=== PATIENT | female | born 1960 | race African-American/Black ===

== ENCOUNTER 2017-09-07 16:31 | Emergency (ER) | payer MEDICAID, SELFPAY ==
[2017-09-07 16:32] VITALS: BP 189/122; PULSE 77; RESP 16; TEMP 36.7; O2SAT 100; BMI 31.4
--- NOTE | 2017-09-07 17:07 | EKG12_ITS ---
Test Reason : Blood Pressure : / mmHG Vent. Rate : 069 BPM Atrial Rate : 069 BPM P-R Int : 176 ms QRS Dur : 080 ms QT Int : 416 ms P-R-T Axes : 063 007 052 degrees QTc Int : 445 ms Normal sinus rhythm Normal ECG Confirmed by ZONIA WOO, TO ([id number]), editorial specialist ROB BOWER ([id number]) on 09/10/2017 1:45:31 PM Referred By: CARMELA Confirmed By:TO BRAR MD
[2017-09-07 17:08] VITALS: BP 145/96
--- NOTE | 2017-09-07 17:11 | ED.DCSUM_ITS ---
- ER Visit Summary Date of Service: 09/07/17 Chief Complaint: Dehydrated and low iron History of Present Illness: The patient is a 57 F with history of iron deficiency anemia and chronic pain who presents complaining of dehydration and multiple complaints. She states that she has had fatigue, is seeing stars, having dry lips, dizzy and jittery, and had muscle spasm starting in her hands and radiating into the legs and pelvis. This occurred after she drink frazier juice while preparing for a urine drug test. She also changed her buprenorphine pain patch today that she uses for chronic pain. She denies any fever, chest pain, shortness of breath, nausea or vomiting. She thinks the symptoms are related to anemia. Physical Examination: Vital signs: afebrile, hemodynamically stable, no hypoxia on room air General: well nourished, well developed, in no distress speech is slow and mildly slurred Skin: warm, dry, no rash, no pallor HEENT: normocephalic and atraumatic; PERRL, EOMI, moist mucous membranes Cardiovascular: regular rate and rhythm without murmurs, no peripheral edema, 2 + pulses all distal extremities Respiratory: No increased work of breathing, lungs are clear to auscultation bilaterally, no rales, rhonchi or wheezing Abdominal: Abdomen is soft, nontender with normoactive bowel sounds, no guarding or rebound, no masses MSK: Moves all extremities, no deformities, normal strength Neuro: Awake and alert, oriented ?4. No facial droop, sensation and motor function intact and symmetric, no focal neuro deficits Test Results: Abnormal Lab Results 09/07/17 09/07/17 09/07/17 17:55 18:00 18:00 WBC 5.2 RBC 4.70 Hgb 13.1 Hct 39.1 MCV 83.2 MCH 27.9 MCHC 33.5 RDW 14.8 H RDW Differential 44.9 H Plt Count 220 MPV 9.8 Immature Gran % (Auto) 0.200 Neut % (Auto) 51.3 Lymph % (Auto) 39.7 [place] % (Auto) 7.5 Eos % (Auto) 1.1 Baso % (Auto) 0.2 Absolute Neuts (auto) 2.7 Absolute Lymphs (auto) 2.07 Total Counted Not Reportable Sodium 130 L Potassium 3.7 Chloride 98 Carbon Dioxide 24.0 Anion Gap 8 BUN 9 Creatinine 1.01 Estim Creat Clear Calc 57.53 Est GFR (MDRD) Af Amer 73 Est GFR (MDRD) Non-Af 60 BUN/Creatinine Ratio 8.9 L Glucose 109 H Calcium 9.1 Magnesium 1.9 Total Bilirubin 0.40 AST 19 ALT 22 Alkaline Phosphatase 141 H Troponin I < 0.02 Total Protein 7.3 Albumin 3.7 Globulin 3.6 Albumin/Globulin Ratio 1.0 TSH 0.76 Urine Color Urine Clarity Urine pH Ur Specific [place] Urine Protein Urine Glucose (UA) Urine Ketones Urine Occult Blood Urine Nitrite Urine Bilirubin Urine Urobilinogen Ur Leukocyte Esterase Urine RBC Urine WBC Ur Squamous Epith Cells Urine Bacteria Urine Mucus Urine Yeast Urine Opiates Screen Urine Methadone Screen Ur Barbiturates Screen Ur Phencyclidine Scrn Ur Amphetamines Screen U Methamphetamin-MDMA U Benzodiazepines Scrn Urine Cocaine Screen U Cannabinoids Screen Ur Drug Screen Comment POC Glucose 125 H 09/07/17 09/07/17 18:47 18:47 WBC RBC Hgb Hct MCV MCH MCHC RDW RDW Differential Plt Count MPV Immature Gran % (Auto) Neut % (Auto) Lymph % (Auto) [place] % (Auto) Eos % (Auto) Baso % (Auto) Absolute Neuts (auto) Absolute Lymphs (auto) Total Counted Sodium Potassium Chloride Carbon Dioxide Anion Gap BUN Creatinine Estim Creat Clear Calc Est GFR (MDRD) Af Amer Est GFR (MDRD) Non-Af BUN/Creatinine Ratio Glucose Calcium Magnesium Total Bilirubin AST ALT Alkaline Phosphatase Troponin I Total Protein Albumin Globulin Albumin/Globulin Ratio TSH Urine Color Yellow Urine Clarity Clear Urine pH 6.0 Ur Specific [place] 1.010 Urine Protein Negative Urine Glucose (UA) Normal Urine Ketones Negative Urine Occult Blood Negative Urine Nitrite Negative Urine Bilirubin Negative Urine Urobilinogen Normal Ur Leukocyte Esterase 25 H Urine RBC 0 SEEN Urine WBC 0-5 SEEN Ur Squamous Epith Cells 0-5 SEEN Urine Bacteria 0 SEEN Urine Mucus 0 SEEN Urine Yeast 1+ Urine Opiates Screen NEGATIVE Urine Methadone Screen NEGATIVE Ur Barbiturates Screen NEGATIVE Ur Phencyclidine Scrn NEGATIVE Ur Amphetamines Screen NEGATIVE U Methamphetamin-MDMA NEGATIVE U Benzodiazepines Scrn NEGATIVE Urine Cocaine Screen NEGATIVE U Cannabinoids Screen NEGATIVE Ur Drug Screen Comment POC Glucose Emergency Department Course and Treatment: Patient is presenting with multiple vague complaints. She was given IV hydration and had improvement in her symptoms. Labs showed mild hyponatremia but she did receive normal saline. No electrolyte derangements otherwise. No anemia. Urine was negative for infection and tox screen was negative. TSH within normal limits. EKG showed no ischemic changes and no ectopy. Troponin negative. Patient is on multiple pain medications for chronic pain, thus I suspect this is the cause of her slow speech. Patient was feeling much better on reevaluation after receiving the IV fluids and felt well enough to go home. She is to follow-up with her doctor. She had no episodes of muscle cramping while in the emergency department. Patient discharged home. Treatment Plan: [] Disposition: [] Impression: Muscle cramping, general malaise This note was generated with Lono dictation software. It may contain incorrect words, spelling, and punctuation that were not noted in review of the chart prior to signing ED Disposition - Plan for ED Patient: Disposition: Home or Assisted Living Chief Complaint: General Illness Instructions: ED Dehydration, ED Spasm Muscle Referrals: Ahmet Nielson MD [NON-STAFF] - 1-2 Days if not improving Additional Instructions: You were evaluated today in the emergency department because she felt dehydrated and had muscle cramps and spasms. Your workup showed no concerning findings, with your blood work being normal including your hemoglobin. There is no sign of anemia. Please drink plenty of fluids to stay hydrated. You may use ibuprofen or Tylenol as needed for pain and muscle cramps. Please return if you have any worsening of your symptoms. Follow-up with your doctor if you are not improving in 1-2 days.
[2017-09-07] MEDS: 0.9% Normal Saline 1,000 ML 1000 ML IV (17:59)
[2017-09-07 18:06] LABS: Bedside Glucose 125 mg/dL (70-110)
[2017-09-07 18:13] VITALS: RESP 16
[2017-09-07 18:13] LABS: Absolute Lymphocyte Count 2.07 X10^3/ul (0.83-4.51); Absolute Neutrophil Count 2.7 X10^3/uL (2.0-7.7); Basophil# 0.01 X10^3/uL; Basophil% 0.2 % (0-1); Eosinophil# 0.06 X10^3/uL; Eosinophils% 1.1 % (0-5); Hematocrit 39.1 % (37-47); Hemoglobin 13.1 g/dl (12.0-15.0); Lymphocyte # 2.07 X10^3/ul (4.0); Lymphocyte % 39.7 % (19-41); Mean Corp Hgb Conc 33.5 g/gl (32-36); Mean Corpuscular Hgb 27.9 pg (27.0-32.0); Mean Corpuscular Volume 83.2 fL (81-99); Mean Platelet Vol. 9.8 fl (6.2-12.0); Monocyte# 0.39 X10^3/uL; Monocyte% 7.5 % (0-10); Neutrophil # 2.68 X10^3/uL (2.7-7.7); Neutrophil % 51.3 % (47-70); POSITIVE COUNT NO; POSITIVE DIFFERENTIAL NO; POSITIVE MORPHOLOGY NO; Platelet Count 220 K/mm3 (150-450); RBC Distribution Width CV 14.8 % (11.6-14.6); RBC Distribution Width SD 44.9 fl (35.1-43.9); White Blood Count 5.2 K/mm3 (4.4-11.0)
[2017-09-07 18:52] LABS: AST(SGOT) 19 U/L (15-37); Alanine Aminotransfer ALT/SGPT 22 U/L (13-56); Albumin, Serum 3.7 g/dL (3.2-5.0); Alkaline Phosphatase 141 U/L (45-117); Anion Gap 8 (5-15); BUN 9 mg/dL (7-18); BUN/Creat Ratio 8.9 RATIO (10-20); Calcium,Total 9.1 mg/dL (8.5-10.1); Chloride 98 mmol/L (98-107); Creatinine, Serum 1.01 mg/dL (0.55-1.02); EST Glomerular Filtration Rate 60 mL/min (>60); Est Glom Filt Rate - Afr Amer 73 mL/min (>60); Estimated Creatinine Clearance 57.53 ml/min; Globulin 3.6 g/dL (2.2-4.2); Glucose 109 mg/dL (74-106); Magnesium 1.9 mg/dL (1.6-2.6); Potassium 3.7 mmol/L (3.5-5.1); Protein, Total 7.3 g/dL (6.4-8.2); Sodium Level 130 mmol/L (136-145); Thyroid Stim Hormone (TSH) 0.76 uIU/mL (0.358-3.74)
[2017-09-07 18:53] LABS: Bacteria 0 SEEN /hpf (None Seen); Mucous, Urine 0 SEEN /hpf (<or=2+); Red Blood Cells-Urine 0 SEEN /hpf (0-5)
[2017-09-07 18:56] LABS: Color, Urine Yellow (Yellow); Glucose, Dipstick Normal (Normal); Ketone-Dipstick Negative (Negative); Leukocyte Esterase-Dipstick 25 /ul (Negative); Nitrite-Dipstick Negative (Negative); Occult Blood-Urine Negative /ul (Negative); Protein-Dipstick Negative (Negative); Urine Bilirubin Dipstick Negative (Negative); Urine Clarity Clear (Clear); Urine Urobilinogen Normal (Normal)
[2017-09-07 19:07] LABS: Squamous Epithelial Cells - UA 0-5 SEEN /hpf (5-10)
[2017-09-07 19:09] LABS: White Blood Cells 0-5 SEEN /hpf (0-5); Yeast-Urine 1+ /hpf (None Seen)
[2017-09-07 19:15] LABS: Amphetamine Urine VISTA NEGATIVE (<1000 ng/mL); Barbiturate Urine VISTA NEGATIVE (< 200 ng/mL); Benzodiazepine Urine VISTA NEGATIVE (< 200 ng/mL); Cocaine Urine VISTA NEGATIVE (< 300 ng/mL); Ecstacy Urine VISTA NEGATIVE (< 500 ng/mL); Methadone Urine VISTA NEGATIVE (< 300 ng/mL); PCP Urine VISTA NEGATIVE (< 25 ng/mL); THC Urine VISTA NEGATIVE (< 50 ng/mL); Vista UDS pH Range 5
--- NOTE | 2017-09-07 19:52 | ED.DEP ---
ED Disposition - Plan for ED Patient: Disposition: Home or Assisted Living Chief Complaint: General Illness Instructions: ED Spasm Muscle, ED Dehydration Referrals: Ahmet Nielson MD [NON-STAFF] - 1-2 Days if not improving Additional Instructions: You were evaluated today in the emergency department because she felt dehydrated and had muscle cramps and spasms. Your workup showed no concerning findings, with your blood work being normal including your hemoglobin. There is no sign of anemia. Please drink plenty of fluids to stay hydrated. You may use ibuprofen or Tylenol as needed for pain and muscle cramps. Please return if you have any worsening of your symptoms. Follow-up with your doctor if you are not improving in 1-2 days.
[2017-09-07 20:03] VITALS: BP 133/86; PULSE 71; RESP 18; O2SAT 95
== END 2017-09-07 20:04 | disposition home or self-care (01) ==
PROVIDERS: Emergency Provider Emergency Medicine; Family Provider Family Medicine; PCP Family Medicine
DX: R25.2 Cramp and spasm (principal); R53.81 Other malaise; D50.9 Iron deficiency anemia, unspecified; E87.1 Hypo-osmolality and hyponatremia; G89.29 Other chronic pain; Z72.0 Tobacco use; Z79.899 Other long term (current) drug therapy
CPT/HCPCS: 80053; 80307; 81001; 82962; 83735; 84443; 84484; 85025; 93005; 96360; 96361; 99283; J7030; A4216

== ENCOUNTER 2017-10-11 14:00 | Outpatient (RCR) | payer MEDICAID, SELFPAY ==
--- NOTE | 2017-03-25 16:21 | HP.PTEVAL_ITS ---
Patient's Visit Information NORY GASTON is a 57 year old F referred to Physical Therapy by Minda Woods with a diagnosis of Degenerative Lumbar Spinal Stenosis. Date of Evaluation: 03/25/17 Physical Therapist: Aura Karimi, PT - Visit Plan Frequency: 2x /Week Duration: 5 weeks Plan: First session on land to trial strengthening exercises and TENS. Patient wants to pursue home TENS unit. Therapeutic exercises and activities to target BLE, core and low back strength. Exercises and activities also to target postural training, flexibility and endurance in an aquatic setting. Modalities/ Manual PRN. Incorporate HEP to promote independence and maintainence. - Subjective Subjective: Patient presents in therapy today with chief complaint of low back, right hip and knee pain that has been going on for years but pain has become constant that she decided to go doctor. States she always aches and pain never goes away. She states it is worse when she is standing or in a position too long. Reports numbness and tingling in bilateral feet, right > left. Patient recently passed out at [employer] from standing too long and hurt tailbone. Patient states she has gone to PT prior and loved pool therapy. She takes pain medication to help relieve the pain. She also saw chiropractor to help relieve pain but has discontinued. Had x-ray showing degeneration of spine. PMHx: Unremarkable - Pain low back Pain Intensity (Out of 10): 9 right hip Pain Intensity (Out of 10): 7 right knee Pain Intensity (Out of 10): 7 - Objective Posture: Sitting slouched in chair with increase posterior pelvic; Static standing weight shifted onto LLE. Palpation/Appearance: Tenderness to palpation along right medial knee, right hip at greater trochanter, tenderness to palpation along L4-L5 area. Range of Motion: lumbar flexion min limitation ( pain returning to neutral), mod limitation extension, bilateral side bend min limitation, bilateral rotation min limitation; BLE WNL except right knee 5-105 ( left 0-120*). Strength: Patient refuse to have MMT performed to RLE grossly 3/ 5 strength; LLE grossly 4+/5 strength except hip extension 4-/5 and hip abduction 4/5; core strength 3/5. Flexibility: Moderate tightness of bilateral hamstrings. Sensation: Intact to light touch. Patient adament on getting home TENS unit and having pool therapy. She did not want to perform various of evaluation tests and became frustrated toward end of session when told she would not be getting unit today. She did attempt repeated extension which she reported felt good and helped decrease pain - Goals Goal 1:: Patient will increase BLE and core strength by 1 muscle grade for improved performance with functional activities Goal Time Frame: 4-6 Weeks Goal 2:: Patient will increase painfree, lumbar motion in all planes for improved mobility Goal Time Frame: 4-6 Weeks Goal 3:: Patient will increase right knee ROM to match L for improved mobility Goal Time Frame: 4-6 Weeks Goal 4:: Patient will maintain upright sitting and standing posture for 3 minutes Goal Time Frame: 4-6 Weeks Goal 5:: Patient will be independent with HEP Goal Time Frame: 4-6 Weeks - Rehabilitation Potential Physical Therapy Diagnosis: Muscle Weakness, Limited Range of Motion, Impaired Mobility Rehabilitation Potential: Fair - Anticipated Interventions Patient/Client Instruction: Educate patient on: Condition, Plan of Care For the Purpose of:: To decrease pain, To decrease swelling/inflammation, To increase ROM, To improve muscle performance and motor function, To improve ability of physical actions for home/community/work/leisure, To improve gait and locomotor functions, To increase flexibility/ROM, To improve endurance, To improve balance Therapeutic Exercise to Include: Strength training, Endurance training, Body mechanics, Postural training, Flexibilty training, Gait and locomotor training, In an aquatic setting, Passive ROM, Active ROM, Dynamic Lumbar Stabilization For the Purpose of:: To increase ROM, To improve muscle performance and motor function, To improve ability of physical actions for home/community/work/leisure , To improve gait and locomotor functions, To increase flexibility/ROM, To improve endurance, To improve balance Functional Training to Include: ADL Training For the Purpose of:: To improve ability of physical actions for home/community/ work/leisure Comment: massage not covered For the Purpose of:: To decrease pain, To decrease swelling/inflammation, To increase ROM Iontophoresis (with Dexamethozone, with Acetic acid): No TENS: Yes For the Purpose of:: To decrease pain, To decrease swelling/inflammation, To increase ROM Thank you for the opportunity to evaluate your patient. For Medicare and Medicare HMO plans, please review the plan of care and approve it. It will need to be FAXED BACK to us at [phone] for Medicare purposes. Please let me know if there are questions or concerns regarding this plan of care. Physician Signature: Date:
--- NOTE | 2017-07-01 10:42 | HP.PTREVAL_ITS ---
Minda Woods, It has been my pleasure to treat NORY GASTON over the last 13 visits for Degenerative Lumbar Spinal Stenosis. Please see the progress note below for an update on the physical therapy plan of care! Subjective: Pt reports aquatic therapy is really helping her, but she has had some episodes of dizziness lately. Dr wants pt to be assessed for vestibular issues. Objective/Function: LBP and extremity pain have continued to decrease with the use of AT. Pt is able to stand and sit for longer periods of time now with out having to change positions. B LE strength is rated at 4+/5 throughout. L/S ROM is still moderately limited. Pt is progressing well with increasing functional activity, but is still limited by pain Plan Plan: Assess vestibular system per . orders next Rx Goals Goal 1:: Patient will increase BLE and core strength by 1 muscle grade for improved performance with functional activities Goal Time Frame: 4-6 Weeks Goal Progress: Progressing Goal 2:: Patient will increase painfree, lumbar motion in all planes for improved mobility Goal Time Frame: 4-6 Weeks Goal Progress: Progressing Goal 3:: Patient will increase right knee ROM to match L for improved mobility Goal Time Frame: 4-6 Weeks Goal Progress: Progressing Goal 4:: Patient will maintain upright sitting and standing posture for 3 minutes Goal Time Frame: 4-6 Weeks Goal Progress: Progressing Goal 5:: Patient will be independent with HEP Goal Time Frame: 4-6 Weeks Goal Progress: Progressing Anticipated Interventions Patient/Client Instruction: Educate patient on: Condition, Plan of Care For the Purpose of:: To decrease pain, To decrease swelling/inflammation, To increase ROM, To improve muscle performance and motor function, To improve ability of physical actions for home/community/work/leisure, To improve gait and locomotor functions, To increase flexibility/ROM, To improve endurance, To improve balance Therapeutic Exercise to Include: Strength training, Endurance training, Body mechanics, Postural training, Flexibilty training, Gait and locomotor training, In an aquatic setting, Passive ROM, Active ROM, Dynamic Lumbar Stabilization For the Purpose of:: To increase ROM, To improve muscle performance and motor function, To improve ability of physical actions for home/community/work/leisure , To improve gait and locomotor functions, To increase flexibility/ROM, To improve endurance, To improve balance Functional Training to Include: ADL Training For the Purpose of:: To improve ability of physical actions for home/community/ work/leisure Comment: massage not covered For the Purpose of:: To decrease pain, To decrease swelling/inflammation, To increase ROM Iontophoresis (with Dexamethozone, with Acetic acid): No TENS: Yes For the Purpose of:: To decrease pain, To decrease swelling/inflammation, To increase ROM Please do not hesitate to contact me at [phone] by phone or Fax: if you have questions or concerns regarding this new plan of care! Sincerely, Gray Pacheco, PT,
--- NOTE | 2017-07-21 09:48 | HP.PTREVAL_ITS ---
Minda Woods, It has been my pleasure to treat NORY GASTON over the last 14 visits for Degenerative Lumbar Spinal Stenosis. Please see the progress note below for an update on the physical therapy plan of care! Subjective: new script received for dizzyness. Has h/o dizzy and passing out but this is different. This dizzyness is spacey. This is a levitation dizzyness, not a passing out. It occurs sitting and has been happeneing for 3 months and started without reason. Had blood tests which were OK. Had MRI of brain which was OK. Does not describe spinning but whooa It lasts for seconds to minutes. When it goes away, it is gone but can be off balance for a little while. Hard to tell what precipitates it. Is anemic and can pass out at times. This dizzyness happens daily 2-3 x or 1-2x week. Can happen when she is just sitting on the couch doing nothing. Needs to sit down when it happens. Has not fallen in over a year. Has cane and walker but does nto use it all the time, she can tell when she needs it. Sleep: is OK as far as dizzyness goes, has insomnia and takes meds. Not employed but takes care of 5 yo grandson. Dizzyness can make this challenging at times. Objective/Function: Pt ambulates into PT slow but I, transfers I, steps are reciprocal with two rails and slow. C/S AROM is WFL and no c/o pain. pt is slow to answer and respond to commands. - B hallpike and - roll test. Oculomotor: no nystagmus with gaze or headshake. pursuit, saccades adn vOR all appear christal, albeit slow VOR before VC but no symptoms. - head thrust. VOR walking is safe and I. Plan Plan: No vestibular PT needed. Pt wishes to take Alberto off and reinitiate approp therapy(and will recheck with) Gray for pool or land instruction. Goals Goal 1:: Patient will increase BLE and core strength by 1 muscle grade for improved performance with functional activities Goal Time Frame: 4-6 Weeks Goal Progress: Progressing Goal 2:: Patient will increase painfree, lumbar motion in all planes for improved mobility Goal Time Frame: 4-6 Weeks Goal Progress: Progressing Goal 3:: Patient will increase right knee ROM to match L for improved mobility Goal Time Frame: 4-6 Weeks Goal Progress: Progressing Goal 4:: Patient will maintain upright sitting and standing posture for 3 minutes Goal Time Frame: 4-6 Weeks Goal Progress: Progressing Goal 5:: Patient will be independent with HEP Goal Time Frame: 4-6 Weeks Goal Progress: Progressing Anticipated Interventions Patient/Client Instruction: Educate patient on: Condition, Plan of Care For the Purpose of:: To decrease pain, To decrease swelling/inflammation, To increase ROM, To improve muscle performance and motor function, To improve ability of physical actions for home/community/work/leisure, To improve gait and locomotor functions, To increase flexibility/ROM, To improve endurance, To improve balance Therapeutic Exercise to Include: Strength training, Endurance training, Body mechanics, Postural training, Flexibilty training, Gait and locomotor training, In an aquatic setting, Passive ROM, Active ROM, Dynamic Lumbar Stabilization For the Purpose of:: To increase ROM, To improve muscle performance and motor function, To improve ability of physical actions for home/community/work/leisure , To improve gait and locomotor functions, To increase flexibility/ROM, To improve endurance, To improve balance Functional Training to Include: ADL Training For the Purpose of:: To improve ability of physical actions for home/community/ work/leisure Comment: massage not covered For the Purpose of:: To decrease pain, To decrease swelling/inflammation, To increase ROM Iontophoresis (with Dexamethozone, with Acetic acid): No TENS: Yes For the Purpose of:: To decrease pain, To decrease swelling/inflammation, To increase ROM Please do not hesitate to contact me at [phone] by phone or Fax: if you have questions or concerns regarding this new plan of care! Sincerely, Randall Stephen, DPT, OC
--- NOTE | 2017-11-03 14:45 | HP.PTDCNRP_ITS ---
HP - Discharge Summary (1) - Patient Information NORY GASTON was seen in my office for initial evaluation on 03/25/17. The following Plan of Care was established for this patient: Initial Frequency: 2x /Week Initial Duration: 5 weeks - Anticipated Interventions Patient/Client Instruction: Educate patient on: Condition, Plan of Care For the Purpose of:: To decrease pain, To decrease swelling/inflammation, To increase ROM, To improve muscle performance and motor function, To improve ability of physical actions for home/community/work/leisure, To improve gait and locomotor functions, To increase flexibility/ROM, To improve endurance, To improve balance Therapeutic Exercise to Include: Strength training, Endurance training, Body mechanics, Postural training, Flexibilty training, Gait and locomotor training, In an aquatic setting, Passive ROM, Active ROM, Dynamic Lumbar Stabilization For the Purpose of:: To increase ROM, To improve muscle performance and motor function, To improve ability of physical actions for home/community/work/leisure , To improve gait and locomotor functions, To increase flexibility/ROM, To improve endurance, To improve balance Functional Training to Include: ADL Training For the Purpose of:: To improve ability of physical actions for home/community/ work/leisure Comment: massage not covered For the Purpose of:: To decrease pain, To decrease swelling/inflammation, To increase ROM Iontophoresis (with Dexamethozone, with Acetic acid): No TENS: Yes For the Purpose of:: To decrease pain, To decrease swelling/inflammation, To increase ROM This patient was last seen in our office . Pertinent comments regarding their Physical therapy will appear below: Pt was treated for 18 visits through the date of 10/11/17. Pt has not returned through todays date, and is therefore discontinued at this time. At this point I will be discontinuing this patient from physical therapy. I would be happy to see this patient again in the future if found appropriate by the physician. Thank you! Gray Pacheco, PT,
== END 2017-10-11 19:00 | disposition home or self-care (01) ==
LOC: PT 14:00
PROVIDERS: Family Provider Family Medicine; PCP Family Medicine; Visit Provider Family Medicine
DX: M48.061 Spinal stenosis, lumbar region without neurogenic claudication (principal); R42 Dizziness and giddiness
CPT/HCPCS: 97113; 97161; 97530; G8978; G8979

== ENCOUNTER → 2018-03-07 13:00 | Outpatient (CLI) | payer MEDICARE, MEDICAID, SELFPAY ==
[2018-03-07 13:58] LABS: Hematocrit 43.5 % (37-47); Hemoglobin 14.5 g/dl (12.0-15.0); Mean Corp Hgb Conc 33.3 g/gl (32-36); Mean Corpuscular Hgb 28.4 pg (27.0-32.0); Mean Corpuscular Volume 85.3 fL (81-99); Platelet Count 277 K/mm3 (150-450); RBC Distribution Width CV 15.6 % (11.6-14.6); RBC Distribution Width SD 48.8 fl (35.1-43.9); White Blood Count 4.2 K/mm3 (4.4-11.0)
[2018-03-07 14:10] LABS: Scan Indicated on CBC? Y/N NO
[2018-03-07 14:43] LABS: Vitamin B12 898 pg/mL (211-911)
[2018-03-07 14:50] LABS: Iron 84 ug/dL (50-170); Iron Binding Capacity,Total 377 ug/dL (250-450)
== END ==
PROVIDERS: Family Provider Nurse Practitioner Primary Care; PCP Nurse Practitioner Primary Care; Visit Provider Nurse Practitioner Primary Care
DX: D50.9 Iron deficiency anemia, unspecified (principal); E53.8 Deficiency of other specified B group vitamins; Z98.84 Bariatric surgery status
CPT/HCPCS: 36415; 82607; 82746; 83540; 83550; 85027

== ENCOUNTER → 2018-03-23 08:42 | Outpatient (CLI) | payer MEDICARE, MEDICAID, SELFPAY | PROVIDERS: Family Provider Nurse Practitioner Primary Care; PCP Nurse Practitioner Primary Care; Visit Provider Internal Medicine Gastroenterology | DX: R10.9 Unspecified abdominal pain (principal); K59.00 Constipation, unspecified | CPT/HCPCS: 74019 ==

== ENCOUNTER → 2018-04-21 15:53 | Outpatient (CLI) | payer MEDICARE, SELFPAY | PROVIDERS: Family Provider Nurse Practitioner Primary Care; PCP Nurse Practitioner Primary Care; Visit Provider Anesthesiology Pain Medicine | DX: F11.20 Opioid dependence, uncomplicated (principal) | CPT/HCPCS: 36415 ==

== ENCOUNTER → 2018-05-19 12:00 | Outpatient (CLI) | payer MEDICARE, SELFPAY ==
[2018-05-19 13:49] LABS: Iron Binding Capacity,Total 307 ug/dL (250-450)
[2018-05-19 14:16] LABS: Vitamin D,25 Hydroxy 51.2 ng/mL (29.95-100.01)
== END ==
PROVIDERS: Family Provider Nurse Practitioner Primary Care; PCP Nurse Practitioner Primary Care
DX: D50.9 Iron deficiency anemia, unspecified (principal); E55.9 Vitamin D deficiency, unspecified; Z98.84 Bariatric surgery status
CPT/HCPCS: 36415; 82306; 83550

== ENCOUNTER → 2019-02-20 08:59 | Outpatient (CLI) | payer MEDICARE, SELFPAY ==
[2019-02-20 08:55] VITALS: BMI 31.4
--- NOTE | 2019-02-20 09:00 | RAD_ITS ---
STUDY: X-RAY - RIGHT KNEE REASON FOR EXAM: Female, 59 years old. Pain, decreased range of motion TECHNIQUE: 4 view(s) of the knee. COMPARISON: None. FINDINGS: There is demineralization of the visualized distal femur. There is demineralization of the tibia and fibula. Normal proximal tibiofibular articulation. There is mild degenerative arthrosis of the medial femorotibial compartment. There is moderate degenerative arthrosis of the lateral femorotibial compartment with moderate joint space narrowing. There is mild degenerative arthrosis of the patellofemoral articulation. Nonspecific medial soft tissue swelling RAD/Knee 4 or More Views IMPRESSION: Degenerative arthrosis with medial soft tissue swelling no demonstrated fracture. Electronically Signed: Endy Jay MD at 9:27 EDT , Service support ,
--- NOTE | 2019-02-20 09:00 | RAD_ITS ---
STUDY: X-RAY - LEFT KNEE REASON FOR EXAM: Female, 59 years old. Pain, decreased range of motion TECHNIQUE: 3 view(s) of the knee. COMPARISON: None. FINDINGS: Normal visualized distal femur. Normal visualized proximal tibia and fibula. Normal proximal tibiofibular articulation. There is mild degenerative arthrosis of the medial femorotibial compartment. There is mild degenerative arthrosis of the lateral femorotibial compartment. There is mild degenerative arthrosis of the patellofemoral articulation. The soft tissue structures are unremarkable. RAD/Knee 4 or More Views IMPRESSION: Degenerative arthrosis. Electronically Signed: Endy Jay MD at 9:29 EDT , Service support ,
== END ==
PROVIDERS: Family Provider Nurse Practitioner Primary Care; PCP Nurse Practitioner Primary Care; Referring Provider Orthopaedic Surgery; Visit Provider Orthopaedic Surgery
DX: M25.561 Pain in right knee (principal); M25.562 Pain in left knee
CPT/HCPCS: 73564

== ENCOUNTER 2019-06-12 09:28 | Emergency (ER) | payer MEDICARE, MEDICAID, SELFPAY ==
[2019-02-20 08:55] VITALS: BMI 31.4
[2019-06-12 09:29] VITALS: BP 137/102; PULSE 109; RESP 18; TEMP 36.8; O2SAT 97; BMI 26.9
--- NOTE | 2019-06-12 09:59 | EKG12_ITS ---
Test Reason : SOB Blood Pressure : / mmHG Vent. Rate : 099 BPM Atrial Rate : 099 BPM P-R Int : 138 ms QRS Dur : 070 ms QT Int : 350 ms P-R-T Axes : 077 048 068 degrees QTc Int : 449 ms Normal sinus rhythm Possible Left atrial enlargement Borderline ECG Confirmed by DORIS WOO, FADUMO ([id number]), assistant production editor THALIA SPRINGER ([id number]) on 06/13/2019 1:51:28 PM Referred By: ROLY Confirmed By:FADUMO GEORGE MD
[2019-06-12 10:26] LABS: Absolute Lymphocyte Count 2.72 X10^3/uL (0.83-4.51); Absolute Neutrophil Count 3.8 X10^3/uL (2.0-7.7); Basophil# 0.05 X10^3/uL; Basophil% 0.7 % (0-1); Eosinophil# 0.12 X10^3/uL; Eosinophils% 1.6 % (0-5); Hematocrit 35.1 % (37-47); Lymphocyte # 2.72 X10^3/ul (4.0); Mean Corp Hgb Conc 31.3 g/dL (32-36); Mean Corpuscular Hgb 24.4 pg (27.0-32.0); Mean Platelet Vol. 9.3 fl (6.2-12.0); Monocyte# 0.66 X10^3/uL; NRBC Flagged by Analyzer 0 % (0-5); Neutrophil # 3.76 X10^3/uL (2.7-7.7); Neutrophil % 51.2 % (47-70); Platelet Count 313 K/mm3 (150-450); RBC Distribution Width SD 53.5 fl (35.1-43.9); White Blood Count 7.4 K/mm3 (4.4-11.0)
--- NOTE | 2019-06-12 10:26 | ED.VISSUMM ---
- ER Visit Summary Date of Service: 06/12/19 Chief Complaint: Black stools History of Present Illness: The patient is a 59 F who states she has a history of peptic ulcer disease. She had prior Dillon-en-Y gastric bypass surgery. She tells me that 3 days ago she had a normal brown bowel movement. Yesterday she had a formed movement that was black. She did not think much about it but then today while eating breakfast she had urgency went to the bathroom and had black tarry stool. She took a picture of it which appears to be more of a diarrheal stool than tarry. She states that she has been feeling fatigued and more short of breath than normal. She used to see a chamber worker at [place] but has not now for some time. Physical Examination: Afebrile vital signs are stable. Noted heart rate in triage on my examination 89. Gen: Well-nourished well-developed Head: Normocephalic atraumatic Eyes: Perrl EOMI ENT: TMs clear no rhinorrhea moist mucous membranes Neck: Supple no lymphadenopathy no JVD nontender CVS: Regular rate tachycardic rhythm no murmurs normal S1-S2 Respiratory: No distress clear to auscultation bilaterally chest nontender Abdomen: Soft nontender nondistended normal bowel sounds no masses Back: Nontender Extremity: Nontender no edema Skin: Normal color no rash Neuro: alert orientated ?3 CN II-XII intact normal strength sensation reflexes gait cerebellar Psych: Normal affect normal mood Test Results: EKG showed a sinus rhythm at a rate of 99. This does not appear unchanged from September 2017. Hemoglobin level is 11. BUN 24 creatinine 1.07. Normal coags. Troponin negative lactic acid 1.7. Emergency Department Course and Treatment: Orthostatics were negative. Stool was positive for blood. She said no bowel movement she is been here. She cannot tell me her medications. She cannot tell me when the last time she had blood work drawn was. She cannot tell me who her current doctor is but she tells me whoever that she does not want to go back and see them. I was able to find that approximately a month ago she was seen at [facility] and saw Dr. Pfeiffer. At that point she was on Protonix but not Carafate. As she most likely has an upper GI bleed she does appear stable with no need for transfusion and normal vital signs. I will add in Carafate asked that she have her hemoglobin level checked in [address] Valiente is asked on no doc list. Impression: 1. Stable upper GI bleed This note was generated with [employer] dictation software. It may contain incorrect words, spelling, and punctuation that were not noted in review of the chart prior to signing ED Disposition - Plan for ED Patient: Disposition: Home or Assisted Living Instructions: GI BLEED, Upper (Stable) Prescriptions: Sucralfate [Carafate] 1 gm PO 4X/DAY #56 tab Prescription Printed Referrals: Lisa Valiente DO [STAFF PHYSICIAN] - 2 Days Additional Instructions: You should have your hemoglobin level rechecked in 48 hours.
[2019-06-12] MEDS: 0.9% Normal Saline 1,000 ML 1000 ML IV (10:29)
[2019-06-12 10:43] LABS: AST(SGOT) 34 U/L (15-37); Alanine Aminotransfer ALT/SGPT 21 U/L (13-56); Albumin, Serum 3.3 g/dL (3.2-5.0); Alkaline Phosphatase 82 U/L (45-117); Anion Gap 7 (5-15); BUN 24 mg/dL (7-18); BUN/Creat Ratio 22.4 RATIO (10-20); Bilirubin, Direct 0.06 mg/dL (0.00-0.30); Calcium,Total 9.2 mg/dL (8.5-10.1); Chloride 108 mmol/L (98-107); Creatinine, Serum 1.07 mg/dL (0.55-1.02); EST Glomerular Filtration Rate 56 mL/min (>60); Est Glom Filt Rate - Afr Amer 67 mL/min (>60); Glucose 71 mg/dL (74-106); Lipase 126 U/L (73-393); Potassium 5.3 mmol/L (3.5-5.1); Protein, Total 7.3 g/dL (6.4-8.2); Sodium Level 137 mmol/L (136-145)
[2019-06-12 10:45] LABS: Lactic Acid 1.7 mmol/L (0.4-2.0)
[2019-06-12 11:21] LABS: International Normalized Ratio 1.1; Prothrombin Time (Protime)PT. 13.5 SECONDS (11.7-14.9)
[2019-06-12 11:29] VITALS: BP 115/89; PULSE 73; RESP 16; O2SAT 98
[2019-06-12 11:41] VITALS: BP 116/87; BP 122/96; BP 126/111; PULSE 105; PULSE 83; PULSE 93
[2019-06-12 12:51] VITALS: BP 137/66; PULSE 59; RESP 16; O2SAT 97
== END 2019-06-12 12:52 | disposition home or self-care (01) ==
PROVIDERS: Emergency Provider Emergency Medicine
DX: K92.2 Gastrointestinal hemorrhage, unspecified (principal); R06.02 Shortness of breath; R53.83 Other fatigue; I10 Essential (primary) hypertension; K21.9 Gastro-esophageal reflux disease without esophagitis; Z72.0 Tobacco use; Z79.899 Other long term (current) drug therapy; Z87.11 Personal history of peptic ulcer disease; Z98.84 Bariatric surgery status
CPT/HCPCS: 36415; 80048; 80076; 82274; 83605; 83690; 84484; 85025; 85610; 85730; 93005; 96360; 96361; 99285; J7030; A4216

== ENCOUNTER → 2019-07-05 12:55 | Outpatient (CLI) | payer MEDICARE, SELFPAY ==
[2019-06-12 09:29] VITALS: BMI 26.9
[2019-07-05 14:06] LABS: Absolute Lymphocyte Count 2.21 X10^3/uL (0.83-4.51); Absolute Neutrophil Count 1.4 X10^3/uL (2.0-7.7); Basophil# 0.03 X10^3/uL; Basophil% 0.7 % (0-1); Eosinophil# 0.24 X10^3/uL; Eosinophils% 5.6 % (0-5); Hemoglobin 11.1 g/dL (12.0-15.0); Lymphocyte # 2.21 X10^3/ul (4.0); Mean Corpuscular Hgb 23.4 pg (27.0-32.0); Mean Corpuscular Volume 77.9 fL (81-99); Mean Platelet Vol. 9.5 fl (6.2-12.0); Monocyte# 0.32 X10^3/uL; Monocyte% 7.5 % (0-10); NRBC Flagged by Analyzer 0 % (0-5); Neutrophil # 1.44 X10^3/uL (2.7-7.7); POSITIVE MORPHOLOGY YES; Platelet Count 327 K/mm3 (150-450); RBC Distribution Width CV 20.2 % (11.6-14.6); RBC Distribution Width SD 55.4 fl (35.1-43.9); Red Blood Count 4.75 M/mm3 (4.2-5.4); White Blood Count 4.3 K/mm3 (4.4-11.0)
[2019-07-05 14:08] LABS: Differential Indicated SCAN CRITERIA MET
[2019-07-05 14:31] LABS: Anisocytosis 1+
[2019-07-05 14:33] LABS: ALB/GLOB Ratio 1.1 RATIO (0.9-2.4); AST(SGOT) 14 U/L (15-37); Alanine Aminotransfer ALT/SGPT 17 U/L (13-56); Albumin, Serum 3.5 g/dL (3.2-5.0); Alkaline Phosphatase 99 U/L (45-117); Anion Gap 5 (5-15); BUN 10 mg/dL (7-18); BUN/Creat Ratio 10.9 RATIO (10-20); Calcium,Total 9.3 mg/dL (8.5-10.1); Chloride 109 mmol/L (98-107); Creatinine, Serum 0.92 mg/dL (0.55-1.02); EST Glomerular Filtration Rate 67 mL/min (>60); Est Glom Filt Rate - Afr Amer 80 mL/min (>60); Ferritin 8 ng/mL (8-252); Free T3 2.6 pg/mL (2.18-3.98); Globulin 3.3 g/dL (2.2-4.2); Glucose 83 mg/dL (74-106); Iron 20 ug/dL (50-170); Protein, Total 6.8 g/dL (6.4-8.2); Sodium Level 141 mmol/L (136-145); T4 Free Direct 1.12 ng/dL (0.76-1.46); Thyroid Stim Hormone (TSH) 0.93 uIU/mL (0.358-3.74)
[2019-07-05 14:43] LABS: Vitamin D,25 Hydroxy 86.6 ng/mL (29.95-100.01)
[2019-07-10 16:29] LABS: T3 Reverse 13.9 ng/dL (9.2-24.1)
== END ==
PROVIDERS: Referring Provider Psychiatry & Neurology Psychiatry; Visit Provider Psychiatry & Neurology Psychiatry
DX: F41.1 Generalized anxiety disorder (principal); Z79.899 Other long term (current) drug therapy
CPT/HCPCS: 36415; 80053; 82306; 82728; 83540; 83735; 84439; 84443; 84481; 84482; 85025

== ENCOUNTER → 2019-08-14 13:00 | Outpatient (CLI) | payer MEDICARE, SELFPAY ==
[2019-07-24 12:04] VITALS: BMI 25.3
[2019-08-14 14:35] LABS: Amphetamine Urine VISTA POSITIVE (<1000 ng/mL); Barbiturate Urine VISTA NEGATIVE (< 200 ng/mL); Benzodiazepine Urine VISTA POSITIVE (< 200 ng/mL); Cocaine Urine VISTA NEGATIVE (< 300 ng/mL); Ecstacy Urine VISTA NEGATIVE (< 500 ng/mL); Methadone Urine VISTA NEGATIVE (< 300 ng/mL); PCP Urine VISTA NEGATIVE (< 25 ng/mL); THC Urine VISTA NEGATIVE (< 50 ng/mL); Vista UDS pH Range 6
== END ==
PROVIDERS: Referring Provider Anesthesiology Pain Medicine; Visit Provider Anesthesiology Pain Medicine
DX: F11.20 Opioid dependence, uncomplicated (principal)
CPT/HCPCS: 80307

== ENCOUNTER → 2020-01-01 12:15 | Outpatient (CLI) | payer MEDICARE, MEDICAID, SELFPAY ==
[2019-09-07 08:44] VITALS: BMI 27.2
--- NOTE | 2020-01-01 12:44 | RAD_ITS ---
STUDY: X-RAY - LEFT SHOULDER REASON FOR EXAM: Female, 59 years old. LEFT SHOULDER PAIN -- PT STATES PREVIOUS CLAVICLE FRACTURE AND SHOULDER DISLOCATION -- CONTINUED PAIN, LIMITED ROM TECHNIQUE: 3 view(s) of the shoulder on 4 images. COMPARISON: None. FINDINGS: Normal glenohumeral articulation. Normal acromioclavicular joint. Normal acromion. Mild, well-corticated focal depression at the lateral humeral head near the greater tuberosity may be an old impaction injury. Normal visualized proximal humerus. The soft tissue structures are unremarkable. There is no demonstrated osseous destructive lesion or acute fracture. Normal visualized pulmonary apex. RAD/Shoulder min 2 Views IMPRESSION: Possible old impaction injury at the lateral left humeral head. No acute osseous abnormality of the left shoulder. Electronically Signed: Endy Jerome MD at 18:58 EDT , Service support ,
== END ==
PROVIDERS: Visit Provider Anesthesiology Pain Medicine
DX: M25.512 Pain in left shoulder (principal)
CPT/HCPCS: 73030

== ENCOUNTER → 2020-05-28 09:43 | Outpatient (CLI) | payer MEDICARE, MEDICAID, SELFPAY ==
[2020-05-20 09:25] VITALS: BMI 29.8
[2020-05-28 11:05] LABS: Amphetamine Urine VISTA NEGATIVE (<1000 ng/mL); Barbiturate Urine VISTA NEGATIVE (< 200 ng/mL); Benzodiazepine Urine VISTA NEGATIVE (< 200 ng/mL); Cocaine Urine VISTA NEGATIVE (< 300 ng/mL); Ecstacy Urine VISTA NEGATIVE (< 500 ng/mL); Methadone Urine VISTA NEGATIVE (< 300 ng/mL); PCP Urine VISTA NEGATIVE (< 25 ng/mL); THC Urine VISTA NEGATIVE (< 50 ng/mL); Vista UDS pH Range 6
== END ==
PROVIDERS: PCP Internal Medicine; Referring Provider Anesthesiology Pain Medicine; Visit Provider Anesthesiology Pain Medicine
DX: F11.20 Opioid dependence, uncomplicated (principal)
CPT/HCPCS: 80307

== ENCOUNTER → 2020-05-30 08:38 | Outpatient (CLI) | payer MEDICARE, MEDICAID, SELFPAY ==
[2020-05-20 09:25] VITALS: BMI 29.8
--- NOTE | 2020-05-30 08:40 | RAD_ITS ---
PROCEDURE: SMALL BOWEL SERIES DATE OF EXAMINATION: 05/30/2020. INDICATION: Female, 60 years old. Abdominal pain and bloating. History of prior gastric bypass surgery. PHYSICIAN: Javad Del Cid M.D. FLUOROSCOPY TIME (if supplied): (0:34) minutes/seconds. 5 fluoroscopic images were obtained. TECHNIQUE: Radiographic and fluoroscopic images were taken of the small intestine following the ingestion of barium. COMPARISON: None. FINDINGS: A preliminary supine KUB was obtained. There is an unremarkable bowel gas pattern. A large amount of fecal material is present throughout the colon. Phleboliths are present within the pelvis. The lung bases are unremarkable. Degenerative changes of the lumbar spine. The patient orally ingested approximately 12 ounces of thin barium Normal visualized fundus, body, and antrum of the stomach. Normal duodenal bulb, C-loop, and proximal jejunum. Normal visualized mucosal folds of the jejunum and ileum. There are no demonstrated dilatations, strictures, or masses of the small intestine. There is no mass displacement of the loops of small intestine. There is a normal motor pattern with barium reaching the colon within approximately 90 minutes. Spot films under fluoroscopic observation demonstrated a normal terminal ileum and ileocecal valve. RAD/Small Bowel Series Only IMPRESSION: Normal small bowel series. Electronically Signed: Javad Del Cid, at 11:10 EDT , Service support ,
== END ==
PROVIDERS: PCP Internal Medicine; Referring Provider Internal Medicine Gastroenterology; Visit Provider Internal Medicine Gastroenterology
DX: R10.9 Unspecified abdominal pain (principal); Z98.84 Bariatric surgery status
CPT/HCPCS: 74250

== ENCOUNTER → 2020-06-05 09:19 | Outpatient (CLI) | payer MEDICARE, MEDICAID, SELFPAY ==
[2020-06-05 08:41] VITALS: BMI 31.1
[2020-06-05 12:35] LABS: Cholesterol 212 mg/dL (200); High Density Lipoprotein 109 mg/dL; Triglycerides 109 mg/dL; Very Low Density Lipoprotein 22 mg/dL (5-40)
[2020-06-06 13:59] LABS: Vitamin D,25 Hydroxy 44.1 ng/mL
== END ==
PROVIDERS: PCP Internal Medicine; Referring Provider Internal Medicine; Visit Provider Internal Medicine
DX: I10 Essential (primary) hypertension (principal); K91.2 Postsurgical malabsorption, not elsewhere classified
CPT/HCPCS: 36415; 80061; 82306

== ENCOUNTER → 2020-07-05 21:07 | Outpatient (CLI) | payer MEDICARE, MEDICAID, SELFPAY ==
[2020-06-05 08:41] VITALS: BMI 31.1
== END ==
PROVIDERS: PCP Internal Medicine; Visit Provider Internal Medicine
DX: G47.10 Hypersomnia, unspecified (principal); G47.33 Obstructive sleep apnea (adult) (pediatric)
CPT/HCPCS: 95810

== ENCOUNTER 2020-07-30 09:30 | Emergency (ER) | payer MEDICARE, MEDICAID, SELFPAY ==
[2020-07-30 09:31] VITALS: BP 161/94; PULSE 89; RESP 16; TEMP 37.1; O2SAT 97; BMI 28.2
--- NOTE | 2020-07-30 09:42 | EKG12_ITS ---
Test Reason : CP Blood Pressure : / mmHG Vent. Rate : 077 BPM Atrial Rate : 077 BPM P-R Int : 132 ms QRS Dur : 068 ms QT Int : 388 ms P-R-T Axes : 054 001 055 degrees QTc Int : 439 ms Normal sinus rhythm with sinus arrhythmia Normal ECG Confirmed by TERRANCE WOO, JULIO ([id number]), scientific editor ANAT GONZALEZ ([id number]) on 08/05/2020 9:20:19 AM Referred By: CELINE Confirmed By:MAGEN CARLOS MD
--- NOTE | 2020-07-30 09:53 | ED.VIS.GEN ---
History of Present Illness Chief Complaint: Chest Pain Informant: Patient Narrative: Patient is a 60-year-old female who presents to the emergency department for left-sided chest pain. Is been present over the past 3 days becoming more constant. She does not know aggravating or relieving factors. The pain has gone up to her left shoulder which made her concerned. She did have a similar pain 2 weeks ago but went away on its own. She tried taking her usual medications including for GERD but this did not give her any relief. Denies coughing. No associated shortness of breath. She denies any leg swelling past her baseline. No calf pain. She denies any history of CAD, DVT/PE. She does have a family history of cardiac disease as her dad in his 70s from heart attack. She is a current everyday smoker. Past Medical History - Allergies and Home Meds Allergies/Adverse Reactions: Allergies buprenorphine [From Butrans] Allergy (Verified 07/30/20 09:34) Rash NSAIDS (Non-Steroidal Anti-Inflamma Adverse Reaction (Verified 07/30/20 09:34) Nausea Primary Care Physician: Mary Ann Fofana MD [Primary Care Provider] - 1 Day Prior records reviewed: Yes Past Medical History: - - Hypertension, anemia Surgical History: gastric bypass Smoking Status: Light Smoker (<10/day) - Family History Maternal Family History: Family History (Last Updated 05/20/20 @ 09:34 by Trinity Meyer) Father Myocardial infarction Alcohol abuse Mother CVA (cerebral vascular accident) Hypertension Thrombosis Alcohol abuse Sister Lupus Family History: Reports: Hypertension Paternal Family History: Family History (Last Updated 05/20/20 @ 09:34 by Trinity Meyer) Father Myocardial infarction Alcohol abuse Mother CVA (cerebral vascular accident) Hypertension Thrombosis Alcohol abuse Sister Lupus Family History: Reports: Heart Disease Review of Systems All systems negative except as indicated General: Denies: Chills, Fever, Sweats Eyes: Denies: Visual changes - bilaterally, Diplopia ENT: Denies: Rhinorrhea, Sore throat Cardiovascular: Reports: Chest pain. Denies: Palpitations Respiratory: Denies: Dyspnea, Cough, Dyspnea on exertion Gastrointestinal: Denies: Abdominal pain, Nausea, Vomiting, Diarrhea, Melena, Hematochezia Genitourinary: Denies: Dysuria, Hematuria, Frequency Musculoskeletal: Denies: Back pain, Extremity Pain Skin: Denies: Rash, Wounds Neurological: Denies: Headache, Weakness, Numbness Physical Exam Vital Signs/Narrative: Vital Signs Temp Pulse Resp BP Pulse Ox 07/30/20 09:31 98.8 F 89 16 161/94 H 97 Inital Vital Signs reviewed: Yes General: Well nourished, Well developed, No Acute Distress Head: Normocephalic, Atraumatic Eyes: Perrl, EOMI ENT: Moist mucous membranes, No rhinorrhea Neck: Supple, Nontender Cardiovascular: Regular rate, Regular rhythm, No murmurs Respiratory: No distress, CTA bilaterally, Chest tenderness - Reproducible over the spot that is hurting over the left chest wall. Abdomen: Soft, Nontender, Nondistended, Normal bowel sounds Back: Nontender, Normal Inspection Extremities: Nontender, No edema. Negative for: Calf Tenderness Skin: Normal color, No rash Neurological: Alert, Oriented x3, Cranial nerves II-XII grossly intact, Normal Strength, Normal Sensation Psychological: Normal affect, Normal Mood Diagnostic/Tx/Re-eval Chest X-Ray - ED: - - Rate of 77 bpm and normal sinus rhythm. Normal intervals. Normal axis. No ST elevations or depressions. No T wave abnormalities. - Medical Decision Making Patient presents to the emergency department for chest pain. She is hypertensive upon arrival but otherwise normal vital signs. She does not appear in acute distress. Her pain is reproducible on exam with chest palpation. EKG, chest x-ray and basic lab work being obtained. She does have an allergy to anti-inflammatories with history of GI bleed so she is given a dose of Tylenol. Patient has a heart score of 3. Her troponin is negative. Since her symptoms have been going on for multiple days I believe that 1 of an elevated this was cardiac in nature. Do not feel a repeat troponin is necessary at this time. Low concern for PE as she is not tachycardic, tachypneic and satting well on room air. Since her symptoms are completely reproducible on exam is most likely musculoskeletal. She does need to have close follow-up with her PCP though. If she develops any worsening symptoms develop shortness of breath she needs to return to the emergency department immediately. She understands and is agreeable this plan. She is discharged home in stable condition. All questions answered. ED Disposition - Plan for ED Patient: Disposition: Home or Assisted Living Diagnosis: Chest wall pain Instructions: ED Chest Pain, Noncardiac Referrals: Mary Ann Fofana MD [Primary Care Provider] - 1 Day
[2020-07-30 10:21] LABS: Absolute Neutrophil Count 2.4 X10^3/uL (2.0-7.7); Basophil# 0.01 X10^3/uL; Basophil% 0.2 % (0-1); Eosinophil# 0.11 X10^3/uL; Eosinophils% 2.6 % (0-5); Hemoglobin 13.1 g/dL (12.0-15.0); Mean Corpuscular Hgb 28.6 pg (27.0-32.0); Mean Corpuscular Volume 89.5 fL (81-99); Mean Platelet Vol. 10.4 fl (6.2-12.0); Monocyte# 0.35 X10^3/uL; Monocyte% 8.4 % (0-10); NRBC Flagged by Analyzer 0 % (0-5); Neutrophil # 2.41 X10^3/uL (2.7-7.7); Neutrophil % 57.6 % (47-70); Platelet Count 254 K/mm3 (150-450); RBC Distribution Width CV 16.8 % (11.6-14.6); RBC Distribution Width SD 47.1 fl (35.1-43.9); Red Blood Count 4.58 M/mm3 (4.2-5.4); White Blood Count 4.2 K/mm3 (4.4-11.0)
--- NOTE | 2020-07-30 10:35 | RAD_ITS ---
STUDY: X-RAY CHEST REASON FOR EXAM: Female, 60 years old. LEFT CHEST PAIN X3 DAYS. RADIATION TO LEFT ARM STARTED THIS AM. DENIES OTHER SX. TECHNIQUE: Single AP portable view of the chest. COMPARISON: None. FINDINGS: The lungs are clear and expanded. There is no demonstrated pleural abnormality. Normal size heart. Normal mediastinum and lucía. Normal visualized pulmonary arteries. Normal visualized aortic arch and descending thoracic aorta. Normal visualized thoracic spine. There is degenerative osteoarthritis of the bilateral shoulders. There is no demonstrated abnormality of the visualized soft tissue structures of the upper abdomen. RAD/Chest 1 View (Portable) IMPRESSION: Degenerative changes, as described above. No demonstrated acute cardiopulmonary process. Electronically Signed: Mariajose Lopez, at 11:15 EST Tel , Service support ,
[2020-07-30 10:44] LABS: Anion Gap 3 (5-15); BUN 12 mg/dL (7-18); BUN/Creat Ratio 12.3 RATIO (10-20); Calcium,Total 9.1 mg/dL (8.5-10.1); Chloride 110 mmol/L (98-107); Creatinine, Serum 0.97 mg/dL (0.55-1.02); EST Glomerular Filtration Rate 62 mL/min (>60); Est Glom Filt Rate - Afr Amer 75 mL/min (>60); Estimated Creatinine Clearance 57.74 ml/min; Glucose 100 mg/dL (74-106); Potassium 5.2 mmol/L (3.5-5.1); Sodium Level 139 mmol/L (136-145)
[2020-07-30] MEDS: Acetaminophen 325 MG Tablet 650 MG PO (10:45)
[2020-07-30 12:04] VITALS: BP 136/92; PULSE 63; RESP 15; O2SAT 96
== END 2020-07-30 12:14 | disposition home or self-care (01) ==
PROVIDERS: Emergency Provider Emergency Medicine; PCP Internal Medicine
DX: R07.89 Other chest pain (principal); M25.512 Pain in left shoulder; I10 Essential (primary) hypertension; K21.9 Gastro-esophageal reflux disease without esophagitis; F17.200 Nicotine dependence, unspecified, uncomplicated; Z79.899 Other long term (current) drug therapy; Z98.84 Bariatric surgery status; Z82.49 Family history of ischemic heart disease and other diseases of the circulatory system
CPT/HCPCS: 71045; 80048; 84484; 85025; 93005; 99285; A4216

== ENCOUNTER → 2020-08-09 09:32 | Outpatient (CLI) | payer MEDICARE, MEDICAID, SELFPAY ==
[2020-08-01 14:11] VITALS: BMI 30.8
[2020-08-07 14:08] LABS: CRP < 2.90 mg/L (0.0-3.0)
[2020-08-07 14:48] LABS: Erythrocyte Sedimentation Rate 23 mm/hr (0-30)
--- NOTE | 2020-08-09 09:37 | CDU_ITS ---
Reason For Study: Visual disturbance Rt. Velocities/BP Lt. Velocities/BP Prox CCA 89.1/14.7 cm/sec. Prox CCA 81.6/16.8 cm/sec. Mid CCA 90.4/21.3 cm/sec. Mid CCA 77.2/19 cm/sec. Dist CCA 78.6/26.5 cm/sec. Dist CCA 69.5/17.9 cm/sec. Prox ICA 64/25.6 cm/sec. Prox ICA 66.2/13.5 cm/sec. Mid ICA 99.7/32.5 cm/sec. Mid ICA 83.8/37.7 cm/sec. Dist ICA 119.4/42 cm/sec. Dist ICA 79.5/31.13 cm/sec. Rt. ICA/CCA = 1.3. Lt. ICA/CCA = 1.1. Prox ECA 86.5/14.7 cm/sec. Prox ECA 53.1/11.3 cm/sec. Rt. Vert. 44.6/15.1 cm/sec. Lt. Vert. 48.6/16.7 cm/sec. Right Extracranial There is intimal thickening but no significant atherosclerotic plaque noted in the right common carotid artery. There is heterogeneous, irregular atherosclerotic plaque noted in the right internal carotid artery. The right internal carotid artery is very tortuous. There is intimal thickening but no significant atherosclerotic plaque noted in the right external carotid artery. Antegrade flow is noted in the right vertebral artery. Left Extracranial There is intimal thickening but no significant atherosclerotic plaque noted in the left common carotid artery. There is heterogeneous, smooth atherosclerotic plaque noted in the left internal carotid artery. The left internal carotid artery is very tortuous. There is intimal thickening but no significant atherosclerotic plaque noted in the left external carotid artery. Antegrade flow is noted in the left vertebral artery. Procedure Carotid Duplex 50181. This is a Carotid Duplex examination using B-mode, color flow and specral Doppler. Exam performed in department. Interpretation Summary Mild (<50%) stenosis right extracranial internal carotid. Mild (<50%) stenosis left extracranial internal carotid. Flow within the vertebral arteries is antegrade bilaterally. Ordering Physician: Shakeel Merritt Referring Physician: Mary Ann Fofana Performed By: Sunita Amaro RVT
== END ==
PROVIDERS: PCP Internal Medicine; Referring Provider Ophthalmology; Visit Provider Ophthalmology
DX: H53.10 Unspecified subjective visual disturbances (principal)
CPT/HCPCS: 36415; 85652; 86140; 93880

== ENCOUNTER → 2020-09-25 07:08 | Outpatient (CLI) | payer MEDICARE, MEDICAID, SELFPAY ==
[2020-08-01 14:11] VITALS: BMI 30.8
[2020-09-04 09:34] VITALS: BMI 30.4
--- NOTE | 2020-09-25 12:24 | STRESSREP_ITS ---
Stress Test Report Date: 09/25/2020 Procedure: Pharmacologic stress nuclear imaging study Indications: Chest pain Consent: Per the patient Procedure: The patient underwent pharmacologic (Regadenoson) evaluation with a peak heart rate of 91 beats per minute ([56]%predicted maximal heart rate) and a peak blood pressure of [122/64] mmHg. The baseline ECG demonstrated normal sinus rhythm. EKG during lexiscan infusion revealed no significant ischemic changes. EKG post infusion revealed no significant ischemic changes [There were no cardiac dysrhythmias pretest, during pharmacologic infusion, or recovery]. [There was no complaint of chest discomfort during pharmacologic infusion or recovery]. The examination was discontinued secondary to completion of protocol. Impression: 1. Lexiscan stress test test is negative for Lexiscan infusion induced EKG changes of ischemia. 2. Lexiscan stress test test is negative for Lexiscan infusion induced chest pain. 3. Results of the nuclear portion of the test is as below Myocardial perfusion imaging study: Technique: The patient was injected with [14.2] millicuries of technetium 99m Cardiolite and subsequently rest SPECT Cardiolite nuclear imaging was obtained in the horizontal long, vertical long, and short axis views. The patient underwent pharmacologic [Regadenoson 0.4mg] evaluation. Please see above for details. The patient was injected with [43] millicuries of technetium 99m Cardiolite and subsequently stress SPECT Cardiolite nuclear imaging was obtained in the horizo ntal long, vertical long, and short axis views. A gated Cardiolite study at peak stress was obtained. Interpretation: Rest and stress SPECT Cardiolite nuclear imaging status post realignment, nor malization, and attenuation correction demonstrate [decreased radioisotope uptake in the inferior wall prior to attenuation correction. After attenuation correction there is normal myocardial radioisotope uptake in both the rest and stress images. This appears to be secondary to diaphragmatic attenuation artifact.] There is no evidence of significant ischemia or infarction. Gated images reveal no significant regional wall motion abnormalities. The reported LVEF is 70%. Impression: 1. There is no evidence of significant ischemia or infarction. 2. Estimated ejection fraction is 70%. This note was generated with [employer] software. It may contain incorrect words, spelling, and punctuation that were not noted in checking the note before signing.
== END ==
PROVIDERS: PCP Internal Medicine; Referring Provider Internal Medicine; Visit Provider Internal Medicine
DX: R07.9 Chest pain, unspecified (principal)
CPT/HCPCS: 78452; 93017; A9500; A4216; J2785

== ENCOUNTER → 2020-10-24 10:03 | Outpatient (CLI) | payer MEDICARE, MEDICAID, SELFPAY ==
[2020-10-24 09:27] VITALS: BMI 30.7
[2020-10-29 03:06] LABS: Chlamydia By Nucleic Acid AMP Negative (Negative)
[2020-10-29 08:55] LABS: Gonococcus By Nucleic Acid AMP Negative (Negative)
[2020-10-30 12:35] LABS: HPV APTIMA, High Risk Negative (Negative)
== END ==
PROVIDERS: Nurse Practitioner Women's Health; PCP Internal Medicine; Referring Provider Internal Medicine; Visit Provider Internal Medicine
DX: Z12.4 Encounter for screening for malignant neoplasm of cervix (principal); Z11.3 Encounter for screening for infections with a predominantly sexual mode of transmission; N89.8 Other specified noninflammatory disorders of vagina; Z72.51 High risk heterosexual behavior; D50.9 Iron deficiency anemia, unspecified; Z98.84 Bariatric surgery status
CPT/HCPCS: 36415; 86703; 86803; 87070; 87077; 87205; 87491; 87591; 87624; 88175; G0145

== ENCOUNTER → 2020-11-01 12:18 | Outpatient (CLI) | payer MEDICARE, MEDICAID, SELFPAY ==
[2020-10-24 09:27] VITALS: BMI 30.7
[2020-11-01 14:10] LABS: Hepatitis C Antibody REACTIVE (Nonreactive)
== END ==
PROVIDERS: PCP Internal Medicine; Visit Provider Nurse Practitioner Women's Health
DX: Z11.3 Encounter for screening for infections with a predominantly sexual mode of transmission (principal)
CPT/HCPCS: 86803

== ENCOUNTER → 2020-11-13 14:02 | Outpatient (CLI) | payer MEDICARE, MEDICAID, SELFPAY ==
[2020-10-24 09:27] VITALS: BMI 30.7
[2020-11-15 12:24] LABS: HSV 1 IgG < 0.91 index (0.00-0.90); HSV 2 IgG > 23.60 index (0.00-0.90)
== END ==
PROVIDERS: PCP Internal Medicine; Referring Provider Nurse Practitioner Women's Health; Visit Provider Nurse Practitioner Women's Health
DX: Z72.51 High risk heterosexual behavior (principal)
CPT/HCPCS: 36415; 86695; 86696; 87521

== ENCOUNTER → 2021-03-05 14:31 | Outpatient (CLI) | payer MEDICARE, MEDICAID, SELFPAY ==
[2021-03-05 13:19] VITALS: BMI 30.7
[2021-03-05 16:36] LABS: Amphetamine Urine VISTA NEGATIVE (<1000 ng/mL); Barbiturate Urine VISTA NEGATIVE (< 200 ng/mL); Benzodiazepine Urine VISTA POSITIVE (< 200 ng/mL); Cocaine Urine VISTA NEGATIVE (< 300 ng/mL); Ecstacy Urine VISTA POSITIVE (< 500 ng/mL); Methadone Urine VISTA NEGATIVE (< 300 ng/mL); PCP Urine VISTA NEGATIVE (< 25 ng/mL); THC Urine VISTA POSITIVE (< 50 ng/mL); Vista UDS pH Range 6
== END ==
PROVIDERS: PCP Internal Medicine; Referring Provider Internal Medicine; Visit Provider Internal Medicine
DX: F32.9 Major depressive disorder, single episode, unspecified (principal); F41.9 Anxiety disorder, unspecified; Z79.899 Other long term (current) drug therapy
CPT/HCPCS: 80307

== ENCOUNTER → 2021-03-24 13:00 | Outpatient (CLI) | payer MEDICARE, MEDICAID, SELFPAY ==
[2020-09-26 11:24] VITALS: BMI 30.7
--- NOTE | 2021-03-24 13:10 | BI_ITS ---
MAMMOGRAPHY - BILATERAL SCREENING REASON FOR EXAM: Female, 61 years old. Routine annual screening examination. PERTINENT HISTORY: Non-contributory. TECHNIQUE: Digital bilateral breast kuldip (3D mammographic acquisition) in the CC and MLO projections. 2-D mediolateral oblique (MLO) and craniocaudad (CC) views of both breasts were obtained. CAD: Full Field Digital Mammography with Computer Added Detection was performed. COMPARISON: No comparison mammograms available at this time. If any prior films become available, an addendum to this report can be generated. FINDINGS: Breast Composition: The breasts are almost entirely fatty. There are no dominant masses or suspicious calcifications. Small benign-appearing bilateral axillary lymph nodes. No other significant abnormalities are identified. BI/SCRN MAMM (CAD)W/KULDIP BILAT IMPRESSION: Negative screening mammogram. Yearly followup mammogram recommended. (A) ASSESSMENT CATEGORY: BIRADS Category 2: Benign. A letter regarding these results will be sent to the patient by the facility within 30 days. Approximately 10% of breast cancers are not detected by mammography. A normal mammogram should not delay biopsy of a clinically suspicious abnormality. [id number] Electronically Signed: Javad Del Cid MD at 14:04 EDT , Service support ,
== END ==
PROVIDERS: PCP Internal Medicine; Referring Provider Nurse Practitioner Family; Visit Provider Internal Medicine
DX: Z12.31 Encounter for screening mammogram for malignant neoplasm of breast (principal)
CPT/HCPCS: 77063; 77067

== ENCOUNTER 2021-06-21 18:24 | Observation (INO) | payer MEDICARE, MEDICAID, SELFPAY ==
[2021-06-21] VITALS (8 sets, daily range): BP systolic 155–172; BP diastolic 93–108; PULSE 101–119; RESP 18–30; TEMP 36.5–37.2; O2SAT 99–100; BMI 32.5
--- NOTE | 2021-06-21 18:27 | EKG12_ITS ---
Test Reason : DYSRHYTHMIA Blood Pressure : / mmHG Vent. Rate : 104 BPM Atrial Rate : 104 BPM P-R Int : 164 ms QRS Dur : 068 ms QT Int : 360 ms P-R-T Axes : 065 017 058 degrees QTc Int : 473 ms Sinus tachycardia Otherwise normal ECG Confirmed by DORIS WOO, FADUMO ([id number]), development editor ANAT GONZALEZ ([id number]) on 06/23/2021 1:27:19 PM Referred By: KONRAD Confirmed By:FADUMO GEORGE MD
--- NOTE | 2021-06-21 18:27 | CT_ITS ---
STUDY: CT HEAD STROKE PROTOCOL W/O CONTRAST INJECTION REASON FOR EXAM: Female, 61 years old. Neuro deficit, acute, stroke suspected RADIATION DOSAGE (If Supplied By Facility): CTDIvol = ( ) mGy, DLP = ( ) mGycm TECHNIQUE: Transaxial CT imaging of the brain was performed without administration of intravenous contrast material. Individualized dose optimization techniques were used for this CT. COMPARISON: No relevant priors. FINDINGS: Normal soft tissue structures. Normal calvarium. Normal size ventricles and extra-axial spaces for the patient''s age. Normal white matter tracts of the cerebral hemispheres. Normal basal ganglia and thalami. Normal brainstem. Normal cerebellum. There is no intracranial hemorrhage. There are no findings of an acute ischemic infarction. Normal visualized paranasal sinuses. ASPECT score: 10 CT/STROKE Brain/Head without Cont IMPRESSION: No acute intracranial hemorrhage or mass effect. N.B. : The above Results were Read Back by Rakesh Hickey MD (Brooks) to Ronel Parnell and understanding confirmed on 06/21/2021 18:43:37 (ET). Electronically Signed: Rakesh Hickey MD (Brooks) at 18:44 EST , Service support ,
--- NOTE | 2021-06-21 18:29 | ED.VIS.STROK ---
HPI History of Present Illness Chief Complaint: Neuro S/Sx Detail of Chief Complaint: Concern for possible stroke Informant: patient and EMS Narrative Narrative: For EMS they were called to patient's residence for illness of vomiting. Apparently they were told that she was having chest pain and some pain into her left arm and then on the way to the hospital she developed weakness on her left side and increased confusion. Patient is a very poor historian. She does follow some commands. She has history of hypertension. Patient states that she actually started not feeling well yesterday. Prior similar symptoms: No PFSH PFSH Medical History ADHD (attention deficit hyperactivity disorder) Anemia Anxiety and depression B12 deficiency Chest pain Chronic pain h/o blood transfusions h/o iron transfusions Health care maintenance Hypertension Insomnia Obesity (BMI 30-39.9) Tenonitis TMJ (temporomandibular joint syndrome) Home Medications temazepam 30 mg PO QHS 03/16/16 [History Last Taken 03/15/16] rollator walker with seat #1 ea 10/09/20 [Rx Last Taken Unknown] medical marijauna PO 10/16/20 [History Last Taken Unknown] cyclobenzaprine 10 mg tablet 20 mg PO TID 10/24/20 [History Last Taken Unknown] valacyclovir 500 mg tablet 500 mg PO DAILY #90 tablet 10/24/20 [Rx Last Taken Unknown] cyanocobalamin (vitamin B-12) 1,000 mcg/mL injection solution 1,000 mcg IM Q30D #1 ml 12/20/20 [Rx Last Taken Unknown] diclofenac sodium 1 % topical gel 4 g TOPICAL .QID #100 g 03/03/21 [Rx Last Taken Unknown] omeprazole 40 mg capsule,delayed release 40 mg PO DAILY #90 cap 03/03/21 [Rx Last Taken Unknown] triamterene 37.5 mg-hydrochlorothiazide 25 mg capsule 1 cap PO DAILY #90 cap 03/03/21 [Rx Last Taken Unknown] syringe with needle 1 mL 25 gauge x 1 #100 ea 03/05/21 [History Last Taken Unknown] bupropion HCl 300 mg 24 hr tablet, extended release 300 mg PO QAM #60 tab 03/24/21 [Rx Last Taken Unknown] albuterol sulfate 90 mcg/actuation aerosol inhaler 2 puff INHALATION Q4H PRN PRN #8.5 g 04/16/21 [Rx Last Taken Unknown] ergocalciferol (vitamin D2) 1,250 mcg (50,000 unit) capsule 50,000 unit PO 2XW 90 Days #60 cap 06/10/21 [Rx Last Taken Unknown] plecanatide [Trulance] 3 mg DAILY 06/21/21 [History Last Taken Unknown] Allergy/AdvReac Type Severity Reaction Status Date / Time buprenorphine [From Butrans] Allergy Rash Verified 03/20/21 10:54 NSAIDS (Non-Steroidal AdvReac Nausea Verified 03/20/21 10:54 Anti-Inflamma Family History Father Myocardial infarction Alcohol abuse Mother CVA (cerebral vascular accident) Hypertension Thrombosis Alcohol abuse Sister Lupus Surgical History H/O gastric bypass Hx of bariatric surgery S/P Social History household members: other details: grandson housing: house current occupational status: retired and disabled history of recent travel: No Smoking Status: Former smoker alcohol intake: never substance use type: does not use what type of physical activity do you participate in: none and walking seatbelt use: always do you feel safe at home: Yes additional social history: single ROS ROS ED Constitutional Constitutional ED: Reports systems reviewed and no addt'l complaints, except as documented; Denies body ache(s), change in weight or chills Eyes Eyes: Denies acute decrease in peripheral vision, change in vision, double vision or loss of vision ENT ENT ED: Reports none; Denies ear pain, lip swelling, loss taste/smell, neck pain, otalgia or sore throat Cardiovascular Cardiovascular: Reports none and chest pain; Denies abdominal pain, chest pain with activity, leg edema, lightheadedness, palpitations, rapid heart rate or syncope Respiratory/Chest Respiratory/Chest: Reports none; Denies change in mental status, dry cough, dyspnea, hemoptysis, shortness of breath at rest or shortness of breath with exertion Gastrointestinal Gastrointestinal: Reports none, nausea and vomiting; Denies abdominal pain, change in stool character, diarrhea, hematemesis, hematochezia, melena or rectal bleeding Genitourinary Genitourinary ED: Reports none; Denies abdominal discomfort, anuria, dysuria, genital pain or polyuria Musculoskeletal Musculoskeletal: Reports none; Denies arthralgias, back pain, difficulty walking, extremity pain, muscle weakness or myalgias Integumentary Reports none; Denies abscess or rash Neurologic Neurologic: Reports none, headache(s) and weakness; Denies abnormal gait, confusion, focal weakness, frequent falls, loss of vision, numbness, paresthesias, radicular pain or vertigo Psychiatric Psychiatric: Reports systems reviewed and no addt'l complaints, except as documented and none; Denies behavioral changes, confusion, difficulty concentrating, hallucinations, suicidal ideation, tactile hallucinations or visual hallucinations Endocrine Endocrinology: Denies none, cold intolerance, excessive sweating, fatigue or heat intolerance Hematologic/Lymphatic Hematologic/Lymphatic: Reports none; Denies anemia, easy bleeding or easy bruising Allergic/Immunologic Allergic/Immunologic ED: Denies as per HPI, none, lip swelling, mouth swelling, throat swelling, tongue swelling or hives EXAM Physical Exam Const Vital Signs: 06/21/21 18:25 06/21/21 18:27 06/21/21 18:47 Temperature 97.7 F L Temperature Source Oral Pulse Rate 119 H 114 H Respiratory Rate 30 H 21 H Blood Pressure 168/108 H 172/104 H Blood Pressure Mean 128 126 Pulse Ox 100 99 100 Oxygen Delivery Method Room Air Room Air Room Air 06/21/21 18:51 06/21/21 19:30 Temperature 97.7 F L Temperature Source Oral Pulse Rate 113 H 106 H Respiratory Rate 19 H 18 Blood Pressure 172/104 H 170/105 H Blood Pressure Mean 126 126 Pulse Ox 99 100 Oxygen Delivery Method Room Air Positive well nourished and well developed General Appearance ED: well developed and NAD HEENT Reports TM's clear and moist mucous membranes normocephalic and atraumatic; Negative for trauma or tenderness Tympanic Membrane ED: Yes TM's clear Eyes PERRL and EOMs intact bilaterally General Eye ED: Negative for pale conjunctiva or scleral icterus Neck no lymphadenopathy, supple and no JVD General: Negative for tenderness Chest Wall inspection of chest normal and palpation of chest normal Chest: Negative for tenderness Resp normal respiratory effort and clear to auscultation bilaterally Effort and Inspection: Negative for respiratory distress or pain with movement Auscultation: Negative for rhonchi, wheezes or diminished lung sounds Cardio regular rate, regular rhythm, S1 normal heart sound, S2 normal heart sound and no murmurs Peripheral Pulses: pulses 2+ throughout GI normal to inspection, nondistended, normoactive bowel sounds, soft to palpation, non-tender, non-distended and no masses Back/Spine no CVA tenderness and no thoracic nor lumbar tenderness Extremity normal to inspection General Extremety ED: Negative for edema General Extremity: Negative for edema Neuro oriented x3, CN's II-XII intact bilaterally, no sensory deficits noted and gait normal Sensorium / Orientation: awake, alert, oriented to person, oriented to place and oriented to time Motor Exam: strength 5/5 throughout and strength abnormal Psych mental status grossly normal Psych Narrative: Patient has a difficult time following commands but I do not appreciate any focal weakness. No appreciated facial droop. NIH stroke scale is essentially 0. Skin no rashes or lesions noted and no wounds STROKE Vital Signs/Narrative: Vital Signs Temp Pulse Resp BP Pulse Ox 06/21/21 19:30 106 H 18 170/105 H 100 06/21/21 18:51 97.7 F L 113 H 19 H 172/104 H 99 06/21/21 18:47 100 06/21/21 18:27 114 H 21 H 172/104 H 99 06/21/21 18:25 97.7 F L 119 H 30 H 168/108 H 100 MDM MDM MDM Narrative Medical decision making narrative: IV line established on arrival. Patient was taken over to the CT scanner and her CT brain was unremarkable. Patient was evaluated by [facility] teleneurology and it was determined that she would not be a TPA candidate as on arrival from the CT scanner she was moving all extremities against gravity. She seems to have more of a global confusion. I was asked to obtain CTAs of the head and neck which were performed and were normal as well. Lab work-up otherwise was unremarkable. At this point discussed case with hospitalist will evaluate patient for admission. I did add an alcohol level to be drawn as well as urine tox screen. Lab Data Attestation: I reviewed the patient's lab results. Labs: Laboratory Results - last 24 hr 06/21/21 06/21/21 06/21/21 18:50 18:50 18:50 WBC 5.6 RBC 4.46 Hgb 11.7 L Hct 36.2 L MCV 81.2 MCH 26.2 L MCHC 32.3 RDW Std Deviation 45.7 H RDW Coeff of Adelia 15.5 H Plt Count 273 MPV 9.1 Immature Gran % (Auto) 0.200 Neut % (Auto) 41.6 L Lymph % (Auto) 48.8 H Pender % (Auto) 8.5 Eos % (Auto) 0.5 Baso % (Auto) 0.4 Absolute Neuts (auto) 2.4 Absolute Lymphs (auto) 2.75 Nucleated RBC % 0 PT 11.9 INR 0.9 APTT 25.9 Sodium 135 L Potassium 3.5 Chloride 107 Carbon Dioxide 17.0 L Anion Gap 11 BUN 12 Creatinine 1.12 H Estim Creat Clear Calc 47.46 Est GFR (MDRD) Af Amer 64 Est GFR (MDRD) Non-Af 53 L BUN/Creatinine Ratio 10.7 Glucose 104 Calcium 9.6 Troponin I High Sens 27 Radiography Diagnostic Testing: Clinical Impression(s) from Imaging Studies Brain CT 06/21/21 18:27 IMPRESSION: No acute intracranial hemorrhage or mass effect. N.B. : The above Results were Read Back by Rakesh Hickey MD (Brooks) to Ronel Parnell and understanding confirmed on 06/21/2021 18:43:37 (ET). Electronically Signed: Rakesh Hickey MD (Brooks) at 18:44 EST , Service support , Head/Neck CTA 06/21/21 18:55 IMPRESSION: No large vessel occlusion or intracranial aneurysm. No carotid dissection or hemodynamically significant stenosis. N.B. : The above Results were Read Back by Rakesh Hickey MD (Brooks) to Yoletteus Soheila and understanding confirmed on 06/21/2021 19:45:15 (ET). Electronically Signed: Rakesh Hickey MD (Brooks) at 19:49 EST , Service support , ADDENDUM: 06/21/211955 IMPRESSION: No large vessel occlusion or intracranial aneurysm. No carotid dissection or hemodynamically significant stenosis. N.B. : The above Results were Read Back by Rakesh Hickey MD (Brooks) to Ronel Parnell and understanding confirmed on 06/21/2021 19:45:15 (ET). Electronically Signed: Rakesh Hickey MD (Brooks) at 19:49 EST , Service support , Chest X-Ray 06/21/21 19:20 IMPRESSION: Nonacute portable x-ray examination of the chest. Electronically Signed: Rakesh Hickey MD (Brooks) at 19:42 EST , Service support , 1 view chest x-ray obtained interpreted by myself as no acute disease process. EKG Initial EKG: Attestation: I personally reviewed and interpreted this EKG as follows: Comments: Sinus tachycardia with a ventricular rate of 104 bpm with no acute ST segment changes. Discharge Plan Triage Chief Complaint: Neuro S/Sx ED Provider: Ronel Parnell Dx/Rx/DC Orders Clinical Impression: Chest pain, Acute confusion, Nausea & vomiting Prescriptions: No Action medical marijauna PO RF: 0 valacyclovir [Valtrex] 500 mg tablet 500 mg PO DAILY Qty: 90 RF: 3 (DME) syringe with needle 1 mL 25 gauge x 1 syringe See Rx Instructions .ROUTE .MEDSUPPLY Qty: 100 RF: 0 temazepam 30 MG capsule 30 mg PO QHS RF: 0 cyclobenzaprine 10 mg tablet 20 mg PO TID RF: 0 Trulance 3 mg tablet 3 mg DAILY RF: 0 (DME) rollator walker with seat See Rx Instructions .Route .MEDSUPPLY Qty: 1 RF: 0 cyanocobalamin (vitamin B-12) 1,000 mcg/mL solution 1,000 mcg IM Q30D Qty: 1 RF: 2 diclofenac sodium 1 % gel 4 g TOPICAL .QID Qty: 100 RF: 1 triamterene-hydrochlorothiazid 37.5-25 mg capsule 1 cap PO DAILY Qty: 90 RF: 1 omeprazole 40 mg capsule,delayed release(DR/EC) 40 mg PO DAILY Qty: 90 RF: 1 bupropion HCl 300 mg tablet extended release 24 hr 300 mg PO QAM Qty: 60 RF: 2 albuterol sulfate 90 mcg/actuation HFA aerosol inhaler 2 puff INHALATION Q4H PRN PRN (Reason: SOB, wheezing) Qty: 8.5 RF: 1 ergocalciferol (vitamin D2) 1,250 mcg (50,000 unit) capsule 50,000 unit PO 2XW 90 Days Qty: 60 RF: 3 Primary Care Provider: Mary Ann Fofana Referrals: Mary Ann Fofana MD [Primary Care Provider] - Disposition Disposition: Acute Care Hospital [facility]
--- NOTE | 2021-06-21 18:55 | CT_ITS ---
EXAM: CT ANGIOGRAPHY HEAD AND NECK WITH INTRAVENOUS CONTRAST CLINICAL INDICATION: DIZZINESS,CONFUSION,SLURRED SPEECH HX:HTN,COPD,ANEMIA TECHNIQUE: Rudy of [place]jía/head and neck CT angiography protocol performed with intravenous contrast. This CT exam was performed using one or more of the following dose reduction techniques: automated exposure control, adjustment of the mA and/or kV according to patient size, and/or use of iterative reconstruction technique. This report was created using [employer] report generation technology. MIP reconstructed images were created and reviewed. CONTRAST: IV 100mL [id number] COMPARISON: None. FINDINGS: HEAD: RIGHT ANTERIOR CEREBRAL ARTERY: Unremarkable. No significant stenosis at the visualized segments. Anterior communicating artery is present. No aneurysm. RIGHT MIDDLE CEREBRAL ARTERY: Unremarkable. No significant stenosis at the visualized segments. No aneurysm. RIGHT POSTERIOR CEREBRAL ARTERY: origin. No occlusion or significant stenosis. No aneurysm. LEFT ANTERIOR CEREBRAL ARTERY: Unremarkable. No significant stenosis at the visualized segments. No aneurysm. LEFT MIDDLE CEREBRAL ARTERY: Unremarkable. No significant stenosis at the visualized segments. No aneurysm. LEFT POSTERIOR CEREBRAL ARTERY: Unremarkable. No occlusion or significant stenosis. No aneurysm. BASILAR ARTERY: Unremarkable. No significant stenosis. No aneurysm. GREAT VESSELS OF AORTIC ARCH: Unremarkable. Normal anatomy, patent. OTHER VASCULATURE: No vascular malformation. NECK: RIGHT COMMON CAROTID ARTERY: Unremarkable. No significant stenosis. No dissection or occlusion. RIGHT INTERNAL CAROTID ARTERY: Right proximal ICA atherosclerosis, 35% stenosis. No dissection or occlusion. RIGHT EXTERNAL CAROTID ARTERY: Unremarkable. No occlusion. RIGHT VERTEBRAL ARTERY: Unremarkable. No significant stenosis. No dissection or occlusion. LEFT COMMON CAROTID ARTERY: Unremarkable. No significant stenosis. No dissection or occlusion. LEFT INTERNAL CAROTID ARTERY: Left carotid bulb atherosclerosis, 15% stenosis. No dissection or occlusion. LEFT EXTERNAL CAROTID ARTERY: Unremarkable. No occlusion. LEFT VERTEBRAL ARTERY: Unremarkable. No significant stenosis. No dissection or occlusion. LUNG APICES: Unremarkable as visualized. SOFT TISSUES: Unremarkable. OTHER FINDINGS: Degenerative changes of the cervical spine. CAROTID STENOSIS REFERENCE USING NASCET CRITERIA: % ICA stenosis = (1 - narrowest ICA diameter/diameter of distal cervical ICA) x 100. Mild - <50% stenosis. Moderate - 50-69% stenosis. Severe - 70-94% stenosis. Near occlusion - 95-99% stenosis. Occluded - 100% stenosis. CT/CTA Head AND Neck W/ Contrast IMPRESSION: No large vessel occlusion or intracranial aneurysm. No carotid dissection or hemodynamically significant stenosis. N.B. : The above Results were Read Back by Rakesh Hickey MD (Brooks) to Ronel Parnell and understanding confirmed on 06/21/2021 19:45:15 (ET). Electronically Signed: Rakesh Hickey MD (Brooks) at 19:49 EST , Service support ,
--- NOTE | 2021-06-21 18:58 | CM.ED ---
JEANNE Note: Referral Source: Stroke Alert Referral Reason: Stroke Alert SW responded to stroke alert. Patient was in CT. No family or visitors present. JEANNE remains available. Plan: JEANNE remains available Isabelle TOTH
--- NOTE | 2021-06-21 19:03 | ED.RN ---
Verbal order received from Dr Parnell to discontinue [facility].
[2021-06-21 19:09] LABS: Absolute Lymphocyte Count 2.75 X10^3/uL (0.83-4.51); Absolute Neutrophil Count 2.4 X10^3/uL (2.0-7.7); Basophil# 0.02 X10^3/uL; Basophil% 0.4 % (0-1); Eosinophil# 0.03 X10^3/uL; Eosinophils% 0.5 % (0-5); Hematocrit 36.2 % (37-47); Hemoglobin 11.7 g/dL (12.0-15.0); Lymphocyte # 2.75 X10^3/ul (0.83-4.51); Lymphocyte % 48.8 % (19-41); Mean Corp Hgb Conc 32.3 g/dL (32-36); Mean Corpuscular Hgb 26.2 pg (27.0-32.0); Mean Corpuscular Volume 81.2 fL (81-99); Mean Platelet Vol. 9.1 fl (6.2-12.0); Monocyte# 0.48 X10^3/uL; Monocyte% 8.5 % (0-10); NRBC Flagged by Analyzer 0 % (0-5); Neutrophil # 2.35 X10^3/uL (2.7-7.7); Neutrophil % 41.6 % (47-70); Platelet Count 273 K/mm3 (150-450); RBC Distribution Width CV 15.5 % (11.6-14.6); RBC Distribution Width SD 45.7 fl (35.1-43.9); Red Blood Count 4.46 M/mm3 (4.2-5.4); White Blood Count 5.6 K/mm3 (4.4-11.0)
[2021-06-21 19:18] LABS: International Normalized Ratio 0.9; Prothrombin Time (Protime)PT. 11.9 SECONDS (11.7-14.9)
[2021-06-21 19:19] LABS: Partial Thromboplast Time 25.9 Seconds (24.1-36.2)
--- NOTE | 2021-06-21 19:20 | RAD_ITS ---
STUDY: X-RAY CHEST REASON FOR EXAM: Female, 61 years old. Neuro deficit, acute, stroke suspected TECHNIQUE: AP COMPARISON: None. FINDINGS: EKG leads project over the chest. The lungs are clear and expanded. There is no demonstrated pleural abnormality. Normal size heart. Normal mediastinum and lucía. Normal visualized pulmonary arteries. There is atherosclerotic tortuosity of the aortic arch and descending thoracic aorta. Normal visualized thoracic spine. Normal visualized ribs, clavicles, and shoulders. There is no demonstrated abnormality of the visualized soft tissue structures of the upper abdomen. RAD/Chest 1 View IMPRESSION: Nonacute portable x-ray examination of the chest. Electronically Signed: Rakesh Hickey MD (Brooks) at 19:42 EST , Service support ,
[2021-06-21 19:28] LABS: Anion Gap 11 (5-15); BUN 12 mg/dL (7-18); BUN/Creat Ratio 10.7 RATIO (10-20); Calcium,Total 9.6 mg/dL (8.5-10.1); Chloride 107 mmol/L (98-107); Creatinine, Serum 1.12 mg/dL (0.55-1.02); EST Glomerular Filtration Rate 53 mL/min (>60); Est Glom Filt Rate - Afr Amer 64 mL/min (>60); Estimated Creatinine Clearance 47.46 ml/min; Glucose 104 mg/dL (74-106); Potassium 3.5 mmol/L (3.5-5.1); Sodium Level 135 mmol/L (136-145); Troponin-I HS 27 pg/mL (3.0-54.0)
--- NOTE | 2021-06-21 20:03 | PCM.HP.STD ---
HPI - General General Date of Admission: 06/21/21 Date of Service: 06/21/21 Chief Complaint: L sided weakness, confusion, slurred speech, chest pain. HPI Narrative The patient is a 61 y/o F w/ PMHx:Anxiety and Depression/ADHA, HTN, HLD, IBS, Chronic pain syndrome, Chronic anemia/Fe deficiency requiring transfusions following with hematology Dr. Tilley who presents to the [facility] ED on 06/21/21 with history of onset prior to ED presentation recent history of nausea as well as emesis with onset of chest discomfort with radiation to the left upper extremity with then development of specifically focal left-sided weakness and confusion prompting EMS call for transition to ED for concern for possible stroke. Patient additionally was unable to follow any commands and also had slurred speech. Stroke alert was called and upon their evaluation patient was noted to be moderately confused however she was moving all extremities against gravity but could not sustain. Neurology recommended CTA head and neck as well as follow-up MRI brain and metabolic/infectious work-up to be initiated. Work-up in the ED included T 97.7, heart rate initially 119, BP 116/108, respiratory rate 30, 100% on room air, CBC with WBC 5.6, hemoglobin 11.7, platelet 273 without marked shift, coags unremarkable, BMP with sodium 135, collected 17, BUN/2012/1.12 otherwise not marked appearing, troponin 27, EKG ST without acute evidence of ischemia, CXR no acute cardiopulmonary findings, CT head with no acute intracranial hemorrhage or mass-effect, CTA head and neck with no large vessel occlusion or intracranial aneurysm, no carotid dissection or hemodynamically significant stenosis. EtOH, UDS testing pending. COVID rapid negative. She was felt not TPA candidate given improvement. [facility] Medical History ADHD (attention deficit hyperactivity disorder) Anemia Anxiety and depression B12 deficiency Chest pain Chronic pain h/o blood transfusions h/o iron transfusions Health care maintenance Hypertension Insomnia Obesity (BMI 30-39.9) Tenonitis TMJ (temporomandibular joint syndrome) Home Medications temazepam 30 mg PO QHS 03/16/16 [History Last Taken 03/15/16] rollator walker with seat #1 ea 10/09/20 [Rx Last Taken Unknown] medical marijauna PO 10/16/20 [History Last Taken Unknown] cyclobenzaprine 10 mg tablet 20 mg PO TID 10/24/20 [History Last Taken Unknown] valacyclovir 500 mg tablet 500 mg PO DAILY #90 tablet 10/24/20 [Rx Last Taken Unknown] cyanocobalamin (vitamin B-12) 1,000 mcg/mL injection solution 1,000 mcg IM Q30D #1 ml 12/20/20 [Rx Last Taken Unknown] diclofenac sodium 1 % topical gel 4 g TOPICAL .QID #100 g 03/03/21 [Rx Last Taken Unknown] omeprazole 40 mg capsule,delayed release 40 mg PO DAILY #90 cap 03/03/21 [Rx Last Taken Unknown] triamterene 37.5 mg-hydrochlorothiazide 25 mg capsule 1 cap PO DAILY #90 cap 03/03/21 [Rx Last Taken Unknown] syringe with needle 1 mL 25 gauge x 1 #100 ea 03/05/21 [History Last Taken Unknown] bupropion HCl 300 mg 24 hr tablet, extended release 300 mg PO QAM #60 tab 03/24/21 [Rx Last Taken Unknown] albuterol sulfate 90 mcg/actuation aerosol inhaler 2 puff INHALATION Q4H PRN PRN #8.5 g 04/16/21 [Rx Last Taken Unknown] ergocalciferol (vitamin D2) 1,250 mcg (50,000 unit) capsule 50,000 unit PO 2XW 90 Days #60 cap 06/10/21 [Rx Last Taken Unknown] plecanatide [Trulance] 3 mg DAILY 06/21/21 [History Last Taken Unknown] Allergy/AdvReac Type Severity Reaction Status Date / Time buprenorphine [From [facility]] Allergy Rash Verified 03/20/21 10:54 NSAIDS (Non-Steroidal AdvReac Nausea Verified 03/20/21 10:54 Anti-Inflamma Family History Father Myocardial infarction Alcohol abuse Mother CVA (cerebral vascular accident) Hypertension Thrombosis Alcohol abuse Sister Lupus Surgical History H/O gastric bypass Hx of bariatric surgery S/P Social History household members: other details: grandson housing: house current occupational status: retired and disabled history of recent travel: No Smoking Status: Former smoker alcohol intake: never substance use type: does not use what type of physical activity do you participate in: none and walking seatbelt use: always do you feel safe at home: Yes additional social history: single ROS ROS Narrative Patient unable to give Ross secondary to acute presentation with confusion, frequently repeating statements. Vital Signs Vital Signs Vital Signs: 06/21/21 18:25 06/21/21 18:27 06/21/21 18:47 Temperature 97.7 F L Temperature Source Oral Pulse Rate 119 H 114 H Respiratory Rate 30 H 21 H Blood Pressure 168/108 H 172/104 H Blood Pressure Mean 128 126 Pulse Ox 100 99 100 Oxygen Delivery Method Room Air Room Air Room Air 06/21/21 18:51 06/21/21 19:30 Temperature 97.7 F L Temperature Source Oral Pulse Rate 113 H 106 H Respiratory Rate 19 H 18 Blood Pressure 172/104 H 170/105 H Blood Pressure Mean 126 126 Pulse Ox 99 100 Oxygen Delivery Method Room Air Weight Weight: 195 lb 12.328 oz Body Mass Index (BMI) 32.5 Physical Exam Narrative Physical Examination: General: Awake, alert, will answer some orientation questions but patient is not appropriate, frequently repeating statements, focused on strength and repeating that she is scared, seated upright in the ED bed. Skin: Normal color, normal turgor, no icterus, no cyanosis. HEENT: AT/NC, EOMI, PERRLA, mildly dry MM, lacking dentition, no carotid bruits or JVD noted. Lungs: Mildly diminished, greater bases, decreased effort with request for examination, no rales, ronchi or wheezing. Heart: Mildly tachycardic with regular rhythm; no gallop, rub audible. Abdomen: Soft, obese, NTTP, ND, mildly hyperactive BS, no HSM. Extremities: No cyanosis, clubbing, or edema. Neurological: Patient awake, alert, oriented as noted, cognitive function not baseline intact; pupils equally reactive to light and accommodation, cranial nerves II-XII grossly normal but difficult given patient difficulty following commands, moving all 4 extremities spontaneously, no specific left-sided deficit but very difficult exam as not following commands, will spontaneously move the left side and lead welder strength appropriate, unable to discern if sensation is appropriate, negative Babinski, unable to have patient perform [id number] and [id number] secondary to her confusion. Psychiatric: Affect appears mildly anxious, no acute evidence of depressive feelings. Results Lab / Micro Data Result Diagrams: 06/21/21 18:50 06/21/21 18:50 Labs: Laboratory Results - last 24 hr 06/21/21 18:50: WBC 5.6, RBC 4.46, Hgb 11.7 L, Hct 36.2 L, MCV 81.2, MCH 26.2 L, MCHC 32.3, RDW Std Deviation 45.7 H, RDW Coeff of Adelia 15.5 H, Plt Count 273, MPV 9.1, Immature Gran % (Auto) 0.200, Neut % (Auto) 41.6 L, Lymph % (Auto) 48.8 H, Kay % (Auto) 8.5, Eos % (Auto) 0.5, Baso % (Auto) 0.4, Absolute Neuts (auto) 2.4, Absolute Lymphs (auto) 2.75, Nucleated RBC % 0 06/21/21 18:50: PT 11.9, INR 0.9, APTT 25.9 06/21/21 18:50: Sodium 135 L, Potassium 3.5, Chloride 107, Carbon Dioxide 17.0 L, Anion Gap 11, BUN 12, Creatinine 1.12 H, Estim Creat Clear Calc 47.46, Est GFR (MDRD) Af Amer 64, Est GFR (MDRD) Non-Af 53 L, BUN/Creatinine Ratio 10.7, Glucose 104, Calcium 9.6, Troponin I High Sens 27 Micro: Microbiology 06/21/21 19:04 Nasal Secretion SARS-CoV-2 Antigen (Rapid) - Final Radiology Impression Brain CT 06/21/21 18:27 IMPRESSION: No acute intracranial hemorrhage or mass effect. N.B. : The above Results were Read Back by Rakesh Hickey MD (Brooks) to Ronel Soheila and understanding confirmed on 06/21/2021 18:43:37 (ET). Electronically Signed: Rakesh Hickey MD (Brooks) at 18:44 EST , Service support , Head/Neck CTA 06/21/21 18:55 IMPRESSION: No large vessel occlusion or intracranial aneurysm. No carotid dissection or hemodynamically significant stenosis. N.B. : The above Results were Read Back by Rakesh Hickey MD (Brooks) to Ronel Parnell and understanding confirmed on 06/21/2021 19:45:15 (ET). Electronically Signed: Rakesh Hickey MD (Brooks) at 19:49 EST , Service support , ADDENDUM: 06/21/211955 IMPRESSION: No large vessel occlusion or intracranial aneurysm. No carotid dissection or hemodynamically significant stenosis. N.B. : The above Results were Read Back by Rakesh Hickey MD (Brooks) to Remus Soheila and understanding confirmed on 06/21/2021 19:45:15 (ET). Electronically Signed: Rakesh Hickey MD (Brooks) at 19:49 EST , Service support , Chest X-Ray 06/21/21 19:20 IMPRESSION: Nonacute portable x-ray examination of the chest. Electronically Signed: Rakesh Hickey MD (Brooks) at 19:42 EST , Service support , Assessment & Plan Assessment/Plan (1) Chest pain: QUALIFIERS: Chest pain type: unspecified Qualified Code(s): R07.9 - Chest pain, unspecified (2) Acute confusion: PLAN: The patient is a 61 y/o F w/ PMHx:Anxiety and Depression/ADHA, HTN, HLD, IBS, Chronic pain syndrome, Chronic anemia/Fe deficiency requiring transfusions following with hematology Dr. Tilley who presents to the [facility] ED on 06/21/21 with history of onset prior to ED presentation recent history of nausea as well as emesis with onset of chest discomfort with radiation to the left upper extremity with then development of specifically focal left-sided weakness and confusion prompting EMS call for transition to ED for concern for possible stroke. 1. L sided weakness, confusion, slurred speech concerning for Acute CVA with Prior CVA Hx: Will admit to PCU, will obtain MRI Brain, ECHO, PT/OT/Speech/Nutrition evaluation per protocol. Consider repeat Neurology consultation following further work-up as noted. Will allow permissive HTN, maintain on asa, fall precautions. TSH, Mag, FLP, HgA1c pending. UDS, EtOH, Ammonia level requested given atypical presentation. 2. Chest Pain: ED with troponin 27, EKG ST without acute evidence of ischemia, CXR no acute cardiopulmonary findings. Will place on a monitored bed to assure no acute myocardial infarction with serial cardiac enzymes and EKGs. Will need further evaluation #1 before pursuing or considering any stress testing. FLP in AM. Magnesium level requested as noted. ASA, NG, morphine. 3. Recent nausea and emesis, unclear etiology: Unclear if associate with #1, #2, rapid Covid antigen negative, will continue to closely monitor and if any concerns will obtain KUB as at least initial evaluation although improved following ED further work-up and treatment. 4. Chronic anemia/iron deficiency anemia: Patient following with hematology, Dr. Tilley with history of prior GI bleed 06/2019 with a EGD at [facility] with evidence of anastomotic ulcer with history of prior gastric bypass with prior Venofer administrations and transfusions. Admission hemoglobin 11.7, baseline prior more recently appears 12-13, trend. 5. Chronic pain syndrome: Given presentation will hold high dose flexeril. 6. IBS/chronic idiopathic constipation: Patient outpatient on chronic Trulance regimen, will continue if available. 7. Hypertension: We will hold patient's regimen, permissive hypertension with as needed agents as needed. 8. Hyperlipidemia: Not on regimen, FLP in a.m. given presentation as noted. 9. GERD with history of GI bleed with anastomotic ulcer history: We will continue patient on PPI. 10. Anxiety and depression/PTSD: We will continue patient home bupropion as well as cautiously temazepam regimen. 11. DVT prophylaxis: SCDs, cautiously Lovenox given history. Charges/Coding Visit Charges OBSV E&M: 46519 Initial observation care L3
[2021-06-21 20:38] LABS: Bacteria 0 SEEN /hpf (None Seen); Mucous, Urine 0 SEEN /hpf (<or=2+); Red Blood Cells-Urine 0 SEEN /hpf (0-5); White Blood Cells 0 SEEN /hpf (0-5)
[2021-06-21 20:42] LABS: Color, Urine Yellow (Yellow); Glucose, Dipstick Normal (Normal); Ketone-Dipstick Negative (Negative); Leukocyte Esterase-Dipstick Negative /ul (Negative); Nitrite-Dipstick Negative (Negative); Occult Blood-Urine Negative /ul (Negative); Protein-Dipstick Negative (Negative); Urine Bilirubin Dipstick Negative (Negative); Urine Clarity Clear (Clear); Urine Urobilinogen Normal (Normal); Urine pH 6.5 (5.0 - 8.0)
[2021-06-21 20:49] LABS: Squamous Epithelial Cells - UA 0-5 SEEN /hpf (5-10)
[2021-06-21 20:54] LABS: Amphetamine Urine VISTA POSITIVE (<1000 ng/mL); Barbiturate Urine VISTA NEGATIVE (< 200 ng/mL); Benzodiazepine Urine VISTA NEGATIVE (< 200 ng/mL); Cocaine Urine VISTA NEGATIVE (< 300 ng/mL); Ecstacy Urine VISTA NEGATIVE (< 500 ng/mL); Methadone Urine VISTA NEGATIVE (< 300 ng/mL); PCP Urine VISTA NEGATIVE (< 25 ng/mL); THC Urine VISTA NEGATIVE (< 50 ng/mL); Vista UDS pH Range 6
[2021-06-21] MEDS: Aspirin 81 MG TAB.CHEW 324 MG PO (20:55)
--- NOTE | 2021-06-21 21:09 | ECHOD_ITS ---
Reason For Study: CVA Procedure This was a 2D Doppler, Color Flow transthoracic echocardiogram. Bubble study performed. Exam performed in department. Left Ventricle Normal LV size. Left ventricular systolic function is normal. The estimated ejection fraction is 60 %. Stage 1 diastolic dysfunction. No regional wall motion abnormalities noted. Right Ventricle Normal RV size. Normal systolic function. Atria Normal left atrium. Normal right atrium. Bubble contrast study negative for right to left interatrial shunt. Mitral Valve Normal mitral valve. Tricuspid Valve Normal tricuspid valve. Mild (1+) tricuspid valve insufficiency. Pulmonary artery systolic pressure is 25 mmHg. Aortic Valve Trisinus/trileaflet aortic valve. Mild (1+) aortic valve insufficiency. Pulmonic Valve Normal pulmonic valve. Great Vessels Normal aortic root. The pulmonary artery is normal size. Normal inferior vena cava. Pericardium/Pleural No pericardial effusion. Medication Performed a rapid injection of agitated mix of 9 cc saline and 1cc air to assess for atrial septal defect. MMode/2D Measurements & Calculations LVIDd: 3.8 cm IVSd: 0.81 cm LA dimension: 3.3 cm LVIDs: 2.6 cm LVPWd: 0.88 cm RVDd: 3.0 cm FS: 30.5 % LAV(MOD-bp): 55.0 ml LA A4 area: 17.5 cm2 RA A4 area: 14.0 cm2 LAV(MOD-bp) Indexed: 28.7 ml/m2 LAV(MOD-sp2): 62.7 ml LAV(MOD-sp4): 45.8 ml Time Measurements MV dec time: 0.26 sec Doppler Measurements & Calculations MV E max ankur: 66.8 cm/sec Lat Peak E' Ankur: 9.0 cm/sec Med Peak E' Ankur: 8.1 cm/sec MV A max ankur: 95.5 cm/sec E/E' lat: 7.4 E/E' med: 8.3 MV E/A: 0.70 MV V2 max: 92.2 cm/sec MV P1/2t max ankur: 85.2 cm/sec Ao V2 max: 148.3 cm/sec MV max P.4 mmHg MV P1/2t: 60.8 msec Ao max P.8 mmHg MV V2 mean: 54.1 cm/sec MV dec slope: 410.6 cm/sec2 MV mean P.4 mmHg MV V2 VTI: 23.1 cm MVA(P1/2t): 3.6 cm2 AI max ankur: 478.7 cm/sec LV V1 max: 146.2 cm/sec PA V2 max: 69.0 cm/sec AI max P.7 mmHg LV V1 max P.5 mmHg AI dec slope: 248.1 cm/sec2 AI P1/2t: 565.1 msec TR max ankur: 223.6 cm/sec TR max P.0 mmHg ECHO/Echo Complete Interpretation Summary Normal LV size. Left ventricular systolic function is normal. The estimated ejection fraction is 60 %. Stage 1 diastolic dysfunction. Bubble contrast study negative for right to left interatrial shunt. Ordering Physician: Jeniffer Campos Referring Physician: Mary Ann Fofana Performed By: Juan Carlos Cramer RCS
--- NOTE | 2021-06-21 21:09 | EKG12_ITS ---
Test Reason : CP ADMIT Blood Pressure : / mmHG Vent. Rate : 101 BPM Atrial Rate : 101 BPM P-R Int : 152 ms QRS Dur : 076 ms QT Int : 378 ms P-R-T Axes : 061 008 051 degrees QTc Int : 490 ms Sinus tachycardia Otherwise normal ECG When compared with ECG of 30-JUL-2020 09:58, No significant change was found Confirmed by DORIS WOO, FADUMO ([id number]), editor in chief ANAT GONZALEZ ([id number]) on 06/24/2021 1:55:01 PM Referred By: ELVA Confirmed By:FADUMO GEORGE MD
--- NOTE | 2021-06-21 21:12 | PCS.PANDOC ---
PANDEMIC DOCUMENTATION INITIATED: Date: 03/17/2021 Time: 190
[2021-06-21 22:08] LABS: Ammonia < 10.0 umol/L (11-32)
[2021-06-21 22:09] LABS: Troponin-I HS 28 pg/mL (3.0-54.0)
[2021-06-21] MEDS: Temazepam 15 MG Capsule 30 MG PO (22:14)
[2021-06-21] MEDS: Acetaminophen 325 MG Tablet 650 MG PO (22:14)
[2021-06-21] MEDS: 0.9% Normal Saline 1,000 ML 100 ML IV (22:15)
[2021-06-22] VITALS (11 sets, daily range): BP systolic 104–134; BP diastolic 82–98; PULSE 83–99; RESP 16–20; TEMP 36–36.9; O2SAT 95–100
[2021-06-22 02:07] LABS: Troponin-I HS 27 pg/mL (3.0-54.0)
[2021-06-22 06:07] LABS: Absolute Lymphocyte Count 1.66 X10^3/uL (0.83-4.51); Absolute Neutrophil Count 1.4 X10^3/uL (2.0-7.7); Basophil# 0.02 X10^3/uL; Basophil% 0.5 % (0-1); Eosinophil# 0.11 X10^3/uL; Hematocrit 32.4 % (37-47); Hemoglobin 10.6 g/dL (12.0-15.0); Lymphocyte # 1.66 X10^3/ul (0.83-4.51); Lymphocyte % 45.6 % (19-41); Mean Corp Hgb Conc 32.7 g/dL (32-36); Mean Corpuscular Hgb 26.3 pg (27.0-32.0); Mean Corpuscular Volume 80.4 fL (81-99); Mean Platelet Vol. 9.2 fl (6.2-12.0); Monocyte# 0.45 X10^3/uL; Monocyte% 12.4 % (0-10); NRBC Flagged by Analyzer 0 % (0-5); Neutrophil % 38.5 % (47-70); Platelet Count 239 K/mm3 (150-450); RBC Distribution Width CV 15.6 % (11.6-14.6); Red Blood Count 4.03 M/mm3 (4.2-5.4); White Blood Count 3.6 K/mm3 (4.4-11.0)
[2021-06-22 06:43] LABS: ALB/GLOB Ratio 0.8 RATIO (0.9-2.4); AST(SGOT) 24 U/L (15-37); Alanine Aminotransfer ALT/SGPT 19 U/L (13-56); Albumin, Serum 2.7 g/dL (3.2-5.0); Alkaline Phosphatase 93 U/L (45-117); Anion Gap 7 (5-15); BUN 11 mg/dL (7-18); BUN/Creat Ratio 11.2 RATIO (10-20); Calcium,Total 8.7 mg/dL (8.5-10.1); Chloride 109 mmol/L (98-107); Cholesterol 202 mg/dL (200); Creatinine, Serum 0.98 mg/dL (0.55-1.02); EST Glomerular Filtration Rate 61 mL/min (>60); Est Glom Filt Rate - Afr Amer 74 mL/min (>60); Estimated Creatinine Clearance 56.43 ml/min; Globulin 3.4 g/dL (2.2-4.2); Glucose 106 mg/dL (74-106); High Density Lipoprotein 102 mg/dL; Potassium 3.7 mmol/L (3.5-5.1); Protein, Total 6.1 g/dL (6.4-8.2); Sodium Level 138 mmol/L (136-145); Thyroid Stim Hormone (TSH) 1.76 uIU/mL (0.358-3.74); Triglycerides 65 mg/dL; Very Low Density Lipoprotein 13 mg/dL (5-40)
[2021-06-22 07:11] LABS: Hemoglobin A1c 5.8 % (3.8-5.6)
[2021-06-22] MEDS: 0.9% Normal Saline 1,000 ML 100 ML IV ×2 (08:02→20:07)
[2021-06-22] MEDS: Aspirin E.C. 81 MG Tablet PO (08:07)
[2021-06-22] MEDS: Acetaminophen 325 MG Tablet 650 MG PO ×2 (08:07→20:55)
--- NOTE | 2021-06-22 09:15 | MRI_ITS ---
HISTORY: CVA. TECHNIQUE: Multiplanar and multisequence MR images of the brain were obtained without gadolinium. # of images incl. paperwork: 289. COMPARISON: CT prior day. FINDINGS: BRAIN PARENCHYMA: Mild T2 FLAIR hyperintense signal in the bilateral cerebral white matter. No abnormal focus of restricted diffusion. INTRACRANIAL HEMORRHAGE: No acute intracranial hemorrhage. CSF SPACES: Cerebral ventricles, cortical sulci, and other extra-axial CSF spaces within normal limits in size for patient's age. No midline shift or other significant mass effect. No extra-axial fluid collection. VASCULAR SYSTEM: Major intracranial flow-voids maintained. ORBITS: Unremarkable. PARANASAL SINUSES AND MASTOID AIR CELLS: Clear. MRI/Brain without Contrast IMPRESSION: No evidence for acute infarct. Mild chronic small vessel ischemic gliosis. at 1054 Reported and signed by: Janie Guerra MD Electronically Signed: Janie Guerra MD at 10:53 EST Tel , Service support ,
[2021-06-22] MEDS: LORazepam 2 MG/ML Syringe 1 MG IV (09:18)
[2021-06-22] MEDS: 0.9% Saline Lock 10 ML Syringe IV (09:18)
[2021-06-22] MEDS: Enoxaparin 40 MG/0.4 ML Syringe SC (10:34)
[2021-06-22] MEDS: Pantoprazole Sodium 40 MG Tablet PO (10:35)
[2021-06-22] MEDS: Acyclovir 200 MG Capsule 400 MG PO (10:36)
[2021-06-22] MEDS: buPROPion (XL) 300 MG TABLET.XL PO (10:36)
--- NOTE | 2021-06-22 10:52 | NURSING ---
This RN called to update niecy rodriguez with the pt's permission. Pt's phone said that the caller was unable to take calls at this time. No voicemail avaliable.
--- NOTE | 2021-06-22 16:49 | PN.HOSP_ITS ---
Subjective Subjective Patient seen and examined. She was admitted with a complaint of left sided weakness and slurred speech as well as confusion as chest pain. She was admitted for a stroke rule out. Patient had no active complaints. She denied any focal weakness, or any mouth droop, numbness or tingling. She was awaiting MRI. Objective Data Objective Data Vital Signs: Vital Signs Temp Pulse Resp BP Pulse Ox 98.5 F 93 18 122/86 H 100 06/22/21 16:13 06/22/21 16:13 06/22/21 16:13 06/22/21 16:13 06/22/21 16:13 Oxygen Delivery Method Room Air Weight: 186 lb 4.65 oz Body Mass Index (BMI) 30.0 Intake & Output: Intake and Output for Last 24 Hours 06/20/21 06/21/21 06/22/21 23:59 23:59 23:59 Intake Total 1878.33 / 1878.33 Output Total 2300 / 2300 Balance -421.67 / -421.67 Lab / Micro Data Result Diagrams: 06/22/21 05:54 06/22/21 05:54 Labs: Laboratory Results - last 24 hr 06/21/21 18:50: WBC 5.6, RBC 4.46, Hgb 11.7 L, Hct 36.2 L, MCV 81.2, MCH 26.2 L, MCHC 32.3, RDW Std Deviation 45.7 H, RDW Coeff of Adelia 15.5 H, Plt Count 273, MPV 9.1, Immature Gran % (Auto) 0.200, Neut % (Auto) 41.6 L, Lymph % (Auto) 48.8 H, Pacific % (Auto) 8.5, Eos % (Auto) 0.5, Baso % (Auto) 0.4, Absolute Neuts (auto) 2.4, Absolute Lymphs (auto) 2.75, Nucleated RBC % 0 06/21/21 18:50: PT 11.9, INR 0.9, APTT 25.9 06/21/21 18:50: Sodium 135 L, Potassium 3.5, Chloride 107, Carbon Dioxide 17.0 L , Anion Gap 11, BUN 12, Creatinine 1.12 H, Estim Creat Clear Calc 47.46, Est GFR (MDRD) Af Amer 64, Est GFR (MDRD) Non-Af 53 L, BUN/Creatinine Ratio 10.7, Glucose 104, Calcium 9.6, Troponin I High Sens 27 06/21/21 18:50: Ethyl Alcohol 19.0 06/21/21 18:50: Magnesium 2.0 06/21/21 20:35: Urine Color Yellow, Urine Clarity Clear, Urine pH 6.5, Ur Specific Pound 1.010, Urine Protein Negative, Urine Glucose (UA) Normal, Urine Ketones Negative, Urine Occult Blood Negative, Urine Nitrite Negative, Urine Bilirubin Negative, Urine Urobilinogen Normal, Ur Leukocyte Esterase Negative, Urine RBC 0 SEEN, Urine WBC 0 SEEN, Ur Squamous Epith Cells 0-5 SEEN, Urine Bacteria 0 SEEN, Urine Mucus 0 SEEN 06/21/21 20:35: Urine Opiates Screen NEGATIVE, Urine Methadone Screen NEGATIVE, Ur Barbiturates Screen NEGATIVE, Ur Phencyclidine Scrn NEGATIVE, Ur Amphetamines Screen POSITIVE H, U Methamphetamin-MDMA NEGATIVE, U Benzodiazepines Scrn NEGATIVE, Urine Cocaine Screen NEGATIVE, U Cannabinoids Screen NEGATIVE, Ur Drug Screen Comment 06/21/21 21:35: Ammonia < 10.0 L 06/21/21 21:35: Troponin I High Sens 28 06/22/21 01:35: Troponin I High Sens 27 06/22/21 05:54: WBC 3.6 L, RBC 4.03 L, Hgb 10.6 L, Hct 32.4 L, MCV 80.4 L, MCH 26.3 L, MCHC 32.7, RDW Std Deviation 46.0 H, RDW Coeff of Adelia 15.6 H, Plt Count 239, MPV 9.2, Immature Gran % (Auto) 0.000, Neut % (Auto) 38.5 L, Lymph % (Auto) 45.6 H, Pacific % (Auto) 12.4 H, Eos % (Auto) 3.0, Baso % (Auto) 0.5, Absolute Neuts (auto) 1.4 L, Absolute Lymphs (auto) 1.66, Nucleated RBC % 0 06/22/21 05:54: Sodium 138, Potassium 3.7, Chloride 109 H, Carbon Dioxide 22.0, Anion Gap 7, BUN 11, Creatinine 0.98, Estim Creat Clear Calc 56.43, Est GFR (MDRD) Af Amer 74, Est GFR (MDRD) Non-Af 61, BUN/Creatinine Ratio 11.2, Glucose 106, Calcium 8.7, Total Bilirubin 0.40, AST 24, ALT 19, Alkaline Phosphatase 93, Total Protein 6.1 L, Albumin 2.7 L, Globulin 3.4, Albumin/Globulin Ratio 0.8 L, Triglycerides 65, Cholesterol 202 H, LDL Cholesterol 87, VLDL Cholesterol 13, HDL Cholesterol 102, TSH 1.76 06/22/21 05:54: Hemoglobin A1c 5.8 H Micro: Microbiology 06/21/21 20:37 Nasal Secretion SARS-CoV-2 Antigen (Rapid) - Final 06/21/21 19:04 Nasal Secretion SARS-CoV-2 Antigen (Rapid) - Final Radiography Diagnostic Testing: Radiology Impression Brain CT 06/21/21 18:27 IMPRESSION: No acute intracranial hemorrhage or mass effect. N.B. : The above Results were Read Back by Rakesh Hickey MD (Brooks) to Remus Soheila and understanding confirmed on 06/21/2021 18:43:37 (ET). Electronically Signed: Rakesh Hickey MD (Brooks) at 18:44 EST , Service support , Head/Neck CTA 06/21/21 18:55 IMPRESSION: No large vessel occlusion or intracranial aneurysm. No carotid dissection or hemodynamically significant stenosis. N.B. : The above Results were Read Back by Rakesh Hickey MD (Brooks) to Remus Ungur and understanding confirmed on 06/21/2021 19:45:15 (ET). Electronically Signed: Rakesh Hickey MD (Brooks) at 19:49 EST , Service support , ADDENDUM: 06/21/211955 IMPRESSION: No large vessel occlusion or intracranial aneurysm. No carotid dissection or hemodynamically significant stenosis. N.B. : The above Results were Read Back by Rakesh Hickey MD (Brooks) to Remus Ungur and understanding confirmed on 06/21/2021 19:45:15 (ET). Electronically Signed: Rakesh Hickey MD (Brooks) at 19:49 EST , Service support , Chest X-Ray 06/21/21 19:20 IMPRESSION: Nonacute portable x-ray examination of the chest. Electronically Signed: Rakesh Hickey MD (Brooks) at 19:42 EST , Service support , Brain MRI 06/22/21 09:15 IMPRESSION: No evidence for acute infarct. Mild chronic small vessel ischemic gliosis. at 1054 Reported and signed by: Janie Guerra MD Electronically Signed: Janie Guerra MD at 10:53 EST Tel , Service support , Physical Exam Const alert, oriented x3 and no apparent distress Exam Limitations: no limitations Nutritional Appearance: overweight HEENT head/scalp atraumatic, moist oral mucous membranes, oropharynx normal and dentition normal Head and Scalp: normocephalic Eyes PERRL, EOMs intact bilaterally and conjunctivae normal Neck no lymphadenopathy Resp Resp Narrative: diminished breath sounds bibasally, on room air. Cardio regular rate, regular rhythm, S1 normal heart sound, S2 normal heart sound and no murmurs GI normal to inspection, nondistended, normoactive bowel sounds, soft to palpation, non-tender and non-distended Extremity normal to inspection, full ROM and no clubbing, cyanosis or edema Peripheral Pulses: Yes pulses 2+ throughout Skin no rashes or lesions noted Neuro oriented x3, CN's II-XII intact bilaterally and moves all extremities Sensorium / Orientation: awake and alert Psych affect normal Assessment & Plan Assessment/Plan (1) Acute confusion: (2) Nausea & vomiting: PLAN: #Acute metabolic encephalopathy with left sided weakness and slurred speech * MRI of the brain is negative for any evidence of stroke and showed mild chronic small vessel ischemic gliosis * on aspirin. * PT/OT on board. Fall precautions * ammonia level was <10 * #Chest pain * tropnins x 3 were negative. * EKG showed no acute ST changes * for stress test tomorrow * 2D echo for tomorrow * #Chronic iron deficiency anemia: * has a sof preivous GI bleed, and also needs recurrent transfusions and iron administration. * follows with hematology on outpatient basis. * Hb is stable. #Chronic pain syndrome: Flexeril #Inflammatory bowel syndrome: On plecanatide (Trulance) chronically #Hypertension: Resume BP meds as stroke has been ruled out. Triamterene hydrochlorothiazide #Hyperlipidemia: * Cholesterol is 202 and LDL of 87 and HDL of 102. * WIll hold off on starting statins for now and advocate diet and healthy lifestyle changes. #GERD: On PPI #Anxiety and depression: On bupropion and temazepam DVT prophylaxis; lovenox Charges/Coding Visit Charges OBSV E&M: 34786 Subsequent observation care L2
[2021-06-22] MEDS: Temazepam 15 MG Capsule 30 MG PO (20:55)
[2021-06-23 03:00] VITALS: PULSE 92
[2021-06-23] MEDS: 0.9% Normal Saline 1,000 ML 100 ML IV (05:56)
[2021-06-23] MEDS: Aspirin E.C. 81 MG Tablet PO (06:02)
[2021-06-23 06:03] VITALS: BP 116/89; PULSE 82; RESP 16; TEMP 36.6; O2SAT 100
[2021-06-23 06:04] LABS: Absolute Lymphocyte Count 1.94 X10^3/uL (0.83-4.51); Basophil# 0.03 X10^3/uL; Basophil% 0.9 % (0-1); Eosinophil# 0.16 X10^3/uL; Eosinophils% 4.6 % (0-5); Hematocrit 33.2 % (37-47); Hemoglobin 10.4 g/dL (12.0-15.0); Lymphocyte # 1.94 X10^3/ul (0.83-4.51); Lymphocyte % 56.1 % (19-41); Mean Corp Hgb Conc 31.3 g/dL (32-36); Mean Corpuscular Hgb 26.3 pg (27.0-32.0); Mean Corpuscular Volume 83.8 fL (81-99); Mean Platelet Vol. 9.8 fl (6.2-12.0); Monocyte# 0.32 X10^3/uL; Monocyte% 9.2 % (0-10); NRBC Flagged by Analyzer 0 % (0-5); Neutrophil % 28.9 % (47-70); Platelet Count 242 K/mm3 (150-450); RBC Distribution Width CV 15.7 % (11.6-14.6); RBC Distribution Width SD 48.4 fl (35.1-43.9); Red Blood Count 3.96 M/mm3 (4.2-5.4); White Blood Count 3.5 K/mm3 (4.4-11.0)
[2021-06-23 06:33] VITALS: PULSE 92
[2021-06-23 06:51] LABS: Anion Gap 5 (5-15); BUN 12 mg/dL (7-18); BUN/Creat Ratio 11.4 RATIO (10-20); Calcium,Total 8.4 mg/dL (8.5-10.1); Chloride 113 mmol/L (98-107); Creatinine, Serum 1.05 mg/dL (0.55-1.02); EST Glomerular Filtration Rate 57 mL/min (>60); Est Glom Filt Rate - Afr Amer 68 mL/min (>60); Estimated Creatinine Clearance 52.67 ml/min; Glucose 103 mg/dL (74-106); Sodium Level 140 mmol/L (136-145)
[2021-06-23 07:32] VITALS: O2SAT 97
--- NOTE | 2021-06-23 10:49 | PCM.DC ---
Discharge Instructions Diet Discharge Diet: No restrictions Activity Discharge Activity: Return to Normal Activity Weight Bearing Status: Weight bearing as tolerated Dressing / Incision Call your doctor if you observe: Fever of 101 or Higher, Numbness or Tingling, Shortness of breath, Dizziness, Chest pain, Increased palpitations (irregular heartbeat) and Calf discomfort Follow Up Care Please Follow Up With: Primary care provider When: Within the next two weeks. Test Results: Test results from this visit will be discussed in further detail at your follow-up appointment, if applicable. Discharge Plan Admission Admit Date/Time: 06/21/21 20:08 Attending Provider: Manny Ann Primary Care Provider: Mary Ann Fofana Discharge Orders/Prescriptions Prescriptions: Continued medical marijauna PO RF: 0 valacyclovir [Valtrex] 500 mg tablet 500 mg PO DAILY Qty: 90 RF: 3 (DME) syringe with needle 1 mL 25 gauge x 1 syringe See Rx Instructions .ROUTE .MEDSUPPLY Qty: 100 RF: 0 temazepam 30 MG capsule 30 mg PO QHS RF: 0 cyclobenzaprine 10 mg tablet 20 mg PO TID RF: 0 Trulance 3 mg tablet 3 mg DAILY RF: 0 (DME) rollator walker with seat See Rx Instructions .Route .MEDSUPPLY Qty: 1 RF: 0 cyanocobalamin (vitamin B-12) 1,000 mcg/mL solution 1,000 mcg IM Q30D Qty: 1 RF: 2 diclofenac sodium 1 % gel 4 g TOPICAL .QID Qty: 100 RF: 1 triamterene-hydrochlorothiazid 37.5-25 mg capsule 1 cap PO DAILY Qty: 90 RF: 1 omeprazole 40 mg capsule,delayed release(DR/EC) 40 mg PO DAILY Qty: 90 RF: 1 bupropion HCl 300 mg tablet extended release 24 hr 300 mg PO QAM Qty: 60 RF: 2 albuterol sulfate 90 mcg/actuation HFA aerosol inhaler 2 puff INHALATION Q4H PRN PRN (Reason: SOB, wheezing) Qty: 8.5 RF: 1 ergocalciferol (vitamin D2) 1,250 mcg (50,000 unit) capsule 50,000 unit PO 2XW 90 Days Qty: 60 RF: 3 Referrals / Follow Up: Mary Ann Fofana MD [Primary Care Provider] - Within 2 Weeks Disposition Disposition (needs filled in before D/C Order can be placed): Home, Self Care
--- NOTE | 2021-06-23 11:18 | PHA.DC.MR ---
Pharmacy Service has performed discharge medication reconciliation for this patient. The patient's discharge medication list was reviewed for discrepancies and discrepancies were resolved. Home Medications temazepam 30 mg PO QHS 03/16/16 rollator walker with seat #1 ea 10/09/20 medical marijauna PO 10/16/20 cyclobenzaprine 10 mg tablet 20 mg PO TID 10/24/20 valacyclovir 500 mg tablet 500 mg PO DAILY #90 tablet 10/24/20 cyanocobalamin (vitamin B-12) 1,000 mcg/mL injection solution 1,000 mcg IM Q30D #1 ml 12/20/20 diclofenac sodium 1 % topical gel 4 g TOPICAL .QID #100 g 03/03/21 omeprazole 40 mg capsule,delayed release 40 mg PO DAILY #90 cap 03/03/21 triamterene 37.5 mg-hydrochlorothiazide 25 mg capsule 1 cap PO DAILY #90 cap 03/03/21 syringe with needle 1 mL 25 gauge x 1 #100 ea 03/05/21 bupropion HCl 300 mg 24 hr tablet, extended release 300 mg PO QAM #60 tab 03/24/21 albuterol sulfate 90 mcg/actuation aerosol inhaler 2 puff INHALATION Q4H PRN PRN #8.5 g 04/16/21 ergocalciferol (vitamin D2) 1,250 mcg (50,000 unit) capsule 50,000 unit PO 2XW 90 Days #60 cap 06/10/21 Trulance 3 mg DAILY 06/21/21
[2021-06-23 11:21] VITALS: BP 124/83; PULSE 89; RESP 18; TEMP 36.5; O2SAT 100
[2021-06-23] MEDS: buPROPion (XL) 300 MG TABLET.XL PO (11:22)
[2021-06-23] MEDS: Triamterene 37.5MG/Hctz 25MG Capsule 1 CAP PO (11:22)
[2021-06-23] MEDS: Pantoprazole Sodium 40 MG Tablet PO (11:22)
[2021-06-23] MEDS: Acyclovir 200 MG Capsule 400 MG PO (11:22)
--- NOTE | 2021-06-23 11:33 | STRESSREP ---
Stress Test Report Pharmacologic myocardial perfusion stress test. 61-year-old lady with a history of chest pain. Stress protocol: Resting EKG demonstrates normal sinus rhythm with a rate of 76 bpm normal intervals are noted resting blood pressure is 140/90 mmHg. 0.4 mg of regadenoson was infused per usual protocol followed by Intravenous saline flush injection continuous EKG monitoring was performed. The maximum heart rate attained was 129 bpm which was 81% of maximum predicted heart rate the maximum workload was 1 metabolic equivalent. At rest there were no ST or T wave changes noted to suggest abnormal flow reserve and at peak infusion nonspecific ST changes were noted. The maximum blood pressure is 140/90 mmHg. Myocardial perfusion protocol. 12.0 mCi of technetium 99m sestamibi was injected at rest. 0.4 mg of regadenoson was infused per usual protocol. At peak infusion 33.3 mCi of technetium 99m sestamibi was injected stress images were obtained stress and rest images were reconstructed and compared in the short axis vertical long horizontal long axis. Gated images were also obtained. Perfusion SPECT analysis: Review of the stress images demonstrate normal uptake of tracer noted in all areas of the myocardium. The resting images similarly demonstrate normal uptake of tracer noted in all areas of the myocardium. No areas of reversibility are noted to suggest ischemia and no previous infarct is noted. Gated SPECT analysis: The gated ejection fraction is 78%. Conclusion: Normal pharmacologic myocardial perfusion stress test. Preserved ejection fraction.
--- NOTE | 2021-06-23 12:26 | PCM.DC.SUM ---
Documented by User: Nehemias RYO 06/23/21 12:36 Providers Date of Admission: 06/21/21 Primary Care Physician: Dr. Mary Ann Fofana MD Reason For Visit: CVA, CP Diagnosis Discharge Diagnosis (1) Acute confusion: Status: Acute Code(s): R41.0 - Disorientation, unspecified (2) Nausea & vomiting: Status: Acute Code(s): R11.2 - Nausea with vomiting, unspecified Medications at Discharge Home Medications temazepam 30 mg PO QHS 03/16/16 rollator walker with seat #1 ea 10/09/20 medical marijauna PO 10/16/20 cyclobenzaprine 10 mg tablet 20 mg PO TID 10/24/20 valacyclovir 500 mg tablet 500 mg PO DAILY #90 tablet 10/24/20 cyanocobalamin (vitamin B-12) 1,000 mcg/mL injection solution 1,000 mcg IM Q30D #1 ml 12/20/20 diclofenac sodium 1 % topical gel 4 g TOPICAL .QID #100 g 03/03/21 omeprazole 40 mg capsule,delayed release 40 mg PO DAILY #90 cap 03/03/21 triamterene 37.5 mg-hydrochlorothiazide 25 mg capsule 1 cap PO DAILY #90 cap 03/03/21 syringe with needle 1 mL 25 gauge x 1 #100 ea 03/05/21 bupropion HCl 300 mg 24 hr tablet, extended release 300 mg PO QAM #60 tab 03/24/21 albuterol sulfate 90 mcg/actuation aerosol inhaler 2 puff INHALATION Q4H PRN PRN #8.5 g 04/16/21 ergocalciferol (vitamin D2) 1,250 mcg (50,000 unit) capsule 50,000 unit PO 2XW 90 Days #60 cap 06/10/21 Trulance 3 mg DAILY 06/21/21 Hospital Course Procedures 2-D Echocardiogram, Nuclear stress test and Transthoracic echo Summary of Care Provided Minutes Spent on Discharge: 35 Hospital Course: Patient is a 61-year-old female who was admitted to the hospital on 06/21/2021 with a chief complaint of chest pain and left-sided weakness. Patient was admitted for management and evaluation of chest pain and potential stroke rule out. Brain MRI was negative for any evidence of acute infarct. Head/neck CTA demonstrated no large vessel occlusion or intracranial aneurysm. No carotid dissection or hemodynamically significant stenosis. Stroke was effectively ruled out in this patient, although she continues to have ongoing left-sided weakness/numbness complaints. Considering possibility of conversion disorder for explanation of patient's symptoms, as she was able to ambulate with physical therapy and did not seem to need a significant amount of assistance and did not appear concerned about returning home. Stress test demonstrated normal cardiac perfusion with preserved ejection fraction. Echocardiogram demonstrated normal LV size and systolic function, an estimated EF of 60% and stage I diastolic dysfunction. Echo was negative for left intra-arterial shunt. Patient will be discharged today and is to follow-up with primary care provider within the next 2 weeks. Patient seen by Nehemias Butler PA-C, under the supervision of Dr. Ann. Physical Exam Narrative Patient is a 61-year-old female comfortably resting in bed, alert and orient x3. Patient reports resolution of chest pain from admission, still reports some weakness and numbness throughout her extremities. Does not appear in acute distress. Const alert, oriented x3 and no apparent distress HEENT normocephalic, head/scalp atraumatic and hearing grossly normal bilaterally Eyes PERRL, EOMs intact bilaterally and conjunctivae normal Neck no lymphadenopathy, supple and no JVD Resp normal respiratory effort, no retractions, no use of accessory muscles and clear to auscultation bilaterally Cardio regular rate, regular rhythm, no murmurs and no JVD GI normal to inspection, nondistended, normoactive bowel sounds, soft to palpation and non-tender Extremity normal to inspection, full ROM and no clubbing, cyanosis or edema Skin no rashes or lesions noted, no wounds and skin turgor normal Neuro CN's II-XII intact bilaterally Psych affect normal Weight / BMI Weight Weight: 186 lb 4.65 oz Body Mass Index (BMI) 30.0 ABG / Lab / Microbiology Data Result Diagrams: 06/23/21 05:29 06/23/21 05:29 Laboratory: Laboratory Results - last 24 hr 06/23/21 05:29: WBC 3.5 L, RBC 3.96 L, Hgb 10.4 L, Hct 33.2 L, MCV 83.8, MCH 26.3 L, MCHC 31.3 L, RDW Std Deviation 48.4 H, RDW Coeff of [place] 15.7 H, Plt Count 242, MPV 9.8, Immature Gran % (Auto) 0.300, Neut % (Auto) 28.9 L, Lymph % (Auto) 56.1 H, [place] % (Auto) 9.2, Eos % (Auto) 4.6, Baso % (Auto) 0.9, Absolute Neuts (auto) 1.0 L, Absolute Lymphs (auto) 1.94, Nucleated RBC % 0 06/23/21 05:29: Sodium 140, Potassium 4.0, Chloride 113 H, Carbon Dioxide 22.0, Anion Gap 5, BUN 12, Creatinine 1.05 H, Estim Creat Clear Calc 52.67, Est GFR (MDRD) Af Amer 68, Est GFR (MDRD) Non-Af 57 L, BUN/Creatinine Ratio 11.4, Glucose 103, Calcium 8.4 L Microbiology: Microbiology 06/21/21 20:37 Nasal Secretion SARS-CoV-2 Antigen (Rapid) - Final 06/21/21 19:04 Nasal Secretion SARS-CoV-2 Antigen (Rapid) - Final Radiography Diagnostic Testing: Radiology Impression Echocardiogram 06/21/21 21:09 Interpretation Summary Normal LV size. Left ventricular systolic function is normal. The estimated ejection fraction is 60 %. Stage 1 diastolic dysfunction. Bubble contrast study negative for right to left interatrial shunt. Ordering Physician: Jeniffer Campos Referring Physician: Mary Ann Fofana Performed By: Juan Carlos Cramer RCS D/C Instructions Discharge Diet: No restrictions Weight Bearing Status: Weight bearing as tolerated Call your doctor if you observe: Fever of 101 or Higher, Numbness or Tingling, Shortness of breath, Dizziness, Chest pain, Increased palpitations (irregular heartbeat) and Calf discomfort Please Follow Up With: Primary care provider When: Within the next two weeks. Meaningful Use Info Meaningful Use Diagnoses (Choose all that apply): None applicable Discharge Plan Admission Admit Date/Time: 06/21/21 20:08 Attending Provider: Manny Ann Primary Care Provider: Mary Ann Fofana Discharge Orders/Prescriptions Prescriptions: Continued medical marijauna PO RF: 0 valacyclovir [Valtrex] 500 mg tablet 500 mg PO DAILY Qty: 90 RF: 3 (DME) syringe with needle 1 mL 25 gauge x 1 syringe See Rx Instructions .ROUTE .MEDSUPPLY Qty: 100 RF: 0 temazepam 30 MG capsule 30 mg PO QHS RF: 0 cyclobenzaprine 10 mg tablet 20 mg PO TID RF: 0 Trulance 3 mg tablet 3 mg DAILY RF: 0 (DME) rollator walker with seat See Rx Instructions .Route .MEDSUPPLY Qty: 1 RF: 0 cyanocobalamin (vitamin B-12) 1,000 mcg/mL solution 1,000 mcg IM Q30D Qty: 1 RF: 2 diclofenac sodium 1 % gel 4 g TOPICAL .QID Qty: 100 RF: 1 triamterene-hydrochlorothiazid 37.5-25 mg capsule 1 cap PO DAILY Qty: 90 RF: 1 omeprazole 40 mg capsule,delayed release(DR/EC) 40 mg PO DAILY Qty: 90 RF: 1 bupropion HCl 300 mg tablet extended release 24 hr 300 mg PO QAM Qty: 60 RF: 2 albuterol sulfate 90 mcg/actuation HFA aerosol inhaler 2 puff INHALATION Q4H PRN PRN (Reason: SOB, wheezing) Qty: 8.5 RF: 1 ergocalciferol (vitamin D2) 1,250 mcg (50,000 unit) capsule 50,000 unit PO 2XW 90 Days Qty: 60 RF: 3 Referrals / Follow Up: Mary Ann Fofana MD [Primary Care Provider] - Within 2 Weeks Disposition Disposition (needs filled in before D/C Order can be placed): Home, Self Care Documented by User: Dr. Manny Ann MD 06/23/21 16:43 Providers Date of Admission: 06/21/21 Reason For Visit: CVA, CP Medications at Discharge Home Medications temazepam 30 mg PO QHS 03/16/16 rollator walker with seat #1 ea 10/09/20 medical marijauna PO 10/16/20 cyclobenzaprine 10 mg tablet 20 mg PO TID 10/24/20 valacyclovir 500 mg tablet 500 mg PO DAILY #90 tablet 10/24/20 cyanocobalamin (vitamin B-12) 1,000 mcg/mL injection solution 1,000 mcg IM Q30D #1 ml 12/20/20 diclofenac sodium 1 % topical gel 4 g TOPICAL .QID #100 g 03/03/21 omeprazole 40 mg capsule,delayed release 40 mg PO DAILY #90 cap 03/03/21 triamterene 37.5 mg-hydrochlorothiazide 25 mg capsule 1 cap PO DAILY #90 cap 03/03/21 syringe with needle 1 mL 25 gauge x 1 #100 ea 03/05/21 bupropion HCl 300 mg 24 hr tablet, extended release 300 mg PO QAM #60 tab 03/24/21 albuterol sulfate 90 mcg/actuation aerosol inhaler 2 puff INHALATION Q4H PRN PRN #8.5 g 04/16/21 ergocalciferol (vitamin D2) 1,250 mcg (50,000 unit) capsule 50,000 unit PO 2XW 90 Days #60 cap 06/10/21 Trulance 3 mg DAILY 06/21/21 ABG / Lab / Microbiology Data Result Diagrams: 06/23/21 05:29 06/23/21 05:29 Discharge Plan Admission Admit Date/Time: 06/21/21 20:08 Attending Provider: Manny Ann Primary Care Provider: Mary Ann Fofana Discharge Orders/Prescriptions Prescriptions: Continued medical marijauna PO RF: 0 valacyclovir [Valtrex] 500 mg tablet 500 mg PO DAILY Qty: 90 RF: 3 (DME) syringe with needle 1 mL 25 gauge x 1 syringe See Rx Instructions .ROUTE .MEDSUPPLY Qty: 100 RF: 0 temazepam 30 MG capsule 30 mg PO QHS RF: 0 cyclobenzaprine 10 mg tablet 20 mg PO TID RF: 0 Trulance 3 mg tablet 3 mg DAILY RF: 0 (DME) rollator walker with seat See Rx Instructions .Route .MEDSUPPLY Qty: 1 RF: 0 cyanocobalamin (vitamin B-12) 1,000 mcg/mL solution 1,000 mcg IM Q30D Qty: 1 RF: 2 diclofenac sodium 1 % gel 4 g TOPICAL .QID Qty: 100 RF: 1 triamterene-hydrochlorothiazid 37.5-25 mg capsule 1 cap PO DAILY Qty: 90 RF: 1 omeprazole 40 mg capsule,delayed release(DR/EC) 40 mg PO DAILY Qty: 90 RF: 1 bupropion HCl 300 mg tablet extended release 24 hr 300 mg PO QAM Qty: 60 RF: 2 albuterol sulfate 90 mcg/actuation HFA aerosol inhaler 2 puff INHALATION Q4H PRN PRN (Reason: SOB, wheezing) Qty: 8.5 RF: 1 ergocalciferol (vitamin D2) 1,250 mcg (50,000 unit) capsule 50,000 unit PO 2XW 90 Days Qty: 60 RF: 3 Referrals / Follow Up: Mary Ann Fofana MD [Primary Care Provider] - Within 2 Weeks Disposition Disposition (needs filled in before D/C Order can be placed): Home, Self Care Charges/Coding Addendum Addendum: Dr. Ann: I personally reviewed the chart and examined the patient, and agree with the above findings. 61-year-old female presents to the hospital with chest pain resolved strokelike symptoms. While she was on the way to the hospital she developed slurred speech, left-sided weakness, and confusion which led to the EMS calling notes stroke alert. MRI is negative for stroke and stress test was negative for any type of cardiac issue, and echo was unremarkable. Upon further evaluation of her, there does appear to be a psychiatric component. She does have a history of anxiety and ADHD, she told the physician assistant paralegal that she can move her legs and then she was able to ambulate with therapy and then she told me that she had no weakness. Her chest pain is completely resolved. I discussed with her the plan for possible discharge today she expressed understanding of the risk and benefits of going home and would like to go home today. I did talk to her about finding a psychiatrist to help with her anxiety, ADHD, and possible conversion disorder Visit Charges OBSV E&M: [id number] Observation care discharge
--- NOTE | 2021-06-23 12:30 | CASEMGMT ---
This RN CM to room and pt states no concerns with going home at time of discharge. Pt voices no further concerns/needs for resources. SStaten RN CM
--- NOTE | 2021-06-23 13:43 | CASEMGMT ---
SW did not complete a PHQ 9 as per chart patient did not have a Stroke. Barbara BRADFORD
== END 2021-06-23 11:06 | disposition home or self-care (01) ==
LOC: ED 20:11 → PCU 20:26
PROVIDERS: Student in an Organized Health Care Education/Training Program; Admitting Provider Family Medicine; Emergency Provider Emergency Medicine; PCP Internal Medicine; Visit Provider Family Medicine
DX: R07.9 Chest pain, unspecified (principal); G93.41 Metabolic encephalopathy; R53.1 Weakness; R47.81 Slurred speech; I10 Essential (primary) hypertension; E66.9 Obesity, unspecified; F90.9 Attention-deficit hyperactivity disorder, unspecified type; F43.10 Post-traumatic stress disorder, unspecified; F32.A Depression, unspecified; R29.700 NIHSS score 0; E78.5 Hyperlipidemia, unspecified; G89.4 Chronic pain syndrome; K58.1 Irritable bowel syndrome with constipation; Z68.32 Body mass index [BMI] 32.0-32.9, adult; D50.9 Iron deficiency anemia, unspecified; K21.9 Gastro-esophageal reflux disease without esophagitis; R11.2 Nausea with vomiting, unspecified; R20.0 Anesthesia of skin; Z79.899 Other long term (current) drug therapy; Z98.84 Bariatric surgery status; Z87.891 Personal history of nicotine dependence; Z92.3 Personal history of irradiation
CPT/HCPCS: 36415; 70450; 70496; 70498; 70551; 71045; 78452; 80048; 80053; 80061; 80307; 81001; 82077; 82140; 83036; 83735; 84443; 84484; 85025; 85610; 85730; 87426; 93005; 93017; 93306; 94762; 96361; 96372; 96374; 97162; 97166; 97802; 99218; 99285; A9500; J7030; Q9967; A4216; G0378; J2785

== ENCOUNTER 2022-07-07 12:16 | Emergency (ER) | payer MEDICARE, MEDICAID, SELFPAY ==
[2022-07-07 12:17] VITALS: BP 127/92; PULSE 98; RESP 16; TEMP 36.6; O2SAT 97; BMI 28.4
[2022-07-07 12:21] VITALS: BP 127/92; PULSE 98; RESP 16; TEMP 36.6; O2SAT 97; O2SAT 98
--- NOTE | 2022-07-07 13:01 | EKG12_ITS ---
Test Reason : SOB Blood Pressure : / mmHG Vent. Rate : 075 BPM Atrial Rate : 075 BPM P-R Int : 156 ms QRS Dur : 074 ms QT Int : 406 ms P-R-T Axes : 066 002 048 degrees QTc Int : 453 ms Normal sinus rhythm Possible Left atrial enlargement Borderline ECG Confirmed by ZONIA WOO, TO ([id number]), editor magazine ANAT GONZALEZ ([id number]) on 07/09/2022 9:35:06 AM Referred By: Confirmed By:TO BRAR MD
--- NOTE | 2022-07-07 13:02 | ED.VIS.DYS ---
HPI History of Present Illness Chief Complaint: Shortness of Breath Informant: patient Narrative Narrative: 62-year-old female presenting to the emergency room with a chief complaint of weakness and shortness of breath. The patient has a history of iron deficiency anemia. She states that she last had to have a blood transfusion last year. She had been following with Dr. Tilley from hematology. She states that she has not seen him since the middle of the year. She does not currently have a family doctor. She denies any black or bloody stools or any known loss of blood. She states that she feels short of breath both at rest and with exertion. She states that she is not having any chest pain or syncope. She denies any fevers or chills or URI symptoms. She states that at times she feels more confused than normal. However she cannot provide any examples of this confusion [facility] Medical History ADHD (attention deficit hyperactivity disorder) Anemia Anxiety and depression B12 deficiency Chest pain Chronic pain h/o blood transfusions h/o iron transfusions Health care maintenance Hypertension Insomnia Obesity (BMI 30-39.9) Tenonitis TMJ (temporomandibular joint syndrome) Home Medications temazepam 30 mg capsule 30 mg PO QHS 03/16/16 [History Last Taken 03/15/16] rollator walker with seat #1 ea 10/09/20 [Rx Last Taken Unknown] medical marijauna PO 10/16/20 [History Last Taken Unknown] cyclobenzaprine 10 mg tablet 20 mg PO TID 10/24/20 [History Last Taken Unknown] cyanocobalamin (vitamin B-12) 1,000 mcg/mL injection solution 1,000 mcg IM Q30D #1 mL 12/20/20 [Rx Last Taken Unknown] diclofenac sodium 1 % topical gel 4 g topical .QID #100 grams 03/03/21 [Rx Last Taken Unknown] omeprazole 40 mg capsule,delayed release 40 mg PO DAILY #90 caps 03/03/21 [Rx Last Taken Unknown] triamterene 37.5 mg-hydrochlorothiazide 25 mg capsule 1 cap PO DAILY #90 caps 03/03/21 [Rx Last Taken Unknown] syringe with needle 1 mL 25 gauge x 1 #100 ea 03/05/21 [History Last Taken Unknown] albuterol sulfate 90 mcg/actuation aerosol inhaler 2 puff inhalation Q4H PRN PRN SOB, wheezing #8.5 grams 04/16/21 [Rx Last Taken Unknown] plecanatide 3 mg tablet (Trulance) 3 mg DAILY 06/21/21 [History Last Taken Unknown] bupropion HCl 300 mg 24 hr tablet, extended release 300 mg PO QAM #60 tabs 08/29/21 [Rx Last Taken Unknown] valacyclovir 500 mg tablet (Valtrex) 500 mg PO DAILY Herpes Flare #90 tabs 10/28/21 [Rx Last Taken Unknown] ergocalciferol (vitamin D2) 1,250 mcg (50,000 unit) capsule 50,000 unit PO Q2W 11/26/21 [History Last Taken Unknown] Allergy/AdvReac Type Severity Reaction Status Date / Time buprenorphine [From [facility]] Allergy Rash Verified 07/07/22 12:17 NSAIDS (Non-Steroidal AdvReac Nausea Verified 07/07/22 12:17 Anti-Inflamma Family History Father Myocardial infarction Alcohol abuse Mother CVA (cerebral vascular accident) Hypertension Thrombosis Alcohol abuse Sister Lupus Surgical History H/O gastric bypass Hx of bariatric surgery S/P Social History household members: other details: grandson housing: house current occupational status: retired and disabled history of recent travel: No Smoking Status: Unknown if ever smoked alcohol intake: never substance use type: does not use what type of physical activity do you participate in: none and walking seatbelt use: always do you feel safe at home: Yes additional social history: single ROS ROS ED ROS Narrative Generalized fatigue Constitutional Constitutional ED: Denies chills or weight loss Eyes Eyes: Denies change in vision or diplopia ENT ENT ED: Denies ear pain, rhinorrhea or sore throat Cardiovascular Cardiovascular: Denies chest pain, orthopnea, palpitations or racing heartbeat Respiratory/Chest Respiratory/Chest: Reports dyspnea and dyspnea on exertion; Denies cough or orthopnea Gastrointestinal Gastrointestinal: Denies abdominal pain, diarrhea, nausea or vomiting Genitourinary Genitourinary ED: Denies dysuria, hematuria or urinary frequency Musculoskeletal Musculoskeletal: Denies arthralgias or myalgias Integumentary Denies abscess or rash Neurologic Neurologic: Denies headache(s) or weakness Psychiatric Psychiatric: Denies anxiety, depression, suicidal ideation or suicidal thoughts Endocrine Endocrinology: Denies polydipsia, polyphagia or polyuria Allergic/Immunologic Allergic/Immunologic ED: Denies mouth swelling, tongue swelling or urticaria EXAM Physical Exam Const Vital Signs: 07/07/22 12:17 07/07/22 12:21 07/07/22 12:21 Temperature 97.8 F 97.8 F Temperature Source Temporal Temporal Pulse Rate 98 98 Respiratory Rate 16 16 Respiratory Effort Normal Respiratory Depth Normal Respiratory Pattern Normal Blood Pressure 127/92 H 127/92 H Blood Pressure Mean 103 103 Pulse Ox 97 97 Oxygen Delivery Method Room Air Room Air Room Air Positive well nourished and well developed General Appearance ED: well developed HEENT Reports normocephalic, head/scalp atraumatic and moist mucous membranes Eyes PERRL and EOMs intact bilaterally Neck no lymphadenopathy, supple and no JVD Resp normal respiratory effort and clear to auscultation bilaterally Cardio regular rate, regular rhythm and no murmurs GI normal to inspection, nondistended, normoactive bowel sounds and non-tender Palpation: soft Back/Spine no CVA tenderness and normal ROM Extremity normal to inspection General Extremety ED: Negative for edema General Extremity: Negative for edema Neuro oriented x3 and CN's II-XII intact bilaterally Sensorium / Orientation: alert Motor Exam: strength 5/5 throughout Psych mental status grossly normal Mood & Affect: Negative for depressed or tearful Skin no rashes or lesions noted and no wounds MDM MDM MDM Narrative Medical decision making narrative: Basic blood work shows a hemoglobin of 13.1 white count of 4.7 and platelet count of 282. CMP is negative. Troponin is 29. My interpretation of her chest x-ray is no prior.. EKG is a normal rhythm. At this point the patient will be discharged home. She is instructed to follow-up with primary care return if new symptoms or worsening Lab Data Attestation: I reviewed the patient's lab results. Labs: Laboratory Results - last 24 hr 07/07/22 07/07/22 14:28 14:28 WBC 4.7 RBC 4.94 Hgb 13.1 Hct 39.9 MCV 80.8 L MCH 26.5 L MCHC 32.8 RDW Std Deviation 50.6 H RDW Coeff of Adelia 17.2 H Plt Count 282 MPV 8.9 Immature Gran % (Auto) 0.200 Neut % (Auto) 45.8 L Lymph % (Auto) 44.9 H Mcpherson % (Auto) 7.0 Eos % (Auto) 1.5 Baso % (Auto) 0.6 Absolute Neuts (auto) 2.2 Absolute Lymphs (auto) 2.12 Nucleated RBC % 0 Sodium 134 L Potassium 3.9 Chloride 101 Carbon Dioxide 24.0 Anion Gap 9 BUN 18 Creatinine 1.13 H Estim Creat Clear Calc 48.32 Est GFR (MDRD) Af Amer 63 Est GFR (MDRD) Non-Af 52 L BUN/Creatinine Ratio 15.9 Glucose 100 Calcium 9.5 Total Bilirubin 0.40 AST 17 ALT 16 Alkaline Phosphatase 92 Troponin I High Sens 29 Total Protein 7.0 Albumin 3.3 Globulin 3.7 Albumin/Globulin Ratio 0.9 Radiography Diagnostic Testing: Clinical Impression(s) from Imaging Studies Chest X-Ray 07/07/22 13:50 IMPRESSION: No acute abnormality is seen. Electronically Signed: Javad Del Cid MD at 14:29 EST , EKG Initial EKG: Attestation: I personally reviewed and interpreted this EKG as follows: Comments: Normal sinus rhythm with a ventricular rate of 75 bpm Discharge Plan Triage Chief Complaint: Shortness of Breath ED Provider: Jose Houston Dx/Rx/DC Orders Clinical Impression: Near syncope, Acute dyspnea Instructions: ED Dyspnea Prescriptions: No Action medical marijauna PO (DME) syringe with needle 1 mL 25 gauge x 1 syringe See Rx Instructions .ROUTE .MEDSUPPLY Qty: 100 Rx Instructions: As directed ergocalciferol (vitamin D2) 1,250 mcg (50,000 unit) capsule 50,000 unit PO Q2W temazepam 30 MG capsule 30 mg PO QHS Label Comments: SLEEP cyclobenzaprine 10 mg tablet 20 mg PO TID Label Comments: leg spasm Trulance 3 mg tablet 3 mg DAILY (DME) rollator walker with seat See Rx Instructions .Route .MEDSUPPLY Qty: 1 0RF Rx Instructions: As directed cyanocobalamin (vitamin B-12) 1,000 mcg/mL solution 1,000 mcg IM Q30D Qty: 1 2RF diclofenac sodium 1 % gel 4 g TOPICAL .QID Qty: 100 1RF Rx Instructions: apply to single knee, ankle, foot; for foot includes sole/toes/top of foot triamterene-hydrochlorothiazid 37.5-25 mg capsule 1 cap PO DAILY Qty: 90 1RF omeprazole 40 mg capsule,delayed release(DR/EC) 40 mg PO DAILY Qty: 90 1RF albuterol sulfate 90 mcg/actuation HFA aerosol inhaler 2 puff INHALATION Q4H PRN PRN (Reason: SOB, wheezing) Qty: 8.5 1RF Label Comments: BREATHING bupropion HCl 300 mg tablet extended release 24 hr 300 mg PO QAM Qty: 60 2RF valacyclovir [Valtrex] 500 mg tablet 500 mg PO DAILY Qty: 90 1RF Primary Care Provider: Care Physician,No Primary Referrals: Mary Ann Fofana MD [Med Staff - Active Staff] - Randall Cárdenas MD [Med Staff - Lumber [employer]ier] - As soon as possible Disposition Disposition: Home, Self Care
--- NOTE | 2022-07-07 13:50 | RAD_ITS ---
STUDY: X-RAY CHEST REASON FOR EXAM: Female, 62 years old. Dyspnea TECHNIQUE: Single AP portable view of the chest. COMPARISON: Comparison is made with prior study dated 06/21/2021. FINDINGS: Stable elevation of the right hemidiaphragm. The lungs are clear. There is no demonstrated pleural abnormality. Normal size heart. Normal mediastinum and lucía. Normal visualized pulmonary arteries. Normal visualized aortic arch and descending thoracic aorta. Normal visualized thoracic spine. There is degenerative osteoarthritis of the bilateral shoulders. There is no demonstrated abnormality of the visualized soft tissue structures of the upper abdomen. RAD/Chest 1 View (Portable) IMPRESSION: No acute abnormality is seen. Electronically Signed: Javad Del Cid MD at 14:29 EST ,
--- NOTE | 2022-07-07 14:20 | NURSING ---
attempted iv x2 but unable. lab called for straight stick. no orders for meds yet. will see if needs iv yet. charge weigher aware.
[2022-07-07 14:35] LABS: Absolute Lymphocyte Count 2.12 X10^3/uL (0.83-4.51); Absolute Neutrophil Count 2.2 X10^3/uL (2.0-7.7); Basophil# 0.03 X10^3/uL; Basophil% 0.6 % (0-1); Eosinophil# 0.07 X10^3/uL; Eosinophils% 1.5 % (0-5); Hematocrit 39.9 % (37-47); Hemoglobin 13.1 g/dL (12.0-15.0); Lymphocyte # 2.12 X10^3/ul (0.83-4.51); Lymphocyte % 44.9 % (19-41); Mean Corp Hgb Conc 32.8 g/dL (32-36); Mean Corpuscular Hgb 26.5 pg (27.0-32.0); Mean Corpuscular Volume 80.8 fL (81-99); Mean Platelet Vol. 8.9 fl (6.2-12.0); Monocyte# 0.33 X10^3/uL; NRBC Flagged by Analyzer 0 % (0-5); Neutrophil # 2.16 X10^3/uL (2.7-7.7); Neutrophil % 45.8 % (47-70); Platelet Count 282 K/mm3 (150-450); RBC Distribution Width CV 17.2 % (11.6-14.6); RBC Distribution Width SD 50.6 fl (35.1-43.9); Red Blood Count 4.94 M/mm3 (4.2-5.4); White Blood Count 4.7 K/mm3 (4.4-11.0)
[2022-07-07 14:53] LABS: ALB/GLOB Ratio 0.9 RATIO (0.9-2.4); AST(SGOT) 17 U/L (15-37); Alanine Aminotransfer ALT/SGPT 16 U/L (13-56); Albumin, Serum 3.3 g/dL (3.2-5.0); Alkaline Phosphatase 92 U/L (45-117); Anion Gap 9 (5-15); BUN 18 mg/dL (7-18); BUN/Creat Ratio 15.9 RATIO (10-20); Calcium,Total 9.5 mg/dL (8.5-10.1); Chloride 101 mmol/L (98-107); Creatinine, Serum 1.13 mg/dL (0.55-1.02); EST Glomerular Filtration Rate 52 mL/min (>60); Est Glom Filt Rate - Afr Amer 63 mL/min (>60); Estimated Creatinine Clearance 48.32 ml/min; Globulin 3.7 g/dL (2.2-4.2); Glucose 100 mg/dL (74-106); Potassium 3.9 mmol/L (3.5-5.1); Sodium Level 134 mmol/L (136-145); Troponin-I HS 29 pg/mL (3.0-54.0)
[2022-07-07 15:18] VITALS: BP 122/71; PULSE 91; RESP 16; O2SAT 100
[2022-07-07 15:21] VITALS: BP 114/87; PULSE 85; RESP 16; TEMP 36.7; O2SAT 100
== END 2022-07-07 15:45 | disposition home or self-care (01) ==
PROVIDERS: Emergency Provider Emergency Medicine; Visit Provider Emergency Medicine
DX: R55 Syncope and collapse (principal); R41.0 Disorientation, unspecified; I10 Essential (primary) hypertension; R06.00 Dyspnea, unspecified; E66.9 Obesity, unspecified; Z79.899 Other long term (current) drug therapy
CPT/HCPCS: 36415; 71045; 80053; 84484; 85025; 93005; 99282

== ENCOUNTER 2022-10-09 17:21 | Emergency (ER) | payer MEDICARE, MEDICAID, SELFPAY ==
[2022-10-09 17:22] VITALS: BP 110/79; PULSE 110; RESP 18; TEMP 37; O2SAT 99; BMI 28.2
--- NOTE | 2022-10-09 17:40 | EX.ED.DYSGE1 ---
HPI <MANUELA Hickman - Last Filed: 10/09/22 17:50> History of Present Illness Chief Complaint: Head Injury Narrative Narrative: 62-year-old female fell a week ago with head injury. She states she was sitting down on the toilet and did not realize she had missed it and fell backwards striking her head on the porcelain tank. No LOC. Since then she has had headaches, feels woozy. She has chronic nausea which is unchanged. No vomiting. No vision changes or focal motor or sensory changes. No blood thinners. She has been taking Excedrin for the headaches. PFSH <MANUELA Hickman - Last Filed: 10/09/22 17:50> [facility] Medical History ADHD (attention deficit hyperactivity disorder) Anemia Anxiety and depression B12 deficiency Chest pain Chronic pain h/o blood transfusions h/o iron transfusions Health care maintenance Hypertension Insomnia Obesity (BMI 30-39.9) Tenonitis TMJ (temporomandibular joint syndrome) Home Medications temazepam 30 mg capsule 30 mg PO QHS 03/16/16 [History Last Taken 03/15/16] rollator walker with seat #1 ea 10/09/20 [Rx Last Taken Unknown] medical marijauna PO 10/16/20 [History Last Taken Unknown] cyclobenzaprine 10 mg tablet 20 mg PO TID 10/24/20 [History Last Taken Unknown] cyanocobalamin (vitamin B-12) 1,000 mcg/mL injection solution 1,000 mcg IM Q30D #1 mL 12/20/20 [Rx Last Taken Unknown] diclofenac sodium 1 % topical gel 4 g topical .QID #100 grams 03/03/21 [Rx Last Taken Unknown] omeprazole 40 mg capsule,delayed release 40 mg PO DAILY #90 caps 03/03/21 [Rx Last Taken Unknown] triamterene 37.5 mg-hydrochlorothiazide 25 mg capsule 1 cap PO DAILY #90 caps 03/03/21 [Rx Last Taken Unknown] syringe with needle 1 mL 25 gauge x 1 #100 ea 03/05/21 [History Last Taken Unknown] albuterol sulfate 90 mcg/actuation aerosol inhaler 2 puff inhalation Q4H PRN PRN SOB, wheezing #8.5 grams 04/16/21 [Rx Last Taken Unknown] plecanatide 3 mg tablet (Trulance) 3 mg DAILY 06/21/21 [History Last Taken Unknown] bupropion HCl 300 mg 24 hr tablet, extended release 300 mg PO QAM #60 tabs 08/29/21 [Rx Last Taken Unknown] valacyclovir 500 mg tablet (Valtrex) 500 mg PO DAILY Herpes Flare #90 tabs 10/28/21 [Rx Last Taken Unknown] ergocalciferol (vitamin D2) 1,250 mcg (50,000 unit) capsule 50,000 unit PO Q2W 11/26/21 [History Last Taken Unknown] Allergy/AdvReac Type Severity Reaction Status Date / Time bup[facility]ine [[facility]] Allergy Rash Verified 10/09/22 17:24 NSAIDS (Non-Steroidal AdvReac Nausea Verified 10/09/22 17:24 Anti-Inflamma Family History Father Myocardial infarction Alcohol abuse Mother CVA (cerebral vascular accident) Hypertension Thrombosis Alcohol abuse Sister Lupus Surgical History H/O gastric bypass Hx of bariatric surgery S/P Social History household members: other details: grandson housing: house current occupational status: retired and disabled history of recent travel: No Smoking Status: Unknown if ever smoked alcohol intake: never substance use type: does not use what type of physical activity do you participate in: none and walking seatbelt use: always do you feel safe at home: Yes additional social history: single ROS <MANUELA Hickman - Last Filed: 10/09/22 17:50> ROS ED ROS Narrative Constitutional: Negative for fever, chills, malaise. Eyes: Negative for visual change. CVS: Negative for palpitations, chest pain, syncope. Respiratory: Negative for shortness of breath. GI: Positive for nausea. No vomiting. Neuro: Positive for headache, negative for motor/sensory dysfunction. Skin: Negative for rash, abscess, or wound. Musc: Negative for joint pain, swelling, trauma. Heme: Negative for easy bruising, bleeding, lymphadenopathy. EXAM <MANUELA Hickman - Last Filed: 10/09/22 17:50> Physical Exam Narrative Exam Narrative: CONST: Patient sitting in no acute distress. EYES: Normal inspection. ENT: Head normocephalic atraumatic, no raccoon eyes or barrera sign, no hemotympanum, no nasal septal hematoma, no CSF otorrhea or rhinorrhea. NECK: Normal inspection. No midline spinal tenderness, no step off or crepitus. Bilateral cervical paraspinal tenderness. RESP: No respiratory distress, CTAB. CVS: Regular rate and rhythm, no murmur, no gallop. ABD: Soft and nontender, no guarding or rebound, nondistended, no hepatosplenomegaly. SKIN: Color normal, no rash, warm, dry, intact. EXTREMITIES: Normal appearance, no pedal edema. NEURO: Oriented x4. 5/5 upper and lower extremity strength, normal finger-nose bilaterally, normal gait. PSYCH: Normal affect. Const Vital Signs: 10/09/22 17:22 10/09/22 17:33 Temperature 98.6 F Temperature Source Temporal Pulse Rate 110 H Respiratory Rate 18 Respiratory Effort Normal Non-Labored Blood Pressure 110/79 Blood Pressure Mean 89 Pulse Ox 99 Oxygen Delivery Method Room Air Room Air <Dr. Anthony Rutledge MD - Last Filed: 10/09/22 17:57> Physical Exam Const Vital Signs: 10/09/22 17:22 10/09/22 17:33 Temperature 98.6 F Temperature Source Temporal Pulse Rate 110 H Respiratory Rate 18 Respiratory Effort Normal Non-Labored Blood Pressure 110/79 Blood Pressure Mean 89 Pulse Ox 99 Oxygen Delivery Method Room Air Room Air MDM <MANUELA Hickman - Last Filed: 10/09/22 17:50> [facility] Narrative Medical decision making narrative: Patient had a mechanical fall with closed head injury without LOC a week ago. She is having headaches and dizziness. She appears well and nontoxic. Heart rate is 110 with otherwise normal vital signs. She has no signs of head trauma. She is indicating she had swelling in the back of her skull but only feels her normal occipital notch. No signs of hematoma or basilar skull fracture. No midline spinal tenderness. She is neurologically intact. With injury occurring a week ago, no blood thinners, no external signs of trauma I do not think she needs a CT scan. She was advised to take [id number] pain relievers and follow-up with her doctor next week. She was given return precautions and discharged in stable condition. Differential: Concussion, intracranial bleed, skull fracture Test considered but not ordered: Cording to [place] CT head rule no indication for head imaging. Prescriptions considered but I think she can take [id number]-[id number] Tylenol or Motrin. <Dr. Anthony Rutledge MD - Last Filed: 10/09/22 17:57> [facility] Narrative Medical decision making narrative: Patient had a mechanical fall with closed head injury without LOC a week ago. She is having headaches and dizziness. She appears well and nontoxic. Heart rate is 110 with otherwise normal vital signs. She has no signs of head trauma. She is indicating she had swelling in the back of her skull but only feels her normal occipital notch. No signs of hematoma or basilar skull fracture. No midline spinal tenderness. She is neurologically intact. With injury occurring a week ago, no blood thinners, no external signs of trauma I do not think she needs a CT scan. She was advised to take yrke-nux-hnnzukp pain relievers and follow-up with her doctor next week. She was given return precautions and discharged in stable condition. Differential: Concussion, intracranial bleed, skull fracture Test considered but not ordered: Cording to [place] CT head rule no indication for head imaging. Prescriptions considered but I think she can take [id number]-fyr-[id number] Tylenol or Motrin. I have personally performed a face to face assessment of the patient and have reviewed the HEATHER Note. I performed a substantive portion of the visit including all aspects of the following. My bates findings include: History is remarkable for fall 1 week ago. She missed the commode. Hit the back of her head. She feels a lump. She denied loss of conscious. She not amnestic. She denies paresthesia, anesthesia medics presently the time of the injury. Denies neck pain. She is not on an antithrombotic or anticoagulant. Exam is remarkable for area of concern being the occipital bone on the left side. There is no palpable oppression. There is no clinical signs of basilar skull fracture. GCS is 15 with a nonfocal neurologic exam Medical Decision Making per the [place] CT head rule and [place] rule imaging is not required. Per [employer] criteria imaging of the neck is not required. Other additions or changes: [None] Discharge Plan Triage Chief Complaint: Head Injury ED Midlevel Provider: Lisa Betancourt ED Provider: Anthony Rutledge Dx/Rx/DC Orders Clinical Impression: Acute head injury without loss of consciousness, Concussion Instructions: Concussion Dc Prescriptions: No Action medical marijauna PO (DME) syringe with needle 1 mL 25 gauge x 1 syringe See Rx Instructions .ROUTE .MEDSUPPLY Qty: 100 Rx Instructions: As directed ergocalciferol (vitamin D2) 1,250 mcg (50,000 unit) capsule 50,000 unit PO Q2W temazepam 30 MG capsule 30 mg PO QHS Label Comments: SLEEP cyclobenzaprine 10 mg tablet 20 mg PO TID Label Comments: leg spasm Trulance 3 mg tablet 3 mg DAILY (DME) rollator walker with seat See Rx Instructions .Route .MEDSUPPLY Qty: 1 0RF Rx Instructions: As directed cyanocobalamin (vitamin B-12) 1,000 mcg/mL solution 1,000 mcg IM Q30D Qty: 1 2RF diclofenac sodium 1 % gel 4 g TOPICAL .QID Qty: 100 1RF Rx Instructions: apply to single knee, ankle, foot; for foot includes sole/toes/top of foot triamterene-hydrochlorothiazid 37.5-25 mg capsule 1 cap PO DAILY Qty: 90 1RF omeprazole 40 mg capsule,delayed release(DR/EC) 40 mg PO DAILY Qty: 90 1RF albuterol sulfate 90 mcg/actuation HFA aerosol inhaler 2 puff INHALATION Q4H PRN PRN (Reason: SOB, wheezing) Qty: 8.5 1RF Label Comments: BREATHING bupropion HCl 300 mg tablet extended release 24 hr 300 mg PO QAM Qty: 60 2RF valacyclovir [Valtrex] 500 mg tablet 500 mg PO DAILY Qty: 90 1RF Primary Care Provider: Care Physician,No Primary Referrals: Care Physician,No Primary [Primary Care Provider] - Activity Restrictions/Additional Instructions: Take Tylenol 1000 mg every 6 hours as needed and follow-up with your doctor next week if symptoms are persistent. Disposition Disposition: Home, Self Care
== END 2022-10-09 18:03 | disposition home or self-care (01) ==
LOC: ED 17:56
PROVIDERS: Emergency Provider Emergency Medicine; Visit Provider Emergency Medicine
DX: S06.0X0A Concussion without loss of consciousness, initial encounter (principal); I10 Essential (primary) hypertension; W18.12XA Fall from or off toilet with subsequent striking against object, initial encounter; Z79.899 Other long term (current) drug therapy
CPT/HCPCS: 99282

== ENCOUNTER 2022-10-22 10:06 | Emergency (ER) | payer OTHER, MEDICAID, SELFPAY ==
[2022-10-22 10:07] VITALS: BP 129/82; PULSE 110; RESP 18; TEMP 36.6; O2SAT 99
--- NOTE | 2022-10-22 10:36 | EKG12_ITS ---
Test Reason : ABD PAIN Blood Pressure : / mmHG Vent. Rate : 090 BPM Atrial Rate : 090 BPM P-R Int : 148 ms QRS Dur : 064 ms QT Int : 370 ms P-R-T Axes : 057 000 067 degrees QTc Int : 452 ms Normal sinus rhythm Normal ECG Confirmed by DORIS WOO, FADUMO ([id number]), news videotape editor ANAT GONZALEZ ([id number]) on 10/23/2022 10:50:20 AM Referred By: Confirmed By:FADUMO GEORGE MD
--- NOTE | 2022-10-22 10:36 | CT_ITS ---
STUDY: CT ABDOMEN AND PELVIS WITH CONTRAST REASON FOR EXAM: Female, 62 years old. Several week history of weakness and shortness of breath. History of gastric bypass surgery. RADIATION DOSAGE (If Supplied By Facility): CTDIvol = ( 22.63 ) mGy, DLP = ( 731.44 ) mGycm TECHNIQUE: Transaxial images were obtained from the dome of the diaphragm to the symphysis pubis without oral contrast. IV 100mL Isovue-370 was administered. Sagittal and coronal images were reconstructed. Individualized dose optimization techniques were used for this CT. COMPARISON: None. FINDINGS: The visualized lung bases are unremarkable. Coronary artery calcification. There is decreased attenuation of the liver consistent with steatosis. There is a faint 1 cm hypodense nodule with peripheral enhancement in the posterior aspect of the right lobe of the liver in the region of the dome suggestive of possible small hemangioma. Normal gallbladder and extrahepatic biliary system. Normal spleen. Pancreatic atrophy. Normal bilateral adrenal glands. Normal right kidney. Normal left kidney. The patient is status post subtotal gastrectomy for gastric bypass surgery. Small hiatal hernia. Normal small intestine. Large amount of fecal material is seen in the colon. The appendix is visualized and appears normal. There is diffuse atherosclerotic calcification of the abdominal aorta, without a demonstrated aneurysm. Normal inferior vena cava. Normal retroperitoneum. Normal urinary bladder. Normal abdominal wall. Exaggerated lumbar lordosis. Minimal anterior listhesis of L4 on L5 and L5 on S1 secondary to spondylolysis of the pars interarticularis of the L5 vertebra. CT/Abdomen/Pelvis W IV Cont ONLY IMPRESSION: Diffuse fatty infiltration of the liver. Findings suggestive of a 1 cm hemangioma in the posterior dome of the right lobe of the liver. Electronically Signed: Javad Del Cid MD at 13:01 EDT ,
--- NOTE | 2022-10-22 10:37 | ED.VIS.GI ---
HPI HPI - GI History of Present Illness Chief Complaint: Abd Pain Narrative Narrative: 62-year-old female presenting with multiple complaints. The first of which is abdominal burning which she describes as diffuse. She is concerned that she has a history of peptic ulcer disease and GI bleed. She states he seen Dr. Yung in the past but cannot see him until November. She admits to some nausea as well. She states she does not think she had a bowel movement in about a week. She denies seeing any black or bloody stools. She does states she has a history of anemia for which she sees Dr. Tilley. She takes iron for this as well. She is concerned that she might be having a bleeding ulcer this is why she feels lightheaded, weak, nauseous. She admits to some shortness of breath with any exertion. She feels lightheaded when she stands. She had a couple of falls at home this week. [facility] Medical History ADHD (attention deficit hyperactivity disorder) Anemia Anxiety and depression B12 deficiency Chest pain Chronic pain h/o blood transfusions h/o iron transfusions Health care maintenance Hypertension Insomnia Obesity (BMI 30-39.9) Tenonitis TMJ (temporomandibular joint syndrome) Home Medications temazepam 30 mg capsule 30 mg PO QHS 03/16/16 [History Last Taken 03/15/16] rollator walker with seat #1 ea 10/09/20 [Rx Last Taken Unknown] medical marijauna PO 10/16/20 [History Last Taken Unknown] cyclobenzaprine 10 mg tablet 20 mg PO TID 10/24/20 [History Last Taken Unknown] cyanocobalamin (vitamin B-12) 1,000 mcg/mL injection solution 1,000 mcg IM Q30D #1 mL 12/20/20 [Rx Last Taken Unknown] diclofenac sodium 1 % topical gel 4 g topical .QID #100 grams 03/03/21 [Rx Last Taken Unknown] omeprazole 40 mg capsule,delayed release 40 mg PO DAILY #90 caps 03/03/21 [Rx Last Taken Unknown] triamterene 37.5 mg-hydrochlorothiazide 25 mg capsule 1 cap PO DAILY #90 caps 03/03/21 [Rx Last Taken Unknown] syringe with needle 1 mL 25 gauge x 1 #100 ea 03/05/21 [History Last Taken Unknown] albuterol sulfate 90 mcg/actuation aerosol inhaler 2 puff inhalation Q4H PRN PRN SOB, wheezing #8.5 grams 04/16/21 [Rx Last Taken Unknown] plecanatide 3 mg tablet (Trulance) 3 mg DAILY 06/21/21 [History Last Taken Unknown] bupropion HCl 300 mg 24 hr tablet, extended release 300 mg PO QAM #60 tabs 08/29/21 [Rx Last Taken Unknown] valacyclovir 500 mg tablet (Valtrex) 500 mg PO DAILY Herpes Flare #90 tabs 10/28/21 [Rx Last Taken Unknown] ergocalciferol (vitamin D2) 1,250 mcg (50,000 unit) capsule 50,000 unit PO Q2W 11/26/21 [History Last Taken Unknown] Allergy/AdvReac Type Severity Reaction Status Date / Time buprenorphine [From [facility]] Allergy Rash Verified 10/22/22 10:10 NSAIDS (Non-Steroidal AdvReac Nausea Verified 10/22/22 10:10 Anti-Inflamma Family History Father Myocardial infarction Alcohol abuse Mother CVA (cerebral vascular accident) Hypertension Thrombosis Alcohol abuse Sister Lupus Surgical History H/O gastric bypass Hx of bariatric surgery S/P Social History household members: other details: grandson housing: house current occupational status: retired and disabled history of recent travel: No Smoking Status: Unknown if ever smoked alcohol intake: never substance use type: does not use what type of physical activity do you participate in: none and walking seatbelt use: always do you feel safe at home: Yes additional social history: single ROS ROS ED Constitutional Constitutional ED: Denies chills or fever(s) ENT ENT ED: Denies rhinorrhea or sore throat Cardiovascular Cardiovascular: Reports other Details: Lightheadedness ; Denies chest pain Respiratory/Chest Respiratory/Chest: Reports dyspnea and dyspnea on exertion Gastrointestinal Gastrointestinal: Reports abdominal pain, constipation and nausea Genitourinary Genitourinary ED: Denies dysuria or hematuria Musculoskeletal Musculoskeletal: Denies arthralgias or myalgias Integumentary Denies abscess or Abrasions Neurologic Neurologic: Denies headache(s) Psychiatric Psychiatric: Denies anxiety or depression EXAM Physical Exam Const Vital Signs: 10/22/22 10:07 10/22/22 13:13 10/22/22 13:13 Temperature 97.9 F Temperature Source Temporal Pulse Rate 110 H 88 Pulse Rate [Lying] 88 Pulse Rate [Sitting (for 1 minute prior to obtaining)] 93 Pulse Rate [Standing (for 1 minute prior to obtaining)] 143 H Respiratory Rate 18 16 Blood Pressure 129/82 H 126/84 H Blood Pressure [Lying] 126/84 H Blood Pressure [Sitting (for 1 minute prior to obtaining)] 131/86 H Blood Pressure [Standing (for 1 minute prior to obtaining)] 118/106 H Blood Pressure Mean 97 98 Blood Pressure Mean [Lying] 98 Blood Pressure Mean [Sitting (for 1 minute prior to obtaining)] 101 Blood Pressure Mean [Standing (for 1 minute prior to obtaining)] 110 Pulse Ox 99 100 Oxygen Delivery Method Room Air Room Air Positive well nourished General Appearance ED: NAD HEENT Reports moist mucous membranes normocephalic and atraumatic Eyes PERRL and EOMs intact bilaterally Resp normal respiratory effort and clear to auscultation bilaterally Auscultation: Negative for rales, rhonchi or wheezes Cardio regular rate Rate: tachycardic GI GI Narrative: Diffuse generalized tenderness. Abdomen is soft. Palpation: Negative for tender, guarding or rigid Back/Spine no CVA tenderness Neuro CN's II-XII intact bilaterally and moves all extremities Sensorium / Orientation: alert Motor Exam: strength 5/5 throughout Psych mental status grossly normal and thought process normal Skin no wounds MDM MDM MDM Narrative Medical decision making narrative: Patient presenting with multiple complaints. Lightheadedness is one of her complaints. Differential for this would be dehydration, GI bleed, electrolyte abnormalities. She does not have any vertiginous dizziness. Patient also complaining of diffuse abdominal pain. This could be peptic ulcer disease, gastritis, colitis, diverticulitis, small bowel obstruction given her surgical history. She has not a bowel movement in a week. Patient also complaining of shortness of breath which could be due to anemia we will obtain a chest x-ray to rule out pneumonia. EKG to assess for dysrhythmia, and high-sensitivity troponin. Will obtain orthostatic vital signs as well. CBC has a normal white blood cell count of 4.8. Hemoglobin hematocrit are stable. Platelets are normal. Renal function electrolytes within normal limits. LFTs are unremarkable. EKG on my interpretation is sinus rhythm with a ventricular rate of 90 bpm without sign of ischemic change or dysrhythmia. Chest x-ray on my interpretation shows no acute cardiopulmonary process. The radiologist services and agrees. High-sensitivity troponin 27. Patient requested something for pain so she was given morphine and Zofran. Orthostatic vital signs were obtained and the blood pressures are normal however her heart rate speeds up so she also given a liter of IV fluids. Urinalysis obtained and shows no evidence of infection. CT of the abdomen pelvis shows constipation and a centimeter hemangioma on the liver. At this point the patient I think is stable to be discharged home. I will put her on MiraLAX for home. Return precautions are discussed. Impression: 1. Dyspnea 2. Abdominal pain 3. Constipation 4. Lightheadedness 5. Hemangioma Lab Data Labs: Laboratory Results - last 24 hr 10/22/22 10/22/22 10/22/22 11:50 11:50 13:25 WBC 4.8 RBC 4.84 Hgb 12.2 Hct 37.7 MCV 77.9 L MCH 25.2 L MCHC 32.4 RDW Std Deviation 47.2 H RDW Coeff of Adelia 17.1 H Plt Count 276 MPV 9.1 Immature Gran % (Auto) 0.200 Neut % (Auto) 45.8 L Lymph % (Auto) 43.4 H [place] % (Auto) 7.5 Eos % (Auto) 2.5 Baso % (Auto) 0.6 Absolute Neuts (auto) 2.2 Absolute Lymphs (auto) 2.07 Nucleated RBC % 0 Sodium 139 Potassium 3.8 Chloride 109 H Carbon Dioxide 22.0 Anion Gap 8 BUN 15 Creatinine 0.99 Estim Creat Clear Calc 55.16 Est GFR (MDRD) Af Amer 73 Est GFR (MDRD) Non-Af 61 BUN/Creatinine Ratio 15.2 Glucose 106 Calcium 9.3 Total Bilirubin 0.30 AST 16 ALT 15 Alkaline Phosphatase 95 Troponin I High Sens 27 Total Protein 7.0 Albumin 3.6 Globulin 3.4 Albumin/Globulin Ratio 1.1 Lipase 182 Urine Color YELLOW Urine Clarity Clear Urine pH 7.0 Ur Specific [place] 1.015 Urine Protein 30 H Urine Glucose (UA) Normal Urine Ketones Negative Urine Occult Blood 150 H Urine Nitrite Negative Urine Bilirubin Negative Urine Urobilinogen Normal Ur Leukocyte Esterase 500 H Urine RBC 0 SEEN Urine WBC 0-5 SEEN Ur Squamous Epith Cells 0-5 SEEN Urine Bacteria 0 SEEN Urine Mucus 0 SEEN Radiography Diagnostic Testing: Clinical Impression(s) from Imaging Studies Abdomen/Pelvis CT 10/22/22 10:36 IMPRESSION: Diffuse fatty infiltration of the liver. Findings suggestive of a 1 cm hemangioma in the posterior dome of the right lobe of the liver. Electronically Signed: Javad Del Cid MD at 13:01 EDT , Chest X-Ray 10/22/22 10:50 IMPRESSION: Elevation of the right hemidiaphragm. The lungs are clear. Electronically Signed: Javad Del Cid MD at 11:05 EDT , Discharge Plan Triage Chief Complaint: Abd Pain Other Complaint: Weakness ED Provider: Blaise Tom Dx/Rx/DC Orders Prescriptions: No Action medical marijauna PO (DME) syringe with needle 1 mL 25 gauge x 1 syringe See Rx Instructions .ROUTE .MEDSUPPLY Qty: 100 Rx Instructions: As directed ergocalciferol (vitamin D2) 1,250 mcg (50,000 unit) capsule 50,000 unit PO Q2W temazepam 30 MG capsule 30 mg PO QHS Label Comments: SLEEP cyclobenzaprine 10 mg tablet 20 mg PO TID Label Comments: leg spasm Trulance 3 mg tablet 3 mg DAILY (DME) rollator walker with seat See Rx Instructions .Route .MEDSUPPLY Qty: 1 0RF Rx Instructions: As directed cyanocobalamin (vitamin B-12) 1,000 mcg/mL solution 1,000 mcg IM Q30D Qty: 1 2RF diclofenac sodium 1 % gel 4 g TOPICAL .QID Qty: 100 1RF Rx Instructions: apply to single knee, ankle, foot; for foot includes sole/toes/top of foot triamterene-hydrochlorothiazid 37.5-25 mg capsule 1 cap PO DAILY Qty: 90 1RF omeprazole 40 mg capsule,delayed release(DR/EC) 40 mg PO DAILY Qty: 90 1RF albuterol sulfate 90 mcg/actuation HFA aerosol inhaler 2 puff INHALATION Q4H PRN PRN (Reason: SOB, wheezing) Qty: 8.5 1RF Label Comments: BREATHING bupropion HCl 300 mg tablet extended release 24 hr 300 mg PO QAM Qty: 60 2RF valacyclovir [Valtrex] 500 mg tablet 500 mg PO DAILY Qty: 90 1RF Primary Care Provider: Care Physician,No Primary Referrals: Care Physician,No Primary [Primary Care Provider] -
--- NOTE | 2022-10-22 10:50 | RAD_ITS ---
STUDY: X-RAY CHEST REASON FOR EXAM: Female, 62 years old. Cough TECHNIQUE: Single AP portable view of the chest. COMPARISON: Comparison is made with prior study July 07, 2022. FINDINGS: Elevation of the right hemidiaphragm. The lungs are clear. There is no demonstrated pleural abnormality. Normal size heart. Normal mediastinum and lucía. Normal visualized pulmonary arteries. There is atherosclerotic tortuosity of the aortic arch and descending thoracic aorta. Normal visualized thoracic spine. Normal visualized ribs, clavicles, and shoulders. There is no demonstrated abnormality of the visualized soft tissue structures of the upper abdomen. RAD/Chest 1 View (Portable) IMPRESSION: Elevation of the right hemidiaphragm. The lungs are clear. Electronically Signed: Javad Del Cid MD at 11:05 EDT ,
[2022-10-22] MEDS: Famotidine 200 MG/20 ML MDV 20 MG in 0.9% Normal Saline (Pres. free 8 ML 300 MG IV (11:46)
[2022-10-22] MEDS: Ondansetron 4 MG/2 ML Vial IV (11:46)
[2022-10-22] MEDS: Morphine 4 MG/ML Syringe IV (11:48)
[2022-10-22 11:50] VITALS: BMI 27.4
[2022-10-22 12:03] LABS: Absolute Lymphocyte Count 2.07 X10^3/uL (0.83-4.51); Absolute Neutrophil Count 2.2 X10^3/uL (2.0-7.7); Basophil# 0.03 X10^3/uL; Basophil% 0.6 % (0-1); Eosinophil# 0.12 X10^3/uL; Eosinophils% 2.5 % (0-5); Hematocrit 37.7 % (37-47); Hemoglobin 12.2 g/dL (12.0-15.0); Lymphocyte # 2.07 X10^3/ul (0.83-4.51); Lymphocyte % 43.4 % (19-41); Mean Corp Hgb Conc 32.4 g/dL (32-36); Mean Corpuscular Hgb 25.2 pg (27.0-32.0); Mean Corpuscular Volume 77.9 fL (81-99); Mean Platelet Vol. 9.1 fl (6.2-12.0); Monocyte# 0.36 X10^3/uL; Monocyte% 7.5 % (0-10); NRBC Flagged by Analyzer 0 % (0-5); Neutrophil # 2.18 X10^3/uL (2.7-7.7); Neutrophil % 45.8 % (47-70); Platelet Count 276 K/mm3 (150-450); RBC Distribution Width CV 17.1 % (11.6-14.6); RBC Distribution Width SD 47.2 fl (35.1-43.9); Red Blood Count 4.84 M/mm3 (4.2-5.4); White Blood Count 4.8 K/mm3 (4.4-11.0)
[2022-10-22 12:19] LABS: ALB/GLOB Ratio 1.1 RATIO (0.9-2.4); AST(SGOT) 16 U/L (15-37); Alanine Aminotransfer ALT/SGPT 15 U/L (13-56); Albumin, Serum 3.6 g/dL (3.2-5.0); Alkaline Phosphatase 95 U/L (45-117); Anion Gap 8 (5-15); BUN 15 mg/dL (7-18); BUN/Creat Ratio 15.2 RATIO (10-20); Calcium,Total 9.3 mg/dL (8.5-10.1); Chloride 109 mmol/L (98-107); Creatinine, Serum 0.99 mg/dL (0.55-1.02); EST Glomerular Filtration Rate 61 mL/min (>60); Est Glom Filt Rate - Afr Amer 73 mL/min (>60); Estimated Creatinine Clearance 55.16 ml/min; Globulin 3.4 g/dL (2.2-4.2); Glucose 106 mg/dL (74-106); Lipase 182 U/L (73-393); Potassium 3.8 mmol/L (3.5-5.1); Sodium Level 139 mmol/L (136-145); Troponin-I HS 27 pg/mL (3.0-54.0)
[2022-10-22 13:13] VITALS: BP 118/106; BP 126/84; BP 131/86; PULSE 143; PULSE 88; PULSE 93; RESP 16; O2SAT 100
[2022-10-22 13:55] LABS: Color, Urine YELLOW (Yellow); Glucose, Dipstick Normal (Normal); Ketone-Dipstick Negative (Negative); Leukocyte Esterase-Dipstick 500 /ul (Negative); Nitrite-Dipstick Negative (Negative); Occult Blood-Urine 150 /ul (Negative); Protein-Dipstick 30 mg/dl (Negative); Specific Gravity, Urine 1.015 (1.002-1.030); Urine Bilirubin Dipstick Negative (Negative); Urine Clarity Clear (Clear); Urine Urobilinogen Normal (Normal)
[2022-10-22 14:23] LABS: Bacteria 0 SEEN /hpf (None Seen); Mucous, Urine 0 SEEN /hpf (<or=2+); Red Blood Cells-Urine 0 SEEN /hpf (0-5)
[2022-10-22 14:24] LABS: Squamous Epithelial Cells - UA 0-5 SEEN /hpf (5-10)
[2022-10-22 14:26] LABS: White Blood Cells 0-5 SEEN /hpf (0-5)
== END 2022-10-22 15:12 | disposition home or self-care (01) ==
PROVIDERS: Emergency Provider Student in an Organized Health Care Education/Training Program; Visit Provider Student in an Organized Health Care Education/Training Program
DX: R53.1 Weakness (principal); R10.9 Unspecified abdominal pain; D18.00 Hemangioma unspecified site; R42 Dizziness and giddiness; R06.00 Dyspnea, unspecified; I10 Essential (primary) hypertension; K59.00 Constipation, unspecified; Z87.19 Personal history of other diseases of the digestive system
CPT/HCPCS: 71045; 74177; 80053; 81001; 83690; 84484; 85025; 93005; 96374; 96375; 99283; J7030; Q9967; A4216; J2405; J3490

== ENCOUNTER 2023-02-13 19:18 | Observation (INO) | payer MEDICARE, MEDICAID, SELFPAY ==
[2023-02-13 19:21] VITALS: BP 133/79; PULSE 69; RESP 22; TEMP 36; O2SAT 99; BMI 27.6
--- NOTE | 2023-02-13 19:38 | CT_ITS ---
STUDY: CT BRAIN WITHOUT CONTRAST REASON FOR EXAM: Female, 63 years old. syncope while on toilet, fell to ground, relative found on ground RADIATION DOSAGE (If Supplied By Facility): CTDIvol = ( 44.99 ) mGy, DLP = ( 779.24 ) mGycm TECHNIQUE: Transaxial CT imaging of the brain was performed without administration of intravenous contrast material. Individualized dose optimization techniques were used for this CT. COMPARISON: No relevant priors. FINDINGS: Normal soft tissue structures. Normal calvarium. Normal size ventricles and extra-axial spaces for the patient''s age. Normal white matter tracts of the cerebral hemispheres. Normal basal ganglia and thalami. Normal brainstem. Normal cerebellum. There is no intracranial hemorrhage. There are no findings of an acute ischemic infarction. Normal visualized paranasal sinuses. CT/Brain/Head without Contrast IMPRESSION: No acute intracranial hemorrhage or mass effect. Electronically Signed: Rakesh Hickey (Brooks), at 20:57 EDT ,
--- NOTE | 2023-02-13 19:38 | EX.ED.DYSGE1 ---
HPI History of Present Illness Chief Complaint: Syncope Informant: patient and family Onset/Context/Timing Onset: Today Context: Sudden Onset Timing: Continuous Current Severity: Moderate Maximum Severity: Moderate Narrative Narrative: 63-year-old female history of prior bariatric surgery. Reportedly was watching television with her grandson. Got up to walk to the restroom. Prior to getting to the restroom she had a syncopal episode. He did not witness the event but he heard her fall and go down he got up and she was awake. Prior to the episode of either syncope or near syncope she had no complaints. Has had no recent illness or recent hospitalization. She has had a syncopal event before according to the grandson. He states only he and his grandmother live at home. There is no other adults. Prior similar symptoms: Yes Recent Illness/Hospitalization: No [facility] Medical History (Updated 02/13/23 @ 20:[address] Jeniffer Campos MD) ADHD (attention deficit hyperactivity disorder) Anemia Anxiety and depression B12 deficiency Chronic pain h/o blood transfusions h/o iron transfusions Hypertension Insomnia Tenonitis TMJ (temporomandibular joint syndrome) Home Medications temazepam 30 mg capsule 30 mg PO QHS 03/16/16 [History Last Taken 03/15/16] rollator walker with seat #1 ea 10/09/20 [Rx Last Taken Unknown] medical marijauna PO 10/16/20 [History Last Taken Unknown] cyclobenzaprine 10 mg tablet 20 mg PO TID 10/24/20 [History Last Taken Unknown] cyanocobalamin (vitamin B-12) 1,000 mcg/mL injection solution 1,000 mcg IM Q30D #1 mL 12/20/20 [Rx Last Taken Unknown] diclofenac sodium 1 % topical gel 4 g topical .QID #100 grams 03/03/21 [Rx Last Taken Unknown] omeprazole 40 mg capsule,delayed release 40 mg PO DAILY #90 caps 03/03/21 [Rx Last Taken Unknown] triamterene 37.5 mg-hydrochlorothiazide 25 mg capsule 1 cap PO DAILY #90 caps 03/03/21 [Rx Last Taken Unknown] syringe with needle 1 mL 25 gauge x 1 #100 ea 03/05/21 [History Last Taken Unknown] albuterol sulfate 90 mcg/actuation aerosol inhaler 2 puff inhalation Q4H PRN PRN SOB, wheezing #8.5 grams 04/16/21 [Rx Last Taken Unknown] plecanatide 3 mg tablet (Trulance) 3 mg DAILY 06/21/21 [History Last Taken Unknown] bupropion HCl 300 mg 24 hr tablet, extended release 300 mg PO QAM #60 tabs 08/29/21 [Rx Last Taken Unknown] valacyclovir 500 mg tablet (Valtrex) 500 mg PO DAILY Herpes Flare #90 tabs 10/28/21 [Rx Last Taken Unknown] ergocalciferol (vitamin D2) 1,250 mcg (50,000 unit) capsule 50,000 unit PO Q2W 11/26/21 [History Last Taken Unknown] Allergy/AdvReac Type Severity Reaction Status Date / Time buprenorphine [From [facility]] Allergy Rash Verified 10/22/22 10:10 NSAIDS (Non-Steroidal AdvReac Nausea Verified 10/22/22 10:10 Anti-Inflamma Family History Father Myocardial infarction Alcohol abuse Mother CVA (cerebral vascular accident) Hypertension Thrombosis Alcohol abuse Sister Lupus Surgical History H/O gastric bypass Hx of bariatric surgery S/P Social History household members: other details: grandson housing: house current occupational status: retired and disabled history of recent travel: No Smoking Status: Current every day smoker tobacco type: cigarettes alcohol intake: never substance use type: does not use what type of physical activity do you participate in: none and walking seatbelt use: always do you feel safe at home: Yes additional social history: single ROS ROS ED ROS Narrative Denies recent illness. No headache or chest pain. No vomiting or diarrhea. No melena. No fever. Review of Systems ROS Unobtainable: Denies due to encephalopathy Constitutional Constitutional ED: Denies chills or fever(s) Eyes Eyes: Denies blurry vision ENT ENT ED: Denies ear pain Cardiovascular Cardiovascular: Denies chest pain Respiratory/Chest Respiratory/Chest: Denies cough or dyspnea Gastrointestinal Gastrointestinal: Denies abdominal pain, diarrhea, melena, nausea or vomiting Genitourinary Genitourinary ED: Denies dysuria Musculoskeletal Musculoskeletal: Denies arthralgias Integumentary Denies abscess Neurologic Neurologic: Denies headache(s) Psychiatric Psychiatric: Denies anxiety Endocrine Endocrinology: Denies cold intolerance Hematologic/Lymphatic Hematologic/Lymphatic: Reports none Allergic/Immunologic Allergic/Immunologic ED: Denies mouth swelling or tongue swelling EXAM Physical Exam Narrative Exam Narrative: 63-year-old female no acute distress. Awake. Alert. HEENT exam contusion right forehead. There is round reactive light. There is a hematoma. No scalp tenderness. C-spine and trachea nontender. Midline. Lungs clear. Heart regular rhythm rate about 70 no murmur. Chest wall and ribs nontender. Abdomen soft nontender. Normal bowel sounds no peritoneal signs. Pelvic girdle intact. Moving all 4 extremities. Normal student development advisor strength. Normal dorsi plantarflexion. Neurologically. She is awake and alert. She knows she is in the hospital. She knows it is January. She knows the year. She is answering questions and following commands. Const Vital Signs: 02/13/23 19:21 02/13/23 19:26 Temperature 96.8 F L Temperature Source Temporal Pulse Rate 69 Respiratory Rate 22 H Respiratory Pattern Normal Blood Pressure 133/79 H Blood Pressure Mean 97 Pulse Ox 99 Oxygen Delivery Method Room Air Positive well nourished and well developed; Negative for cachectic, contractures or unkempt General Appearance ED: well developed and NAD; Negative for unkempt, cachectic, contractures, cyanotic, diaphoretic or pallor Nutritional Appearance: Negative for cachectic HEENT Reports moist mucous membranes; Denies dry mucous membranes HEENT Narrative: Right forehead contusion. trauma; Negative for tenderness Mouth ED: No dry mucous membranes Mouth: No dry mucous membranes Eyes PERRL and EOMs intact bilaterally General Eye ED: Negative for pale conjunctiva Neck no lymphadenopathy, supple and no JVD General: Negative for tenderness Lymph Lymphatic: Negative for other Chest Wall inspection of chest normal and palpation of chest normal Chest: Negative for other Resp normal respiratory effort and clear to auscultation bilaterally Effort and Inspection: Negative for retractions Auscultation: Negative for rales, rhonchi or wheezes Cardio regular rate, regular rhythm, S1 normal heart sound, S2 normal heart sound and no murmurs GI normal to inspection, nondistended, normoactive bowel sounds, non-tender, non-distended and no masses Inspection: Negative for abdominal distention Auscultation: normoactive bowel sounds Palpation: soft; Negative for tender, guarding, mass or rebound tenderness present Bladder / Kidney Exam: No other Back/Spine no CVA tenderness General Back: Negative for CVA tenderness Cervical Spine: Negative for cervical spine tenderness Thoracic Spine / Upper Back: Negative for thoracic spinal tenderness Lumbar Spine / Lower Back: Negative for lumbar spinal tenderness Extremity normal to inspection General Extremety ED: Negative for edema or tenderness General Extremity: Negative for edema Neuro oriented x3 and CN's II-XII intact bilaterally Sensorium / Orientation: alert and orientation impaired; Negative for lethargic or stuporous Motor Exam: strength 5/5 throughout Psych mental status grossly normal Appearance: Negative for unkempt or other Attitude: No agitated Mood & Affect: Negative for depressed, anxious or tearful Skin no rashes or lesions noted, no wounds and skin turgor normal General Skin Exam: elasticity normal; Negative for jaundice or pallor Lesions: No lesion noted Rashes: No rashes noted Trauma: Negative for abrasion Wounds: Negative for wounds noted MDM MDM MDM Narrative Medical decision making narrative: 63-year-old female had a syncopal episode walking to the bathroom. Currently she is awake and alert. She did have a head injury when she fell. She undergo cardiac work-up. CT of her brain. Repeat exam patient is doing well at 8:49 PM. I have already spoken to the hospitalist for a overnight observation admission. History & Record Review Discussion w/independent historian: Patient and Family Additional record(s) reviewed:: Prior inpatient record, Prior outpatient record, Prior ED visit and Prior labs Lab Data Attestation: I reviewed the patient's lab results. Lab results narrative: CBC shows white count of 4.2. H&H 12.2 and 38. Platelets 237. Chest x-ray unremarkable. Chemistries shows a potassium of 6.5 gap of 7. BUN of 12 creatinine of 1. Glucose 99. I spoke to the lab. The patient has normal renal function. We will recheck the potassium it may be erroneous due to hemolysis. Troponin is normal at 26. CAT scan of the brain shows no acute abnormality. Awaiting formal radiologist interpretation. Labs: Laboratory Results - last 24 hr 02/13/23 19:30 WBC 4.2 L RBC 5.13 Hgb 12.2 Hct 38.9 MCV 75.8 L MCH 23.8 L MCHC 31.4 L RDW Std Deviation 47.8 H RDW Coeff of Adelia 18.0 H Plt Count 237 MPV 9.8 Immature Gran % (Auto) 0.500 Neut % (Auto) 39.8 L Lymph % (Auto) 46.3 H [place] % (Auto) 10.8 H Eos % (Auto) 1.9 Baso % (Auto) 0.7 Absolute Neuts (auto) 1.7 L Absolute Lymphs (auto) 1.92 Nucleated RBC % 0 Sodium 136 Potassium 6.5 H* Chloride 106 Carbon Dioxide 23.0 Anion Gap 7 BUN 12 Creatinine 1.06 H Estim Creat Clear Calc 50.85 Est GFR (MDRD) Af Amer 67 Est GFR (MDRD) Non-Af 56 L BUN/Creatinine Ratio 11.3 Glucose 99 Calcium 9.3 Troponin I High Sens 26 Radiography Chest X-Ray - ED: 1 View, Read by ED Physician, Heart, Lungs, Mediastinum, Bony Structures, No Acute Disease and Chronic Changes Diagnostic Testing: Clinical Impression(s) from Imaging Studies Chest X-Ray 02/13/23 19:55 IMPRESSION: Stable, nonacute portable x-ray examination of the chest. Electronically Signed: Rakesh Xiao (Brooks)an, at 20:32 EDT , Chest x-ray, portable, single view showed no acute abnormality. Normal cardiac silhouette. Normal mediastinum. Normal lung ferrer. Rhythm Strip Rhythm Strip: Sinus Rhythm Rate: 78 Ectopy: None EKG Initial EKG: Attestation: I personally reviewed and interpreted this EKG as follows: Interpretation: No Acute Injury Pattern Comments: Normal sinus rhythm rate of 78. No acute signs of OH nor ischemia nor dysrhythmia. Unremarkable EKG. Discharge Plan Dx/Rx/DC Orders Clinical Impression: Closed head injury, Syncope, Fall Disposition Disposition: [facility]
--- NOTE | 2023-02-13 19:55 | RAD_ITS ---
STUDY: X-RAY CHEST REASON FOR EXAM: Female, 63 years old. chest pain TECHNIQUE: AP COMPARISON: 10/22/2022 FINDINGS: EKG leads project over the chest. The lungs are clear and expanded. There is no demonstrated pleural abnormality. Normal size heart. Normal mediastinum and lucía. Normal visualized pulmonary arteries. Normal visualized aortic arch and descending thoracic aorta. Normal visualized thoracic spine. Normal visualized ribs, clavicles, and shoulders. There is no demonstrated abnormality of the visualized soft tissue structures of the upper abdomen. RAD/Chest 1 View (Portable) IMPRESSION: Stable, nonacute portable x-ray examination of the chest. Electronically Signed: Rakesh Hickey (Brooks), at 20:32 EDT ,
[2023-02-13 19:56] LABS: Absolute Lymphocyte Count 1.92 X10^3/uL (0.83-4.51); Absolute Neutrophil Count 1.7 X10^3/uL (2.0-7.7); Basophil# 0.03 X10^3/uL; Basophil% 0.7 % (0-1); Eosinophil# 0.08 X10^3/uL; Eosinophils% 1.9 % (0-5); Hematocrit 38.9 % (37-47); Hemoglobin 12.2 g/dL (12.0-15.0); Lymphocyte # 1.92 X10^3/ul (0.83-4.51); Lymphocyte % 46.3 % (19-41); Mean Corp Hgb Conc 31.4 g/dL (32-36); Mean Corpuscular Hgb 23.8 pg (27.0-32.0); Mean Corpuscular Volume 75.8 fL (81-99); Mean Platelet Vol. 9.8 fl (6.2-12.0); Monocyte# 0.45 X10^3/uL; Monocyte% 10.8 % (0-10); NRBC Flagged by Analyzer 0 % (0-5); Neutrophil # 1.65 X10^3/uL (2.7-7.7); Neutrophil % 39.8 % (47-70); Platelet Count 237 K/mm3 (150-450); RBC Distribution Width SD 47.8 fl (35.1-43.9); Red Blood Count 5.13 M/mm3 (4.2-5.4); White Blood Count 4.2 K/mm3 (4.4-11.0)
[2023-02-13 20:19] LABS: Anion Gap 7 (5-15); BUN 12 mg/dL (7-18); BUN/Creat Ratio 11.3 RATIO (10-20); Calcium,Total 9.3 mg/dL (8.5-10.1); Chloride 106 mmol/L (98-107); Creatinine, Serum 1.06 mg/dL (0.55-1.02); EST Glomerular Filtration Rate 56 mL/min (>60); Est Glom Filt Rate - Afr Amer 67 mL/min (>60); Estimated Creatinine Clearance 50.85 ml/min; Glucose 99 mg/dL (74-106); Potassium 6.5 mmol/L (3.5-5.1); Sodium Level 136 mmol/L (136-145); Troponin-I HS 26 pg/mL (3.0-54.0)
--- NOTE | 2023-02-13 20:45 | PCM.HP.STD ---
HPI - General General Date of Admission: 02/13/23 Date of Service: 02/13/23 Chief Complaint: Syncopal event. HPI Narrative The patient is a 63 y/o F w/ PMHx: Chronic Leukopenia, Tobacco use, Chronic microcytic anemia/Fe Deficiency anemia, HTN, CKD stage III unclear subtype, HTN, HLD, ADHD/Insomnia/Anxiety and Depression, Tobacco use, EtOH abuse (currently notes ~ 4 tall boys daily, heavier prior, started drinking again to sleep and for pain control) who presents to the [facility] ED on 02/13/23 with history of watching TV with her family this evening and upon attempting to get up and use the restroom she had a syncopal event prompting her family to go in as they heard her fall although they did not witness it but she was already awake with no significant complaints prior to this no any lightheadedness or dizziness but she has had a similar syncopal event previously prompting ED evaluation. Patient unfortunately did hit her head on her fall and has a small hematoma but otherwise no significant plaints of headache, vision changes or altered mental status. From lengthy discussion with patient and family notes several year history of intermittent syncopal events with no prodrome. She was recently [facility] January twice from records noted and did have CTA chest/abdomen/pelvis as well as lab assessment and guaiacs which were negative at that time as patient does report in her history is intermittent dark stools. Family also reported that she has recent ECHO within the last 1-2 weeks and was told she had severe valvular heart disease and needed surgery but I am unable to see these records in the [facility] system. There was recent CTA evaluation/lab work-up this month but no ECHO noted. Work-up in the ED included T96.8, heart rate 69, BP 133/79, respiratory rate 20, 99% on room air, CBC with WBC 4.2, hemoglobin 12.2, MCV 75.8, platelet 237 with ANC 1.7 of note, BMP with potassium 6.5 however this is moderately hemolyzed, BUN/creatinine 12/1.06, troponin 26, chest x-ray with no acute cardiopulmonary findings, CT of the brain with on preliminary review no acute intracranial findings however final radiology read is pending upon request evaluation of patient, EKG with sinus rhythm with no acute evidence of ischemia. [facility] Medical History ADHD (attention deficit hyperactivity disorder) Anemia Anxiety and depression B12 deficiency Chronic pain ETOH abuse History of GI bleed Hypertension Insomnia Iron (Fe) deficiency anemia PUD (peptic ulcer disease) TMJ (temporomandibular joint syndrome) Tobacco use Home Medications temazepam 30 mg capsule 30 mg PO QHS 03/16/16 [History Last Taken 03/15/16] rollator walker with seat #1 ea 10/09/20 [Rx Last Taken Unknown] medical marijauna PO 10/16/20 [History Last Taken Unknown] cyclobenzaprine 10 mg tablet 20 mg PO TID 10/24/20 [History Last Taken Unknown] cyanocobalamin (vitamin B-12) 1,000 mcg/mL injection solution 1,000 mcg IM Q30D #1 mL 12/20/20 [Rx Last Taken Unknown] diclofenac sodium 1 % topical gel 4 g topical .QID #100 grams 03/03/21 [Rx Last Taken Unknown] omeprazole 40 mg capsule,delayed release 40 mg PO DAILY #90 caps 03/03/21 [Rx Last Taken Unknown] triamterene 37.5 mg-hydrochlorothiazide 25 mg capsule 1 cap PO DAILY #90 caps 03/03/21 [Rx Last Taken Unknown] syringe with needle 1 mL 25 gauge x 1 #100 ea 03/05/21 [History Last Taken Unknown] albuterol sulfate 90 mcg/actuation aerosol inhaler 2 puff inhalation Q4H PRN PRN SOB, wheezing #8.5 grams 04/16/21 [Rx Last Taken Unknown] plecanatide 3 mg tablet (Trulance) 3 mg DAILY 06/21/21 [History Last Taken Unknown] bupropion HCl 300 mg 24 hr tablet, extended release 300 mg PO QAM #60 tabs 08/29/21 [Rx Last Taken Unknown] valacyclovir 500 mg tablet (Valtrex) 500 mg PO DAILY Herpes Flare #90 tabs 10/28/21 [Rx Last Taken Unknown] ergocalciferol (vitamin D2) 1,250 mcg (50,000 unit) capsule 50,000 unit PO Q2W 11/26/21 [History Last Taken Unknown] Allergy/AdvReac Type Severity Reaction Status Date / Time buprenorphine [From Butran] Allergy Rash Verified 10/22/22 10:10 NSAIDS (Non-Steroidal AdvReac Nausea Verified 10/22/22 10:10 Anti-Inflamma Family History Father Myocardial infarction Alcohol abuse Mother CVA (cerebral vascular accident) Hypertension Thrombosis Alcohol abuse Sister Lupus Surgical History H/O gastric bypass Hx of bariatric surgery S/P Social History (Updated 02/13/23 @ 22:[address] Jeniffer Campos MD) household members: other details: grandson housing: house current occupational status: retired and disabled history of recent travel: No Smoking Status: Light Smoker (<10/day) Smokeless tobacco user: other alcohol intake: current alcohol intake frequency: 3 or more drinks per day details: Patient reports history of at 2-tall boys daily at least. substance use type: does not use what type of physical activity do you participate in: none and walking seatbelt use: always do you feel safe at home: Yes additional social history: single ROS ROS Narrative Admission Review of Systems: CONSTITUTIONAL: No weight loss, fever, chills, + weakness or fatigue. HEENT: Eyes: No visual loss, blurred vision, double vision or yellow sclerae. Ears, Nose, Throat: No hearing loss, sneezing, congestion, runny nose or sore throat. SKIN: No rash or itching, lesions, wounds. CARDIOVASCULAR: + Syncope. No chest pain, chest pressure or chest discomfort, palpitations, edema, orthopnea, syncopal events. RESPIRATORY: No shortness of breath, cough or sputum, wheezing, hemoptysis. GASTROINTESTINAL: + Intermittent chronic abdominal pain, intermittent chronic dark stools on Fe, No anorexia, nausea, vomiting, diarrhea, BRBPR. GENITOURINARY: No dysuria, frequency, urgency or retention. NEUROLOGICAL: + Syncopal event. No headache, dizziness, paralysis, ataxia, numbness or tingling in the extremities, focal weakness, change in bowel or bladder control, seizure. MUSCULOSKELETAL: + muscle, back pain, joint pain or stiffness. HEMATOLOGIC:+ anemia, bleeding or bruising. LYMPHATICS: No enlarged nodes. No history of splenectomy. PSYCHIATRIC: + history of depression or anxiety. ENDOCRINOLOGIC: No reports of sweating, cold or heat intolerance. No polyuria or polydipsia. ALLERGIES: No history of asthma, hives, eczema or rhinitis. Vital Signs Vital Signs Vital Signs: 02/13/23 19:21 02/13/23 19:26 Temperature 96.8 F L Temperature Source Temporal Pulse Rate 69 Respiratory Rate 22 H Respiratory Pattern Normal Blood Pressure 133/79 H Blood Pressure Mean 97 Pulse Ox 99 Oxygen Delivery Method Room Air Weight Weight: 171 lb 1.259 oz Body Mass Index (BMI) 27.6 Physical Exam Narrative Physical Examination: General: Awake, alert, oriented x 3 and cooperative, laying in the ED bed, fatigued, no acute distress at this time, denies any lightheadedness or dizziness. Skin: Normal color, normal turgor, no icterus, no cyanosis. HEENT: AT/NC, EOMI, PERRLA, mildly dry MM, no carotid bruits or JVD noted. Lungs: Mildly diminished, greater bases, proper effort, no rales, ronchi or wheezing. Heart: Currently regular rate and rhythm; no gallop, rub audible, +SM. Abdomen: Soft, reports vague abdominal discomfort but no rebound or guarding even in the epigastric region, ND, mildly hyperactive BS,+ HM. Extremities: No cyanosis, clubbing, or edema. Neurological: Patient awake, alert, oriented as noted, cognitive function intact; pupils equally reactive to light and accommodation, cranial nerves grossly normal, moving all 4 extremities, no focal deficits, strength mildly to moderately globally decreased secondary to acute presentation complaints and underlying comorbidities. Psychiatric: Affect appears flat, fatigued, no acute evidence of depressive or anxiety feelings. Results Lab / Micro Data 02/13/23 19:30 02/13/23 20:45 Labs: Laboratory Results - last 24 hr 02/13/23 19:30: WBC 4.2 L, RBC 5.13, Hgb 12.2, Hct 38.9, MCV 75.8 L, MCH 23.8 L, MCHC 31.4 L, RDW Std Deviation 47.8 H, RDW Coeff of Adelia 18.0 H, Plt Count 237, MPV 9.8, Immature Gran % (Auto) 0.500, Neut % (Auto) 39.8 L, Lymph % (Auto) 46.3 H, [place] % (Auto) 10.8 H, Eos % (Auto) 1.9, Baso % (Auto) 0.7, Absolute Neuts (auto) 1.7 L, Absolute Lymphs (auto) 1.92, Nucleated RBC % 0, Sodium 136, Potassium 6.5 H*, Chloride 106, Carbon Dioxide 23.0, Anion Gap 7, BUN 12, Creatinine 1.06 H, Estim Creat Clear Calc 50.85, Est GFR (MDRD) Af Amer 67, Est GFR (MDRD) Non-Af 56 L, BUN/Creatinine Ratio 11.3, Glucose 99, Calcium 9.3, Troponin I High Sens 26 Rhythm Strip Rhythm Strip: Sinus Rhythm Rate: 78 Ectopy: None Radiology Impression Chest X-Ray 02/13/23 19:55 IMPRESSION: Stable, nonacute portable x-ray examination of the chest. Electronically Signed: Rakesh Hickey ([place]oks), at 20:32 EDT Reading Location ID and State: [facility] / [place] , Service support , Assessment & Plan Assessment/Plan (1) Syncope: PLAN: Plan The patient is a 63 y/o F w/ PMHx: Chronic Leukopenia, Tobacco use, Chronic microcytic anemia/Fe Deficiency anemia, HTN, CKD stage III unclear subtype, HTN, HLD, ADHD/Insomnia/Anxiety and Depression, Tobacco use, EtOH abuse (currently notes ~ 4 tall boys daily, heavier prior, started drinking again to sleep and for pain control) who presents to the [facility] ED on 02/13/23 with history of watching TV with her family this evening and upon attempting to get up and use the restroom she had a syncopal event prompting her family to go in as they heard her fall although they did not witness it but she was already awake with no significant complaints prior to this no any lightheadedness or dizziness but she has had a similar syncopal event previously prompting ED evaluation. #1. Mechanical fall secondary to Syncopal Event with history of similar prior: Unclear etiology but of note has occurred previously, CT head without acute findings on preliminary review but awaiting radiology read, EKG in ED w/ sinus rhythm without evidence of acute ischemia, CXR w/ no acute cardiopulmonary findings, initial trop normal. Will admit to PCU, place on a monitored bed to assure no acute myocardial infarction with serial cardiac enzymes and EKGs. Will maintain on fall precautions, obtain admission orthostatic, continue IVFs, will obtain ECHO. #2. Hyperkalemia, falsely elevated, secondary to moderate hemolysis: Admission potassium 6.5 however the sample is moderately hemolyzed, likely falsely elevated, will repeat CMP in AM. #3. Chronic microcytic anemia/Iron deficiency anemia with suspected chronic issues with GI bleeding with history of peptic ulcer disease: Admission hemoglobin 12.2, baseline prior has been 12-13 but there was a period where patient was 10-11 range with a history of even being lower with prior evidence of peptic ulcer disease with GI bleed with underlying alcohol abuse ongoing, will maintain as noted on vitamin B-12 and folic acid as well as multivitamin with mineral given alcohol abuse history. Given recent negative guaiacs and stable hemoglobin we will just continue to monitor at this point but strongly recommend patient complete sobriety and follow-up early with gastroenterology. Vitamin B12 and folic acid levels pending. Will continue BID PPI and Fe supplementation. #4. EtOH Abuse: Patient notes routine consumption of at least 2 tall boys per day. Will maintain on CIWA protocol, MVI, thiamine and folic acid. Magnesium and phosphorus levels requested. Case management consulted for substance abuse. Will have as needed agents per alcohol abuse order set as well. #5. Chronic leukopenia: Admission CBC with WC 4.2 with ANC less than 2 and from review of prior records this is similar to her noted prior baseline, will continue to trend CBC. #6. Anxiety and depression/ADHD/insomnia: We will continue patient home temazepam, bupropion home regimen. #7. Chronic Kidney Disease Stage III, unclear subtype: Admission BUN/Cr 12/1.06, baseline renal function primarily 0.9-1.1, repeat BMP in AM. #8. Status post prior bariatric surgery: Patient reports she has not been taking any B12 supplementation. As noted we will place on at least oral supplementation at this time. Vitamin B12 level pending. #9. Tobacco Abuse: Encouraged cessation, inpatient consultation per RT, NR if desired. #10. Hypertension: Continue home regimen including triamterene hydrochlorothiazide however if orthostatics are notable we will hold, PRN hydralazine. #11. GERD: We will continue patient home PPI. #12. DVT prophylaxis: SCDs. #13. CODE STATUS: Full code. Admission Evaluation Time spent evaluating chart, patient history, patient evaluation, care planning and discussion with specialists with serial repeat visits to evaluation and discuss status with also family: 75 minutes. Charges/Coding Visit Charges Inpatient E&M: 05852 Init Hosp L3
[2023-02-13 20:55] VITALS: BP 122/80; PULSE 82; RESP 18; TEMP 36; O2SAT 98
[2023-02-13 22:07] LABS: Potassium 4.1 mmol/L (3.5-5.1)
[2023-02-13 22:30] VITALS: BMI 27.0
--- NOTE | 2023-02-13 22:35 | ECHOD_ITS ---
Reason For Study: SYNCOPE/NEAR SYNCOPE Procedure This was a 2D Doppler, Color Flow transthoracic echocardiogram. Exam performed portable in patient room. Left Ventricle Normal size and thickness. The left ventricular ejection fraction is 65 %. Normal diastology for age. Right Ventricle Normal right ventricle. Atria The left and right atria are normal. Mitral Valve Mild diffuse mitral valve thickening. Trivial mitral valve insufficiency. Tricuspid Valve Trivial tricuspid valve insufficiency. Normal pulmonary artery pressure. Aortic Valve Trisinus/trileaflet aortic valve. Mild (1+) aortic valve insufficiency. Pulmonic Valve The pulmonic valve is not well visualized. Great Vessels Normal sized aortic root. Pericardium/Pleural No pericardial effusion. MMode/2D Measurements & Calculations LVIDd: 4.5 cm IVSd: 0.83 cm Ao root diam: 3.1 cm LVIDs: 2.4 cm LVPWd: 0.82 cm RVDd: 3.2 cm FS: 46.1 % LAV(MOD-bp): 42.5 ml LVAd ap4: 28.6 cm2 SV(MOD-sp4): 56.4 ml LAV(MOD-bp) Indexed: 22.7 ml/m2 LVLd ap4: 7.2 cm LAV(MOD-sp2): 43.5 ml EDV(MOD-sp4): 89.9 ml LAV(MOD-sp4): 38.6 ml EDV(sp4-el): 96.2 ml LVAs ap4: 15.6 cm2 LVLs ap4: 6.0 cm ESV(MOD-sp4): 33.5 ml ESV(sp4-el): 34.7 ml EF(MOD-sp4): 62.7 % EF(sp4-el): 64.0 % SV(sp4-el): 61.5 ml LA A4 area: 14.7 cm2 LA dimension(2D): 2.9 cm RA A4 area: 13.4 cm2 Time Measurements MV dec time: 0.22 sec Doppler Measurements & Calculations MV E max ankur: 65.8 cm/sec Lat Peak E' Ankur: 9.8 cm/sec Med Peak E' Ankur: 9.1 cm/sec MV A max ankur: 85.0 cm/sec E/E' lat: 6.8 E/E' med: 7.2 MV E/A: 0.77 Ao V2 max: 202.7 cm/sec AI max ankur: 460.7 cm/sec LV V1 max: 196.7 cm/sec Ao max P.4 mmHg AI max P.9 mmHg LV V1 max P.5 mmHg AI dec slope: 358.5 cm/sec2 AI P1/2t: 376.4 msec PA V2 max: 105.9 cm/sec TR max ankur: 233.0 cm/sec TR max P.7 mmHg ECHO/Echo Complete Interpretation Summary The left ventricular ejection fraction is 65 %. Mild diffuse mitral valve thickening. Mild (1+) aortic valve insufficiency. Ordering Physician: Jeniffer Campos Performed By: Eve Painter RDCS
[2023-02-13 23:01] VITALS: BP 139/85; PULSE 67; RESP 16; TEMP 36.6; O2SAT 100
[2023-02-13 23:09] VITALS: BP 124/79; BP 131/79; BP 146/94; PULSE 70; PULSE 79
[2023-02-13] MEDS: 0.9% Normal Saline 1,000 ML 100 ML IV (23:21)
[2023-02-13 23:37] LABS: Phosphorus 4.2 mg/dL (2.5-4.9); Troponin-I HS 26 pg/mL (3.0-54.0)
[2023-02-13 23:50] LABS: Alcohol, Blood (Medical)-Serum < 3.0 mg/dL
[2023-02-14] MEDS: Acetaminophen 325 MG Tablet 650 MG PO ×3 (00:11→16:17)
[2023-02-14] MEDS: Temazepam 15 MG Capsule 30 MG PO ×2 (00:16→22:10)
[2023-02-14 02:32] LABS: Absolute Neutrophil Count 1.6 X10^3/uL (2.0-7.7); Basophil# 0.02 X10^3/uL; Basophil% 0.5 % (0-1); Eosinophil# 0.09 X10^3/uL; Eosinophils% 2.1 % (0-5); Hematocrit 31.1 % (37-47); Hemoglobin 9.9 g/dL (12.0-15.0); Lymphocyte % 47.8 % (19-41); Mean Corp Hgb Conc 31.8 g/dL (32-36); Mean Corpuscular Hgb 24.2 pg (27.0-32.0); Monocyte# 0.54 X10^3/uL; Monocyte% 12.3 % (0-10); NRBC Flagged by Analyzer 0 % (0-5); Neutrophil # 1.63 X10^3/uL (2.7-7.7); Neutrophil % 37.1 % (47-70); Platelet Count 220 K/mm3 (150-450); RBC Distribution Width CV 17.8 % (11.6-14.6); RBC Distribution Width SD 48.1 fl (35.1-43.9); Red Blood Count 4.09 M/mm3 (4.2-5.4); White Blood Count 4.4 K/mm3 (4.4-11.0)
[2023-02-14 03:14] LABS: Troponin-I HS 27 pg/mL (3.0-54.0)
[2023-02-14 03:23] VITALS: BP 118/85; PULSE 73; RESP 16; TEMP 36.7; O2SAT 99
[2023-02-14 03:30] LABS: ALB/GLOB Ratio 0.8 RATIO (0.9-2.4); AST(SGOT) 14 U/L (15-37); Alanine Aminotransfer ALT/SGPT 13 U/L (13-56); Albumin, Serum 2.7 g/dL (3.2-5.0); Alkaline Phosphatase 80 U/L (45-117); Anion Gap 5 (5-15); BUN 12 mg/dL (7-18); BUN/Creat Ratio 13.2 RATIO (10-20); Calcium,Total 8.4 mg/dL (8.5-10.1); Chloride 112 mmol/L (98-107); Creatinine, Serum 0.91 mg/dL (0.55-1.02); EST Glomerular Filtration Rate 66 mL/min (>60); Est Glom Filt Rate - Afr Amer 80 mL/min (>60); Estimated Creatinine Clearance 59.24 ml/min; Globulin 3.2 g/dL (2.2-4.2); Glucose 116 mg/dL (74-106); Potassium 3.4 mmol/L (3.5-5.1); Protein, Total 5.9 g/dL (6.4-8.2); Sodium Level 140 mmol/L (136-145)
[2023-02-14 03:36] VITALS: BMI 27.0
[2023-02-14] MEDS: Ondansetron 4 MG/2 ML Vial IV (05:57)
--- NOTE | 2023-02-14 07:36 | PCM.PN.HOSP ---
Reason for Visit Reason for Visit: Diagnoses Syncope and collapse (02/13/23) Subjective Subjective Patient is a 63-year-old female who presented following a syncopal episode Objective Data Objective Data Vital Signs: Vital Signs Temp Pulse Resp BP Pulse Ox O2 Del Method 98.1 F 73 16 118/85 H 99 Room Air 02/14/23 03:23 02/14/23 03:23 02/14/23 03:23 02/14/23 03:23 02/14/23 03:23 02/14/23 03:24 Oxygen Delivery Method Room Air Weight: 75.9 kg Body Mass Index (BMI) 27.0 Intake & Output: Intake and Output for Last 24 Hours 02/12/23 02/13/23 02/14/23 23:59 23:59 23:59 Output Total 700 / 700 Balance -700 / -700 Lab / Micro Data 02/14/23 01:55 02/14/23 01:55 Labs: Laboratory Results - last 24 hr 02/13/23 19:30: WBC 4.2 L, RBC 5.13, Hgb 12.2, Hct 38.9, MCV 75.8 L, MCH 23.8 L, MCHC 31.4 L, RDW Std Deviation 47.8 H, RDW Coeff of [place] 18.0 H, Plt Count 237, MPV 9.8, Immature Gran % (Auto) 0.500, Neut % (Auto) 39.8 L, Lymph % (Auto) 46.3 H, [place] % (Auto) 10.8 H, Eos % (Auto) 1.9, Baso % (Auto) 0.7, Absolute Neuts (auto) 1.7 L, Absolute Lymphs (auto) 1.92, Nucleated RBC % 0, Sodium 136, Potassium 6.5 H*, Chloride 106, Carbon Dioxide 23.0, Anion Gap 7, BUN 12, Creatinine 1.06 H, Estim Creat Clear Calc 50.85, Est GFR (MDRD) Af Amer 67, Est GFR (MDRD) Non-Af 56 L, BUN/Creatinine Ratio 11.3, Glucose 99, Calcium 9.3, Troponin I High Sens 26 02/13/23 20:45: Potassium 4.1, Magnesium 2.0 02/13/23 23:00: Phosphorus 4.2, Troponin I High Sens 26, Ethyl Alcohol < 3.0 02/14/23 01:55: WBC 4.4, RBC 4.09 L, Hgb 9.9 L, Hct 31.1 L, MCV 76.0 L, MCH 24.2 L, MCHC 31.8 L, RDW Std Deviation 48.1 H, RDW Coeff of [place] 17.8 H, Plt Count 220, MPV 10.0, Immature Gran % (Auto) 0.200, Neut % (Auto) 37.1 L, Lymph % (Auto) 47.8 H, [place] % (Auto) 12.3 H, Eos % (Auto) 2.1, Baso % (Auto) 0.5, Absolute Neuts (auto) 1.6 L, Absolute Lymphs (auto) 2.10, Nucleated RBC % 0, Sodium 140, Potassium 3.4 L, Chloride 112 H, Carbon Dioxide 23.0, Anion Gap 5, BUN 12, Creatinine 0.91, Estim Creat Clear Calc 59.24, Est GFR (MDRD) Af Amer 80, Est GFR (MDRD) Non-Af 66, BUN/Creatinine Ratio 13.2, Glucose 116 H, Calcium 8.4 L, Total Bilirubin 0.20, AST 14 L, ALT 13, Alkaline Phosphatase 80, Troponin I High Sens 27, Total Protein 5.9 L, Albumin 2.7 L, Globulin 3.2, Albumin/Globulin Ratio 0.8 L, Folate 7.40 Radiography Diagnostic Testing: Radiology Impression Brain CT 02/13/23 19:38 IMPRESSION: No acute intracranial hemorrhage or mass effect. Electronically Signed: Rakesh Hickey ([place]oks), at 20:57 EDT , Chest X-Ray 02/13/23 19:55 IMPRESSION: Stable, nonacute portable x-ray examination of the chest. Electronically Signed: Rakesh Hickey (Brooks), at 20:32 EDT , Rhythm Strip Rhythm Strip: Sinus Rhythm Rate: 78 Ectopy: None Physical Exam Narrative GENERAL: cooperative HEENT: Atraumatic; normocephalic EYES; Anicteric, Normal Conjunctiva NECK; supple, normal thyroid, RESPIRATORY: Diminished to auscultation CARDIOVASCULAR: Regular S1 S2, GI: soft, normoactive bowel sounds, : No Renal angle tenderness; EXTREMITIES: No edema, no clubbing, MUSCULOSKELETAL: no muscle wasting NEURO: Awake; no lateralizing signs. SKIN: No Rash PSYCH; Flat affect Assessment & Plan Assessment/Plan (1) Syncope: QUALIFIERS: Syncope type: unspecified Qualified Code(s): R55 - Syncope and collapse PLAN: Plan Patient is a 63-year-old female who presented following a syncopal episode 1. Syncope ? Patient admitted to monitored bed for continuous telemetry monitoring to rule out arrhythmia. As part of the management every shift orthostatics ordered 2. Hyperkalemia ? Thought to be secondary to hemolyzed sample repeat labs this a.m. did reveal potassium of 3.4 3. Chronic microcytic anemia ? Secondary to iron deficiency anemia. Patient has history of peptic ulcer disease on PPI. Ordered iron studies and patient started on p.o. iron 4. Hypertension - Blood pressure controlled, home medications continued with dose adjustment as needed 5. Chronic alcohol dependence ? Counseled on cessation, 6. Tobacco dependence - Counseled on cessation, offered nicotine patch for tobacco cravings 7. Hypokalemia -Corrected per protocol 8. DVT prophylaxis ? Bilateral SCDs Time spent in the patient's overall evaluation,decision-making process, review of diagnostic data, adjustment of management, discussion with other providers, nursing nursing and ancillary staff involved in patient's care documentation, 50 Minutes Charges/Coding Visit Charges Inpatient E&M: 47866 [facility] Hosp L3
[2023-02-14 07:37] VITALS: O2SAT 95
[2023-02-14 08:53] VITALS: BP 127/85; PULSE 72; RESP 17; TEMP 36.8; O2SAT 100
[2023-02-14] MEDS: 0.9% Normal Saline 1,000 ML 100 ML IV (09:01)
[2023-02-14] MEDS: Ferrous Gluconate 324 MG Tablet PO ×2 (09:04→18:15)
[2023-02-14] MEDS: Pantoprazole Sodium 40 MG Tablet PO ×2 (09:05→22:09)
[2023-02-14] MEDS: Thiamine Hydrochloride 100 MG Tablet PO (09:05)
[2023-02-14] MEDS: Multivitamins,Ther W-Minerals Tablet 1 TABLET PO (09:05)
[2023-02-14] MEDS: Folic Acid 1 MG Tablet PO (09:05)
[2023-02-14] MEDS: buPROPion (XL) 300 MG TABLET.XL PO (09:06)
[2023-02-14] MEDS: Triamterene 37.5MG/Hctz 25MG Capsule 1 CAP PO (09:06)
[2023-02-14 09:15] LABS: Ferritin 9 ng/mL (8-252); Iron 23 ug/dL (50-170); Iron Binding Capacity,Total 375 ug/dL (250-450); PERCENT IRON SATURATION 6.1 % (15.0-55.0)
[2023-02-14] MEDS: Potassium Chloride Oral Soln 20 MEQ/15 ML UDC 40 MEQ PO (10:00)
[2023-02-14 11:33] LABS: Amphetamine Urine VISTA NEGATIVE (<1000 ng/mL); Barbiturate Urine VISTA NEGATIVE (< 200 ng/mL); Benzodiazepine Urine VISTA NEGATIVE (< 200 ng/mL); Cocaine Urine VISTA NEGATIVE (< 300 ng/mL); Ecstacy Urine VISTA NEGATIVE (< 500 ng/mL); Methadone Urine VISTA NEGATIVE (< 300 ng/mL); PCP Urine VISTA NEGATIVE (< 25 ng/mL); THC Urine VISTA POSITIVE (< 50 ng/mL); Vista UDS pH Range 6
[2023-02-14 16:07] VITALS: BP 147/90; PULSE 85; RESP 17; TEMP 36.7; O2SAT 97
[2023-02-14] MEDS: hydrOXYzine PAM 25 MG Capsule 50 MG PO (16:17)
[2023-02-14] MEDS: Dicyclomine 10 MG Capsule 20 MG PO (16:17)
[2023-02-14] MEDS: Mag Hydrox/Al Hydrox/Simeth 30 ML UDC PO (18:15)
[2023-02-14] MEDS: Lidocaine 5% Patch 1 PATCH TOPICAL ×2 (18:32→20:08)
--- NOTE | 2023-02-14 19:00 | RAD_ITS ---
EXAM: XR LEFT SHOULDER COMPLETE, 2 OR MORE VIEWS CLINICAL INDICATION: pain TECHNIQUE: Two or more views of the left shoulder. COMPARISON: No relevant prior studies available. FINDINGS: BONES/JOINTS: No acute abnormality. SOFT TISSUES: Normal. No soft tissue swelling or gas. No radiopaque foreign body. RAD/Shoulder min 2 Views IMPRESSION: Intact left shoulder. Electronically Signed: Kavon Panchal MD at 19:19 EDT ,
[2023-02-14 22:00] VITALS: BP 124/85; PULSE 76; RESP 16; TEMP 36.1; O2SAT 96
[2023-02-14] MEDS: 0.9% Saline Lock 10 ML Syringe IV (22:10)
[2023-02-15] VITALS (7 sets, daily range): BP systolic 109–148; BP diastolic 72–95; PULSE 68–79; RESP 15–18; TEMP 36.1–36.3; O2SAT 93–100; BMI 27.1
[2023-02-15 06:29] LABS: Absolute Lymphocyte Count 1.73 X10^3/uL (0.83-4.51); Absolute Neutrophil Count 0.7 X10^3/uL (2.0-7.7); Basophil# 0.02 X10^3/uL; Basophil% 0.7 % (0-1); Eosinophils% 3.5 % (0-5); Hematocrit 31.2 % (37-47); Hemoglobin 9.9 g/dL (12.0-15.0); Lymphocyte # 1.73 X10^3/ul (0.83-4.51); Lymphocyte % 61.1 % (19-41); Mean Corp Hgb Conc 31.7 g/dL (32-36); Mean Corpuscular Hgb 24.1 pg (27.0-32.0); Mean Corpuscular Volume 76.1 fL (81-99); Mean Platelet Vol. 9.7 fl (6.2-12.0); Monocyte# 0.31 X10^3/uL; NRBC Flagged by Analyzer 0 % (0-5); Neutrophil # 0.67 X10^3/uL (2.7-7.7); Neutrophil % 23.7 % (47-70); POSITIVE DIFFERENTIAL YES; Platelet Count 183 K/mm3 (150-450); White Blood Count 2.8 K/mm3 (4.4-11.0)
[2023-02-15 06:57] LABS: Differential Indicated SCAN CRITERIA MET
[2023-02-15 07:07] LABS: Differential Comment SCANNED
[2023-02-15 07:22] LABS: ALB/GLOB Ratio 0.8 RATIO (0.9-2.4); AST(SGOT) 19 U/L (15-37); Alanine Aminotransfer ALT/SGPT 15 U/L (13-56); Albumin, Serum 2.7 g/dL (3.2-5.0); Alkaline Phosphatase 81 U/L (45-117); Anion Gap 3 (5-15); BUN 9 mg/dL (7-18); BUN/Creat Ratio 9.8 RATIO (10-20); Chloride 111 mmol/L (98-107); Cholesterol 196 mg/dL (200); Creatinine, Serum 0.92 mg/dL (0.55-1.02); EST Glomerular Filtration Rate 65 mL/min (>60); Est Glom Filt Rate - Afr Amer 79 mL/min (>60); Estimated Creatinine Clearance 58.59 ml/min; Globulin 3.4 g/dL (2.2-4.2); Glucose 99 mg/dL (74-106); High Density Lipoprotein 92 mg/dL; Magnesium 2.3 mg/dL (1.6-2.6); Phosphorus 3.6 mg/dL (2.5-4.9); Potassium 4.1 mmol/L (3.5-5.1); Protein, Total 6.1 g/dL (6.4-8.2); Sodium Level 138 mmol/L (136-145); Thyroid Stim Hormone (TSH) 1.25 uIU/mL (0.358-3.74); Triglycerides 141 mg/dL; Very Low Density Lipoprotein 28 mg/dL (5-40)
[2023-02-15 08:38] LABS: Vitamin B12 199 pg/mL (211-911)
[2023-02-15] MEDS: Thiamine Hydrochloride 100 MG Tablet PO (10:30)
[2023-02-15] MEDS: Folic Acid 1 MG Tablet PO (10:30)
[2023-02-15] MEDS: buPROPion (XL) 300 MG TABLET.XL PO (10:30)
[2023-02-15] MEDS: Multivitamins,Ther W-Minerals Tablet 1 TABLET PO (10:30)
[2023-02-15] MEDS: Ferrous Gluconate 324 MG Tablet PO ×2 (10:30→16:27)
[2023-02-15] MEDS: Triamterene 37.5MG/Hctz 25MG Capsule 1 CAP PO (10:30)
[2023-02-15] MEDS: Pantoprazole Sodium 40 MG Tablet PO ×2 (10:30→22:25)
[2023-02-15] MEDS: 0.9% Saline Lock 10 ML Syringe IV (10:35)
--- NOTE | 2023-02-15 14:22 | PN.HOSP_ITS ---
Reason for Visit Reason for Visit: Diagnoses Syncope and collapse (02/13/23) Subjective Subjective Patient with a spattering of nonspecific complaints including intermittent generalized headache as well as intermittent nausea, sharp pain in left shoulder and left side of abdomen that seem to come around the same time it can last for an hour at a time and are also intermittent in nature. Reports she is feeling better than yesterday and she is sleeping better Objective Data Objective Data Vital Signs: Vital Signs Temp Pulse Resp BP Pulse Ox O2 Del Method 97.4 F L 78 18 109/74 100 Room Air 02/15/23 10:15 02/15/23 10:15 02/15/23 10:15 02/15/23 10:15 02/15/23 10:15 02/15/23 10:15 Oxygen Delivery Method Room Air Weight: 76.2 kg Body Mass Index (BMI) 27.1 Intake & Output: Intake and Output for Last 24 Hours 02/13/23 02/14/23 02/15/23 23:59 23:59 23:59 Intake Total 1721.67 / 1721.67 220 / 220 Output Total 700 / 700 1800 / 1800 Balance 1021.67 / 1021.67 -1580 / -1580 Lab / Micro Data 02/15/23 06:00 02/15/23 06:00 Labs: Laboratory Results - last 24 hr 02/14/23 01:55: Vitamin B12 199 L 02/15/23 06:00: WBC 2.8 L, RBC 4.10 L, Hgb 9.9 L, Hct 31.2 L, MCV 76.1 L, MCH 24.1 L, MCHC 31.7 L, RDW Std Deviation 49.0 H, RDW Coeff of Adelia 18.0 H, Plt Count 183, MPV 9.7, Immature Gran % (Auto) 0.000, Neut % (Auto) 23.7 L, Lymph % (Auto) 61.1 H, [place] % (Auto) 11.0 H, Eos % (Auto) 3.5, Baso % (Auto) 0.7, Absolute Neuts (auto) 0.7 L, Absolute Lymphs (auto) 1.73, Nucleated RBC % 0, Differential Comment SCANNED, Sodium 138, Potassium 4.1, Chloride 111 H, Carbon Dioxide 24.0, Anion Gap 3 L, BUN 9, Creatinine 0.92, Estim Creat Clear Calc 58.59, Est GFR (MDRD) Af Amer 79, Est GFR (MDRD) Non-Af 65, BUN/Creatinine Ratio 9.8 L, Glucose 99, Calcium 9.0, Phosphorus 3.6, Magnesium 2.3, Total Bilirubin 0.20, AST 19, ALT 15, Alkaline Phosphatase 81, Total Protein 6.1 L, Albumin 2.7 L, Globulin 3.4, Albumin/Globulin Ratio 0.8 L, Triglycerides 141, Cholesterol 196, LDL Cholesterol 76, VLDL Cholesterol 28, HDL Cholesterol 92, TSH 1.25 Radiography Diagnostic Testing: Radiology Impression Shoulder X-Ray 02/14/23 19:00 IMPRESSION: Intact left shoulder. Electronically Signed: Kavon Panchal MD at 19:19 EDT , Rhythm Strip Rhythm Strip: Sinus Rhythm Rate: 78 Ectopy: None Physical Exam Narrative General: Alert, oriented, no apparent distress HEENT: Atraumatic, normocephalic Eyes: Anicteric, normal conjunctiva, extraocular movements grossly intact Neck: Supple Respiratory: Clear to auscultation bilaterally, normal respiratory effort Cardiovascular: Regular rate and rhythm GI: Soft, nontender, nondistended Extremities: No edema Musculoskeletal: Moving all extremities Neuro: No overt focal neurological deficits Skin: No rashes appreciated Psych: Cooperative Assessment & Plan Assessment/Plan (1) Syncope: QUALIFIERS: Syncope type: unspecified Qualified Code(s): R55 - Syncope and collapse (2) Hypertension: (3) Anxiety and depression: (4) Insomnia: PLAN: Plan #syncope -Episode after getting up from watching TV and ambulating to bathroom -Denied lightheadedness or dizziness and was already awake and alert right after episode, had previous syncopal episode however so came to ED -Was in [facility] twice in January and hat CTA c/abd/pelv and labs and guaiacs which were all negative -admitted to tele -orthostats negative though pt reports dizziness with standing still -echo pending, reportedly had echo previously and was told she had severe valv heart disease and needed surgery but unable to view these records -further workup/management pending echo -may need holter on d/c -Does report intermittent whole head headaches but has a significant difficulty with describing symptomatology and answering specific questions. Given overall benign appearance with symptoms intermittent and CT had within normal limits do not think further urgent inpatient work-up needed pursued but will benefit from following on an outpatient basis #Chronic microcytic anemia -Secondary to iron deficiency anemia. Patient has history of peptic ulcer disease on PPI. Continue iron supplementation -Is b12 deficiency, replace #Neutropenia -Has had this intermittently through the past, may be alcohol related -Would likely benefit from outpatient evaluation if this has not yet been pursued #History of gastric bypass surgery -Continue to follow on an outpatient basis and will need labs monitored to assess for deficiencies #CKD stage IIIb -Appears to be at baseline, continue present management #HTN -cont home meds #Chronic alcohol dependence ? Counseled on cessation #Insomnia -Reportedly previously took temazepam and this was restarted here due to her persistent difficulty sleeping, discussed that this will not be prescribed upon discharge and she will have to establish with a physician for further prescribing of this benzodiazepine #Tobacco dependence - Counseled on cessation, offered nicotine patch for tobacco cravings #Hypokalemia -Corrected per protocol # DVT prophylaxis ? Bilateral SCDs Time spent in the patient's overall evaluation,decision-making process, review of diagnostic data, adjustment of management, discussion with other providers, nursing nursing and ancillary staff involved in patient's care documentation, 52 minutes Charges/Coding Visit Charges Inpatient E&M: 78373 Subs Hosp L3
--- NOTE | 2023-02-15 15:08 | CHAPLAIN ---
Type of Pastoral Visit _x__ Initial Visit ___ Follow-up Visit ___ On-call Visit ___ General Patient Visit ___ Spiritual Assessment ___ Family Conference ___ Bereavement ___ Rapid Response ___ Code Blue ___ Other (describe below) Pastoral Care Referral From _x__ Patient ___ Family ___ Nurse ___ Physician ___ Server Software Engineer ___ Human Resources Manager Manufacturing ___ Other (describe below) Sacrament/Intervention _x__ Active listening ___ Anointing ___ Latter Day ___ Bereavement ___ Communion ___ Anna exploration ___ ___ Life review ___ Prayer ___ Reconciliation ___ Sacrament of Sick ___ Supportive presence ___ Wedding ___ Other (describe below) Pastoral Comments offer of presence and support given; pt was on the phone and states she needs to make another phone call; pt says this director of sports medicine can return at another time
[2023-02-15] MEDS: Acetaminophen 325 MG Tablet 650 MG PO (16:56)
[2023-02-15] MEDS: Gabapentin 300 MG Capsule PO (16:56)
[2023-02-15] MEDS: Lidocaine 5% Patch 1 PATCH TOPICAL (19:13)
[2023-02-15] MEDS: Temazepam 15 MG Capsule 30 MG PO (22:26)
[2023-02-16 00:45] VITALS: BP 121/75; PULSE 75; RESP 16; TEMP 36.1; O2SAT 100
[2023-02-16 03:22] VITALS: BMI 27.7
[2023-02-16 05:41] LABS: Absolute Lymphocyte Count 2.12 X10^3/uL (0.83-4.51); Absolute Neutrophil Count 0.9 X10^3/uL (2.0-7.7); Basophil# 0.03 X10^3/uL; Basophil% 0.8 % (0-1); Eosinophil# 0.14 X10^3/uL; Hematocrit 35.2 % (37-47); Hemoglobin 10.5 g/dL (12.0-15.0); Lymphocyte # 2.12 X10^3/ul (0.83-4.51); Lymphocyte % 60.1 % (19-41); Mean Corp Hgb Conc 29.8 g/dL (32-36); Mean Corpuscular Hgb 23.6 pg (27.0-32.0); Mean Corpuscular Volume 79.1 fL (81-99); Mean Platelet Vol. 10.1 fl (6.2-12.0); Monocyte# 0.31 X10^3/uL; Monocyte% 8.8 % (0-10); NRBC Flagged by Analyzer 0 % (0-5); Neutrophil # 0.92 X10^3/uL (2.7-7.7); POSITIVE DIFFERENTIAL YES; Platelet Count 206 K/mm3 (150-450); RBC Distribution Width CV 18.6 % (11.6-14.6); RBC Distribution Width SD 52.3 fl (35.1-43.9); Red Blood Count 4.45 M/mm3 (4.2-5.4); White Blood Count 3.5 K/mm3 (4.4-11.0)
[2023-02-16 05:56] LABS: Differential Indicated SCAN CRITERIA MET
[2023-02-16 06:00] VITALS: BP 128/80; PULSE 71; RESP 16; TEMP 36; O2SAT 99
[2023-02-16 06:04] LABS: Anion Gap 5 (5-15); BUN 10 mg/dL (7-18); BUN/Creat Ratio 8.9 RATIO (10-20); Calcium,Total 9.1 mg/dL (8.5-10.1); Chloride 108 mmol/L (98-107); Creatinine, Serum 1.12 mg/dL (0.55-1.02); EST Glomerular Filtration Rate 52 mL/min (>60); Est Glom Filt Rate - Afr Amer 63 mL/min (>60); Estimated Creatinine Clearance 48.13 ml/min; Glucose 91 mg/dL (74-106); Sodium Level 138 mmol/L (136-145)
[2023-02-16] MEDS: Gabapentin 300 MG Capsule PO (06:08)
[2023-02-16 06:31] LABS: Differential Comment SCANNED
[2023-02-16 09:06] VITALS: O2SAT 98
[2023-02-16 09:23] VITALS: BP 119/73; PULSE 73; RESP 16; TEMP 36.6; O2SAT 100
[2023-02-16] MEDS: Lidocaine 5% Patch 1 PATCH TOPICAL (09:32)
[2023-02-16] MEDS: Pantoprazole Sodium 40 MG Tablet PO (09:33)
[2023-02-16] MEDS: buPROPion (XL) 300 MG TABLET.XL PO (09:33)
[2023-02-16] MEDS: Thiamine Hydrochloride 100 MG Tablet PO (09:33)
[2023-02-16] MEDS: Cyanocobalamin 500 MCG Tablet 1000 MCG PO (09:33)
[2023-02-16] MEDS: Triamterene 37.5MG/Hctz 25MG Capsule 1 CAP PO (09:33)
[2023-02-16] MEDS: Multivitamins,Ther W-Minerals Tablet 1 TABLET PO (09:33)
[2023-02-16] MEDS: Folic Acid 1 MG Tablet PO (09:33)
[2023-02-16] MEDS: Ferrous Gluconate 324 MG Tablet PO (09:33)
[2023-02-16] MEDS: hydrOXYzine PAM 25 MG Capsule 50 MG PO (09:38)
[2023-02-16] MEDS: Acetaminophen 325 MG Tablet 650 MG PO (09:40)
[2023-02-16] MEDS: Dicyclomine 10 MG Capsule 20 MG PO (09:40)
--- NOTE | 2023-02-16 10:30 | CASEMGMT ---
CHINEDU ARZOLA NOTE: CHINEDU ARZOLA has attempted x 3 to complete IBARRA w/pt this morning but has been unsuccessful d/t either RN working w/pt @ bedside or pt had visitors and asked for CHINEDU ARZOLA to come back later. CHINEDU ARZOLA will attempt at a later time. Vega BREWSTERN CHINEDU ARZOLA
--- NOTE | 2023-02-16 10:56 | PCM.DC.SUM ---
Providers Date of Admission: 02/13/23 Date of Discharge: 02/16/23 Primary Care Physician: No Primary Care Phys Reason For Visit: SYNCOPE Diagnosis Discharge Diagnosis (1) Syncope: Status: Acute Code(s): R55 - Syncope and collapse Qualifiers: Syncope type: unspecified Qualified Code(s): R55 - Syncope and collapse (2) Hypertension: Status: Chronic Code(s): I10 - Essential (primary) hypertension (3) Anxiety and depression: Status: Acute Code(s): F41.9 - Anxiety disorder, unspecified; F32.9 - Major depressive disorder, single episode, unspecified (4) Insomnia: Status: Chronic Code(s): G47.00 - Insomnia, unspecified (5) Hx of bariatric surgery: Status: Acute Code(s): Z98.84 - Bariatric surgery status (6) Iron deficiency anemia following bariatric surgery: Status: Resolved Code(s): D50.9 - Iron deficiency anemia, unspecified Plan #syncope #Chronic microcytic anemia #Neutropenia #History of gastric bypass surgery #CKD stage IIIb #HTN #Chronic alcohol dependence #Insomnia #Tobacco dependence #Hypokalemia #Low B12 #Iron deficiency Medications at Discharge Home Medications temazepam 30 mg capsule 30 mg PO QHS 03/16/16 rollator walker with seat #1 ea 10/09/20 cyclobenzaprine 10 mg tablet 20 mg PO TID 10/24/20 cyanocobalamin (vitamin B-12) 1,000 mcg/mL injection solution 1,000 mcg IM Q30D #1 mL 12/20/20 diclofenac sodium 1 % topical gel 4 g topical .QID #100 grams 03/03/21 omeprazole 40 mg capsule,delayed release 40 mg PO DAILY #90 caps 03/03/21 syringe with needle 1 mL 25 gauge x 1 #100 ea 03/05/21 albuterol sulfate 90 mcg/actuation aerosol inhaler 2 puff inhalation Q4H PRN PRN SOB, wheezing #8.5 grams 04/16/21 plecanatide 3 mg tablet (Trulance) 3 mg DAILY 06/21/21 valacyclovir 500 mg tablet (Valtrex) 500 mg PO DAILY Herpes Flare #90 tabs 10/28/21 ergocalciferol (vitamin D2) 1,250 mcg (50,000 unit) capsule 50,000 unit PO Q2W 11/26/21 bupropion HCl 300 mg 24 hr tablet, extended release 300 mg PO QAM #60 tabs 02/16/23 cyanocobalamin (vitamin B-12) 500 mcg tablet 1,000 mcg (2 x 500 mcg) PO BREAKFAST 30 days #60 tabs 02/16/23 ferrous gluconate 324 mg (37.5 mg iron) tablet 324 mg PO BIDCM 30 days #60 tabs 02/16/23 lidocaine 5 % topical patch 1 patch topical DAILY 14 days #14 ea 02/16/23 triamterene 37.5 mg-hydrochlorothiazide 25 mg capsule 1 cap PO DAILY 30 days #90 caps 02/16/23 Hospital Course Summary of Care Provided Minutes Spent on Discharge: 40 Hospital Course: The patient is a 63 y/o F w/ PMHx: Chronic Leukopenia, Tobacco use, gastric bypass, Chronic microcytic anemia/Fe Deficiency anemia, HTN, CKD stage III unclear subtype, HTN, HLD, ADHD/Insomnia/Anxiety and Depression, Tobacco use, EtOH abuse (currently notes ~ 4 tall boys daily, heavier prior, started drinking again to sleep and for pain control) who presented to [facility] emergency department 02/13/2023 after reportedly watching TV with her family and upon attempting to get up and use the restroom she had a episode of loss of consciousness with fall which prompted family to go assess her and reportedly she was already awake with no significant complaints but given she hit her head when she fell family brought her to the ED. She reportedly was recently seen in mental health symptoms done in January twice and reportedly had CTA chest/abdomen/pelvis and lab assessment and stool guaiac which were negative at the time. There is question of echo in the last 1 to 2 weeks with valvular heart disease but this was not available in our system and repeat was ordered. Patient had no arrhythmia on telemetry that explain loss of consciousness and orthostats were negative multiple times though she still would report generalized weakness and dizziness and had multiple somatic complaints. CT head when she came in negative, echocardiogram with EF 65% with mild diffuse mitral valve thickening and mild aortic insufficiency. Labs during her admission indicated anemia that was stable with no blood per rectum, leukopenia which has been intermittent and chronic, iron panel with iron sat 6.1, ferritin of 9 and iron 23 with B12 of 199. She is started on supplementation. Patient felt better overall than she had on admission but continued to have multiple somatic complaints with no clear underlying etiology, suspect some of her fatigue and feeling generally unwell is due to low iron and B12 and she was started on replacement for this it appears in her chart she has had this in the past as well given her history of gastric bypass. Patient has no further acute needs for inpatient hospitalization. We discussed that further work-up and management of her fatigue and insomnia could be pursued via primary care physician and did not necessitate further inpatient hospital stay. Patient verbalized her understanding and willingness for discharge. Patient provided with PCP list so she can establish. Discharge instructions as followed: -You have indicated that do not presently have a primary care physician so a prescription for your triamterene hydrochlorothiazide (blood pressure medicine) and Wellbutrin/bupropion have been sent to your preferred pharmacy on file. -You will be provided with a list of primary care physicians, advised to call upon discharge to schedule an establish care appointment for continuity of care and for further work-up for your fatigue -A B12 supplement will be sent into your pharmacy, this can also be obtained [id number] at a pharmacy as you were low on B12, this may help with your energy -An iron supplement will also be sent in to preferred pharmacy on file due to your iron being well, taking supplementation over time also help you feel better. This can at times cause constipation, would advise taking MiraLAX daily to maintain regular bowel movements if you experience any constipation -A prescription for lidocaine patch will also be sent to your pharmacy to help with your shoulder pain -You will be discharged with instructions for a 30-day heart monitor to evaluate for any underlying abnormal heart rhythms due to your episode of passing out -A prescription for vestibular rehab outpatient will be given to you as some of your dizzy feeling and balance may be due to your inner ear -Please change positions slowly from lying to standing. When getting out of bed sit on the side of the bed with her legs down for at least 30 seconds before standing. This gives her body time to adjust to the position change. Would also recommend using compression stockings, you can acquire these online or you can discuss with your primary care physician. There are varying strengths and if you are unable to tolerate high strength compression you can try one of the lower strength -It is strongly advised to refrain from alcohol or cannabis use as this likely contributes to imbalance and not feeling well -Please call your primary care provider's office upon discharge to schedule a hospital follow up within 1 week. -For any concerning signs or symptoms please call 911 or proceed to the nearest emergency department Physical Exam Narrative General: Alert, oriented, no apparent distress HEENT: Atraumatic, normocephalic Eyes: Anicteric, normal conjunctiva, extraocular movements grossly intact Neck: Supple Respiratory: Clear to auscultation bilaterally, normal respiratory effort Cardiovascular: Regular rate and rhythm GI: Soft, nontender, nondistended Extremities: No edema Musculoskeletal: Moving all extremities Neuro: No overt focal neurological deficits Skin: No rashes appreciated Psych: Cooperative Weight / BMI Weight Weight: 77.9 kg Body Mass Index (BMI) 27.7 ABG / Lab / Microbiology Data 02/16/23 05:08 02/16/23 05:08 Laboratory: Laboratory Results - last 24 hr 02/16/23 05:08: WBC 3.5 L, RBC 4.45, Hgb 10.5 L, Hct 35.2 L, MCV 79.1 L, MCH 23.6 L, MCHC 29.8 L D, RDW Std Deviation 52.3 H, RDW Coeff of Adelia 18.6 H, Plt Count 206, MPV 10.1, Immature Gran % (Auto) 0.300, Neut % (Auto) 26.0 L, Lymph % (Auto) 60.1 H, [place] % (Auto) 8.8, Eos % (Auto) 4.0, Baso % (Auto) 0.8, Absolute Neuts (auto) 0.9 L, Absolute Lymphs (auto) 2.12, Nucleated RBC % 0, Differential Comment SCANNED, Sodium 138, Potassium 4.0, Chloride 108 H, Carbon Dioxide 25.0, Anion Gap 5, BUN 10, Creatinine 1.12 H, Estim Creat Clear Calc 48.13, Est GFR (MDRD) Af Amer 63, Est GFR (MDRD) Non-Af 52 L, BUN/Creatinine Ratio 8.9 L, Glucose 91, Calcium 9.1 Radiography Diagnostic Testing: Radiology Impression Echocardiogram 02/13/23 22:35 Interpretation Summary The left ventricular ejection fraction is 65 %. Mild diffuse mitral valve thickening. Mild (1+) aortic valve insufficiency. Ordering Physician: Jeniffer Campos Performed By: Eve Painter RDCS D/C Instructions Discharge Diet: No restrictions Meaningful Use Info Meaningful Use Diagnoses (Choose all that apply): None applicable Discharge Plan Admission Admit Date/Time: 02/13/23 20:47 Primary Reason for Your Visit: Dizziness and weakness Attending Provider: Virginie Aguillon Primary Care Provider: Care Physician,No Primary Consulting Providers: Jeniffer Campos; Drew Solis Instructions Patient Instructions: ED Fall Prevention Additional Instructions / Restrictions: DISCHARGE INSTRUCTIONS PLEASE READ *Please take this with you to your next doctors appointment* -You have indicated that do not presently have a primary care physician so a prescription for your triamterene hydrochlorothiazide (blood pressure medicine) and Wellbutrin/bupropion have been sent to your preferred pharmacy on file. -You will be provided with a list of primary care physicians, advised to call upon discharge to schedule an establish care appointment for continuity of care and for further work-up for your fatigue -A B12 supplement will be sent into your pharmacy, this can also be obtained [id number] at a pharmacy as you were low on B12, this may help with your energy -An iron supplement will also be sent in to preferred pharmacy on file due to your iron being well, taking supplementation over time also help you feel better. This can at times cause constipation, would advise taking MiraLAX daily to maintain regular bowel movements if you experience any constipation -A prescription for lidocaine patch will also be sent to your pharmacy to help with your shoulder pain -You will be discharged with instructions for a 30-day heart monitor to evaluate for any underlying abnormal heart rhythms due to your episode of passing out -A prescription for vestibular rehab outpatient will be given to you as some of your dizzy feeling and balance may be due to your inner ear -Please change positions slowly from lying to standing. When getting out of bed sit on the side of the bed with her legs down for at least 30 seconds before standing. This gives her body time to adjust to the position change. Would also recommend using compression stockings, you can acquire these online or you can discuss with your primary care physician. There are varying strengths and if you are unable to tolerate high strength compression you can try one of the lower strength -It is strongly advised to refrain from alcohol or cannabis use as this likely contributes to imbalance and not feeling well -Please call your primary care provider's office upon discharge to schedule a hospital follow up within 1 week. -For any concerning signs or symptoms please call 911 or proceed to the nearest emergency department Discharge Orders/Prescriptions Prescriptions: New lidocaine 5 % Adhesive Patch,Medicated 1 patch topical DAILY 14 Days Qty: 14 0RF Protocol: *Topical Application Instructions APPLICATION INSTRUCTIONS: Apply to painful areas ferrous gluconate 324 mg (37.5 mg iron) Tablet 324 mg PO BIDCM 30 Days Qty: 60 0RF cyanocobalamin (vitamin B-12) 500 mcg Tablet 1,000 mcg PO BREAKFAST 30 Days Qty: 60 0RF Continued (DME) syringe with needle 1 mL 25 gauge x 1 syringe See Rx Instructions .ROUTE .MEDSUPPLY Qty: 100 Rx Instructions: As directed ergocalciferol (vitamin D2) 1,250 mcg (50,000 unit) capsule 50,000 unit PO Q2W temazepam 30 MG capsule 30 mg PO QHS Patient Comments: SLEEP cyclobenzaprine 10 mg tablet 20 mg PO TID Patient Comments: leg spasm Trulance 3 mg tablet 3 mg DAILY triamterene-hydrochlorothiazid 37.5-25 mg capsule 1 cap PO DAILY 30 Days Qty: 90 1RF bupropion HCl 300 mg tablet extended release 24 hr 300 mg PO QAM Qty: 60 1RF (DME) rollator walker with seat See Rx Instructions .Route .MEDSUPPLY Qty: 1 0RF Rx Instructions: As directed cyanocobalamin (vitamin B-12) 1,000 mcg/mL solution 1,000 mcg IM Q30D Qty: 1 2RF diclofenac sodium 1 % gel 4 g TOPICAL .QID Qty: 100 1RF Rx Instructions: apply to single knee, ankle, foot; for foot includes sole/toes/top of foot omeprazole 40 mg capsule,delayed release(DR/EC) 40 mg PO DAILY Qty: 90 1RF albuterol sulfate 90 mcg/actuation HFA aerosol inhaler 2 puff INHALATION Q4H PRN PRN (Reason: SOB, wheezing) Qty: 8.5 1RF Patient Comments: BREATHING valacyclovir [Valtrex] 500 mg tablet 500 mg PO DAILY Qty: 90 1RF Discontinued medical marijauna PO Other Ambulatory Orders: 30 Day Event Recorder Preventi (Urgent) Timeframe: 1 Day Facility: [facility] - Location: Cardiovascular Services Ordered By: Dr. Virginie Aguillon Referrals / Follow Up: Care Physician,No Primary [Primary Care Provider] - ( -If you do not have a primary care physician of list of local primary care physicians can be provided for you upon discharge. Please ask for this list prior to discharge) Disposition Disposition (needs filled in before D/C Order can be placed): Home, Self Care Charges/Coding Visit Charges Inpatient E&M: 47908 Disch Hosp >30min
--- NOTE | 2023-02-16 11:25 | CASEMGMT ---
CHINEDU ARZOLA updated by hospitalist that patient would like PCP list and would benefit from vestibular therapy. Script received. CHINEDU ARZOLA in to discuss plans at discharge. CHINEDU ARZOLA reviewed PCP list with patient and provided script with [facility] information. Patient wishes to schedule therapy on her home. Patient denied further needs or concerns at this time.
--- NOTE | 2023-02-16 11:41 | CASEMGMT ---
CHINEDU ARZOLA NOTE: Intro role of CM to patient and IBARRA form explained re: Observation status for treatment of syncope.? Explained hospitalization will be paid per her insurance policy for Outpatient billing?and condition will continue to be evaluated for Inpt necessity. Also let pt know that [facility] sends paper in the billing packet with their phone number if questions arise. Pt verbalizes understanding and does not have further questions. ?Form signed, copy made and placed in chart, and original given to pt. Vega CHOPRA RN CM
== END 2023-02-16 10:56 | disposition home or self-care (01) ==
LOC: ED 20:27 → PCU 21:04
PROVIDERS: Internal Medicine; Admitting Provider Family Medicine; Emergency Provider Emergency Medicine; Visit Provider Internal Medicine
DX: R55 Syncope and collapse (principal); N18.32 Chronic kidney disease, stage 3b; D50.9 Iron deficiency anemia, unspecified; W19.XXXA Unspecified fall, initial encounter; G89.29 Other chronic pain; F41.9 Anxiety disorder, unspecified; F10.10 Alcohol abuse, uncomplicated; E78.5 Hyperlipidemia, unspecified; I08.3 Combined rheumatic disorders of mitral, aortic and tricuspid valves; F32.9 Major depressive disorder, single episode, unspecified; S09.90XA Unspecified injury of head, initial encounter; I12.9 Hypertensive chronic kidney disease with stage 1 through stage 4 chronic kidney disease, or unspecified chronic kidney disease; F17.210 Nicotine dependence, cigarettes, uncomplicated; F90.9 Attention-deficit hyperactivity disorder, unspecified type; G47.00 Insomnia, unspecified; E87.6 Hypokalemia; Z98.84 Bariatric surgery status; Z79.899 Other long term (current) drug therapy; Y93.01 Activity, walking, marching and hiking; Y92.9 Unspecified place or not applicable
CPT/HCPCS: 36415; 70450; 71045; 73030; 80048; 80053; 80061; 80307; 82077; 82607; 82728; 82746; 83540; 83550; 83735; 84100; 84132; 84443; 84484; 85025; 93005; 93306; 96361; 96374; 99221; 99285; J7030; A4216; G0378; J2405

== ENCOUNTER 2023-03-23 16:25 | Emergency (ER) | payer MEDICARE, MEDICAID, SELFPAY ==
[2023-03-23 16:26] VITALS: BP 161/94; PULSE 89; RESP 14; TEMP 36.6; O2SAT 100; BMI 26.0
--- NOTE | 2023-03-23 17:09 | ED.VIS.GI ---
HPI HPI - GI History of Present Illness Chief Complaint: Abd Pain Narrative Narrative: 63-year-old female presenting with left-sided abdominal pain. She states he has had this for years. She states that it radiates from the epigastric region to the left upper quadrant. She arrives with a big open her hand. She apparently was at [facility] and her symptoms worsened. Patient states I cannot take it anymore. States she was recently admitted to the hospital for this and never followed up with anybody as an outpatient. She said her last PCP was at [facility]. Denies fever or chills. Denies constipation or diarrhea. Denies nausea or vomiting. Patient states she was put on some pills last time she was discharged. She does not know what they are and what they were for. At this point she states read my chart I do not want to talk anymore. PFSH PFSH Medical History ADHD (attention deficit hyperactivity disorder) Anemia Anxiety and depression B12 deficiency Chronic pain ETOH abuse Fall History of GI bleed Hypertension Insomnia Iron (Fe) deficiency anemia PUD (peptic ulcer disease) Syncope TMJ (temporomandibular joint syndrome) Tobacco use Home Medications temazepam 30 mg capsule 30 mg PO QHS 03/16/16 [History Last Taken 03/15/16] rollator walker with seat #1 ea 10/09/20 [Rx Last Taken Unknown] cyclobenzaprine 10 mg tablet 20 mg PO TID 10/24/20 [History Last Taken Unknown] cyanocobalamin (vitamin B-12) 1,000 mcg/mL injection solution 1,000 mcg IM Q30D #1 mL 12/20/20 [Rx Last Taken Unknown] diclofenac sodium 1 % topical gel 4 g topical .QID #100 grams 03/03/21 [Rx Last Taken Unknown] omeprazole 40 mg capsule,delayed release 40 mg PO DAILY #90 caps 03/03/21 [Rx Last Taken Unknown] syringe with needle 1 mL 25 gauge x 1 #100 ea 03/05/21 [History Last Taken Unknown] albuterol sulfate 90 mcg/actuation aerosol inhaler 2 puff inhalation Q4H PRN PRN SOB, wheezing #8.5 grams 04/16/21 [Rx Last Taken Unknown] plecanatide 3 mg tablet (Trulance) 3 mg DAILY 06/21/21 [History Last Taken Unknown] valacyclovir 500 mg tablet (Valtrex) 500 mg PO DAILY Herpes Flare #90 tabs 10/28/21 [Rx Last Taken Unknown] ergocalciferol (vitamin D2) 1,250 mcg (50,000 unit) capsule 50,000 unit PO Q2W 11/26/21 [History Last Taken Unknown] bupropion HCl 300 mg 24 hr tablet, extended release 300 mg PO QAM #60 tabs 02/16/23 [Rx Last Taken Unknown] cyanocobalamin (vitamin B-12) 500 mcg tablet 1,000 mcg (2 x 500 mcg) PO BREAKFAST 30 days #60 tabs 02/16/23 [Rx Last Taken Unknown] ferrous gluconate 324 mg (37.5 mg iron) tablet 324 mg PO BIDCM 30 days #60 tabs 02/16/23 [Rx Last Taken Unknown] lidocaine 5 % topical patch 1 patch topical DAILY 14 days #14 ea 02/16/23 [Rx Last Taken Unknown] triamterene 37.5 mg-hydrochlorothiazide 25 mg capsule 1 cap PO DAILY 30 days #90 caps 02/16/23 [Rx Last Taken Unknown] Allergy/AdvReac Type Severity Reaction Status Date / Time buprenorphine [From [facility]] Allergy Rash Verified 03/23/23 16:26 NSAIDS (Non-Steroidal AdvReac Nausea Verified 03/23/23 16:26 Anti-Inflamma Family History Father Myocardial infarction Alcohol abuse Mother CVA (cerebral vascular accident) Hypertension Thrombosis Alcohol abuse Sister Lupus Surgical History H/O gastric bypass Hx of bariatric surgery S/P Social History household members: other details: grandson housing: house current occupational status: retired and disabled history of recent travel: No Smoking Status: Light Smoker (<10/day) Smokeless tobacco user: other alcohol intake: current alcohol intake frequency: 3 or more drinks per day details: Patient reports history of at 2-tall boys daily at least. substance use type: does not use what type of physical activity do you participate in: none and walking seatbelt use: always do you feel safe at home: Yes additional social history: single ROS ROS ED Constitutional Constitutional ED: Denies chills, fever(s) or sweats Eyes Eyes: Denies blurry vision or change in vision ENT ENT ED: Denies ear pain or sore throat Cardiovascular Cardiovascular: Denies chest pain, palpitations or racing heartbeat Respiratory/Chest Respiratory/Chest: Denies cough, dyspnea or sputum Gastrointestinal Gastrointestinal: Reports abdominal pain; Denies constipation, diarrhea, nausea or vomiting Genitourinary Genitourinary ED: Denies dysuria, hematuria or urinary frequency Musculoskeletal Musculoskeletal: Denies arthralgias, myalgias or neck pain Integumentary Denies abscess, Abrasions or rash Neurologic Neurologic: Denies headache(s), paresthesias or weakness Psychiatric Psychiatric: Denies anxiety, depression, suicidal ideation or suicidal thoughts Endocrine Endocrinology: Denies polydipsia or polyuria EXAM Physical Exam Const Vital Signs: 03/23/23 16:26 03/23/23 18:25 03/23/23 20:29 Temperature 98 F 98.1 F Temperature Source Temporal Temporal Pulse Rate 89 71 Respiratory Rate 14 18 Blood Pressure 161/94 H 139/92 H 139/94 H Blood Pressure Mean 116 107 109 Pulse Ox 100 100 98 Oxygen Delivery Method Room Air Room Air 03/23/23 21:05 Temperature Temperature Source Pulse Rate 70 Respiratory Rate 16 Blood Pressure 133/87 H Blood Pressure Mean 102 Pulse Ox 100 Oxygen Delivery Method Room Air Positive well nourished General Appearance ED: NAD; Negative for pallor HEENT Reports moist mucous membranes normocephalic and atraumatic Eyes PERRL Resp normal respiratory effort and clear to auscultation bilaterally Auscultation: Negative for rales, rhonchi or wheezes Cardio regular rate and regular rhythm GI Palpation: tender epigastric and LLQ Extremity full ROM Neuro CN's II-XII intact bilaterally, moves all extremities and no sensory deficits noted Sensorium / Orientation: alert Psych mental status grossly normal and thought process normal Skin no wounds General Skin Exam: Negative for jaundice or pallor MDM MDM MDM Narrative Medical decision making narrative: Patient presenting with left-sided abdominal pain and epigastric pain. She states that she did have this problem for years. She states it got worse when she was at [employer] today and she presents while drinking a polar pop. No apparent nausea or vomiting. No constipation or diarrhea. She states I cannot take it anymore. Differential includes gastritis, pancreatitis, colitis, diverticulitis, UTI, pyelonephritis. CBC was obtained to assess white blood cell count, hemoglobin, platelets. CMP to assess liver function, renal function, electrolytes. Lipase to assess for pancreatitis. Urinalysis to assess for UTI. Patient was given morphine and Zofran. Ultimately her work-up was normal and all of her labs were unremarkable. I do not believe the patient needs a CT scan. Her vital signs are stable and she is afebrile. I went back to discussed with the patient the fact that her blood work was normal and she states there must be something wrong. I told her that she would need GI follow-up most likely in whoever did her gastric bypass surgery should probably be involved with her care since she had this pain for years. Of note she did finish her 64 ounce polar pop while she was in the ER. Impression: 1. Abdominal pain Lab Data Attestation: I reviewed the patient's lab results. Labs: Laboratory Results - last 24 hr 03/23/23 03/23/23 17:40 20:23 WBC 4.6 RBC 4.77 Hgb 11.5 L Hct 37.1 MCV 77.8 L MCH 24.1 L MCHC 31.0 L RDW Std Deviation 56.7 H RDW Coeff of Adelia 20.6 H Plt Count 225 MPV 9.1 Immature Gran % (Auto) 0.000 Neut % (Auto) 37.9 L Lymph % (Auto) 51.0 H Mccurtain % (Auto) 8.7 Eos % (Auto) 2.0 Baso % (Auto) 0.4 Absolute Neuts (auto) 1.8 L Absolute Lymphs (auto) 2.35 Nucleated RBC % 0 Differential Comment Sodium 140 Potassium 4.0 Chloride 109 H Carbon Dioxide 24.0 Anion Gap 7 BUN 18 Creatinine 1.06 H Estim Creat Clear Calc 50.85 Est GFR (MDRD) Af Amer 67 Est GFR (MDRD) Non-Af 56 L BUN/Creatinine Ratio 17.0 Glucose 85 Calcium 9.1 Total Bilirubin 0.20 AST 17 ALT 22 Alkaline Phosphatase 92 Total Protein 6.7 Albumin 3.2 Globulin 3.5 Albumin/Globulin Ratio 0.9 Lipase 38 Urine Color Yellow Urine Clarity Clear Urine pH 6.0 Ur Specific Woodman 1.020 Urine Protein 30 H Urine Glucose (UA) Normal Urine Ketones 15 H Urine Occult Blood 10 H Urine Nitrite Negative Urine Bilirubin Negative Urine Urobilinogen 1 H Ur Leukocyte Esterase 25 H Urine RBC 0-5 SEEN Urine WBC 0-5 SEEN Ur Squamous Epith Cells 0-5 SEEN Amorphous Sediment 1+ URATE Urine Bacteria 0 SEEN Urine Mucus 0 SEEN Discharge Plan Triage Chief Complaint: Abd Pain ED Provider: Blaise Tom Dx/Rx/DC Orders Instructions: ED Abdominal Pain Unkn Cause Fem Prescriptions: No Action (DME) syringe with needle 1 mL 25 gauge x 1 syringe See Rx Instructions .ROUTE .MEDSUPPLY Qty: 100 Rx Instructions: As directed ergocalciferol (vitamin D2) 1,250 mcg (50,000 unit) capsule 50,000 unit PO Q2W temazepam 30 MG capsule 30 mg PO QHS Patient Comments: SLEEP cyclobenzaprine 10 mg tablet 20 mg PO TID Patient Comments: leg spasm Trulance 3 mg tablet 3 mg DAILY lidocaine 5 % Adhesive Patch,Medicated 1 patch topical DAILY 14 Days Qty: 14 0RF Protocol: *Topical Application Instructions APPLICATION INSTRUCTIONS: Apply to painful areas ferrous gluconate 324 mg (37.5 mg iron) Tablet 324 mg PO BIDCM 30 Days Qty: 60 0RF cyanocobalamin (vitamin B-12) 500 mcg Tablet 1,000 mcg PO BREAKFAST 30 Days Qty: 60 0RF triamterene-hydrochlorothiazid 37.5-25 mg capsule 1 cap PO DAILY 30 Days Qty: 90 1RF bupropion HCl 300 mg tablet extended release 24 hr 300 mg PO QAM Qty: 60 1RF (DME) rollator walker with seat See Rx Instructions .Route .MEDSUPPLY Qty: 1 0RF Rx Instructions: As directed cyanocobalamin (vitamin B-12) 1,000 mcg/mL solution 1,000 mcg IM Q30D Qty: 1 2RF diclofenac sodium 1 % gel 4 g TOPICAL .QID Qty: 100 1RF Rx Instructions: apply to single knee, ankle, foot; for foot includes sole/toes/top of foot omeprazole 40 mg capsule,delayed release(DR/EC) 40 mg PO DAILY Qty: 90 1RF albuterol sulfate 90 mcg/actuation HFA aerosol inhaler 2 puff INHALATION Q4H PRN PRN (Reason: SOB, wheezing) Qty: 8.5 1RF Patient Comments: BREATHING valacyclovir [Valtrex] 500 mg tablet 500 mg PO DAILY Qty: 90 1RF Primary Care Provider: Care Physician,No Primary Referrals: Lisa Valiente DO [Med Staff - Active Staff] - 3-5 Days Sami Hansen DO [Med Staff - Active Staff] - As soon as possible Care Physician,No Primary [Primary Care Provider] - Disposition Disposition: Home, Self Care
[2023-03-23] MEDS: Ondansetron 4 MG/2 ML Vial IV (17:12)
[2023-03-23] MEDS: Morphine 4 MG/ML Syringe IV (17:12)
[2023-03-23 17:52] LABS: Absolute Lymphocyte Count 2.35 X10^3/uL (0.83-4.51); Absolute Neutrophil Count 1.8 X10^3/uL (2.0-7.7); Basophil# 0.02 X10^3/uL; Basophil% 0.4 % (0-1); Eosinophil# 0.09 X10^3/uL; Hematocrit 37.1 % (37-47); Hemoglobin 11.5 g/dL (12.0-15.0); Lymphocyte # 2.35 X10^3/ul (0.83-4.51); Mean Corpuscular Hgb 24.1 pg (27.0-32.0); Mean Corpuscular Volume 77.8 fL (81-99); Mean Platelet Vol. 9.1 fl (6.2-12.0); Monocyte% 8.7 % (0-10); NRBC Flagged by Analyzer 0 % (0-5); Neutrophil # 1.75 X10^3/uL (2.7-7.7); Neutrophil % 37.9 % (47-70); POSITIVE MORPHOLOGY YES; Platelet Count 225 K/mm3 (150-450); RBC Distribution Width CV 20.6 % (11.6-14.6); RBC Distribution Width SD 56.7 fl (35.1-43.9); Red Blood Count 4.77 M/mm3 (4.2-5.4); White Blood Count 4.6 K/mm3 (4.4-11.0)
[2023-03-23 18:04] LABS: Differential Indicated SCAN CRITERIA MET
[2023-03-23 18:25] VITALS: BP 139/92; PULSE 71; RESP 18; TEMP 36.7; O2SAT 100
[2023-03-23 18:42] LABS: ALB/GLOB Ratio 0.9 RATIO (0.9-2.4); AST(SGOT) 17 U/L (15-37); Alanine Aminotransfer ALT/SGPT 22 U/L (13-56); Albumin, Serum 3.2 g/dL (3.2-5.0); Alkaline Phosphatase 92 U/L (45-117); Anion Gap 7 (5-15); BUN 18 mg/dL (7-18); Calcium,Total 9.1 mg/dL (8.5-10.1); Chloride 109 mmol/L (98-107); Creatinine, Serum 1.06 mg/dL (0.55-1.02); EST Glomerular Filtration Rate 56 mL/min (>60); Est Glom Filt Rate - Afr Amer 67 mL/min (>60); Estimated Creatinine Clearance 50.85 ml/min; Globulin 3.5 g/dL (2.2-4.2); Glucose 85 mg/dL (74-106); Lipase 38 U/L (13-75); Protein, Total 6.7 g/dL (6.4-8.2); Sodium Level 140 mmol/L (136-145)
[2023-03-23 20:28] LABS: Bacteria 0 SEEN /hpf (None Seen); Mucous, Urine 0 SEEN /hpf (<or=2+)
[2023-03-23 20:29] VITALS: BP 139/94; O2SAT 98
[2023-03-23 20:30] LABS: Color, Urine Yellow (Yellow); Glucose, Dipstick Normal (Normal); Ketone-Dipstick 15 mg/dl (Negative); Leukocyte Esterase-Dipstick 25 /ul (Negative); Nitrite-Dipstick Negative (Negative); Occult Blood-Urine 10 /ul (Negative); Protein-Dipstick 30 mg/dl (Negative); Urine Bilirubin Dipstick Negative (Negative); Urine Clarity Clear (Clear); Urine Urobilinogen 1 mg/dl (Normal)
[2023-03-23 20:41] LABS: Amorphous Sediment 1+ URATE; Red Blood Cells-Urine 0-5 SEEN /hpf (0-5); Squamous Epithelial Cells - UA 0-5 SEEN /hpf (5-10); White Blood Cells 0-5 SEEN /hpf (0-5)
[2023-03-23 21:05] VITALS: BP 133/87; PULSE 70; RESP 16; O2SAT 100
== END 2023-03-23 21:19 | disposition home or self-care (01) ==
PROVIDERS: Emergency Provider Student in an Organized Health Care Education/Training Program; Visit Provider Student in an Organized Health Care Education/Training Program
DX: R10.12 Left upper quadrant pain (principal); R10.13 Epigastric pain; G89.29 Other chronic pain; I10 Essential (primary) hypertension; F17.200 Nicotine dependence, unspecified, uncomplicated; Z79.899 Other long term (current) drug therapy; Z98.84 Bariatric surgery status
CPT/HCPCS: 80053; 81001; 83690; 85025; 93005; 96374; 96375; 99283; J7030; A4216; J2405

== ENCOUNTER 2023-11-16 13:37 | Emergency (ER) | payer MEDICARE, MEDICAID, SELFPAY ==
[2023-11-16] VITALS (12 sets, daily range): BP systolic 106–154; BP diastolic 74–92; PULSE 60–103; RESP 16–22; TEMP 36.6; O2SAT 96–100; BMI 24.2
--- NOTE | 2023-11-16 14:14 | EKG12_ITS ---
Test Reason : CP Blood Pressure : / mmHG Vent. Rate : 089 BPM Atrial Rate : 089 BPM P-R Int : 146 ms QRS Dur : 064 ms QT Int : 372 ms P-R-T Axes : 066 003 059 degrees QTc Int : 452 ms Normal sinus rhythm Possible Left atrial enlargement Borderline ECG Confirmed by DORIS WOO, FADUMO ([id number]), newspaper or periodical editor ENZO STANFORD ([id number]) on 11/17/2023 9:18:27 AM Referred By: GURPREET/MOSHE Confirmed By:FADUMO GEORGE MD
--- NOTE | 2023-11-16 14:14 | EX.ED.DYSGE1 ---
HPI History of Present Illness Chief Complaint: Chest Pain Informant: patient Narrative Narrative: Presenting worsening dyspnea intermittent left-sided chest pain for the last 4 days. Reports been having it for a while. Recent cough none currently. No fevers. No radicular pain. States has tingling in her hands and feet. Denies diabetes history. Denies any cardiac history. Denies asthma or COPD. Denies recent travel or surgeries. States symptoms worsen when she gets up and walks around. No history of PE or DVT. She states approximate 4 months ago was admitted to [facility] for syncope. She had a Holter monitor sent to her home, and does not know results. Patient that she does not ambulate with any assistance. She drove here for evaluation. Prior similar symptoms: Yes PFSH PFSH Medical History ADHD (attention deficit hyperactivity disorder) Anemia Anxiety and depression B12 deficiency Chronic pain ETOH abuse Fall History of GI bleed Hypertension Insomnia Iron (Fe) deficiency anemia PUD (peptic ulcer disease) Syncope TMJ (temporomandibular joint syndrome) Tobacco use Home Medications temazepam 30 mg capsule 30 mg PO QHS 03/16/16 [History Last Taken 03/15/16] rollator walker with seat #1 ea 10/09/20 [Rx Last Taken Unknown] cyclobenzaprine 10 mg tablet 20 mg PO TID 10/24/20 [History Last Taken Unknown] cyanocobalamin (vitamin B-12) 1,000 mcg/mL injection solution 1,000 mcg IM Q30D #1 mL 12/20/20 [Rx Last Taken Unknown] diclofenac sodium 1 % topical gel 4 g topical .QID #100 grams 03/03/21 [Rx Last Taken Unknown] omeprazole 40 mg capsule,delayed release 40 mg PO DAILY #90 caps 03/03/21 [Rx Last Taken Unknown] syringe with needle 1 mL 25 gauge x 1 #100 ea 03/05/21 [History Last Taken Unknown] albuterol sulfate 90 mcg/actuation aerosol inhaler 2 puff inhalation Q4H PRN PRN SOB, wheezing #8.5 grams 04/16/21 [Rx Last Taken Unknown] plecanatide 3 mg tablet (Trulance) 3 mg DAILY 06/21/21 [History Last Taken Unknown] valacyclovir 500 mg tablet (Valtrex) 500 mg PO DAILY Herpes Flare #90 tabs 10/28/21 [Rx Last Taken Unknown] ergocalciferol (vitamin D2) 1,250 mcg (50,000 unit) capsule 50,000 unit PO Q2W 11/26/21 [History Last Taken Unknown] bupropion HCl 300 mg 24 hr tablet, extended release 300 mg PO QAM #60 tabs 02/16/23 [Rx Last Taken Unknown] cyanocobalamin (vitamin B-12) 500 mcg tablet 1,000 mcg (2 x 500 mcg) PO BREAKFAST 30 days #60 tabs 02/16/23 [Rx Last Taken Unknown] ferrous gluconate 324 mg (37.5 mg iron) tablet 324 mg PO BIDCM 30 days #60 tabs 02/16/23 [Rx Last Taken Unknown] lidocaine 5 % topical patch 1 patch topical DAILY 14 days #14 ea 02/16/23 [Rx Last Taken Unknown] triamterene 37.5 mg-hydrochlorothiazide 25 mg capsule 1 cap PO DAILY 30 days #90 caps 02/16/23 [Rx Last Taken Unknown] Allergy/AdvReac Type Severity Reaction Status Date / Time bup[facility]ine [From [facility]] Allergy Rash Verified 11/16/23 13:39 NSAIDS (Non-Steroidal AdvReac Nausea Verified 11/16/23 13:39 Anti-Inflamma Family History Father Myocardial infarction Alcohol abuse Mother CVA (cerebral vascular accident) Hypertension Thrombosis Alcohol abuse Sister Lupus Surgical History H/O gastric bypass Hx of bariatric surgery S/P Social History household members: other details: grandson housing: house current occupational status: retired and disabled history of recent travel: No Smoking Status: Former smoker Smokeless tobacco user: other alcohol intake: current alcohol intake frequency: 3 or more drinks per day details: Patient reports history of at 2-tall boys daily at least. substance use type: does not use what type of physical activity do you participate in: none and walking seatbelt use: always do you feel safe at home: Yes additional social history: single ROS ROS ED Constitutional Constitutional ED: Denies chills, fever(s) or sweats Eyes Eyes: Denies change in vision ENT ENT ED: Denies dysphagia or sore throat Cardiovascular Cardiovascular: Reports chest pain; Denies leg edema, palpitations or racing heartbeat Respiratory/Chest Respiratory/Chest: Reports cough and dyspnea on exertion; Denies dyspnea Gastrointestinal Gastrointestinal: Denies abdominal pain, diarrhea, nausea or vomiting Genitourinary Genitourinary ED: Denies dysuria, hematuria or urinary frequency Musculoskeletal Musculoskeletal: Denies back pain, extremity pain or neck pain Integumentary Denies rash or wounds Neurologic Neurologic: Denies headache(s), paresthesias or weakness EXAM Physical Exam Const Vital Signs: 11/16/23 13:37 11/16/23 14:37 11/16/23 15:00 Temperature 97.8 F Temperature Source Temporal Pulse Rate 103 H 83 80 Respiratory Rate 16 22 H 18 Blood Pressure 154/92 H 129/80 H 126/74 H Blood Pressure Mean 112 96 91 Pulse Ox 100 98 98 Oxygen Delivery Method Room Air Room Air Room Air 11/16/23 16:02 11/16/23 16:30 11/16/23 17:00 Temperature Temperature Source Pulse Rate 76 83 73 Respiratory Rate 16 19 H 17 Blood Pressure 129/84 H 126/85 H Blood Pressure Mean 99 99 Pulse Ox 97 Oxygen Delivery Method 11/16/23 17:01 11/16/23 17:15 11/16/23 17:16 Temperature Temperature Source Pulse Rate 73 79 78 Respiratory Rate 20 H 17 19 H Blood Pressure 134/78 H 106/78 Blood Pressure Mean 91 89 Pulse Ox 100 99 98 Oxygen Delivery Method 11/16/23 18:00 Temperature Temperature Source Pulse Rate 60 Respiratory Rate 16 Blood Pressure 117/75 Blood Pressure Mean 89 Pulse Ox 99 Oxygen Delivery Method Room Air Positive well nourished and well developed General Appearance ED: well developed and NAD HEENT Reports moist mucous membranes normocephalic and atraumatic Eyes PERRL, EOMs intact bilaterally and conjunctivae normal General Eye ED: Yes normal appearance of both eyes Neck no lymphadenopathy and supple General: Negative for tenderness Chest Wall Chest: Negative for tenderness Resp normal respiratory effort and normal air movement Effort and Inspection: symmetric chest movement; Negative for respiratory distress Cardio regular rate, regular rhythm and no murmurs Peripheral Pulses: pulses 2+ throughout GI normal to inspection, nondistended, normoactive bowel sounds and non-tender Palpation: Negative for guarding or rebound tenderness present Back/Spine no CVA tenderness and no thoracic nor lumbar tenderness Extremity normal to inspection General Extremety ED: Negative for edema or tenderness General Extremity: Negative for edema Neuro oriented x3, CN's II-XII intact bilaterally and no sensory deficits noted Sensorium / Orientation: awake and alert Skin no rashes or lesions noted and no wounds MDM MDM MDM Narrative Medical decision making narrative: Interventions / MDM: Differential diagnosis: Atypical chest pain, syncope Diagnosis considered but do not suspect: ACS however EKG troponins negative. PE however D-dimer negative. My EKG interpretation: Sinus rate of 89, no ST changes isolated T wave flattening in aVL. Imaging independently reviewed and interpreted by myself: 2 view chest x-ray: No acute process also read by radiology. External documents reviewed: N/A Test considered but not ordered:N/A ED course: Patient vague complaints and reports worsening dyspnea intermittent left-sided chest pain has had syncopal episodes however none recently. EKG obtained nonspecific T wave flattening aVL. Normal QTc. Cardiac workup initiated D-dimer due to dyspnea with history of syncope. Vitals are stable. Initial troponin negative D-dimer -2 view chest x-ray ordered returning negative. Labs stable hemoglobin 11.5 creatinine normal 1.05. Electrolytes all normal. Clinically stable reevaluation. Awaiting delta troponin. 1700 delta troponin negative. Patient ambulated with pulse ox start 100% down to 97%. No return of symptoms. Patient currently does not have established PCP. She is given follow-up with on-call PCP. Discussed strict return precautions. However with negative workup, discussed further workup as an outpatient. Reported recent Holter monitor as an outpatient. Discussed possible need for stress test. All questions were answered. Re-evaluation: stable Disposition discussed with patient/family/significant other: Patient Case discussed with consulting clinician: N/A This note was generated with [employer] dictation software. It may contain incorrect words, spelling, and punctuation that were not noted in checking the note before signing. Lab Data Attestation: I reviewed the patient's lab results. Labs: Laboratory Results - last 24 hr 11/16/23 11/16/23 14:00 16:37 WBC 5.3 RBC 4.98 Hgb 11.5 L Hct 37.1 MCV 74.5 L MCH 23.1 L MCHC 31.0 L RDW Std Deviation 49.6 H RDW Coeff of Adelia 18.6 H Plt Count 396 MPV 9.2 Immature Gran % (Auto) 0.200 Neut % (Auto) 33.4 L Lymph % (Auto) 57.5 H Power % (Auto) 6.8 Eos % (Auto) 1.7 Baso % (Auto) 0.4 Absolute Neuts (auto) 1.8 L Absolute Lymphs (auto) 3.06 Nucleated RBC % 0 D-Dimer Quant (PE/DVT) 0.37 Sodium 140 Potassium 3.7 Chloride 110 H Carbon Dioxide 25.0 Anion Gap 5 BUN 15 Creatinine 1.04 H Estim Creat Clear Calc 51.83 Est GFR (MDRD) Af Amer 69 Est GFR (MDRD) Non-Af 57 L BUN/Creatinine Ratio 14.4 Glucose 113 H Calcium 9.3 Troponin I High Sens 29 28 Radiography Diagnostic Testing: Clinical Impression(s) from Imaging Studies Chest X-Ray 11/16/23 15:15 IMPRESSION: Normal x-ray examination of the chest. Electronically Signed: Javad Del Cid MD at 15:27 EDT , Discharge Plan Triage Chief Complaint: Chest Pain ED Provider: Charly Almonte Dx/Rx/DC Orders Clinical Impression: Shortness of breath, Syncope, Chest pain Instructions: ED Chest Pain, Uncertain Cause, ED Dyspnea, ED Fainting, Uncertain Cause Prescriptions: No Action (DME) syringe with needle 1 mL 25 gauge x 1 syringe See Rx Instructions .ROUTE .MEDSUPPLY Qty: 100 Rx Instructions: As directed ergocalciferol (vitamin D2) 1,250 mcg (50,000 unit) capsule 50,000 unit PO Q2W temazepam 30 MG capsule 30 mg PO QHS Patient Comments: SLEEP cyclobenzaprine 10 mg tablet 20 mg PO TID Patient Comments: leg spasm Trulance 3 mg tablet 3 mg DAILY lidocaine 5 % Adhesive Patch,Medicated 1 patch topical DAILY 14 Days Qty: 14 0RF Protocol: *Topical Application Instructions APPLICATION INSTRUCTIONS: Apply to painful areas ferrous gluconate 324 mg (37.5 mg iron) Tablet 324 mg PO BIDCM 30 Days Qty: 60 0RF cyanocobalamin (vitamin B-12) 500 mcg Tablet 1,000 mcg PO BREAKFAST 30 Days Qty: 60 0RF triamterene-hydrochlorothiazid 37.5-25 mg capsule 1 cap PO DAILY 30 Days Qty: 90 1RF bupropion HCl 300 mg tablet extended release 24 hr 300 mg PO QAM Qty: 60 1RF (DME) rollator walker with seat See Rx Instructions .Route .MEDSUPPLY Qty: 1 0RF Rx Instructions: As directed cyanocobalamin (vitamin B-12) 1,000 mcg/mL solution 1,000 mcg IM Q30D Qty: 1 2RF diclofenac sodium 1 % gel 4 g TOPICAL .QID Qty: 100 1RF Rx Instructions: apply to single knee, ankle, foot; for foot includes sole/toes/top of foot omeprazole 40 mg capsule,delayed release(DR/EC) 40 mg PO DAILY Qty: 90 1RF albuterol sulfate 90 mcg/actuation HFA aerosol inhaler 2 puff INHALATION Q4H PRN PRN (Reason: SOB, wheezing) Qty: 8.5 1RF Patient Comments: BREATHING valacyclovir [Valtrex] 500 mg tablet 500 mg PO DAILY Qty: 90 1RF Primary Care Provider: Care Physician,No Primary Referrals: Alyson Gao MD [Med Staff - Regional Director Of Finance] - 3-5 Days Care Physician,No Primary [Primary Care Provider] - Activity Restrictions/Additional Instructions: Cardiac workup negative. D-dimer negative. Chest x-ray negative. Hemoglobin 11.5. White count 5.3. Creatinine 1.04. Follow-up as an outpatient as given to further testing. If you have recurrent symptoms, return to the ED for reevaluation. Disposition Disposition: Home, Self Care
[2023-11-16 14:25] LABS: Absolute Lymphocyte Count 3.06 X10^3/uL (0.83-4.51); Absolute Neutrophil Count 1.8 X10^3/uL (2.0-7.7); Basophil# 0.02 X10^3/uL; Basophil% 0.4 % (0-1); Eosinophil# 0.09 X10^3/uL; Eosinophils% 1.7 % (0-5); Hematocrit 37.1 % (37-47); Hemoglobin 11.5 g/dL (12.0-15.0); Lymphocyte # 3.06 X10^3/ul (0.83-4.51); Lymphocyte % 57.5 % (19-41); Mean Corpuscular Hgb 23.1 pg (27.0-32.0); Mean Corpuscular Volume 74.5 fL (81-99); Mean Platelet Vol. 9.2 fl (6.2-12.0); Monocyte# 0.36 X10^3/uL; Monocyte% 6.8 % (0-10); NRBC Flagged by Analyzer 0 % (0-5); Neutrophil # 1.78 X10^3/uL (2.7-7.7); Neutrophil % 33.4 % (47-70); Platelet Count 396 K/mm3 (150-450); RBC Distribution Width CV 18.6 % (11.6-14.6); RBC Distribution Width SD 49.6 fl (35.1-43.9); Red Blood Count 4.98 M/mm3 (4.2-5.4); White Blood Count 5.3 K/mm3 (4.4-11.0)
[2023-11-16 14:32] LABS: D-Dimer Quantitative (DVT/PE) 0.37 FEU/ug/m (0.27-0.49)
[2023-11-16 14:39] LABS: Anion Gap 5 (5-15); BUN 15 mg/dL (7-18); BUN/Creat Ratio 14.4 RATIO (10-20); Calcium,Total 9.3 mg/dL (8.5-10.1); Chloride 110 mmol/L (98-107); Creatinine, Serum 1.04 mg/dL (0.55-1.02); EST Glomerular Filtration Rate 57 mL/min (>60); Est Glom Filt Rate - Afr Amer 69 mL/min (>60); Estimated Creatinine Clearance 51.83 ml/min; Glucose 113 mg/dL (74-106); Potassium 3.7 mmol/L (3.5-5.1); Sodium Level 140 mmol/L (136-145); Troponin-I HS (w/2H Reflex) 29 pg/mL (3.0-54.0)
--- NOTE | 2023-11-16 15:15 | RAD_ITS ---
STUDY: X-RAY CHEST REASON FOR EXAM: Female, 63 years old. Chest pain TECHNIQUE: PA and lateral views of the chest. COMPARISON: Comparison is made with prior study dated February 13, 2023. FINDINGS: EKG electrodes are seen. The lungs are clear and expanded. There is no demonstrated pleural abnormality. Normal size heart. Normal mediastinum and lucía. Normal visualized pulmonary arteries. Normal visualized aortic arch and descending thoracic aorta. Normal visualized thoracic spine. Normal visualized ribs, clavicles, and shoulders. There is no demonstrated abnormality of the visualized soft tissue structures of the upper abdomen. RAD/Chest PA and Lateral IMPRESSION: Normal x-ray examination of the chest. Electronically Signed: Javad Del Cid MD at 15:27 EDT ,
[2023-11-16 16:20] LABS: Reflex Troponin-HS? (from REC) Y
[2023-11-16] MEDS: Ondansetron 4 MG/2 ML Vial IV (16:44)
[2023-11-16 17:04] LABS: Troponin-I HS 28 pg/mL (3.0-54.0)
--- NOTE | 2023-11-16 17:47 | ED.RN ---
pt ambulated with steady gait and no signs of distress. provider aware
== END 2023-11-16 18:19 | disposition home or self-care (01) ==
PROVIDERS: Emergency Provider Emergency Medicine; Visit Provider Emergency Medicine
DX: R06.02 Shortness of breath (principal); R55 Syncope and collapse; R07.9 Chest pain, unspecified; Z11.52 Encounter for screening for COVID-19; R20.2 Paresthesia of skin; I10 Essential (primary) hypertension; R05.9 Cough, unspecified; Z87.891 Personal history of nicotine dependence; Z98.84 Bariatric surgery status; Z95.1 Presence of aortocoronary bypass graft
CPT/HCPCS: 71046; 80048; 84484; 85025; 85379; 87631; 93005; 96374; 99284; A4216; J2405

== ENCOUNTER → 2024-01-10 | Outpatient (CLI) | payer MEDICARE, MEDICAID, SELFPAY ==
[2024-01-10 17:33] LABS: Hematocrit 36.5 % (37-47); Hemoglobin 11.6 g/dL (12.0-15.0); Mean Corp Hgb Conc 31.8 g/dL (32-36); Mean Corpuscular Hgb 25.3 pg (27.0-32.0); Mean Corpuscular Volume 79.5 fL (81-99); Mean Platelet Vol. 9.8 fl (6.2-12.0); POSITIVE MORPHOLOGY YES; Platelet Count 264 K/mm3 (150-450); RBC Distribution Width CV 23.4 % (11.6-14.6); RBC Distribution Width SD 65.4 fl (35.1-43.9); Red Blood Count 4.59 M/mm3 (4.2-5.4); White Blood Count 4.4 K/mm3 (4.4-11.0)
[2024-01-10 17:55] LABS: Vitamin B12 776 pg/mL (211-911)
[2024-01-10 18:02] LABS: Erythrocyte Sedimentation Rate 11 mm/hr (0-30); Scan Indicated on CBC? Y/N YES- FLAGS NOTED
[2024-01-10 18:05] LABS: ALB/GLOB Ratio 1.1 RATIO (0.9-2.4); AST(SGOT) 38 U/L (15-37); Alanine Aminotransfer ALT/SGPT 31 U/L (13-56); Albumin, Serum 3.6 g/dL (3.2-5.0); Alkaline Phosphatase 107 U/L (45-117); Anion Gap 5 (5-15); BUN 9 mg/dL (7-18); BUN/Creat Ratio 9.4 RATIO (10-20); CRP < 2.90 mg/L (0.0-3.0); Calcium,Total 9.6 mg/dL (8.5-10.1); Chloride 111 mmol/L (98-107); Creatinine, Serum 0.96 mg/dL (0.55-1.02); EST Glomerular Filtration Rate 62 mL/min (>60); Est Glom Filt Rate - Afr Amer 75 mL/min (>60); Ferritin 94 ng/mL (8-252); Globulin 3.4 g/dL (2.2-4.2); Glucose 99 mg/dL (74-106); Iron 88 ug/dL (50-170); Potassium 3.7 mmol/L (3.5-5.1); Sodium Level 139 mmol/L (136-145)
== END | disposition home or self-care (01) ==
LOC: MTLAB 16:05
PROVIDERS: Referring Provider Internal Medicine Gastroenterology; Visit Provider Internal Medicine Gastroenterology
DX: D50.9 Iron deficiency anemia, unspecified (principal); R63.4 Abnormal weight loss
CPT/HCPCS: 36415; 80053; 82607; 82728; 83540; 85027; 85652; 86140

== ENCOUNTER → 2024-02-14 | Outpatient (CLI) | payer MEDICARE, MEDICAID, SELFPAY ==
[2024-02-14 11:00] LABS: Absolute Lymphocyte Count 2.25 X10^3/uL (0.83-4.51); Absolute Neutrophil Count 1.6 X10^3/uL (2.0-7.7); Basophil# 0.01 X10^3/uL; Basophil% 0.2 % (0-1); Eosinophil# 0.07 X10^3/uL; Eosinophils% 1.6 % (0-5); Hematocrit 40.7 % (37-47); Lymphocyte # 2.25 X10^3/ul (0.83-4.51); Lymphocyte % 52.9 % (19-41); Mean Corp Hgb Conc 31.9 g/dL (32-36); Mean Corpuscular Hgb 26.4 pg (27.0-32.0); Mean Corpuscular Volume 82.7 fL (81-99); Mean Platelet Vol. 9.4 fl (6.2-12.0); Monocyte# 0.32 X10^3/uL; Monocyte% 7.5 % (0-10); NRBC Flagged by Analyzer 0 % (0-5); Neutrophil # 1.59 X10^3/uL (2.7-7.7); Neutrophil % 37.6 % (47-70); POSITIVE MORPHOLOGY YES; Platelet Count 247 K/mm3 (150-450); RBC Distribution Width CV 21.5 % (11.6-14.6); RBC Distribution Width SD 64.3 fl (35.1-43.9); Red Blood Count 4.92 M/mm3 (4.2-5.4); White Blood Count 4.3 K/mm3 (4.4-11.0)
[2024-02-14 11:14] LABS: Differential Indicated SCAN CRITERIA MET
[2024-02-14 11:40] LABS: Acanthocytes 1+; Anisocytosis 2+; Differential Comment SCANNED; Ovalocyte 1+; Stomatocyte 1+; Target Cells 1+; Tear Drop Cell 1+
[2024-02-14 11:50] LABS: ALB/GLOB Ratio 0.9 RATIO (0.9-2.4); AST(SGOT) 35 U/L (15-37); Alanine Aminotransfer ALT/SGPT 24 U/L (13-56); Albumin, Serum 3.5 g/dL (3.2-5.0); Alkaline Phosphatase 103 U/L (45-117); Anion Gap 9 (5-15); BUN 12 mg/dL (7-18); BUN/Creat Ratio 12.5 RATIO (10-20); Calcium,Total 9.2 mg/dL (8.5-10.1); Chloride 106 mmol/L (98-107); Cholesterol 254 mg/dL (200); Creatinine, Serum 0.96 mg/dL (0.55-1.02); EST Glomerular Filtration Rate 62 mL/min (>60); Est Glom Filt Rate - Afr Amer 75 mL/min (>60); Globulin 3.7 g/dL (2.2-4.2); Glucose 90 mg/dL (74-106); High Density Lipoprotein 170 mg/dL; Potassium 4.1 mmol/L (3.5-5.1); Protein, Total 7.2 g/dL (6.4-8.2); Sodium Level 137 mmol/L (136-145); Triglycerides 88 mg/dL; Very Low Density Lipoprotein 18 mg/dL (5-40)
[2024-02-14 12:17] LABS: Hepatitis C Antibody Non-Reactive (Nonreactive); Vitamin D,25 Hydroxy 120.3 ng/mL
== END | disposition home or self-care (01) ==
PROVIDERS: PCP Family Medicine Geriatric Medicine; Referring Provider Family Medicine Geriatric Medicine; Visit Provider Family Medicine Geriatric Medicine
DX: E78.6 Lipoprotein deficiency (principal); E55.9 Vitamin D deficiency, unspecified; Z13.89 Encounter for screening for other disorder
CPT/HCPCS: 36415; 80053; 80061; 82306; 84443; 85025; 86803

== ENCOUNTER → 2024-02-21 | Outpatient (CLI) | payer MEDICARE, MEDICAID, SELFPAY ==
--- NOTE | 2024-02-21 07:26 | RAD_ITS ---
PROCEDURE: Air contrast Upper GI with Small Bowel Follow Through DATE OF EXAMINATION: February 21, 2024.. INDICATION: Female, 64 years old. Two-year history of abdominal pain and weight loss. History of prior gastric bypass surgery. Nausea. FLUOROSCOPY TIME (if supplied): (1:44) minutes/seconds. 27.5 mGy. 12 images were submitted. TECHNIQUE: Radiographic and fluoroscopic images of the distal esophagus, stomach, and entire small intestine were obtained following the oral ingestion of barium. COMPARISON: None. FINDINGS: The patient ingested barium. Imaging the esophagus was obtained. There is no evidence of obstruction. No evidence of gastroesophageal reflux. No mass lesion is present. The patient is status post gastric bypass surgery with a Billroth II type anastomosis. A single contrast small bowel follow through exam demonstrates the small bowel to have no evidence for stricture, ulceration or mass. The transit time is normal at 60 minutes. RAD/Upper GI/w Small Bowel IMPRESSION: Status post gastric bypass surgery. No evidence of reflux. Unremarkable small bowel follow-through examination. Electronically Signed: Javad Del Cid MD at 10:07 EDT ,
== END | disposition home or self-care (01) ==
LOC: RAD 07:23
PROVIDERS: PCP Family Medicine Geriatric Medicine; Referring Provider Internal Medicine Gastroenterology; Visit Provider Internal Medicine Gastroenterology
DX: R63.4 Abnormal weight loss (principal); R10.9 Unspecified abdominal pain
CPT/HCPCS: 74246; 74248

== ENCOUNTER 2024-04-01 10:51 | Emergency (ER) | payer MEDICARE, MEDICAID, SELFPAY ==
[2024-04-01] VITALS (7 sets, daily range): BP systolic 130–149; BP diastolic 67–97; PULSE 52–73; RESP 16–18; TEMP 36.2–36.8; O2SAT 94–100; BMI 23.4
--- NOTE | 2024-04-01 11:12 | ED.VIS.STROK ---
HPI History of Present Illness Chief Complaint: Neuro S/Sx Onset/Context/Timing Onset: Days (4) Context: Sudden Onset Timing: Intermittent Quality and Location: Positive for Left Facial Droop, Slurred Speech and Expressive Aphasia Onset: 3 days ago Worsened by: Nothing Relieved by: Nothing Associated Symptoms Associated Symptoms: Positive for Headache and Chest Pain; Negative for Nausea or Vomiting Narrative Narrative: Patient presents with a headache that began 3 days ago. Patient states the headache has been intermittent. Patient states it is mainly over the right side of her head. The patient describes it as sharp. Patient states she has been having difficulty with her speech and sensation. Patient states she has also been drooling of the left side of her mouth. Patient denies any nausea or vomiting. Patient states she did have an episode of chest pain today. [facility] Medical History GERD (gastroesophageal reflux disease) PTSD (post-traumatic stress disorder) Tobacco use ETOH abuse Iron (Fe) deficiency anemia History of GI bleed Fall Syncope Iron deficiency Health care maintenance Insomnia Anxiety and depression Obesity (BMI 30-39.9) TMJ (temporomandibular joint syndrome) ADHD Chronic pain Hypertension Chronic pain ADHD (attention deficit hyperactivity disorder) Postsurgical malabsorption, not elsewhere classified Iron deficiency anemia following bariatric surgery B12 deficiency Anemia Hypertension GI bleed PUD (peptic ulcer disease) Home Medications ?Medication ?Instructions ?Recorded ?Last Taken ?Type temazepam 30 mg capsule 30 mg PO QHS 03/16/16 03/15/16 History rollator walker with seat #1 ea 10/09/20 Unknown Rx cyclobenzaprine 10 mg tablet 20 mg PO TID 10/24/20 Unknown History cyanocobalamin (vitamin B-12) 1,000 mcg IM Q30D #1 mL 12/20/20 Unknown Rx 1,000 mcg/mL injection solution diclofenac sodium 1 % topical gel 4 g topical .QID #100 grams 03/03/21 Unknown Rx omeprazole 40 mg capsule,delayed 40 mg PO DAILY #90 caps 03/03/21 Unknown Rx release syringe with needle 1 mL 25 gauge #100 ea 03/05/21 Unknown History x 1 albuterol sulfate 90 mcg/actuation 2 puff inhalation Q4H PRN PRN SOB, 04/16/21 Unknown Rx aerosol inhaler wheezing #8.5 grams valacyclovir 500 mg tablet 500 mg PO DAILY Herpes Flare #90 10/28/21 Unknown Rx (Valtrex) tabs ergocalciferol (vitamin D2) 1,250 50,000 unit PO Q2W 11/26/21 Unknown History mcg (50,000 unit) capsule ferrous gluconate 324 mg (37.5 mg 324 mg PO BIDCM 30 days #60 tabs 02/16/23 Unknown Rx iron) tablet lidocaine 5 % topical patch 1 patch topical DAILY 14 days #14 02/16/23 Unknown Rx ea triamterene 37.5 1 cap PO DAILY 30 days #90 caps 02/16/23 Unknown Rx mg-hydrochlorothiazide 25 mg capsule mecobalamin (vitamin B12) 5,000 5,000 mcg PO QWEEK #10 tabs 11/18/23 Unknown Rx mcg disintegrating tablet Allergy/AdvReac Type Severity Reaction Status Date / Time buprenorphine (From [place]) Allergy Rash Verified 02/16/24 09:09 NSAIDS (Non-Steroidal AdvReac Nausea Verified 02/16/24 09:09 Anti-Inflamma Family History Father Myocardial infarction Alcohol abuse Heart disease CAD (coronary artery disease) Mother CVA (cerebral vascular accident) Hypertension Thrombosis Alcohol abuse Sister Lupus Surgical History Hx of bariatric surgery S/P H/O gastric bypass (~1999) Social History household members: other details: grandson housing: house current occupational status: retired and disabled history of recent travel: No Smoking Status: Former smoker Smokeless tobacco user: other alcohol intake: current alcohol intake frequency: 3 or more drinks per day details: Patient reports history of at 2-tall boys daily at least. substance use type: does not use what type of physical activity do you participate in: none and walking seatbelt use: always do you feel safe at home: Yes additional social history: single ROS ROS ED Constitutional Constitutional ED: Denies chills or fever(s) Eyes Eyes: Reports blurry vision; Denies diplopia ENT ENT ED: Reports rhinorrhea; Denies sore throat Cardiovascular Cardiovascular: Reports chest pain; Denies palpitations Respiratory/Chest Respiratory/Chest: Reports cough; Denies dyspnea Gastrointestinal Gastrointestinal: Denies nausea or vomiting Genitourinary Genitourinary ED: Denies dysuria or hematuria Musculoskeletal Musculoskeletal: Reports neck pain; Denies back pain Integumentary Denies abscess or rash Neurologic Neurologic: Reports headache(s); Denies weakness Allergic/Immunologic Allergic/Immunologic ED: Denies mouth swelling or urticaria EXAM Physical Exam Const Vital Signs: 04/01/24 10:55 04/01/24 11:53 04/01/24 12:00 Temperature 97.1 F L Temperature Source Temporal Pulse Rate 72 52 L 62 Respiratory Rate 16 16 16 Blood Pressure 149/79 H 140/81 H 133/97 H Blood Pressure Mean 102 100 109 Pulse Ox 100 97 97 Oxygen Delivery Method Room Air Room Air Room Air 04/01/24 13:00 04/01/24 13:54 Temperature Temperature Source Pulse Rate 62 61 Respiratory Rate 18 18 Blood Pressure 130/83 H 132/67 H Blood Pressure Mean 98 88 Pulse Ox 94 94 Oxygen Delivery Method Room Air Room Air Positive well nourished and well developed General Appearance ED: well developed and NAD HEENT Reports moist mucous membranes Eyes Eyes Narrative: There is tenderness over the right temporal area and temporal artery. Neck supple and no JVD Resp normal respiratory effort and clear to auscultation bilaterally Cardio Rate: regular rate Rhythm: regular rhythm GI soft to palpation, non-tender and non-distended Extremity normal to inspection General Extremety ED: Negative for deformity or edema General Extremity: Negative for deformity or edema Neuro oriented x3, CN's II-XII intact bilaterally and no sensory deficits noted Harley Coma Scale: document GCS findings Spontaneous Obeys Commands Oriented 15 Sensorium / Orientation: alert Motor Exam: strength 5/5 throughout Psych mental status grossly normal MDM MDM MDM Narrative Medical decision making narrative: Differential diagnosis includes stroke, intracranial bleeding, temporal arteritis, migraine headache, electrolyte abnormality, pneumonia, cardiac dysrhythmia, and cardiac ischemia. EKG will be obtained to assess for cardiac dysrhythmia and cardiac ischemia. Chest x-ray will be obtained to assess for pneumonia and pneumothorax. CT scan of the brain will be obtained to assess for intracranial bleeding and stroke. CBC will be obtained to assess for leukocytosis and anemia. Comprehensive metabolic profile will be obtained to assess for hepatic function, renal function, and electrolyte abnormality. High-sensitivity troponin will be obtained to assess for cardiac ischemia. Urinalysis will be obtained to assess for urinary tract infection and hematuria. Lab Data Attestation: I reviewed the patient's lab results. Lab results narrative: CBC was reviewed. White blood cell count was slightly low at 3.5. The remainder is within normal limits. Sed rate was reviewed and was normal at 18. PT with INR and PTT were reviewed and were within normal limits. Basic metabolic profile was reviewed and was within normal limits. Urinalysis was reviewed. There is no evidence of urinary tract infection or hematuria. COVID-19 PCR was reviewed and was positive. Influenza PCR was reviewed and was negative for influenza A and influenza B. RSV PCR was reviewed and was negative. Labs: Laboratory Results - last 24 hr 04/01/24 04/01/24 04/01/24 11:04 11:21 12:55 WBC 3.5 L RBC 4.84 Hgb 13.1 Hct 40.5 MCV 83.7 MCH 27.1 MCHC 32.3 RDW Std Deviation 51.3 H RDW Coeff of Adelia 16.7 H Plt Count 221 MPV 9.9 Immature Gran % (Auto) 0.300 Neut % (Auto) 29.3 L Lymph % (Auto) 61.1 H Fann[place] % (Auto) 7.5 Eos % (Auto) 1.2 Baso % (Auto) 0.6 Absolute Neuts (auto) 1.0 L Absolute Lymphs (auto) 2.12 Nucleated RBC % 0 ESR 18 PT 13.4 INR 1.0 APTT 28.3 Sodium 139 Potassium 4.0 Chloride 114 H Carbon Dioxide 19.0 L Anion Gap 6 BUN 9 Creatinine 1.03 H Estim Creat Clear Calc 51.66 Est GFR (MDRD) Af Amer 69 Est GFR (MDRD) Non-Af 57 L BUN/Creatinine Ratio 8.7 L Glucose 112 H Calcium 9.1 Total Bilirubin 0.30 AST 25 ALT 19 Alkaline Phosphatase 102 Troponin I High Sens 29 Total Protein 6.9 Albumin 3.2 Globulin 3.7 Albumin/Globulin Ratio 0.9 Urine Color Yellow Urine Clarity Clear Urine pH 6.0 Ur Specific [place] 1.010 Urine Protein Negative Urine Glucose (UA) Normal Urine Ketones Negative Urine Occult Blood Negative Urine Nitrite Negative Urine Bilirubin Negative Urine Urobilinogen Normal Ur Leukocyte Esterase Negative Urine RBC 0 SEEN Urine WBC 0 SEEN Ur Squamous Epith Cells 0 SEEN Urine Bacteria 0 SEEN Urine Mucus 0 SEEN POC Glucose 126 H Radiography Chest X-Ray - ED: 2 View, Read by ED Physician, Read by Radiologist and - (Atelectasis versus infiltrate in the left lower lobe) Diagnostic Testing: Clinical Impression(s) from Imaging Studies Brain CT 04/01/24 11:19 IMPRESSION: Negative head/brain CT without intravenous contrast. Electronically Signed: Sam Dillard DO at 12:22 EDT , Chest X-Ray 04/01/24 11:19 IMPRESSION: Left lower lobe pulmonary opacity is likely atelectasis or perhaps pneumonia. Electronically Signed: Sam Dillard DO at 12:32 EDT , CT scan of the brain was obtained. There is no acute intracranial abnormality. This was interpreted by the radiologist and was also independently reviewed by myself. PA and lateral chest x-ray was obtained. There are 2 views. On my independent interpretation, lung ferrer show atelectasis versus infiltrate in the left lower lobe. There is normal cardiac silhouette. Bony thorax is normal. Radiologist also interpreted the x-ray and agrees. EKG Initial EKG: Attestation: I personally reviewed and interpreted this EKG as follows: Interpretation: No Acute Injury Pattern and Sinus Bradycardia (57) Comments: EKG was obtained. On my independent interpretation, it showed a sinus bradycardia with a rate of 57. MD interval, QRS interval, and QTc intervals were all normal. Sells was normal. There are no acute ST or T wave changes. There is possible left atrial enlargement. Prior EKG tracings: available for review Prior: Unchanged (11/16/2023) Treatment and Re-Evaluation Narrative: Patient was given IV fluids, Reglan, and Benadryl. Patient was advised of her findings. Patient was still having headache. Patient was given 1 dose of [place] here. Patient was instructed to rest in a dark quiet room. Patient was instructed to follow-up with her primary care physician in 5 to 7 days. Patient was instructed to return if worse in any way. Patient understood and was agreeable with the plan. All questions were answered. Discharge Plan Triage Chief Complaint: Neuro S/Sx ED Provider: Randall Cheng Dx/Rx/DC Orders Clinical Impression: COVID-19, Hx of bariatric surgery, Hypertension Instructions: Coronavirus Disease 2019 (COVID-19): Caring for Yourself or Others Prescriptions: No Action (DME) syringe with needle 1 mL 25 gauge x 1 syringe See Rx Instructions .ROUTE .MEDSUPPLY Qty: 100 Rx Instructions: As directed ergocalciferol (vitamin D2) 1,250 mcg (50,000 unit) capsule 50,000 unit PO Q2W mecobalamin (vitamin B12) 5,000 mcg tablet,disintegrating 5,000 mcg PO QWEEK Qty: 10 0RF temazepam 30 MG capsule 30 mg PO QHS Patient Comments: SLEEP cyclobenzaprine 10 mg tablet 20 mg PO TID Patient Comments: leg spasm lidocaine 5 % Adhesive Patch,Medicated 1 patch topical DAILY 14 Days Qty: 14 0RF Protocol: *Topical Application Instructions APPLICATION INSTRUCTIONS: Apply to painful areas ferrous gluconate 324 mg (37.5 mg iron) Tablet 324 mg PO BIDCM 30 Days Qty: 60 0RF triamterene-hydrochlorothiazid 37.5-25 mg capsule 1 cap PO DAILY 30 Days Qty: 90 1RF (DME) rollator walker with seat See Rx Instructions .Route .MEDSUPPLY Qty: 1 0RF Rx Instructions: As directed cyanocobalamin (vitamin B-12) 1,000 mcg/mL solution 1,000 mcg IM Q30D Qty: 1 2RF diclofenac sodium 1 % gel 4 g TOPICAL .QID Qty: 100 1RF Rx Instructions: apply to single knee, ankle, foot; for foot includes sole/toes/top of foot omeprazole 40 mg capsule,delayed release(DR/EC) 40 mg PO DAILY Qty: 90 1RF albuterol sulfate 90 mcg/actuation HFA aerosol inhaler 2 puff INHALATION Q4H PRN PRN (Reason: SOB, wheezing) Qty: 8.5 1RF Patient Comments: BREATHING valacyclovir [Valtrex] 500 mg tablet 500 mg PO DAILY Qty: 90 1RF Primary Care Provider: Stoney Hudson Chi Referrals: Stoney Hudson Chi, MD [Primary Care Provider] - 5-7 Days Print Language: Amharic Disposition Disposition: Home, Self Care
--- NOTE | 2024-04-01 11:19 | CT_ITS ---
EXAM: CT HEAD WITHOUT INTRAVENOUS CONTRAST CLINICAL INDICATION: Headache TECHNIQUE: Multiple axial images were obtained of the head without intravenous contrast. This CT exam was performed using one or more of the following dose reduction techniques: automated exposure control, adjustment of the mA and/or kV according to patient size, and/or use of iterative reconstruction technique. COMPARISON: CT head, 02/13/2023 FINDINGS: BRAIN AND EXTRA-AXIAL SPACES: No significant abnormality. No intra- or extra-axial hemorrhage. No evidence of acute infarct. No intracranial mass or mass effect. There is preservation of the kasper/white matter interface. Ventricles are appropriate for age. Basal cisterns are patent. BONES/JOINTS: No significant abnormality. No discrete lytic or blastic abnormalities. SINUSES: No significant findings. MASTOID AIR CELLS: No significant effusion. ORBITS: No acute findings. CT/Brain/Head without Contrast IMPRESSION: Negative head/brain CT without intravenous contrast. Electronically Signed: Sam Dillard DO at 12:22 EDT ,
--- NOTE | 2024-04-01 11:19 | EKG12_ITS ---
Test Reason : NEURO Blood Pressure : / mmHG Vent. Rate : 057 BPM Atrial Rate : 057 BPM P-R Int : 156 ms QRS Dur : 068 ms QT Int : 446 ms P-R-T Axes : 071 010 062 degrees QTc Int : 434 ms Sinus bradycardia Possible Left atrial enlargement Borderline ECG Confirmed by DORIS WOO, FADUMO ([id number]), editor publications ENZO STANFORD ([id number]) on 04/04/2024 8:10:12 AM Referred By: Confirmed By:FADUMO GEORGE MD
--- NOTE | 2024-04-01 11:19 | RAD_ITS ---
EXAM: XR CHEST, 2 VIEWS CLINICAL INDICATION: Cough TECHNIQUE: Frontal and lateral views of the chest. COMPARISON: 11/16/2023 FINDINGS: LUNGS AND PLEURAL SPACES: Left lower lobe pulmonary opacity is likely atelectasis or perhaps pneumonia. No pneumothorax. No effusion. HEART: No significant abnormality. Cardiac silhouette not enlarged. MEDIASTINUM: Central airways and mediastinal contour are unremarkable. BONES/JOINTS: Degenerative changes in the spine and shoulders. No acute fracture. SOFT TISSUES: No significant abnormality. VASCULATURE: Atherosclerosis. RAD/Chest PA and Lateral IMPRESSION: Left lower lobe pulmonary opacity is likely atelectasis or perhaps pneumonia. Electronically Signed: Sam Dillard DO at 12:32 EDT ,
[2024-04-01 11:29] LABS: Bedside Glucose 126 mg/dL (74-106)
[2024-04-01] MEDS: Metoclopramide 10 MG/2 ML Vial IV (11:31)
[2024-04-01] MEDS: DiphenhydrAMINE 50 MG/ML Syringe 25 MG IV (11:31)
[2024-04-01 11:46] LABS: Absolute Lymphocyte Count 2.12 X10^3/uL (0.83-4.51); Basophil# 0.02 X10^3/uL; Basophil% 0.6 % (0-1); Differential Indicated SCAN CRITERIA MET; Eosinophil# 0.04 X10^3/uL; Eosinophils% 1.2 % (0-5); Hematocrit 40.5 % (37-47); Hemoglobin 13.1 g/dL (12.0-15.0); Lymphocyte # 2.12 X10^3/ul (0.83-4.51); Lymphocyte % 61.1 % (19-41); Mean Corp Hgb Conc 32.3 g/dL (32-36); Mean Corpuscular Hgb 27.1 pg (27.0-32.0); Mean Corpuscular Volume 83.7 fL (81-99); Mean Platelet Vol. 9.9 fl (6.2-12.0); Monocyte# 0.26 X10^3/uL; Monocyte% 7.5 % (0-10); NRBC Flagged by Analyzer 0 % (0-5); Neutrophil # 1.02 X10^3/uL (2.7-7.7); Neutrophil % 29.3 % (47-70); POSITIVE MORPHOLOGY YES; Platelet Count 221 K/mm3 (150-450); RBC Distribution Width CV 16.7 % (11.6-14.6); RBC Distribution Width SD 51.3 fl (35.1-43.9); Red Blood Count 4.84 M/mm3 (4.2-5.4); White Blood Count 3.5 K/mm3 (4.4-11.0)
[2024-04-01 11:50] LABS: Prothrombin Time (Protime)PT. 13.4 SECONDS (11.7-14.9)
[2024-04-01 11:51] LABS: Partial Thromboplast Time 28.3 Seconds (24.1-36.2)
[2024-04-01 11:52] LABS: Erythrocyte Sedimentation Rate 18 mm/hr (0-30)
[2024-04-01 11:59] LABS: ALB/GLOB Ratio 0.9 RATIO (0.9-2.4); AST(SGOT) 25 U/L (15-37); Alanine Aminotransfer ALT/SGPT 19 U/L (13-56); Albumin, Serum 3.2 g/dL (3.2-5.0); Alkaline Phosphatase 102 U/L (45-117); Anion Gap 6 (5-15); BUN 9 mg/dL (7-18); BUN/Creat Ratio 8.7 RATIO (10-20); Calcium,Total 9.1 mg/dL (8.5-10.1); Chloride 114 mmol/L (98-107); Creatinine, Serum 1.03 mg/dL (0.55-1.02); EST Glomerular Filtration Rate 57 mL/min (>60); Est Glom Filt Rate - Afr Amer 69 mL/min (>60); Estimated Creatinine Clearance 51.66 ml/min; Globulin 3.7 g/dL (2.2-4.2); Glucose 112 mg/dL (74-106); Protein, Total 6.9 g/dL (6.4-8.2); Sodium Level 139 mmol/L (136-145); Troponin-I HS 29 pg/mL (3.0-54.0)
[2024-04-01] MEDS: 0.9% Normal Saline (500mL Bag) 500 ML 1000 ML IV (12:25)
[2024-04-01 12:59] LABS: Bacteria 0 SEEN /hpf (None Seen); Mucous, Urine 0 SEEN /hpf (<or=2+); Red Blood Cells-Urine 0 SEEN /hpf (0-5); Squamous Epithelial Cells - UA 0 SEEN /hpf (5-10); White Blood Cells 0 SEEN /hpf (0-5)
[2024-04-01 13:00] LABS: Color, Urine Yellow (Yellow); Glucose, Dipstick Normal (Normal); Ketone-Dipstick Negative (Negative); Leukocyte Esterase-Dipstick Negative /ul (Negative); Nitrite-Dipstick Negative (Negative); Occult Blood-Urine Negative /ul (Negative); Protein-Dipstick Negative (Negative); Urine Bilirubin Dipstick Negative (Negative); Urine Clarity Clear (Clear); Urine Urobilinogen Normal (Normal)
[2024-04-01] MEDS: HYDROcodone Bitartrate/Apap 5/325 Tablet PO (15:22)
== END 2024-04-01 15:27 | disposition home or self-care (01) ==
PROVIDERS: Emergency Provider Emergency Medicine; PCP Family Medicine Geriatric Medicine; Visit Provider Emergency Medicine
DX: U07.1 COVID-19 (principal); I10 Essential (primary) hypertension; R47.01 Aphasia; R47.81 Slurred speech; R51.9 Headache, unspecified; R29.810 Facial weakness; Z79.899 Other long term (current) drug therapy; Z98.84 Bariatric surgery status; Z87.891 Personal history of nicotine dependence
CPT/HCPCS: 70450; 71046; 80053; 81001; 82962; 84484; 85025; 85610; 85652; 85730; 87040; 87631; 93005; 96361; 96374; 96375; 99285; J7030; A4216

== ENCOUNTER 2024-04-04 11:44 | Emergency (ER) | payer MEDICARE, MEDICAID, SELFPAY ==
[2024-04-04 11:45] VITALS: BP 131/100; PULSE 65; RESP 16; TEMP 35.9; O2SAT 100; BMI 23.0
== END 2024-04-04 13:48 | disposition left against medical advice (07) ==
LOC: ED 13:47
PROVIDERS: PCP Family Medicine Geriatric Medicine
DX: Z53.21 Procedure and treatment not carried out due to patient leaving prior to being seen by health care provider (principal)

== ENCOUNTER 2024-04-05 09:40 | Emergency (ER) | payer MEDICARE, MEDICAID, SELFPAY ==
[2024-04-05 09:41] VITALS: BP 153/94; PULSE 78; RESP 16; TEMP 36.4; O2SAT 98; BMI 23.1
--- NOTE | 2024-04-05 10:03 | EDS_ITS ---
HPI History of Present Illness Chief Complaint: Headache Informant: patient Onset/Context/Timing Onset: Days Context: Gradual Timing: Continuous Quality -Headache: Positive for Similar Prior Headaches Current Severity: Mild Maximum Severity: Mild Associated Symptoms/Injury Associated Symptoms: Negative for Fever, Nausea, Vomiting, Tingling, Preceding Aura or Visual Loss Injury - DAVALOS: Negative for Direct Trauma, Fall or Assault Narrative Narrative: 64-year-old female history of anemia, PTSD, chronic pain. She was seen 4 days ago here and had a CAT scan and labs which were unremarkable. Normal sed rate. She has acute on chronic what she describes as head pain. Denies being on any blood thinners. Has had no recent trauma. No fever or nasal congestion. No neck pain. Prior similar symptoms: Yes Recent Illness/Hospitalization: No PFSH PFS Medical History GERD (gastroesophageal reflux disease) PTSD (post-traumatic stress disorder) Tobacco use ETOH abuse Iron (Fe) deficiency anemia History of GI bleed Fall Syncope Iron deficiency Health care maintenance Insomnia Anxiety and depression Obesity (BMI 30-39.9) TMJ (temporomandibular joint syndrome) ADHD Chronic pain Hypertension Chronic pain ADHD (attention deficit hyperactivity disorder) Postsurgical malabsorption, not elsewhere classified Iron deficiency anemia following bariatric surgery B12 deficiency Anemia Hypertension GI bleed PUD (peptic ulcer disease) Home Medications ?Medication ?Instructions ?Recorded ?Last Taken ?Type temazepam 30 mg capsule 30 mg PO QHS 03/16/16 03/15/16 History rollator walker with seat #1 ea 10/09/20 Unknown Rx cyclobenzaprine 10 mg tablet 20 mg PO TID 10/24/20 Unknown History cyanocobalamin (vitamin B-12) 1,000 mcg IM Q30D #1 mL 12/20/20 Unknown Rx 1,000 mcg/mL injection solution diclofenac sodium 1 % topical gel 4 g topical .QID #100 grams 03/03/21 Unknown Rx omeprazole 40 mg capsule,delayed 40 mg PO DAILY #90 caps 03/03/21 Unknown Rx release syringe with needle 1 mL 25 gauge #100 ea 03/05/21 Unknown History x 1 albuterol sulfate 90 mcg/actuation 2 puff inhalation Q4H PRN PRN SOB, 04/16/21 Unknown Rx aerosol inhaler wheezing #8.5 grams valacyclovir 500 mg tablet 500 mg PO DAILY Herpes Flare #90 10/28/21 Unknown Rx (Valtrex) tabs ergocalciferol (vitamin D2) 1,250 50,000 unit PO Q2W 11/26/21 Unknown History mcg (50,000 unit) capsule ferrous gluconate 324 mg (37.5 mg 324 mg PO BIDCM 30 days #60 tabs 02/16/23 Unknown Rx iron) tablet lidocaine 5 % topical patch 1 patch topical DAILY 14 days #14 02/16/23 Unknown Rx ea triamterene 37.5 1 cap PO DAILY 30 days #90 caps 02/16/23 Unknown Rx mg-hydrochlorothiazide 25 mg capsule mecobalamin (vitamin B12) 5,000 5,000 mcg PO QWEEK #10 tabs 11/18/23 Unknown Rx mcg disintegrating tablet Allergy/AdvReac Type Severity Reaction Status Date / Time buprenorphine (From Butrans) Allergy Rash Verified 04/05/24 09:41 NSAIDS (Non-Steroidal AdvReac Nausea Verified 04/05/24 09:41 Anti-Inflamma Family History Father Myocardial infarction Alcohol abuse Heart disease CAD (coronary artery disease) Mother CVA (cerebral vascular accident) Hypertension Thrombosis Alcohol abuse Sister Lupus Surgical History Hx of bariatric surgery S/P H/O gastric bypass (~1999) Social History household members: other details: grandson housing: house current occupational status: retired and disabled history of recent travel: No Smoking Status: Former smoker Smokeless tobacco user: other alcohol intake: current alcohol intake frequency: 3 or more drinks per day details: Patient reports history of at 2-tall boys daily at least. substance use type: does not use what type of physical activity do you participate in: none and walking seatbelt use: always do you feel safe at home: Yes additional social history: single ROS ROS ED ROS Narrative Head pain Constitutional Constitutional ED: Denies chills or fever(s) Eyes Eyes: Denies blurry vision ENT ENT ED: Denies ear pain Cardiovascular Cardiovascular: Denies chest pain Respiratory/Chest Respiratory/Chest: Denies cough or dyspnea Gastrointestinal Gastrointestinal: Denies abdominal pain or constipation Genitourinary Genitourinary ED: Denies dysuria or hematuria Musculoskeletal Musculoskeletal: Denies arthralgias or back pain Integumentary Denies abscess Neurologic Neurologic: Reports headache(s) Endocrine Endocrinology: Denies polydipsia Hematologic/Lymphatic Hematologic/Lymphatic: Denies easy bleeding Allergic/Immunologic Allergic/Immunologic ED: Denies mouth swelling EXAM Physical Exam Narrative Exam Narrative: Well-appearing 64-year-old female. Vital signs are stable afebrile. HEENT exam pupils round react light. Extra motions are intact. No facial droop. Normal speech. Posterior pharynx moist and pink no erythema or exudate. No signs of trauma to her face or scalp. Nontender. No temporal arterial tenderness. Neck nontender. No meningismus. No lymphadenopathy. Normal range of motion. Back nontender. Lungs clear. Heart regular rhythm rate about 80 no murmur. Chest wall ribs nontender. Abdomen soft nontender. Moving all 4 extremities. Nontender no edema. Normal 5 out of 5 motor strength dorsi and plantarflexion intact. 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 NIH 0. Awake alert. Answer questions following commands. Normal speech. No facial droop. No drift. Benign exam. Const Vital Signs: 04/05/24 09:41 Temperature 97.6 F L Temperature Source Temporal Pulse Rate 78 Respiratory Rate 16 Blood Pressure 153/94 H Blood Pressure Mean 113 Pulse Ox 98 Oxygen Delivery Method Room Air Positive well nourished and well developed; Negative for obese, cachectic, contractures or unkempt General Appearance ED: well developed and NAD; Negative for unkempt, cachectic, contractures, cyanotic, diaphoretic or pallor Nutritional Appearance: Negative for cachectic or obese HEENT Reports normocephalic, TM's clear and moist mucous membranes atraumatic; Negative for trauma, tenderness, temporal artery tenderness or vesicular rash Face and Sinus: Negative for sinus tenderness Tympanic Membrane ED: Yes TM's clear Eyes PERRL and EOMs intact bilaterally General Eye ED: Negative for pale conjunctiva or scleral icterus Neck no lymphadenopathy, supple, no meningeal signs and no JVD General: Negative for tenderness Resp normal respiratory effort and clear to auscultation bilaterally Effort and Inspection: Negative for retractions Auscultation: Negative for rales, rhonchi, wheezes or diminished lung sounds Cardio regular rate, regular rhythm, S1 normal heart sound, S2 normal heart sound and no murmurs Rate: Negative for bradycardia or tachycardic Rhythm: Negative for abnormal rhythm GI non-tender and non-distended Auscultation: normoactive bowel sounds Palpation: soft; Negative for firm, tender or mass Back/Spine no CVA tenderness General Back: Negative for CVA tenderness Cervical Spine: Negative for cervical spine tenderness Thoracic Spine / Upper Back: Negative for thoracic spinal tenderness Lumbar Spine / Lower Back: Negative for lumbar spinal tenderness Extremity normal to inspection and full ROM General Extremety ED: Negative for edema or tenderness General Extremity: Negative for edema Neuro oriented x3 and CN's II-XII intact bilaterally Sensorium / Orientation: awake, alert, oriented to person, oriented to place and oriented to time; Negative for orientation impaired, lethargic or stuporous Coordination / Balance: [id number] test normal Speech: speech normal Motor Exam: strength 5/5 throughout Psych mental status grossly normal Appearance: Negative for unkempt Attitude: No agitated Mood & Affect: Negative for depressed or tearful Skin General Skin Exam: elasticity normal and turgor normal; Negative for jaundice or pallor Lesions: no lesions Rashes: no rashes Trauma: Negative for abrasion MDM MDM MDM Narrative Medical decision making narrative: 64-year-old female with head pain. Was seen 4 days ago had negative CAT scan and lab workup including a sed rate. There is no reproducible pain. She has a normal exam. She has had no trauma. She is using Tylenol at home for pain. She will be discharged home with outpatient follow-up. Discharge Plan Triage Chief Complaint: Headache ED Provider: Albert Carbone Dx/Rx/DC Orders Clinical Impression: Headache, History of anemia, History of post traumatic stress disorder, History of chronic pain Instructions: ED Headache Unspecified Prescriptions: No Action (DME) syringe with needle 1 mL 25 gauge x 1 syringe See Rx Instructions .ROUTE .MEDSUPPLY Qty: 100 Rx Instructions: As directed ergocalciferol (vitamin D2) 1,250 mcg (50,000 unit) capsule 50,000 unit PO Q2W mecobalamin (vitamin B12) 5,000 mcg tablet,disintegrating 5,000 mcg PO QWEEK Qty: 10 0RF temazepam 30 MG capsule 30 mg PO QHS Patient Comments: SLEEP cyclobenzaprine 10 mg tablet 20 mg PO TID Patient Comments: leg spasm lidocaine 5 % Adhesive Patch,Medicated 1 patch topical DAILY 14 Days Qty: 14 0RF Protocol: *Topical Application Instructions APPLICATION INSTRUCTIONS: Apply to painful areas ferrous gluconate 324 mg (37.5 mg iron) Tablet 324 mg PO BIDCM 30 Days Qty: 60 0RF triamterene-hydrochlorothiazid 37.5-25 mg capsule 1 cap PO DAILY 30 Days Qty: 90 1RF (DME) rollator walker with seat See Rx Instructions .Route .MEDSUPPLY Qty: 1 0RF Rx Instructions: As directed cyanocobalamin (vitamin B-12) 1,000 mcg/mL solution 1,000 mcg IM Q30D Qty: 1 2RF diclofenac sodium 1 % gel 4 g TOPICAL .QID Qty: 100 1RF Rx Instructions: apply to single knee, ankle, foot; for foot includes sole/toes/top of foot omeprazole 40 mg capsule,delayed release(DR/EC) 40 mg PO DAILY Qty: 90 1RF albuterol sulfate 90 mcg/actuation HFA aerosol inhaler 2 puff INHALATION Q4H PRN PRN (Reason: SOB, wheezing) Qty: 8.5 1RF Patient Comments: BREATHING valacyclovir [Valtrex] 500 mg tablet 500 mg PO DAILY Qty: 90 1RF Primary Care Provider: Stoney Hudson Chi Referrals: Stoney Hudson Chi, MD [Primary Care Provider] - 3-5 Days if not improving Activity Restrictions/Additional Instructions: Tylenol and Motrin for pain. Follow-up with your primary care physician if not improving. Print Language: Ethiopian Disposition Disposition: Home, Self Care
--- NOTE | 2024-04-05 10:09 | ED.RN ---
Patient refused to answer any questions, refused DC paperwork and refused to be registered.
== END 2024-04-05 10:10 | disposition home or self-care (01) ==
LOC: ED 10:09
PROVIDERS: Emergency Provider Emergency Medicine; PCP Family Medicine Geriatric Medicine; Visit Provider Emergency Medicine
DX: R51.9 Headache, unspecified (principal); I10 Essential (primary) hypertension; Z87.891 Personal history of nicotine dependence; G89.29 Other chronic pain; K21.9 Gastro-esophageal reflux disease without esophagitis; D64.9 Anemia, unspecified; F43.10 Post-traumatic stress disorder, unspecified
CPT/HCPCS: 99282

== ENCOUNTER → 2024-04-11 | Outpatient (CLI) | payer MEDICARE, MEDICAID, SELFPAY ==
[2024-04-16 17:06] LABS: HPV APTIMA, High Risk Negative (Negative)
== END | disposition home or self-care (01) ==
LOC: LABSPEC 16:32
PROVIDERS: PCP Family Medicine Geriatric Medicine; Referring Provider Nurse Practitioner Family; Visit Provider Nurse Practitioner Family
DX: Z12.4 Encounter for screening for malignant neoplasm of cervix (principal)
CPT/HCPCS: 87624; 88175; G0145

== ENCOUNTER → 2024-04-12 | Outpatient (CLI) | payer MEDICARE, MEDICAID, SELFPAY ==
--- NOTE | 2024-04-12 12:32 | MRI_ITS ---
STUDY: MRI BRAIN WITHOUT CONTRAST REASON FOR EXAM: Female, 64 years old. Headache, cluster headache TECHNIQUE: Standardized multiplanar fat and water weighted pulse sequences were obtained. COMPARISON: CT April 01, 2024. MRI June 22, 2021. FINDINGS: Normal size of the ventricles and extra-axial spaces for the patient''s age. There are a limited number of small white matter hyperintensities, distributed throughout the deep white matter tracts of the cerebral hemispheres, consistent with mild chronic white matter ischemic changes versus migraines. There is no evidence for recent intracranial ischemia or other cause of cytotoxic edema on diffusion weighted imaging (DWI). Normal T2* images of the brain without demonstrated susceptibility artifact. There is no demonstrated hemosiderin stain. Normal bilateral basal ganglia. Normal thalami. There is no extra-axial fluid accumulation. Normal flow voids within the major intracranial circulation suggesting patency by spin echo criteria. Normal sella turcica, pituitary gland, infundibular stalk, optic chiasm and hypothalamus. Normal tectal plate and pineal gland. Normal midbrain, anatoly and medulla. Normal cerebellum. Normal basal cisterns. There is mild bilateral mastoid fluid. Normal bilateral internal auditory canals. No demonstrated orbital abnormality, within the constraints of a routine brain study. Normal visualized paranasal sinuses. Normal calvarium and skull base. Normal visualized soft tissue structures. Normal visualized upper cervical spine. MRI/Brain without Contrast IMPRESSION: No acute intracranial abnormality. Mild white matter signal alteration suggesting microangiopathy versus migraines Electronically Signed: Varun Kerr MD at 22:08 EDT ,
== END | disposition home or self-care (01) ==
LOC: MRI 12:23
PROVIDERS: PCP Family Medicine Geriatric Medicine; Referring Provider Family Medicine Geriatric Medicine; Visit Provider Family Medicine Geriatric Medicine
DX: G44.009 Cluster headache syndrome, unspecified, not intractable (principal)
CPT/HCPCS: 70551

== ENCOUNTER → 2024-04-19 | Outpatient (CLI) | payer MEDICARE, MEDICAID, SELFPAY ==
[2024-04-19 13:59] LABS: Absolute Lymphocyte Count 2.47 X10^3/uL (0.83-4.51); Absolute Neutrophil Count 3.5 X10^3/uL (2.0-7.7); Basophil# 0.03 X10^3/uL; Basophil% 0.5 % (0-1); Eosinophil# 0.13 X10^3/uL; Hematocrit 37.4 % (37-47); Hemoglobin 12.4 g/dL (12.0-15.0); Lymphocyte # 2.47 X10^3/ul (0.83-4.51); Lymphocyte % 37.9 % (19-41); Mean Corp Hgb Conc 33.2 g/dL (32-36); Mean Corpuscular Hgb 27.6 pg (27.0-32.0); Mean Corpuscular Volume 83.1 fL (81-99); Mean Platelet Vol. 9.4 fl (6.2-12.0); Monocyte# 0.38 X10^3/uL; Monocyte% 5.8 % (0-10); NRBC Flagged by Analyzer 0 % (0-5); Neutrophil # 3.49 X10^3/uL (2.7-7.7); Neutrophil % 53.6 % (47-70); POSITIVE MORPHOLOGY YES; Platelet Count 237 K/mm3 (150-450); RBC Distribution Width CV 16.1 % (11.6-14.6); RBC Distribution Width SD 48.9 fl (35.1-43.9); White Blood Count 6.5 K/mm3 (4.4-11.0)
[2024-04-19 14:00] LABS: Differential Indicated SCAN CRITERIA MET
[2024-04-19 14:28] LABS: Vitamin B12 606 pg/mL (211-911)
[2024-04-19 14:33] LABS: ALB/GLOB Ratio 0.9 RATIO (0.9-2.4); AST(SGOT) 26 U/L (15-37); Alanine Aminotransfer ALT/SGPT 16 U/L (13-56); Albumin, Serum 3.3 g/dL (3.2-5.0); Alkaline Phosphatase 93 U/L (45-117); Anion Gap 5 (5-15); BUN 14 mg/dL (7-18); BUN/Creat Ratio 13.6 RATIO (10-20); Chloride 109 mmol/L (98-107); Cholesterol 223 mg/dL (200); Creatinine, Serum 1.03 mg/dL (0.55-1.02); EST Glomerular Filtration Rate 57 mL/min (>60); Est Glom Filt Rate - Afr Amer 69 mL/min (>60); Globulin 3.7 g/dL (2.2-4.2); Glucose 116 mg/dL (74-106); High Density Lipoprotein 121 mg/dL; Potassium 4.1 mmol/L (3.5-5.1); Sodium Level 137 mmol/L (136-145); Triglycerides 214 mg/dL; Very Low Density Lipoprotein 43 mg/dL (5-40)
== END | disposition home or self-care (01) ==
LOC: POLAB3 13:47
PROVIDERS: PCP Family Medicine Geriatric Medicine; Visit Provider Family Medicine Geriatric Medicine
DX: E53.8 Deficiency of other specified B group vitamins (principal); E55.9 Vitamin D deficiency, unspecified; E78.5 Hyperlipidemia, unspecified; R53.83 Other fatigue
CPT/HCPCS: 36415; 80053; 80061; 82306; 82607; 84443; 85025

== ENCOUNTER → 2024-07-19 | Outpatient (CLI) | payer MEDICARE, MEDICAID, SELFPAY ==
[2024-07-19 15:53] LABS: Absolute Lymphocyte Count 1.98 X10^3/uL (0.83-4.51); Absolute Neutrophil Count 1.1 X10^3/uL (2.0-7.7); Basophil# 0.03 X10^3/uL; Basophil% 0.9 % (0-1); Eosinophil# 0.08 X10^3/uL; Eosinophils% 2.3 % (0-5); Hematocrit 30.8 % (37-47); Hemoglobin 9.9 g/dL (12.0-15.0); Lymphocyte # 1.98 X10^3/ul (0.83-4.51); Lymphocyte % 57.4 % (19-41); Mean Corp Hgb Conc 32.1 g/dL (32-36); Mean Corpuscular Hgb 26.5 pg (27.0-32.0); Mean Corpuscular Volume 82.4 fL (81-99); Monocyte# 0.25 X10^3/uL; Monocyte% 7.2 % (0-10); NRBC Flagged by Analyzer 0 % (0-5); Neutrophil # 1.11 X10^3/uL (2.7-7.7); Neutrophil % 32.2 % (47-70); Platelet Count 325 K/mm3 (150-450); RBC Distribution Width CV 15.9 % (11.6-14.6); RBC Distribution Width SD 47.5 fl (35.1-43.9); Red Blood Count 3.74 M/mm3 (4.2-5.4); White Blood Count 3.5 K/mm3 (4.4-11.0)
[2024-07-19 16:27] LABS: ALB/GLOB Ratio 0.9 RATIO (0.9-2.4); AST(SGOT) 21 U/L (15-37); Alanine Aminotransfer ALT/SGPT 20 U/L (13-56); Albumin, Serum 3.2 g/dL (3.2-5.0); Alkaline Phosphatase 95 U/L (45-117); Anion Gap 3 (5-15); BUN 10 mg/dL (7-18); BUN/Creat Ratio 10.8 RATIO (10-20); Chloride 110 mmol/L (98-107); Cholesterol 210 mg/dL (200); Creatinine, Serum 0.93 mg/dL (0.55-1.02); EST Glomerular Filtration Rate 65 mL/min (>60); Est Glom Filt Rate - Afr Amer 78 mL/min (>60); Globulin 3.4 g/dL (2.2-4.2); Glucose 100 mg/dL (74-106); High Density Lipoprotein 114 mg/dL; Protein, Total 6.6 g/dL (6.4-8.2); Sodium Level 138 mmol/L (136-145); Triglycerides 124 mg/dL; Very Low Density Lipoprotein 25 mg/dL (5-40)
== END | disposition home or self-care (01) ==
LOC: POLAB3 15:41
PROVIDERS: PCP Family Medicine Geriatric Medicine; Visit Provider Family Medicine Geriatric Medicine
DX: E78.5 Hyperlipidemia, unspecified (principal); R53.83 Other fatigue
CPT/HCPCS: 36415; 80053; 80061; 84443; 85025

== ENCOUNTER → 2024-07-20 | Outpatient (CLI) | payer MEDICARE, MEDICAID, SELFPAY ==
[2024-07-20 13:32] LABS: Platelet Count 309 K/mm3 (150-450); RET-HE 23.5 pg (30-35); Reticulocyte Count 1.38 % (0.5-1.5)
[2024-07-20 13:55] LABS: Vitamin B12 671 pg/mL (211-911)
[2024-07-20 14:05] LABS: Ferritin 8 ng/mL (8-252); Iron 19 ug/dL (50-170); Iron Binding Capacity,Total 402 ug/dL (250-450); PERCENT IRON SATURATION 4.7 % (15.0-55.0)
== END | disposition home or self-care (01) ==
LOC: POLAB3 13:16
PROVIDERS: PCP Family Medicine Geriatric Medicine; Visit Provider Family Medicine Geriatric Medicine
DX: D64.9 Anemia, unspecified (principal); E53.8 Deficiency of other specified B group vitamins
CPT/HCPCS: 36415; 82607; 82728; 82746; 83540; 83550; 85045

== ENCOUNTER 2024-08-26 16:34 | Emergency (ER) | payer MEDICARE, MEDICAID, SELFPAY ==
[2024-08-26 16:35] VITALS: PULSE 103; RESP 18; TEMP 36.6; O2SAT 100
--- NOTE | 2024-08-26 16:42 | EX.ED.DYSGE1 ---
HPI History of Present Illness Chief Complaint: General Illness [facility] Medical History (Updated 08/26/24 @ 19:[address] Jeniffer Campos MD) Chronic kidney disease (CKD), stage III (moderate) Vitamin D deficiency Hyperlipidemia GERD (gastroesophageal reflux disease) PTSD (post-traumatic stress disorder) Tobacco use ETOH abuse Iron (Fe) deficiency anemia History of GI bleed Iron deficiency Insomnia Anxiety and depression Obesity (BMI 30-39.9) TMJ (temporomandibular joint syndrome) Chronic pain Hypertension ADHD (attention deficit hyperactivity disorder) Postsurgical malabsorption, not elsewhere classified B12 deficiency Anemia PUD (peptic ulcer disease) Home Medications ?Medication ?Instructions ?Recorded ?Last Taken ?Type rollator walker with seat #1 ea 10/09/20 Unknown Rx cyanocobalamin (vitamin B-12) 1,000 mcg IM Q30D #1 mL 12/20/20 Unknown Rx 1,000 mcg/mL injection solution diclofenac sodium 1 % topical gel 4 g topical .QID #100 grams 03/03/21 Unknown Rx syringe with needle 1 mL 25 gauge #100 ea 03/05/21 Unknown History x 1 albuterol sulfate 90 mcg/actuation 2 puff inhalation Q4H PRN PRN SOB, 04/16/21 Unknown Rx aerosol inhaler wheezing #8.5 grams valacyclovir 500 mg tablet 500 mg PO DAILY Herpes Flare #90 10/28/21 Unknown Rx (Valtrex) tabs ferrous gluconate 324 mg (37.5 mg 324 mg PO BIDCM 30 days #60 tabs 02/16/23 Unknown Rx iron) tablet lidocaine 5 % topical patch 1 patch topical DAILY 14 days #14 02/16/23 Unknown Rx ea triamterene 37.5 1 cap PO DAILY 30 days #90 caps 02/16/23 Unknown Rx mg-hydrochlorothiazide 25 mg capsule cholecalciferol (vitamin D3) 25 25 mcg PO QDAY 07/24/24 Unknown History mcg (1,000 unit) capsule cyclobenzaprine 10 mg tablet 10 mg PO TID 07/24/24 Unknown History vonoprazan 20 mg tablet (Voquezna) 20 mg PO QDAY 07/24/24 Unknown History duloxetine 30 mg capsule,delayed 30 mg PO QDAY #14 caps 08/22/24 Unknown Rx release duloxetine 60 mg capsule,delayed 60 mg PO QDAY #30 caps 08/22/24 Unknown Rx release Allergy/AdvReac Type Severity Reaction Status Date / Time buprenorphine (From Butrans) Allergy Rash Verified 08/26/24 16:37 NSAIDS (Non-Steroidal AdvReac Nausea Verified 08/26/24 16:37 Anti-Inflamma Family History Father Myocardial infarction Alcohol abuse Heart disease CAD (coronary artery disease) Mother CVA (cerebral vascular accident) Hypertension Thrombosis Alcohol abuse Sister Lupus Surgical History Hx of bariatric surgery S/P H/O gastric bypass (~1999) Social History (Updated 04/11/24 @ 14:34 by Bette Mcwilliams) household members: other details: grandson housing: house current occupational status: retired and disabled history of recent travel: No sexually active: No Smoking Status: Former smoker Smokeless tobacco user: other alcohol intake: current alcohol intake frequency: 3 or more drinks per day details: Patient reports history of at 2-tall boys daily at least. substance use type: does not use what type of physical activity do you participate in: none and walking seatbelt use: always do you feel safe at home: Yes additional social history: single EXAM Physical Exam Const Vital Signs: 08/26/24 16:35 Temperature 97.8 F Temperature Source Oral Pulse Rate 103 H Respiratory Rate 18 Pulse Ox 100 Oxygen Delivery Method Room Air [facility] MDM Narrative Medical decision making narrative: HISTORY OF PRESENT ILLNESS: 64-year-old female here with complaints of cough, chills and diffuse weakness. Denies focal weakness. Patient notes that she has been sick for the last 2 days. Has felt diffusely weak and has had a cough and chills. Denies chest pain and shortness of breath. Denies sick contacts. Denies any bleeding diathesis. Denies any urinary complaints. REVIEW OF SYSTEMS: Pertinent positives: Cough, chills Pertinent negatives: PHYSICAL EXAM: Nursing triage notes reviewed, Vital signs reviewed Constitutional: please see mdm HENT: MMM Eyes: Pupils equal round and reactive to light, Extraocular muscles intact Neck: No stridor, no JVD, full neck ROM Lungs: Clear to auscultation, No wheezing or rales. No increased work of breathing, no conversational dyspnea, no accessory muscle use, no nasal flaring. No respiratory distress noted Heart: Regular rate and rhythm, No murmurs, No rubs and No gallops, 2+ distal pulses (radial, femoral, posterior tibial) in all extremities Abdomen: Soft, there is no tenderness, rigidity, rebound or guarding, no obvious peritoneal signs, no palpable pulsatile abdominal masses, no auscultated abdominal bruit : No CVAT Extremities: No edema Neuro: Alert, oriented person place and time. Neuroexam at baseline. No new focal neurological deficits, cranial nerves II through XII intact, 5/5 strength in all present extremities. Intact sensation to light touch in all present extremities, 2+ reflexes bilateral patella tendons. Normal gait. Skin: No rash or lesions noted MEDICAL DECISION MAKING: Chief Complaint: Diffuse weakness, cough External records reviewed: Reviewed prior imaging studies. Reviewed prior medical problems Factors affecting care: Hyperlipidemia, GERD, hypertension, history bariatric Social determinants of health: none History obtained from others: none Consults: Hospitalist (Dr. Campos) MDM Narrative: Patient was initially hypotensive with blood pressure 89/61, tachycardic with a pulse rate of 103, otherwise afebrile nontoxic-appearing saturating well on room air. Given initial abnormal vital signs, multiple SIRS criteria was concerned about sepsis so a broad lab and imaging workup were obtained including a lactate, blood and urine cultures. The patient was initially resuscitated 1 L normal saline. I considered the following differential diagnosis: Sepsis, UTI, pneumonia, arrhythmia, COVID, RSV, flu, ALL IMAGES (IF OBTAINED) HAVE BEEN PERSONALLY REVIEWED AND INTERPRETED BY MYSELF. EKG with normal sinus rhythm rate 82, normal axis, no intervals, no STEMI CBC with no leukocytosis, mild anemia improved from baseline, no thrombocytopenia No coagulopathy noted BMP with mild hyponatremia, signs of renal insufficiency and dehydration, no sign of metabolic acidosis or endorgan hypoperfusion with normal bicarb and anion gap LFTs show no evidence of hepatobiliary pathology. Urinalysis shows no evidence of urinary inflammation suggestive of UTI I have personally reviewed the patient's chest x-ray. Chest x-ray is unremarkable for pulmonary edema, pneumothorax, pneumonia or focal cardiopulmonary abnormality. COVID flu RSV swab positive for flu A. On reevaluation after 1 L normal saline and the patient's blood pressure improved to 114/84, heart rate improved to 82. Patient [place] afebrile. She is ambulate without significant hypoxia. She ambulated with a pulse ox of 91%. I did discuss the case with the hospitalist Dr. Campos who noted the patient is at sc criteria for inpatient admission. States patient would need to have a pulse ox of 88%. I discussed this with the patient. She was alert and orient x 3 had capacity to make her medical decisions. She chose to be discharged home with close outpatient follow-up. Did prescribe Tamiflu given her advanced age and multiple medical comorbidities as well as her symptoms starting approximately 48 hours prior to arrival. I encouraged copious p.o. intake. Wrote Zofran as needed for nausea. Encouraged Tylenol and ibuprofen. The patient and/or family, caregivers express understanding. The patient and/or family, caregivers agrees with the plan. Shared decision making: I will have a discussion with the patient and or visitors regarding risk/benefits of further testing or admission. They will be made aware of of the risk/benefits inherent in this decision they will be given the opportunity to voice understanding. Total critical care time today provided was at least 0 minutes. This excludes separately billable procedures. Critical care time (if documented) is secondary to the patient having high probability of clinically significant/life threatening deterioration in the patient's condition which required my urgent intervention. Impression: 1. Weakness 2. Hypotension (resolved) 3. Influenza A Dispo: Discharge home This note was generated with [employer] dictation software. It may contain incorrect words, spelling, and punctuation that were not noted in review of the chart prior to signing. Discharge Plan Triage Chief Complaint: General Illness ED Provider: Duglas Ariza Dx/Rx/DC Orders Prescriptions: No Action (DME) syringe with needle 1 mL 25 gauge x 1 syringe See Rx Instructions .ROUTE .MEDSUPPLY Qty: 100 Rx Instructions: As directed Voquezna 20 mg tablet 20 mg PO QDAY cholecalciferol (vitamin D3) 25 mcg (1,000 unit) capsule 25 mcg PO QDAY duloxetine 30 mg capsule,delayed release(DR/EC) 30 mg PO QDAY Qty: 14 1RF duloxetine 60 mg capsule,delayed release(DR/EC) 60 mg PO QDAY Qty: 30 1RF cyclobenzaprine 10 mg tablet 10 mg PO TID Patient Comments: leg spasm lidocaine 5 % Adhesive Patch,Medicated 1 patch topical DAILY 14 Days Qty: 14 0RF Protocol: *Topical Application Instructions APPLICATION INSTRUCTIONS: Apply to painful areas ferrous gluconate 324 mg (37.5 mg iron) Tablet 324 mg PO BIDCM 30 Days Qty: 60 0RF triamterene-hydrochlorothiazid 37.5-25 mg capsule 1 cap PO DAILY 30 Days Qty: 90 1RF (DME) rollator walker with seat See Rx Instructions .Route .MEDSUPPLY Qty: 1 0RF Rx Instructions: As directed cyanocobalamin (vitamin B-12) 1,000 mcg/mL solution 1,000 mcg IM Q30D Qty: 1 2RF diclofenac sodium 1 % gel 4 g TOPICAL .QID Qty: 100 1RF Rx Instructions: apply to single knee, ankle, foot; for foot includes sole/toes/top of foot albuterol sulfate 90 mcg/actuation HFA aerosol inhaler 2 puff INHALATION Q4H PRN PRN (Reason: SOB, wheezing) Qty: 8.5 1RF Patient Comments: BREATHING valacyclovir [Valtrex] 500 mg tablet 500 mg PO DAILY Qty: 90 1RF Primary Care Provider: Stoney Hudson Chi Referrals: Stoney Hudson Chi, MD [Primary Care Provider] - Print Language: Bulgarian
[2024-08-26 17:03] VITALS: BP 89/61; PULSE 104; RESP 18; TEMP 37.2; O2SAT 98
--- NOTE | 2024-08-26 17:06 | EKG12_ITS ---
Test Reason : Blood Pressure : */* mmHG Vent. Rate : 82 BPM Atrial Rate : 82 BPM P-R Int : 142 ms QRS Dur : 72 ms QT Int : 394 ms P-R-T Axes : 61 14 67 degrees QTcB Int : 460 ms Normal sinus rhythm Right atrial enlargement Borderline ECG Confirmed by TERRANCE WOO, JULIO ([id number]), production editor ENZO STANFORD ([id number]) on 08/29/2024 6:13:58 AM Referred By: Confirmed By: JULIO CARLOS MD
[2024-08-26 17:20] LABS: Absolute Neutrophil Count 1.8 X10^3/uL (2.0-7.7); Basophil# 0.02 X10^3/uL; Basophil% 0.6 % (0-1); Hematocrit 35.4 % (37-47); Hemoglobin 11.4 g/dL (12.0-15.0); Lymphocyte % 37.7 % (19-41); Mean Corp Hgb Conc 32.2 g/dL (32-36); Mean Corpuscular Hgb 23.9 pg (27.0-32.0); Mean Corpuscular Volume 74.2 fL (81-99); Monocyte# 0.35 X10^3/uL; Monocyte% 10.1 % (0-10); NRBC Flagged by Analyzer 0 % (0-5); Neutrophil # 1.77 X10^3/uL (2.7-7.7); Neutrophil % 51.3 % (47-70); Platelet Count 253 K/mm3 (150-450); RBC Distribution Width CV 16.7 % (11.6-14.6); RBC Distribution Width SD 44.5 fl (35.1-43.9); Red Blood Count 4.77 M/mm3 (4.2-5.4); White Blood Count 3.5 K/mm3 (4.4-11.0)
[2024-08-26 17:28] LABS: International Normalized Ratio 0.9; Prothrombin Time (Protime)PT. 11.8 SECONDS (11.7-14.9)
[2024-08-26 17:29] LABS: Partial Thromboplast Time 27.5 Seconds (24.1-36.2)
[2024-08-26 17:36] LABS: ALB/GLOB Ratio 0.8 RATIO (0.9-2.4); AST(SGOT) 37 U/L (15-37); Alanine Aminotransfer ALT/SGPT 20 U/L (13-56); Albumin, Serum 3.4 g/dL (3.2-5.0); Alkaline Phosphatase 100 U/L (45-117); Anion Gap 9 (5-15); BUN 16 mg/dL (7-18); BUN/Creat Ratio 12.5 RATIO (10-20); Calcium,Total 9.3 mg/dL (8.5-10.1); Chloride 102 mmol/L (98-107); Creatinine, Serum 1.28 mg/dL (0.55-1.02); EST Glomerular Filtration Rate 45 mL/min (>60); Est Glom Filt Rate - Afr Amer 54 mL/min (>60); Glucose 103 mg/dL (74-106); Potassium 3.8 mmol/L (3.5-5.1); Protein, Total 7.4 g/dL (6.4-8.2); Sodium Level 134 mmol/L (136-145)
[2024-08-26 17:46] LABS: Lactic Acid 1.3 mmol/L (0.4-1.9)
[2024-08-26] MEDS: Ondansetron 4 MG/2 ML Vial IV (17:54)
[2024-08-26] MEDS: 0.9% Normal Saline (1000mL) 1,000 ML 999 ML IV (17:54)
[2024-08-26 17:57] VITALS: BMI 25.9
[2024-08-26 18:16] VITALS: BP 114/84; PULSE 82; RESP 19; TEMP 36.7; O2SAT 97
--- NOTE | 2024-08-26 18:20 | RAD_ITS ---
INDICATION: SOB EXAMINATION/TECHNIQUE: X-RAY - XR Chest 1 View COMPARISON: 04/01/2024. FINDINGS: The lungs are clear. Tortuous and calcified thoracic aorta. The heart is not enlarged. No pleural effusion or pneumothorax. No acute osseous abnormalities. RAD/Chest 1 View (Portable) IMPRESSION: No acute radiographic abnormalities. Electronically Signed: Orlin Dan MD at 20:10 EST ,
[2024-08-26 19:31] VITALS: O2SAT 98
[2024-08-26 19:38] LABS: Mucous, Urine 0 SEEN /hpf (<or=2+); White Blood Cells 0 SEEN /hpf (0-5)
[2024-08-26 19:39] LABS: Color, Urine Yellow (Yellow); Glucose, Dipstick Normal (Normal); Ketone-Dipstick 15 mg/dl (Negative); Leukocyte Esterase-Dipstick Negative /ul (Negative); Nitrite-Dipstick Negative (Negative); Occult Blood-Urine 10 /ul (Negative); Protein-Dipstick 15 mg/dl (Negative); Specific Gravity, Urine 1.015 (1.002-1.030); Urine Bilirubin Dipstick Negative (Negative); Urine Clarity Clear (Clear); Urine Urobilinogen Normal (Normal)
[2024-08-26 19:55] LABS: Bacteria RARE /hpf (None Seen); Red Blood Cells-Urine 0-5 SEEN /hpf (0-5); Squamous Epithelial Cells - UA 0-5 SEEN /hpf (5-10)
[2024-08-26 20:00] VITALS: BP 95/46; PULSE 83; RESP 20; O2SAT 96
[2024-08-26] MEDS: Ketorolac 15 MG/ML Vial IV (20:28)
--- NOTE | 2024-08-26 20:39 | ED.RN ---
pt left with family members prior to shot time completion.
== END 2024-08-26 20:40 | disposition home or self-care (01) ==
PROVIDERS: Emergency Provider Emergency Medicine; PCP Family Medicine Geriatric Medicine; Visit Provider Emergency Medicine
DX: J10.1 Influenza due to other identified influenza virus with other respiratory manifestations (principal); N18.30 Chronic kidney disease, stage 3 unspecified; Z87.891 Personal history of nicotine dependence
CPT/HCPCS: 71045; 80053; 81001; 83605; 85025; 85610; 85730; 87040; 87086; 87088; 87631; 93005; 99284; A4216; J2405

== ENCOUNTER 2025-01-25 12:45 | Inpatient (IN) | payer MEDICARE, MEDICAID, SELFPAY ==
[2025-01-25] VITALS (31 sets, daily range): BP systolic 91–138; BP diastolic 47–101; PULSE 63–105; RESP 12–32; TEMP 36.6–36.9; O2SAT 94–100; BMI 24.3; BMI 24.5
[2025-01-25 13:27] LABS: Absolute Lymphocyte Count 2.05 X10^3/uL (0.83-4.51); Absolute Neutrophil Count 1.6 X10^3/uL (2.0-7.7); Basophil# 0.02 X10^3/uL; Basophil% 0.5 % (0-1); Eosinophil# 0.06 X10^3/uL; Eosinophils% 1.5 % (0-5); Hematocrit 29.7 % (37-47); Lymphocyte # 2.05 X10^3/ul (0.83-4.51); Lymphocyte % 50.4 % (19-41); Mean Corp Hgb Conc 30.3 g/dL (32-36); Mean Corpuscular Hgb 19.9 pg (27.0-32.0); Mean Corpuscular Volume 65.7 fL (81-99); Mean Platelet Vol. 9.7 fl (6.2-12.0); Monocyte# 0.36 X10^3/uL; Monocyte% 8.8 % (0-10); NRBC Flagged by Analyzer 0 % (0-5); Neutrophil # 1.57 X10^3/uL (2.7-7.7); Neutrophil % 38.6 % (47-70); POSITIVE COUNT YES; RBC Distribution Width CV 18.8 % (11.6-14.6); RBC Distribution Width SD 42.5 fl (35.1-43.9); Red Blood Count 4.52 M/mm3 (4.2-5.4); White Blood Count 4.1 K/mm3 (4.4-11.0)
[2025-01-25 14:26] LABS: Differential Indicated SCAN CRITERIA MET; Lipase 44 U/L (13-75)
[2025-01-25 14:27] LABS: Platelet Estimate ADEQUATE (ADEQ)
[2025-01-25 14:39] LABS: ALB/GLOB Ratio 1.4 RATIO (0.9-2.4); AST(SGOT) 30 U/L (<=31); Alanine Aminotransfer ALT/SGPT 15 U/L (<=34); Albumin, Serum 4.3 g/dL (3.4-4.8); Alkaline Phosphatase 104 U/L (35-104); Anion Gap 13 (5-15); BUN 17 mg/dL (4-19); Calcium,Total 9.6 mg/dL (7.6-11.0); Carbon Dioxide 19.7 mmol/L (21.0-32.0); Chloride 102 mmol/L (98-108); Creatinine, Serum 1.09 mg/dL (0.70-1.20); EST Glomerular Filtration Rate 57 (>60); Estimated Creatinine Clearance 48.81 ml/min (50-250); Globulin 3.1 g/dL (2.2-4.2); Glucose 101 mg/dL (70-99); Potassium 4.2 mmol/L (3.3-5.1); Protein, Total 7.4 g/dL (5.9-8.4); Sodium Level 135 mmol/L (133-145); Total Bilirubin 0.24 mg/dL (0.00-1.30)
--- NOTE | 2025-01-25 14:40 | RAD_ITS ---
PROCEDURE: CHEST PA AND LATERAL 01/25/2025 REASON FOR EXAM: SOB, RAMIREZ TECHNIQUE: CHEST PA AND LATERAL COMPARISON: Chest x-ray of 08/26/2024. RAD/Chest PA and Lateral IMPRESSION: The cardiomediastinal silhouette is stable, with a somewhat tortuous ascending aorta appearing unchanged. No evidence of cardiomegaly. Subtle left lower lobe airspace disease is seen, with differential diagnosis in cluding Pneumonitis and (less likely given the appearance) atelectasis. No pleural effusion or pneumothorax is seen. No interval osseous change is seen. Reading Location: [place] [id number]
--- NOTE | 2025-01-25 14:41 | EX.ED.DYSGE1 ---
HPI History of Present Illness Chief Complaint: Dizziness Informant: patient Narrative Narrative: Patient is a 64-year-old female with history of GERD, alcohol abuse, hypertension, CKD 3, chronic pain and history of GI bleeding requiring blood transfusion in the past presenting with 1 week of increased generalized malaise, and dizziness (described as a near syncopal sensation), shortness of breath and dyspnea on exertion. She denies any swelling of her legs. She she feels mildly short of breath at rest but is worse when she tries to do things. She notes that few weeks ago she was having black stools however that is cleared up. She is her last bowel movement was a couple days ago. She denies any recent vomiting but does have nausea. She states she has chronic abdominal pain in her left upper quadrant and is complaining of pain in this area as well. States seems to be worse when she has a bleeding ulcer. She does have a history of gastric. She came in for further evaluation with [facility] Medical History (Updated 01/26/25 @ 00:[address] Gila Reeves, DO) Depression Anxiety Smoker Migraines TIA (transient ischemic attack) Chronic kidney disease (CKD), stage III (moderate) Vitamin D deficiency Hyperlipidemia GERD (gastroesophageal reflux disease) PTSD (post-traumatic stress disorder) Tobacco use ETOH abuse Iron (Fe) deficiency anemia History of GI bleed Chest pain Iron deficiency Insomnia Anxiety and depression Obesity (BMI 30-39.9) TMJ (temporomandibular joint syndrome) Chronic pain Hypertension ADHD (attention deficit hyperactivity disorder) Postsurgical malabsorption, not elsewhere classified B12 deficiency Anemia PUD (peptic ulcer disease) Home Medications ?Medication ?Instructions ?Recorded ?Last Taken ?Type rollator walker with seat #1 ea 10/09/20 Unknown Rx cyanocobalamin (vitamin B-12) 1,000 mcg IM Q30D #1 mL 12/20/20 Unknown Rx 1,000 mcg/mL injection solution syringe with needle 1 mL 25 gauge #100 ea 03/05/21 Unknown History x 1 valacyclovir 500 mg tablet 500 mg PO DAILY Herpes Flare #90 10/28/21 01/23/25 Rx (Valtrex) tabs triamterene 37.5 1 cap PO DAILY 30 days #90 caps 02/16/23 Unknown Rx mg-hydrochlorothiazide 25 mg capsule cholecalciferol (vitamin D3) 25 25 mcg PO DAILY 07/24/24 Unknown History mcg (1,000 unit) capsule cyclobenzaprine 10 mg tablet 10 mg PO TID 07/24/24 Unknown History mirtazapine 7.5 mg tablet 7.5 mg PO QHS #30 tabs 10/10/24 Unknown Rx venlafaxine 75 mg capsule,extended 75 mg PO QAM #30 caps 12/15/24 Unknown Rx release 24 hr albuterol sulfate 90 mcg/actuation 2 puff inhalation Q4H PRN SOB, 01/25/25 01/23/25 History aerosol inhaler wheezing Allergy/AdvReac Type Severity Reaction Status Date / Time buprenorphine (From [place]) Allergy Rash Verified 01/25/25 19:32 NSAIDS (Non-Steroidal AdvReac Nausea Verified 01/25/25 19:32 Anti-Inflamma Family History Father Myocardial infarction Alcohol abuse Heart disease CAD (coronary artery disease) Mother CVA (cerebral vascular accident) Hypertension Thrombosis Alcohol abuse Sister Lupus Surgical History Hx of bariatric surgery S/P H/O gastric bypass (~1999) Social History household members: other details: grandson housing: house current occupational status: retired and disabled history of recent travel: No sexually active: No Smoking Status: Former smoker Smokeless tobacco user: other alcohol intake: current alcohol intake frequency: 3 or more drinks per day details: Patient reports history of at 2-tall boys daily at least. substance use type: does not use what type of physical activity do you participate in: none and walking seatbelt use: always do you feel safe at home: Yes additional social history: single ROS ROS ED Constitutional Constitutional ED: Denies chills or fever(s) ENT ENT ED: Denies sore throat Cardiovascular Cardiovascular: Denies chest pain Respiratory/Chest Respiratory/Chest: Reports cough, dyspnea and dyspnea on exertion Gastrointestinal Gastrointestinal: Reports abdominal pain, melena and nausea; Denies constipation Musculoskeletal Musculoskeletal: Denies arthralgias or myalgias Integumentary Denies rash Neurologic Neurologic: Reports headache(s) and weakness Psychiatric Psychiatric: Reports anxiety Hematologic/Lymphatic Hematologic/Lymphatic: Denies easy bleeding or easy bruising EXAM Physical Exam Const Vital Signs: 01/25/25 12:45 01/25/25 13:45 01/25/25 14:00 Temperature 98.4 F Temperature Source Temporal Pulse Rate 105 H 91 89 Pulse Rate [Lying] Pulse Rate [Sitting (for 1 minute prior to obtaining)] Pulse Rate [Standing (for 1 minute prior to obtaining)] Respiratory Rate 17 18 16 Blood Pressure 118/82 H 121/74 H 123/85 H Blood Pressure [Lying] Blood Pressure [Sitting (for 1 minute prior to obtaining)] Blood Pressure [Standing (for 1 minute prior to obtaining)] Blood Pressure Mean 94 89 97 Blood Pressure Mean [Lying] Blood Pressure Mean [Sitting (for 1 minute prior to obtaining)] Blood Pressure Mean [Standing (for 1 minute prior to obtaining)] Pulse Ox 100 99 97 Oxygen Delivery Method Room Air Room Air Room Air 01/25/25 14:30 01/25/25 14:39 01/25/25 14:45 Temperature Temperature Source Pulse Rate 87 Pulse Rate [Lying] Pulse Rate [Sitting (for 1 minute prior to obtaining)] Pulse Rate [Standing (for 1 minute prior to obtaining)] Respiratory Rate 25 H Blood Pressure 123/85 H 138/101 H Blood Pressure [Lying] Blood Pressure [Sitting (for 1 minute prior to obtaining)] Blood Pressure [Standing (for 1 minute prior to obtaining)] Blood Pressure Mean 97 114 Blood Pressure Mean [Lying] Blood Pressure Mean [Sitting (for 1 minute prior to obtaining)] Blood Pressure Mean [Standing (for 1 minute prior to obtaining)] Pulse Ox 100 Oxygen Delivery Method 01/25/25 14:45 01/25/25 14:46 01/25/25 15:00 Temperature Temperature Source Pulse Rate 92 Pulse Rate [Lying] 91 Pulse Rate [Sitting (for 1 minute prior to obtaining)] 95 Pulse Rate [Standing (for 1 minute prior to obtaining)] 99 Respiratory Rate 16 Blood Pressure 138/101 H Blood Pressure [Lying] 131/85 H Blood Pressure [Sitting (for 1 minute prior to obtaining)] 110/68 Blood Pressure [Standing (for 1 minute prior to obtaining)] 120/83 H Blood Pressure Mean 114 Blood Pressure Mean [Lying] 100 Blood Pressure Mean [Sitting (for 1 minute prior to obtaining)] 82 Blood Pressure Mean [Standing (for 1 minute prior to obtaining)] 95 Pulse Ox Oxygen Delivery Method 01/25/25 15:00 01/25/25 15:02 01/25/25 15:04 Temperature Temperature Source Pulse Rate 89 96 103 H Pulse Rate [Lying] Pulse Rate [Sitting (for 1 minute prior to obtaining)] Pulse Rate [Standing (for 1 minute prior to obtaining)] Respiratory Rate 19 H 17 25 H Blood Pressure 131/85 H 110/68 120/83 H Blood Pressure [Lying] Blood Pressure [Sitting (for 1 minute prior to obtaining)] Blood Pressure [Standing (for 1 minute prior to obtaining)] Blood Pressure Mean 98 77 95 Blood Pressure Mean [Lying] Blood Pressure Mean [Sitting (for 1 minute prior to obtaining)] Blood Pressure Mean [Standing (for 1 minute prior to obtaining)] Pulse Ox Oxygen Delivery Method 01/25/25 15:15 01/25/25 15:30 01/25/25 15:30 Temperature Temperature Source Pulse Rate 92 92 Pulse Rate [Lying] Pulse Rate [Sitting (for 1 minute prior to obtaining)] Pulse Rate [Standing (for 1 minute prior to obtaining)] Respiratory Rate 26 H 22 H Blood Pressure 122/91 H 91/47 L 91/47 L Blood Pressure [Lying] Blood Pressure [Sitting (for 1 minute prior to obtaining)] Blood Pressure [Standing (for 1 minute prior to obtaining)] Blood Pressure Mean 102 60 60 Blood Pressure Mean [Lying] Blood Pressure Mean [Sitting (for 1 minute prior to obtaining)] Blood Pressure Mean [Standing (for 1 minute prior to obtaining)] Pulse Ox Oxygen Delivery Method 01/25/25 15:45 01/25/25 15:45 01/25/25 16:00 Temperature Temperature Source Pulse Rate 81 91 Pulse Rate [Lying] Pulse Rate [Sitting (for 1 minute prior to obtaining)] Pulse Rate [Standing (for 1 minute prior to obtaining)] Respiratory Rate 21 H 16 Blood Pressure 124/78 H 124/78 H 136/94 H Blood Pressure [Lying] Blood Pressure [Sitting (for 1 minute prior to obtaining)] Blood Pressure [Standing (for 1 minute prior to obtaining)] Blood Pressure Mean 90 90 108 Blood Pressure Mean [Lying] Blood Pressure Mean [Sitting (for 1 minute prior to obtaining)] Blood Pressure Mean [Standing (for 1 minute prior to obtaining)] Pulse Ox 97 Oxygen Delivery Method 01/25/25 16:00 01/25/25 16:15 01/25/25 16:30 Temperature Temperature Source Pulse Rate 90 90 90 Pulse Rate [Lying] Pulse Rate [Sitting (for 1 minute prior to obtaining)] Pulse Rate [Standing (for 1 minute prior to obtaining)] Respiratory Rate 14 19 H 17 Blood Pressure 130/82 H 136/94 H 121/89 H Blood Pressure [Lying] Blood Pressure [Sitting (for 1 minute prior to obtaining)] Blood Pressure [Standing (for 1 minute prior to obtaining)] Blood Pressure Mean 98 107 100 Blood Pressure Mean [Lying] Blood Pressure Mean [Sitting (for 1 minute prior to obtaining)] Blood Pressure Mean [Standing (for 1 minute prior to obtaining)] Pulse Ox Oxygen Delivery Method 01/25/25 16:45 01/25/25 17:00 01/25/25 17:00 Temperature Temperature Source Pulse Rate 87 88 89 Pulse Rate [Lying] Pulse Rate [Sitting (for 1 minute prior to obtaining)] Pulse Rate [Standing (for 1 minute prior to obtaining)] Respiratory Rate 19 H 19 H 12 Blood Pressure 134/88 H 110/67 137/88 H Blood Pressure [Lying] Blood Pressure [Sitting (for 1 minute prior to obtaining)] Blood Pressure [Standing (for 1 minute prior to obtaining)] Blood Pressure Mean 103 81 105 Blood Pressure Mean [Lying] Blood Pressure Mean [Sitting (for 1 minute prior to obtaining)] Blood Pressure Mean [Standing (for 1 minute prior to obtaining)] Pulse Ox 94 Oxygen Delivery Method Room Air 01/25/25 17:15 01/25/25 17:32 01/25/25 17:42 Temperature 98.2 F Temperature Source Pulse Rate 88 95 85 Pulse Rate [Lying] Pulse Rate [Sitting (for 1 minute prior to obtaining)] Pulse Rate [Standing (for 1 minute prior to obtaining)] Respiratory Rate 13 32 H 28 H Blood Pressure 137/88 H 137/88 H Blood Pressure [Lying] Blood Pressure [Sitting (for 1 minute prior to obtaining)] Blood Pressure [Standing (for 1 minute prior to obtaining)] Blood Pressure Mean 104 104 Blood Pressure Mean [Lying] Blood Pressure Mean [Sitting (for 1 minute prior to obtaining)] Blood Pressure Mean [Standing (for 1 minute prior to obtaining)] Pulse Ox 100 97 Oxygen Delivery Method 01/25/25 17:45 01/25/25 18:03 Temperature Temperature Source Pulse Rate 85 Pulse Rate [Lying] Pulse Rate [Sitting (for 1 minute prior to obtaining)] Pulse Rate [Standing (for 1 minute prior to obtaining)] Respiratory Rate 16 Blood Pressure 137/88 H Blood Pressure [Lying] Blood Pressure [Sitting (for 1 minute prior to obtaining)] Blood Pressure [Standing (for 1 minute prior to obtaining)] Blood Pressure Mean 104 Blood Pressure Mean [Lying] Blood Pressure Mean [Sitting (for 1 minute prior to obtaining)] Blood Pressure Mean [Standing (for 1 minute prior to obtaining)] Pulse Ox Oxygen Delivery Method Positive well nourished and well developed General Appearance ED: well developed and NAD; Negative for pallor HEENT Reports dry mucous membranes Mouth ED: Yes dry mucous membranes Mouth: dry mucous membranes Eyes PERRL General Eye ED: Negative for pale conjunctiva or scleral icterus Neck supple and no JVD Chest Wall inspection of chest normal and palpation of chest normal Resp normal respiratory effort and clear to auscultation bilaterally Auscultation: Negative for wheezes or diminished lung sounds Cardio regular rate, regular rhythm and no murmurs GI normal to inspection, nondistended, normoactive bowel sounds Auscultation: normoactive bowel sounds Palpation: soft and tender LUQ; Negative for guarding Back/Spine no CVA tenderness Extremity normal to inspection General Extremety ED: Negative for edema General Extremity: Negative for edema Neuro oriented x3 Sensorium / Orientation: alert Motor Exam: general weakness Psych mental status grossly normal Skin no rashes or lesions noted and no wounds General Skin Exam: Negative for pallor MDM MDM MDM Narrative Medical decision making narrative: Patient evaluated for generalized weakness, dyspnea on exertion, lightheadedness/near syncope and prior melanoma. Does have a history of anemia requiring iron transfusions. She is not currently receiving these. The symptoms have been progressing. She also has a history of gastric bypass and reports left upper quadrant abdominal pain. She states that she has been taking her antacid therapy. Differential includes symptomatic anemia, CHF exacerbation, dehydration, hypovolemia, bleeding ulcer, infection and electrolyte abnormality. CBC does show worsening anemia with a hemoglobin of 9.0 which is microcytic. Patient's hemoglobin earlier this year was 11.4 so this is a pretty significant drop. She has a mild leukopenia which appears to be chronic and stable. BMP shows a low bicarb of 19.7, normal anion gap, normal creatinine and no significant lecture abnormalities. BNP is normal. Question patient is actually more dehydrated and is given IV fluids in the emergency room. Liver panel is normal and lipase is normal. Lower suspicion for pancreatitis or acute biliary pathology. Urinalysis is not consistent with infection. She is Hemoccult negative in the emergency room. Lower suspicion for acute GI bleeding. Chest x-ray viewed by myself as well as radiology shows subtle left lower lobe airspace disease which could include pneumonitis or atelectasis. Because this is also where her pain is it obtain CT of the chest to rule out PE and further evaluate the lung parenchyma. In addition given her ongoing abdominal pain CT of the abdomen pelvis is obtained to rule out small bowel obstruction or other acute intra-abdominal pathology. CT imaging is largely negative for any acute process. Patient started on IV Protonix, given GI cocktail. She does continue to have abdominal pain and when she is ambulated her vital signs are stable but she still feels very weak and is a little wobbly. She is amenable to observation overnight in case this is more of an acute anemia that is symptomatic. Patient's case is discussed with hospitalist, Dr. Aguillon. She is excepted to the general medical floor for observation. Lab Data Attestation: I reviewed the patient's lab results. Labs: Laboratory Results - last 24 hr 01/25/25 01/25/25 13:10 18:04 WBC 4.1 L RBC 4.52 Hgb 9.0 L Hct 29.7 L MCV 65.7 L MCH 19.9 L MCHC 30.3 L RDW Std Deviation 42.5 RDW Coeff of Adelia 18.8 H Plt Count MPV 9.7 Immature Gran % (Auto) 0.200 Neut % (Auto) 38.6 L Lymph % (Auto) 50.4 H Lyman % (Auto) 8.8 Eos % (Auto) 1.5 Baso % (Auto) 0.5 Absolute Neuts (auto) 1.6 L Absolute Lymphs (auto) 2.05 Nucleated RBC % 0 Platelet Estimate ADEQUATE Retic Count 1.43 Immature Retic Fraction 39.90 H Retic Hgb Equivalent 24.7 L Sodium 135 Potassium 4.2 Chloride 102 Carbon Dioxide 19.7 L Anion Gap 13 BUN 17 Creatinine 1.09 Estim Creat Clear Calc 48.81 L Est GFR (MDRD) Non-Af 57 L BUN/Creatinine Ratio 16.0 Glucose 101 H Calcium 9.6 Ferritin 13 L Total Bilirubin 0.24 AST 30 ALT 15 Alkaline Phosphatase 104 NT pro BNP II 95 Total Protein 7.4 Albumin 4.3 Globulin 3.1 Albumin/Globulin Ratio 1.4 Lipase 44 Urine Color Yellow Urine Clarity Clear Urine pH 5.0 Ur Specific Sterrett 1.015 Urine Protein 15 H Urine Glucose (UA) Normal Urine Ketones Negative Urine Occult Blood 10 H Urine Nitrite Negative Urine Bilirubin Negative Urine Urobilinogen Normal Ur Leukocyte Esterase Negative Urine RBC 0-5 SEEN Urine WBC 0-5 SEEN Ur Squamous Epith Cells 0-5 SEEN Urine Bacteria 0 SEEN Urine Mucus 0 SEEN Radiography Diagnostic Testing: Clinical Impression(s) from Imaging Studies Chest X-Ray 01/25/25 14:40 IMPRESSION: The cardiomediastinal silhouette is stable, with a somewhat tortuous ascending aorta appearing unchanged. No evidence of cardiomegaly. Subtle left lower lobe airspace disease is seen, with differential diagnosis including Pneumonitis and (less likely given the appearance) atelectasis. No pleural effusion or pneumothorax is seen. No interval osseous change is seen. [id number]Pelvis CT 01/25/25 15:18 IMPRESSION: Fatty infiltration of the liver. Status post gastric bypass surgery. No acute abnormality is seen. Reading Location: [facility] Chest CTA 01/25/25 15:18 IMPRESSION: No evidence of pulmonary embolism. Reading Location: [facility] Management Discussion w/another healthcare provider: Hospitalist Discharge Plan Dx/Rx/DC Orders Clinical Impression: Abdominal pain, Dizziness, Microcytic anemia Disposition Disposition: Acute Care Hospital [facility] Discharge Date/Time: 01/25/25 21:51
[2025-01-25 15:12] LABS: Pro- Brain NATRIURETIC PEPTIDE 95 pg/mL (<=900)
--- NOTE | 2025-01-25 15:18 | CT_ITS ---
PROCEDURE: ABDOMEN/PELVIS W IV CONT ONLY 01/25/2025 REASON FOR EXAM: LUQ ABD PAIN TECHNIQUE: ABDOMEN/PELVIS W IV CONT ONLY Coronal and Sagittal reconstruction series were provided. CONTRAST: Isovue 370 VOLUME: 100 mL One or more dose reduction techniques were used (e.g., Automated exposure control, adjustment of the mA and/or kV according to patient size, use of iterative reconstruction technique. RADIATION DOSE SUMMARY: CTDlvol: 14 mGy DLP: 819.67 mGycm COMPARISON: Prior study dated October 22, 2022. FINDINGS: Lung bases: Lungs are clear. Coronary artery calcification. Liver: Diffuse fatty infiltration. Stable 1 cm slightly hyperdense nodule in the posterior aspect of the dome of the right lobe of the liver as seen on axial image number 239. Gallbladder: Surgically absent. Spleen: Normal size. Pancreas: Diffuse fatty atrophy. Adrenals: Unremarkable Kidneys: Normal renal sizes. No hydronephrosis. Bladder: Distended urinary bladder. Reproductive Organs: Unremarkable Bowel: There is evidence of prior gastric surgery. Appendix: The appendix is not identified. There is no inflammatory process identified in the right lower quadrant to suggest appendicitis. Lymph nodes: Unremarkable. Vasculature: Mild diffuse atherosclerotic calcifications are noted. Peritoneum / Retroperitoneum: Unremarkable Bones: Minimal anterior listhesis of L4 on L5. Spondylolysis of the pars interarticularis of the L4 vertebrae. CT/Abdomen/Pelvis W IV Cont ONLY IMPRESSION: Fatty infiltration of the liver. Status post gastric bypass surgery. No acute abnormality is seen. Reading Location: [facility]
--- NOTE | 2025-01-25 15:18 | CT_ITS ---
PROCEDURE: CTA CHEST W/WO CONTRAST 01/25/2025 REASON FOR EXAM: SOB, POSSIBLE PE TECHNIQUE: CTA CHEST W/WO CONTRAST Multiplanar Sagittal and Coronal images were obtained. One or more dose reduction techniques were used (e.g., Automated exposure control, adjustment of the mA and/or kV according to patient size, use of iterative reconstruction technique). CONTRAST: Isovue 3 7 VOLUME: 100 mL RADIATION DOSE SUMMARY: CTDlvol: 14.5 mGy DLP: 819.67 mGycm COMPARISON: Prior chest radiograph dated January 25, 2025. FINDINGS: Hardware: EKG electrodes are seen. Lymph nodes: No significant lymph nodes are seen. Heart: Minimal coronary artery calcification. Thoracic Aorta: Minimal dilatation of the root of the ascending thoracic aorta with measurement of 41 mm. Pulmonary Vessels: No evidence of pulmonary embolism. Lungs and Airways: Lungs are clear. Pleura: No pleural effusion. Upper Abdomen: Fatty infiltration of the liver. Bones: Degenerative changes of the thoracic spine. CT/CTA Chest W/WO Contrast IMPRESSION: No evidence of pulmonary embolism. Reading Location: [id number]
[2025-01-25] MEDS: 0.9% Normal Saline (1000mL) 1,000 ML 999 ML IV (15:31)
[2025-01-25] MEDS: fentaNYL 100 MCG/2 ML Ampul 50 MCG IV (15:31)
[2025-01-25] MEDS: Ondansetron 4 MG/2 ML Vial IV (15:31)
--- NOTE | 2025-01-25 15:50 | CM.ED ---
Social Work Reason for visit: No PCP Patient verified that she does not currently have a PCP. [facility] provider list given. No further needs at this time. Mandi Oconnell, CLIENT ENGAGEMENT SPECIALIST, PARKING [employer]ER
[2025-01-25] MEDS: Pantoprazole Sodium 40 MG in 0.9% Normal Saline (100mL MB+) 100 ML 300 MG IV (16:27)
[2025-01-25 18:08] LABS: Bacteria 0 SEEN /hpf (None Seen); Mucous, Urine 0 SEEN /hpf (<or=2+)
--- NOTE | 2025-01-25 18:55 | HP.PCM.HOS_ITS ---
HPI - General General Date of Admission: 01/25/25 Date of Service: 01/25/25 Chief Complaint: Abdominal pain, weakness HPI Narrative NORY GASTON, is a 64-year-old female history of GERD, PTSD, PUD, hypertension, depression presented to [facility] ED 01/25/2025 with left upper quadrant pain, generalized malaise and feeling generally unwell. In the ED patient afebrile, heart rate 105 with a blood pressure of 118/82. Respiratory rate 17 and pulse ox 100% on room air. Lipase 44, white blood cell count 4.1, hemoglobin 9.0 with last hemoglobin 5 months ago 11.4. Sodium 135, potassium 4.2 with a bicarb of 19.7, BUN 17 and creatinine 1.09 which appears similar to baseline. BNP of 95. Chest x-ray ordered which queried subtle left lower lobe airspace disease possibly pneumonitis versus atelectasis. CTA obtained which showed no PE or acute process. CT notes status post gastric bypass surgery with fatty infiltration of the liver but no acute abnormality. Gastric occult obtained which was negative. Workup unremarkable however given patient's report of increasing weakness and pain hospitalist contacted for admission. Patient evaluated at bedside. Reports that she has left upper quadrant pain up under her ribs almost all the time then will get significant attacks but occasionally the pain might be gone altogether though that is few and far between. She reports she also stays nauseous most of the time. Has shortness of breath but this is not necessarily changed. Had black stool a couple of weeks ago but denies any at this time, no bowel or bladder changes, no pain in lower abdomen fevers., No other new or acute complaints [facility] Medical History (Updated 01/25/25 @ 19:[address] Virginie Aguillon MD) ADHD (attention deficit hyperactivity disorder) Anemia Anxiety Anxiety and depression B12 deficiency Chest pain Chronic kidney disease (CKD), stage III (moderate) Chronic pain Depression ETOH abuse GERD (gastroesophageal reflux disease) History of GI bleed Hyperlipidemia Hypertension Insomnia Iron (Fe) deficiency anemia Iron deficiency Migraines Obesity (BMI 30-39.9) Postsurgical malabsorption, not elsewhere classified PTSD (post-traumatic stress disorder) PUD (peptic ulcer disease) Smoker TIA (transient ischemic attack) TMJ (temporomandibular joint syndrome) Tobacco use Vitamin D deficiency Home Medications ?Medication ?Instructions ?Recorded ?Last Taken ?Type rollator walker with seat #1 ea 10/09/20 Unknown Rx cyanocobalamin (vitamin B-12) 1,000 mcg IM Q30D #1 mL 12/20/20 Unknown Rx 1,000 mcg/mL injection solution syringe with needle 1 mL 25 gauge #100 ea 03/05/21 Unk nown History x 1 valacyclovir 500 mg tablet 500 mg PO DAILY Herpes Flar e #90 10/28/21 01/23/25 Rx (Valtrex) tabs triamterene 37.5 1 cap PO DAILY 30 days #90 c aps 02/16/23 Unknown Rx mg-hydrochlorothiazide 25 mg capsule cholecalciferol (vitamin D3) 25 25 mcg PO DAILY Unknown History mcg (1,000 unit) capsule cyclobenzaprine 10 mg tablet 10 mg PO TID 07/24/24 Unk nown History mirtazapine 7.5 mg tablet 7.5 mg PO QHS #30 tabs 10/10 Unknown Rx venlafaxine 75 mg capsule,extended 75 mg PO QAM #30 ca ps 12/15/24 Unknown Rx release 24 hr albuterol sulfate 90 mcg/actuation 2 puff inhalation Q 4H PRN SOB, 01/25/25 01/23/25 History aerosol inhaler wheezing Allergy/AdvReac Type Severity Reaction Status Date / Time buprenorphine (From [facility]) Allergy Rash Verified 01/25/25 19:32 NSAIDS (Non-Steroidal AdvReac Nausea Verified 01/25/25 19:32 Anti-Inflamma Family History Father Myocardial infarction Alcohol abuse Heart disease CAD (coronary artery disease) Mother CVA (cerebral vascular accident) Hypertension Thrombosis Alcohol abuse Sister Lupus Surgical History H/O gastric bypass (~1999) Hx of bariatric surgery S/P Social History household members: other details: grandson housing: house current occupational status: retired and disabled history of recent travel: No sexually active: No Smoking Status: Former smoker Smokeless tobacco user: other alcohol intake: current alcohol intake frequency: 3 or more drinks per day details: Patient reports history of at 2-tall boys daily at least. substance use type: does not use what type of physical activity do you participate in: none and walking seatbelt use: always do you feel safe at home: Yes additional social history: single ROS ROS Narrative General: Denies fever/chills HENT: Denies headache, denies stuffy nose, denies sore throat EYES: Denies changes in vision Resp: Some chronic shortness of breath, no change in any respiratory symptoms Cardiac: Denies chest pain GI: Left upper quadrant abdominal pain under rib cage worse when pushing but does not feel on the rib cage feels underneath, nausea, denies bowel changes : Denies changes in urination Extremity: Denies swelling MSK: Some generalized weakness Neuro: Denies any numbness/tingling Heme: Denies any bleeding or bruising Skin: Denies rashes Psychiatric: Frustrated over the symptoms Vital Signs Vital Signs Vital Signs: 01/25/25 12:45 01/25/25 13:45 01/25/25 14:00 Temperature 98.4 F Temperature Source Temporal Pulse Rate 105 H 91 89 Pulse Rate [Lying] Pulse Rate [Sitting (for 1 minute prior to obtaining)] Pulse Rate [Standing (for 1 minute prior to obtaining)] Respiratory Rate 17 18 16 Blood Pressure 118/82 H 121/74 H 123/85 H Blood Pressure [Lying] Blood Pressure [Sitting (for 1 minute prior to obtaining)] Blood Pressure [Standing (for 1 minute prior to obtaining)] Blood Pressure Mean 94 89 97 Blood Pressure Mean [Lying] Blood Pressure Mean [Sitting (for 1 minute prior to obtaining)] Blood Pressure Mean [Standing (for 1 minute prior to obtaining)] Pulse Ox 100 99 97 Oxygen Delivery Method Room Air Room Air Room Air 01/25/25 15:00 01/25/25 16:00 01/25/25 17:00 Temperature Temperature Source Pulse Rate 91 88 Pulse Rate [Lying] 91 Pulse Rate [Sitting (for 1 minute prior to obtaining)] 95 Pulse Rate [Standing (for 1 minute prior to obtaining)] 99 Respiratory Rate 16 19 H Blood Pressure 136/94 H 110/67 Blood Pressure [Lying] 131/85 H Blood Pressure [Sitting (for 1 minute prior to obtaining)] 110/68 Blood Pressure [Standing (for 1 minute prior to obtaining)] 120/83 H Blood Pressure Mean 108 81 Blood Pressure Mean [Lying] 100 Blood Pressure Mean [Sitting (for 1 minute prior to obtaining)] 82 Blood Pressure Mean [Standing (for 1 minute prior to obtaining)] 95 Pulse Ox 97 94 Oxygen Delivery Method Room Air 01/25/25 17:42 01/25/25 18:03 Temperature 98.2 F Temperature Source Pulse Rate 85 Pulse Rate [Lying] Pulse Rate [Sitting (for 1 minute prior to obtaining)] Pulse Rate [Standing (for 1 minute prior to obtaining)] Respiratory Rate 28 H Blood Pressure 137/88 H 137/88 H Blood Pressure [Lying] Blood Pressure [Sitting (for 1 minute prior to obtaining)] Blood Pressure [Standing (for 1 minute prior to obtaining)] Blood Pressure Mean 104 104 Blood Pressure Mean [Lying] Blood Pressure Mean [Sitting (for 1 minute prior to obtaining)] Blood Pressure Mean [Standing (for 1 minute prior to obtaining)] Pulse Ox 97 Oxygen Delivery Method Weight Weight: 68.311 kg Body Mass Index (BMI) 24.3 Physical Exam Narrative General: Alert, oriented, no apparent distress HEENT: Atraumatic, normocephalic Eyes: Anicteric, normal conjunctiva, extraocular movements grossly intact Neck: Supple Respiratory: Clear to auscultation bilaterally, normal respiratory effort Cardiovascular: Regular rate and rhythm GI: Soft, nondistended, some tenderness to palpation under her left breast, she does not feel like it is the chest wall or ribs but she feels like the pain is deeper, no rebound, guarding, rigidity Extremities: No edema Musculoskeletal: Moving all extremities Neuro: No overt focal neurological deficits Skin: No rashes appreciated Psych: Cooperative Results Lab / Micro Data 01/25/25 13:10 01/25/25 13:10 Labs: Laboratory Results - last 24 hr 01/25/25 13:10: WBC 4.1 L, RBC 4.52, Hgb 9.0 L, Hct 29.7 L, MCV 65.7 L, MCH 19.9 L, MCHC 30.3 L, RDW Std Deviation 42.5, RDW Coeff of Adelia 18.8 H, Plt Count , MPV 9.7, Immature Gran % (Auto) 0.200, Neut % (Auto) 38.6 L, Lymph % (Auto) 50.4 H, [place] % (Auto) 8.8, Eos % (Auto) 1.5, Baso % (Auto) 0.5, Absolute Neuts (auto) 1.6 L, Absolute Lymphs (auto) 2.05, Nucleated RBC % 0, Platelet Estimate ADEQUATE, Sodium 135, Potassium 4.2, Chloride 102, Carbon Dioxide 19.7 L, Anion Gap 13, BUN 17, Creatinine 1.09, Estim Creat Clear Calc 48.81 L, Est GFR (MDRD) Non-Af 57 L, BUN/Creatinine Ratio 16.0, Glucose 101 H, Calcium 9.6, Total Bilirubin 0.24, AST 30, ALT 15, Alkaline Phosphatase 104, NT pro BNP II 95, Total Protein 7.4, Albumin 4.3, Globulin 3.1, Albumin/Globulin Ratio 1.4, Lipase 44 Micro: Microbiology 01/25/25 16:10 Stool Stool Occult Blood (YULISSA) - Final Imaging Radiology Impression Chest X-Ray 01/25/25 14:40 IMPRESSION: The cardiomediastinal silhouette is stable, with a somewhat tortuous ascending aorta appearing unchanged. No evidence of cardiomegaly. Subtle left lower lobe airspace disease is seen, with differential diagnosis including Pneumonitis and (less likely given the appearance) atelectasis. No pleural effusion or pneumothorax is seen. No interval osseous change is seen. Reading Location: [facility] Abdomen/Pelvis CT 01/25/25 15:18 IMPRESSION: Fatty infiltration of the liver. Status post gastric bypass surgery. No acute abnormality is seen. Reading Location: [id number] Chest CTA 01/25/25 15:18 IMPRESSION: No evidence of pulmonary embolism. Reading Location: [id number] Assessment & Plan Assessment/Plan (1) Abdominal pain: PLAN: Plan # Upper abdominal pain -Lipase within normal limits -Liver function within normal limits -CT abdomen and pelvis with no acute process -Will bladder scan to see if patient retaining and possibly contributing to any abdominal discomfort -Schedule bowel regimen to keep regular bowel movements -Will check gastric emptying study given patient's upper abdominal pain with frequent nausea -Supportive care -IV fluids -Will start PPI, listed the patient has a history of GERD and peptic ulcer disease but do not see where she is on any therapy for this # Worsened microcytic anemia -Hemoglobin 9.0 -5 months ago it was 11.4 and she is become progressively more microcytic -Fecal occult negative -Will check iron panel and reticulocyte count -Repeat in the a.m. # Per documentation does have a history of alcohol use disorder -Will start on CIWA but hold on coverage for now, can add if patient beginning to score concerns for impending withdrawal # History of gastric bypass surgery -Around 1999 -Noted #Mild aortic root dilation -41mm -Recommend outpt monitoring #Depression/anxiety/PTSD -Continue home medications #Hypertension - Continue home medications #DVT ppx: Lovenox subcu Virginie Aguillon MD Charges/Coding Visit Charges Inpatient E&M: 73208 Init Hosp L2
[2025-01-25 19:11] LABS: Color, Urine Yellow (Yellow); Glucose, Dipstick Normal (Normal); Ketone-Dipstick Negative (Negative); Leukocyte Esterase-Dipstick Negative /ul (Negative); Nitrite-Dipstick Negative (Negative); Occult Blood-Urine 10 /ul (Negative); Protein-Dipstick 15 mg/dl (Negative); Specific Gravity, Urine 1.015 (1.002-1.030); Urine Bilirubin Dipstick Negative (Negative); Urine Clarity Clear (Clear); Urine Urobilinogen Normal (Normal)
[2025-01-25 19:51] LABS: Red Blood Cells-Urine 0-5 SEEN /hpf (0-5); Squamous Epithelial Cells - UA 0-5 SEEN /hpf (5-10); White Blood Cells 0-5 SEEN /hpf (0-5)
--- NOTE | 2025-01-25 21:48 | ED.RN ---
2034 answered pt's call light and she c/o still being down here. Empathy given and explained to her that the wait is for a bed,admission and staff readiness.
--- NOTE | 2025-01-25 21:48 | ED.RN ---
Pt detective automobile section light repeatedly, this nurse to room, pt upset she has been waiting so long to go upstairs, states she is nauseated but wants a sandwich. This nurse voiced understanding with pts frustration with waiting for a bed, informed that as soon as bed was available she would go upstairs.
--- OUTSIDE RECORDS SUMMARY | 2025-01-25 21:54 | XMS RPT_ITS | CCD ---
Author Organization [facility] Care Team Providers Care Structural Architect Name Role Phone Prateek Lockhart Unavailable Care Physician, No Primary Primary Care Provider Unavailable Dr. Albert Carbone Emergency Provider Dr. Jeniffer Campos Admit Provider Dr. Jeniffer Campos Other Provider Dr. Drew Solis Attending Provider Unavailable Dr. Drew Solis Other Provider Unavailable Dr. Margarette Christensen Attending Provider [phone] Virginie Aguillon Attending Provider [phone] Virginie Aguillon Other Provider Prateek Lockhart Unavailable Hilton Johnson MD Primary Care Provider Prateek Galarza Unavailable PROVIDER, UNKNOWN Admitting Unavailable PROVIDER, UNKNOWN Attending Unavailable BUNNY YO MD Attending Unavailable BUNNY YO MD Primary Care Unavailable Unavailable Primary Care Provider UnavailJEANA Jimenez Primary Care Unavailable Tristan, Stoney Chi Primary Care Unavailable Machelle Muñoz Attending Unavailable Tristan, Stoney Chi Primary Care Unavailable Tristan, Stoney Chi Referring Unavailable Trell Tilley Attending Unavailable Tristan, Stoney Chi Referring Unavailable Ramona Covarrubias Attending Unavailable Tristan, Stoney Chi Primary Care Unavailable Care Physician, No Primary Primary Care Unava ilable Trell Tilley Attending Unavailable Brennon Yung Referring Unavailable Ramona Covarrubias Referring Unavailable Tristan, Stoney Chi Primary Care Unavailable Ramona Covarrubias Attending Unavailable Tristan, Stoney Chi Primary Care Unavailable Randall Cheng Attending Unavailable Tristan, Stoney Chi Primary Care Unavailable Albert Carbone Attending Unavailable Tristan, Stoney Chi Primary Care Unavailable Duglas Ariza Attending Unavailable Tristan, Stoney Chi Attending Unavailable Tristan, Stoney Chi Referring Unavailable Tristan, Stoney Chi Primary Care Unavailable Ramona Covarrubias Referring Unavailable BarkRamona fraser Attending Unavailable Tristan, Stoney Chi Primary Care Unavailable Tristan, Stoney Chi Primary Care Unavailable Machelle Muñoz Attending Unavailable Care Physician, No Primary Referring Unava ilable Care Physician, No Primary Primary Care Unava ilable Trell Tilley Attending Unavailable Tristan, Stoney Chi Primary Care Unavailable Tristan, Stoney Chi Referring Unavailable Myah Yañez Attending Unavailable Tristan, Stoney Chi Primary Care Unavailable Tristan, Stoney Chi Referring Unavailable Ta Montoya Attending Unavailable Care Physician, No Primary Primary Care Unava ilable Brennon Yugn Attending Unavailable Jabour, Vincent Referring Unavailable Tristan, Stoney Chi Attending Unavailable Tristan, Stoney Chi Primary Care Unavailable Tristan, Stoney Chi Referring Unavailable Tristan, Stoney Chi Primary Care Unavailable Tristan, Stoney Chi Attending Unavailable Tristan, Stoney Chi Primary Care Unavailable Tristan, Stoney Chi Attending Unavailable Tristan, Stoney Chi Primary Care Unavailable Tristan, Stoney Chi Attending Unavailable Tristan, Stoney Chi Primary Care Unavailable Jabour, Vincent Referring Unavailable JabourEdithent Attending Unavailable Tristan, Stoney Chi Attending Unavailable Tristan, Stoney Chi Primary Care Unavailable Tristan, Stoney Chi Referring Unavailable Tristan, Stoney Chi Primary Care Unavailable Provider, Ed Physician Attending Unavailab le Tristan, Stoney Chi Primary Care Unavailable Machelle Muñoz Attending Unavailable Allergies Allergy Classification Reported Allergen(s) Allergy Type Date of Onset Reaction(s) Facility (19 sources) NSAIDs; Translations: [NSAIDS] Propensity to adverse reactions to drug 4 Nausea [facility] Work Phone: (8 sources) Buprenorphine; Translations: [buprenorphine] Drug Allergy 2 Rash [facility] (7 sources) Nonsteroidal Anti-inflammatory Compounds Propensity to adverse reactions 2 Nausea [facility] (1 source) Iron and iron compound; Translations: [iron containing compounds] Drug allergy [facility] (1 source) NSAIDs; Translations: [NSAIDS (NON-STEROIDAL ANTI-INFLAMMATORY DRUG)] Propensity to adverse reactions to drug (disorder) 4 [facility] (1 source) Buprenorphine Drug Allergy 5 [facility] Rep[facility] (1 source) NSAIDs Drug allergy (disorder) 5 [facility] Repository Medications Current Medications Medication Drug Class(es) Dates Sig (Normalized) Sig (Original) acetaminophen 500 mg oral tablet (19 sources) Start: 01-12-2014 End: 12-28-2021 take 1 tablet by mouth every six hours as needed for pain acetaminophen (TYLENOL) 500 MG tablet Take 1 Tab by mouth every 6 hours as needed for Pain or Fever. Take with tramadol 120 Tab 3 01/12/2014 Active albuterol 0.83 mg/ml inhalation solution (20 sources) beta2-Adrenergic Agonist Start: 12-29-2021 albuterol (PROVENTIL) (2.5 MG/3ML) 0.083% nebulizer solution Start: 10-11-2020 End: 04-16-2021 take 1 puff(s) by inhalation every four hours as needed Albuterol Sulfate Discontinued 2 PUFF INHALATION EVERY 4 HOURS NEEDED 8.5 February 21, 2021 8:19am April 16, 2021 4:48pm Start: 03-24-2018 Ventolin HFA M DI (90 mcg/inh) inhalation aerosol Inhalation, QID, 0 Refill(s) Start Date: 03/24/18 Status: Ordered Start: 02-04-2016 End: 10-11-2020 take 1 puff(s) by inhalation every four hours as needed Albuterol Sulfate Discontinued 2 PUFF INHALATION EVERY 4 HOURS NEEDED February 04, 2016 12:00am October 11, 2020 4:13pm Start: 01-12-2014 take 2 puff(s) by in halation every four hours as needed for wheezing albuterol (PROAIR HFA) inhaler 90 mcg/inh Indications: COPD (chronic obstructive pulmonary disease) ([facility]) Inhale 2 Puffs every 4 hours as needed for Wheezing. 8.5 g 11 01/12/2014 Active atorvastatin 40 mg oral tablet (12 sources) HMG-CoA Reductase Inhibitor Start: 03-10-2023 End: 02-09-2025 take 1 tablet by mouth once daily atorvastatin (LIPITOR) 40 mg tablet TAKE 1 TABLET BY MOUTH DAILY 90 Tablet 3 02/10/2024 02/09/2025 Active B-D LUER-VIKTORIA SYRINGE 25G X 1 3 ML MISC (1 source) Start: 02-18-2024 B-D LUER-VIKTORIA SYRINGE 25G X 1 3 ML MISC Indications: B12 deficiency USE TO INJECT B-12 SHOT EVERY MONTH DIRECTED 3 Each 3 02/18/2024 Active cyclobenzaprine hydrochloride 10 mg oral tablet (15 sources) Muscle Relaxant Start: 03-24-2018 cyclobenzaprine 10 mg oral tablet Dose : 10 mg = 1 tab(s), Oral, TID, PRN for muscle spasm, 0 Refill(s) Start Date: 03/24/18 Status: Ordered Start: 03-16-2016 End: 10-24-2020 take 20 mg by mouth three times daily Cyclobenzaprine Active 20 MG PO THREE TIMES A DAY October 24, 2020 9:31am diclofenac sodium 0.01 mg/mg topical gel (20 sources) Nonsteroidal Anti-inflammatory Drug Start: 03-03-2021 apply 4 g topically four times daily Diclofenac Sodium Active 4 GM TOPICAL .QID 100 March 03, 2021 8:32am apply to single knee, ankle, foot; for foot includes sole/toes/top of foot Start: 05-20-2020 End: 03-03-2021 apply 4 g topically four times daily Diclofenac Sodium (Voltaren) 1 % gel Discontinued 4 GM TOPICAL .QID 100 October 21, 2020 1:06pm October 24, 2020 9:33am apply to single knee, ankle, foot; for foot includes sole/toes/top of foot ergocalciferol 1.25 mg oral capsule (20 sources) Provitamin D2 Compound Start: 01-30-2023 End: 03-08-2024 take 1 capsule by mouth every week vitamin D2 ergocalciferol (DRISDOL) 1.25 MG (01987 UT) capsule Take 1 Capsule by mouth once weekly. 12 Capsule 3 03/09/2023 03/08/2024 Active Start: 11-26-2021 take 68875 [IU] by m outh every other week Ergocalciferol (Vitamin D2) Active 82497 UNIT PO every 2 weeks November 26, 2021 4:30pm Start: 11-26-2021 End: 11-26-2021 take 13237 [IU] by mouth every week Ergocalciferol (Vitamin D2) Discontinued 12636 UNIT PO EVERY WEEK 12 November 26, 2021 2:13pm November 26, 2021 4:30pm Start: 06-06-2020 End: 11-26-2021 take 16844 [IU] by mouth two times weekly Ergocalciferol (Vitamin D2) Discontinued 11823 UNIT PO TWICE A WEEK 60 90 June 10, 2021 6:28pm November 26, 2021 2:13pm Start: 07-12-2019 End: 06-06-2020 take 12932 [IU] by mouth every week Ergocalciferol (Vitamin D2) Discontinued 71819 UNIT PO Q7D July 12, 2019 1:00am June 06, 2020 11:02pm ferrous gluconate 324 mg oral tablet (3 sources) Start: 02-16-2023 take 324 mg by mouth twice daily at mealtime Ferrous Gluconate Active 324 MG PO TWICE DAILY WITH MEALS 60 February 16, 2023 12:00am gabapentin 300 mg oral capsule (20 sources) Anti-epilepti c Agent Start: 12-23-2023 End: 03-07-2024 take 1-2 capsules by mouth three times daily gabapentin (NEURONTIN) 300 MG capsule Indications: Cervical spondylosis without myelopathy TAKE 1 TO 2 CAPSULES BY MOUTH THREE TIMES A DAY 90 Capsule 1 01/06/2024 03/07/2024 Active Start: 10-27-2023 End: 11-25-2023 take 1-2 capsules by mouth three times daily gabapentin (NEURONTIN) 300 MG capsule Indications: Cervical spondylosis without myelopathy TAKE 1 TO 2 CAPSULES BY MOUTH THREE TIMES A DAY 90 Capsule 1 10/27/2023 Active Start: 11-27-2013 End: 07-30-2023 gabapentin (NEURONTIN) 300 M G capsule Indications: Cervical spondylosis without myelopathy 1-2 tablets three times daily 180 Capsule 3 03/09/2023 07/30/2023 Active hydroCHLOROthiazide 25 mg / triamterene 37.5 mg oral capsule (20 sources) Potassium-sparing Diuretic, Thiazide Diuretic Start: 03-24-2018 take 1 capsule by mouth once daily hydrochlorothiazide-triamterene 25 mg-37.5 mg oral capsule Dose = 1 cap(s), Oral, qDay, 0 Refill(s) Start Date: 03/24/18 Status: Ordered Start: 03-16-2016 End: 02-16-2023 take 1 capsule by mouth once daily Triamterene-Hydrochlorothiazid Discontin ued 1 CAP PO DAILY March 03, 2021 8:32am February 16, 2023 10:50am lidocaine 0.05 mg/mg medicated patch (3 sources) Antiarrhythmic, Amide Local Anesthetic Start: 02-16-2023 apply 1 dose topically once daily Lidocaine Active 1 PATCH TOPICAL DAILY 14 February 16, 2023 12:00am lisdexamfetamine dimesylate 60 mg oral capsule (1 source) Central Nervous System Stimulant Start: 06-13-2019 take 1 dose by mouth once daily in the morning Vyvanse Dose : 60 mg =, Oral, qAM, 0 Refill(s) Start Date: 06/13/19 Status: Ordered melatonin 5 mg oral tablet (1 source) Start: 12-30-2021 melatonin tablet Multiple Vitamin (Multi-Vitamins) tablet (15 sources) Start: 01-30-2023 take 1 tablet by mouth once daily Multiple Vitamin (Multi-Vitamin s) tablet Take 1 Tablet by mouth daily. 30 Tablet 01/30/2023 Active Start: 01-30-2023 take 1 tablet by carolyn th once daily Multiple Vitamin (Multi-Vitamins) tablet Take 1 Tablet by mouth daily. 30 Tablet 0 01/30/2023 Active omeprazole 40 mg delayed release oral capsule (20 sources) Proton Pump Inhibitor Start: 10-24-2020 End: 03-03-2021 take 40 mg by mouth once daily Omeprazole Active 40 MG PO DAILY March 03, 2021 8:32am Start: 03-24-2018 take 1 dose by mouth once daily omeprazole (NF) Dose : 40 mg =, Oral, qDay, 0 Refill(s) Start Date: 03/24/18 Status: Ordered Start: 03-16-2016 End: 03-18-2016 take 20 mg by mouth twice daily Omeprazole Discontinued 20 MG PO TWICE A DAY March 16, 2016 12:00am March 18, 2016 12:47pm plecanatide 3 mg oral tablet (7 sources) Start: 06-21-2021 Plecanatide (Trulance) 3 mg tablet Active 3 MG DAILY June 21, 2021 1:00am raNITIdine 150 mg oral tablet (1 source) Histamine-2 Receptor Antagonist Start: 01-12-2014 End: 01-01-2022 take 1 tablet by mouth twice daily ranitidine (ZANTAC) 150 MG tablet Take 1 Tab by mouth 2 times daily for 14 days. 28 Tab 1 01/12/2014 01/01/2022 Discontinued rollator walker with seat (7 sources) Start: 10-09-2020 rollator walke r with seat Active 0 .Route .MEDSUPPLY October 09, 2020 1:00am As directed Start: 10-09-2020 rollator walke r with seat Active 0 .Route .MEDSUPPLY October 09, 2020 12:00am As directed sucralfate 100 mg/ml oral suspension (20 sources) Aluminum Complex Start: 01-30-2023 End: 09-05-2023 take 10 mL by mouth four times daily sucralfate (CARAFATE) 1 GM/10ML oral suspension TAKE 10ML BY MOUTH FOUR TIMES A DAY 3600 mL 0 08/05/2023 Active Start: 06-12-2019 End: 05-20-2020 take 1 g by mouth four times daily Sucralfate Discontinued 1 GM PO 4 TIMES DAILY 56 June 12, 2019 1:00am May 20, 2020 9:29am Start: 03-18-2016 End: 05-20-2020 take 1 g by mouth four times daily Sucralfate Discontinued 1 GM PO 4 TIMES DAILY 120 March 18, 2016 1:00pm May 20, 2020 9:29am Syringe With Needle (7 sources) Start: 03-05-2021 Syringe With N eedle Active 0 .ROUTE .MEDSUPPLY March 05, 2021 12:00am As directed Start: 03-05-2021 Syringe With N eedle Active 0 .ROUTE .MEDSUPPLY March 04, 2021 11:00pm As directed temazepam 30 mg oral capsule (8 sources) Benzodiazepine Start: 03-16-2016 temazepam 30 mg oral capsule Dose : 30 mg = 1 cap(s), Oral, qHS, PRN for sleep, 0 Refill(s) Start Date: 05/15/18 Status: Ordered valACYclovir 500 mg oral tablet (20 sources) Herpesvirus Nucleoside Analog DNA Polymerase Inhibitor, Herpes Simplex Virus Nucleoside Analog DNA Polymerase Inhibitor, Herpes Zoster Virus Nucleoside Analog DNA Polymerase Inhibitor Start: 10-16-2020 End: 10-24-2020 take 1 tablet by mouth twice daily Valacyclovir (Valtrex) 500 mg tablet Discontinued 500 MG PO TWICE A DAY 60 October 16, 2020 12:00am October 24, 2020 9:43am Take 500 mg BID x 3 days for flares Start: 03-24-2018 End: 10-28-2021 take 1 tablet by mouth once daily Valacyclovir (Valtrex) 500 mg tablet Active 500 MG PO DAILY 90 October 28, 2021 2:54pm vitamin B12 (20 sources) Vitamin B12 Start: 03-15-2023 vitamin B-12 ( CYANOCOBALAMIN) 1000 MCG/ML injection Indications: B12 deficiency Inject 1 mL into the muscle once a month. 12 Each 03/15/2023 Active Start: 03-09-2023 End: 03-08-2024 vitamin B-12 (CYANOCOBALAMIN ) 1000 MCG/ML injection Inject 1 mL into the muscle once a month. 12 Each 0 03/15/2023 Active Start: 02-16-2023 take 1000 ug by mout h at breakfast Cyanocobalamin (Vitamin B-12) Active 1000 MCG PO WITH BREAKFAST 60 February 16, 2023 12:00am Start: 07-12-2019 End: 12-20-2020 inject 1000 ug by intramuscular injection every 30 days Cyanocobalamin (Vitamin B-12) Discontinued 1000 MCG IM Q30D 1 September 25, 2020 11:54am December 20, 2020 1:48pm Vitamin D3 5000 intl units o ral capsule (1 source) Start: 03-24-2018 Vitamin D3 500 0 intl units oral capsule Dose : 5,000 unit(s) = 1 cap(s), Oral, qWeek, 0 Refill(s) Start Date: 03/24/18 Status: Ordered Completed/Discontinued Medications Medication Drug Class(es) Dates Sig (Normalized) Sig (Original) acetaminophen 325 mg / HYDROcodone bitartrate 7.5 mg oral tablet (15 sources) Opioid Agonist Start: 02-20-2019 End: 08-01-2020 take 1 tablet by mouth every six hours Hydrocodone-Acetami nophen ([place]) 7.5-325 mg tablet Discontinued 1 TABLET PO EVERY 6 HOURS June 05, 2020 9:34am August 01, 2020 3:19pm Dr Ortega Start: 05-14-2018 [place] 325- 7.5 mg oral tablet 325-7.5, Oral, AsDirected, 0 Refill(s) Start Date: 05/14/18 Status: Ordered acetaminophen 325 mg / oxyCODONE hydrochloride 10 mg oral tablet (7 sources) Opioid Agonist Start: 03-16-2016 End: 02-20-2019 take 10 mg by mouth four times daily Oxycodone-Acetaminophen Discontinued 10 MG PO 4 TIMES DAILY March 16, 2016 12:00am February 20, 2019 8:50am 120 actuat beclomethasone dipropionate 0.04 mg/actuat metered dose inhaler (12 sources) Corticosteroid Start: 01-12-2014 End: 03-09-2023 take 1 puff(s) by inhalation twice daily beclomethasone (QVAR) 40 MCG/ACT inhaler Indications: COPD (chronic obstructive pulmonary disease) (HCC) Inhale 1 Puff 2 times daily. 7.3 g 3 01/12/2014 03/09/2023 Discontinued (Therapy completed) End: 03-09-2023 Beclomethasone Dipropionate (QVAR INHALATION) Inhale. 0 03/09/2023 Discontinued (Dose adjustment) Beclomethasone D ipropionate (QVAR INHALATION) Inhale. 0 Active bisacodyl 5 mg delayed release oral tablet (1 source) Stimulant Laxative Start: 12-29-2021 End: 12-29-2021 bisacodyl (DULCOLAX) 5 MG enteric coated tablet 24 hr buPROPion hydrochloride 300 mg extended release oral tablet (20 sources) Aminoketone Start: 02-21-2021 End: 03-09-2023 take 300 mg by mouth once daily in the morning Bupropion Hcl Discontinued 300 MG PO EVERY MORNING August 29, 2021 3:39pm February 16, 2023 10:50am Start: 12-04-2020 End: 02-21-2021 take 300 mg by mouth once daily in the morning Bupropion Hcl Discontinued 300 MG PO EVERY MORNING December 04, 2020 9:45am February 21, 2021 8:19am Start: 10-16-2020 End: 12-04-2020 take 150 mg by mouth once daily in the morning Bupropion Hcl Discontinued 150 MG PO EVERY MORNING October 16, 2020 12:00am December 04, 2020 9:46am clotrimazole 10 mg/ml vaginal cream (7 sources) Azole Antifungal Start: 11-07-2020 End: 11-14-2020 Clotrimazole Discontinued 1 APPFUL VAGINAL AT BEDTIME 45 7 November 07, 2020 12:00am November 14, 2020 12:03am diphenhydrAMINE (BENADRYL) 50 mg in sodium chloride 0.9 % 50 mL ivpb (1 source) Start: 12-31-2021 End: 12-31-2021 diphenhydrAMINE (BENADRYL) 50 mg in sodium chloride 0.9 % 50 mL ivpb diphenhydrAMINE-maalo x-lidocaine (BMX) 1:1:1 oral suspension (1 source) Start: 12-30-2021 End: 12-31-2021 diphenhydrAMINE-maal ox-lidocaine (BMX) 1:1:1 oral suspension esomeprazole 40 mg delayed release oral capsule (11 sources) Proton Pump Inhibitor Start: 01-15-2022 End: 03-09-2023 take 1 capsule by mouth once daily 30 minutes before breakfast, then take 1 capsule by mouth twice daily esomeprazole (NexIUM) 40 MG capsule Take 1 Capsule by mouth daily (30 minutes before breakfast). Start this dose after completing twice daily dosing. 30 Capsule 3 01/15/2022 03/09/2023 Discontinued (Therapy completed) Start: 01-15-2022 take 1 capsule by [facility] once daily 30 minutes before breakfast, then take 1 capsule by mouth twice daily esomeprazole (NexIUM) 40 MG capsule Take 1 Capsule by mouth daily (30 minutes before breakfast). Start this dose after completing twice daily dosing. 30 Capsule 3 01/15/2022 Active Start: 12-31-2021 End: 12-31-2021 take 1 capsule by mouth once daily 30 minutes before breakfast esomeprazole (NexIUM) 40 MG capsule Take 1 Capsule by mouth daily (30 minutes before breakfast). 30 Capsule 3 12/31/2021 12/31/2021 Discontinued (Reorder (*won't e-cancel)) Start: 12-28-2021 End: 12-28-2021 esomeprazole (NEXIUM) 40 MG injection Start: 06-15-2019 End: 01-14-2022 take 1 capsule by mouth twice daily 30 minutes before mealtime esomeprazole (NexIUM) 40 MG capsule Take 1 Capsule by mouth 2 times daily (30 minutes before meals) for 14 days. 28 Capsule 0 12/31/2021 01/14/2022 Active ferrous sulfate 325 mg oral tablet (1 source) Start: 12-30-2021 End: 12-31-2021 ferrous sulfate tablet TABS FLUOCINOLONE ACETONIDE EXTER NAL (6 sources) End: 03-09-2023 FLUOCINOLONE ACETONIDE EXTER NAL Apply externally. 0 03/09/2023 Discontinued (Therapy completed) FLUOCINOLONE ML TONIDE EXTERNAL Apply externally. 0 Active iron sucrose (VENOFER) 200 mg in sodium chloride 0.9 % 100 mL ivpb (1 source) Start: 12-31-2021 End: 12-31-2021 iron sucrose (VENOFER) 200 mg in sodium chloride 0.9 % 100 mL ivpb ammonium lactate 120 mg/ml topical lotion (6 sources) Start: 01-12-2014 End: 03-09-2023 ammonium lactate (LAC-HYDRIN) 12 % lotion Indications: Dry skin Apply 80 mL topically 2 times daily. 500 g 3 01/12/2014 03/09/2023 Discontinued (Therapy completed) lisinopril 10 mg oral tablet (6 sources) Angiotensin Converting Enzyme Inhibitor Start: 12-05-2013 End: 03-09-2023 take 1 tablet by mouth once daily lisinopril (ZESTRIL) 10 MG tablet Indications: HTN (hypertension) Take 1 Tab by mouth daily. 30 Tab 3 12/05/2013 03/09/2023 Discontinued (Therapy completed) LORazepam 1 mg oral tablet (13 sources) Benzodiazepine Start: 03-16-2016 End: 02-20-2019 take 1 mg by mouth twice daily as needed Lorazepam Discontinued 1 MG PO TWICE DAILY NEEDED March 16, 2016 12:00am February 20, 2019 8:49am Start: 01-12-2014 End: 03-09-2023 lorazepam (ATIVAN) 2 MG tabl et Take 1 tablet one hour prior to procedure 3 Tab 0 01/12/2014 03/09/2023 Discontinued (Therapy completed) medical milena (7 sources) Start: 10-16-2020 End: 02-16-2023 andrea abbott Discontinu ed PO October 16, 2020 12:00am February 16, 2023 10:51am Start: 10-16-2020 andrea iraheta Active PO October 16, 2020 12:00am Start: 10-16-2020 medical adrian iraheta Active PO October 15, 2020 11:00pm methocarbamol 750 mg oral tablet (6 sources) Muscle Relaxant Start: 01-15-2014 End: 03-09-2023 take 1 tablet by mouth four times daily methocarbamol (ROBAXIN-750) 750 MG tablet Take 1 Tab by mouth 4 times daily. 120 Tab 3 01/15/2014 03/09/2023 Discontinued (Therapy completed) methylPREDNISolone 4 mg oral tablet (7 sources) Corticosteroid Start: 06-14-2020 End: 08-01-2020 take 1 tablet by mouth once Methylprednisolone (Medrol (Edy)) 4 mg tablets,dose pack Discontinued 0 PO per package directions June 14, 2020 1:00am August 01, 2020 3:18pm PO PER PKG DIR 2 ml ondansetron 2 mg/ml injection (2 sources) Serotonin-3 Receptor Antagonist Start: 12-28-2021 End: 12-28-2021 ondansetron (ZOFRAN) 4 MG/2ML injection Start: 12-28-2021 End: 12-31-2021 take 1 tablet by mouth every six hours as needed for nausea ondansetron (Zofran ODT) 4 MG disintegrating tablet Take 1 Tablet by mouth every 6 hours as needed for Nausea (Vomiting). Place 1 tablet under tongue as needed for nausea. 20 Tablet 0 12/28/2021 12/31/2021 Discontinued oxyCODONE hydrochloride 5 mg oral tablet (2 sources) Opioid Agonist Start: 12-30-2021 End: 12-30-2021 oxyCODONE immediate release tablet pantoprazole 40 mg delayed release oral tablet (20 sources) Proton Pump Inhibitor Start: 03-18-2016 End: 09-25-2020 take 40 mg by mouth twice daily Pantoprazole Discontinued 40 MG PO TWICE A DAY 60 August 09, 2020 11:41am September 25, 2020 12:44pm polyethylene glycol 3350 [id number] mg powder for oral solution (1 source) Osmotic Laxative Start: 12-29-2021 End: 12-29-2021 polyethylene glycol (MIRALAX) 17 g packet Start: 12-29-2021 End: 12-29-2021 polyethylene glycol (MIRALAX ) 17 g packet Vit-Fe Fumarate-FA ( PLUS) tablet (6 sources) Start: 11-27-2013 End: 03-09-2023 take 1 tablet by mouth once daily for obesity Vit-Fe Fumarate-FA ( PLUS) tablet Indications: B12 deficiency , Gastric bypass status for obesity , Anemia, unspecified Take 1 Tab by mouth daily. 30 Tab 11 11/27/2013 03/09/2023 Discontinued (Therapy completed) Start: 11-27-2013 take 1 tablet by carolyn th once daily for obesity Vit-Fe Fumarate-FA ( PLUS) tablet Indications: B12 deficiency , Gastric bypass status for obesity , Anemia, unspecified Take 1 Tab by mouth daily. 30 Tab 11 11/27/2013 Active 50 ml sodium chloride 9 mg/m l injection (1 source) Start: 12-28-2021 End: 12-29-2021 sodium chloride 0.9 % iv eduardo us Syringe 23G X 1 3 ML MISC (10 sources) Start: 03-15-2023 End: 02-18-2024 Syringe 23G X 1 3 ML MISC Indications: B12 deficiency 1 Syringe once a month. 12 Each 03/15/2023 02/18/2024 Discontinued (Reorder (*won't e-cancel)) Start: 03-15-2023 End: 03-14-2024 Syringe 23G X 1 3 ML MISC I ndications: B12 deficiency 1 Syringe once a month. 12 Each 03/15/2023 03/14/2024 Active Start: 03-15-2023 End: 03-14-2024 Syringe 23G X 1 3 ML MISC 1 Syringe once a month. 12 Each 0 03/15/2023 03/14/2024 Active Start: 03-15-2023 End: 03-14-2024 Syringe 23G X 1 3 ML MISC I ndications: B12 deficiency 1 Syringe once a month. 12 Each 0 03/15/2023 03/14/2024 Active topiramate 25 mg oral tablet (6 sources) Start: 02-28-2014 End: 03-09-2023 take 1 tablet by mouth twice daily topiramate (TOPAMAX) 25 MG tablet Indications: Primary localized osteoarthrosis, shoulder region , Chronic right hip pain , Obstructive sleep apnea (adult) (pediatric) , Obesity , Osteoarthritis of right knee , Intestinal bypass or anastomosis status , Hip arthritis Take 1 Tab by mouth 2 times daily. 60 Tab 3 02/28/2014 03/09/2023 Discontinued (Therapy completed) traMADol hydrochloride 50 mg oral tablet (6 sources) Opioid Agonist Start: 01-12-2014 End: 03-09-2023 take 1 tablet by mouth every six hours as needed for pain tramadol (ULTRAM) 50 MG tablet Take 1 Tab by mouth every 6 hours as needed for Pain. 120 Tab 3 01/12/2014 03/09/2023 Discontinued (Therapy completed) traZODone hydrochloride 50 mg oral tablet (1 source) Serotonin Reuptake Inhibitor Start: 12-31-2021 End: 12-31-2021 trazodone (DESYREL) tablet Start: 12-31-2021 End: 12-31-2021 trazodone (DESYREL) tablet TRIAMTERENE-HCTZ ORAL (6 sources) End: 03-09-2023 TRIAMTERENE-HCTZ ORAL Take b y mouth. 0 03/09/2023 Discontinued (Therapy completed) TRIAMTERENE-HCTZ ORAL Take by mouth. 0 Active Problems Active Problems Problem Classification Problem Date Documented Da te Episodic/Chronic Anxiety disorders (20 sources) Anxiety state; Translations: [Generalized anxiety disorder] Onset: 2 09-18-2021 Chronic Attention-deficit, conduct, and disruptive behavior disorders (7 sources) Attention deficit hyperactivity disorder; Translations: [Attention-deficit hyperactivity disorder, unspecified type] 06-05-2020 Chronic Biliary tract disease (2 sources) Cholelithiasis without obstruction; Translations: [Calculus of gallbladder without cholecystitis without obstruction] 03-09-2023 Episodic Complications of surgical procedures or medical care (20 sources) Post-surgical malabsorption; Translations: [Postsurgical malabsorption, not elsewhere classified] Onset: 9 06-15-2019 Chronic Complications of surgical procedures or medical care (1 source) Other complications of other bariatric procedure; Translations: [Iron deficiency anemia, unspecified] 02-16-2023 Episodic Deficiency and other anemia (20 sources) Iron deficiency anemia; Translations: [Iron deficiency anemia, unspecified] Onset: 1 Episodic Digestive congenital anomalies (17 sources) Hirschsprung's disease; Translations: [Hirschsprung's disease] Onset: 1 05-27-2001 Chronic Disorders of lipid metabolism (2 sources) Hyperlipidemia; Translations: [Hyperlipidemia, unspecified] Onset: 5 03-10-2023 Chronic E Codes: Fall (6 sources) Fall; Translations: [Unspecified fall, initial encounter] 02-13-2023 Episodic Esophageal disorders (18 sources) Gastroesophageal reflux disease; Translations: [Gastro-esophageal reflux disease without esophagitis] Onset: 2 08-23-2001 Chronic Essential hypertension (20 sources) Hypertensive disorder; Translations: [Essential (primary) hypertension] Onset: 2 06-15-2019 Chronic Gastroduodenal ulcer (except hemorrhage) (20 sources) Peptic ulcer; Translations: [Peptic ulcer, site unspecified, unspecified as acute or chronic, without hemorrhage or perforation] Onset: 3 Chronic Headache; including migraine (1 source) Cluster headache syndrome, unspecified, not intractable; Translations: [Cluster headache syndrome, unspecified, not intractable] Onset: 4 Chronic Headache; including migraine (1 source) Headache; including migraine; Translations: [Headache, unspecified] Onset: 4 Intracranial injury (6 sources) Concussion injury of body structure; Translations: [Concussion] 10-09-2022 Episodic Menstrual disorders (17 sources) Intermenstrual bleeding - irregular; Translations: [Excessive and frequent menstruation with irregular cycle] 08-28-2002 Chronic Miscellaneous mental health disorders (16 sources) Mental health problem; Translations: [Mental disorder, not otherwise specified] Onset: 2 07-11-2002 Chronic Mood disorders (19 sources) Depressive disorder; Translations: [Major depressive disorder, single episode, unspecified] Onset: 3 01-12-2003 Chronic Nausea and vomiting (7 sources) Nausea and vomiting; Translations: [Nausea with vomiting, unspecified] 07-01-2021 Episodic Nonspecific chest pain (15 sources) Chest wall pain; Translations: [Other chest pain] 07-31-2020 Episodic Osteoarthritis (20 sources) Localized, primary osteoarthritis of the shoulder region; Translations: [Primary osteoarthritis, unspecified shoulder] Onset: 2 05-26-2017 Chronic Other female genital disorders (16 sources) Dysplasia of cervix; Translations: [Dysplasia of cervix uteri, unspecified] 11-13-2018 Episodic Other gastrointestinal disorders (1 source) Intestinal bypass or anastomosis status 05-12-2023 Chronic Other gastrointestinal disorders (7 sources) History of bariatric surgical procedure; Translations: [Bariatric surgery status] 12-04-2020 Episodic Other gastrointestinal disorders (1 source) Bariatric surgery status; Translations: [Bariatric surgery status] 02-16-2023 Episodic Other injuries and conditions due to external causes (6 sources) Traumatic brain injury with no loss of consciousness; Translations: [Unspecified injury of head, initial encounter] 10-09-2022 Episodic Other injuries and conditions due to external causes (2 sources) Closed injury of head; Translations: [Unspecified injury of head, initial encounter] 02-13-2023 Episodic Other injuries and conditions due to external causes (2 sources) Unspecified injury of head, initial encounter; Translations: [Head injury, unspecified] 02-13-2023 Episodic Other lower respiratory disease (8 sources) Dyspnea; Translations: [Dyspnea, unspecified] 07-15-2022 Episodic Other nervous system disorders (7 sources) Chronic pain; Translations: [Other chronic pain] 06-05-2020 Chronic Other nutritional; endocrine; and metabolic disorders (16 sources) Obesity; Translations: [Obesity, unspecified] Onset: 4 01-12-2014 Chronic Other nutritional; endocrine; and metabolic disorders (7 sources) Body mass index 30+ - obesity; Translations: [Obesity, unspecified] 12-04-2020 Chronic Other nutritional; endocrine; and metabolic disorders (1 source) Obesity, unspecified Onset: 4 01-12-2014 Chronic Other nutritional; endocrine; and metabolic disorders (1 source) Lipoprotein deficiency; Translations: [Lipoprotein deficiency] Onset: Chronic Other nutritional; endocrine; and metabolic disorders (2 sources) Overweight in adulthood with body mass index of 25 or more but less than 30; Translations: [Body mass index (BMI) 26.0-26.9, adult] 03-09-2023 Episodic Residual codes; unclassified (16 sources) Obstructive sleep apnea syndrome; Translations: [Obstructive sleep apnea (adult) (pediatric)] Onset: 4 02-16-2014 Chronic Residual codes; unclassified (1 source) Obstructive sleep apnea (adult)(pediatric) Onset: 4 02-16-2014 Chronic Residual codes; unclassified (7 sources) Insomnia; Translations: [Insomnia, unspecified] 03-05-2021 Episodic Residual codes; unclassified (7 sources) Acute confusion; Translations: [Disorientation, unspecified] 07-01-2021 Episodic Residual codes; unclassified (2 sources) Insomnia, unspecified; Translations: [Insomnia, unspecified] 02-16-2023 Episodic Spondylosis; intervertebral disc disorders; other back problems (20 sources) Cervical spondylosis without myelopathy; Translations: [Spondylosis without myelopathy or radiculopathy, cervical region] Onset: 1 05-27-2001 Chronic Substance-related disorders (1 source) Nicotine dependence, cigarettes, uncomplicated; Translations: [Nicotine dependence, cigarettes, uncomplicated] Onset: 4 Chronic Unclassified (1 source) Breast feeding (infant) (observable entity) 03-24-2018 Comment on above: System added from do cumentation. Breast feeding Status documented as Yes on Admission Unclassified (1 source) Cough, unspecified; Translations: [Cough, unspecified] Onset: 5 Past or Other Problems Problem Classification Problem Date Documented Da te Episodic/Chronic Abdominal pain (4 sources) Generalized abdominal pain; Translations: [Generalized abdominal pain] Onset: 4 03-09-2023 Episodic Complication of device; implant or graft (7 sources) Ulcer of anastomosis; Translations: [Other specified complication of other internal prosthetic devices, implants and grafts, initial encounter] Onset: 9 03-09-2023 Episodic Conditions associated with dizziness or vertigo (3 sources) Dizziness; Translations: [Dizziness and giddiness] Onset: 5 03-09-2023 Episodic Deficiency and other anemia (1 source) Iron deficiency anemia, unspecified Onset: 1 05-26-2017 Episodic Deficiency and other anemia (1 source) Anemia, unspecified; Translations: [Anemia, unspecified] Onset: 5 Episodic Deficiency and other anemia (2 sources) Iron deficiency anemia, unspecified; Translations: [Iron deficiency anemia, unspecified] Onset: 4 Episodic Diabetes mellitus without complication (19 sources) Prediabetes; Translations: [Prediabetes] Onset: 3 06-15-2019 Episodic Gastrointestinal hemorrhage (20 sources) Gastrointestinal hemorrhage; Translations: [Gastrointestinal hemorrhage, unspecified] Onset: 9 Episodic Nonmalignant breast conditions (17 sources) Increased ; Translations: [Galactorrhea not associated with childbirth] Onset: 9 06-15-2019 Episodic Nutritional deficiencies (20 sources) Iron deficiency; Translations: [Iron deficiency] Onset: 3 03-20-2021 Episodic Other connective tissue disease (1 source) Other symptoms and signs involving the nervous system; Translations: [Other symptoms and signs involving the nervous system] Onset: 4 Episodic Other female genital disorders (1 source) Dysplasia of cervix, unspecified 11-13-2018 Episodic Other gastrointestinal disorders (11 sources) H/O: GIT by-pass; Translations: [Bariatric surgery status] Onset: 9 Episodic Other gastrointestinal disorders (1 source) Bariatric surgery status Onset: 9 12-29-2021 Episodic Other non-traumatic joint disorders (16 sources) Hip pain; Translations: [Pain in right hip] Onset: 4 01-12-2014 Episodic Other non-traumatic joint disorders (1 source) Pain in joint, pelvic region and thigh Onset: 4 01-12-2014 Episodic Other nutritional; endocrine; and metabolic disorders (1 source) Abnormal weight loss; Translations: [Abnormal weight loss] Onset: 4 Episodic Other screening for suspected conditions (not mental disorders or infectious disease) (5 sources) Patient encounter status; Translations: [Encounter for screening for lipoid disorders] Onset: 4 03-09-2023 Episodic Residual codes; unclassified (16 sources) Memory impairment; Translations: [Other amnesia] Onset: 9 08-27-2008 Episodic Residual codes; unclassified (1 source) Memory loss Onset: 9 08-27-2008 Episodic Residual codes; unclassified (1 source) Procedure and treatment not carried out due to patient leaving prior to being seen by health care provider; Translations: [Procedure and treatment not carried out due to patient leaving prior to being seen by health care provider] Onset: 4 Episodic Spondylosis; intervertebral disc disorders; other back problems (17 sources) Chronic low back pain; Translations: [Chronic lower back pain] Onset: 4 11-13-2013 Episodic Syncope (16 sources) Syncope and collapse; Translations: [Syncope and collapse] Onset: 5 Episodic Unclassified (7 sources) h/o blood transfusions 03-02-2022 Unclassified (7 sources) h/o iron transfusions 03-02-2022 Results Test Name Value Interpretation Reference Range Facility MR/BMSLuis AlbertoBPon 12-15-2024 MR/BMS.BP [address], [place] [address] OFFICE VISIT Date of Service: 12/15/24 MR#: [id number] Acct: [id number] Name: MORENA PATTON Rep #: [id number] : 1960 Provider: KATIE dewey Age/Sex: 64/F Location: [facility] Status: Signed Intake Vital Signs 10/10/24 08:10 12/15/24 09:21 Height 5 ft 6 in 5 ft 6 in Weight: 149 lb BMI 24.0 BP 126/88 H Blood Pressure Location Lt brachial Position Sitting Respiration 16 Pulse 101 H Pulse Source Monitor BP Intake Visit Reasons: follow up Allergies buprenorphine (From [facility]) Allergy (Verified 10/10/24 08:39) Rash NSAIDS (Non-Steroidal Anti-Inflamma Adverse Reaction (Verified 10/10/24 08:39) Nausea Medications ???Medication ???Instructions ???Recorded ???Confirmed ???Type rollator walker with seat #1 ea 10/09/20 10/10/24 Rx cyanocobalamin (vitamin B-12) 1,000 mcg IM Q30D #1 mL 12/20/20 0 10/10/24 Rx 1,000 mcg/mL injection solution diclofenac sodium 1 % topical gel 4 g topical .QID #100 grams 03/0310/10/24 Rx syringe with needle 1 mL 25 gauge #100 ea 03/05/21 10/10/24 History x 1 albuterol sulfate 90 mcg/actuation 2 puff inhalation Q4H PRN PRN SO B, 04/16/21 10/10/24 Rx aerosol inhaler wheezing #8.5 grams valacyclovir 500 mg tablet 500 mg PO DAILY Herpes Flare #90 0 10/28/21 10/10/24 Rx (Valtrex) tabs lidocaine 5 % topical patch 1 patch topical DAILY 14 days #14 02/16/23 10/10/24 Rx ea triamterene 37.5 1 cap PO DAILY 30 days #90 caps 10/10/24 Rx mg-hydrochlorothiazide 25 mg capsule cholecalciferol (vitamin D3) 25 25 mcg PO QDAY 07/24/24 10/10/24 H istory mcg (1,000 unit) capsule cyclobenzaprine 10 mg tablet 10 mg PO TID 07/24/24 10/10/24 His tory mirtazapine 7.5 mg tablet 7.5 mg PO QHS #30 tabs 10/10/24 Rx venlafaxine 37.5 mg 37.5 mg PO QDAY #14 caps 12/15/24 12/15/24 Rx capsule,extended release 24 hr venlafaxine 75 mg capsule,extended 75 mg PO QAM #30 caps 12/15/24 0 12/15/24 Rx release 24 hr PFSH Medical History (Updated 09/03/24 @ 00:01 by Background Lien) Chest pain Chronic kidney disease (CKD), stage III (moderate) Vitamin D deficiency Hyperlipidemia GERD (gastroesophageal reflux disease) PTSD (post-traumatic stress disorder) Tobacco use ETOH abuse Iron (Fe) deficiency anemia History of GI bleed Iron deficiency Insomnia Anxiety and depression Obesity (BMI 30-39.9) TMJ (temporomandibular joint syndrome) Chronic pain Hypertension ADHD (attention deficit hyperactivity disorder) Postsurgical malabsorption, not elsewhere classified B12 deficiency Anemia PUD (peptic ulcer disease) Surgical History Hx of bariatric surgery S/P H/O gastric bypass ( 1999) Family History Father Myocardial infarction Alcohol abuse Heart disease CAD (coronary artery disease) Mother CVA (cerebral vascular accident) Hypertension Thrombosis Alcohol abuse Sister Lupus Social History household members: other details: grandson housing: house current occupational status: retired and disabled history of recent travel: No sexually active: No Smoking Status: Former smoker Smokeless tobacco user: other alcohol intake: current alcohol intake frequency: 3 or more drinks per day details: Patient reports history of at 2-tall boys daily at least. substance use type: does not use what type of physical activity do you participate in: none and walking seatbelt use: always do you feel safe at home: Yes additional social history: single Female Reproductive History Menstrual Date of menopause: 08/02/03 (approx; 20 + years ago per patient. ) HPI History of Present Illness History provided by: patient HPI: Morena Patton is a 64 year old female patient presenting today for a follow up evaluation. Was taking escitalopram but discontinued use because she felt it wasn't working for her. Was taking the medication for about 6 weeks before discontinuing medication. Reports continuing to feel depressed daily. Denies SI/HI. Has been working on increasing activity and trying to exercise with her grandson. Has been working on not ruminating on things that have happened in the past. Reports she has been irritable and like she is going 0 to 100 quickly. Admits to feelings of anxiety which has been worsening with time. Is concerned that anxiety is worsened with medication however has not been taking medication. Does not often feel well rested. Admits to difficulties staying asleep. Denies difficulties falling asleep. 2-3 hours at a time and does this 2 or more times per night. Appetite is (more content not included)... Normal [facility] MR/BMS.BPon 10-10-2024 MR/BMS.BP [address], [address] [place] [address] OFFICE VISIT Date of Service: 10/10/24 MR#: [id number] Acct: [id number] Name: MORENA PATTON Rep #: [id number] : 1960 Provider: KATIE dewey Age/Sex: 64/F Location: [facility] Status: Signed Intake Vital Signs 08/22/24 07:39 08/30/24 09:35 10/10/24 08:10 Height 5 ft 6 in 5 ft 6 in 5 ft 6 in Weight: 148 lb 149 lb BMI 23.8 24.0 BP 121/75 H 126/88 H Blood Pressure Location Lt brachial Lt brachial Position Sitting Sitting Respiration 16 16 Pulse 93 101 H Pulse Source Monitor Monitor BP Intake Visit Reasons: 7wfu Accompanied by: Self Allergies buprenorphine (From [employer]) Allergy (Verified 10/10/24 08:39) Rash NSAIDS (Non-Steroidal Anti-Inflamma Adverse Reaction (Verified 10/10/24 08:39) Nausea Medications ???Medication ???Instructions ???Recorded ???Confirmed ???Type rollator walker with seat #1 ea 10/09/20 10/10/24 Rx cyanocobalamin (vitamin B-12) 1,000 mcg IM Q30D #1 mL 12/20/20 0 10/10/24 Rx 1,000 mcg/mL injection solution diclofenac sodium 1 % topical gel 4 g topical .QID #100 grams 03/0310/10/24 Rx syringe with needle 1 mL 25 gauge #100 ea 03/05/21 10/10/24 History x 1 albuterol sulfate 90 mcg/actuation 2 puff inhalation Q4H PRN PRN SO B, 04/16/21 10/10/24 Rx aerosol inhaler wheezing #8.5 grams valacyclovir 500 mg tablet 500 mg PO DAILY Herpes Flare #90 0 10/28/21 10/10/24 Rx (Valtrex) tabs lidocaine 5 % topical patch 1 patch topical DAILY 14 days #14 02/16/23 10/10/24 Rx ea triamterene 37.5 1 cap PO DAILY 30 days #90 caps 10/10/24 Rx mg-hydrochlorothiazide 25 mg capsule cholecalciferol (vitamin D3) 25 25 mcg PO QDAY 07/24/24 10/10/24 H istory mcg (1,000 unit) capsule cyclobenzaprine 10 mg tablet 10 mg PO TID 07/24/24 10/10/24 His tory escitalopram oxalate 10 mg tablet 10 mg PO QDAY #30 tabs 10/10/24 0 10/10/24 Rx mirtazapine 7.5 mg tablet 7.5 mg PO QHS #30 tabs 10/10/24 Rx PFSH Medical History (Updated 09/03/24 @ 00:01 by Shae Emmanuel) Chest pain Chronic kidney disease (CKD), stage III (moderate) Vitamin D deficiency Hyperlipidemia GERD (gastroesophageal reflux disease) PTSD (post-traumatic stress disorder) Tobacco use ETOH abuse Iron (Fe) deficiency anemia History of GI bleed Iron deficiency Insomnia Anxiety and depression Obesity (BMI 30-39.9) TMJ (temporomandibular joint syndrome) Chronic pain Hypertension ADHD (attention deficit hyperactivity disorder) Postsurgical malabsorption, not elsewhere classified B12 deficiency Anemia PUD (peptic ulcer disease) Surgical History Hx of bariatric surgery S/P H/O gastric bypass ( 1999) Family History Father Myocardial infarction Alcohol abuse Heart disease CAD (coronary artery disease) Mother CVA (cerebral vascular accident) Hypertension Thrombosis Alcohol abuse Sister Lupus Social History household members: other details: grandson housing: house current occupational status: retired and disabled history of recent travel: No sexually active: No Smoking Status: Former smoker Smokeless tobacco user: other alcohol intake: current alcohol intake frequency: 3 or more drinks per day details: Patient reports history of at 2-tall boys daily at least. substance use type: does not use what type of physical activity do you participate in: none and walking seatbelt use: always do you feel safe at home: Yes additional social history: single Female Reproductive History Menstrual Date of menopause: 08/02/03 (approx; 20 + years ago per patient. ) HPI History of Present Illness History provided by: patient Chief complaint: Depression/Anxiety HPI: Morena Patton os a 64 year old female patient presenting today for a follow up evaluation. States she has been struggling more with her depression than she is with physical ailments. Admits to feelings of depression daily. States she has had a lack of energy. States she is struggling with focus and attention. States mood has been having large and frequent fluctuations. Has been more irritable and less patient with others. Denies SI/HI. Is not finding mayra in things she has in the past. Admits to sometimes feeling of anxiety and some fidgeting behaviors with this. Denies panic attacks. Sleep has not been good lately. States when she she is sleeping she is feeling fatigued during the day. Does not feel she is getting adequate sleep. Appetite has been low since she had a gastric procedure. Previous similar episode: Yes Age of first onset of symptoms: 31-40 years (more content not included)... Normal [facility] Culture, Blood (WB)on 2024 CUB Blood cultures x2, f rom two different sites No growth in 5 days. Normal [facility] Comment on above: Performed By: #### L 300.3900, L300.4310, L503.6005, L500.4050, M200.1000, L100.0100 #### [facility] [address] [place], [address] 12 Lead EKG performed by [facility] on 08-30-2024 12 Lead EKG performed by [facility] [address] [place] [address] 12 Lead EKG performed by [facility] 08/30/24 0935 MR#: [id number] Acct: [id number] Name: MORENA PATTON Rep #: [id number] : 1960 64 From: Ta Montoya MD Attending Dr: Dr. Ta Montoya MD Status: DEP A MB Ordering Dr: Ta Montoya MD Date: 08/30/24 Location: [facility] Sex: F AA Admitted: [facility]12 Lead EKG performed by [facility] ECG Report Interpretation --Sinus Rhythm -Left atrial enlargement. BORDERLINEElectronically signed on 08/30/2024 at 15:15 by Ta Montoya [employer] Version [id number] 08/30/24 1516 Date Ta Montoya MD CC: Dr. Stoney Hudson MD Date Dictated: 08/30/24934 Date Transcribed: 08/30/24934 [employer]: CO Signed Normal [facility] Cardiology Visit Reporton Cardiology Visit Report [facility] [address] [place] [address] OFFICE VISIT Date of Service: 08/30/24 MR#: [id number] Acct: [id number] Name: MORENA PATTON Rep #: [id number] : 1960 Provider: Dr. Ta Montoya MD Age/Sex: 64/F Location: [facility] Status: Signed HPI HPI History of Present Illness Details: Pleasant 64-year-old lady with a history of previous obesity status post gastric bypass surgery, hypertension, good lipid numbers who presents with chest discomfort which she describes as a heaviness not associated with activity but with occasional shortness of breath. She has not had any syncopal episodes though she has had some dizziness. She has been compliant with her medications and she did complain this to you and you have sent her to us for further evaluation and management. You do remember that she does have a history of anemia for which she receives iron therapy. 4 years ago she underwent a pharmacologic myocardial perfusion stress test as well as an echocardiogram which demonstrated preserved ejection fraction of 65% with no wall motion abnormalities present. Her physical exam today is unremarkable her electrocardiogram demonstrates sinus rhythm with a rate of 92 bpm and no acute changes. Intake Vital Signs 04/11/24 14:35 08/26/24 16:35 08/30/24 09:35 Height 5 ft 6 in 5 ft 6 in 5 ft 6 in Weight: 148 lb BMI 23.8 BP 121/75 H Blood Pressure Location Lt brachial Position Sitting Respiration 16 Pulse 93 Pulse Source Monitor Intake Visit Reasons: Chest Pain (Tristan) Assistant Corporate Controller Required: No Accompanied by: Self Is patient in pain?: No Allergies buprenorphine (From [facility]) Allergy (Verified 08/30/24 09:38) Rash NSAIDS (Non-Steroidal Anti-Inflamma Adverse Reaction (Verified 08/30/24 09:38) Nausea Medications ???Medication ???Instructions ???Recorded ???Confirmed ???Type rollator walker with seat #1 ea 10/09/20 08/22/24 Rx cyanocobalamin (vitamin B-12) 1,000 mcg IM Q30D #1 mL 12/20/20 08/30/24 Rx 1,000 mcg/mL injection solution diclofenac sodium 1 % topical gel 4 g topical .QID #100 grams 03/03/21 08/30/24 Rx syringe with needle 1 mL 25 gauge #100 ea 03/05/21 08/22/24 History x 1 albuterol sulfate 90 mcg/actuation 2 puff inhalation Q4H PRN PRN SOB, 04/16/21 08/30/24 Rx aerosol inhaler wheezing #8.5 grams valacyclovir 500 mg tablet 500 mg PO DAILY Herpes Flare #90 10/28/21 08/30/24 Rx (Valtrex) tabs lidocaine 5 % topical patch 1 patch topical DAILY 14 days #14 02/16/23 08/30/24 Rx ea triamterene 37.5 1 cap PO DAILY 30 days #90 caps 02/16/23 08/30/24 Rx mg-hydrochlorothiazide 25 mg capsule cholecalciferol (vitamin D3) 25 25 mcg PO QDAY 07/24/24 08/30/24 History mcg (1,000 unit) capsule cyclobenzaprine 10 mg tablet 10 mg PO TID 07/24/24 08/30/24 History duloxetine 60 mg capsule,delayed 60 mg PO QDAY #30 caps 08/22/24 08/30/24 Rx release ondansetron 4 mg disintegrating 4 mg PO Q8H PRN PRN Nausea #10 tabs 08/26/24 08/30/24 Rx tablet oseltamivir 75 mg capsule (Tamiflu) 75 mg PO BID 5 days #10 caps 08/26/24 08/30/24 Rx Have you fallen in the past year?: Yes PFSH Medical History (Updated 08/30/24 @ 10:[address] Ta Montoya MD) Chest pain Chronic kidney disease (CKD), stage III (moderate) Vitamin D deficiency Hyperlipidemia GERD (gastroesophageal reflux disease) PTSD (post-traumatic stress disorder) Tobacco use ETOH abuse Iron (Fe) deficiency anemia History of GI bleed Iron deficiency Insomnia Anxiety and depression Obesity (BMI 30-39.9) TMJ (temporomandibular joint syndrome) Chronic pain Hypertension ADHD (attention deficit hyperactivity disorder) Postsurgical malabsorption, not elsewhere classified B12 deficiency Anemia PUD (peptic ulcer disease) Surgical History Hx of bariatric surgery S/P H/O gastric bypass ( 1999) Family History Father Myocardial infarction Alcohol abuse Heart disease CAD (coronary artery disease) Mother CVA (cerebral vascular accident) Hypertension Thrombosis Alcohol abuse Sister Lupus Social History household members: other details: grandson housing: house current occupational status: retired and disabled history of recent travel: No sexually active: No Smoking Status: Former smoker Smokeless tobacco user: other alcohol intake: current alcohol intake frequency: 3 or more drinks per day details: Patient reports history of at 2-tall boys daily at least. substance use type: does not use what type of physical activity do you participate in: none and walking seatbelt use: always do you feel safe at home: (more content not included)... Normal [facility] Urine Cultureon 08-28-2024 [facility] Mixed Gram Positive Organisms Maceo Count 11,000-25,000 MIXC Mixed contaminants. Submit a new specimen if indicated. Normal [facility] Comment on above: Performed By: #### L 500.4050, L503.6550, L506.0250, L501.2300, L3130.0010, L501.5200, L503.0105, L504.2610, L100.0100 #### [facility] Laboratory [address] [facility] [place], [place], [id number] 12 Lead EKGon 08-26-2024 12 Lead EKG [facility] Cardiovascular Services [address] [place] [address] 12 Lead EKG 08/26/24 1710 MR#: [id number] Acct: [id number] Name: DEVON PATTONNE Rep #: [id number] : 1960 64 From: London Dupont MD Attending Dr: Status: DEP ER Ordering Dr: Duglas Ariza DO Date: 08/26/24 Location: ED Sex: F AA Admitted: Test Reason : Blood Pressure : */* mmHG Vent. Rate : 82 BPM Atrial Rate : 82 BPM P-R Int : 142 ms QRS Dur : 72 ms QT Int : 394 ms P-R-T Axes : 61 14 67 degrees QTcB Int : 460 ms Normal sinus rhythm Right atrial enlargement Borderline ECG Confirmed by TERRANCE WOO, JULIO ([id number]), sports editor ENZO STANFORD ([id number]) on 08/29/2024 6:13:58 AM Referred By: Confirmed By: JULIO DUPONT MD 08/29/24612 Date London Dupont MD CC: Dr. Stoney Hudson MD; Dr. Duglas Ariza DO Signed Normal [facility] CBC W/Diff, Automatedon 08-03 Absolute Lymph 1.30 X10 3/uL Normal 0.83-4.51 [facility] Comment on above: Performed By: #### L 300.3900, L300.4310, L503.6005, L500.4050, M200.1000, L100.0100 #### [facility] Laboratory [address] [place], [address] Absolute Neut 1.8 X10 3/uL Low 2.0-7.7 [facility] Comment on above: Performed By: #### L 300.3900, L300.4310, L503.6005, L500.4050, M200.1000, L100.0100 #### [facility] Laboratory [address] [place], [address] Basophils/100 WBC (Bld) 0.6 % Normal 0-1 [facility] Comment on above: Performed By: #### L 300.3900, L300.4310, L503.6005, L500.4050, M200.1000, L100.0100 #### [facility] Laboratory [address], [address] Eosinophils/100 WBC (Bld) 0.0 % Normal 0-5 [facility] Comment on above: Performed By: #### L 300.3900, L300.4310, L503.6005, L500.4050, M200.1000, L100.0100 #### [facility] Laboratory [address] [place], [address] Erythrocyte distribution width (RBC) [Ratio] 16.7 % High 11.6-14.6 [facility] Comment on above: Performed By: #### L 300.3900, L300.4310, L503.6005, L500.4050, M200.1000, L100.0100 #### [facility] Laboratory [address] [place], [address] Hematocrit (Bld) [Volume fraction] 35.4 % Low 37-47 [facility] Comment on above: Performed By: #### L 300.3900, L300.4310, L503.6005, L500.4050, M200.1000, L100.0100 #### [facility] Laboratory [address] [place], [address] Hemoglobin (Bld) [Mass/Vol] 11.4 g/dL Low 12.0-15.0 [facility] Comment on above: Performed By: #### L 300.3900, L300.4310, L503.6005, L500.4050, M200.1000, L100.0100 #### [facility] Laboratory [address] [place], [address] IG% 0.300 Normal 0.0-0.9 [facility] Comment on above: Result Comment: IG% - Immature Granulocytes (promyelocytes, myelocytes and metamyelocytes) > 1% indicates that a LEFT SHIFT is Present. Performed By: #### L 300.3900, L300.4310, L503.6005, L500.4050, M200.1000, L100.0100 #### [facility] Laboratory [address] [place], [address] Lymphocytes/100 WBC (Bld) 37.7 % Normal 19-41 [facility] Comment on above: Performed By: #### L 300.3900, L300.4310, L503.6005, L500.4050, M200.1000, L100.0100 #### [facility] Laboratory [address] [place], [address] MCH (RBC) [Entitic mass] 23.9 pg Low 27.0-32.0 [facility] Comment on above: Performed By: #### L 300.3900, L300.4310, L503.6005, L500.4050, M200.1000, L100.0100 #### [facility] Laboratory [address] [place], [address] MCHC (RBC) [Mass/Vol] 32.2 g/dL Normal 32-36 [facility] Comment on above: Performed By: #### L 300.3900, L300.4310, L503.6005, L500.4050, M200.1000, L100.0100 #### [facility] Laboratory [address] [place], [address] MCV (RBC) [Entitic vol] 74.2 fL Low 81-99 [facility] Comment on above: Performed By: #### L 300.3900, L300.4310, L503.6005, L500.4050, M200.1000, L100.0100 #### [facility] Laboratory [address] [place], [address] Monocytes/100 WBC (Bld) 10.1 % High 0-10 [facility] Comment on above: Performed By: #### L 300.3900, L300.4310, L503.6005, L500.4050, M200.1000, L100.0100 #### [facility] Laboratory [address] [place], [address] Neutrophils/100 WBC (Bld) 51.3 % Normal 47-70 [facility] Comment on above: Performed By: #### L 300.3900, L300.4310, L503.6005, L500.4050, M200.1000, L100.0100 #### [facility] Laboratory [address] [place], [address] Nucleated RBC (Bld) [#/Vol] 0 10*3/uL Normal 0-5 [facility] Comment on above: Performed By: #### L 300.3900, L300.4310, L503.6005, L500.4050, M200.1000, L100.0100 #### [facility] Laboratory [address] [place], [address] Platelet mean volume (Bld) [Entitic vol] 10.0 fL Normal 6.2-12.0 [facility] Comment on above: Performed By: #### L 300.3900, L300.4310, L503.6005, L500.4050, M200.1000, L100.0100 #### [facility] Laboratory [address] [place], [address] Platelets (Bld) [#/Vol] 253 10*3/uL Normal 150-450 [facility] Comment on above: Performed By: #### L 300.3900, L300.4310, L503.6005, L500.4050, M200.1000, L100.0100 #### [facility] Laboratory [address] [place], [address] RBC (Bld) [#/Vol] 4.77 10*6/uL Normal 4.2-5.4 [facility] Comment on above: Performed By: #### L 300.3900, L300.4310, L503.6005, L500.4050, M200.1000, L100.0100 #### [facility] Laboratory [address] [place], [address] RDW SD 44.5 fl High 35.1-43.9 [facility] Comment on above: Performed By: #### L 300.3900, L300.4310, L503.6005, L500.4050, M200.1000, L100.0100 #### [facility] Laboratory [address] [place], [address] WBC (Bld) [#/Vol] 3.5 10*3/uL Low 4.4-11.[address] [facility] Comment on above: Performed By: #### L 300.3900, L300.4310, L503.6005, L500.4050, M200.1000, L100.0100 #### [facility] Laboratory [address] [place], [address] Chest 1 View (Portable)on Chest 1 View (Portable) [facility] Imaging Services [address] [place] [address] Chest 1 View (Portable) MR#: [id number] Acct: [id number] Name: MORENA PATTON Rep #: [id number] : 1960 F 64 From: Ronnell jackman MD PCP: Dr. Stoney Hudson MD Status: [facility] ER Study: Chest 1 View (Portable) Date of Exam: 08/26/24 Exam# [id number] Ordering Dr: Duglas Ariza DO [id number] INDICATION: SOB EXAMINATION/TECHNIQUE: X-RAY - XR Chest 1 View COMPARISON: 04/01/2024. FINDINGS: The lungs are clear. Tortuous and calcified thoracic aorta. The heart is not enlarged. No pleural effusion or pneumothorax. No acute osseous abnormalities. RAD/Chest 1 View (Portable) IMPRESSION: No acute radiographic abnormalities. Electronically Signed: Ronnell Dan MD at 20:10 EST , CC: Dr. Stoney Hudson MD; Dr. Duglas Ariza DO [employer]: Signed Normal [facility] Comprehensive Metabolic Prof ilon 08-26-2024 Albumin [Mass/Vol] 3.4 g/dL Normal 3.2-5.[address] [facility] Comment on above: Performed By: #### L 300.3900, L300.4310, L503.6005, L500.4050, M200.1000, L100.0100 #### [facility] Laboratory [address] [place], [address] Albumin/Globulin [Mass ratio] 0.8 {ratio} Low 0.9-2.4 [facility] Comment on above: Performed By: #### L 300.3900, L300.4310, L503.6005, L500.4050, M200.1000, L100.0100 #### [facility] Laboratory [address] [place], [address] ALK P 100 U/L Normal 45-117 [facility] Comment on above: Performed By: #### L 300.3900, L300.4310, L503.6005, L500.4050, M200.1000, L100.0100 #### [facility] Laboratory [address] [place], [address] ALT [Catalytic activity/Vol] 20 U/L Normal 13-56 [facility] Comment on above: Performed By: #### L 300.3900, L300.4310, L503.6005, L500.4050, M200.1000, L100.0100 #### [facility] Laboratory [address] [place], [address] AST [Catalytic activity/Vol] 37 U/L Normal 15-37 [facility] Comment on above: Performed By: #### L 300.3900, L300.4310, L503.6005, L500.4050, M200.1000, L100.0100 #### [facility] Laboratory [address] [place], [address] Bilirubin [Mass/Vol] 0.30 mg/dL Normal 0.20-1.00 [facility] Comment on above: Result Comment: For patients on eltrombopag therapy, use of Dimension Hext TBIL is not recommended. Performed By: #### L 300.3900, L300.4310, L503.6005, L500.4050, M200.1000, L100.0100 #### [facility] Laboratory [address] [place], [address] BUN/CRE 12.5 RATIO Normal 10-20 [facility] Comment on above: Performed By: #### L 300.3900, L300.4310, L503.6005, L500.4050, M200.1000, L100.0100 #### [facility] Laboratory [address] [place], [address] CA,Total 9.3 mg/dL Normal 8.5-10.1 [facility] Comment on above: Performed By: #### L 300.3900, L300.4310, L503.6005, L500.4050, M200.1000, L100.0100 #### [facility] Laboratory [address] [place], [address] Chloride [Moles/Vol] 102 mmol/L Normal 98-107 [facility] Comment on above: Performed By: #### L 300.3900, L300.4310, L503.6005, L500.4050, M200.1000, L100.0100 #### [facility] Laboratory [address] [place], [address] CO2 [Moles/Vol] 23.0 mmol/L Normal 21.0-32.0 [facility] Comment on above: Performed By: #### L 300.3900, L300.4310, L503.6005, L500.4050, M200.1000, L100.0100 #### [facility] Laboratory [address] [place], [address] Creatinine [Mass/Vol] 1.28 mg/dL High 0.55-1.02 [facility] Comment on above: Result Comment: The validity of the calculated GFR GFRAA in patients over 70 years has not been determined. Clinical correlation is essential. Performed By: #### L 300.3900, L300.4310, L503.6005, L500.4050, M200.1000, L100.0100 #### [facility] Laboratory [address] [place], [address] EST GFR - AA 54 mL/min Low >60 [facility] Comment on above: Result Comment: Afri can Gambian GFR Calc Performed By: #### L 300.3900, L300.4310, L503.6005, L500.4050, M200.1000, L100.0100 #### [facility] Laboratory [address], [address] GAP 9 Normal 5-15 [facility] Comment on above: Performed By: #### L 300.3900, L300.4310, L503.6005, L500.4050, M200.1000, L100.0100 #### [facility] Laboratory [address] [place], [address] GFR/1.73 sq M.predicted among non-blacks MDRD (S/P/Bld) [Vol rate/Area] 45 mL/min/{1.73_m2} Low >60 [facility] Comment on above: Result Comment: Non- GFR Calc Performed By: #### L 300.3900, L300.4310, L503.6005, L500.4050, M200.1000, L100.0100 #### [facility] Laboratory [address], [address] Globulin (S) [Mass/Vol] 4.0 g/dL Normal 2.2-4.2 [facility] Comment on above: Performed By: #### L 300.3900, L300.4310, L503.6005, L500.4050, M200.1000, L100.0100 #### [facility] Laboratory [address] [place], [address] Glucose [Mass/Vol] 103 mg/dL Normal 74-[address] [facility] Comment on above: Result Comment: Fast ing Glucose result from 100 to 125 mg/dL suggests IMPAIRED HOMEOSTASIS per A.D.A. criteria. Performed By: #### L 300.3900, L300.4310, L503.6005, L500.4050, M200.1000, L100.0100 #### [facility] Laboratory [address] [place], [address] Potassium [Moles/Vol] 3.8 mmol/L Normal 3.5-5.1 [facility] Comment on above: Performed By: #### L 300.3900, L300.4310, L503.6005, L500.4050, M200.1000, L100.0100 #### [facility] Laboratory [address] [place], [address] Sodium [Moles/Vol] 134 mmol/L Low 136-[address] [facility] Comment on above: Performed By: #### L 300.3900, L300.4310, L503.6005, L500.4050, M200.1000, L100.0100 #### [facility] Laboratory [address] [place], [address] T PROT 7.4 g/dL Normal 6.4-8.2 [facility] Comment on above: Performed By: #### L 300.3900, L300.4310, L503.6005, L500.4050, M200.1000, L100.0100 #### [facility] Laboratory [address] [place], [address] Urea nitrogen [Mass/Vol] 16 mg/dL Normal 7-18 [facility] Comment on above: Performed By: #### L 300.3900, L300.4310, L503.6005, L500.4050, M200.1000, L100.0100 #### [facility] Laboratory [address] [facility] [place], [address] Emergency Department Summary on 08-26-2024 Emergency Department Summary [facility] Medical Records Department [address] [place] [address] Emergency Department Summary 08/26/24 MR#: [id number] Acct: [id number] Name: MORENA PATTON Rep #: [id number] : 1960 64 From: Duglas Ariza DO PCP: Dr. Stoney Hudson MD Status:REG ER Location: ED HPI History of Present Illness Chief Complaint: General Illness [facility] Medical History (Updated 08/26/24 @ 19:[address] Jeniffer Campos MD) Chronic kidney disease (CKD), stage III (moderate) Vitamin D deficiency Hyperlipidemia GERD (gastroesophageal reflux disease) PTSD (post-traumatic stress disorder) Tobacco use ETOH abuse Iron (Fe) deficiency anemia History of GI bleed Iron deficiency Insomnia Anxiety and depression Obesity (BMI 30-39.9) TMJ (temporomandibular joint syndrome) Chronic pain Hypertension ADHD (attention deficit hyperactivity disorder) Postsurgical malabsorption, not elsewhere classified B12 deficiency Anemia PUD (peptic ulcer disease) Home Medications ???Medication ???Instructions ???Recorded ???Last Taken ???Type rollator walker with seat #1 ea 10/09/20 Unknown Rx cyanocobalamin (vitamin B-12) 1,000 mcg IM Q30D #1 mL 12/20/20 Unknown Rx 1,000 mcg/mL injection solution diclofenac sodium 1 % topical gel 4 g topical .QID #100 grams 03/03/21 Unknown Rx syringe with needle 1 mL 25 gauge #100 ea 03/05/21 Unknown History x 1 albuterol sulfate 90 mcg/actuation 2 puff inhalation Q4H PRN PRN SOB, 04/16/21 Unknown Rx aerosol inhaler wheezing #8.5 grams valacyclovir 500 mg tablet 500 mg PO DAILY Herpes Flare #90 10/28/21 Unknown Rx (Valtrex) tabs ferrous gluconate 324 mg (37.5 mg 324 mg PO BIDCM 30 days #60 tabs 02/16/23 Unknown Rx iron) tablet lidocaine 5 % topical patch 1 patch topical DAILY 14 days #14 02/16/23 Unknown Rx ea triamterene 37.5 1 cap PO DAILY 30 days #90 caps 02/16/23 Unknown Rx mg-hydrochlorothiazide 25 mg capsule cholecalciferol (vitamin D3) 25 25 mcg PO QDAY 07/24/24 Unknown History mcg (1,000 unit) capsule cyclobenzaprine 10 mg tablet 10 mg PO TID 07/24/24 Unknown History vonoprazan 20 mg tablet (Voquezna) 20 mg PO QDAY 07/24/24 Unknown History duloxetine 30 mg capsule,delayed 30 mg PO QDAY #14 caps 08/22/24 Unknown Rx release duloxetine 60 mg capsule,delayed 60 mg PO QDAY #30 caps 08/22/24 Unknown Rx release Allergy/AdvReac Type Severity Reaction Status Date / Time buprenorphine (From Butrans) Allergy Rash Verified 08/26/24 16:37 NSAIDS (Non-Steroidal AdvReac Nausea Verified 08/26/24 16:37 Anti-Inflamma Family History Father Myocardial infarction Alcohol abuse Heart disease CAD (coronary artery disease) Mother CVA (cerebral vascular accident) Hypertension Thrombosis Alcohol abuse Sister Lupus Surgical History Hx of bariatric surgery S/P H/O gastric bypass ( 1999) Social History (Updated 04/11/24 @ 14:34 by Bette Mcwilliams) household members: other details: grandson housing: house current occupational status: retired and disabled history of recent travel: No sexually active: No Smoking Status: Former smoker Smokeless tobacco user: other alcohol intake: current alcohol intake frequency: 3 or more drinks per day details: Patient reports history of at 2-tall boys daily at least. substance use type: does not use what type of physical activity do you participate in: none and walking seatbelt use: always do you feel safe at home: Yes additional social history: single EXAM Physical Exam Const Vital Signs: 08/26/24 16:35 Temperature 97.8 F Temperature Source Oral Pulse Rate 103 H Respiratory Rate 18 Pulse Ox 100 Oxygen Delivery Method Room Air MDM MDM MDM Narrative Medical decision making narrative: HISTORY OF PRESENT ILLNESS: 64-year-old female here with complaints of cough, chills and diffuse weakness. Denies focal weakness. Patient notes that she has been sick for the last 2 days. Has felt diffusely weak and has had a cough and chills. Denies chest pain and shortness of breath. Denies sick contacts. Denies any bleeding diathesis. Denies any urinary complaints. REVIEW OF SYSTEMS: Pertinent positives: Cough, chills Pertinent negatives: PHYSICAL EXAM: Nursing triage notes reviewed, Vital signs reviewed Constitutional: please see mdm HENT: MMM Eyes: Pupils equal round and reactive to light, Extraocular muscles intact Neck: No stridor, no JVD, full neck ROM Lungs: Clear to auscultation, No wheezing or rales. No increased work of breathing, no conversational dyspnea, no accessory muscle use, no nasal flaring. No respiratory distress noted Heart: Regular rate and rhythm, No murmur (more content not included)... Normal [facility] Lactic Acidon 08-26-2024 Lactate [Moles/Vol] 1.3 mmol/L Normal 0.4-1.9 [facility] Comment on above: Order Comment: Y Performed By: #### L 300.3900, L300.4310, L503.6005, L500.4050, M200.1000, L100.0100 #### [facility] Laboratory [address] [place], [address] M100.678on 08-26-2024 SARS-CoV-2 (COVID-19) Ab IA Ql FLUABV+SARS-CoV-2+RSV Pnl Resp BISI+probe Copy of report sent to Infection Control Printer [id number] 08/26/24 1810 PRATIK. FLUABV+SARS-CoV-2+RSV Pnl Resp BISI+probe RESULTS CALLED TO A. SELF 08/26/24 1810 Sunita Magdaleno. REPORT READ BACK BY . SAME SARS-CoV-2 (COVID 19) Negative INFLUENZA A A Positive A INFLUENZA B Negative RSV PCR Negative INFLUENZAE A Normal [facility] Comment on above: Performed By: #### L 500.4050, L503.6550, L506.0250, L501.2300, L3130.0010, L501.5200, L503.0105, L504.2610, L100.0100 #### [facility] Laboratory [address] [place], [address] Partial Thromboplast Timeon 08-26-2024 aPTT Coag (Bld) [Time] 27.5 s Normal 24.1-36.2 [facility] Comment on above: Performed By: #### L 300.3900, L300.4310, L503.6005, L500.4050, M200.1000, L100.0100 #### [facility] Laboratory [address] [place], [address] Prothrombin Time w/INRon INR Coag (PPP) [Relative time] 0.9 {INR} Normal [facility] Comment on above: Performed By: #### L 300.3900, L300.4310, L503.6005, L500.4050, M200.1000, L100.0100 #### [facility] Laboratory [address] [place], [address] PT Coag (PPP) [Time] 11.8 s Normal 11.7-14.9 [facility] Comment on above: Performed By: #### L 300.3900, L300.4310, L503.6005, L500.4050, M200.1000, L100.0100 #### [facility] Laboratory [address] [facility] [place], [address] Urinalysis, Completeon 08-26 BACTERIA RARE Normal None Seen [facility] Comment on above: Order Comment: PT CA ME IN EARLY WONT SEE DR UNTIL NEXT WEEK CHANGED TO ROUTINE Performed By: #### L 500.4050, L503.6550, L506.0250, L501.2300, L3130.0010, L501.5200, L503.0105, L504.2610, L100.0100 #### [facility] Laboratory [address] [place], [address] EPI,SQUAMOUS 0-5 SEEN Normal 5-10 [facility] Comment on above: Order Comment: PT CA ME IN EARLY WONT SEE DR UNTIL NEXT WEEK CHANGED TO ROUTINE Performed By: #### L 500.4050, L503.6550, L506.0250, L501.2300, L3130.0010, L501.5200, L503.0105, L504.2610, L100.0100 #### [facility] Laboratory [address] [place], [address] RBC 0-5 SEEN Normal 0-5 [facility] Comment on above: Order Comment: PT CA ME IN EARLY WONT SEE DR UNTIL NEXT WEEK CHANGED TO ROUTINE Performed By: #### L 500.4050, L503.6550, L506.0250, L501.2300, L3130.0010, L501.5200, L503.0105, L504.2610, L100.0100 #### [facility] Laboratory [address] [place], [address] Mucus Ql (Urine sed) 0 SEEN Normal [facility] Comment on above: Order Comment: PT CA ME IN EARLY WONT SEE DR UNTIL NEXT WEEK CHANGED TO ROUTINE Performed By: #### L 500.4050, L503.6550, L506.0250, L501.2300, L3130.0010, L501.5200, L503.0105, L504.2610, L100.0100 #### [facility] Laboratory [address] [place], [address] WBC 0 SEEN Normal 0-5 [facility] Comment on above: Order Comment: PT CA ME IN EARLY WONT SEE DR UNTIL NEXT WEEK CHANGED TO ROUTINE Performed By: #### L 500.4050, L503.6550, L506.0250, L501.2300, L3130.0010, L501.5200, L503.0105, L504.2610, L100.0100 #### [facility] [address] [place], [place], [id number] MR/BMS.on 08-22-2024 MR/BMS. [address], [address] [place], [place] [address] OFFICE VISIT Date of Service: 08/22/24 MR#: [id number] Acct: [id number] Name: MORENA PATTON Rep #: [id number] : 1960 Provider: KATIE dewey Age/Sex: 64/F Location[place] [facility] [place] Status: Signed Intake Vital Signs 04/11/24 14:35 08/22/24 07:39 Height 5 ft 6 in 5 ft 6 in Weight: 151 lb BMI 24.3 BP 121/77 H Blood Pressure Location Lt brachial Position Sitting Respiration 16 Pulse 91 Pulse Source Monitor BP Intake Visit Reasons: establish care Accompanied by: Self Allergies buprenorphine (From Butrans) Allergy (Verified 08/22/24 07:43) Rash NSAIDS (Non-Steroidal Anti-Inflamma Adverse Reaction (Verified 08/22/24 07:43) Nausea Medications ???Medication ???Instructions ???Recorded ???Confirmed ???Type rollator walker with seat #1 ea 10/09/20 08/22/24 Rx cyanocobalamin (vitamin B-12) 1,000 mcg IM Q30D #1 mL 12/20/20 08/22/24 Rx 1,000 mcg/mL injection solution diclofenac sodium 1 % topical gel 4 g topical .QID #100 grams 03/03/21 08/22/24 Rx syringe with needle 1 mL 25 gauge #100 ea 03/05/21 08/22/24 History x 1 albuterol sulfate 90 mcg/actuation 2 puff inhalation Q4H PRN PRN SOB, 04/16/21 08/22/24 Rx aerosol inhaler wheezing #8.5 grams valacyclovir 500 mg tablet 500 mg PO DAILY Herpes Flare #90 10/28/21 08/22/24 Rx (Valtrex) tabs ferrous gluconate 324 mg (37.5 mg 324 mg PO BIDCM 30 days #60 tabs 02/16/23 08/22/24 Rx iron) tablet lidocaine 5 % topical patch 1 patch topical DAILY 14 days #14 02/16/23 08/22/24 Rx ea triamterene 37.5 1 cap PO DAILY 30 days #90 caps 02/16/23 08/22/24 Rx mg-hydrochlorothiazide 25 mg capsule cholecalciferol (vitamin D3) 25 25 mcg PO QDAY 07/24/24 08/22/24 History mcg (1,000 unit) capsule cyclobenzaprine 10 mg tablet 10 mg PO TID 07/24/24 08/22/24 History vonoprazan 20 mg tablet (Voquezna) 20 mg PO QDAY 07/24/24 08/22/24 History duloxetine 30 mg capsule,delayed 30 mg PO QDAY #14 caps 08/22/24 08/22/24 Rx release duloxetine 60 mg capsule,delayed 60 mg PO QDAY #30 caps 08/22/24 08/22/24 Rx release PFSH Medical History (Updated 08/22/24 @ 09:11 by KATIE Willingham) Vitamin D deficiency Dizziness Hyperlipidemia Chest pain GERD (gastroesophageal reflux disease) PTSD (post-traumatic stress disorder) Tobacco use ETOH abuse Iron (Fe) deficiency anemia History of GI bleed Fall Syncope Iron deficiency Insomnia Anxiety and depression Obesity (BMI 30-39.9) TMJ (temporomandibular joint syndrome) Chronic pain Hypertension ADHD (attention deficit hyperactivity disorder) Postsurgical malabsorption, not elsewhere classified B12 deficiency Anemia GI bleed PUD (peptic ulcer disease) Surgical History Hx of bariatric surgery S/P H/O gastric bypass ( 1999) Family History Father Myocardial infarction Alcohol abuse Heart disease CAD (coronary artery disease) Mother CVA (cerebral vascular accident) Hypertension Thrombosis Alcohol abuse Sister Lupus Social History (Updated 04/11/24 @ 14:34 by Bette Mcwilliams) household members: other details: grandson housing: house current occupational status: retired and disabled history of recent travel: No sexually active: No Smoking Status: Former smoker Smokeless tobacco user: other alcohol intake: current alcohol intake frequency: 3 or more drinks per day details: Patient reports history of at 2-tall boys daily at least. substance use type: does not use what type of physical activity do you participate in: none and walking seatbelt use: always do you feel safe at home: Yes additional social history: single Female Reproductive History Menstrual Date of menopause: 08/02/03 (approx; 20 + years ago per patient. ) HPI History of Present Illness History provided by: patient Chief complaint: Depression/Inattention/I nsomnia HPI: Morena Patton os a 64 year old female patient presenting today for an intake evaluation. Patient presents with concerns for adult ADHD. Sleep: Does use alcohol for sleep. Wakes up often in the middle of the night. Admits to difficulties falling asleep as well. About 5 hours per night. Sometimes napping. Interest: Admits to feelings of depression. Admits to feelings of depression more than half the time. Energy: Reports frequent fatigue. Admits to spending a lot fo time in bed. Has lack of energy and lack of motivation. Does not wake up feelings well rested. Guilt: Denies feelings of guilt, worthlessness, or hopelessness. Concentration: Admits to difficulties with focus and concentration often. Admits to begin easily distracted. Admits to at times making careless (more content not included)... Normal [facility] Ferritinon 07-20-2024 Ferritin [Mass/Vol] 8 ng/mL Normal 8-252 [facility] Comment on above: Order Comment: Y Performed By: #### L 300.3900, L300.4310, L503.6005, L500.4050, M200.1000, L100.0100 #### [facility] [address] [place], [address] Folates, (Folic Acid)on 07-02 FOLATES 8.20 ng/mL Normal 3.1-55.4 [facility] Comment on above: Order Comment: Y Performed By: #### L 300.3900, L300.4310, L503.6005, L500.4050, M200.1000, L100.0100 #### [facility] [address] [place], [address] Iron+Iron Binding Capacityon 07-20-2024 Iron [Mass/Vol] 19 ug/dL Low 50-170 [facility] Comment on above: Order Comment: Y Performed By: #### L 300.3900, L300.4310, L503.6005, L500.4050, M200.1000, L100.0100 #### [facility] [address] [place], [address] IRON SATURATION 4.7 Low 15.0-55.0 [facility] Comment on above: Order Comment: Y Performed By: #### L 300.3900, L300.4310, L503.6005, L500.4050, M200.1000, L100.0100 #### [facility] [address] [place], [address] TIBC 402 ug/dL Normal 250-450 [facility] Comment on above: Order Comment: Y Performed By: #### L 300.3900, L300.4310, L503.6005, L500.4050, M200.1000, L100.0100 #### [facility] [address] [place], [address] Retic Panelon 07-20-2024 IM RET FRACTION 19.60 High 3.00-15.90 [facility] Comment on above: Performed By: #### L 300.3900, L300.4310, L503.6005, L500.4050, M200.1000, L100.0100 #### [facility] [address] [place], [address] RET-HE 23.5 pg Low 30-35 [facility] Comment on above: Performed By: #### L 300.3900, L300.4310, L503.6005, L500.4050, M200.1000, L100.0100 #### [facility] [address] [place], [address] Retic Count 1.38 Normal 0.5-1.5 [facility] Comment on above: Performed By: #### L 300.3900, L300.4310, L503.6005, L500.4050, M200.1000, L100.0100 #### [facility] [address] [place], [address] Vitamin B12on 07-20-2024 Cobalamin (Vitamin B12) [Mass/Vol] 671 pg/mL Normal 211-911 [facility] Comment on above: Performed By: #### L 300.3900, L300.4310, L503.6005, L500.4050, M200.1000, L100.0100 #### [facility] [address] [place], [address] CBC W/Diff, Automatedon 07-02 Absolute Lymph 1.98 X10 3/uL Normal 0.83-4.51 [facility] Comment on above: Performed By: #### L 300.3900, L300.4310, L503.6005, L500.4050, M200.1000, L100.0100 #### [facility] [address] [place], [address] Absolute Neut 1.1 X10 3/uL Low 2.0-7.7 [facility] Comment on above: Performed By: #### L 300.3900, L300.4310, L503.6005, L500.4050, M200.1000, L100.0100 #### [facility] [address] [place], [address] Basophils/100 WBC (Bld) 0.9 % Normal 0-1 [facility] Comment on above: Performed By: #### L 300.3900, L300.4310, L503.6005, L500.4050, M200.1000, L100.0100 #### [facility] [address] [place], [address] Eosinophils/100 WBC (Bld) 2.3 % Normal 0-5 [facility] Comment on above: Performed By: #### L 300.3900, L300.4310, L503.6005, L500.4050, M200.1000, L100.0100 #### [facility] [address] [place], [address] Erythrocyte distribution width (RBC) [Ratio] 15.9 % High 11.6-14.6 [facility] Comment on above: Performed By: #### L 300.3900, L300.4310, L503.6005, L500.4050, M200.1000, L100.0100 #### [facility] [address] [place], [address] Hematocrit (Bld) [Volume fraction] 30.8 % Low 37-47 [facility] Comment on above: Performed By: #### L 300.3900, L300.4310, L503.6005, L500.4050, M200.1000, L100.0100 #### [facility] [address] [place], [address] Hemoglobin (Bld) [Mass/Vol] 9.9 g/dL Low 12.0-15.0 [facility] Comment on above: Performed By: #### L 300.3900, L300.4310, L503.6005, L500.4050, M200.1000, L100.0100 #### [facility] [address] [place], [address] IG% 0.000 Normal 0.0-0.9 [facility] Comment on above: Result Comment: IG% - Immature Granulocytes (promyelocytes, myelocytes and metamyelocytes) > 1% indicates that a LEFT SHIFT is Present. Performed By: #### L 300.3900, L300.4310, L503.6005, L500.4050, M200.1000, L100.0100 #### [facility] [address] [place], [address] Lymphocytes/100 WBC (Bld) 57.4 % High 19-41 [facility] Comment on above: Performed By: #### L 300.3900, L300.4310, L503.6005, L500.4050, M200.1000, L100.0100 #### [facility] [address] [place], [address] MCH (RBC) [Entitic mass] 26.5 pg Low 27.0-32.0 [facility] Comment on above: Performed By: #### L 300.3900, L300.4310, L503.6005, L500.4050, M200.1000, L100.0100 #### [facility] [address] [place], [address] MCHC (RBC) [Mass/Vol] 32.1 g/dL Normal 32-36 [facility] Comment on above: Performed By: #### L 300.3900, L300.4310, L503.6005, L500.4050, M200.1000, L100.0100 #### [facility] [address] [place], [address] MCV (RBC) [Entitic vol] 82.4 fL Normal 81-99 [facility] Comment on above: Performed By: #### L 300.3900, L300.4310, L503.6005, L500.4050, M200.1000, L100.0100 #### [facility] [address] [place], [address] Monocytes/100 WBC (Bld) 7.2 % Normal 0-10 [facility] Comment on above: Performed By: #### L 300.3900, L300.4310, L503.6005, L500.4050, M200.1000, L100.0100 #### [facility] [address] [place], [address] Neutrophils/100 WBC (Bld) 32.2 % Low 47-70 [facility] Comment on above: Performed By: #### L 300.3900, L300.4310, L503.6005, L500.4050, M200.1000, L100.0100 #### [facility] [address] [place], [address] Nucleated RBC (Bld) [#/Vol] 0 10*3/uL Normal 0-5 [facility] Comment on above: Performed By: #### L 300.3900, L300.4310, L503.6005, L500.4050, M200.1000, L100.0100 #### [facility] [address] [place], [address] Platelet mean volume (Bld) [Entitic vol] 9.0 fL Normal 6.2-12.0 [facility] Comment on above: Performed By: #### L 300.3900, L300.4310, L503.6005, L500.4050, M200.1000, L100.0100 #### [facility] [address] [place], [address] Platelets (Bld) [#/Vol] 325 10*3/uL Normal 150-450 [facility] Comment on above: Performed By: #### L 300.3900, L300.4310, L503.6005, L500.4050, M200.1000, L100.0100 #### [facility] [address] [place], [address] RBC (Bld) [#/Vol] 3.74 10*6/uL Low 4.2-5.4 [facility] Comment on above: Performed By: #### L 300.3900, L300.4310, L503.6005, L500.4050, M200.1000, L100.0100 #### [facility] [address] [place], [address] RDW SD 47.5 fl High 35.1-43.9 [facility] Comment on above: Performed By: #### L 300.3900, L300.4310, L503.6005, L500.4050, M200.1000, L100.0100 #### [facility] [address] [place], [address] WBC (Bld) [#/Vol] 3.5 10*3/uL Low 4.4-11.[address] [facility] Comment on above: Performed By: #### L 300.3900, L300.4310, L503.6005, L500.4050, M200.1000, L100.0100 #### [facility] [address] [place], [address] [facility] 07-19-2024 Albumin [Mass/Vol] 3.2 g/dL Normal 3.2-5.[address] [facility] Comment on above: Performed By: #### L 300.3900, L300.4310, L503.6005, L500.4050, M200.1000, L100.0100 #### [facility] [address] [place], [address] Albumin/Globulin [Mass ratio] 0.9 {ratio} Normal 0.9-2.4 [facility] Comment on above: Performed By: #### L 300.3900, L300.4310, L503.6005, L500.4050, M200.1000, L100.0100 #### [facility] [address] [place], [address] ALK P 95 U/L Normal 45-117 [facility] Comment on above: Performed By: #### L 300.3900, L300.4310, L503.6005, L500.4050, M200.1000, L100.0100 #### [facility] [address] [place], [address] ALT [Catalytic activity/Vol] 20 U/L Normal 13-56 [facility] Comment on above: Performed By: #### L 300.3900, L300.4310, L503.6005, L500.4050, M200.1000, L100.0100 #### [facility] [address] [place], [address] AST [Catalytic activity/Vol] 21 U/L Normal 15-37 [facility] Comment on above: Performed By: #### L 300.3900, L300.4310, L503.6005, L500.4050, M200.1000, L100.0100 #### [facility] [address] [place], [address] Bilirubin [Mass/Vol] 0.30 mg/dL Normal 0.20-1.00 [facility] Comment on above: Result Comment: For patients on eltrombopag therapy, use of Dimension Hext TBIL is not recommended. Performed By: #### L 300.3900, L300.4310, L503.6005, L500.4050, M200.1000, L100.0100 #### [facility] [address] [place], [address] BUN/CRE 10.8 RATIO Normal 10-20 [facility] Comment on above: Performed By: #### L 300.3900, L300.4310, L503.6005, L500.4050, M200.1000, L100.0100 #### [facility] [address] [place], [address] CA,Total 9.0 mg/dL Normal 8.5-10.1 [facility] Comment on above: Performed By: #### L 300.3900, L300.4310, L503.6005, L500.4050, M200.1000, L100.0100 #### [facility] [address] [place], [address] Chloride [Moles/Vol] 110 mmol/L High 98-107 [facility] Comment on above: Performed By: #### L 300.3900, L300.4310, L503.6005, L500.4050, M200.1000, L100.0100 #### [facility] [address] [place], [address] CO2 [Moles/Vol] 25.0 mmol/L Normal 21.0-32.0 [facility] Comment on above: Performed By: #### L 300.3900, L300.4310, L503.6005, L500.4050, M200.1000, L100.0100 #### [facility] [address] [place], [address] Creatinine [Mass/Vol] 0.93 mg/dL Normal 0.55-1.02 [facility] Comment on above: Result Comment: The validity of the calculated GFR GFRAA in patients over 70 years has not been determined. Clinical correlation is essential. Performed By: #### L 300.3900, L300.4310, L503.6005, L500.4050, M200.1000, L100.0100 #### [facility] [address] [place], [address] EST GFR - AA 78 mL/min Normal >60 [facility] Comment on above: Result Comment: Afri can Gambian GFR Calc Performed By: #### L 300.3900, L300.4310, L503.6005, L500.4050, M200.1000, L100.0100 #### [facility] [address], [address] GAP 3 Low 5-15 [facility] Comment on above: Performed By: #### L 300.3900, L300.4310, L503.6005, L500.4050, M200.1000, L100.0100 #### [facility] [address] [place], [address] GFR/1.73 sq M.predicted among non-blacks MDRD (S/P/Bld) [Vol rate/Area] 65 mL/min/{1.73_m2} Normal >60 [facility] Comment on above: Result Comment: Non- GFR Calc Performed By: #### L 300.3900, L300.4310, L503.6005, L500.4050, M200.1000, L100.0100 #### [facility] [address] [place], [address] Globulin (S) [Mass/Vol] 3.4 g/dL Normal 2.2-4.2 [facility] Comment on above: Performed By: #### L 300.3900, L300.4310, L503.6005, L500.4050, M200.1000, L100.0100 #### [facility] [address] [place], [address] Glucose [Mass/Vol] 100 mg/dL Normal 74-[address] [facility] Comment on above: Result Comment: Fast ing Glucose result from 100 to 125 mg/dL suggests IMPAIRED HOMEOSTASIS per A.D.A. criteria. Performed By: #### L 300.3900, L300.4310, L503.6005, L500.4050, M200.1000, L100.0100 #### [facility] [address] [place], [address] Potassium [Moles/Vol] 4.0 mmol/L Normal 3.5-5.1 [facility] Comment on above: Performed By: #### L 300.3900, L300.4310, L503.6005, L500.4050, M200.1000, L100.0100 #### [facility] [address] [place], [address] Sodium [Moles/Vol] 138 mmol/L Normal 136-[address] [facility] Comment on above: Performed By: #### L 300.3900, L300.4310, L503.6005, L500.4050, M200.1000, L100.0100 #### [facility] [address] [place], [address] T PROT 6.6 g/dL Normal 6.4-8.2 [facility] Comment on above: Performed By: #### L 300.3900, L300.4310, L503.6005, L500.4050, M200.1000, L100.0100 #### [facility] [address] [place], [address] Urea nitrogen [Mass/Vol] 10 mg/dL Normal - [facility] Comment on above: Performed By: #### L 300.3900, L300.4310, L503.6005, L500.4050, M200.1000, L100.0100 #### [facility] [address] [place], [address] Lipid Profileon 07-19-2024 Cholesterol [Mass/Vol] 210 mg/dL High 200 [facility] Comment on above: Result Comment: <200 mg/dL Desirable 200-240 mg/dL Borderline >240 mg/dL High Risk Performed By: #### L 300.3900, L300.4310, L503.6005, L500.4050, M200.1000, L100.0100 #### [facility] [address] [place], [address] Cholesterol in HDL [Mass/Vol] 114 mg/dL Normal [facility] Comment on above: Result Comment: The drugs N-Acetylcysteine and Metamizole may falsely depress this assay. Reference Range HDL <40 mg/dL Low HDL Cholesterol HDL >or= 60 mg/dL High HDL Cholesterol Performed By: #### L 300.3900, L300.4310, L503.6005, L500.4050, M200.1000, L100.0100 #### [facility] [address] [place], [address] Cholesterol in LDL [Mass/Vol] 71 mg/dL Normal 0-130 [facility] Comment on above: Performed By: #### L 300.3900, L300.4310, L503.6005, L500.4050, M200.1000, L100.0100 #### [facility] [address] [place], [address] Cholesterol in VLDL [Mass/Vol] 25 mg/dL Normal 5-40 [facility] Comment on above: Performed By: #### L 300.3900, L300.4310, L503.6005, L500.4050, M200.1000, L100.0100 #### [facility] [address] [place], [address] Triglyceride [Mass/Vol] 124 mg/dL Normal [facility] Comment on above: Result Comment: The drugs N-Acetylcysteine and Metamizole may falsely depress this assay. Serum Triglycerides Reference Interval Normal <150 mg/dL Borderline high 150 - 199 mg/dL High 200 - 499 mg/dL Very High > or = 500 mg/dL Performed By: #### L 300.3900, L300.4310, L503.6005, L500.4050, M200.1000, L100.0100 #### [facility] [address] [place], [address] Thyroid Stim Hormone (TSH)on 07-19-2024 TSH 1.170 uIU/mL Normal 0.358-3.740 [facility] Comment on above: Performed By: #### L 300.3900, L300.4310, L503.6005, L500.4050, M200.1000, L100.0100 #### [facility] [address] [place], [address] MRA HEAD W/O CONTRASTon 11-0 MRA HEAD W/O CONTRAST ORIGINAL EXAMINATION: MRA OF THE HEAD WITHOUT CONTRAST 06/08/2024 9:50 am TECHNIQUE: MRA of the head was performed utilizing [id number] imaging with MIP images. No intravenous contrast was administered. COMPARISON: None HISTORY: ORDERING SYSTEM PROVIDED HISTORY: Reason for Exam: Trigeminal autonomic cephalalgia FINDINGS: ANTERIOR CIRCULATION: No significant stenosis of the intracranial internal carotid, anterior cerebral, or middle cerebral arteries. POSTERIOR CIRCULATION: No significant stenosis of the vertebral, basilar, or posterior cerebral arteries. There is origin of the right posterior cerebral artery. IMPRESSION: No aneurysm or significant large vessel stenosis. Interpreted by: Randall Lay Preliminary Report By: Randall Lay Electronically signed By Randall Lay Dictated Date: 06/08/2024 10:05:05 AM Prelim Date: 06/08/2024 10:06:50 AM Sign Date: 06/08/2024 10:06:50 AM Ordering Provider: BUNNY Vasquez [facility] MRA NECK W/O CONTRASTon 0 MRA NECK W/O CONTRAST ORIGINAL EXAMINATION: MRA OF THE NECK WITHOUT CONTRAST 06/08/2024 9:50 am TECHNIQUE: Multiplanar multisequence MRA of the neck was performed without the administration of intravenous contrast. Stenosis of the internal carotid arteries measured using NASCET criteria. COMPARISON: None. HISTORY: ORDERING SYSTEM PROVIDED HISTORY: Reason for Exam: Trigeminal autonomic cephalalgia FINDINGS: CAROTID ARTERIES: No dissection, arterial injury, or hemodynamically significant stenosis by NASCET criteria. VERTEBRAL ARTERIES: No dissection, arterial injury, or significant stenosis. IMPRESSION: No significant arterial stenosis in the neck. Interpreted by: Randall Lay Preliminary Report By: Randall Lay Electronically signed By Randall Lay Dictated Date: 06/08/2024 10:07:02 AM Prelim Date: 06/08/2024 10:07:33 AM Sign Date: 06/08/2024 10:07:33 AM Ordering Provider: BUNNY Vasquez [facility] MRI BRAIN W/ + W/O CONTRASTo n 06-08-2024 MRI BRAIN W/ + W/O CONTRAST ORIGINAL EXAMINATION: MRI OF THE BRAIN WITHOUT AND WITH CONTRAST 06/08/2024 8:59 am TECHNIQUE: Multiplanar multisequence MRI of the head/brain was performed without and with the administration of intravenous contrast. COMPARISON: MRI brain 05/15/2018. HISTORY: ORDERING SYSTEM PROVIDED HISTORY: Reason for Exam: Trigeminal autonomic cephalalgia FINDINGS: INTRACRANIAL STRUCTURES/VENTRICLES: There is no acute infarct. The ventricles sulci are within normal limits of size. There are few scattered punctate foci of increased T2 signal in the periventricular white matter bilaterally. No mass, hemorrhage or restricted diffusion. No lesion is identified along the expected course of either trigeminal complex. No brainstem or posterior fossa lesion. No area of abnormal contrast enhancement. ORBITS: The visualized portion of the orbits demonstrate no acute abnormality. SINUSES: The visualized paranasal sinuses and mastoid air cells demonstrate no acute abnormality. BONES/SOFT TISSUES: The bone marrow signal intensity appears normal. The soft tissues demonstrate no acute abnormality. No definite parotid lesion. IMPRESSION: No acute intracranial finding. No evidence of a cause for trigeminal neuralgia. Interpreted by: Randall Lay Preliminary Report By: Randall Lay Electronically signed By Randall Lay Dictated Date: 06/08/2024 9:03:10 AM Prelim Date: 06/08/2024 9:05:45 AM Sign Date: 06/08/2024 9:05:45 AM Ordering Provider: BUNNY Vasquez [facility] CBC W/Diff, Automatedon 09- Absolute Lymph 2.47 X10 3/uL Normal 0.83-4.51 [facility] Comment on above: Performed By: #### L 300.3900, L300.4310, L503.6005, L500.4050, M200.1000, L100.0100 #### [facility] [address] [place], [address] Absolute Neut 3.5 X10 3/uL Normal 2.0-7.7 [facility] Comment on above: Performed By: #### L 300.3900, L300.4310, L503.6005, L500.4050, M200.1000, L100.0100 #### [facility] [address] [place], [address] Basophils/100 WBC (Bld) 0.5 % Normal 0-1 [facility] Comment on above: Performed By: #### L 300.3900, L300.4310, L503.6005, L500.4050, M200.1000, L100.0100 #### [facility] [address] [place], [address] Eosinophils/100 WBC (Bld) 2.0 % Normal 0-5 [facility] Comment on above: Performed By: #### L 300.3900, L300.4310, L503.6005, L500.4050, M200.1000, L100.0100 #### [facility] [address] [place], [address] Erythrocyte distribution width (RBC) [Ratio] 16.1 % High 11.6-14.6 [facility] Comment on above: Performed By: #### L 300.3900, L300.4310, L503.6005, L500.4050, M200.1000, L100.0100 #### [facility] [address] [place], [address] Hematocrit (Bld) [Volume fraction] 37.4 % Normal 37-47 [facility] Comment on above: Performed By: #### L 300.3900, L300.4310, L503.6005, L500.4050, M200.1000, L100.0100 #### [facility] [address] [place], [address] Hemoglobin (Bld) [Mass/Vol] 12.4 g/dL Normal 12.0-15.0 [facility] Comment on above: Performed By: #### L 300.3900, L300.4310, L503.6005, L500.4050, M200.1000, L100.0100 #### [facility] [address], [address] IG% 0.200 Normal 0.0-0.9 [facility] Comment on above: Result Comment: IG% - Immature Granulocytes (promyelocytes, myelocytes and metamyelocytes) > 1% indicates that a LEFT SHIFT is Present. Performed By: #### L 300.3900, L300.4310, L503.6005, L500.4050, M200.1000, L100.0100 #### [facility] [address] [place], [address] Lymphocytes/100 WBC (Bld) 37.9 % Normal 19-41 [facility] Comment on above: Performed By: #### L 300.3900, L300.4310, L503.6005, L500.4050, M200.1000, L100.0100 #### [facility] [address] [place], [address] MCH (RBC) [Entitic mass] 27.6 pg Normal 27.0-32.0 [facility] Comment on above: Performed By: #### L 300.3900, L300.4310, L503.6005, L500.4050, M200.1000, L100.0100 #### [facility] [address] [place], [address] MCHC (RBC) [Mass/Vol] 33.2 g/dL Normal 32-36 [facility] Comment on above: Performed By: #### L 300.3900, L300.4310, L503.6005, L500.4050, M200.1000, L100.0100 #### [facility] [address] [place] [place], [address] MCV (RBC) [Entitic vol] 83.1 fL Normal 81-99 [facility] Comment on above: Performed By: #### L 300.3900, L300.4310, L503.6005, L500.4050, M200.1000, L100.0100 #### [facility] [address] [place], [address] Monocytes/100 WBC (Bld) 5.8 % Normal 0-10 [facility] Comment on above: Performed By: #### L 300.3900, L300.4310, L503.6005, L500.4050, M200.1000, L100.0100 #### [facility] [address] [place], [address] Neutrophils/100 WBC (Bld) 53.6 % Normal 47-70 [facility] Comment on above: Performed By: #### L 300.3900, L300.4310, L503.6005, L500.4050, M200.1000, L100.0100 #### [facility] [address] [place], [address] Nucleated RBC (Bld) [#/Vol] 0 10*3/uL Normal 0-5 [facility] Comment on above: Performed By: #### L 300.3900, L300.4310, L503.6005, L500.4050, M200.1000, L100.0100 #### [facility] [address] [place], [address] Platelet mean volume (Bld) [Entitic vol] 9.4 fL Normal 6.2-12.0 [facility] Comment on above: Performed By: #### L 300.3900, L300.4310, L503.6005, L500.4050, M200.1000, L100.0100 #### [facility] [address] [place], [address] Platelets (Bld) [#/Vol] 237 10*3/uL Normal 150-450 [facility] Comment on above: Performed By: #### L 300.3900, L300.4310, L503.6005, L500.4050, M200.1000, L100.0100 #### [facility] [address] [place], [address] RBC (Bld) [#/Vol] 4.50 10*6/uL Normal 4.2-5.4 [facility] Comment on above: Performed By: #### L 300.3900, L300.4310, L503.6005, L500.4050, M200.1000, L100.0100 #### [facility] [address] [place], [address] RDW SD 48.9 fl High 35.1-43.9 [facility] Comment on above: Performed By: #### L 300.3900, L300.4310, L503.6005, L500.4050, M200.1000, L100.0100 #### [facility] [address] [place], [address] WBC (Bld) [#/Vol] 6.5 10*3/uL Normal 4.4-11.[address] [facility] Comment on above: Performed By: #### L 300.3900, L300.4310, L503.6005, L500.4050, M200.1000, L100.0100 #### [facility] [address] [place], [address] Comprehensive Metabolic Prof [facility] 04-19-2024 Albumin [Mass/Vol] 3.3 g/dL Normal 3.2-5.[address] [facility] Comment on above: Performed By: #### L 300.3900, L300.4310, L503.6005, L500.4050, M200.1000, L100.0100 #### [facility] [address] [place], [address] Albumin/Globulin [Mass ratio] 0.9 {ratio} Normal 0.9-2.4 [facility] Comment on above: Performed By: #### L 300.3900, L300.4310, L503.6005, L500.4050, M200.1000, L100.0100 #### [facility] [address] [place], [address] ALK P 93 U/L Normal 45-117 [facility] Comment on above: Performed By: #### L 300.3900, L300.4310, L503.6005, L500.4050, M200.1000, L100.0100 #### [facility] [address] [place], [address] ALT [Catalytic activity/Vol] 16 U/L Normal 13-56 [facility] Comment on above: Performed By: #### L 300.3900, L300.4310, L503.6005, L500.4050, M200.1000, L100.0100 #### [facility] [address] [place], [address] AST [Catalytic activity/Vol] 26 U/L Normal 15-37 [facility] Comment on above: Result Comment: Slig ht Hemolysis, Result may be falsely increased. Performed By: #### L 300.3900, L300.4310, L503.6005, L500.4050, M200.1000, L100.0100 #### [facility] [address] [place], [address] Bilirubin [Mass/Vol] 0.20 mg/dL Normal 0.20-1.00 [facility] Comment on above: Result Comment: For patients on eltrombopag therapy, use of Dimension Hext TBIL is not recommended. Performed By: #### L 300.3900, L300.4310, L503.6005, L500.4050, M200.1000, L100.0100 #### [facility] [address] [place], [address] BUN/CRE 13.6 RATIO Normal 10-20 [facility] Comment on above: Performed By: #### L 300.3900, L300.4310, L503.6005, L500.4050, M200.1000, L100.0100 #### [facility] [address] [place], [address] CA,Total 9.0 mg/dL Normal 8.5-10.1 [facility] Comment on above: Performed By: #### L 300.3900, L300.4310, L503.6005, L500.4050, M200.1000, L100.0100 #### [facility] [address] [place], [address] Chloride [Moles/Vol] 109 mmol/L High 98-107 [facility] Comment on above: Performed By: #### L 300.3900, L300.4310, L503.6005, L500.4050, M200.1000, L100.0100 #### [facility] [address] [place], [address] CO2 [Moles/Vol] 23.0 mmol/L Normal 21.0-32.0 [facility] Comment on above: Performed By: #### L 300.3900, L300.4310, L503.6005, L500.4050, M200.1000, L100.0100 #### [facility] [address] [place], [address] Creatinine [Mass/Vol] 1.03 mg/dL High 0.55-1.02 [facility] Comment on above: Result Comment: The validity of the calculated GFR GFRAA in patients over 70 years has not been determined. Clinical correlation is essential. Performed By: #### L 300.3900, L300.4310, L503.6005, L500.4050, M200.1000, L100.0100 #### [facility] [address] [place], [address] EST GFR - AA 69 mL/min Normal >60 [facility] Comment on above: Result Comment: Afri can Gambian GFR Calc Performed By: #### L 300.3900, L300.4310, L503.6005, L500.4050, M200.1000, L100.0100 #### [facility] [address] [place], [address] GAP 5 Normal 5-15 [facility] Comment on above: Performed By: #### L 300.3900, L300.4310, L503.6005, L500.4050, M200.1000, L100.0100 #### [facility] [address] [place], [address] GFR/1.73 sq M.predicted among non-blacks MDRD (S/P/Bld) [Vol rate/Area] 57 mL/min/{1.73_m2} Low >60 [facility] Comment on above: Result Comment: Non- GFR Calc Performed By: #### L 300.3900, L300.4310, L503.6005, L500.4050, M200.1000, L100.0100 #### [facility] [address] [place], [address] Globulin (S) [Mass/Vol] 3.7 g/dL Normal 2.2-4.2 [facility] Comment on above: Performed By: #### L 300.3900, L300.4310, L503.6005, L500.4050, M200.1000, L100.0100 #### [facility] [address] [place], [address] Glucose [Mass/Vol] 116 mg/dL High 74-[address] [facility] Comment on above: Result Comment: Fast ing Glucose result from 100 to 125 mg/dL suggests IMPAIRED HOMEOSTASIS per A.D.A. criteria. Performed By: #### L 300.3900, L300.4310, L503.6005, L500.4050, M200.1000, L100.0100 #### [facility] [address] [place], [address] Potassium [Moles/Vol] 4.1 mmol/L Normal 3.5-5.1 [facility] Comment on above: Result Comment: Slig ht Hemolysis, Result may be falsely increased. Performed By: #### L 300.3900, L300.4310, L503.6005, L500.4050, M200.1000, L100.0100 #### [facility] [address] [place], [address] Sodium [Moles/Vol] 137 mmol/L Normal 136-[address] [facility] Comment on above: Performed By: #### L 300.3900, L300.4310, L503.6005, L500.4050, M200.1000, L100.0100 #### [facility] [address] [place], [address] T PROT 7.0 g/dL Normal 6.4-8.2 [facility] Comment on above: Performed By: #### L 300.3900, L300.4310, L503.6005, L500.4050, M200.1000, L100.0100 #### [facility] [address] [place], [address] Urea nitrogen [Mass/Vol] 14 mg/dL Normal 7-18 [facility] Comment on above: Performed By: #### L 300.3900, L300.4310, L503.6005, L500.4050, M200.1000, L100.0100 #### [facility] [address] [place], [address] Lipid Profileon 04-19-2024 Cholesterol [Mass/Vol] 223 mg/dL High 200 [facility] Comment on above: Result Comment: <200 mg/dL Desirable 200-240 mg/dL Borderline >240 mg/dL High Risk Performed By: #### L 300.3900, L300.4310, L503.6005, L500.4050, M200.1000, L100.0100 #### [facility] [address] [place], [address] Cholesterol in HDL [Mass/Vol] 121 mg/dL Normal [facility] Comment on above: Result Comment: The drugs N-Acetylcysteine and Metamizole may falsely depress this assay. Reference Range HDL <40 mg/dL Low HDL Cholesterol HDL >or= 60 mg/dL High HDL Cholesterol Performed By: #### L 300.3900, L300.4310, L503.6005, L500.4050, M200.1000, L100.0100 #### [facility] [address] [place], [address] Cholesterol in LDL [Mass/Vol] 59 mg/dL Normal 0-130 [facility] Comment on above: Performed By: #### L 300.3900, L300.4310, L503.6005, L500.4050, M200.1000, L100.0100 #### [facility] [address] [place], [address] Cholesterol in VLDL [Mass/Vol] 43 mg/dL High 5-40 [facility] Comment on above: Performed By: #### L 300.3900, L300.4310, L503.6005, L500.4050, M200.1000, L100.0100 #### [facility] [address] [place], [address] Triglyceride [Mass/Vol] 214 mg/dL High [facility] Comment on above: Result Comment: The drugs N-Acetylcysteine and Metamizole may falsely depress this assay. Serum Triglycerides Reference Interval Normal <150 mg/dL Borderline high 150 - 199 mg/dL High 200 - 499 mg/dL Very High > or = 500 mg/dL Performed By: #### L 300.3900, L300.4310, L503.6005, L500.4050, M200.1000, L100.0100 #### [facility] [address] [place], [address] Thyroid Stim Hormone (TSH)on 04-19-2024 TSH 1.100 uIU/mL Normal 0.358-3.740 [facility] Comment on above: Performed By: #### L 503.6030 #### [facility] [address], [address] Vitamin B12on 04-19-2024 Cobalamin (Vitamin B12) [Mass/Vol] 606 pg/mL Normal 211-911 [facility] Comment on above: Performed By: #### L 300.3900, L300.4310, L503.6005, L500.4050, M200.1000, L100.0100 #### [facility] [address] [facility] [place], [address] Vitamin D,25 Hydroxyon 04-19 Vitamin D 25-OH 115.0 ng/mL Normal [facility] Comment on above: Result Comment: Aziza min D 25(OH) Status Range Deficiency <20 ng/mL (50nmol/L) Insufficiency 20 - 30 ng/mL (50 - 75 nmol/L) Sufficiency 30 - 100 ng/mL (75 - 250 nmol/L) Toxicity >100 ng/mL (>250 nmol/L) Evidence suggests that patients undergoing fluorescein dye angiography can retain small amounts of fluorescein in the body for up to 48 to 72 hours post-treatment. In the cases of patients with renal insufficiency, retention could be much longer. Samples containing fluorescein can produce falsely elevated values when tested with the [employer] Centaur Vitamin D assay. With fluorescein interference, observed Vitamin D values can be as high as >150 ng/mL (>375 nmol/L). Samples should be resubmitted post fluorescein clearance to ensure there is no interference with Vitamin D test results. Performed By: #### L 300.3900, L300.4310, L503.6005, L500.4050, M200.1000, L100.0100 #### [facility] [address] [place], [address] PAP IG HPV APTIMA 16/18,45on 04-16-2024 ADEQ Comment Normal . [facility] Comment on above: Order Comment: Speci men Comment: [id number] Comment: Source.............Cervix;EndocervixSpecimen Comment: Other..............Post MenopausalSpecimen Comment: No. of containers..01 ThinPrep Vial Result Comment: Sati sfactory for evaluation. Endocervical and/or squamous metaplastic cells (endocervical component) are present. Performed By: #### L 300.3900, L300.4310, L503.6005, L500.4050, M200.1000, L100.0100 #### [facility] [address] [place], [place], [address] COMM . Normal . [facility] Comment on above: Order Comment: Speci men Comment: [id number] Comment: Source.............Cervix;EndocervixSpecimen Comment: Other..............Post MenopausalSpecimen Comment: No. of containers..01 ThinPrep Vial Performed By: #### L 300.3900, L300.4310, L503.6005, L500.4050, M200.1000, L100.0100 #### [facility] [address] [place], [address] COMMENT Comment Normal . [facility] Comment on above: Order Comment: Speci men Comment: [id number] Comment: Source.............Cervix;EndocervixSpecimen Comment: Other..............Post MenopausalSpecimen Comment: No. of containers..01 ThinPrep Vial Result Comment: This liquid based ThinPrep(R) pap test was screened with the use of an image guided system. Performed By: #### L 300.3900, L300.4310, L503.6005, L500.4050, M200.1000, L100.0100 #### [facility] [address] [place], [place], [address] DIAG Comment Normal . [facility] Comment on above: Order Comment: Speci men Comment: [id number] Comment: Source.............Cervix;EndocervixSpecimen Comment: Other..............Post MenopausalSpecimen Comment: No. of containers..01 ThinPrep Vial Result Comment: NEGA TIVE FOR INTRAEPITHELIAL LESION OR MALIGNANCY. Performed By: #### L 300.3900, L300.4310, L503.6005, L500.4050, M200.1000, L100.0100 #### [facility] [address] [place], [place], [id number] HPV APTIMA, HR Negative Normal Negative [facility] Comment on above: Order Comment: Speci men Comment: [id number] Comment: Source.............Cervix;EndocervixSpecimen Comment: Other..............Post MenopausalSpecimen Comment: No. of containers..01 ThinPrep Vial Result Comment: This nucleic acid amplification test detects fourteen high- risk HPV types (16,18,31,33,35,39,45,51,52,56,58,59,66,68) without differentiation. Performed By: #### L 300.3900, L300.4310, L503.6005, L500.4050, M200.1000, L100.0100 #### [facility] [address] [place], [place], [address] HPV Hazel Rfx Comment Normal . [facility] Comment on above: Order Comment: Speci men Comment: [id number] Comment: Source.............Cervix;EndocervixSpecimen Comment: Other..............Post MenopausalSpecimen Comment: No. of containers..01 ThinPrep Vial Result Comment: Crit kaity not met, HPV Genotype not performed. Performed at: - [facility] [id number] Resident Advisor: Cecelia Wong MD, Phone: [phone] Performed at: = - [facility] [address] [id number] Resident Advisor: Cecelia Wong MD, Phone: [phone] Performed By: #### L 300.3900, L300.4310, L503.6005, L500.4050, M200.1000, L100.0100 #### [facility] [address] [place], [place], [id number] PAPSMR Comment Normal . [facility] Comment on above: Order Comment: Speci men Comment: [id number] Comment: Source.............Cervix;EndocervixSpecimen Comment: Other..............Post MenopausalSpecimen Comment: No. of containers..01 ThinPrep Vial Result Comment: The Pap smear is a screening test designed to aid in the detection of premalignant and malignant conditions of the uterine cervix. It is not a diagnostic procedure and should not be used as the sole means of detecting cervical cancer. Both false-positive and false-negative reports do occur. Performed By: #### L 300.3900, L300.4310, L503.6005, L500.4050, M200.1000, L100.0100 #### [facility] [address] [place], [place], [address] PERFORM Comment Normal . [facility] Comment on above: Order Comment: Speci men Comment: [id number] Comment: Source.............Cervix;EndocervixSpecimen Comment: Other..............Post MenopausalSpecimen Comment: No. of containers..01 ThinPrep Vial Result Comment: Georgie Salas, Stage Director (ASCP) Performed By: #### L 300.3900, L300.4310, L503.6005, L500.4050, M200.1000, L100.0100 #### [facility] [address] [facility] [address] [place], [place], [address] Brain without Contraston Brain without Contrast [facility] Imaging Services [address] [place], [place] [address] Brain without Contrast MR#: [id number] Acct: [id number] Name: MORENA PATTON Rep #: [id number] : 1960 F 64 From: Varun Kerr MD PCP: Dr. Stoney Hudson MD Status: REG CLI Study: Brain without Contrast Date of Exam: 04/12/24 Exam# [id number] Ordering Dr: Stoney Hudson MD [id number] STUDY: MRI BRAIN WITHOUT CONTRAST REASON FOR EXAM: Female, 64 years old. Headache, cluster headache TECHNIQUE: Standardized multiplanar fat and water weighted pulse sequences were obtained. COMPARISON: CT April 01, 2024. MRI June 22, 2021. FINDINGS: Normal size of the ventricles and extra-axial spaces for the patient''s age. There are a limited number of small white matter hyperintensities, distributed throughout the deep white matter tracts of the cerebral hemispheres, consistent with mild chronic white matter ischemic changes versus migraines. There is no evidence for recent intracranial ischemia or other cause of cytotoxic edema on diffusion weighted imaging (DWI). Normal T2* images of the brain without demonstrated susceptibility artifact. There is no demonstrated hemosiderin stain. Normal bilateral basal ganglia. Normal thalami. There is no extra-axial fluid accumulation. Normal flow voids within the major intracranial circulation suggesting patency by spin echo criteria. Normal sella turcica, pituitary gland, infundibular stalk, optic chiasm and hypothalamus. Normal tectal plate and pineal gland. Normal midbrain, anatoly and medulla. Normal cerebellum. Normal basal cisterns. There is mild bilateral mastoid fluid. Normal bilateral internal auditory canals. No demonstrated orbital abnormality, within the constraints of a routine brain study. Normal visualized paranasal sinuses. Normal calvarium and skull base. Normal visualized soft tissue structures. Normal visualized upper cervical spine. MRI/Brain without Contrast IMPRESSION: No acute intracranial abnormality. Mild white matter signal alteration suggesting microangiopathy versus migraines Electronically Signed: Varun Kerr MD at 22:08 EDT Reading Location ID and State: [facility] / [place] , Service support , CC: Dr. Stoney Hudson MD [employer]: Signed Normal [facility] Reinsurance Clerk Office Visit Reporton 04-11-2024 Reinsurance Clerk Office Visit Report [facility] [address], [address] [place] [address] OFFICE VISIT Date of Service: 04/11/24 MR#: [id number] Acct: [id number] Name: MORENA PATTON Rep #: [id number] : 1960 Provider: KATIE Leslie Age/Sex: 64/F [place] [facility] [place]: Signed Intake Vital Signs 04/01/24 11:00 04/05/24 09:41 04/11/24 14:35 Height 5 ft 6 in 5 ft 6 in 5 ft 6 in Weight: 144 lb BMI 23.2 BP 142/88 H Intake Visit Reasons: Annual (APPLICATION SUPPORT INTERN) Chief Complaint: annual, abdominal pain Is patient in pain?: Yes Pain scale (1-10): 7 Allergies buprenorphine (From Butrans) Allergy (Verified 04/11/24 14:32) Rash NSAIDS (Non-Steroidal Anti-Inflamma Adverse Reaction (Verified 04/11/24 14:32) Nausea Medications ???Medication ???Instructions ???Recorded ???Confirmed ???Type rollator walker with seat #1 ea 10/09/20 02/16/24 Rx cyclobenzaprine 10 mg tablet 20 mg PO TID 10/24/20 04/11/24 History cyanocobalamin (vitamin B-12) 1,000 mcg IM Q30D #1 mL 12/20/20 04/11/24 Rx 1,000 mcg/mL injection solution diclofenac sodium 1 % topical gel 4 g topical .QID #100 grams 03/03/21 04/11/24 Rx syringe with needle 1 mL 25 gauge #100 ea 03/05/21 02/16/24 History x 1 albuterol sulfate 90 mcg/actuation 2 puff inhalation Q4H PRN PRN SOB, 04/16/21 04/11/24 Rx aerosol inhaler wheezing #8.5 grams valacyclovir 500 mg tablet 500 mg PO DAILY Herpes Flare #90 10/28/21 04/11/24 Rx (Valtrex) tabs ergocalciferol (vitamin D2) 1,250 50,000 unit PO Q2W 11/26/21 04/11/24 History mcg (50,000 unit) capsule ferrous gluconate 324 mg (37.5 mg 324 mg PO BIDCM 30 days #60 tabs 02/16/23 04/11/24 Rx iron) tablet lidocaine 5 % topical patch 1 patch topical DAILY 14 days #14 02/16/23 04/11/24 Rx ea triamterene 37.5 1 cap PO DAILY 30 days #90 caps 02/16/23 04/11/24 Rx mg-hydrochlorothiazide 25 mg capsule Is last menstrual period known: No Post menopausal: Yes Date of menopause: 08/02/03 (approx; 20 + years ago per patient. 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 B12 deficiency Anemia Hypertension GI bleed PUD (peptic ulcer disease) Surgical History Hx of bariatric surgery S/P H/O gastric bypass ( 1999) Family History Father Myocardial infarction Alcohol abuse Heart disease CAD (coronary artery disease) Mother CVA (cerebral vascular accident) Hypertension Thrombosis Alcohol abuse Sister Lupus Social History (Updated 04/11/24 @ 14:34 by Bette Mcwilliams) household members: other details: grandson housing: house current occupational status: retired and disabled history of recent travel: No sexually active: No Smoking Status: Former smoker Smokeless tobacco user: other alcohol intake: current alcohol intake frequency: 3 or more drinks per day details: Patient reports history of at 2-tall boys daily at least. substance use type: does not use what type of physical activity do you participate in: none and walking seatbelt use: always do you feel safe at home: Yes additional social history: single History 4 Elective abortions Hx Para 3 Spontaneous abortions Hx # Term Pregnancies Ectopic pregnancies Hx # Pregnancies 1 Multiple births # of living children 3 Past Pregnancies Del. Date Name GA/Weeks Outcome Route Bth Weight Infant Gen Labor Lgth Anesthesia Del Locatn Provider FOB Unknown 03/03/75 Unknown 11/11/81 Unknown 04/26/94 HPI Encounter for routine gynecological examination Details: MORENA PATTON is a 64 year old who presents for annual exam. She reports no issues or concerns today. Last PAP: 2020 History of abnormal PAP: no Last mammogram: 2020 History of abnormal mammogram: no Colon cancer screenin Other preventative health care screenings: Dr. Hudson; PCP Female Reproductive History Questions: metorrhagia: No, sexually active: No, dyspareunia: No and PCB: No Date of menopause: 08/02/03 (approx; 20 + years ago per patient. ) Menopausal Symptoms: Yes hot flashes, No night sweats, No weight change, No mood changes (more content not included)... Normal [facility] Culture, Blood (WB)on 2023 CUB Blood cultures x2, f rom two different sites No growth in 5 days. Normal [facility] Comment on above: Performed By: #### L 500.4050, L503.6550, L506.0250, L501.2300, L3130.0010, L501.5200, L503.0105, L504.2610, L100.0100 #### [facility] Laboratory [address] [facility] [place], [address] Emergency Department Summary on 04-05-2024 Emergency Department Summary [facility] Medical Records Department [address] [place] [address] Emergency Department Summary 04/05/24 MR#: [id number] Acct: [id number] Name: MORENA PATTON Rep #: [id number] : 1960 64 From: Albert Carbone MD PCP: Dr. Stoney Hudson MD Status:PRE ER Location: ED HPI History of Present Illness Chief Complaint: Headache Informant: patient Onset/Context/Timing Onset: Days Context: Gradual Timing: Continuous Quality -Headache: Positive for Similar Prior Headaches Current Severity: Mild Maximum Severity: Mild Associated Symptoms/Injury Associated Symptoms: Negative for Fever, Nausea, Vomiting, Tingling, Preceding Aura or Visual Loss Injury - DAVALOS: Negative for Direct Trauma, Fall or Assault Narrative Narrative: 64-year-old female history of anemia, PTSD, chronic pain. She was seen 4 days ago here and had a CAT scan and labs which were unremarkable. Normal sed rate. She has acute on chronic what she describes as head pain. Denies being on any blood thinners. Has had no recent trauma. No fever or nasal congestion. No neck pain. Prior similar symptoms: Yes Recent Illness/Hospitalization: No 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 B12 deficiency Anemia Hypertension GI bleed PUD (peptic ulcer disease) Home Medications ???Medication ???Instructions ???Recorded ???Last Taken ???Type temazepam 30 mg capsule 30 mg PO QHS 03/16/16 03/15/16 History rollator walker with seat #1 ea 10/09/20 Unknown Rx cyclobenzaprine 10 mg tablet 20 mg PO TID 10/24/20 Unknown History cyanocobalamin (vitamin B-12) 1,000 mcg IM Q30D #1 mL 12/20/20 Unknown Rx 1,000 mcg/mL injection solution diclofenac sodium 1 % topical gel 4 g topical .QID #100 grams 03/03/21 Unknown Rx omeprazole 40 mg capsule,delayed 40 mg PO DAILY #90 caps 03/03/21 Unknown Rx release syringe with needle 1 mL 25 gauge #100 ea 03/05/21 Unknown History x 1 albuterol sulfate 90 mcg/actuation 2 puff inhalation Q4H PRN PRN SOB, 04/16/21 Unknown Rx aerosol inhaler wheezing #8.5 grams valacyclovir 500 mg tablet 500 mg PO DAILY Herpes Flare #90 10/28/21 Unknown Rx (Valtrex) tabs ergocalciferol (vitamin D2) 1,250 50,000 unit PO Q2W 11/26/21 Unknown History mcg (50,000 unit) capsule ferrous gluconate 324 mg (37.5 mg 324 mg PO BIDCM 30 days #60 tabs 02/16/23 Unknown Rx iron) tablet lidocaine 5 % topical patch 1 patch topical DAILY 14 days #14 02/16/23 Unknown Rx ea triamterene 37.5 1 cap PO DAILY 30 days #90 caps 02/16/23 Unknown Rx mg-hydrochlorothiazide 25 mg capsule mecobalamin (vitamin B12) 5,000 5,000 mcg PO QWEEK #10 tabs 11/18/23 Unknown Rx mcg disintegrating tablet Allergy/AdvReac Type Severity Reaction Status Date / Time buprenorphine (From Mel) Allergy Rash Verified 04/05/24 09:41 NSAIDS (Non-Steroidal AdvReac Nausea Verified 04/05/24 09:41 Anti-Inflamma Family History Father Myocardial infarction Alcohol abuse Heart disease CAD (coronary artery disease) Mother CVA (cerebral vascular accident) Hypertension Thrombosis Alcohol abuse Sister Lupus Surgical History Hx of bariatric surgery S/P H/O gastric bypass ( 1999) Social History household members: other details: grandson housing: house current occupational status: retired and disabled history of recent travel: No Smoking Status: Former smoker Smokeless tobacco user: other alcohol intake: current alcohol intake frequency: 3 or more drinks per day details: Patient reports history of at 2-tall boys daily at least. substance use type: does not use what type of physical activity do you participate in: none and walking seatbelt use: always do you feel safe at home: Yes additional social history: single ROS ROS ED ROS Narrative Head pain Constitutional Constitutional ED: Denies chills or fever(s) Eyes Eyes: Denies blurry vision ENT ENT ED: Denies ear pain Cardiovascular Cardiovascular: Denies chest pain Respiratory/Chest Respiratory/Chest: Denies cough or dyspnea Gastrointestinal Gastrointestinal: Denies abdominal pain or constipat (more content not included)... Normal [facility] 12 Lead EKGon 04-01-2024 12 Lead EKG [facility] Cardiovascular Services [address] [place] [address] 12 Lead EKG 04/01/24 1131 MR#: [id number] Acct: [id number] Name: MORENA PATTON Rep #: [id number] : 1960 64 From: Ta Montoya MD Attending Dr: Status: DEP ER Ordering Dr: Randall Cheng DO Date: 04/01/24 Location: ED Sex: F AA Admitted: Test Reason : NEURO Blood Pressure : / mmHG Vent. Rate : 057 BPM Atrial Rate : 057 BPM P-R Int : 156 ms QRS Dur : 068 ms QT Int : 446 ms P-R-T Axes : 071 010 062 degrees QTc Int : 434 ms Sinus bradycardia Possible Left atrial enlargement Borderline ECG Confirmed by DORIS WOO, TA ([id number]), sports editor CLARAENZO BURTON ([id number]) on 04/04/2024 8:10:12 AM Referred By: Confirmed By:TA MONTOYA MD 04/04/24 0810 Date Ta Montoya MD CC: Dr. Randall Cheng DO; Dr. Stoney Hudson MD Signed Normal [facility] Bedside Glucoseon 04-01-2024 FINGERSTICK GLU 126 mg/dL High 74-106 [facility] Comment on above: Result Comment: EDEL FIELDS OF PATIENT CARE PER NURSING PROTOCOL Performed By: #### L 300.3900, L300.4310, L503.6005, L500.4050, M200.1000, L100.0100 #### [facility] Laboratory [address] [place], [address] Brain/Head without Contrasto n 04-01-2024 Brain/Head without Contrast [facility] Imaging Services [address] [place] [address] Brain/Head without Contrast MR#: [id number] Acct: [id number] Name: MORENA PATTON Rep #: [id number] : 1960 F 64 From: Sam virk DO PCP: Dr. Stoney Hudson MD Status: REG Study: Brain/Head without Contrast Date of Exam: 03/04 08/25 Exam# [id number] Ordering Dr: Randall Cheng DO [id number] EXAM: CT HEAD WITHOUT INTRAVENOUS CONTRAST CLINICAL INDICATION: Headache TECHNIQUE: Multiple axial images were obtained of the head without intravenous contrast. This CT exam was performed using one or more of the following dose reduction techniques: automated exposure control, adjustment of the mA and/or kV according to patient size, and/or use of iterative reconstruction technique. COMPARISON: CT head, 02/13/2023 FINDINGS: BRAIN AND EXTRA-AXIAL SPACES: No significant abnormality. No intra- or extra-axial hemorrhage. No evidence of acute infarct. No intracranial mass or mass effect. There is preservation of the kasper/white matter interface. Ventricles are appropriate for age. Basal cisterns are patent. BONES/JOINTS: No significant abnormality. No discrete lytic or blastic abnormalities. SINUSES: No significant findings. MASTOID AIR CELLS: No significant effusion. ORBITS: No acute findings. CT/Brain/Head without Contrast IMPRESSION: Negative head/brain CT without intravenous contrast. Electronically Signed: Sam Dillard DO at 12:22 EDT , CC: Dr. Randall Cheng DO; Dr. Stoney Hudson MD [employer]: Signed Normal [facility] CBC W/Diff, Automatedon 08 Absolute Lymph 2.12 X10 3/uL Normal 0.83-4.51 [facility] Comment on above: Performed By: #### L 300.3900, L300.4310, L503.6005, L500.4050, M200.1000, L100.0100 #### [facility] Laboratory [address] [place], [address] Absolute Neut 1.0 X10 3/uL Low 2.0-7.7 [facility] Comment on above: Performed By: #### L 300.3900, L300.4310, L503.6005, L500.4050, M200.1000, L100.0100 #### [facility] Laboratory [address] [place], [address] Basophils/100 WBC (Bld) 0.6 % Normal 0-1 [facility] Comment on above: Performed By: #### L 300.3900, L300.4310, L503.6005, L500.4050, M200.1000, L100.0100 #### [facility] Laboratory [address] [place], [address] Eosinophils/100 WBC (Bld) 1.2 % Normal 0-5 [facility] Comment on above: Performed By: #### L 300.3900, L300.4310, L503.6005, L500.4050, M200.1000, L100.0100 #### [facility] Laboratory [address], [address] Erythrocyte distribution width (RBC) [Ratio] 16.7 % High 11.6-14.6 [facility] Comment on above: Performed By: #### L 300.3900, L300.4310, L503.6005, L500.4050, M200.1000, L100.0100 #### [facility] Laboratory [address] [facility] [place], [address] Hematocrit (Bld) [Volume fraction] 40.5 % Normal 37-47 [facility] Comment on above: Performed By: #### L 300.3900, L300.4310, L503.6005, L500.4050, M200.1000, L100.0100 #### [facility] Laboratory [address], [address] Hemoglobin (Bld) [Mass/Vol] 13.1 g/dL Normal 12.0-15.0 [facility] Comment on above: Performed By: #### L 300.3900, L300.4310, L503.6005, L500.4050, M200.1000, L100.0100 #### [facility] Laboratory [address] [place], [address] IG% 0.300 Normal 0.0-0.9 [facility] Comment on above: Result Comment: IG% - Immature Granulocytes (promyelocytes, myelocytes and metamyelocytes) > 1% indicates that a LEFT SHIFT is Present. Performed By: #### L 300.3900, L300.4310, L503.6005, L500.4050, M200.1000, L100.0100 #### [facility] Laboratory [address] [place], [address] Lymphocytes/100 WBC (Bld) 61.1 % High 19-41 [facility] Comment on above: Performed By: #### L 300.3900, L300.4310, L503.6005, L500.4050, M200.1000, L100.0100 #### [facility] Laboratory [address] [place], [address] MCH (RBC) [Entitic mass] 27.1 pg Normal 27.0-32.0 [facility] Comment on above: Performed By: #### L 300.3900, L300.4310, L503.6005, L500.4050, M200.1000, L100.0100 #### [facility] Laboratory [address] [place], [address] MCHC (RBC) [Mass/Vol] 32.3 g/dL Normal 32-36 [facility] Comment on above: Performed By: #### L 300.3900, L300.4310, L503.6005, L500.4050, M200.1000, L100.0100 #### [facility] Laboratory [address] [place], [address] MCV (RBC) [Entitic vol] 83.7 fL Normal 81-99 [facility] Comment on above: Performed By: #### L 300.3900, L300.4310, L503.6005, L500.4050, M200.1000, L100.0100 #### [facility] Laboratory [address] [place], [address] Monocytes/100 WBC (Bld) 7.5 % Normal 0-10 [facility] Comment on above: Performed By: #### L 300.3900, L300.4310, L503.6005, L500.4050, M200.1000, L100.0100 #### [facility] Laboratory [address] [place], [address] Neutrophils/100 WBC (Bld) 29.3 % Low 47-70 [facility] Comment on above: Performed By: #### L 300.3900, L300.4310, L503.6005, L500.4050, M200.1000, L100.0100 #### [facility] Laboratory [address] [place], [address] Nucleated RBC (Bld) [#/Vol] 0 10*3/uL Normal 0-5 [facility] Comment on above: Performed By: #### L 300.3900, L300.4310, L503.6005, L500.4050, M200.1000, L100.0100 #### [facility] Laboratory [address] [place], [address] Platelet mean volume (Bld) [Entitic vol] 9.9 fL Normal 6.2-12.0 [facility] Comment on above: Performed By: #### L 300.3900, L300.4310, L503.6005, L500.4050, M200.1000, L100.0100 #### [facility] Laboratory [address] [place], [address] Platelets (Bld) [#/Vol] 221 10*3/uL Normal 150-450 [facility] Comment on above: Performed By: #### L 300.3900, L300.4310, L503.6005, L500.4050, M200.1000, L100.0100 #### [facility] Laboratory [address] [place], [address] RBC (Bld) [#/Vol] 4.84 10*6/uL Normal 4.2-5.4 [facility] Comment on above: Performed By: #### L 300.3900, L300.4310, L503.6005, L500.4050, M200.1000, L100.0100 #### [facility] Laboratory [address] [place], [address] RDW SD 51.3 fl High 35.1-43.9 [facility] Comment on above: Performed By: #### L 300.3900, L300.4310, L503.6005, L500.4050, M200.1000, L100.0100 #### [facility] Laboratory [address] [place], [address] WBC (Bld) [#/Vol] 3.5 10*3/uL Low 4.4-11.[address] [facility] Comment on above: Performed By: #### L 300.3900, L300.4310, L503.6005, L500.4050, M200.1000, L100.0100 #### [facility] Laboratory [address] [place], [address] Chest PA and Lateralon 04-01 Chest PA and Lateral [facility] Imaging Services [address] [place] [address] Chest PA and Lateral MR#: [id number] Acct: [id number] Name: MORENA PATTON Rep #: [id number] : 1960 F 64 From: Sam virk DO PCP: Dr. Stoney Hudson MD Status: [facility] ER Study: Chest PA and Lateral Date of Exam: 04/01/24 Exam# [id number] Ordering Dr: Randall Cheng DO [id number] EXAM: XR CHEST, 2 VIEWS CLINICAL INDICATION: Cough TECHNIQUE: Frontal and lateral views of the chest. COMPARISON: 11/16/2023 FINDINGS: LUNGS AND PLEURAL SPACES: Left lower lobe pulmonary opacity is likely atelectasis or perhaps pneumonia. No pneumothorax. No effusion. HEART: No significant abnormality. Cardiac silhouette not enlarged. MEDIASTINUM: Central airways and mediastinal contour are unremarkable. BONES/JOINTS: Degenerative changes in the spine and shoulders. No acute fracture. SOFT TISSUES: No significant abnormality. VASCULATURE: Atherosclerosis. RAD/Chest PA and Lateral IMPRESSION: Left lower lobe pulmonary opacity is likely atelectasis or perhaps pneumonia. Electronically Signed: Sam VLuis Alberto Dillard DO at 12:32 EDT , CC: Dr. Randall Cheng DO; Dr. Stoney Hudson MD [employer]: Signed Normal [facility] Comprehensive Metabolic Prof ilon 04-01-2024 Albumin [Mass/Vol] 3.2 g/dL Normal 3.2-5.[address] [facility] Comment on above: Order Comment: 'TROP ' Serial specimen #1, #2 or #3: 1 Performed By: #### L 300.3900, L300.4310, L503.6005, L500.4050, M200.1000, L100.0100 #### [facility] Laboratory [address] [place], [address] Albumin/Globulin [Mass ratio] 0.9 {ratio} Normal 0.9-2.4 [facility] Comment on above: Order Comment: 'TROP ' Serial specimen #1, #2 or #3: 1 Performed By: #### L 300.3900, L300.4310, L503.6005, L500.4050, M200.1000, L100.0100 #### [facility] Laboratory [address] [place], [address] ALK P 102 U/L Normal 45-117 [facility] Comment on above: Order Comment: 'TROP ' Serial specimen #1, #2 or #3: 1 Performed By: #### L 300.3900, L300.4310, L503.6005, L500.4050, M200.1000, L100.0100 #### [facility] Laboratory [address] [place], [address] ALT [Catalytic activity/Vol] 19 U/L Normal 13-56 [facility] Comment on above: Order Comment: 'TROP ' Serial specimen #1, #2 or #3: 1 Performed By: #### L 300.3900, L300.4310, L503.6005, L500.4050, M200.1000, L100.0100 #### [facility] Laboratory [address] [place], [address] AST [Catalytic activity/Vol] 25 U/L Normal 15-37 [facility] Comment on above: Order Comment: 'TROP ' Serial specimen #1, #2 or #3: 1 Performed By: #### L 300.3900, L300.4310, L503.6005, L500.4050, M200.1000, L100.0100 #### [facility] Laboratory [address] [place], [address] Bilirubin [Mass/Vol] 0.30 mg/dL Normal 0.20-1.00 [facility] Comment on above: Order Comment: 'TROP ' Serial specimen #1, #2 or #3: 1 Result Comment: For patients on eltrombopag therapy, use of Dimension Hext TBIL is not recommended. Performed By: #### L 300.3900, L300.4310, L503.6005, L500.4050, M200.1000, L100.0100 #### [facility] Laboratory [address] [place], [address] BUN/CRE 8.7 RATIO Low 10-20 [facility] Comment on above: Order Comment: 'TROP ' Serial specimen #1, #2 or #3: 1 Performed By: #### L 300.3900, L300.4310, L503.6005, L500.4050, M200.1000, L100.0100 #### [facility] Laboratory [address] [place], [address] CA,Total 9.1 mg/dL Normal 8.5-10.1 [facility] Comment on above: Order Comment: 'TROP ' Serial specimen #1, #2 or #3: 1 Performed By: #### L 300.3900, L300.4310, L503.6005, L500.4050, M200.1000, L100.0100 #### [facility] Laboratory [address] [place], [address] Chloride [Moles/Vol] 114 mmol/L High 98-107 [facility] [place] Comment on above: Order Comment: 'TROP ' Serial specimen #1, #2 or #3: 1 Performed By: #### L 300.3900, L300.4310, L503.6005, L500.4050, M200.1000, L100.0100 #### [facility] [address] [place], [address] CO2 [Moles/Vol] 19.0 mmol/L Low 21.0-32.0 [facility] Comment on above: Order Comment: 'TROP ' Serial specimen #1, #2 or #3: 1 Performed By: #### L 300.3900, L300.4310, L503.6005, L500.4050, M200.1000, L100.0100 #### [facility] [address] [place], [address] Creatinine [Mass/Vol] 1.03 mg/dL High 0.55-1.02 [facility] Comment on above: Order Comment: 'TROP ' Serial specimen #1, #2 or #3: 1 Result Comment: The validity of the calculated GFR GFRAA in patients over 70 years has not been determined. Clinical correlation is essential. Performed By: #### L 300.3900, L300.4310, L503.6005, L500.4050, M200.1000, L100.0100 #### [facility] [address] [place], [address] ECRCL 51.66 ml/min Normal [facility] Comment on above: Order Comment: 'TROP ' Serial specimen #1, #2 or #3: 1 Performed By: #### L 300.3900, L300.4310, L503.6005, L500.4050, M200.1000, L100.0100 #### [facility] [address] [place], [address] EST GFR - AA 69 mL/min Normal >60 [facility] Comment on above: Order Comment: 'TROP ' Serial specimen #1, #2 or #3: 1 Result Comment: Afri can Gambian GFR Calc Performed By: #### L 300.3900, L300.4310, L503.6005, L500.4050, M200.1000, L100.0100 #### [facility] [address] [place], [address] GAP 6 Normal 5-15 [facility] Comment on above: Order Comment: 'TROP ' Serial specimen #1, #2 or #3: 1 Performed By: #### L 300.3900, L300.4310, L503.6005, L500.4050, M200.1000, L100.0100 #### [facility] [address] [place], [address] GFR/1.73 sq M.predicted among non-blacks MDRD (S/P/Bld) [Vol rate/Area] 57 mL/min/{1.73_m2} Low >60 [facility] Comment on above: Order Comment: 'TROP ' Serial specimen #1, #2 or #3: 1 Result Comment: Non- GFR Calc Performed By: #### L 300.3900, L300.4310, L503.6005, L500.4050, M200.1000, L100.0100 #### [facility] [address] [place], [address] Globulin (S) [Mass/Vol] 3.7 g/dL Normal 2.2-4.2 [facility] Comment on above: Order Comment: 'TROP ' Serial specimen #1, #2 or #3: 1 Performed By: #### L 300.3900, L300.4310, L503.6005, L500.4050, M200.1000, L100.0100 #### [facility] [address] [place], [address] Glucose [Mass/Vol] 112 mg/dL High 74-[address] [facility] Comment on above: Order Comment: 'TROP ' Serial specimen #1, #2 or #3: 1 Result Comment: Fast ing Glucose result from 100 to 125 mg/dL suggests IMPAIRED HOMEOSTASIS per A.D.A. criteria. Performed By: #### L 300.3900, L300.4310, L503.6005, L500.4050, M200.1000, L100.0100 #### [facility] [address] [place], [address] Potassium [Moles/Vol] 4.0 mmol/L Normal 3.5-5.1 [facility] Comment on above: Order Comment: 'TROP ' Serial specimen #1, #2 or #3: 1 Performed By: #### L 300.3900, L300.4310, L503.6005, L500.4050, M200.1000, L100.0100 #### [facility] [address] [place], [address] Sodium [Moles/Vol] 139 mmol/L Normal 136-[address] [facility] Comment on above: Order Comment: 'TROP ' Serial specimen #1, #2 or #3: 1 Performed By: #### L 300.3900, L300.4310, L503.6005, L500.4050, M200.1000, L100.0100 #### [facility] [address] [place], [address] T PROT 6.9 g/dL Normal 6.4-8.2 [facility] Comment on above: Order Comment: 'TROP ' Serial specimen #1, #2 or #3: 1 Performed By: #### L 300.3900, L300.4310, L503.6005, L500.4050, M200.1000, L100.0100 #### [facility] [address] [place], [address] Urea nitrogen [Mass/Vol] 9 mg/dL Normal 7-18 [facility] Comment on above: Order Comment: 'TROP ' Serial specimen #1, #2 or #3: 1 Performed By: #### L 300.3900, L300.4310, L503.6005, L500.4050, M200.1000, L100.0100 #### [facility] [address] [place], [place], [address] Emergency Department Summary on 04-01-2024 Emergency Department Summary [facility] Medical Records Department [address] [place] [address] Emergency Department Summary 04/01/24 MR#: [id number] Acct: [id number] Name: MORENA PATTON Rep #: [id number] : 1960 64 From: Randall Cheng DO PCP: Dr. Stoney Hudson MD Status:DEP ER Location: ED [facility] History of Present Illness Chief Complaint: Neuro S/Sx Onset/Context/Timing Onset: Days (4) Context: Sudden Onset Timing: Intermittent Quality and Location: Positive for Left Facial Droop, Slurred Speech and Expressive Aphasia Onset: 3 days ago Worsened by: Nothing Relieved by: Nothing Associated Symptoms Associated Symptoms: Positive for Headache and Chest Pain; Negative for Nausea or Vomiting Narrative Narrative: Patient presents with a headache that began 3 days ago. Patient states the headache has been intermittent. Patient states it is mainly over the right side of her head. The patient describes it as sharp. Patient states she has been having difficulty with her speech and sensation. Patient states she has also been drooling of the left side of her mouth. Patient denies any nausea or vomiting. Patient states she did have an episode of chest pain today. 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 B12 deficiency Anemia Hypertension GI bleed PUD (peptic ulcer disease) Home Medications ???Medication ???Instructions ???Recorded ???Last Taken ???Type temazepam 30 mg capsule 30 mg PO QHS 03/16/16 03/15/16 History rollator walker with seat #1 ea 10/09/20 Unknown Rx cyclobenzaprine 10 mg tablet 20 mg PO TID 10/24/20 Unknown History cyanocobalamin (vitamin B-12) 1,000 mcg IM Q30D #1 mL 12/20/20 Unknown Rx 1,000 mcg/mL injection solution diclofenac sodium 1 % topical gel 4 g topical .QID #100 grams 03/03/21 Unknown Rx omeprazole 40 mg capsule,delayed 40 mg PO DAILY #90 caps 03/03/21 Unknown Rx release syringe with needle 1 mL 25 gauge #100 ea 03/05/21 Unknown History x 1 albuterol sulfate 90 mcg/actuation 2 puff inhalation Q4H PRN PRN SOB, 04/16/21 Unknown Rx aerosol inhaler wheezing #8.5 grams valacyclovir 500 mg tablet 500 mg PO DAILY Herpes Flare #90 10/28/21 Unknown Rx (Valtrex) tabs ergocalciferol (vitamin D2) 1,250 50,000 unit PO Q2W 11/26/21 Unknown History mcg (50,000 unit) capsule ferrous gluconate 324 mg (37.5 mg 324 mg PO BIDCM 30 days #60 tabs 02/16/23 Unknown Rx iron) tablet lidocaine 5 % topical patch 1 patch topical DAILY 14 days #14 02/16/23 Unknown Rx ea triamterene 37.5 1 cap PO DAILY 30 days #90 caps 02/16/23 Unknown Rx mg-hydrochlorothiazide 25 mg capsule mecobalamin (vitamin B12) 5,000 5,000 mcg PO QWEEK #10 tabs 11/18/23 Unknown Rx mcg disintegrating tablet Allergy/AdvReac Type Severity Reaction Status Date / [facility] All[facility] Rash Verified 02/16/24 09:09 NSAIDS (Non-Steroidal AdvReac Nausea Verified 02/16/24 09:09 Anti-Inflamma Family History Father Myocardial infarction Alcohol abuse Heart disease CAD (coronary artery disease) Mother CVA (cerebral vascular accident) Hypertension Thrombosis Alcohol abuse Sister Lupus Surgical History Hx of bariatric surgery S/P H/O gastric bypass ( 1999) Social History household members: other details: grandson housing: house current occupational status: retired and disabled history of recent travel: No Smoking Status: Former smoker Smokeless tobacco user: other alcohol intake: current alcohol intake frequency: 3 or more drinks per day details: Patient reports history of at 2-tall boys daily at least. substance use type: does not use what type of physical activity do you participate in: none and walking seatbelt use: always do you feel safe at home: Yes additional social history: single ROS ROS ED Constitutional Constitutional ED: Denies chills or fever(s) Eyes Eyes: Reports blurry vision; Denies diplopia ENT ENT ED: Reports rhinorrhea; Denies sore throat Cardiovascular Cardiovascular: Reports chest pain; Denies palpitations Respiratory/Chest Respiratory/Chest: Reports cough; Denie (more content not included)... Normal [facility] Erythrocyte Sed Rateon 04-01 SED RATE 18 mm/hr Normal 0-30 [facility] Comment on above: Performed By: #### L 300.3900, L300.4310, L503.6005, L500.4050, M200.1000, L100.0100 #### [facility] [address] [place], [address] L501.4020on 04-01-2024 TROPONIN-I HS 29 pg/mL Normal 3.0-54.0 [facility] Comment on above: Order Comment: 'TROP ' Serial specimen #1, #2 or #3: 1 Result Comment: Plea Note: New Test Units and Gender Specific Reference Ranges. For more information see Policy Stat Procedure Hext High Sensitivity Troponin (TNIH) and attachments. Performed By: #### L 300.3900, L300.4310, L503.6005, L500.4050, M200.1000, L100.0100 #### [facility] [address] [place], [address] M100.678on 04-01-2024 M100.678 Copy of report sent to Infection Control Printer [id number] 04/01/24 [id number] ZUHAIR. FLUABV+SARS-CoV-2+RSV Pnl Resp BISI+probe FLUABV+SARS-CoV-2+RSV Pnl Resp BISI+probe SARS-CoV-2 (COVID 19) A Positive A INFLUENZA A Negative INFLUENZA B Negative RSV PCR Negative SARS-CoV-2 (COVID 19 PCR) Normal [facility] Comment on above: Performed By: #### L 300.3900, L300.4310, L503.6005, L500.4050, M200.1000, L100.0100 #### [facility] [address] [place], [address] Partial Thromboplast Timeon 04-01-2024 aPTT Coag (Bld) [Time] 28.3 s Normal 24.1-36.2 [facility] Comment on above: Performed By: #### L 300.3900, L300.4310, L503.6005, L500.4050, M200.1000, L100.0100 #### [facility] [address] [place], [address] Prothrombin Time w/INRon INR Coag (PPP) [Relative time] 1.0 {INR} Normal [facility] Comment on above: Performed By: #### L 300.3900, L300.4310, L503.6005, L500.4050, M200.1000, L100.0100 #### [facility] [address] [place], [address] PT Coag (PPP) [Time] 13.4 s Normal 11.7-14.9 [facility] Comment on above: Performed By: #### L 300.3900, L300.4310, L503.6005, L500.4050, M200.1000, L100.0100 #### [facility] [address] [place], [address] Urinalysis, Completeon 04-01 BACTERIA 0 SEEN Normal None Seen [facility] Comment on above: Order Comment: COLLE CTOR TO SPECIFY Performed By: #### L 300.3900, L300.4310, L503.6005, L500.4050, M200.1000, L100.0100 #### [facility] [address] [place], [address] EPI,SQUAMOUS 0 SEEN Normal 5-10 [facility] Comment on above: Order Comment: COLLE CTOR TO SPECIFY Performed By: #### L 300.3900, L300.4310, L503.6005, L500.4050, M200.1000, L100.0100 #### [facility] [address] [place], [address] Mucus Ql (Urine sed) 0 SEEN Normal [facility] Comment on above: Order Comment: COLLE CTOR TO SPECIFY Performed By: #### L 300.3900, L300.4310, L503.6005, L500.4050, M200.1000, L100.0100 #### [facility] [address] [place], [address] RBC 0 SEEN Normal 0-5 [facility] Comment on above: Order Comment: COLLE CTOR TO SPECIFY Performed By: #### L 300.3900, L300.4310, L503.6005, L500.4050, M200.1000, L100.0100 #### [facility] [address] [place], [address] WBC 0 SEEN Normal 0-5 [facility] Comment on above: Order Comment: COLLE CTOR TO SPECIFY Performed By: #### L 300.3900, L300.4310, L503.6005, L500.4050, M200.1000, L100.0100 #### [facility] [address] [place], [place], [id number] Upper GI/w Small Bowelon Upper GI/w Small Bowel [facility] Imaging Services [address] [place], [place] [address] Upper GI/w Small Bowel MR#: [id number] Acct: [id number] Name: MORENA PATTON Rep #: [id number] : 1960 F 64 From: Javad juarez MD PCP: Dr. Stoney Hudson MD Status: REG CLI Study: Upper GI/w Small Bowel Date of Exam: 02/21/24 Exam# [id number] Ordering Dr: Brennon Yung MD [id number] PROCEDURE: Air contrast Upper GI with Small Bowel Follow Through DATE OF EXAMINATION: February 21, 2024.. INDICATION: Female, 64 years old. Two-year history of abdominal pain and weight loss. History of prior gastric bypass surgery. Nausea. FLUOROSCOPY TIME (if supplied): (1:44) minutes/seconds. 27.5 mGy. 12 images were submitted. TECHNIQUE: Radiographic and fluoroscopic images of the distal esophagus, stomach, and entire small intestine were obtained following the oral ingestion of barium. COMPARISON: None. FINDINGS: The patient ingested barium. Imaging the esophagus was obtained. There is no evidence of obstruction. No evidence of gastroesophageal reflux. No mass lesion is present. The patient is status post gastric bypass surgery with a Billroth II type anastomosis. A single contrast small bowel follow through exam demonstrates the small bowel to have no evidence for stricture, ulceration or mass. The transit time is normal at 60 minutes. RAD/Upper GI/w Small Bowel IMPRESSION: Status post gastric bypass surgery. No evidence of reflux. Unremarkable small bowel follow-through examination. Electronically Signed: Javad Del Cid MD at 10:07 EDT , CC: Dr. Stoney Hudson MD; Dr. Brennon Yung MD [employer]: Signed Normal [facility] Telephone Encounteron 2023 Manager Rn Case Authentication Interface Message Text Called patient, 3 identifiers obtained. Patient was unable to talk at this time. Instructed patient to call [email or web address] [facility] at [phone]. Asked patient to reference #[phone] when calling back to our office. Ok to relay message below from Anamaria Guerrero RN. Normal [facility] [email or web address] [facility] CBC W/Diff, Automatedon 01-30 Anisocytosis Ql (Bld) RARE Normal [facility] Comment on above: Performed By: #### L 300.3900, L300.4310, L503.6005, L500.4050, M200.1000, L100.0100 #### [facility] [address] [place], [place], [id number] SMEAR COMMENT Normal [facility] Comment on above: Result Comment: ANIS OCYTOSIS Performed By: #### L 300.3900, L300.4310, L503.6005, L500.4050, M200.1000, L100.0100 #### [facility] [address] [place], [address] CRPon 02-16-2024 C-REACTIVE PROT < 2.90 Normal 0.0-3.0 [facility] Comment on above: Order Comment: UNKNO WN1N Result Comment: C-Re active Protein (CRP) provides useful information for the diagnosis, therapy and monitoring of inflammatory processes and associated diseases. For the evaluation of Relative Risk for Cardiovascular Disease, a High Sensitivity CRP (HSCRP) should be ordered. Performed By: #### L 300.3900, L300.4310, L503.6005, L500.4050, M200.1000, L100.0100 #### [facility] [address] [place], [address] Comprehensive Metabolic Prof ilon 02-16-2024 Albumin [Mass/Vol] 3.5 g/dL Normal 3.2-5.[address] [facility] Comment on above: Order Comment: UNKNO WN1N Performed By: #### L 300.3900, L300.4310, L503.6005, L500.4050, M200.1000, L100.0100 #### [facility] [address] [place], [address] Albumin/Globulin [Mass ratio] 1.0 {ratio} Normal 0.9-2.4 [facility] Comment on above: Order Comment: UNKNO WN1N Performed By: #### L 300.3900, L300.4310, L503.6005, L500.4050, M200.1000, L100.0100 #### [facility] [address] [place], [address] ALK P 103 U/L Normal 45-117 [facility] Comment on above: Order Comment: UNKNO WN1N Performed By: #### L 300.3900, L300.4310, L503.6005, L500.4050, M200.1000, L100.0100 #### [facility] [address] [place], [address] ALT [Catalytic activity/Vol] 24 U/L Normal 13-56 [facility] Comment on above: Order Comment: UNKNO WN1N Performed By: #### L 300.3900, L300.4310, L503.6005, L500.4050, M200.1000, L100.0100 #### [facility] [address] [place], [address] AST [Catalytic activity/Vol] 32 U/L Normal 15-37 [facility] Comment on above: Order Comment: UNKNO WN1N Performed By: #### L 300.3900, L300.4310, L503.6005, L500.4050, M200.1000, L100.0100 #### [facility] [address] [place], [address] Bilirubin [Mass/Vol] 0.30 mg/dL Normal 0.20-1.00 [facility] Comment on above: Order Comment: UNKNO WN1N Result Comment: For patients on eltrombopag therapy, use of Dimension Hext TBIL is not recommended. Performed By: #### L 300.3900, L300.4310, L503.6005, L500.4050, M200.1000, L100.0100 #### [facility] [address] [place], [address] BUN/CRE 11.5 RATIO Normal 10-20 [facility] Comment on above: Order Comment: UNKNO WN1N Performed By: #### L 300.3900, L300.4310, L503.6005, L500.4050, M200.1000, L100.0100 #### [facility] [address] [place], [address] CA,Total 9.2 mg/dL Normal 8.5-10.1 [facility] Comment on above: Order Comment: UNKNO WN1N Performed By: #### L 300.3900, L300.4310, L503.6005, L500.4050, M200.1000, L100.0100 #### [facility] [address] [place], [address] Chloride [Moles/Vol] 109 mmol/L High 98-107 [facility] Comment on above: Order Comment: UNKNO WN1N Performed By: #### L 300.3900, L300.4310, L503.6005, L500.4050, M200.1000, L100.0100 #### [facility] [address] [place], [address] CO2 [Moles/Vol] 25.0 mmol/L Normal 21.0-32.0 [facility] Comment on above: Order Comment: UNKNO WN1N Performed By: #### L 300.3900, L300.4310, L503.6005, L500.4050, M200.1000, L100.0100 #### [facility] [address] [place], [address] Creatinine [Mass/Vol] 0.96 mg/dL Normal 0.55-1.02 [facility] Comment on above: Order Comment: UNKNO WN1N Result Comment: The validity of the calculated GFR GFRAA in patients over 70 years has not been determined. Clinical correlation is essential. Performed By: #### L 300.3900, L300.4310, L503.6005, L500.4050, M200.1000, L100.0100 #### [facility] [address] [place], [address] ECRCL 55.42 ml/min Normal [facility] Comment on above: Order Comment: UNKNO WN1N Performed By: #### L 300.3900, L300.4310, L503.6005, L500.4050, M200.1000, L100.0100 #### [facility] [address] [place], [address] EST GFR - AA 75 mL/min Normal >60 [facility] Comment on above: Order Comment: UNKNO WN1N Result Comment: Afri can Gambian GFR Calc Performed By: #### L 300.3900, L300.4310, L503.6005, L500.4050, M200.1000, L100.0100 #### [facility] [address] [place], [address] GAP 4 Low 5-15 [facility] Comment on above: Order Comment: UNKNO WN1N Performed By: #### L 300.3900, L300.4310, L503.6005, L500.4050, M200.1000, L100.0100 #### [facility] [address] [place], [address] GFR/1.73 sq M.predicted among non-blacks MDRD (S/P/Bld) [Vol rate/Area] 62 mL/min/{1.73_m2} Normal >60 [facility] Comment on above: Order Comment: UNKNO WN1N Result Comment: Non- GFR Calc Performed By: #### L 300.3900, L300.4310, L503.6005, L500.4050, M200.1000, L100.0100 #### [facility] [address] [place], [address] Globulin (S) [Mass/Vol] 3.4 g/dL Normal 2.2-4.2 [facility] Comment on above: Order Comment: UNKNO WN1N Performed By: #### L 300.3900, L300.4310, L503.6005, L500.4050, M200.1000, L100.0100 #### [facility] [address] [place], [address] Glucose [Mass/Vol] 106 mg/dL Normal 74-[address] [facility] Comment on above: Order Comment: UNKNO WN1N Result Comment: Fast ing Glucose result from 100 to 125 mg/dL suggests IMPAIRED HOMEOSTASIS per A.D.A. criteria. Performed By: #### L 300.3900, L300.4310, L503.6005, L500.4050, M200.1000, L100.0100 #### [facility] [address] [place], [address] Potassium [Moles/Vol] 3.5 mmol/L Normal 3.5-5.1 [facility] Comment on above: Order Comment: UNKNO WN1N Performed By: #### L 300.3900, L300.4310, L503.6005, L500.4050, M200.1000, L100.0100 #### [facility] [address] [place], [address] Sodium [Moles/Vol] 138 mmol/L Normal 136-[address] [facility] Comment on above: Order Comment: UNKNO WN1N Performed By: #### L 300.3900, L300.4310, L503.6005, L500.4050, M200.1000, L100.0100 #### [facility] [address] [place], [address] T PROT 6.9 g/dL Normal 6.4-8.2 [facility] Comment on above: Order Comment: UNKNO WN1N Performed By: #### L 300.3900, L300.4310, L503.6005, L500.4050, M200.1000, L100.0100 #### [facility] [address] [place], [address] Urea nitrogen [Mass/Vol] 11 mg/dL Normal 7-18 [facility] Comment on above: Order Comment: UNKNO WN1N Performed By: #### L 300.3900, L300.4310, L503.6005, L500.4050, M200.1000, L100.0100 #### [facility] [address] [place], [address] Erythrocyte Sed Rateon 02-15 SED RATE 13 mm/hr Normal 0-30 [facility] Comment on above: Performed By: #### L 300.3900, L300.4310, L503.6005, L500.4050, M200.1000, L100.0100 #### [facility] [address] [place], [address] Ferritinon 02-16-2024 Ferritin [Mass/Vol] 25 ng/mL Normal 8-252 [facility] Comment on above: Order Comment: UNKNO WN1N Performed By: #### L 300.3900, L300.4310, L503.6005, L500.4050, M200.1000, L100.0100 #### [facility] [facility] [address] [place], [place], [id number] (945 Folates, (Folic Acid)on 01-30 FOLATES 8.90 ng/mL Normal 3.1-55.4 [facility] Comment on above: Order Comment: UNKNO WN1N Performed By: #### L 300.3900, L300.4310, L503.6005, L500.4050, M200.1000, L100.0100 #### [facility] [address] [place], [place], [id number] (500 Iron+Iron Binding Capacityon 02-16-2024 Iron [Mass/Vol] 59 ug/dL Normal 50-170 [facility] Comment on above: Order Comment: UNKNO WN1N Performed By: #### L 300.3900, L300.4310, L503.6005, L500.4050, M200.1000, L100.0100 #### [facility] [address] [place], [address] IRON SATURATION 16.4 Normal 15.0-55.0 [facility] Comment on above: Order Comment: UNKNO WN1N Performed By: #### L 300.3900, L300.4310, L503.6005, L500.4050, M200.1000, L100.0100 #### [facility] [address] [place], [address] TIBC 360 ug/dL Normal 250-450 [facility] Comment on above: Order Comment: UNKNO WN1N Performed By: #### L 300.3900, L300.4310, L503.6005, L500.4050, M200.1000, L100.0100 #### [facility] [address] [place], [address] LDHon 02-16-2024 LDH 189 U/L Normal 84-246 [facility] Comment on above: Order Comment: UNKNO WN1N Performed By: #### L 300.3900, L300.4310, L503.6005, L500.4050, M200.1000, L100.0100 #### [facility] [address] [place], [address] Magnesiumon 02-16-2024 Magnesium [Mass/Vol] 2.0 mg/dL Normal 1.6-2.6 [facility] Comment on above: Order Comment: UNKNO WN1N Performed By: #### L 300.3900, L300.4310, L503.6005, L500.4050, M200.1000, L100.0100 #### [facility] [address] [place], [address] Oncology Visit Reporton 01-30 Oncology Visit Report [facility] [address] [place] [address] OFFICE VISIT Date of Service: 02/16/24 0905 MR#: [id number] Acct: [id number] Name: MORENA PATTON Rep #: [id number] : 1960 From: Trell Tilley MD Age/Sex: 64/F Location: [facility] [place] Status: Signed HPI Subjective Date of Service 02/16/24 Chief Complaint F/u for Tiredness. History of Present Illness 64y.o.woman had Gastric by-pass in 1999. She has required iron infusions since then in [place]. She had GI bleed in June 2019, UGI Endoscopy at [facility] in [place] showed anastomotic ulcer. She saw Dr. Yung, found to have iron deficiency and referred for treatment. She received Venofer 200mg IV x 5 in August 2019 with correction of Iron deficiency. Had extreme fatigue/tiredness, has lost weight, found to have low Iron profile, given Iron infusion 900mg from 11/29/2023 to 12/20/2023. Comes for follow up. Feels tired so wants more IV Iron. 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 B12 deficiency Anemia Hypertension GI bleed PUD (peptic ulcer disease) Surgical History Hx of bariatric surgery S/P H/O gastric bypass ( 1999) Family History Father Myocardial infarction Alcohol abuse Heart disease CAD (coronary artery disease) Mother CVA (cerebral vascular accident) Hypertension Thrombosis Alcohol abuse Sister Lupus Social History household members: other details: grandson housing: house current occupational status: retired and disabled history of recent travel: No Smoking Status: Former smoker Smokeless tobacco user: other alcohol intake: current alcohol intake frequency: 3 or more drinks per day details: Patient reports history of at 2-tall boys daily at least. substance use type: does not use what type of physical activity do you participate in: none and walking seatbelt use: always do you feel safe at home: Yes additional social history: single Intake Vital Signs 01/18/24 12:52 02/16/24 09:08 02/16/24 09:10 Height 5 ft 6 in 5 ft 6 in 5 ft 6 in Weight: 66.253 kg BMI 23.6 BP 131/79 H Blood Pressure Location Lt brachial Position Sitting Respiration 18 Pulse 63 Pulse Source Monitor Temp 98.5 F Temperature Source Temporal Artery Pulse Oximetry (%) 99 Oxygen Delivery Method room air Intake Is patient in pain?: No Allergies buprenorphine (From [employer] Allergy (Verified 02/16/24 09:09) Rash NSAIDS (Non-Steroidal Anti-Inflamma Adverse Reaction (Verified 02/16/24 09:09) Nausea Medications ???Medication ???Instructions ???Recorded ???Confirmed ???Type temazepam 30 mg capsule 30 mg PO QHS 03/16/16 02/16/24 History rollator walker with seat #1 ea 10/09/20 02/16/24 Rx cyclobenzaprine 10 mg tablet 20 mg PO TID 10/24/20 02/16/24 History cyanocobalamin (vitamin B-12) 1,000 mcg IM Q30D #1 mL 12/20/20 02/16/24 Rx 1,000 mcg/mL injection solution diclofenac sodium 1 % topical gel 4 g topical .QID #100 grams 03/03/21 02/16/24 Rx omeprazole 40 mg capsule,delayed 40 mg PO DAILY #90 caps 03/03/21 02/16/24 Rx release syringe with needle 1 mL 25 gauge #100 ea 03/05/21 02/16/24 History x 1 albuterol sulfate 90 mcg/actuation 2 puff inhalation Q4H PRN PRN SOB, 04/16/21 02/16/24 Rx aerosol inhaler wheezing #8.5 grams valacyclovir 500 mg tablet 500 mg PO DAILY Herpes Flare #90 10/28/21 02/16/24 Rx (Valtrex) tabs ergocalciferol (vitamin D2) 1,250 50,000 unit PO Q2W 11/26/21 02/16/24 History mcg (50,000 unit) capsule ferrous gluconate 324 mg (37.5 mg 324 mg PO BIDCM 30 days #60 tabs 02/16/23 02/16/24 Rx iron) tablet lidocaine 5 % topical patch 1 patch topical DAILY 14 days #14 02/16/23 02/16/24 Rx ea triamterene 37.5 1 cap PO DAILY 30 days #90 caps 02/16/23 02/16/24 Rx mg-hydrochlorothiazide 25 mg capsule mecobalamin (vitamin B12) 5,000 5,000 mcg PO QWEEK #10 tabs 11/18/23 02/16/24 Rx mcg disintegrating tablet Central Venous Access Central Venous Access: No Laboratory Results 02/16/24 01/12/24 03/20/21 08:20 07:45 10:45 WBC 4.4 3.4 L 5 (more content not included)... Normal [facility] Phosphoruson 02-16-2024 Phosphate [Mass/Vol] 3.2 mg/dL Normal 2.5-4.9 [facility] Comment on above: Order Comment: UNKNO WN1N Performed By: #### L 300.3900, L300.4310, L503.6005, L500.4050, M200.1000, L100.0100 #### [facility] [address] [place], [address] Retic Panelon 02-16-2024 IM RET FRACTION 12.00 Normal 3.00-15.90 [facility] Comment on above: Performed By: #### L 300.3900, L300.4310, L503.6005, L500.4050, M200.1000, L100.0100 #### [facility] [address] [place], [address] RET-HE 33.0 pg Normal 30-35 [facility] Comment on above: Performed By: #### L 300.3900, L300.4310, L503.6005, L500.4050, M200.1000, L100.0100 #### [facility] [address] [place], [address] Retic Count 1.22 Normal 0.5-1.5 [facility] Comment on above: Performed By: #### L 300.3900, L300.4310, L503.6005, L500.4050, M200.1000, L100.0100 #### [facility] [address] [place], [address] Vitamin B12on 02-16-2024 Cobalamin (Vitamin B12) [Mass/Vol] 359 pg/mL Normal 211-911 [facility] Comment on above: Performed By: #### L 300.3900, L300.4310, L503.6005, L500.4050, M200.1000, L100.0100 #### [facility] [address] [place], [address] CBC W/Diff, Automatedon 07- ACANTHOCYTE 1+ Normal [facility] Comment on above: Performed By: #### L 300.3900, L300.4310, L503.6005, L500.4050, M200.1000, L100.0100 #### [facility] [address] [place], [address] Anisocytosis Ql (Bld) 2+ Normal [facility] Comment on above: Performed By: #### L 300.3900, L300.4310, L503.6005, L500.4050, M200.1000, L100.0100 #### [facility] [address] [place], [address] OVALOCYTE 1+ Normal [facility] Comment on above: Performed By: #### L 300.3900, L300.4310, L503.6005, L500.4050, M200.1000, L100.0100 #### [facility] [address] [place], [address] SMEAR COMMENT SCANNED Normal [facility] Comment on above: Performed By: #### L 300.3900, L300.4310, L503.6005, L500.4050, M200.1000, L100.0100 #### [facility] [address] [place], [address] STOMATOCYTE 1+ Normal [facility] Comment on above: Performed By: #### L 300.3900, L300.4310, L503.6005, L500.4050, M200.1000, L100.0100 #### [facility] [address] [place], [address] TARGET CELLS 1+ Normal [facility] Comment on above: Performed By: #### L 300.3900, L300.4310, L503.6005, L500.4050, M200.1000, L100.0100 #### [facility] [address] [place], [address] TEAR DROP 1+ Normal [facility] Comment on above: Performed By: #### L 300.3900, L300.4310, L503.6005, L500.4050, M200.1000, L100.0100 #### [facility] [address] [place], [address] Comprehensive Metabolic Prof ohon 02-14-2024 Albumin [Mass/Vol] 3.5 g/dL Normal 3.2-5.[address] [facility] Comment on above: Performed By: #### L 300.3900, L300.4310, L503.6005, L500.4050, M200.1000, L100.0100 #### [facility] [address] [place], [address] Albumin/Globulin [Mass ratio] 0.9 {ratio} Normal 0.9-2.4 [facility] Comment on above: Performed By: #### L 300.3900, L300.4310, L503.6005, L500.4050, M200.1000, L100.0100 #### [facility] [address] [place], [address] ALK P 103 U/L Normal 45-117 [facility] Comment on above: Performed By: #### L 300.3900, L300.4310, L503.6005, L500.4050, M200.1000, L100.0100 #### [facility] [address] [place], [address] ALT [Catalytic activity/Vol] 24 U/L Normal 13-56 [facility] Comment on above: Performed By: #### L 300.3900, L300.4310, L503.6005, L500.4050, M200.1000, L100.0100 #### [facility] [address] [place], [address] AST [Catalytic activity/Vol] 35 U/L Normal 15-37 [facility] Comment on above: Performed By: #### L 300.3900, L300.4310, L503.6005, L500.4050, M200.1000, L100.0100 #### [facility] [address] [place], [address] Bilirubin [Mass/Vol] 0.30 mg/dL Normal 0.20-1.00 [facility] Comment on above: Result Comment: For patients on eltrombopag therapy, use of Dimension Hext TBIL is not recommended. Performed By: #### L 300.3900, L300.4310, L503.6005, L500.4050, M200.1000, L100.0100 #### [facility] [address] [place], [address] BUN/CRE 12.5 RATIO Normal 10-20 [facility] Comment on above: Performed By: #### L 300.3900, L300.4310, L503.6005, L500.4050, M200.1000, L100.0100 #### [facility] [address] [place], [address] CA,Total 9.2 mg/dL Normal 8.5-10.1 [facility] Comment on above: Performed By: #### L 300.3900, L300.4310, L503.6005, L500.4050, M200.1000, L100.0100 #### [facility] [address] [place], [address] Chloride [Moles/Vol] 106 mmol/L Normal 98-107 [facility] Comment on above: Performed By: #### L 300.3900, L300.4310, L503.6005, L500.4050, M200.1000, L100.0100 #### [facility] [address] [place], [address] CO2 [Moles/Vol] 22.0 mmol/L Normal 21.0-32.0 [facility] Comment on above: Performed By: #### L 300.3900, L300.4310, L503.6005, L500.4050, M200.1000, L100.0100 #### [facility] [address] [place], [address] Creatinine [Mass/Vol] 0.96 mg/dL Normal 0.55-1.02 [facility] Comment on above: Result Comment: The validity of the calculated GFR GFRAA in patients over 70 years has not been determined. Clinical correlation is essential. Performed By: #### L 300.3900, L300.4310, L503.6005, L500.4050, M200.1000, L100.0100 #### [facility] [address] [place], [address] EST GFR - AA 75 mL/min Normal >60 [facility] Comment on above: Result Comment: Afri can Gambian GFR Calc Performed By: #### L 300.3900, L300.4310, L503.6005, L500.4050, M200.1000, L100.0100 #### [facility] [address] [place], [address] GAP 9 Normal 5-15 [facility] Comment on above: Performed By: #### L 300.3900, L300.4310, L503.6005, L500.4050, M200.1000, L100.0100 #### [facility] [address] [place], [address] GFR/1.73 sq M.predicted among non-blacks MDRD (S/P/Bld) [Vol rate/Area] 62 mL/min/{1.73_m2} Normal >60 [facility] Comment on above: Result Comment: Non- GFR Calc Performed By: #### L 300.3900, L300.4310, L503.6005, L500.4050, M200.1000, L100.0100 #### [facility] [address] [place], [address] Globulin (S) [Mass/Vol] 3.7 g/dL Normal 2.2-4.2 [facility] Comment on above: Performed By: #### L 300.3900, L300.4310, L503.6005, L500.4050, M200.1000, L100.0100 #### [facility] [address] [place], [address] Glucose [Mass/Vol] 90 mg/dL Normal 74-[address] [facility] Comment on above: Performed By: #### L 300.3900, L300.4310, L503.6005, L500.4050, M200.1000, L100.0100 #### [facility] [address] [place], [address] Potassium [Moles/Vol] 4.1 mmol/L Normal 3.5-5.1 [facility] Comment on above: Performed By: #### L 300.3900, L300.4310, L503.6005, L500.4050, M200.1000, L100.0100 #### [facility] [address] [place], [address] Sodium [Moles/Vol] 137 mmol/L Normal 136-[address] [facility] Comment on above: Performed By: #### L 300.3900, L300.4310, L503.6005, L500.4050, M200.1000, L100.0100 #### [facility] [address] [place], [address] T PROT 7.2 g/dL Normal 6.4-8.2 [facility] Comment on above: Performed By: #### L 300.3900, L300.4310, L503.6005, L500.4050, M200.1000, L100.0100 #### [facility] [address] [place], [address] Urea nitrogen [Mass/Vol] 12 mg/dL Normal 7-18 [facility] Comment on above: Performed By: #### L 300.3900, L300.4310, L503.6005, L500.4050, M200.1000, L100.0100 #### [facility] [address] [place], [address] Hepatitis C Antibodyon 02-13 Hepatitis C AB Non-Reactive Normal Nonreactive [facility] Comment on above: Result Comment: Non Reactive: < 0.8 Equivocal: >/= 0.8 to < 1.0 Reactive: >/= 1.0 The CDC requires that a reactive/equivocal HCV antibody result be sent out for confirmation. HCV Quant by PCR testing. Performed By: #### L 300.3900, L300.4310, L503.6005, L500.4050, M200.1000, L100.0100 #### [facility] [address] [place], [address] Lipid Profileon 02-14-2024 Cholesterol [Mass/Vol] 254 mg/dL High 200 [facility] Comment on above: Result Comment: <200 mg/dL Desirable 200-240 mg/dL Borderline >240 mg/dL High Risk Performed By: #### L 300.3900, L300.4310, L503.6005, L500.4050, M200.1000, L100.0100 #### [facility] [address] [place], [address] Cholesterol in HDL [Mass/Vol] 170 mg/dL Normal [facility] Comment on above: Result Comment: The drugs N-Acetylcysteine and Metamizole may falsely depress this assay. Reference Range HDL <40 mg/dL Low HDL Cholesterol HDL >or= 60 mg/dL High HDL Cholesterol Performed By: #### L 300.3900, L300.4310, L503.6005, L500.4050, M200.1000, L100.0100 #### [facility] [address] [place], [address] Cholesterol in LDL [Mass/Vol] 66 mg/dL Normal 0-130 [facility] Comment on above: Performed By: #### L 300.3900, L300.4310, L503.6005, L500.4050, M200.1000, L100.0100 #### [facility] [address] [place], [address] Cholesterol in VLDL [Mass/Vol] 18 mg/dL Normal 5-40 [facility] Comment on above: Performed By: #### L 300.3900, L300.4310, L503.6005, L500.4050, M200.1000, L100.0100 #### [facility] [address] [place], [address] Triglyceride [Mass/Vol] 88 mg/dL Normal [facility] Comment on above: Result Comment: The drugs N-Acetylcysteine and Metamizole may falsely depress this assay. Serum Triglycerides Reference Interval Normal <150 mg/dL Borderline high 150 - 199 mg/dL High 200 - 499 mg/dL Very High > or = 500 mg/dL Performed By: #### L 300.3900, L300.4310, L503.6005, L500.4050, M200.1000, L100.0100 #### [facility] [address] [place], [address] Thyroid Stim Hormone (TSH)on 02-14-2024 TSH 0.80 uIU/mL Normal 0.358-3.74 [facility] Comment on above: Performed By: #### L 300.3900, L300.4310, L503.6005, L500.4050, M200.1000, L100.0100 #### [facility] [address] [place], [address] Vitamin D,25 Hydroxyon 02-13 Vitamin D 25-OH 120.3 ng/mL Normal [facility] Comment on above: Result Comment: Aziza min D 25(OH) Status Range Deficiency <20 ng/mL (50nmol/L) Insufficiency 20 - 30 ng/mL (50 - 75 nmol/L) Sufficiency 30 - 100 ng/mL (75 - 250 nmol/L) Toxicity >100 ng/mL (>250 nmol/L) Evidence suggests that patients undergoing fluorescein dye angiography can retain small amounts of fluorescein in the body for up to 48 to 72 hours post-treatment. In the cases of patients with renal insufficiency, retention could be much longer. Samples containing fluorescein can produce falsely elevated values when tested with the [employer] Centaur Vitamin D assay. With fluorescein interference, observed Vitamin D values can be as high as >150 ng/mL (>375 nmol/L). Samples should be resubmitted post fluorescein clearance to ensure there is no interference with Vitamin D test results. Performed By: #### L 300.3900, L300.4310, L503.6005, L500.4050, M200.1000, L100.0100 #### [facility] [address] [place], [address] Telephone Encounteron 2023 Manager Rn Case Authentication Interface Message Text Unable to leave a message, voicemail is full. If patient calls back please ask the need for syringes, please encourage patient to keep 02/24/24 appt. Thank you. Normal [facility] Oncology Visit Reporton 12-31 Oncology Visit Report [facility] [address] [place] [address] OFFICE VISIT Date of Service: 01/18/24 1247 MR#: [id number] Acct: [id number] Name: MORENA PATTON #: [id number] : 1960 From: Trell Tilley MD Age/Sex: 63/F Location[place] [facility] [place] Status: Signed HPI Subjective Date of Service 01/18/24 Chief Complaint F/u for Tiredness. History of Present Illness 63y.o.woman had Gastric by-pass in 1999. She has required iron infusions since then in [place]. She had GI bleed in June 2019, UGI Endoscopy at [facility] in [place] showed anastomotic ulcer. She saw Dr. Yung, found to have iron deficiency and referred for treatment. She received Venofer 200mg IV x 5 in August 2019 with correction of Iron deficiency. Had extreme fatigue/tiredness, has lost weight, found to have low Iron profile, given Iron infusion 900mg from 11/29/2023 to 12/20/2023. Comes for follow up. Feels better. 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 B12 deficiency Anemia Hypertension GI bleed PUD (peptic ulcer disease) Surgical History Hx of bariatric surgery S/P H/O gastric bypass ( 1999) Family History Father Myocardial infarction Alcohol abuse Heart disease CAD (coronary artery disease) Mother CVA (cerebral vascular accident) Hypertension Thrombosis Alcohol abuse Sister Lupus Social History household members: other details: grandson housing: house current occupational status: retired and disabled history of recent travel: No Smoking Status: Former smoker Smokeless tobacco user: other alcohol intake: current alcohol intake frequency: 3 or more drinks per day details: Patient reports history of at 2-tall boys daily at least. substance use type: does not use what type of physical activity do you participate in: none and walking seatbelt use: always do you feel safe at home: Yes additional social history: single Intake Vital Signs 11/18/23 13:02 12/20/23 13:31 01/18/24 12:49 01/18/24 12:52 Height 5 ft 6 in 5 ft 6 in 5 ft 6 in 5 ft 6 in Weight: 67.699 kg BMI 24.0 BP 134/85 H Blood Pressure Location Lt brachial Position Sitting Respiration 18 Pulse 90 Pulse Source Monitor Temp 98 F Temperature Source Temporal Artery Pulse Oximetry (%) 98 Oxygen Delivery Method room air Intake Is patient in pain?: Yes (left upper quadrant, left shoulder) Pain scale (1-10): 7 Allergies buprenorphine (From [employer]) Allergy (Verified 01/18/24 12:52) Rash NSAIDS (Non-Steroidal Anti-Inflamma Adverse Reaction (Verified 01/18/24 12:52) Nausea Medications ???Medication ???Instructions ???Recorded ???Confirmed ???Type temazepam 30 mg capsule 30 mg PO QHS 03/16/16 01/18/24 History rollator walker with seat #1 ea 10/09/20 01/18/24 Rx cyclobenzaprine 10 mg tablet 20 mg PO TID 10/24/20 01/18/24 History cyanocobalamin (vitamin B-12) 1,000 mcg IM Q30D #1 mL 12/20/20 01/18/24 Rx 1,000 mcg/mL injection solution diclofenac sodium 1 % topical gel 4 g topical .QID #100 grams 03/03/21 01/18/24 Rx omeprazole 40 mg capsule,delayed 40 mg PO DAILY #90 caps 03/03/21 01/18/24 Rx release syringe with needle 1 mL 25 gauge #100 ea 03/05/21 01/18/24 History x 1 albuterol sulfate 90 mcg/actuation 2 puff inhalation Q4H PRN PRN SOB, 04/16/21 01/18/24 Rx aerosol inhaler wheezing #8.5 grams valacyclovir 500 mg tablet 500 mg PO DAILY Herpes Flare #90 10/28/21 01/18/24 Rx (Valtrex) tabs ergocalciferol (vitamin D2) 1,250 50,000 unit PO Q2W 11/26/21 01/18/24 History mcg (50,000 unit) capsule ferrous gluconate 324 mg (37.5 mg 324 mg PO BIDCM 30 days #60 tabs 02/16/23 01/18/24 Rx iron) tablet lidocaine 5 % topical patch 1 patch topical DAILY 14 days #14 02/16/23 01/18/24 Rx ea triamterene 37.5 1 cap PO DAILY 30 days #90 caps 02/16/23 01/18/24 Rx mg-hydrochlorothiazide 25 mg capsule mecobalamin (vitamin B12) 5,000 5,000 mcg PO QWEEK #10 tabs 11/18/23 01/18/24 Rx mcg disintegrating tablet [facility] Central Venous Access: No Laboratory Results 01/11 (more content not included)... Normal [facility] [place] Lambda Light Chainson 01-13-2024 FR KAPPA LT CHN 21.7 mg/L Abnormal 3.3-19.4 [facility] Comment on above: Order Comment: PT CA ME IN EARLY WONT SEE DR UNTIL NEXT WEEK CHANGED TOROUTINE Performed By: #### L 300.3900, L300.4310, L503.6005, L500.4050, M200.1000, L100.0100 #### [facility] [address] [place], [address] FR LAMBDA LT CH 22.7 mg/L Normal 5.7-26.3 [facility] Comment on above: Order Comment: PT CA ME IN EARLY WONT SEE DR UNTIL NEXT WEEK CHANGED TOROUTINE Performed By: #### L 300.3900, L300.4310, L503.6005, L500.4050, M200.1000, L100.0100 #### [facility] [address] [place], [address] KAPPA/LAMBDA % 0.96 Normal 0.26-1.65 [facility] Comment on above: Order Comment: PT CA ME IN EARLY WONT SEE DR UNTIL NEXT WEEK CHANGED TOROUTINE Result Comment: Perf ormed at: CB - [facility] [address] [id number] Resident Advisor: Brennon Vasquez PhD, Phone: [phone] Performed By: #### L 300.3900, L300.4310, L503.6005, L500.4050, M200.1000, L100.0100 #### [facility] [address] [place], [place], [address] CBC W/Diff, Automatedon 12-31 Anisocytosis Ql (Bld) 2+ Normal [facility] Comment on above: Order Comment: PT CA ME IN EARLY WONT SEE DR UNTIL NEXT WEEK CHANGED TO ROUTINE Performed By: #### L 500.4050, L503.6550, L506.0250, L501.2300, L3130.0010, L501.5200, L503.0105, L504.2610, L100.0100 #### [facility] [address] [place], [place], [id number] SMEAR COMMENT SCANNED Normal [facility] Comment on above: Order Comment: PT CA ME IN EARLY WONT SEE DR UNTIL NEXT WEEK CHANGED TO ROUTINE Performed By: #### L 500.4050, L503.6550, L506.0250, L501.2300, L3130.0010, L501.5200, L503.0105, L504.2610, L100.0100 #### [facility] [address] [place], [place], [id number] Comprehensive Metabolic Prof ilon 01-12-2024 Albumin [Mass/Vol] 3.3 g/dL Normal 3.2-5.[address] [facility] Comment on above: Order Comment: PT CA ME IN EARLY WONT SEE DR UNTIL NEXT WEEK CHANGED TO ROUTINE UNKNOWN 1 N Performed By: #### L 500.4050, L503.6550, L506.0250, L501.2300, L3130.0010, L501.5200, L503.0105, L504.2610, L100.0100 #### [facility] [address] [place], [place], [id number] Albumin/Globulin [Mass ratio] 1.1 {ratio} Normal 0.9-2.4 [facility] Comment on above: Order Comment: PT CA ME IN EARLY WONT SEE DR UNTIL NEXT WEEK CHANGED TO ROUTINE UNKNOWN 1 N Performed By: #### L 500.4050, L503.6550, L506.0250, L501.2300, L3130.0010, L501.5200, L503.0105, L504.2610, L100.0100 #### [facility] [address] [place], [address] ALK P 97 U/L Normal 45-117 [facility] Comment on above: Order Comment: PT CA ME IN EARLY WONT SEE DR UNTIL NEXT WEEK CHANGED TO ROUTINE UNKNOWN 1 N Performed By: #### L 500.4050, L503.6550, L506.0250, L501.2300, L3130.0010, L501.5200, L503.0105, L504.2610, L100.0100 #### [facility] [address] [place], [address] ALT [Catalytic activity/Vol] 29 U/L Normal 13-56 [facility] Comment on above: Order Comment: PT CA ME IN EARLY WONT SEE DR UNTIL NEXT WEEK CHANGED TO ROUTINE UNKNOWN 1 N Performed By: #### L 500.4050, L503.6550, L506.0250, L501.2300, L3130.0010, L501.5200, L503.0105, L504.2610, L100.0100 #### [facility] [address] [place], [address] AST [Catalytic activity/Vol] 35 U/L Normal 15-37 [facility] Comment on above: Order Comment: PT CA ME IN EARLY WONT SEE DR UNTIL NEXT WEEK CHANGED TO ROUTINE UNKNOWN 1 N Performed By: #### L 500.4050, L503.6550, L506.0250, L501.2300, L3130.0010, L501.5200, L503.0105, L504.2610, L100.0100 #### [facility] [address] [place], [address] Bilirubin [Mass/Vol] 0.50 mg/dL Normal 0.20-1.00 [facility] Comment on above: Order Comment: PT CA ME IN EARLY WONT SEE DR UNTIL NEXT WEEK CHANGED TO ROUTINE UNKNOWN 1 N Result Comment: For patients on eltrombopag therapy, use of Dimension Hext TBIL is not recommended. Performed By: #### L 500.4050, L503.6550, L506.0250, L501.2300, L3130.0010, L501.5200, L503.0105, L504.2610, L100.0100 #### [facility] [address] [place], [address] BUN/CRE 9.2 RATIO Low 10-20 [facility] Comment on above: Order Comment: PT CA ME IN EARLY WONT SEE DR UNTIL NEXT WEEK CHANGED TO ROUTINE UNKNOWN 1 N Performed By: #### L 500.4050, L503.6550, L506.0250, L501.2300, L3130.0010, L501.5200, L503.0105, L504.2610, L100.0100 #### [facility] [address] [place], [address] CA,Total 9.4 mg/dL Normal 8.5-10.1 [facility] Comment on above: Order Comment: PT CA ME IN EARLY WONT SEE DR UNTIL NEXT WEEK CHANGED TO ROUTINE UNKNOWN 1 N Performed By: #### L 500.4050, L503.6550, L506.0250, L501.2300, L3130.0010, L501.5200, L503.0105, L504.2610, L100.0100 #### [facility] [address] [place], [address] Chloride [Moles/Vol] 114 mmol/L High 98-107 [facility] Comment on above: Order Comment: PT CA ME IN EARLY WONT SEE DR UNTIL NEXT WEEK CHANGED TO ROUTINE UNKNOWN 1 N Performed By: #### L 500.4050, L503.6550, L506.0250, L501.2300, L3130.0010, L501.5200, L503.0105, L504.2610, L100.0100 #### [facility] [address] [place], [place], [phone] (278) CO2 [Moles/Vol] 22.0 mmol/L Normal 21.0-32.0 [facility] Comment on above: Order Comment: PT CA ME IN EARLY WONT SEE DR UNTIL NEXT WEEK CHANGED TO ROUTINE UNKNOWN 1 N Performed By: #### L 500.4050, L503.6550, L506.0250, L501.2300, L3130.0010, L501.5200, L503.0105, L504.2610, L100.0100 #### [facility] [address] [place], [place], [phone] (899) Creatinine [Mass/Vol] 0.87 mg/dL Normal 0.55-1.02 [facility] Comment on above: Order Comment: PT CA ME IN EARLY WONT SEE DR UNTIL NEXT WEEK CHANGED TO ROUTINE UNKNOWN 1 N Result Comment: The validity of the calculated GFR GFRAA in patients over 70 years has not been determined. Clinical correlation is essential. Performed By: #### L 500.4050, L503.6550, L506.0250, L501.2300, L3130.0010, L501.5200, L503.0105, L504.2610, L100.0100 #### [facility] [address] [place], [place], [phone] (456) ECRCL 61.96 ml/min Normal [facility] Comment on above: Order Comment: PT CA ME IN EARLY WONT SEE DR UNTIL NEXT WEEK CHANGED TO ROUTINE UNKNOWN 1 N Performed By: #### L 500.4050, L503.6550, L506.0250, L501.2300, L3130.0010, L501.5200, L503.0105, L504.2610, L100.0100 #### [facility] [address] [place], [address] EST GFR - AA 84 mL/min Normal >60 [facility] Comment on above: Order Comment: PT CA ME IN EARLY WONT SEE DR UNTIL NEXT WEEK CHANGED TO ROUTINE UNKNOWN 1 N Result Comment: Afri can Gambian GFR Calc Performed By: #### L 500.4050, L503.6550, L506.0250, L501.2300, L3130.0010, L501.5200, L503.0105, L504.2610, L100.0100 #### [facility] [address] [place], [address] GAP 3 Low 5-15 [facility] Comment on above: Order Comment: PT CA ME IN EARLY WONT SEE DR UNTIL NEXT WEEK CHANGED TO ROUTINE UNKNOWN 1 N Performed By: #### L 500.4050, L503.6550, L506.0250, L501.2300, L3130.0010, L501.5200, L503.0105, L504.2610, L100.0100 #### [facility] [address] [place], [place], [phone] (175) GFR/1.73 sq M.predicted among non-blacks MDRD (S/P/Bld) [Vol rate/Area] 70 mL/min/{1.73_m2} Normal >60 [facility] Comment on above: Order Comment: PT CA ME IN EARLY WONT SEE DR UNTIL NEXT WEEK CHANGED TO ROUTINE UNKNOWN 1 N Result Comment: Non- GFR Calc Performed By: #### L 500.4050, L503.6550, L506.0250, L501.2300, L3130.0010, L501.5200, L503.0105, L504.2610, L100.0100 #### [facility] [address] [place], [place], [phone] (852) Globulin (S) [Mass/Vol] 3.0 g/dL Normal 2.2-4.2 [facility] Comment on above: Order Comment: PT CA ME IN EARLY WONT SEE DR UNTIL NEXT WEEK CHANGED TO ROUTINE UNKNOWN 1 N Performed By: #### L 500.4050, L503.6550, L506.0250, L501.2300, L3130.0010, L501.5200, L503.0105, L504.2610, L100.0100 #### [facility] [address] [place], [address] Glucose [Mass/Vol] 90 mg/dL Normal 74-[address] [facility] Comment on above: Order Comment: PT CA ME IN EARLY WONT SEE DR UNTIL NEXT WEEK CHANGED TO ROUTINE UNKNOWN 1 N Performed By: #### L 500.4050, L503.6550, L506.0250, L501.2300, L3130.0010, L501.5200, L503.0105, L504.2610, L100.0100 #### [facility] [address] [place], [address] Potassium [Moles/Vol] 3.7 mmol/L Normal 3.5-5.1 [facility] Comment on above: Order Comment: PT CA ME IN EARLY WONT SEE DR UNTIL NEXT WEEK CHANGED TO ROUTINE UNKNOWN 1 N Performed By: #### L 500.4050, L503.6550, L506.0250, L501.2300, L3130.0010, L501.5200, L503.0105, L504.2610, L100.0100 #### [facility] [address] [place], [address] Sodium [Moles/Vol] 139 mmol/L Normal 136-[address] [facility] Comment on above: Order Comment: PT CA ME IN EARLY WONT SEE DR UNTIL NEXT WEEK CHANGED TO ROUTINE UNKNOWN 1 N Performed By: #### L 500.4050, L503.6550, L506.0250, L501.2300, L3130.0010, L501.5200, L503.0105, L504.2610, L100.0100 #### [facility] [address] [place], [address] T PROT 6.3 g/dL Low 6.4-8.2 [facility] Comment on above: Order Comment: PT CA ME IN EARLY WONT SEE DR UNTIL NEXT WEEK CHANGED TO ROUTINE UNKNOWN 1 N Performed By: #### L 500.4050, L503.6550, L506.0250, L501.2300, L3130.0010, L501.5200, L503.0105, L504.2610, L100.0100 #### [facility] [address] [place], [address] Urea nitrogen [Mass/Vol] 8 mg/dL Normal 7-18 [facility] Comment on above: Order Comment: PT CA ME IN EARLY WONT SEE DR UNTIL NEXT WEEK CHANGED TO ROUTINE UNKNOWN 1 N Performed By: #### L 500.4050, L503.6550, L506.0250, L501.2300, L3130.0010, L501.5200, L503.0105, L504.2610, L100.0100 #### [facility] [address] [place], [address] Ferritinon 01-12-2024 Ferritin [Mass/Vol] 83 ng/mL Normal 8-252 [facility] Comment on above: Order Comment: PT CA ME IN EARLY WONT SEE DR UNTIL NEXT WEEK CHANGED [id number] Performed By: #### L 300.3900, L300.4310, L503.6005, L500.4050, M200.1000, L100.0100 #### [facility] [address], [address] Folates, (Folic Acid)on 12-31 FOLATES 19.30 ng/mL Normal 3.1-55.4 [facility] Comment on above: Order Comment: PT CA ME IN EARLY WONT SEE DR UNTIL NEXT WEEK CHANGED [id number] Performed By: #### L 300.3900, L300.4310, L503.6005, L500.4050, M200.1000, L100.0100 #### [facility] [address] [place], [address] Iron+Iron Binding Capacityon 01-12-2024 Iron [Mass/Vol] 62 ug/dL Normal 50-170 [facility] Comment on above: Order Comment: PLEAS E ADD TO BLOOD IN LAB. THANK YOU!! Performed By: #### L 503.6030 #### [facility] [address] [place], [address] IRON SATURATION 20.7 Normal 15.0-55.0 [facility] Comment on above: Order Comment: PLEAS E ADD TO BLOOD IN LAB. THANK YOU!! Performed By: #### L 503.6030 #### [facility] [address] [place], [address] TIBC 299 ug/dL Normal 250-450 [facility] Comment on above: Order Comment: PLEAS E ADD TO BLOOD IN LAB. THANK YOU!! Performed By: #### L 503.6030 #### [facility] [address] [place], [address] LDHon 01-12-2024 LDH 200 U/L Normal 84-246 [facility] Comment on above: Order Comment: PT CA ME IN EARLY WONT SEE DR UNTIL NEXT WEEK CHANGED [id number] Performed By: #### L 300.3900, L300.4310, L503.6005, L500.4050, M200.1000, L100.0100 #### [facility] [address] [place], [address] Magnesiumon 01-12-2024 Magnesium [Mass/Vol] 2.0 mg/dL Normal 1.6-2.6 [facility] Comment on above: Order Comment: PT CA ME IN EARLY WONT SEE DR UNTIL NEXT WEEK CHANGED [id number] Performed By: #### L 300.3900, L300.4310, L503.6005, L500.4050, M200.1000, L100.0100 #### [facility] [address] [place], [address] Phosphoruson 01-12-2024 Phosphate [Mass/Vol] 3.3 mg/dL Normal 2.5-4.9 [facility] Comment on above: Order Comment: PT CA ME IN EARLY WONT SEE DR UNTIL NEXT WEEK CHANGED [id number] Performed By: #### L 300.3900, L300.4310, L503.6005, L500.4050, M200.1000, L100.0100 #### [facility] [address] [place], [address] Vitamin B12on 01-12-2024 Cobalamin (Vitamin B12) [Mass/Vol] 730 pg/mL Normal 211-911 [facility] Comment on above: Order Comment: PT CA ME IN EARLY WONT SEE DR UNTIL NEXT WEEK CHANGED TO ROUTINE Performed By: #### L 500.4050, L503.6550, L506.0250, L501.2300, L3130.0010, L501.5200, L503.0105, L504.2610, L100.0100 #### [facility] [address] [place], [address] CBC-Complete Blood Cnt No Di ffon 01-10-2024 Erythrocyte distribution width (RBC) [Ratio] 23.4 % High 11.6-14.6 [facility] Comment on above: Performed By: #### L 500.4050, L503.6550, L506.0250, L501.2300, L3130.0010, L501.5200, L503.0105, L504.2610, L100.0100 #### [facility] [address] [place], [address] Hematocrit (Bld) [Volume fraction] 36.5 % Low 37-47 [facility] Comment on above: Performed By: #### L 500.4050, L503.6550, L506.0250, L501.2300, L3130.0010, L501.5200, L503.0105, L504.2610, L100.0100 #### [facility] [address] [place], [address] Hemoglobin (Bld) [Mass/Vol] 11.6 g/dL Low 12.0-15.0 [facility] Comment on above: Performed By: #### L 500.4050, L503.6550, L506.0250, L501.2300, L3130.0010, L501.5200, L503.0105, L504.2610, L100.0100 #### [facility] [address] [place], [address] MCH (RBC) [Entitic mass] 25.3 pg Low 27.0-32.0 [facility] Comment on above: Performed By: #### L 500.4050, L503.6550, L506.0250, L501.2300, L3130.0010, L501.5200, L503.0105, L504.2610, L100.0100 #### [facility] [address] [place], [address] MCHC (RBC) [Mass/Vol] 31.8 g/dL Low 32-36 [facility] Comment on above: Performed By: #### L 500.4050, L503.6550, L506.0250, L501.2300, L3130.0010, L501.5200, L503.0105, L504.2610, L100.0100 #### [facility] [address] [place], [address] MCV (RBC) [Entitic vol] 79.5 fL Low 81-99 [facility] Comment on above: Performed By: #### L 500.4050, L503.6550, L506.0250, L501.2300, L3130.0010, L501.5200, L503.0105, L504.2610, L100.0100 #### [facility] [address] [place], [address] Platelet mean volume (Bld) [Entitic vol] 9.8 fL Normal 6.2-12.0 [facility] Comment on above: Performed By: #### L 500.4050, L503.6550, L506.0250, L501.2300, L3130.0010, L501.5200, L503.0105, L504.2610, L100.0100 #### [facility] [address] [place], [address] Platelets (Bld) [#/Vol] 264 10*3/uL Normal 150-450 [facility] Comment on above: Performed By: #### L 500.4050, L503.6550, L506.0250, L501.2300, L3130.0010, L501.5200, L503.0105, L504.2610, L100.0100 #### [facility] [address] [place], [address] RBC (Bld) [#/Vol] 4.59 10*6/uL Normal 4.2-5.4 [facility] Comment on above: Performed By: #### L 500.4050, L503.6550, L506.0250, L501.2300, L3130.0010, L501.5200, L503.0105, L504.2610, L100.0100 #### [facility] [address] [place], [address] RDW SD 65.4 fl High 35.1-43.9 [facility] Comment on above: Performed By: #### L 500.4050, L503.6550, L506.0250, L501.2300, L3130.0010, L501.5200, L503.0105, L504.2610, L100.0100 #### [facility] [address] [place], [place], [phone] WBC (Bld) [#/Vol] 4.4 10*3/uL Normal 4.4-11.[address] [facility] Comment on above: Performed By: #### L 500.4050, L503.6550, L506.0250, L501.2300, L3130.0010, L501.5200, L503.0105, L504.2610, L100.0100 #### [facility] [address] [place], [place], [id number] CRPon 01-10-2024 C-REACTIVE PROT < 2.90 Normal 0.0-3.0 [facility] Comment on above: Result Comment: C-Re active Protein (CRP) provides useful information for the diagnosis, therapy and monitoring of inflammatory processes and associated diseases. For the evaluation of Relative Risk for Cardiovascular Disease, a High Sensitivity CRP (HSCRP) should be ordered. Performed By: #### L 500.4050, L503.6550, L506.0250, L501.2300, L3130.0010, L501.5200, L503.0105, L504.2610, L100.0100 #### [facility] [address] [place], [address] Comprehensive Metabolic Prof ilon 01-10-2024 Albumin [Mass/Vol] 3.6 g/dL Normal 3.2-5.[address] [facility] Comment on above: Performed By: #### L 500.4050, L503.6550, L506.0250, L501.2300, L3130.0010, L501.5200, L503.0105, L504.2610, L100.0100 #### [facility] [address] [place], [place], [id number] Albumin/Globulin [Mass ratio] 1.1 {ratio} Normal 0.9-2.4 [facility] Comment on above: Performed By: #### L 500.4050, L503.6550, L506.0250, L501.2300, L3130.0010, L501.5200, L503.0105, L504.2610, L100.0100 #### [facility] [address] [place], [address] ALK P 107 U/L Normal 45-117 [facility] Comment on above: Performed By: #### L 500.4050, L503.6550, L506.0250, L501.2300, L3130.0010, L501.5200, L503.0105, L504.2610, L100.0100 #### [facility] [address] [place], [place], [phone] (206) ALT [Catalytic activity/Vol] 31 U/L Normal 13-56 [facility] Comment on above: Performed By: #### L 500.4050, L503.6550, L506.0250, L501.2300, L3130.0010, L501.5200, L503.0105, L504.2610, L100.0100 #### [facility] [address] [place], [address] AST [Catalytic activity/Vol] 38 U/L High 15-37 [facility] Comment on above: Performed By: #### L 500.4050, L503.6550, L506.0250, L501.2300, L3130.0010, L501.5200, L503.0105, L504.2610, L100.0100 #### [facility] [address] [place], [address] Bilirubin [Mass/Vol] 0.50 mg/dL Normal 0.20-1.00 [facility] Comment on above: Result Comment: For patients on eltrombopag therapy, use of Dimension Hext TBIL is not recommended. Performed By: #### L 500.4050, L503.6550, L506.0250, L501.2300, L3130.0010, L501.5200, L503.0105, L504.2610, L100.0100 #### [facility] [address] [place], [address] BUN/CRE 9.4 RATIO Low 10-20 [facility] Comment on above: Performed By: #### L 500.4050, L503.6550, L506.0250, L501.2300, L3130.0010, L501.5200, L503.0105, L504.2610, L100.0100 #### [facility] [address] [place], [address] CA,Total 9.6 mg/dL Normal 8.5-10.1 [facility] Comment on above: Performed By: #### L 500.4050, L503.6550, L506.0250, L501.2300, L3130.0010, L501.5200, L503.0105, L504.2610, L100.0100 #### [facility] [address] [place], [address] Chloride [Moles/Vol] 111 mmol/L High 98-107 [facility] Comment on above: Performed By: #### L 500.4050, L503.6550, L506.0250, L501.2300, L3130.0010, L501.5200, L503.0105, L504.2610, L100.0100 #### [facility] [address] [place], [address] CO2 [Moles/Vol] 23.0 mmol/L Normal 21.0-32.0 [facility] Comment on above: Performed By: #### L 500.4050, L503.6550, L506.0250, L501.2300, L3130.0010, L501.5200, L503.0105, L504.2610, L100.0100 #### [facility] [address] [place], [address] Creatinine [Mass/Vol] 0.96 mg/dL Normal 0.55-1.02 [facility] Comment on above: Result Comment: The validity of the calculated GFR GFRAA in patients over 70 years has not been determined. Clinical correlation is essential. Performed By: #### L 500.4050, L503.6550, L506.0250, L501.2300, L3130.0010, L501.5200, L503.0105, L504.2610, L100.0100 #### [facility] [address] [place], [address] (866) EST GFR - AA 75 mL/min Normal >60 [facility] Comment on above: Result Comment: Afri can Gambian GFR Calc Performed By: #### L 500.4050, L503.6550, L506.0250, L501.2300, L3130.0010, L501.5200, L503.0105, L504.2610, L100.0100 #### [facility] [address] [place], [place], [id number] (973) GAP 5 Normal 5-15 [facility] Comment on above: Performed By: #### L 500.4050, L503.6550, L506.0250, L501.2300, L3130.0010, L501.5200, L503.0105, L504.2610, L100.0100 #### [facility] [address] [place], [address] (023) GFR/1.73 sq M.predicted among non-blacks MDRD (S/P/Bld) [Vol rate/Area] 62 mL/min/{1.73_m2} Normal >60 [facility] Comment on above: Result Comment: Non- GFR Calc Performed By: #### L 500.4050, L503.6550, L506.0250, L501.2300, L3130.0010, L501.5200, L503.0105, L504.2610, L100.0100 #### [facility] [address] [place], [address] Globulin (S) [Mass/Vol] 3.4 g/dL Normal 2.2-4.2 [facility] Comment on above: Performed By: #### L 500.4050, L503.6550, L506.0250, L501.2300, L3130.0010, L501.5200, L503.0105, L504.2610, L100.0100 #### [facility] [address] [place], [address] Glucose [Mass/Vol] 99 mg/dL Normal 74-[address] [facility] Comment on above: Performed By: #### L 500.4050, L503.6550, L506.0250, L501.2300, L3130.0010, L501.5200, L503.0105, L504.2610, L100.0100 #### [facility] [address] [place], [address] Potassium [Moles/Vol] 3.7 mmol/L Normal 3.5-5.1 [facility] Comment on above: Performed By: #### L 500.4050, L503.6550, L506.0250, L501.2300, L3130.0010, L501.5200, L503.0105, L504.2610, L100.0100 #### [facility] [address] [place], [address] Sodium [Moles/Vol] 139 mmol/L Normal 136-[address] [facility] Comment on above: Performed By: #### L 500.4050, L503.6550, L506.0250, L501.2300, L3130.0010, L501.5200, L503.0105, L504.2610, L100.0100 #### [facility] [address] [place], [place], [id number] T PROT 7.0 g/dL Normal 6.4-8.2 [facility] Comment on above: Performed By: #### L 500.4050, L503.6550, L506.0250, L501.2300, L3130.0010, L501.5200, L503.0105, L504.2610, L100.0100 #### [facility] [address] [place], [place], [id number] Urea nitrogen [Mass/Vol] 9 mg/dL Normal 7-18 [facility] Comment on above: Performed By: #### L 500.4050, L503.6550, L506.0250, L501.2300, L3130.0010, L501.5200, L503.0105, L504.2610, L100.0100 #### [facility] [address] [place], [place], [id number] Erythrocyte Sed Rateon 01-09 SED RATE 11 mm/hr Normal 0-30 [facility] Comment on above: Performed By: #### L 500.4050, L503.6550, L506.0250, L501.2300, L3130.0010, L501.5200, L503.0105, L504.2610, L100.0100 #### [facility] [address] [place], [address] Ferritinon 01-10-2024 Ferritin [Mass/Vol] 94 ng/mL Normal 8-252 [facility] Comment on above: Performed By: #### L 500.4050, L503.6550, L506.0250, L501.2300, L3130.0010, L501.5200, L503.0105, L504.2610, L100.0100 #### [facility] [address] [place], [address] Ironon 01-10-2024 Iron [Mass/Vol] 88 ug/dL Normal 50-170 [facility] Comment on above: Performed By: #### L 500.4050, L503.6550, L506.0250, L501.2300, L3130.0010, L501.5200, L503.0105, L504.2610, L100.0100 #### [facility] [address] [place], [address] Vitamin B12on 01-10-2024 Cobalamin (Vitamin B12) [Mass/Vol] 776 pg/mL Normal 211-911 [facility] Comment on above: Performed By: #### L 500.4050, L503.6550, L506.0250, L501.2300, L3130.0010, L501.5200, L503.0105, L504.2610, L100.0100 #### [facility] [address] [place], [address] Telephone Encounteron 2023 Manager Rn Case Authentication Interface Message Text Patient was identified by name and date of and phone number. Advised pt that she needs to be seen for refill of gabapentin. Verbalized understanding, new PCP appointment scheduled. Pt would like to know if she can have referral to pain management. Order pended if appropriate. December 23, 2023 Hilton Johnson MD 12/23/23 7:53 AM Note OARRS reviewed. This is the last prescription that I will refill on behalf of this patietn Future Appointments (next 10) Provider Department Center 02/24/2024 1:00 PM (Arrive by 12:50 PM) Randall Hodgson MD [facility] Normal [facility] Telephone Encounteron 2023 Manager Rn Case Authentication Interface Message Text OARRS reviewed. This is the last prescription that I will refill on behalf of this patietn Normal [facility] CBC W Auto Differential pane l (Bld)on 12-01-2023 Basophils (Bld) [#/Vol] 10*3/uL Normal <0.11 [facility] Comment on above: Order Comment: Speci men Type: BLOOD SPECIMENOrdering Facility: [facility] Address: [address] [place] [address] Performed By: #### 5 7021-8 ####[facility] LABCL[facility] [id number] [facility] [place] [address] [place] Basophils/100 WBC (Bld) 0.4 % Normal [facility] Comment on above: Order Comment: Speci men Type: BLOOD SPECIMENOrdering Facility: [facility] Address: [address] [place] [address] Performed By: #### 5 7021-8 ####[facility] [id number] [place] [address] [place] Differential cell count method Nom (Bld) Auto Normal [facility] Comment on above: Order Comment: Speci men Type: BLOOD SPECIMENOrdering Facility: [facility] Address: [address] [place] [address] Performed By: #### 5 7021-8 ####[facility] [id number] [place] [address] [place] Eosinophils (Bld) [#/Vol] 0.07 10*3/uL Normal <0.46 [facility] Comment on above: Order Comment: Speci men Type: BLOOD SPECIMENOrdering Facility: [facility] Address: [address] [place] [address] Performed By: #### 5 7021-8 ####[facility]CLIA [id number] [place] [address] [place] Eosinophils/100 WBC (Bld) 1.3 % Normal [facility] Comment on above: Order Comment: Speci men Type: BLOOD SPECIMENOrdering Facility: [facility] Address: [address] [place] [address] Performed By: #### 5 7021-8 ####[facility] [id number] [place] [address] [place] Erythrocyte distribution width (RBC) [Ratio] 18.6 % High 11.5-15.0 [facility] Comment on above: Order Comment: Speci men Type: BLOOD SPECIMENOrdering Facility: [facility] Address: [address] [place] [address] Performed By: #### 5 7021-8 ####[facility]CLIA [id number] [place] [address] [place] Hematocrit (Bld) [Volume fraction] 35.9 % Low 36.0-46.0 [facility] Comment on above: Order Comment: Speci men Type: BLOOD SPECIMENOrdering Facility: [facility] Address: [address] [place] [address] Performed By: #### 5 7021-8 ####[facility] LABIA [id number] [place] [address] [place] Hemoglobin (Bld) [Mass/Vol] 11.4 g/dL Low 11.5-15.5 [facility] Comment on above: Order Comment: Speci men Type: BLOOD SPECIMENOrdering Facility: [facility] Address: [address] [place] [address] Performed By: #### 5 7021-8 ####[facility] LABIA [id number] [place] [address] [place] Immature granulocytes (Bld) [#/Vol] 10*3/uL Normal <0.10 [facility] Comment on above: Order Comment: Speci men Type: BLOOD SPECIMENOrdering Facility: [facility] Address: [address] [place] [address] Performed By: #### 5 7021-8 ####[facility] LABIA [id number] [place] [address] [place] Immature granulocytes/100 WBC (Bld) 0.2 % Normal [facility] Comment on above: Order Comment: Speci men Type: BLOOD SPECIMENOrdering Facility: [facility] Address: [address] [place] [address] Performed By: #### 5 7021-8 ####[facility]CL[facility] [id number] [place] [address] [place] Lymphocytes (Bld) [#/Vol] 2.50 10*3/uL Normal 1.00-4.00 [facility] Comment on above: Order Comment: Speci men Type: BLOOD SPECIMENOrdering Facility: [facility] Address: [address] [place] [address] Performed By: #### 5 7021-8 ####[facility]CLIA [id number] [place] [address] [place] Lymphocytes/100 WBC (Bld) 47.8 % Normal [facility] Comment on above: Order Comment: Speci men Type: BLOOD SPECIMENOrdering Facility: [facility] Address: [address] [place] [address] Performed By: #### 5 7021-8 ####[facility]CLIA [id number] [place] [address] [place] MCH (RBC) [Entitic mass] 23.4 pg Low 26.0-34.0 [facility] Comment on above: Order Comment: Speci men Type: BLOOD SPECIMENOrdering Facility: [facility] Address: [address] [place] [address] Performed By: #### 5 7021-8 ####[facility] LABCLIA [id number] [place] [address] [place] MCHC (RBC) [Mass/Vol] 31.8 g/dL Normal 30.5-36.0 [facility] Comment on above: Order Comment: Speci men Type: BLOOD SPECIMENOrdering Facility: [facility] Address: [address] [place] [address] Performed By: #### 5 7021-8 ####[facility]CLIA [id number] [place] [address] [place] MCV (RBC) [Entitic vol] 73.6 fL Low 80.0-100.0 [facility] Comment on above: Order Comment: Speci men Type: BLOOD SPECIMENOrdering Facility: [facility] Address: [address] [place] [address] Performed By: #### 5 7021-8 ####[facility] LABCLIA [id number] [place] [address] [place] Monocytes (Bld) [#/Vol] 0.39 10*3/uL Normal <0.87 [facility] Comment on above: Order Comment: Speci men Type: BLOOD SPECIMENOrdering Facility: [facility] Address: [address] [place] [address] Performed By: #### 5 7021-8 ####[facility] LABIA [id number] [place] [address] [place] Monocytes/100 WBC (Bld) 7.5 % Normal [facility] Comment on above: Order Comment: Speci men Type: BLOOD SPECIMENOrdering Facility: [facility] Address: [address] [place] [address] Performed By: #### 5 7021-8 ####[facility]CLIA [id number] [place] [address] [place] Neutrophils (Bld) [#/Vol] 2.24 10*3/uL Normal 1.45-7.50 [facility] Comment on above: Order Comment: Speci men Type: BLOOD SPECIMENOrdering Facility: [facility] Address: [address] [place] [address] Performed By: #### 5 7021-8 ####[facility]CLIA [id number] [place] [address] [place] Neutrophils/100 WBC (Bld) 42.8 % Normal [facility] Comment on above: Order Comment: Speci men Type: BLOOD SPECIMENOrdering Facility: [facility] Address: [address] [place] [address] Performed By: #### 5 7021-8 ####[facility] LABCLIA [id number] [place] [address] [place] Nucleated RBC (Bld) [#/Vol] 0.02 10*3/uL High <0.01 [facility] Comment on above: Order Comment: Speci men Type: BLOOD SPECIMENOrdering Facility: [facility] Address: [address] [place] [address] Performed By: #### 5 7021-8 ####[facility]CLIA [id number] [place] [address] [place] Nucleated RBC/100 WBC (Bld) [Ratio] 0.4 /100 WBC Normal [facility] Comment on above: Order Comment: Speci men Type: BLOOD SPECIMENOrdering Facility: [facility] Address: [address] [place] [address] Performed By: #### 5 7021-8 ####[facility] LABCLIA [id number] [place] [address] [place] Platelet mean volume (Bld) [Entitic vol] 9.0 fL Normal 9.0-12.7 [facility] Comment on above: Order Comment: Speci men Type: BLOOD SPECIMENOrdering Facility: [facility] Address: [address] [place] [address] Performed By: #### 5 7021-8 ####[facility] LABCLIA [id number] [place] [address] [place] Platelets (Bld) [#/Vol] 383 10*3/uL Normal 150-400 [facility] Comment on above: Order Comment: Speci men Type: BLOOD SPECIMENOrdering Facility: [facility] Address: [address] [place] [address] Performed By: #### 5 7021-8 ####[facility] LABIA [id number] [place] [address] [place] RBC (Bld) [#/Vol] 4.88 10*6/uL Normal 3.90-5.20 [facility] Comment on above: Order Comment: Speci men Type: BLOOD SPECIMENOrdering Facility: [facility] Address: [address] [place] [address] Performed By: #### 5 7021-8 ####[facility] LABIA [id number] [place] [address] [place] WBC (Bld) [#/Vol] 5.23 10*3/uL Normal 3.70-11.00 [facility] Comment on above: Order Comment: Speci men Type: BLOOD SPECIMENOrdering Facility: [facility] Address: [address] [place] [address] Performed By: #### 5 7021-8 ####[facility] [id number] [place] [address] [place] Comprehensive metabolic 2000 panelon 12-01-2023 Albumin [Mass/Vol] 4.0 g/dL Normal 3.9-4.9 [facility] Comment on above: Order Comment: Speci men Type: BLOOD SPECIMENOrdering Facility: [facility] Address: [address] [place] [address] Performed By: #### 2 4323-8, 96944-9, 79141-0, 3016-3 ####[facility] LABIA [id number] [place] [address] [place] ALP [Catalytic activity/Vol] 105 U/L Normal 34-123 [facility] Comment on above: Order Comment: Speci men Type: BLOOD SPECIMENOrdering Facility: [facility] Address: [address] [place] [address] Performed By: #### 2 4323-8, 73413-1, 30680-0, 3016-3 ####[facility] LABCLIA [id number] [place] [address] [place] ALT [Catalytic activity/Vol] 10 U/L Normal 7-38 [facility] Comment on above: Order Comment: Speci men Type: BLOOD SPECIMENOrdering Facility: [facility] Address: [address] [place] [address] Performed By: #### 2 4323-8, 29246-7, 84105-4, 3016-3 ####[facility] LABCLIA [id number] [place] [address] [place] Anion gap [Moles/Vol] 13 mmol/L Normal 9-18 [facility] Comment on above: Order Comment: Speci men Type: BLOOD SPECIMENOrdering Facility: [facility] Address: [address] [place] [address] Performed By: #### 2 4323-8, 19461-2, 64451-4, 3016-3 ####[facility] LABCLIA [id number] [place] [address] [place] AST [Catalytic activity/Vol] 20 U/L Normal 13-35 [facility] Comment on above: Order Comment: Speci men Type: BLOOD SPECIMENOrdering Facility: [facility] Address: [address] [place] [address] Performed By: #### 2 4323-8, 94077-3, 33118-6, 3016-3 ####[facility] LABCLIA [id number] [place] [address] [place] Bilirubin [Mass/Vol] 0.2 mg/dL Normal 0.2-1.3 [facility] Comment on above: Order Comment: Speci men Type: BLOOD SPECIMENOrdering Facility: [facility] Address: [address] [place], [place] [address] Performed By: #### 2 4323-8, 09200-8, 57541-7, 3016-3 ####[facility] LABCLIA [id number] [place] [address] [place] Calcium [Mass/Vol] 9.6 mg/dL Normal 8.5-10.2 [facility] Comment on above: Order Comment: Speci men Type: BLOOD SPECIMENOrdering Facility: [facility] Address: [address] [place] [address] Performed By: #### 2 4323-8, 32468-2, 03406-4, 3016-3 ####[facility] LABIA [id number] [place] [address] [place] Chloride [Moles/Vol] 102 mmol/L Normal 97-105 [facility] Comment on above: Order Comment: Speci men Type: BLOOD SPECIMENOrdering Facility: [facility] Address: [address] [place] [address] Performed By: #### 2 4323-8, 33471-7, 50910-3, 3016-3 ####[facility] LABIA [id number] [place] [address] [place] CO2 [Moles/Vol] 21 mmol/L Low 22-30 [facility] Comment on above: Order Comment: Speci men Type: BLOOD SPECIMENOrdering Facility: [facility] Address: [address] [place] [address] Performed By: #### 2 4323-8, 05502-6, 28461-4, 3016-3 ####[facility] LABIA [id number] [place] [address] [place] Creatinine [Mass/Vol] 0.94 mg/dL Normal 0.58-0.96 [facility] Comment on above: Order Comment: Speci men Type: BLOOD SPECIMENOrdering Facility: [facility] Address: [address] [place] [address] Performed By: #### 2 4323-8, 30391-1, 05037-1, 3016-3 ####[facility] LABIA [id number] [place] [address] [place] Creatinine and Glomerular filtration rate.predicted panel (S/P/Bld) 68 mL/min/1.73m??? Normal >=60 [facility] Comment on above: Order Comment: Edelmira rutherford Type: BLOOD SPECIMENOrdering Facility: [facility] Address: [address] [place] [address] Result Comment: Kelley mated Glomerular Filtration Rate (eGFR) is calculated using the 2020 CKD-EPI creatinine equation. This equation utilizes serum creatinine, sex, and age as parameters. The creatinine assay has traceable calibration to isotope dilution-mass spectrometry. Refer to KDIGO guidelines for clinical interpretation. In patients with unstable renal function, e.g. those with acute kidney injury, the eGFR may not accurately reflect actual GFR. Performed By: #### 2 4323-8, 41538-3, 56868-2, 3016-3 ####[facility] LABIA [id number] [place] [address] [place] Glucose [Mass/Vol] 111 mg/dL High 74-99 [facility] Comment on above: Order Comment: Edelmira rutherford Type: BLOOD SPECIMENOrdering Facility: [facility] Address: [address] [place] [address] Result Comment: The [place] [employer] (ADA) provides guidance for cutoff values for fasting glucose and random glucose. The ADA defines fasting as no caloric intake for at least 8 hours. Fasting plasma glucose results between 100 to 125 mg/dL indicate increased risk for diabetes (prediabetes). Fasting plasma glucose results greater than or equal to 126 mg/dL meet the criteria for diagnosis of diabetes. In the absence of unequivocal hyperglycemia, results should be confirmed by repeat testing. In a patient with classic symptoms of hyperglycemia or hyperglycemic crisis, random plasma glucose results greater than or equal to 200 mg/dL meet the criteria for diagnosis of diabetes. Reference: Standards of Medical Care in Diabetes 2016, [place] [employer]. Diabetes Care. 2016.39(Suppl 1). Performed By: #### 2 4323-8, 38708-1, 48694-4, 3016-3 ####[facility] LABCLIA [id number] [address] [address] [place] Potassium [Moles/Vol] 3.6 mmol/L Low 3.7-5.1 [facility] Comment on above: Order Comment: Speci men Type: BLOOD SPECIMENOrdering Facility: [facility] Address: [address] [place] [address] Performed By: #### 2 4323-8, 16558-1, 51123-1, 3016-3 ####[facility] LABIA [id number] [place] [address] [place] Protein [Mass/Vol] 7.0 g/dL Normal 6.3-8.0 [facility] Comment on above: Order Comment: Speci men Type: BLOOD SPECIMENOrdering Facility: [facility] Address: [address] [place] [address] Performed By: #### 2 4323-8, 50275-7, 82246-2, 3016-3 ####[facility] LABIA [id number] [place] [address] [place] Sodium [Moles/Vol] 136 mmol/L Normal 136-144 [facility] Comment on above: Order Comment: Speci men Type: BLOOD SPECIMENOrdering Facility: [facility] Address: [address] [place], [place] [address] Performed By: #### 2 4323-8, 56558-6, 08405-4, 3016-3 ####[facility] LABIA [id number] [place] [address] [place] Urea nitrogen [Mass/Vol] 9 mg/dL Normal 7-21 [facility] Comment on above: Order Comment: Speci men Type: BLOOD SPECIMENOrdering Facility: [facility] Address: [address] [place] [id number] Performed By: #### 2 4323-8, 04803-3, 75491-2, 3016-3 ####[facility] LABCLIA [id number] [place] [id number] [place] ED NOTEon 12-01-2023 ED NOTE HNO ID: [id number] Author: GRAY HECK RN Service: Emergency Medicine Author Type: Registered Nurse Type: ED Notes Filed: 12/01/2023 15:16 Note Text: Pt with 2 weeks of feeling faint, light headedness, cp, RAMIREZ, gradually becoming worse. Normal [facility] ED Triage Noteon 12-01-2023 ED Triage Note HNO ID: [id number] Author: RONNELL SERVIN MD Service: Emergency Medicine Author Type: Physician Type: ED Triage Notes Filed: 12/01/2023 16:49 Note Text: ED TRIAGE PROVIDER NOTE Patient Name: Morena Patton Service Date: 12/01/23 BRIEF HPI: This is a 63 year old female who presents to the ED with: chest discomfort intermittent, feeling short of breath - has been to local ED without answers or feeling improved. BRIEF EXAM: NAD Awake and Alert Non labored breathing CTAB no WRR INITIAL WORKUP AND DECISION MAKING: Orders Placed This Encounter - XR CHEST 2V FRONTAL/LAT - Complete Blood Count and Differential - Comprehensive Metabolic Panel - Magnesium - Thyroid Stimulating Hormone - High Sensitivity Troponin T with Reflex for ED Chest Pain - NT Pro BNP - Urinalysis with Microscopic - HIGH SENSITIVITY TROPONIN T (SECOND) ED Course as of 12/01/23 1649 Ronnell Servin's Documentation WedDecember 01, 2023 1645 Patient states she is upset at waiting six hours (I triaged her - has been here 1:40 mins) and needs to drive home before dark in [place]. Review results thus far, no severe abnormalities. Encouraged RTED at any time to continue her workup here, or closer to home at [facility] facilities such as [place] or [facility]. Clinical Impressions as of 12/01/23 1649 Chest pain, unspecified type SOB (shortness of breath) Tobacco use Primary hypertension Iron deficiency anemia, unspecified iron deficiency anemia type Thank you, Ronnell Servin MD [facility] [place] SIGNATURE: Ronnell Servin MD UPDATE for patient choosing to leave prior to being roomed and performance of a complete evaluation. Normal [facility] HIGH SENSITIVITY TROPONIN T (INITIAL)on 12-01-2023 Troponin T.cardiac High sensitivity method [Mass/Vol] 10 ng/L Normal <12 [facility] Comment on above: Order Comment: Speci men Type: BLOOD SPECIMENOrdering Facility: [facility] Address: [address] [place] [address] Result Comment: When assessing risk for acute coronary syndromes: In patients undergoing blood draw greater than or equal to 2 hours from symptom onset, with history of very low to moderate risk and non-ischemic ECG, an initial hs-Troponin T less than 12 ng/L AND a 1 hour delta hs-Troponin T less than 3 ng/L should be considered very low risk for 30 day MACE. Performed By: #### L [id number] ####[facility] LABIA [id number] [place] [address] [place] Magnesium SerPl-mCncon 11-30 Magnesium [Mass/Vol] 1.9 mg/dL Normal 1.7-2.3 [facility] Comment on above: Order Comment: Edelmira rutherford Type: BLOOD SPECIMENOrdering Facility: [facility] Address: [address] [place] [address] Performed By: #### 2 4323-8, 33327-2, 14280-2, 3016-3 ####[facility] LABIA [id number] [place] [address] [place] NT-proBNP SerPl-mCncon 11-30 Natriuretic peptide.B prohormone N-Terminal [Mass/Vol] 90 pg/mL Normal <125 [facility] Comment on above: Order Comment: Edelmira rutherford Type: BLOOD SPECIMENOrdering Facility: [facility] Address: [address] [place] [address] Performed By: #### 2 4323-8, 38385-9, 05830-9, 3016-3 ####[facility] LABCLIA [id number] [place] [id number] [place] TSH SerPl-aCncon 12-01-2023 TSH Qn 1.080 m[IU]/L Normal 0.270-4.200 [facility] Comment on above: Order Comment: Speci men Type: BLOOD SPECIMENOrdering Facility: [facility] Address: [address] [place] [address] Performed By: #### 2 4323-8, 55610-5, 28129-2, 3016-3 ####[facility] LABCLIA [id number] [place] [id number] [place] XR CHEST 2V FRONTAL/LATon XR CHEST 2V FRONTAL/LAT * * *Final Report* * * DATE OF EXAM: Dec 01 2023 3:37PM EGX [id number] - XR CHEST 2V FRONTAL/LAT / PROCEDURE REASON: Shortness of breath * * * * Physician Interpretation * * * * EXAMINATION: CHEST RADIOGRAPH (2 VIEW FRONTAL and LATERAL) CLINICAL HISTORY: Shortness of breath MQ: XC2_6 EXAM DATE/TIME: 12/01/2023 3:37 PM COMPARISON: 05/16/2015 RESULT: Lines, tubes, and devices: None. Lungs and pleura: No consolidation. No pleural effusion. No pneumothorax. Cardiomediastinal silhouette: Stable cardiomediastinal silhouette. Bones and soft tissues: Degenerative changes. IMPRESSION: No acute radiographic abnormality. [employer]: PSCB Transcribe Date/Time: Dec 01 2023 3:46P Dictated by : JOVANI ESCUDERO MD This examination was interpreted and the report reviewed and electronically signed by: ORESTES LI MD on Dec 01 2023 3:54PM EST [id number] Normal [facility] Absolute lymphocyte countOrd ered By: Charly Almonte on 11-16-2023 Lymphocytes Auto (Unsp spec) [#/Vol] 3.06 10*3/uL 0.83-4.51 [facility] Automated lymphocyte count a s percentage of total leukocytesOrdered By: Charly Almonte on 11-16-2023 Lymphocytes/100 WBC Auto (Unsp spec) 57.5 % 19-41 [facility] Basophil percentageOrdered B y: Charly Almonte on 11-16-2023 Basophils/100 WBC (Bld) 0.4 % 0-1 [facility] Chloride [Moles/Vol] 110 mmol/L 98-107 [facility] Eosinophils/100 WBC (Bld) 1.7 % 0-5 [facility] Glucose [Mass/Vol] 113 mg/dL 74-[address] [facility] Comment on above: Fasting Glucose resu lt from 100 to 125 mg/dL suggests IMPAIRED HOMEOSTASIS per A.D.A. criteria. Hemoglobin (Bld) [Mass/Vol] 11.5 g/dL 12.0-15.0 [facility] Monocytes/100 WBC (Bld) 6.8 % 0-10 [facility] Neutrophils (Bld) [#/Vol] 1.8 10*3/uL 2.0-7.7 [facility] Neutrophils/100 WBC (Bld) 33.4 % 47-70 [facility] Potassium [Moles/Vol] 3.7 mmol/L 3.5-5.1 [facility] Sodium [Moles/Vol] 140 mmol/L 136-[address] [facility] WBC (Bld) [#/Vol] 5.3 10*3/uL 4.4-11.[address] [facility] Determination of erythrocyte mean corpuscular volume (MCV)Ordered By: Charly Almonte on 11-16-2023 MCV (RBC) [Entitic vol] 74.5 fL 81-99 [facility] Erythrocyte distribution wid th ratioOrdered By: Charly Almonte on 11-16-2023 Erythrocyte distribution width (RBC) [Ratio] 18.6 % 11.6-14.6 [facility] Erythrocyte distribution wid th standard deviationOrdered By: Charly Almonte on 11-16-2023 Erythrocyte distribution width (RBC) [Entitic vol] 49.6 fL 35.1-43.9 [facility] Hematocrit Auto (Bld) [Volum e fraction]Ordered By: Charly Almonte on 11-16-2023 Hematocrit (Bld) [Volume fraction] 37.1 % 37-47 [facility] Immature granulocytes/100 WB C Auto (Bld)Ordered By: Charly Almonte on 11-16-2023 Immature granulocytes/100 WBC (Bld) 0.200 % 0.0-0.9 [facility] Comment on above: IG% - Immature Granu locytes (promyelocytes, myelocytes and metamyelocytes) > 1% indicates that a LEFT SHIFT is Present. Laboratory - Chemistry and C hemistry - challengeOrdered By: Charly Almonte on 11-16-2023 CO2 [Moles/Vol] 25.0 mmol/L 21.0-32.0 [facility] Urea nitrogen/Creatinine [Mass ratio] 14.4 mg/mg 10-20 [facility] Laboratory - Hematology and Cell countsOrdered By: Charly Almonte on 11-16-2023 MCH (RBC) [Entitic mass] 23.1 pg 27.0-32.0 [facility] MCHC (RBC) [Mass/Vol] 31.0 g/dL 32-36 [facility] Nucleated RBC/100 WBC (Bld) [Ratio] 0 % 0-5 [facility] Platelet mean volume (Bld) [Entitic vol] 9.2 fL 6.2-12.0 [facility] Platelets (Bld) [#/Vol] 396 10*3/uL 150-450 [facility] Laboratory - Microbiology an d Antimicrobial susceptibilityOrdered By: Charly Almonte on 11-16-2023 SARS-CoV-2 (COVID-19) RNA BISI+probe Ql (Unsp spec) [facility] No Panel InformationOrdered By: Charly Almonte on 11-16-2023 Troponin I High Sensitivity 28 pg/mL 3.0-54.0 [facility] Comment on above: Please Note: New Sary t Units and Gender Specific Reference Ranges. For more information see Policy Stat Procedure Hext High Sensitivity Troponin (TNIH) and attachments. D-Dimer Quantitative (PE/DVT) 0.37 FEU/ug/m 0.27-0.49 [facility] Comment on above: NORMAL D-Dimer level (<0.50) indicates no DVT or PE. Estimated Creatinine Clearance Calc 51.83 ml/min [facility] Estimated GFR (MDRD) Amer 69 mL/min >60 [facility] Comment on above: GFR Calc Estimated GFR (MDRD) Non-Af Amer 57 mL/min >60 [facility] Comment on above: Non- GFR Calc RBC Auto (Bld) [#/Vol]Ordere d By: Charly Almonte on 11-16-2023 RBC (Bld) [#/Vol] 4.98 10*6/uL 4.2-5.4 [facility] Serum or plasma calcium angela urement (mass/volume)Ordered By: Charly Almonte on 11-16-2023 Calcium [Mass/Vol] 9.3 mg/dL 8.5-10.[address] [facility] Serum or plasma creatinine m easurement (mass/volume)Ordered By: Charly Almonte on 11-16-2023 Creatinine [Mass/Vol] 1.04 mg/dL 0.55-1.02 [facility] Comment on above: The validity of the calculated GFR & GFRAA in patients over 70 years has not been determined. Clinical correlation is essential. Serum or plasma urea nitroge n measurement (mass/volume)Ordered By: Charly Almonte on 11-16-2023 Urea nitrogen [Mass/Vol] 15 mg/dL 7-18 [facility] Thin prep Papanicolaou smear with manual screeningOrdered By: Charly Almonte on 11-16-2023 Thin prep Papanicolaou smear with manual screening 5 5-15 [facility] Telephone Encounteron 2023 Manager Rn Case Authentication Interface Message Text OARRS reviewed Normal [facility] Telephone Encounteron 2023 Manager Rn Case Authentication Interface Message Text Patient must schedule, and keep, follow up appointments to continue to receive this medication. Normal [facility] Telephone Encounteron 2022 Manager Rn Case Authentication Interface Message Text OARRS reviewed Normal [facility] Telephone Encounteron 2022 Manager Rn Case Authentication Interface Message Text Care Gaps Scheduling Health Maintenence Due: Medicare AWV/PCP Visit: deferred Eye Exam: not due Foot Exam: not due Annual Bloodwork: active orders YOKO: not due Normal [facility] Absolute lymphocyte countOrd ered By: Blaise Tom on 03-23-2023 Lymphocytes Auto (Unsp spec) [#/Vol] 2.35 10*3/uL 0.83-4.51 [facility] Amorphous sediment detection in urine sediment by light microscopyOrdered By: Blaise Tom on 03-23-2023 Amorphous sediment LM Ql (Urine sed) 1+ URATE [facility] Basophil percentageOrdered B y: Blaise Tom on 03-23-2023 Basophil percentage 0-5 SEEN /hpf 0-5 [facility] Basophils/100 WBC (Bld) 0.4 % 0-1 [facility] Bilirubin [Mass/Vol] 0.20 mg/dL 0.20-1.00 [facility] Comment on above: For patients on eltr ombopag therapy, use of Dimension Hext TBIL is not recommended. Chloride [Moles/Vol] 109 mmol/L 98-107 [facility] Eosinophils/100 WBC (Bld) 2.0 % 0-5 [facility] Glucose [Mass/Vol] 85 mg/dL 74-[address] [facility] Neutrophils (Bld) [#/Vol] 1.8 10*3/uL 2.0-7.7 [facility] Neutrophils/100 WBC (Bld) 37.9 % 47-70 [facility] Potassium [Moles/Vol] 4.0 mmol/L 3.5-5.1 [facility] Protein [Mass/Vol] 6.7 g/dL 6.4-8.[address] [facility] Sodium [Moles/Vol] 140 mmol/L 136-[address] [facility] WBC (Bld) [#/Vol] 4.6 10*3/uL 4.4-11.[address] [facility] Bilirubin Test strip Ql (U)O rdered By: Blaise Tom on 03-23-2023 Bilirubin Ql (U) Negative Negative [facility] Blood erythrocytes count (nu mber/volume)Ordered By: Blaise Tom on 03-23-2023 RBC (Bld) [#/Vol] 4.77 10*6/uL 4.2-5.4 [facility] Blood hemoglobin measurement (mass/volume)Ordered By: Blaise Tom on 03-23-2023 Hemoglobin (Bld) [Mass/Vol] 11.5 g/dL 12.0-15.0 [facility] Blood lymphocytes/100 leukoc ytesOrdered By: Blaise Tom on 03-23-2023 Lymphocytes/100 WBC (Bld) 51.0 % 19-41 [facility] Blood manual differential co mment interpretation (narrative result)Ordered By: Blaise Tom on 03-23-2023 Manual differential comment Ryan (Bld) [Interp] See comment [facility] Comment on above: 1+ ANISOCYTOSIS Blood monocytes/100 leukocyt esOrdered By: Blaise Tom on 03-23-2023 Monocytes/100 WBC (Bld) 8.7 % 0-10 [facility] Blood platelet mean volumeOr dered By: Blaise Tom on 03-23-2023 Platelet mean volume (Bld) [Entitic vol] 9.1 fL 6.2-12.0 [facility] Determination of erythrocyte mean corpuscular volume (MCV)Ordered By: Blaise Tom on 03-23-2023 MCV (RBC) [Entitic vol] 77.8 fL 81-99 [facility] Hematocrit Auto (Bld) [Volum e fraction]Ordered By: Blaise Tom on 03-23-2023 Hematocrit (Bld) [Volume fraction] 37.1 % 37-47 [facility] Ketones Test strip Ql (U)Ord ered By: Blaise Tom on 03-23-2023 Ketones Ql (U) 15 mg/dl Negative [facility] Laboratory - Chemistry and C hemistry - challengeOrdered By: Blaise Tom on 03-23-2023 ALP [Catalytic activity/Vol] 92 U/L 45-117 [facility] ALT [Catalytic activity/Vol] 22 U/L 13-56 [facility] CO2 [Moles/Vol] 24.0 mmol/L 21.0-32.0 [facility] Globulin (S) [Mass/Vol] 3.5 g/dL 2.2-4.2 [facility] Lipase [Catalytic activity/Vol] 38 U/L 13-75 [facility] Comment on above: Please note:LIPASE r evised reference range effective 22. New Lipase methodology. Expected to produce lower values than the previous assay method. NEW Reference Range: 13 - 75 U/L Urea nitrogen/Creatinine [Mass ratio] 17.0 mg/mg 10-20 [facility] Laboratory - Hematology and Cell countsOrdered By: Blaise Tom on 03-23-2023 Erythrocyte distribution width (RBC) [Entitic vol] 56.7 fL 35.1-43.9 [facility] Erythrocyte distribution width (RBC) [Ratio] 20.6 % 11.6-14.6 [facility] Immature granulocytes/100 WBC (Bld) 0.000 % 0.0-0.9 [facility] Comment on above: IG% - Immature Granu locytes (promyelocytes, myelocytes and metamyelocytes) > 1% indicates that a LEFT SHIFT is Present. MCH (RBC) [Entitic mass] 24.1 pg 27.0-32.0 [facility] Nucleated RBC/100 WBC (Bld) [Ratio] 0 % 0-5 [facility] MCHC Auto (RBC) [Mass/Vol]Or dered By: Blaise Tom on 03-23-2023 MCHC (RBC) [Mass/Vol] 31.0 g/dL 32-36 [facility] Mucus LM Ql (Urine sed)Order ed By: Blaise Tom on 03-23-2023 Mucus Ql (Urine sed) 0 SEEN /hpf [facility] Nitrite Test strip Ql (U)Ord ered By: Blaise oTm on 03-23-2023 Nitrite Ql (U) Negative Negative [facility] No Panel InformationOrdered By: Blaise Tom on 03-23-2023 Estimated Creatinine Clearance Calc 50.85 ml/min [facility] Estimated GFR (MDRD) Amer 67 mL/min >60 [facility] Comment on above: GFR Calc Estimated GFR (MDRD) Non-Af Amer 56 mL/min >60 [facility] Comment on above: Non- GFR Calc Platelets bldOrdered By: Darwin Tom on 03-23-2023 Platelets (Bld) [#/Vol] 225 10*3/uL 150-450 [facility] Protein Test strip Ql (U)Ord ered By: Blaise Tom on 03-23-2023 Protein Ql (U) 30 mg/dl Negative [facility] Serum or plasma albumin angela urement (mass/volume)Ordered By: Blaise Tom on 03-23-2023 Albumin [Mass/Vol] 3.2 g/dL 3.2-5.[address] [facility] Serum or plasma albumin/glob ulin mass ratioOrdered By: Blaise Tom on 03-23-2023 Albumin/Globulin [Mass ratio] 0.9 {ratio} 0.9-2.4 [facility] Serum or plasma calcium angela urement (mass/volume)Ordered By: Blaise Tom on 03-23-2023 Calcium [Mass/Vol] 9.1 mg/dL 8.5-10.[address] [facility] Serum or plasma creatinine m easurement (mass/volume)Ordered By: Blaise Tom on 03-23-2023 Creatinine [Mass/Vol] 1.06 mg/dL 0.55-1.02 [facility] Comment on above: The validity of the calculated GFR & GFRAA in patients over 70 years has not been determined. Clinical correlation is essential. Serum or plasma urea nitroge n measurement (mass/volume)Ordered By: Blaise Tom on 03-23-2023 Urea nitrogen [Mass/Vol] 18 mg/dL 7-18 [facility] Squamous epithelial cells de tection in urine sediment by light microscopyOrdered By: Blaise Tom on 03-23-2023 Epithelial cells.squamous LM Ql (Urine sed) 0-5 SEEN /hpf 5-10 [facility] Thin prep Papanicolaou smear with manual screeningOrdered By: Blaise Tom on 03-23-2023 Thin prep Papanicolaou smear with manual screening 17 U/L 15-37 [facility] Thin prep Papanicolaou smear with manual screening 7 5-15 [facility] Urine blood detectionOrdered By: Blaise Tom on 03-23-2023 RBC Ql (U) 10 /ul Negative [facility] RBC Ql (U) 0-5 SEEN /hpf 0-5 [facility] Urine clarityOrdered By: Darwin Tom on 03-23-2023 Clarity (U) Clear Clear [facility] Urine color determinationOrd ered By: Blaise Tom on 03-23-2023 Color (U) Yellow Yellow [facility] Urine glucose detectionOrder ed By: Blaise Tom on 03-23-2023 Glucose Ql (U) Normal mg/dl Normal [facility] Urine leukocyte esterase det ection by dipstickOrdered By: Blaise Tom on 03-23-2023 Leukocyte esterase Test strip Ql (U) 25 /ul Negative [facility] Urine pHOrdered By: Blaise ordaz on 08-22-2023 pH (U) 6.0 [pH] 5.0 - 8.0 [facility] Urine sediment bacteria coun t by microscopy (number/high power field)Ordered By: Blaise Tom on 03-23-2023 Bacteria LM.HPF (Urine sed) [#/Area] 0 /[HPF] None Seen [facility] Urine specific gravity measu rementOrdered By: Blaise Tom on 03-23-2023 Specific gravity (U) [Rel density] 1.020 1.002-1.030 [facility] Urobilinogen Auto test strip Ql (U)Ordered By: Blaise Tom on 03-23-2023 Urobilinogen Ql (U) 1 mg/dl Normal [facility] Telephone Encounteron 2022 Manager Rn Case Authentication Interface Message Text Order pended for provider review AND signature. Requested Prescriptions Pending Prescriptions Disp Refills Syringe 23G X 1 3 ML MISC 12 Each 0 Si Syringe once a month. vitamin B-12 (CYANOCOBALAMIN) 1000 MCG/ML injection 12 Each 0 Sig: Inject 1 mL into the muscle once a month. Normal [facility] Manager Rn Case Authentication Interface Message Text Pharmacy requesting medication substitution. Medication not available to order: Cyanocobalamin 1000 MCG/ML KIT Recommended alternative medications: Pharmacy is requesting two separate prescriptions, one for the vitamin B injection solution and the other for the syringe to inject it. Prescribing provider's name: Hilton Johnson MD Pharmacy Name: [facility] Normal [facility] Telephone Encounteron 2022 Manager Rn Case Authentication Interface Message Text Patient was identified by name and date of . Lisa Ballesteros RN Called patient and relayed message below. Please call and inform patient that her blood work overall looked good. Her hemoglobin is improved and her total body iron stores are still a bit low (though not severely low) so there is no need to for her to get IV iron immediately. Her cholesterol is elevated and I recommend that she start on a statin medication (atorvastatin) which she will take daily. A prescription was sent to her pharmacy in [place]. She should repeat her lipid panel sometime in May. Patient verbalized understanding with no further questions. Normal [facility] Manager Rn Case Authentication Interface Message Text Prescribing a statin in response to the elevated cholesterol and total nonHDL cholesterol identified on her lipid panel realizing that the HDL is quite elevated and might indicate some degree of protection against CVD. Normal [facility] Addendum Noteon 03-09-2023 Manager Rn Case Authentication Interface Message Text Addended by: NICHELLE HILLS on: 03/09/2023 02:14 PM Modules accepted: Orders Normal [facility] BASIC METABOLIC PANELon 08-0 Anion gap [Moles/Vol] 12 mmol/L Normal 10-20 [facility] Comment on above: Performed By: #### V ITB12, HDL, CH8, LUCIAN ####[facility] PATHOLOGY [id number] [place], [place], Calcium [Mass/Vol] 9.5 mg/dL Normal 8.4-10.4 [facility] Comment on above: Performed By: #### V ITB12, HDL, CH8, LUCIAN ####[facility] PATHOLOGY [id number] [place], [place], Chloride [Moles/Vol] 108 mmol/L Normal 97-111 [facility] Comment on above: Performed By: #### V ITB12, HDL, CH8, LUCIAN ####[facility] PATHOLOGY [id number] [place], [place], CO2 [Moles/Vol] 25 mmol/L Normal 21-30 [facility] Comment on above: Performed By: #### V ITB12, HDL, CH8, LUCIAN ####S PATHOLOGY [id number] [place], [place], Creatinine [Mass/Vol] 1.05 mg/dL Normal 0.50-1.10 [facility] Comment on above: Performed By: #### V ITB12, HDL, CH8, LUCIAN ####S PATHOLOGY [id number] [place], [place], ESTIMATED GFR (CKD-EPI) 60 mL/min/1.73sqm Normal >=60 [facility] Comment on above: Result Comment: 2020 CKD EPI Equation using Creatinine without Race Comment: Estimated glomerular filtration rate (eGFR) is calculated without a race coefficient. Values should be interpreted in the context of the patient's full clinical presentation. Reference: 1. Doherty C, Vic M, Anastasia MIN, et al.. A Unifying Approach for GFR Estimation: Recommendations of the NKF-ASN Task Force on Reassessing the Inclusion of Race in Diagnosing Kidney Disease. [place] Journal of Kidney Diseases 202;79(2):268-88.e1. 2. N Engl J Med 1 Vol. 385 Issue 19 Pages 9105-3913 Performed By: #### V ITB12, HDL, CH8, LUCIAN ####S PATHOLOGY [id number] [place], [place], Glucose [Mass/Vol] 85 mg/dL Normal 80-116 [facility] Comment on above: Performed By: #### V ITB12, HDL, CH8, LUCIAN ####S PATHOLOGY [id number] [place], [place], Potassium [Moles/Vol] 4.1 mmol/L Normal 3.3-5.3 [facility] Comment on above: Performed By: #### V ITB12, HDL, CH8, LUCIAN ####S PATHOLOGY [id number] [place], [place], Sodium [Moles/Vol] 141 mmol/L Normal 135-148 [facility] Comment on above: Performed By: #### V ITB12, HDL, CH8, LUCIAN ####S PATHOLOGY [id number] [place], [place], Urea nitrogen [Mass/Vol] 16 mg/dL Normal 8-22 [facility] Comment on above: Performed By: #### V ITB12, HDL, CH8, LUCIAN ####S PATHOLOGY [id number] [place], [place], Basic metabolic 2000 panelon 03-09-2023 Anion gap [Moles/Vol] 12 mmol/L 10 - 20 [facility] Calcium [Mass/Vol] 9.5 mg/dL 8.4 - 10. 4 mg/dL [facility] Chloride [Moles/Vol] 108 mmol/L 97 - 11 1 mmol/L [facility] CO2 [Moles/Vol] 25 mmol/L 21 - 30 mmol/L [facility] Creatinine [Mass/Vol] 1.05 mg/dL 0.50 - 1.10 mg/dL [facility] GFR/1.73 sq M.predicted MDRD (S/P/Bld) [Vol rate/Area] 60 mL/min/{1.73_m2} - PINF [facility] Comment on above: 2020 CKD EPI Equatio n using Creatinine without Race Comment: Estimated glomerular filtration rate (eGFR) is calculated without a race coefficient. Values should be interpreted in the context of the patient's full clinical presentation. Reference: 1. Cahs C, Vic M, Anastasia MIN, et al.. A Unifying Approach for GFR Estimation: Recommendations of the NKF-ASN Task Force on Reassessing the Inclusion of Race in Diagnosing Kidney Disease. [place] Journal of Kidney Diseases 202;79(2):268-88.e1. 2. N Engl J Med 2020 Vol. 385 Issue 19 Pages 7161-1492 Glucose [Mass/Vol] 85 mg/dL 80 - 116 mg/dL [facility] Interpretation and review of laboratory results Normal [facility] Potassium [Moles/Vol] 4.1 mmol/L 3.3 - 5.3 mmol/L [facility] Sodium [Moles/Vol] 141 mmol/L 135 - 148 mmol/L [facility] Urea nitrogen [Mass/Vol] 16 mg/dL 8 - 22 mg/dL [facility] CBC WITH DIFFERENTIALOrdered By: Flower Draper on 03-09-2023 Basophils (Bld) [#/Vol] 0.03 10*3/uL 0.00 - 0.20 K/uL [facility] Basophils/100 WBC (Bld) 0.8 % NINF - 1.9 % [facility] Eosinophils (Bld) [#/Vol] 0.08 10*3/uL 0.00 - 0.70 K/uL [facility] Eosinophils/100 WBC (Bld) 2.0 % 0.1 - 4.0 % [facility] Erythrocyte distribution width (RBC) [Ratio] 20.3 % High 11.5 - 14.5 % [facility] Hematocrit (Bld) [Volume fraction] 37.7 % 36.0 - 46.0 % [facility] Hemoglobin (Bld) [Mass/Vol] 11.9 g/dL Low 12.0 - 15.0 g/dL [facility] Interpretation and review of laboratory results Abnormal [facility] Lymphocytes (Bld) [#/Vol] 2.22 10*3/uL 1.00 - 4.80 K/uL [facility] Lymphocytes/100 WBC (Bld) 53.0 % High 24.0 - 44.0 % [facility] MCH (RBC) [Entitic mass] 24.5 pg Low 26.0 - 34.0 pg [facility] MCHC (RBC) [Mass/Vol] 31.6 g/dL Low 32.0 - 35.9 g/dL [facility] MCV (RBC) [Entitic vol] 78 fL Low 80 - 100 fL [facility] Monocyte distribution width Auto (Bld) [Entitic vol] [facility] Monocytes (Bld) [#/Vol] 0.29 10*3/uL 0.20 - 1.00 K/uL [facility] Monocytes/100 WBC (Bld) 7.0 % 2.0 - 11.0 % [facility] Neutrophils (Bld) [#/Vol] 1.56 10*3/uL 1.50 - 8.00 K/uL [facility] Neutrophils/100 WBC (Bld) 37.3 % 31.0 - 76.0 % [facility] Platelet mean volume (Bld) [Entitic vol] 8.0 fL 7.5 - 11.2 fL [facility] Platelets (Bld) [#/Vol] 229 10*3/uL 150 - 400 K/uL [facility] RBC (Bld) [#/Vol] 4.87 10*6/uL [facility] WBC (Bld) [#/Vol] 4.2 10*3/uL Low 4.5 - 11.5 K/[facility]L [facility] CBC WITH DIFFERENTIALon 08-0 Basophils (Bld) [#/Vol] 0.03 10*3/uL Normal 0.00-0.20 [facility] Comment on above: Performed By: #### KERI BEASLEY ####[facility] PATHOLOGY [id number] [place], [address] Basophils/100 WBC (Bld) 0.8 % Normal <=1.9 [facility] Comment on above: Performed By: #### KERI BEASLEY ####[facility] PATHOLOGY [id number] [place], [place], Eosinophils (Bld) [#/Vol] 0.08 10*3/uL Normal 0.00-0.70 [facility] Comment on above: Performed By: #### KERI BEASLEY ####S PATHOLOGY [id number] [place], [place], Eosinophils/100 WBC (Bld) 2.0 % Normal 0.1-4.0 [facility] Comment on above: Performed By: #### KERI BEASLEY ####S PATHOLOGY [id number] [place], [place], Erythrocyte distribution width (RBC) [Ratio] 20.3 % High 11.5-14.5 [facility] Comment on above: Performed By: #### KERI BEASLEY ####[facility] PATHOLOGY [id number] [place] [address], Hematocrit (Bld) [Volume fraction] 37.7 % Normal 36.0-46.0 [facility] Comment on above: Performed By: ###KERI VILLATORO ####[facility] PATHOLOGY [id number] [place], Hemoglobin (Bld) [Mass/Vol] 11.9 g/dL Low 12.0-15.0 [facility] Comment on above: Performed By: #### KERI BEASLEY ####[facility] PATHOLOGY [id number] [place], Lymphocytes (Bld) [#/Vol] 2.22 10*3/uL Normal 1.00-4.80 [facility] Comment on above: Performed By: ###KERI VILLATORO ####S PATHOLOGY [id number] [place], Lymphocytes/100 WBC (Bld) 53.0 % High 24.0-44.0 [facility] Comment on above: Performed By: #### KERI BEASLEY ####S PATHOLOGY [id number] [place], MCH (RBC) [Entitic mass] 24.5 pg Low 26.0-34.0 [facility] Comment on above: Performed By: ###KERI VILLATORO ####[facility] PATH[facility] [id number] [place], MCHC (RBC) [Mass/Vol] 31.6 g/dL Low 32.0-35.9 [facility] Comment on above: Performed By: ###KERI VILLATORO ####[facility] PATH[facility] [id number] [place], MCV (RBC) [Entitic vol] 78 fL Low 80-100 [facility] Comment on above: Performed By: ###KERI VILLATORO ####[facility] PATH[facility]Y [id number] [place], MONOCYTE DISTRIBUTION WIDTH Normal [facility] Comment on above: Performed By: ###KERI VILLATORO ####[facility] PATH[facility] [id number] [place] [address], Monocytes (Bld) [#/Vol] 0.29 10*3/uL Normal 0.20-1.00 [facility] Comment on above: Performed By: ###KERI VILLATORO ####[facility] PATHOLOGY [id number] [place], Monocytes/100 WBC (Bld) 7.0 % Normal 2.0-11.0 [facility] Comment on above: Performed By: ###KERI VILLATORO ####[facility] PATHOLOGY [id number] [place], Neutrophils (Bld) [#/Vol] 1.56 10*3/uL Normal 1.50-8.00 [facility] Comment on above: Performed By: ###KERI VILLATORO ####[facility] PATH[facility] [id number] [place], Neutrophils/100 WBC (Bld) 37.3 % Normal 31.0-76.0 [facility] Comment on above: Performed By: ###KERI VILLATORO ####MHP[facility] PATHOLOGY [id number] [place], Platelet mean volume (Bld) [Entitic vol] 8.0 fL Normal 7.5-11.2 [facility] Comment on above: Performed By: ###KERI VILLATORO ####[facility] PATHOLOGY [id number] [place], Platelets (Bld) [#/Vol] 229 10*3/uL Normal 150-400 [facility] Comment on above: Performed By: #### KERI BEASLEY ####[facility] PATHOLOGY [id number] [place], RBC (Bld) [#/Vol] 4.87 10*6/uL Normal 4.00-5.20 [facility] Comment on above: Performed By: ###KERI VILLATORO ####[facility] PATHOLOGY [id number] [place], WBC (Bld) [#/Vol] 4.2 10*3/uL Low 4.5-11.5 [facility] Comment on above: Performed By: ###KERI VILLATORO ####[facility] PATHOLOGY [id number] [place] [address], DARK BLUE TOP TUBE, BLOODon 03-09-2023 Extra Tube Done [facility] FERRITINon 03-09-2023 Ferritin [Mass/Vol] 12.2 ng/mL 10.3 - 2 19.0 ng/mL [facility] Interpretation and review of laboratory results Normal [facility] LUCIAN 12.2 ng/mL Normal 10.3-219.0 [facility] Comment on above: Performed By: #### Kevin ITB12, HDL, CH8, LUCIAN ####[facility] PATHOLOGY [id number] [place] [address], FULL LIPID PROFILEon 023 Cholesterol [Mass/Vol] 256 mg/dL High <200 Th e [facility] Comment on above: Performed By: #### Kevin ITB12, HDL, CH8, LUCIAN ####[facility] PATHOLOGY [id number] [place] [address] [place], Cholesterol in LDL [Mass/Vol] 175 mg/dL High <111 [facility] Comment on above: Performed By: #### V ITB12, HDL, CH8, LUCIAN ####[facility] PATHOLOGY [id number] [place], Cholesterol.total/Chol esterol in HDL [Mass ratio] 3.66 {ratio} Normal <5.00 [facility] Comment on above: Performed By: #### V ITB12, HDL, CH8, LUCIAN ####[facility] PATHOLOGY [id number] [place], HDL CHOL 70 mg/dL Normal >54 [facility] Comment on above: Performed By: #### V ITB12, HDL, CH8, LUCIAN ####[facility] PATHOLOGY [id number] [place] [address], LDL/HDL 2.50 Normal <3.57 [facility] Comment on above: Performed By: #### V ITB12, HDL, CH8, LUCIAN ####[facility] PATHOLOGY [id number] [place], NON-HDL CHOLESTEROL 186 mg/dL High <130 [facility] Comment on above: Performed By: #### V ITB12, HDL, CH8, LUCIAN ####[facility] PATHOLOGY [id number] [place] [address], Triglyceride [Mass/Vol] 86 mg/dL Normal <151 [facility] Comment on above: Performed By: #### V ITB12, HDL, CH8, LUCIAN ####[facility] PATHOLOGY [id number] [place], HEMOGLOBIN A1Con 03-09-2023 Glucose [Mass/Vol] 123 mg/dL Normal [facility] Comment on above: Performed By: #### H B A1C #### S [facility]OR[facility] [address] [place], [address] HbA1c (Bld) [Mass fraction] 5.9 % High 4.0-5.6 [facility] Comment on above: Performed By: #### H B A1C #### S [facility]OR[facility] [address] [place], [address] Lipid 1996 panelon 3 Cholesterol [Mass/Vol] 256 mg/dL High NINF - 200 mg/dL [facility] Cholesterol in HDL [Mass/Vol] 70 mg/dL 54 - PINF mg/dL [facility] Cholesterol in LDL [Mass/Vol] 175 mg/dL High NINF - 111 mg/dL [facility] Cholesterol in LDL/Cholesterol in HDL [Mass ratio] 2.50 {ratio} NINF - 3.57 [facility] Cholesterol non HDL [Mass/Vol] 186 mg/dL High NINF - 130 mg/dL [facility] Cholesterol.total/Chol esterol in HDL [Mass ratio] 3.66 {ratio} NINF - 5.00 [facility] Interpretation and review of laboratory results Abnormal [facility] Triglyceride [Mass/Vol] 86 mg/dL NINF - 151 mg/dL [facility] MANUAL DIFF AND MORPHon Cells Counted Total (Bld) [#] [facility] Microcytes Ql (Bld) Slight [facility] Ovalocytes LM Ql (Bld) Few [facility] RBC.hypochromic/100 RBC Auto (Bld) Slight [facility] Schistocytes LM Ql (Bld) Few [facility] Spherocytes LM Ql (Bld) Few [facility] CELLS COUNTED TOTAL # IN BLOOD Normal [facility] Comment on above: Performed By: #### Daryl LAURENT MDIFF ####S PATHOLOGY [id number] [place], FRAGMENTED RBC Few Normal [facility] Comment on above: Performed By: #### KERI BEASLEY ####[facility] PATH[facility] [id number] [place], HYPOCHROMASIA Slight Normal [facility] Comment on above: Performed By: #### KERI BEASLEY ####[facility] PATH[facility]Y [id number] [place], MICROCYTOSIS Slight Normal [facility] Comment on above: Performed By: #### KERI BEASLEY ####[facility] PATHOLOGY [id number] [place], OVALOCYTES Few Normal [facility] Comment on above: Performed By: #### C KERI LAURENT ####[facility] PATHOLOGY [id number] [place], SPHEROCYTES Few Normal [facility] Comment on above: Performed By: #### C KERI LAURENT ####[facility] PATHOLOGY [id number] [place], No Panel Informationon 03-09 [facility] Progress Noteson 03-09-2023 Manager Rn Case Authentication Interface Message Text Patient identified by name and date of . Blood obtained from arm. Normal [facility] Manager Rn Case Authentication Interface Message Text Date: 03/09/23 Morena Patton 63 year old, female [id number] CHIEF COMPLAINT: Chief Complaint Patient presents with New patient, to establish relationship Medication Management HPI: Morena Patton is a 63 year old female who presents today to establish primary care and to address her problems and fill medications. She had a Cj en Y in 1999. She states that she developed ailments after that surgery. She does not absorb iron. When it is low she will feel tired and fatigued and light headed. She passes out and feels short of breath. She recently developed a aspen macie taste in her mouth. Patient states that she has constant pain and used to be on medication for this as well as medication to help her sleep that she says always helped her. States that she gets cramps and spasms in her feet and legs. Flexeril was for that. Also numbness. She is supposed to get monthly VIT B12 shots but has not been doing that. She passed out about a week ago. She lives in [place] but came here [facility]. She ran out of most of her medications and has not been taking them. She passed out last week and picked up some medications at that time. She is now on a heart monitor. She is due to see a pipeline superintendent when she turns in her monitor. She was in the ED on January 30 for abdominal pain. She was discharged on Carafate. She started taking it on 02/24. She was in pain the entire time up until starting to take it. Her pain is now improved but not resolved. She states that she needs to see a smoking pipe repairer and Neurologist and pipeline superintendent. ED Morena Patton is a 62 year old female with a PMHx of hirschsprung's disease, cj-en-y bypass with known GI bleeds and melena with anastomotic ulcers per chart review presenting to the ED for abdominal pain. Pain is chronic with recent worsening, rated severe, described as excrutiating and hollowing me out, waxes and wanes with worsening about 6 times per day, felt over the LUQ, and does not radiate elsewhere. Pain is worsened with excitement/stress, is not worsened with PO intake. Pain is improved with use of omeprazole, lidocaine patches, and [id number] mg tylenol which she has been taking 4x per day. She has a history of bleeding ulcers and is not anticoagulated. Associated symptoms include nausea, increased salivation, intermittent dark stools though not recently. She endorses worsening of chronic SOB separate from today's complaint, but does describe it as needing to rest after just a couple steps now, and occasoinal fainting spells though not recently CT ABDOM: IMPRESSION: 1. No intramural hematoma or aortic dissection is identified. 2. Enlargement of the ascending aorta measuring up to 4.0 cm, previously 3.9 cm on 09/19/2011. 3. Enlargement of the main pulmonary artery which can be seen in setting of pulmonary hypertension. IMPRESSION: 1. No acute process. 2. Gallstones are suspected. No evidence of acute cholecystitis IMPRESSION Clinical Impression Diagnosis Comment Abdominal pain, unspecified abdominal location [R10.9] Other fatigue [R53.83] Microcytic anemia [D50.9] Calculus of gallbladder without cholecystitis without obstruction [K80.20] Component 12/30/2021 12/31/2021 01/30/2023 WBC 4.4 (L) 4.7 4.3 (L) RBC 4.09 4.17 4.52 Hemoglobin 10.2 (L) 10.5 (L) 10.9 (L) Hematocrit 31.1 (L) 32.1 (L) 34.2 (L) MCV 76 (L) 77 (L) 76 (L) MCH 25.0 (L) 25.3 (L) 24.2 (L) MCHC 32.9 32.8 31.9 (L) Platelet 232 243 296 RDW-CV% 19.2 (H) 19.2 (H) 18.5 (H) MPV 8.2 7.5 7.9 Component 12/28/2021 Ferritin 10.6 . Past Medical History: Diagnosis Date Acute posttraumatic stress disorder : per snapshot Alcohol abuse Anxiety disorder : per snapshot Chronic lower back pain : per snapshot Constipation : per snapshot Depressive disorder, not elsewhere classified Had a few episodes - will follow GERD (gastroesophageal reflux disease) : per snapshot HTN (hypertension) Human papilloma virus infection Mood disorder (HCC) Morbid obesity (HCC) BMI 36 Osteoarthritis of right knee : per snapshot Prediabetes Review of patient's past surgical history indicates: COLPOSCOPY W/CERVICAL BIOPSY AND ECC (05/21/98) mild dysplasia GASTRIC RESTRICTVE PX, W/GASTRIC BYPASS/SHORT * (05/26/00) Shira SECTION (1978) Lost child LAPAROSCOPY (1978) ovarian cystectomy COLONOSCOPY 3 BARIATRIC SURGERY [facility] 1999 ESOPHAGOGASTRODUODENOSCO PY (06/14/2019) Procedure: ESOPHAGOGASTRODUODENOSCO PY; Surgeon: Abdullahi David MD; Location: [facility]; Service: Gastroenterology COLONOSCOPY AND ESOPHAGOGASTRODUODENOSCO PY (12/30/2021) Procedure: ESOPHAGOGASTRODUODENOSCO PY AND COLONOSCOPY; Surgeon: Davon Ha MD; Location: [facility]; Service: Gastroenterology Outpatient Medications Marked as Taking for the 03/09/23 encounter (Office Visit) with Tc (more content not included)... Normal The [facility] Manager Rn Case Authentication Interface Message Text Identification was verified by patient verbalizing her name and date of . Patient at risk for falls:No Falls Risk protocol implemented: No Normal The [facility] VITAMIN B12 (CYANOCOBALAMIN) on 03-09-2023 Cobalamin (Vitamin B12) [Moles/Vol] 375 pg/mL 300 - PINF pg/mL [facility] Interpretation and review of laboratory results Normal [facility] <152 pg/mL - Deficie nt 152 - 300 pg/mL- Insufficient >300 pg/mL - Sufficient [facility] Cobalamin (Vitamin B12) [Mass/Vol] 375 pg/mL Normal >300 [facility] Comment on above: Order Comment: <152 pg/mL - [id number] - 300 pg/mL- Insufficient>300 pg/mL - Sufficient Performed By: #### V ITB12, HDL, CH8, LUCIAN ####[facility] PATHOLOG[facility] [id number] [place], [address] VITAMIN D, 25-HYDROXYon 08-0 25-hydroxyvitamin D IA [Mass/Vol] 62 ng/mL 30 - 100 ng/mL [facility] Interpretation and review of laboratory results Normal [facility] Deficient : <20.0 ng /mL Insufficient : 20.0-29.9 ng/mL Sufficient : 30.0 - 100.0 ng/mL Potential Toxicity : >100.0 ng/mL [facility] Telephone Encounteron 2022 Manager Rn Case Authentication Interface Message Text Patient is calling about medications that were prescribed for her on 01/30/23 from the ER with [facility]. Her pharmacy states did not receive the prescriptions he wrote for. The prescriptions were for the following medications: Sucralafate Suspension Vitamin D- 50,000 unit Daily Multi Vitamin Patient does not have a PCP on file, and a no show for appointments with gastro as well. Please contact the patient to discuss this issue as well as a plan of action. Normal [facility] Absolute lymphocyte countOrd ered By: Virginie Aguillon on 02-16-2023 Lymphocytes Auto (Unsp spec) [#/Vol] 2.12 10*3/uL 0.83-4.51 [facility] Basophil percentageOrdered B y: Virginie Aguillon on 02-16-2023 Basophils/100 WBC (Bld) 0.8 % 0-1 [facility] Chloride [Moles/Vol] 108 mmol/L 98-107 [facility] Eosinophils/100 WBC (Bld) 4.0 % 0-5 [facility] Glucose [Mass/Vol] 91 mg/dL 74-[address] [facility] Neutrophils (Bld) [#/Vol] 0.9 10*3/uL 2.0-7.7 [facility] Neutrophils/100 WBC (Bld) 26.0 % 47-70 [facility] Potassium [Moles/Vol] 4.0 mmol/L 3.5-5.1 [facility] Sodium [Moles/Vol] 138 mmol/L 136-[address] [facility] WBC (Bld) [#/Vol] 3.5 10*3/uL 4.4-11.[address] [facility] Blood erythrocytes count (nu mber/volume)Ordered By: Virginie Aguillon on 02-16-2023 RBC (Bld) [#/Vol] 4.45 10*6/uL 4.2-5.4 [facility] Blood hemoglobin measurement (mass/volume)Ordered By: Virginie Aguillon on 02-16-2023 Hemoglobin (Bld) [Mass/Vol] 10.5 g/dL 12.0-15.0 [facility] Blood lymphocytes/100 leukoc ytesOrdered By: Virginie Aguillon on 02-16-2023 Lymphocytes/100 WBC (Bld) 60.1 % 19-41 [facility] Blood manual differential co mment interpretation (narrative result)Ordered By: Virginie Aguillon on 02-16-2023 Manual differential comment Ryan (Bld) [Interp] SCANNED [facility] Comment on above: NEUTROPENIA Blood monocytes/100 leukocyt esOrdered By: Virginie Aguillon on 02-16-2023 Monocytes/100 WBC (Bld) 8.8 % 0-10 [facility] Blood platelet mean volumeOr dered By: Virginie Aguillon on 02-16-2023 Platelet mean volume (Bld) [Entitic vol] 10.1 fL 6.2-12.0 [facility] Determination of erythrocyte mean corpuscular volume (MCV)Ordered By: Virginie Aguillon on 02-16-2023 MCV (RBC) [Entitic vol] 79.1 fL 81-99 [facility] Hematocrit Auto (Bld) [Volum e fraction]Ordered By: Virginie Aguillon on 02-16-2023 Hematocrit (Bld) [Volume fraction] 35.2 % 37-47 [facility] Laboratory - Chemistry and C hemistry - challengeOrdered By: Virginie Aguillon on 02-16-2023 CO2 [Moles/Vol] 25.0 mmol/L 21.0-32.0 [facility] Urea nitrogen/Creatinine [Mass ratio] 8.9 mg/mg 10-20 [facility] Laboratory - Hematology and Cell countsOrdered By: Virginie Aguillon on 02-16-2023 Erythrocyte distribution width (RBC) [Entitic vol] 52.3 fL 35.1-43.9 [facility] Erythrocyte distribution width (RBC) [Ratio] 18.6 % 11.6-14.6 [facility] Immature granulocytes/100 WBC (Bld) 0.300 % 0.0-0.9 [facility] Comment on above: IG% - Immature Granu locytes (promyelocytes, myelocytes and metamyelocytes) > 1% indicates that a LEFT SHIFT is Present. MCH (RBC) [Entitic mass] 23.6 pg 27.0-32.0 [facility] Nucleated RBC/100 WBC (Bld) [Ratio] 0 % 0-5 [facility] MCHC Auto (RBC) [Mass/Vol]Or dered By: Virginie Aguillon on 02-16-2023 MCHC (RBC) [Mass/Vol] 29.8 g/dL 32-36 [facility] Comment on above: Delta: 31.7 on 02/15-0600 No Panel InformationOrdered By: Virginie Aguillon on 02-16-2023 Estimated Creatinine Clearance Calc 48.13 ml/min [facility] Estimated GFR (MDRD) Amer 63 mL/min >60 [facility] Comment on above: GFR Calc Estimated GFR (MDRD) Non-Af Amer 52 mL/min >60 [facility] Comment on above: Non- GFR Calc Platelets bldOrdered By: Lucero Aguillon on 02-16-2023 Platelets (Bld) [#/Vol] 206 10*3/uL 150-450 [facility] Serum or plasma calcium angela urement (mass/volume)Ordered By: Virginie Aguillon on 02-16-2023 Calcium [Mass/Vol] 9.1 mg/dL 8.5-10.[address] [facility] Serum or plasma creatinine m easurement (mass/volume)Ordered By: Virginie Aguillon on 02-16-2023 Creatinine [Mass/Vol] 1.12 mg/dL 0.55-1.02 [facility] Comment on above: The validity of the calculated GFR & GFRAA in patients over 70 years has not been determined. Clinical correlation is essential. Serum or plasma urea nitroge n measurement (mass/volume)Ordered By: Virginie Aguillon on 02-16-2023 Urea nitrogen [Mass/Vol] 10 mg/dL 02-16 [facility] Thin prep Papanicolaou smear with manual screeningOrdered By: Virginie Aguillon on 02-16-2023 Thin prep Papanicolaou smear with manual screening 5 5-15 [facility] Basophil percentageOrdered B y: Drew Solis on 02-15-2023 Basophil percentage 3.6 mg/dL 2.5-4.9 [facility] Bilirubin [Mass/Vol] 0.20 mg/dL 0.20-1.00 [facility] Comment on above: For patients on eltr ombopag therapy, use of Dimension Hext TBIL is not recommended. Cholesterol [Mass/Vol] 196 mg/dL <200 [facility] Comment on above: <200 mg/dL Desirable 200-240 mg/dL Borderline >240 mg/dL High Risk Protein [Mass/Vol] 6.1 g/dL 6.4-8.[address] [facility] Triglyceride [Mass/Vol] 141 mg/dL <199 [facility] Comment on above: The drugs N-Acetylcy steine and Metamizole may falsely depress this assay.Serum Triglycerides Reference Interval Normal <150 mg/dL Borderline high 150 - 199 mg/dL High 200 - 499 mg/dL Very High > or = 500 mg/dL Laboratory - Chemistry and C hemistry - challengeOrdered By: Drew Solis on 02-15-2023 ALP [Catalytic activity/Vol] 81 U/L 45-117 [facility] ALT [Catalytic activity/Vol] 15 U/L 13-56 [facility] Globulin (S) [Mass/Vol] 3.4 g/dL 2.2-4.2 [facility] Magnesium [Mass/Vol] 2.3 mg/dL 1.6-2.6 [facility] No Panel InformationOrdered By: Drew Solis on 02-15-2023 Thyroid Stimulating Hormone (TSH) 1.25 uIU/mL 0.358-3.74 [facility] Serum or plasma albumin angela urement (mass/volume)Ordered By: Drew Solis on 02-15-2023 Albumin [Mass/Vol] 2.7 g/dL 3.2-5.[address] [facility] Serum or plasma albumin/glob ulin mass ratioOrdered By: Drew Solis on 02-15-2023 Albumin/Globulin [Mass ratio] 0.8 {ratio} 0.9-2.4 [facility] Serum or plasma cholesterol in HDL measurement (mass/volume)Ordered By: Drew Solis on 02-15-2023 Cholesterol in HDL [Mass/Vol] 92 mg/dL >40 [facility] Comment on above: The drugs N-Acetylcy steine and Metamizole may falsely depress this assay. Reference Range HDL <40 mg/dL Low HDL Cholesterol HDL >or= 60 mg/dL High HDL Cholesterol Serum or plasma cholesterol in VLDL measurement (mass/volume)Ordered By: Drew Solis on 02-15-2023 Cholesterol in VLDL [Mass/Vol] 28 mg/dL 5-40 [facility] Serum or plasma low density lipoprotein (LDL) cholesterol measurement (mass/volume)Ordered By: Drew Solis on 02-15-2023 Cholesterol in LDL [Mass/Vol] 76 mg/dL 0-130 [facility] Thin prep Papanicolaou smear with manual screeningOrdered By: Drew Solis on 02-15-2023 Thin prep Papanicolaou smear with manual screening 19 U/L 15-37 [facility] Iron measurement (mass/mass) Ordered By: Drew Solis on 02-14-2023 Iron (Unsp spec) [Mass/Mass] 23 ug/dL 50-170 [facility] Laboratory - Chemistry and C hemistry - challengeOrdered By: Jeniffer Campos on 02-14-2023 Cobalamin (Vitamin B12) [Mass/Vol] 199 pg/mL 211-911 [facility] No Panel InformationOrdered By: Drew Solis on 02-14-2023 Total Iron Binding Capacity 375 ug/dL 250-450 [facility] No Panel InformationOrdered By: Jeniffer Campos on 02-14-2023 Troponin I High Sensitivity 27 pg/mL 3.0-54.0 [facility] Comment on above: Please Note: New Sary t Units and Gender Specific Reference Ranges. For more information see Policy Stat Procedure Hext High Sensitivity Troponin (TNIH) and attachments. Serum or plasma ferritin cortney surement (mass/volume)Ordered By: Drew Solis on 02-14-2023 Ferritin [Mass/Vol] 9 ng/mL 8-252 [facility] Serum or plasma folate measu rement (mass/volume)Ordered By: Jeniffer Campos on 02-14-2023 Folate [Mass/Vol] 7.40 ng/mL 3.1-55.4 [facility] Serum or plasma iron saturat ion measurement (mass fraction)Ordered By: Drew Solis on 02-14-2023 Iron saturation [Mass fraction] 6.1 % 15.0-55.0 [facility] Absolute lymphocyte countOrd ered By: Albert Carbone on 02-13-2023 Lymphocytes Auto (Unsp spec) [#/Vol] 1.92 10*3/uL 0.83-4.51 [facility] Basophil percentageOrdered B y: Albert Carbone on 02-13-2023 Potassium [Moles/Vol] 4.1 mmol/L 3.5-5.1 [facility] Basophils/100 WBC (Bld) 0.7 % 0-1 [facility] Chloride [Moles/Vol] 106 mmol/L 98-107 [facility] Eosinophils/100 WBC (Bld) 1.9 % 0-5 [facility] Glucose [Mass/Vol] 99 mg/dL 74-[address] [facility] Neutrophils (Bld) [#/Vol] 1.7 10*3/uL 2.0-7.7 [facility] Neutrophils/100 WBC (Bld) 39.8 % 47-70 [facility] Sodium [Moles/Vol] 136 mmol/L 136-[address] [facility] WBC (Bld) [#/Vol] 4.2 10*3/uL 4.4-11.[address] [facility] Blood erythrocytes count (nu mber/volume)Ordered By: Albert Carbone on 02-13-2023 RBC (Bld) [#/Vol] 5.13 10*6/uL 4.2-5.4 [facility] Blood hemoglobin measurement (mass/volume)Ordered By: Albert Carbone on 02-13-2023 Hemoglobin (Bld) [Mass/Vol] 12.2 g/dL 12.0-15.0 [facility] Blood lymphocytes/100 leukoc ytesOrdered By: Albert Carbone on 02-13-2023 Lymphocytes/100 WBC (Bld) 46.3 % 19-41 [facility] Blood monocytes/100 leukocyt esOrdered By: Albert Carbone on 02-13-2023 Monocytes/100 WBC (Bld) 10.8 % 0-10 [facility] Blood platelet mean volumeOr dered By: Albert Carbone on 02-13-2023 Platelet mean volume (Bld) [Entitic vol] 9.8 fL 6.2-12.0 [facility] Determination of erythrocyte mean corpuscular volume (MCV)Ordered By: Albert Carbone on 02-13-2023 MCV (RBC) [Entitic vol] 75.8 fL 81-99 [facility] Hematocrit Auto (Bld) [Volum e fraction]Ordered By: Albert Carbone on 02-13-2023 Hematocrit (Bld) [Volume fraction] 38.9 % 37-47 [facility] Laboratory - Chemistry and C hemistry - challengeOrdered By: Jeniffer Campos on 02-13-2023 Magnesium [Mass/Vol] 2.0 mg/dL 1.6-2.6 [facility] Laboratory - Chemistry and C hemistry - challengeOrdered By: Albert Carbone on 02-13-2023 CO2 [Moles/Vol] 23.0 mmol/L 21.0-32.0 [facility] Urea nitrogen/Creatinine [Mass ratio] 11.3 mg/mg 10-20 [facility] Laboratory - Drug toxicology Ordered By: Jeniffer Campos on 02-13-2023 Amphetamines Ql (U) Negative <1000 ng/mL [facility] Benzodiazepines Ql (U) Negative < 200 ng/mL [facility] Cannabinoids Screen Ql (U) Positive < 50 ng/mL [facility] Cocaine Ql (U) Negative < 300 ng/mL [facility] Opiates Ql (U) Negative < 300 ng/mL [facility] Laboratory - Hematology and Cell countsOrdered By: Albert Carbone on 02-13-2023 Erythrocyte distribution width (RBC) [Entitic vol] 47.8 fL 35.1-43.9 [facility] Erythrocyte distribution width (RBC) [Ratio] 18.0 % 11.6-14.6 [facility] Immature granulocytes/100 WBC (Bld) 0.500 % 0.0-0.9 [facility] Comment on above: IG% - Immature Granu locytes (promyelocytes, myelocytes and metamyelocytes) > 1% indicates that a LEFT SHIFT is Present. MCH (RBC) [Entitic mass] 23.8 pg 27.0-32.0 [facility] Nucleated RBC/100 WBC (Bld) [Ratio] 0 % 0-5 [facility] MCHC Auto (RBC) [Mass/Vol]Or dered By: Albert Carbone on 02-13-2023 MCHC (RBC) [Mass/Vol] 31.4 g/dL 32-36 [facility] No Panel InformationOrdered By: Jeniffer Campos on 02-13-2023 Ethyl Alcohol Level < 3.0 mg/dL [facility] Comment on above: The serum:whole bloo d ethanol ratio is approximately 1.14and varies slightly with hematocrit. Medical Alcohol reference interval and critical value innon-tolerant individuals; 50 - 100 Impairment 100 Intoxication 100 - 250 Severe Poisoning 250 - 400 Deep/possible fatal coma MDMA (Ecstasy) Screen Negative < 500 ng/mL [facility] Urine Barbiturates Screen Negative < 200 ng/mL [facility] Urine Drug Screen Comment [facility] Comment on above: CONFIRMATORY TESTING FOR ALL POSITIVE URINE DRUG SCREENRESULTS WILL ONLY BE SENT OUT UPON PHYSICIAN ORDER. VISTA Urine Drug Screen methods provide only preliminaryanalytical test results. A more specific alternate chemicalmethod must be used in order to obtain a confirmedanalytical result. Gas chromatography/mass spectrometery(GC/MS) is the preferred confirmatory method. Clinicalconsideration and professional judgement should be appliedto any drug of abuse test result, particularly whenpreliminary positive results are used. URINE TCA TESTING MUST BE ORDERED SEPARATELY. USE TESTMNEMONIC: [facility] Urine Methadone Screen Negative < 300 ng/mL [facility] No Panel InformationOrdered By: Albert Carbone on 02-13-2023 Estimated Creatinine Clearance Calc 50.85 ml/min [facility] Estimated GFR (MDRD) Amer 67 mL/min >60 [facility] Comment on above: GFR Calc Estimated GFR (MDRD) Non-Af Amer 56 mL/min >60 [facility] Comment on above: Non- GFR Calc Troponin I High Sensitivity 26 pg/mL 3.0-54.0 [facility] Comment on above: Please Note: New Sary t Units and Gender Specific Reference Ranges. For more information see Policy Stat Procedure Hext High Sensitivity Troponin (TNIH) and attachments. Platelets bldOrdered By: Didier Carbone on 02-13-2023 Platelets (Bld) [#/Vol] 237 10*3/uL 150-450 [facility] Serum or plasma calcium angela urement (mass/volume)Ordered By: Albert Carbone on 02-13-2023 Calcium [Mass/Vol] 9.3 mg/dL 8.5-10.[address] [facility] Serum or plasma creatinine m easurement (mass/volume)Ordered By: Albert Carbone on 02-13-2023 Creatinine [Mass/Vol] 1.06 mg/dL 0.55-1.02 [facility] Comment on above: The validity of the calculated GFR & GFRAA in patients over 70 years has not been determined. Clinical correlation is essential. Serum or plasma urea nitroge n measurement (mass/volume)Ordered By: Albert Carbone on 02-13-2023 Urea nitrogen [Mass/Vol] 12 mg/dL 7-18 [facility] Thin prep Papanicolaou smear with manual screeningOrdered By: Albert Carbone on 02-13-2023 Thin prep Papanicolaou smear with manual screening 7 12-14 [facility] Urine phencyclidine (PCP) de tectionOrdered By: Jeniffer Campos on 02-13-2023 Phencyclidine Ql (U) Negative < 25 ng/mL [facility] Absolute lymphocyte countOrd ered By: Dr. Tom on 10-22-2022 Lymphocytes Auto (Unsp spec) [#/Vol] 2.07 10*3/uL 0.83-4.51 [facility] Basophil percentageOrdered B y: Dr. Tom on 10-22-2022 Basophil percentage 0-5 SEEN /hpf 0-5 [facility] Basophils/100 WBC (Bld) 0.6 % 0-1 [facility] Bilirubin [Mass/Vol] 0.30 mg/dL 0.20-1.00 [facility] Comment on above: For patients on eltr ombopag therapy, use of Dimension Hext TBIL is not recommended. Chloride [Moles/Vol] 109 mmol/L 98-107 [facility] Eosinophils/100 WBC (Bld) 2.5 % 0-5 [facility] Glucose [Mass/Vol] 106 mg/dL 74-[address] [facility] Comment on above: Fasting Glucose resu lt from 100 to 125 mg/dL suggests IMPAIRED HOMEOSTASIS per A.D.A. criteria. Neutrophils (Bld) [#/Vol] 2.2 10*3/uL 2.0-7.7 [facility] Neutrophils/100 WBC (Bld) 45.8 % 47-70 [facility] Potassium [Moles/Vol] 3.8 mmol/L 3.5-5.1 [facility] Protein [Mass/Vol] 7.0 g/dL 6.4-8.[address] [facility] Sodium [Moles/Vol] 139 mmol/L 136-[address] [facility] WBC (Bld) [#/Vol] 4.8 10*3/uL 4.4-11.[address] [facility] Bilirubin Test strip Ql (U)O rdered By: Dr. Tom on 10-22-2022 Bilirubin Ql (U) Negative Negative [facility] Blood erythrocytes count (nu mber/volume)Ordered By: Dr. Tom on 10-22-2022 RBC (Bld) [#/Vol] 4.84 10*6/uL 4.2-5.4 [facility] Blood hemoglobin measurement (mass/volume)Ordered By: Dr. Tom on 10-22-2022 Hemoglobin (Bld) [Mass/Vol] 12.2 g/dL 12.0-15.0 [facility] Blood lymphocytes/100 leukoc ytesOrdered By: Dr. Tom on 10-22-2022 Lymphocytes/100 WBC (Bld) 43.4 % 19-41 [facility] Blood monocytes/100 leukocyt esOrdered By: Dr. Tom on 10-22-2022 Monocytes/100 WBC (Bld) 7.5 % 0-10 [facility] Blood platelet mean volumeOr dered By: Dr. Tom on 10-22-2022 Platelet mean volume (Bld) [Entitic vol] 9.1 fL 6.2-12.0 [facility] Determination of erythrocyte mean corpuscular volume (MCV)Ordered By: Dr. Tom on 10-22-2022 MCV (RBC) [Entitic vol] 77.9 fL 81-99 [facility] Hematocrit Auto (Bld) [Volum e fraction]Ordered By: Dr. Tom on 10-22-2022 Hematocrit (Bld) [Volume fraction] 37.7 % 37-47 [facility] Ketones Test strip Ql (U)Ord ered By: Dr. Tom on 10-22-2022 Ketones Ql (U) Negative Negative [facility] Laboratory - Chemistry and C hemistry - challengeOrdered By: Dr. Tom on 10-22-2022 ALP [Catalytic activity/Vol] 95 U/L 45-117 [facility] ALT [Catalytic activity/Vol] 15 U/L 13-56 [facility] CO2 [Moles/Vol] 22.0 mmol/L 21.0-32.0 [facility] Globulin (S) [Mass/Vol] 3.4 g/dL 2.2-4.2 [facility] Lipase [Catalytic activity/Vol] 182 U/L 73-393 [facility] Urea nitrogen/Creatinine [Mass ratio] 15.2 mg/mg 10-20 [facility] Laboratory - Hematology and Cell countsOrdered By: Dr. Tom on 10-22-2022 Erythrocyte distribution width (RBC) [Entitic vol] 47.2 fL 35.1-43.9 [facility] Erythrocyte distribution width (RBC) [Ratio] 17.1 % 11.6-14.6 [facility] Immature granulocytes/100 WBC (Bld) 0.200 % 0.0-0.9 [facility] Comment on above: IG% - Immature Granu locytes (promyelocytes, myelocytes and metamyelocytes) > 1% indicates that a LEFT SHIFT is Present. MCH (RBC) [Entitic mass] 25.2 pg 27.0-32.0 [facility] Nucleated RBC/100 WBC (Bld) [Ratio] 0 % 0-5 [facility] MCHC Auto (RBC) [Mass/Vol]Or dered By: Dr. Tom on 10-22-2022 MCHC (RBC) [Mass/Vol] 32.4 g/dL 32-36 [facility] Mucus LM Ql (Urine sed)Order ed By: Dr. Tom on 10-22-2022 Mucus Ql (Urine sed) 0 SEEN /hpf [facility] Nitrite Test strip Ql (U)Ord ered By: Dr. Tom on 10-22-2022 Nitrite Ql (U) Negative Negative [facility] No Panel InformationOrdered By: Dr. Tom on 10-22-2022 Estimated Creatinine Clearance Calc 55.16 ml/min [facility] Estimated GFR (MDRD) Amer 73 mL/min >60 [facility] Comment on above: GFR Calc Estimated GFR (MDRD) Non-Af Amer 61 mL/min >60 [facility] Comment on above: Non- GFR Calc Troponin I High Sensitivity 27 pg/mL 3.0-54.0 [facility] Comment on above: Please Note: New Sary t Units and Gender Specific Reference Ranges. For more information see Policy Stat Procedure Hext High Sensitivity Troponin (TNIH) and attachments. Platelets bldOrdered By: Dr. Tom on 10-22-2022 Platelets (Bld) [#/Vol] 276 10*3/uL 150-450 [facility] Protein Test strip Ql (U)Ord ered By: Dr. Tom on 10-22-2022 Protein Ql (U) 30 mg/dl Negative [facility] Serum or plasma albumin angela urement (mass/volume)Ordered By: Dr. Tom on 10-22-2022 Albumin [Mass/Vol] 3.6 g/dL 3.2-5.[address] [facility] Serum or plasma albumin/glob ulin mass ratioOrdered By: Dr. Tom on 10-22-2022 Albumin/Globulin [Mass ratio] 1.1 {ratio} 0.9-2.4 [facility] Serum or plasma calcium angela urement (mass/volume)Ordered By: Dr. Tom on 10-22-2022 Calcium [Mass/Vol] 9.3 mg/dL 8.5-10.[address] [facility] Serum or plasma creatinine m easurement (mass/volume)Ordered By: Dr. Tom on 10-22-2022 Creatinine [Mass/Vol] 0.99 mg/dL 0.55-1.02 [facility] Comment on above: The validity of the calculated GFR & GFRAA in patients over 70 years has not been determined. Clinical correlation is essential. Serum or plasma urea nitroge n measurement (mass/volume)Ordered By: Dr. Tom on 10-22-2022 Urea nitrogen [Mass/Vol] 15 mg/dL 7-18 [facility] Squamous epithelial cells de tection in urine sediment by light microscopyOrdered By: Dr. Tom on 10-22-2022 Epithelial cells.squamous LM Ql (Urine sed) 0-5 SEEN /hpf 5-10 [facility] Thin prep Papanicolaou smear with manual screeningOrdered By: Dr. Tom on 10-22-2022 Thin prep Papanicolaou smear with manual screening 16 U/L 15-37 [facility] Thin prep Papanicolaou smear with manual screening 8 5-15 [facility] Urine blood detectionOrdered By: Dr. Tom on 10-22-2022 RBC Ql (U) 150 /ul Negative [facility] RBC Ql (U) 0 SEEN /hpf 0-5 [facility] Urine clarityOrdered By: Dr. Tom on 10-22-2022 Clarity (U) Clear Clear [facility] Urine color determinationOrd ered By: Dr. Tom on 10-22-2022 Color (U) YELLOW Yellow [facility] Urine glucose detectionOrder ed By: Dr. Tom on 10-22-2022 Glucose Ql (U) Normal mg/dl Normal [facility] Urine leukocyte esterase det ection by dipstickOrdered By: Dr. Tom on 10-22-2022 Leukocyte esterase Test strip Ql (U) 500 /ul Negative [facility] Urine pHOrdered By: Dr. Porfirio li on 10-22-2022 pH (U) 7.0 [pH] 5.0 - 8.0 [facility] Urine sediment bacteria coun t by microscopy (number/high power field)Ordered By: Dr. Tom on 10-22-2022 Bacteria LM.HPF (Urine sed) [#/Area] 0 /[HPF] None Seen [facility] Urine specific gravity measu rementOrdered By: Dr. Tom on 10-22-2022 Specific gravity (U) [Rel density] 1.015 1.002-1.030 [facility] Urobilinogen Auto test strip Ql (U)Ordered By: Dr. Tom on 10-22-2022 Urobilinogen Ql (U) Normal mg/dl Normal [facility] Absolute lymphocyte countOrd ered By: Dr. Houston on 07-07-2022 Lymphocytes Auto (Unsp spec) [#/Vol] 2.12 10*3/uL 0.83-4.51 [facility] Basophil percentageOrdered B y: Dr. Houston on 07-07-2022 Basophils/100 WBC (Bld) 0.6 % 0-1 [facility] Bilirubin [Mass/Vol] 0.40 mg/dL 0.20-1.00 [facility] Comment on above: For patients on eltr ombopag therapy, use of Dimension Hext TBIL is not recommended. Chloride [Moles/Vol] 101 mmol/L 98-107 [facility] Eosinophils/100 WBC (Bld) 1.5 % 0-5 [facility] Glucose [Mass/Vol] 100 mg/dL 74-[address] [facility] Comment on above: Fasting Glucose resu lt from 100 to 125 mg/dL suggests IMPAIRED HOMEOSTASIS per A.D.A. criteria. Neutrophils (Bld) [#/Vol] 2.2 10*3/uL 2.0-7.7 [facility] Neutrophils/100 WBC (Bld) 45.8 % 47-70 [facility] Potassium [Moles/Vol] 3.9 mmol/L 3.5-5.1 [facility] Protein [Mass/Vol] 7.0 g/dL 6.4-8.[address] [facility] Sodium [Moles/Vol] 134 mmol/L 136-[address] [facility] WBC (Bld) [#/Vol] 4.7 10*3/uL 4.4-11.[address] [facility] Blood erythrocytes count (nu mber/volume)Ordered By: Dr. Houston on 07-07-2022 RBC (Bld) [#/Vol] 4.94 10*6/uL 4.2-5.4 [facility] Blood hemoglobin measurement (mass/volume)Ordered By: Dr. Houston on 07-07-2022 Hemoglobin (Bld) [Mass/Vol] 13.1 g/dL 12.0-15.0 [facility] Blood lymphocytes/100 leukoc ytesOrdered By: Dr. Houston on 07-07-2022 Lymphocytes/100 WBC (Bld) 44.9 % 19-41 [facility] Blood monocytes/100 leukocyt esOrdered By: Dr. Houston on 07-07-2022 Monocytes/100 WBC (Bld) 7.0 % 0-10 [facility] Blood platelet mean volumeOr dered By: Dr. Houston on 07-07-2022 Platelet mean volume (Bld) [Entitic vol] 8.9 fL 6.2-12.0 [facility] Determination of erythrocyte mean corpuscular volume (MCV)Ordered By: Dr. Houston on 07-07-2022 MCV (RBC) [Entitic vol] 80.8 fL 81-99 [facility] Hematocrit Auto (Bld) [Volum e fraction]Ordered By: Dr. Houston on 07-07-2022 Hematocrit (Bld) [Volume fraction] 39.9 % 37-47 [facility] Laboratory - Chemistry and C hemistry - challengeOrdered By: Dr. Houston on 07-07-2022 ALP [Catalytic activity/Vol] 92 U/L 45-117 [facility] ALT [Catalytic activity/Vol] 16 U/L 13-56 [facility] CO2 [Moles/Vol] 24.0 mmol/L 21.0-32.0 [facility] Globulin (S) [Mass/Vol] 3.7 g/dL 2.2-4.2 [facility] Urea nitrogen/Creatinine [Mass ratio] 15.9 mg/mg 10-20 [facility] Laboratory - Hematology and Cell countsOrdered By: Dr. Houston on 07-07-2022 Erythrocyte distribution width (RBC) [Entitic vol] 50.6 fL 35.1-43.9 [facility] Erythrocyte distribution width (RBC) [Ratio] 17.2 % 11.6-14.6 [facility] Immature granulocytes/100 WBC (Bld) 0.200 % 0.0-0.9 [facility] Comment on above: IG% - Immature Granu locytes (promyelocytes, myelocytes and metamyelocytes) > 1% indicates that a LEFT SHIFT is Present. MCH (RBC) [Entitic mass] 26.5 pg 27.0-32.0 [facility] Nucleated RBC/100 WBC (Bld) [Ratio] 0 % 0-5 [facility] MCHC Auto (RBC) [Mass/Vol]Or dered By: Dr. Houston on 07-07-2022 MCHC (RBC) [Mass/Vol] 32.8 g/dL 32-36 [facility] No Panel InformationOrdered By: Dr. Houston on 07-07-2022 Estimated Creatinine Clearance Calc 48.32 ml/min [facility] Estimated GFR (MDRD) Amer 63 mL/min >60 [facility] Comment on above: GFR Calc Estimated GFR (MDRD) Non-Af Amer 52 mL/min >60 [facility] Comment on above: Non- GFR Calc Troponin I High Sensitivity 29 pg/mL 3.0-54.0 [facility] Comment on above: Please Note: New Sary t Units and Gender Specific Reference Ranges. For more information see Policy Stat Procedure Hext High Sensitivity Troponin (TNIH) and attachments. Platelets bldOrdered By: Dr. Houston on 07-07-2022 Platelets (Bld) [#/Vol] 282 10*3/uL 150-450 [facility] Serum or plasma albumin angela urement (mass/volume)Ordered By: Dr. Houston on 07-07-2022 Albumin [Mass/Vol] 3.3 g/dL 3.2-5.[address] [facility] Serum or plasma albumin/glob ulin mass ratioOrdered By: Dr. Houston on 07-07-2022 Albumin/Globulin [Mass ratio] 0.9 {ratio} 0.9-2.4 [facility] Serum or plasma calcium angela urement (mass/volume)Ordered By: Dr. Houston on 07-07-2022 Calcium [Mass/Vol] 9.5 mg/dL 8.5-10.[address] [facility] Serum or plasma creatinine m easurement (mass/volume)Ordered By: Dr. Houston on 07-07-2022 Creatinine [Mass/Vol] 1.13 mg/dL 0.55-1.02 [facility] Comment on above: The validity of the calculated GFR & GFRAA in patients over 70 years has not been determined. Clinical correlation is essential. Serum or plasma urea nitroge n measurement (mass/volume)Ordered By: Dr. Houston on 07-07-2022 Urea nitrogen [Mass/Vol] 18 mg/dL 7-18 [facility] Thin prep Papanicolaou smear with manual screeningOrdered By: Dr. Houston on 07-07-2022 Thin prep Papanicolaou smear with manual screening 17 U/L 15-37 [facility] Thin prep Papanicolaou smear with manual screening 9 5-15 [facility] Basic metabolic 2000 panelon 01-01-2022 Anion gap [Moles/Vol] 10 mmol/L [facility] Calcium [Mass/Vol] 8.9 mg/dL 8.4 - 10. 4 mg/dL [facility] Chloride [Moles/Vol] 110 mmol/L 97 - 11 1 mmol/L [facility] CO2 [Moles/Vol] 22 mmol/L 21 - 30 mmol/L [facility] Creatinine [Mass/Vol] 0.90 mg/dL 0.50 - 1.10 mg/dL [facility] GFR/1.73 sq M.predicted MDRD (S/P/Bld) [Vol rate/Area] 73 mL/min/{1.73_m2} >=60 mL/min/1.73s qm [facility] Comment on above: 2020 CKD EPI Equatio n using Creatinine without Race Comment: Estimated glomerular filtration rate (eGFR) is calculated without a race coefficient. Values should be interpreted in the context of the patient's full clinical presentation. Reference: 1. Chas C, Babindu M, Anastasia DC, et al.. A Unifying Approach for GFR Estimation: Recommendations of the NKF-ASN Task Force on Reassessing the Inclusion of Race in Diagnosing Kidney Disease. [place] Journal of Kidney Diseases 202;79(2):268-88.e1. 2. N Engl J Med 2020 Vol. 385 Issue 19 Pages 5479-3285 Glucose [Mass/Vol] 98 mg/dL 80 - 116 mg/dL [facility] Interpretation and review of laboratory results Abnormal [facility] Potassium [Moles/Vol] 4.2 mmol/L 3.3 - 5.3 mmol/L [facility] Sodium [Moles/Vol] 138 mmol/L 135 - 148 mmol/L [facility] Urea nitrogen [Mass/Vol] 4 mg/dL Low 8 - 22 mg/dL [facility] LAVENDER TOP TUBE, BLOODon 0 01-01-2022 Extra Tube Done [facility] MAGNESIUMon 01-01-2022 Interpretation and review of laboratory results Normal [facility] Magnesium [Mass/Vol] 2.0 mg/dL 1.6 - 2 .8 mg/dL [facility] Basic metabolic 2000 panelon 12-31-2021 Anion gap [Moles/Vol] 12 mmol/L [facility] Calcium [Mass/Vol] 9.3 mg/dL 8.4 - 10. 4 mg/dL [facility] Chloride [Moles/Vol] 110 mmol/L 97 - 11 1 mmol/L [facility] CO2 [Moles/Vol] 20 mmol/L Low 21 - 30 mmol/L [facility] Creatinine [Mass/Vol] 0.96 mg/dL 0.50 - 1.10 mg/dL [facility] GFR/1.73 sq M.predicted MDRD (S/P/Bld) [Vol rate/Area] 67 mL/min/{1.73_m2} >=60 mL/min/1.73s qm [facility] Comment on above: 2020 CKD EPI Equatio n using Creatinine without Race Comment: Estimated glomerular filtration rate (eGFR) is calculated without a race coefficient. Values should be interpreted in the context of the patient's full clinical presentation. Reference: 1. Chas C, Vic M, Anastasia MIN, et al.. A Unifying Approach for GFR Estimation: Recommendations of the NKF-ASN Task Force on Reassessing the Inclusion of Race in Diagnosing Kidney Disease. [place] Journal of Kidney Diseases 202;79(2):268-88.e1. 2. N Engl J Med 2020 Vol. 385 Issue 19 Pages 4092-4810 Glucose [Mass/Vol] 115 mg/dL 80 - 116 mg/dL [facility] Interpretation and review of laboratory results Abnormal [facility] Potassium [Moles/Vol] 3.9 mmol/L 3.3 - 5.3 mmol/L [facility] Sodium [Moles/Vol] 138 mmol/L 135 - 148 mmol/L [facility] Urea nitrogen [Mass/Vol] 3 mg/dL Low 8 - 22 mg/dL [facility] CBC WITH DIFFERENTIALOrdered By: Анна Kwan on 12-31-2021 Basophils (Bld) [#/Vol] 0.02 10*3/uL 0.00 - 0.20 K/uL [facility] Basophils/100 WBC (Bld) 0.3 % <=1.9 [facility] Eosinophils (Bld) [#/Vol] 0.08 10*3/uL 0.00 - 0.70 K/uL [facility] Eosinophils/100 WBC (Bld) 1.6 % 0.1 - 4.0 % [facility] Erythrocyte distribution width (RBC) [Ratio] 19.2 % High 11.5 - 14.5 % [facility] Hematocrit (Bld) [Volume fraction] 32.1 % Low 36.0 - 46.0 % [facility] Hemoglobin (Bld) [Mass/Vol] 10.5 g/dL Low 12.0 - 15.0 g/dL [facility] Interpretation and review of laboratory results Abnormal [facility] Lymphocytes (Bld) [#/Vol] 1.78 10*3/uL 1.00 - 4.80 K/uL [facility] Lymphocytes/100 WBC (Bld) 38.0 % 24.0 - 44.0 % [facility] MCH (RBC) [Entitic mass] 25.3 pg Low 26.0 - 34.0 pg [facility] MCHC (RBC) [Mass/Vol] 32.8 g/dL 32.0 - 35.9 g/dL [facility] MCV (RBC) [Entitic vol] 77 fL Low 80 - 100 fL [facility] Monocyte distribution width Auto (Bld) [Entitic vol] [facility] Monocytes (Bld) [#/Vol] 0.32 10*3/uL 0.20 - 1.00 K/uL [facility] Monocytes/100 WBC (Bld) 6.8 % 2.0 - 11.0 % [facility] Neutrophils (Bld) [#/Vol] 2.49 10*3/uL 1.50 - 8.00 K/uL [facility] Neutrophils/100 WBC (Bld) 53.3 % 31.0 - 76.0 % [facility] Platelet mean volume (Bld) [Entitic vol] 7.5 fL 7.5 - 11.2 fL [facility] Platelets (Bld) [#/Vol] 243 10*3/uL 150 - 400 K/uL [facility] RBC (Bld) [#/Vol] 4.17 10*6/uL [facility] WBC (Bld) [#/Vol] 4.7 10*3/uL 4.5 - 11.5 K/uL [facility] MAGNESIUMon 12-31-2021 Interpretation and review of laboratory results Normal [facility] Magnesium [Mass/Vol] 1.9 mg/dL 1.6 - 2 .8 mg/dL [facility] MANUAL DIFF AND MORPHon Cells Counted Total (Bld) [#] [facility] Microcytes Ql (Bld) Slight [facility] Ovalocytes LM Ql (Bld) Few [facility] RBC.hypochromic/100 RBC Auto (Bld) Slight [facility] Schistocytes LM Ql (Bld) Few [facility] Target cells LM Ql (Bld) Few [facility] No Panel InformationOrdered By: Анна Kwan on 12-31-2021 [facility] Basic metabolic 2000 panelon 12-30-2021 Anion gap [Moles/Vol] 14 mmol/L [facility] Calcium [Mass/Vol] 9.5 mg/dL 8.4 - 10. 4 mg/dL [facility] Chloride [Moles/Vol] 107 mmol/L 97 - 11 1 mmol/L [facility] CO2 [Moles/Vol] 21 mmol/L 21 - 30 mmol/L [facility] Creatinine [Mass/Vol] 0.85 mg/dL 0.50 - 1.10 mg/dL [facility] GFR/1.73 sq M.predicted MDRD (S/P/Bld) [Vol rate/Area] 78 mL/min/{1.73_m2} >=60 mL/min/1.73s qm [facility] Comment on above: 2020 CKD EPI Equatio n using Creatinine without Race Comment: Estimated glomerular filtration rate (eGFR) is calculated without a race coefficient. Values should be interpreted in the context of the patient's full clinical presentation. Reference: 1. Chas C, Vic M, Anastasia DC, et al.. A Unifying Approach for GFR Estimation: Recommendations of the NKF-ASN Task Force on Reassessing the Inclusion of Race in Diagnosing Kidney Disease. [place] Journal of Kidney Diseases 202;79(2):268-88.e1. 2. N Engl J Med 1 Vol. 385 Issue 19 Pages 6261-2809 Glucose [Mass/Vol] 100 mg/dL 80 - 116 mg/dL [facility] Interpretation and review of laboratory results Abnormal [facility] Potassium [Moles/Vol] 3.8 mmol/L 3.3 - 5.3 mmol/L [facility] Sodium [Moles/Vol] 138 mmol/L 135 - 148 mmol/L [facility] Urea nitrogen [Mass/Vol] 5 mg/dL Low 8 - 22 mg/dL [facility] CBC WITH DIFFERENTIALOrdered By: Shannon Lockett on 12-30-2021 Basophils (Bld) [#/Vol] 0.03 10*3/uL 0.00 - 0.20 K/uL [facility] Basophils/100 WBC (Bld) 0.7 % <=1.9 [facility] Eosinophils (Bld) [#/Vol] 0.11 10*3/uL 0.00 - 0.70 K/uL [facility] Eosinophils/100 WBC (Bld) 2.4 % 0.1 - 4.0 % [facility] Erythrocyte distribution width (RBC) [Ratio] 19.2 % High 11.5 - 14.5 % [facility] Hematocrit (Bld) [Volume fraction] 31.1 % Low 36.0 - 46.0 % [facility] Hemoglobin (Bld) [Mass/Vol] 10.2 g/dL Low 12.0 - 15.0 g/dL [facility] Interpretation and review of laboratory results Abnormal [facility] Lymphocytes (Bld) [#/Vol] 2.59 10*3/uL 1.00 - 4.80 K/uL [facility] Lymphocytes/100 WBC (Bld) 59.3 % High 24.0 - 44.0 % [facility] MCH (RBC) [Entitic mass] 25.0 pg Low 26.0 - 34.0 pg [facility] MCHC (RBC) [Mass/Vol] 32.9 g/dL 32.0 - 35.9 g/dL [facility] MCV (RBC) [Entitic vol] 76 fL Low 80 - 100 fL [facility] Monocyte distribution width Auto (Bld) [Entitic vol] [facility] Monocytes (Bld) [#/Vol] 0.33 10*3/uL 0.20 - 1.00 K/uL [facility] Monocytes/100 WBC (Bld) 7.6 % 2.0 - 11.0 % [facility] Neutrophils (Bld) [#/Vol] 1.31 10*3/uL Low 1.50 - 8.00 K/uL [facility] Neutrophils/100 WBC (Bld) 29.9 % Low 31.0 - 76.0 % [facility] Platelet mean volume (Bld) [Entitic vol] 8.2 fL 7.5 - 11.2 fL [facility] Platelets (Bld) [#/Vol] 232 10*3/uL 150 - 400 K/uL [facility] RBC (Bld) [#/Vol] 4.09 10*6/uL [facility] WBC (Bld) [#/Vol] 4.4 10*3/uL Low 4.5 - 11.5 K/uL [facility] EKG 12 LEAD - PERFORMon 12-02 Diagnosis Normal sinus rhythm Minimal voltage criteria for LVH, may be normal variant Borderline When compared with ECG of 13-JUN-2019 21:40, No significant change was found Confirmed by YUMIKO LUGO ([id number]) on 12/30/2021 7:42:32 PM [facility] P wave [facility] by EKG 95 BPM [facility] P wave axis 58 degrees [facility] P-R Interval 142 ms [facility] Q-T interval 372 ms [facility] Q-T interval corrected [facility] QRS duration 70 ms [facility] T wave axis 56 degrees [facility] MAGNESIUMon 12-30-2021 Interpretation and review of laboratory results [facility] Magnesium [Mass/Vol] 1.9 mg/dL 1.6 - 2 .8 mg/dL [facility] MANUAL DIFF AND MORPHon 12-02 Cells Counted Total (Bld) [#] [facility] Microcytes Ql (Bld) Slight [facility] Ovalocytes LM Ql (Bld) Few [facility] Polychromasia LM Ql (Bld) Slight [facility] RBC.hypochromic/100 RBC Auto (Bld) Slight [facility] Target cells LM Ql (Bld) Few [facility] CBC WITH DIFFERENTIALon 12-02 Basophils (Bld) [#/Vol] 0.02 10*3/uL 0.00 - 0.20 K/uL [facility] Basophils/100 WBC (Bld) 0.5 % <=1.9 [facility] Eosinophils (Bld) [#/Vol] 0.07 10*3/uL 0.00 - 0.70 K/uL [facility] Eosinophils/100 WBC (Bld) 1.5 % 0.1 - 4.0 % [facility] Erythrocyte distribution width (RBC) [Ratio] 18.8 % High 11.5 - 14.5 % [facility] Hematocrit (Bld) [Volume fraction] 29.9 % Low 36.0 - 46.0 % [facility] Hemoglobin (Bld) [Mass/Vol] 10.0 g/dL Low 12.0 - 15.0 g/dL [facility] Interpretation and review of laboratory results Abnormal [facility] Lymphocytes (Bld) [#/Vol] 2.14 10*3/uL 1.00 - 4.80 K/uL [facility] Lymphocytes/100 WBC (Bld) 49.7 % High 24.0 - 44.0 % [facility] MCH (RBC) [Entitic mass] 25.6 pg Low 26.0 - 34.0 pg [facility] MCHC (RBC) [Mass/Vol] 33.5 g/dL 32.0 - 35.9 g/dL [facility] MCV (RBC) [Entitic vol] 76 fL Low 80 - 100 fL [facility] Monocyte distribution width Auto (Bld) [Entitic vol] 19 <=20 [facility] Monocytes (Bld) [#/Vol] 0.33 10*3/uL 0.20 - 1.00 K/uL [facility] Monocytes/100 WBC (Bld) 7.7 % 2.0 - 11.0 % [facility] Neutrophils (Bld) [#/Vol] 1.74 10*3/uL 1.50 - 8.00 K/uL [facility] Neutrophils/100 WBC (Bld) 40.6 % 31.0 - 76.0 % [facility] Platelet mean volume (Bld) [Entitic vol] 8.2 fL 7.5 - 11.2 fL [facility] Platelets (Bld) [#/Vol] 195 10*3/uL 150 - 400 K/uL [facility] RBC (Bld) [#/Vol] 3.92 10*6/uL Low [facility] WBC (Bld) [#/Vol] 4.3 10*3/uL Low 4.5 - 11.5 K/uL [facility] FERRITINon 12-29-2021 Ferritin [Mass/Vol] 10.6 ng/mL 10.3 - 2 19.0 ng/mL [facility] Interpretation and review of laboratory results Normal [facility] IRON AND TIBCon 12-29-2021 Interpretation and review of laboratory results Abnormal [facility] Iron [Mass/Vol] 212 ug/dL High 45 - 160 ug/dL [facility] Iron binding capacity [Mass/Vol] 389 ug/mL 250 - 410 ug/mL [facility] Iron saturation [Mass fraction] 54 % 20 - 55 % [facility] Transferrin [Mass/Vol] 278 mg/dL 210 - 375 mg/dL [facility] Basic metabolic 2000 panelon 12-28-2021 Anion gap [Moles/Vol] 17 mmol/L [facility] Calcium [Mass/Vol] 9.3 mg/dL 8.4 - 10. 4 mg/dL [facility] Chloride [Moles/Vol] 103 mmol/L 97 - 11 1 mmol/L [facility] CO2 [Moles/Vol] 17 mmol/L Low 21 - 30 mmol/L [facility] Creatinine [Mass/Vol] 1.13 mg/dL High 0.50 - 1.10 mg/dL [facility] GFR/1.73 sq M.predicted MDRD (S/P/Bld) [Vol rate/Area] 55 mL/min/{1.73_m2} Low >=60 mL/min/1.73s qm [facility] Comment on above: 2020 CKD EPI Equatio n using Creatinine without Race Comment: Estimated glomerular filtration rate (eGFR) is calculated without a race coefficient. Values should be interpreted in the context of the patient's full clinical presentation. Reference: 1. Chas C, Vic M, Anastasia DC, et al.. A Unifying Approach for GFR Estimation: Recommendations of the NKF-ASN Task Force on Reassessing the Inclusion of Race in Diagnosing Kidney Disease. [place] Journal of Kidney Diseases 202;79(2):268-88.e1. 2. N Engl J Med 2020 Vol. 385 Issue 19 Pages 4120-0327 Glucose [Mass/Vol] 112 mg/dL 80 - 116 mg/dL [facility] Interpretation and review of laboratory results Abnormal [facility] Potassium [Moles/Vol] 4.7 mmol/L 3.3 - 5.3 mmol/L [facility] Comment on above: Hemolysis present Sodium [Moles/Vol] 132 mmol/L Low 135 - 148 mmol/L [facility] Urea nitrogen [Mass/Vol] 17 mg/dL 8 - 22 mg/dL [facility] CBC WITH DIFFERENTIALOrdered By: Niocl Duffy on 12-28-2021 Basophils (Bld) [#/Vol] 0.02 10*3/uL 0.00 - 0.20 K/uL [facility] Basophils/100 WBC (Bld) 0.5 % <=1.9 [facility] Eosinophils (Bld) [#/Vol] 0.03 10*3/uL 0.00 - 0.70 K/uL [facility] Eosinophils/100 WBC (Bld) 0.6 % 0.1 - 4.0 % [facility] Erythrocyte distribution width (RBC) [Ratio] 18.9 % High 11.5 - 14.5 % [facility] Hematocrit (Bld) [Volume fraction] 32.0 % Low 36.0 - 46.0 % [facility] Hemoglobin (Bld) [Mass/Vol] 10.5 g/dL Low 12.0 - 15.0 g/dL [facility] Interpretation and review of laboratory results Abnormal [facility] Lymphocytes (Bld) [#/Vol] 1.58 10*3/uL 1.00 - 4.80 K/uL [facility] Lymphocytes/100 WBC (Bld) 36.6 % 24.0 - 44.0 % [facility] MCH (RBC) [Entitic mass] 24.9 pg Low 26.0 - 34.0 pg [facility] MCHC (RBC) [Mass/Vol] 32.7 g/dL 32.0 - 35.9 g/dL [facility] MCV (RBC) [Entitic vol] 76 fL Low 80 - 100 fL [facility] Monocyte distribution width Auto (Bld) [Entitic vol] 20 <=20 [facility] Monocytes (Bld) [#/Vol] 0.28 10*3/uL 0.20 - 1.00 K/uL [facility] Monocytes/100 WBC (Bld) 6.5 % 2.0 - 11.0 % [facility] Neutrophils (Bld) [#/Vol] 2.42 10*3/uL 1.50 - 8.00 K/uL [facility] Neut[facility]ils/[facility] WBC (Bld) 55.8 % 31.0 - 76.0 % [facility] Platelet mean volume (Bld) [Entitic vol] 8.2 fL 7.5 - 11.2 fL [facility] Platelets (Bld) [#/Vol] 251 10*3/uL 150 - 400 K/uL [facility] RBC (Bld) [#/Vol] 4.20 10*6/uL [facility] WBC (Bld) [#/Vol] 4.3 10*3/uL Low 4.5 - 11.5 K/uL [facility] GOLD TOP - SST TUBE, BLOODon 12-28-2021 Extra Tube Done [facility] HEPATIC FUNCTION PANELon Albumin [Mass/Vol] 3.3 g/dL Low 3.4 - 5.1 g/dL [facility] ALP [Catalytic activity/Vol] 78 U/L [facility] ALT [Catalytic activity/Vol] 13 U/L [facility] AST [Catalytic activity/Vol] 21 U/L [facility] Comment on above: Hemolysis present Bilirubin [Mass/Vol] 0.8 mg/dL 0.1 - 1 .5 mg/dL [facility] Bilirubin.direct [Mass/Vol] 0.30 mg/dL 0.10 - 0.30 mg/dL [facility] Interpretation and review of laboratory results Abnormal [facility] Protein [Mass/Vol] 5.7 g/dL 5.7 - 8.1 g/dL [facility] L[facility] 12-28-2021 Interpretation and review of laboratory results Normal [facility] Lipase [Catalytic activity/Vol] 23 U/L <128 IU/L [facility] POTASSIUM, WHOLE BLOODOrdere d By: Razia De Anda on 12-28-2021 Interpretation and review of laboratory results Normal [facility] Potassium [Moles/Vol] 3.7 mmol/L 3.3 - 5.3 mmol/L [facility] TROPONIN Ion 12-28-2021 Interpretation and review of laboratory results Normal [facility] Troponin I.cardiac DL <= 0.01 ng/mL [Mass/Vol] ng/mL <0.120 ng/mL [facility] Comment on above: Range <=0.04 ng/mL: Negative Interpretation: Repeat testing in four to six hours if clinically indicated. Range 0.04-0.11 ng/mL: Suspected for acute myocardial injury. Interpretation: Serial measurements may be necessary to confirm or exclude the diagnosis of acute coronary syndrome. Repeat testing in four to six hours if clinically indicated. Range >=0.12 ng/mL: Results consistent with myocardial injury. Interpretation: Clinical and laboratory correlation recommended. [facility] DRUGUon 07-05-2019 Drug Screen Urine Positive [facility] ([place]) Comment on above: Performed By: #### D RUGU #### [address] [address] Drug Screen Urine Interp Positive [facility] ([place]) Comment on above: Performed By: #### D KAYLEYU #### [place] [address] U pH Drug Scrn 6.0 Normal 5.0-8.0 [facility] ([place]) Comment on above: Performed By: #### D KAYLEYU #### [place] [id number] U Specific [place] Drg Scrn 1.030 Normal 1.005-1.030 [facility] ([place]) Comment on above: Performed By: #### D KAYLEYU #### [place] [address] Urine Drugs screened: See Below Normal [facility] ([place]) Comment on above: Result Comment: This drug screen is a presumptive screening only. No confirmation will be performed unless requested. Drugs screened include: Threshold Amphetamines/Methamphetamines 1,000 ng/mL Barbiturates 200 ng/mL Benzodiazepine metabolites 200 ng/mL Cannabinoids (THC metabolites) 50 ng/mL Benzoylecognine (Cocaine metab) 300 ng/mL Opiates 300 ng/mL Phencyclidine (PCP) 25 ng/mL Methadone 300 ng/mL Propoxyphene 300 ng/mL Testing has been performed FOR MEDICAL PURPOSES ONLY. Performed By: #### D RUGU #### [place] [address] .Auto Diffon 06-13-2019 Ammonia (P) [Mass/Vol] 0.30 10 3/mcL Normal 0.15-1.00 [facility] ([place]) Comment on above: Performed By: #### C WILL MCLAUGHLIN, ANEU #### [address] [address] Basophils (Bld) [#/Vol] 0.00 10 3/mcL Normal 0.00-0.19 [facility] ([place]) Comment on above: Performed By: #### C WILL MCLAUGHLIN, ANEU #### [address] [address] Basophils/100 WBC (Bld) 0.8 % Normal 0.0-2.5 [facility] ([place]) Comment on above: Performed By: #### C WILL MCLAUGHLIN, ANEU #### [address] [address] Eosinophils (Bld) [#/Vol] 0.10 10 3/mcL Normal 0.00-0.40 [facility] ([place]) Comment on above: Performed By: #### WILL CARRINGTON, ANEU #### [address] [address] Eosinophils/100 WBC (Bld) 3.4 % Normal 0.0-7.0 [facility] ([place]) Comment on above: Performed By: #### C WILL MCLAUGHLIN, ANEU #### [address] [address] Lymphocytes (Bld) [#/Vol] 1.60 10 3/mcL Normal 0.77-3.85 [facility] ([place]) Comment on above: Performed By: #### C WILL MCLAUGHLIN, ANEU #### [address] [address] Lymphocytes/100 WBC (Bld) 37.7 % Normal 10.0-50.0 [facility] ([place]) Comment on above: Performed By: #### C ARNOLDO ADKARLOS, ANEU #### [address] [address] Monocytes/100 WBC (Bld) 8.0 % Normal 1.7-13.0 [facility] ([place]) Comment on above: Performed By: #### C BC, ADIFF, ANEU #### [place] [address] [address] Neutrophils/100 WBC (Bld) 50.1 % Normal 37.0-80.0 [facility] ([place]) Comment on above: Performed By: #### WILL CARRINGTON ANEU #### [place] [address] [address] .NEUABSon 06-13-2019 Neutrophils (Bld) [#/Vol] 2.10 10 3/mcL Low 2.85-6.16 [facility] ([place]) Comment on above: Performed By: #### WILL CARRINGTON ANEU #### [place] [address] [address] CBCon 06-13-2019 Erythrocyte distribution width (RBC) [Ratio] 20.2 % High 11.5-14.5 [facility] ([place]) Comment on above: Performed By: #### WILL CARRINGTON ANEU #### [place] [address] [address] Hematocrit (Bld) [Volume fraction] 33.7 % Low 37.0-47.0 [facility] ([place]) Comment on above: Performed By: #### WILL CARRINGTON ANEU #### [place] [address] [address] Hemoglobin (Bld) [Mass/Vol] 10.7 G/dL Low 12.0-16.0 [facility] ([place]) Comment on above: Performed By: #### WILL CARRINGTON, ANEU #### [place] [address] [address] MCH (RBC) [Entitic mass] 24.6 pg Low 27.0-31.2 [facility] ([place]) Comment on above: Performed By: #### WILL CARRINGTON, ANEU #### [place] [address] [address] MCHC (RBC) [Mass/Vol] 31.8 G/dL Low 33.0-37.0 [facility] ([place]) Comment on above: Performed By: #### WILL CARRINGTON ANEU #### [place] [address] [address] MCV (RBC) [Entitic vol] 77.3 fL Low 80.0-94.0 [facility] ([place]) Comment on above: Performed By: #### WILL CARRINGTON ANEU #### [place] [address] [address] Platelet mean volume (Bld) [Entitic vol] 7.1 fL Low 7.4-10.4 [facility] ([place]) Comment on above: Performed By: #### WILL CARRINGTON ANEU #### [address] [address] Platelets (Bld) [#/Vol] 316 10 3/mcL Normal 130-400 [facility] ([place]) Comment on above: Performed By: #### WILL CARRINGTON ANEU #### [place] [address] [address] RBC (Bld) [#/Vol] 4.35 10 6/mcL Normal 4.20-5.40 [facility] ([place]) Comment on above: Performed By: #### WILL CARRINGTON ANEU #### [place] [address] [address] WBC (Bld) [#/Vol] 4.20 10 3/mcL Low 4.60-10.80 [facility] ([place]) Comment on above: Performed By: #### WILL CARRINGTON ANEU #### [address] [address] Vital Signs Date Time Vital Sign Value Performing Clinician Facility 11-16-2023 18:19-0400 Body temperature 97.8 [degF] [facility] 11-16-2023 18:19-0400 Diastolic blood pressure 75 mm[Hg] [facility] 11-16-2023 18:19-0400 Heart rate 81 /min [facility] 11-16-2023 18:19-0400 Respiratory rate 16 /min [facility] 11-16-2023 18:19-0400 SaO2% (BldA) [Mass fraction] 96 % [facility] 11-16-2023 18:19-0400 Systolic blood pressure 117 mm[Hg] [facility] 11-16-2023 13:37-0400 Body height 167.64 cm [facility] 11-16-2023 13:37-0400 Body mass index (BMI) [Ratio] 24.2 kg/m2 [facility] 11-16-2023 13:37-0400 Body weight 68.03 kg [facility] 03-23-2023 21:05-0400 Diastolic blood pressure 87 mm[Hg] No Primary Care Physician [facility] 03-23-2023 21:05-0400 Heart rate 70 /min No Primary Care Physician [facility] 03-23-2023 21:05-0400 Respiratory rate 16 /min No Primary Care Physician [facility] 03-23-2023 21:05-0400 SaO2% (BldA) [Mass fraction] 100 % No Primary Care Physician [facility] 03-23-2023 21:05-0400 Systolic blood pressure 133 mm[Hg] No Primary Care Physician [facility] 03-23-2023 18:25-0400 Body temperature 98.1 [degF] No Primary Care Physician [facility] 03-23-2023 16:26-0400 Body height 167.64 cm No Primary Care Physician [facility] 03-23-2023 16:26-0400 Body mass index (BMI) [Ratio] 26 kg/m2 No Primary Care Physician [facility] 03-23-2023 16:26-0400 Body weight 73.2 kg No Primary Care Physician [facility] 03-09-2023 09:07-0400 Body height 167.6 cm Hilton Johnson MD Work Phone: [place] [facility] 03-09-2023 09:07-0400 Body mass index (BMI) [Ratio] 26.47 kg/m2 Hilton Johnson MD Work Phone: [place] [facility] 03-09-2023 09:07-0400 Body temperature 97.9 [degF] Hilton Johnson MD Work Phone: [facility] 03-09-2023 09:07-0400 Body weight 74.39 kg Hilton Johnson MD Work Phone: [facility] 03-09-2023 09:07-0400 Diastolic blood pressure 66 mm[Hg] Hilton Johnson MD [facility] 03-09-2023 09:07-0400 Heart rate 76 /min Hilton Johnson MD Work Phone[facility] 03-09-2023 09:07-0400 Systolic blood pressure 116 mm[Hg] Hilton Johnson MD Work Phone: [facility] 02-16-2023 09:23-0400 Body temperature 97.9 [degF] No Primary Care Physician [facility] 02-16-2023 09:23-0400 Diastolic blood pressure 73 mm[Hg] No Primary Care Physician [facility] 02-16-2023 09:23-0400 Heart rate 73 /min No Primary Care Physician [facility] 02-16-2023 09:23-0400 Respiratory rate 16 /min No Primary Care Physician [facility] 02-16-2023 09:23-0400 SaO2% (BldA) [Mass fraction] 100 % No Primary Care Physician [facility] 02-16-2023 09:23-0400 Systolic blood pressure 119 mm[Hg] No Primary Care Physician [facility] 02-16-2023 03:22-0400 Body mass index (BMI) [Ratio] 27.7 kg/m2 No Primary Care Physician [facility] 02-16-2023 03:22-0400 Body weight 77.9 kg No Primary Care Physician [facility] 02-14-2023 10:27-0400 Body height 167.64 cm No Primary Care Physician [facility] 02-13-2023 20:55-0400 Body temperature 96.8 [degF] [facility] 02-13-2023 20:55-0400 Diastolic blood pressure 80 mm[Hg] [facility] 02-13-2023 20:55-0400 Heart rate 82 /min [facility] 02-13-2023 20:55-0400 Respiratory rate 18 /min [facility] 02-13-2023 20:55-0400 SaO2% (BldA) [Mass fraction] 98 % [facility] 02-13-2023 20:55-0400 Systolic blood pressure 122 mm[Hg] [facility] 02-13-2023 19:21-0400 Body height 167.64 cm [facility] 02-13-2023 19:21-0400 Body mass index (BMI) [Ratio] 27.6 kg/m2 [facility] 02-13-2023 19:21-0400 Body weight 77.6 kg [facility] 10-22-2022 13:13-0400 Diastolic blood pressure 84 mm[Hg] [facility] 10-22-2022 13:13-0400 Heart rate 88 /min [facility] 10-22-2022 13:13-0400 Respiratory rate 16 /min [facility] 10-22-2022 13:13-0400 SaO2% (BldA) [Mass fraction] 100 % [facility] 10-22-2022 13:13-0400 Systolic blood pressure 126 mm[Hg] [facility] 10-22-2022 11:50-0400 Body mass index (BMI) [Ratio] 27.4 kg/m2 [facility] 10-22-2022 11:50-0400 Body weight 77.1 kg [facility] 10-22-2022 10:07-0400 Body height 167.64 cm [facility] 10-22-2022 10:07-0400 Body temperature 97.9 [degF] [facility] 10-09-2022 17:22-0500 Body height 167.64 cm [facility] 10-09-2022 17:22-0500 Body mass index (BMI) [Ratio] 28.2 kg/m2 [facility] 10-09-2022 17:22-0500 Body temperature 98.6 [degF] [facility] 10-09-2022 17:22-0500 Body weight 79.37 kg [facility] 10-09-2022 17:22-0500 Diastolic blood pressure 79 mm[Hg] [facility] 10-09-2022 17:22-0500 Heart rate 110 /min [facility] 10-09-2022 17:22-0500 Respiratory rate 18 /min [facility] 10-09-2022 17:22-0500 SaO2% (BldA) [Mass fraction] 99 % [facility] 10-09-2022 17:22-0500 Systolic blood pressure 110 mm[Hg] [facility] 07-07-2022 15:21-0500 Body temperature 98 [degF] [facility] 07-07-2022 15:21-0500 Diastolic blood pressure 87 mm[Hg] [facility] 07-07-2022 15:21-0500 Heart rate 85 /min [facility] 07-07-2022 15:21-0500 Respiratory rate 16 /min [facility] 07-07-2022 15:21-0500 SaO2% (BldA) [Mass fraction] 100 % [facility] 07-07-2022 15:21-0500 Systolic blood pressure 114 mm[Hg] [facility] 07-07-2022 12:17-0500 Body height 167.64 cm [facility] Work Phone: 07-07-2022 12:17-0500 Body mass index (BMI) [Ratio] 28.4 kg/m2 [facility] 07-07-2022 12:17-0500 Body weight 79.83 kg [facility] 01-01-2022 06:00-0400 Body temperature 97.59 [degF] Wayne Benton MD Work Phone: [facility] 01-01-2022 06:00-0400 Diastolic blood pressure 84 mm[Hg] Wayne Benton MD Work Phone: [email or web address] 01-01-2022 06:00-0400 Heart rate 76 /min Wayne Benton MD Work Phone: [email or web address] 01-01-2022 06:00-0400 Respiratory rate 18 /min Wayne Benton MD Work Phone: [email or web address] 06-02-2022 06:00-0400 SaO2% (BldA) [Mass fraction] 100 % Wayne Benton MD Work Phone: [email or web address] 01-01-2022 06:00-0400 Systolic blood pressure 137 mm[Hg] Wayne Benton MD Work Phone: [email or web address] 12-30-2021 20:07-0400 Heart rate 95 /min Wayne Benton MD Work Phone: [email or web address] 12-29-2021 17:59-0400 Body height 167.6 cm Wayne Benton MD Work Phone: [email or web address] 12-29-2021 17:59-0400 Body mass index (BMI) [Ratio] 31.05 kg/m2 Wayne Benton MD Work Phone: [email or web address] 12-29-2021 17:59-0400 Body weight 87.27 kg Wayne Benton MD Work Phone: [email or web address] Encounters Encounter Date Encounter Type Care Provider Facility Start: 12-15-2024 End: 12-15-2024 ambulatory Stoney Chi Trisatn Facility[facility] Start: 10-10-2024 End: 10-10-2024 ambulatory Stoney Chi Tristan Facility:[facility] Start: 08-30-2024 End: 08-30-2024 ambulatory Stoney Chi Tristan Facility:[facility] Start: 08-26-2024 End: 08-26-2024 Emergency department patient visit Stoney Chi Tristan Facility:[facility] Start: 08-22-2024 End: 08-22-2024 ambulatory Stoney Chi Tristan Facility:[facility] Start: 07-20-2024 End: 07-20-2024 ambulatory Stoney Chi Tristan Facility:[facility] Start: 07-19-2024 End: 07-19-2024 ambulatory Stoney Chi Tristan Facility:[facility] Start: 06-08-2024 End: 06-08-2024 ambulatory BUNNY YO MD Facility:[facility] Start: 06-08-2024 End: 06-08-2024 Patient encounter procedure BUNNY YO MD [facility] Start: 04-20-2024 [facility] Start: 04-19-2024 End: 04-19-2024 ambulatory Stoney Chi Tristan Facility:[facility] Start: 04-11-2024 End: 04-12-2024 ambulatory Stoney Chi Tristan Facility:[facility] Start: 04-11-2024 End: 04-11-2024 ambulatory [facility] Facility:[facility] Start: 04-05-2024 End: 04-05-2024 Emergency department patient visit Stoney Chi Tristan Facility:[facility] Start: 04-04-2024 End: 04-04-2024 Emergency department patient visit Stoney Chi Tristan Facility:[facility] Start: 04-04-2024 ambulatory Stoney Chi Tristan Facility:[facility] Start: 04-01-2024 End: 04-01-2024 Emergency department patient visit Stoney Chi Tristan Facility:[facility] Start: 02-21-2024 End: 02-21-2024 ambulatory Stoney Chi Tristan Facility:[facility] Start: 02-16-2024 End: 02-16-2024 ambulatory Stoney Chi Tristan Facility:[facility] Start: 02-14-2024 End: 02-14-2024 ambulatory Stoney Chi Tristan Facility:[facility] Start: 02-08-2024 End: 02-18-2024 Refill Hilton Johnson MD Work Phone: [facility] Comment on above: Refill Refill; Reference 99 Start: 01-31-2024 ambulatory Stoney Chi Tristan Facility:[facility] Start: 01-21-2024 End: 01-21-2024 Telephone encounter To Be Assigned [facility] Physicia n Referral Service Comment on above: Update Start: 01-18-2024 End: 01-18-2024 ambulatory No Primary Care Physician Facility:[facility] Start: 01-10-2024 End: 01-10-2024 ambulatory No Primary Care Physician Facility:[facility] Start: 01-05-2024 End: 01-06-2024 Refill Hilton Johnson MD Work Phone: [facility] Comment on above: Refill Start: 12-21-2023 End: 12-23-2023 Refill Hilton Johnson MD Work Phone: [facility] Comment on above: Refill Start: 12-01-2023 Emergency department patient visit JEANA QUINTANA Facility:[facility] Start: 11-24-2023 Refill Hilton Johnson MD Work Phone: [facility] Comment on above: Refill Start: 11-16-2023 End: 11-16-2023 Emergency department patient visit [facility]Emergency [facility] Work Phone: Start: 11-12-2023 Letter encounter Patrizia SMALL [facility] Cardiology Start: 10-25-2023 Refill Hilton Johnson MD Other Phone: [facility] Comment on above: Refill Start: 05-28-2023 Telephone encounter Hilton smiley MD Work Phone: [facility] Comment on above: Medical Record Revie w Start: 03-23-2023 End: 03-23-2023 Emergency department patient visit No Primary Care Physician [facility] Work Phone: Start: 03-15-2023 Telephone encounter Hilton smiley MD Work Phone: [facility] Comment on above: Med Change Request Start: 03-10-2023 Telephone encounter Hilton smiley MD Work Phone: [facility] Start: 03-09-2023 End: 03-09-2023 Initial preventive medicine new patient 40-64yrs Hilton Johnson MD Work Phone: [facility] Comment on above: Routine adult health maintenance (Primary Dx); Lipid screening; 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-en-Y gastric bypass; Postoperative malabsorption; Cervical spondylosis without myelopathy; Primary osteoarthritis of right knee; Anastomotic ulcer S/P gastric bypass; Calculus of gallbladder without cholecystitis without obstruction; Generalized abdominal pain; Dizziness; Prediabetes; Body mass index (BMI) 26.0-26.9, adult Start: 03-09-2023 End: 03-09-2023 Patient encounter status Hilton Johnson MD Work Phone: [facility] Start: 03-09-2023 End: 03-09-2023 ambulatory UNKNOWN PROVIDER Facility:[facility] Start: 03-02-2023 Emergency department patient visit Rock Sharpe MD Work Phone: [facility] Emergency Medicine Comment on above: Refill Start: 03-01-2023 Registered Referred No Primary Care Physician [facility]Cardiovascul ar Services Work Phone: Start: 02-24-2023 Telephone encounter Rock anthony MD Work Phone: [facility] Emergency Triage, Treat and Transport Comment on above: Requesting Medicatio ns Start: 02-16-2023 Non-patient / Non-visit No Sydnie [facility] Physician [facility] Work Phone: Start: 02-15-2023 Non-patient / Non-visit No Sydnie german [facility] Physician [facility] Work Phone: Start: 02-15-2023 Non-patient / Non-visit No Sydnie german [facility] Physician [facility] Start: 02-14-2023 Non-patient / Non-visit No Sydnie [facility] Physician [facility] Work Phone: Start: 02-13-2023 End: 02-16-2023 Evaluation and management of inpatient [facility]-Progressive Care Unit Work Phone: Start: 02-13-2023 End: 02-16-2023 observation encounter No Primary Care Physician [facility] Work Phone: Start: 10-22-2022 End: 10-22-2022 Emergency department patient visit [facility]Emergency Department Start: 10-09-2022 End: 10-09-2022 Emergency department patient visit [facility]Emergency [facility] Start: 07-07-2022 End: 07-07-2022 Emergency department patient visit [facility]Emergency [facility] Start: 02-26-2022 Telephone encounter To Be Assigned [facility] Physician Referral Service Comment on above: Left Message To Call Back Start: 12-28-2021 End: 01-01-2022 Evaluation and management of inpatient Wayne Benton MD Work Phone: Inpatient [phone] Comment on above: Gastrointestinal hem orrhage, unspecified gastrointestinal hemorrhage type (Primary Dx); Syncope and collapse; Peptic ulcer; 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-en-Y gastric bypass; Anastomotic ulcer; Chronic iron deficiency anemia Start: 03-05-2021 Patient encounter status [facility] Procedures Date Procedure Procedure Detail Performing Clinician Start: 11-16-2023 Plain chest X-ray Start: 11-16-2023 SARS-CoV-2, Influenza & RSV (PCR) Start: 03-09-2023 DARK BLUE TOP TUBE, BLOOD Hilton Johnson MD Work Phone: Start: 03-09-2023 EXTRA TUBE Hilton Johnson MD Work Phone: Start: 03-09-2023 25 hydroxy includes fractions if performed Hilton Johnson MD Work Phone: Start: 02-14-2023 Plain X-ray of shoulder No Primary Care Physician Start: 02-13-2023 Plain chest X-ray Start: 02-13-2023 CT of head without contrast Start: 10-22-2022 Plain chest X-ray Start: 10-22-2022 Computed tomography of abdomen and pelvis with intravenous contrast Start: 07-07-2022 Plain chest X-ray Start: 01-01-2022 EXTRA TUBE Orestes Gaspar MD Work Phone: Start: 01-01-2022 LAVENDER TOP TUBE, BLOOD Orestes Gaspar MD Work Phone: Start: 01-01-2022 Assay of magnesium Lacey Baghdy DO Work Phone: Start: 12-31-2021 Assay of magnesium Lacey Baghdy DO Work Phone: Start: 12-30-2021 Colonoscopy flx dx w/collj spec when pfrmd Todd Ortiz MD Work Phone: Start: 12-30-2021 Esophagogastroduodenoscopy transoral diagnostic Todd Ortiz MD Work Phone: Start: 12-30-2021 End: 12-30-2021 ESOPHAGOGASTRODUODENOSCOPY AND COLONOSCOPY Davon Ha MD Work Phone: Start: 12-30-2021 Assay of magnesium Lacey Baghdy DO Work Phone: Start: 12-30-2021 Colonoscopy Wayne Benton MD Work Phone: Start: 12-29-2021 Blood count complete auto&auto difrntl wbc Viviane Goetz MD Work Phone: Start: 12-28-2021 GOLD TOP - SST TUBE, BLOOD Rowan Lujan MD Work Phone: Start: 12-28-2021 Assay of ferritin Viviane Goetz MD Work Phone: Start: 12-28-2021 Potassium serum plasma/whole blood Dwaine P restowitz DO Work Phone: Start: 12-28-2021 End: 12-28-2021 Assay of lipase Dwaine Prestowitz DO Work Phone: Start: 12-28-2021 Hepatic function panel Dwaine Prestowitz DO Work Phone: Start: 12-28-2021 Ecg routine ecg w/least 12 lds trcg only w/o i&r Dwaine Prestowitz DO Work Phone: Start: 07-17-2013 Microscopic observation [Identifier] in Cervix by Cyto stain Wayne Benton MD Work Phone: Start: 10-10-2008 History of gastrointestinal tract bypass 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-en-Y gastric bypass Hilton Johnson MD Work Phone: section BUNNY YO MD Esophagogastrostomy, antesternal or antethoracic BUNNY YO MD History of gastroint estinal tract bypass Intestinal bypass or anastomosis status Wayne Benton MD Work Phone: Plan of Treatment Date Care Activity Detail Author Start: 12-31-2031 Screening [facility] Start: 03-09-2028 Cholesterol [Mass/volume] in Serum or Plasma Cholesterol [facility] Start: 02-16-2028 Cholesterol [Mass/volume] in Serum or Plasma Cholesterol [facility] Start: 09-28-2027 Tetanus vaccination [facility] Start: 05-02-2024 Influenza vaccination Influenza Vaccine (#1) [facility] Start: 03-23-2024 Creatinine measurement Basic Metabolic Panel [facility] Start: 03-09-2024 Creatinine measurement Basic Metabolic Panel [facility] Start: 03-09-2024 Hemoglobin A1c measurement Hemoglobin A1C [facility] Start: 02-24-2024 End: 02-24-2024 Patient encounter procedure 02/24/2024 1:00 PM EDT Office Visit [place] [id number] Randall Hodgson MD [address] [place], [place] [id number] [facility] Start: 01-31-2024 Creatinine measurement Basic Metabolic Panel [facility] Start: 11-16-2023 [facility] Start: 07-05-2023 End: 07-05-2023 Patient encounter procedure 07/05/2023 11:00 AM EST Office Visit [address] [address] Gabriel Ugarte MD [address] [place] [id number] [facility] Start: 05-02-2023 Influenza vaccination Influenza Vaccine (#1) [facility] Start: 05-02-2023 End: 07-10-2023 Lipid 1996 panel - Serum or Plasma FULL LIPID PROFILE Lab Routine Hyperlipidemia, unspecified hyperlipidemia type Expected: 05/02/2023, Expires: 07/10/2023 [facility] Work Phone: Comment on above: Expected: 05/02/2023, Expires: Start: 04-02-2023 COVID-19 Vaccine () COVID-19 Vaccine () [facility] Start: 04-02-2023 Influenza vaccination Influenza Vaccine (#1) [facility] Start: 03-09-2023 End: 03-09-2023 Patient encounter procedure 03/09/2023 9:20 AM EDT Office Visit [facility] [address] [place] [address] Hilton Johnson MD [address] [place] [address] [facility] Start: 02-16-2023 Patient discharge [facility] Start: 02-14-2023 End: 02-15-2023 [facility] Start: 02-13-2023 Following clinical pathway protocol [facility] Start: 02-13-2023 Assessment of risk of venous thromboembolism [facility] Start: 02-13-2023 Cardiac monitoring [facility] Start: 02-13-2023 Fall prevention [facility] Start: 02-13-2023 Inhalation therapy procedure [facility] Start: 02-13-2023 Insertion of catheter into peripheral vein [facility] Start: 02-13-2023 Introduction of urinary catheter [facility] Start: 02-13-2023 Measuring intake and output [facility] Start: 02-13-2023 Oxygen therapy [facility] Start: 02-13-2023 Providing care according to standard [facility] Start: 02-13-2023 Provision of activity privileges [facility] Start: 02-13-2023 Referral to service [facility] Start: 02-13-2023 Tobacco use cessation education [facility] Start: 02-13-2023 End: 02-13-2023 [facility] Start: 02-13-2023 Verification routine [facility] Start: 02-13-2023 Admission procedure [facility] Start: 02-13-2023 [facility] Start: 02-13-2023 Patient referral to dietitian [facility] Start: 01-01-2023 Basic metabolic 2000 panel - Serum or Plasma Basic Metabolic Panel [facility] Start: 09-16-2022 Shingles (RZV) Vaccine (2 of 2) Shingles (RZV) Vaccine (2 of 2) [facility] Start: 07-07-2022 [facility] Start: 06-22-2022 Hemoglobin A1c measurement Hemoglobin A1C [facility] Start: 05-02-2022 Influenza vaccination Influenza Vaccine (#1) [facility] Start: 02-19-2022 End: 02-19-2022 Patient encounter procedure 02/19/2022 Office Visit Gastroenterology Mary Ellen Miller MD [address] [place] [address] [facility] Gastroenterology Start: 01-14-2022 End: 01-14-2022 Patient encounter procedure 01/14/2022 Office Visit Internal Medicine Macy Smith DO [address] [place] [address] [facility] Start: 04-05-2021 COVID-19 Vaccine (3 - Booster for Pfizer series) COVID-19 Vaccine (3 - Booster for Pfizer series) [facility] Start: 12-29-2020 COVID-19 Vaccine (3 - Booster for Pfizer series) COVID-19 Vaccine (3 - Booster for Pfizer series) [facility] Start: 12-29-2020 COVID-19 Vaccine (3 - Pfizer series) COVID-19 Vaccine (3 - Pfizer series) [facility] Start: 2020 Hepatitis B (HBV) Vaccine (optional start 60+ years) Hepatitis B (HBV) Vaccine (optional start 60+ years) [facility] Start: 2020 RSV vaccine (optional 60+ years) RSV vaccine (optional 60+ years) [facility] Start: 11-15-2019 Hepatitis A (HAV) Vaccine (2 of 2 - Risk 2-dose series) Hepatitis A (HAV) Vaccine (2 of 2 - Risk 2-dose series) [facility] Start: 11-02-2018 Cholesterol [Mass/volume] in Serum or Plasma Cholesterol [facility] Start: 07-17-2016 Screening for malignant neoplasm of cervix Pap Smear [facility] Start: 04-19-2016 Hemoglobin A1c measurement Hemoglobin A1C [facility] Start: 09-02-2015 Annual wellness visit Annual Wellness Visit ([id number]) [facility] Start: 04-07-2013 Screening for malignant neoplasm of breast Mammography [facility] Start: 01-31-2010 Measurement of occult blood in single stool specimen FIT [facility] Start: 01-31-2010 Shingles (RZV) Vaccine (1 of 2) Shingles (RZV) Vaccine (1 of 2) [facility] Start: 01-31-2005 Screening for malignant neoplasm of colon [facility] Start: 01-31-1966 Pneumococcal vaccination Pneumococcal Vaccine(s) (1 - PCV) [facility] 25 hydroxy includes fractions if performed VITAMIN D, 25-HYDROXY Lab Routine Postoperative malabsorption Ordered: 03/09/2023 [facility] Comment on above: Ordered: 03/09/2023 Amphetamine [Mass/volume] in Urine [facility] Assay of ferritin FERRITIN Lab R outine Postoperative malabsorption Ordered: 03/09/2023 [facility] Work Phone: Comment on above: Ordered: 03/09/2023 Assay of magnesium MAGNESIUM Lab STAT Daily until discontinued starting 12/30/2021, 3 completed [facility] Comment on above: Daily until discontinued starting 2021, 3 completed Basic metabolic 2000 panel - Serum or Plasma BASIC METABOLIC PANEL Lab STAT Daily until discontinued starting 12/30/2021, 3 completed [facility] Work Phone: Comment on above: Daily until discontinued starting 2021, 3 completed Basic metabolic 2000 panel - Serum or Plasma BASIC METABOLIC PANEL Lab Routine Postoperative malabsorption Ordered: 03/09/2023 [facility] Comment on above: Ordered: 03/09/2023 Benzodiazepine measurement, urine [facility] Bilirubin measuremen t, urine [facility] Blood count complete auto&auto difrntl wbc CBC WITH DIFFERENTIAL Lab Only Routine Postoperative malabsorption 03/09/2023 10:26 AM EDT [facility] Cardiac event recording [facility] CBC W Auto Different ial panel - Blood COMPLETE BLOOD COUNT W/DIFF Lab Routine Postoperative malabsorption 03/09/2023 10:26 AM EDT [facility] Cocaine measurement, urine [facility] Cyanocobalamin vitam in b-12 VITAMIN B12 (CYANOCOBALAMIN) Lab Routine Postoperative malabsorption Ordered: 03/09/2023 [email or web address] Comment on above: Ordered: 03/09/2023 DARK BLUE TOP TUBE, BLOOD DARK BLUE TOP TUBE, BLOOD Lab Panel Routine Routine adult health maintenance 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-en-Y gastric bypass Postoperative malabsorption Cervical spondylosis without myelopathy Primary osteoarthritis of right knee Anastomotic ulcer S/P gastric bypass Calculus of gallbladder without cholecystitis without obstruction Generalized abdominal pain Dizziness Lipid screening Prediabetes Body mass index (BMI) 26.0-26.9, adult 03/09/2023 2:14 PM EDT [email or web address] Diabetes tracking panel HEMOGLOB IN A1C Lab Routine Prediabetes 03/09/2023 10:26 AM EDT [employer] Ethanol [Mass/volume ] in Serum or Plasma [facility] End: 12-28-2021 EXTRA TUBE EXTRA TUBE Lab Only Routine One time for 1 Occurrences starting 12/28/2021 until 12/28/2021 [employer] Work Phone: Comment on above: One time for 1 Occurrences starting 12/01 until 12/28/2021 EXTRA TUBE EXTRA TUBE Lab O nly Routine Routine adult health maintenance 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-en-Y gastric bypass Postoperative malabsorption Cervical spondylosis without myelopathy Primary osteoarthritis of right knee Anastomotic ulcer S/P gastric bypass Calculus of gallbladder without cholecystitis without obstruction Generalized abdominal pain Dizziness Lipid screening Prediabetes Body mass index (BMI) 26.0-26.9, adult 03/09/2023 2:14 PM EDT [employer] Hemoglobin [Presence ] in Urine [facility] Lipid 1996 panel - Serum or Plasma FULL LIPID PROFILE Lab Routine Lipid screening Ordered: 03/09/2023 [email or web address] Comment on above: Ordered: 03/09/2023 Measurement of 3,4-methylenedioxymetha mphetamine in urine [facility] Measurement of keton es in urine using dipstick [facility] Methadone measuremen t, urine [facility] Microscopic urinalysis [facility] Patient Education [facility] Work Phone: Patient referral [facility] Work Phone: pH of Urine [facility] pH of Urine [facility] Phencyclidine [Presence] in Urine [facility] Specific gravity of Urine [facility] Urinalysis, blood, qualitative [facility] Urine barbiturate measurement [facility] Urine cannabinoid measurement [facility] Urine dipstick for glucose [facility] Urine dipstick for leukocyte esterase [facility] Urine dipstick for nitrite [facility] Urine dipstick for protein [facility] Urine examination [facility] Urine microscopy: epithelial cells [facility] Urine Microscopy: wh ite cells [facility] Urine opiate measurement [facility] Urobilinogen [Presen ce] in Urine [facility] Immunizations Immunization Date [facility]ization [facility] Hemoglobin A1C [facility] Cartwright i, MD Work Phone: [facility] 07-22-2022 zoster vaccine recombinant Rock Sharpe MD Work Phone: [facility] 06-22-2021 Hemoglobin A1C Wayne Benton MD Work Phone: [facility] 11-03-2020 Pfizer SARS-COV-2 (COVID-19) vaccine, age 12+ yrs, mRNA, spike protein, LNP, preservative free, 30 mcg/0.3mL dose (VQY=302) Wayne Benton MD Work Phone: [facility] 10-12-2020 Pfizer SARS-COV-2 (COVID-19) vaccine, age 12+ yrs, mRNA, spike protein, LNP, preservative free, 30 mcg/0.3mL dose (IBV=098) Wayne Benton MD Work Phone: [facility] 05-16-2019 hepatitis A vaccine, adult dosage Wayne Benton MD Work Phone: [facility] 09-28-2017 tetanus toxoid, reduced diphtheria toxoid, and acellular pertussis vaccine, adsorbed Wayne Benton MD Work Phone: [facility] 07-19-2015 tuberculin skin test ; purified protein derivative solution, intradermal Wayne Benton MD Work Phone: [facility] 04-19-2015 Hemoglobin A1C Hilton Cartwright i, MD Work Phone: [facility] 09-14-2013 influenza, seasonal, injectable Wayne Benton MD Work Phone: [facility] 09-14-2013 influenza virus vaccine, unspecified formulation To Assigned [facility] 11-12-2011 tetanus toxoid, reduced diphtheria toxoid, and acellular pertussis vaccine, adsorbed Wayne Benton MD Work Phone: [facility] 01-24-2003 tuberculin skin test ; purified protein derivative solution, intradermal Hilton Johnson MD Work Phone: [facility] Work Phone: 07-11-2002 influenza virus vaccine, unspecified formulation Hilton Johnson MD Work Phone: [facility] Work Phone: Payers Date Payer Category Payer Unknown [id number] 2021 Medicare [id number] 2019 Private Health Insurance [id number] 2019 Self-pay [id number] 2014 Medicaid [id number] 2014 Medicaid [id number] 2014 Unknown [id number] 1995 Worker's Compensation 1.2.84 [id number] 1960 Unknown [id number] 1960 Unknown [id number]2 Medicare [id number] Medicare [id number] Medicare MEDICARE PART A B [id number] Private Health Insurance [facility] [id number] Unknown [id number] Unknown [id number] 2.840.1.138272.3.579.2.462 Unknown [id number] 2.840.1.085540.3.579.2.462 Unknown [id number] 2.16840.1.426645.3.579.2.462 Unknown [id number] 2.16.840.1.883633.3.579.2.462 Unknown [id number] 2.16.840.1.719772.3.579.2.462 Unknown [id number] 2.16.840.1.559037.3.579.2.462 Unknown [id number] 2.16840.1.939011.3.579.2.462 Unknown [id number] 2.16.840.1.751233.3.579.2.462 Unknown [id number] 2.16.840.1.966533.3.579.2.462 Unknown [id number] 2.16.840.1.460310.3.579.2.462 Unknown [id number] 2.16.840.1.827008.3.579.2.462 Unknown [id number] 2.16840.1.833573.3.579.2.462 Unknown [id number] 2.16.840.1.124909.3.579.2.462 Unknown [id number] 2.16.840.1.636600.3.579.2.462 Unknown [id number] 2.16.840.1.668450.3.579.2.462 Unknown [id number] 2.16.840.1.706254.3.579.2.462 Unknown [id number] 2.16.840.1.310199.3.579.2.462 Unknown [id number] 2.16.840.1.246176.3.579.2.462 Unknown [id number] 2.16.840.1.643343.3.579.2.462 Unknown [id number] 2.16.840.1.460940.3.579.2.462 Unknown [id number] 2.16840.1.372951.3.579.2.462 Unknown [id number] 2.16.840.1.993194.3.579.2.462 Social History Date Type Detail Facility Start: 11-24-2013 Tobacco smoking stat [facility] Occasional tobacco smoker [facility] History of tobacco use [facility] Start: 11-24-2013 End: 03-09-2023 Cigarettes smoked current (pack per day) - Reported 0.33 [facility] Start: 11-24-2013 End: 03-09-2023 Tobacco use and exposure Smokeless tobacco non-user [facility] Start: 06-15-2019 End: 03-09-2023 Alcohol intake Current drinker of alcohol (finding) [facility] Start: 01-12-2014 History SDOH Alcohol Comment hx of ETOH abuse--sober for 3 years, had hx of prior relapses before [facility] Start: 11-24-2013 End: 03-09-2023 Tobacco Comment 1 pack last 1-1.5 weeks [facility] Start: 1960 Sex Assigned At Not on file [facility] Start: 12-18-2021 End: 12-28-2021 Exposure to SARS-CoV-2 (event) Not sure [facility] Start: 07-07-2022 End: 11-16-2023 Tobacco smoking status NHIS Unknown if ever smoked [facility] Start: 1960 Sex Assigned At Female [facility] Start: 03-09-2023 Gender identity Not on file [facility] Start: 03-09-2023 Tobacco smoking stat us NHIS Ex-smoker [facility] History of tobacco use Current smoker [facility] Tobacco smoking status Smokes to bacco daily (finding) [facility] Goals Date Patient Goal Desired Activity /State Personal health goal Functional Status Date Assessment Result Facility 02-16-2023 Functional status [facility] Work Phone: Mental Status Date Assessment Result Facility 11-16-2023 Cognitive function Voice/Name [facility] Work Phone: 02-16-2023 Cognitive function Voice/Name [facility] Work Phone: 02-13-2023 Cognitive function Level Of Cons ciousness Awake;Alert;Appropriate;Follow s Commands [facility] Work Phone: Clinical Notes 12-28-2021 to 11-21-2024 Telephone Encounter - Orin Garcia - 02/18/2024 10:08 AM EDTTelephone Encounter - Orin Garcia - 02/18/2024 10:08 AM EDTTelephone Encounter - Yanelis Guerrero RN - 02/10/2024 3:37 PM EDT Note Date & Type Note Facility 11-21-2024 Note HNO ID: [id number] Author: JESSENIA EVANS RN Service: ? Author Type: Registered Nurse Type: Progress Notes Filed: 11/21/2024 12:04 Note Text: Value Based Care Coordination Chart Review Provider Action / FYI: Defer-[facility]ON PCP Upon review of patient chart, the patient is excluded from Chronic Disease Management Patient is not a candidate for CDM at this time and placed in the following status: Deferred Action taken: No action needed . Jessenia Evans RN November 21, 2024 12:03 PM [facility] 11-21-2024 Note Patient Outreach (AM BC) MORENA PATTON ([id number]) 1960 F Date Time Provider Department 11/21/24 JESSENIA EVANS [facility] During your visit today, we recorded the following information about you: Jessenia Evans RN 11/21/2024 12:04 PM Signed Value Based Care Coordination Chart Review Provider Action / FYI: [facility] PCP Upon review of patient chart, the patient is excluded from Chronic Disease Management Patient is not a candidate for CDM at this time and placed in the following status: Deferred Action taken: No action needed . 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 - triamterene-hydrochlorothiazid e 37.5-25 mg per capsule Take 1 capsule by mouth once daily. - cyanocobalamin, vitamin B-12, 1,000 mcg/mL kit Inject 1,000 mcg intramuscularly once every month. - HYDROcodone-Acetaminophen (NORCO) 7.5-325 mg per tablet - ergocalciferol 50,000 unit capsule (VITAMIN D2, DRISDOL) Take 1 capsule by mouth one time a week. - albuterol HFA (VENTOLIN HFA) 90 mcg/actuation inhaler Inhale 2 Puffs as instructed every 4 hours as needed for Wheezing/Shortness of Breath. - polyethylene glycol 3350 (MIRALAX, GLYCOLAX) 17 gram/dose powder Take 17 g by mouth once daily. Take one (1) capful in 8oz of liquid each day. - magnesium citrate solution Take 148 mL by mouth as directed. Take one bottle each day of the prep, as explained on the instruction sheet provided to you. - bisacodyl EC (DULCOLAX, BISACODYL,) 5 mg EC tablet Take 1 tablet by mouth as directed. Take two (2) each day of the prep, as explained on the instruction sheet provided. - temazepam (RESTORIL) 30 mg cap Take 30 mg by mouth at bedtime as needed. - escitalopram oxalate (LEXAPRO) 10 mg tablet Take 1 tablet by mouth once daily. - cyclobenzaprine (FLEXERIL) 10 mg tablet Take 1 tablet by mouth three times daily as needed. Problem List As Of Date 11/21/2024 Noted Resolved Anemia [D64.9] 08/23/2002 06/17/2016 HTN (hypertension) [I10] LBP (low back pain) [M54.50] 06/17/2016 Anxiety [F41.9] Depression [F32.A] PUD (peptic ulcer disease) [K27.9] Chest pain [R07.9] 11/18/2013 06/17/2016 Major depression, recurrent (HCC) [F33.9] 09/03/2014 Alcohol abuse [F10.10] 05/19/2015 04/27/2019 Acidosis [E87.20] 05/19/2015 05/06/2016 Abnormal LFTs [R79.89] 05/19/2015 06/17/2016 Cocaine abuse [F14.10] 05/19/2015 Iron deficiency anemia secondary to inadequate *06/17/2016 Iron malabsorption [K90.9] 06/17/2016 History of alcohol abuse [F10.11] History of cocaine abuse (HCC) [F14.11] Tobacco use [Z72.0] Iron deficiency anemia [D50.9] Genital herpes [A60.00] Encounter Status:Closed by JESSENIA EVANS on 11/21/24 [facility] 09-04-2024 Note HNO ID: [id number] Author: LISA MOTA MA Service: ? Author Type: Key Bed Installer Type: Progress Notes Filed: 09/04/2024 11:09 Note Text: POPULATION HEALTH NAVIGATION OUTREACH Action/FYI [employer] High Risk No PCP listed. Spoke with patient. She sees Dr. Rachid Hudson. PCP field updated. Requested she contact her insurance carrier to have her attributed to the correct health care team. BP Controlled (<130/80) Mammogram Screening Influenza Vaccine Reason for Outreach Care Gap/HCC or Scheduling Wellness Visits Care Gaps due: N/A Patient Contacted: Spoke to patient/parent/or legal guardian Patient identified by name and : Yes Care Gap/HCC/Scheduling Wellness actions taken: Outside PCP PCP field updated Navigation Signature: Lisa Mota MA September 04, 2024 11:02 AM [facility] 09-04-2024 Note Patient Outreach (NE TNAV) MORENA PATTON ([id number]) 1960 F Date Time Provider Department 09/04/24 LISA MOTAV During your visit today, we recorded the following information about you: Lisa Mota MA 09/04/2024 11:09 AM Signed POPULATION HEALTH NAVIGATION OUTREACH Action/FYI [employer] High Risk No PCP listed. Spoke with patient. She sees Dr. Rachid Hudson. PCP field updated. Requested she contact her insurance carrier to have her attributed to the correct health care team. BP Controlled (<130/80) Mammogram Screening Influenza Vaccine Reason for Outreach Care Gap/HCC or Scheduling Wellness Visits Care Gaps due: N/A Patient Contacted: Spoke to patient/parent/or legal guardian Patient identified by name and : Yes Care Gap/HCC/Scheduling Wellness actions taken: Outside PCP PCP field updated Navigation Signature: Lisa Mota MA September 04, 2024 11:02 AM Allergies As of Date: 09/04/2024 Noted Allergy Reaction NSAIDS (NON-STEROIDAL ANTI-INFLAM*11/20/2013 14 - Other: See Comments Comments: Bleeding ulcer Date Reviewed: 12/01/2023 Reviewed by: Gray Heck RN - Fully Assessed Reason for Visit: Population Health Navigation Outreach [3910] Cmt: [place] High Risk - Attempt 1 Prescriptions as of 09/04/2024 - omeprazole (PRILOSEC) 40 mg capsule Take 1 capsule by mouth once daily. - triamterene-hydrochlorothiazid e 37.5-25 mg per capsule Take 1 capsule by mouth once daily. - cyanocobalamin, vitamin B-12, 1,000 mcg/mL kit Inject 1,000 mcg intramuscularly once every month. - HYDROcodone-Acetaminophen (NORCO) 7.5-325 mg per tablet - ergocalciferol 50,000 unit capsule (VITAMIN D2, DRISDOL) Take 1 capsule by mouth one time a week. - albuterol HFA (VENTOLIN HFA) 90 mcg/actuation inhaler Inhale 2 Puffs as instructed every 4 hours as needed for Wheezing/Shortness of Breath. - polyethylene glycol 3350 (MIRALAX, GLYCOLAX) 17 gram/dose powder Take 17 g by mouth once daily. Take one (1) capful in 8oz of liquid each day. - magnesium citrate solution Take 148 mL by mouth as directed. Take one bottle each day of the prep, as explained on the instruction sheet provided to you. - bisacodyl EC (DULCOLAX, BISACODYL,) 5 mg EC tablet Take 1 tablet by mouth as directed. Take two (2) each day of the prep, as explained on the instruction sheet provided. - temazepam (RESTORIL) 30 mg cap Take 30 mg by mouth at bedtime as needed. - escitalopram oxalate (LEXAPRO) 10 mg tablet Take 1 tablet by mouth once daily. - cyclobenzaprine (FLEXERIL) 10 mg tablet Take 1 tablet by mouth three times daily as needed. Problem List As Of Date 09/04/2024 Noted Resolved Anemia [D64.9] 08/23/2002 06/17/2016 HTN (hypertension) [I10] LBP (low back pain) [M54.50] 06/17/2016 Anxiety [F41.9] Depression [F32.A] PUD (peptic ulcer disease) [K27.9] Chest pain [R07.9] 11/18/2013 06/17/2016 Major depression, recurrent (HCC) [F33.9] 09/03/2014 Alcohol abuse [F10.10] 05/19/2015 04/27/2019 Acidosis [E87.20] 05/19/2015 05/06/2016 Abnormal LFTs [R79.89] 05/19/2015 06/17/2016 Cocaine abuse [F14.10] 05/19/2015 Iron deficiency anemia secondary to inadequate *06/17/2016 Iron malabsorption [K90.9] 06/17/2016 History of alcohol abuse [F10.11] History of cocaine abuse (HCC) [F14.11] Tobacco use [Z72.0] Iron deficiency anemia [D50.9] Genital herpes [A60.00] Encounter Status:Closed by LISA MOTA on 09/04/24 [facility] 06-09-2024 Note HNO ID: [id number] Author: RUTH RAYMUNDO MA Service: ? Author Type: Key Bed Installer Type: Progress Notes Filed: 06/09/2024 15:33 Note Text: POPULATION HEALTH NAVIGATION OUTREACH Action/FYI Patient returning my call Medication Adherence Discuss/Due for: Questionable Attribution Routed to [place] team to confirm outside care Outcome: 1st attempt - Spoke to patient Patient hung up the phone prior to discussing Attribution /PCP - called patient back, left a message informing Navigator was not a car scrubber Reason for Outreach Med Adherence Patient Contacted: Unable or unnecessary to reach patient: Left message Navigation Signature: Ruth Raymundo MA June 09, 2024 3:30 PM [facility] 06-09-2024 Note HNO ID: [id number] Author: RUTH RAYMUNDO MA Service: ? Author Type: Key Bed Installer Type: Progress Notes Filed: 06/09/2024 14:59 Note Text: POPULATION HEALTH NAVIGATION OUTREACH Action/FYI Medication Adherence Discuss/Due for: Questionable Attribution Routed to [place] team to confirm outside care Outcome: 1st attempt - Left Message 2nd attempt - No MyChart Reason for Outreach Med Adherence Patient Contacted: Unable or unnecessary to reach patient: Left message Navigation Signature: Ruth Raymundo MA June 09, 2024 2:41 PM [facility] 06-09-2024 Note HNO ID: [id number] Author: ?, ?, ? Service: ? Author Type: ? Type: Progress Notes Filed: 06/09/2024 14:59 Note Text: Morena Patton is identified through a medication adherence outreach initiative based on pharmacy claims data from [employer] (insurer) for Statin medication(s). Patient is reviewed 06/09/24 due to medication adherence concerns with the following medications (name, strength, sig): Atorvastatin 40mg take 1 tablet every day. Per reconcile dispense, last fill date and days supply: last filled 03/22/24 for 30 day supply due 04/29/24 Outcome of review/outreach: (choose outcome source and status) - routed to [place] team to confirm outside care Talia Fine (International Exchange Coordinator) [facility] 06-09-2024 Note Patient Outreach ([facility]) MORENA PATTON ([id number]) 1960 F Date Time Provider Department 06/09/24 NO PCP [facility]PO[facility] During your visit today, we recorded the following information about you: Babatunde BonillaInternational Exchange CoordinatorTalia Delacruz 06/09/2024 2:59 PM Signed Morena Patton is identified through a medication adherence outreach initiative based on pharmacy claims data from [employer] (insurer) for Statin medication(s). Patient is reviewed 06/09/24 due to medication adherence concerns with the following medications (name, strength, sig): Atorvastatin 40mg take 1 tablet every day. Per reconcile dispense, last fill date and days supply: last filled 03/22/24 for 30 day supply due 04/29/24 Outcome of review/outreach: (choose outcome source and status) - routed to [place] team to confirm outside care Talia Fine (International Exchange Coordinator) Ruth Raymundo MA 06/09/2024 2:59 PM Signed POPULATION HEALTH NAVIGATION OUTREACH Action/FYI Medication Adherence Discuss/Due for: Questionable Attribution Routed to [place] team to confirm outside care Outcome: 1st attempt - Left Message 2nd attempt - No MyChart Reason for Outreach Med Adherence Patient Contacted: Unable or unnecessary to reach patient: Left message Navigation Signature: Ruth Raymundo MA June 09, 2024 2:41 PM Ruth Raymundo MA 06/09/2024 3:33 PM Signed POPULATION HEALTH NAVIGATION OUTREACH Action/FYI Patient returning my call Medication Adherence Discuss/Due for: Questionable Attribution Routed to [place] team to confirm outside care Outcome: 1st attempt - Spoke to patient Patient hung up the phone prior to discussing Attribution /PCP - called patient back, left a message informing Navigator was not a car scrubber Reason for Outreach Med Adherence Patient Contacted: Unable or unnecessary to reach patient: Left message Navigation Signature: Ruth Raymundo MA June 09, 2024 3:30 PM Allergies As of Date: 06/09/2024 Noted Allergy Reaction NSAIDS (NON-STEROIDAL ANTI-INFLAM*11/20/2013 14 - Other: See Comments Comments: Bleeding ulcer Date Reviewed: 12/01/2023 Reviewed by: Gray Heck RN - Fully Assessed Reason for Visit: Allied Health Visit [5] Cmt: Medication Adherence Outreach Prescriptions as of 06/09/2024 - omeprazole (PRILOSEC) 40 mg capsule Take 1 capsule by mouth once daily. - triamterene-hydrochlorothiazid e 37.5-25 mg per capsule Take 1 capsule by mouth once daily. - cyanocobalamin, vitamin B-12, 1,000 mcg/mL kit Inject 1,000 mcg intramuscularly once every month. - HYDROcodone-Acetaminophen (NORCO) 7.5-325 mg per tablet - ergocalciferol 50,000 unit capsule (VITAMIN D2, DRISDOL) Take 1 capsule by mouth one time a week. - albuterol HFA (VENTOLIN HFA) 90 mcg/actuation inhaler Inhale 2 Puffs as instructed every 4 hours as needed for Wheezing/Shortness of Breath. - polyethylene glycol 3350 (MIRALAX, GLYCOLAX) 17 gram/dose powder Take 17 g by mouth once daily. Take one (1) capful in 8oz of liquid each day. - magnesium citrate solution Take 148 mL by mouth as directed. Take one bottle each day of the prep, as explained on the instruction sheet provided to you. - bisacodyl EC (DULCOLAX, BISACODYL,) 5 mg EC tablet Take 1 tablet by mouth as directed. Take two (2) each day of the prep, as explained on the instruction sheet provided. - temazepam (RESTORIL) 30 mg cap Take 30 mg by mouth at bedtime as needed. - escitalopram oxalate (LEXAPRO) 10 mg tablet Take 1 tablet by mouth once daily. - cyclobenzaprine (FLEXERIL) 10 mg tablet Take 1 tablet by mouth three times daily as needed. Problem List As Of Date 06/09/2024 Noted Resolved Anemia [D64.9] 08/23/2002 06/17/2016 HTN (hypertension) [I10] LBP (low back pain) [M54.50] 06/17/2016 Anxiety [F41.9] Depression [F32.A] PUD (peptic ulcer disease) [K27.9] Chest pain [R07.9] 11/18/2013 06/17/2016 Major depression, recurrent (HCC) [F33.9] 09/03/2014 Alcohol abuse [F10.10] 05/19/2015 04/27/2019 Acidosis [E87.20] 05/19/2015 05/06/2016 Abnormal LFTs [R79.89] 05/19/2015 06/17/2016 Cocaine abuse [F14.10] 05/19/2015 Iron deficiency anemia secondary to inadequate *06/17/2016 Iron malabsorption [K90.9] 06/17/2016 History of alcohol abuse [F10.11] History of cocaine abuse (HCC) [F14.11] Tobacco use [Z72.0] Iron deficiency anemia [D50.9] Genital herpes [A60.00] Encounter Status:Closed by RUTH RAYMUNDO on 06/09/24 [facility] 06-08-2024 Note ORIGINAL EXAMINATION: MRI OF THE BRAIN WITHOUT AND WITH CONTRAST 06/08/2024 8:59 am TECHNIQUE: Multiplanar multisequence MRI of the head/brain was performed without and with the administration of intravenous contrast. COMPARISON: MRI brain 05/15/2018. HISTORY: ORDERING SYSTEM PROVIDED HISTORY: Reason for Exam: Trigeminal autonomic cephalalgia FINDINGS: INTRACRANIAL STRUCTURES/VENTRICLES: There is no acute infarct. The ventricles sulci are within normal limits of size. There are few scattered punctate foci of increased T2 signal in the periventricular white matter bilaterally. No mass, hemorrhage or restricted diffusion. No lesion is identified along the expected course of either trigeminal complex. No brainstem or posterior fossa lesion. No area of abnormal contrast enhancement. ORBITS: The visualized portion of the orbits demonstrate no acute abnormality. SINUSES: The visualized paranasal sinuses and mastoid air cells demonstrate no acute abnormality. BONES/SOFT TISSUES: The bone marrow signal intensity appears normal. The soft tissues demonstrate no acute abnormality. No definite parotid lesion. IMPRESSION: No acute intracranial finding. No evidence of a cause for trigeminal neuralgia. Interpreted by: Randall Lay Preliminary Report By: Randall Lay Electronically signed By Randall Lay Dictated Date: 06/08/2024 9:03:10 AM Prelim Date: 06/08/2024 9:05:45 AM Sign Date: 06/08/2024 9:05:45 AM Ordering Provider: [facility] 06-08-2024 Note ORIGINAL EXAMINATION: MRA OF THE NECK WITHOUT CONTRAST 06/08/2024 9:50 am TECHNIQUE: Multiplanar multisequence MRA of the neck was performed without the administration of intravenous contrast. Stenosis of the internal carotid arteries measured using NASCET criteria. COMPARISON: None. HISTORY: ORDERING SYSTEM PROVIDED HISTORY: Reason for Exam: Trigeminal autonomic cephalalgia FINDINGS: CAROTID ARTERIES: No dissection, arterial injury, or hemodynamically significant stenosis by NASCET criteria. VERTEBRAL ARTERIES: No dissection, arterial injury, or significant stenosis. IMPRESSION: No significant arterial stenosis in the neck. Interpreted by: Randall Lay Preliminary Report By: Randall Lay Electronically signed By Randall Lay Dictated Date: 06/08/2024 10:07:02 AM Prelim Date: 06/08/2024 10:07:33 AM Sign Date: 06/08/2024 10:07:33 AM Ordering Provider: [facility] 06-08-2024 Note ORIGINAL EXAMINATION: MRA OF THE HEAD WITHOUT CONTRAST 06/08/2024 9:50 am TECHNIQUE: MRA of the head was performed utilizing [id number] imaging with MIP images. No intravenous contrast was administered. COMPARISON: None HISTORY: ORDERING SYSTEM PROVIDED HISTORY: Reason for Exam: Trigeminal autonomic cephalalgia FINDINGS: ANTERIOR CIRCULATION: No significant stenosis of the intracranial internal carotid, anterior cerebral, or middle cerebral arteries. POSTERIOR CIRCULATION: No significant stenosis of the vertebral, basilar, or posterior cerebral arteries. There is origin of the right posterior cerebral artery. IMPRESSION: No aneurysm or significant large vessel stenosis. Interpreted by: Randall Lay Preliminary Report By: Randall Lay Electronically signed By Randall Lay Dictated Date: 06/08/2024 10:05:05 AM Prelim Date: 06/08/2024 10:06:50 AM Sign Date: 06/08/2024 10:06:50 AM Ordering Provider: [facility] 02-28-2024 Note HNO ID: [id number] Author: KERVIN BROWN RN Service: ? Author Type: Registered Nurse Type: Progress Notes Filed: 03/22/2024 18:33 Note Text: CC [facility] NURSE - CHART REVIEW Provider [facility] Action 03/23/2023 presented to non [facility] ED with complaint of abdominal pain. Documentation of encounter indicates pt reported pain has been present for years. Patient declined participation in further assessment. Pt identified by name and . Reason for Review: Payor request Patient Attributed To: QAE Payer: AEZackerySHANICE Chart Review For: Utilization: Avoidable ED Total Patient High CostTotal Patient High Cost {HIGH COST:[id number]) Quality measure review Payor request for assistance Action Taken: Data submitted to payor Kervin Brown RN February 28, 2024 7:14 AM [facility] 02-28-2024 Note Patient Outreach (AM [facility] [place] MORENA PATTON ([id number]) 1960 F Date Time Provider Department 02/28/24 KERVIN BROWN During your visit today, we recorded the following information about you: Kervin Brown RN 03/22/2024 6:33 PM Signed [facility] NURSE - CHART REVIEW Provider [facility] Action 03/23/2023 presented to non [facility] ED with complaint of abdominal pain. Documentation of encounter indicates pt reported pain has been present for years. Patient declined participation in further assessment. Pt identified by name and . Reason for Review: Payor request Patient Attributed To: FEROZ Payer: MIKEY Chart Review For: Utilization: Avoidable ED Total Patient High CostTotal Patient High Cost {HIGH COST:984916) Quality measure review Payor request for assistance Action Taken: Data submitted to payor Kervin Brown RN February 28, 2024 7:14 AM Allergies As of Date: 02/28/2024 Noted Allergy Reaction NSAIDS (NON-STEROIDAL ANTI-INFLAM*11/20/2013 14 - Other: See Comments Comments: Bleeding ulcer Date Reviewed: 12/01/2023 Reviewed by: Gray Heck RN - Fully Assessed Prescriptions as of 03/22/2024 - omeprazole (PRILOSEC) 40 mg capsule Take 1 capsule by mouth once daily. - triamterene-hydrochlorothiazid e 37.5-25 mg per capsule Take 1 capsule by mouth once daily. - cyanocobalamin, vitamin B-12, 1,000 mcg/mL kit Inject 1,000 mcg intramuscularly once every month. - HYDROcodone-Acetaminophen (NORCO) 7.5-325 mg per tablet - ergocalciferol 50,000 unit capsule (VITAMIN D2, DRISDOL) Take 1 capsule by mouth one time a week. - albuterol HFA (VENTOLIN HFA) 90 mcg/actuation inhaler Inhale 2 Puffs as instructed every 4 hours as needed for Wheezing/Shortness of Breath. - polyethylene glycol 3350 (MIRALAX, GLYCOLAX) 17 gram/dose powder Take 17 g by mouth once daily. Take one (1) capful in 8oz of liquid each day. - magnesium citrate solution Take 148 mL by mouth as directed. Take one bottle each day of the prep, as explained on the instruction sheet provided to you. - bisacodyl EC (DULCOLAX, BISACODYL,) 5 mg EC tablet Take 1 tablet by mouth as directed. Take two (2) each day of the prep, as explained on the instruction sheet provided. - temazepam (RESTORIL) 30 mg cap Take 30 mg by mouth at bedtime as needed. - escitalopram oxalate (LEXAPRO) 10 mg tablet Take 1 tablet by mouth once daily. - cyclobenzaprine (FLEXERIL) 10 mg tablet Take 1 tablet by mouth three times daily as needed. Problem List As Of Date 02/28/2024 Noted Resolved Anemia [D64.9] 08/23/2002 06/17/2016 HTN (hypertension) [I10] LBP (low back pain) [M54.50] 06/17/2016 Anxiety [F41.9] Depression [F32.A] PUD (peptic ulcer disease) [K27.9] Chest pain [R07.9] 11/18/2013 06/17/2016 Major depression, recurrent (HCC) [F33.9] 09/03/2014 Alcohol abuse [F10.10] 05/19/2015 04/27/2019 Acidosis [E87.20] 05/19/2015 05/06/2016 Abnormal LFTs [R79.89] 05/19/2015 06/17/2016 Cocaine abuse [F14.10] 05/19/2015 Iron deficiency anemia secondary to inadequate *06/17/2016 Iron malabsorption [K90.9] 06/17/2016 History of alcohol abuse [F10.11] History of cocaine abuse (HCC) [F14.11] Tobacco use [Z72.0] Iron deficiency anemia [D50.9] Genital herpes [A60.00] Encounter Status:Closed by KERVIN BROWN on 03/22/24 [facility] 02-18-2024 Telephone encounter Note Called patient, 3 identifiers obtained. Patient was unable to talk at this time. Instructed patient to call [employer] at [phone]. Asked patient to reference #[phone] when calling back to our office. Ok to relay message below from Anamaria Guerrero RN. [email or web address] 02-18-2024 Miscellaneous Notes Called patient, 3 identifiers obtained. Patient was unable to talk at this time. Instructed patient to call [email or web address] [facility] at [phone]. Asked patient to reference #[phone] when calling back to our office. Ok to relay message below from Anamaria Guerrero RN. Unable to leave a message, voicemail is full. If patient calls back please ask the need for syringes, please encourage patient to keep 02/24/24 appt. Thank you. documented in this encounter [facility] 02-10-2024 Telephone encounter Note Unable to leave a message, voicemail is full. If patient calls back please ask the need for syringes, please encourage patient to keep 02/24/24 appt. Thank you. [facility] 01-21-2024 Note Outreach Team ) Contact Details: Outbound call. Scheduling declined. Care Gaps Scheduling Medicare AWV / PCP Visit: AWV declined Eye Exam: Not due Mammogram: Due; needs order. [facility] 01-21-2024 Telephone encounter Note Outreach Team ([phone]) Contact Details: Outbound call. Scheduling declined. Care Gaps Scheduling Medicare AWV / PCP Visit: AWV declined Eye Exam: Not due Mammogram: Due; needs order. [facility] 01-21-2024 Miscellaneous Notes Outreach Team ([phone]) Contact Details: Outbound call. Scheduling declined. Care Gaps Scheduling Medicare AWV / PCP Visit: AWV declined Eye Exam: Not due Mammogram: Due; needs order. documented in this encounter [facility] 01-06-2024 Telephone encounter Note Images from the original note were not included. Patient was identified by name and date of and phone number. Advised pt that she needs to be seen for refill of gabapentin. Verbalized understanding, new PCP appointment scheduled. Pt would like to know if she can have referral to pain management. Order pended if appropriate. December 23, 2023 Hilton Johnson MD 12/23/23 7:53 AM Note OARRS reviewed. This is the last prescription that I will refill on behalf of this patietn Future Appointments (next 10) Provider Department Center 02/24/2024 1:00 PM (Arrive by 12:50 PM) Randall Hodgson MD [facility] 01-06-2024 Miscellaneous Notes Images from the original note were not included. Patient was identified by name and date of and phone number. Advised pt that she needs to be seen for refill of gabapentin. Verbalized understanding, new PCP appointment scheduled. Pt would like to know if she can have referral to pain management. Order pended if appropriate. December 23, 2023 Hilton Johnson MD 12/23/23 7:53 AM Note OARRS reviewed. This is the last prescription that I will refill on behalf of this patietn Future Appointments (next 10) Provider Department [place] 02/24/2024 1:00 PM (Arrive by 12:50 PM) Randall Hodgson MD [facility] documented in this encounter [facility] 12-23-2023 Telephone encounter Note OARRS reviewed. This is the last prescription that I will refill on behalf of this patietn [facility] 12-23-2023 Miscellaneous Notes OARRS reviewed. This is the last prescription that I will refill on behalf of this patietn documented in this encounter [facility] 11-16-2023 Discharge summary Note Date/Time November 16, 2023 2:15pm [facility] Medical Records Department [address] [place] [address] Emergency Department Summary 11/16/23 MR#: [id number] Acct: [id number] Name: MORENA PATTON Rep #:[id number] : 1960 63 From: Charly Nichols PCP: Care Physician,No Primary Status :REG ER Location: ED HPI History of Present Illness Chief Complaint: Chest Pain Informant: patient Narrative Narrative: Presenting worsening dyspnea intermittent left-sided chest pain for the last 4 days. Reports been having it for a while. Recent cough none currently. No fevers. No radicular pain. States has tingling in her hands and feet. Denies diabetes history. Denies any cardiac history. Denies asthma or COPD. Denies recent travel or surgeries. States symptoms worsen when she gets up and walks around. No history of PE or DVT. She states approximate 4 months ago was admitted to [facility] for syncope. She had a Holter monitor sent to her home, and does not know results. Patient that she does not ambulate with any assistance. She drove here for evaluation. Prior similar symptoms: Yes PFSH PFSH Medical History ADHD (attention deficit hyperactivity disorder) Anemia Anxiety and depression B12 deficiency Chronic pain ETOH abuse Fall History of GI bleed Hypertension Insomnia Iron (Fe) deficiency anemia PUD (peptic ulcer disease) Syncope TMJ (temporomandibular joint syndrome) Tobacco use Home Medications temazepam 30 mg capsule 30 mg PO QHS 03/16/16 [History Last Taken 03/15/16] rollator walker with seat #1 ea 10/09/20 [Rx Last Taken Unknown] cyclobenzaprine 10 mg tablet 20 mg PO TID 10/24/20 [History Last Taken Unknown] cyanocobalamin (vitamin B-12) 1,000 mcg/mL injection solution 1,000 mcg IM Q30D #1 mL 12/20/20 [Rx Last Taken Unknown] diclofenac sodium 1 % topical gel 4 g topical .QID #100 grams 03/03/21 [Rx Last Taken Unknown] omeprazole 40 mg capsule,delayed release 40 mg PO DAILY #90 caps 03/03/21 [Rx Last Taken Unknown] syringe with needle 1 mL 25 gauge x 1 #100 ea 03/05/21 [History Last Taken Unknown] albuterol sulfate 90 mcg/actuation aerosol inhaler 2 puff inhalation Q4H PRN PRNSOB, wheezing #8.5 grams 04/16/21 [Rx Last Taken Unknown] plecanatide 3 mg tablet (Trulance) 3 mg DAILY 06/21/21 [History Last Taken Unknown] valacyclovir 500 mg tablet (Valtrex) 500 mg PO DAILY Herpes Flare #90 tabs 10/28/21 [Rx Last Taken Unknown] ergocalciferol (vitamin D2) 1,250 mcg (50,000 unit) capsule 50,000 unit PO Q2W 11/26/21 [History Last Taken Unknown] bupropion HCl 300 mg 24 hr tablet, extended release 300 mg PO QAM #60 tabs 02/16/23 [Rx Last Taken Unknown] cyanocobalamin (vitamin B-12) 500 mcg tablet 1,000 mcg (2 x 500 mcg) PO BREAKFAST 30 days #60 tabs 02/16/23 [Rx Last Taken Unknown] ferrous gluconate 324 mg (37.5 mg iron) tablet 324 mg PO BIDCM 30 days #60 tabs 02/16/23 [Rx Last Taken Unknown] lidocaine 5 % topical patch 1 patch topical DAILY 14 days #14 ea 02/16/23 [Rx Last Taken Unknown] triamterene 37.5 mg-hydrochlorothiazide 25 mg capsule 1 cap PO DAILY 30 days #90caps 02/16/23 [Rx Last Taken Unknown] Allergy/AdvReac Type Severity Reaction Status Date / Time buprenorphine [From [facility]] Allergy Rash Verified 11/16/23 13:39 NSAIDS (Non-Steroidal AdvReac Nausea Verified 11/16/23 13:39 Anti-Inflamma Family History Father Myocardial infarction Alcohol abuse Mother CVA (cerebral vascular accident) Hypertension Thrombosis Alcohol abuse Sister Lupus Surgical History H/O gastric bypass Hx of bariatric surgery S/P Social History household members: other details: grandson housing: house current occupational status: retired and disabled history of recent travel: No Smoking Status: Former smoker Smokeless tobacco user: other alcohol intake: current alcohol intake frequency: 3 or more drinks per day details: Patient reports history of at 2-tall boys daily at least. substance use type: does not use what type of physical activity do you participate in: none and walking seatbelt use: always do you feel safe at home: Yes additional social history: single ROS ROS ED Constitutional Constitutional ED: Denies chills, fever(s) or sweats Eyes Eyes: Denies change in vision ENT ENT ED: Denies dysphagia or sore throat Cardiovascular Cardiovascular: Reports chest pain; Denies leg edema, palpitations or racing heartbeat Respiratory/Chest Respiratory/Chest: Reports cough and dyspnea on exertion; Denies dyspnea Gastrointestinal Gastrointestinal: Denies abdominal pain, diarrhea, nausea or vomiting Genitourinary Genitourinary ED: Denies dysuria, hematuria or urinary frequency Musculoskeletal Musculoskeletal: Denies back pain, extremity pain or neck pain Integumentary Denies rash or wounds Neurologic Neurologic: Denies headache(s), paresthesias or weakness EXAM Physical Exam Const Vital Signs: 11/16/23 13:37 11/16/23 14:37 11/16/23 15:00 Temperature 97.8 F Temperature Source Temporal Pulse Rate 103 H 83 80 Respiratory Rate 16 22 H 18 Blood Pressure 154/92 H 129/80 H 126/74 H Blood Pressure Mean 112 96 91 Pulse Ox 100 98 98 Oxygen Delivery Method Room Air Room Air Room Air 11/16/23 16:02 11/16/23 16:30 11/16/23 17:00 Temperature Temperature Source Pulse Rate 76 83 73 Respiratory Rate 16 19 H 17 Blood Pressure 129/84 H 126/85 H Blood Pressure Mean 99 99 Pulse Ox 97 Oxygen Delivery Method 11/16/23 17:01 11/16/23 17:15 11/16/23 17:16 Temperature Temperature Source Pulse Rate 73 79 78 Respiratory Rate 20 H 17 19 H Blood Pressure 134/78 H 106/78 Blood Pressure Mean 91 89 Pulse Ox 100 99 98 Oxygen Delivery Method 11/16/23 18:00 Temperature Temperature Source Pulse Rate 60 Respiratory Rate 16 Blood Pressure 117/75 Blood Pressure Mean 89 Pulse Ox 99 Oxygen Delivery Method Room Air Positive well nourished and well developed General Appearance ED: well developed and NAD HEENT Reports moist mucous membranes normocephalic and atraumatic Eyes PERRL, EOMs intact bilaterally and conjunctivae normal General Eye ED: Yes normal appearance of both eyes Neck no lymphadenopathy and supple General: Negative for tenderness Chest Wall Chest: Negative for tenderness Resp normal respiratory effort and normal air movement Effort and Inspection: symmetric chest movement; Negative for respiratory distress Cardio regular rate, regular rhythm and no murmurs Peripheral Pulses: pulses 2+ throughout GI normal to inspection, nondistended, normoactive bowel sounds and non-tender Palpation: Negative for guarding or rebound tenderness present Back/Spine no CVA tenderness and no thoracic nor lumbar tenderness Extremity normal to inspection General Extremety ED: Negative for edema or tenderness General Extremity: Negative for edema Neuro oriented x3, CN's II-XII intact bilaterally and no sensory deficits noted Sensorium / Orientation: awake and alert Skin no rashes or lesions noted and no wounds MDM MDM MDM Narrative Medical decision making narrative: Interventions / MDM: Differential diagnosis: Atypical chest pain, syncope Diagnosis considered but do not suspect: ACS however EKG troponins negative. PEhowever D-dimer negative. My EKG interpretation: Sinus rate of 89, no ST changes isolated T wave flattening in aVL. Imaging independently reviewed and interpreted by myself: 2 view chest x-ray: Noacute process also read by radiology. External documents reviewed: N/A Test considered but not ordered:N/A ED course: Patient vague complaints and reports worsening dyspnea intermittent left-sided chest pain has had syncopal episodes however none recently. EKG obtained nonspecific T wave flattening aVL. Normal QTc. Cardiac workup initiated D-dimer due to dyspnea with history of syncope. Vitals are stable. Initial troponin negative D-dimer -2 view chest x-ray ordered returning negative. Labs stable hemoglobin 11.5 creatinine normal 1.05. Electrolytes allnormal. Clinically stable reevaluation. Awaiting delta troponin. 1700 delta troponin negative. Patient ambulated with pulse ox start 100% down to 97%. No return of symptoms. Patient currently does not have established PCP. She is given follow-up with on-call PCP. Discussed strict return precautions. However with negative workup, discussed further workup as an outpatient. Reported recent Holter monitor as an outpatient. Discussed possible need for stress test. All questions were answered. Re-evaluation: stable Disposition discussed with patient/family/significant other: Patient Case discussed with consulting clinician: N/A This note was generated with [employer] dictation software. It may contain incorrectwords, spelling, and punctuation that were not noted in checking the note beforesigning. Lab Data Attestation: I reviewed the patient's lab results. Labs: Laboratory Results - last 24 hr 11/16/23 11/16/23 14:00 16:37 WBC 5.3 RBC 4.98 Hgb 11.5 L Hct 37.1 MCV 74.5 L MCH 23.1 L MCHC 31.0 L RDW Std Deviation 49.6 H RDW Coeff of Adelia 18.6 H Plt Count 396 MPV 9.2 Immature Gran % (Auto) 0.200 Neut % (Auto) 33.4 L Lymph % (Auto) 57.5 H [place] % (Auto) 6.8 Eos % (Auto) 1.7 Baso % (Auto) 0.4 Absolute Neuts (auto) 1.8 L Absolute Lymphs (auto) 3.06 Nucleated RBC % 0 D-Dimer Quant (PE/DVT) 0.37 Sodium 140 Potassium 3.7 Chloride 110 H Carbon Dioxide 25.0 Anion Gap 5 BUN 15 Creatinine 1.04 H Estim Creat Clear Calc 51.83 Est GFR (MDRD) Af Amer 69 Est GFR (MDRD) Non-Af 57 L BUN/Creatinine Ratio 14.4 Glucose 113 H Calcium 9.3 Troponin I High Sens 29 28 Radiography Diagnostic Testing: Clinical Impression(s) from Imaging Studies Chest X-Ray 11/16/23 15:15 IMPRESSION: Normal x-ray examination of the chest. Electronically Signed: Javad Del Cid MD at 15:27 EDT , Discharge Plan Triage Chief Complaint: Chest Pain ED Provider: Charly Almonte Dx/Rx/DC Orders Clinical Impression: Shortness of breath, Syncope, Chest pain Instructions: ED Chest Pain, Uncertain Cause, ED Dyspnea, ED Fainting, Uncertain Cause Prescriptions: No Action (DME) syringe with needle 1 mL 25 gauge x 1 syringe See Rx Instructions .ROUTE .MEDSUPPLY Qty: 100 Rx Instructions: As directed ergocalciferol (vitamin D2) 1,250 mcg (50,000 unit) capsule 50,000 unit PO Q2W temazepam 30 MG capsule 30 mg PO QHS Patient Comments: SLEEP cyclobenzaprine 10 mg tablet 20 mg PO TID Patient Comments: leg spasm Trulance 3 mg tablet 3 mg DAILY lidocaine 5 % Adhesive Patch,Medicated 1 patch topical DAILY 14 Days Qty: 14 0RF Protocol: *Topical Application Instructions APPLICATION INSTRUCTIONS: Apply to painful areas ferrous gluconate 324 mg (37.5 mg iron) Tablet 324 mg PO BIDCM 30 Days Qty: 60 0RF cyanocobalamin (vitamin B-12) 500 mcg Tablet 1,000 mcg PO BREAKFAST 30 Days Qty: 60 0RF triamterene-hydrochlorothiazid 37.5-25 mg capsule 1 cap PO DAILY 30 Days Qty: 90 1RF bupropion HCl 300 mg tablet extended release 24 hr 300 mg PO QAM Qty: 60 1RF (DME) rollator walker with seat See Rx Instructions .Route .MEDSUPPLY Qty: 1 0RF Rx Instructions: As directed cyanocobalamin (vitamin B-12) 1,000 mcg/mL solution 1,000 mcg IM Q30D Qty: 1 2RF diclofenac sodium 1 % gel 4 g TOPICAL .QID Qty: 100 1RF Rx Instructions: apply to single knee, ankle, foot; for foot includes sole/toes/top of foot omeprazole 40 mg capsule,delayed release(DR/EC) 40 mg PO DAILY Qty: 90 1RF albuterol sulfate 90 mcg/actuation HFA aerosol inhaler 2 puff INHALATION Q4H PRN PRN (Reason: SOB, wheezing) Qty: 8.5 1RF Patient Comments: BREATHING valacyclovir [Valtrex] 500 mg tablet 500 mg PO DAILY Qty: 90 1RF Primary Care Provider: Care Physician,No Primary Referrals: Alyson Gao MD [Med Staff - Print Controller] - 3-5 Days Care Physician,No Primary [Primary Care Provider] - Activity Restrictions/Additional Instructions: Cardiac workup negative. D-dimer negative. Chest x-ray negative. Hemoglobin 11.5. White count 5.3. Creatinine 1.04. Follow-up as an outpatient as given to further testing. If you have recurrent symptoms, return to the ED for reevaluation. Disposition Disposition: Home, Self Care What to do if you have Problems For any increased pain, shortness of breath, bleeding, nausea or vomiting, chestpain, or any unexpected problems, contact your Primary Care Provider. Call [facility] ([phone]) or report to the closest Emergency Room. Call 911 if necessary. 11/16/231811 <Electronically signed by Charly Nichols> Cosigner Signature (if applicable): CC: No Primary Care Physician ~ Signed [facility] Work Phone: [phone]) 494-223610-27-2023 Telephone encounter Note* Telephone Encounter - Nayana Muir - 05/28/2023 2:21 PM EDT Care Gaps Scheduling Health Maintenence Due: Medicare AWV/PCP Visit: deferred Eye Exam: not due Foot Exam: not due Annual Bloodwork: active orders YOKO: not due [id number] Miscellaneous Notes* Telephone Encounter - Nayana Muir - 05/28/2023 2:21 PM EDT Care Gaps Scheduling Health Maintenence Due: Medicare AWV/PCP Visit: deferred Eye Exam: not due Foot Exam: not due Annual Bloodwork: active orders YOKO: not due documented in this [id number] Discharge summary Author Blaise Tom [facility] March 23, 2023 9:12pm Note Date/Time March 23, 2023 5: 11pm [facility] Medical Records Department [address] [place] [address] Emergency Department Summary 03/23/23 MR#: [id number] Acct: [id number] Name: MORENA PATTON Rep #:[id number] : 1960 63 From: Blaise Tom DO PCP: Care Physician,No Primary Status :REG ER Location: ED HPI HPI - GI History of Present Illness Chief Complaint: Abd Pain Narrative Narrative: 63-year-old female presenting with left-sided abdominal pain. She states he hashad this for years. She states that it radiates from the epigastric region to the left upper quadrant. She arrives with a big open her hand. She apparently was at [facility] and her symptoms worsened. Patient states I cannot take it anymore. States she was recently admitted to the hospital for this and never followed up with anybody as an outpatient. She said her last PCP was at [facility]. Denies fever or chills. Denies constipation or diarrhea. Denies nausea or vomiting. Patient states she was put on some pills last time she was discharged. She does not know what they are and what they were for. At this point she states read my chart I do not want to talk anymore. PFSH PFSH Medical History ADHD (attention deficit hyperactivity disorder) Anemia Anxiety and depression B12 deficiency Chronic pain ETOH abuse Fall History of GI bleed Hypertension Insomnia Iron (Fe) deficiency anemia PUD (peptic ulcer disease) Syncope TMJ (temporomandibular joint syndrome) Tobacco use Home Medications temazepam 30 mg capsule 30 mg PO QHS 03/16/16 [History Last Taken 03/15/16] rollator walker with seat #1 ea 10/09/20 [Rx Last Taken Unknown] cyclobenzaprine 10 mg tablet 20 mg PO TID 10/24/20 [History Last Taken Unknown] cyanocobalamin (vitamin B-12) 1,000 mcg/mL injection solution 1,000 mcg IM Q30D #1 mL 12/20/20 [Rx Last Taken Unknown] diclofenac sodium 1 % topical gel 4 g topical .QID #100 grams 03/03/21 [Rx Last Taken Unknown] omeprazole 40 mg capsule,delayed release 40 mg PO DAILY #90 caps 03/03/21 [Rx Last Taken Unknown] syringe with needle 1 mL 25 gauge x 1 #100 ea 03/05/21 [History Last Taken Unknown] albuterol sulfate 90 mcg/actuation aerosol inhaler 2 puff inhalation Q4H PRN PRNSOB, wheezing #8.5 grams 04/16/21 [Rx Last Taken Unknown] plecanatide 3 mg tablet (Trulance) 3 mg DAILY 06/21/21 [History Last Taken Unknown] valacyclovir 500 mg tablet (Valtrex) 500 mg PO DAILY Herpes Flare #90 tabs 10/28/21 [Rx Last Taken Unknown] ergocalciferol (vitamin D2) 1,250 mcg (50,000 unit) capsule 50,000 unit PO Q2W 11/26/21 [History Last Taken Unknown] bupropion HCl 300 mg 24 hr tablet, extended release 300 mg PO QAM #60 tabs 02/16/23 [Rx Last Taken Unknown] cyanocobalamin (vitamin B-12) 500 mcg tablet 1,000 mcg (2 x 500 mcg) PO BREAKFAST 30 days #60 tabs 02/16/23 [Rx Last Taken Unknown] ferrous gluconate 324 mg (37.5 mg iron) tablet 324 mg PO BIDCM 30 days #60 tabs 02/16/23 [Rx Last Taken Unknown] lidocaine 5 % topical patch 1 patch topical DAILY 14 days #14 ea 02/16/23 [Rx Last Taken Unknown] triamterene 37.5 mg-hydrochlorothiazide 25 mg capsule 1 cap PO DAILY 30 days #90caps 02/16/23 [Rx Last Taken Unknown] Allergy/AdvReac Type Severity Reaction Status Date / Time buprenorphine [From [facility]] Allergy Rash Verified 03/23/23 16:26 NSAIDS (Non-Steroidal AdvReac Nausea Verified 03/23/23 16:26 Anti-Inflamma Family History Father Myocardial infarction Alcohol abuse Mother CVA (cerebral vascular accident) Hypertension Thrombosis Alcohol abuse Sister Lupus Surgical History H/O gastric bypass Hx of bariatric surgery S/P Social History household members: other details: grandson housing: house current occupational status: retired and disabled history of recent travel: No Smoking Status: Light Smoker (<10/day) Smokeless tobacco user: other alcohol intake: current alcohol intake frequency: 3 or more drinks per day details: Patient reports history of at 2-tall boys daily at least. substance use type: does not use what type of physical activity do you participate in: none and walking seatbelt use: always do you feel safe at home: Yes additional social history: single ROS ROS ED Constitutional Constitutional ED: Denies chills, fever(s) or sweats Eyes Eyes: Denies blurry vision or change in vision ENT ENT ED: Denies ear pain or sore throat Cardiovascular Cardiovascular: Denies chest pain, palpitations or racing heartbeat Respiratory/Chest Respiratory/Chest: Denies cough, dyspnea or sputum Gastrointestinal Gastrointestinal: Reports abdominal pain; Denies constipation, diarrhea, nausea or vomiting Genitourinary Genitourinary ED: Denies dysuria, hematuria or urinary frequency Musculoskeletal Musculoskeletal: Denies arthralgias, myalgias or neck pain Integumentary Denies abscess, Abrasions or rash Neurologic Neurologic: Denies headache(s), paresthesias or weakness Psychiatric Psychiatric: Denies anxiety, depression, suicidal ideation or suicidal thoughts Endocrine Endocrinology: Denies polydipsia or polyuria EXAM Physical Exam Const Vital Signs: 03/23/23 16:26 03/23/23 18:25 03/23/23 20:29 Temperature 98 F 98.1 F Temperature Source Temporal Temporal Pulse Rate 89 71 Respiratory Rate 14 18 Blood Pressure 161/94 H 139/92 H 139/94 H Blood Pressure Mean 116 107 109 Pulse Ox 100 100 98 Oxygen Delivery Method Room Air Room Air 03/23/23 21:05 Temperature Temperature Source Pulse Rate 70 Respiratory Rate 16 Blood Pressure 133/87 H Blood Pressure Mean 102 Pulse Ox 100 Oxygen Delivery Method Room Air Positive well nourished General Appearance ED: NAD; Negative for pallor HEENT Reports moist mucous membranes normocephalic and atraumatic Eyes PERRL Resp normal respiratory effort and clear to auscultation bilaterally Auscultation: Negative for rales, rhonchi or wheezes Cardio regular rate and regular rhythm GI Palpation: tender epigastric and LLQ Extremity full ROM Neuro CN's II-XII intact bilaterally, moves all extremities and no sensory deficits noted Sensorium / Orientation: alert Psych mental status grossly normal and thought process normal Skin no wounds General Skin Exam: Negative for jaundice or pallor MDM MDM MDM Narrative Medical decision making narrative: Patient presenting with left-sided abdominal pain and epigastric pain. She states that she did have this problem for years. She [facility] and she presents while drinking a polar pop. No apparent nausea or vomiting. No constipation or diarrhea. She states I cannottake it anymore. Differential includes gastritis, pancreatitis, colitis, diverticulitis, UTI, pyelonephritis. CBC was obtained to assess white blood cell count, hemoglobin, platelets. CMP to assess liver function, renal function, electrolytes. Lipase to assess for pancreatitis. Urinalysis to assess for UTI. Patient was given morphine and Zofran. Ultimately her work-up was normal and all of her labs were unremarkable. I do not believe the patient needs a CT scan. Her vital signs are stable and she is afebrile. I went back to discussed with the patient the fact that her blood work was normal and she states there must be something wrong. I told her that she would need GI follow-up most likely in whoever did her gastric bypass surgery should probably be involved with her care since she had this pain for years. Of note she did finish her 64 ounce polar pop while she was in the ER. Impression: 1. Abdominal pain Lab Data Attestation: I reviewed the patient's lab results. Labs: Laboratory Results - last 24 hr 03/23/23 03/23/23 17:40 20:23 WBC 4.6 RBC 4.77 Hgb 11.5 L Hct 37.1 MCV 77.8 L MCH 24.1 L MCHC 31.0 L RDW Std Deviation 56.7 H RDW Coeff of Adelia 20.6 H Plt Count 225 MPV 9.1 Immature Gran % (Auto) 0.000 Neut % (Auto) 37.9 L Lymph % (Auto) 51.0 H [place] % (Auto) 8.7 Eos % (Auto) 2.0 Baso % (Auto) 0.4 Absolute Neuts (auto) 1.8 L Absolute Lymphs (auto) 2.35 Nucleated RBC % 0 Differential Comment Sodium 140 Potassium 4.0 Chloride 109 H Carbon Dioxide 24.0 Anion Gap 7 BUN 18 Creatinine 1.06 H Estim Creat Clear Calc 50.85 Est GFR (MDRD) Af Amer 67 Est GFR (MDRD) Non-Af 56 L BUN/Creatinine Ratio 17.0 Glucose 85 Calcium 9.1 Total Bilirubin 0.20 AST 17 ALT 22 Alkaline Phosphatase 92 Total Protein 6.7 Albumin 3.2 Globulin 3.5 Albumin/Globulin Ratio 0.9 Lipase 38 Urine Color Yellow Urine Clarity Clear Urine pH 6.0 Ur Specific [place] 1.020 Urine Protein 30 H Urine Glucose (UA) Normal Urine Ketones 15 H Urine Occult Blood 10 H Urine Nitrite Negative Urine Bilirubin Negative Urine Urobilinogen 1 H Ur Leukocyte Esterase 25 H Urine RBC 0-5 SEEN Urine WBC 0-5 SEEN Ur Squamous Epith Cells 0-5 SEEN Amorphous Sediment 1+ URATE Urine Bacteria 0 SEEN Urine Mucus 0 SEEN Discharge Plan Triage Chief Complaint: Abd Pain ED Provider: Blaise Tom Dx/Rx/DC Orders Instructions: ED Abdominal Pain Unkn Cause Fem Prescriptions: No Action (DME) syringe with needle 1 mL 25 gauge x 1 syringe See Rx Instructions .ROUTE .MEDSUPPLY Qty: 100 Rx Instructions: As directed ergocalciferol (vitamin D2) 1,250 mcg (50,000 unit) capsule 50,000 unit PO Q2W temazepam 30 MG capsule 30 mg PO QHS Patient Comments: SLEEP cyclobenzaprine 10 mg tablet 20 mg PO TID Patient Comments: leg spasm Trulance 3 mg tablet 3 mg DAILY lidocaine 5 % Adhesive Patch,Medicated 1 patch topical DAILY 14 Days Qty: 14 0RF Protocol: *Topical Application Instructions APPLICATION INSTRUCTIONS: Apply to painful areas ferrous gluconate 324 mg (37.5 mg iron) Tablet 324 mg PO BIDCM 30 Days Qty: 60 0RF cyanocobalamin (vitamin B-12) 500 mcg Tablet 1,000 mcg PO BREAKFAST 30 Days Qty: 60 0RF triamterene-hydrochlorothiazid 37.5-25 mg capsule 1 cap PO DAILY 30 Days Qty: 90 1RF bupropion HCl 300 mg tablet extended release 24 hr 300 mg PO QAM Qty: 60 1RF (DME) rollator walker with seat See Rx Instructions .Route .MEDSUPPLY Qty: 1 0RF Rx Instructions: As directed cyanocobalamin (vitamin B-12) 1,000 mcg/mL solution 1,000 mcg IM Q30D Qty: 1 2RF diclofenac sodium 1 % gel 4 g TOPICAL .QID Qty: 100 1RF Rx Instructions: apply to single knee, ankle, foot; for foot includes sole/toes/top of foot omeprazole 40 mg capsule,delayed release(DR/EC) 40 mg PO DAILY Qty: 90 1RF albuterol sulfate 90 mcg/actuation HFA aerosol inhaler 2 puff INHALATION Q4H PRN PRN (Reason: SOB, wheezing) Qty: 8.5 1RF Patient Comments: BREATHING valacyclovir [Valtrex] 500 mg tablet 500 mg PO DAILY Qty: 90 1RF Primary Care Provider: Care Physician,No Primary Referrals: Lisa Valiente DO [Med Staff - Active Staff] - 3-5 Days Friend,Sami, DO [Med Staff - Active Staff] - As soon as possible Care Physician,No Primary [Primary Care Provider] - Disposition Disposition: Home, Self Care What to do if you have Problems For any increased pain, shortness of breath, bleeding, nausea or vomiting, chestpain, or any unexpected problems, contact your Primary Care Provider. Call [facility] ([phone]) or report to the closest Emergency Room. Call 911 if necessary. 03/23/232111 <Electronically signed by Blaise Tom DO> Cosigner Signature (if applicable): CC: No Primary Care Physician ~ Signed [facility] Work Phone: [phone] Telephone encounter Note* Telephone Encounter - Sarita Moscoso RN - 03/15/2023 1:13 PM EDT Order pended for provider review & signature. Requested Prescriptions Pending Prescriptions Disp Refills Syringe 23G X 1 3 ML MISC 12 Each 0 Si Syringe once a month. vitamin B-12 (CYANOCOBALAMIN) 1000 MCG/ML injection 12 Each 0 Sig: Inject 1 mL into the muscle once a month. [id number] Miscellaneous Notes* Telephone Encounter - Sarita Moscoso RN - 03/15/2023 1:13 PM EDT Order pended for provider review & signature. Requested Prescriptions Pending Prescriptions Disp Refills Syringe 23G X 1 3 ML MISC 12 Each 0 Si Syringe once a month. vitamin B-12 (CYANOCOBALAMIN) 1000 MCG/ML injection 12 Each 0 Sig: Inject 1 mL into the muscle once a month. * Telephone Encounter - Heather Mariscal - 03/15/2023 10:53 AM EDT Pharmacy requesting medication substitution. Medication not available to order: Cyanocobalamin 1000 MCG/ML KIT Recommended alternative medications: Pharmacy is requesting two separate prescriptions, one for thevitamin B injection solution and the other for the syringe to inject it. Prescribing provider's name: Hilton Johnson MD Pharmacy Name: [facility] documented in this [id number] Telephone encounter Note* Telephone Encounter - Heather Mariscal - 03/15/2023 10:53 AM EDT Pharmacy requesting medication substitution. Medication not available to order: Cyanocobalamin 1000 MCG/ML KIT Recommended alternative medications: Pharmacy is requesting two separate prescriptions, one for thevitamin B injection solution and the other for the syringe to inject it. Prescribing provider's name: Hilton Johnson MD Pharmacy Name: [facility] [id number] Telephone encounter Note* Telephone Encounter - Lisa Ballesteros RN - 03/10/2023 9:34 AM EDT Patient was identified by name and date of . Lisa Ballesteros RN Called patient and relayed message below. Please call and inform patient that her blood work overall looked good. Her hemoglobin is improved and her total body iron stores are still a bit low (though not severely low) so there is no need to for her to get IV iron immediately. Her cholesterol is elevated and I recommend that she start on a s tatin medication (atorvastatin) which she will take daily. A prescription was sent to her pharmacy in . She should repeat her lipid panel sometime in May. Patient verbalized understanding with no further questions. [id number] Miscellaneous Notes* Telephone Encounter - Lsia Ballesteros RN - 03/10/2023 9:34 AM EDT Patient was identified by name and date of . Lisa Ballesteros RN Called patient and relayed message below. Please call and inform patient that her blood work overall looked good. Her hemoglobin is improved and her total body iron stores are still a bit low (though not severely low) so there is no need to for her to get IV iron immediately. Her cholesterol is elevated and I recommend that she start on a s tatin medication (atorvastatin) which she will take daily. A prescription was sent to her pharmacy in . She should repeat her lipid panel sometime in May. Patient verbalized understanding with no further questions. * Telephone Encounter - Hilton Johnson MD - 03/10/2023 7:57 AM EDT Prescribing a statin in response to the elevated cholesterol and total nonHDL cholesterol identified on her lipid panel realizing that the HDL is quite elevated and might indicate some degree of protection against CVD. documented in this [id number] Telephone encounter Note* Telephone Encounter - Hilton Johnson MD - 03/10/2023 7:57 AM EDT Prescribing a statin in response to the elevated cholesterol and total nonHDL cholesterol identified on her lipid panel realizing that the HDL is quite elevated and might indicate some degree of protection against CVD. [id number] Note* Addendum Note - Nichelle Hills - 03/09/2023 2:14 PM EDTAddended by: NICHELLE HILLS on: 03/09/2023 02:14 PM Modules accepted: Orders [id number] Note* Addendum Note - Nichelle Hills - 03/09/2023 2:14 PM EDTAddended by: NICHELLE HILLS on: 03/09/2023 02:14 PM Modules accepted: Orders [id number] Miscellaneous Notes* Addendum Note - Nichelle Hills - 03/09/2023 2:14 PM EDTAddended by: NICHELLE HILLS on: 03/09/2023 02:14 PM Modules accepted: Orders documented in this [id number] History of Present illness Narrative* Orin Garcia - 03/09/2023 10:40 AM EDT Patient identified by name and date of . Blood obtained from arm. * Hilton Jhonson MD - 03/09/2023 9:30 AM EDT Date: 03/09/23 Morena Patton 63 year old, female [id number] CHIEF COMPLAINT: Chief Complaint Patient presents with New patient, to establish relationship Medication Management HPI: Morena Patton is a 63 year old female who presents today to establish primary care and to address her problems and fill medications. She had a Cj en Y in 1999. She states that she developed ailments after that surgery. She does not absorb iron. When it is low she will feel tired and fatigued and light headed. She passes out and feels short of breath. She recently developed a aspen macie taste in her mouth. Patient states that she has constant pain and used to be on medication for this as well as medication to help her sleep that she says always helped her. States that she gets cramps and spasms in her feet and legs. Flexeril was for that. Also numbness. She is supposed to get monthly VIT B12 shots but has not been doing that. She passed out about a week ago. She lives in [place] but came here today because viktoriya really knows me. She ran out of most of her medications and has not been taking them. She passed out last week and picked up some medications at that time. She is now on a heart monitor. She is due to see a pipeline superintendent when she turns in her monitor. She was in the ED on January 30 for abdominal pain. She was discharged on Carafate. She started taking it on 02/24. She was in pain the entire time up until starting to take it. Her pain is now improved but not resolved. She states that she needs to see a smoking pipe repairer and Neurologist and pipeline superintendent. ED Morena Patton is a 62 year old female with a PMHx of hirschsprung's disease, cj-en-y bypass with known GI bleeds and melena with anastomotic ulcers per chart review presenting to the ED for abdominalpain. Pain is chronic with recent worsening, rated severe, described as excrutiating and hollowingme out, waxes and wanes with worsening about 6 times per day, felt over the LUQ, and does not radiate elsewhere. Pain is worsened with excitement/stress, is not worsened with PO intake. Pain is improved with use of omeprazole, lidocaine patches, and 1500- 2000 mg tylenol which she has been taking 4x per day. She has a history of bleeding ulcers and is not anticoagulated. Associated symptoms include nausea, increased salivation, intermittent dark stools though not recently. She endorses worsening of chronic SOB separate from today's complaint, but does describe it as needing to rest after just a couple steps now, and occasoinal fainting spells though not recently CT ABDOM: IMPRESSION: 1. No intramural hematoma or aortic dissection is identified. 2. Enlargement of the ascending aorta measuring up to 4.0 cm, previously 3.9 cm on 09/19/2011. 3. Enlargement of the main pulmonary artery which can be seen in setting of pulmonary hypertension. IMPRESSION: 1. No acute process. 2. Gallstones are suspected. No evidence of acute cholecystitis IMPRESSION Clinical Impression Diagnosis Comment Abdominal pain, unspecified abdominal location [R10.9] Other fatigue [R53.83] Microcytic anemia [D50.9] Calculus of gallbladder without cholecystitis without obstruction [K80.20] Component 12/30/2021 12/31/2021 01/30/2023 WBC 4.4 (L) 4.7 4.3 (L) RBC 4.09 4.17 4.52 Hemoglobin 10.2 (L) 10.5 (L) 10.9 (L) Hematocrit 31.1 (L) 32.1 (L) 34.2 (L) MCV 76 (L) 77 (L) 76 (L) MCH 25.0 (L) 25.3 (L) 24.2 (L) MCHC 32.9 32.8 31.9 (L) Platelet 232 243 296 RDW-CV% 19.2 (H) 19.2 (H) 18.5 (H) MPV 8.2 7.5 7.9 Component 12/28/2021 Ferritin 10.6 . Past Medical History: Diagnosis Date Acute posttraumatic stress disorder : per snapshot Alcohol abuse Anxiety disorder : per snapshot Chronic lower back pain : per snapshot Constipation : per snapshot Depressive disorder, not elsewhere classified Had a few episodes - will follow GERD (gastroesophageal reflux disease) : per snapshot HTN (hypertension) Human papilloma virus infection Mood disorder (HCC) Morbid obesity (HCC) BMI 36 Osteoarthritis of right knee : per snapshot Prediabetes Review of patient's past surgical history indicates: COLPOSCOPY W/CERVICAL BIOPSY AND ECC (05/21/98) mild dysplasia GASTRIC RESTRICTVE PX, W/GASTRIC BYPASS/SHORT * (05/26/00) Shira SECTION (1978) Lost child LAPAROSCOPY (1978) ovarian cystectomy COLONOSCOPY 3- BARIATRIC SURGERY CPG 1999 ESOPHAGOGASTRODUODENOSCOPY (06/14/2019) Procedure: ESOPHAGOGASTRODUODENOSCOPY; Surgeon: Abdullahi David MD; Location: [facility]; Service: Gastroenterology COLONOSCOPY AND ESOPHAGOGASTRODUODENOSCOPY (12/30/2021) Procedure: ESOPHAGOGASTRODUODENOSCOPY AND COLONOSCOPY; Surgeon: Davon Ha MD; Location: [facility]; Service: Gastroenterology Outpatient Medications Marked as Taking for the 03/09/23 encounter (Office Visit) with Hilton Johnson MD Medication Sig Dispense Refill gabapentin (NEURONTIN) 300 MG capsule 1-2 tablets three times daily 180 Capsule 3 Cyanocobalamin 1000 MCG/ML KIT 1 mg by Injection route once a month. 3 Kit 3 vitamin D2 ergocalciferol (DRISDOL) 1.25 MG (15625 UT) capsule Take 1 Capsule by mouth once weekly.12 Capsule 3 sucralfate (Carafate) 1 GM/10ML oral suspension Take 10 mL by mouth 4 times daily. 3600 mL 1 albuterol (PROAIR HFA) inhaler 90 mcg/inh Inhale 2 Puffs every 4 hours as needed for Wheezing. 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 Employer: [employer] Tobacco Use Smoking status: Former Packs/day: 0.33 Years: 25.00 Pack years: 8.25 Types: Cigarettes Smokeless tobacco: Never Tobacco comments: 1 pack last 1-1.5 weeks Substance and Sexual Activity Alcohol use: Yes Comment: hx of ETOH abuse--sober for 3 years, had hx of prior relapses before Drug use: No Comment: not currently but hx of THC and remote hx of cocaine Sexual activity: Yes Partners: Male Other Topics Concern Service No Blood Transfusions Yes Caffeine Concern No Sleep Concern Yes Stress Concern Yes Comment: Just general from post-operative change Weight Concern Yes Special Diet Yes Comment: s/p bypass Back Care Yes Exercise Yes Comment: bike - stair master - treadmill Seat Belt Yes Self-Exams No Social History Narrative Used to work for [email or web address] - retired in 1999 due to her health Review of Systems Constitutional: Positive for fatigue. Negative for appetite change, fever and unexpected weight change. Eyes: Negative for discharge and visual disturbance. Respiratory: Positive for cough and shortness of breath (slightly). Negative for choking, chest tightness, wheezing and stridor. Cardiovascular: Negative for chest pain, palpitations and leg swelling. Gastrointestinal: Positive for abdominal pain. Negative for constipation. Genitourinary: Negative for difficulty urinating. Musculoskeletal: Positive for arthralgias, back pain and myalgias. States that she has constant body pain on top of everything else. Skin: Negative for color change. Neurological: Positive for dizziness (gets dizzy a lot. Dizziness tends to come on when she is sitting). Negative for tremors, speech difficulty and light-headedness. Hematological: Negative for adenopathy. Does not bruise/bleed easily. PHYSICAL EXAMINATION Vitals Recorded in This Encounter 03/09/2023 0907 BP: 116/66 Pulse: 76 Temp: 97.9 F (36.6 C) Temp src: Skin Weight: 164 lb (74.4 kg) Height: 5' 6 (1.676 m) Pain Score: 8 General: Well nourished, well developed, black female in NAD x 3.with a multitude of physical complaints. HEAD: NC/AT. EYES: Nonicteric scleric. PERRL. EOMI. Positive Red Reflex. Fundoscopic Exam - sharp disc margins. Normal C:D ratio. Venous pulsations noted. EARS: External ear/pinna without lesions. Canals patent. TM translucent with visible light reflex bilaterally NOSE: Patent bilaterally. Midline septum. Scant nasal discharge. THROAT: Tongue protrudes midline. Moist mucous membranes. No oropharyngeal erythema or exudate. No tonsillar enlargement. Edentulous NECK: Supple, no adenopathy or thyromegaly. No tenderness to palpation CHEST/LUNGS: Symmetric, nontender. Clear to auscultation in all lung ferrer. No wheeze, rhonchi, rales COR: Regular rate and rhythm. Normal S1/S2. No murmur, rub, gallop. Brisk cap refill. ABDOMEN:Midline scar from xiphoid to umbilicus and down the pubis. BS +, soft, nontender. No HS BACK: No CVAT. No tenderness over the spinous processes or paraspinal muscles. MSK: Normal, pain free ROM of all joints. No erythema or effusions. NEURO: CN 2-12 intact. +/5 muscles strength of all groups. No sensory deficits. INTEG: Without rash or petechia. ASSESSMENT & PLAN Morena Patton is a 63 year old female presents for a comprehensive physical and to [facility]. Diagnoses and all orders for this visit: Routine adult health maintenance Initial history and exam performed. It was impossible to obtain a complete and accurate history butmultiple previous notes and labs were reviewed. Lipid screening - FULL LIPID PROFILE 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-en-Y gastric bypass States that all of her problems began after this. She weighed between 330 - 350 pounds prior to theprocedure. Postoperative malabsorption - FERRITIN - VITAMIN B12 (CYANOCOBALAMIN) - Discontinue: Cyanocobalamin 1000 MCG/ML KIT; 1 mg by Injection route once a month. - VITAMIN D, 25-HYDROXY - vitamin D2 ergocalciferol (DRISDOL) 1.25 MG (91446 UT) capsule; Take 1 Capsule by mouth once weekly. - ZINC - Cyanocobalamin 1000 MCG/ML KIT; 1 mg by Injection route once a month. - COMPLETE BLOOD COUNT W/DIFF - BASIC METABOLIC PANEL She is provided B12 injections to be given weekly. She did this in the past. Anastomotic ulcer S/P gastric bypass - sucralfate (Carafate) 1 GM/10ML oral suspension; Take 10 mL by mouth 4 times daily. She was hospitalized for bleeding at this site in 2019 Calculus of gallbladder without cholecystitis without obstruction This was identified during her most recent ED visit to [facility] On . Generalized abdominal pain This was the reason that she presented to the ED at [facility] on Dizziness - CARDIOLOGY SERVICE REQUEST - ECHOCARDIOGRAM, ADULT SERVICE REQUEST Patient states that she is always dizzy and weak and is currently wearing a Holter monitor and was told that she needs to see a Heater Operator to assess her problem. Prediabetes - HEMOGLOBIN A1C Cervical spondylosis without myelopathy - gabapentin (NEURONTIN) 300 MG capsule; 1-2 tablets three times daily Primary osteoarthritis of right knee Ms. Patton requested other medications during the visit to include Flexeril and something for pain. She stated that Flexeril and Gabapentin helped her in the past. She commented that it is now hard toget medication for pain anymore. There are undoubtedly multiple other concerns that might have beenaddressed at this time but I attempted to help her with ones as noted above and could not get to and direct evaluation or treatment to every one. She has a h/o HTN but her BP was normal today and I did not restart dyazide or lisinopril. She alsomentioned sleep issues and that Temazepam worked well for her. Given that she is being prescribed Gabapentin to restart at this time, I was not inclined to provide prescriptions for this or Flexeril. Immunizations can be addressed at follow up visits. She lives in [place], and I encouraged her to have care established there as she is likely to be admitted to that local hospital if/when she might become acutely ill. She wants to continue care here at [facility] and we will therefore provide herthe referral to Cardiology. She might also benefit from a GI assessment, though I suspect her abdominal pain has multiple possible etiologies behind it (and given that she does not tolerate milk, it could be food intolerance/allergies), perhaps due to adhesions or PUD. Follow up in 3-4 months Hilton Johnson MD, * Nakita Marrero - 03/09/2023 9:07 AM EDT Identification was verified by patient verbalizing her name and date of . Patient at risk for falls:No Falls Risk protocol implemented: No documented in this [id number] Telephone encounter Note* Telephone Encounter - Janae Hemphill - 02/24/2023 10:43 AM EDT Patient is calling about medications that were prescribed for her on 01/30/23 from the ER with [facility]. Her pharmacy states did not receive the prescriptions he wrote for. The prescriptions were for the following medications: Sucralafate Suspension Vitamin D- 50,000 unit Daily Multi Vitamin Patient does not have a PCP on file, and a no show for appointments with gastro as well. Please contact the patient to discuss this issue as well as a plan of action. [id number] Miscellaneous Notes* Telephone Encounter - Janae Hemphill - 02/24/2023 10:43 AM EDT Patient is calling about medications that were prescribed for her on 01/30/23 from the ER with [facility]. Her pharmacy states did not receive the prescriptions he wrote for. The prescriptions were for the following medications: Sucralafate Suspension Vitamin D- 50,000 unit Daily Multi Vitamin Patient does not have a PCP on file, and a no show for appointments with gastro as well. Please contact the patient to discuss this issue as well as a plan of action. documented in this [id number] Discharge summary Author Virginie Aguillon [facility] February 16, 2023 10:56am Note Date/Time February 16, 2023 10:5 7am [facility] Medical Records Department [address] [place] [address] Instructions for Home/Discharge Instructions 02/16/23 1056 MR#: [id number] Acct: [id number] Name: MORENA PATTON Rep #:[id number] : 1960 63 From: Virginie Aguillon MD PCP: Care Physician,No Primary Status :ADM CYRIL Discharge Instructions Diet Discharge Diet: No restrictions Activity Discharge Activity: - (Fall precautions) Follow Up Care Test Results: Test results from this visit will be discussed in further detail at your follow- up appointment, if applicable. Discharge Plan Admission Admit Date/Time: 02/13/23 20:47 Primary Reason for Your Visit: Dizziness and weakness Attending Provider: Virginie Aguillon Primary Care Provider: Care Physician,No Primary Consulting Providers: Jeniffer Campos; Drew Solis Instructions Patient Instructions: ED Fall Prevention Additional Instructions / Restrictions: DISCHARGE INSTRUCTIONS PLEASE READ *Please take this with you to your next doctors appointment* -You have indicated that do not presently have a primary care physician so a prescription for your triamterene hydrochlorothiazide (blood pressure medicine) and Wellbutrin/bupropion have been sent to your preferred pharmacy on file. -You will be provided with a list of primary care physicians, advised to call upon discharge to schedule an establish care appointment for continuity of care and for further work-up for your fatigue -A B12 supplement will be sent into your pharmacy, this can also be obtained [id number] at a pharmacy as you were low on B12, this may help with your energy -An iron supplement will also be sent in to preferred pharmacy on file due to your iron being well, taking supplementation over time also help you feel better. This can at times cause constipation, would advise taking MiraLAX dailyto maintain regular bowel movements if you experience any constipation -A prescription for lidocaine patch will also be sent to your pharmacy to help with your shoulder pain -You will be discharged with instructions for a 30-day heart monitor to evaluatefor any underlying abnormal heart rhythms due to your episode of passing out -A prescription for vestibular rehab outpatient will be given to you as some of your dizzy feeling and balance may be due to your inner ear -Please change positions slowly from lying to standing. When getting out of bedsit on the side of the bed with her legs down for at least 30 seconds before standing. This gives her body time to adjust to the position change. Would also recommend using compression stockings, you can acquire these online or you can discuss with your primary care physician. There are varying strengths and if you are unable to tolerate high strength compression you can try one of the lower strength -It is strongly advised to refrain from alcohol or cannabis use as this likely contributes to imbalance and not feeling well -Please call your primary care provider's office upon discharge to schedule a hospital follow up within 1 week. -For any concerning signs or symptoms please call 911 or proceed to the nearest emergency department Discharge Orders/Prescriptions Prescriptions: New lidocaine 5 % Adhesive Patch,Medicated 1 patch topical DAILY 14 Days Qty: 14 0RF Protocol: *Topical Application Instructions APPLICATION INSTRUCTIONS: Apply to painful areas ferrous gluconate 324 mg (37.5 mg iron) Tablet 324 mg PO BIDCM 30 Days Qty: 60 0RF cyanocobalamin (vitamin B-12) 500 mcg Tablet 1,000 mcg PO BREAKFAST 30 Days Qty: 60 0RF Continued (DME) syringe with needle 1 mL 25 gauge x 1 syringe See Rx Instructions .ROUTE .MEDSUPPLY Qty: 100 Rx Instructions: As directed ergocalciferol (vitamin D2) 1,250 mcg (50,000 unit) capsule 50,000 unit PO Q2W temazepam 30 MG capsule 30 mg PO QHS Patient Comments: SLEEP cyclobenzaprine 10 mg tablet 20 mg PO TID Patient Comments: leg spasm Trulance 3 mg tablet 3 mg DAILY triamterene-hydrochlorothiazid 37.5-25 mg capsule 1 cap PO DAILY 30 Days Qty: 90 1RF bupropion HCl 300 mg tablet extended release 24 hr 300 mg PO QAM Qty: 60 1RF (DME) rollator walker with seat See Rx Instructions .Route .MEDSUPPLY Qty: 1 0RF Rx Instructions: As directed cyanocobalamin (vitamin B-12) 1,000 mcg/mL solution 1,000 mcg IM Q30D Qty: 1 2RF diclofenac sodium 1 % gel 4 g TOPICAL .QID Qty: 100 1RF Rx Instructions: apply to single knee, ankle, foot; for foot includes sole/toes/top of foot omeprazole 40 mg capsule,delayed release(/EC) 40 mg PO DAILY Qty: 90 1RF albuterol sulfate 90 mcg/actuation HFA aerosol inhaler 2 puff INHALATION Q4H PRN PRN (Reason: SOB, wheezing) Qty: 8.5 1RF Patient Comments: BREATHING valacyclovir [Valtrex] 500 mg tablet 500 mg PO DAILY Qty: 90 1RF Discontinued medical marijauna PO Other Ambulatory Orders: 30 Day Event Recorder Preventi (Urgent) Timeframe: 1 Day Facility: [facility] - Location: Cardiovascular Services Ordered By: Dr. Virginie Aguillon Referrals / Follow Up: Care Physician,No Primary [Primary Care Provider] - ( -If you do not have a primary care physician of list of local primary care physicians can be provided for you upon discharge. Please ask for this list prior to discharge) Disposition Disposition (needs filled in before D/C Order can be placed): Home, Self Care 02/16/23 1056<Electronically signed by Virginie Aguillon MD>Virgiine Aguillon MD CC: Dr. Jeniffer Campos MD; Dr. Drew Solis MD; No Primary Care Physician ~ Signed [facility] Work Phone: 1(454) 849-847107-17-2023 Progress note Author Virginie Aguillon [facility] February 15, 2023 2:30pm Note Date/Time February 15, 2023 2:30 pm [facility] Medical Records Department [address] [place] [address] Progress Note - Hospitalist 02/15/23 1422 MR#: [id number] Acct: [id number] Name: MORENA PATTON Rep #:[id number] : 1960 63 From: Virginie Aguillon MD PCP: Care Physician,No Primary Status :ADM CYRIL Location: [place] [address] Reason for Visit Reason for Visit: Diagnoses Syncope and collapse (02/13/23) Subjective Subjective Patient with a spattering of nonspecific complaints including intermittent generalized headache as well as intermittent nausea, sharp pain in left shoulderand left side of abdomen that seem to come around the same time it can last for an hour at a time and are also intermittent in nature. Reports she is feeling better than yesterday and she is sleeping better Objective Data Objective Data Vital Signs: Vital Signs Temp Pulse Resp BP Pulse Ox O2 Del Method 97.4 F L 78 18 109/74 100 Room Air 02/15/23 10:15 02/15/23 10:15 02/15/23 10:15 02/15/23 10:15 02/15/23 10:15 02/15/23 10:15 Oxygen Delivery Method Room Air Weight: 76.2 kg Body Mass Index (BMI) 27.1 Intake & Output: Intake and Output for Last 24 Hours 02/13/23 02/14/23 02/15/23 23:59 23:59 23:59 Intake Total 1721.67 / 1721.67 220 / 220 Output Total 700 / 700 1800 / 1800 Balance 1021.67 / 1021.67 -1580 / -1580 Lab / Micro Data 02/15/23 06:00 02/15/23 06:00 Labs: Laboratory Results - last 24 hr 02/14/23 01:55: Vitamin B12 199 L 02/15/23 06:00: WBC 2.8 L, RBC 4.10 L, Hgb 9.9 L, Hct 31.2 L, MCV 76.1 L, MCH 24.1 L, MCHC 31.7 L, RDW Std Deviation 49.0 H, RDW Coeff of Adelia 18.0 H, Plt Count 183, MPV 9.7, Immature Gran % (Auto) 0.000, Neut % (Auto) 23.7 L, Lymph % (Auto) 61.1 H, [place] % (Auto) 11.0 H, Eos % (Auto) 3.5, Baso % (Auto) 0.7, Absolute Neuts (auto) 0.7 L, Absolute Lymphs (auto) 1.73, Nucleated RBC % 0, Differential Comment SCANNED, Sodium 138, Potassium 4.1, Chloride 111 H, Carbon Dioxide 24.0, Anion Gap 3 L, BUN 9, Creatinine 0.92, Estim Creat Clear Calc 58.59, Est GFR (MDRD) Af Amer 79, Est GFR (MDRD) Non-Af 65, BUN/Creatinine Ratio9.8 L, Glucose 99, Calcium 9.0, Phosphorus 3.6, Magnesium 2.3, Total Bilirubin 0.20, AST 19, ALT 15, Alkaline Phosphatase 81, Total Protein 6.1 L, Albumin 2.7 L, Globulin 3.4, Albumin/Globulin Ratio 0.8 L, Triglycerides 141, Cholesterol 196, LDL Cholesterol 76, VLDL Cholesterol 28, HDL Cholesterol 92, TSH 1.25 Radiography Diagnostic Testing: Radiology Impression Shoulder X-Ray 02/14/23 19:00 IMPRESSION: Intact left shoulder. Electronically Signed: Kavon Panchal MD at 19:19 EDT Reading Location ID and State: [address] [place] [address] Tel , Service support , Rhythm Strip Rhythm Strip: Sinus Rhythm Rate: 78 Ectopy: None Physical Exam Narrative General: Alert, oriented, no apparent distress HEENT: Atraumatic, normocephalic Eyes: Anicteric, normal conjunctiva, extraocular movements grossly intact Neck: Supple Respiratory: Clear to auscultation bilaterally, normal respiratory effort Cardiovascular: Regular rate and rhythm GI: Soft, nontender, nondistended Extremities: No edema Musculoskeletal: Moving all extremities Neuro: No overt focal neurological deficits Skin: No rashes appreciated Psych: Cooperative Assessment & Plan Assessment/Plan (1) Syncope: QUALIFIERS: Syncope type: unspecified Qualified Code(s): R55 - Syncope and collapse (2) Hypertension: (3) Anxiety and depression: (4) Insomnia: PLAN: Plan #syncope -Episode after getting up from watching TV and ambulating to bathroom -Denied lightheadedness or dizziness and was already awake and alert right afterepisode, had previous syncopal episode however so came to ED -Was in [facility] twice in January and hat CTA c/abd/pelv and labs and guaiacs which were all negative -admitted to tele -orthostats negative though pt reports dizziness with standing still -echo pending, reportedly had echo previously and was told she had severe valv heart disease and needed surgery but unable to view these records -further workup/management pending echo -may need holter on d/c -Does report intermittent whole head headaches but has a significant difficulty with describing symptomatology and answering specific questions. Given overall benign appearance with symptoms intermittent and CT had within normal limits do not think further urgent inpatient work-up needed pursued but will benefit from following on an outpatient basis #Chronic microcytic anemia -Secondary to iron deficiency anemia. Patient has history of peptic ulcer disease on PPI. Continue iron supplementation -Is b12 deficiency, replace #Neutropenia -Has had this intermittently through the past, may be alcohol related -Would likely benefit from outpatient evaluation if this has not yet been pursued #History of gastric bypass surgery -Continue to follow on an outpatient basis and will need labs monitored to assess for deficiencies #CKD stage IIIb -Appears to be at baseline, continue present management #HTN -cont home meds #Chronic alcohol dependence ? Counseled on cessation #Insomnia -Reportedly previously took temazepam and this was restarted here due to her persistent difficulty sleeping, discussed that this will not be prescribed upon discharge and she will have to establish with a physician for further prescribing of this benzodiazepine #Tobacco dependence - Counseled on cessation, offered nicotine patch for tobacco cravings #Hypokalemia -Corrected per protocol # DVT prophylaxis ? Bilateral SCDs Time spent in the patient's overall evaluation,decision-making process, review of diagnostic data, adjustment of management, discussion with other providers, nursing nursing and ancillary staff involved in patient's care documentation, 52minutes Charges/Coding Visit Charges Inpatient E&M: 00357 Subs Hosp 02/15/23 1430 <Electronically signed by Virginie Aguillon MD> Cosigner Signature (if applicable): CC: ~ Signed [facility] Work Phone: 1(728) 204-368807-16-2023 Progress note Author Drew Solis [facility] February 14, 2023 9:50am Note Date/Time February 14, 2023 7:38 am [facility] Medical Records Department [address] [place] [address] Progress Note - Hospitalist 02/14/23 0736 MR#: [id number] Acct: [id number] Name: MORENA PATTON Rep #:[id number] : 1960 63 From: Drew Solis MD PCP: Care Physician,No Primary Status :ADM CYRIL Location: [place] [address] Reason for Visit Reason for Visit: Diagnoses Syncope and collapse (02/13/23) Subjective Subjective Patient is a 63-year-old female who presented following a syncopal episode Objective Data Objective Data Vital Signs: Vital Signs Temp Pulse Resp BP Pulse Ox O2 Del Method 98.1 F 73 16 118/85 H 99 Room Air 02/14/23 03:23 02/14/23 03:23 02/14/23 03:23 02/14/23 03:23 02/14/23 03:23 02/14/23 03:24 Oxygen Delivery Method Room Air Weight: 75.9 kg Body Mass Index (BMI) 27.0 Intake & Output: Intake and Output for Last 24 Hours 02/12/23 02/13/23 02/14/23 23:59 23:59 23:59 Output Total 700 / 700 Balance -700 / -700 Lab / Micro Data 02/14/23 01:55 02/14/23 01:55 Labs: Laboratory Results - last 24 hr 02/13/23 19:30: WBC 4.2 L, RBC 5.13, Hgb 12.2, Hct 38.9, MCV 75.8 L, MCH 23.8 L,MCHC 31.4 L, RDW Std Deviation 47.8 H, RDW Coeff of Adelia 18.0 H, Plt Count 237, MPV 9.8, Immature Gran % (Auto) 0.500, Neut % (Auto) 39.8 L, Lymph % (Auto) 46.3H, [place] % (Auto) 10.8 H, Eos % (Auto) 1.9, Baso % (Auto) 0.7, Absolute Neuts (auto) 1.7 L, Absolute Lymphs (auto) 1.92, Nucleated RBC % 0, Sodium 136, Potassium 6.5 H*, Chloride 106, Carbon Dioxide 23.0, Anion Gap 7, BUN 12, Creatinine 1.06 H, Estim Creat Clear Calc 50.85, Est GFR (MDRD) Af Amer 67, Est GFR (MDRD) Non-Af 56 L, BUN/Creatinine Ratio 11.3, Glucose 99, Calcium 9.3, Troponin I High Sens 26 02/13/23 20:45: Potassium 4.1, Magnesium 2.0 02/13/23 23:00: Phosphorus 4.2, Troponin I High Sens 26, Ethyl Alcohol < 3.0 02/14/23 01:55: WBC 4.4, RBC 4.09 L, Hgb 9.9 L, Hct 31.1 L, MCV 76.0 L, MCH 24.2L, MCHC 31.8 L, RDW Std Deviation 48.1 H, RDW Coeff of Adelia 17.8 H, Plt Count 220, MPV 10.0, Immature Gran % (Auto) 0.200, Neut % (Auto) 37.1 L, Lymph % (Auto) 47.8 H, [place] % (Auto) 12.3 H, Eos % (Auto) 2.1, Baso % (Auto) 0.5, Absolute Neuts (auto) 1.6 L, Absolute Lymphs (auto) 2.10, Nucleated RBC % 0, Sodium 140, Potassium 3.4 L, Chloride 112 H, Carbon Dioxide 23.0, Anion Gap 5, BUN 12, Creatinine 0.91, Estim Creat Clear Calc 59.24, Est GFR (MDRD) Af Amer 80, Est GFR (MDRD) Non-Af 66, BUN/Creatinine Ratio 13.2, Glucose 116 H, Calcium 8.4 L, Total Bilirubin 0.20, AST 14 L, ALT 13, Alkaline Phosphatase 80, TroponinI High Sens 27, Total Protein 5.9 L, Albumin 2.7 L, Globulin 3.2, Albumin/Globulin Ratio 0.8 L, Folate 7.40 Radiography Diagnostic Testing: Radiology Impression Brain CT 02/13/23 19:38 IMPRESSION: No acute intracranial hemorrhage or mass effect. Electronically Signed: Rakesh Hickey (Brooks), at 20:57 EDT , Chest X-Ray 02/13/23 19:55 IMPRESSION: Stable, nonacute portable x-ray examination of the chest. Electronically Signed: Rakesh Hickey (Brooks), at 20:32 EDT , Rhythm Strip Rhythm Strip: Sinus Rhythm Rate: 78 Ectopy: None Physical Exam Narrative GENERAL: cooperative HEENT: Atraumatic; normocephalic EYES; Anicteric, Normal Conjunctiva NECK; supple, normal thyroid, RESPIRATORY: Diminished to auscultation CARDIOVASCULAR: Regular S1 S2, GI: soft, normoactive bowel sounds, : No Renal angle tenderness; EXTREMITIES: No edema, no clubbing, MUSCULOSKELETAL: no muscle wasting NEURO: Awake; no lateralizing signs. SKIN: No Rash PSYCH; Flat affect Assessment & Plan Assessment/Plan (1) Syncope: QUALIFIERS: Syncope type: unspecified Qualified Code(s): R55 - Syncope and collapse PLAN: Plan Patient is a 63-year-old female who presented following a syncopal episode 1. Syncope ? Patient admitted to monitored bed for continuous telemetry monitoring to rule out arrhythmia. As part of the management every shift orthostatics ordered 2. Hyperkalemia ? Thought to be secondary to hemolyzed sample repeat labs this a.m. did reveal potassium of 3.4 3. Chronic microcytic anemia ? Secondary to iron deficiency anemia. Patient has history of peptic ulcer disease on PPI. Ordered iron studies and patient started on p.o. iron 4. Hypertension - Blood pressure controlled, home medications continued with dose adjustment as needed 5. Chronic alcohol dependence ? Counseled on cessation, 6. Tobacco dependence - Counseled on cessation, offered nicotine patch for tobacco cravings 7. Hypokalemia -Corrected per protocol 8. DVT prophylaxis ? Bilateral SCDs Time spent in the patient's overall evaluation,decision-making process, review of diagnostic data, adjustment of management, discussion with other providers, nursing nursing and ancillary staff involved in patient's care documentation, 50Minutes Charges/Coding Visit Charges Inpatient E&M: 97693 Subs Hosp L3 02/14/23 0950 <Electronically signed by Drew Solis MD> Cosigner Signature (if applicable): CC: ~ Signed [facility] Work Phone: 1(666) 191-131607-16-2023 History and physical note Author eJniffer Campos [facility] February 13, 2023 10:41pm Note Date/Time February 13, 2023 8:47 pm [facility] Medical Records Department [address] [place] [id number] H&P Exam - Hospitalist 02/13/232044 MR#: [id number] Acct: [id number] Name: MORENA PATTON Rep #:[id number] : 1960 63 From: Jeniffer Campos MD PCP: Care Physician,No Primary Status :ADM CYRIL Location: [place] [address] HPI - General General Date of Admission: 02/13/23 Date of Service: 02/13/23 Chief Complaint: Syncopal event. HPI Narrative The patient is a 63 y/o F w/ PMHx: Chronic Leukopenia, Tobacco use, Chronic microcytic anemia/Fe Deficiency anemia, HTN, CKD stage III unclear subtype, HTN,HLD, ADHD/Insomnia/Anxiety and Depression, Tobacco use, EtOH abuse (currently notes ~ 4 tall boys daily, heavier prior, started drinking again to sleep and for pain control) who presents to the [facility] ED on 02/13/23 with history of watchingTV with her family this evening and upon attempting to get up and use the restroom she had a syncopal event prompting her family to go in as they heard her fall although they did not witness it but she was already awake with no significant complaints prior to this no any lightheadedness or dizziness but shehas had a similar syncopal event previously prompting ED evaluation. Patient unfortunately did hit her head on her fall and has a small hematoma but otherwise no significant plaints of headache, vision changes or altered mental status. From lengthy discussion with patient and family notes several year history of intermittent syncopal events with no prodrome. She was recently seenin the [email or web address] system in January twice from records noted and did have CTA chest/abdomen/pelvis as well as lab assessment and guaiacs which were negative at that time as patient does report in her history is intermittent dark stools. Family also reported that she has recent ECHO within the last 1-2 weeks and was told she had severe valvular heart disease and needed surgery but I am unable tosee these records in the [facility] system. There was recent CTA evaluation/lab work-up this month but no ECHO noted. Work-up in the ED included T96.8, heart rate 69, BP 133/79, respiratory rate 20, 99% on room air, CBC with WBC 4.2, hemoglobin 12.2, MCV 75.8, platelet 237 with ANC 1.7 of note, BMP with potassium6.5 however this is moderately hemolyzed, BUN/creatinine 12/1.06, troponin 26, chest x-ray with no acute cardiopulmonary findings, CT of the brain with on preliminary review no acute intracranial findings however final radiology read is pending upon request evaluation of patient, EKG with sinus rhythm with no acute evidence of ischemia. [facility] Medical History ADHD (attention deficit hyperactivity disorder) Anemia Anxiety and depression B12 deficiency Chronic pain ETOH abuse History of GI bleed Hypertension Insomnia Iron (Fe) deficiency anemia PUD (peptic ulcer disease) TMJ (temporomandibular joint syndrome) Tobacco use Home Medications temazepam 30 mg capsule 30 mg PO QHS 03/16/16 [History Last Taken 03/15/16] rollator walker with seat #1 ea 10/09/20 [Rx Last Taken Unknown] medical marijauna PO 10/16/20 [History Last Taken Unknown] cyclobenzaprine 10 mg tablet 20 mg PO TID 10/24/20 [History Last Taken Unknown] cyanocobalamin (vitamin B-12) 1,000 mcg/mL injection solution 1,000 mcg IM Q30D #1 mL 12/20/20 [Rx Last Taken Unknown] diclofenac sodium 1 % topical gel 4 g topical .QID #100 grams 03/03/21 [Rx Last Taken Unknown] omeprazole 40 mg capsule,delayed release 40 mg PO DAILY #90 caps 03/03/21 [Rx Last Taken Unknown] triamterene 37.5 mg-hydrochlorothiazide 25 mg capsule 1 cap PO DAILY #90 caps 03/03/21 [Rx Last Taken Unknown] syringe with needle 1 mL 25 gauge x 1 #100 ea 03/05/21 [History Last Taken Unknown] albuterol sulfate 90 mcg/actuation aerosol inhaler 2 puff inhalation Q4H PRN PRNSOB, wheezing #8.5 grams 04/16/21 [Rx Last Taken Unknown] plecanatide 3 mg tablet (Trulance) 3 mg DAILY 06/21/21 [History Last Taken Unknown] bupropion HCl 300 mg 24 hr tablet, extended release 300 mg PO QAM #60 tabs 08/29/21 [Rx Last Taken Unknown] valacyclovir 500 mg tablet (Valtrex) 500 mg PO DAILY Herpes Flare #90 tabs 10/28/21 [Rx Last Taken Unknown] ergocalciferol (vitamin D2) 1,250 mcg (50,000 unit) capsule 50,000 unit PO Q2W 11/26/21 [History Last Taken Unknown] Allergy/AdvReac Type Severity Reaction Status Date / Time buprenorphine [From [facility]] Allergy Rash Verified 10/22/22 10:10 NSAIDS (Non-Steroidal AdvReac Nausea Verified 10/22/22 10:10 Anti-Inflamma Family History Father Myocardial infarction Alcohol abuse Mother CVA (cerebral vascular accident) Hypertension Thrombosis Alcohol abuse Sister Lupus Surgical History H/O gastric bypass Hx of bariatric surgery S/P Social History (Updated 02/13/23 @ 22:[address] Jeniffer Campos MD) household members: other details: grandson housing: house current occupational status: retired and disabled history of recent travel: No Smoking Status: Light Smoker (<10/day) Smokeless tobacco user: other alcohol intake: current alcohol intake frequency: 3 or more drinks per day details: Patient reports history of at 2-tall boys daily at least. substance use type: does not use what type of physical activity do you participate in: none and walking seatbelt use: always do you feel safe at home: Yes additional social history: single ROS ROS Narrative Admission Review of Systems: CONSTITUTIONAL: No weight loss, fever, chills, + weakness or fatigue. HEENT: Eyes: No visual loss, blurred vision, double vision or yellow sclerae. Ears, Nose, Throat: No hearing loss, sneezing, congestion, runny nose or sore throat. SKIN: No rash or itching, lesions, wounds. CARDIOVASCULAR: + Syncope. No chest pain, chest pressure or chest discomfort, palpitations, edema, orthopnea, syncopal events. RESPIRATORY: No shortness of breath, cough or sputum, wheezing, hemoptysis. GASTROINTESTINAL: + Intermittent chronic abdominal pain, intermittent chronic dark stools on Fe, No anorexia, nausea, vomiting, diarrhea, BRBPR. GENITOURINARY: No dysuria, frequency, urgency or retention. NEUROLOGICAL: + Syncopal event. No headache, dizziness, paralysis, ataxia, numbness or tingling in the extremities, focal weakness, change in bowel or bladder control, seizure. MUSCULOSKELETAL: + muscle, back pain, joint pain or stiffness. HEMATOLOGIC:+ anemia, bleeding or bruising. LYMPHATICS: No enlarged nodes. No history of splenectomy. PSYCHIATRIC: + history of depression or anxiety. ENDOCRINOLOGIC: No reports of sweating, cold or heat intolerance. No polyuria orpolydipsia. ALLERGIES: No history of asthma, hives, eczema or rhinitis. Vital Signs Vital Signs Vital Signs: 02/13/23 19:21 02/13/23 19:26 Temperature 96.8 F L Temperature Source Temporal Pulse Rate 69 Respiratory Rate 22 H Respiratory Pattern Normal Blood Pressure 133/79 H Blood Pressure Mean 97 Pulse Ox 99 Oxygen Delivery Method Room Air Weight Weight: 171 lb 1.259 oz Body Mass Index (BMI) 27.6 Physical Exam Narrative Physical Examination: General: Awake, alert, oriented x 3 and cooperative, laying in the ED bed, fatigued, no acute distress at this time, denies any lightheadedness or dizziness. Skin: Normal color, normal turgor, no icterus, no cyanosis. HEENT: AT/NC, EOMI, PERRLA, mildly dry MM, no carotid bruits or JVD noted. Lungs: Mildly diminished, greater bases, proper effort, no rales, ronchi or wheezing. Heart: Currently regular rate and rhythm; no gallop, rub audible, +SM. Abdomen: Soft, reports vague abdominal discomfort but no rebound or guarding even in the epigastric region, ND, mildly hyperactive BS,+ HM. Extremities: No cyanosis, clubbing, or edema. Neurological: Patient awake, alert, oriented as noted, cognitive function intact; pupils equally reactive to light and accommodation, cranial nerves grossly normal, moving all 4 extremities, no focal deficits, strength mildly to moderately globally decreased secondary to acute presentation complaints and underlying comorbidities. Psychiatric: Affect appears flat, fatigued, no acute evidence of depressive or anxiety feelings. Results Lab / Micro Data 02/13/23 19:30 02/13/23 20:45 Labs: Laboratory Results - last 24 hr 02/13/23 19:30: WBC 4.2 L, RBC 5.13, Hgb 12.2, Hct 38.9, MCV 75.8 L, MCH 23.8 L,MCHC 31.4 L, RDW Std Deviation 47.8 H, RDW Coeff of Adelia 18.0 H, Plt Count 237, MPV 9.8, Immature Gran % (Auto) 0.500, Neut % (Auto) 39.8 L, Lymph % (Auto) 46.3H, [place] % (Auto) 10.8 H, Eos % (Auto) 1.9, Baso % (Auto) 0.7, Absolute Neuts (auto) 1.7 L, Absolute Lymphs (auto) 1.92, Nucleated RBC % 0, Sodium 136, Potassium 6.5 H*, Chloride 106, Carbon Dioxide 23.0, Anion Gap 7, BUN 12, Creatinine 1.06 H, Estim Creat Clear Calc 50.85, Est GFR (MDRD) Af Amer 67, Est GFR(MDRD) Non-Af 56 L, BUN/Creatinine Ratio 11.3, Glucose 99, Calcium 9.3, TroponinI High Sens 26 Rhythm Strip Rhythm Strip: Sinus Rhythm Rate: 78 Ectopy: None Radiology Impression Chest X-Ray 02/13/23 19:55 IMPRESSION: Stable, nonacute portable x-ray examination of the chest. Electronically Signed: Rakesh ChadKailey Hickey, at 20:32 EDT , Assessment & Plan Assessment/Plan (1) Syncope: PLAN: Plan The patient is a 63 y/o F w/ PMHx: Chronic Leukopenia, Tobacco use, Chronic microcytic anemia/Fe Deficiency anemia, HTN, CKD stage III unclear subtype, HTN,HLD, ADHD/Insomnia/Anxiety and Depression, Tobacco use, EtOH abuse (currently notes ~ 4 tall boys daily, heavier prior, started drinking again to sleep and for pain control) who presents to the [facility] ED on 02/13/23 with history of watchingTV with her family this evening and upon attempting to get up and use the restroom she had a syncopal event prompting her family to go in as they heard her fall although they did not witness it but she was already awake with no significant complaints prior to this no any lightheadedness or dizziness but shehas had a similar syncopal event previously prompting ED evaluation. #1. Mechanical fall secondary to Syncopal Event with history of similar prior: Unclear etiology but of note has occurred previously, CT head without acute findings on preliminary review but awaiting radiology read, EKG in ED w/ sinus rhythm without evidence of acute ischemia, CXR w/ no acute cardiopulmonary findings, initial trop normal. Will admit to PCU, place on a monitored bed to assure no acute myocardial infarction with serial cardiac enzymes and EKGs. Willmaintain on fall precautions, obtain admission orthostatic, continue IVFs, will obtain ECHO. #2. Hyperkalemia, falsely elevated, secondary to moderate hemolysis: Admission potassium 6.5 however the sample is moderately hemolyzed, likely falsely elevated, will repeat CMP in AM. #3. Chronic microcytic anemia/Iron deficiency anemia with suspected chronic issues with GI bleeding with history of peptic ulcer disease: Admission [id number], baseline prior has been 12-13 but there was a period where patient was 10-11 range with a history of even being lower with prior evidence of peptic ulcer disease with GI bleed with underlying alcohol abuse ongoing, will maintain as noted on vitamin B-12 and folic acid as well as multivitamin with mineral given alcohol abuse history. Given recent negative guaiacs and stable hemoglobin we will just continue to monitor at this point but strongly recommend patient complete sobriety and follow-up early with gastroenterology. Vitamin B12 and folic acid levels pending. Will continue BID PPI and Fe supplementation. #4. EtOH Abuse: Patient notes routine consumption of at least 2 tall boys per day. Will maintain on CIWA protocol, MVI, thiamine and folic acid. Magnesium and phosphorus levels requested. Case management consulted for substance abuse. Will have as needed agents per alcohol abuse order set as well. #5. Chronic leukopenia: Admission CBC with WC 4.2 with ANC less than 2 and fromreview of prior records this is similar to her noted prior baseline, will continue to trend CBC. #6. Anxiety and depression/ADHD/insomnia: We will continue patient home temazepam, bupropion home regimen. #7. Chronic Kidney Disease Stage III, unclear subtype: Admission BUN/Cr 12/1.06, baseline renal function primarily 0.9-1.1, repeat BMP in AM. #8. Status post prior bariatric surgery: Patient reports she has not been taking any B12 supplementation. As noted we will place on at least oral supplementation at this time. Vitamin B12 level pending. #9. Tobacco Abuse: Encouraged cessation, inpatient consultation per RT, NR if desired. #10. Hypertension: Continue home regimen including triamterene hydrochlorothiazide however if orthostatics are notable we will hold, PRN hydralazine. #11. GERD: We will continue patient home PPI. #12. DVT prophylaxis: SCDs. #13. CODE STATUS: Full code. Admission Evaluation Time spent evaluating chart, patient history, patient evaluation, care planning and discussion with specialists with serial repeat visits to evaluation and discuss status with also family: 75 minutes. Charges/Coding Visit Charges Inpatient E&M: 91637 Init Hosp L3 02/13/23 2241 <Electronically signed by Jeniffer Campos MD> Cosigner Signature (if applicable): CC: Dr. Jeniffer Campos MD; No Primary Care Physician~ Signed [facility] Work Phone: [phone]) 924-702407-16-2023 Discharge summary Author Albert Carbone [facility] February 13, 2023 10:07pm Note Date/Time February 13, 2023 7:43 pm [facility] Medical Records Department [address] [place] [address] Emergency Department Summary 02/13/23 MR#: [id number] Acct: [id number] Name: MORENA PATTON Rep #:[id number] : 1960 63 From: Albert Carbone MD PCP: Care Physician,No Primary Status :ADM CYRIL Location: [place] [address] Albert Carbone MD on 02/13/23 at 2206 Family is had multiple discussions. Some of them have been heated between them. At this moment the patient is going to be admitted here for syncope. 02/13/232205<Electronically signed by Albert Carbone MD> Cosigner Signature (if applicable): cc: No Primary Care Physician ~* Signed ADDENDUM by Dr. Albert Carbone MD on 02/13/23 at 2200 Mild 1 and discussed all the test with the patient and get her admitted the son is arrived. He said [facility] found that she had valvular heart disease. He thinks that may be the causeof her syncopal episodes. He preferred that she go to [place]. I explained to him that that may not be a possibility tonight. He wants to sign out and take her to [facility] emergency department himself. 02/13/232199<Electronically signed by Albert Carbone MD> Cosigner Signature (if applicable): cc: No Primary Care Physician ~* Signed HPI History of Present Illness Chief Complaint: Syncope Informant: patient and family Onset/Context/Timing Onset: Today Context: Sudden Onset Timing: Continuous Current Severity: Moderate Maximum Severity: Moderate Narrative Narrative: 63-year-old female history of prior bariatric surgery. Reportedly was watching television with her grandson. Got up to walk to the restroom. Prior to gettingto the restroom she had a syncopal episode. He did not witness the event but heheard her fall and go down he got up and she was awake. Prior to the episode ofeither syncope or near syncope she had no complaints. Has had no recent illnessor recent hospitalization. She has had a syncopal event before according to thegrandson. He states only he and his grandmother live at home. There is no other adults. Prior similar symptoms: Yes Recent Illness/Hospitalization: No [facility] Medical History (Updated 02/13/23 @ 20:[address] Jeniffer Campos MD) ADHD (attention deficit hyperactivity disorder) Anemia Anxiety and depression B12 deficiency Chronic pain h/o blood transfusions h/o iron transfusions Hypertension Insomnia Tenonitis TMJ (temporomandibular joint syndrome) Home Medications temazepam 30 mg capsule 30 mg PO QHS 03/16/16 [History Last Taken 03/15/16] rollator walker with seat #1 ea 10/09/20 [Rx Last Taken Unknown] medical marijauna PO 10/16/20 [History Last Taken Unknown] cyclobenzaprine 10 mg tablet 20 mg PO TID 10/24/20 [History Last Taken Unknown] cyanocobalamin (vitamin B-12) 1,000 mcg/mL injection solution 1,000 mcg IM Q30D #1 mL 12/20/20 [Rx Last Taken Unknown] diclofenac sodium 1 % topical gel 4 g topical .QID #100 grams 03/03/21 [Rx Last Taken Unknown] omeprazole 40 mg capsule,delayed release 40 mg PO DAILY #90 caps 03/03/21 [Rx Last Taken Unknown] triamterene 37.5 mg-hydrochlorothiazide 25 mg capsule 1 cap PO DAILY #90 caps 03/03/21 [Rx Last Taken Unknown] syringe with needle 1 mL 25 gauge x 1 #100 ea 03/05/21 [History Last Taken Unknown] albuterol sulfate 90 mcg/actuation aerosol inhaler 2 puff inhalation Q4H PRN PRNSOB, wheezing #8.5 grams 04/16/21 [Rx Last Taken Unknown] plecanatide 3 mg tablet (Trulance) 3 mg DAILY 06/21/21 [History Last Taken Unknown] bupropion HCl 300 mg 24 hr tablet, extended release 300 mg PO QAM #60 tabs 08/29/21 [Rx Last Taken Unknown] valacyclovir 500 mg tablet (Valtrex) 500 mg PO DAILY Herpes Flare #90 tabs 10/28/21 [Rx Last Taken Unknown] ergocalciferol (vitamin D2) 1,250 mcg (50,000 unit) capsule 50,000 unit PO Q2W 11/26/21 [History Last Taken Unknown] Allergy/AdvReac Type Severity Reaction Status Date / Time buprenorphine [From Butrans] Allergy Rash Verified 10/22/22 10:10 NSAIDS (Non-Steroidal AdvReac Nausea Verified 10/22/22 10:10 Anti-Inflamma Family History Father Myocardial infarction Alcohol abuse Mother CVA (cerebral vascular accident) Hypertension Thrombosis Alcohol abuse Sister Lupus Surgical History H/O gastric bypass Hx of bariatric surgery S/P Social History household members: other details: grandson housing: house current occupational status: retired and disabled history of recent travel: No Smoking Status: Current every day smoker tobacco type: cigarettes alcohol intake: never substance use type: does not use what type of physical activity do you participate in: none and walking seatbelt use: always do you feel safe at home: Yes additional social history: single ROS ROS ED ROS Narrative Denies recent illness. No headache or chest pain. No vomiting or diarrhea. Nomelena. No fever. Review of Systems ROS Unobtainable: Denies due to encephalopathy Constitutional Constitutional ED: Denies chills or fever(s) Eyes Eyes: Denies blurry vision ENT ENT ED: Denies ear pain Cardiovascular Cardiovascular: Denies chest pain Respiratory/Chest Respiratory/Chest: Denies cough or dyspnea Gastrointestinal Gastrointestinal: Denies abdominal pain, diarrhea, melena, nausea or vomiting Genitourinary Genitourinary ED: Denies dysuria Musculoskeletal Musculoskeletal: Denies arthralgias Integumentary Denies abscess Neurologic Neurologic: Denies headache(s) Psychiatric Psychiatric: Denies anxiety Endocrine Endocrinology: Denies cold intolerance Hematologic/Lymphatic Hematologic/Lymphatic: Reports none Allergic/Immunologic Allergic/Immunologic ED: Denies mouth swelling or tongue swelling EXAM Physical Exam Narrative Exam Narrative: 63-year-old female no acute distress. Awake. Alert. HEENT exam contusion right forehead. There is round reactive light. There is a hematoma. No scalp tenderness. C-spine and trachea nontender. Midline. Lungs clear. Heart regular rhythm rate about 70 no murmur. Chest wall and ribs nontender. Abdomensoft nontender. Normal bowel sounds no peritoneal signs. Pelvic girdle intact. Moving all 4 extremities. Normal life cycle assessment analyst strength. Normal dorsi plantarflexion. Neurologically. She is awake and alert. She knows she is in the hospital. Sheknows it is January. She knows the year. She is answering questions and followingcommands. Const Vital Signs: 02/13/23 19:21 02/13/23 19:26 Temperature 96.8 F L Temperature Source Temporal Pulse Rate 69 Respiratory Rate 22 H Respiratory Pattern Normal Blood Pressure 133/79 H Blood Pressure Mean 97 Pulse Ox 99 Oxygen Delivery Method Room Air Positive well nourished and well developed; Negative for cachectic, contracturesor unkempt General Appearance ED: well developed and NAD; Negative for unkempt, cachectic, contractures, cyanotic, diaphoretic or pallor Nutritional Appearance: Negative for cachectic HEENT Reports moist mucous membranes; Denies dry mucous membranes HEENT Narrative: Right forehead contusion. trauma; Negative for tenderness Mouth ED: No dry mucous membranes Mouth: No dry mucous membranes Eyes PERRL and EOMs intact bilaterally General Eye ED: Negative for pale conjunctiva Neck no lymphadenopathy, supple and no JVD General: Negative for tenderness Lymph Lymphatic: Negative for other Chest Wall inspection of chest normal and palpation of chest normal Chest: Negative for other Resp normal respiratory effort and clear to auscultation bilaterally Effort and Inspection: Negative for retractions Auscultation: Negative for rales, rhonchi or wheezes Cardio regular rate, regular rhythm, S1 normal heart sound, S2 normal heart sound and no murmurs GI normal to inspection, nondistended, normoactive bowel sounds, non-tender, non-distended and no masses Inspection: Negative for abdominal distention Auscultation: normoactive bowel sounds Palpation: soft; Negative for tender, guarding, mass or rebound tenderness present Bladder / Kidney Exam: No other Back/Spine no CVA tenderness General Back: Negative for CVA tenderness Cervical Spine: Negative for cervical spine tenderness Thoracic Spine / Upper Back: Negative for thoracic spinal tenderness Lumbar Spine / Lower Back: Negative for lumbar spinal tenderness Extremity normal to inspection General Extremety ED: Negative for edema or tenderness General Extremity: Negative for edema Neuro oriented x3 and CN's II-XII intact bilaterally Sensorium / Orientation: alert and orientation impaired; Negative for lethargic or stuporous Motor Exam: strength 5/5 throughout Psych mental status grossly normal Appearance: Negative for unkempt or other Attitude: No agitated Mood & Affect: Negative for depressed, anxious or tearful Skin no rashes or lesions noted, no wounds and skin turgor normal General Skin Exam: elasticity normal; Negative for jaundice or pallor Lesions: No lesion noted Rashes: No rashes noted Trauma: Negative for abrasion Wounds: Negative for wounds noted MDM MDM MDM Narrative Medical decision making narrative: 63-year-old female had a syncopal episode walking to the bathroom. Currently she is awake and alert. She did have a head injury when she fell. She undergo cardiac work-up. CT of her brain. Repeat exam patient is doing well at 8:49 PM. I have already spoken to the hospitalist for a overnight observation admission. History & Record Review Discussion w/independent historian: Patient and Family Additional record(s) reviewed:: Prior inpatient record, Prior outpatient record,Prior ED visit and Prior labs Lab Data Attestation: I reviewed the patient's lab results. Lab results narrative: CBC shows white count of 4.2. H&H 12.2 and 38. Platelets 237. Chest x-ray unremarkable. Chemistries shows a potassium of 6.5 gap of 7. BUN of 12 creatinine of 1. Glucose 99. I spoke to the lab. The patient has normal renal function. We will recheck thepotassium it may be erroneous due to hemolysis. Troponin is normal at 26. CAT scan of the brain shows no acute abnormality. Awaiting formal radiologist interpretation. Labs: Laboratory Results - last 24 hr 02/13/23 19:30 WBC 4.2 L RBC 5.13 Hgb 12.2 Hct 38.9 MCV 75.8 L MCH 23.8 L MCHC 31.4 L RDW Std Deviation 47.8 H RDW Coeff of Adelia 18.0 H Plt Count 237 MPV 9.8 Immature Gran % (Auto) 0.500 Neut % (Auto) 39.8 L Lymph % (Auto) 46.3 H [place] % (Auto) 10.8 H Eos % (Auto) 1.9 Baso % (Auto) 0.7 Absolute Neuts (auto) 1.7 L Absolute Lymphs (auto) 1.92 Nucleated RBC % 0 Sodium 136 Potassium 6.5 H* Chloride 106 Carbon Dioxide 23.0 Anion Gap 7 BUN 12 Creatinine 1.06 H Estim Creat Clear Calc 50.85 Est GFR (MDRD) Af Amer 67 Est GFR (MDRD) Non-Af 56 L BUN/Creatinine Ratio 11.3 Glucose 99 Calcium 9.3 Troponin I High Sens 26 Radiography Chest X-Ray - ED: 1 View, Read by ED Physician, Heart, Lungs, Mediastinum, Bony Structures, No Acute Disease and Chronic Changes Diagnostic Testing: Clinical Impression(s) from Imaging Studies Chest X-Ray 02/13/23 19:55 IMPRESSION: Stable, nonacute portable x-ray examination of the chest. Electronically Signed: Rakesh Hickey (Brooks), at 20:32 EDT Reading Location ID and State: [facility] / [place] , Service support , Chest x-ray, portable, single view showed no acute abnormality. Normal cardiac silhouette. Normal mediastinum. Normal lung ferrer. Rhythm Strip Rhythm Strip: Sinus Rhythm Rate: 78 Ectopy: None EKG Initial EKG: Attestation: I personally reviewed and interpreted this EKG as follows: Interpretation: No Acute Injury Pattern Comments: Normal sinus rhythm rate of 78. No acute signs of RI nor ischemia nor dysrhythmia. Unremarkable EKG. Discharge Plan Dx/Rx/DC Orders Clinical Impression: Closed head injury, Syncope, Fall Disposition Disposition: Acute Care Hospital [facility] What to do if you have Problems For any increased pain, shortness of breath, bleeding, nausea or vomiting, chestpain, or any unexpected problems, contact your Primary Care Provider. Call [facility] ([phone]) or report to the closest Emergency Room. Call 911 if necessary. 02/13/23 0553 <Electronically signed by Albert Carbone MD> Cosigner Signature (if applicable): CC: No Primary Care Physician ~ Signed [facility] Work Phone: [phone]) 830-920007-15-2023 Discharge summary Author Albert Carbone [facility] February 13, 2023 10:07pm Note Date/Time February 13, 2023 7:43 pm [facility] Medical Records Department [address] [place] [address] Emergency Department Summary 02/13/23 MR#: [id number] Acct: [id number] Name: MORENA PATTON Rep #:[id number] : 1960 63 From: Albert Carbone MD PCP: Care Physician,No Primary Status :ADM CYRIL Location: [place] [address] Albert Carbone MD on 02/13/23 at 2206 Family is had multiple discussions. Some of them have been heated between them. At this moment the patient is going to be admitted here for syncope. 02/13/232205<Electronically signed by Albert Carbone MD> Cosigner Signature (if applicable): cc: No Primary Care Physician ~* Signed ADDENDUM by Dr. Albert Carbone MD on 02/13/23 at 2200 Mild 1 and discussed all the test with the patient and get her admitted the son is arrived. He said at [facility] found that she had valvular heart disease. He thinks that may be the causeof her syncopal episodes. He preferred that she go to [place]. I explained to him that that may not be a possibility tonight. He wants to sign out and take her to [facility] emergency department himself. 02/13/232199<Electronically signed by Albert Carbone MD> Cosigner Signature (if applicable): cc: No Primary Care Physician ~* Signed HPI History of Present Illness Chief Complaint: Syncope Informant: patient and family Onset/Context/Timing Onset: Today Context: Sudden Onset Timing: Continuous Current Severity: Moderate Maximum Severity: Moderate Narrative Narrative: 63-year-old female history of prior bariatric surgery. Reportedly was watching television with her grandson. Got up to walk to the restroom. Prior to gettingto the restroom she had a syncopal episode. He did not witness the event but heheard her fall and go down he got up and she was awake. Prior to the episode ofeither syncope or near syncope she had no complaints. Has had no recent illnessor recent hospitalization. She has had a syncopal event before according to thegrandson. He states only he and his grandmother live at home. There is no other adults. Prior similar symptoms: Yes Recent Illness/Hospitalization: No [facility] Medical History (Updated 02/13/23 @ 20:[address] Jeniffer Campos MD) ADHD (attention deficit hyperactivity disorder) Anemia Anxiety and depression B12 deficiency Chronic pain h/o blood transfusions h/o iron transfusions Hypertension Insomnia Tenonitis TMJ (temporomandibular joint syndrome) Home Medications temazepam 30 mg capsule 30 mg PO QHS 03/16/16 [History Last Taken 03/15/16] rollator walker with seat #1 ea 10/09/20 [Rx Last Taken Unknown] medical marijauna PO 10/16/20 [History Last Taken Unknown] cyclobenzaprine 10 mg tablet 20 mg PO TID 10/24/20 [History Last Taken Unknown] cyanocobalamin (vitamin B-12) 1,000 mcg/mL injection solution 1,000 mcg IM Q30D #1 mL 12/20/20 [Rx Last Taken Unknown] diclofenac sodium 1 % topical gel 4 g topical .QID #100 grams 03/03/21 [Rx Last Taken Unknown] omeprazole 40 mg capsule,delayed release 40 mg PO DAILY #90 caps 03/03/21 [Rx Last Taken Unknown] triamterene 37.5 mg-hydrochlorothiazide 25 mg capsule 1 cap PO DAILY #90 caps 03/03/21 [Rx Last Taken Unknown] syringe with needle 1 mL 25 gauge x 1 #100 ea 03/05/21 [History Last Taken Unknown] albuterol sulfate 90 mcg/actuation aerosol inhaler 2 puff inhalation Q4H PRN PRNSOB, wheezing #8.5 grams 04/16/21 [Rx Last Taken Unknown] plecanatide 3 mg tablet (Trulance) 3 mg DAILY 06/21/21 [History Last Taken Unknown] bupropion HCl 300 mg 24 hr tablet, extended release 300 mg PO QAM #60 tabs 08/29/21 [Rx Last Taken Unknown] valacyclovir 500 mg tablet (Valtrex) 500 mg PO DAILY Herpes Flare #90 tabs 10/28/21 [Rx Last Taken Unknown] ergocalciferol (vitamin D2) 1,250 mcg (50,000 unit) capsule 50,000 unit PO Q2W 11/26/21 [History Last Taken Unknown] Allergy/AdvReac Type Severity Reaction Status Date / Time buprenorphine [From Butrans] Allergy Rash Verified 10/22/22 10:10 NSAIDS (Non-Steroidal AdvReac Nausea Verified 10/22/22 10:10 Anti-Inflamma Family History Father Myocardial infarction Alcohol abuse Mother CVA (cerebral vascular accident) Hypertension Thrombosis Alcohol abuse Sister Lupus Surgical History H/O gastric bypass Hx of bariatric surgery S/P Social History household members: other details: grandson housing: house current occupational status: retired and disabled history of recent travel: No Smoking Status: Current every day smoker tobacco type: cigarettes alcohol intake: never substance use type: does not use what type of physical activity do you participate in: none and walking seatbelt use: always do you feel safe at home: Yes additional social history: single ROS ROS ED ROS Narrative Denies recent illness. No headache or chest pain. No vomiting or diarrhea. [place]. No fever. Review of Systems ROS Unobtainable: Denies due to encephalopathy Constitutional Constitutional ED: Denies chills or fever(s) Eyes Eyes: Denies blurry vision ENT ENT ED: Denies ear pain Cardiovascular Cardiovascular: Denies chest pain Respiratory/Chest Respiratory/Chest: Denies cough or dyspnea Gastrointestinal Gastrointestinal: Denies abdominal pain, diarrhea, melena, nausea or vomiting Genitourinary Genitourinary ED: Denies dysuria Musculoskeletal Musculoskeletal: Denies arthralgias Integumentary Denies abscess Neurologic Neurologic: Denies headache(s) Psychiatric Psychiatric: Denies anxiety Endocrine Endocrinology: Denies cold intolerance Hematologic/Lymphatic Hematologic/Lymphatic: Reports none Allergic/Immunologic Allergic/Immunologic ED: Denies mouth swelling or tongue swelling EXAM Physical Exam Narrative Exam Narrative: 63-year-old female no acute distress. Awake. Alert. HEENT exam contusion right forehead. There is round reactive light. There is a hematoma. No scalp tenderness. C-spine and trachea nontender. Midline. Lungs clear. Heart regular rhythm rate about 70 no murmur. Chest wall and ribs nontender. Abdomensoft nontender. Normal bowel sounds no peritoneal signs. Pelvic girdle intact. Moving all 4 extremities. Normal life cycle assessment analyst strength. Normal dorsi plantarflexion. Neurologically. She is awake and alert. She knows she is in the hospital. Sheknows it is January. She knows the year. She is answering questions and followingcommands. Const Vital Signs: 02/13/23 19:21 02/13/23 19:26 Temperature 96.8 F L Temperature Source Temporal Pulse Rate 69 Respiratory Rate 22 H Respiratory Pattern Normal Blood Pressure 133/79 H Blood Pressure Mean 97 Pulse Ox 99 Oxygen Delivery Method Room Air Positive well nourished and well developed; Negative for cachectic, contracturesor unkempt General Appearance ED: well developed and NAD; Negative for unkempt, cachectic, contractures, cyanotic, diaphoretic or pallor Nutritional Appearance: Negative for cachectic HEENT Reports moist mucous membranes; Denies dry mucous membranes HEENT Narrative: Right forehead contusion. trauma; Negative for tenderness Mouth ED: No dry mucous membranes Mouth: No dry mucous membranes Eyes PERRL and EOMs intact bilaterally General Eye ED: Negative for pale conjunctiva Neck no lymphadenopathy, supple and no JVD General: Negative for tenderness Lymph Lymphatic: Negative for other Chest Wall inspection of chest normal and palpation of chest normal Chest: Negative for other Resp normal respiratory effort and clear to auscultation bilaterally Effort and Inspection: Negative for retractions Auscultation: Negative for rales, rhonchi or wheezes Cardio regular rate, regular rhythm, S1 normal heart sound, S2 normal heart sound and no murmurs GI normal to inspection, nondistended, normoactive bowel sounds, non-tender, non-distended and no masses Inspection: Negative for abdominal distention Auscultation: normoactive bowel sounds Palpation: soft; Negative for tender, guarding, mass or rebound tenderness present Bladder / Kidney Exam: No other Back/Spine no CVA tenderness General Back: Negative for CVA tenderness Cervical Spine: Negative for cervical spine tenderness Thoracic Spine / Upper Back: Negative for thoracic spinal tenderness Lumbar Spine / Lower Back: Negative for lumbar spinal tenderness Extremity normal to inspection General Extremety ED: Negative for edema or tenderness General Extremity: Negative for edema Neuro oriented x3 and CN's II-XII intact bilaterally Sensorium / Orientation: alert and orientation impaired; Negative for lethargic or stuporous Motor Exam: strength 5/5 throughout Psych mental status grossly normal Appearance: Negative for unkempt or other Attitude: No agitated Mood & Affect: Negative for depressed, anxious or tearful Skin no rashes or lesions noted, no wounds and skin turgor normal General Skin Exam: elasticity normal; Negative for jaundice or pallor Lesions: No lesion noted Rashes: No rashes noted Trauma: Negative for abrasion Wounds: Negative for wounds noted MDM MDM MDM Narrative Medical decision making narrative: 63-year-old female had a syncopal episode walking to the bathroom. Currently she is awake and alert. She did have a head injury when she fell. She undergo cardiac work-up. CT of her brain. Repeat exam patient is doing well at 8:49 PM. I have already spoken to the hospitalist for a overnight observation admission. History & Record Review Discussion w/independent historian: Patient and Family Additional record(s) reviewed:: Prior inpatient record, Prior outpatient record,Prior ED visit and Prior labs Lab Data Attestation: I reviewed the patient's lab results. Lab results narrative: CBC shows white count of 4.2. H&H 12.2 and 38. Platelets 237. Chest x-ray unremarkable. Chemistries shows a potassium of 6.5 gap of 7. BUN of 12 creatinine of 1. Glucose 99. I spoke to the lab. The patient has normal renal function. We will recheck thepotassium it may be erroneous due to hemolysis. Troponin is normal at 26. CAT scan of the brain shows no acute abnormality. Awaiting formal radiologist interpretation. Labs: Laboratory Results - last 24 hr 02/13/23 19:30 WBC 4.2 L RBC 5.13 Hgb 12.2 Hct 38.9 MCV 75.8 L MCH 23.8 L MCHC 31.4 L RDW Std Deviation 47.8 H RDW Coeff of Adelia 18.0 H Plt Count 237 MPV 9.8 Immature Gran % (Auto) 0.500 Neut % (Auto) 39.8 L Lymph % (Auto) 46.3 H [place] % (Auto) 10.8 H Eos % (Auto) 1.9 Baso % (Auto) 0.7 Absolute Neuts (auto) 1.7 L Absolute Lymphs (auto) 1.92 Nucleated RBC % 0 Sodium 136 Potassium 6.5 H* Chloride 106 Carbon Dioxide 23.0 Anion Gap 7 BUN 12 Creatinine 1.06 H Estim Creat Clear Calc 50.85 Est GFR (MDRD) Af Amer 67 Est GFR (MDRD) Non-Af 56 L BUN/Creatinine Ratio 11.3 Glucose 99 Calcium 9.3 Troponin I High Sens 26 Radiography Chest X-Ray - ED: 1 View, Read by ED Physician, Heart, Lungs, Mediastinum, Bony Structures, No Acute Disease and Chronic Changes Diagnostic Testing: Clinical Impression(s) from Imaging Studies Chest X-Ray 02/13/23 19:55 IMPRESSION: Stable, nonacute portable x-ray examination of the chest. Electronically Signed: Rakesh Hickey (Brooks), at 20:32 EDT Reading Location ID and State: [facility] / [place] , Service support , Chest x-ray, portable, single view showed no acute abnormality. Normal cardiac silhouette. Normal mediastinum. Normal lung ferrer. Rhythm Strip Rhythm Strip: Sinus Rhythm Rate: 78 Ectopy: None EKG Initial EKG: Attestation: I personally reviewed and interpreted this EKG as follows: Interpretation: No Acute Injury Pattern Comments: Normal sinus rhythm rate of 78. No acute signs of RI nor ischemia nor dysrhythmia. Unremarkable EKG. Discharge Plan Dx/Rx/DC Orders Clinical Impression: Closed head injury, Syncope, Fall Disposition Disposition: Acute Care Hospital [facility] What to do if you have Problems For any increased pain, shortness of breath, bleeding, nausea or vomiting, chestpain, or any unexpected problems, contact your Primary Care Provider. Call [facility] ([phone]) or report to the closest Emergency Room. Call 911 if necessary. 02/13/232104 <Electronically signed by Albert Carbone MD> Cosigner Signature (if applicable): CC: No Primary Care Physician ~ Signed [facility] Work Phone: 1(585) 202-243703-23-[address] Tom [facility] October 22, 2022 2:51pm Note Date/Time October 22, 2022 10: 39am [facility] Medical Records Department [address] [place] [address] Emergency Department Summary 10/22/22 MR#: [id number] Acct: [id number] Name: MORENA PATTON Rep #:[id number] : 1960 62 From: Blaise Tom DO PCP: Care Physician,No Primary Status :REG ER Location: ED HPI HPI - GI History of Present Illness Chief Complaint: Abd Pain Narrative Narrative: 62-year-old female presenting with multiple complaints. The first of which is abdominal burning which she describes as diffuse. She is concerned that she hasa history of peptic ulcer disease and GI bleed. She states he seen Dr. Yung in the past but cannot see him until November. She admits to some nausea as well. She states she does not think she had a bowel movement in about a week. She denies seeing any black or bloody stools. She does states she has a history of anemia for which she sees Dr. Tilley. She takes iron for this as well. She is concerned that she might be having a bleeding ulcer this is why she feels lightheaded, weak, nauseous. She admits to some shortness of breath with any exertion. She feels lightheaded when she stands. She had a couple of falls at home this week. [facility] Medical History ADHD (attention deficit hyperactivity disorder) Anemia Anxiety and depression B12 deficiency Chest pain Chronic pain h/o blood transfusions h/o iron transfusions Health care maintenance Hypertension Insomnia Obesity (BMI 30-39.9) Tenonitis TMJ (temporomandibular joint syndrome) Home Medications temazepam 30 mg capsule 30 mg PO QHS 03/16/16 [History Last Taken 03/15/16] rollator walker with seat #1 ea 10/09/20 [Rx Last Taken Unknown] medical marijauna PO 10/16/20 [History Last Taken Unknown] cyclobenzaprine 10 mg tablet 20 mg PO TID 10/24/20 [History Last Taken Unknown] cyanocobalamin (vitamin B-12) 1,000 mcg/mL injection solution 1,000 mcg IM Q30D #1 mL 12/20/20 [Rx Last Taken Unknown] diclofenac sodium 1 % topical gel 4 g topical .QID #100 grams 03/03/21 [Rx Last Taken Unknown] omeprazole 40 mg capsule,delayed release 40 mg PO DAILY #90 caps 03/03/21 [Rx Last Taken Unknown] triamterene 37.5 mg-hydrochlorothiazide 25 mg capsule 1 cap PO DAILY #90 caps 03/03/21 [Rx Last Taken Unknown] syringe with needle 1 mL 25 gauge x 1 #100 ea 03/05/21 [History Last Taken Unknown] albuterol sulfate 90 mcg/actuation aerosol inhaler 2 puff inhalation Q4H PRN PRNSOB, wheezing #8.5 grams 04/16/21 [Rx Last Taken Unknown] plecanatide 3 mg tablet (Trulance) 3 mg DAILY 06/21/21 [History Last Taken Unknown] bupropion HCl 300 mg 24 hr tablet, extended release 300 mg PO QAM #60 tabs 08/29/21 [Rx Last Taken Unknown] valacyclovir 500 mg tablet (Valtrex) 500 mg PO DAILY Herpes Flare #90 tabs 10/28/21 [Rx Last Taken Unknown] ergocalciferol (vitamin D2) 1,250 mcg (50,000 unit) capsule 50,000 unit PO Q2W 11/26/21 [History Last Taken Unknown] Allergy/AdvReac Type Severity Reaction Status Date / Time buprenorphine [From [facility]] Allergy Rash Verified 10/22/22 10:10 NSAIDS (Non-Steroidal AdvReac Nausea Verified 10/22/22 10:10 Anti-Inflamma Family History Father Myocardial infarction Alcohol abuse Mother CVA (cerebral vascular accident) Hypertension Thrombosis Alcohol abuse Sister Lupus Surgical History H/O gastric bypass Hx of bariatric surgery S/P Social History household members: other details: grandson housing: house current occupational status: retired and disabled history of recent travel: No Smoking Status: Unknown if ever smoked alcohol intake: never substance use type: does not use what type of physical activity do you participate in: none and walking seatbelt use: always do you feel safe at home: Yes additional social history: single ROS ROS ED Constitutional Constitutional ED: Denies chills or fever(s) ENT ENT ED: Denies rhinorrhea or sore throat Cardiovascular Cardiovascular: Reports other Details: Lightheadedness ; Denies chest pain Respiratory/Chest Respiratory/Chest: Reports dyspnea and dyspnea on exertion Gastrointestinal Gastrointestinal: Reports abdominal pain, constipation and nausea Genitourinary Genitourinary ED: Denies dysuria or hematuria Musculoskeletal Musculoskeletal: Denies arthralgias or myalgias Integumentary Denies abscess or Abrasions Neurologic Neurologic: Denies headache(s) Psychiatric Psychiatric: Denies anxiety or depression EXAM Physical Exam Const Vital Signs: 10/22/22 10:07 10/22/22 13:13 10/22/22 13:13 Temperature 97.9 F Temperature Source Temporal Pulse Rate 110 H 88 Pulse Rate [Lying] 88 Pulse Rate [Sitting (for 1 minute prior to obtaining)] 93 Pulse Rate [Standing (for 1 minute prior to obtaining)] 143 H Respiratory Rate 18 16 Blood Pressure 129/82 H 126/84 H Blood Pressure [Lying] 126/84 H Blood Pressure [Sitting (for 1 minute prior to obtaining)] 131/86 H Blood Pressure [Standing (for 1 minute prior to obtaining)] 118/106 H Blood Pressure Mean 97 98 Blood Pressure Mean [Lying] 98 Blood Pressure Mean [Sitting (for 1 minute prior to obtaining)] 101 Blood Pressure Mean [Standing (for 1 minute prior to obtaining)] 110 Pulse Ox 99 100 Oxygen Delivery Method Room Air Room Air Positive well nourished General Appearance ED: NAD HEENT Reports moist mucous membranes normocephalic and atraumatic Eyes PERRL and EOMs intact bilaterally Resp normal respiratory effort and clear to auscultation bilaterally Auscultation: Negative for rales, rhonchi or wheezes Cardio regular rate Rate: tachycardic GI GI Narrative: Diffuse generalized tenderness. Abdomen is soft. Palpation: Negative for tender, guarding or rigid Back/Spine no CVA tenderness Neuro CN's II-XII intact bilaterally and moves all extremities Sensorium / Orientation: alert Motor Exam: strength 5/5 throughout Psych mental status grossly normal and thought process normal Skin no wounds MDM MDM MDM Narrative Medical decision making narrative: Patient presenting with multiple complaints. Lightheadedness is one of her complaints. Differential for this would be dehydration, GI bleed, electrolyte abnormalities. She does not have any vertiginous dizziness. Patient also complaining of diffuse abdominal pain. This could be peptic ulcer disease, gastritis, colitis, diverticulitis, small bowel obstruction given her surgical history. She has not a bowel movement in a week. Patient also complaining of shortness of breath which could be due to anemia we will obtain a chest x-ray torule out pneumonia. EKG to assess for dysrhythmia, and high-sensitivity troponin. Will obtain orthostatic vital signs as well. CBC has a normal white blood cell count of 4.8. Hemoglobin hematocrit are stable. Platelets are normal. Renal function electrolytes within normal limits. LFTs are unremarkable. EKG on my interpretation is sinus rhythm with a ventricular rate of 90 bpm without sign of ischemic change or dysrhythmia. Chest x-ray on my interpretation shows no acute cardiopulmonary process. The radiologist servicesand agrees. High-sensitivity troponin 27. Patient requested something for painso she was given morphine and Zofran. Orthostatic vital signs were obtained andthe blood pressures are normal however her heart rate speeds up so she also given a liter of IV fluids. Urinalysis obtained and shows no evidence of infection. CT of the abdomen pelvis shows constipation and a centimeter hemangioma on the liver. At this point the patient I think is stable to be discharged home. I will put her on MiraLAX for home. Return precautions are discussed. Impression: 1. Dyspnea 2. Abdominal pain 3. Constipation 4. Lightheadedness 5. Hemangioma Lab Data Labs: Laboratory Results - last 24 hr 10/22/22 10/22/22 10/22/22 11:50 11:50 13:25 WBC 4.8 RBC 4.84 Hgb 12.2 Hct 37.7 MCV 77.9 L MCH 25.2 L MCHC 32.4 RDW Std Deviation 47.2 H RDW Coeff of Adelia 17.1 H Plt Count 276 MPV 9.1 Immature Gran % (Auto) 0.200 Neut % (Auto) 45.8 L Lymph % (Auto) 43.4 H [place] % (Auto) 7.5 Eos % (Auto) 2.5 Baso % (Auto) 0.6 Absolute Neuts (auto) 2.2 Absolute Lymphs (auto) 2.07 Nucleated RBC % 0 Sodium 139 Potassium 3.8 Chloride 109 H Carbon Dioxide 22.0 Anion Gap 8 BUN 15 Creatinine 0.99 Estim Creat Clear Calc 55.16 Est GFR (MDRD) Af Amer 73 Est GFR (MDRD) Non-Af 61 BUN/Creatinine Ratio 15.2 Glucose 106 Calcium 9.3 Total Bilirubin 0.30 AST 16 ALT 15 Alkaline Phosphatase 95 Troponin I High Sens 27 Total Protein 7.0 Albumin 3.6 Globulin 3.4 Albumin/Globulin Ratio 1.1 Lipase 182 Urine Color YELLOW Urine Clarity Clear Urine pH 7.0 Ur Specific [place] 1.015 Urine Protein 30 H Urine Glucose (UA) Normal Urine Ketones Negative Urine Occult Blood 150 H Urine Nitrite Negative Urine Bilirubin Negative Urine Urobilinogen Normal Ur Leukocyte Esterase 500 H Urine RBC 0 SEEN Urine WBC 0-5 SEEN Ur Squamous Epith Cells 0-5 SEEN Urine Bacteria 0 SEEN Urine Mucus 0 SEEN Radiography Diagnostic Testing: Clinical Impression(s) from Imaging Studies Abdomen/Pelvis CT 10/22/22 10:36 IMPRESSION: Diffuse fatty infiltration of the liver. Findings suggestive of a 1 cm hemangioma in the posterior dome of the right lobe of the liver. Electronically Signed: Javad Del Cid MD at 13:01 EDT , Chest X-Ray 10/22/22 10:50 IMPRESSION: Elevation of the right hemidiaphragm. The lungs are clear. Electronically Signed: Javad Del Cid MD at 11:05 EDT , Discharge Plan Triage Chief Complaint: Abd Pain Other Complaint: Weakness ED Provider: Blaise Tom Dx/Rx/DC Orders Prescriptions: No Action medical marijauna PO (DME) syringe with needle 1 mL 25 gauge x 1 syringe See Rx Instructions .ROUTE .MEDSUPPLY Qty: 100 Rx Instructions: As directed ergocalciferol (vitamin D2) 1,250 mcg (50,000 unit) capsule 50,000 unit PO Q2W temazepam 30 MG capsule 30 mg PO QHS Label Comments: SLEEP cyclobenzaprine 10 mg tablet 20 mg PO TID Label Comments: leg spasm Trulance 3 mg tablet 3 mg DAILY (DME) rollator walker with seat See Rx Instructions .Route .MEDSUPPLY Qty: 1 0RF Rx Instructions: As directed cyanocobalamin (vitamin B-12) 1,000 mcg/mL solution 1,000 mcg IM Q30D Qty: 1 2RF diclofenac sodium 1 % gel 4 g TOPICAL .QID Qty: 100 1RF Rx Instructions: apply to single knee, ankle, foot; for foot includes sole/toes/top of foot triamterene-hydrochlorothiazid 37.5-25 mg capsule 1 cap PO DAILY Qty: 90 1RF omeprazole 40 mg capsule,delayed release(DR/EC) 40 mg PO DAILY Qty: 90 1RF albuterol sulfate 90 mcg/actuation HFA aerosol inhaler 2 puff INHALATION Q4H PRN PRN (Reason: SOB, wheezing) Qty: 8.5 1RF Label Comments: BREATHING bupropion HCl 300 mg tablet extended release 24 hr 300 mg PO QAM Qty: 60 2RF valacyclovir [Valtrex] 500 mg tablet 500 mg PO DAILY Qty: 90 1RF Primary Care Provider: Care Physician,No Primary Referrals: Care Physician,No Primary [Primary Care Provider] - What to do if you have Problems For any increased pain, shortness of breath, bleeding, nausea or vomiting, chestpain, or any unexpected problems, contact your Primary Care Provider. Call [facility] ([phone]) or report to the closest Emergency Room. Call 911 if necessary. 10/22/22 1451 <Electronically signed by Blaise Tom DO> Cosigner Signature (if applicable): CC: No Primary Care Physician ~ Signed [facility] Work Phone: [phone] 352-638703-10-[address] Rutledge [facility] October 09, 2022 5:57pm Note Date/Time October 09, 2022 5:4 1pm [facility] Medical Records Department [address] [place] [address] Emergency Department Summary 10/09/22 MR#: [id number] Acct: [id number] Name: MORENA PATTON Rep #:[id number] : 1960 62 From: Lisa ROY PCP: Care Physician,No Primary Status :REG ER Location: ED HPI <MANUELA Hickman - Last Filed: 10/09/22 17:50> History of Present Illness Chief Complaint: Head Injury Narrative Narrative: 62-year-old female fell a week ago with head injury. She states she was sittingdown on the toilet and did not realize she had missed it and fell backwards striking her head on the porcelain tank. No LOC. Since then she has had headaches, feels woozy. She has chronic nausea which is unchanged. No vomiting. No vision changes or focal motor or sensory changes. No blood thinners. She has been taking Excedrin for the headaches. PFSH <MANUELA Hickman - Last Filed: 10/09/22 17:50> [facility] Medical History ADHD (attention deficit hyperactivity disorder) Anemia Anxiety and depression B12 deficiency Chest pain Chronic pain h/o blood transfusions h/o iron transfusions Health care maintenance Hypertension Insomnia Obesity (BMI 30-39.9) Tenonitis TMJ (temporomandibular joint syndrome) Home Medications temazepam 30 mg capsule 30 mg PO QHS 03/16/16 [History Last Taken 03/15/16] rollator walker with seat #1 ea 10/09/20 [Rx Last Taken Unknown] medical marijauna PO 10/16/20 [History Last Taken Unknown] cyclobenzaprine 10 mg tablet 20 mg PO TID 10/24/20 [History Last Taken Unknown] cyanocobalamin (vitamin B-12) 1,000 mcg/mL injection solution 1,000 mcg IM Q30D #1 mL 12/20/20 [Rx Last Taken Unknown] diclofenac sodium 1 % topical gel 4 g topical .QID #100 grams 03/03/21 [Rx Last Taken Unknown] omeprazole 40 mg capsule,delayed release 40 mg PO DAILY #90 caps 03/03/21 [Rx Last Taken Unknown] triamterene 37.5 mg-hydrochlorothiazide 25 mg capsule 1 cap PO DAILY #90 caps 03/03/21 [Rx Last Taken Unknown] syringe with needle 1 mL 25 gauge x 1 #100 ea 03/05/21 [History Last Taken Unknown] albuterol sulfate 90 mcg/actuation aerosol inhaler 2 puff inhalation Q4H PRN PRNSOB, wheezing #8.5 grams 09/15/21 [Rx Last Taken Unknown] plecanatide 3 mg tablet (Trulance) 3 mg DAILY 06/21/21 [History Last Taken Unknown] bupropion HCl 300 mg 24 hr tablet, extended release 300 mg PO QAM #60 tabs 08/29/21 [Rx Last Taken Unknown] valacyclovir 500 mg tablet (Valtrex) 500 mg PO DAILY Herpes Flare #90 tabs 10/28/21 [Rx Last Taken Unknown] ergocalciferol (vitamin D2) 1,250 mcg (50,000 unit) capsule 50,000 unit PO Q2W 11/26/21 [History Last Taken Unknown] Allergy/AdvReac Type Severity Reaction Status Date / Time buprenorphine [From [facility]] Allergy Rash Verified 10/09/22 17:24 NSAIDS (Non-Steroidal AdvReac Nausea Verified 10/09/22 17:24 Anti-Inflamma Family History Father Myocardial infarction Alcohol abuse Mother CVA (cerebral vascular accident) Hypertension Thrombosis Alcohol abuse Sister Lupus Surgical History H/O gastric bypass Hx of bariatric surgery S/P Social History household members: other details: grandson housing: house current occupational status: retired and disabled history of recent travel: No Smoking Status: Unknown if ever smoked alcohol intake: never substance use type: does not use what type of physical activity do you participate in: none and walking seatbelt use: always do you feel safe at home: Yes additional social history: single ROS <MANUELA Hickman - Last Filed: 10/09/22 17:50> ROS ED ROS Narrative Constitutional: Negative for fever, chills, malaise. Eyes: Negative for visual change. CVS: Negative for palpitations, chest pain, syncope. Respiratory: Negative for shortness of breath. GI: Positive for nausea. No vomiting. Neuro: Positive for headache, negative for motor/sensory dysfunction. Skin: Negative for rash, abscess, or wound. Musc: Negative for joint pain, swelling, trauma. Heme: Negative for easy bruising, bleeding, lymphadenopathy. EXAM <MANUELA Hickman - Last Filed: 10/09/22 17:50> Physical Exam Narrative Exam Narrative: CONST: Patient sitting in no acute distress. EYES: Normal inspection. ENT: Head normocephalic atraumatic, no raccoon eyes or barrera sign, no hemotympanum, no nasal septal hematoma, no CSF otorrhea or rhinorrhea. NECK: Normal inspection. No midline spinal tenderness, no step off or crepitus. Bilateral cervical paraspinal tenderness. RESP: No respiratory distress, CTAB. CVS: Regular rate and rhythm, no murmur, no gallop. ABD: Soft and nontender, no guarding or rebound, nondistended, no hepatosplenomegaly. SKIN: Color normal, no rash, warm, dry, intact. EXTREMITIES: Normal appearance, no pedal edema. NEURO: Oriented x4. 5/5 upper and lower extremity strength, normal finger-nose bilaterally, normal gait. PSYCH: Normal affect. Const Vital Signs: 10/09/22 17:22 10/09/22 17:33 Temperature 98.6 F Temperature Source Temporal Pulse Rate 110 H Respiratory Rate 18 Respiratory Effort Normal Non-Labored Blood Pressure 110/79 Blood Pressure Mean 89 Pulse Ox 99 Oxygen Delivery Method Room Air Room Air <Dr. Anthony Rutledge MD - Last Filed: 10/09/22 17:57> Physical Exam Const Vital Signs: 10/09/22 17:22 10/09/22 17:33 Temperature 98.6 F Temperature Source Temporal Pulse Rate 110 H Respiratory Rate 18 Respiratory Effort Normal Non-Labored Blood Pressure 110/79 Blood Pressure Mean 89 Pulse Ox 99 Oxygen Delivery Method Room Air Room Air MDM <MANUELA Hickman - Last Filed: 10/09/22 17:50> [facility] Narrative Medical decision making narrative: Patient had a mechanical fall with closed head injury without LOC a week ago. She is having headaches and dizziness. She appears well and nontoxic. Heart rate is 110 with otherwise normal vital signs. She has no signs of head trauma. She is indicating she had swelling in the back of her skull but only feels her normal occipital notch. No signs of hematoma or basilar skull fracture. No midline spinal tenderness. She is neurologically intact. With injury occurringa week ago, no blood thinners, no external signs of trauma I do not think she needs a CT scan. She was advised to take mehb-pbu-pctpkud pain relievers and follow-up with her doctor next week. She was given return precautions and discharged in stable condition. Differential: Concussion, intracranial bleed, skull fracture Test considered but not ordered: Cording to [place] CT head rule no indication for head imaging. Prescriptions considered but I think she can take [id number]-pac-utzsela Tylenol or Motrin. <Dr. Anthony Rutledge MD - Last Filed: 10/09/22 17:57> [facility] Narrative Medical decision making narrative: Patient had a mechanical fall with closed head injury without LOC a week ago. She is having headaches and dizziness. She appears well and nontoxic. Heart rate is 110 with otherwise normal vital signs. She has no signs of head trauma. She is indicating she had swelling in the back of her skull but only feels her normal occipital notch. No signs of hematoma or basilar skull fracture. No midline spinal tenderness. She is neurologically intact. With injury occurringa week ago, no blood thinners, no external signs of trauma I do not think she needs a CT scan. She was advised to take qslq-ikd-givxpsh pain relievers and follow-up with her doctor next week. She was given return precautions and discharged in stable condition. Differential: Concussion, intracranial bleed, skull fracture Test considered but not ordered: Cording to [place] CT head rule no indication for head imaging. Prescriptions considered but I think she can take epfi-hjo-vgbdzva Tylenol or Motrin. I have personally performed a face to face assessment of the patient and have reviewed the HEATHER Note. I performed a substantive portion of the visit including all aspects of the following. My bates findings include: History is remarkable for fall 1 week ago. She missed the commode. Hit the back of her head. She feels a lump. She denied loss of conscious. She not amnestic. She denies paresthesia, anesthesia medics presently the time of the injury. Denies neck pain. She is not on an antithrombotic or anticoagulant. Exam is remarkable for area of concern being the occipital bone on the left side. There is no palpable oppression. There is no clinical signs of basilar skull fracture. GCS is 15 with a nonfocal neurologic exam Medical Decision Making per the [place]ian CT head rule and [place] rule imaging is not required. Per Nexus criteria imaging of the neck is not required. Other additions or changes: [None] Discharge Plan Triage Chief Complaint: Head Injury ED Midlevel Provider: Lisa Betancourt ED Provider: Anthony Rutledge Dx/Rx/DC Orders Clinical Impression: Acute head injury without loss of consciousness, Concussion Instructions: Concussion Dc Prescriptions: No Action medical marijauna PO (DME) syringe with needle 1 mL 25 gauge x 1 syringe See Rx Instructions .ROUTE .MEDSUPPLY Qty: 100 Rx Instructions: As directed ergocalciferol (vitamin D2) 1,250 mcg (50,000 unit) capsule 50,000 unit PO Q2W temazepam 30 MG capsule 30 mg PO QHS Label Comments: SLEEP cyclobenzaprine 10 mg tablet 20 mg PO TID Label Comments: leg spasm Trulance 3 mg tablet 3 mg DAILY (DME) rollator walker with seat See Rx Instructions .Route .MEDSUPPLY Qty: 1 0RF Rx Instructions: As directed cyanocobalamin (vitamin B-12) 1,000 mcg/mL solution 1,000 mcg IM Q30D Qty: 1 2RF diclofenac sodium 1 % gel 4 g TOPICAL .QID Qty: 100 1RF Rx Instructions: apply to single knee, ankle, foot; for foot includes sole/toes/top of foot triamterene-hydrochlorothiazid 37.5-25 mg capsule 1 cap PO DAILY Qty: 90 1RF omeprazole 40 mg capsule,delayed release(DR/EC) 40 mg PO DAILY Qty: 90 1RF albuterol sulfate 90 mcg/actuation HFA aerosol inhaler 2 puff INHALATION Q4H PRN PRN (Reason: SOB, wheezing) Qty: 8.5 1RF Label Comments: BREATHING bupropion HCl 300 mg tablet extended release 24 hr 300 mg PO QAM Qty: 60 2RF valacyclovir [Valtrex] 500 mg tablet 500 mg PO DAILY Qty: 90 1RF Primary Care Provider: Care Physician,No Primary Referrals: Care Physician,No Primary [Primary Care Provider] - Activity Restrictions/Additional Instructions: Take Tylenol 1000 mg every 6 hours as needed and follow-up with your doctor nextweek if symptoms are persistent. Disposition Disposition: Home, Self Care What to do if you have Problems For any increased pain, shortness of breath, bleeding, nausea or vomiting, chestpain, or any unexpected problems, contact your Primary Care Provider. Call [facility] ([phone]) or report to the closest Emergency Room. Call 911 if necessary. 10/09/221749 <Electronically signed by Lisa ROY> Cosigner Signature (if applicable): 10/09/221756 <Electronically signed by Teo WOO> CC: No Primary Care Physician ~ Signed [facility] Work Phone: [phone]) 413-700107-28-2022 Telephone encounter Note* Telephone Encounter - Joey Mcnamara - 02/26/2022 10:10 AM EDT Care Gaps Scheduling Contact Details: Called, left message Health Maintenance Due: Medicare AWV / PCP Visit: Due Eye Exam: Not due Foot Exam: Not due Annual Blood Work: Due Mammogram: Due, but pt has no order in Active Requests FIT: Not due [id number] Miscellaneous Notes* Telephone Encounter - Joey Mcnamara - 02/26/2022 10:10 AM EDT Care Gaps Scheduling Contact Details: Called, left message Health Maintenance Due: Medicare AWV / PCP Visit: Due Eye Exam: Not due Foot Exam: Not due Annual Blood Work: Due Mammogram: Due, but pt has no order in Active Requests FIT: Not due documented in this [id number] Hospital course Narrative* Berkley Jaramillo MD - 01/01/2022 7:31 AM EDT DISCHARGE SUMMARY [address] [address] Morena Patton Date of : 1960 61 year old female Attending Orestes Gaspar MD Date of Admission 12/28/2021 Date of Discharge 01/01/2022 Final Diagnosis: Gastrointestinal hemorrhage, unspecified gastrointestinal hemorrhage type Hospital Problems as of 12/31/2021 * (Principal) Gastrointestinal hemorrhage, unspecified gastrointestinal hemorrhage type 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-en-Y gastric bypass Discharge Procedure Orders GASTROENTEROLOGY SERVICE REQUEST Referral Priority: Routine Referral Type: Service Level Authorization Referral Location: [facility] GASTROENTEROLOGY Number of Visits Requested: 3 Expiration Date: 12/31/22 Future Appointments Date Time Provider Department Center 01/14/2022 10:45 AM Macy Smith DO [facility] 02/19/2022 10:30 AM Mary Ellen Miller MD [facility] Condition at Discharge Improved Activity No restrictions Diet No restrictions Disposition Home Functional Status Ambulatory Reason for Hospitalization Upper Gastrointestinal Hemorrhage Significant Findings EGD and colonoscopy 12/30/21 IMPRESSION: 1. Two clean based (Providence Class III) ulcers noted at the anastomosis site, likely etiology of coffee ground emesis and anemia 2. Gastric anatomy post Cj-en-Y surgery. 3. 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 Mucosa appeared normal in the excluded stomach. 4. Mild bulbar duodenitis 5. No polyps or mass lesions noted in the colon. Echo 12/30/21 Summary Technically difficult study. Left ventricular systolic function is normal. The left ventricular ejection fraction (LVEF) is 70% +/- 5% Normal right ventricular size and function. No hemodynamically significant valve disease. Noninvasive hemodynamic assessment is consistent with normal pulmonary artery systolic pressure. See above for further details. Vitals: 12/31/21 1400 BP: 133/89 Pulse: 79 Resp: 18 Temp: 98.8 F (37.1 C) SpO2: 100% Physical Exam Vitals reviewed. Constitutional: General: She is not in acute distress. Appearance: She is obese. She is not toxic-appearing. Cardiovascular: Rate and Rhythm: Normal rate and regular rhythm. Heart sounds: No murmur heard. No friction rub. Pulmonary: Effort: Pulmonary effort is normal. No respiratory distress. Comments: Clear apices Abdominal: Tenderness: There is abdominal tenderness (LUQ). Skin: Coloration: Skin is not jaundiced. Neurological: Comments: Strength of elbow flexion and extension intact and symmetric bilaterally. Strength of hipflexion and extension intact and symmetric bilaterally. Psychiatric: Mood and Affect: Mood normal. Hospital Course 61 year old female with a history of Cj-en-y Gastric bypass (1999), reported hx PUD, HTN, PORTIA, depression, GERD, EtOH abuse, PTSD, chronic low back pain, and OA who presented to ED 12/28/21 with syncope likely secondary to upper GI bleed. Notably, patient's orthostatics and echo were normal. Patient reportedly had at least one episode of coffee ground emesis while in the ED. Patient underwent EGD and colonoscopy. Two clean based (Providence Class III) ulcers were noted at the anastomosis site, likely etiology of coffee ground emesis and anemia. Patient had been on omeprazole BID at home for her PUD. Patient received IV Nexium BID while inpatient and GI recommended that patient is discharged onPO Nexium BID for 14 days and then switch to once daily. Patient was also counseled to quit smokingand avoid NSAIDs. Patient received a dose of IV iron prior to discharge (patient unable to receivedPO iron d/t her Cj-en-y Gastric bypass and inability to absorb PO iron). Her hgb remained stable in the 10s throughout her admission. Next colonoscopy for CRC screening should be in 10 years. Patient is stable for discharge home. To do: [ ] PCP f/u [ ] GI f/u Current Discharge Medication List CONTINUE these medications which have NOT CHANGED Details esomeprazole (NEXIUM) 40 MG capsule Take 1 Capsule by mouth 2 times daily (30 minutes before meals). Qty: 120 Capsule, Refills: 1 Associated Diagnoses: GERD (gastroesophageal reflux disease) topiramate (TOPAMAX) 25 MG tablet Take 1 Tab by mouth 2 times daily. Qty: 60 Tab, Refills: 3 Associated Diagnoses: Primary localized osteoarthrosis, shoulder region; Chronic right hip pain; Obstructive sleep apnea (adult) (pediatric); Obesity; Osteoarthritis of right knee; Intestinal bypass or anastomosis status; Hip arthritis ranitidine (ZANTAC) 150 MG tablet Take 1 Tab by mouth 2 times daily for 14 days. Qty: 28 Tab, Refills: 1 albuterol (PROAIR HFA) inhaler 90 mcg/inh Inhale 2 Puffs every 4 hours as needed for Wheezing. Qty: 8.5 g, Refills: 11 Associated Diagnoses: COPD (chronic obstructive pulmonary disease) ([facility]) ammonium lactate (LAC-HYDRIN) 12 % lotion Apply 80 mL topically 2 times daily. Qty: 500 g, Refills: 3 Associated Diagnoses: Dry skin !! beclomethasone (QVAR) 40 MCG/ACT inhaler Inhale 1 Puff 2 times daily. Qty: 7.3 g, Refills: 3 Associated Diagnoses: COPD (chronic obstructive pulmonary disease) ([facility]) methocarbamol (ROBAXIN-750) 750 MG tablet Take 1 Tab by mouth 4 times daily. Qty: 120 Tab, Refills: 3 tramadol (ULTRAM) 50 MG tablet Take 1 Tab by mouth every 6 hours as needed for Pain. Qty: 120 Tab, Refills: 3 acetaminophen (TYLENOL) 500 MG tablet Take 1 Tab by mouth every 6 hours as needed for Pain or Fever. Take with tramadol Qty: 120 Tab, Refills: 3 lorazepam (ATIVAN) 2 MG tablet Take 1 tablet one hour prior to procedure Qty: 3 Tab, Refills: 0 lisinopril (ZESTRIL) 10 MG tablet Take 1 Tab by mouth daily. Qty: 30 Tab, Refills: 3 Associated Diagnoses: HTN (hypertension) Vit-Fe Fumarate-FA ( PLUS) tablet Take 1 Tab by mouth daily. Qty: 30 Tab, Refills: 11 Associated Diagnoses: B12 deficiency; Gastric bypass status for obesity; Anemia, unspecified gabapentin (NEURONTIN) 300 MG capsule Take 1-4 Caps by mouth 3 times daily. Qty: 360 Cap, Refills: 1 !! Beclomethasone Dipropionate (QVAR INHALATION) Inhale. TRIAMTERENE-HCTZ ORAL Take by mouth. FLUOCINOLONE ACETONIDE EXTERNAL Apply externally. Cyanocobalamin 1000 MCG/ML KIT by Injection route. !! - Potential duplicate medications found. Please discuss with provider. I provided the patient and/or family/surrogate with the following information: Explanation of the primary diagnosis, and secondary diagnoses where applicable, including test results, Discussion of any new medications and treatments, including expected benefits and potential major side effects, Explanation of previous treatments or medications that are discontinued, Discussionof post- hospital day-to-day care needs and Follow-up plans, and warning signs that should prompt more urgent follow-up Berkley Jaramillo MD Internal Medicine, PGY-1 documented in this [id number] History of Present illness Narrative* Carlos Katz - 12/31/2021 5:03 PM EDT [facility] Spiritual Care Services Services provided for: Patient Services initiated by: Staff Psychic Reader Reason for services: Initial visit Assessment/Narrative: Patient just lost a first cousin apparently in good health last week Mandaeism/Spirituality: Non Anglican Spiritual Concerns: Grief/Loss Coping: Role of hoahaoism/spirituality Family: Support and Dynamics Interventions: Rapport building and prayer Outcome: Expressed appreciation Plan of Care: On-going Visits Carlos Katz Pager: [phone] Extension: [phone] * Orestes Gaspar MD - 12/31/2021 3:42 PM EDT Images from the original note were not included. Attending/Teaching Physician Note: I saw and evaluated Morena Patton. I personally obtained the bates and critical portions of the historyand physical exam. I reviewed the student/resident's documentation and discussed the patient with the student/resident. I agree with the student/resident's medical decision making as documented in the student/resident's note. Additional Findings, Impression and Plan: O: No overnight events S: Doing well. No complaints. Worried that sx may recur. O: Patient Vitals for the past 24 hrs: BP Temp Temp src Pulse Resp SpO2 O2 Device 12/31/21 1400 133/89 98.8 F (37.1 C) Oral 79 18 100 % -- 12/31/21 0714 124/86 98 F (36.7 C) Oral 77 18 97 % Room air 12/30/21 2223 150/89 98.6 F (37 C) Oral 77 18 97 % Room air 12/30/21 1603 140/70 98.5 F (36.9 C) Oral 87 18 94 % Room air Skin: no rashes Chest w/o w/c CV rrr w/o m/r/g Abd soft +BS not tender Ext: no c/e/c Neuro: nonfocal Psych: alert and cooperative CBC/PT/INR WBC RBC Hgb Hct MCV RDW Plt PT aPTT INR 12/31/21 0728 4.7 4.17 10.5 32.1 77 19.2 243 12/30/21 0246 4.4 4.09 10.2 31.1 76 19.2 232 12/29/21 0608 4.3 3.92 10.0 29.9 76 18.8 195 12/28/21 1721 4.3 4.20 10.5 32.0 76 18.9 251 Basic Metabolic Panel Na K Cl CO2 Gap Glu BUN Cr Ca Mg PO4 12/31/21 0728 1.9 12/31/21 0728 138 3.9 110 20 12 115 3 0.96 9.3 12/30/21 0246 1.9 12/30/21 0246 138 3.8 107 21 14 100 5 0.85 9.5 12/28/21 1721 132 4.7 Comment: Hemolysis present 103 17 17 112 17 1.13 9.3 Hepatic/Biliary/Pancreas T Prot Albumin D Bili T Bili Alk Phos ALT AST Amylase Lipase 12/28/211720 5.7 3.3 0.30 0.8 78 13 21 Comment: Hemolysis present 12/28/211720 23 Pt will not take oral iron because she does not absorb it given her bypass. A: 1. Syncope related to #2 2. Coffee ground emesis due to two ulcers at anastomosis site from gastric bypass surgery 3. S/P gastric bypass for obesity 4. HTN: stable 5. PTSD P: 1. Continue current course 2. F/U with GI 3. Okay to return home 4. F/U with PCP (needs to establish) 5. IV iron given Orestes Gaspar MD * Clara Lewis RN - 12/31/2021 2:32 AM EDT 0200 Pt c/o of severe pain in throat, tylenol given by prior RN, still c/o of severe pain, tomas WOO, ordered one time dose of oxy and BMX to be given early, both given, pt still complaining after both given that she has pain and feels as if shes being treated as an addict cause she wants pain meds, she has called RN in room multiple times about this, and then asked for something for sleep. Melatonin and trazadone given, pt woken up by other RN in room with bed one. A disagreement occurred byRN with bed one and my patient, patient complaining that she is being singled out and not having her issues addressed properly. Hot pacs, hot tea with honey and ice cream given to patient. Pt still complaining. * Orestes Gaspar MD - 12/30/2021 12:38 PM EDT Images from the original note were not included. Attending/Teaching Physician Note: I saw and evaluated Morena Patton. I personally obtained the bates and critical portions of the historyand physical exam. I reviewed the student/resident's documentation and discussed the patient with the student/resident. I agree with the student/resident's medical decision making as documented in the student/resident's note. Additional Findings, Impression and Plan: O: No overnight events S: Seen before studies. A bit dizzy when changing positions though orthostatics wnl. No syncope. O: Patient Vitals for the past 24 hrs: BP Temp Temp src Pulse Resp SpO2 O2 Device O2 Flow Rate (l/min) 12/30/21 1140 121/82 -- -- 82 21 99 % Room air -- 12/30/21 1125 137/81 -- -- 75 16 96 % Room air -- 12/30/21 1110 121/75 98 F (36.7 C) Temporal 87 16 97 % Room air -- 12/30/21 1108 101/77 -- -- 96 16 94 % Nasal cannula 12/30/21 1107 117/79 -- -- 96 22 91 % Nasal cannula 12/30/21 1102 127/85 -- -- 97 13 91 % Nasal cannula 12/30/21 1057 102/72 -- -- 98 29 93 % Nasal cannula 12/30/21 1052 96/68 -- -- 96 17 93 % Nasal cannula 12/30/21 1047 106/66 -- -- 103 18 95 % Nasal cannula 4 12/30/21 1042 103/66 -- -- 103 15 94 % Nasal cannula 3 12/30/21 1037 164/87 -- -- 104 16 96 % Nasal cannula 3 12/30/21 1032 180/116 -- -- 112 15 96 % Nasal cannula 3 12/30/21 1030 132/79 -- -- 110 13 96 % Nasal cannula 3 12/30/21 1025 121/65 -- -- 76 11 100 % Nasal cannula 12/30/21 1023 111/83 -- -- 74 18 100 % Nasal cannula 12/30/21 1021 128/77 -- -- 74 14 100 % Nasal cannula 12/30/21 1017 127/85 -- -- 69 24 100 % Nasal cannula 12/30/21 1004 130/82 98 F (36.7 C) Oral 79 18 100 % Room air -- 12/30/21 0600 143/84 98.1 F (36.7 C) Oral 80 20 100 % Room air -- 12/30/21 0200 131/79 97.8 F (36.6 C) Oral 77 20 99 % Room air -- 12/29/21 2200 144/72 98.1 F (36.7 C) Oral 70 16 100 % Room air -- 12/29/21 1935 -- -- -- -- -- -- Room air -- 12/29/21 1730 146/76 98.4 F (36.9 C) Oral 61 18 100 % -- -- 12/29/21 1500 126/89 -- -- 67 20 100 % -- -- 12/29/21 1444 147/96 -- -- 82 17 100 % Room air -- 12/29/21 1440 134/76 -- -- 73 20 98 % Room air -- 12/29/21 1437 126/86 -- -- 62 18 100 % Room air -- 12/29/21 1405 119/74 98.2 F (36.8 C) Oral 73 (!) 21 99 % Room air -- Skin: no rashes Chest w/o w/c CV rrr w/o m/r/g Abd soft +BS not tender; midline scare Ext: no c/e/c Neuro: nonfocal Psych: alert and cooperative CBC/PT/INR WBC RBC Hgb Hct MCV RDW Plt PT aPTT INR 12/30/21 0246 4.4 4.09 10.2 31.1 76 19.2 232 12/29/21 0608 4.3 3.92 10.0 29.9 76 18.8 195 12/28/21 1721 4.3 4.20 10.5 32.0 76 18.9 251 Basic Metabolic Panel Na K Cl CO2 Gap Glu BUN Cr Ca Mg PO4 12/30/21 0246 1.9 12/30/21 0246 138 3.8 107 21 14 100 5 0.85 9.5 12/28/21 172 132 4.7 Comment: Hemolysis present 103 17 17 112 17 1.13 9.3 Hepatic/Biliary/Pancreas T Prot Albumin D Bili T Bili Alk Phos ALT AST Amylase Lipase 12/28/21 172 5.7 3.3 0.30 0.8 78 13 21 Comment: Hemolysis present 12/28/21 172 23 EGD: Two Providence Class III ulcers at anastomosis site of Cj-en-Y surgery likely etiology of coffee ground emesis and anemia. A: 1. Syncope related to #2 2. Coffee ground emesis due to two ulcers at anastomosis site from gastric bypass surgery 3. S/P gastric bypass for obesity 4. HTN: stable 5. PTSD P: 1. PPI as per GI 2. Monitor H/H 3. Anticipate discharge on 12/31 Orestes Gaspar MD * Adonay Meehan - 12/30/2021 11:02 AM EDT 12/30/21 1100 Assessment and Discharge Planning Evaluation READMISSION LESS THAN 30 DAYS No READMISSION RISK SCORE IS Low Risk INTERVIEWED Patient COGNITIVE STATUS Age Appropriate Functional Status Ambulatory LIVING SITUATION Family Home Concerns No PCP VERIFIED No ADMISSION INSURANCE [employer];Medicare Medicare HMO (comment) Transportation to and/or from Appointments Drives Self;Family/Friend Provides Ride Durable Medical Equipment Ambulatory equipment HOME HEALTH CARE PRIOR TO ADMISSION No Dialysis No READMISSION RISK SCORE SHOULD BE Remain Unchanged SDOH Completed? Yes CASE MANAGEMENT CM met with the patient at the bedside to discuss discharge plans address, telephone number, and PCP verified. The patient lives with her adult grandson in a single family home she is independent with ADL's and us e a cane or walker for ambulation. The patient states she drives to appointment and will transportation at discharge. CM will continue to follow and update the plans as warranted. Adonay CHOPRA, RN Inpatient Environmental Health Physician * Berkley Jaramillo MD - 12/30/2021 7:24 AM EDT Images from the original note were not included. INTERNAL MEDICINE TEAM 9 DAILY PROGRESS NOTE Patient: Morena Patton : 1960 Sex: female Room: [place] [id number] Admit Date: 12/28/2021 Today's Date: 12/30/2021 Length of stay: 2 day(s) HOSPITAL COURSE: 61 year old female with a history of Cj-en-y Gastric bypass (1999), reported hx PUD (marginal (?)), HTN, PORTIA, depression, GERD, EtOH abuse, PTSD, chronic low back pain, and OA who presented to ED 12/28/21 with syncope, and reportedly had at least one episode of coffee ground emesis while in the ED. INTERVAL EVENTS: - Hgb 10.2 (yesterday 10) - Orthostats normal SUBJECTIVE: Slightly dizzy, nauseous Abdominal pain still present, but pain meds are helping OBJECTIVE: Patient Vitals for the past 24 hrs: BP Temp Temp src Pulse Resp SpO2 O2 Device 12/30/21 0600 143/84 98.1 F (36.7 C) Oral 80 20 100 % Room air 12/30/21 0200 131/79 97.8 F (36.6 C) Oral 77 20 99 % Room air 12/29/21 2200 144/72 98.1 F (36.7 C) Oral 70 16 100 % Room air 12/29/21 1935 -- -- -- -- -- -- Room air 12/29/21 1730 146/76 98.4 F (36.9 C) Oral 61 18 100 % -- 12/29/21 1500 126/89 -- -- 67 20 100 % -- 12/29/21 1444 147/96 -- -- 82 17 100 % Room air 12/29/21 1440 134/76 -- -- 73 20 98 % Room air 12/29/21 1437 126/86 -- -- 62 18 100 % Room air 12/29/21 1405 119/74 98.2 F (36.8 C) Oral 73 (!) 21 99 % Room air 12/29/21 1228 132/84 98.2 F (36.8 C) Oral 63 (!) 21 99 % Room air 12/29/21 1030 129/97 -- -- 71 15 100 % -- 12/29/21 0900 101/81 -- -- 78 16 100 % -- 12/29/21 0851 128/82 98 F (36.7 C) Oral 66 20 100 % Room air Is/Os Admission Weight Weight: 192 lb 6.4 oz (87.3 kg) Today's Weight Weight: 192 lb 6.4 oz (87.3 kg) BMI 31.05 Change in Weight: Current value is 192.4 lb (87.271 kg) on 12/29/2021 at 1759 No other value found for comparison Intake/Output Summary (Last 24 hours) at 12/30/2021 0724 Last data filed at 12/29/2021 1641 Gross per 24 hour Intake -- Output 800 ml Net -800 ml In: - (0 mL/kg) Out: 800 (9.2 mL/kg) [Urine:800 (0.4 mL/kg/hr)] Net: -800 Weight: 87.3 kg Physical Exam: Physical Exam Vitals reviewed. Constitutional: General: She is not in acute distress. Appearance: She is obese. She is ill-appearing. She is not toxic-appearing. Cardiovascular: Rate and Rhythm: Normal rate and regular rhythm. Heart sounds: No murmur heard. No friction rub. Pulmonary: Effort: Pulmonary effort is normal. No respiratory distress. Comments: Clear apices Abdominal: Tenderness: There is abdominal tenderness (LUQ). Skin: Coloration: Skin is not jaundiced. Neurological: Comments: Strength of elbow flexion and extension intact and symmetric bilaterally. Strength of hipflexion and extension intact and symmetric bilaterally. Psychiatric: Mood and Affect: Mood normal. Lines/Drains Peripheral IV Access: 12/28/21 (Active) Number of days: 1 Peripheral IV Access: 12/28/212106 20 gauge x 1.88 inch Left Forearm (Active) Number of days: 1 CURRENT MEDICATIONS: Scheduled Meds [MAR Hold] albuterol 2.5 mg Q4H RT esomeprazole 40 mg 2x Daily IV Meds PRN Meds albuterol 2.5 mg Q4H PRN acetaminophen 500 mg Q4H PRN LAB DATA: Basic Metabolic Panel Na K Cl CO2 Gap Glu BUN Cr Ca Mg PO4 12/30/21 0246 1.9 12/30/21 0246 138 3.8 107 21 14 100 5 0.85 9.5 12/28/21 1721 132 4.7 Comment: Hemolysis present 103 17 17 112 17 1.13 9.3 CBC/PT/INR WBC RBC Hgb Hct MCV RDW Plt PT aPTT INR 12/30/21245 4.4 4.09 10.2 31.1 76 19.2 232 12/29/21 0608 4.3 3.92 10.0 29.9 76 18.8 195 12/28/21 1721 4.3 4.20 10.5 32.0 76 18.9 251 WBC/Diff Neutro% Lymph% Eos% Seg% Bands% 12/30/21 0246 29.9 59.3 2.4 Hepatic/Biliary/Pancreas T Prot Albumin D Bili T Bili Alk Phos ALT AST Amylase Lipase 12/28/21 1721 5.7 3.3 0.30 0.8 78 13 21 Comment: Hemolysis present 12/28/21 172 23 Arterial Blood Gases None PT/INR None Creatinine clearance from [facility]roft-Gault: 65 ml/min using IBW 59.3 kg (actual weight 87.3 kg ignored) GFR from MDRD: greater than 60 age 61 yr, cr=0.85 on 12/30/2021, race Black / Cardiac Troponin I CK total CK-MB BNP 12/28/21 1744 <0.030 Comment: Range <=0.04 ng/mL: Negative Interpretation: Repeat testing in four to six hours if clinically indicated. Range 0.04-0.11 ng/mL: Suspected for acute myocardial injury. Interpretation: Serial measurements may be necessary to confirm or exclude the diagnosis of acute coronary syndrome. Repeat testing in four to six hours if clinically indicated. Range >=0.12 ng/mL: Results consistent with myocardial injury. Interpretation: Clinical and laboratory correlation recommended. Fingerstick Glucose (last 72 hours) None No results found for: HBA1C TSH (high sens.) (uIU/mL) Date Value 07/11/2002 .755 02/16/2002 1.25 Blood Culture None Urine Culture (last 1 year) None Pyogen Culture None Respiratory Culture, Misc None CARDIAC FINDINGS: ECG: RR, NSR IMAGING/OTHER: EGD 06/14/2019 IMPRESSION: 1. Anastomotic ulcer which is the likely etiology of melena and anemia s/p clip placement and thermal therapy with hemostasis 2. 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 Normal remnant stomach RECOMMENDATIONS: 1. Avoid smoking and NSAIDs 2. Continue high dose PPI twice daily 30 min before breakfast and dinner. 3. Can get Upper GI series to further evaluate the fistula/anatomy 4. Further recommendations as per the GI consult team ASSESSMENT AND PLAN: SUMMARY: 61 year old female with a history of Cj-en-y Gastric bypass (1999), reported hx PUD (marginal (?)), HTN, PORTIA, depression, GERD, EtOH abuse, PTSD, chronic low back pain, and OA who presented to ED 12/28/21 with syncope, and reportedly had at least one episode of coffee ground emesis while in the ED. PROBLEM LIST: #Syncope - Unclear prodrome (dizziness and lightheadedness, questionable nausea, unclear if diaphoretic or with vision changes) - Less likely seizure-like activity (questionable confusion/post-ictal state, no incontinence, age group, etc. Although will need to confirm with family) - Potentially related to low Hbg level as described below - Orthostatics normal Plan: - ECHO - Continuous telemetry - Fall precautions #UGIB #Microcytic anemia - Episode of coffee ground emesis in context of Cj-en-y gastric bypass and chronic anemia, as well as hx of reported PUD - Hx extensive GI/surgical procedures, likely baseline anemia with unchanged severity - EGD 06/14/2019: anastomotic ulcer as likely etiology of melena and anemia s/p clip placement and thermal therapy with hemostasis; with anatomy consistent with prior gastrojejunal anastomosis (Cj)and 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, and evidence of normal remnant stomach - Endorses epigastric pain and back pain for the preceding several days - Endorses taking an unclear medication containing powdered ASA Plan: - F/u GI recs - EGD and colonoscopy today - IV Nexium BID 40mg - CBC in AM (daily) - 2 large bore IVs - Please avoid NSAIDs - Try heating pad for pain Chronic Medical Conditions: #Asthma - Respiratory assessors #PORTIA - Repeat CBC daily, can consider getting iron studies #GERD - IV PPI as above #HTN - Holding home meds at this time, monitor BP #LAURENCE - Likely needs outpatient sleep clinic follow up Analgesia: SCDs Prophylaxis: Tylenol PRN Diet/Fluids: Clear Liquid; 2 GM Sodium Code: Full Code Dispo: Per PT/OT recommendations Outpatient followup: PCP, GI Please note that plan is not finalized until approved by an attending physician. Berkley Jaramillo MD Internal Medicine, PGY-1 * Viviane Goetz MD - 12/29/2021 10:35 AM EDT Images from the original note were not included. INTERNAL MEDICINE TEAM 9 DAILY PROGRESS NOTE Patient: Morena CHANDRA : 1960 Sex: female Room: [place] [id number] Admit Date: 12/28/2021 Today's Date: 12/29/2021 Length of stay: 1 day(s) HOSPITAL COURSE: 61 year old female with a history of Cj-en-y Gastric bypass (1999), reported hx PUD (marginal (?)), HTN, PORTIA, depression, GERD, EtOH abuse, PTSD, chronic low back pain, and OA who presented to ED 12/28/21 with syncope, and reportedly had at least one episode of coffee ground emesis while in the ED. INTERVAL EVENTS: NAEON. SUBJECTIVE: Patient seen and examined at bedside. Feels frustrated about having to be NPO. OBJECTIVE: Patient Vitals for the past 24 hrs: BP Temp Temp src Pulse Resp SpO2 O2 Device 12/29/21 0851 128/82 98 F (36.7 C) Oral 66 20 100 % Room air 12/29/21 0707 -- -- -- 67 16 98 % -- 12/29/21 0444 110/65 -- -- 60 16 95 % Room air 12/28/21 2243 -- -- -- 66 15 99 % -- 12/28/21 1900 -- -- -- 86 (!) 24 100 % -- 12/28/21 1800 -- -- -- 87 19 98 % -- 12/28/21 1710 -- 98.2 F (36.8 C) Oral 93 19 97 % Room air 12/28/21 1709 114/56 -- -- -- -- -- -- Is/Os Admission Weight Today's Weight BMI Data Unavailable No data found No intake or output data in the 24 hours ending 12/29/21 1035 No intake/output data recorded. Physical Exam: Physical Exam Vitals reviewed. Constitutional: General: She is not in acute distress. Appearance: She is obese. She is ill-appearing. She is not toxic-appearing. Cardiovascular: Rate and Rhythm: Normal rate and regular rhythm. Heart sounds: No murmur heard. No friction rub. Pulmonary: Effort: Pulmonary effort is normal. No respiratory distress. Comments: Clear apices Abdominal: Tenderness: There is abdominal tenderness (LUQ). Skin: Coloration: Skin is not jaundiced. Neurological: Comments: Strength of elbow flexion and extension intact and symmetric bilaterally. Strength of hipflexion and extension intact and symmetric bilaterally. Psychiatric: Mood and Affect: Mood normal. Lines/Drains Peripheral IV Access: 12/28/21 (Active) Number of days: 1 Peripheral IV Access: 12/28/21 2107 20 gauge x 1.88 inch Left Forearm (Active) Number of days: 1 CURRENT MEDICATIONS: Scheduled Meds albuterol 2.5 mg Q4H RT esomeprazole 40 mg 2x Daily IV Meds PRN Meds albuterol 2.5 mg Q4H PRN acetaminophen 500 mg Q4H PRN LAB DATA: Basic Metabolic Panel Na K Cl CO2 Gap Glu BUN Cr Ca Mg PO4 12/28/21 1721 132 4.7 Comment: Hemolysis present 103 17 17 112 17 1.13 9.3 CBC/PT/INR WBC RBC Hgb Hct MCV RDW Plt PT aPTT INR 12/29/21 0608 4.3 3.92 10.0 29.9 76 18.8 195 12/28/21 1721 4.3 4.20 10.5 32.0 76 18.9 251 WBC/Diff Neutro% Lymph% Eos% Seg% Bands% 12/29/21 0608 40.6 49.7 1.5 12/28/21 172 55.8 36.6 0.6 Hepatic/Biliary/Pancreas T Prot Albumin D Bili T Bili Alk Phos ALT AST Amylase Lipase 12/28/21 172 5.7 3.3 0.30 0.8 78 13 21 Comment: Hemolysis present 12/28/211720 23 Arterial Blood Gases None PT/INR None Creatinine clearance from [facility]roft-Gault: 49 ml/min using IBW 59.3 kg (actual weight 61.6 kg ignored) GFR from MDRD: 59.3 ml/min/1.73 sq m age 61 yr, cr=1.13 on 12/28/2021, race Black / Cardiac Troponin I CK total CK-MB BNP 12/28/21 1744 <0.030 Comment: Range <=0.04 ng/mL: Negative Interpretation: Repeat testing in four to six hours if clinically indicated. Range 0.04-0.11 ng/mL: Suspected for acute myocardial injury. Interpretation: Serial measurements may be necessary to confirm or exclude the diagnosis of acute coronary syndrome. Repeat testing in four to six hours if clinically indicated. Range >=0.12 ng/mL: Results consistent with myocardial injury. Interpretation: Clinical and laboratory correlation recommended. Fingerstick Glucose (last 72 hours) None No results found for: HBA1C TSH (high sens.) (uIU/mL) Date Value 07/11/2002 .755 02/16/2002 1.25 Blood Culture None Urine Culture (last 1 year) None Pyogen Culture None Respiratory Culture, Misc None CARDIAC FINDINGS: ECG: RR, NSR IMAGING/OTHER: EGD 06/14/2019 IMPRESSION: 1. Anastomotic ulcer which is the likely etiology of melena and anemia s/p clip placement and thermal therapy with hemostasis 2. 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 Normal remnant stomach RECOMMENDATIONS: 1. Avoid smoking and NSAIDs 2. Continue high dose PPI twice daily 30 min before breakfast and dinner. 3. Can get Upper GI series to further evaluate the fistula/anatomy 4. Further recommendations as per the GI consult team ASSESSMENT AND PLAN: SUMMARY: 61 year old female with a history of Cj-en-y Gastric bypass (1999), reported hx PUD (marginal (?)), HTN, PORTIA, depression, GERD, EtOH abuse, PTSD, chronic low back pain, and OA who presented to ED 12/28/21 with syncope, and reportedly had at least one episode of coffee ground emesis while in the ED. PROBLEM LIST: #Syncope - Unclear prodrome (dizziness and lightheadedness, questionable nausea, unclear if diaphoretic or with vision changes) - Less likely seizure-like activity (questionable confusion/post-ictal state, no incontinence, age group, etc. Although will need to confirm with family) - Potentially related to low Hbg level as described below Plan: - Orthostatic VS - ECHO - Continuous telemetry - Fall precautions #UGIB #Microcytic anemia - Episode of coffee ground emesis in context of Cj-en-y gastric bypass and chronic anemia, as well as hx of reported PUD - Hx extensive GI/surgical procedures, likely baseline anemia with unchanged severity - EGD 06/14/2019: anastomotic ulcer as likely etiology of melena and anemia s/p clip placement and thermal therapy with hemostasis; with anatomy consistent with prior gastrojejunal anastomosis (Cj)and 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, and evidence of normal remnant stomach - Endorses epigastric pain and back pain for the preceding several days - Endorses taking an unclear medication containing powdered ASA Plan: - Keep NPO - IV Nexium BID 40mg - CBC in AM (daily) - GI consult in AM - Please avoid NSAIDs - Try heating pad for pain Chronic Medical Conditions: #Asthma - Respiratory assessors #PORTIA - Repeat CBC daily, can consider getting iron studies #GERD - IV PPI as above #HTN - Holding home meds at this time, monitor BP #LAURENCE - Likely needs outpatient sleep clinic follow up Analgesia: SCDs Prophylaxis: Tylenol PRN Diet/Fluids: Clear Liquid; 2 GM Sodium Code: Full Code Dispo: Per PT/OT recommendations Outpatient followup: PCP, GI Please note that plan is not finalized until approved by an attending physician. Viviane Goetz MD Internal Medicine, PGY-1 Personal Pager: [phone] Team 9 Pager: [phone] documented in this [id number] Hospital Discharge instructions* Discharge Instructions* Berkley Jaramillo MD - 12/31/2021 4:10 PM EDT Please avoid NSAIDs (motrin, advil, aleve, ibuprofen, naprosyn, diclofenac), as these medications can cause more ulcers and more bleeding. We also recommend that you try your best to quit smoking, as this can also worsen your symptoms. Your next colonoscopy for colon cancer screening should be in 10 years. documented in this [id number] Note* Care Plan Note - Catalina Hyde RN - 12/31/2021 8:07 AM EDT Problem: Routine Care: Goal: Patient care will be managed and maintained throughout hospital stay per unit specific routine care procedure Outcome: Progressing Problem: Fluid and Electrolyte Imbalance: Goal: Adequate fluid and electrolyte balance will be achieved and maintained Outcome: Progressing Goal: Will show no signs and symptoms of excessive bleeding Outcome: Progressing Problem: Hemodynamic Instability: Goal: Hemodynamic stability will be achieved and maintained Outcome: Progressing Problem: Acute Pain: Goal: Ability to identify pain intensity on a pain scale and rate it consistently will be achieved and maintained Outcome: Progressing Goal: Acceptable level of pain which allows the patient to achieve functional outcome goals Outcome: Progressing Problem: VTE Prophylaxis: Goal: Will be free of DVT Outcome: Progressing Problem: Safety: Goal: Patient will remain free of falls during hospital stay Outcome: Progressing Goal: Free from injury during hospitalization Outcome: Progressing Problem: Discharge Planning: Goal: Discharge needs of the adult patient will be met Outcome: Progressing [id number] Miscellaneous Notes* Care Plan Note - Catalina Hyde RN - 12/31/2021 8:07 AM EDT Problem: Routine Care: Goal: Patient care will be managed and maintained throughout hospital stay per unit specific routine care procedure Outcome: Progressing Problem: Fluid and Electrolyte Imbalance: Goal: Adequate fluid and electrolyte balance will be achieved and maintained Outcome: Progressing Goal: Will show no signs and symptoms of excessive bleeding Outcome: Progressing Problem: Hemodynamic Instability: Goal: Hemodynamic stability will be achieved and maintained Outcome: Progressing Problem: Acute Pain: Goal: Ability to identify pain intensity on a pain scale and rate it consistently will be achieved and maintained Outcome: Progressing Goal: Acceptable level of pain which allows the patient to achieve functional outcome goals Outcome: Progressing Problem: VTE Prophylaxis: Goal: Will be free of DVT Outcome: Progressing Problem: Safety: Goal: Patient will remain free of falls during hospital stay Outcome: Progressing Goal: Free from injury during hospitalization Outcome: Progressing Problem: Discharge Planning: Goal: Discharge needs of the adult patient will be met Outcome: Progressing * OP Note - Davon Ha MD - 12/30/2021 10:03 AM EDT Morena Patton [id number] 12/30/2021 HISTORY & PHYSICAL: Patient's history with special attention to the cardiovascular, pulmonary systems and the current problem was reviewed with the patient immediately prior to the procedure. Medications, allergies, and pertinent laboratory tests were also reviewed at this time. The physical exa mination,as below, was then performed. Patient assessed to be ASA Class II Mallampati Airway Assessment: Class II Faucial pillars, soft palate visible History of adverse reactions involving sedation/anesthesia. None reported. Family history of adverse reaction to sedation/anesthesia. None reported. PHYSICAL EXAMINATION Vitals: 12/30/21 0600 BP: 143/84 Pulse: 80 Resp: 20 Temp: 98.1 F (36.7 C) SpO2: 100% Mouth and Pharynx : Normal dentia/ oropharynx, clear Cardiac: regular rate and rhythm Pulmonary: Chest clear to auscultation bilaterally Neurological: normal without focal findings, mental status, speech normal, alert and oriented Abdomen: Abdomen soft, non-tender. BS normal Written informed consent obtained from patient. Risks (including but not limited to perforation, bloating and bleeding,) benefits and alternatives explained and questions answered. Patient verbalizedunderstanding. Based on history and airway assessment patient is an appropriate candidate for moderate sedation. Todd Ortiz MD 12/30/21 10:03 AM Morena Patton [id number] 12/30/2021 JEEP MECHANIC: Todd Ortiz MD ATTENDING:Davon Ha MD ([id number]) Procedure(s): ESOPHAGOGASTRODUODENOSCOPY AND COLONOSCOPY INSTRUMENT: Scope #[id number] COLONOSCOPE #3006 SEDATION: Moderate: Oxygen 2L via nasal cannula, Demerol 125 mg IV / Versed 5 mg IV Moderate sedation intraservice total time was 47 minutes. Moderate sedation provided by the same provider performing the procedure. Pre-Op Diagnosis Codes: * Gastrointestinal hemorrhage, unspecified gastrointestinal hemorrhage type [K92.2] INDICATIONS: This is a 61 year old female with PMHx significant for RYGB c/b marginal ulcer, HTN, LAURENCE, chronic pain, EtOH use disorder who presents for an EGD for evaluation of chronic PORTIA and reported episodes of coffee ground emesis. Last EGD in 2018 showed anastomotic ulcer and colonoscopy in 2009 *no reports available). While monitoring the patient with EKG, pulse oximetry and BP, endoscope passed through the remnant stomach into the jejunum by direct visualization. JEJUNUM: Alimentary limb appeared normal GASTROJEJUNAL ANASTOMOSIS: Two clean based ulcers (Providence Class III) with surrounding erythematous mucosa noted at the gastrojejunal anastomosis site. 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 This fistula was traversed with the endoscope and gastric antrum and the pylorus were visualized. Endoscope was advanced through the pylorus and duodenum was evaluated. Mild duodenal bulbar mucosal erythema consistent with mild duodenitis. ESOPHAGUS: Diaphragmatic hiatus was 40 cm from incisors and GE junction (upper margin of gastric folds) was at 40 cm from incisors. Squamocolumnar junction was at 40 cm from incisors. Mucosa appearednormal. Patient was turned for colonoscopy. Patient examined. Anus and digital rectal exam were Normal. While monitoring the patient with EKG, pulse oximetry and BP, colonoscope passed into cecum, which was identified by ileo-cecal valve, appendical orifice and transillumination of right lower quadrant. Prep was Berlin Bowel Prep Right Colon: Minor amount of residual staining, small fragments of stool and/or opaque liquid, Berlin Bowel Prep Transverse Colon: Entire colon seen well, [place] Bowel Prep Left Colon:Minor amount of residual staining, small fragments of stool and/or opaque liquid or Good (Large volume of clear liquid covering 5% to 25% of the surface but greater than 90% of surface seen). FINDINGS: Cecum: Normal. Ascending Colon: Normal. Hepatic Flexure: Normal. Transverse Colon: Normal. Splenic Flexure: Normal. Descending Colon: Normal. Sigmoid Colon: Normal. Rectum: Normal. Retroflexed Views: Rectum did not show internal hemorrhoids. Syncope and collapse (Primary Diagnosis) [780.2.ICD-9-CM] Peptic ulcer [706248] Gastrointestinal hemorrhage, unspecified gastrointestinal hemorrhage type [3214180] 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-en-Y gastric bypass [175293] Anastomotic ulcer [866384] Chronic iron deficiency anemia [7705397] JANIE PATH SPECIMEN SENT: no SPECIMEN: None PHOTOGRAPH TAKEN:yes COMPLICATIONS DURING PROCEDURE: none EBL (estimated blood loss): none IMPRESSION: 1. Two clean based (Providence Class III) ulcers noted at the anastomosis site, likely etiology of coffee ground emesis and anemia 2. Gastric anatomy post Cj-en-Y surgery. 3. 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 Mucosa appeared normal in the excluded stomach. 4. Mild bulbar duodenitis 5. No polyps or mass lesions noted in the colon. RECOMMENDATIONS: 1. Continue with PPI BID for 14 days and then switch to once daily 2. Recommend iron supplementation 3. Recommend quit smoking 4. Avoid NSAIDs (motrin, advil, aleve, ibuprofen, naprosyn, diclofenac) 5. Next colonoscopy for CRC screening in 10 years. GI will sign off now, but please don't hesitate to reach out if additional questions or concerns arise. CC: Primary Care/Referring Physician(s): No primary care provider on file. PERSON COMPLETING NOTE: Todd Ortiz MD 12/30/2021 at 11:20 AM Patient meets criteria for discharge/transfer: Dr. Todd Ortiz ATTENDING NOTE: I was present during and participated in this procedure, and have reviewed and agree with the findings. Davon Ha MD Department of Gastroenterology & Hepatology * Care Plan Note - Kimi Amezcua RN - 12/30/2021 4:43 AM EDT Problem: Routine Care: Goal: Patient care will be managed and maintained throughout hospital stay per unit specific routine care procedure Outcome: Progressing Problem: Fluid and Electrolyte Imbalance: Goal: Adequate fluid and electrolyte balance will be achieved and maintained Outcome: Progressing Goal: Will show no signs and symptoms of excessive bleeding Outcome: Progressing Problem: Hemodynamic Instability: Goal: Hemodynamic stability will be achieved and maintained Outcome: Progressing Problem: Acute Pain: Goal: Ability to identify pain intensity on a pain scale and rate it consistently will be achieved and maintained Outcome: Progressing Goal: Acceptable level of pain which allows the patient to achieve functional outcome goals Outcome: Progressing Problem: VTE Prophylaxis: Goal: Will be free of DVT Outcome: Progressing Problem: Safety: Goal: Patient will remain free of falls during hospital stay Outcome: Progressing Goal: Free from injury during hospitalization Outcome: Progressing Problem: Discharge Planning: Goal: Discharge needs of the adult patient will be met Outcome: Progressing * Care Plan Note - Luis Daniel Ahumada MD - 12/28/2021 9:42 PM EDT Images from the original note were not included. INTERNAL MEDICINE TEAM 9 SENIOR RESIDENT ADMISSION NOTE Name: Morena Chandra CC: syncope and coffee ground emesis S: Morena Chandra is a 61 year old female with a PMH of RYGB (1999), PUD(marginal ulcer?), HTN, GERD, PORTIA, depression, chronic back pain, OA, LAURENCE (CPAP ?) Etoh abuse who presents for coffee ground emesis (2 episodes, one in the ED), asthma (PFTs in 2012, with minimal obstructive impairement and mild response to bronchodilators), one episode of syncope. Patient reports that she was drinking a seltzer. Patient doesn't remember the syncopal episode, she was told it lasted for 5 minutes. Patient reports that felt dizzy, nauseous, and weakness before the episode, but denies any incontinence or anyseizure like activity as per the daughter. Patient also had post ictal confusion as well. Patient reports also having abdominal pain in the epigastric region radiating to the back and took some ASA containing product for the pain. Patient denies any melena, hematochezia. Patient had one episode of coffee ground emesis . Patient quit smoking 2 years ago, drinks alcohol occasionally, no drug abuse O: BP 114/56 Pulse 66 Temp 98.2 F (36.8 C) (Oral) Resp 15 LMP 08/27/2002 SpO2 99% Physical Exam Constitutional: Appearance: Normal appearance. Cardiovascular: Pulses: Normal pulses. Heart sounds: Normal heart sounds. Pulmonary: Effort: Pulmonary effort is normal. Abdominal: General: Abdomen is flat. Palpations: Abdomen is soft. Comments: epigastric tenderness Musculoskeletal: Right lower leg: Edema present. Left lower leg: Edema present. Skin: General: Skin is warm. Neurological: General: No focal deficit present. Mental Status: She is alert and oriented to person, place, and time. Labs: Basic Metabolic Panel Na K Cl CO2 Gap Glu BUN Cr Ca Mg PO4 12/28/21 1721 132 4.7 Comment: Hemolysis present 103 17 17 112 17 1.13 9.3 CBC/PT/INR WBC RBC Hgb Hct MCV RDW Plt PT aPTT INR 12/28/21 1721 4.3 4.20 10.5 32.0 76 18.9 251 WBC/Diff Neutro% Lymph% Eos% Seg% Bands% 12/28/21 1721 55.8 36.6 0.6 Hepatic/Biliary/Pancreas T Prot Albumin D Bili T Bili Alk Phos ALT AST Amylase Lipase 12/28/21 1721 5.7 3.3 0.30 0.8 78 13 21 Comment: Hemolysis present 12/28/21 1721 23 Arterial Blood Gases None PT/INR None Creatinine clearance from [facility]roft-Gault: 49 ml/min using IBW 59.3 kg (actual weight 61.6 kg ignored) GFR from MDRD: 59.3 ml/min/1.73 sq m age 61 yr, cr=1.13 on 12/28/2021, race Black / Cardiac Troponin I CK total CK-MB BNP 12/28/21 1744 <0.030 Comment: Range <=0.04 ng/mL: Negative Interpretation: Repeat testing in four to six hours if clinically indicated. Range 0.04-0.11 ng/mL: Suspected for acute myocardial injury. Interpretation: Serial measurements may be necessary to confirm or exclude the diagnosis of acute coronary syndrome. Repeat testing in four to six hours if clinically indicated. Range >=0.12 ng/mL: Results consistent with myocardial injury. Interpretation: Clinical and laboratory correlation recommended. Fingerstick Glucose (last 72 hours) None No results found for: HBA1C TSH (high sens.) (uIU/mL) Date Value 07/11/2002 .755 02/16/2002 1.25 Blood Culture None Urine Culture (last 1 year) None Pyogen Culture None Respiratory Culture, Misc None PERTINENT IMAGING/STUDIES: EKG: NSR CXR: none CTH: none Echo OSH for CVA in 2020 Left Ventricle Normal LV size. Left ventricular systolic function is normal. The estimated ejection fraction is 60 %. Stage 1 diastolic dysfunction. No regional wall motion abnormalities noted. Right Ventricle Normal RV size. Normal systolic function. Atria Normal left atrium. Normal right atrium. Bubble contrast study negative for right to left interatrial shunt. Mitral Valve Normal mitral valve. Tricuspid Valve Normal tricuspid valve. Mild (1+) tricuspid valve insufficiency. Pulmonary artery systolic pressure is 25 mmHg. Aortic Valve Trisinus/trileaflet aortic valve. Mild (1+) aortic valve insufficiency. Pulmonic Valve Normal pulmonic valve. Great Vessels Normal aortic root. The pulmonary artery is normal size. Normal inferior vena cava. Pericardium/Pleural No pericardial effusion. EGD 06/14/19 & GI Recs: IMPRESSION: 1. Anastomotic ulcer which is the likely etiology of melena and anemia s/p clip placement and thermal therapy with hemostasis 2. 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 Normal remnant stomach RECOMMENDATIONS: 1. Avoid smoking and NSAIDs 2. Continue high dose PPI twice daily 30 min before breakfast and dinner. 3. Can get Upper GI series to further evaluate the fistula/anatomy 4. Further recommendations as per the GI consult team A/P: Morena PattonNerisSabina is a 61 year old female with a PMH of RYGB (1999), marginal ulcer, HTN, GERD, PORTIA, depression, chronic back pain, OA, Etoh abuse who presents for coffee ground emesis (2 episodes, one in the ED), one episode of syncope. #Coffee ground emesis -hx of PUD, marginal ulcer, recent use of NSAID (stanback for back pain) -two episodes of coffee ground emesis - no melena or hematochezia Plan: -Keep patient NPO -nexium 40 IV PPI BID -avoid NSAIDs -trend CBCD daily , if no further episodes of coffee ground emesis -GI consult for further management of marginal ulcer, counseled about cigar/smoking cessation, etohabuse #Syncope -one episode today,no recollection of episode, lasted 5 min according to family -did have some prodromal symptoms -ddx: vasovagal, cardiac syncope, orthostatic Plan: -repeat echocardiogram -continuous telemetry -orthostatic vital signs -fall precautions #alcohol use -pt reports drinking white liquor, sometimes several times a week -denies any alcohol withdrawal sx in the past Plan: -CIWA score #Chronic medical management -asthma: respiratory assesor -LAURENCE: not using cpap -HTN: hold lisinopril, fu orthostatics Prophylaxis: SCD, given episode of coffee ground emesis Analgesia: tyelnol Diet/Fluids: NPO Code: Full Code Dispo: Inpatient Rest of plan per advisory internship note. To be discussed with attending physician in the morning. Plan is preliminary until finalized by the attending physician. Luis Daniel Ahumada Internal Medicine, PGY-2 Pager: [phone] documented in this [id number] Note* OP Note - Davon Ha MD - 12/30/2021 10:03 AM EDT Morena Patton [id number] 12/30/2021 HISTORY & PHYSICAL: Patient's history with special attention to the cardiovascular, pulmonary systems and the current problem was reviewed with the patient immediately prior to the procedure. Medications, allergies, and pertinent laboratory tests were also reviewed at this time. The physical exa mination,as below, was then performed. Patient assessed to be ASA Class II Mallampati Airway Assessment: Class II Faucial pillars, soft palate visible History of adverse reactions involving sedation/anesthesia. None reported. Family history of adverse reaction to sedation/anesthesia. None reported. PHYSICAL EXAMINATION Vitals: 12/30/21 0600 BP: 143/84 Pulse: 80 Resp: 20 Temp: 98.1 F (36.7 C) SpO2: 100% Mouth and Pharynx : Normal dentia/ oropharynx, clear Cardiac: regular rate and rhythm Pulmonary: Chest clear to auscultation bilaterally Neurological: normal without focal findings, mental status, speech normal, alert and oriented Abdomen: Abdomen soft, non-tender. BS normal Written informed consent obtained from patient. Risks (including but not limited to perforation, bloating and bleeding,) benefits and alternatives explained and questions answered. Patient verbalizedunderstanding. Based on history and airway assessment patient is an appropriate candidate for moderate sedation. Todd Ortiz MD 12/30/21 10:03 AM Morena Patton [id number] 12/30/2021 JEEP MECHANIC: Todd Ortiz MD ATTENDING:Davon Ha MD ([id number]) Procedure(s): ESOPHAGOGASTRODUODENOSCOPY AND COLONOSCOPY INSTRUMENT: Scope #[id number] COLONOSCOPE #3006 SEDATION: Moderate: Oxygen 2L via nasal cannula, Demerol 125 mg IV / Versed 5 mg IV Moderate sedation intraservice total time was 47 minutes. Moderate sedation provided by the same provider performing the procedure. Pre-Op Diagnosis Codes: * Gastrointestinal hemorrhage, unspecified gastrointestinal hemorrhage type [K92.2] INDICATIONS: This is a 61 year old female with PMHx significant for RYGB c/b marginal ulcer, HTN, LAURENCE, chronic pain, EtOH use disorder who presents for an EGD for evaluation of chronic PORTIA and reported episodes of coffee ground emesis. Last EGD in 2018 showed anastomotic ulcer and colonoscopy in 2009 *no reports available). While monitoring the patient with EKG, pulse oximetry and BP, endoscope passed through the remnant stomach into the jejunum by direct visualization. JEJUNUM: Alimentary limb appeared normal GASTROJEJUNAL ANASTOMOSIS: Two clean based ulcers (Providence Class III) with surrounding erythematous mucosa noted at the gastrojejunal anastomosis site. 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 This fistula was traversed with the endoscope and gastric antrum and the pylorus were visualized. Endoscope was advanced through the pylorus and duodenum was evaluated. Mild duodenal bulbar mucosal erythema consistent with mild duodenitis. ESOPHAGUS: Diaphragmatic hiatus was 40 cm from incisors and GE junction (upper margin of gastric folds) was at 40 cm from incisors. Squamocolumnar junction was at 40 cm from incisors. Mucosa appearednormal. Patient was turned for colonoscopy. Patient examined. Anus and digital rectal exam were Normal. While monitoring the patient with EKG, pulse oximetry and BP, colonoscope passed into cecum, which was identified by ileo-cecal valve, appendical orifice and transillumination of right lower quadrant. Prep was Berlin Bowel Prep Right Colon: Minor amount of residual staining, small fragments of stool and/or opaque liquid, Berlin Bowel Prep Transverse Colon: Entire colon seen well, Berlin Bowel Prep Left Colon:Minor amount of residual staining, small fragments of stool and/or opaque liquid or Good (Large volume of clear liquid covering 5% to 25% of the surface but greater than 90% of surface seen). FINDINGS: Cecum: Normal. Ascending Colon: Normal. Hepatic Flexure: Normal. Transverse Colon: Normal. Splenic Flexure: Normal. Descending Colon: Normal. Sigmoid Colon: Normal. Rectum: Normal. Retroflexed Views: Rectum did not show internal hemorrhoids. Syncope and collapse (Primary Diagnosis) [780.2.ICD-9-CM] Peptic ulcer [228902] Gastrointestinal hemorrhage, unspecified gastrointestinal hemorrhage type [4685932] 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-en-Y gastric bypass [053415] Anastomotic ulcer [020878] Chronic iron deficiency anemia [3287212] JANIE PATH SPECIMEN SENT: no SPECIMEN: None PHOTOGRAPH TAKEN:yes COMPLICATIONS DURING PROCEDURE: none EBL (estimated blood loss): none IMPRESSION: 1. Two clean based (Providence Class III) ulcers noted at the anastomosis site, likely etiology of coffee ground emesis and anemia 2. Gastric anatomy post Cj-en-Y surgery. 3. 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 Mucosa appeared normal in the excluded stomach. 4. Mild bulbar duodenitis 5. No polyps or mass lesions noted in the colon. RECOMMENDATIONS: 1. Continue with PPI BID for 14 days and then switch to once daily 2. Recommend iron supplementation 3. Recommend quit smoking 4. Avoid NSAIDs (motrin, advil, aleve, ibuprofen, naprosyn, diclofenac) 5. Next colonoscopy for CRC screening in 10 years. GI will sign off now, but please don't hesitate to reach out if additional questions or concerns arise. CC: Primary Care/Referring Physician(s): No primary care provider on file. PERSON COMPLETING NOTE: Todd Ortiz MD 12/30/2021 at 11:20 AM Patient meets criteria for discharge/transfer: Dr. Todd Ortiz ATTENDING NOTE: I was present during and participated in this procedure, and have reviewed and agree with the findings. Davon Ha MD Department of Gastroenterology & Hepatology [id number] Note* Care Plan Note - Kimi Amezcua RN - 12/30/2021 4:43 AM EDT Problem: Routine Care: Goal: Patient care will be managed and maintained throughout hospital stay per unit specific routine care procedure Outcome: Progressing Problem: Fluid and Electrolyte Imbalance: Goal: Adequate fluid and electrolyte balance will be achieved and maintained Outcome: Progressing Goal: Will show no signs and symptoms of excessive bleeding Outcome: Progressing Problem: Hemodynamic Instability: Goal: Hemodynamic stability will be achieved and maintained Outcome: Progressing Problem: Acute Pain: Goal: Ability to identify pain intensity on a pain scale and rate it consistently will be achieved and maintained Outcome: Progressing Goal: Acceptable level of pain which allows the patient to achieve functional outcome goals Outcome: Progressing Problem: VTE Prophylaxis: Goal: Will be free of DVT Outcome: Progressing Problem: Safety: Goal: Patient will remain free of falls during hospital stay Outcome: Progressing Goal: Free from injury during hospitalization Outcome: Progressing Problem: Discharge Planning: Goal: Discharge needs of the adult patient will be met Outcome: Progressing [id number] History and physical note* Orestes Gaspar MD - 12/29/2021 2:16 PM EDT Images from the original note were not included. Attending/Teaching Physician Note: I saw and evaluated Morena CHANDRA. I personally obtained the bates and critical portions of the history and physical exam. I reviewed the student/resident's documentation and discussed the patient with the student/resident. I agree with the student/resident's medical decision making as documentedin the student/resident's note. Additional Findings, Impression and Plan: 61 yo woman presents after syncope associated with coffee ground emesis. PMH: Cj-en-Y gastric bypass 1999, PUD, HTN, PORTIA, ETOH (sober 3 years), PTSD, LBP On exam, WD WN woman in NAD 136# Patient Vitals for the past 24 hrs: BP Temp Temp src Pulse Resp SpO2 O2 Device 12/29/21 1405 119/74 98.2 F (36.8 C) Oral 73 (!) 21 99 % Room air 12/29/21 1228 132/84 98.2 F (36.8 C) Oral 63 (!) 21 99 % Room air 12/29/21 1030 129/97 -- -- 71 15 100 % -- 12/29/21 0900 101/81 -- -- 78 16 100 % -- 12/29/21 0851 128/82 98 F (36.7 C) Oral 66 20 100 % Room air 12/29/21 0707 -- -- -- 67 16 98 % -- 12/29/21 0444 110/65 -- -- 60 16 95 % Room air 12/28/21 2243 -- -- -- 66 15 99 % -- 12/28/21 1900 -- -- -- 86 (!) 24 100 % -- 12/28/21 1800 -- -- -- 87 19 98 % -- 12/28/21 1710 -- 98.2 F (36.8 C) Oral 93 19 97 % Room air 12/28/21 1709 114/56 -- -- -- -- -- -- Skin: no rashes Chest w/o w/c CV: rrr w/o m/r/g Abd soft not tender +BS No HSM; midline scar Ext: no c/c/e Neuro: nonfocal Psych: alert and cooperative ECG (personal review): NSR unchanged X-ray (personal review): CXR: No imaging Labs: Basic Metabolic Panel Na K Cl CO2 Gap Glu BUN Cr Ca Mg PO4 12/28/21 1721 132 4.7 Comment: Hemolysis present 103 17 17 112 17 1.13 9.3 CBC/PT/INR WBC RBC Hgb Hct MCV RDW Plt PT aPTT INR 12/29/21 0608 4.3 3.92 10.0 29.9 76 18.8 195 12/28/21 1721 4.3 4.20 10.5 32.0 76 18.9 251 Hepatic/Biliary/Pancreas T Prot Albumin D Bili T Bili Alk Phos ALT AST Amylase Lipase 12/28/21 172 5.7 3.3 0.30 0.8 78 13 21 Comment: Hemolysis present 12/28/21 172 23 Impression: 1. Syncope ?related to #2 2. Coffee ground emesis 3. S/P gastric bypass for obesity 4. HTN: stable 5. PTSD Plan: 1. Okay to eat today (pt very hungry) 2. GI consult for EGD +/- colonoscopy 3. Continue usual meds Orestes Gaspar MD [id number] History and physical note* Orestes Gaspar MD - 12/29/2021 2:16 PM EDT Images from the original note were not included. Attending/Teaching Physician Note: I saw and evaluated Morena CHANDRA. I personally obtained the bates and critical portions of the history and physical exam. I reviewed the student/resident's documentation and discussed the patient with the student/resident. I agree with the student/resident's medical decision making as documentedin the student/resident's note. Additional Findings, Impression and Plan: 61 yo woman presents after syncope associated with coffee ground emesis. PMH: Cj-en-Y gastric bypass 1999, PUD, HTN, PORTIA, ETOH (sober 3 years), PTSD, LBP On exam, WD WN woman in NAD 136# Patient Vitals for the past 24 hrs: BP Temp Temp src Pulse Resp SpO2 O2 Device 12/29/21 1405 119/74 98.2 F (36.8 C) Oral 73 (!) 21 99 % Room air 12/29/21 1228 132/84 98.2 F (36.8 C) Oral 63 (!) 21 99 % Room air 12/29/21 1030 129/97 -- -- 71 15 100 % -- 12/29/21 0900 101/81 -- -- 78 16 100 % -- 05/30/22 0851 128/82 98 F (36.7 C) Oral 66 20 100 % Room air 12/29/21 0707 -- -- -- 67 16 98 % -- 12/29/21 0444 110/65 -- -- 60 16 95 % Room air 12/28/21 2243 -- -- -- 66 15 99 % -- 12/28/21 1900 -- -- -- 86 (!) 24 100 % -- 12/28/21 1800 -- -- -- 87 19 98 % -- 12/28/21 1710 -- 98.2 F (36.8 C) Oral 93 19 97 % Room air 12/28/21 1709 114/56 -- -- -- -- -- -- Skin: no rashes Chest w/o w/c CV: rrr w/o m/r/g Abd soft not tender +BS No HSM; midline scar Ext: no c/c/e Neuro: nonfocal Psych: alert and cooperative ECG (personal review): NSR unchanged X-ray (personal review): CXR: No imaging Labs: Basic Metabolic Panel Na K Cl CO2 Gap Glu BUN Cr Ca Mg PO4 12/28/21 1721 132 4.7 Comment: Hemolysis present 103 17 17 112 17 1.13 9.3 CBC/PT/INR WBC RBC Hgb Hct MCV RDW Plt PT aPTT INR 12/29/21 0608 4.3 3.92 10.0 29.9 76 18.8 195 12/28/21 1721 4.3 4.20 10.5 32.0 76 18.9 251 Hepatic/Biliary/Pancreas T Prot Albumin D Bili T Bili Alk Phos ALT AST Amylase Lipase 12/28/21 1721 5.7 3.3 0.30 0.8 78 13 21 Comment: Hemolysis present 12/28/21 1721 23 Impression: 1. Syncope ?related to #2 2. Coffee ground emesis 3. S/P gastric bypass for obesity 4. HTN: stable 5. PTSD Plan: 1. Okay to eat today (pt very hungry) 2. GI consult for EGD +/- colonoscopy 3. Continue usual meds Orestes Gaspar MD * Viviane Goetz MD - 12/28/2021 8:54 PM EDT Images from the original note were not included. INTERNAL MEDICINE TEAM 9 HISTORY AND PHYSICAL Patient: Morena Chandra : 1960 Sex: female Room: [place] [id number] Admit Date: 12/28/2021 Today's Date: 12/28/2021 Length of stay: 1 day(s) CHIEF COMPLAINT: Syncope Coffee-ground emesis HPI: 61 year old female with a history of Cj-en-y Gastric bypass (1999), reported hx PUD (marginal (?)), HTN, PORTIA, depression, GERD, EtOH abuse, PTSD, chronic low back pain, and OA who presented to ED 12/28/21 with syncope, and reportedly had at least one episode of coffee ground emesis while in the ED. - Was reportedly visiting family and felt weak, felt that she couldn't stand long, asked for ice water, and doesn't remember anything after that - [place] her face was cold/had cold towels on it, woke up and started to feel nauseous - Was told by witnesses that she lost consciousness for 5 minutes, eyes rolled to back of her head - Does state that she was confused after the episode, although seems to endorse being told she was confused prior to the episode as well - Has been having back pain and epigastric pain for the past few days - Tried hemp oil and didn't work - Also took some type of medication (name unclear) that includes ASA in a powder form - Presence of prodrome unclear: Patient endorses dizziness/lightheadedness, and weakness. However, unsure of presence of diaphoresis/vision changes/palpitations/nausea - Was sitting in a recliner/spring/summer chair during the event - Was told she was holding a cup of ice water and fell out of her hand - Although does endorse being admitted in the past for LGIB, denies this type of UGIB or syncope ever happening in the past - Additionally endorses L arm and neck pain - Patient unsure if ever tested for H. Pylori - Just occasional etoh use, no hx liver dz or cirrhosis - No hx of AAA or aortic graft that patient knows of - Denies pain or trouble swallowing, endorses GERD - No vomiting, no gagging before hand, no coughing (nothing to suggest MW tear) - Denies weight loss, difficult to tell if early satiety since had bariatric surgery - Does endorse hx of ulcers and anemia, unsure of severity of anemia - Denies blood in stool or tarry, black stools Med Rec: Done Meds taken today: None Code: Full code confirmed Patient seen and examined at bedside. Endorsing back and belly pain. REVIEW OF SYSTEMS: Review of Systems Constitutional: Negative for chills and fever. HENT: Negative for congestion and sore throat. Eyes: Negative for blurred vision and pain. Respiratory: Negative for cough and shortness of breath. Cardiovascular: Negative for chest pain and palpitations. Gastrointestinal: Positive for abdominal pain, diarrhea (Few days ago), nausea and vomiting. Negative for blood in stool, constipation, heartburn and melena. Genitourinary: Negative for dysuria and hematuria. Musculoskeletal: Positive for back pain. Negative for falls. Skin: Negative for itching and rash. Neurological: Positive for dizziness. Negative for headaches. IN THE ED: ED Course as of 12/28/212106 Sun December 28, 2021 1808 Hemoglobin(!): 10.5 [SP] 1826 MCV(!): 76 [SP] 1826 Sodium(!): 132 [SP] 1826 Creatinine(!): 1.13 [SP] ED Course User Index [SP] Dwaine Badillo, ED Triage Vitals BP Heart Rate Respiratory Rate Temperature Temperature Source 12/28/21 17012/28/21170912/28/21170912/28/21170912/28/211709 114/56 93 19 98.2 F (36.8 C) Oral SpO2 Weight Height Head Circumference Peak Flow 12/28/211709 -- -- -- -- 97 % Pain Score Pain Loc Pain Edu? Excl. in GC? 12/28/211711 -- -- -- 0 PERTINENT HISTORY: Past Medical History: Past Medical History: Diagnosis Date Acute posttraumatic stress disorder : per snapshot Alcohol abuse Anxiety disorder : per snapshot Chronic lower back pain : per snapshot Constipation : per snapshot Depressive disorder, not elsewhere classified Had a few episodes - will follow GERD (gastroesophageal reflux disease) : per snapshot HTN (hypertension) Human papilloma virus infection Mood disorder (HCC) Morbid obesity (HCC) BMI 36 Osteoarthritis of right knee : per snapshot Prediabetes Past Surgical History: Procedure Laterality Date BARIATRIC SURGERY CPG 2000 SECTION 1978 Lost child COLONOSCOPY 3-03 COLPOSCOPY W/CERVICAL BIOPSY AND ECC 05/21/98 mild dysplasia ESOPHAGOGASTRODUODENOSCOPY N/A 06/14/2019 Procedure: ESOPHAGOGASTRODUODENOSCOPY; Surgeon: Abdullahi David MD; Location: [facility]; Service: Gastroenterology GASTRIC RESTRICTVE PX, W/GASTRIC BYPASS/SHORT LIMB CJ-EN-Y GASTROENTEROSTMY, <150CM 05/26/00 Shira LAPAROSCOPY 1978 ovarian cystectomy Social History: Quit smoking 2 yrs ago, smoked on and off since age 15yo, one pack every 3-4 days, no drug use Social History Tobacco Use Smoking status: Current Some Day Smoker Packs/day: 0.33 Years: 25.00 Pack years: 8.25 Types: Cigarettes Smokeless tobacco: Never Used Tobacco comment: 1 pack last 1-1.5 weeks Substance Use Topics Alcohol use: Yes Comment: hx of ETOH abuse--sober for 3 years, had hx of prior relapses before reports no history of drug use. Family History: Cousin had [place] Review of patient's family history indicates: Problem: Heart Disease Relation: Father Age of Onset: (Not Specified) Problem: Coronary Artery Disease Relation: Father Age of Onset: (Not Specified) Problem: Hypertension Relation: Mother Age of Onset: (Not Specified) Comment: lupus Problem: Other (Other) Relation: Sister Age of Onset: (Not Specified) Problem: Cervical Cancer Relation: Unknown relative Age of Onset: (Not Specified) Problem: Breast Cancer Relation: Negative Family History of Age of Onset: (Not Specified) Problem: Ovarian Cancer Relation: Negative Family History of Age of Onset: (Not Specified) Problem: Uterine Cancer Relation: Negative Family History of Age of Onset: (Not Specified) OBJECTIVE DATA: MEDICATIONS: No current facility-administered medications on file prior to encounter. Current Outpatient Medications on File Prior to Encounter Medication Sig Dispense Refill esomeprazole (NEXIUM) 40 MG capsule Take 1 Capsule by mouth 2 times daily (30 minutes before meals). 120 Capsule 1 topiramate (TOPAMAX) 25 MG tablet Take 1 Tab by mouth 2 times daily. 60 Tab 3 ranitidine (ZANTAC) 150 MG tablet Take 1 Tab by mouth 2 times daily for 14 days. 28 Tab 1 albuterol (PROAIR HFA) inhaler 90 mcg/inh Inhale 2 Puffs every 4 hours as needed for Wheezing. 8.5 g 11 ammonium lactate (LAC-HYDRIN) 12 % lotion Apply 80 mL topically 2 times daily. 500 g 3 beclomethasone (QVAR) 40 MCG/ACT inhaler Inhale 1 Puff 2 times daily. 7.3 g 3 methocarbamol (ROBAXIN-750) 750 MG tablet Take 1 Tab by mouth 4 times daily. 120 Tab 3 tramadol (ULTRAM) 50 MG tablet Take 1 Tab by mouth every 6 hours as needed for Pain. 120 Tab 3 acetaminophen (TYLENOL) 500 MG tablet Take 1 Tab by mouth every 6 hours as needed for Pain or Fever. Take with tramadol 120 Tab 3 lorazepam (ATIVAN) 2 MG tablet Take 1 tablet one hour prior to procedure 3 Tab 0 lisinopril (ZESTRIL) 10 MG tablet Take 1 Tab by mouth daily. 30 Tab 3 Vit-Fe Fumarate-FA ( PLUS) tablet Take 1 Tab by mouth daily. 30 Tab 11 gabapentin (NEURONTIN) 300 MG capsule Take 1-4 Caps by mouth 3 times daily. 360 Cap 1 Beclomethasone Dipropionate (QVAR INHALATION) Inhale. TRIAMTERENE-HCTZ ORAL Take by mouth. FLUOCINOLONE ACETONIDE EXTERNAL Apply externally. Cyanocobalamin 1000 MCG/ML KIT by Injection route. PATIENT DATA: BP 114/56 Pulse 86 Temp 98.2 F (36.8 C) (Oral) Resp (!) 24 LMP 08/27/2002 SpO2 100% No intake or output data in the 24 hours ending 12/28/212054 PHYSICAL EXAM: Physical Exam Vitals reviewed. Constitutional: General: She is not in acute distress. Appearance: Normal appearance. She is not ill-appearing or toxic-appearing. Cardiovascular: Rate and Rhythm: Normal rate and regular rhythm. Heart sounds: No murmur heard. No friction rub. Pulmonary: Effort: Pulmonary effort is normal. No respiratory distress. Comments: CTAB posteriorly Abdominal: Palpations: Abdomen is soft. Tenderness: There is abdominal tenderness (LUQ, mild). Musculoskeletal: Right lower leg: Edema present. Left lower leg: Edema present. Neurological: Mental Status: She is alert and oriented to person, place, and time. Comments: Strength of elbow flexion and extension intact and symmetric bilaterally. Strength of hipflexion and extension intact and symmetric bilaterally. AAOx3 although does seem a bit confused andslow to respond. Psychiatric: Mood and Affect: Mood normal. Lines/Drains Peripheral IV Access: 12/28/21 (Active) Number of days: 0 LAB DATA: Basic Metabolic Panel Na K Cl CO2 Gap Glu BUN Cr Ca Mg PO4 12/28/21 1721 132 4.7 Comment: Hemolysis present 103 17 17 112 17 1.13 9.3 CBC/PT/INR WBC RBC Hgb Hct MCV RDW Plt PT aPTT INR 12/28/21 172 4.3 4.20 10.5 32.0 76 18.9 251 WBC/Diff Neutro% Lymph% Eos% Seg% Bands% 12/28/21 172 55.8 36.6 0.6 Hepatic/Biliary/Pancreas T Prot Albumin D Bili T Bili Alk Phos ALT AST Amylase Lipase 12/28/21 172 5.7 3.3 0.30 0.8 78 13 21 Comment: Hemolysis present 12/28/21 1721 23 Arterial Blood Gases None PT/INR None Creatinine clearance from [facility]: 49 ml/min using IBW 59.3 kg (actual weight 61.6 kg ignored) GFR from MDRD: 59.3 ml/min/1.73 sq m age 61 yr, cr=1.13 on 12/28/2021, race Black / Cardiac Troponin I CK total CK-MB BNP 12/28/21 1744 <0.030 Comment: Range <=0.04 ng/mL: Negative Interpretation: Repeat testing in four to six hours if clinically indicated. Range 0.04-0.11 ng/mL: Suspected for acute myocardial injury. Interpretation: Serial measurements may be necessary to confirm or exclude the diagnosis of acute coronary syndrome. Repeat testing in four to six hours if clinically indicated. Range >=0.12 ng/mL: Results consistent with myocardial injury. Interpretation: Clinical and laboratory correlation recommended. Fingerstick Glucose (last 72 hours) None No results found for: HBA1C TSH (high sens.) (uIU/mL) Date Value 07/11/2002 .755 02/16/2002 1.25 Blood Culture None Urine Culture (last 1 year) None Pyogen Culture None Respiratory Culture, Misc None CARDIAC FINDINGS: ECG: RR, NSR IMAGING/OTHER: EGD 06/14/2019 IMPRESSION: 1. Anastomotic ulcer which is the likely etiology of melena and anemia s/p clip placement and thermal therapy with hemostasis 2. 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 Normal remnant stomach RECOMMENDATIONS: 1. Avoid smoking and NSAIDs 2. Continue high dose PPI twice daily 30 min before breakfast and dinner. 3. Can get Upper GI series to further evaluate the fistula/anatomy 4. Further recommendations as per the GI consult team ASSESSMENT AND PLAN: SUMMARY: 61 year old female with a history of Cj-en-y Gastric bypass (1999), reported hx PUD (marginal (?)), HTN, PORTIA, depression, GERD, EtOH abuse, PTSD, chronic low back pain, and OA who presented to ED 12/28/21 with syncope, and reportedly had at least one episode of coffee ground emesis while in the ED. PROBLEM LIST: #Syncope - Unclear prodrome (dizziness and lightheadedness, questionable nausea, unclear if diaphoretic or with vision changes) - Less likely seizure-like activity (questionable confusion/post-ictal state, no incontinence, age group, etc. Although will need to confirm with family) - Potentially related to low Hbg level as described below Plan: - Orthostatic VS - ECHO - Continuous telemetry - Fall precautions #UGIB #Microcytic anemia - Episode of coffee ground emesis in context of Cj-en-y gastric bypass and chronic anemia, as well as hx of reported PUD - Hx extensive GI/surgical procedures, likely baseline anemia with unchanged severity - EGD 06/14/2019: anastomotic ulcer as likely etiology of melena and anemia s/p clip placement and thermal therapy with hemostasis; with anatomy consistent with prior gastrojejunal anastomosis (Cj)and 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, and evidence of normal remnant stomach - Endorses epigastric pain and back pain for the preceding several days - Endorses taking an unclear medication containing powdered ASA Plan: - Keep NPO - IV Nexium BID 40mg - CBC in AM (daily) - GI consult in AM - Please avoid NSAIDs Chronic Medical Conditions: #Asthma - Respiratory assessors #PORTIA - Repeat CBC daily, can consider getting iron studies #GERD - IV PPI as above #HTN - Holding home meds at this time, monitor BP #LAURENCE - Likely needs outpatient sleep clinic follow up Prophylaxis: SCDs Analgesia: Tylenol PRN Diet/Fluids: No diet orders on file Code: Prior Dispo: Per PT/OT recommendations Outpatient followup: PCP, GI Plan is preliminary until finalized by Attending. Viviane Goetz MD Internal Medicine, PGY-1 Personal Pager: [phone] Team 9 Pager [phone] documented in this [id number] Consult note* Davon Ha MD - 12/29/2021 10:00 AM EDTAssociated Order(s): IP GASTROENTEROLOGY CONSULT Images from the original note were not included. Department of Gastroenterology and Hepatology Consult H&P Note GI Attending Physician: Dr. Davon Ha MD ([id number]) Patient: Morena CHANDRA Location: Reason for Consult: coffee ground emesis, iron deficiency anemia HPI Morena CHANDRA is a 61 year old female with history notable for RYGB c/b marginal ulcer, HTN, LAURENCE, chronic pain, EtOH use disorder, tobacco use disorder for whom gastroenterology was consulted foriron deficiency anemia with 2 episodes of coffee ground emesis. Patient notes 3-4 days of severe upper abdominal pain radiating to back limiting PO intake f/b emesis yesterday which made her come to ED. Emesis was mostly clear with some dark material and specks of blood in it. Denies retching. Notes taking Stanback which is an ASA based powder 4 times over last few days for pain. Denies other NSAID use. Denies AC use. Notes smoking cigars daily. Also notes drinking 2-3 24 oz beers every night to help with sleep. No THC use. No blood in stool but has noted melena 2-3 times few weeks ago. Last EGD was in 2018 with marginal ulcer s/p BICAP and hemoclip. Last colonoscopy was in 2009. Denies FH of CRC. Medical and Surgical Histories Past Medical History: Diagnosis Date Acute posttraumatic stress disorder : per snapshot Alcohol abuse Anxiety disorder : per snapshot Chronic lower back pain : per snapshot Constipation : per snapshot Depressive disorder, not elsewhere classified Had a few episodes - will follow GERD (gastroesophageal reflux disease) : per snapshot HTN (hypertension) Human papilloma virus infection Mood disorder (HCC) Morbid obesity (HCC) BMI 36 Osteoarthritis of right knee : per snapshot Prediabetes Past Surgical History: Procedure Laterality Date BARIATRIC SURGERY CPG 1999 SECTION 1978 Lost child COLONOSCOPY 3-03 COLPOSCOPY W/CERVICAL BIOPSY AND ECC 05/21/98 mild dysplasia ESOPHAGOGASTRODUODENOSCOPY N/A 06/14/2019 Procedure: ESOPHAGOGASTRODUODENOSCOPY; Surgeon: Abdullahi David MD; Location: [facility]; Service: Gastroenterology GASTRIC RESTRICTVE PX, W/GASTRIC BYPASS/SHORT LIMB CJ-EN-Y GASTROENTEROSTMY, <150CM 05/26/00 [facility] LAPAROSCOPY 1978 ovarian cystectomy Family History: family history includes Cervical Cancer in her unknown relative; Coronary Artery Disease in her father; Heart Disease in her father; Hypertension in her mother; Other in her sister. Social History Social History Tobacco Use Smoking status: Current Some Day Smoker Packs/day: 0.33 Years: 25.00 Pack years: 8.25 Types: Cigarettes Smokeless tobacco: Never Used Tobacco comment: 1 pack last 1-1.5 weeks Substance Use Topics Alcohol use: Yes Comment: hx of ETOH abuse--sober for 3 years, had hx of prior relapses before Drug use: No Comment: not currently but hx of THC and remote hx of cocaine Allergies and Current Medications Allergies Allergen Reactions Nsaids Nausea Bleeding ulcer Current Facility-Administered Medications: albuterol (PROVENTIL) (2.5 MG/3ML) 0.083% nebulizer solution, 2.5 mg, Nebulization, Q4H RT, Viviane Goetz MD albuterol (PROVENTIL) (2.5 MG/3ML) 0.083% nebulizer solution, 2.5 mg, Nebulization, Q4H PRN, Viviane Goetz MD esomeprazole (NEXIUM) 40 MG injection, 40 mg, Intravenous Push, 2x Daily, Viviane Goetz MD, 40 mg at 12/29/21 0844 acetaminophen (TYLENOL) tablet, 500 mg, Oral, Q4H PRN, Viviane Goetz MD, 500 mg at 12/29/21 0429 Current Outpatient Medications: ondansetron (Zofran ODT) 4 MG disintegrating tablet, Take 1 Tablet by mouth every 6 hours as neededfor Nausea (Vomiting). Place 1 tablet under tongue as needed for nausea., Disp: 20 Tablet, Rfl: 0 esomeprazole (NEXIUM) 40 MG capsule, Take 1 Capsule by mouth 2 times daily (30 minutes before meals)., Disp: 120 Capsule, Rfl: 1 topiramate (TOPAMAX) 25 MG tablet, Take 1 Tab by mouth 2 times daily. (Patient not taking: Reportedon 12/28/2021), Disp: 60 Tab, Rfl: 3 ranitidine (ZANTAC) 150 MG tablet, Take 1 Tab by mouth 2 times daily for 14 days., Disp: 28 Tab, Rfl: 1 albuterol (PROAIR HFA) inhaler 90 mcg/inh, Inhale 2 Puffs every 4 hours as needed for Wheezing., Disp: 8.5 g, Rfl: 11 ammonium lactate (LAC-HYDRIN) 12 % lotion, Apply 80 mL topically 2 times daily. (Patient not taking: Reported on 12/28/2021), Disp: 500 g, Rfl: 3 beclomethasone (QVAR) 40 MCG/ACT inhaler, Inhale 1 Puff 2 times daily., Disp: 7.3 g, Rfl: 3 methocarbamol (ROBAXIN-750) 750 MG tablet, Take 1 Tab by mouth 4 times daily. (Patient not taking: Reported on 12/28/2021), Disp: 120 Tab, Rfl: 3 tramadol (ULTRAM) 50 MG tablet, Take 1 Tab by mouth every 6 hours as needed for Pain. (Patient not taking: Reported on 12/28/2021), Disp: 120 Tab, Rfl: 3 acetaminophen (TYLENOL) 500 MG tablet, Take 1 Tab by mouth every 6 hours as needed for Pain or Fever. Take with tramadol (Patient not taking: Reported on 12/28/2021), Disp: 120 Tab, Rfl: 3 lorazepam (ATIVAN) 2 MG tablet, Take 1 tablet one hour prior to procedure, Disp: 3 Tab, Rfl: 0 lisinopril (ZESTRIL) 10 MG tablet, Take 1 Tab by mouth daily. (Patient not taking: Reported on 12/28/2021), Disp: 30 Tab, Rfl: 3 Vit-Fe Fumarate-FA ( PLUS) tablet, Take 1 Tab by mouth daily. (Patient not taking:Reported on 12/28/2021), Disp: 30 Tab, Rfl: 11 gabapentin (NEURONTIN) 300 MG capsule, Take 1-4 Caps by mouth 3 times daily. (Patient not taking: Reported on 12/28/2021), Disp: 360 Cap, Rfl: 1 Beclomethasone Dipropionate (QVAR INHALATION), Inhale., Disp: , Rfl: TRIAMTERENE-HCTZ ORAL, Take by mouth., Disp: , Rfl: FLUOCINOLONE ACETONIDE EXTERNAL, Apply externally., Disp: , Rfl: Cyanocobalamin 1000 MCG/ML KIT, by Injection route., Disp: , Rfl: Review Of Systems Positives as noted in HPI. All ten other systems were reviewed and negative. Physical Exam Blood Pressure 128/82 Pulse 66 Temperature 98 F (36.7 C) (Oral) Respiration 20 Last Menstrual Period 08/27/2002 Oxygen Saturation 100% General: well-nourished, well-groomed, pleasant, NAD HEENT: normocephalic, atraumatic, MMM, no scleral icterus Pulm: no increased WOB on room air, CTAB Card: RRR, no murmurs Abdomen: soft, mildly in LUQ tender, nondistended, normal bowel sounds PEDRO PABLO: no hemorrhoids, brown stool Extremities: no MIHAELA, no gross deformity Skin: WWP, no jaundice Neuro: A&Ox3, no focal deficits, moving all extremities, normal ambulation, no asterixis, no abnormal movements Psych: appropriate mood and affect, linear thinking Labs CBC (last 3 years, up to 5 values) (Last 5 results in the past 3 years) WBC RBC Hgb Hct MCV RDW Plt 12/29/21 0608 4.3 3.92 10.0 29.9 76 18.8 195 12/28/21 1721 4.3 4.20 10.5 32.0 76 18.9 251 06/15/19 0652 4.7 3.91 9.5 30.3 78 20.7 235 06/14/19 2155 5.3 4.11 10.1 31.8 78 20.6 256 06/14/19 1400 4.3 4.52 11.1 34.9 77 20.1 287 Basic Metabolic Panel Na K Cl CO2 Gap Glu BUN Cr Ca 12/28/21 1721 132 4.7 Comment: Hemolysis present 103 17 17 112 17 1.13 9.3 06/13/19 2251 135 4.0 102 21 16 106 12 1.09 9.6 LFT's (last 3 years, up to 5 values) T Prot Albumin D Bili T Bili Alk Phos ALT AST 12/28/21 1721 5.7 3.3 0.30 0.8 78 13 21 Comment: Hemolysis present 06/13/19 2251 6.5 3.9 0.20 0.5 74 17 26 INR (no units) Date Value 06/13/2019 1.01 09/19/2011 0.9 10/26/2002 0.91 08/10/2002 0.97 02/10/2002 0.89 05/26/2001 1.06 Component 12/28/2021 Iron 212 (H) %SAT 54 TIBC 389 Transferrin, Serum 278 Ferritin 10.6 Imaging No new imaging. GI Procedures EGD 2018 1. Anastomotic ulcer which is the likely etiology of melena and anemia s/p clip placement and thermal therapy with hemostasis 2. 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 Normal remnant stomach Colonoscopy 2009 [facility] (report not available) Colonoscopy 2002 Colon noted to be long and redundant with marked loop formation. Mucosa in cecum, ascending, transverse, descending and sigmoid colon and rectum appeared normal without masses, ulcers, diverticuli, polyps or strictures. Retroflexed views in rectum did not show internal hemorrhoids, but did reveal a small skin tag. ASSESSMENT AND RECOMMENDATIONS Morena CHANDRA is a 61 year old female with history notable for RYGB c/b marginal ulcer, HTN, LAURENCE, chronic pain, EtOH use disorder, tobacco use disorder for whom gastroenterology was consulted foriron deficiency anemia with 2 episodes of coffee ground emesis. Suspect presentation is related to marginal ulcer (smoking, ASA use) vs PUD vs erosive esophagitis vs gastroduodenitis in the setting of prior RYGB. Low concern for variceal bleeding as no evidence of cirrhosis. However iron deficiencymay also be due to occult GI loss from colonic sources, last colonoscopy was > 10 y ago. # Reported coffee ground emesis # Iron deficiency anemia # RYGB with h/o marginal ulcer # EtOH/tobacco use disorder - Maintain 2 large bore PIVs and transfuse for Hgb < 7, plt < 10 (< 50 if actively bleeding) - Check daily CBC - Continue Nexium 40 mg IV BID - Watch for overt GI bleeding - Discussed need for strict alcohol and smoking cessation - Plan for EGD to evaluate for coffee ground emesis and colonoscopy to evaluate for chronic PORTIA as well as for screening tomorrow - Patient requesting alternate prep due to small gastric pouch from RYGB. Discussed miralax prep, she is agreeable for same. Start bowel prep this evening for colonoscopy tomorrow: --- clear liquid diet today (day prior to procedure). No red or purple liquids. --- Order 4 x 5 mg dulcolax tabs, 255g miralax and mix with 64oz clear liquids (ideally powerade orgatorade for the electrolytes). Take 4 dulcolax tabs around 2 pm today. Start drinking prep at 4 pm- drink one glass every 10-15 minutes. --- NPO at midnight, except for prep. --- if stool is not clear by 8 am page me. --- please make strict NPO at 10am, including no more prep (needs to be complete NPO for at least 4h prior to EGD). Goal stool appearance following prep: Discussed with GI attending, Dr. Davon Ha MD ([id number]). Primary team updated. Please don't hesitate to reach out with questions or concerns. We will continue to follow with you. Personal Pager [phone] GI Consult Pager (nights and weekends) [phone] Mary Ellen Miller MD Gastroenterology Fellow Division of Gastroenterology & Hepatology [facility] 12/29/21 ATTENDING NOTE The patient was personally seen and evaluated. The case was discussed in detail with the fellow; including, but not limited to the presenting complaint, past history, physical findings, labs and radiological findings. The patient was counseled on the possible differential diagnoses and testing needed to arrive at a diagnosis or a treatment plan. The above notes reflect the results of these discussions and my personal involvement in the case. Davon Ha MD Department of Gastroenterology & Hepatology [facility] Work Phone: [phone]) 753-503805-30-2022 Consult note* Davon Ha MD - 12/29/2021 10:00 AM EDTAssociated Order(s): IP GASTROENTEROLOGY CONSULT Images from the original note were not included. Department of Gastroenterology and Hepatology Consult H&P Note GI Attending Physician: Dr. Davon Ha MD ([id number]) Patient: Morena CHANDRA Location: Reason for Consult: coffee ground emesis, iron deficiency anemia HPI Morena CHANDRA is a 61 year old female with history notable for RYGB c/b marginal ulcer, HTN, LAURENCE, chronic pain, EtOH use disorder, tobacco use disorder for whom gastroenterology was consulted foriron deficiency anemia with 2 episodes of coffee ground emesis. Patient notes 3-4 days of severe upper abdominal pain radiating to back limiting PO intake f/b emesis yesterday which made her come to ED. Emesis was mostly clear with some dark material and specks of blood in it. Denies retching. Notes taking Stanback which is an ASA based powder 4 times over last few days for pain. Denies other NSAID use. Denies AC use. Notes smoking cigars daily. Also notes drinking 2-3 24 oz beers every night to help with sleep. No THC use. No blood in stool but has noted melena 2-3 times few weeks ago. Last EGD was in 2019 with marginal ulcer s/p BICAP and hemoclip. Last colonoscopy was in 2009. Denies FH of CRC. Medical and Surgical Histories Past Medical History: Diagnosis Date Acute posttraumatic stress disorder : per snapshot Alcohol abuse Anxiety disorder : per snapshot Chronic lower back pain : per snapshot Constipation : per snapshot Depressive disorder, not elsewhere classified Had a few episodes - will follow GERD (gastroesophageal reflux disease) : per snapshot HTN (hypertension) Human papilloma virus infection Mood disorder (HCC) Morbid obesity (HCC) BMI 36 Osteoarthritis of right knee : per snapshot Prediabetes Past Surgical History: Procedure Laterality Date BARIATRIC SURGERY CPG 2000 SECTION 1978 Lost child COLONOSCOPY 3-03 COLPOSCOPY W/CERVICAL BIOPSY AND ECC 05/21/98 mild dysplasia ESOPHAGOGASTRODUODENOSCOPY N/A 06/14/2019 Procedure: ESOPHAGOGASTRODUODENOSCOPY; Surgeon: Abdullahi David MD; Location: [facility]; Service: Gastroenterology GASTRIC RESTRICTVE PX, W/GASTRIC BYPASS/SHORT LIMB CJ-EN-Y GASTROENTEROSTMY, <150CM 05/26/00 [facility] LAPAROSCOPY 1979 ovarian cystectomy Family History: family history includes Cervical Cancer in her unknown relative; Coronary Artery Disease in her father; Heart Disease in her father; Hypertension in her mother; Other in her sister. Social History Social History Tobacco Use Smoking status: Current Some Day Smoker Packs/day: 0.33 Years: 25.00 Pack years: 8.25 Types: Cigarettes Smokeless tobacco: Never Used Tobacco comment: 1 pack last 1-1.5 weeks Substance Use Topics Alcohol use: Yes Comment: hx of ETOH abuse--sober for 3 years, had hx of prior relapses before Drug use: No Comment: not currently but hx of THC and remote hx of cocaine Allergies and Current Medications Allergies Allergen Reactions Nsaids Nausea Bleeding ulcer Current Facility-Administered Medications: albuterol (PROVENTIL) (2.5 MG/3ML) 0.083% nebulizer solution, 2.5 mg, Nebulization, Q4H RT, Viviane Goetz MD albuterol (PROVENTIL) (2.5 MG/3ML) 0.083% nebulizer solution, 2.5 mg, Nebulization, Q4H PRN, Viviane Goetz MD esomeprazole (NEXIUM) 40 MG injection, 40 mg, Intravenous Push, 2x Daily, Viviane Goetz MD, 40 mg at 12/29/21 0844 acetaminophen (TYLENOL) tablet, 500 mg, Oral, Q4H PRN, Viviane Goetz MD, 500 mg at 12/29/21 4659 Current Outpatient Medications: ondansetron (Zofran ODT) 4 MG disintegrating tablet, Take 1 Tablet by mouth every 6 hours as neededfor Nausea (Vomiting). Place 1 tablet under tongue as needed for nausea., Disp: 20 Tablet, Rfl: 0 esomeprazole (NEXIUM) 40 MG capsule, Take 1 Capsule by mouth 2 times daily (30 minutes before meals)., Disp: 120 Capsule, Rfl: 1 topiramate (TOPAMAX) 25 MG tablet, Take 1 Tab by mouth 2 times daily. (Patient not taking: Reportedon 12/28/2021), Disp: 60 Tab, Rfl: 3 ranitidine (ZANTAC) 150 MG tablet, Take 1 Tab by mouth 2 times daily for 14 days., Disp: 28 Tab, Rfl: 1 albuterol (PROAIR HFA) inhaler 90 mcg/inh, Inhale 2 Puffs every 4 hours as needed for Wheezing., Disp: 8.5 g, Rfl: 11 ammonium lactate (LAC-HYDRIN) 12 % lotion, Apply 80 mL topically 2 times daily. (Patient not taking: Reported on 12/28/2021), Disp: 500 g, Rfl: 3 beclomethasone (QVAR) 40 MCG/ACT inhaler, Inhale 1 Puff 2 times daily., Disp: 7.3 g, Rfl: 3 methocarbamol (ROBAXIN-750) 750 MG tablet, Take 1 Tab by mouth 4 times daily. (Patient not taking: Reported on 12/28/2021), Disp: 120 Tab, Rfl: 3 tramadol (ULTRAM) 50 MG tablet, Take 1 Tab by mouth every 6 hours as needed for Pain. (Patient not taking: Reported on 12/28/2021), Disp: 120 Tab, Rfl: 3 acetaminophen (TYLENOL) 500 MG tablet, Take 1 Tab by mouth every 6 hours as needed for Pain or Fever. Take with tramadol (Patient not taking: Reported on 12/28/2021), Disp: 120 Tab, Rfl: 3 lorazepam (ATIVAN) 2 MG tablet, Take 1 tablet one hour prior to procedure, Disp: 3 Tab, Rfl: 0 lisinopril (ZESTRIL) 10 MG tablet, Take 1 Tab by mouth daily. (Patient not taking: Reported on 12/28/2021), Disp: 30 Tab, Rfl: 3 Vit-Fe Fumarate-FA ( PLUS) tablet, Take 1 Tab by mouth daily. (Patient not taking:Reported on 12/28/2021), Disp: 30 Tab, Rfl: 11 gabapentin (NEURONTIN) 300 MG capsule, Take 1-4 Caps by mouth 3 times daily. (Patient not taking: Reported on 12/28/2021), Disp: 360 Cap, Rfl: 1 Beclomethasone Dipropionate (QVAR INHALATION), Inhale., Disp: , Rfl: TRIAMTERENE-HCTZ ORAL, Take by mouth., Disp: , Rfl: FLUOCINOLONE ACETONIDE EXTERNAL, Apply externally., Disp: , Rfl: Cyanocobalamin 1000 MCG/ML KIT, by Injection route., Disp: , Rfl: Review Of Systems Positives as noted in HPI. All ten other systems were reviewed and negative. Physical Exam Blood Pressure 128/82 Pulse 66 Temperature 98 F (36.7 C) (Oral) Respiration 20 Last Menstrual Period 08/27/2002 Oxygen Saturation 100% General: well-nourished, well-groomed, pleasant, NAD HEENT: normocephalic, atraumatic, MMM, no scleral icterus Pulm: no increased WOB on room air, CTAB Card: RRR, no murmurs Abdomen: soft, mildly in LUQ tender, nondistended, normal bowel sounds PEDRO PABLO: no hemorrhoids, brown stool Extremities: no MIHAELA, no gross deformity Skin: WWP, no jaundice Neuro: A&Ox3, no focal deficits, moving all extremities, normal ambulation, no asterixis, no abnormal movements Psych: appropriate mood and affect, linear thinking Labs CBC (last 3 years, up to 5 values) (Last 5 results in the past 3 years) WBC RBC Hgb Hct MCV RDW Plt 12/29/21 0608 4.3 3.92 10.0 29.9 76 18.8 195 12/28/21 1721 4.3 4.20 10.5 32.0 76 18.9 251 06/15/19 0652 4.7 3.91 9.5 30.3 78 20.7 235 06/14/19 2155 5.3 4.11 10.1 31.8 78 20.6 256 06/14/19 1400 4.3 4.52 11.1 34.9 77 20.1 287 Basic Metabolic Panel Na K Cl CO2 Gap Glu BUN Cr Ca 12/28/21 1721 132 4.7 Comment: Hemolysis present 103 17 17 112 17 1.13 9.3 06/13/19 2251 135 4.0 102 21 16 106 12 1.09 9.6 LFT's (last 3 years, up to 5 values) T Prot Albumin D Bili T Bili Alk Phos ALT AST 12/28/21 1721 5.7 3.3 0.30 0.8 78 13 21 Comment: Hemolysis present 06/13/19 2251 6.5 3.9 0.20 0.5 74 17 26 INR (no units) Date Value 06/13/2019 1.01 09/19/2011 0.9 10/26/2002 0.91 08/10/2002 0.97 02/10/2002 0.89 05/26/2001 1.06 Component 12/28/2021 Iron 212 (H) %SAT 54 TIBC 389 Transferrin, Serum 278 Ferritin 10.6 Imaging No new imaging. GI Procedures EGD 2018 1. Anastomotic ulcer which is the likely etiology of melena and anemia s/p clip placement and thermal therapy with hemostasis 2. 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 Normal remnant stomach Colonoscopy 2009 [facility] (report not available) Colonoscopy 2002 Colon noted to be long and redundant with marked loop formation. Mucosa in cecum, ascending, transverse, descending and sigmoid colon and rectum appeared normal without masses, ulcers, diverticuli, polyps or strictures. Retroflexed views in rectum did not show internal hemorrhoids, but did reveal a small skin tag. ASSESSMENT AND RECOMMENDATIONS Morena CHANDRA is a 61 year old female with history notable for RYGB c/b marginal ulcer, HTN, LAURENCE, chronic pain, EtOH use disorder, tobacco use disorder for whom gastroenterology was consulted foriron deficiency anemia with 2 episodes of coffee ground emesis. Suspect presentation is related to marginal ulcer (smoking, ASA use) vs PUD vs erosive esophagitis vs gastroduodenitis in the setting of prior RYGB. Low concern for variceal bleeding as no evidence of cirrhosis. However iron deficiencymay also be due to occult GI loss from colonic sources, last colonoscopy was > 10 y ago. # Reported coffee ground emesis # Iron deficiency anemia # RYGB with h/o marginal ulcer # EtOH/tobacco use disorder - Maintain 2 large bore PIVs and transfuse for Hgb < 7, plt < 10 (< 50 if actively bleeding) - Check daily CBC - Continue Nexium 40 mg IV BID - Watch for overt GI bleeding - Discussed need for strict alcohol and smoking cessation - Plan for EGD to evaluate for coffee ground emesis and colonoscopy to evaluate for chronic PORTIA as well as for screening tomorrow - Patient requesting alternate prep due to small gastric pouch from RYGB. Discussed miralax prep, she is agreeable for same. Start bowel prep this evening for colonoscopy tomorrow: --- clear liquid diet today (day prior to procedure). No red or purple liquids. --- Order 4 x 5 mg dulcolax tabs, 255g miralax and mix with 64oz clear liquids (ideally powerade orgatorade for the electrolytes). Take 4 dulcolax tabs around 2 pm today. Start drinking prep at 4 pm- drink one glass every 10-15 minutes. --- NPO at midnight, except for prep. --- if stool is not clear by 8 am page me. --- please make strict NPO at 10am, including no more prep (needs to be complete NPO for at least 4h prior to EGD). Goal stool appearance following prep: Discussed with GI attending, Dr. Davon Ha MD ([id number]). Primary team updated. Please don't hesitate to reach out with questions or concerns. We will continue to follow with you. Personal Pager [phone] GI Consult Pager (nights and weekends) [phone] Mary Ellen Miller MD Gastroenterology Fellow Division of Gastroenterology & Hepatology [facility] 12/29/21 ATTENDING NOTE The patient was personally seen and evaluated. The case was discussed in detail with the fellow; including, but not limited to the presenting complaint, past history, physical findings, labs and radiological findings. The patient was counseled on the possible differential diagnoses and testing needed to arrive at a diagnosis or a treatment plan. The above notes reflect the results of these discussions and my personal involvement in the case. Davon Ha MD Department of Gastroenterology & Hepatology [facility] documented in this [id number] Emergency department Note* Mayra Leong - 12/29/2021 8:15 AM EDT Pts candido fully changed. [id number] Emergency department Note* Mayra Leong - 12/29/2021 8:15 AM EDT Pts liliana and andrew fully changed. * Wayne Benton MD - 12/28/2021 7:46 PM EDT ED Attending Note 61 year old female hx PUD with GIB in 2019 at libertarian today had 1 drink and says family told her she passed out. felt LH first. no cp. no sob. has been having sharp LUQ pains on and off for a few months getting worse. no frequent nsaid use alert nontoxic lungs clear with symmetric breath sounds bilaterally, no ronchi, rales or wheezes CV: heart regular rate and rhythm abdomen soft, nontender, no rebound, nl bowel sounds pt with episode of coffee ground emesis in ED hct stable from prior given syncope and coffee ground emesis/GIB needs to stay in hospital Wayne Benton MD * Harshad Emery DO - 12/28/2021 7:10 PM EDT Images from the original note were not included. 61yo F pmh PUD, cj en y gastric bypass had coffee ground emesis here, also had syncopal event, Hg10 no previous, HDS, labs otherwise benign, abd benign, got nexium, zofran, fluids [ ] admit tele, report not called Under my care: Patient required no acute intervention. Report called to medicine telemetry service and patient is accepted. Harshad Emery DO PGY2 [id number] * Wayne Benton MD - 12/28/2021 5:05 PM EDT EMERGENCY DEPARTMENT - VISIT NOTE HISTORY OF PRESENT ILLNESS Chief Complaint Patient presents with Fainting Per ems, family states patient passed out, +etoh and marijuana HIPAA: Verbal permission granted from patient to discuss case, including protected health information, in front of family / friends in room at the time of the evaluation. Assistant Corporate Controller: not needed - patient preferred language is Mauritanian. The history is provided by the Patient. Morena Chandra is a 61 year old female Cj-en-y Gastric bypass (1999), Reported history of PUD (likely marginal), HTN, Iron Deficiency Anemia, Depression, PTSD, GERD, EtOH abuse, chronic low backpain, and osteoarthritis presenting to the ED for reported syncope. Patient states that she was at a libertarian with her family. She was sitting down and holding a cup of ice when her family states that she lost consciousness. She states that her family reports that her eyes rolled back in her head. She does not know if they saw her shaking or any other unusual movement. No loss of bowel or bladder function, no reports of tongue biting, no superficial injuries. Per family, the patient was at the libertarian and had two drinks. In the afternoon, she dropped her cup and fell back. Family saw her fall back in her chair. Said that her eyes were rolling in her head but no significant shaking or seizure like activity, no loss of bladder function. Please contact daughter in law with information at [phone] REVIEW OF SYSTEMS Review of Systems Constitutional: Positive for fatigue. HENT: Negative. Respiratory: Negative. Cardiovascular: Negative. Gastrointestinal: Positive for abdominal pain (intermittent, currently resolved, sharp left upper quadrant pain). Genitourinary: Negative. Musculoskeletal: Negative. Neurological: Positive for syncope. Psychiatric/Behavioral: Negative. PAST HISTORY Pertinent Past History: Past Medical History: Diagnosis Date Acute posttraumatic stress disorder : per snapshot Alcohol abuse Anxiety disorder : per snapshot Chronic lower back pain : per snapshot Constipation : per snapshot Depressive disorder, not elsewhere classified Had a few episodes - will follow GERD (gastroesophageal reflux disease) : per snapshot HTN (hypertension) Human papilloma virus infection Mood disorder (HCC) Morbid obesity (HCC) BMI 36 Osteoarthritis of right knee : per snapshot Prediabetes Pertinent Family History: Review of patient's family history indicates: Problem: Heart Disease Relation: Father Age of Onset: (Not Specified) Problem: Coronary Artery Disease Relation: Father Age of Onset: (Not Specified) Problem: Hypertension Relation: Mother Age of Onset: (Not Specified) Comment: lupus Problem: Other (Other) Relation: Sister Age of Onset: (Not Specified) Problem: Cervical Cancer Relation: Unknown relative Age of Onset: (Not Specified) Problem: Breast Cancer Relation: Negative Family History of Age of Onset: (Not Specified) Problem: Ovarian Cancer Relation: Negative Family History of Age of Onset: (Not Specified) Problem: Uterine Cancer Relation: Negative Family History of Age of Onset: (Not Specified) Pertinent Social History: Social History Occupational History 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 Employer: [employer] Tobacco Use Smoking status: Current Some Day Smoker Packs/day: 0.33 Years: 25.00 Pack years: 8.25 Types: Cigarettes Smokeless tobacco: Never Used Tobacco comment: 1 pack last 1-1.5 weeks Substance and Sexual Activity Alcohol use: Yes Comment: hx of ETOH abuse--sober for 3 years, had hx of prior relapses before Drug use: No Comment: not currently but hx of THC and remote hx of cocaine Sexual activity: Yes Partners: Male PHYSICAL EXAM [facility] 08/27/2002 Exam: Constitutional Alert, No acute distress and poor historian, but coherent HENT Oropharynx clear, no plaques or exudates, Posterior Oropharynx symmetric and dry mucous membranes Eyes Extraocular muscles intact, Pupils equal and round and No conjunctival pallor Neck No cervical spine bony tenderness, crepitus, or stepoff, No nuchal rigidity and Normal range of motion Lungs Clear to auscultation, Breath sounds equal and symmetric and No rhonchi, rales or wheeze Heart Regular rate and rhythm, No murmur, rub or gallop and Normal S1, S2 Abdomen Soft, Nontender, No distension and large abdomina scar, patient reports from gastric bypasssurgery Back No midline bony tenderness to thoracic/lumbar/sacral spines and No abrasions to back Extremities Normal range of motion all 4 extremities, Intact distal pulses to all 4 extremities andThoracic, Lumbar and Sacral spines no bony tenderness Neuro Alert, Oriented times 3 and Cranial nerves 3-12 intact to exam Skin No rash or lesion, Warm and Dry Psych Normal affect, Good eye contact and Cooperative MEDICAL DECISION MAKING and ED COURSE Nursing triage and assessment notes reviewed and incorporated Chart Reviewed: Summary of pertinent elements includes history of admission in 2019 for GI bleed, EGD significant for gastric ulcer which was cauterized. Evaluated by EM attending Salvador Benton Interpretation of Results: Course: ED Course as of 12/28/211850 Sun December 28, 20211807 Hemoglobin(!): 10.5 [SP] 1826 MCV(!): 76 [SP] 1826 Sodium(!): 132 [SP] 1826 Creatinine(!): 1.13 [SP] ED Course User Index [SP] Dwaine Badillo DO Medical Decision Making: Patient presenting with syncope. Hemodynamically stable on admission. Patient had one episode of coffee ground emesis while in the ED. Plan: [facility] to [facility] after labs result. IMPRESSION AND DISPOSITION Clinical Impression Diagnosis Comment Syncope and collapse [R55] Disposition: Admitted to Floor: Night Float Team 1. Case discussed with resident and care turned over to team at appx .202912/28/2021 Patient Condition: stable The patient has received a medical screening examination and within reasonable clinical confidence the patient was stabilized within the capabilities of the emergency department and requires admission / observation. Counseling: Spoke with the patient and discussed today s findings, in addition to providing specific details for the plan of care and expected course. They were given the opportunity to ask questions. Dwaine Badillo, DO ED Attending Note see separate progress note [place], admit medicine I saw and evaluated the patient. I personally obtained the bates and critical portions of the historyand physical exam. I reviewed the resident's documentation and discussed the patient with the resident. I agree with the resident's medical decision making as documented in the resident's note exceptas may be otherwise noted above or elsewhere in the chart to the point care was transferred to the inpatient service at approximately 202912/28/21 Dr. Wayne Benton documented in this [id number] Note* Care Plan Note - Luis Daniel Ahumada MD - 12/28/2021 9:42 PM EDT Images from the original note were not included. INTERNAL MEDICINE TEAM 9 SENIOR RESIDENT ADMISSION NOTE Name: Morena Chandra CC: syncope and coffee ground emesis S: Morena Chandra is a 61 year old female with a PMH of RYGB (1999), PUD(marginal ulcer?), HTN, GERD, PORTIA, depression, chronic back pain, OA, LAURENCE (CPAP ?) Etoh abuse who presents for coffee ground emesis (2 episodes, one in the ED), asthma (PFTs in 2011, with minimal obstructive impairement and mild response to bronchodilators), one episode of syncope. Patient reports that she was drinking a seltzer. Patient doesn't remember the syncopal episode, she was told it lasted for 5 minutes. Patient reports that felt dizzy, nauseous, and weakness before the episode, but denies any incontinence or anyseizure like activity as per the daughter. Patient also had post ictal confusion as well. Patient reports also having abdominal pain in the epigastric region radiating to the back and took some ASA containing product for the pain. Patient denies any melena, hematochezia. Patient had one episode of coffee ground emesis . Patient quit smoking 2 years ago, drinks alcohol occasionally, no drug abuse O: BP 114/56 Pulse 66 Temp 98.2 F (36.8 C) (Oral) Resp 15 LMP 08/27/2002 SpO2 99% Physical Exam Constitutional: Appearance: Normal appearance. Cardiovascular: Pulses: Normal pulses. Heart sounds: Normal heart sounds. Pulmonary: Effort: Pulmonary effort is normal. Abdominal: General: Abdomen is flat. Palpations: Abdomen is soft. Comments: epigastric tenderness Musculoskeletal: Right lower leg: Edema present. Left lower leg: Edema present. Skin: General: Skin is warm. Neurological: General: No focal deficit present. Mental Status: She is alert and oriented to person, place, and time. Labs: Basic Metabolic Panel Na K Cl CO2 Gap Glu BUN Cr Ca Mg PO4 12/28/21 1721 132 4.7 Comment: Hemolysis present 103 17 17 112 17 1.13 9.3 CBC/PT/INR WBC RBC Hgb Hct MCV RDW Plt PT aPTT INR 12/28/21 172 4.3 4.20 10.5 32.0 76 18.9 251 WBC/Diff Neutro% Lymph% Eos% Seg% Bands% 12/28/211720 55.8 36.6 0.6 Hepatic/Biliary/Pancreas T Prot Albumin D Bili T Bili Alk Phos ALT AST Amylase Lipase 12/28/21 172 5.7 3.3 0.30 0.8 78 13 21 Comment: Hemolysis present 12/28/211720 23 Arterial Blood Gases None PT/INR None Creatinine clearance from Cockroft-Gault: 49 ml/min using IBW 59.3 kg (actual weight 61.6 kg ignored) GFR from MDRD: 59.3 ml/min/1.73 sq m age 61 yr, cr=1.13 on 12/28/2021, race Black / Cardiac Troponin I CK total CK-MB BNP 12/28/21 1744 <0.030 Comment: Range <=0.04 ng/mL: Negative Interpretation: Repeat testing in four to six hours if clinically indicated. Range 0.04-0.11 ng/mL: Suspected for acute myocardial injury. Interpretation: Serial measurements may be necessary to confirm or exclude the diagnosis of acute coronary syndrome. Repeat testing in four to six hours if clinically indicated. Range >=0.12 ng/mL: Results consistent with myocardial injury. Interpretation: Clinical and laboratory correlation recommended. Fingerstick Glucose (last 72 hours) None No results found for: HBA1C TSH (high sens.) (uIU/mL) Date Value 07/11/2002 .755 02/16/2002 1.25 Blood Culture None Urine Culture (last 1 year) None Pyogen Culture None Respiratory Culture, Misc None PERTINENT IMAGING/STUDIES: EKG: NSR CXR: none CTH: none Echo OSH for CVA in 2020 Left Ventricle Normal LV size. Left ventricular systolic function is normal. The estimated ejection fraction is 60 %. Stage 1 diastolic dysfunction. No regional wall motion abnormalities noted. Right Ventricle Normal RV size. Normal systolic function. Atria Normal left atrium. Normal right atrium. Bubble contrast study negative for right to left interatrial shunt. Mitral Valve Normal mitral valve. Tricuspid Valve Normal tricuspid valve. Mild (1+) tricuspid valve insufficiency. Pulmonary artery systolic pressure is 25 mmHg. Aortic Valve Trisinus/trileaflet aortic valve. Mild (1+) aortic valve insufficiency. Pulmonic Valve Normal pulmonic valve. Great Vessels Normal aortic root. The pulmonary artery is normal size. Normal inferior vena cava. Pericardium/Pleural No pericardial effusion. EGD 06/14/19 & GI Recs: IMPRESSION: 1. Anastomotic ulcer which is the likely etiology of melena and anemia s/p clip placement and thermal therapy with hemostasis 2. 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 Normal remnant stomach RECOMMENDATIONS: 1. Avoid smoking and NSAIDs 2. Continue high dose PPI twice daily 30 min before breakfast and dinner. 3. Can get Upper GI series to further evaluate the fistula/anatomy 4. Further recommendations as per the GI consult team A/P: Morena Chandra is a 61 year old female with a PMH of RYGB (1999), marginal ulcer, HTN, GERD, PORTIA, depression, chronic back pain, OA, Etoh abuse who presents for coffee ground emesis (2 episodes, one in the ED), one episode of syncope. #Coffee ground emesis -hx of PUD, marginal ulcer, recent use of NSAID (stanback for back pain) -two episodes of coffee ground emesis - no melena or hematochezia Plan: -Keep patient NPO -nexium 40 IV PPI BID -avoid NSAIDs -trend CBCD daily , if no further episodes of coffee ground emesis -GI consult for further management of marginal ulcer, counseled about cigar/smoking cessation, etohabuse #Syncope -one episode today,no recollection of episode, lasted 5 min according to family -did have some prodromal symptoms -ddx: vasovagal, cardiac syncope, orthostatic Plan: -repeat echocardiogram -continuous telemetry -orthostatic vital signs -fall precautions #alcohol use -pt reports drinking white liquor, sometimes several times a week -denies any alcohol withdrawal sx in the past Plan: -CIWA score #Chronic medical management -asthma: respiratory assesor -LAURENCE: not using cpap -HTN: hold lisinopril, fu orthostatics Prophylaxis: SCD, given episode of coffee ground emesis Analgesia: tyelnol Diet/Fluids: NPO Code: Full Code Dispo: Inpatient Rest of plan per advisory internship note. To be discussed with attending physician in the morning. Plan is preliminary until finalized by the attending physician. Luis Daniel Ahumada Internal Medicine, PGY-2 Pager: [phone] [email or web address] Work Phone: [phone] 963-132705-29-2022 History and physical note* Viviane Goetz MD - 12/28/2021 8:54 PM EDT Images from the original note were not included. INTERNAL MEDICINE TEAM 9 HISTORY AND PHYSICAL Patient: Morena Chandra : 1960 Sex: female Room: [place] [id number] Admit Date: 12/28/2021 Today's Date: 12/28/2021 Length of stay: 1 day(s) CHIEF COMPLAINT: Syncope Coffee-ground emesis HPI: 61 year old female with a history of Cj-en-y Gastric bypass (1999), reported hx PUD (marginal (?)), HTN, PORTIA, depression, GERD, EtOH abuse, PTSD, chronic low back pain, and OA who presented to ED 12/28/21 with syncope, and reportedly had at least one episode of coffee ground emesis while in the ED. - Was reportedly visiting family and felt weak, felt that she couldn't stand long, asked for ice water, and doesn't remember anything after that - [place] her face was cold/had cold towels on it, woke up and started to feel nauseous - Was told by witnesses that she lost consciousness for 5 minutes, eyes rolled to back of her head - Does state that she was confused after the episode, although seems to endorse being told she was confused prior to the episode as well - Has been having back pain and epigastric pain for the past few days - Tried hemp oil and didn't work - Also took some type of medication (name unclear) that includes ASA in a powder form - Presence of prodrome unclear: Patient endorses dizziness/lightheadedness, and weakness. However, unsure of presence of diaphoresis/vision changes/palpitations/nausea - Was sitting in a recliner/spring/summer chair during the event - Was told she was holding a cup of ice water and fell out of her hand - Although does endorse being admitted in the past for LGIB, denies this type of UGIB or syncope ever happening in the past - Additionally endorses L arm and neck pain - Patient unsure if ever tested for H. Pylori - Just occasional etoh use, no hx liver dz or cirrhosis - No hx of AAA or aortic graft that patient knows of - Denies pain or trouble swallowing, endorses GERD - No vomiting, no gagging before hand, no coughing (nothing to suggest MW tear) - Denies weight loss, difficult to tell if early satiety since had bariatric surgery - Does endorse hx of ulcers and anemia, unsure of severity of anemia - Denies blood in stool or tarry, black stools Med Rec: Done Meds taken today: None Code: Full code confirmed Patient seen and examined at bedside. Endorsing back and belly pain. REVIEW OF SYSTEMS: Review of Systems Constitutional: Negative for chills and fever. HENT: Negative for congestion and sore throat. Eyes: Negative for blurred vision and pain. Respiratory: Negative for cough and shortness of breath. Cardiovascular: Negative for chest pain and palpitations. Gastrointestinal: Positive for abdominal pain, diarrhea (Few days ago), nausea and vomiting. Negative for blood in stool, constipation, heartburn and melena. Genitourinary: Negative for dysuria and hematuria. Musculoskeletal: Positive for back pain. Negative for falls. Skin: Negative for itching and rash. Neurological: Positive for dizziness. Negative for headaches. IN THE ED: ED Course as of 12/28/212106 Sun December 28, 2021 180 Hemoglobin(!): 10.5 [SP] 1826 MCV(!): 76 [SP] 1826 Sodium(!): 132 [SP] 1826 Creatinine(!): 1.13 [SP] ED Course User Index [SP] Prestowitz, Dwaine, DO ED Triage Vitals BP Heart Rate Respiratory Rate Temperature Temperature Source 12/28/21 1709 12/28/21 17112/28/21 17112/28/21 17112/28/21 171 114/56 93 19 98.2 F (36.8 C) Oral SpO2 Weight Height Head Circumference Peak Flow 12/28/211709 -- -- -- -- 97 % Pain Score Pain Loc Pain Edu? Excl. in GC? 12/28/211711 -- -- -- 0 PERTINENT HISTORY: Past Medical History: Past Medical History: Diagnosis Date Acute posttraumatic stress disorder : per snapshot Alcohol abuse Anxiety disorder : per snapshot Chronic lower back pain : per snapshot Constipation : per snapshot Depressive disorder, not elsewhere classified Had a few episodes - will follow GERD (gastroesophageal reflux disease) : per snapshot HTN (hypertension) Human papilloma virus infection Mood disorder (HCC) Morbid obesity (HCC) BMI 36 Osteoarthritis of right knee : per snapshot Prediabetes Past Surgical History: Procedure Laterality Date BARIATRIC SURGERY CPG 2000 SECTION 1979 Lost child COLONOSCOPY 3-03 COLPOSCOPY W/CERVICAL BIOPSY AND ECC 05/21/98 mild dysplasia ESOPHAGOGASTRODUODENOSCOPY N/A 06/14/2019 Procedure: ESOPHAGOGASTRODUODENOSCOPY; Surgeon: Abdullahi David MD; Location: [facility]; Service: Gastroenterology GASTRIC RESTRICTVE PX, W/GASTRIC BYPASS/SHORT LIMB CJ-EN-Y GASTROENTEROSTMY, <150CM 05/26/00 Shira LAPAROSCOPY 1978 ovarian cystectomy Social History: Quit smoking 2 yrs ago, smoked on and off since age 15yo, one pack every 3-4 days, no drug use Social History Tobacco Use Smoking status: Current Some Day Smoker Packs/day: 0.33 Years: 25.00 Pack years: 8.25 Types: Cigarettes Smokeless tobacco: Never Used Tobacco comment: 1 pack last 1-1.5 weeks Substance Use Topics Alcohol use: Yes Comment: hx of ETOH abuse--sober for 3 years, had hx of prior relapses before reports no history of drug use. Family History: Cousin had [place] Review of patient's family history indicates: Problem: Heart Disease Relation: Father Age of Onset: (Not Specified) Problem: Coronary Artery Disease Relation: Father Age of Onset: (Not Specified) Problem: Hypertension Relation: Mother Age of Onset: (Not Specified) Comment: lupus Problem: Other (Other) Relation: Sister Age of Onset: (Not Specified) Problem: Cervical Cancer Relation: Unknown relative Age of Onset: (Not Specified) Problem: Breast Cancer Relation: Negative Family History of Age of Onset: (Not Specified) Problem: Ovarian Cancer Relation: Negative Family History of Age of Onset: (Not Specified) Problem: Uterine Cancer Relation: Negative Family History of Age of Onset: (Not Specified) OBJECTIVE DATA: MEDICATIONS: No current facility-administered medications on file prior to encounter. Current Outpatient Medications on File Prior to Encounter Medication Sig Dispense Refill esomeprazole (NEXIUM) 40 MG capsule Take 1 Capsule by mouth 2 times daily (30 minutes before meals). 120 Capsule 1 topiramate (TOPAMAX) 25 MG tablet Take 1 Tab by mouth 2 times daily. 60 Tab 3 ranitidine (ZANTAC) 150 MG tablet Take 1 Tab by mouth 2 times daily for 14 days. 28 Tab 1 albuterol (PROAIR HFA) inhaler 90 mcg/inh Inhale 2 Puffs every 4 hours as needed for Wheezing. 8.5 g 11 ammonium lactate (LAC-HYDRIN) 12 % lotion Apply 80 mL topically 2 times daily. 500 g 3 beclomethasone (QVAR) 40 MCG/ACT inhaler Inhale 1 Puff 2 times daily. 7.3 g 3 methocarbamol (ROBAXIN-750) 750 MG tablet Take 1 Tab by mouth 4 times daily. 120 Tab 3 tramadol (ULTRAM) 50 MG tablet Take 1 Tab by mouth every 6 hours as needed for Pain. 120 Tab 3 acetaminophen (TYLENOL) 500 MG tablet Take 1 Tab by mouth every 6 hours as needed for Pain or Fever. Take with tramadol 120 Tab 3 lorazepam (ATIVAN) 2 MG tablet Take 1 tablet one hour prior to procedure 3 Tab 0 lisinopril (ZESTRIL) 10 MG tablet Take 1 Tab by mouth daily. 30 Tab 3 Vit-Fe Fumarate-FA ( PLUS) tablet Take 1 Tab by mouth daily. 30 Tab 11 gabapentin (NEURONTIN) 300 MG capsule Take 1-4 Caps by mouth 3 times daily. 360 Cap 1 Beclomethasone Dipropionate (QVAR INHALATION) Inhale. TRIAMTERENE-HCTZ ORAL Take by mouth. FLUOCINOLONE ACETONIDE EXTERNAL Apply externally. Cyanocobalamin 1000 MCG/ML KIT by Injection route. PATIENT DATA: BP 114/56 Pulse 86 Temp 98.2 F (36.8 C) (Oral) Resp (!) 24 LMP 08/27/2002 SpO2 100% No intake or output data in the 24 hours ending 12/28/212054 PHYSICAL EXAM: Physical Exam Vitals reviewed. Constitutional: General: She is not in acute distress. Appearance: Normal appearance. She is not ill-appearing or toxic-appearing. Cardiovascular: Rate and Rhythm: Normal rate and regular rhythm. Heart sounds: No murmur heard. No friction rub. Pulmonary: Effort: Pulmonary effort is normal. No respiratory distress. Comments: CTAB posteriorly Abdominal: Palpations: Abdomen is soft. Tenderness: There is abdominal tenderness (LUQ, mild). Musculoskeletal: Right lower leg: Edema present. Left lower leg: Edema present. Neurological: Mental Status: She is alert and oriented to person, place, and time. Comments: Strength of elbow flexion and extension intact and symmetric bilaterally. Strength of hipflexion and extension intact and symmetric bilaterally. AAOx3 although does seem a bit confused andslow to respond. Psychiatric: Mood and Affect: Mood normal. Lines/Drains Peripheral IV Access: 12/28/21 (Active) Number of days: 0 LAB DATA: Basic Metabolic Panel Na K Cl CO2 Gap Glu BUN Cr Ca Mg PO4 12/28/21 1721 132 4.7 Comment: Hemolysis present 103 17 17 112 17 1.13 9.3 CBC/PT/INR WBC RBC Hgb Hct MCV RDW Plt PT aPTT INR 12/28/211720 4.3 4.20 10.5 32.0 76 18.9 251 WBC/Diff Neutro% Lymph% Eos% Seg% Bands% 12/28/211720 55.8 36.6 0.6 Hepatic/Biliary/Pancreas T Prot Albumin D Bili T Bili Alk Phos ALT AST Amylase Lipase 12/28/21 172 5.7 3.3 0.30 0.8 78 13 21 Comment: Hemolysis present 12/28/211720 23 Arterial Blood Gases None PT/INR None Creatinine clearance from [facility]ro[facility]-Gault: 49 ml/min using IBW 59.3 kg (actual weight 61.6 kg ignored) GFR from MDRD: 59.3 ml/min/1.73 sq m age 61 yr, cr=1.13 on 12/28/2021, race Black / Cardiac Troponin I CK total CK-MB BNP 12/28/21 1744 <0.030 Comment: Range <=0.04 ng/mL: Negative Interpretation: Repeat testing in four to six hours if clinically indicated. Range 0.04-0.11 ng/mL: Suspected for acute myocardial injury. Interpretation: Serial measurements may be necessary to confirm or exclude the diagnosis of acute coronary syndrome. Repeat testing in four to six hours if clinically indicated. Range >=0.12 ng/mL: Results consistent with myocardial injury. Interpretation: Clinical and laboratory correlation recommended. Fingerstick Glucose (last 72 hours) None No results found for: HBA1C TSH (high sens.) (uIU/mL) Date Value 07/11/2002 .755 02/16/2002 1.25 Blood Culture None Urine Culture (last 1 year) None Pyogen Culture None Respiratory Culture, Misc None CARDIAC FINDINGS: ECG: RR, NSR IMAGING/OTHER: EGD 06/14/2019 IMPRESSION: 1. Anastomotic ulcer which is the likely etiology of melena and anemia s/p clip placement and thermal therapy with hemostasis 2. 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 Normal remnant stomach RECOMMENDATIONS: 1. Avoid smoking and NSAIDs 2. Continue high dose PPI twice daily 30 min before breakfast and dinner. 3. Can get Upper GI series to further evaluate the fistula/anatomy 4. Further recommendations as per the GI consult team ASSESSMENT AND PLAN: SUMMARY: 61 year old female with a history of Cj-en-y Gastric bypass (1999), reported hx PUD (marginal (?)), HTN, PORTIA, depression, GERD, EtOH abuse, PTSD, chronic low back pain, and OA who presented to ED 12/28/21 with syncope, and reportedly had at least one episode of coffee ground emesis while in the ED. PROBLEM LIST: #Syncope - Unclear prodrome (dizziness and lightheadedness, questionable nausea, unclear if diaphoretic or with vision changes) - Less likely seizure-like activity (questionable confusion/post-ictal state, no incontinence, age group, etc. Although will need to confirm with family) - Potentially related to low Hbg level as described below Plan: - Orthostatic VS - ECHO - Continuous telemetry - Fall precautions #UGIB #Microcytic anemia - Episode of coffee ground emesis in context of Cj-en-y gastric bypass and chronic anemia, as well as hx of reported PUD - Hx extensive GI/surgical procedures, likely baseline anemia with unchanged severity - EGD 06/14/2019: anastomotic ulcer as likely etiology of melena and anemia s/p clip placement and thermal therapy with hemostasis; with anatomy consistent with prior gastrojejunal anastomosis (Cj)and 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, and evidence of normal remnant stomach - Endorses epigastric pain and back pain for the preceding several days - Endorses taking an unclear medication containing powdered ASA Plan: - Keep NPO - IV Nexium BID 40mg - CBC in AM (daily) - GI consult in AM - Please avoid NSAIDs Chronic Medical Conditions: #Asthma - Respiratory assessors #PORTIA - Repeat CBC daily, can consider getting iron studies #GERD - IV PPI as above #HTN - Holding home meds at this time, monitor BP #LAURENCE - Likely needs outpatient sleep clinic follow up Prophylaxis: SCDs Analgesia: Tylenol PRN Diet/Fluids: No diet orders on file Code: Prior Dispo: Per PT/OT recommendations Outpatient followup: PCP, GI Plan is preliminary until finalized by Attending. Viviane Goetz MD Internal Medicine, PGY-1 Personal Pager: [phone] Team [phone] Pager [phone] [id number] Physician Emergency department Note* Wayne Benton MD - 12/28/2021 7:46 PM EDT ED Attending Note 61 year old female hx PUD with GIB in 2019 at [facility] today had 1 drink and says family told her she passed out. felt LH first. no cp. no sob. has been having sharp LUQ pains on and off for a few months getting worse. no frequent nsaid use alert nontoxic lungs clear with symmetric breath sounds bilaterally, no ronchi, rales or wheezes CV: heart regular rate and rhythm abdomen soft, nontender, no rebound, nl bowel sounds pt with episode of coffee ground emesis in ED hct stable from prior given syncope and coffee ground emesis/GIB needs to stay in hospital Wayne Benton MD [email or web address] Work Phone: [phone] Physician Emergency department Note* Harshad Emery DO - 12/28/2021 7:10 PM EDT Images from the original note were not included. 61yo F pmh PUD, cj en y gastric bypass had coffee ground emesis here, also had syncopal event, Hg10 no previous, HDS, labs otherwise benign, abd benign, got nexium, zofran, fluids [ ] admit tele, report not called Under my care: Patient required no acute intervention. Report called to medicine telemetry service and patient is accepted. Harshad Emery DO PGY2 [id number] [email or web address] Work Phone: [phone]) 914-192105-29-2022 Physician Emergency department Note* Wayne Benton MD - 12/28/2021 5:05 PM EDT EMERGENCY DEPARTMENT - VISIT NOTE HISTORY OF PRESENT ILLNESS Chief Complaint Patient presents with Fainting Per ems, family states patient passed out, +etoh and marijuana HIPAA: Verbal permission granted from patient to discuss case, including protected health information, in front of family / friends in room at the time of the evaluation. Assistant Corporate Controller: not needed - patient preferred language is Mauritanian. The history is provided by the Patient. Morena Chandra is a 61 year old female Cj-en-y Gastric bypass (1999), Reported history of PUD (likely marginal), HTN, Iron Deficiency Anemia, Depression, PTSD, GERD, EtOH abuse, chronic low backpain, and osteoarthritis presenting to the ED for reported syncope. Patient states that she was at a libertarian with her family. She was sitting down and holding a cup of ice when her family states that she lost consciousness. She states that her family reports that her eyes rolled back in her head. She does not know if they saw her shaking or any other unusual movement. No loss of bowel or bladder function, no reports of tongue biting, no superficial injuries. Per family, the patient was at the libertarian and had two drinks. In the afternoon, she dropped her cup and fell back. Family saw her fall back in her chair. Said that her eyes were rolling in her head but no significant shaking or seizure like activity, no loss of bladder function. Please contact daughter in law with information at [phone] REVIEW OF SYSTEMS Review of Systems Constitutional: Positive for fatigue. HENT: Negative. Respiratory: Negative. Cardiovascular: Negative. Gastrointestinal: Positive for abdominal pain (intermittent, currently resolved, sharp left upper quadrant pain). Genitourinary: Negative. Musculoskeletal: Negative. Neurological: Positive for syncope. Psychiatric/Behavioral: Negative. PAST HISTORY Pertinent Past History: Past Medical History: Diagnosis Date Acute posttraumatic stress disorder : per snapshot Alcohol abuse Anxiety disorder : per snapshot Chronic lower back pain : per snapshot Constipation : per snapshot Depressive disorder, not elsewhere classified Had a few episodes - will follow GERD (gastroesophageal reflux disease) : per snapshot HTN (hypertension) Human papilloma virus infection Mood disorder (HCC) Morbid obesity (HCC) BMI 36 Osteoarthritis of right knee : per snapshot Prediabetes Pertinent Family History: Review of patient's family history indicates: Problem: Heart Disease Relation: Father Age of Onset: (Not Specified) Problem: Coronary Artery Disease Relation: Father Age of Onset: (Not Specified) Problem: Hypertension Relation: Mother Age of Onset: (Not Specified) Comment: lupus Problem: Other (Other) Relation: Sister Age of Onset: (Not Specified) Problem: Cervical Cancer Relation: Unknown relative Age of Onset: (Not Specified) Problem: Breast Cancer Relation: Negative Family History of Age of Onset: (Not Specified) Problem: Ovarian Cancer Relation: Negative Family History of Age of Onset: (Not Specified) Problem: Uterine Cancer Relation: Negative Family History of Age of Onset: (Not Specified) Pertinent Social History: Social History Occupational History 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 Employer: [employer] Tobacco Use Smoking status: Current Some Day Smoker Packs/day: 0.33 Years: 25.00 Pack years: 8.25 Types: Cigarettes Smokeless tobacco: Never Used Tobacco comment: 1 pack last 1-1.5 weeks Substance and Sexual Activity Alcohol use: Yes Comment: hx of ETOH abuse--sober for 3 years, had hx of prior relapses before Drug use: No Comment: not currently but hx of THC and remote hx of cocaine Sexual activity: Yes Partners: Male PHYSICAL EXAM [facility] 08/27/2002 Exam: Constitutional Alert, No acute distress and poor historian, but coherent HENT Oropharynx clear, no plaques or exudates, Posterior Oropharynx symmetric and dry mucous membranes Eyes Extraocular muscles intact, Pupils equal and round and No conjunctival pallor Neck No cervical spine bony tenderness, crepitus, or stepoff, No nuchal rigidity and Normal range of motion Lungs Clear to auscultation, Breath sounds equal and symmetric and No rhonchi, rales or wheeze Heart Regular rate and rhythm, No murmur, rub or gallop and Normal S1, S2 Abdomen Soft, Nontender, No distension and large abdomina scar, patient reports from gastric bypasssurgery Back No midline bony tenderness to thoracic/lumbar/sacral spines and No abrasions to back Extremities Normal range of motion all 4 extremities, Intact distal pulses to all 4 extremities andThoracic, Lumbar and Sacral spines no bony tenderness Neuro Alert, Oriented times 3 and Cranial nerves 3-12 intact to exam Skin No rash or lesion, Warm and Dry Psych Normal affect, Good eye contact and Cooperative MEDICAL DECISION MAKING and ED COURSE Nursing triage and assessment notes reviewed and incorporated Chart Reviewed: Summary of pertinent elements includes history of admission in 2019 for GI bleed, EGD significant for gastric ulcer which was cauterized. Evaluated by EM attending Salvador Benton Interpretation of Results: Course: ED Course as of 12/28/211850 Sun December 28, 20211807 Hemoglobin(!): 10.5 [SP] 1826 MCV(!): 76 [SP] 1826 Sodium(!): 132 [SP] 1826 Creatinine(!): 1.13 [SP] ED Course User Index [SP] Dwaine Badillo DO Medical Decision Making: Patient presenting with syncope. Hemodynamically stable on admission. Patient had one episode of coffee ground emesis while in the ED. Plan: [facility] after labs result. IMPRESSION AND DISPOSITION Clinical Impression Diagnosis Comment Syncope and collapse [R55] Disposition: Admitted to Floor: Night Float Team 1. Case discussed with resident and care turned over to team at appx .202912/28/2021 Patient Condition: stable The patient has received a medical screening examination and within reasonable clinical confidence the patient was stabilized within the capabilities of the emergency department and requires admission / observation. Counseling: Spoke with the patient and discussed today s findings, in addition to providing specific details for the plan of care and expected course. They were given the opportunity to ask questions. Dwaine Badillo, DO ED Attending Note see separate progress note UGIB, admit medicine I saw and evaluated the patient. I personally obtained the bates and critical portions of the historyand physical exam. I reviewed the resident's documentation and discussed the patient with the resident. I agree with the resident's medical decision making as documented in the resident's note exceptas may be otherwise noted above or elsewhere in the chart to the point care was transferred to the inpatient service at approximately 202912/28/21 Dr. [facility] Benton [facility] No data available for this section [facility] Evaluation note* Diagnosis Gastrointestinal hemorrhage, unspecified gastrointestinal hemorrhage type- Primary Syncope and collapse Peptic ulcer Peptic ulcer, unspecified site, unspecified as acute or chronic, without mention of hemorrhage, perforation, or obstruction 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-en-Y gastric bypass Anastomotic ulcer Gastrojejunal ulcer, unspecified as acute or chronic, without mention of hemorrhage, perforation, or obstruction Chronic iron deficiency anemia documented in this encounter [facility] noteNo assessment information [facility] Work Phone: Evaluation note* Diagnosis Onset Date Resolution Status Closed head injury acute Fall acute Syncope acute [facility] Work Phone: Evaluation note* Diagnosis Onset Date Resolution Status Anxiety and depression acute Closed head injury acute Fall acute Syncope acute Hypertension chronic Insomnia chronic [facility] Work Phone: Evaluation note* Diagnosis Routine adult health maintenance- Primary Routine general medical examination at a health care facility Lipid screening Screening for lipoid disorders 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-en-Y gastric bypass Postoperative malabsorption Cervical spondylosis without myelopathy Primary osteoarthritis of right knee Primary localized osteoarthrosis, lower leg Anastomotic ulcer S/P gastric bypass Calculus of gallbladder without cholecystitis without obstruction Calculus of gallbladder without mention of cholecystitis or obstruction Generalized abdominal pain Abdominal pain, generalized Dizziness Dizziness and giddiness Prediabetes Other abnormal glucose Body mass index (BMI) 26.0-26.9, adult documented in this [facility]* Diagnosis Hyperlipidemia, unspecified hyperlipidemia type- Primary Postoperative malabsorption [facility]* Diagnosis B12 deficiency- Primary Other B-complex deficiencies documented [facility]* Diagnosis Onset Date Resolution Status Anxiety and depression acute Hx of bariatric surgery acut e Hypertension chronic Insomnia chronic Iron deficiency anemia following bariatric surgery resolved [facility] Work Phone: Evaluation note* Diagnosis Anastomotic ulcer S/P gastric bypass- Primary [facility] this [facility]* Diagnosis Cervical spondylosis without myelopathy- Primary [facility]* Diagnosis Cervical spondylosis without myelopathy- Primary [facility]* Diagnosis Postoperative malabsorption (HCC)- Primary [facility]* Diagnosis B12 deficiency- Primary Other B-complex deficiencies documented [facility]* Diagnosis Cervical spondylosis without myelopathy- Primary documented in this encounter [facility] Work Phone: Hospital Discharge instructions Additional Instructions Take Tylenol 1000 mg every 6 hours as needed and follow-up with your doctor next week if symptoms are persistent.[facility] Work Phone: Hospital Discharge instructions Additional Instructions Patient's evaluation at [facility] was unremarkable. Blood counts are stable. Electrolytes are unremarkable. Potassium is elevated due to hemolysis. Chest x- ray, EKG and CAT scan of the brain were unremarkable. We had planned to admit her for a syncopal event. Family believes that she has a recent work-up done at [facility] that showed valvular heart disease and they would prefer to go there for further evaluation.[facility] Work Phone: Hospital Discharge instructions Additional Instructions Cardiac workup negative. D-dimer negative. Chest x-ray negative. Hemoglobin 11.5. White count 5.3. Creatinine 1.04. Follow-up as an outpatient as given to further testing. If you have recurrent symptoms, return to the ED for reevaluation.[facility] Work Phone: Hospital Discharge instructions No data available for this section [facility] Progress note No data available for this section [facility] Reason for referral (narrative)* Tests/Procedures (Routine) - Pending Review Specialty Diagnoses / Procedures Referred By Contact Referred To Contact Cardiovascular Testing Diagnoses Dizziness Hilton Johnson MD ContraqerGUERNSEY [facility]IAL [place] [address] [facility] CARD NON INVASIVE [address] [place] [address] Referral ID Status Reason Start Date Expiration Date V isits Requested Visits Authorized [id number] Pending Review 03/09/2023 03/09/2024 1 1 Scheduling Instructions 1. Take your medicines as prescribed by your doctor. (If you take a water pill, do not take it the morning of the test. You may take it when you return home). 2. You may eat meals and drink fluids at your normal times. 3. This test takes approximately one hour. 4. Please call the [facility] at [phone] ([phone]) if you are unable to keep your appointment. Question Answer Is this being ordered for a patient starting, undergoing or evaluating chemotherapy? No Comments Insert IV access & flush with 3ml of 0.9% sodium chloride PRN to keep patent, if not already present for LV contrast with Definity and/or saline contrast. Please indicate height and weight if it does not appear below. Blood pressure 116/66, pulse 76, temperature 97.9 F (36.6 C), temperature source Skin, height 5' 6 (1.676 m), weight 164 lb (74.4 kg), last menstrual period 08/27/2002. [email or web address] * Service Level Authorization (Routine) - Pending Review Specialty Diagnoses / Procedures Referred By Contac t Referred To Contact Cardiology Diagnoses Dizziness Hilton Johnson MD [address] [place] [id number] S CARDIOLOGY [address] [place] [id number] Referral ID Status Reason Start Date Expiration Date V isits Requested Visits Authorized [id number] Pending Review 03/09/2023 03/09/2024 3 3 Scheduling Instructions Please call the [facility] at [phone] to schedule an appointment if one was not made for you today. Question Answer What is the primary reason for consult? Dizziness [10] At what location would you like the patient to be seen? [facility] Summary Purpose Family History No Family History Records Found Relationship Condition Age at Onset Recorded Date/T ambar father Myocardial infarction Unknown Alcohol abuse Unknown mother Cerebrovascular accident (CVA) Unknown Hypertension Unknown Thrombosis Unknown sister Lupus Unknown Advance Directives No Advanced Directives Records FoundLatest Code Status on File Code Status Date Activated Date Inactivated Comments Full Code 12/28/2021 10:20 PM Documentation of decision pr ocess for this code status: Discussed with patient or surrogate. Thi s is the code status chosen by the patient/surrogate. Full Code 06/14/2019 8:46 PM 06/15/2019 4:01 PM Latest Code Status on File Code Status Date Activated Date Inactivated Comments Full Code 12/28/2021 10:20 PM 01/01/2022 11:26 AM Full Code 06/14/2019 8:46 PM 06/15/2019 4:01 PM Advance Directive Response Recorded Date/ Time Advance Directives No March 05, 10:27am Living Will No July 07 12:21pm Power of [employer] No July 07, 2022 12:21pm Advance Directive Response Recorded Date/ Time Advance Directives No March 05 10:27am Living Will No October 09, 2022 5:35pm Power of [employer] No October 09 5:35pm Advance Directive Response Recorded Date/ Time Advance Directives No March 05 11:27am Living Will No October 22, 2022 11:50am Power of [employer] No October 22 11:50am Advance Directive Response Recorded Date/ Time Advance Directives No March 05 11:27am Living Will No February 13, 2023 7:26pm Power of [employer] No February 13 7:26pm Advance Directive Response Recorded Date/ Time Advance Directives No March 05 11:27am Living Will No February 13, 2023 10:30pm Power of [employer] No February 13 10:30pm Latest Code Status on File Code Status Date Activated Date Inactivated Comments Full Code 12/28/2021 10:20 PM 01/01/2022 11:26 AM Question Answer Comments Documentation of decision process for this code status: Discussed with patient or surrogate. This is the code status chosen by the patient/surrogate. Code Status History Code Status Date Activated Date Inactivated Comments Full Code 06/14/2019 8:46 PM 06/15/2019 4:01 PM Question Answer Comments Documentation of decision process for this code status: Discussed with patient or surrogate. This is the code status chosen by the patient/surrogate. Latest Code Status on File Code Status Date Activated Date Inactivated Comments Full Code 12/28/2021 10:20 PM 01/01/2022 11:26 AM Question Answer Comments Documentation of decision process for this code status: Discussed with patient or surrogate. This is the code status chosen by the patient/surrogate. Code Status History Code Status Date Activated Date Inactivated Comments Full Code 06/14/2019 8:46 PM 06/15/2019 4:01 PM Question Answer Comments Documentation of decision process for this code status: Discussed with patient or surrogate. This is the code status chosen by the patient/surrogate. Advance Directive Response Recorded Date/ Time Advance Directives No March 05 11:27am Living Will No March 23 4:25pm Power of [employer] No March 23 4:25pm Advance Directive Response Recorded Date/ Time Advance Directives No March 05, 021 11:27am Living Will No November 16, 2023 2:13pm Power of [employer] No November 15 2:13pm Date Activated Date Inactivated Comments 12/28/2021 10:20 PM 01/01/2022 11:26 AM Question Answer Comments Documentation of decision pr ocess for this code status: Discussed with patient or surrogate. This is the code status chosen by the patient/surrogate. Date Activated Date Inactivated Comments 06/14/2019 8:46 PM 06/15/2019 4:01 PM Question Answer Comments Documentation of decision pr ocess for this code status: Discussed with patient or surrogate. This is the code status chosen by the patient/surrogate. Date Activated Date Inactivated Comments 12/28/2021 10:20 PM 01/01/2022 11:26 AM Question Answer Comments Documentation of decision pr ocess for this code status: Discussed with patient or surrogate. This is the code status chosen by the patient/surrogate. Date Activated Date Inactivated Comments 06/14/2019 8:46 PM 06/15/2019 4:01 PM Question Answer Comments Documentation of decision pr ocess for this code status: Discussed with patient or surrogate. This is the code status chosen by the patient/surrogate. Reason for Referral Specialty Diagnoses / Procedures Referred By Rosalinda quinn Referred To Contact Gastroenterology Diagnoses Gastrointestinal hemorrhage, unspecified gastrointestinal hemorrhage type Chronic iron deficiency anemia Orestes Gaspar MD [address] [place] [address] [facility] GASTROENTEROLOGY [address] [place] [address] Referral ID Status Reason Start Date Expiration Date V isits Requested Visits Authorized [id number] Pending Review 12/31/2021 12/31/2022 3 3 Scheduling Instructions Please call the Gastroenterology Clinic at to schedule an appointment if one was not made for you today. Question Answer Reason for Referral: Ulcer [70] Which GI clinic should the patient be scheduled in? General GI Clinic Comments No prior visits in Gastroenterology Specialty Diagnoses / Procedures Referred By Contact Referred To Contact Cardiovascular Testing Emergency Medicine [address] [place] [address] [facility] CARD NON INVASIVE [address] [place] [address] Referral ID Status Reason Start Date Expiration Date V isits Requested Visits Authorized [id number] Authorized 12/28/2021 12/28/2022 1 1 Scheduling Instructions 1. Take your medicines as prescribed by your doctor. (If you take a water pill, do not take it the morning of the test. You may take it when you return home). 2. You may eat meals and drink fluids at your normal times. 3. This test takes approximately one hour. 4. Please call the [facility] at [phone] ([phone]) if you are unable to keep your appointment. Question Answer Clinical Indication for procedure Syncope Comments Insert IV access & flush with 3ml of 0.9% sodium chloride PRN to keep patent, if not already present for LV contrast with Definity and/or saline contrast. Please indicate height and weight if it does not appear below. Blood pressure 114/56, pulse 66, temperature 98.2 F (36.8 C), temperature source Oral, resp. rate 15, last menstrual period 08/27/2002, SpO2 99 %. [id number] Peptic ulcer, site unspecified, unspecified as acute or chronic, without h* @PROBHOSP@ Specialty Diagnoses / Procedures Referred By Rosalinda quinn Referred To Contact Diagnoses Cervical spondylosis without myelopathy Drew Rosenbaum, DO [address] [place] [address] [facility] [place] [address] Referral ID Status Reason Start Date Expiration Date Visits Requested Visits Authorized [id number] [facility]/06[facility]24 01/05/2025 1 1 Scheduling Instructions You have been referred to the [facility]. You will be contacted to schedule your appointment within 24 - 48 hours. If you are not contacted within this time frame please call the [facility] at [phone] to schedule your appointment. Question Answer Reason for Referral: Back Pain [23] Chief Complaint and Reason for Visit Chief Complaint sob Chief Complaint sob HEAD INJURY Chief Complaint sob HEAD INJURY WEAKNESS Chief Complaint WEAKNESS SYNCOPE Reason for Visit Closed head injury Fall Syncope Chief Complaint WEAKNESS SYNCOPE Syncope Syncope Reason for Visit Anxiety and depressi on Closed head injury Fall Syncope Hypertension Insomnia Chief Complaint SYNCOPE Syncope Syncope Syncope EVALUATE FOR UNDERLYING ARRHYTHMIA ABD Reason for Visit Anxiety and depressi on Hx of bariatric surgery Hypertension Insomnia Iron deficiency anemia following bariatric surgery Chief Complaint CHEST PAIN Additional Source Comments INFORMATION SOURCE (unrecogn ized section and content) DATE CREATED AUTHOR 07/08/2019 [facility] ([place]) DATE CREATED AUTHOR AUTHOR'S ORGANIZ ATION 02/21/2024 [facility] [email or web address] [facility] DATE CREATED AUTHOR AUTHOR'S ORGANIZ ATION 06/11/2024 [facility] DATE CREATED AUTHOR AUTHOR'S ORGANIZ ATION 11/23/2024 [facility] DATE CREATED AUTHOR AUTHOR'S ORGANIZ ATION 12/28/2024 [facility] Reason for Visit (unrecogniz ed section and content) Reason Comments Fainting Per ems, family stat es patient passed out, +etoh and marijuana Specialty Diagnoses / Procedures Referred By Contac t Referred To Contact Emergency Medicine Diagnoses Peptic ulcer, site unspecified, unspecified as acute or chronic, without hemorrhage or perforation Procedures . [facility] [facility] [employer] [place] [address] Phone: [phone] [place] [address] [place] [address] Phone: [phone] Referral ID Status Reason Start Date Expiration Date Visits Re quested Visits Authorized [id number] 3 3 Reason Onset Date Comments Left Message To Call Back 02/26/2022 Reason Comments Refill Reason Onset Date Comments Requesting Medications 02/24/2023 Reason Comments New patient, to establish relationship Medication Management Reason Onset Date Comments Med Change Request 03/15/2023 Reason Onset Date Comments Medical Record Review 05/28/2023 Reason Comments Refill Reason Onset Date Comments Update 01/21/2024 Reason Onset Date Comments Refill Reference 99 02/08/2024 Scheduled Active and Recently Administ ered Medications (unrecognized section and content) Medication Order 12/30/2021 12/31/2021 01/01/2022 albuterol (PROVENTIL) (2.5 MG/3ML) 0.083% nebulizer solution 2.5 mg, Nebulization, EVERY 4 HOURS RT, First dose on 12/29/21 at 0400, Until Discontinued 0000 (Automatically Held - Provider: Nano Nadeem, RT)0400 (Automatically Held - Provider: Nano Nadeem, RT)0800 (Automatically Held - Provider: Nano Nadeem, RT)1200 (Automatically Held - Provider: Nano Nadeem, RT)1600 (Automatically Held - Provider: Nano Nadeem, RT)2000 (Automatically Held - Provider: Nano Nadeem, RT) 0000 (Automatically Held - Provider: Nano Nadeem, RT)0400 (Automatically Held - Provider: Nano Nadeem, RT)0800 (Automatically Held - Provider: Nano Nadeem, RT)1200 (Automatically Held - Provider: Nano Nadeem, RT)1600 (Automatically Held - Provider: Nano Nadeem, RT)2000 (Automatically Held - Provider: Nano Nadeem, RT) 0000 (Automatically Held - Provider: Nano Nadeem, RT)0400 (Automatically Held - Provider: Nano Nadeem, RT)0800 (Automatically Held - Provider: Nano Nadeem, RT)1200 (Automatically Held - Provider: Nano Nadeem, RT)1600 (Automatically Held - Provider: Nano Nadeem, RT)2000 (Automatically Held - Provider: Nano Nadeem, RT) diphenhydrAMINE (BENADRYL) 50 mg in sodium chloride 0.9 % 50 mL ivpb (COMPLETED) 50 mg, Intravenous, ONCE, 1 dose, On Wed12/31/21 at 1600, at 200 mL/hr 1859 (IV New Bag - Provider: Gayatri Collins RN) diphenhydrAMINE-maalo x-lidocaine (BMX) 1:1:1 oral suspension (CANCELED) 15 mL, Swish & Swallow, EVERY 6 HOURS, First dose on Wed12/30/21 at 1600, Until Discontinued 1745 (Given - Provider: Catalina Hyde, CHINEDU)2037 (Given - Provider: Clara Lewis, CHINEDU)2200 (Mistaken Entry - Provider: Clara Lewis, RN) 0400 (Hold/Not Given - Provider: Clara Lewis, RN - Reason: Patient sleeping)1000 (Hold/Not Given - Provider: Catalina Hyde, RN - Reason: Patient refused) esomeprazole (NEXIUM) 40 MG injection 40 mg, Intravenous Push, 2 TIMES DAILY, First dose on Wed12/29/21 at 0900, Until Discontinued 937 (Given - Provider: Catalina Hyde RN)2127 (Given - Provider: Clara Lewis RN) 958 (Given - Provider: Catalina Hyde RN)2046 (Given - Provider: Lucero Brewer RN) 0900 (Hold/Not Given - Provider: Catalina Hyde, RN - Reason: Route unavailable)2100 (Due) ferrous sulfate tablet TABS (CANCELED) 325 mg, Oral, EVERY OTHER DAY, First dose on Wed12/30/21 at 1400, Until Discontinued 154 (Given - Provider: Catalina Hyde RN) iron sucrose (VENOFER) 200 mg in sodium chloride 0.9 % 100 mL ivpb (COMPLETED) 200 mg, Intravenous, ONCE, 1 dose, On Wed12/31/21 at 1100 1950 (IV New Bag - Provider: Catalina Hyde RN - Comment: needed benadryl prior to infusion) melatonin tablet 5 mg, Oral, AT BEDTIME, First dose on Wed12/30/21 at 2130, Until Discontinued 2202 (Given - Provider: Clara Lewis RN) 2100 (Hold/Not Given - Provider: Jessenia Perez RN - Reason: Clinical contraindications - Comment: Pt being discharged) 2199 (Due) oxyCODONE immediate release tablet (COMPLETED) 2.5 mg, Oral, ONCE, 1 dose, On Wed12/30/21 at 0030 0056 (Given - Provider: Kimi Amezcua RN) oxyCODONE immediate release tablet (COMPLETED) 5 mg, Oral, ONCE, 1 dose, On Wed12/30/21 at 2030 2037 (Given - Provider: Clara Lewis, CHINEDU) trazodone (DESYREL) tablet (COMPLETED) 50 mg, Oral, ONCE, 1 dose, On Wed12/31/21 at 0100 0050 (Given - Provider: Clara Lewis RN) PRN Medication Order 12/30/2021 12/31/2021 01/01/2022 acetaminophen (TYLENOL) tablet 500 mg, Oral, EVERY 4 HOURS PRN, Starting on Wed12/28/21 at 2302, Until Discontinued, Mild Pain (pain score 1,2,3), Moderate Pain (pain score 4,5,6), Severe Pain (pain score 7,8,9,10) 1547 (Given - Provider: Catalina Hyde, CHINEDU) albuterol (PROVENTIL) (2.5 MG/3ML) 0.083% nebulizer solution 2.5 mg, Nebulization, EVERY 4 HOURS PRN, Starting on Wed12/29/21 at 0204, Until Discontinued, Shortness of Breath, or not indicated meperidine (DEMEROL) 50 MG/ML injection (CANCELED) PRN, Starting on Wed12/30/21 at 1021, Until Wed12/30/21 at 1112, Intra-op 1021 (Given - Provider: Angela Carter, CHINEDU)1023 (Given - Provider: Angela Carter, CHINEDU)1030 (Given - Provider: Angela Carter, CHINEDU) midazolam (VERSED) 2 MG/2ML injection (CANCELED) PRN, Starting on Wed12/30/21 at 1021, Until Wed12/30/21 at 1112, Intra-op 1021 (Given - Provider: Angela Carter RN)1023 (Given - Provider: Angela Carter, CHINEDU)1030 (Given - Provider: Angela Carter, CHINEDU) Care Teams (unrecognized sec tion and content) Structural Architect Relationship Specialty Start Date End Date Prateek Moscoso LISW [address] [place] [id number] Bank Officer Social Work 05/07/20 Structural Architect Relationship Specialty Start Date End Date Prateek Moscoso LISW [address] [place] [address] Bank Officer Social Work 05/07/20 Team Status: Active Member Role Status Dates No Primary Care Physician Family Provider Active No Primary Care Physician Primary Care Provider Active Team Status: Inactive Member Role Status Dates Dr. Jose Houston DO Attending Provider, Emergency P jorge Active No Primary Care Physician Primary Care Provider Active Team Status: Inactive Member Role Status Dates No Primary Care Physician Primary Care Provider Active Dr. Anthony Rutledge MD Emergency Provider Active Team Status: Inactive Member Role Status Dates No Primary Care Physician Primary Care Provider Active Dr. Anthony Rutledge MD Attending Provider, Emergency Provi concepcion Active Team Status: Inactive Member Role Status Dates No Primary Care Physician Primary Care Provider Active Dr. Blaise Tom DO Emergency Provider Active Team Status: Inactive Member Role Status Dates No Primary Care Physician Primary Care Provider Active Dr. Blaise Tom DO Attending Provider, Emergency Provider Active Team Status: Active Member Role Status Dates No Primary Care Physician Primary Care Provider Active Dr. Albert Carbone MD Emergency Provider Active Dr. Jeniffer Campos MD Admit Provider, Attending Prov ider Active Team Status: Active Member Role Status Dates No Primary Care Physician Primary Care Provider Active Dr. Albert Carbone MD Emergency Provider Active Dr. Jeniffer Campos MD Admit Provider, Other Provider Active Dr. Drew Solis MD Attending Provider, Other Provid er Active Team Status: Active Member Role Status Dates No Primary Care Physician Primary Care Provider Active Dr. Albert Carbone MD Emergency Provider Active Dr. Jeniffer Campos MD Admit Provider, Other Provider Active Dr. Virginie Aguillon MD Attending Provider, Other Provid er Active Dr. Drew Solis MD Other Provider Active Team Status: Active Member Role Status Dates No Primary Care Physician Primary Care Provider Active Dr. Margarette Christensen MD Attending Provider Active Team Status: Inactive Member Role Status Dates No Primary Care Physician Primary Care Provider Active Dr. Albert Carbone MD Emergency Provider Active Dr. Jeniffer Campos MD Admit Provider, Other Provider Active Dr. Virginie Aguillon MD Attending Provider Active Dr. Drew Solis MD Other Provider Active Structural Architect Relationship Specialty Start Date End Date Prateek Moscoso LISW [address] [place] [address] Bank Officer Social Work 05/07/20 Structural Architect Relationship Specialty Start Date End Date Prateek Moscoso LISW [address] [place] [address] Bank Officer Social Work 05/07/20 Structural Architect Relationship Specialty Start Date End Date Prateek Moscoso LISW [address] [place] [address] Bank Officer Social Work 05/07/20 Structural Architect Relationship Specialty Start Date End Date Prateek Moscoso LISW [address] [place] [address] Bank Officer Social Work 05/07/20 Structural Architect Relationship Specialty Start Date End Date Hilton Johnson MD [address] [place] [id number] PCP - General Family Medicine 03/15/23 Prateek Moscoso LISW [address] [place] [address] Bank Officer Social Work 05/07/20 Team Status: Active Member Role Status Dates No Primary Care Physician Primary Care Provider Active Dr. Virginie Aguillon MD Attending Provider, Referring Pr ovider Active Structural Architect Relationship Specialty Start Date End Date Hilton Johnson MD [address] [place] [id number] PCP - General Family Medicine 03/15/23 Prateek Moscoso LISW [address] [place] [address] Bank Officer Social Work 05/07/20 Structural Architect Relationship Specialty Start Date End Date Hilton Johnson MD [address] [place] [id number] PCP - General Family Medicine 03/15/23 Prateek Moscoso LISW [address] [place] [address] Bank Officer Social Work 05/07/20 Team Status: Inactive Member Role Status Dates No Primary Care Physician Primary Care Provider Active Dr. Charly Almonte DO Emergency Provider Active Structural Architect Relationship Specialty Start Date End Date Hilton Johnson MD [address] [place] [id number] PCP - General Family Medicine 03/15/23 Prateek Moscoso LSW [address] [place] [address] Bank Officer Social Work 05/07/20 Structural Architect Relationship Specialty Start Date End Date Hilton Johnson MD [address] [place] [address] PCP - General Family Medicine 03/15/23 Prateek Moscoso LSW [address] [place], [place] [id number] Bank Officer Social Work 05/07/20 Structural Architect Relationship Specialty Start Date End Date Hilton Johnson MD [address] [place] [id number] PCP - General Family Medicine 03/15/23 Prateek Moscoso LSW [address] [place], [place] [id number] Bank Officer Social Work 05/07/20 Structural Architect Relationship Specialty Start Date End Date Hilton Johnson MD [address] [place] [id number] PCP - General Family Medicine 03/15/23 Prateek Moscoso LSW [address] [place], [place] [id number] Bank Officer Social Work 05/07/20 Goals (unrecognized section and content) Goals may be documented in a n alternate sectionGoals may be documented in an alternate sectionGoals may be documented in an alternate sectionGoals may be documented in an alternate sectionGoals may be documented in an alternate section No data available for this section FOR RECORDS PERTAINING TO PATIENTS WHO ARE OR HAVE BEEN ENROLLED IN A CHEMICAL DEPENDENCY/SUBSTANCEABUSE PROGRAM, SOME INFORMATION MAY BE OMITTED. This clinical summary was aggregated from multiple sources. Caution should be exercised in using it in the provision of clinical care. This summary normalizes information from multiple sources, and as a consequence, information in this document may materially change the coding, format and clinical context of patient data. In addition, data may be omitted in some cases. CLINICAL DECISIONS SHOULD BE BASED ON THE PRIMARY CLINICAL RECORDS. [facility] [employer] [facility]. provides no warranty or guarantee of the accuracy or completeness of information in this document.
[2025-01-25 22:28] LABS: Platelet Count 300 K/mm3 (150-450); RET-HE 24.7 pg (30-35); Reticulocyte Count 1.43 % (0.5-1.5)
[2025-01-25] MEDS: Pantoprazole Sodium 40 MG in 0.9% Normal Saline (100mL MB+) 100 ML 330 MG IV (23:12)
[2025-01-25] MEDS: MELATONIN 3 MG TABLET 10 MG PO (23:12)
[2025-01-25] MEDS: oxyCODONE 5 MG Tablet 2.5 MG PO (23:12)
[2025-01-25] MEDS: 0.9% Normal Saline (250mL Bag) 250 ML 15 ML IV (23:12)
[2025-01-25] MEDS: 0.9% Saline Lock 10 ML Syringe IV (23:12)
[2025-01-25] MEDS: Mirtazapine 15 MG Tablet 7.5 MG PO (23:13)
[2025-01-25] MEDS: Senna/Docusate Sodium 1 Tablet 2 TABLET PO (23:13)
[2025-01-25 23:30] LABS: Ferritin 13 ng/mL (22-378)
[2025-01-26 03:03] LABS: Iron 26 ug/dL (50-170); Iron Binding Capacity,Unsat 475 ug/dL (228-428)
[2025-01-26 03:22] LABS: Iron Binding Capacity,Total 501 ug/dL (250-450); PERCENT IRON SATURATION 5.2 % (13-59)
[2025-01-26 04:00] VITALS: BP 113/68; PULSE 89; RESP 16; TEMP 36.6; O2SAT 98
[2025-01-26 06:51] LABS: Absolute Lymphocyte Count 2.09 X10^3/uL (0.83-4.51); Basophil# 0.02 X10^3/uL; Basophil% 0.6 % (0-1); Eosinophil# 0.15 X10^3/uL; Eosinophils% 4.2 % (0-5); Hematocrit 25.5 % (37-47); Hemoglobin 7.8 g/dL (12.0-15.0); Lymphocyte # 2.09 X10^3/ul (0.83-4.51); Lymphocyte % 58.4 % (19-41); Mean Corp Hgb Conc 30.6 g/dL (32-36); Mean Corpuscular Hgb 20.4 pg (27.0-32.0); Mean Corpuscular Volume 66.6 fL (81-99); Mean Platelet Vol. 9.5 fl (6.2-12.0); Monocyte# 0.37 X10^3/uL; Monocyte% 10.3 % (0-10); NRBC Flagged by Analyzer 0 % (0-5); Neutrophil # 0.95 X10^3/uL (2.7-7.7); Neutrophil % 26.5 % (47-70); POSITIVE DIFFERENTIAL YES; Platelet Count 237 K/mm3 (150-450); RBC Distribution Width CV 18.7 % (11.6-14.6); RBC Distribution Width SD 43.4 fl (35.1-43.9); Red Blood Count 3.83 M/mm3 (4.2-5.4); White Blood Count 3.6 K/mm3 (4.4-11.0)
[2025-01-26 07:16] LABS: Differential Indicated SCAN CRITERIA MET
[2025-01-26 07:24] LABS: Anion Gap 11 (5-15); BUN 12 mg/dL (4-19); BUN/Creat Ratio 13.3 RATIO (10-20); Carbon Dioxide 18.7 mmol/L (21.0-32.0); Chloride 107 mmol/L (98-108); Creatinine, Serum 0.92 mg/dL (0.70-1.20); EST Glomerular Filtration Rate 70 (>60); Estimated Creatinine Clearance 57.83 ml/min (50-250); Glucose 90 mg/dL (70-99); Potassium 3.8 mmol/L (3.3-5.1); Sodium Level 136 mmol/L (133-145)
[2025-01-26 08:00] VITALS: BP 104/75; PULSE 80; RESP 15; TEMP 36.6; O2SAT 100
[2025-01-26 08:25] LABS: Anisocytosis 1+; Macrocytosis 1+; Polychromasia 1+
[2025-01-26 08:26] LABS: Schistocytes 1+; Target Cells 1+
[2025-01-26 08:27] LABS: Tear Drop Cell 1+
--- NOTE | 2025-01-26 10:24 | PN.HOSP_ITS ---
Reason for Visit Reason for Visit: Diagnoses Unspecified abdominal pain (01/25/25) Objective Data Objective Data Vital Signs: Vital Signs Temp Pulse Resp BP Pulse Ox O2 Del Method 97.9 F 80 15 104/75 100 Room Air 01/26/25 08:00 01/26/25 08:00 01/26/25 08:00 01/26/25 08:00 01/26/25 08:00 01/26/25 08:00 Oxygen Delivery Method Room Air Weight: 152 lb 6 oz Body Mass Index (BMI) 24.5 Intake & Output: Intake and Output for Last 24 Hours 01/24/25 01/25/25 01/26/25 23:59 23:59 23:59 Intake Total 1100 / 1100 100 / 100 Balance 1100 / 1100 100 / 100 Lab / Micro Data 01/26/25 05:41 01/26/25 05:41 Labs: Laboratory Results - last 24 hr 01/25/25 13:10: WBC 4.1 L, RBC 4.52, Hgb 9.0 L, Hct 29.7 L, MCV 65.7 L, MCH 19.9 L, MCHC 30.3 L, RDW Std Deviation 42.5, RDW Coeff of Adelia 18.8 H, Plt Count , MPV 9.7, Immature Gran % (Auto) 0.200, Neut % (Auto) 38.6 L, Lymph % (Auto) 50.4 H, [place] % (Auto) 8.8, Eos % (Auto) 1.5, Baso % (Auto) 0.5, Absolute Neuts (auto) 1.6 L, Absolute Lymphs (auto) 2.05, Nucleated RBC % 0, Platelet Estimate ADEQUATE, Retic Count 1.43, Immature Retic Fraction 39.90 H, Retic Hgb Equivalent 24.7 L, Sodium 135, Potassium 4.2, Chloride 102, Carbon Dioxide 19.7 L, Anion Gap 13, BUN 17, Creatinine 1.09, Estim Creat Clear Calc 48.81 L, Est GFR (MDRD) Non-Af 57 L, BUN/Creatinine Ratio 16.0, Glucose 101 H, Calcium 9.6, Iron 26 L, TIBC 501 H, Iron Saturation 5.2 L, Unsaturated IBC 475 H, Ferritin 13 L, Total Bilirubin 0.24, AST 30, ALT 15, Alkaline Phosphatase 104, NT pro BNP II 95, Total Protein 7.4, Albumin 4.3, Globulin 3.1, Albumin/Globulin Ratio 1.4, Lipase 44 01/25/25 18:04: Urine Color Yellow, Urine Clarity Clear, Urine pH 5.0, Ur Specific [place] 1.015, Urine Protein 15 H, Urine Glucose (UA) Normal, Urine Ketones Negative, Urine Occult Blood 10 H, Urine Nitrite Negative, Urine Bilirubin Negative, Urine Urobilinogen Normal, Ur Leukocyte Esterase Negative, Urine RBC 0-5 SEEN, Urine WBC 0-5 SEEN, Ur Squamous Epith Cells 0-5 SEEN, Urine Bacteria 0 SEEN, Urine Mucus 0 SEEN 01/26/25 05:41: WBC 3.6 L, RBC 3.83 L, Hgb 7.8 L, Hct 25.5 L, MCV 66.6 L, MCH 20.4 L, MCHC 30.6 L, RDW Std Deviation 43.4, RDW Coeff of [place] 18.7 H, Plt Count 237, MPV 9.5, Immature Gran % (Auto) 0.000, Neut % (Auto) 26.5 L, Lymph % (Auto) 58.4 H, [place] % (Auto) 10.3 H, Eos % (Auto) 4.2, Baso % (Auto) 0.6, Absolute Neuts (auto) 1.0 L, Absolute Lymphs (auto) 2.09, Nucleated RBC % 0, Polychromasia 1+, Anisocytosis 1+, Macrocytosis 1+, Target Cells 1+, Tear Drop Cells 1+, Schistocytes 1+, Sodium 136, Potassium 3.8, Chloride 107, Carbon Dioxide 18.7 L, Anion Gap 11, BUN 12, Creatinine 0.92, Estim Creat Clear Calc 57.83, Est GFR (MDRD) Non-Af 70, BUN/Creatinine Ratio 13.3, Glucose 90, Calcium 9.0, TSH 2.830 Micro: Microbiology 01/25/25 16:10 Stool Stool Occult Blood (YULISSA) - Final Radiography Diagnostic Testing: Radiology Impression Chest X-Ray 01/25/25 14:40 IMPRESSION: The cardiomediastinal silhouette is stable, with a somewhat tortuous ascending aorta appearing unchanged. No evidence of cardiomegaly. Subtle left lower lobe airspace disease is seen, with differential diagnosis including Pneumonitis and (less likely given the appearance) atelectasis. No pleural effusion or pneumothorax is seen. No interval osseous change is seen. Reading Location: [facility] Abdomen/Pelvis CT 01/25/25 15:18 IMPRESSION: Fatty infiltration of the liver. Status post gastric bypass surgery. No acute abnormality is seen. Reading Location: [id number] Chest CTA 01/25/25 15:18 IMPRESSION: No evidence of pulmonary embolism. Reading Location: [facility] Physical Exam Narrative Seen and examined. Patient stated she has chronic iron deficiency anemia and gets iron. She also takes Benadryl half an hour before IV iron infusion because she has allergy and gets itching. No active or visible external GI bleed Physical exam General: Alert, Oriented x3, Cooperative. BMI 24.6 kg/m? HEENT: Atraumatic, PERRLA, EOMI, Normocephalic. Oral: No Gingival or Mucosal Lesions/ Ulcerations Neck: Supple, No JVD, Negative Carotid Bruits Chest wall/Lungs: Air entry diminished in bilateral lung bases. No crepitation/rhonchi Cardiovascular: Regular rate and rhythm, Normal S1,S2, No M/G/R Abdomen: Bowel Sounds Present, Soft, Non Tender, Non-Distended : No dysuria. No renal angle tenderness. No suprapubic tenderness. Extremities: No edema, Capillary Refill Less than 3 Seconds Skin: No rashes, No breakdown. Heart phlebotomy. Midline ordered Musculoskeletal: No Tenderness to Palpation of Joints or Extremities Neurological: Cranial nerves II-XII grossly intact, DTR 2+/4. No acute focal neurological deficit. Psych/Mental Status: Normal Affect, Appropriate. Assessment & Plan Assessment/Plan (1) Abdominal pain: PLAN: Plan 64-year-old female came to ED with shortness of breath, dizziness abdominal pain and black stool last week but it got better. History of iron deficiency anemia and requires blood transfusion. # Upper abdominal pain: Patient had CT abdomen with IV contrast which shows spleen normal size, GB surgically absent diffuse fatty atrophy of pancreas. Fatty infiltration of liver. She does not have any abnormalities suggestive or indicative of left upper quadrant abdominal pain. She had CTPA chest which shows negative for PE. Reported lungs clear. No pleural effusion. -Lipase within normal limits -Liver function within normal limits -Schedule bowel regimen to keep regular bowel movements -check gastric emptying study given patient's upper abdominal pain with frequent nausea -Supportive care -IV fluids - IV PPI 01/26: Exact cause unclear possible due to dyspepsia/poor gastric emptying/gastroparesis. # Worsened microcytic anemia -Hemoglobin 9.0 -5 months ago it was 11.4 and she is become progressively more microcytic -Fecal occult negative Iron panel suggestive of iron deficiency anemia with a low ferritin of 13, iron saturation 5.2% with low iron, high unsaturated IBC. IV Benadryl half an hour before iron infusion ordered # Per documentation does have a history of alcohol use disorder -Will start on CIWA but hold on coverage for now, can add if patient beginning to score concerns for impending withdrawal # History of gastric bypass surgery -Around 1999 -Noted #Mild aortic root dilation -41mm -Recommend outpt monitoring #Depression/anxiety/PTSD -Continue home medications #Hypertension - Continue home medications #DVT ppx: Lovenox subcu Charges/Coding Visit Charges Inpatient E&M: 58674 Subs Hosp L2
[2025-01-26] MEDS: 0.9% Saline Lock 10 ML Syringe IV (10:48)
[2025-01-26] MEDS: Pantoprazole Sodium 40 MG in 0.9% Normal Saline (100mL MB+) 100 ML 330 MG IV ×2 (10:48→21:41)
[2025-01-26] MEDS: Acyclovir 200 MG Capsule 400 MG PO ×2 (10:49→21:42)
[2025-01-26] MEDS: Enoxaparin 40 MG/0.4 ML Syringe SC (10:49)
[2025-01-26] MEDS: Triamterene 37.5MG/Hctz 25MG Capsule 1 CAP PO (10:49)
[2025-01-26] MEDS: Venlafaxine XR 75 MG Capsule PO (10:49)
[2025-01-26] MEDS: Lidocaine 5% Patch 1 PATCH TOPICAL (10:50)
[2025-01-26] MEDS: Ensure Plus High Protein 120 ML LIQUID PO ×2 (11:01→17:03)
[2025-01-26] MEDS: Senna/Docusate Sodium 1 Tablet 2 TABLET PO (13:00)
--- NOTE | 2025-01-26 13:00 | NM_ITS ---
PROCEDURE: GASTRIC EMPTYING STUDY 01/26/2025 REASON FOR EXAM: UPPER ABD PAIN AND NAUSEA TECHNIQUE: The patient ingested a a semi-solid meal of oatmeal. There was no vomiting postprandially. Anterior and posterior planar images of the upper abdomen were obtained for a total of 60 minutes. Regions of interest were drawn, and a geometric mean was used to calculate a [id number]. Medications taken in the past 24 hours that may affect gastric emptying: None RADIOPHARMACEUTICAL: Technetium 99 M sulfur colloid DOSE 1.2mCi orally, with oatmeal. FINDINGS: During the time of imaging, gastroesophageal reflux was not identified. Linear fit gastric emptying half-time of 50.39 minutes. Gastric emptying at 17.5 minutes of 22%, at 29.5 minutes of 39%, at 47.5 minutes of 43%, and at 59.5 minutes at 55%. NM/Gastric Emptying Study IMPRESSION: Normal semi solid phase gastric emptying Reading Location: [place] [address]
[2025-01-26] MEDS: Polyethylene Glycol 3350 17 GM PACKET PO (13:01)
--- NOTE | 2025-01-26 13:03 | NURSING ---
iv became tender shortly after starting protonix this am. iv dc'd. sheri barros rn came to restart, pt will be getting a midline
[2025-01-26 14:52] VITALS: BP 115/70; PULSE 75; RESP 12; TEMP 36.5; O2SAT 99
--- NOTE | 2025-01-26 15:17 | CASEMGMT ---
IBARRA Met with patient to complete IBARRA form. IBARRA form and its content were verbally explained and patient's questions were answered to the best of my ability.? Patient voiced understanding and signed IBARRA form.? Patient provided a copy of signed IBARRA form and original placed in patient's chart.? Patient had no further questions. Clara Becerra, Discharge Planning Asst
--- NOTE | 2025-01-26 15:47 | CASEMGMT ---
Addendum entered by Leslie Lisa 01/30/25 15:25: Pt was OBS status @ time of Chart Review (01/26 @ 1397). Addendum entered by Leslie Lisa 01/26/25 17:33: CHINEDU ARZOLA to room. Pt resting in bed. Introduced self and role. Pt denies having any discharge needs or concerns. She reports having a good support system @ home. She drives, stating her car is @ [facility] and she plans to drive home @ [place]. She denies need for any further DME than she already has @ home. Original Note: CHINEDU ARZOLA Chart Review: Dx: Left upper quadrant pain. 6 cl: 23 PT/OT evals reviewed. Pt lives w/grandson and roommate, independent @ baseline w/ADL's and IADL's. Pt ambulated 210-220 ft today, declined use of WW. No additional therapy recommended. PCP: No PCP. ED SW has provided directory. Medical record reviewed and patient evaluated for identification of discharge planning needs. Based on this review, patient does not currently demonstrate a need for discharge planning. CM remains available to assist with discharge planning needs as identified or requested.? Vega CHOPRA RN, CM
--- NOTE | 2025-01-26 16:45 | NURSING ---
WENT INTO ROOM TO HANG THE IRON AND PT NOW TELLS ME, SHE NEEDS IV BENADRYL PRIOR TO INFUSION D/T HX OF ITCHING. TEXT SENT TO DR COUCH
[2025-01-26] MEDS: DiphenhydrAMINE 50 MG/ML Syringe 12.5 MG IV (17:02)
[2025-01-26] MEDS: Sodium Ferric Gluconat/Sucrose 250 MG in 0.9% Normal Saline (250mL Bag) 250 ML 135 MG IV (17:03)
[2025-01-26 20:47] VITALS: BP 150/85; PULSE 70; RESP 16; TEMP 36.6; O2SAT 100
[2025-01-26] MEDS: Mirtazapine 15 MG Tablet 7.5 MG PO (21:41)
[2025-01-27 03:00] VITALS: BP 121/75; PULSE 88; RESP 16; TEMP 36.6; O2SAT 99
[2025-01-27] MEDS: Ensure Plus High Protein 120 ML LIQUID PO (08:55)
[2025-01-27 09:30] VITALS: BP 152/49; PULSE 76; RESP 16; TEMP 36.7; O2SAT 97
[2025-01-27] MEDS: DiphenhydrAMINE 50 MG/ML Syringe 12.5 MG IV (09:31)
[2025-01-27] MEDS: Pantoprazole Sodium 40 MG in 0.9% Normal Saline (100mL MB+) 100 ML 330 MG IV (09:32)
[2025-01-27] MEDS: 0.9% Saline Lock 10 ML Syringe IV (09:32)
--- NOTE | 2025-01-27 09:43 | PCM.DC ---
Discharge Instructions Diet Discharge Diet: No restrictions DC O2, CPAP, BIPAP needs Home O2 Discharge instructions: No Dressing / Incision Discharge Activity: Return to Normal Activity Weight Bearing Status: Weight bearing as tolerated Dressing / Incision Call your doctor if you observe: Fever of 101 or Higher, Coldness, Increased Pain, Numbness or Tingling, Change in Color, Inability to urinate, Inability to have a bowel movement, Shortness of breath, Dizziness, Fainting spells, Swelling in the ankles, Chest pain, Prolonged hiccupping, Increased palpitations (irregular heartbeat) and Calf discomfort Follow Up Care When: IN 2 WEEKS Test Results: Test results from this visit will be discussed in further detail at your follow-up appointment, if applicable. Discharge Plan Admission Admit Date/Time: 01/26/25 17:16 Attending Provider: Lam Espinal Primary Care Provider: Care Physician,No Primary Consulting Providers: Virginie Aguillon Discharge Orders/Prescriptions Prescriptions: New sennosides-docusate sodium [Stimulant Laxative Plus] 8.6-50 mg Tablet 2 tab PO BID PRN (Reason: constipation) Qty: 0 0RF Continued (DME) syringe with needle 1 mL 25 gauge x 1 syringe See Rx Instructions .ROUTE .MEDSUPPLY Qty: 100 Rx Instructions: As directed cholecalciferol (vitamin D3) 25 mcg (1,000 unit) capsule 25 mcg PO DAILY mirtazapine 7.5 mg tablet 7.5 mg PO QHS Qty: 30 1RF venlafaxine 75 mg capsule,extended release 24hr 75 mg PO QAM Qty: 30 1RF cyclobenzaprine 10 mg tablet 10 mg PO TID Patient Comments: leg spasm triamterene-hydrochlorothiazid 37.5-25 mg capsule 1 cap PO DAILY 30 Days Qty: 90 1RF albuterol sulfate 90 mcg/actuation HFA aerosol inhaler 2 puff INHALATION Q4H PRN (Reason: SOB, wheezing) Patient Comments: BREATHING (DME) rollator walker with seat See Rx Instructions .Route .MEDSUPPLY Qty: 1 0RF Rx Instructions: As directed cyanocobalamin (vitamin B-12) 1,000 mcg/mL solution 1,000 mcg IM Q30D Qty: 1 2RF Patient Comments: TOOK THIS MONTH, NOT SURE WHEN valacyclovir [Valtrex] 500 mg tablet 500 mg PO DAILY Qty: 90 1RF Referrals / Follow Up: Trell Tilley MD [Med Staff - Active Staff] - Within 1 Week (For IV iron infusion. 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 Unable to absorb oral iron) Care Physician,No Primary [Primary Care Provider] - Azalea Woods [employer], [employer] [Med Staff - Adv Practice Prof] - Within 1 Week (Iron IV infusion dependence after gastric bypass surgery. Could not absorb oral iron) Disposition Disposition (needs filled in before D/C Order can be placed): Home, Self Care
[2025-01-27] MEDS: Enoxaparin 40 MG/0.4 ML Syringe SC (10:57)
[2025-01-27] MEDS: Lidocaine 5% Patch 1 PATCH TOPICAL (10:58)
[2025-01-27] MEDS: Acyclovir 200 MG Capsule 400 MG PO (10:58)
[2025-01-27] MEDS: Venlafaxine XR 75 MG Capsule PO (10:59)
[2025-01-27] MEDS: Triamterene 37.5MG/Hctz 25MG Capsule 1 CAP PO (10:59)
[2025-01-27] MEDS: 0.9% Normal Saline (250mL Bag) 250 ML 15 ML IV (11:05)
[2025-01-27] MEDS: Sodium Ferric Gluconat/Sucrose 250 MG in 0.9% Normal Saline (250mL Bag) 250 ML 135 MG IV (11:07)
--- NOTE | 2025-01-27 11:51 | DS.PCM_ITS ---
Providers Date of Admission: 01/26/25 Date of Discharge: 01/27/25 Primary Care Physician: No Primary Care Phys Reason For Visit: LEFT UPPER QUADRANT PAIN Diagnosis Discharge Diagnosis (1) Abdominal pain: Status: Acute Code(s): R10.9 - Unspecified abdominal pain Plan 64-year-old female came to ED with shortness of breath, dizziness abdominal pain and black stool last week but it got better. History of iron deficiency anemia and requires blood transfusion. # Upper abdominal pain: Patient had CT abdomen with IV contrast which shows spleen normal size, GB surgically absent diffuse fatty atrophy of pancreas. Fatty infiltration of liver. She does not have any abnormalities suggestive or indicative of left upper quadrant abdominal pain. She had CTPA chest which shows negative for PE. Reported lungs clear. No pleural effusion. -Lipase within normal limits -Liver function within normal limits -Schedule bowel regimen to keep regular bowel movements -check gastric emptying study given patient's upper abdominal pain with frequent nausea -Supportive care -IV fluids - IV PPI 01/26: Exact cause unclear possible due to dyspepsia/poor gastric emptying/gastroparesis. 01/27: I think her pain is mostly functional. Gastric emptying study reported normal semisolid phage, emptying 55% in about 1 hour. She still complain of some left upper quadrant/left lower rib pain. I feel it might be musculoskeletal. Advised follow-up with PCP. 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 IV Benadryl half an hour before iron infusion ordered 01/27: She said after gastric bypass surgery she could not absorb oral iron therefore she is on IV iron infusion. She used to see Dr. Tilley but unclear why she is not following now. Advised to follow-up with Dr. Luke in 1 week. She had total of 2 IV iron infusion during hospital stay. # Per documentation does have a history of alcohol use disorder -Will start on CIWA but hold on coverage for now, can add if patient beginning to score concerns for impending withdrawal # History of gastric bypass surgery -Around 1999 -Noted #Mild aortic root dilation -41mm -Recommend outpt monitoring #Depression/anxiety/PTSD -Continue home medications #Hypertension - Continue home medications #DVT ppx: Lovenox subcu Discharge medication reconciliation done. Discharge follow-up instructions completed. Discharge process discussed with the patient and all questions were answered to patient's satisfaction. Follow with PCP in 1 to 2 weeks Total time spent, exact 35 minutes on discharge meds reconciliation, examination, coordination of care with nurses and ancillary staff, review of imaging and blood test and discussion with the patient on follow-up instructions. Medications at Discharge Home Medications rollator walker with seat #1 ea 10/09/20 cyanocobalamin (vitamin B-12) 1,000 mcg/mL injection solution 1,000 mcg IM Q30D #1 mL 12/20/20 syringe with needle 1 mL 25 gauge x 1 #100 ea 03/05/21 valacyclovir 500 mg tablet (Valtrex) 500 mg PO DAILY Herpes Flare #90 tabs 10/28/21 triamterene 37.5 mg-hydrochlorothiazide 25 mg capsule 1 cap PO DAILY 30 days #90 caps 02/16/23 cholecalciferol (vitamin D3) 25 mcg (1,000 unit) capsule 25 mcg PO DAILY 07/24/24 cyclobenzaprine 10 mg tablet 10 mg PO TID 07/24/24 mirtazapine 7.5 mg tablet 7.5 mg PO QHS #30 tabs 10/10/24 venlafaxine 75 mg capsule,extended release 24 hr 75 mg PO QAM #30 caps 12/15/24 albuterol sulfate 90 mcg/actuation aerosol inhaler 2 puff inhalation Q4H PRN SOB, wheezing 01/25/25 sennosides 8.6 mg-docusate sodium 50 mg tablet (Stimulant Laxative Plus) 2 tab PO BID PRN constipation #0 tabs 01/27/25 Physical Exam Narrative Seen and examined. Patient stated she has chronic iron deficiency anemia and gets iron infusion after she had Dillon-en-Y bypass surgery. She cannot absorb oral iron. She also takes Benadryl half an hour before IV iron infusion because she has allergy and gets itching. No active or visible external GI bleed Physical exam General: Alert, Oriented x3, Cooperative. BMI 24.6 kg/m? HEENT: Atraumatic, PERRLA, EOMI, Normocephalic. Oral: No Gingival or Mucosal Lesions/ Ulcerations Neck: Supple, No JVD, Negative Carotid Bruits Chest wall/Lungs: Air entry diminished in bilateral lung bases. No crepitation/rhonchi Cardiovascular: Regular rate and rhythm, Normal S1,S2, No M/G/R Abdomen: Bowel Sounds Present, Soft, Non Tender, Non-Distended : No dysuria. No renal angle tenderness. No suprapubic tenderness. Extremities: No edema, Capillary Refill Less than 3 Seconds Skin: No rashes, No breakdown. Heart phlebotomy. Midline ordered Musculoskeletal: Mild left lower rib tenderness. No Tenderness to Palpation of Joints or Extremities Neurological: Cranial nerves II-XII grossly intact, DTR 2+/4. No acute focal neurological deficit. Psych/Mental Status: Normal Affect, Appropriate. Weight / BMI Weight Weight: 152 lb 6 oz Body Mass Index (BMI) 24.5 ABG / Lab / Microbiology Data 01/26/25 05:41 01/26/25 05:41 Microbiology: Microbiology 01/25/25 16:10 Stool Stool Occult Blood (YULISSA) - Final D/C Instructions Discharge Diet: No restrictions Weight Bearing Status: Weight bearing as tolerated Call your doctor if you observe: Fever of 101 or Higher, Coldness, Increased Pain, Numbness or Tingling, Change in Color, Inability to urinate, Inability to have a bowel movement, Shortness of breath, Dizziness, Fainting spells, Swelling in the ankles, Chest pain, Prolonged hiccupping, Increased palpitations (irregular heartbeat) and Calf discomfort DC O2, CPAP, BIPAP Needs Home O2 Discharge instructions: No When: IN 2 WEEKS Meaningful Use Info Meaningful Use Meaningful Use Diagnoses (Choose all that apply): None applicable Ischemic Stroke Statin Dosing Therapy Reference: STATIN DOSE THERAPY REFERENCE: * Patients > 75 years receive moderate or high dose statin therapy. * Patients 75 years or YOUNGER should receive HIGH intensity statin dose unless contraindicated. You will be required to document reason for non-treatment if statin daily dose does not meet guidelines. HIGH DOSE STATIN THERAPY DAILY Atorvastatin > than or = to 40 mg Rosuvastatin > than or = to 20 mg Amlodipine + Atorvastatin > than or = to 2.5/40 mg Ezetimibe + Simvastatin 10/80 mg Simvastatin 80mg Discharge Plan Admission Admit Date/Time: 01/26/25 17:16 Primary Reason for Your Visit: Functional/musculoskeletal left upper abdominal Attending Provider: Lam Espinal Primary Care Provider: Care Physician,No Primary Consulting Providers: Virginie Aguillon Discharge Orders/Prescriptions Prescriptions: New sennosides-docusate sodium [Stimulant Laxative Plus] 8.6-50 mg Tablet 2 tab PO BID PRN (Reason: constipation) Qty: 0 0RF Continued (DME) syringe with needle 1 mL 25 gauge x 1 syringe See Rx Instructions .ROUTE .MEDSUPPLY Qty: 100 Rx Instructions: As directed cholecalciferol (vitamin D3) 25 mcg (1,000 unit) capsule 25 mcg PO DAILY mirtazapine 7.5 mg tablet 7.5 mg PO QHS Qty: 30 1RF venlafaxine 75 mg capsule,extended release 24hr 75 mg PO QAM Qty: 30 1RF cyclobenzaprine 10 mg tablet 10 mg PO TID Patient Comments: leg spasm triamterene-hydrochlorothiazid 37.5-25 mg capsule 1 cap PO DAILY 30 Days Qty: 90 1RF albuterol sulfate 90 mcg/actuation HFA aerosol inhaler 2 puff INHALATION Q4H PRN (Reason: SOB, wheezing) Patient Comments: BREATHING (DME) rollator walker with seat See Rx Instructions .Route .MEDSUPPLY Qty: 1 0RF Rx Instructions: As directed cyanocobalamin (vitamin B-12) 1,000 mcg/mL solution 1,000 mcg IM Q30D Qty: 1 2RF Patient Comments: TOOK THIS MONTH, NOT SURE WHEN valacyclovir [Valtrex] 500 mg tablet 500 mg PO DAILY Qty: 90 1RF Referrals / Follow Up: Trell Tilley MD [Med Staff - Active Staff] - Within 1 Week (For IV iron infusion. 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 Unable to absorb oral iron) Care Physician,No Primary [Primary Care Provider] - Azalea Woods [employer] [Med Staff - Adv Practice Prof] - Within 1 Week (Iron IV infusion dependence after gastric bypass surgery. Could not absorb oral iron) Disposition Disposition (needs filled in before D/C Order can be placed): Home, Self Care Charges/Coding Visit Charges Inpatient E&M: 96520 Disch Hosp >30min
[2025-01-27 13:28] VITALS: BP 143/82; PULSE 92; RESP 14; TEMP 36.9; O2SAT 96
== END 2025-01-27 14:48 | disposition home or self-care (01) | DRG 392 ==
LOC: ED 18:11 → MS3 21:31
PROVIDERS: Admitting Provider Internal Medicine; Emergency Provider Emergency Medicine; Referring Provider Emergency Medicine; Visit Provider Internal Medicine
DX: R10.12 Left upper quadrant pain (principal); K91.2 Postsurgical malabsorption, not elsewhere classified; F32.A Depression, unspecified; D50.8 Other iron deficiency anemias; F10.10 Alcohol abuse, uncomplicated; E78.5 Hyperlipidemia, unspecified; N18.30 Chronic kidney disease, stage 3 unspecified; I12.9 Hypertensive chronic kidney disease with stage 1 through stage 4 chronic kidney disease, or unspecified chronic kidney disease; K76.0 Fatty (change of) liver, not elsewhere classified; I77.810 Thoracic aortic ectasia; K31.84 Gastroparesis; F41.9 Anxiety disorder, unspecified; K30 Functional dyspepsia; Y90.9 Presence of alcohol in blood, level not specified; G89.29 Other chronic pain; F43.10 Post-traumatic stress disorder, unspecified; Z90.49 Acquired absence of other specified parts of digestive tract; Z98.84 Bariatric surgery status; Z79.899 Other long term (current) drug therapy; Z86.73 Personal history of transient ischemic attack (TIA), and cerebral infarction without residual deficits; Z87.891 Personal history of nicotine dependence
CPT/HCPCS: 36415; 71046; 71275; 74177; 78264; 80048; 80053; 81001; 82274; 82728; 83540; 83550; 83690; 83880; 84443; 85025; 85045; 93005; 94668; 97161; 97165; 97802; 99285; A9541; Q9967; A4216; J2405; J2916

== ENCOUNTER → 2025-03-05 | Outpatient (CLI) | payer MEDICARE, MEDICAID, SELFPAY ==
[2025-03-05 11:25] LABS: Hematocrit 35.8 % (37-47); Hemoglobin 11.1 g/dL (12.0-15.0); Immature Granulocytes Count 0.010 X10^3/uL (0.0-0.0); Mean Corp Hgb Conc 31.0 g/dL (32-36); Mean Corpuscular Volume 74.1 fL (81-99); Mean Platelet Vol. 8.9 fl (6.2-12.0); NRBC Flagged by Analyzer 0 % (0-5); POSITIVE MORPHOLOGY YES; Platelet Count 225 K/mm3 (150-450); RBC Distribution Width CV 28.5 % (11.6-14.6); RBC Distribution Width SD 72.2 fl (35.1-43.9); Red Blood Count 4.83 M/mm3 (4.2-5.4); White Blood Count 4.0 K/mm3 (4.4-11.0)
[2025-03-05 11:37] LABS: Differential Indicated SCAN CRITERIA MET
[2025-03-05 12:09] LABS: AST(SGOT) 26 U/L (<=31); Alanine Aminotransfer ALT/SGPT 12 U/L (<=34); Albumin, Serum 4.2 g/dL (3.4-4.8); Alkaline Phosphatase 98 U/L (35-104); Anion Gap 12 (5-15); BUN 11 mg/dL (4-19); BUN/Creat Ratio 12.9 RATIO (10-20); Calcium,Total 9.6 mg/dL (7.6-11.0); Carbon Dioxide 21.1 mmol/L (21.0-32.0); Chloride 107 mmol/L (98-108); Ferritin 36 ng/mL (22-378); Globulin 2.7 g/dL (2.2-4.2); Glucose 108 mg/dL (70-99); Potassium 4.3 mmol/L (3.3-5.1)
[2025-03-05 12:20] LABS: Anisocytosis 2+; Target Cells 2+
[2025-03-05 12:37] LABS: Iron 42 ug/dL (50-170); Iron Binding Capacity,Total 382 ug/dL (250-450); Iron Binding Capacity,Unsat 340 ug/dL (228-428)
[2025-03-05 13:55] LABS: Vitamin B12 442 pg/mL (180-914)
== END | disposition home or self-care (01) ==
PROVIDERS: Internal Medicine Hematology & Oncology; Referring Provider Nurse Practitioner Family; Visit Provider Nurse Practitioner Family
DX: D50.0 Iron deficiency anemia secondary to blood loss (chronic) (principal)
CPT/HCPCS: 36415; 80053; 82607; 82728; 83540; 83550; 85025

== ENCOUNTER → 2025-04-26 | Outpatient (CLI) | payer MEDICARE, MEDICAID, SELFPAY ==
--- NOTE | 2025-04-26 06:33 | ECHOD_ITS ---
Reason For Study Reason For Study: Dyspnea/SOB Procedure This was a 2D Doppler, Color Flow transthoracic echocardiogram. Exam performed in department. Left Ventricle Normal LV size. The left ventricular ejection fraction is 65 %. Stage 1 diastolic dysfunction. No regional wall motion abnormalities noted. Right Ventricle Normal RV size. Normal systolic function. Atria Normal left atrium. Normal right atrium. Mitral Valve Normal mitral valve. Trivial eccentric mitral valve insufficiency. Tricuspid Valve Normal tricuspid valve. Mild (1+) tricuspid valve insufficiency. Pulmonary artery systolic pressure is 20 mmHg. Aortic Valve Trisinus/trileaflet aortic valve. Mild (1+) aortic valve insufficiency. Pulmonic Valve Normal pulmonic valve. Great Vessels Normal aortic root. The pulmonary artery is normal size. Inferior vena cava collapse with respiration. Pericardium/Pleural No pericardial effusion. MMode/2D Measurements & Calculations LVIDd: 4.1 cm IVSd: 0.93 cm Ao root diam: 3.7 cm LVIDs: 2.5 cm LVPWd: 0.93 cm RVDd: 2.9 cm FS: 37.9 % LAV(MOD-bp): 50.0 ml LVAd ap4: 24.2 cm2 SV(MOD-sp4): 42.3 ml LAV(MOD-bp) Indexed: 27.9 ml/m2 LVLd ap4: 7.1 cm SI(MOD-sp4): 23.6 ml/m2 LAV(MOD-sp2): 47.4 ml EDV(MOD-sp4): 66.5 ml LAV(MOD-sp4): 50.1 ml EDV(sp4-el): 70.0 ml LVAs ap4: 13.0 cm2 LVLs ap4: 5.9 cm ESV(MOD-sp4): 24.3 ml ESV(sp4-el): 24.3 ml EF(MOD-sp4): 63.5 % EF(sp4-el): 65.2 % SV(sp4-el): 45.7 ml LA A4 area: 18.0 cm2 LA dimension(2D): 3.0 cm RA A4 area: 10.7 cm2 TAPSE: 1.9 cm Time Measurements MV dec time: 0.26 sec Doppler Measurements & Calculations MV E max ankur: 60.7 cm/sec Lat Peak E' Ankur: 7.4 cm/sec Med Peak E' Ankur: 7.9 cm/sec MV A max ankur: 88.4 cm/sec E/E' lat: 8.2 E/E' med: 7.7 MV E/A: 0.69 MV V2 max: 105.8 cm/sec MV P1/2t max ankur: 74.7 cm/sec Ao V2 max: 203.9 cm/sec MV max P.5 mmHg MV P1/2t: 85.0 msec Ao max P.6 mmHg MV V2 mean: 51.5 cm/sec Ao V2 mean: 123.6 cm/sec MV mean P.3 mmHg MV dec slope: 257.6 cm/sec2 Ao mean P.4 mmHg MV V2 VTI: 22.2 cm MVA(P1/2t): 2.6 cm2 Ao V2 VTI: 39.6 cm AV (velocity ratio): 0.77 AI max ankur: 532.9 cm/sec LV V1 max: 158.3 cm/sec MR max ankur: 519.6 cm/sec AI max P.7 mmHg LV V1 max P.0 mmHg MR max P.0 mmHg LV V1 mean P.3 mmHg AI dec slope: 359.9 cm/sec2 LV V1 mean: 108.9 cm/sec AI P1/2t: 433.7 msec LV V1 VTI: 30.4 cm PA V2 max: 103.9 cm/sec TR max ankur: 207.3 cm/sec TR max P.3 mmHg ECHO/Echo Complete Interpretation Summary The left ventricular ejection fraction is 65 %. Normal LV size. Stage 1 diastolic dysfunction. Trivial eccentric mitral valve insufficiency. Mild (1+) tricuspid valve insufficiency. Mild (1+) aortic valve insufficiency. Ordering Physician: Angie Sandoval Referring Physician: Ta Montoya Performed By: Juan Carlos Cramer RCS
--- OUTSIDE RECORDS SUMMARY | 2025-04-26 06:36 | XMS RPT_ITS | CCD ---
Author Organization [facility] ion [facility] Care Team Providers Care Storeroom Attendant Name Role Phone Prateek Lockhart Unavailable Care Physician, No Primary Primary Care Provider Unavailable Dr. Albert Carbone Emergency Provider [phone] Jeniffer Campos Admit Provider [phone] Jeniffer Campos Other Provider [phone] Drew Solis Attending Provider Unavailable Dr. Drew Solis Other Provider Unavailable Dr. Margarette Christensen Attending Provider Dr. Virginie Aguillon Attending Provider [phone] Virginie Aguillon Other Provider Prateek Lockhart Unavailable Hilton Johnson MD Primary Care Provider [phone] Prateek Galarza Unavailable PROVIDER, UNKNOWN Admitting Unavailable PROVIDER, UNKNOWN Attending Unavailable BUNNY YO MD Attending Unavailable BUNNY YO MD Primary Care Unavailable Unavailable Primary Care Provider UnavailJEANA Jimenez Primary Care Unavailable Tristan, Stoney Chi Primary Care Unavailable Duglas Ariza Attending Unavailable Gila Reeves Referring Unavailable Care Physician, No Primary Primary Care Unava ilable Virginie Aguillon Consulting Unavailable Lam Espinal Attending Unavailable Virginie Aguillon Admitting Unavailable Care Physician, No Primary Primary Care Unava ilable Angie Judd Consulting Unavail able Lindsay, Ta Referring Unavailable Lindsay, [place] Attending Unavailable Virginie Aguillon Admitting Unavailable Care Physician, No Primary Primary Care Unava ilable Gila Reeves Referring Unavailable Lam Espinal Attending Unavailable Virginie Aguillon Consulting Unavailable Lam Espinal Consulting Unavailable Tristan, Stoney Chi Primary Care Unavailable Machelle Muñoz Attending Unavailable Care Physician, No Primary Primary Care Unava ilable Care Physician, No Primary Referring Unava ilable Jose Rachel Attending Unavailable Tristan, Stoney Chi Referring Unavailable Care Physician, No Primary Primary Care Unava ilable Angie Judd Attending Unavail able Tristan, Stoney Chi Primary Care Unavailable MuñozMachelle Attending Unavailable Tristan, Stoney Chi Primary Care Unavailable Tristan, Stoney Chi Referring Unavailable Ta Montoya Attending Unavailable Tristan, Stoney Chi Primary Care Unavailable Machelle Muñoz Attending Unavailable Gila Reeves Referring Unavailable Care Physician, No Primary Primary Care Unava ilable Virginie Aguillon Attending Unavailable Care Physician, No Primary Primary Care Unava ilable Peggy PIPE COVERING MOLDER, [place] Referring Unavailable Peggy PIPE COVERING MOLDER, [place] Attending Unavailable Tristan, Stoney Chi Attending Unavailable Tristan, Stoney Chi Primary Care Unavailable Tristan, Stoney Chi Attending Unavailable Tristan, Stoney Chi Primary Care Unavailable Allergies Allergy Classification Reported Allergen(s) Allergy Type Date of Onset Reaction(s) Facility (19 sources) NSAIDs; Translations: [NSAIDS] Propensity to adverse reactions to drug 4 Nausea [facility] Work Phone: (8 sources) Buprenorphine; Translations: [buprenorphine] Drug Allergy 2 Rash [facility] (7 sources) Nonsteroidal Anti-inflammatory Compounds Propensity to adverse reactions 2 Nausea [facility] (1 source) Iron and iron compound; Translations: [iron containing compounds] Drug allergy [facility] (1 source) NSAIDs; Translations: [NSAIDS (NON-STEROIDAL ANTI-INFLAMMATORY DRUG)] Propensity to adverse reactions to drug (disorder) 4 [facility] Repository (1 source) Buprenorphine Drug Allergy 5 [facility] (1 source) NSAIDs Drug allergy (disorder) 5 [facility] Medications Current Medications Medication Drug Class(es) [...] 2 PUFF INHALATION EVERY 4 HOURS NEEDED 1 February 04, 2016 12:00am October 11, 2020 4:13pm Start: 01-12-2014 take 2 puff(s) by in halation every four hours as needed for wheezing albuterol (PROAIR HFA) inhaler 90 mcg/inh Indications: COPD (chronic obstructive pulmonary disease) (HCC) Inhale 2 Puffs every 4 hours as [...] week vitamin D2 ergocalciferol (DRISDOL) 1.25 MG (66484 UT) capsule Take 1 Capsule by mouth once weekly. 12 Capsule 3 03/09/2023 03/08/2024 Active Start: 11-26-2021 take 84401 [IU] by m outh every other week Ergocalciferol (Vitamin D2) Active 21979 UNIT PO every 2 weeks November 26, 2021 4:30pm Start: 11-26-2021 End: 11-26-2021 take 96875 [IU] by mouth every week Ergocalciferol (Vitamin D2) Discontinued 55334 UNIT PO EVERY WEEK 12 November 26, 2021 2:13pm November 26, 2021 4:30pm Start: 06-06-2020 End: 11-26-2021 take 45920 [IU] by mouth two times weekly Ergocalciferol (Vitamin D2) Discontinued 53207 UNIT PO TWICE A WEEK 60 90 June 10, 2021 6:28pm November 26, 2021 2:13pm Start: 07-12-2019 End: 06-06-2020 take 58295 [IU] by mouth every week Ergocalciferol (Vitamin D2) Discontinued 80363 UNIT PO Q7D July 12, 2019 1:00am [...] Triamterene-Hydrochlorothiazid Discontin ued 1 CAP PO DAILY 90 March 03, 2021 8:32am February 16, 2023 [...] r with seat Active 0 .Route .MEDSUPPLY 1 October 09, 2020 12:00am As directed sucralfate [...] Active 500 MG PO DAILY 90 October 28 2022 2:54pm vitamin B12 (20 sources) Vitamin B12 [...] (Vitamin B-12) Discontinued 1000 MCG IM Q30D September 25, 2020 11:54am December 20, 2020 [...] by mouth every six hours Hydrocodone-Acetami nophen (Tempe) 7.5-325 mg tablet Discontinued 1 TABLET PO EVERY 6 HOURS June 05, 2020 9:34am August 01, 2020 3:19pm Dr Ortega Start: 05-14-2018 [place] 325- 7.5 mg oral tablet 325-7.5, Oral, [...] Hcl Discontinued 300 MG PO EVERY MORNING 60 August 29, 2021 3:39pm February 16, 2023 10:50am Start: 12-04-2020 End: 02-21-2021 take 300 mg by mouth once daily in the morning Bupropion Hcl Discontinued 300 MG PO EVERY MORNING 60 December 04, 2020 9:45am February 21, 2021 [...] completed) Start: 01-15-2022 take 1 capsule by mo [facility] once daily 30 minutes before breakfast, then [...] milena (7 sources) Start: 10-16-2020 End: 02-16-2023 medical milena Discontinu ed PO October 16, 2020 12:00am February 16, 2023 10:51am Start: 10-16-2020 medical adrian myrtle Active PO October 16, 2020 12:00am Start: 10-16-2020 medical adrian myrtle Active PO October 15, 2020 11:00pm methocarbamol [...] 1 tablet by mouth once Methylprednisolone (Medrol (Dey)) 4 mg tablets,dose pack Discontinued 0 PO [...] September 25, 2020 12:44pm polyethylene glycol 3350 77937 mg powder for oral solution (1 source) [...] Date Documented Da te Episodic/Chronic Abdominal pain (5 sources) Generalized abdominal pain; Translations: [Generalized abdominal pain] Onset: 5 03-09-2023 Episodic Anxiety disorders (20 sources) Anxiety state; Translations: [...] unspecified] 02-16-2023 Episodic Deficiency and other anemia (1 source) Iron deficiency anemia secondary to blood loss (chronic); Translations: [Iron deficiency anemia secondary to blood loss (chronic)] Onset: 5 Chronic Deficiency and other anemia (20 sources) Iron [...] without hemorrhage or perforation] Onset: 3 Chronic Heart valve disorders (1 source) Cardiac murmur, unspecified; Translations: [Cardiac murmur, unspecified] Onset: 5 Episodic Intracranial injury (6 sources) Concussion injury of [...] vomiting, unspecified] 07-01-2021 Episodic Nonspecific chest pain (17 sources) Chest wall pain; Translations: [Other chest pain] Onset: 5 07-31-2020 Episodic Nutritional deficiencies (20 sources) Iron deficiency; Translations: [Iron deficiency] Onset: 3 03-20-2021 Episodic Osteoarthritis (20 sources) Localized, primary osteoarthritis [...] Dyspnea; Translations: [Dyspnea, unspecified] 07-15-2022 Episodic Other lower respiratory disease (2 sources) Other forms of dyspnea; Translations: [Other forms of dyspnea] Onset: Episodic Other nervous system disorders (7 sources) [...] mass index (BMI) 26.0-26.9, adult] 03-09-2023 Episodic Other screening for suspected conditions (not mental disorders or infectious disease) (2 sources) Patient encounter status; Translations: [Encounter for screening for lipoid disorders] 03-09-2023 Episodic Residual codes; unclassified (16 sources) [...] radiculopathy, cervical region] Onset: 1 05-27-2001 Chronic Unclassified (1 source) Breast feeding (infant) (observable entity) 03-24-2018 Comment on above: System added from do cumentation. Breast feeding Status documented as Yes on Admission Unclassified (1 source) Cough, unspecified; Translations: [Cough, unspecified] Onset: 5 Past or Other Problems Problem Classification Problem Date Documented Da te Episodic/Chronic Complication of device; implant or graft (7 [...] unspecified; Translations: [Anemia, unspecified] Onset: 5 Episodic Diabetes mellitus without complication (19 sources) Prediabetes; Translations: [Prediabetes] Onset: 3 06-15-2019 Episodic Gastrointestinal hemorrhage (20 sources) Gastrointestinal hemorrhage; Translations: [Gastrointestinal hemorrhage, unspecified] Onset: 9 Episodic Nonmalignant breast conditions (17 sources) Increased ; Translations: [Galactorrhea not associated with childbirth] Onset: 9 06-15-2019 Episodic Other female genital disorders (1 source) [...] region and thigh Onset: 4 01-12-2014 Episodic Residual codes; unclassified (16 sources) Memory impairment; Translations: [Other amnesia] Onset: 9 08-27-2008 Episodic Residual codes; unclassified (1 source) Memory loss Onset: 9 08-27-2008 Episodic Spondylosis; intervertebral disc disorders; other back problems (17 sources) Chronic low back pain; Translations: [Chronic lower back pain] Onset: 4 11-13-2013 Episodic Syncope (16 sources) Syncope and collapse; Translations: [Syncope and collapse] Onset: 5 Episodic Unclassified (7 sources) h/o blood transfusions 03-02-2022 Unclassified (7 sources) h/o iron transfusions 03-02-2022 Results Test Name Value Interpretation Reference Range Facility Cardiology Visit Reporton Cardiology Visit Report [facility] [address] [place], [place] [address] OFFICE VISIT Date of Service: 03/27/25 MR#: [id number] Acct: [id number] Name: MORENA PATTON Rep #: [id number] : 1960 Provider: MANUELA Tsang Age/Sex: 65/F [place] [facility] [place] Status: Signed HPI HPI History of Present Illness Details: Morena Patton is a 65-year-old female that established with us in August 2024 for chest heaviness not associated with activity but occasional shortness of breath. She has also had some dizziness. She does have a history of obesity status post gastric bypass surgery, hypertension. It was recommended that she undergo a stress test and an echocardiogram however it does not appear that this was done. She is still having chest heaviness and SOB. She does have dizziness. She has not had any syncope. She does sometimes have palpitations. This can be related to her anxiety. Intake Vital Signs 08/30/24 09:35 03/05/25 11:53 03/27/25 11:23 Height 5 ft 6 in 5 ft 6 in 5 ft 6 in Weight: 155 lb BMI 25.0 BP 130/85 H Blood Pressure Location Lt brachial Position Sitting Respiration 18 Pulse 87 Pulse Source Monitor Intake Visit Reasons: 7 M Assistant Corporation Counsel Required: No Accompanied by: Daughter In Law Is patient in pain?: No Allergies buprenorphine (From [facility]) Allergy (Verified 03/27/25 11:15) Rash NSAIDS (Non-Steroidal Anti-Inflamma Adverse Reaction (Verified 03/27/25 11:15) Nausea Medications ???Medication ???Instructions ???Recorded ???Confirmed ???Type rollator walker with seat #1 ea 10/09/20 10/10/24 Rx syringe with needle 1 mL 25 gauge #100 ea 03/05/21 10/10/24 History x 1 valacyclovir 500 mg tablet 500 mg PO DAILY Herpes Flare #90 0 10/28/21 03/27/25 Rx (Valtrex) tabs triamterene 37.5 1 cap PO DAILY 30 days #90 caps 03/27/25 Rx mg-hydrochlorothiazide 25 mg capsule cholecalciferol (vitamin D3) 25 25 mcg PO DAILY 07/24/24 03/27/25 History mcg (1,000 unit) capsule cyclobenzaprine 10 mg tablet 10 mg PO TID 07/24/24 03/27/25 His tory mirtazapine 7.5 mg tablet 7.5 mg PO QHS #30 tabs 10/10/24 Rx venlafaxine 75 mg capsule,extended 75 mg PO QAM #30 caps 12/15/24 0 03/27/25 Rx release 24 hr albuterol sulfate 90 mcg/actuation 2 puff inhalation Q4H PRN SOB, 0 01/25/25 03/27/25 History aerosol inhaler wheezing pantoprazole 40 mg tablet,delayed 40 mg PO BID 03/05/25 03/27/25 Hi story release ferrous gluconate 324 mg (38 mg mg PO 03/27/25 03/27/25 History iron) tablet Ejection fraction %: 65 Have you fallen in the past year?: No PFSH Medical History Iron deficiency anemia due to chronic blood loss Abdominal pain Depression Anxiety Smoker Migraines TIA (transient ischemic attack) Chronic kidney disease (CKD), stage III (moderate) Vitamin D deficiency Hyperlipidemia GERD (gastroesophageal reflux disease) PTSD (post-traumatic stress disorder) Tobacco use ETOH abuse Iron (Fe) deficiency anemia History of GI bleed Chest pain Iron deficiency Insomnia Anxiety and depression Obesity (BMI 30-39.9) TMJ (temporomandibular joint syndrome) Chronic pain Hypertension ADHD (attention deficit hyperactivity disorder) Postsurgical malabsorption, not elsewhere classified B12 deficiency Anemia PUD (peptic ulcer disease) Surgical History Status post gastric bypass for obesity Hx of bariatric surgery S/P H/O gastric [...] home: Yes additional social history: single ROS Const Const: Positive for fatigue and weakness Eyes Eyes: Negative for change in vision ENT ENT: Positive for dizziness and balance problems Cardio Chest Pain: No Palpitations: Yes feels like its: fast Edema: None Resp Respiratory: Positive for SOB with activity (more content not included)... Normal [facility] CBC W/Diff, Automatedon 08- Anisocytosis Ql (Bld) 2+ Normal [facility] Comment on above: Performed By: #### L 100.0100, L500.4050, L503.6550, L503.6030 #### [facility] [address] [place], [address] PLT EST A Normal ADEQ [facility] Comment on above: Performed By: #### L 100.0100, L500.4050, L503.6550, L503.6030 #### [facility] [address] [place], [address] TARGET CELLS 2+ Normal [facility] Comment on above: Performed By: #### L 100.0100, L500.4050, L503.6550, L503.6030 #### [facility] [address] [place], [address] Comprehensive Metabolic Prof [facility] 03-05-2025 Albumin [Mass/Vol] 4.2 g/dL Normal 3.4-4.8 [facility] Comment on above: Performed By: #### L 100.0100, L500.4050, L503.6550, L503.6030 #### [facility] [address] [place], [address] Albumin/Globulin [Mass ratio] 1.6 {ratio} Normal 0.9-2.4 [facility] Comment on above: Performed By: #### L 100.0100, L500.4050, L503.6550, L503.6030 #### [facility] [address] [place], [address] ALK PHOS 98 U/L Normal 35-104 [facility] Comment on above: Performed By: #### L 100.0100, L500.4050, L503.6550, L503.6030 #### [facility] [address] [place], [address] ALT [Catalytic activity/Vol] 12 U/L Normal <=34 [facility] Comment on above: Performed By: #### L 100.0100, L500.4050, L503.6550, L503.6030 #### [facility] [address] [place], [address] AST [Catalytic activity/Vol] 26 U/L Normal <=31 [facility] Comment on above: Performed By: #### L 100.0100, L500.4050, L503.6550, L503.6030 #### [facility] [address] [place], [address] Bilirubin [Mass/Vol] 0.23 mg/dL Normal 0.00-1.30 [facility] Comment on above: Performed By: #### L 100.0100, L500.4050, L503.6550, L503.6030 #### [facility] [address] [place], [address] BUN/CRE 12.9 RATIO Normal 10-20 [facility] Comment on above: Performed By: #### L 100.0100, L500.4050, L503.6550, L503.6030 #### [facility] [address] [place], [address] Calcium [Mass/Vol] 9.6 mg/dL Normal 7.6-11.0 [facility] Comment on above: Performed By: #### L 100.0100, L500.4050, L503.6550, L503.6030 #### [facility] [address] [place], [address] Chloride [Moles/Vol] 107 mmol/L Normal 98-108 [facility] Comment on above: Performed By: #### L 100.0100, L500.4050, L503.6550, L503.6030 #### [facility] [address] [place], [address] CO2 [Moles/Vol] 21.1 mmol/L Normal 21.0-32.0 [facility] Comment on above: Performed By: #### L 100.0100, L500.4050, L503.6550, L503.6030 #### [facility] [address] [place], [address] Creatinine [Mass/Vol] 0.87 mg/dL Normal 0.70-1.20 [facility] Comment on above: Performed By: #### L 100.0100, L500.4050, L503.6550, L503.6030 #### [facility] [address] [place], [address] GAP 12 Normal 5-15 [facility] Comment on above: Performed By: #### L 100.0100, L500.4050, L503.6550, L503.6030 #### [facility] [address] [place], [address] GFR/1.73 sq M.predicted among non-blacks MDRD (S/P/Bld) [Vol rate/Area] 74 mL/min/{1.73_m2} Normal >60 [facility] Comment on above: Result Comment: mL/m in/1.73m2 CKD-EPI Creatinine Equation (2020) Performed By: #### L 100.0100, L500.4050, L503.6550, L503.6030 #### [facility] [address] [place], [address] Globulin (S) [Mass/Vol] 2.7 g/dL Normal 2.2-4.2 [facility] Comment on above: Performed By: #### L 100.0100, L500.4050, L503.6550, L503.6030 #### [facility] [address] [place], [address] Glucose [Mass/Vol] 108 mg/dL High 70-99 [facility] Comment on above: Performed By: #### L 100.0100, L500.4050, L503.6550, L503.6030 #### [facility] [address] [place], [address] Potassium [Moles/Vol] 4.3 mmol/L Normal 3.3-5.1 [facility] Comment on above: Performed By: #### L 100.0100, L500.4050, L503.6550, L503.6030 #### [facility] [address] [place], [address] Sodium [Moles/Vol] 140 mmol/L Normal 133-145 [facility] Comment on above: Performed By: #### L 100.0100, L500.4050, L503.6550, L503.6030 #### [facility] [address] [place], [address] T PROT 6.9 g/dL Normal 5.9-8.4 [facility] Comment on above: Performed By: #### L 100.0100, L500.4050, L503.6550, L503.6030 #### [facility] [address] [place], [address] Urea nitrogen [Mass/Vol] 11 mg/dL Normal 4-19 [facility] Comment on above: Performed By: #### L 100.0100, L500.4050, L503.6550, L503.6030 #### [facility] [address] [place], [address] Ferritinon 03-05-2025 Ferritin [Mass/Vol] 36 ng/mL Normal 22-378 [facility] Comment on above: Performed By: #### L 503.6005, L500.4050, L100.0100, L300.3900, L300.4310, M200.1000 #### [facility] [address] [place], [address] Iron+Iron Binding Capacityon 03-05-2025 Iron [Mass/Vol] 42 ug/dL Low 50-170 [facility] Comment on above: Performed By: #### L 503.6005, L500.4050, L100.0100, L300.3900, L300.4310, M200.1000 #### [facility] [address] [place], [address] IRON SATURATION 11.0 Low 13-59 [facility] Comment on above: Performed By: #### L 503.6005, L500.4050, L100.0100, L300.3900, L300.4310, M200.1000 #### [facility] [address] [place], [address] TIBC 382 ug/dL Normal 250-450 [facility] Comment on above: Performed By: #### L 503.6005, L500.4050, L100.0100, L300.3900, L300.4310, M200.1000 #### [facility] [address] [place], [address] UIBC 340 ug/dL Normal 228-428 [facility] Comment on above: Performed By: #### L 503.6005, L500.4050, L100.0100, L300.3900, L300.4310, M200.1000 #### [facility] [address] [place], [address] Oncology Visit Reporton Oncology Visit Report [facility] [address] [place] [address] OFFICE VISIT Date of Service: 03/05/25 1152 MR#: [id number] Acct: [id number] Name: MORENA PATTON Rep #: [id number] : 1960 From: Jose Rachel MD Age/Sex: 65/F [place] [facility] [place] Status: Signed HPI Subjective Date of Service 03/05/25 Chief Complaint Anemia History of Present Illness 65-year-old female status post gastric bypass in 1999, was diagnosed with iron deficiency anemia and has had recurrent GI bleeds. Her anemia responds to IV iron but tends to be recurrent due to GI bleeding. She used to see Dr. Tilley until March 2025 when she requested transfer of her hematology care to myself. [facility] Medical History (Updated 03/05/25 @ 12:[address] Jose Rachel MD) Iron deficiency anemia due to chronic blood loss Abdominal pain Depression Anxiety Smoker Migraines TIA (transient ischemic attack) Chronic kidney disease (CKD), stage III (moderate) Vitamin D deficiency Hyperlipidemia GERD (gastroesophageal reflux disease) PTSD (post-traumatic stress disorder) Tobacco use ETOH abuse Iron (Fe) deficiency anemia History of GI bleed Chest pain Iron deficiency Insomnia Anxiety and depression Obesity (BMI 30-39.9) TMJ (temporomandibular joint syndrome) Chronic pain Hypertension ADHD (attention deficit hyperactivity disorder) Postsurgical malabsorption, not elsewhere classified B12 deficiency Anemia PUD (peptic ulcer disease) Surgical History (Updated 03/05/25 @ 12:[address] Jose Rachel MD) Status post gastric bypass for obesity Hx of bariatric surgery S/P H/O gastric [...] 20 + years ago per patient. ) ROS Constitutional Constitutional: Reports systems reviewed and no addt'l complaints, except as documented and fatigue; Denies weight loss Eyes Eyes: Reports systems reviewed and no addt'l complaints, except as documented ENT HEENT: Reports systems reviewed and no addt'l complaints, except as documented; Denies bleeding gums or epistaxis Cardiovascular Cardiovascular: Reports systems reviewed and no addt'l complaints, except as documented; Denies chest pain or edema Respiratory/Chest Respiratory/Chest: Reports systems reviewed and no addt'l complaints, except as documented; Denies dyspnea Gastrointestinal Gastrointestinal: Reports systems reviewed and no addt'l complaints, except as documented, melena and other Details: Last episode of melena was noted in December 2024 ; Denies change in bowel habits Genitourinary Genitourinary: Reports systems reviewed and no addt'l complaints, except as documented; Denies hematuria Musculoskeletal Musculoskeletal: Reports systems reviewed and no addt'l complaints, except as documented Integumentary Integumentary: Reports systems reviewed and no addt'l complaints, except as documented; Denies bleeding lesions Neurologic Neurologic: Reports systems reviewed and no addt'l complaints, except as documented Psychiatric Psychiatric: Reports systems reviewed and no addt'l complaints, except as documented Endocrine Endocrinology: Reports systems reviewed and no addt'l complaints, except as documented Intake Vital Signs 01/26/25 12:27 03/05/25 11:53 Height 5 ft 6 in 5 ft 6 in Weight: 70.307 kg BMI 25.0 BP 148/95 H Blood Pressure Location Rt brachial Position Sitting Respiration 18 Pulse 79 Pulse Source Monitor Temp 97.7 F L Temperature Source Temporal Artery Pulse Oximetry (%) 100 Oxygen Delivery Method room air Intake Assistant Corporation Counsel Required: No Accompanied by: Grandson Is patient in pain?: Yes (headache) Pain scale (1-10): 5 Allergies buprenorphine (From [facility]) Allergy (Verified 03/05/25 11:55) Rash NSAIDS (Non-Steroidal Anti-Inflamma Adverse Reaction (Verified 03/05/25 11:5 (more content not included)... Normal [facility] Vitamin B12on 03-05-2025 Cobalamin (Vitamin B12) [Mass/Vol] 442 pg/mL Normal 180-914 [facility] Comment on above: Order Comment: ADD O N Performed By: #### L 503.0106 #### [facility] [address] [place], [address] Discharge Instructionon 01-01 Discharge Instruction [facility] Medical Records Department [address] [place] [address] Instructions for Home/Discharge Instructions 01/27/25 0943 MR#: [id number] Acct: [id number] Name: MORENA PATTON Rep #: [id number] : 1960 64 From: Lam Espinal MD PCP: Care Physician,No Primary Status:ADM IN Discharge Instructions Diet Discharge Diet: No restrictions DC O2, CPAP, BIPAP needs Home O2 Discharge instructions: No Dressing / Incision Discharge Activity: Return to Normal Activity Weight Bearing Status: Weight bearing as tolerated Dressing / Incision Call your doctor if you observe: Fever of 101 or Higher, Coldness, Increased Pain, Numbness or Tingling, Change in Color, Inability to urinate, Inability to have a bowel movement, Shortness of breath, Dizziness, Fainting spells, Swelling in the ankles, Chest pain, Prolonged hiccupping, Increased palpitations (irregular heartbeat) and Calf discomfort Follow Up Care When: IN 2 WEEKS Test Results: Test results from this visit will be discussed in further detail at your follow-up appointment, if applicable. Discharge Plan Admission Admit Date/Time: 01/26/25 17:16 Attending Provider: Lam Espinal Primary Care Provider: Care Physician,No Primary Consulting Providers: Virginie Aguillon Discharge Orders/Prescriptions Prescriptions: New sennosides-docusate sodium [Stimulant Laxative Plus] 8.6-50 mg Tablet 2 tab PO BID PRN (Reason: constipation) Qty: 0 0RF Continued (DME) syringe with needle 1 mL 25 gauge x 1 syringe See Rx Instructions .ROUTE .MEDSUPPLY Qty: 100 Rx Instructions: As directed cholecalciferol (vitamin D3) 25 mcg (1,000 unit) capsule 25 mcg PO DAILY mirtazapine 7.5 mg tablet 7.5 mg PO QHS Qty: 30 1RF venlafaxine 75 mg capsule,extended release 24hr 75 mg PO QAM Qty: 30 1RF cyclobenzaprine 10 mg tablet 10 mg PO TID Patient Comments: leg spasm triamterene-hydrochlorothi azid 37.5-25 mg capsule 1 cap PO DAILY 30 Days Qty: 90 1RF albuterol sulfate 90 mcg/actuation HFA aerosol inhaler 2 puff INHALATION Q4H PRN (Reason: SOB, wheezing) Patient Comments: BREATHING (DME) rollator walker with seat See Rx Instructions .Route .MEDSUPPLY Qty: 1 0RF Rx Instructions: As directed cyanocobalamin (vitamin B-12) 1,000 mcg/mL solution 1,000 mcg IM Q30D Qty: 1 2RF Patient Comments: TOOK THIS MONTH, NOT SURE WHEN valacyclovir [Valtrex] 500 mg tablet 500 mg PO DAILY Qty: 90 1RF Referrals / Follow Up: Trell Tilley MD [Med Staff - Active Staff] - Within 1 Week (For IV iron infusion. 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 Could not absorb oral iron) Disposition Disposition (needs filled in before D/C Order can be placed): Home, Self Care 01/27/25 1151 Lam Espinal MD CC: Dr. Virginie Aguillon MD; No Primary Care Physician Signed Normal [facility] Basic Metabolic Profile (BMP )on 01-26-2025 BUN/CRE 13.3 RATIO Normal 10-20 [facility] Comment on above: Performed By: #### L 503.6005, L500.4050, L100.0100, L300.3900, L300.4310, M200.1000 #### [facility] [address] [place], [address] Calcium [Mass/Vol] 9.0 mg/dL Normal 7.6-11.0 [facility] Comment on above: Performed By: #### L 503.6005, L500.4050, L100.0100, L300.3900, L300.4310, M200.1000 #### [facility] [address] [place], [address] Chloride [Moles/Vol] 107 mmol/L Normal 98-108 [facility] Comment on above: Performed By: #### L 503.6005, L500.4050, L100.0100, L300.3900, L300.4310, M200.1000 #### [facility] [address] [place], [address] CO2 [Moles/Vol] 18.7 mmol/L Low 21.0-32.0 [facility] Comment on above: Performed By: #### L 503.6005, L500.4050, L100.0100, L300.3900, L300.4310, M200.1000 #### [facility] [address] [place], [address] Creatinine [Mass/Vol] 0.92 mg/dL Normal 0.70-1.20 [facility] Comment on above: Performed By: #### L 503.6005, L500.4050, L100.0100, L300.3900, L300.4310, M200.1000 #### [facility] [address] [place], [address] ECRCL 57.83 ml/min Normal 50-250 [facility] Comment on above: Performed By: #### L 503.6005, L500.4050, L100.0100, L300.3900, L300.4310, M200.1000 #### [facility] [address] [place], [address] GAP 11 Normal 5-15 [facility] Comment on above: Performed By: #### L 503.6005, L500.4050, L100.0100, L300.3900, L300.4310, M200.1000 #### [facility] [address] [place], [address] GFR/1.73 sq M.predicted among non-blacks MDRD (S/P/Bld) [Vol rate/Area] 70 mL/min/{1.73_m2} Normal >60 [facility] Comment on above: Result Comment: mL/m in/1.73m2 CKD-EPI Creatinine Equation (2020) Performed By: #### L 503.6005, L500.4050, L100.0100, L300.3900, L300.4310, M200.1000 #### [facility] [address] [place], [address] Glucose [Mass/Vol] 90 mg/dL Normal 70-99 [facility] Comment on above: Performed By: #### L 503.6005, L500.4050, L100.0100, L300.3900, L300.4310, M200.1000 #### [facility] [address] [place], [address] Potassium [Moles/Vol] 3.8 mmol/L Normal 3.3-5.1 [facility] Comment on above: Performed By: #### L 503.6005, L500.4050, L100.0100, L300.3900, L300.4310, M200.1000 #### [facility] [address] [place], [address] Sodium [Moles/Vol] 136 mmol/L Normal 133-145 [facility] Comment on above: Performed By: #### L 503.6005, L500.4050, L100.0100, L300.3900, L300.4310, M200.1000 #### [facility] [address] [place], [address] Urea nitrogen [Mass/Vol] 12 mg/dL Normal 4-19 [facility] Comment on above: Performed By: #### L 503.6005, L500.4050, L100.0100, L300.3900, L300.4310, M200.1000 #### [facility] [address] [place], [address] CBC W/Diff, Automatedon 01-01 TEAR DROP 1+ Normal [facility] Comment on above: Performed By: #### L 503.6005, L500.4050, L100.0100, L300.3900, L300.4310, M200.1000 #### [facility] [address] [place], [address] SCHISTOCYTES 1+ Normal [facility] Comment on above: Performed By: #### L 503.6005, L500.4050, L100.0100, L300.3900, L300.4310, M200.1000 #### [facility] [address] [place], [address] TARGET CELLS 1+ Normal [facility] Comment on above: Performed By: #### L 503.6005, L500.4050, L100.0100, L300.3900, L300.4310, M200.1000 #### [facility] [address] [place], [address] Anisocytosis Ql (Bld) 1+ Normal [facility] Comment on above: Performed By: #### L 503.6005, L500.4050, L100.0100, L300.3900, L300.4310, M200.1000 #### [facility] [address] [place], [address] MACROCYTOSIS 1+ Normal [facility] Comment on above: Performed By: #### L 503.6005, L500.4050, L100.0100, L300.3900, L300.4310, M200.1000 #### [facility] [address] [place], [address] POLYCHROMASIA 1+ Normal [facility] Comment on above: Performed By: #### L 503.6005, L500.4050, L100.0100, L300.3900, L300.4310, M200.1000 #### [facility] [address] [place], [address] Gastric Emptying Studyon Gastric Emptying Study [facility] Imaging Services [address] [place] [address] Gastric Emptying Study MR#: [id number] Acct: [id number] Name: MOERNA PATTON Rep #: [id number] : 1960 F 64 From: Drew Santiago PCP: Care Physician,No Primary Status: ADM CYRIL Study: Gastric Emptying Study Date of Exam: 01/26/25 Exam# [id number] Ordering Dr: Virginie Aguillon MD PROCEDURE: GASTRIC EMPTYING STUDY 01/26/2025 REASON FOR EXAM: UPPER ABD PAIN AND NAUSEA TECHNIQUE: The patient ingested a a semi-solid meal of oatmeal. There was no vomiting postprandially. Anterior and posterior planar images of the upper abdomen were obtained for a total of 60 minutes. Regions of interest were drawn, and a geometric mean was used to calculate a yjnv-pzcwlknr-oweyj. Medications taken in the past 24 hours that may affect gastric emptying: None RADIOPHARMACEUTICAL: Technetium 99 M sulfur colloid DOSE 1.2mCi orally, with oatmeal. FINDINGS: During the time of imaging, gastroesophageal reflux was not identified. Linear fit gastric emptying half-time of 50.39 minutes. Gastric emptying at 17.5 minutes of 22%, at 29.5 minutes of 39%, at 47.5 minutes of 43%, and at 59.5 minutes at 55%. NM/Gastric Emptying Study IMPRESSION: Normal semi solid phase gastric emptying Reading Location: [place] [address] CC: Dr. Gila Reeves DO; Dr. Virginie Aguillon MD; Dr. Lam Espinal MD; No Primary Care Physician Shorer: Signed Normal [facility] Iron+Iron Binding Capacityon 01-26-2025 TIBC 501 ug/dL High 250-450 [facility] Comment on above: Performed By: #### L 503.6005, L500.4050, L100.0100, L300.3900, L300.4310, M200.1000 #### [facility] [address] [place], [address] Thyroid Stim Hormone (TSH)on 01-26-2025 TSH 2.830 uIU/mL Normal 0.300-4.20 0 [facility] Comment on above: Performed By: #### L 503.6005, L500.4050, L100.0100, L300.3900, L300.4310, M200.1000 #### [facility] [address] [place], [address] Abdomen/Pelvis W IV Cont ONL Yon 01-25-2025 Abdomen/Pelvis W IV Cont ONLY [facility] Imaging Services [address] [place], [place] [address] Abdomen/Pelvis W IV Cont ONLY MR#: [id number] Acct: [id number] Name: MORENA PATTON Rep #: [id number] : 1960 F 64 From: Javad juarez MD PCP: Care Physician,No Primary Status: REG ER Study: Abdomen/Pelvis W IV Cont ONLY Date of Exam: Exam# [id number] Ordering Dr: Gila Reeves DO PROCEDURE: ABDOMEN/PELVIS W IV CONT ONLY 01/25/2025 REASON FOR EXAM: LUQ ABD PAIN TECHNIQUE: ABDOMEN/PELVIS W IV CONT ONLY Coronal and Sagittal reconstruction series were provided. CONTRAST: Isovue 370 VOLUME: 100 mL One or more dose reduction techniques were used (e.g., Automated exposure control, adjustment of the mA and/or kV according to patient size, use of iterative reconstruction technique. RADIATION DOSE SUMMARY: CTDlvol: 14 mGy DLP: 819.67 mGycm COMPARISON: Prior study dated October 22, 2022. FINDINGS: Lung bases: Lungs are clear. Coronary artery calcification. Liver: Diffuse fatty infiltration. Stable 1 cm slightly hyperdense nodule in the posterior aspect of the dome of the right lobe of the liver as seen on axial image number 239. Gallbladder: Surgically absent. Spleen: Normal size. Pancreas: Diffuse fatty atrophy. Adrenals: Unremarkable Kidneys: Normal renal sizes. No hydronephrosis. Bladder: Distended urinary bladder. Reproductive Organs: Unremarkable Bowel: There is evidence of prior gastric surgery. Appendix: The appendix is not identified. There is no inflammatory process identified in the right lower quadrant to suggest appendicitis. Lymph nodes: Unremarkable. Vasculature: Mild diffuse atherosclerotic calcifications are noted. Peritoneum / Retroperitoneum: Unremarkable Bones: Minimal anterior listhesis of L4 on L5. Spondylolysis of the pars interarticularis of the L4 vertebrae. CT/Abdomen/Pelvis W IV Cont ONLY IMPRESSION: Fatty infiltration of the liver. Status post gastric bypass surgery. No acute abnormality is seen. Reading Location: [id number] CC: Dr. Gila Reeves, DO; No Primary Care Physician Shorer: Signed Normal [facility] CBC W/Diff, Automatedon 01-01 PLT EST ADEQUATE Normal ADEQ [facility] Comment on above: Performed By: #### L 503.6005, L500.4050, L100.0100, L300.3900, L300.4310, M200.1000 #### [facility] [address] [place], [place], [address] CTA Chest W/WO Contraston CTA Chest W/WO Contrast [facility] Imaging Services [address] [place], [place] [address] CTA Chest W/WO Contrast MR#: [id number] Acct: [id number] Name: MORENA PATTON Rep #: [id number] : 1960 F 64 From: Javad juarez MD PCP: Care Physician,No Primary Status: REG ER Study: CTA Chest W/WO Contrast Date of Exam: 01/25/25 Exam# [id number] Ordering Dr: Gila Reeves DO PROCEDURE: CTA CHEST W/WO CONTRAST 01/25/2025 REASON FOR EXAM: SOB, POSSIBLE PE TECHNIQUE: CTA CHEST W/WO CONTRAST Multiplanar Sagittal and Coronal images were obtained. One or more dose reduction techniques were used (e.g., Automated exposure control, adjustment of the mA and/or kV according to patient size, use of iterative reconstruction technique). CONTRAST: Isovue 3 7 VOLUME: 100 mL RADIATION DOSE SUMMARY: CTDlvol: 14.5 mGy DLP: 819.67 mGycm COMPARISON: Prior chest radiograph dated January 25, 2025. FINDINGS: Hardware: EKG electrodes are seen. Lymph nodes: No significant lymph nodes are seen. Heart: Minimal coronary artery calcification. Thoracic Aorta: Minimal dilatation of the root of the ascending thoracic aorta with measurement of 41 mm. Pulmonary Vessels: No evidence of pulmonary embolism. Lungs and Airways: Lungs are clear. Pleura: No pleural effusion. Upper Abdomen: Fatty infiltration of the liver. Bones: Degenerative changes of the thoracic spine. CT/CTA Chest W/WO Contrast IMPRESSION: No evidence of pulmonary embolism. Reading Location: [id number] CC: Dr. Gila Reeves DO; No Primary Care Physician Shorer: Signed Normal [facility] Chest PA and Lateralon 01-25 Chest [address] L[address] [facility] Imaging Services [address] [place] [address] Chest PA and Lateral MR#: [id number] Acct: [id number] Name: MORENA PATTON Rep #: [id number] : 1960 F 64 From: Drew Santiago PCP: Care Physician,No Primary Status: REG ER Study: Chest PA and Lateral Date of Exam: 01/25/25 Exam# [id number] Ordering Dr: Gila Reeves DO PROCEDURE: CHEST PA AND LATERAL 01/25/2025 REASON FOR EXAM: SOB, RAMIREZ TECHNIQUE: CHEST PA AND LATERAL COMPARISON: Chest x-ray of 08/26/2024. RAD/Chest PA and Lateral IMPRESSION: The cardiomediastinal silhouette is stable, with a somewhat tortuous ascending aorta appearing unchanged. No evidence of cardiomegaly. Subtle left lower lobe airspace disease is seen, with differential diagnosis including Pneumonitis and (less likely given the appearance) atelectasis. No pleural effusion or pneumothorax is seen. No interval osseous change is seen. Reading Location: [facility] CC: Dr. Gila Reeves, DO; No Primary Care Physician Shorer: Signed Normal [facility] Comprehensive Metabolic Prof ilon 01-25-2025 Albumin [Mass/Vol] 4.3 g/dL Normal 3.4-4.8 [facility] Comment on above: Performed By: #### L 503.6005, L500.4050, L100.0100, L300.3900, L300.4310, M200.1000 #### [facility] [address] [place], [address] Albumin/Globulin [Mass ratio] 1.4 {ratio} Normal 0.9-2.4 [facility] Comment on above: Performed By: #### L 503.6005, L500.4050, L100.0100, L300.3900, L300.4310, M200.1000 #### [facility] [address] [place], [address] ALK PHOS 104 U/L Normal 35-104 [facility] Comment on above: Performed By: #### L 503.6005, L500.4050, L100.0100, L300.3900, L300.4310, M200.1000 #### [facility] [address] [place], [address] ALT [Catalytic activity/Vol] 15 U/L Normal <=34 [facility] Comment on above: Performed By: #### L 503.6005, L500.4050, L100.0100, L300.3900, L300.4310, M200.1000 #### [facility] [address] [place], [address] AST [Catalytic activity/Vol] 30 U/L Normal <=31 [facility] Comment on above: Result Comment: Hemo lysis present, Results??could be affected. ?? Performed By: #### L 503.6005, L500.4050, L100.0100, L300.3900, L300.4310, M200.1000 #### [facility] [address] [place], [address] Bilirubin [Mass/Vol] 0.24 mg/dL Normal 0.00-1.30 [facility] Comment on above: Performed By: #### L 503.6005, L500.4050, L100.0100, L300.3900, L300.4310, M200.1000 #### [facility] [address] [place], [address] BUN/CRE 16.0 RATIO Normal 10-20 [facility] Comment on above: Performed By: #### L 503.6005, L500.4050, L100.0100, L300.3900, L300.4310, M200.1000 #### [facility] [address] [place], [address] Calcium [Mass/Vol] 9.6 mg/dL Normal 7.6-11.0 [facility] Comment on above: Performed By: #### L 503.6005, L500.4050, L100.0100, L300.3900, L300.4310, M200.1000 #### [facility] [address] [place], [address] Chloride [Moles/Vol] 102 mmol/L Normal 98-108 [facility] Comment on above: Performed By: #### L 503.6005, L500.4050, L100.0100, L300.3900, L300.4310, M200.1000 #### [facility] [address] [place], [address] CO2 [Moles/Vol] 19.7 mmol/L Low 21.0-32.0 [facility] Comment on above: Performed By: #### L 503.6005, L500.4050, L100.0100, L300.3900, L300.4310, M200.1000 #### [facility] [address] [place], [address] Creatinine [Mass/Vol] 1.09 mg/dL Normal 0.70-1.20 [facility] Comment on above: Performed By: #### L 503.6005, L500.4050, L100.0100, L300.3900, L300.4310, M200.1000 #### [facility] [address] [place], [address] ECRCL 48.81 ml/min Low 50-250 [facility] Comment on above: Performed By: #### L 503.6005, L500.4050, L100.0100, L300.3900, L300.4310, M200.1000 #### [facility] [address] [place], [address] GAP 13 Normal 5-15 [facility] Comment on above: Performed By: #### L 503.6005, L500.4050, L100.0100, L300.3900, L300.4310, M200.1000 #### [facility] [address] [place], [address] GFR/1.73 sq M.predicted among non-blacks MDRD (S/P/Bld) [Vol rate/Area] 57 mL/min/{1.73_m2} Low >60 [facility] Comment on above: Result Comment: mL/m in/1.73m2 CKD-EPI Creatinine Equation (2021) Performed By: #### L 503.6005, L500.4050, L100.0100, L300.3900, L300.4310, M200.1000 #### [facility] [address] [place], [address] Globulin (S) [Mass/Vol] 3.1 g/dL Normal 2.2-4.2 [facility] Comment on above: Performed By: #### L 503.6005, L500.4050, L100.0100, L300.3900, L300.4310, M200.1000 #### [facility] [address] [place], [address] Glucose [Mass/Vol] 101 mg/dL High 70-99 [facility] Comment on above: Performed By: #### L 503.6005, L500.4050, L100.0100, L300.3900, L300.4310, M200.1000 #### [facility] [address] [place], [address] Potassium [Moles/Vol] 4.2 mmol/L Normal 3.3-5.1 [facility] Comment on above: Result Comment: Hemo lysis present, Results??could be affected. ?? Performed By: #### L 503.6005, L500.4050, L100.0100, L300.3900, L300.4310, M200.1000 #### [facility] [address] [place], [address] Sodium [Moles/Vol] 135 mmol/L Normal 133-145 [facility] Comment on above: Performed By: #### L 503.6005, L500.4050, L100.0100, L300.3900, L300.4310, M200.1000 #### [facility] [address] [place], [address] T PROT 7.4 g/dL Normal 5.9-8.4 [facility] Comment on above: Performed By: #### L 503.6005, L500.4050, L100.0100, L300.3900, L300.4310, M200.1000 #### [facility] [address] [place], [address] Urea nitrogen [Mass/Vol] 17 mg/dL Normal 4-19 [facility] Comment on above: Performed By: #### L 503.6005, L500.4050, L100.0100, L300.3900, L300.4310, M200.1000 #### [facility] [address] [place], [address] Emergency Department Summary on 01-25-2025 Emergency Department Summary [facility] Medical Records Department [address] [facility] [place] [address] Emergency Department Summary 01/25/25 MR#: [id number] Acct: [id number] Name: MORENA PATTON Rep #: [id number] : 1960 64 From: Gila Reeves DO PCP: Care Physician,No Primary Status:ADM CYRIL Location: [address] History of Present Illness Chief Complaint: Dizziness Informant: patient Narrative Narrative: Patient is a 64-year-old female with history of GERD, alcohol abuse, hypertension, CKD 3, chronic pain and history of GI bleeding requiring blood transfusion in the past presenting with 1 week of increased generalized malaise, and dizziness (described as a near syncopal sensation), shortness of breath and dyspnea on exertion. She denies any swelling of her legs. She she feels mildly short of breath at rest but is worse when she tries to do things. She notes that few weeks ago she was having black stools however that is cleared up. She is her last bowel movement was a couple days ago. She denies any recent vomiting but does have nausea. She states she has chronic abdominal pain in her left upper quadrant and is complaining of pain in this area as well. States seems to be worse when she has a bleeding ulcer. She does have a history of gastric. She came in for further evaluation with [facility] Medical History (Updated 01/26/25 @ 00:[address] Gila Reeves, DO) Depression Anxiety Smoker Migraines TIA (transient ischemic attack) Chronic kidney disease (CKD), stage III (moderate) Vitamin D deficiency Hyperlipidemia GERD (gastroesophageal reflux disease) PTSD (post-traumatic stress disorder) Tobacco use ETOH abuse Iron (Fe) deficiency anemia History of GI bleed Chest pain Iron deficiency Insomnia Anxiety and depression Obesity (BMI 30-39.9) TMJ (temporomandibular joint syndrome) Chronic pain Hypertension ADHD (attention deficit hyperactivity disorder) Postsurgical malabsorption, not elsewhere classified B12 deficiency Anemia PUD (peptic ulcer disease) Home Medications ???Medication ???Instructions ???Recorded ???Last Taken ???Type rollator walker with seat #1 ea 10/09/20 Unknown Rx cyanocobalamin (vitamin B-12) 1,000 mcg IM Q30D #1 mL 12/20/20 U nknown Rx 1,000 mcg/mL injection solution syringe with needle 1 mL 25 gauge #100 ea 03/05/21 Unknown History x 1 valacyclovir 500 mg tablet 500 mg PO DAILY Herpes Flare #90 0 10/28/21 01/23/25 Rx (Valtrex) tabs triamterene 37.5 1 cap PO DAILY 30 days #90 caps Unknown Rx mg-hydrochlorothiazide 25 mg capsule cholecalciferol (vitamin D3) 25 25 mcg PO DAILY 07/24/24 Unknown H istory mcg (1,000 unit) capsule cyclobenzaprine 10 mg tablet 10 mg PO TID 07/24/24 Unknown Hist ory mirtazapine 7.5 mg tablet 7.5 mg PO QHS #30 tabs 10/10/24 Un known Rx venlafaxine 75 mg capsule,extended 75 mg PO QAM #30 caps 12/15/24 U nknown Rx release 24 hr albuterol sulfate 90 mcg/actuation 2 puff inhalation Q4H PRN SOB, 0 01/25/25 01/23/25 History aerosol inhaler wheezing Allergy/AdvReac Type Severity Reaction Status Date / Time buprenorphine (From [place]) Allergy Rash Verified 01/25/25 19:32 NSAIDS (Non-Steroidal AdvReac Nausea Verified 01/25/25 19:32 Anti-Inflamma Family History Father Myocardial infarction Alcohol [...] chills or fever(s) ENT ENT ED: Denies sore throat Cardiovascular Cardiovascular: Denies chest pain Respiratory/Chest Respiratory/Chest: Reports cough, dyspnea and dyspnea on exertion Gastrointestinal Gastrointestinal: Reports abdominal pain, melena and nausea; Denies constipation Musculoskeletal Musculoskeletal: Denies arthralgias or myalgias Integumentary Denies rash Neurologic Neurologic: Reports headache(s) and weakness Psychi (more content not included)... Normal [facility] Ferritinon 01-25-2025 Ferritin [Mass/Vol] 13 ng/mL Low 22-378 [facility] Comment on above: Performed By: #### L 503.6005, L500.4050, L100.0100, L300.3900, L300.4310, M200.1000 #### [facility] [address] [place], [address] H AND P Exam - Hospitaliston 01-25-2025 H&P Exam - Hospitalist [facility] Medical Records Department [address] [place] [address] H P Exam - Hospitalist 01/25/25 1855 MR#: [id number] Acct: [id number] Name: MORENA PATTON Rep #: [id number] : 1960 64 From: Virginie Aguillon MD PCP: Care Physician,No Primary Status:REG ER Location: ED HPI - General General Date of Admission: 01/25/25 Date of Service: 01/25/25 Chief Complaint: Abdominal pain, weakness HPI Narrative MORENA PATTON, is a 64-year-old female history of GERD, PTSD, PUD, hypertension, depression presented to [facility] ED 01/25/2025 with left upper quadrant pain, generalized malaise and feeling generally unwell. In the ED patient afebrile, heart rate 105 with a blood pressure of 118/82. Respiratory rate 17 and pulse ox 100% on room air. Lipase 44, white blood cell count 4.1, hemoglobin 9.0 with last hemoglobin 5 months ago 11.4. Sodium 135, potassium 4.2 with a bicarb of 19.7, BUN 17 and creatinine 1.09 which appears similar to baseline. BNP of 95. Chest x-ray ordered which queried subtle left lower lobe airspace disease possibly pneumonitis versus atelectasis. CTA obtained which showed no PE or acute process. CT notes status post gastric bypass surgery with fatty infiltration of the liver but no acute abnormality. Gastric occult obtained which was negative. Workup unremarkable however given patient's report of increasing weakness and pain hospitalist contacted for admission. Patient evaluated at bedside. Reports that she has left upper quadrant pain up under her ribs almost all the time then will get significant attacks but occasionally the pain might be gone altogether though that is few and far between. She reports she also stays nauseous most of the time. Has shortness of breath but this is not necessarily changed. Had black stool a couple of weeks ago but denies any at this time, no bowel or bladder changes, no pain in lower abdomen fevers., No other new or acute complaints [facility] Medical History (Updated 01/25/25 @ 19:[address] Virginie Aguillon MD) ADHD (attention deficit hyperactivity disorder) Anemia Anxiety Anxiety and depression B12 deficiency Chest pain Chronic kidney disease (CKD), stage III (moderate) Chronic pain Depression ETOH abuse GERD (gastroesophageal reflux disease) History of GI bleed Hyperlipidemia Hypertension Insomnia Iron (Fe) deficiency anemia Iron deficiency Migraines Obesity (BMI 30-39.9) Postsurgical malabsorption, not elsewhere classified PTSD (post-traumatic stress disorder) PUD (peptic ulcer disease) Smoker TIA (transient ischemic attack) TMJ (temporomandibular joint syndrome) Tobacco use Vitamin D deficiency Home Medications ???Medication ???Instructions ???Recorded ???Last Taken ???Type rollator walker with seat #1 ea 10/09/20 Unknown Rx cyanocobalamin (vitamin B-12) 1,000 mcg IM Q30D #1 mL 12/20/20 U nknown Rx 1,000 mcg/mL injection solution syringe with needle 1 mL 25 gauge #100 ea 03/05/21 Unknown History x 1 valacyclovir 500 mg tablet 500 mg PO DAILY Herpes Flare #90 0 10/28/21 01/23/25 Rx (Valtrex) tabs triamterene 37.5 1 cap PO DAILY 30 days #90 caps Unknown Rx mg-hydrochlorothiazide 25 mg capsule cholecalciferol (vitamin D3) 25 25 mcg PO DAILY 07/24/24 Unknown H istory mcg (1,000 unit) capsule cyclobenzaprine 10 mg tablet 10 mg PO TID 07/24/24 Unknown Hist ory mirtazapine 7.5 mg tablet 7.5 mg PO QHS #30 tabs 10/10/24 Un known Rx venlafaxine 75 mg capsule,extended 75 mg PO QAM #30 caps 12/15/24 U nknown Rx release 24 hr albuterol sulfate 90 mcg/actuation 2 puff inhalation Q4H PRN SOB, 0 01/25/25 01/23/25 History aerosol inhaler wheezing Allergy/AdvReac Type Severity Reaction Status Date / Time buprenorphine (From Butrans) Allergy Rash Verified 01/25/25 19:32 NSAIDS (Non-Steroidal AdvReac Nausea Verified 01/25/25 19:32 Anti-Inflamma Family History Father Myocardial infarction Alcohol abuse Heart disease CAD (coronary artery disease) Mother CVA (cerebral vascular accident) Hypertension Thrombosis Alcohol abuse Sister Lupus Surgical History H/O gastric bypass ( 1999) Hx of bariatric surgery S/P Social History [...] what type of physical activity do you par (more content not included)... Normal [facility] L503.7505on 01-25-2025 Natriuretic peptide B (Bld) [Mass/Vol] 95 pg/mL Normal <=900 [facility] Comment on above: Result Comment: Hear t Failure Unlikely: < 300 pg/mL Heart Failure Likely < 50 Years: > 450 pg/mL 50-75 Years: > 900 pg/mL >75 Years: > 1800 pg/mL Performed By: #### L 503.6005, L500.4050, L100.0100, L300.3900, L300.4310, M200.1000 #### [facility] [address] [place], [place], [address] Lipaseon 01-25-2025 Lipase [Catalytic activity/Vol] 44 U/L Normal 13-75 [facility] Comment on above: Result Comment: Quinten gruber note: LIPASE revised reference range effective 22. New Lipase methodology. Expected to produce lower values than the previous assay method. NEW Reference Range: 13 - 75 U/L Performed By: #### L 503.6005, L500.4050, L100.0100, L300.3900, L300.4310, M200.1000 #### [facility] [address] [place], [address] Retic Panelon 01-25-2025 IM RET FRACTION 39.90 High 3.00-15.90 [facility] Comment on above: Performed By: #### L 503.6005, L500.4050, L100.0100, L300.3900, L300.4310, M200.1000 #### [facility] [address] [place], [address] RET-HE 24.7 pg Low 30-35 [facility] Comment on above: Performed By: #### L 503.6005, L500.4050, L100.0100, L300.3900, L300.4310, M200.1000 #### [facility] [address] [place], [address] Retic Count 1.43 Normal 0.5-1.5 [facility] Comment on above: Performed By: #### L 503.6005, L500.4050, L100.0100, L300.3900, L300.4310, M200.1000 #### [facility] [address] [place], [address] Stool Occult Blood iFOBon STOB Negative Normal [facility] Comment on above: Performed By: #### M 100.7900 #### [facility] [address] [place], [address] Urinalysis, Completeon 01-25 EPI,SQUAMOUS 0-5 SEEN Normal 5-10 [facility] Comment on above: Order Comment: CLEAN CATCH Performed By: #### L 503.6005, L500.4050, L100.0100, L300.3900, L300.4310, M200.1000 #### [facility] [address] [place], [address] RBC 0-5 SEEN Normal 0-5 [facility] Comment on above: Order Comment: CLEAN CATCH Performed By: #### L 503.6005, L500.4050, L100.0100, L300.3900, L300.4310, M200.1000 #### [facility] [address] [place], [address] WBC 0-5 SEEN Normal 0-5 [facility] Comment on above: Order Comment: CLEAN CATCH Performed By: #### L 503.6005, L500.4050, L100.0100, L300.3900, L300.4310, M200.1000 #### [facility] [address] [place], [address] BACTERIA 0 SEEN Normal None Seen [facility] Comment on above: Order Comment: CLEAN CATCH Performed By: #### L 503.6005, L500.4050, L100.0100, L300.3900, L300.4310, M200.1000 #### [facility] [address] [place], [address] Mucus Ql (Urine sed) 0 SEEN Normal [facility] Comment on above: Order Comment: CLEAN CATCH Performed By: #### L 503.6005, L500.4050, L100.0100, L300.3900, L300.4310, M200.1000 #### [facility] [address] [place], [address] /BMS.BPon 12-15-2024 /BMS.BP [address], [address] [place], [place] [address] OFFICE VISIT Date of Service: 12/15/24 MR#: [id number] Acct: [id number] Name: MORENA PATTON Rep #: [id number] : 1960 Provider: KATIE dewey Age/Sex: 64/F Location[place] [facility] Status: Signed Intake Vital Signs 10/10/24 08:10 [...] History (Updated 09/03/24 @ 00:01 by Background Daarely) Chest pain Chronic kidney disease (CKD), stage [...] Appetite is (more content not included)... Normal [facility] MR/BMS.BPon 10-10-2024 MR/BMS.[facility] [address] [place] [address], [address] [place] [address] OFFICE VISIT Date of Service: 10/10/24 MR#: [id number] Acct: [id number] Name: MORENA PATTON Rep #: [id number] : 1960 Provider: KATIE dewey Age/Sex: 64/F Location: [facility] Status: Signed Intake Vital Signs 08/22/24 07:39 [...] 7wfu Accompanied by: Self Allergies buprenorphine (From ButPanopto) Allergy (Verified 10/10/24 08:39) Rash NSAIDS (Non-Steroidal [...] (vitamin D3) 25 25 mcg PO QDAY 12/23/24 03/11/25 H istory mcg (1,000 unit) capsule cyclobenzaprine [...] 31-40 years (more content not included)... Normal [facility] Culture, Blood (WB)on 2024 CUB Blood cultures x2, f rom two different sites No growth in 5 days. Normal [facility] Comment on above: Performed By: #### L 503.6005, L500.4050, L100.0100, L300.3900, L300.4310, M200.1000 #### [facility] [address] [place], [address] 12 Lead EKG performed by [facility] on 08-30-2024 12 Lead EKG performed by [facility] [address] [place] [address] 12 Lead EKG performed by [facility] 08/30/24 0935 MR#: [id number] Acct: [id number] Name: MORENA PATTON Rep #: [id number] : 1960 64 From: Ta Montoya MD Attending Dr: Dr. Ta Montoya MD Status: DEP A MB Ordering Dr: Ta Montoya MD Date: 08/30/24 [place] [facility] [place] AA Admitted: BMS/12 Lead EKG performed by [facility] ECG Report Interpretation Sinus Rhythm -Left atrial enlargement. BORDERLINEElectronically signed on 08/30/2024 at 15:15 by Ta Montoya Software Version 8610 08/30/24 1516 Date Ta Montoya MD CC: Dr. Stoney Hudson MD Date Dictated: 08/30/24934 Date Transcribed: 08/30/24934 Shorer: CO Signed Normal [facility] Cardiology Visit Reporton Cardiology Visit Report [facility] [address] [place] [address]. [address] [place] [address] OFFICE VISIT Date of Service: 08/30/24 MR#: [id number] Acct: [id number] Name: MORENA PATTON Rep #: [id number] : 1960 Provider: Dr. Ta Montoya MD Age/Sex: 64/F [place] [facility] Status: Signed HPI HPI History of Present [...] Intake Visit Reasons: Chest Pain (Tristan) Assistant Corporation Counsel Required: No Accompanied by: Self Is patient in pain?: No Allergies buprenorphine (From Meet You) Allergy (Verified 08/30/24 09:38) Rash NSAIDS (Non-Steroidal [...] at home: (more content not included)... Normal [facility] Urine Cultureon 08-28-2024 URC Mixed Gram Positive Organisms Alcova Count 11,000-25,000 MIXC Mixed contaminants. Submit a new specimen if indicated. Normal [facility] Comment on above: Performed By: #### L 503.6005, L500.4050, L100.0100, L300.3900, L300.4310, M200.1000 #### [facility] [address] [place], [address] 12 Lead EKGon 08-26-2024 12 Lead EKG [facility] Cardiovascular Services [address] [place] [address] 12 Lead EKG 08/26/24 1710 MR#: [id number] Acct: [id number] Name: MORENA PATTON Rep #: [id number] : 1960 64 From: London Dupont MD [...] ECG Confirmed by TERRANCE WOO, JULIO ([id number]), makeup editor ENZO STANFORD ([id number]) on 08/29/2024 6:13:58 AM Referred By: Confirmed By: JULIO DUPONT MD 08/29/24612 Date London Dupont MD CC: Dr. Stoney Hudson MD; Dr. Duglas Ariza DO Signed Normal [facility] CBC W/Diff, Automatedon 08-03 Absolute Lymph 1.30 X10 3/uL Normal 0.83-4.51 [facility] Comment on above: Performed By: #### L 503.6005, L500.4050, L100.0100, L300.3900, L300.4310, M200.1000 #### [facility] [address] [place], [address] Absolute Neut 1.8 X10 3/uL Low 2.0-7.7 [facility] Comment on above: Performed By: #### L 503.6005, L500.4050, L100.0100, L300.3900, L300.4310, M200.1000 #### [facility] [address] [place], [address] Basophils/100 WBC (Bld) 0.6 % Normal 0-1 [facility] Comment on above: Performed By: #### L 503.6005, L500.4050, L100.0100, L300.3900, L300.4310, M200.1000 #### [facility] [address] [place], [address] Eosinophils/100 WBC (Bld) 0.0 % Normal 0-5 [facility] Comment on above: Performed By: #### L 503.6005, L500.4050, L100.0100, L300.3900, L300.4310, M200.1000 #### [facility] [address] [place], [address] Erythrocyte distribution width (RBC) [Ratio] 16.7 % High 11.6-14.6 [facility] Comment on above: Performed By: #### L 503.6005, L500.4050, L100.0100, L300.3900, L300.4310, M200.1000 #### [facility] [address] [place], [address] Hematocrit (Bld) [Volume fraction] 35.4 % Low 37-47 [facility] Comment on above: Performed By: #### L 503.6005, L500.4050, L100.0100, L300.3900, L300.4310, M200.1000 #### [facility] [address] [place], [address] Hemoglobin (Bld) [Mass/Vol] 11.4 g/dL Low 12.0-15.0 [facility] Comment on above: Performed By: #### L 503.6005, L500.4050, L100.0100, L300.3900, L300.4310, M200.1000 #### [facility] [address] [place], [address] IG% 0.300 Normal 0.0-0.9 [facility] Comment on above: Result Comment: IG% - Immature Granulocytes (promyelocytes, myelocytes and metamyelocytes) > 1% indicates that a LEFT SHIFT is Present. Performed By: #### L 503.6005, L500.4050, L100.0100, L300.3900, L300.4310, M200.1000 #### [facility] [address] [place], [address] Lymphocytes/100 WBC (Bld) 37.7 % Normal 19-41 [facility] Comment on above: Performed By: #### L 503.6005, L500.4050, L100.0100, L300.3900, L300.4310, M200.1000 #### [facility] [address] [place], [address] MCH (RBC) [Entitic mass] 23.9 pg Low 27.0-32.0 [facility] Comment on above: Performed By: #### L 503.6005, L500.4050, L100.0100, L300.3900, L300.4310, M200.1000 #### [facility] [address] [place], [address] MCHC (RBC) [Mass/Vol] 32.2 g/dL Normal 32-36 [facility] Comment on above: Performed By: #### L 503.6005, L500.4050, L100.0100, L300.3900, L300.4310, M200.1000 #### [facility] [address] [place], [address] MCV (RBC) [Entitic vol] 74.2 fL Low 81-99 [facility] Comment on above: Performed By: #### L 503.6005, L500.4050, L100.0100, L300.3900, L300.4310, M200.1000 #### [facility] [address] [place], [address] Monocytes/100 WBC (Bld) 10.1 % High 0-10 [facility] Comment on above: Performed By: #### L 503.6005, L500.4050, L100.0100, L300.3900, L300.4310, M200.1000 #### [facility] [address] [place], [address] Neutrophils/100 WBC (Bld) 51.3 % Normal 47-70 [facility] Comment on above: Performed By: #### L 503.6005, L500.4050, L100.0100, L300.3900, L300.4310, M200.1000 #### [facility] [address] [place], [address] Nucleated RBC (Bld) [#/Vol] 0 10*3/uL Normal 0-5 [facility] Comment on above: Performed By: #### L 503.6005, L500.4050, L100.0100, L300.3900, L300.4310, M200.1000 #### [facility] [address] [place], [address] Platelet mean volume (Bld) [Entitic vol] 10.0 fL Normal 6.2-12.0 [facility] Comment on above: Performed By: #### L 503.6005, L500.4050, L100.0100, L300.3900, L300.4310, M200.1000 #### [facility] [address] [place], [address] Platelets (Bld) [#/Vol] 253 10*3/uL Normal 150-450 [facility] Comment on above: Performed By: #### L 503.6005, L500.4050, L100.0100, L300.3900, L300.4310, M200.1000 #### [facility] [address] [place], [address] RBC (Bld) [#/Vol] 4.77 10*6/uL Normal 4.2-5.4 [facility] Comment on above: Performed By: #### L 503.6005, L500.4050, L100.0100, L300.3900, L300.4310, M200.1000 #### [facility] [address] [place], [address] RDW SD 44.5 fl High 35.1-43.9 [facility] Comment on above: Performed By: #### L 503.6005, L500.4050, L100.0100, L300.3900, L300.4310, M200.1000 #### [facility] [address] [place], [address] WBC (Bld) [#/Vol] 3.5 10*3/uL Low 4.4-11.0 [facility] Comment on above: Performed By: #### L 503.6005, L500.4050, L100.0100, L300.3900, L300.4310, M200.1000 #### [facility] [address] [place], [address] Chest 1 View (Portable)on Chest 1 View (Portable) [facility] Imaging Services [address] [place] [address] Chest 1 View (Portable) MR#: [id number] Acct: [id number] Name: MORENA PATTON Rep #: [id number] : 1960 F 64 From: Ronnell jackman MD PCP: Dr. Stoney Hudson MD Status: [facility] ER Study: Chest 1 View (Portable) Date of Exam: 08/26/24 Exam# [id number] Ordering Dr: Duglas Ariza DO [id number] INDICATION: SOB EXAMINATION/TECHNIQUE: X-RAY - XR Chest 1 View COMPARISON: 04/01/2024. FINDINGS: The lungs are clear. Tortuous and calcified thoracic aorta. The heart is not enlarged. No pleural effusion or pneumothorax. No acute osseous abnormalities. RAD/Chest 1 View (Portable) IMPRESSION: No acute radiographic abnormalities. Electronically Signed: Ronnell Dan MD at 20:10 EST , CC: Dr. Stoney Hudson MD; Dr. Duglas Ariza DO Shorer: Signed Normal [facility] Comprehensive Metabolic Prof ilon 08-26-2024 Albumin [Mass/Vol] 3.4 g/dL Normal 3.2-5.0 [facility] Comment on above: Performed By: #### L 503.6005, L500.4050, L100.0100, L300.3900, L300.4310, M200.1000 #### [facility] [address] [place], [address] Albumin/Globulin [Mass ratio] 0.8 {ratio} Low 0.9-2.4 [facility] Comment on above: Performed By: #### L 503.6005, L500.4050, L100.0100, L300.3900, L300.4310, M200.1000 #### [facility] [address] [place], [address] ALK P 100 U/L Normal 45-117 [facility] Comment on above: Performed By: #### L 503.6005, L500.4050, L100.0100, L300.3900, L300.4310, M200.1000 #### [facility] [address] [place], [address] ALT [Catalytic activity/Vol] 20 U/L Normal 13-56 [facility] Comment on above: Performed By: #### L 503.6005, L500.4050, L100.0100, L300.3900, L300.4310, M200.1000 #### [facility] [address] [place], [address] AST [Catalytic activity/Vol] 37 U/L Normal 15-37 [facility] Comment on above: Performed By: #### L 503.6005, L500.4050, L100.0100, L300.3900, L300.4310, M200.1000 #### [facility] [address] [place], [address] Bilirubin [Mass/Vol] 0.30 mg/dL Normal 0.20-1.00 [facility] Comment on above: Result Comment: For patients on eltrombopag therapy, use of Dimension [place] TBIL is not recommended. Performed By: #### L 503.6005, L500.4050, L100.0100, L300.3900, L300.4310, M200.1000 #### [facility] [address] [place], [address] BUN/CRE 12.5 RATIO Normal 10-20 [facility] Comment on above: Performed By: #### L 503.6005, L500.4050, L100.0100, L300.3900, L300.4310, M200.1000 #### [facility] [address] [place], [address] CA,Total 9.3 mg/dL Normal 8.5-10.1 [facility] Comment on above: Performed By: #### L 503.6005, L500.4050, L100.0100, L300.3900, L300.4310, M200.1000 #### [facility] [address] [place], [address] Chloride [Moles/Vol] 102 mmol/L Normal 98-107 [facility] Comment on above: Performed By: #### L 503.6005, L500.4050, L100.0100, L300.3900, L300.4310, M200.1000 #### [facility] [address] [place], [address] CO2 [Moles/Vol] 23.0 mmol/L Normal 21.0-32.0 [facility] Comment on above: Performed By: #### L 503.6005, L500.4050, L100.0100, L300.3900, L300.4310, M200.1000 #### [facility] [address] [place], [address] Creatinine [Mass/Vol] 1.28 mg/dL High 0.55-1.02 [facility] Comment on above: Result Comment: The validity of the calculated GFR GFRAA in patients over 70 years has not been determined. Clinical correlation is essential. Performed By: #### L 503.6005, L500.4050, L100.0100, L300.3900, L300.4310, M200.1000 #### [facility] [address] [place], [address] EST GFR - AA 54 mL/min Low >60 [facility] Comment on above: Result Comment: Afri can [place] GFR Calc Performed By: #### L 503.6005, L500.4050, L100.0100, L300.3900, L300.4310, M200.1000 #### [facility] [address] [place], [address] GAP 9 Normal 5-15 [facility] Comment on above: Performed By: #### L 503.6005, L500.4050, L100.0100, L300.3900, L300.4310, M200.1000 #### [facility] [address] [place], [address] GFR/1.73 sq M.predicted among non-blacks MDRD (S/P/Bld) [Vol rate/Area] 45 mL/min/{1.73_m2} Low >60 [facility] Comment on above: Result Comment: Non- GFR Calc Performed By: #### L 503.6005, L500.4050, L100.0100, L300.3900, L300.4310, M200.1000 #### [facility] [address] [place], [address] Globulin (S) [Mass/Vol] 4.0 g/dL Normal 2.2-4.2 [facility] Comment on above: Performed By: #### L 503.6005, L500.4050, L100.0100, L300.3900, L300.4310, M200.1000 #### [facility] [address] [place], [address] Glucose [Mass/Vol] 103 mg/dL Normal 74-106 [facility] Comment on above: Result Comment: Fast ing Glucose result from 100 to 125 mg/dL suggests IMPAIRED HOMEOSTASIS per A.D.A. criteria. Performed By: #### L 503.6005, L500.4050, L100.0100, L300.3900, L300.4310, M200.1000 #### [facility] [address] [place], [address] Potassium [Moles/Vol] 3.8 mmol/L Normal 3.5-5.1 [facility] Comment on above: Performed By: #### L 503.6005, L500.4050, L100.0100, L300.3900, L300.4310, M200.1000 #### [facility] [address] [place], [address] Sodium [Moles/Vol] 134 mmol/L Low 136-145 [facility] Comment on above: Performed By: #### L 503.6005, L500.4050, L100.0100, L300.3900, L300.4310, M200.1000 #### [facility] [address] [place], [address] T PROT 7.4 g/dL Normal 6.4-8.2 [facility] Comment on above: Performed By: #### L 503.6005, L500.4050, L100.0100, L300.3900, L300.4310, M200.1000 #### [facility] [address] [place], [address] Urea nitrogen [Mass/Vol] 16 mg/dL Normal 7-18 [facility] Comment on above: Performed By: #### L 503.6005, L500.4050, L100.0100, L300.3900, L300.4310, M200.1000 #### [facility] [address] [place], [address] Emergency Department Summary on 08-26-2024 Emergency Department Summary [facility] Medical Records Department [address] [place] [address] Emergency Department Summary 08/26/24 MR#: [id number] Acct: [id number] Name: MORENA PATTON Rep #: [id number] : 1960 64 From: Duglas Ariza DO PCP: Dr. Stoney Hudson MD Status:[facility] ER Location: ED HPI History of Present Illness Chief Complaint: General Illness [facility] Medical History (Updated 08/26/24 @ 19:53 by [...] Reaction Status Date / Time buprenorphine (From Butran) Allergy Rash Verified 08/26/24 16:37 NSAIDS (Non-Steroidal [...] No murmur (more content not included)... Normal [facility] Lactic Acidon 08-26-2024 Lactate [Moles/Vol] 1.3 mmol/L Normal 0.4-1.9 [facility] Comment on above: Order Comment: Y Performed By: #### L 503.6005, L500.4050, L100.0100, L300.3900, L300.4310, M200.1000 #### [facility] [address] [place], [address] M100.678on 08-26-2024 SARS-CoV-2 (COVID-19) Ab IA Ql FLUABV+SARS-CoV-2+RSV Pnl Resp BISI+probe Copy of report sent to Infection Control Printer [id number] 08/26/24 1810 PRATIK. FLUABV+SARS-CoV-2+RSV Pnl Resp BISI+probe RESULTS CALLED TO A. SELF 08/26/24 1810 Sunita Magdaleno. REPORT READ BACK BY . SAME SARS-CoV-2 (COVID 19) Negative INFLUENZA A A Positive A INFLUENZA B Negative RSV PCR Negative INFLUENZAE A Normal [facility] Comment on above: Performed By: #### L 503.6005, L500.4050, L100.0100, L300.3900, L300.4310, M200.1000 #### [facility] [address] [place], [address] Partial Thromboplast Timeon 08-26-2024 aPTT Coag (Bld) [Time] 27.5 s Normal 24.1-36.2 [facility] Comment on above: Performed By: #### L 503.6005, L500.4050, L100.0100, L300.3900, L300.4310, M200.1000 #### [facility] [address] [place], [address] Prothrombin Time w/INRon INR Coag (PPP) [Relative time] 0.9 {INR} Normal [facility] Comment on above: Performed By: #### L 503.6005, L500.4050, L100.0100, L300.3900, L300.4310, M200.1000 #### [facility] [address] [place], [address] PT Coag (PPP) [Time] 11.8 s Normal 11.7-14.9 [facility] Comment on above: Performed By: #### L 503.6005, L500.4050, L100.0100, L300.3900, L300.4310, M200.1000 #### [facility] [address] [place], [address] Urinalysis, Completeon 08-26 BACTERIA RARE Normal None Seen [facility] Comment on above: Order Comment: COLLE CTOR TO SPECIFY Performed By: #### L 503.6005, L500.4050, L100.0100, L300.3900, L300.4310, M200.1000 #### [facility] [address] [place], [address] EPI,SQUAMOUS 0-5 SEEN Normal 5-10 [facility] Comment on above: Order Comment: DANIEL CTOR TO SPECIFY Performed By: #### L 503.6005, L500.4050, L100.0100, L300.3900, L300.4310, M200.1000 #### [facility] [address] [place], [address] RBC 0-5 SEEN Normal 0-5 [facility] Comment on above: Order Comment: DANIEL CTOR TO SPECIFY Performed By: #### L 503.6005, L500.4050, L100.0100, L300.3900, L300.4310, M200.1000 #### [facility] [address] [place], [address] Mucus Ql (Urine sed) 0 SEEN Normal [facility] Comment on above: Order Comment: COLLE CTOR TO SPECIFY Performed By: #### L 503.6005, L500.4050, L100.0100, L300.3900, L300.4310, M200.1000 #### [facility] [address] [place], [address] WBC 0 SEEN Normal 0-5 [facility] Comment on above: Order Comment: DANIEL CTOR TO SPECIFY Performed By: #### L 503.6005, L500.4050, L100.0100, L300.3900, L300.4310, M200.1000 #### [facility] [place], [address] MR/BMS.BPon 08-22-2024 MR/BMS.BP [facility] [address], [address] [place] [address] OFFICE VISIT Date of Service: 08/22/24 MR#: [id number] Acct: [id number] Name: MORENA PATTON Rep #: [id number] : 1960 Provider: KATIE dewey Age/Sex: 64/F Location[facility] Status: Signed Intake Vital Signs 04/11/24 14:35 08/22/24 07:39 Height 5 ft 6 in 5 ft 6 in Weight: 151 lb BMI 24.3 BP 121/77 H Blood Pressure Location Lt brachial Position Sitting Respiration 16 Pulse 91 Pulse Source Monitor BP Intake Visit Reasons: establish care Accompanied by: Self Allergies buprenorphine (From Meet You) Allergy (Verified 08/22/24 07:43) Rash NSAIDS (Non-Steroidal [...] Illness History provided by: patient Chief complaint: Depression/Inattention/Ins omnia HPI: Morena Patton os a 64 year [...] making careless (more content not included)... Normal [facility] Ferritinon 07-20-2024 Ferritin [Mass/Vol] 8 ng/mL Normal 8-252 [facility] Comment on above: Order Comment: N Performed By: #### L 503.6005, L500.4050, L100.0100, L300.3900, L300.4310, M200.1000 #### [facility] [address] [place], [place], [id number] Folates, (Folic Acid)on 07-02 FOLATES 8.20 ng/mL Normal 3.1-55.4 [facility] Comment on above: Order Comment: N Performed By: #### L 503.6005, L500.4050, L100.0100, L300.3900, L300.4310, M200.1000 #### [facility] [address] [place], [place], [id number] Iron+Iron Binding Capacityon 07-20-2024 Iron [Mass/Vol] 19 ug/dL Low 50-170 [facility] Comment on above: Order Comment: N Performed By: #### L 503.6005, L500.4050, L100.0100, L300.3900, L300.4310, M200.1000 #### [facility] [address] [place], [place], [id number] ([address] IRON SATURATION 4.7 Low 15.0-55.0 [facility] Comment on above: Order Comment: N Performed By: #### L 503.6005, L500.4050, L100.0100, L300.3900, L300.4310, M200.1000 #### [facility] [address] [place], [address] TIBC 402 ug/dL Normal 250-450 [facility] Comment on above: Order Comment: N Performed By: #### L 503.6005, L500.4050, L100.0100, L300.3900, L300.4310, M200.1000 #### [facility] [address] [place], [address] Retic Panelon 07-20-2024 IM RET FRACTION 19.60 High 3.00-15.90 [facility] Comment on above: Performed By: #### L 503.6005, L500.4050, L100.0100, L300.3900, L300.4310, M200.1000 #### [facility] [address] [place], [address] RET-HE 23.5 pg Low 30-35 [facility] Comment on above: Performed By: #### L 503.6005, L500.4050, L100.0100, L300.3900, L300.4310, M200.1000 #### [facility] [address] [place], [address] Retic Count 1.38 Normal 0.5-1.5 [facility] Comment on above: Performed By: #### L 503.6005, L500.4050, L100.0100, L300.3900, L300.4310, M200.1000 #### [facility] [address] [place], [address] Vitamin B12on 07-20-2024 Cobalamin (Vitamin B12) [Mass/Vol] 671 pg/mL Normal 211-911 [facility] Comment on above: Performed By: #### L 503.6005, L500.4050, L100.0100, L300.3900, L300.4310, M200.1000 #### [facility] [address], [address] CBC W/Diff, Automatedon 07-02 Absolute Lymph 1.98 X10 3/uL Normal 0.83-4.51 [facility] Comment on above: Performed By: #### L 503.6005, L500.4050, L100.0100, L300.3900, L300.4310, M200.1000 #### [facility] [address] [place], [address] Absolute Neut 1.1 X10 3/uL Low 2.0-7.7 [facility] Comment on above: Performed By: #### L 503.6005, L500.4050, L100.0100, L300.3900, L300.4310, M200.1000 #### [facility] [address] [place], [address] Basophils/100 WBC (Bld) 0.9 % Normal 0-1 [facility] Comment on above: Performed By: #### L 503.6005, L500.4050, L100.0100, L300.3900, L300.4310, M200.1000 #### [facility] [address] [place], [address] Eosinophils/100 WBC (Bld) 2.3 % Normal 0-5 [facility] Comment on above: Performed By: #### L 503.6005, L500.4050, L100.0100, L300.3900, L300.4310, M200.1000 #### [facility] [address] [place], [address] Erythrocyte distribution width (RBC) [Ratio] 15.9 % High 11.6-14.6 [facility] Comment on above: Performed By: #### L 503.6005, L500.4050, L100.0100, L300.3900, L300.4310, M200.1000 #### [facility] [address] [place], [address] Hematocrit (Bld) [Volume fraction] 30.8 % Low 37-47 [facility] Comment on above: Performed By: #### L 503.6005, L500.4050, L100.0100, L300.3900, L300.4310, M200.1000 #### [facility] [address] [place], [address] Hemoglobin (Bld) [Mass/Vol] 9.9 g/dL Low 12.0-15.0 [facility] Comment on above: Performed By: #### L 503.6005, L500.4050, L100.0100, L300.3900, L300.4310, M200.1000 #### [facility] [address] [place], [address] IG% 0.000 Normal 0.0-0.9 [facility] Comment on above: Result Comment: IG% - Immature Granulocytes (promyelocytes, myelocytes and metamyelocytes) > 1% indicates that a LEFT SHIFT is Present. Performed By: #### L 503.6005, L500.4050, L100.0100, L300.3900, L300.4310, M200.1000 #### [facility] [address] [place], [address] Lymphocytes/100 WBC (Bld) 57.4 % High 19-41 [facility] Comment on above: Performed By: #### L 503.6005, L500.4050, L100.0100, L300.3900, L300.4310, M200.1000 #### [facility] [address] [place], [address] MCH (RBC) [Entitic mass] 26.5 pg Low 27.0-32.0 [facility] Comment on above: Performed By: #### L 503.6005, L500.4050, L100.0100, L300.3900, L300.4310, M200.1000 #### [facility] [address] [place], [address] MCHC (RBC) [Mass/Vol] 32.1 g/dL Normal 32-36 [facility] Comment on above: Performed By: #### L 503.6005, L500.4050, L100.0100, L300.3900, L300.4310, M200.1000 #### [facility] [address] [place], [address] MCV (RBC) [Entitic vol] 82.4 fL Normal 81-99 [facility] Comment on above: Performed By: #### L 503.6005, L500.4050, L100.0100, L300.3900, L300.4310, M200.1000 #### [facility] [address] [place], [address] Monocytes/100 WBC (Bld) 7.2 % Normal 0-10 [facility] Comment on above: Performed By: #### L 503.6005, L500.4050, L100.0100, L300.3900, L300.4310, M200.1000 #### [facility] [address] [place], [address] Neutrophils/100 WBC (Bld) 32.2 % Low 47-70 [facility] Comment on above: Performed By: #### L 503.6005, L500.4050, L100.0100, L300.3900, L300.4310, M200.1000 #### [facility] [address] [place], [address] Nucleated RBC (Bld) [#/Vol] 0 10*3/uL Normal 0-5 [facility] Comment on above: Performed By: #### L 503.6005, L500.4050, L100.0100, L300.3900, L300.4310, M200.1000 #### [facility] [address] [place], [address] Platelet mean volume (Bld) [Entitic vol] 9.0 fL Normal 6.2-12.0 [facility] Comment on above: Performed By: #### L 503.6005, L500.4050, L100.0100, L300.3900, L300.4310, M200.1000 #### [facility] [address] [place], [address] Platelets (Bld) [#/Vol] 325 10*3/uL Normal 150-450 [facility] Comment on above: Performed By: #### L 503.6005, L500.4050, L100.0100, L300.3900, L300.4310, M200.1000 #### [facility] [address] [place], [address] RBC (Bld) [#/Vol] 3.74 10*6/uL Low 4.2-5.4 [facility] Comment on above: Performed By: #### L 503.6005, L500.4050, L100.0100, L300.3900, L300.4310, M200.1000 #### [facility] [address] [place], [address] RDW SD 47.5 fl High 35.1-43.9 [facility] Comment on above: Performed By: #### L 503.6005, L500.4050, L100.0100, L300.3900, L300.4310, M200.1000 #### [facility] [address] [place], [address] WBC (Bld) [#/Vol] 3.5 10*3/uL Low 4.4-11.0 [facility] Comment on above: Performed By: #### L 503.6005, L500.4050, L100.0100, L300.3900, L300.4310, M200.1000 #### [facility] [address] [place], [address] Comprehensive Metabolic Prof [facility] 07-19-2024 Albumin [Mass/Vol] 3.2 g/dL Normal 3.2-5.0 [facility] Comment on above: Performed By: #### L 503.6005, L500.4050, L100.0100, L300.3900, L300.4310, M200.1000 #### [facility] [address] [place], [address] Albumin/Globulin [Mass ratio] 0.9 {ratio} Normal 0.9-2.4 [facility] Comment on above: Performed By: #### L 503.6005, L500.4050, L100.0100, L300.3900, L300.4310, M200.1000 #### [facility] [address] [place], [address] ALK P 95 U/L Normal 45-117 [facility] Comment on above: Performed By: #### L 503.6005, L500.4050, L100.0100, L300.3900, L300.4310, M200.1000 #### [facility] [address] [place], [address] ALT [Catalytic activity/Vol] 20 U/L Normal 13-56 [facility] Comment on above: Performed By: #### L 503.6005, L500.4050, L100.0100, L300.3900, L300.4310, M200.1000 #### [facility] [address] [place], [address] AST [Catalytic activity/Vol] 21 U/L Normal 15-37 [facility] Comment on above: Performed By: #### L 503.6005, L500.4050, L100.0100, L300.3900, L300.4310, M200.1000 #### [facility] [address] [place], [address] Bilirubin [Mass/Vol] 0.30 mg/dL Normal 0.20-1.00 [facility] Comment on above: Result Comment: For patients on eltrombopag therapy, use of Dimension [place] TBIL is not recommended. Performed By: #### L 503.6005, L500.4050, L100.0100, L300.3900, L300.4310, M200.1000 #### [facility] [address] [place], [address] BUN/CRE 10.8 RATIO Normal 10-20 [facility] Comment on above: Performed By: #### L 503.6005, L500.4050, L100.0100, L300.3900, L300.4310, M200.1000 #### [facility] [address] [place], [address] CA,Total 9.0 mg/dL Normal 8.5-10.1 [facility] Comment on above: Performed By: #### L 503.6005, L500.4050, L100.0100, L300.3900, L300.4310, M200.1000 #### [facility] [address] [place], [address] Chloride [Moles/Vol] 110 mmol/L High 98-107 [facility] Comment on above: Performed By: #### L 503.6005, L500.4050, L100.0100, L300.3900, L300.4310, M200.1000 #### [facility] [address] [place], [address] CO2 [Moles/Vol] 25.0 mmol/L Normal 21.0-32.0 [facility] Comment on above: Performed By: #### L 503.6005, L500.4050, L100.0100, L300.3900, L300.4310, M200.1000 #### [facility] [address] [place], [address] Creatinine [Mass/Vol] 0.93 mg/dL Normal 0.55-1.02 [facility] Comment on above: Result Comment: The validity of the calculated GFR GFRAA in patients over 70 years has not been determined. Clinical correlation is essential. Performed By: #### L 503.6005, L500.4050, L100.0100, L300.3900, L300.4310, M200.1000 #### [facility] [address] [place], [address] EST GFR - AA 78 mL/min Normal >60 [facility] Comment on above: Result Comment: Afri can [place] GFR Calc Performed By: #### L 503.6005, L500.4050, L100.0100, L300.3900, L300.4310, M200.1000 #### [facility] [address] [place], [address] GAP 3 Low 5-15 [facility] Comment on above: Performed By: #### L 503.6005, L500.4050, L100.0100, L300.3900, L300.4310, M200.1000 #### [facility] [address] [place], [address] GFR/1.73 sq M.predicted among non-blacks MDRD (S/P/Bld) [Vol rate/Area] 65 mL/min/{1.73_m2} Normal >60 [facility] Comment on above: Result Comment: Non- GFR Calc Performed By: #### L 503.6005, L500.4050, L100.0100, L300.3900, L300.4310, M200.1000 #### [facility] [address] [place], [address] Globulin (S) [Mass/Vol] 3.4 g/dL Normal 2.2-4.2 [facility] Comment on above: Performed By: #### L 503.6005, L500.4050, L100.0100, L300.3900, L300.4310, M200.1000 #### [facility] [address] [place], [address] Glucose [Mass/Vol] 100 mg/dL Normal 74-106 [facility] Comment on above: Result Comment: Fast ing Glucose result from 100 to 125 mg/dL suggests IMPAIRED HOMEOSTASIS per A.D.A. criteria. Performed By: #### L 503.6005, L500.4050, L100.0100, L300.3900, L300.4310, M200.1000 #### [facility] [address] [place], [address] Potassium [Moles/Vol] 4.0 mmol/L Normal 3.5-5.1 [facility] Comment on above: Performed By: #### L 503.6005, L500.4050, L100.0100, L300.3900, L300.4310, M200.1000 #### [facility] [address] [place], [address] Sodium [Moles/Vol] 138 mmol/L Normal 136-145 [facility] Comment on above: Performed By: #### L 503.6005, L500.4050, L100.0100, L300.3900, L300.4310, M200.1000 #### [facility] [address] [place], [address] T PROT 6.6 g/dL Normal 6.4-8.2 [facility] Comment on above: Performed By: #### L 503.6005, L500.4050, L100.0100, L300.3900, L300.4310, M200.1000 #### [facility] [address] [place], [address] Urea nitrogen [Mass/Vol] 10 mg/dL Normal 7-18 [facility] Comment on above: Performed By: #### L 503.6005, L500.4050, L100.0100, L300.3900, L300.4310, M200.1000 #### [facility] [address] [place], [address] Lipid Profileon 07-19-2024 Cholesterol [Mass/Vol] 210 mg/dL High 200 [facility] Comment on above: Result Comment: <200 mg/dL Desirable 200-240 mg/dL Borderline >240 mg/dL High Risk Performed By: #### L 503.6005, L500.4050, L100.0100, L300.3900, L300.4310, M200.1000 #### [facility] [address] [place], [address] Cholesterol in HDL [Mass/Vol] 114 mg/dL Normal [facility] Comment on above: Result Comment: The drugs N-Acetylcysteine and Metamizole may falsely depress this assay. Reference Range HDL <40 mg/dL Low HDL Cholesterol HDL >or= 60 mg/dL High HDL Cholesterol Performed By: #### L 503.6005, L500.4050, L100.0100, L300.3900, L300.4310, M200.1000 #### [facility] [address] [place], [address] Cholesterol in LDL [Mass/Vol] 71 mg/dL Normal 0-130 [facility] Comment on above: Performed By: #### L 503.6005, L500.4050, L100.0100, L300.3900, L300.4310, M200.1000 #### [facility] [address] [place], [address] Cholesterol in VLDL [Mass/Vol] 25 mg/dL Normal 5-40 [facility] Comment on above: Performed By: #### L 503.6005, L500.4050, L100.0100, L300.3900, L300.4310, M200.1000 #### [facility] [address] [place], [address] Triglyceride [Mass/Vol] 124 mg/dL Normal [facility] Comment on above: Result Comment: The drugs N-Acetylcysteine and Metamizole may falsely depress this assay. Serum Triglycerides Reference Interval Normal <150 mg/dL Borderline high 150 - 199 mg/dL High 200 - 499 mg/dL Very High > or = 500 mg/dL Performed By: #### L 503.6005, L500.4050, L100.0100, L300.3900, L300.4310, M200.1000 #### [facility] [address] [place], [address] Thyroid Stim Hormone (TSH)on 07-19-2024 TSH 1.170 uIU/mL Normal 0.358-3.74 0 [facility] Comment on above: Performed By: #### L 503.6005, L500.4050, L100.0100, L300.3900, L300.4310, M200.1000 #### [facility] [address] [place], [address] MRA HEAD W/O CONTRASTon 11-0 7-2024 MRA HEAD W/O CONTRAST ORIGINAL EXAMINATION: MRA OF THE HEAD WITHOUT CONTRAST 06/08/2024 9:50 am TECHNIQUE: MRA of the head was performed utilizing [id number] imaging with MIP images. No intravenous contrast [...] Sign Date: 06/08/2024 10:06:50 AM Ordering Provider: BUNNYHANNAH YO [facility] MRA NECK W/O CONTRASTon MRA NECK W/O CONTRAST ORIGINAL EXAMINATION: MRA [...] Sign Date: 06/08/2024 10:07:33 AM Ordering Provider: BUNNYHANNAH YO [facility] MRI BRAIN W/ + W/O CONTRASTo n [...] Date: 06/08/2024 9:05:45 AM Ordering Provider: BUNNY YO Normal [facility] Telephone Encounteron 2023 [employer] Aut[employer] Interface Message Text Called patient, 3 identifiers obtained. Patient was unable to talk at this time. Instructed patient to call [employer] at [phone]. Asked patient to reference #[phone] when calling back to our office. Ok to relay message below from Anamaria Guerrero RN. Normal [facility] Telephone Encounteron 2023 [employer] Authentication Interface Message Text Unable to leave a message, voicemail is full. If patient calls back please ask the need for syringes, please encourage patient to keep 02/24/24 appt. Thank you. Normal [facility] Telephone Encounteron 2023 [employer] Authentication Interface Message Text Patient was identified [...] (Arrive by 12:50 PM) [facility] 2023 [employer] Authentication Interface Message Text OARRS reviewed. This is the last prescription that I will refill on behalf of this patietn Normal [facility] CBC W Auto Differential pane l (Bld)on 12-01-2023 Basophils (Bld) [#/Vol] 10*3/uL Normal <0.11 [facility] Comment on above: Order Comment: Speci men Type: BLOOD SPECIMENOrdering Facility: [facility] Address: [address] [place] [address] Performed By: #### 5 7021-8 ####[facility] LABCLIA [id number] [place] [address] [place] Basophils/100 WBC (Bld) 0.4 % Normal [facility] Comment on above: Order Comment: Speci men Type: BLOOD SPECIMENOrdering Facility: [facility] Address: [address] [place] [address] Performed By: #### 5 7021-8 ####[facility] LABCLIA [id number] [place] [address] [place] Differential cell count method Nom (Bld) Auto Normal [facility] Comment on above: Order Comment: Speci men Type: BLOOD SPECIMENOrdering Facility: [facility] Address: [address] [place] [address] Performed By: #### 5 7021-8 ####[facility] LABCLIA [id number] [place] [address] [place] Eosinophils (Bld) [#/Vol] 0.07 10*3/uL Normal <0.46 [facility] Comment on above: Order Comment: Speci men Type: BLOOD SPECIMENOrdering Facility: [facility] Address: [address] [place] [address] Performed By: #### 5 7021-8 ####[facility] LABCLIA [id number] [place] [address] [place] Eosinophils/100 WBC (Bld) 1.3 % Normal [facility] Comment on above: Order Comment: Speci men Type: BLOOD SPECIMENOrdering Facility: [facility] Address: [address] [place] [address] Performed By: #### 5 7021-8 ####[facility] LABCLIA [id number] [place] [address] [place] Erythrocyte distribution width (RBC) [Ratio] 18.6 % High 11.5-15.0 [facility] Comment on above: Order Comment: Speci men Type: BLOOD SPECIMENOrdering Facility: [facility] Address: [address] [place] [address] Performed By: #### 5 7021-8 ####[facility] LABIA [id number] [place] [address] [place] Hematocrit (Bld) [Volume fraction] 35.9 % Low 36.0-46.0 [facility] Comment on above: Order Comment: Speci men Type: BLOOD SPECIMENOrdering Facility: [facility] Address: [address] [place] [address] Performed By: #### 5 7021-8 ####[facility] LABCLIA [id number] [place] [address] [place] Hemoglobin (Bld) [Mass/Vol] 11.4 g/dL Low 11.5-15.5 [facility] Comment on above: Order Comment: Speci men Type: BLOOD SPECIMENOrdering Facility: [facility] Address: [address] [place] [address] Performed By: #### 5 7021-8 ####[facility] LABCLIA [id number] [place] [address] [place] Immature granulocytes (Bld) [#/Vol] 10*3/uL Normal <0.10 [facility] Comment on above: Order Comment: Speci men Type: BLOOD SPECIMENOrdering Facility: [facility] Address: [address] [place] [address] Performed By: #### 5 7021-8 ####[facility] LABCLIA [id number] [place] [address] [place] Immature granulocytes/100 WBC (Bld) 0.2 % Normal [facility] Comment on above: Order Comment: Speci men Type: BLOOD SPECIMENOrdering Facility: [facility] Address: [address] [place] [address] Performed By: #### 5 7021-8 ####[facility] LABCLIA [id number] [place] [address] [place] Lymphocytes (Bld) [#/Vol] 2.50 10*3/uL Normal 1.00-4.00 [facility] Comment on above: Order Comment: Speci men Type: BLOOD SPECIMENOrdering Facility: [facility] Address: [address] [place] [address] Performed By: #### 5 7021-8 ####[facility] LABCLIA [id number] [place] [address] [place] Lymphocytes/100 WBC (Bld) 47.8 % Normal [facility] Comment on above: Order Comment: Speci men Type: BLOOD SPECIMENOrdering Facility: [facility] Address: [address] [place] [address] Performed By: #### 5 7021-8 ####[facility] LABCLIA [id number] [place] [address] [place] MCH (RBC) [Entitic mass] 23.4 pg Low 26.0-34.0 [facility] Comment on above: Order Comment: Speci men Type: BLOOD SPECIMENOrdering Facility: [facility] Address: [address] [place] [address] Performed By: #### 5 7021-8 ####[facility] LABCLIA [id number] [place] [address] [place] MCHC (RBC) [Mass/Vol] 31.8 g/dL Normal 30.5-36.0 [facility] Comment on above: Order Comment: Speci men Type: BLOOD SPECIMENOrdering Facility: [facility] Address: [address] [place] [address] Performed By: #### 5 7021-8 ####[facility] LABCLIA [id number] [place] [address] [place] MCV (RBC) [Entitic vol] 73.6 fL Low 80.0-100.0 [facility] Comment on above: Order Comment: Speci men Type: BLOOD SPECIMENOrdering Facility: [facility] Address: [address] [place] [address] Performed By: #### 5 7021-8 ####[facility] LABCLIA [id number] [place] [address] [place] Monocytes (Bld) [#/Vol] 0.39 10*3/uL Normal <0.87 [facility] Comment on above: Order Comment: Speci men Type: BLOOD SPECIMENOrdering Facility: [facility] Address: [address] [place] [address] Performed By: #### 5 7021-8 ####[facility] LABCLIA [id number] [place] [address] [place] Monocytes/100 WBC (Bld) 7.5 % Normal [facility] Comment on above: Order Comment: Speci men Type: BLOOD SPECIMENOrdering Facility: [facility] Address: [address] [place] [address] Performed By: #### 5 7021-8 ####[facility] LABCLIA [id number] [place] [address] [place] Neutrophils (Bld) [#/Vol] 2.24 10*3/uL Normal 1.45-7.50 [facility] Comment on above: Order Comment: Speci men Type: BLOOD SPECIMENOrdering Facility: [facility] Address: [address] [place] [address] Performed By: #### 5 7021-8 ####[facility] LABCLIA [id number] [place] [address] [place] Neutrophils/100 WBC (Bld) 42.8 % Normal [facility] Comment on above: Order Comment: Speci men Type: BLOOD SPECIMENOrdering Facility: [facility] Address: [address] [place] [address] Performed By: #### 5 7021-8 ####[facility] LABCLIA [id number] [place] [address] [place] Nucleated RBC (Bld) [#/Vol] 0.02 10*3/uL High <0.01 [facility] Comment on above: Order Comment: Speci men Type: BLOOD SPECIMENOrdering Facility: [facility] Address: [address] [place] [address] Performed By: #### 5 7021-8 ####[facility] LABCLIA [id number] [place] [address] [place] Nucleated RBC/100 WBC (Bld) [Ratio] 0.4 /100 WBC Normal [facility] Comment on above: Order Comment: Speci men Type: BLOOD SPECIMENOrdering Facility: [facility] Address: [address] [place] [address] Performed By: #### 5 7021-8 ####[facility] LABCLIA [id number] [place] [address] [place] Platelet mean volume (Bld) [Entitic vol] 9.0 fL Normal 9.0-12.7 [facility] Comment on above: Order Comment: Speci men Type: BLOOD SPECIMENOrdering Facility: [facility] Address: [address] [place] [address] Performed By: #### 5 7021-8 ####[facility] LABCLIA [id number] [place] [address] [place] Platelets (Bld) [#/Vol] 383 10*3/uL Normal 150-400 [facility] Comment on above: Order Comment: Speci men Type: BLOOD SPECIMENOrdering Facility: [facility] Address: [address] [place] [address] Performed By: #### 5 7021-8 ####[facility] LABIA [id number] [place] [address] [place] RBC (Bld) [#/Vol] 4.88 10*6/uL Normal 3.90-5.20 [facility] Comment on above: Order Comment: Speci men Type: BLOOD SPECIMENOrdering Facility: [facility] Address: [address] [place] [address] Performed By: #### 5 7021-8 ####[facility] LABIA [id number] [place] [address] [place] WBC (Bld) [#/Vol] 5.23 10*3/uL Normal 3.70-11.00 [facility] Comment on above: Order Comment: Speci men Type: BLOOD SPECIMENOrdering Facility: [facility] Address: [address] [place] [address] Performed By: #### 5 7021-8 ####[facility] LABIA [id number] [place] [address] [place] Comprehensive metabolic 2000 panelon 12-01-2023 Albumin [Mass/Vol] 4.0 g/dL Normal 3.9-4.[address] [facility] Comment on above: Order Comment: Speci men Type: BLOOD SPECIMENOrdering Facility: [facility] Address: [address] [place] [address] Performed By: #### 2 4323-8, 88568-4, 37188-1, 3016-3 ####[facility] LABCLIA [id number] [address] [address] [place] ALP [Catalytic activity/Vol] 105 U/L Normal 34-123 [facility] Comment on above: Order Comment: Speci men Type: BLOOD SPECIMENOrdering Facility: [facility] Address: [address] [place] [address] Performed By: #### 2 4323-8, 82916-3, 40406-3, 3016-3 ####[facility] LABIA [id number] [place] [address] [place] ALT [Catalytic activity/Vol] 10 U/L Normal 7-38 [facility] Comment on above: Order Comment: Speci men Type: BLOOD SPECIMENOrdering Facility: [facility] Address: [address] [place] [address] Performed By: #### 2 4323-8, 71947-8, 95706-3, 3016-3 ####[facility] LABIA [id number] [place] [address] [place] Anion gap [Moles/Vol] 13 mmol/L Normal 9-18 [facility] Comment on above: Order Comment: Speci men Type: BLOOD SPECIMENOrdering Facility: [facility] Address: [address] [place] [address] Performed By: #### 2 4323-8, 59783-8, 36358-6, 3016-3 ####[facility] LABIA [id number] [place] [address] [place] AST [Catalytic activity/Vol] 20 U/L Normal 13-35 [facility] Comment on above: Order Comment: Speci men Type: BLOOD SPECIMENOrdering Facility: [facility] Address: [address] [place] [address] Performed By: #### 2 4323-8, 53562-6, 06774-7, 3016-3 ####[facility] LABCLIA [id number] [place] [id number] [place] Bilirubin [Mass/Vol] 0.2 mg/dL Normal 0.2-1.3 [facility] Comment on above: Order Comment: Speci men Type: BLOOD SPECIMENOrdering Facility: [facility] Address: [address] [place] [address] Performed By: #### 2 4323-8, 97306-3, 50498-3, 3016-3 ####[facility] LABCLIA [id number] [place] [address] [place] Calcium [Mass/Vol] 9.6 mg/dL Normal 8.5-10.[address] [facility] Comment on above: Order Comment: Speci men Type: BLOOD SPECIMENOrdering Facility: [facility] Address: [address] [place] [address] Performed By: #### 2 4323-8, 06901-1, 46050-8, 3016-3 ####[facility] LABCLIA [id number] [place] [address] [place] Chloride [Moles/Vol] 102 mmol/L Normal 97-105 [facility] Comment on above: Order Comment: Speci men Type: BLOOD SPECIMENOrdering Facility: [facility] Address: [address] [place] [address] Performed By: #### 2 4323-8, 80853-3, 12805-7, 3016-3 ####[facility] LABCLIA [id number] [place] [address] [place] CO2 [Moles/Vol] 21 mmol/L Low 22-30 [facility] Comment on above: Order Comment: Speci men Type: BLOOD SPECIMENOrdering Facility: [facility] Address: [address] [place] [address] Performed By: #### 2 4323-8, 56603-5, 58544-7, 3016-3 ####[facility] LABIA [id number] [place] [id number] [place] Creatinine [Mass/Vol] 0.94 mg/dL Normal 0.58-0.96 [facility] Comment on above: Order Comment: Speci men Type: BLOOD SPECIMENOrdering Facility: [facility] Address: [address] [place] [address] Performed By: #### 2 4323-8, 06165-7, 97990-6, 3016-3 ####[facility] [id number] [place] [address] [place] Creatinine and Glomerular filtration rate.predicted panel (S/P/Bld) 68 mL/min/1.73m??? Normal >=60 [facility] Comment on above: Order Comment: Winniei men Type: BLOOD SPECIMENOrdering Facility: [facility] Address: [address] [place] [address] Result Comment: Kelley mated Glomerular Filtration Rate [...] actual GFR. Performed By: #### 2 4323-8, 89676-4, 50045-9, 3016-3 ####[facility] LABIA [id number] [place] [id number] [place] Glucose [Mass/Vol] 111 mg/dL High 74-[address] [facility] Comment on above: Order Comment: Winniei men Type: BLOOD SPECIMENOrdering Facility: [facility] Address: [address] [place] [address] Result Comment: The [place] [employer] (ADA) provides guidance for cutoff [...] Standards of Medical Care in Diabetes 2016, [place] [employer]. Diabetes Care. 2016.39(Suppl 1). Performed By: #### 2 4323-8, 36388-9, 54620-5, 3016-3 ####[facility] LABCLIA [id number] [place] [address] [place] Potassium [Moles/Vol] 3.6 mmol/L Low 3.7-5.1 [facility] Comment on above: Order Comment: Speci men Type: BLOOD SPECIMENOrdering Facility: [facility] Address: [address] [place] [address] Performed By: #### 2 4323-8, 53006-1, 81754-2, 3016-3 ####[facility] LABCLIA [id number] [place] [address] [place] Protein [Mass/Vol] 7.0 g/dL Normal 6.3-8.[address] [facility] Comment on above: Order Comment: Speci men Type: BLOOD SPECIMENOrdering Facility: [facility] Address: [address] [place] [address] Performed By: #### 2 4323-8, 00640-1, 68230-1, 3016-3 ####[facility] LABCLIA [id number] [place] [id number] [place] Sodium [Moles/Vol] 136 mmol/L Normal 136-[address] [facility] Comment on above: Order Comment: Speci men Type: BLOOD SPECIMENOrdering Facility: [facility] Address: [address] [place] [address] Performed By: #### 2 4323-8, 34910-2, 19239-0, 3016-3 ####[facility] LABCLIA [id number] [address] [address] [place] Urea nitrogen [Mass/Vol] 9 mg/dL Normal 7-21 [facility] Comment on above: Order Comment: Speci men Type: BLOOD SPECIMENOrdering Facility: [facility] Address: [address] [place] [address] Performed By: #### 2 4323-8, 99504-5, 39709-8, 3016-3 ####[facility] LABCLIA [id number] [address] [address] [place] ED NOTEon 12-01-2023 ED NOTE HNO ID: [id number] Author: GRAY HECK RN Service: Emergency Medicine Author Type: Registered Nurse Type: ED Notes Filed: 12/01/2023 15:16 Note Text: Pt with 2 weeks of feeling faint, light headedness, cp, RAMIREZ, gradually becoming worse. Normal [facility] ED Triage Noteon 12-01-2023 ED Triage Note HNO ID: [id number] Author: RONNELL SERVIN MD Service: Emergency Medicine [...] needs to drive home before dark in [place]. Review results thus far, no severe abnormalities. Encouraged RTED at any time to continue her workup here, or closer to home at [facility] facilities such as [place] or [facility]. Clinical Impressions as of 12/01/23 1649 Chest pain, unspecified type SOB (shortness of breath) Tobacco use Primary hypertension Iron deficiency anemia, unspecified iron deficiency anemia type Thank you, Ronnell Servin MD [facility] [place] SIGNATURE: Ronnell Servin MD UPDATE for patient choosing to leave prior to being roomed and performance of a complete evaluation. Normal [facility] HIGH SENSITIVITY TROPONIN T (INITIAL)on 12-01-2023 Troponin T.cardiac High sensitivity method [Mass/Vol] 10 ng/L Normal <12 [facility] Comment on above: Order Comment: Edelmira rutherford Type: BLOOD SPECIMENOrdering Facility: [facility] Address: [address] [place] [address] Result Comment: When assessing risk for acute [...] 30 day MACE. Performed By: #### L [id number] ####[facility] LABCLIA [id number] [place] [address] [place] Magnesium SerPl-ncon 11-30 Magnesium [Mass/Vol] 1.9 mg/dL Normal 1.7-2.3 [facility] Comment on above: Order Comment: Edelmira rutherford Type: BLOOD SPECIMENOrdering Facility: [facility] Address: [address] [place] [address] Performed By: #### 2 4323-8, 92012-5, 27554-5, 3016-3 ####[facility] LABCLIA [id number] [address] [place] NT-proBNP SerPl-mCncon 11-30 Natriuretic peptide.B prohormone N-Terminal [Mass/Vol] 90 pg/mL Normal <125 [facility] Comment on above: Order Comment: Speci men Type: BLOOD SPECIMENOrdering Facility: [facility] Address: [address] [place] [address] Performed By: #### 2 4323-8, 91950-7, 10859-0, 3016-3 ####[facility] [id number] [place] [address] [place] TSH SerPl-aCncon 12-01-2023 TSH Qn 1.080 m[IU]/L Normal 0.270-4.20 0 [facility] Comment on above: Order Comment: Speci men Type: BLOOD SPECIMENOrdering Facility: [facility] Address: [address] [place] [address] Performed By: #### 2 4323-8, 58603-5, 32023-0, 3016-3 ####[facility] [id number] [place] [address] [place] XR CHEST 2V FRONTAL/LATon [...] Degenerative changes. IMPRESSION: No acute radiographic abnormality. Shorer: PSCB Transcribe Date/Time: Dec 01 2023 3:46P Dictated by : JOVANI ESCUDERO MD This examination was interpreted and the report reviewed and electronically signed by: ORESTES LI MD on Dec 01 2023 3:54PM EST [id number] Normal [facility] Absolute lymphocyte countOrd ered By: Charly Almonte on 11-16-2023 Lymphocytes Auto (Unsp spec) [#/Vol] 3.06 10*3/uL 0.83-4.51 [facility] Automated lymphocyte count a s percentage of total leukocytesOrdered By: Charly Almonte on 11-16-2023 Lymphocytes/100 WBC Auto (Unsp spec) 57.5 % 19-41 [facility] Basophil percentageOrdered B y: Charly Almonte on 11-16-2023 Basophils/100 WBC (Bld) 0.4 % 0-1 [facility] Chloride [Moles/Vol] 110 mmol/L 98-107 [facility] Eosinophils/100 WBC (Bld) 1.7 % 0-5 [facility] Glucose [Mass/Vol] 113 mg/dL 74-106 [facility] Comment on above: Fasting Glucose resu lt from 100 to 125 mg/dL suggests IMPAIRED HOMEOSTASIS per A.D.A. criteria. Hemoglobin (Bld) [Mass/Vol] 11.5 g/dL 12.0-15.0 [facility] Monocytes/100 WBC (Bld) 6.8 % 0-10 [facility] Neutrophils (Bld) [#/Vol] 1.8 10*3/uL 2.0-7.7 [facility] Neutrophils/100 WBC (Bld) 33.4 % 47-70 [facility] Potassium [Moles/Vol] 3.7 mmol/L 3.5-5.1 [facility] Sodium [Moles/Vol] 140 mmol/L 136-145 [facility] WBC (Bld) [#/Vol] 5.3 10*3/uL 4.4-11.0 [facility] Determination of erythrocyte mean corpuscular volume (MCV)Ordered By: Charly Almonte on 11-16-2023 MCV (RBC) [Entitic vol] 74.5 fL 81-99 [facility] Erythrocyte distribution wid th ratioOrdered By: Charly Almonte on 11-16-2023 Erythrocyte distribution width (RBC) [Ratio] 18.6 % 11.6-14.6 [facility] Erythrocyte distribution wid th standard deviationOrdered By: Charly Almonte on 11-16-2023 Erythrocyte distribution width (RBC) [Entitic vol] 49.6 fL 35.1-43.9 [facility] Hematocrit Auto (Bld) [Volum e fraction]Ordered By: Charly Almonte on 11-16-2023 Hematocrit (Bld) [Volume fraction] 37.1 % 37-47 [facility] Immature granulocytes/100 WB C Auto (Bld)Ordered By: Charly Almonte on 11-16-2023 Immature granulocytes/100 WBC (Bld) 0.200 % 0.0-0.9 [facility] Comment on above: IG% - Immature Granu locytes (promyelocytes, myelocytes and metamyelocytes) > 1% indicates that a LEFT SHIFT is Present. Laboratory - Chemistry and C hemistry - challengeOrdered By: Charly Almonte on 11-16-2023 CO2 [Moles/Vol] 25.0 mmol/L 21.0-32.0 [facility] Urea nitrogen/Creatinine [Mass ratio] 14.4 mg/mg 10-20 [facility] Laboratory - Hematology and Cell countsOrdered By: Charly Almonte on 11-16-2023 MCH (RBC) [Entitic mass] 23.1 pg 27.0-32.0 [facility] MCHC (RBC) [Mass/Vol] 31.0 g/dL 32-36 [facility] Nucleated RBC/100 WBC (Bld) [Ratio] 0 % 0-5 [facility] Platelet mean volume (Bld) [Entitic vol] 9.2 fL 6.2-12.0 [facility] Platelets (Bld) [#/Vol] 396 10*3/uL 150-450 [facility] Laboratory - Microbiology an d Antimicrobial susceptibilityOrdered By: Charly Almonte on 11-16-2023 SARS-CoV-2 (COVID-19) RNA BISI+probe Ql (Unsp spec) [facility] No Panel InformationOrdered By: Charly Almonte on 11-16-2023 Troponin I High Sensitivity 28 pg/mL 3.0-54.0 [facility] Comment on above: Please Note: New Sary t Units and Gender Specific Reference Ranges. For more information see Policy Stat Procedure [place] High Sensitivity Troponin (TNIH) and attachments. D-Dimer Quantitative (PE/DVT) 0.37 FEU/ug/m 0.27-0.49 [facility] Comment on above: NORMAL D-Dimer level (<0.50) indicates no DVT or PE. Estimated Creatinine Clearance Calc 51.83 ml/min [facility] Estimated GFR (MDRD) Amer 69 mL/min >60 [facility] Comment on above: GFR Calc Estimated GFR (MDRD) Non-Af Amer 57 mL/min >60 [facility] Comment on above: Non- GFR Calc RBC Auto (Bld) [#/Vol]Ordere d By: Charly Almonte on 11-16-2023 RBC (Bld) [#/Vol] 4.98 10*6/uL 4.2-5.4 [facility] Serum or plasma calcium angela urement (mass/volume)Ordered By: Charly Almonte on 11-16-2023 Calcium [Mass/Vol] 9.3 mg/dL 8.5-10.1 [facility] Serum or plasma creatinine m easurement (mass/volume)Ordered By: Charly Almonte on 11-16-2023 Creatinine [Mass/Vol] 1.04 mg/dL 0.55-1.02 [facility] Comment on above: The validity of the calculated GFR & GFRAA in patients over 70 years has not been determined. Clinical correlation is essential. Serum or plasma urea nitroge n measurement (mass/volume)Ordered By: Charly Almonte on 11-16-2023 Urea nitrogen [Mass/Vol] 15 mg/dL 7-18 [facility] Thin prep Papanicolaou smear with manual screeningOrdered By: Charly Almonte on 11-16-2023 Thin prep Papanicolaou smear with manual screening 5 5-15 [facility] Telephone Encounteron 2023 [employer] Authentication Interface Message Text OARRS reviewed Normal [facility] Telephone Encounteron 2023 Diet Tech Authentication Interface Message Text Patient must schedule, and keep, follow up appointments to continue to receive this medication. Normal [facility] Telephone Encounteron 11-07- 2023 Diet Tech Authentication Interface Message Text OARRS reviewed Normal [facility] Telephone Encounteron 2022 Diet Tech Authentication Interface Message Text Care Gaps Scheduling Health Maintenence Due: Medicare AWV/PCP Visit: deferred Eye Exam: not due Foot Exam: not due Annual Bloodwork: active orders YOKO: not due Normal [facility] Absolute lymphocyte countOrd ered By: Blaise Tom on 03-23-2023 Lymphocytes Auto (Unsp spec) [#/Vol] 2.35 10*3/uL 0.83-4.51 [facility] Amorphous sediment detection in urine sediment by light microscopyOrdered By: Blaise Tom on 03-23-2023 Amorphous sediment LM Ql (Urine sed) 1+ URATE [facility] Basophil percentageOrdered B y: Blaise Tom on 03-23-2023 Basophil percentage 0-5 SEEN /hpf 0-5 [facility] Basophils/100 WBC (Bld) 0.4 % 0-1 [facility] Bilirubin [Mass/Vol] 0.20 mg/dL 0.20-1.00 [facility] Comment on above: For patients on eltr ombopag therapy, use of Dimension [place] TBIL is not recommended. Chloride [Moles/Vol] 109 mmol/L 98-107 [facility] Eosinophils/100 WBC (Bld) 2.0 % 0-5 [facility] Glucose [Mass/Vol] 85 mg/dL 74-106 [facility] Neutrophils (Bld) [#/Vol] 1.8 10*3/uL 2.0-7.7 [facility] Neutrophils/100 WBC (Bld) 37.9 % 47-70 [facility] Potassium [Moles/Vol] 4.0 mmol/L 3.5-5.1 [facility] Protein [Mass/Vol] 6.7 g/dL 6.4-8.2 [facility] Sodium [Moles/Vol] 140 mmol/L 136-145 [facility] WBC (Bld) [#/Vol] 4.6 10*3/uL 4.4-11.0 [facility] Bilirubin Test strip Ql (U)O rdered By: Blaise Tom on 03-23-2023 Bilirubin Ql (U) Negative Negative [facility] Blood erythrocytes count (nu mber/volume)Ordered By: Blaise Tom on 03-23-2023 RBC (Bld) [#/Vol] 4.77 10*6/uL 4.2-5.4 [facility] Blood hemoglobin measurement (mass/volume)Ordered By: Blaise Tom on 03-23-2023 Hemoglobin (Bld) [Mass/Vol] 11.5 g/dL 12.0-15.0 [facility] Blood lymphocytes/100 leukoc ytesOrdered By: Blaise Tom on 03-23-2023 Lymphocytes/100 WBC (Bld) 51.0 % 19-41 [facility] Blood manual differential co mment interpretation (narrative result)Ordered By: Blaise Tom on 03-23-2023 Manual differential comment Ryan (Bld) [Interp] See comment [facility] Comment on above: 1+ ANISOCYTOSIS Blood monocytes/100 leukocyt esOrdered By: Blaise Tom on 03-23-2023 Monocytes/100 WBC (Bld) 8.7 % 0-10 [facility] Blood platelet mean volumeOr dered By: Blaise Tom on 03-23-2023 Platelet mean volume (Bld) [Entitic vol] 9.1 fL 6.2-12.0 [facility] Determination of erythrocyte mean corpuscular volume (MCV)Ordered By: Blaise Tom on 03-23-2023 MCV (RBC) [Entitic vol] 77.8 fL 81-99 [facility] Hematocrit Auto (Bld) [Volum e fraction]Ordered By: Blaise Tom on 03-23-2023 Hematocrit (Bld) [Volume fraction] 37.1 % 37-47 [facility] Ketones Test strip Ql (U)Ord ered By: Blaise Tom on 03-23-2023 Ketones Ql (U) 15 mg/dl Negative [facility] Laboratory - Chemistry and C hemistry - challengeOrdered By: Blaise Tom on 03-23-2023 ALP [Catalytic activity/Vol] 92 U/L 45-117 [facility] ALT [Catalytic activity/Vol] 22 U/L 13-56 [facility] CO2 [Moles/Vol] 24.0 mmol/L 21.0-32.0 [facility] Globulin (S) [Mass/Vol] 3.5 g/dL 2.2-4.2 [facility] Lipase [Catalytic activity/Vol] 38 U/L 13-75 [facility] Comment on above: Please note:LIPASE r evised reference range effective 22. New Lipase methodology. Expected to produce lower values than the previous assay method. NEW Reference Range: 13 - 75 U/L Urea nitrogen/Creatinine [Mass ratio] 17.0 mg/mg 10-20 [facility] Laboratory - Hematology and Cell countsOrdered By: Blaise Tom on 03-23-2023 Erythrocyte distribution width (RBC) [Entitic vol] 56.7 fL 35.1-43.9 [facility] Erythrocyte distribution width (RBC) [Ratio] 20.6 % 11.6-14.6 [facility] Immature granulocytes/100 WBC (Bld) 0.000 % 0.0-0.9 [facility] Comment on above: IG% - Immature Granu locytes (promyelocytes, myelocytes and metamyelocytes) > 1% indicates that a LEFT SHIFT is Present. MCH (RBC) [Entitic mass] 24.1 pg 27.0-32.0 [facility] Nucleated RBC/100 WBC (Bld) [Ratio] 0 % 0-5 [facility] MCHC Auto (RBC) [Mass/Vol]Or dered By: Blaise Tom on 03-23-2023 MCHC (RBC) [Mass/Vol] 31.0 g/dL 32-36 [facility] Mucus LM Ql (Urine sed)Order ed By: Blaise Tom on 03-23-2023 Mucus Ql (Urine sed) 0 SEEN /hpf [facility] Nitrite Test strip Ql (U)Ord ered By: Blaise Tom on 03-23-2023 Nitrite Ql (U) Negative Negative [facility] No Panel InformationOrdered By: Blaise Tom on 03-23-2023 Estimated Creatinine Clearance Calc 50.85 ml/min [facility] Estimated GFR (MDRD) Amer 67 mL/min >60 [facility] Comment on above: GFR Calc Estimated GFR (MDRD) Non-Af Amer 56 mL/min >60 [facility] Comment on above: Non- GFR Calc Platelets bldOrdered By: Darwin Tom on 03-23-2023 Platelets (Bld) [#/Vol] 225 10*3/uL 150-450 [facility] Protein Test strip Ql (U)Ord ered By: Blaise Tom on 03-23-2023 Protein Ql (U) 30 mg/dl Negative [facility] Serum or plasma albumin angela urement (mass/volume)Ordered By: Blaise Tom on 03-23-2023 Albumin [Mass/Vol] 3.2 g/dL 3.2-5.0 [facility] Serum or plasma albumin/glob ulin mass ratioOrdered By: Blaise Tom on 03-23-2023 Albumin/Globulin [Mass ratio] 0.9 {ratio} 0.9-2.4 [facility] Serum or plasma calcium angela urement (mass/volume)Ordered By: Blaise Tom on 03-23-2023 Calcium [Mass/Vol] 9.1 mg/dL 8.5-10.1 [facility] Serum or plasma creatinine m easurement (mass/volume)Ordered By: Blaise Tom on 03-23-2023 Creatinine [Mass/Vol] 1.06 mg/dL 0.55-1.02 [facility] Comment on above: The validity of the calculated GFR & GFRAA in patients over 70 years has not been determined. Clinical correlation is essential. Serum or plasma urea nitroge n measurement (mass/volume)Ordered By: Blaise Tom on 03-23-2023 Urea nitrogen [Mass/Vol] 18 mg/dL 7-18 [facility] Squamous epithelial cells de tection in urine sediment by light microscopyOrdered By: Blaise Tom on 03-23-2023 Epithelial cells.squamous LM Ql (Urine sed) 0-5 SEEN /hpf 5-10 [facility] Thin prep Papanicolaou smear with manual screeningOrdered By: Blaise Tom on 03-23-2023 Thin prep Papanicolaou smear with manual screening 17 U/L 15-37 [facility] Thin prep Papanicolaou smear with manual screening 7 5-15 [facility] Urine blood detectionOrdered By: Blaise Tom on 03-23-2023 RBC Ql (U) 10 /ul Negative [facility] RBC Ql (U) 0-5 SEEN /hpf 0-5 [facility] Urine clarityOrdered By: Darwin Tom on 08-22-2023 Clarity (U) Clear Clear [facility] Urine color determinationOrd ered By: Blaise Tom on 03-23-2023 Color (U) Yellow Yellow [facility] Urine glucose detectionOrder ed By: Blaise oTm on 03-23-2023 Glucose Ql (U) Normal mg/dl Normal [facility] Urine leukocyte esterase det ection by dipstickOrdered By: Blaise Tom on 03-23-2023 Leukocyte esterase Test strip Ql (U) 25 /ul Negative [facility] Urine pHOrdered By: Blaise ordaz on 03-23-2023 pH (U) 6.0 [pH] 5.0 - 8.0 [facility] Urine sediment bacteria coun t by microscopy (number/high power field)Ordered By: Blaise Tom on 03-23-2023 Bacteria LM.HPF (Urine sed) [#/Area] 0 /[HPF] None Seen [facility] Urine specific gravity measu rementOrdered By: Blaise Tom on 03-23-2023 Specific gravity (U) [Rel density] 1.020 1.002-1.03 0 [facility] Urobilinogen Auto test strip Ql (U)Ordered By: Blaise Tom on 03-23-2023 Urobilinogen Ql (U) 1 mg/dl Normal [facility] Telephone Encounteron 2022 Diet Tech Authentication Interface Message Text Order pended for provider review AND signature. Requested Prescriptions Pending Prescriptions Disp Refills Syringe 23G X 1 3 ML MISC 12 Each 0 Si Syringe once a month. vitamin B-12 (CYANOCOBALAMIN) 1000 MCG/ML injection 12 Each 0 Sig: Inject 1 mL into the muscle once a month. Normal [facility] Diet Tech Authentication Interface Message Text Pharmacy requesting medication substitution. Medication not available to order: Cyanocobalamin 1000 MCG/ML KIT Recommended alternative medications: Pharmacy is requesting two separate prescriptions, one for the vitamin B injection solution and the other for the syringe to inject it. Prescribing provider's name: Hilton Johnson MD Pharmacy Name: [facility] Normal [facility] Telephone Encounteron 2022 Diet Tech Authentication Interface Message Text Patient was identified [...] prescription was sent to her pharmacy in [place]. She should repeat her lipid panel sometime in May. Patient verbalized understanding with no further questions. Normal [facility] Diet Tech Authentication Interface Message Text Prescribing a statin in response to the elevated cholesterol and total nonHDL cholesterol identified on her lipid panel realizing that the HDL is quite elevated and might indicate some degree of protection against CVD. Normal [facility] Addendum Noteon 03-09-2023 Diet Tech Authentication Interface Message Text Addended by: NICHELLE HILLS on: 03/09/2023 02:14 PM Modules accepted: Orders Normal [facility] BASIC METABOLIC PANELon 08-0 Anion gap [Moles/Vol] 12 mmol/L Normal 10-20 [facility] Comment on above: Performed By: #### V ITB12, HDL, CH8, LUCIAN ####S PATHOLOGY [id number] [place], [place], Calcium [Mass/Vol] 9.5 mg/dL Normal 8.4-10.4 [facility] Comment on above: Performed By: #### V ITB12, HDL, CH8, LUCIAN ####S PATHOLOGY [id number] [place], Chloride [Moles/Vol] 108 mmol/L Normal 97-111 [facility] Comment on above: Performed By: #### V ITB12, HDL, CH8, LUCIAN ####S PATHOLOGY [id number] [place], CO2 [Moles/Vol] 25 mmol/L Normal 21-30 [facility] Comment on above: Performed By: #### V ITB12, HDL, CH8, LUCIAN ####S PATHOLOGY [id number] [place], Creatinine [Mass/Vol] 1.05 mg/dL Normal 0.50-1.10 [facility] Comment on above: Performed By: #### V ITB12, HDL, CH8, LUCIAN ####S PATHOLOGY [id number] [place], ESTIMATED GFR (CKD-EPI) 60 mL/min/1.73sqm Normal >=60 [facility] Comment on above: Result Comment: 2020 [...] Inclusion of Race in Diagnosing Kidney Disease. [place] Journal of Kidney Diseases 2021;79(2):268-88.e1. 2. N Engl J Med 2020 Vol. 385 Issue 19 Pages 4429-4102 Performed By: #### V ITB12, HDL, CH8, LUCIAN ####[facility] PATHOLOGY [id number] [place], Glucose [Mass/Vol] 85 mg/dL Normal 80-116 [facility] Comment on above: Performed By: #### V ITB12, HDL, CH8, LUCIAN ####[facility] PATHOLOGY [id number] [place], Potassium [Moles/Vol] 4.1 mmol/L Normal 3.3-5.3 [facility] Comment on above: Performed By: #### V ITB12, HDL, CH8, LUCIAN ####[facility] PATHOLOGY [id number] [place], Sodium [Moles/Vol] 141 mmol/L Normal 135-148 [facility] Comment on above: Performed By: #### V ITB12, HDL, CH8, LUCIAN ####[facility] PATHOLOGY [id number] [place], Urea nitrogen [Mass/Vol] 16 mg/dL Normal 8-22 [facility] Comment on above: Performed By: #### V ITB12, HDL, CH8, LUCIAN ####[facility] [id number] [place], [address] Basic metabolic 2000 panelon 03-09-2023 Anion gap [...] Inclusion of Race in Diagnosing Kidney Disease. [place] Journal of Kidney Diseases 202;79(2):268-88.e1. 2. N Engl J Med 1 Vol. 385 Issue 19 Pages 5353-6570 Glucose [Mass/Vol] 85 mg/dL 80 - 116 [...] 4.2 10*3/uL Low 4.5 - 11.5 K/uL [facility] CBC WITH DIFFERENTIALon 08-0 Basophils (Bld) [#/Vol] 0.03 10*3/uL Normal 0.00-0.20 [facility] Comment on above: Performed By: #### KERI BEASLEY ####S PATHOLOGY [id number] [place], Basophils/100 WBC (Bld) 0.8 % Normal <=1.9 [facility] Comment on above: Performed By: #### KERI BEASLEY ####S PATHOLOGY [id number] [place], Eosinophils (Bld) [#/Vol] 0.08 10*3/uL Normal 0.00-0.70 [facility] Comment on above: Performed By: #### KERI BEASLEY ####[facility] PATHOLOGY [id number] [place], Eosinophils/100 WBC (Bld) 2.0 % Normal 0.1-4.0 [facility] Comment on above: Performed By: #### KERI BEASLEY ####[facility] PATHOLOGY [id number] [place], Erythrocyte distribution width (RBC) [Ratio] 20.3 % High 11.5-14.5 [facility] Comment on above: Performed By: #### KERI BEASLEY ####[facility] PATHOLOGY [id number] [place], Hematocrit (Bld) [Volume fraction] 37.7 % Normal 36.0-46.0 [facility] Comment on above: Performed By: #### KERI BEASLEY ####S PATHOLOGY [id number] [place], Hemoglobin (Bld) [Mass/Vol] 11.9 g/dL Low 12.0-15.0 [facility] Comment on above: Performed By: #### KERI BEASLEY ####S PATHOLOGY [id number] [place], Lymphocytes (Bld) [#/Vol] 2.22 10*3/uL Normal 1.00-4.80 [facility] Comment on above: Performed By: ###KERI VILLATORO ####[facility] PATHOLOGY [id number] [place], Lymphocytes/100 WBC (Bld) 53.0 % High 24.0-44.0 [facility] Comment on above: Performed By: #### KERI BEASLEY ####[facility] PATHOLOGY [id number] [place] [address], MCH (RBC) [Entitic mass] 24.5 pg Low 26.0-34.0 [facility] Comment on above: Performed By: ###KERI VILLATORO ####[facility] PATHOLOGY [id number] [place] [address], MCHC (RBC) [Mass/Vol] 31.6 g/dL Low 32.0-35.9 [facility] Comment on above: Performed By: ###KERI VILLATORO ####[facility] PATHOLOGY [id number] [place] [address], MCV (RBC) [Entitic vol] 78 fL Low 80-100 [facility] Comment on above: Performed By: ###KERI VILLATORO ####[facility] PATHOLOGY [id number] [place] [address], MONOCYTE DISTRIBUTION WIDTH Normal [facility] Comment on above: Performed By: ###KERI VILLATORO ####[facility] PATHOLOGY [id number] [place] [address], Monocytes (Bld) [#/Vol] 0.29 10*3/uL Normal 0.20-1.00 [facility] Comment on above: Performed By: ###KERI VILLATORO ####S PATHOLOGY [id number] [place] [address], Monocytes/100 WBC (Bld) 7.0 % Normal 2.0-11.0 [facility] Comment on above: Performed By: ###KERI VILLATORO ####[facility] PATHOLOGY [id number] [place], Neutrophils (Bld) [#/Vol] 1.56 10*3/uL Normal 1.50-8.00 [facility] Comment on above: Performed By: ###KERI VILLATORO ####[facility] PATHOLOGY [id number] [place], Neutrophils/100 WBC (Bld) 37.3 % Normal 31.0-76.0 [facility] Comment on above: Performed By: ###KERI VILLATORO ####[facility] PATHOLOGY [id number] [place], Platelet mean volume (Bld) [Entitic vol] 8.0 fL Normal 7.5-11.2 [facility] Comment on above: Performed By: ###KERI VILLATORO ####[facility] PATHOLOGY [id number] [place] [address], Platelets (Bld) [#/Vol] 229 10*3/uL Normal 150-400 [facility] Comment on above: Performed By: ###KERI VILLATORO ####[facility] PATHOLOGY [id number] [place], RBC (Bld) [#/Vol] 4.87 10*6/uL Normal 4.00-5.20 [facility] Comment on above: Performed By: ###KERI VILLATORO ####[facility] PATHOLOGY [id number] [place], WBC (Bld) [#/Vol] 4.2 10*3/uL Low 4.5-11.5 [facility] Comment on above: Performed By: ###KERI VILLATORO ####[facility] PATHOLOG[facility] [id number] [place], DARK BLUE TOP TUBE, BLOODon 03-09-2023 Extra Tube Done [facility] FERRITINon 03-09-2023 Ferritin [Mass/Vol] 12.2 ng/mL 10.3 - 219.0 ng/mL [facility] Interpretation and review of laboratory results Normal [facility] LUCIAN 12.2 ng/mL Normal 10.3-219.0 [facility] Comment on above: Performed By: #### V ITB12, HDL, CH8, LUCIAN ####[facility] PATHOLOGY [id number] [place], FULL LIPID PROFILEon 023 Cholesterol [Mass/Vol] 256 mg/dL High <200 Th e [facility] Comment on above: Performed By: #### V ITB12, HDL, CH8, LUCIAN ####[facility] PATHOLOG[facility] [id number] [place], Cholesterol in LDL [Mass/Vol] 175 mg/dL High <111 [facility] Comment on above: Performed By: #### V ITB12, HDL, CH8, LUCIAN ####[facility] PATHOLOGY [id number] [place] [address], Cholesterol.total/Chol esterol in HDL [Mass ratio] 3.66 {ratio} Normal <5.00 The [facility] Comment on above: Performed By: #### V ITB12, HDL, CH8, LUCIAN ####[facility] PATHOLOGY [id number] [place] [address], HDL CHOL 70 mg/dL Normal >54 [facility] Comment on above: Performed By: #### V ITB12, HDL, CH8, LUCIAN ####[facility] PATHOLOGY [id number] [place] [address], LDL/HDL 2.50 Normal <3.57 [facility] Comment on above: Performed By: #### V ITB12, HDL, CH8, LUCIAN ####[facility] PATH[facility] [id number] [place], NON-HDL CHOLESTEROL 186 mg/dL High <130 [facility] Comment on above: Performed By: #### V ITB12, HDL, CH8, LUCIAN ####[facility] PATHOLOGY [id number] [place] [address], Triglyceride [Mass/Vol] 86 mg/dL Normal <151 The [facility] Comment on above: Performed By: #### V ITB12, HDL, CH8, LUCIAN ####[facility] PATHOLOG[facility] [id number] [place], HEMOGLOBIN A1Con 03-09-2023 Glucose [Mass/Vol] 123 mg/dL Normal [facility] Comment on above: Performed By: #### Angela Islas A1C #### [facility] [address] [place], [address] HbA1c (Bld) [Mass fraction] 5.9 % High 4.0-5.6 [facility] Comment on above: Performed By: #### Angela Islas A1C #### [facility] [address] [place], [address] Lipid 1996 panelon 3 Cholesterol [Mass/Vol] 256 [...] 151 mg/dL [facility] MANUAL DIFF AND MORPHon 08-0 Cells Counted Total (Bld) [#] [facility] Microcytes Ql (Bld) Slight [facility] Ovalocytes LM Ql (Bld) Few [facility] RBC.hypochromic/100 RBC Auto (Bld) Slight [facility] Schistocytes LM Ql (Bld) Few [facility] Spherocytes LM Ql (Bld) Few [facility] CELLS COUNTED TOTAL # IN BLOOD Normal [facility] Comment on above: Performed By: #### KERI BEASLEY ####[facility] [id number] [place], FRAGMENTED RBC Few Normal [facility] Comment on above: Performed By: #### KERI BEASLEY ####[facility] [id number] [place], HYPOCHROMASIA Slight Normal [facility] Comment on above: Performed By: #### KERI BEASLEY ####[facility] [id number] [place], MICROCYTOSIS Slight Normal [facility] Comment on above: Performed By: #### KERI BEASLEY ####S PATHOLOGY [id number] [place], OVALOCYTES Few Normal [facility] Comment on above: Performed By: #### KERI BEASLEY ####S PATHOLOGY [id number] [place], SPHEROCYTES Few Normal [facility] Comment on above: Performed By: #### KERI BEASLEY ####S PATHOLOGY [id number] [place], No Panel Informationon 03-09 [facility] Progress Noteson 03-09-2023 Diet Tech Authentication Interface Message Text Patient identified by name and date of . Blood obtained from arm. Normal [facility] Diet Tech Authentication Interface Message Text Date: 03/09/23 Morena Patton 63 year old, female [id number] CHIEF COMPLAINT: Chief Complaint Patient presents with [...] about a week ago. She lives in [place] but came here today because viktoriya really knows me. She ran out of most of her medications and has not been taking them. She passed out last week and picked up some medications at that time. She is now on a heart monitor. She is due to see a stack matcher when she turns in her monitor. She was in the ED on January 30 for abdominal pain. She was discharged on Carafate. She started taking it on 02/24. She was in pain the entire time up until starting to take it. Her pain is now improved but not resolved. She states that she needs to see a doctor podiatric medicine and Neurologist and stack matcher. ED Morena Patton is a 62 year [...] with use of omeprazole, lidocaine patches, and 9360-9313 mg tylenol which she has been taking [...] Lost child LAPAROSCOPY (1978) ovarian cystectomy COLONOSCOPY 3-03 BARIATRIC SURGERY [facility] 1999 ESOPHAGOGASTRODUODENOSCOPY (06/14/2019) Procedure: ESOPHAGOGASTRODUODENOSCOPY ; Surgeon: Abdullahi David MD; Location: [facility]; Service: Gastroenterology COLONOSCOPY AND ESOPHAGOGASTRODUODENOSCOPY (12/30/2021) Procedure: ESOPHAGOGASTRODUODENOSCOPY AND COLONOSCOPY; Surgeon: Davon Ha MD; Location: [facility]; Service: Gastroenterology Outpatient Medications Marked as Taking for the 03/09/23 encounter (Office Visit) with Tc (more content not included)... Normal [facility] Diet Tech Authentication Interface Message Text Identification was verified by patient verbalizing her name and date of . Patient at risk for falls:No Falls Risk protocol implemented: No Normal [facility] VITAMIN B12 (CYANOCOBALAMIN) on 03-09-2023 Cobalamin (Vitamin B12) [Moles/Vol] 375 pg/mL 300 - PINF pg/mL [facility] Interpretation and review of laboratory results Normal [facility] <152 pg/mL - Deficie nt 152 - 300 pg/mL- Insufficient >300 pg/mL - Sufficient [facility] Cobalamin (Vitamin B12) [Mass/Vol] 375 pg/mL Normal >300 [facility] Comment on above: Order Comment: <152 pg/mL - [id number] - 300 pg/mL- Insufficient>300 pg/mL - Sufficient Performed By: #### V ITB12, HDL, CH8, LUCIAN ####[facility] [id number] [place], [address] VITAMIN D, 25-HYDROXYon 25-hydroxyvitamin D IA [Mass/Vol] 62 ng/mL 30 - 100 ng/mL [facility] Interpretation and review of laboratory results Normal [facility] Deficient : <20.0 ng /mL Insufficient : 20.0-29.9 ng/mL Sufficient : 30.0 - 100.0 ng/mL Potential Toxicity : >100.0 ng/mL [facility] Telephone Encounteron 2022 Diet Tech Authentication Interface Message Text Patient is calling [...] as a plan of action. Normal [facility] Absolute lymphocyte countOrd ered By: Virginie Aguillon on 02-16-2023 Lymphocytes Auto (Unsp spec) [#/Vol] 2.12 10*3/uL 0.83-4.51 [facility] Basophil percentageOrdered B y: Virginie Aguillon on 02-16-2023 Basophils/100 WBC (Bld) 0.8 % 0-1 [facility] Chloride [Moles/Vol] 108 mmol/L 98-107 [facility] Eosinophils/100 WBC (Bld) 4.0 % 0-5 [facility] Glucose [Mass/Vol] 91 mg/dL 74-106 [facility] Neutrophils (Bld) [#/Vol] 0.9 10*3/uL 2.0-7.7 [facility] Neutrophils/100 WBC (Bld) 26.0 % 47-70 [facility] Potassium [Moles/Vol] 4.0 mmol/L 3.5-5.1 [facility] Sodium [Moles/Vol] 138 mmol/L 136-145 [facility] WBC (Bld) [#/Vol] 3.5 10*3/uL 4.4-11.0 [facility] Blood erythrocytes count (nu mber/volume)Ordered By: Virginie Aguillon on 02-16-2023 RBC (Bld) [#/Vol] 4.45 10*6/uL 4.2-5.4 [facility] Blood hemoglobin measurement (mass/volume)Ordered By: Virginie Aguillon on 02-16-2023 Hemoglobin (Bld) [Mass/Vol] 10.5 g/dL 12.0-15.0 [facility] Blood lymphocytes/100 leukoc ytesOrdered By: Virginie Aguillon on 02-16-2023 Lymphocytes/100 WBC (Bld) 60.1 % 19-41 [facility] Blood manual differential co mment interpretation (narrative result)Ordered By: Virginie Aguillon on 02-16-2023 Manual differential comment Ryan (Bld) [Interp] SCANNED [facility] Comment on above: NEUTROPENIA Blood monocytes/100 leukocyt esOrdered By: Virginie Aguillon on 02-16-2023 Monocytes/100 WBC (Bld) 8.8 % 0-10 [facility] Blood platelet mean volumeOr dered By: Virginie Aguillon on 02-16-2023 Platelet mean volume (Bld) [Entitic vol] 10.1 fL 6.2-12.0 [facility] Determination of erythrocyte mean corpuscular volume (MCV)Ordered By: Virginie Aguillon on 02-16-2023 MCV (RBC) [Entitic vol] 79.1 fL 81-99 [facility] Hematocrit Auto (Bld) [Volum e fraction]Ordered By: Virginie Aguillon on 07-18-2023 Hematocrit (Bld) [Volume fraction] 35.2 % 37-47 [facility] Laboratory - Chemistry and C hemistry - challengeOrdered By: Virginie Aguillon on 02-16-2023 CO2 [Moles/Vol] 25.0 mmol/L 21.0-32.0 [facility] Urea nitrogen/Creatinine [Mass ratio] 8.9 mg/mg 10-20 [facility] Laboratory - Hematology and Cell countsOrdered By: Virginie Aguillon on 02-16-2023 Erythrocyte distribution width (RBC) [Entitic vol] 52.3 fL 35.1-43.9 [facility] Erythrocyte distribution width (RBC) [Ratio] 18.6 % 11.6-14.6 [facility] Immature granulocytes/100 WBC (Bld) 0.300 % 0.0-0.9 [facility] Comment on above: IG% - Immature Granu locytes (promyelocytes, myelocytes and metamyelocytes) > 1% indicates that a LEFT SHIFT is Present. MCH (RBC) [Entitic mass] 23.6 pg 27.0-32.0 [facility] Nucleated RBC/100 WBC (Bld) [Ratio] 0 % 0-5 [facility] MCHC Auto (RBC) [Mass/Vol]Or dered By: Virginie Aguillon on 02-16-2023 MCHC (RBC) [Mass/Vol] 29.8 g/dL 32-36 [facility] Comment on above: Delta: 31.7 on 02/15-0600 No Panel InformationOrdered By: Virginie Aguillon on 02-16-2023 Estimated Creatinine Clearance Calc 48.13 ml/min [facility] Estimated GFR (MDRD) Amer 63 mL/min >60 [facility] Comment on above: GFR Calc Estimated GFR (MDRD) Non-Af Amer 52 mL/min >60 [facility] Comment on above: Non- GFR Calc Platelets bldOrdered By: Lucero Aguillon on 02-16-2023 Platelets (Bld) [#/Vol] 206 10*3/uL 150-450 [facility] Serum or plasma calcium angela urement (mass/volume)Ordered By: Virginie Aguillon on 02-16-2023 Calcium [Mass/Vol] 9.1 mg/dL 8.5-10.1 [facility] Serum or plasma creatinine m easurement (mass/volume)Ordered By: Virginie Aguillon on 02-16-2023 Creatinine [Mass/Vol] 1.12 mg/dL 0.55-1.02 [facility] Comment on above: The validity of the calculated GFR & GFRAA in patients over 70 years has not been determined. Clinical correlation is essential. Serum or plasma urea nitroge n measurement (mass/volume)Ordered By: Virginie Aguillon on 02-16-2023 Urea nitrogen [Mass/Vol] 10 mg/dL 02-16 [facility] Thin prep Papanicolaou smear with manual screeningOrdered By: Virginie Aguillon on 02-16-2023 Thin prep Papanicolaou smear with manual screening 12-14 [facility] Basophil percentageOrdered B y: Drew Solis on 02-15-2023 Basophil percentage 3.6 mg/dL 2.5-4.9 [facility] Bilirubin [Mass/Vol] 0.20 mg/dL 0.20-1.00 [facility] Comment on above: For patients on eltr ombopag therapy, use of Dimension [place] TBIL is not recommended. Cholesterol [Mass/Vol] 196 mg/dL <200 [facility] Comment on above: <200 mg/dL Desirable 200-240 mg/dL Borderline >240 mg/dL High Risk Protein [Mass/Vol] 6.1 g/dL 6.4-8.2 [facility] Triglyceride [Mass/Vol] 141 mg/dL <199 [facility] Comment on above: The drugs N-Acetylcy steine and Metamizole may falsely depress this assay.Serum Triglycerides Reference Interval Normal <150 mg/dL Borderline high 150 - 199 mg/dL High 200 - 499 mg/dL Very High > or = 500 mg/dL Laboratory - Chemistry and C hemistry - challengeOrdered By: Drew Solis on 02-15-2023 ALP [Catalytic activity/Vol] 81 U/L 45-117 [facility] ALT [Catalytic activity/Vol] 15 U/L 13-56 [facility] Globulin (S) [Mass/Vol] 3.4 g/dL 2.2-4.2 [facility] Magnesium [Mass/Vol] 2.3 mg/dL 1.6-2.6 [facility] No Panel InformationOrdered By: Drew Solis on 02-15-2023 Thyroid Stimulating Hormone (TSH) 1.25 uIU/mL 0.358-3.74 [facility] Serum or plasma albumin angela urement (mass/volume)Ordered By: Drew Solis on 02-15-2023 Albumin [Mass/Vol] 2.7 g/dL 3.2-5.0 [facility] Serum or plasma albumin/glob ulin mass ratioOrdered By: Drew Solis on 02-15-2023 Albumin/Globulin [Mass ratio] 0.8 {ratio} 0.9-2.4 [facility] Serum or plasma cholesterol in HDL measurement (mass/volume)Ordered By: Drew Solis on 02-15-2023 Cholesterol in HDL [Mass/Vol] 92 mg/dL >40 [facility] Comment on above: The drugs N-Acetylcy steine and Metamizole may falsely depress this assay. Reference Range HDL <40 mg/dL Low HDL Cholesterol HDL >or= 60 mg/dL High HDL Cholesterol Serum or plasma cholesterol in VLDL measurement (mass/volume)Ordered By: Drew Solis on 02-15-2023 Cholesterol in VLDL [Mass/Vol] 28 mg/dL 5-40 [facility] Serum or plasma low density lipoprotein (LDL) cholesterol measurement (mass/volume)Ordered By: Drew Solis on 02-15-2023 Cholesterol in LDL [Mass/Vol] 76 mg/dL 0-130 [facility] Thin prep Papanicolaou smear with manual screeningOrdered By: Drew Solis on 02-15-2023 Thin prep Papanicolaou smear with manual screening 19 U/L 15-37 [facility] Iron measurement (mass/mass) Ordered By: Drew Solis on 02-14-2023 Iron (Unsp spec) [Mass/Mass] 23 ug/dL 50-170 [facility] Laboratory - Chemistry and C hemistry - challengeOrdered By: Jeniffer Campos on 02-14-2023 Cobalamin (Vitamin B12) [Mass/Vol] 199 pg/mL 211-911 [facility] No Panel InformationOrdered By: Drew Solis on 02-14-2023 Total Iron Binding Capacity 375 ug/dL 250-450 [facility] No Panel InformationOrdered By: Jeniffer Campos on 02-14-2023 Troponin I High Sensitivity 27 pg/mL 3.0-54.0 [facility] Comment on above: Please Note: New Sary t Units and Gender Specific Reference Ranges. For more information see Policy Stat Procedure [place] High Sensitivity Troponin (TNIH) and attachments. Serum or plasma ferritin cortney surement (mass/volume)Ordered By: Drew Solis on 02-14-2023 Ferritin [Mass/Vol] 9 ng/mL 8-252 [facility] Serum or plasma folate measu rement (mass/volume)Ordered By: Jeniffer Campos on 02-14-2023 Folate [Mass/Vol] 7.40 ng/mL 3.1-55.4 [facility] Serum or plasma iron saturat ion measurement (mass fraction)Ordered By: Drew Solis on 02-14-2023 Iron saturation [Mass fraction] 6.1 % 15.0-55.0 [facility] Absolute lymphocyte countOrd ered By: Albert Carbone on 02-13-2023 Lymphocytes Auto (Unsp spec) [#/Vol] 1.92 10*3/uL 0.83-4.51 [facility] Basophil percentageOrdered B y: Albert Carbone on 02-13-2023 Potassium [Moles/Vol] 4.1 mmol/L 3.5-5.1 [facility] Basophils/100 WBC (Bld) 0.7 % 0-1 [facility] Chloride [Moles/Vol] 106 mmol/L 98-107 [facility] Eosinophils/100 WBC (Bld) 1.9 % 0-5 [facility] Glucose [Mass/Vol] 99 mg/dL 74-106 [facility] Neutrophils (Bld) [#/Vol] 1.7 10*3/uL 2.0-7.7 [facility] Neutrophils/100 WBC (Bld) 39.8 % 47-70 [facility] Sodium [Moles/Vol] 136 mmol/L 136-145 [facility] WBC (Bld) [#/Vol] 4.2 10*3/uL 4.4-11.0 [facility] Blood erythrocytes count (nu mber/volume)Ordered By: Albert Carbone on 02-13-2023 RBC (Bld) [#/Vol] 5.13 10*6/uL 4.2-5.4 [facility] Blood hemoglobin measurement (mass/volume)Ordered By: Albert Carbone on 02-13-2023 Hemoglobin (Bld) [Mass/Vol] 12.2 g/dL 12.0-15.0 [facility] Blood lymphocytes/100 leukoc ytesOrdered By: Albert Carbone on 02-13-2023 Lymphocytes/100 WBC (Bld) 46.3 % 19-41 [facility] Blood monocytes/100 leukocyt esOrdered By: Albert Carbone on 02-13-2023 Monocytes/100 WBC (Bld) 10.8 % 0-10 [facility] Blood platelet mean volumeOr dered By: Albert Carbone on 02-13-2023 Platelet mean volume (Bld) [Entitic vol] 9.8 fL 6.2-12.0 [facility] Determination of erythrocyte mean corpuscular volume (MCV)Ordered By: Albert Carbone on 02-13-2023 MCV (RBC) [Entitic vol] 75.8 fL 81-99 [facility] Hematocrit Auto (Bld) [Volum e fraction]Ordered By: Albert Carbone on 02-13-2023 Hematocrit (Bld) [Volume fraction] 38.9 % 37-47 [facility] Laboratory - Chemistry and C hemistry - challengeOrdered By: Jeniffer Campos on 02-13-2023 Magnesium [Mass/Vol] 2.0 mg/dL 1.6-2.6 [facility] Laboratory - Chemistry and C hemistry - challengeOrdered By: Albert Carbone on 02-13-2023 CO2 [Moles/Vol] 23.0 mmol/L 21.0-32.0 [facility] Urea nitrogen/Creatinine [Mass ratio] 11.3 mg/mg 10-20 [facility] Laboratory - Drug toxicology Ordered By: Jeniffer Campos on 02-13-2023 Amphetamines Ql (U) Negative <1000 ng/mL [facility] Benzodiazepines Ql (U) Negative < 200 ng/mL [facility] Cannabinoids Screen Ql (U) Positive < 50 ng/mL [facility] Cocaine Ql (U) Negative < 300 ng/mL [facility] Opiates Ql (U) Negative < 300 ng/mL [facility] Laboratory - Hematology and Cell countsOrdered By: Albert Carbone on 02-13-2023 Erythrocyte distribution width (RBC) [Entitic vol] 47.8 fL 35.1-43.9 [facility] Erythrocyte distribution width (RBC) [Ratio] 18.0 % 11.6-14.6 [facility] Immature granulocytes/100 WBC (Bld) 0.500 % 0.0-0.9 [facility] Comment on above: IG% - Immature Granu locytes (promyelocytes, myelocytes and metamyelocytes) > 1% indicates that a LEFT SHIFT is Present. MCH (RBC) [Entitic mass] 23.8 pg 27.0-32.0 [facility] Nucleated RBC/100 WBC (Bld) [Ratio] 0 % 0-5 [facility] MCHC Auto (RBC) [Mass/Vol]Or dered By: Albert Carbone on 02-13-2023 MCHC (RBC) [Mass/Vol] 31.4 g/dL 32-36 [facility] No Panel InformationOrdered By: Jeniffer Campos on 02-13-2023 Ethyl Alcohol Level < 3.0 mg/dL [facility] Comment on above: The serum:whole bloo d ethanol ratio is approximately 1.14and varies slightly with hematocrit. Medical Alcohol reference interval and critical value innon-tolerant individuals; 50 - 100 Impairment 100 Intoxication 100 - 250 Severe Poisoning 250 - 400 Deep/possible fatal coma MDMA (Ecstasy) Screen Negative < 500 ng/mL [facility] Urine Barbiturates Screen Negative < 200 ng/mL [facility] Urine Drug Screen Comment [facility] Comment on above: CONFIRMATORY TESTING FOR ALL [...] Urine Methadone Screen Negative < 300 ng/mL [facility] No Panel InformationOrdered By: Albert Carbone on 02-13-2023 Estimated Creatinine Clearance Calc 50.85 ml/min [facility] Estimated GFR (MDRD) Amer 67 mL/min >60 [facility] Comment on above: GFR Calc Estimated GFR (MDRD) Non-Af Amer 56 mL/min >60 [facility] Comment on above: Non- GFR Calc Troponin I High Sensitivity 26 pg/mL 3.0-54.0 [facility] Comment on above: Please Note: New Sary t Units and Gender Specific Reference Ranges. For more information see Policy Stat Procedure [place] High Sensitivity Troponin (TNIH) and attachments. Platelets bldOrdered By: Didier Carbone on 02-13-2023 Platelets (Bld) [#/Vol] 237 10*3/uL 150-450 [facility] Serum or plasma calcium angela urement (mass/volume)Ordered By: Albert aCrbone on 02-13-2023 Calcium [Mass/Vol] 9.3 mg/dL 8.5-10.1 [facility] Serum or plasma creatinine m easurement (mass/volume)Ordered By: Albert Carbone on 02-13-2023 Creatinine [Mass/Vol] 1.06 mg/dL 0.55-1.02 [facility] Comment on above: The validity of the calculated GFR & GFRAA in patients over 70 years has not been determined. Clinical correlation is essential. Serum or plasma urea nitroge n measurement (mass/volume)Ordered By: Albert Carbone on 02-13-2023 Urea nitrogen [Mass/Vol] 12 mg/dL 7-18 [facility] Thin prep Papanicolaou smear with manual screeningOrdered By: Albert Carbone on 02-13-2023 Thin prep Papanicolaou smear with manual screening 7 - [facility] Urine phencyclidine (PCP) de tectionOrdered By: Jeniffer Campos on 02-13-2023 Phencyclidine Ql (U) Negative < 25 ng/mL [facility] Absolute lymphocyte countOrd ered By: Dr. Tom on 10-22-2022 Lymphocytes Auto (Unsp spec) [#/Vol] 2.07 10*3/uL 0.83-4.51 [facility] Basophil percentageOrdered B y: Dr. Tom on 10-22-2022 Basophil percentage 0-5 SEEN /hpf 0-5 [facility] Basophils/100 WBC (Bld) 0.6 % 0-1 [facility] Bilirubin [Mass/Vol] 0.30 mg/dL 0.20-1.00 [facility] Comment on above: For patients on eltr ombopag therapy, use of Dimension [place] TBIL is not recommended. Chloride [Moles/Vol] 109 mmol/L 98-107 [facility] Eosinophils/100 WBC (Bld) 2.5 % 0-5 [facility] Glucose [Mass/Vol] 106 mg/dL 74-106 [facility] Comment on above: Fasting Glucose resu lt from 100 to 125 mg/dL suggests IMPAIRED HOMEOSTASIS per A.D.A. criteria. Neutrophils (Bld) [#/Vol] 2.2 10*3/uL 2.0-7.7 [facility] Neutrophils/100 WBC (Bld) 45.8 % 47-70 [facility] Potassium [Moles/Vol] 3.8 mmol/L 3.5-5.1 [facility] Protein [Mass/Vol] 7.0 g/dL 6.4-8.2 [facility] Sodium [Moles/Vol] 139 mmol/L 136-145 [facility] WBC (Bld) [#/Vol] 4.8 10*3/uL 4.4-11.0 [facility] Bilirubin Test strip Ql (U)O rdered By: Dr. Tom on 10-22-2022 Bilirubin Ql (U) Negative Negative [facility] Blood erythrocytes count (nu mber/volume)Ordered By: Dr. Tom on 10-22-2022 RBC (Bld) [#/Vol] 4.84 10*6/uL 4.2-5.4 [facility] Blood hemoglobin measurement (mass/volume)Ordered By: Dr. Tom on 10-22-2022 Hemoglobin (Bld) [Mass/Vol] 12.2 g/dL 12.0-15.0 [facility] Blood lymphocytes/100 leukoc ytesOrdered By: Dr. Tom on 10-22-2022 Lymphocytes/100 WBC (Bld) 43.4 % 19-41 [facility] Blood monocytes/100 leukocyt esOrdered By: Dr. Tom on 10-22-2022 Monocytes/100 WBC (Bld) 7.5 % 0-10 [facility] Blood platelet mean volumeOr dered By: Dr. Tom on 10-22-2022 Platelet mean volume (Bld) [Entitic vol] 9.1 fL 6.2-12.0 [facility] Determination of erythrocyte mean corpuscular volume (MCV)Ordered By: Dr. Tom on 10-22-2022 MCV (RBC) [Entitic vol] 77.9 fL 81-99 [facility] Hematocrit Auto (Bld) [Volum e fraction]Ordered By: Dr. Tom on 10-22-2022 Hematocrit (Bld) [Volume fraction] 37.7 % 37-47 [facility] Ketones Test strip Ql (U)Ord ered By: Dr. Tom on 10-22-2022 Ketones Ql (U) Negative Negative [facility] Laboratory - Chemistry and C hemistry - challengeOrdered By: Dr. Tom on 10-22-2022 ALP [Catalytic activity/Vol] 95 U/L 45-117 [facility] ALT [Catalytic activity/Vol] 15 U/L 13-56 [facility] CO2 [Moles/Vol] 22.0 mmol/L 21.0-32.0 [facility] Globulin (S) [Mass/Vol] 3.4 g/dL 2.2-4.2 [facility] Lipase [Catalytic activity/Vol] 182 U/L 73-393 [facility] Urea nitrogen/Creatinine [Mass ratio] 15.2 mg/mg 10-20 [facility] Laboratory - Hematology and Cell countsOrdered By: Dr. Tom on 10-22-2022 Erythrocyte distribution width (RBC) [Entitic vol] 47.2 fL 35.1-43.9 [facility] Erythrocyte distribution width (RBC) [Ratio] 17.1 % 11.6-14.6 [facility] Immature granulocytes/100 WBC (Bld) 0.200 % 0.0-0.9 [facility] Comment on above: IG% - Immature Granu locytes (promyelocytes, myelocytes and metamyelocytes) > 1% indicates that a LEFT SHIFT is Present. MCH (RBC) [Entitic mass] 25.2 pg 27.0-32.0 [facility] Nucleated RBC/100 WBC (Bld) [Ratio] 0 % 0-5 [facility] MCHC Auto (RBC) [Mass/Vol]Or dered By: Dr. Tom on 10-22-2022 MCHC (RBC) [Mass/Vol] 32.4 g/dL 32-36 [facility] Mucus LM Ql (Urine sed)Order ed By: Dr. Tom on 10-22-2022 Mucus Ql (Urine sed) 0 SEEN /hpf [facility] Nitrite Test strip Ql (U)Ord ered By: Dr. Tom on 10-22-2022 Nitrite Ql (U) Negative Negative [facility] No Panel InformationOrdered By: Dr. Tom on 10-22-2022 Estimated Creatinine Clearance Calc 55.16 ml/min [facility] Estimated GFR (MDRD) Amer 73 mL/min >60 [facility] Comment on above: GFR Calc Estimated GFR (MDRD) Non-Af Amer 61 mL/min >60 [facility] Comment on above: Non- GFR Calc Troponin I High Sensitivity 27 pg/mL 3.0-54.0 [facility] Comment on above: Please Note: New Sary t Units and Gender Specific Reference Ranges. For more information see Policy Stat Procedure [place] High Sensitivity Troponin (TNIH) and attachments. Platelets bldOrdered By: Dr. Tom on 10-22-2022 Platelets (Bld) [#/Vol] 276 10*3/uL 150-450 [facility] Protein Test strip Ql (U)Ord ered By: Dr. Tom on 10-22-2022 Protein Ql (U) 30 mg/dl Negative [facility] Serum or plasma albumin angela urement (mass/volume)Ordered By: Dr. Tom on 10-22-2022 Albumin [Mass/Vol] 3.6 g/dL 3.2-5.0 [facility] Serum or plasma albumin/glob ulin mass ratioOrdered By: Dr. Tom on 10-22-2022 Albumin/Globulin [Mass ratio] 1.1 {ratio} 0.9-2.4 [facility] Serum or plasma calcium angela urement (mass/volume)Ordered By: Dr. Tom on 10-22-2022 Calcium [Mass/Vol] 9.3 mg/dL 8.5-10.1 [facility] Serum or plasma creatinine m easurement (mass/volume)Ordered By: Dr. Tom on 10-22-2022 Creatinine [Mass/Vol] 0.99 mg/dL 0.55-1.02 [facility] Comment on above: The validity of the calculated GFR & GFRAA in patients over 70 years has not been determined. Clinical correlation is essential. Serum or plasma urea nitroge n measurement (mass/volume)Ordered By: Dr. Tom on 10-22-2022 Urea nitrogen [Mass/Vol] 15 mg/dL 7-18 [facility] Squamous epithelial cells de tection in urine sediment by light microscopyOrdered By: Dr. Tom on 10-22-2022 Epithelial cells.squamous LM Ql (Urine sed) 0-5 SEEN /hpf 5-10 [facility] Thin prep Papanicolaou smear with manual screeningOrdered By: Dr. Tom on 10-22-2022 Thin prep Papanicolaou smear with manual screening 16 U/L 15-37 [facility] Thin prep Papanicolaou smear with manual screening 8 5-15 [facility] Urine blood detectionOrdered By: Dr. Tom on 10-22-2022 RBC Ql (U) 150 /ul Negative [facility] RBC Ql (U) 0 SEEN /hpf 0-5 [facility] Urine clarityOrdered By: Dr. Tom on 10-22-2022 Clarity (U) Clear Clear [facility] Urine color determinationOrd ered By: Dr. Tom on 10-22-2022 Color (U) YELLOW Yellow [facility] Urine glucose detectionOrder ed By: Dr. Tom on 10-22-2022 Glucose Ql (U) Normal mg/dl Normal [facility] Urine leukocyte esterase det ection by dipstickOrdered By: Dr. Tom on 10-22-2022 Leukocyte esterase Test strip Ql (U) 500 /ul Negative [facility] Urine pHOrdered By: Dr. Porfirio li on 10-22-2022 pH (U) 7.0 [pH] 5.0 - 8.0 [facility] Urine sediment bacteria coun t by microscopy (number/high power field)Ordered By: Dr. Tom on 10-22-2022 Bacteria LM.HPF (Urine sed) [#/Area] 0 /[HPF] None Seen [facility] Urine specific gravity measu rementOrdered By: Dr. Tom on 10-22-2022 Specific gravity (U) [Rel density] 1.015 1.002-1.03 0 [facility] Urobilinogen Auto test strip Ql (U)Ordered By: Dr. Tom on 10-22-2022 Urobilinogen Ql (U) Normal mg/dl Normal [facility] Absolute lymphocyte countOrd ered By: Dr. Houston on 07-07-2022 Lymphocytes Auto (Unsp spec) [#/Vol] 2.12 10*3/uL 0.83-4.51 [facility] Basophil percentageOrdered B y: Dr. Houston on 07-07-2022 Basophils/100 WBC (Bld) 0.6 % 0-1 [facility] Bilirubin [Mass/Vol] 0.40 mg/dL 0.20-1.00 [facility] Comment on above: For patients on eltr ombopag therapy, use of Dimension [place] TBIL is not recommended. Chloride [Moles/Vol] 101 mmol/L 98-107 [facility] Eosinophils/100 WBC (Bld) 1.5 % 0-5 [facility] Glucose [Mass/Vol] 100 mg/dL 74-106 [facility] Comment on above: Fasting Glucose resu lt from 100 to 125 mg/dL suggests IMPAIRED HOMEOSTASIS per A.D.A. criteria. Neutrophils (Bld) [#/Vol] 2.2 10*3/uL 2.0-7.7 [facility] Neutrophils/100 WBC (Bld) 45.8 % 47-70 [facility] Potassium [Moles/Vol] 3.9 mmol/L 3.5-5.1 [facility] Protein [Mass/Vol] 7.0 g/dL 6.4-8.2 [facility] Sodium [Moles/Vol] 134 mmol/L 136-145 [facility] WBC (Bld) [#/Vol] 4.7 10*3/uL 4.4-11.0 [facility] Blood erythrocytes count (nu mber/volume)Ordered By: Dr. Houston on 07-07-2022 RBC (Bld) [#/Vol] 4.94 10*6/uL 4.2-5.4 [facility] Blood hemoglobin measurement (mass/volume)Ordered By: Dr. Houston on 07-07-2022 Hemoglobin (Bld) [Mass/Vol] 13.1 g/dL 12.0-15.0 [facility] Blood lymphocytes/100 leukoc ytesOrdered By: Dr. Houston on 07-07-2022 Lymphocytes/100 WBC (Bld) 44.9 % 19-41 [facility] Blood monocytes/100 leukocyt esOrdered By: Dr. Houston on 07-07-2022 Monocytes/100 WBC (Bld) 7.0 % 0-10 [facility] Blood platelet mean volumeOr dered By: Dr. Houston on 07-07-2022 Platelet mean volume (Bld) [Entitic vol] 8.9 fL 6.2-12.0 [facility] Determination of erythrocyte mean corpuscular volume (MCV)Ordered By: Dr. Houston on 07-07-2022 MCV (RBC) [Entitic vol] 80.8 fL 81-99 [facility] Hematocrit Auto (Bld) [Volum e fraction]Ordered By: Dr. Houston on 07-07-2022 Hematocrit (Bld) [Volume fraction] 39.9 % 37-47 [facility] Laboratory - Chemistry and C hemistry - challengeOrdered By: Dr. Houston on 07-07-2022 ALP [Catalytic activity/Vol] 92 U/L 45-117 [facility] ALT [Catalytic activity/Vol] 16 U/L 13-56 [facility] CO2 [Moles/Vol] 24.0 mmol/L 21.0-32.0 [facility] Globulin (S) [Mass/Vol] 3.7 g/dL 2.2-4.2 [facility] Urea nitrogen/Creatinine [Mass ratio] 15.9 mg/mg 10-20 [facility] Laboratory - Hematology and Cell countsOrdered By: Dr. Houston on 07-07-2022 Erythrocyte distribution width (RBC) [Entitic vol] 50.6 fL 35.1-43.9 [facility] Erythrocyte distribution width (RBC) [Ratio] 17.2 % 11.6-14.6 [facility] Immature granulocytes/100 WBC (Bld) 0.200 % 0.0-0.9 [facility] Comment on above: IG% - Immature Granu locytes (promyelocytes, myelocytes and metamyelocytes) > 1% indicates that a LEFT SHIFT is Present. MCH (RBC) [Entitic mass] 26.5 pg 27.0-32.0 [facility] Nucleated RBC/100 WBC (Bld) [Ratio] 0 % 0-5 [facility] MCHC Auto (RBC) [Mass/Vol]Or dered By: Dr. Houston on 07-07-2022 MCHC (RBC) [Mass/Vol] 32.8 g/dL 32-36 [facility] No Panel InformationOrdered By: Dr. Houston on 07-07-2022 Estimated Creatinine Clearance Calc 48.32 ml/min [facility] Estimated GFR (MDRD) Amer 63 mL/min >60 [facility] Comment on above: GFR Calc Estimated GFR (MDRD) Non-Af Amer 52 mL/min >60 [facility] Comment on above: Non- GFR Calc Troponin I High Sensitivity 29 pg/mL 3.0-54.0 [facility] Comment on above: Please Note: New Sary t Units and Gender Specific Reference Ranges. For more information see Policy Stat Procedure [place] High Sensitivity Troponin (TNIH) and attachments. Platelets bldOrdered By: Dr. Houston on 07-07-2022 Platelets (Bld) [#/Vol] 282 10*3/uL 150-450 [facility] Serum or plasma albumin angela urement (mass/volume)Ordered By: Dr. Houston on 07-07-2022 Albumin [Mass/Vol] 3.3 g/dL 3.2-5.0 [facility] Serum or plasma albumin/glob ulin mass ratioOrdered By: Dr. Houston on 07-07-2022 Albumin/Globulin [Mass ratio] 0.9 {ratio} 0.9-2.4 [facility] Serum or plasma calcium angela urement (mass/volume)Ordered By: Dr. Houston on 07-07-2022 Calcium [Mass/Vol] 9.5 mg/dL 8.5-10.1 [facility] Serum or plasma creatinine m easurement (mass/volume)Ordered By: Dr. Houston on 07-07-2022 Creatinine [Mass/Vol] 1.13 mg/dL 0.55-1.02 [facility] Comment on above: The validity of the calculated GFR & GFRAA in patients over 70 years has not been determined. Clinical correlation is essential. Serum or plasma urea nitroge n measurement (mass/volume)Ordered By: Dr. Houston on 07-07-2022 Urea nitrogen [Mass/Vol] 18 mg/dL 7-18 [facility] Thin prep Papanicolaou smear with manual screeningOrdered By: Dr. Houston on 07-07-2022 Thin prep Papanicolaou smear with manual screening 17 U/L 15-37 [facility] Thin prep Papanicolaou smear with manual screening 9 5-15 [facility] Basic metabolic 2000 panelon 01-01-2022 Anion gap [Moles/Vol] 10 mmol/L [facility] Calcium [Mass/Vol] 8.9 mg/dL 8.4 - 10. 4 mg/dL [facility] Chloride [Moles/Vol] 110 mmol/L 97 - 11 1 mmol/L [facility] CO2 [Moles/Vol] 22 mmol/L 21 - 30 mmol/L [facility] Creatinine [Mass/Vol] 0.90 mg/dL 0.50 - 1.10 mg/dL [facility] GFR/1.73 sq M.predicted MDRD (S/P/Bld) [Vol rate/Area] 73 mL/min/{1.73_m2} >=60 mL/min/1.7 3sqm [facility] Comment on above: 2020 CKD EPI [...] Inclusion of Race in Diagnosing Kidney Disease. [place] Journal of Kidney Diseases 202;79(2):268-88.e1. 2. N Engl J Med 2020 Vol. 385 Issue 19 Pages 7010-6120 Glucose [Mass/Vol] 98 mg/dL 80 - 116 [...] 12-31-2021 Anion gap [Moles/Vol] 12 mmol/L [facility] Calcium [Mass/Vol] 9.3 mg/dL 8.4 - 10. 4 mg/dL [facility] Chloride [Moles/Vol] 110 mmol/L 97 - 11 1 mmol/L [facility] CO2 [Moles/Vol] 20 mmol/L Low 21 - 30 mmol/L [facility] Creatinine [Mass/Vol] 0.96 mg/dL 0.50 - 1.10 mg/dL [facility] GFR/1.73 sq M.predicted MDRD (S/P/Bld) [Vol rate/Area] 67 mL/min/{1.73_m2} >=60 mL/min/1.7 3sqm [facility] Comment on above: 2020 CKD EPI Equatio n using Creatinine without Race Comment: Estimated glomerular filtration rate (eGFR) is calculated without a race coefficient. Values should be interpreted in the context of the patient's full clinical presentation. Reference: 1. Chas C, Vic M, Anastasia IMN, et al.. A Unifying Approach for GFR Estimation: Recommendations of the NKF-ASN Task Force on Reassessing the Inclusion of Race in Diagnosing Kidney Disease. [place] Journal of Kidney Diseases 202;79(2):268-88.e1. 2. N Engl J Med 1 Vol. 385 Issue 19 Pages 9472-2025 Glucose [Mass/Vol] 115 mg/dL 80 - 116 [...] mg/dL [facility] MANUAL DIFF AND MORPHon - Cells Counted Total (Bld) [#] [facility] Microcytes Ql (Bld) Slight [facility] Ovalocytes LM Ql (Bld) [facility] RBC.hypochromic/100 RBC Auto (Bld) Slight [facility] Schistocytes LM Ql (Bld) Few [facility] Target cells LM Ql (Bld) Few [facility] No Panel InformationOrdered By: Анна Kwan on 12-31-2021 [facility] Basic metabolic 2000 panelon 12-30-2021 Anion gap [Moles/Vol] 14 mmol/L [facility] Calcium [Mass/Vol] 9.5 mg/dL 8.4 - 10. 4 mg/dL [facility] Chloride [Moles/Vol] 107 mmol/L 97 - 11 1 mmol/L [facility] CO2 [Moles/Vol] 21 mmol/L 21 - 30 mmol/L [facility] Creatinine [Mass/Vol] 0.85 mg/dL 0.50 - 1.10 mg/dL [facility] GFR/1.73 sq M.predicted MDRD (S/P/Bld) [Vol rate/Area] 78 mL/min/{1.73_m2} >=60 mL/min/1.7 3sqm [facility] Comment on above: 2020 CKD EPI Equatio n using Creatinine without Race Comment: Estimated glomerular filtration rate (eGFR) is calculated without a race coefficient. Values should be interpreted in the context of the patient's full clinical presentation. Reference: 1. Vic Estrella, Anastasia MIN, et al.. A Unifying Approach for GFR Estimation: Recommendations of the NKF-ASN Task Force on Reassessing the Inclusion of Race in Diagnosing Kidney Disease. [place] Journal of Kidney Diseases 202;79(2):268-88.e1. 2. N Engl J Med 2020 Vol. 385 Issue 19 Pages 5075-1565 Glucose [Mass/Vol] 100 mg/dL 80 - 116 [...] K/uL [facility] RBC (Bld) [#/Vol] 4.09 10*6/uL [facility] WBC (Bld) [#/Vol] 4.4 10*3/uL Low 4.5 - 11.5 K/uL [facility] EKG 12 LEAD - PERFORMon 12-02 Diagnosis Normal sinus rhythm Minimal voltage criteria for LVH, may be normal variant Borderline When compared with ECG of 13-JUN-2019 21:40, No significant change was found Confirmed by YUMIKO LUGO ([id number]) on 12/30/2021 7:42:32 PM [facility] P wave Atrium by EKG 95 BPM [facility] P wave axis 58 degrees [facility] P-R Interval 142 ms [facility] Q-T interval 372 ms [facility] Q-T interval corrected 467 ms [facility] QRS axis -2 degrees [facility] QRS duration 70 ms [facility] T wave axis 56 degrees [facility] MAGNESIUMon 12-30-2021 Interpretation and review of laboratory results Normal [facility] Magnesium [Mass/Vol] 1.9 mg/dL 1.6 - 2 .8 mg/dL [facility] MANUAL DIFF AND MORPHon 12-02 Cells Counted Total (Bld) [#] [facility] Microcytes Ql (Bld) Slight [facility] Ovalocytes LM Ql (Bld) Few [facility] Polychromasia LM Ql (Bld) Slight [facility] [...] 12-29-2021 Ferritin [Mass/Vol] 10.6 ng/mL 10.3 - 219.0 ng/mL [facility] Interpretation and review of laboratory [...] 12-28-2021 Anion gap [Moles/Vol] 17 mmol/L [facility] Calcium [Mass/Vol] 9.3 mg/dL 8.4 - 10. 4 mg/dL [facility] Chloride [Moles/Vol] 103 mmol/L 97 - 11 1 mmol/L [facility] CO2 [Moles/Vol] 17 mmol/L Low 21 - 30 mmol/L [facility] Creatinine [Mass/Vol] 1.13 mg/dL High 0.50 - 1.10 mg/dL [facility] GFR/1.73 sq M.predicted MDRD (S/P/Bld) [Vol rate/Area] 55 mL/min/{1.73_m2} Low >=60 mL/min/1.7 3sqm [facility] Comment on above: 2020 CKD EPI Equatio n using Creatinine without Race Comment: Estimated glomerular filtration rate (eGFR) is calculated without a race coefficient. Values should be interpreted in the context of the patient's full clinical presentation. Reference: 1. Chas Brito, Vic Mccain, Anastasia MIN, et al.. A Unifying Approach for GFR Estimation: Recommendations of the NKF-ASN Task Force on Reassessing the Inclusion of Race in Diagnosing Kidney Disease. [place] Journal of Kidney Diseases 202;79(2):268-88.e1. 2. N Engl J Med 2020 Vol. 385 Issue 19 Pages 9474-5786 Glucose [Mass/Vol] 112 mg/dL 80 - 116 mg/dL [facility] Interpretation and review of laboratory results Abnormal [facility] Potassium [Moles/Vol] 4.7 mmol/L 3.3 - 5.3 mmol/L [facility] Comment on above: Hemolysis present Sodium [Moles/Vol] 132 mmol/L Low 135 - 148 mmol/L [facility] Urea nitrogen [Mass/Vol] 17 mg/dL 8 - 22 mg/dL [facility] CBC WITH DIFFERENTIALOrdered By: Nicol Duffy on 12-28-2021 Basophils (Bld) [#/Vol] 0.02 [...] [#/Vol] 2.42 10*3/uL 1.50 - 8.00 K/uL [facility] Neutrophils/100 WBC (Bld) 55.8 % 31.0 - 76.0 % [facility] Platelet mean volume (Bld) [Entitic vol] 8.2 fL 7.5 - 11.2 fL [facility] Platelets (Bld) [#/Vol] 251 10*3/uL 150 - 400 K/uL [facility] RBC (Bld) [#/Vol] 4.20 10*6/uL [facility] WBC (Bld) [#/Vol] 4.3 10*3/uL Low 4.5 - 11.5 K/uL [facility] GOLD TOP - SST TUBE, BLOODon 12-28-2021 [facility] HE[facility]IC FUNCTION PANELon Albumin [Mass/Vol] 3.3 g/dL Low 3.4 - 5.1 g/dL [facility] ALP [Catalytic activity/Vol] 78 U/L [facility] ALT [Catalytic activity/Vol] 13 U/L [facility] AST [Catalytic activity/Vol] 21 U/L [facility] Comment on above: Hemolysis present Bilirubin [Mass/Vol] 0.8 mg/dL 0.1 - 1 .5 mg/dL [facility] Bilirubin.direct [Mass/Vol] 0.30 mg/dL 0.10 - 0.30 mg/dL [facility] Interpretation and review of laboratory results Abnormal [facility] Protein [Mass/Vol] 5.7 g/dL 5.7 - 8.1 g/dL [facility] LIPASEon 12-28-2021 Interpretation and review of laboratory results Normal [facility] Lipase [Catalytic activity/Vol] 23 U/L <128 IU/L [facility] POTASSIUM, WHOLE BLOODOrdere d By: Razia De Anda on 12-28-2021 Interpretation and review of laboratory results Normal [facility] Potassium [Moles/Vol] 3.7 mmol/L 3.3 - 5.3 mmol/L [facility] TROPONIN Ion 12-28-2021 Interpretation and review of laboratory results Normal [facility] Troponin I.cardiac DL <= 0.01 ng/mL [Mass/Vol] ng/mL <0.120 ng/mL [facility] Comment on above: Range <=0.04 ng/mL: Negative [...] injury. Interpretation: Clinical and laboratory correlation recommended. [facility] DRUGUon 07-05-2019 Drug Screen Urine Positive [facility]) Comment on above: Performed By: #### D RUGU #### [address] [address] Drug Screen Urine Interp Positive [facility]) Comment on above: Performed By: #### D RUGU #### [address] [address] U pH Drug Scrn 6.0 Normal 5.0-8.0 [facility]) Comment on above: Performed By: #### D RUGU #### [address] [address] U Specific Murdo Drg Scrn 1.030 Normal 1.005-1.03 0 [facility]) Comment on above: Performed By: #### D RUGU #### [address] [address] Urine Drugs screened: See Below Normal [facility]) Comment on above: Result Comment: This drug [...] MEDICAL PURPOSES ONLY. Performed By: #### D MARTY #### [facility] [address] [place] [address] .Auto Diffon 06-13-2019 Ammonia (P) [Mass/Vol] 0.30 10 3/mcL Normal 0.15-1.00 [facility] ([place]) Comment on above: Performed By: #### WILL CARRINGTON ANEU #### [address] [address] Basophils (Bld) [#/Vol] 0.00 10 3/mcL Normal 0.00-0.19 [facility] [place] Comment on above: Performed By: #### WILL CARRINGTON ANEU #### [address] [address] Basophils/100 WBC (Bld) 0.8 % Normal 0.0-2.5 [facility] ([place] Comment on above: Performed By: #### WILL CARRINGTON ANEU #### [address] [address] Eosinophils (Bld) [#/Vol] 0.10 10 3/mcL Normal 0.00-0.40 [facility] ([place] Comment on above: Performed By: ###WILL NO, ANEU #### [address] [address] Eosinophils/100 WBC (Bld) 3.4 % Normal 0.0-7.0 [facility] ([place] Comment on above: Performed By: #### WILL CARRINGTON ANEU #### [address] [address] Lymphocytes (Bld) [#/Vol] 1.60 10 3/mcL Normal 0.77-3.85 [facility] ([place] Comment on above: Performed By: #### WILL CARRINGTON, ANEU #### [address] [address] Lymphocytes/100 WBC (Bld) 37.7 % Normal 10.0-50.0 [facility] ([place]) Comment on above: Performed By: #### WILL CARRINGTON, OLENA #### [place]ie [address] [address] Monocytes/100 WBC (Bld) 8.0 % Normal 1.7-13.0 [facility] ([place] Comment on above: Performed By: #### WILL CARRINGTON, OLENA #### [place] [address] [address] Neutrophils/100 WBC (Bld) 50.1 % Normal 37.0-80.0 [facility] ([place] Comment on above: Performed By: #### WILL CARRINGTON, OLENA #### [place] [address] [address] .NEUABSon 06-13-2019 Neutrophils (Bld) [#/Vol] 2.10 10 3/mcL Low 2.85-6.16 [facility] ([place]) Comment on above: Performed By: #### WILL CARRINGTON ANEU #### [address] [address] CBCon 06-13-2019 Erythrocyte distribution width (RBC) [Ratio] 20.2 % High 11.5-14.5 [facility] ([place]) Comment on above: Performed By: #### WILL CARRINGTON, ANEU #### [place] [address] [address] Hematocrit (Bld) [Volume fraction] 33.7 % Low 37.0-47.0 [facility] ([place] Comment on above: Performed By: #### WILL CARRINGTON, ANEU #### [place] [address] [address] Hemoglobin (Bld) [Mass/Vol] 10.7 G/dL Low 12.0-16.0 [facility] ([place]) Comment on above: Performed By: #### WILL CARRINGTON, ANEU #### [address] [address] MCH (RBC) [Entitic mass] 24.6 pg Low 27.0-31.2 [facility] ([place] Comment on above: Performed By: #### WILL CARRINGTON, ANEU #### [address] [address] MCHC (RBC) [Mass/Vol] 31.8 G/dL Low 33.0-37.0 [facility] ([place]) Comment on above: Performed By: #### WILL CARRINGTON, ANEU #### [address] [address] MCV (RBC) [Entitic vol] 77.3 fL Low 80.0-94.0 [facility] ([place] Comment on above: Performed By: #### WILL CARRINGTON, ANEU #### [address] [address] Platelet mean volume (Bld) [Entitic vol] 7.1 fL Low 7.4-10.4 [facility] ([place] Comment on above: Performed By: #### C WILL MCLAUGHLIN, ANEU #### [address] [address] Platelets (Bld) [#/Vol] 316 10 3/mcL Normal 130-400 [facility] ([place]) Comment on above: Performed By: #### WILL CARRINGTON, ANEU #### [address] [address] RBC (Bld) [#/Vol] 4.35 10 6/mcL Normal 4.20-5.40 [facility] ([place]) Comment on above: Performed By: #### WILL CARRINGTON, ANEU #### [address] [address] WBC (Bld) [#/Vol] 4.20 10 3/mcL Low 4.60-10.80 [facility] ([place]) Comment on above: Performed By: #### WILL CARRINGTON, ANEU #### [address] [address] Vital Signs Date Time Vital Sign Value Performing Clinician Facility 11-16-2023 18:19-0400 Body temperature 97.8 [degF] [facility] 11-16-2023 18:19-0400 Diastolic blood pressure 75 mm[Hg] [facility] 11-16-2023 18:19-0400 Heart rate 81 /min [facility] 11-16-2023 18:19-0400 Respiratory rate 16 /min [facility] 11-16-2023 18:19-0400 SaO2% (BldA) [Mass fraction] 96 % [facility] 11-16-2023 18:19-0400 Systolic blood pressure 117 mm[Hg] [facility] 11-16-2023 13:37-0400 Body height 167.64 cm [facility] 11-16-2023 13:37-0400 Body mass index (BMI) [Ratio] 24.2 kg/m2 [facility] 11-16-2023 13:37-0400 Body weight 68.03 kg [facility] 03-23-2023 21:05-0400 Diastolic blood pressure 87 mm[Hg] No Primary Care Physician [facility] 03-23-2023 21:05-0400 Heart rate 70 /min No Primary Care Physician [facility] 03-23-2023 21:05-0400 Respiratory rate 16 /min No Primary Care Physician [facility] 03-23-2023 21:05-0400 SaO2% (BldA) [Mass fraction] 100 % No Primary Care Physician [facility] 03-23-2023 21:05-0400 Systolic blood pressure 133 mm[Hg] No Primary Care Physician [facility] 03-23-2023 18:25-0400 Body temperature 98.1 [degF] No Primary Care Physician [facility] 03-23-2023 16:26-0400 Body height 167.64 cm No Primary Care Physician [facility] 03-23-2023 16:26-0400 Body mass index (BMI) [Ratio] 26 kg/m2 No Primary Care Physician [facility] 03-23-2023 16:26-0400 Body weight 73.2 kg No Primary Care Physician [facility] 03-09-2023 09:07-0400 Body height 167.6 cm [facility] 03-09-2023 09:07-0400 Body mass index (BMI) [Ratio] 26.47 kg/m2 Hilton Johnson MD [facility] 03-09-2023 09:07-0400 Body temperature 97.9 [degF] Hilton Johnson [facility] 03-09-2023 09:07-0400 Body weight 74.39 kg Hilton Johnson [facility] 03-09-2023 09:07-0400 Diastolic blood pressure 66 mm[Hg] Hilton Johnson MD Work Phone: [facility] 03-09-2023 09:07-0400 Heart rate 76 /min Hilton Johnson MD Work Phone: [facility] 03-09-2023 09:07-0400 Systolic blood pressure 116 mm[Hg] Hilton Johnson MD Work Phone: [facility] 02-16-2023 09:23-0400 Body temperature 97.9 [degF] No Primary Care Physician [facility] 02-16-2023 09:23-0400 Diastolic blood pressure 73 mm[Hg] No Primary Care Physician [facility] 02-16-2023 09:23-0400 Heart rate 73 /min No Primary Care Physician [facility] 02-16-2023 09:23-0400 Respiratory rate 16 /min No Primary Care Physician [facility] 02-16-2023 09:23-0400 SaO2% (BldA) [Mass fraction] 100 % No Primary Care Physician [facility] 02-16-2023 09:23-0400 Systolic blood pressure 119 mm[Hg] No Primary Care Physician [facility] 02-16-2023 03:22-0400 Body mass index (BMI) [Ratio] 27.7 kg/m2 No Primary Care Physician [facility] 02-16-2023 03:22-0400 Body weight 77.9 kg No Primary Care Physician [facility] 02-14-2023 10:27-0400 Body height 167.64 cm No Primary Care Physician [facility] 02-13-2023 20:55-0400 Body temperature 96.8 [degF] [facility] 02-13-2023 20:55-0400 Diastolic blood pressure 80 mm[Hg] [facility] 02-13-2023 20:55-0400 Heart rate 82 /min [facility] 02-13-2023 20:55-0400 Respiratory rate 18 /min [facility] 02-13-2023 20:55-0400 SaO2% (BldA) [Mass fraction] 98 % [facility] 02-13-2023 20:55-0400 Systolic blood pressure 122 mm[Hg] [facility] 02-13-2023 19:21-0400 Body height 167.64 cm [facility] 02-13-2023 19:21-0400 Body mass index (BMI) [Ratio] 27.6 kg/m2 [facility] 02-13-2023 19:21-0400 Body weight 77.6 kg [facility] 10-22-2022 13:13-0400 Diastolic blood pressure 84 mm[Hg] [facility] 10-22-2022 13:13-0400 Heart rate 88 /min [facility] 10-22-2022 13:13-0400 Respiratory rate 16 /min [facility] 10-22-2022 13:13-0400 SaO2% (BldA) [Mass fraction] 100 % [facility] 10-22-2022 13:13-0400 Systolic blood pressure 126 mm[Hg] [facility] 10-22-2022 11:50-0400 Body mass index (BMI) [Ratio] 27.4 kg/m2 [facility] 10-22-2022 11:50-0400 Body weight 77.1 kg [facility] 10-22-2022 10:07-0400 Body height 167.64 cm [facility] 10-22-2022 10:07-0400 Body temperature 97.9 [degF] [facility] 10-09-2022 17:22-0500 Body height 167.64 cm [facility] 10-09-2022 17:22-0500 Body mass index (BMI) [Ratio] 28.2 kg/m2 [facility] 10-09-2022 17:22-0500 Body temperature 98.6 [degF] [facility] 10-09-2022 17:22-0500 Body weight 79.37 kg [facility] 10-09-2022 17:22-0500 Diastolic blood pressure 79 mm[Hg] [facility] 10-09-2022 17:22-0500 Heart rate 110 /min [facility] 10-09-2022 17:22-0500 Respiratory rate 18 /min [facility] 10-09-2022 17:22-0500 SaO2% (BldA) [Mass fraction] 99 % [facility] 10-09-2022 17:22-0500 Systolic blood pressure 110 mm[Hg] [facility] 07-07-2022 15:21-0500 Body temperature 98 [degF] [facility] 07-07-2022 15:21-0500 Diastolic blood pressure 87 mm[Hg] [facility] 07-07-2022 15:21-0500 Heart rate 85 /min [facility] 07-07-2022 15:21-0500 Respiratory rate 16 /min [facility] 07-07-2022 15:21-0500 SaO2% (BldA) [Mass fraction] 100 % [facility] 07-07-2022 15:21-0500 Systolic blood pressure 114 mm[Hg] [facility] 07-07-2022 12:17-0500 Body height 167.64 cm [facility] Work Phone: 07-07-2022 12:17-0500 Body mass index (BMI) [Ratio] 28.4 kg/m2 [facility] 07-07-2022 12:17-0500 Body weight 79.83 kg [facility] 01-01-2022 06:00-0400 Body temperature 97.59 [degF] Wayne Benton MD Work Phone: [facility] 01-01-2022 06:00-0400 Diastolic blood pressure 84 mm[Hg] Wayne Benton MD Work Phone: [facility] 01-01-2022 06:00-0400 Heart rate 76 /min Wayne Benton MD Work Phone: [facility] 01-01-2022 06:00-0400 Respiratory rate 18 /min Wayne Benton MD Work Phone: [facility] 01-01-2022 06:00-0400 SaO2% (BldA) [Mass fraction] 100 % Wayne Benton MD Work Phone: [facility] 01-01-2022 06:00-0400 Systolic blood pressure 137 mm[Hg] Wayne Benton MD Work Phone: [facility] 12-30-2021 20:07-0400 Heart rate 95 /min Wanye Benton MD Work Phone: [facility] 12-29-2021 17:59-0400 Body height 167.6 cm Wayne Benton MD Work Phone: [facility] 12-29-2021 17:59-0400 Body mass index (BMI) [Ratio] 31.05 kg/m2 Wayne Benton MD Work Phone: [facility] 12-29-2021 17:59-0400 Body weight 87.27 kg Wayne Benton MD Work Phone: [facility] Encounters Encounter Date Encounter Type Care Provider Facility Start: 04-26-2025 ambulatory No Primary Car e Physician Facility:[facility] Start: 03-27-2025 End: 03-27-2025 ambulatory Stoney Chi Tristan Facility:[facility] Start: 03-05-2025 End: 03-05-2025 ambulatory No Primary Care Physician Facility:[facility] Start: 03-05-2025 End: 03-05-2025 ambulatory No Primary Care Physician Facility:[facility] Start: 01-26-2025 ambulatory Virginie Aguillon [facility] Start: 01-26-2025 End: 01-27-2025 Evaluation and management of inpatient Gila Reeves Facility:[facility] Start: 01-25-2025 [facility] Start: 12-15-2024 End: 12-15-2024 ambulatory Stoney Chi Tristan Facility:[facility] Start: 10-10-2024 End: 10-10-2024 ambulatory Stoney Chi Tristan Facility:[facility] Start: 08-30-2024 End: 08-30-2024 ambulatory Stoney Chi Tristan Facility:[facility] Start: 08-26-2024 End: 08-26-2024 Emergency department patient visit Stoney Chi Tristan Facility:[facility] Start: 08-22-2024 End: 08-22-2024 ambulatory Stoney Chi Tristan [facility] Start: 07-20-2024 End: 07-20-2024 ambulatory Stoney Chi Tristan Facility:[facility] Start: 07-19-2024 End: 07-19-2024 ambulatory Stoney Chi Tristan Facility:[facility] Start: 06-08-2024 End: 06-08-2024 ambulatory BUNNY YO MD Facility:[facility] Start: 06-08-2024 End: 06-08-2024 Patient encounter procedure BUNNY YO MD [facility] Start: 02-08-2024 End: 02-18-2024 Refill Hilton Johnson MD Work Phone: [facility] Comment on above: Refill Refill; Reference 99 Start: 01-21-2024 End: 01-21-2024 Telephone encounter To Be Assigned [facility] Comment on above: Update Start: 01-05-2024 End: 01-06-2024 Refill Hilton Johnson MD Work Phone: [facility] Comment on above: Refill Start: 12-21-2023 End: 12-23-2023 Refill Hilton Johnson MD Work Phone: [facility] Comment on above: Refill Start: 12-01-2023 Emergency department patient visit JAENA QUINTANA Facility:[facility] Start: 11-24-2023 Refill Hilton Johnson MD Work Phone: [facility] Comment on above: Refill Start: 11-16-2023 End: 11-16-2023 Emergency department patient visit [facility] Work Phone: Start: 11-12-2023 Letter encounter Patrizia Jerry [facility] Start: 10-25-2023 Refill Hilton Johnson MD Other Phone: [facility] Comment on above: Refill Start: 05-28-2023 Telephone encounter Hilton smiley MD Work Phone: [facility] Comment on above: Medical Record Revie w Start: 03-23-2023 End: 03-23-2023 Emergency department patient visit No Primary Care Physician [facility] Work Phone: Start: 03-15-2023 Telephone encounter Hilton smiley MD Work Phone: [facility] Comment on above: Med Change Request Start: 03-10-2023 Telephone encounter Hilton smiley MD Work Phone: [facility] Start: 03-09-2023 End: 03-09-2023 Initial preventive medicine new patient 40-64yrs Hilton Johnson MD Work Phone: [facility] Comment on above: Routine adult health maintenance (Primary Dx); Lipid screening; 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-en-Y gastric bypass; Postoperative malabsorption; Cervical spondylosis without myelopathy; Primary osteoarthritis of right knee; Anastomotic ulcer S/P gastric bypass; Calculus of gallbladder without cholecystitis without obstruction; Generalized abdominal pain; Dizziness; Prediabetes; Body mass index (BMI) 26.0-26.9, adult Start: 03-09-2023 End: 03-09-2023 Patient encounter status Hilton Johnson MD Work Phone: [facility] Start: 03-09-2023 End: 03-09-2023 ambulatory UNKNOWN PROVIDER Facility:[facility] Start: 03-02-2023 Emergency department patient visit Rock Sharpe MD Work Phone: [facility] Comment on above: Refill Start: 03-01-2023 Registered Referred No Primary Care Physician [facility] Work Phone: Start: 02-24-2023 Telephone encounter Rock anthony MD Work Phone: [facility] Emergency Triage, Treat and Transport Comment on above: Requesting Medicatio ns Start: 02-16-2023 Non-patient / Non-visit No Sydnie Cox [facility] Physician [facility] Work Phone: Start: 02-15-2023 Non-patient / Non-visit No Sydnie [facility] Physician [facility] In[facility] Work Phone: Start: 02-15-2023 Non-patient / Non-visit No Sydnie Cox [facility] Physician [facility] Start: 02-14-2023 Non-patient / Non-visit No Sydnie Cox [facility] Physician [facility] In[facility] Work Phone: Start: 02-13-2023 End: 02-16-2023 Evaluation and management of inpatient [facility] Work Phone: Start: 02-13-2023 End: 02-16-2023 observation encounter No Primary Care Physician [facility] Work Phone: Start: 10-22-2022 End: 10-22-2022 Emergency department patient visit [facility] Start: 10-09-2022 End: 10-09-2022 Emergency department patient visit [facility] Start: 07-07-2022 End: 07-07-2022 Emergency department patient visit [facility] Start: 02-26-2022 Telephone encounter To Be Assigned [facility] Physician Referral Service Comment on above: Left Message To Call Back Start: 12-28-2021 End: 01-01-2022 Evaluation and management of inpatient Wayne Benton MD Work Phone: Inpatient 9B Comment on above: Gastrointestinal hem orrhage, unspecified gastrointestinal hemorrhage type (Primary Dx); Syncope and collapse; Peptic ulcer; 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-en-Y gastric bypass; Anastomotic ulcer; Chronic iron deficiency anemia Start: 03-05-2021 Patient encounter status [facility] Procedures Date Procedure Procedure Detail Performing Clinician [...] Phone: Start: 12-30-2021 Assay of magnesium Lacey Sai DO Work Phone: Start: 12-30-2021 Colonoscopy Wayne [...] 12-31-2031 Screening for malignant neoplasm of colon [facility] Start: 03-09-2028 Cholesterol [Mass/volume] in Serum or Plasma Cholesterol [facility] Start: 02-16-2028 Cholesterol [Mass/volume] in Serum or Plasma Cholesterol [facility] Start: 09-28-2027 Tetanus vaccination [facility] Start: 05-02-2024 Influenza vaccination Influenza Vaccine (#1) [facility] Start: 03-23-2024 Creatinine measurement Basic Metabolic Panel [facility] Start: 03-09-2024 Creatinine measurement Basic Metabolic Panel [facility] Start: 03-09-2024 Hemoglobin A1c measurement Hemoglobin A1C [facility] Start: 02-24-2024 End: 02-24-2024 Patient encounter procedure 02/24/2024 1:00 PM EDT Office Visit [place] [id number] Randall Hodgson MD [address] [place] [address] [facility] Start: 01-31-2024 Creatinine measurement Basic Metabolic Panel [facility] Start: 11-16-2023 [facility] Start: 07-05-2023 End: 07-05-2023 Patient encounter procedure 07/05/2023 11:00 AM EST Office Visit [place] [id number] Gabriel Ugarte MD [address] [place], [place] [id number] [facility] Start: 05-02-2023 Influenza vaccination Influenza Vaccine (#1) [facility] Start: 05-02-2023 End: 07-10-2023 Lipid 1996 panel - Serum or Plasma FULL LIPID PROFILE Lab Routine Hyperlipidemia, unspecified hyperlipidemia type Expected: 05/02/2023, Expires: 07/10/2023 [facility] Work Phone: Comment on above: Expected: 05/02/2023, Expires: Start: 04-02-2023 COVID-19 Vaccine () COVID-19 Vaccine () [facility] Start: 04-02-2023 Influenza vaccination Influenza Vaccine (#1) [facility] Start: 03-09-2023 End: 03-09-2023 Patient encounter procedure 03/09/2023 9:20 AM EDT Office Visit [place] [id number] Hilton Johnson MD [address] [place] [address] [facility] Start: 02-16-2023 Patient discharge [facility] Start: 02-14-2023 End: 02-15-2023 [facility] Start: 02-13-2023 Following clinical pathway protocol [facility] Start: 02-13-2023 Assessment of risk of venous thromboembolism [facility] Start: 02-13-2023 Cardiac monitoring [facility] Start: 02-13-2023 Fall prevention [facility] Start: 02-13-2023 Inhalation therapy procedure [facility] Start: 02-13-2023 Insertion of catheter into peripheral vein [facility] Start: 02-13-2023 Introduction of urinary catheter [facility] Start: 02-13-2023 Measuring intake and output [facility] Start: 02-13-2023 Oxygen therapy [facility] Start: 02-13-2023 Providing care according to standard [facility] Start: 02-13-2023 Provision of activity privileges [facility] Start: 02-13-2023 Referral to service [facility] Start: 02-13-2023 Tobacco use cessation education [facility] Start: 02-13-2023 End: 02-13-2023 [facility] Start: 02-13-2023 Verification routine [facility] Start: 02-13-2023 Admission procedure [facility] Start: 02-13-2023 [facility] Start: 02-13-2023 Patient referral to dietitian [facility] Start: 01-01-2023 Basic metabolic 2000 panel - Serum or Plasma Basic Metabolic Panel [facility] Start: 09-16-2022 Shingles (RZV) Vaccine (2 of 2) Shingles (RZV) Vaccine (2 of 2) [facility] Start: 07-07-2022 [facility] Start: 06-22-2022 Hemoglobin A1c measurement Hemoglobin A1C [facility] Start: 05-02-2022 Influenza vaccination Influenza Vaccine (#1) [facility] Start: 02-19-2022 End: 02-19-2022 Patient encounter procedure 02/19/2022 Office Visit Gastroenterology Mary Ellen Miller MD [address] [place] [address] [facility] Start: 01-14-2022 End: 01-14-2022 Patient encounter procedure 01/14/2022 Office Visit Internal Medicine Macy Smith DO [address] [place] [address] [facility] Start: 04-05-2021 COVID-19 Vaccine (3 - Booster for Pfizer series) COVID-19 Vaccine (3 - Booster for Pfizer series) [facility] Start: 12-29-2020 COVID-19 Vaccine (3 - Booster for Pfizer series) COVID-19 Vaccine (3 - Booster for Pfizer series) [facility] Start: 12-29-2020 COVID-19 Vaccine (3 - Pfizer series) COVID-19 Vaccine (3 - Pfizer series) [facility] Start: 2020 Hepatitis B (HBV) Vaccine (optional [...] occult blood in single stool specimen [facility] Start: 01-31-2010 Shingles (RZV) Vaccine (1 of 2) Shingles (RZV) Vaccine (1 of 2) [facility] Start: 01-31-2005 Screening for malignant neoplasm of colon [facility] Start: 01-31-1966 Pneumococcal vaccination Pneumococcal Vaccine(s) (1 - PCV) [facility] 25 hydroxy includes fractions if performed VITAMIN D, 25-HYDROXY Lab Routine Postoperative malabsorption Ordered: 03/09/2023 [facility] Comment on above: Ordered: 03/09/2023 Amphetamine [Mass/volume] in Urine [facility] Assay of ferritin FERRITIN Lab R outine Postoperative malabsorption Ordered: 03/09/2023 [facility] Work Phone: Comment on above: Ordered: 03/09/2023 Assay of magnesium MAGNESIUM Lab STAT Daily until discontinued starting 12/30/2021, 3 completed [facility] Comment on above: Daily until discontinued starting 2021, 3 completed Basic metabolic 2000 panel - Serum or Plasma BASIC METABOLIC PANEL Lab STAT Daily until discontinued starting 12/30/2021, 3 completed [facility] Work Phone: Comment on above: Daily until discontinued starting 2021, 3 completed Basic metabolic 2000 panel - Serum or Plasma BASIC METABOLIC PANEL Lab Routine Postoperative malabsorption Ordered: 03/09/2023 [facility] Comment on above: Ordered: 03/09/2023 Benzodiazepine measurement, urine [facility] Bilirubin measuremen t, urine [facility] Blood count complete auto&auto difrntl wbc CBC WITH DIFFERENTIAL Lab Only Routine Postoperative malabsorption 03/09/2023 10:26 AM EDT [facility] Cardiac event recording [facility] CBC W Auto Different ial panel - Blood COMPLETE BLOOD COUNT W/DIFF Lab Routine Postoperative malabsorption 03/09/2023 10:26 AM EDT [facility] Cocaine measurement, urine [facility] Cyanocobalamin vitam in b-12 VITAMIN B12 (CYANOCOBALAMIN) Lab Routine Postoperative malabsorption Ordered: 03/09/2023 [facility] Comment on above: Ordered: 03/09/2023 DARK BLUE [...] (BMI) 26.0-26.9, adult 03/09/2023 2:14 PM EDT [facility] tracking panel HEMOGLOB IN A1C Lab Routine Prediabetes 03/09/2023 10:26 AM EDT [facility] Ethanol [Mass/volume ] in Serum or Plasma [facility] End: 12-28-2021 EXTRA TUBE EXTRA TUBE Lab Only Routine One time for 1 Occurrences starting 12/28/2021 until 12/28/2021 [facility] Work Phone: Comment on above: One [...] (BMI) 26.0-26.9, adult 03/09/2023 2:14 PM EDT [facility] Hemoglobin [Presence ] in Urine [facility] Lipid 1996 panel - Serum or Plasma FULL LIPID PROFILE Lab Routine Lipid screening Ordered: 03/09/2023 [facility] Comment on above: Ordered: 03/09/2023 Measurement of 3,4-methylenedioxymetha mphetamine in urine [facility] Measurement of keton es in urine using dipstick [facility] Methadone measuremen t, urine [facility] Microscopic urinalysis [facility] Patient Education [facility] Work Phone: Patient referral [facility] Work Phone: pH of Urine [facility] pH of Urine [facility] Phencyclidine [Presence] in Urine [facility] Specific gravity of Urine [facility] Urinalysis, blood, qualitative [facility] Urine barbiturate measurement [facility] Urine cannabinoid measurement [facility] Urine dipstick for glucose [facility] Urine dipstick for leukocyte esterase [facility] Urine dipstick for nitrite [facility] Urine dipstick for protein [facility] Urine examination [facility] Urine microscopy: epithelial cells [facility] Urine Microscopy: wh ite cells [facility] Urine opiate measurement [facility] Urobilinogen [Presen ce] in Urine [facility] Immunizations Immunization Date Immunization Notes Care Provider Fa cility 03-09-2023 Hemoglobin A1C Hilton Cartwright i, MD Work Phone: [facility] 07-22-2022 zoster vaccine recombinant Rock Sharpe MD Work Phone: [facility] 06-22-2021 Hemoglobin A1C Wayne Benton MD Work Phone: [facility] 11-03-2020 Pfizer SARS-COV-2 (COVID-19) vaccine, age 12+ yrs, mRNA, spike protein, LNP, preservative free, 30 mcg/0.3mL dose (UTL=206) Wayne Benton MD Work Phone: [facility] 10-12-2020 Pfizer SARS-COV-2 (COVID-19) vaccine, age 12+ yrs, mRNA, spike protein, LNP, preservative free, 30 mcg/0.3mL dose (AVH=532) Wayne Benton MD Work Phone: [facility] 05-16-2019 hepatitis A vaccine, adult dosage Wayne Benton MD Work Phone: [facility] 09-28-2017 tetanus toxoid, reduced diphtheria toxoid, and acellular pertussis vaccine, adsorbed Wayne Benton MD Work Phone: [facility] 07-19-2015 tuberculin skin test ; purified protein derivative solution, intradermal Wayne Benton MD Work Phone: [facility] 04-19-2015 Hemoglobin A1C Hilton Cartwright i, MD Work Phone: [facility] 09-14-2013 influenza, seasonal, injectable Wayne Benton MD Work Phone: [facility] 09-14-2013 influenza virus vaccine, unspecified formulation To Assigned [facility] 11-12-2011 tetanus toxoid, reduced diphtheria toxoid, and acellular pertussis vaccine, adsorbed Wayne Benton MD Work Phone: [facility] 01-24-2003 tuberculin skin test ; purified protein derivative solution, intradermal Hilton Johnson MD Work Phone: [facility] Work Phone: 07-11-2002 influenza virus vaccine, unspecified formulation Hilton Johnson MD Work Phone: [facility] Work Phone: Payers Date Payer Category Payer Unknown [id number] 2024 Self-pay [id number] 2021 Medicare [id number] 2021 Private Health Insurance [facility] [id number] 2014 Medicaid [id number] 2014 Medicaid [id number] 2014 Unknown [id number] 1995 Worker's Compensation [id number] [id number] 1960 Unknown [id number] 1960 Unknown [id number] Medicare [id number] Medicare [id number] Medicare MEDICARE PART A B [id number] Private Health Insurance [id number] Unknown [id number] Unknown [id number] Unknown [id number] Unknown [id number] Unknown [id number] Unknown [id number] Unknown [id number] [id number] Unknown [id number] Unknown [id number] [id number] Unknown [id number] [id number] Unknown [id number] [id number] Unknown [id number] [id number] Unknown [id number] [id number] Unknown [id number] [id number] Unknown [id number] Social History Date Type Detail Facility Start: 11-24-2013 Tobacco smoking stat us [facility] Occasional tobacco smoker [facility] History of tobacco use Cigarette Smoker M [...] 12-28-2021 Exposure to SARS-CoV-2 (event) Not sure [facility] Start: 07-07-2022 End: 11-16-2023 Tobacco smoking status NHIS Unknown if ever smoked [facility] Start: 1960 Sex Assigned At Female [facility] Start: 03-09-2023 Gender identity Not on file [facility] Start: 03-09-2023 Tobacco smoking stat [facility] Ex-smoker [facility] History of tobacco use Current smoker [facility] Tobacco smoking status Smokes to bacco daily (finding) [facility] Goals Date Patient Goal Desired Activity /State Personal health goal Functional Status Date Assessment Result Facility 02-16-[address] [facility] Work Phone: Mental Status Date Assessment Result Facility 11-16-2023 Cognitive function Voice/Name [facility] Work Phone: 02-16-2023 Cognitive function Voice/Name [facility] Work Phone: 02-13-2023 Cognitive function Level Of Cons ciousness Awake;Alert;Appropriate;Follow s Commands [facility] Work Phone: Clinical Notes 12-28-2021 to 01-27-2025 Telephone Encounter - Orin Garcia - 02/18/2024 10:08 AM EDTTelephone Encounter - Orin Garcia - 02/18/2024 10:08 AM EDTTelephone Encounter - Yanelis Guerrero RN - 02/10/2024 3:37 PM EDT Note Date & Type Note Facility 01-27-2025 Note [facility] Medical Records Department [address] [place] [address] Discharge Summary 01/27/25 1151 MR#: [id number] Acct: [id number] Name: MORENA PATTON Rep #: [id number] : 1960 64 From: Lam Espinal MD PCP: Care Physician,No Primary Status:ADM IN [facility] Prov[facility] Date of Admission: 01/26/25 Date of Discharge: 01/27/25 Primary Care Physician: No Primary Care Phys Reason For Visit: LEFT UPPER QUADRANT PAIN Diagnosis Discharge Diagnosis (1) Abdominal pain: Status: Acute Code(s): R10.9 - Unspecified abdominal pain Plan 64-year-old female came to ED with shortness of breath, dizziness abdominal pain and black stool last week but it got better. History of iron deficiency anemia and requires blood transfusion. # Upper abdominal pain: Patient had CT abdomen with IV contrast which shows spleen normal size, GB surgically absent diffuse fatty atrophy of pancreas. Fatty infiltration of liver. She does not have any abnormalities suggestive or indicative of left upper quadrant abdominal pain. She had CTPA chest which shows negative for PE. Reported lungs clear. No pleural effusion. -Lipase within normal limits -Liver function within normal limits -Schedule bowel regimen to keep regular bowel movements -check gastric emptying study given patient's upper abdominal pain with frequent nausea -Supportive care -IV fluids - IV PPI 01/26: Exact cause unclear possible due to dyspepsia/poor gastric emptying/gastroparesis. 01/27: I think her pain is mostly functional. Gastric emptying study reported normal semisolid phage, emptying 55% in about 1 hour. She still complain of some left upper quadrant/left lower rib pain. I feel it might be musculoskeletal. Advised follow-up with PCP. 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 IV Benadryl half an hour before iron infusion ordered 01/27: She said after gastric bypass surgery she could not absorb oral iron therefore she is on IV iron infusion. She used to see Dr. Tilley but unclear why she is not following now. Advised to follow-up with Dr. Luke in 1 week. She had total of 2 IV iron infusion during hospital stay. # Per documentation does have a history of alcohol use disorder -Will start on CIWA but hold on coverage for now, can add if patient beginning to score concerns for impending withdrawal # History of gastric bypass surgery -Around 1999 -Noted #Mild aortic root dilation -41mm -Recommend outpt monitoring #Depression/anxiety/PTSD -Continue home medications #Hypertension - Continue home medications #DVT ppx: Lovenox subcu Discharge medication reconciliation done. Discharge follow-up instructions completed. Discharge process discussed with the patient and all questions were answered to patient's satisfaction. Follow with PCP in 1 to 2 weeks Total time spent, exact 35 minutes on discharge meds reconciliation, examination, coordination of care with nurses and ancillary staff, review of imaging and blood test and discussion with the patient on follow-up instructions. Medications at Discharge Home Medications rollator walker with seat #1 ea 10/09/20 cyanocobalamin (vitamin B-12) 1,000 mcg/mL injection solution 1,000 mcg IM Q30D #1 mL 12/20/20 syringe with needle 1 mL 25 gauge x 1 #100 ea 03/05/21 valacyclovir 500 mg tablet (Valtrex) 500 mg PO DAILY Herpes Flare #90 tabs 10/28/21 triamterene 37.5 mg-hydrochlorothiazide 25 mg capsule 1 cap PO DAILY 30 days #90 caps 02/16/23 cholecalciferol (vitamin D3) 25 mcg (1,000 unit) capsule 25 mcg PO DAILY 07/24/24 cyclobenzaprine 10 mg tablet 10 mg PO TID 07/24/24 mirtazapine 7.5 mg tablet 7.5 mg PO QHS #30 tabs 10/10/24 venlafaxine 75 mg capsule,extended release 24 hr 75 mg PO QAM #30 caps 12/15/24 albuterol sulfate 90 mcg/actuation aerosol inhaler 2 puff inhalation Q4H PRN SOB, wheezing 01/25/25 sennosides 8.6 mg-docusate sodium 50 mg tablet (Stimulant Laxative Plus) 2 tab PO BID PRN constipation #0 tabs 01/27/25 Physical Exam Narrative Seen and examined. Patient stated she has chronic iron deficiency anemia and gets iron infusion after she had Cj-en-Y bypass surgery. She cannot absorb oral iron. She also takes Benadryl half an hour before IV iron infusion because she has allergy and gets itching. No active or visible external GI bleed Physical exam General: Alert, Oriented x3, Cooperative. BMI 24.6 kg/m??? HEENT: Atraumatic, PERRLA, EOMI, Normocephalic. Oral: No Gingival or Mucosal Lesions/ Ulcerations Neck: Supple, No JVD, Negative Carotid Bruits Chest (more content not included)... [facility] 11-21-2024 Note HNO ID: [id number] Author: JESSENIA EVANS RN Service: ? Author [...] Evans RN November 21, 2024 12:03 PM [facility] 11-21-2024 Note Patient Outreach ([facility] MORENA PATTON ([id number]) 1960 F Date Time Provider Department 11/21/24 JESSENIA EVANS During your visit today, we recorded the [...] RN - Fully Assessed Reason for Visit: Manager University - Other [3602] Prescriptions as of 11/21/2024 [...] Encounter Status:Closed by JESSENIA EVANS on 11/21/24 [facility] 09-04-2024 Note HNO ID: [id number] Author: LISA MOTA MA Service: ? Author Type: Transit Police Officer Type: Progress Notes Filed: 09/04/2024 11:09 Note [...] Mota MA September 04, 2024 11:02 AM [facility] 09-04-2024 Note Patient Outreach (RAMA TNA[facility]) MORENA PATTON ([id number]) 1960 F Date Time Provider Department 09/04/24 LISA MOTA NETNAV During your visit today, we recorded the [...] Date Reviewed: 12/01/2023 Reviewed by: Gray Heck, RN - Fully Assessed Reason for Visit: Population Health Navigation Outreach [3910] Cmt: [employer] High Risk - Attempt 1 Prescriptions as [...] Encounter Status:Closed by LISA MOTA on 09/04/24 [facility] 06-09-2024 Note HNO ID: [id number] Author: RUTH RAYMUNDO MA Service: ? Author Type: Transit Police Officer Type: Progress Notes Filed: 06/09/2024 15:33 Note Text: POPULATION HEALTH NAVIGATION OUTREACH Action/FYI Patient returning my call Medication Adherence Discuss/Due for: Questionable Attribution Routed to moreno team to confirm outside care Outcome: 1st attempt - Spoke to patient Patient hung up the phone prior to discussing Attribution /PCP - called patient back, left a message informing Navigator was not a household refrigeration mechanic Reason for Outreach Med Adherence Patient Contacted: Unable or unnecessary to reach patient: Left message Navigation Signature: Ruth Raymundo MA June 09, 2024 3:30 PM [facility] 06-09-2024 Note HNO ID: [id number] Author: RUTH RAYMUNDO MA Service: ? Author Type: Transit Police Officer Type: Progress Notes Filed: 06/09/2024 14:59 Note Text: POPULATION HEALTH NAVIGATION OUTREACH Action/FYI Medication Adherence Discuss/Due for: Questionable Attribution Routed to moreno team to confirm outside care Outcome: 1st attempt - Left Message 2nd attempt - No MyChart Reason for Outreach Med Adherence Patient Contacted: Unable or unnecessary to reach patient: Left message Navigation Signature: Ruth Raymundo MA June 09, 2024 2:41 PM [facility] 06-09-2024 Note HNO ID: [id number] Author: ?, ?, ? Service: ? Author Type: ? Type: Progress Notes Filed: 06/09/2024 14:59 Note Text: Morena Patton is identified through a medication adherence outreach initiative based on pharmacy claims data from [employer] (insurer) for Statin medication(s). Patient is reviewed [...] team to confirm outside care Talia Fine (Ice Cream Dipper) [facility] 06-09-2024 Note Patient Outreach ( [facility]) MORENA PATTON ([id number]) 1960 F Date Time Provider Department 06/09/24 NO PCP [facility] During your visit today, we recorded the following information about you: Babatunde BonillaIce Cream DipperTalia Delacruz 06/09/2024 2:59 PM Signed Morena Patton is identified through a medication adherence outreach initiative based on pharmacy claims data from [employer] (insurer) for Statin medication(s). Patient is reviewed [...] team to confirm outside care Talia Fine (Ice Cream Dipper) Ruth Raymundo MA 06/09/2024 2:59 PM Signed [...] a message informing Navigator was not a household refrigeration mechanic Reason for Outreach Med Adherence Patient Contacted: Unable or unnecessary to reach patient: Left message Navigation Signature: Ruth Bush ALESHIA Raymundo June 09, 2024 3:30 PM Allergies As [...] Encounter Status:Closed by RUTH RAYMUNDO on 06/09/24 [facility] 06-08-2024 Note ORIGINAL EXAMINATION: MRI OF THE [...] Sign Date: 06/08/2024 9:05:45 AM Ordering Provider: [facility] 06-08-2024 Note ORIGINAL EXAMINATION: MRA OF THE [...] Sign Date: 06/08/2024 10:07:33 AM Ordering Provider: [facility] 06-08-2024 Note ORIGINAL EXAMINATION: MRA OF THE HEAD WITHOUT CONTRAST 06/08/2024 9:50 am TECHNIQUE: MRA of the head was performed utilizing lqzh-vd-cwpsek imaging with MIP images. No intravenous contrast [...] Sign Date: 06/08/2024 10:06:50 AM Ordering Provider: [facility] 02-28-2024 Note HNO ID: [id number] Author: KERVIN BROWN RN Service: ? Author Type: Registered Nurse Type: Progress Notes Filed: 03/22/2024 18:33 Note Text: [facility] NURSE - CHART REVIEW Provider [facility] Action 03/23/2023 presented to non [facility] ED with complaint of abdominal pain. Documentation of encounter indicates pt reported pain has been present for years. Patient declined participation in further assessment. Pt identified by name and . Reason for Review: Payor request Patient Attributed To: QAE Payer: [employer] Chart Review For: Utilization: Avoidable ED Total Patient High CostTotal Patient High Cost {HIGH COST:960381) Quality measure review Payor request for assistance Action Taken: Data submitted to shelly Brown RN February 28, 2024 7:14 AM [facility] 02-28-2024 Note Patient Outreach (AM BC) MORENA PATTON ([id number]) 1960 F Date Time Provider Department 02/28/24 KERVIN BROWN AMBG During your visit today, we recorded the following information about you: Kervin Brown RN 03/22/2024 6:33 PM Signed [facility] NURSE - CHART REVIEW Provider [facility] Action 03/23/2023 presented to non F ED with complaint of abdominal pain. Documentation of encounter indicates pt reported pain has been present for years. Patient declined participation in further assessment. Pt identified by name and . Reason for Review: Payor request Patient Attributed To: QAE Payer: [employer] Chart Review For: Utilization: Avoidable ED Total Patient High CostTotal Patient High Cost {HIGH COST:055357) Quality measure review Payor request for assistance Action Taken: Data submitted to shelly Brown RN February 28, 2024 7:14 AM [...] Encounter Status:Closed by KERVIN BROWN on 03/22/24 [facility] 02-18-2024 Telephone encounter Note Called patient, 3 identifiers obtained. Patient was unable to talk at this time. Instructed patient to call [facility] at [phone]. Asked patient to reference #99 when calling back to our office. Ok to relay message below from Anamaria Guerrero RN. [facility] 02-18-2024 Miscellaneous Notes Called patient, 3 identifiers obtained. Patient was unable to talk at this time. Instructed patient to call [facility] at [phone]. Asked patient to reference #99 when calling back to our office. Ok to relay message below from Anamaria Guerrero RN. Unable to leave a message, voicemail is full. If patient calls back please ask the need for syringes, please encourage patient to keep 02/24/24 appt. Thank you. documented in this encounter [facility] 02-10-2024 Telephone encounter Note Unable to leave a message, voicemail is full. If patient calls back please ask the need for syringes, please encourage patient to keep 02/24/24 appt. Thank you. [facility] 01-21-2024 Note Outreach Team ([phone]) Contact Details: Outbound call. Scheduling declined. Care Gaps Scheduling Medicare AWV / PCP Visit: AWV declined Eye Exam: Not due Mammogram: Due; needs order. [facility] 01-21-2024 Telephone encounter Note Outreach Team ([phone]) Contact Details: Outbound call. Scheduling declined. Care Gaps Scheduling Medicare AWV / PCP Visit: AWV declined Eye Exam: Not due Mammogram: Due; needs order. [facility] 01-21-2024 Miscellaneous Notes Outreach Team ([phone]) Contact Details: Outbound call. Scheduling declined. Care Gaps Scheduling Medicare AWV / PCP Visit: AWV declined Eye Exam: Not due Mammogram: Due; needs order. documented in this encounter [facility] 01-06-2024 Telephone encounter Note Images from the [...] (Arrive by 12:50 PM) Randall Hodgson MD [facility] 01-06-2024 Miscellaneous Notes Images from the original [...] (Arrive by 12:50 PM) Randall Hodgson MD [facility] documented in this encounter [facility] 12-23-2023 Telephone encounter Note OARRS reviewed. This is the last prescription that I will refill on behalf of this patietn [facility] 12-23-2023 Miscellaneous Notes OARRS reviewed. This is the last prescription that I will refill on behalf of this patietn documented in this encounter [facility] 11-16-2023 Discharge summary Note Date/Time November 16, 2023 2:15pm [facility] Medical Records Department [address] [place] [address] Emergency Department Summary 11/16/23 MR#: [id number] Acct: [id number] Name: MORENA PATTON Rep #:[id number] : 1960 63 From: Charly Nichols PCP: [...] approximate 4 months ago was admitted to [facility] for syncope. She had a Holter monitor [...] Reaction Status Date / Time buprenorphine [From [facility]] Allergy Rash Verified 11/16/23 13:39 NSAIDS (Non-Steroidal [...] clinician: N/A This note was generated with Davia dictation software. It may contain incorrectwords, spelling, [...] 33.4 L Lymph % (Auto) 57.5 H Delta % (Auto) 6.8 Eos % (Auto) 1.7 [...] Referrals: Alyson Gao MD [Med Staff - Video Editor] - 3-5 Days Care Physician,No Primary [Primary [...] your Primary Care Provider. Call [facility] ([phone]) or report to the closest Emergency Room. Call 911 if necessary. 11/16/231811 <Electronically signed by Charly Nichols> Cosigner Signature (if applicable): CC: No Primary Care Physician ~ Signed [facility] Work Phone: [phone]) 528-743210-27-2023 Telephone encounter Note* Telephone Encounter - Nayana Muir - 05/28/2023 2:21 PM EDT Care Gaps Scheduling Health Maintenence Due: Medicare AWV/PCP Visit: deferred Eye Exam: not due Foot Exam: not due Annual Bloodwork: active orders YOKO: not due [id number] Miscellaneous Notes* Telephone Encounter - Nayana Muir - 05/28/2023 2:21 PM EDT Care Gaps Scheduling Health Maintenence Due: Medicare AWV/PCP Visit: deferred Eye Exam: not due Foot Exam: not due Annual Bloodwork: active orders YOKO: not due documented in this [id number] Discharge summary Author Blaise Tom [facility] March 23, 2023 9:12pm Note Date/Time March 23, 2023 5: 11pm [facility] Medical Records Department [address] [place] [address] Emergency Department Summary 03/23/23 MR#: [id number] Acct: [id number] Name: MORENA PATTON Rep #:[id number] : 1960 63 From: Blaise Tom DO [...] open her hand. She apparently was at [facility] and her symptoms worsened. Patient states I cannot take it anymore. States she was recently admitted to the hospital for this and never followed up with anybody as an outpatient. She said her last PCP was at [facility]. Denies fever or chills. Denies constipation or [...] Time buprenorphine [From [facility]] Allergy Rash Verified 03/23/23 16:26 NSAIDS (Non-Steroidal [...] it got worse when she was at [facility] today and she presents while drinking a [...] 37.9 L Lymph % (Auto) 51.0 H Delta % (Auto) 8.7 Eos % (Auto) 2.0 [...] Clarity Clear Urine pH 6.0 Ur Specific Murdo 1.020 Urine Protein 30 H Urine Glucose [...] Staff - Active Staff] - 3-5 Days Sami Hansen DO [Med Staff - Active Staff] - As soon as possible Care Physician,No Primary [Primary Care Provider] - Disposition Disposition: Home, Self Care What to do if you have Problems For any increased pain, shortness of breath, bleeding, nausea or vomiting, chestpain, or any unexpected problems, contact your Primary Care Provider. Call [facility] ([phone]) or report to the closest Emergency Room. Call 911 if necessary. 03/23/232111 <Electronically signed by Blaise Tom DO> Cosigner Signature (if applicable): CC: No Primary Care Physician ~ Signed [facility] Work Phone: 1([phone]) 866-221308-14-2023 Telephone encounter Note* Telephone Encounter - Sarita Moscoso RN - 03/15/2023 1:13 PM EDT Order pended for provider review & signature. Requested Prescriptions Pending Prescriptions Disp Refills Syringe 23G X 1 3 ML MISC 12 Each 0 Si Syringe once a month. vitamin B-12 (CYANOCOBALAMIN) 1000 MCG/ML injection 12 Each 0 Sig: Inject 1 mL into the muscle once a month. [id number] Miscellaneous Notes* Telephone Encounter - Sarita Moscoso [...] provider's name: Hilton Johnson MD Pharmacy Name: [facility] documented in this [id number] Telephone encounter Note* Telephone Encounter - Heather Mariscal - 03/15/2023 10:53 AM EDT Pharmacy requesting medication substitution. Medication not available to order: Cyanocobalamin 1000 MCG/ML KIT Recommended alternative medications: Pharmacy is requesting two separate prescriptions, one for thevitamin B injection solution and the other for the syringe to inject it. Prescribing provider's name: Hilton Johnson MD Pharmacy Name: [facility] [id number] Telephone encounter Note* Telephone Encounter - Lisa [...] prescription was sent to her pharmacy in [place]. She should repeat her lipid panel sometime in May. Patient verbalized understanding with no further questions. [id number] Miscellaneous Notes* Telephone Encounter - Lisa Ballesteros RN - [...] prescription was sent to her pharmacy in [place]. She should repeat her lipid panel sometime [...] of protection against CVD. documented in this [id number] Telephone encounter Note* Telephone Encounter - Hilton Johnson MD - 03/10/2023 7:57 AM EDT Prescribing a statin in response to the elevated cholesterol and total nonHDL cholesterol identified on her lipid panel realizing that the HDL is quite elevated and might indicate some degree of protection against CVD. [id number] Note* Addendum Note - Nichelle Hills - 03/09/2023 2:14 PM EDTAddended by: NICHELLE HILLS on: 03/09/2023 02:14 PM Modules accepted: Orders [id number] Note* Addendum Note - Nichelle Hills - 03/09/2023 2:14 PM EDTAddended by: NICHELLE HILLS on: 03/09/2023 02:14 PM Modules accepted: Orders [id number] Miscellaneous Notes* Addendum Note - Nichelle Hills - 03/09/2023 2:14 PM EDTAddended by: NICHELLE HILLS on: 03/09/2023 02:14 PM Modules accepted: Orders documented in this [id number] History of Present illness Narrative* Orin Garcia - 03/09/2023 10:40 AM EDT Patient identified by name and date of . Blood obtained from arm. * Hilton Johnson MD - 03/09/2023 9:30 AM EDT Date: 03/09/23 Morena Patton 63 year old, female [id number] CHIEF COMPLAINT: Chief Complaint Patient presents with [...] about a week ago. She lives in [place] but came here today because [facility] really knows me. She ran out of most of her medications and has not been taking them. She passed out last week and picked up some medications at that time. She is now on a heart monitor. She is due to see a stack matcher when she turns in her monitor. She was in the ED on January 30 for abdominal pain. She was discharged on Carafate. She started taking it on 02/24. She was in pain the entire time up until starting to take it. Her pain is now improved but not resolved. She states that she needs to see a doctor podiatric medicine and Neurologist and stack matcher. 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 Diagnoses and all orders for this visit: [...] - vitamin D2 ergocalciferol (DRISDOL) 1.25 MG (51406 UT) capsule; Take 1 Capsule by mouth [...] hospitalized for bleeding at this site in 2018 Calculus of gallbladder without cholecystitis without obstruction This was identified during her most recent ED visit to [facility] On . Generalized abdominal pain This was the reason that she presented to the ED at [facility] on Dizziness - CARDIOLOGY SERVICE REQUEST - ECHOCARDIOGRAM, ADULT SERVICE REQUEST Patient states that she is always dizzy and weak and is currently wearing a Holter monitor and was told that she needs to see a Machine Ironer to assess her problem. Prediabetes - HEMOGLOBIN [...] at follow up visits. She lives in [place], and I encouraged her to have care established there as she is likely to be admitted to that local hospital if/when she might become acutely ill. She wants to continue care here at [facility] and we will therefore provide herthe referral to Cardiology. She might also benefit from a GI assessment, though I suspect her abdominal pain has multiple possible etiologies behind it (and given that she does not tolerate milk, it could be food intolerance/allergies), perhaps due to adhesions or PUD. Follow up in 3-4 months Hiltno Johnson MD, * Nakita Marrero - 03/09/2023 9:07 AM EDT Identification was verified by patient verbalizing her name and date of . Patient at risk for falls:No Falls Risk protocol implemented: No documented in this [id number] Telephone encounter Note* Telephone Encounter - Janae [...] as well as a plan of action. [id number] Miscellaneous Notes* Telephone Encounter - Janae Hemphill [...] a plan of action. documented in this [id number] Discharge summary Author Virginie Aguillon [facility] February 16, 2023 10:56am Note Date/Time February 16, 2023 10:5 7am [facility] Medical Records Department [address] [place] [address] Instructions for Home/Discharge Instructions 02/16/23 1056 MR#: [id number] Acct: [id number] Name: MORENA PATTON Rep #:[id number] : 1960 63 From: Virginie Aguillon MD [...] your pharmacy, this can also be obtained bqfo-kvo-nhxbnjs at a pharmacy as you were low [...] Recorder Preventi (Urgent) Timeframe: 1 Day Facility: [facility] - Location: Cardiovascular Services Ordered By: Dr. [...] Care 02/16/23 1056<Electronically signed by Virginie Aguillon MD>Virginie Aguillon MD CC: Dr. Jeniffer Campos MD; Dr. Drew Solis MD; No Primary Care Physician ~ Signed [facility] Work Phone: 1(637) 218-642107-17-2023 Progress note Author Virginie Aguillon [facility] February 15, 2023 2:30pm Note Date/Time February 15, 2023 2:30 pm [facility] Medical Records Department [address] [facility] [place] [address] Progress Note - Hospitalist 02/15/23 1422 MR#: [id number] Acct: [id number] Name: MORENA PATTON Rep #:[id number] : 1960 63 From: Virginie Aguillon MD PCP: Care Physician,No Primary Status :ADM CYRIL Location: [place] [address] Reason for Visit Reason for Visit: Diagnoses [...] 23.7 L, Lymph % (Auto) 61.1 H, Delta % (Auto) 11.0 H, Eos % (Auto) [...] Signed: Kavon Panchal MD at 19:19 EDT , Rhythm Strip Rhythm Strip: Sinus [...] however so came to ED -Was in [facility] twice in January and hat CTA [...] documentation, 52minutes Charges/Coding Visit Charges Inpatient E&M: 47869 Subs Hosp L3 02/15/23 1430 <Electronically signed by Virginie Aguillon MD> Cosigner Signature (if applicable): CC: ~ Signed [facility] Work Phone: 1(687) 534-370907-16-2023 Progress note Author Drew Solis [facility] February 14, 2023 9:50am Note Date/Time February 14, 2023 7:38 am [facility] Medical Records Department [address] [place] [address] Progress Note - Hospitalist 02/14/23 0736 MR#: [id number] Acct: [id number] Name: MORENA PATTON Rep #:[id number] : 1960 63 From: Drew Solis MD PCP: Care Physician,No Primary Status :ADM CYRIL Location: [place] [address] Reason for Visit Reason for Visit: Diagnoses [...] (Auto) 39.8 L, Lymph % (Auto) 46.3H, Delta % (Auto) 10.8 H, Eos % (Auto) [...] 37.1 L, Lymph % (Auto) 47.8 H, Delta % (Auto) 12.3 H, Eos % (Auto) [...] documentation, 50Minutes Charges/Coding Visit Charges Inpatient E&M: 20679 Subs Hosp L3 02/14/23 0950 <Electronically signed by Drwe Solis MD> Cosigner Signature (if applicable): CC: ~ Signed [facility] Work Phone: 1(891) 295-514207-16-2023 History and physical note Author Jeniffer Campos [facility] February 13, 2023 10:41pm Note Date/Time February 13, 2023 8:47 pm [facility] Medical Records Department [address] [place] [address] H&P Exam - Hospitalist 02/13/232044 MR#: [id number] Acct: [id number] Name: MORENA PATTON Rep #:[id number] : 1960 63 From: Jeniffer Campos MD PCP: Care Physician,No Primary Status :ADM CYRIL Location: [place] [address] HPI - General General Date of Admission: [...] for pain control) who presents to the [facility] ED on 02/13/23 with history of [...] no prodrome. She was recently seenin the [facility] system in January twice from records noted [...] am unable tosee these records in the [facility] system. There was recent CTA evaluation/lab work-up [...] rhythm with no acute evidence of ischemia. PFSH Medical History ADHD (attention deficit hyperactivity [...] Reaction Status Date / Time buprenorphine [From [facility]] Allergy Rash Verified 10/22/22 10:10 NSAIDS (Non-Steroidal [...] (Auto) 39.8 L, Lymph % (Auto) 46.3H, Delta % (Auto) 10.8 H, Eos % (Auto) [...] Rakesh Hickey (Brooks), at 20:32 EDT , Assessment & Plan [...] for pain control) who presents to the [facility] ED on 02/13/23 with history of [...] with history of peptic ulcer disease: Admission vhztzzaass90.2, baseline prior has been 12-13 but there [...] 75 minutes. Charges/Coding Visit Charges Inpatient E&M: 69022 Init Hosp L3 02/13/23 2241 <Electronically signed by Jeniffer Campos MD> Cosigner Signature (if applicable): CC: Dr. Jeniffer Campos MD; No Primary Care Physician~ Signed [facility] Work Phone: 1(377) 921-607107-16-2023 Discharge summary Author Albert Carbone [facility] February 13, 2023 10:07pm Note Date/Time February 13, 2023 7:43 pm [facility] Medical Records Department [address] [place], [place] [address] [address] Emergency Department Summary 02/13/23 MR#: [id number] Acct: [id number] Name: MORENA PATTON Rep #:[id number] : 1960 63 From: Albert Carbone MD PCP: Care Physician,No Primary Status :ADM CYRIL Location: [place] [address] Albert Carbone MD on [...] son is arrived. He said at a [facility] which I believe was [facility] they found that she had valvular heart disease. He thinks that may be the causeof her syncopal episodes. He preferred that she go to [place]. I explained to him that that may not be a possibility tonight. He wants to sign out and take her to [facility] emergency department himself. 02/13/232199<Electronically signed by Albert [...] Prior similar symptoms: Yes Recent Illness/Hospitalization: No PFSH PFS Medical History (Updated 07/15/23 @ 20:[address] Jeniffer Campos MD) [...] girdle intact. Moving all 4 extremities. Normal cloth opener hand strength. Normal dorsi plantarflexion. Neurologically. She is [...] 39.8 L Lymph % (Auto) 46.3 H Delta % (Auto) 10.8 H Eos % (Auto) [...] 20:32 EDT Reading Location ID and State: [facility] / [place] , Service support , Chest x-ray, portable, single view showed no acute abnormality. Normal cardiac silhouette. Normal mediastinum. Normal lung ferrer. Rhythm Strip Rhythm Strip: Sinus Rhythm Rate: 78 Ectopy: None EKG Initial EKG: Attestation: I personally reviewed and interpreted this EKG as follows: Interpretation: No Acute Injury Pattern Comments: Normal sinus rhythm rate of 78. No acute signs of DC nor ischemia nor dysrhythmia. Unremarkable EKG. Discharge Plan Dx/Rx/DC Orders Clinical Impression: Closed head injury, Syncope, Fall Disposition Disposition: Acute Care Hospital [facility] What to do if you have Problems For any increased pain, shortness of breath, bleeding, nausea or vomiting, chestpain, or any unexpected problems, contact your Primary Care Provider. Call [facility] ([phone]) or report to the closest Emergency Room. Call 911 if necessary. 02/13/232104 <Electronically signed by Albert Carbone MD> Cosigner Signature (if applicable): CC: No Primary Care Physician ~ Signed [facility] Work Phone: 1(279) 533-243907-15-2023 Discharge summary Author Albert Carbone [facility] February 13, 2023 10:07pm Note Date/Time February 13, 2023 7:43 pm [facility] Medical Records Department [address] [place] [address] Emergency Department Summary 02/13/23 MR#: [id number] Acct: [id number] Name: MORENA PATTON Rep #:[id number] : 1960 63 From: Albert Carbone MD PCP: Care Physician,No Primary Status :ADM CYRIL [facility] [address] Albert Carbone MD on [...] son is arrived. He said [facility] that she had valvular heart disease. He thinks that may be the causeof her syncopal episodes. He preferred that she go to [place]. I explained to him that that may not be a possibility tonight. He wants to sign out and take her to [facility] emergency department himself. 02/13/232199<Electronically signed by Albert [...] Prior similar symptoms: Yes Recent Illness/Hospitalization: No PFSH PFS Medical History (Updated 02/13/23 @ 20:47 by [...] Reaction Status Date / [facility] All[facility] Rash Verified 10/22/22 10:10 NSAIDS (Non-Steroidal [...] girdle intact. Moving all 4 extremities. Normal cloth opener hand strength. Normal dorsi plantarflexion. Neurologically. She is [...] 39.8 L Lymph % (Auto) 46.3 H Delta % (Auto) 10.8 H Eos % (Auto) [...] 20:32 EDT Reading Location ID and State: [facility] / [place] , Service support , Chest x-ray, portable, single view showed no acute abnormality. Normal cardiac silhouette. Normal mediastinum. Normal lung ferrer. Rhythm Strip Rhythm Strip: Sinus Rhythm Rate: 78 Ectopy: None EKG Initial EKG: Attestation: I personally reviewed and interpreted this EKG as follows: Interpretation: No Acute Injury Pattern Comments: Normal sinus rhythm rate of 78. No acute signs of DC nor ischemia nor dysrhythmia. Unremarkable EKG. Discharge Plan Dx/Rx/DC Orders Clinical Impression: Closed head injury, Syncope, Fall Disposition Disposition: Acute Care Hospital [facility] What to do if you have Problems For any increased pain, shortness of breath, bleeding, nausea or vomiting, chestpain, or any unexpected problems, contact your Primary Care Provider. Call [facility] ([phone]) or report to the closest Emergency Room. Call 911 if necessary. 02/13/232104 <Electronically signed by Albert Carbone MD> Cosigner Signature (if applicable): CC: No Primary Care Physician ~ Signed [facility] Work Phone: 1(221) 978-411403-23-[address] Tom [facility] October 22, 2022 2:51pm Note Date/Time October 22, 2022 10: 39am [facility] Medical Records Department [address] [place] [address] Emergency Department Summary 10/22/22 MR#: [id number] Acct: [id number] Name: MORENA PATTON Rep #:[id number] : 1960 62 From: Blaise Tom DO [...] couple of falls at home this week. [facility] Medical History ADHD (attention deficit hyperactivity disorder) [...] 45.8 L Lymph % (Auto) 43.4 H Delta % (Auto) 7.5 Eos % (Auto) 2.5 [...] Clarity Clear Urine pH 7.0 Ur Specific Murdo 1.015 Urine Protein 30 H Urine Glucose [...] your Primary Care Provider. Call [facility] ([phone]) or report to the closest Emergency Room. Call 911 if necessary. 10/22/22 1451 <Electronically signed by Blaise Tom DO> Cosigner Signature (if applicable): CC: No Primary Care Physician ~ Signed [facility] Work Phone: 1(209) 285-493803-10-[address] Rutledge [facility] October 09, 2022 5:57pm Note Date/Time October 09, 2022 5:4 1pm [facility] Medical Records Department [address] [place] [address] Emergency Department Summary 10/09/22 MR#: [id number] Acct: [id number] Name: MORENA PATTON Rep #:[id number] : 1960 62 From: Lisa ROY PCP: [...] <MANUELA Hickman - Last Filed: 10/09/22 17:50> [facility] Medical History ADHD (attention deficit hyperactivity disorder) [...] Time buprenorphine [From Butrans] Allergy Rash Verified 10/09/22 17:24 NSAIDS (Non-Steroidal [...] <MANUELA Hickman - Last Filed: 10/09/22 17:50> [facility] Narrative Medical decision making narrative: Patient had [...] CT scan. She was advised to take fbmr-jku-awwlnyx pain relievers and follow-up with her doctor next week. She was given return precautions and discharged in stable condition. Differential: Concussion, intracranial bleed, skull fracture Test considered but not ordered: Cording to Icelandic CT head rule no indication for head imaging. Prescriptions considered but I think she can take oyic-urn-zxisqjm Tylenol or Motrin. <Dr. Anthony Rutledge MD - Last Filed: 10/09/22 17:57> [facility] Narrative Medical decision making narrative: Patient had [...] CT scan. She was advised to take zkzy-eew-imzhmvi pain relievers and follow-up with her doctor next week. She was given return precautions and discharged in stable condition. Differential: Concussion, intracranial bleed, skull fracture Test considered but not ordered: Cording to [place]ic CT head rule no indication for head imaging. Prescriptions considered but I think she can take amcs-hff-vnulwlo Tylenol or Motrin. I have personally performed [...] neurologic exam Medical Decision Making per the Icelandic CT head rule and [place] rule imaging is not required. Per [employer] [...] your Primary Care Provider. Call [facility] ([phone]) or report to the closest Emergency Room. Call 911 if necessary. 10/09/221749 <Electronically signed by Lisa ROY> Cosigner Signature (if applicable): 10/09/221756 <Electronically signed by Teo WOO> CC: No Primary Care Physician ~ Signed [facility] Work Phone: 1(328) 158-209307-28-2022 Telephone encounter Note* Telephone Encounter - Joey Mcnamara - 02/26/2022 10:10 AM EDT Care Gaps Scheduling Contact Details: Called, left message Health Maintenance Due: Medicare AWV / PCP Visit: Due Eye Exam: Not due Foot Exam: Not due Annual Blood Work: Due Mammogram: Due, but pt has no order in Active Requests FIT: Not due [id number] Miscellaneous Notes* Telephone Encounter - Joey Mcnamara - 02/26/2022 10:10 AM EDT Care Gaps Scheduling Contact Details: Called, left message Health Maintenance Due: Medicare AWV / PCP Visit: Due Eye Exam: Not due Foot Exam: Not due Annual Blood Work: Due Mammogram: Due, but pt has no order in Active Requests FIT: Not due documented in this [id number] Hospital course Narrative* Berkley Jaramillo MD - 01/01/2022 7:31 AM EDT DISCHARGE SUMMARY [address] [address] Morena Patton Date of : 1960 61 [...] Referral Type: Service Level Authorization Referral Location: [facility] Number of Visits Requested: 3 Expiration Date: 12/31/22 Future Appointments Date Time Provider Department Center 01/14/2022 10:45 AM Macy Smith DO [facility] 02/19/2022 10:30 AM Mary Ellen Miller MD [facility] Condition at Discharge Improved Activity No restrictions Diet No restrictions Disposition Home Functional Status Ambulatory Reason for Hospitalization Upper Gastrointestinal Hemorrhage Significant Findings EGD and colonoscopy 12/30/21 IMPRESSION: 1. Two clean based (Fajardo Class III) ulcers noted at the anastomosis [...] underwent EGD and colonoscopy. Two clean based (Fajardo Class III) ulcers were noted at the [...] Associated Diagnoses: COPD (chronic obstructive pulmonary disease) ([facility]) ammonium lactate (LAC-HYDRIN) 12 % lotion Apply 80 mL topically 2 times daily. Qty: 500 g, Refills: 3 Associated Diagnoses: Dry skin !! beclomethasone (QVAR) 40 MCG/ACT inhaler Inhale 1 Puff 2 times daily. Qty: 7.3 g, Refills: 3 Associated Diagnoses: COPD (chronic obstructive pulmonary disease) ([facility]) methocarbamol (ROBAXIN-750) 750 MG tablet Take 1 [...] MD Internal Medicine, PGY-1 documented in this [id number] History of Present illness Narrative* Carlos Katz - 12/31/2021 5:03 PM EDT [facility] Services provided for: Patient Services initiated by: Staff Project Management Intern Reason for services: Initial visit Assessment/Narrative: Patient just lost a first cousin apparently in good health last week Jew/Spirituality: Non Christian Spiritual Concerns: Grief/Loss Coping: Role of jewish/spirituality Family: Support and Dynamics Interventions: Rapport building and prayer Outcome: Expressed appreciation Plan of Care: On-going Visits Carlos Katz Pager: [phone] Extension: [phone] * Orestes Gaspar MD - 12/31/2021 3:42 [...] 3 0.96 9.3 12/30/21 0246 1.9 12/30/21 024 138 3.8 107 21 14 100 5 0.85 9.5 12/28/21 1721 132 4.7 Comment: Hemolysis present 103 17 17 112 17 1.13 9.3 Hepatic/Biliary/Pancreas T Prot Albumin D Bili T Bili Alk Phos ALT AST Amylase Lipase 12/28/21 1721 5.7 3.3 0.30 0.8 78 13 21 Comment: Hemolysis present 12/28/21 1721 23 Pt will not take oral iron [...] -- 96 16 94 % Nasal cannula 5 12/30/21 1107 117/79 -- -- 96 22 91 % Nasal cannula 5 12/30/21 1102 127/85 -- -- 97 13 91 % Nasal cannula 5 12/30/21 1057 102/72 -- -- 98 29 93 % Nasal cannula 5 12/30/21 1052 96/68 -- -- 96 17 93 % Nasal cannula 4 12/30/21 1047 106/66 -- -- 103 18 [...] -- 76 11 100 % Nasal cannula 3 12/30/21 1023 111/83 -- -- 74 18 100 % Nasal cannula 3 12/30/21 1021 128/77 -- -- 74 14 100 % Nasal cannula 3 12/30/21 1017 127/85 -- -- 69 24 100 % Nasal cannula 3 12/30/21 1004 130/82 98 F (36.7 C) [...] 21 Comment: Hemolysis present 12/28/21 1721 23 EGD: Two Fajardo Class III ulcers at anastomosis site of [...] Concerns No PCP VERIFIED No ADMISSION INSURANCE [employer];Medicare Medicare HMO (comment) Transportation to and/or [...] plans as warranted. Adonay CHOPRA, RN Inpatient Custom Grinder * Berkley Jaramillo MD - 12/30/2021 7:24 AM EDT Images from the original note were not included. INTERNAL MEDICINE TEAM 9 DAILY PROGRESS NOTE Patient: Morena Patton : 1960 Sex: female Room: B946/02 Admit Date: 12/28/2021 Today's Date: 12/30/2021 Length [...] Morena CHANDRA : 1960 Sex: female Room: [place] [address] Admit Date: 12/28/2021 Today's Date: 12/29/2021 Length [...] Number of days: 1 Peripheral IV Access: 12/28/217 20 gauge x 1.88 inch Left Forearm [...] Bands% 12/29/21 0608 40.6 49.7 1.5 12/28/21 1721 55.8 36.6 0.6 Hepatic/Biliary/Pancreas T [...] Goetz MD Internal Medicine, PGY-1 Personal Pager: [phone] Team 9 Pager: [phone] documented in this [id number] Hospital Discharge instructions* Discharge Instructions* Berkley Jaramillo [...] be in 10 years. documented in this [id number] Note* Care Plan Note - Catalina Hyde [...] adult patient will be met Outcome: Progressing [id number] Miscellaneous Notes* Care Plan Note - Catalina [...] - 12/30/2021 10:03 AM EDT Morena Patton [id number] 12/30/2021 HISTORY & PHYSICAL: Patient's history with [...] Ortiz MD 12/30/21 10:03 AM Morena Patton [id number] 12/30/2021 JANITORIAL ASSISTANT: oTdd Ortiz MD ATTENDING:Davon Ha MD ([id number]) Procedure(s): ESOPHAGOGASTRODUODENOSCOPY AND COLONOSCOPY INSTRUMENT: Scope #[id number] #[id number] COLONOSCOPE #3006 SEDATION: Moderate: Oxygen 2L via [...] of coffee ground emesis. Last EGD in 2019 showed anastomotic ulcer and colonoscopy in 2009 *no reports available). While monitoring the patient with EKG, pulse oximetry and BP, endoscope passed through the remnant stomach into the jejunum by direct visualization. JEJUNUM: Alimentary limb appeared normal GASTROJEJUNAL ANASTOMOSIS: Two clean based ulcers (Fajardo Class III) with surrounding erythematous mucosa noted [...] transillumination of right lower quadrant. Prep was [place] Bowel Prep Right Colon: Minor amount of residual staining, small fragments of stool and/or opaque liquid, [place] Bowel Prep Transverse Colon: Entire colon seen well, [place] Bowel Prep Left Colon:Minor amount of residual [...] and collapse (Primary Diagnosis) [780.2.ICD-9-CM] Peptic ulcer [128609] Gastrointestinal hemorrhage, unspecified gastrointestinal hemorrhage type [9516060] 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-en-Y gastric bypass [460680] Anastomotic ulcer [897017] Chronic iron deficiency anemia [5497705] JANIE PATH SPECIMEN SENT: no SPECIMEN: None PHOTOGRAPH TAKEN:yes COMPLICATIONS DURING PROCEDURE: none EBL (estimated blood loss): none IMPRESSION: 1. Two clean based (Fajardo Class III) ulcers noted at the anastomosis [...] per the GI consult team A/P: Morena PattonChava is a 61 year old female with [...] Code Dispo: Inpatient Rest of plan per geotechnical intern note. To be discussed with attending physician in the morning. Plan is preliminary until finalized by the attending physician. Luis Daniel Ahumada Internal Medicine, PGY-2 Pager: [phone] documented in this [id number] Note* OP Note - Davon Ha MD - 12/30/2021 10:03 AM EDT Morena Patton [id number] 12/30/2021 HISTORY & PHYSICAL: Patient's history with [...] Ortiz MD 12/30/21 10:03 AM Morena Patton [id number] 12/30/2021 JANITORIAL ASSISTANT: Todd Ortiz MD ATTENDING:Davon Ha MD ([id number]) Procedure(s): ESOPHAGOGASTRODUODENOSCOPY AND COLONOSCOPY INSTRUMENT: Scope #[id number] #[id number] COLONOSCOPE #3006 SEDATION: Moderate: Oxygen 2L via [...] normal GASTROJEJUNAL ANASTOMOSIS: Two clean based ulcers (Fajardo Class III) with surrounding erythematous mucosa noted [...] transillumination of right lower quadrant. Prep was [place] Bowel Prep Right Colon: Minor amount of residual staining, small fragments of stool and/or opaque liquid, [place] Bowel Prep Transverse Colon: Entire colon seen well, [place] Bowel Prep Left Colon:Minor amount of residual [...] and collapse (Primary Diagnosis) [780.2.ICD-9-CM] Peptic ulcer [486701] Gastrointestinal hemorrhage, unspecified gastrointestinal hemorrhage type [9595756] 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-en-Y gastric bypass [735649] Anastomotic ulcer [715165] Chronic iron deficiency anemia [4895146] JANIE PATH SPECIMEN SENT: no SPECIMEN: None PHOTOGRAPH TAKEN:yes COMPLICATIONS DURING PROCEDURE: none EBL (estimated blood loss): none IMPRESSION: 1. Two clean based (Fajardo Class III) ulcers noted at the anastomosis [...] Ha MD Department of Gastroenterology & Hepatology [id number] Note* Care Plan Note - Kimi Amezcua [...] adult patient will be met Outcome: Progressing [id number] History and physical note* Orestes Gaspar MD [...] coffee ground emesis. PMH: Cj-en-Y gastric bypass 2000, PUD, HTN, PORTIA, ETOH (sober 3 years), [...] 3. Continue usual meds Orestes Gaspar MD [id number] History and physical note* Orestes Gaspar MD [...] Morena Chandra : 1960 Sex: female Room: [place] [address] Admit Date: 12/28/2021 Today's Date: 12/28/2021 Length [...] and doesn't remember anything after that - [place] her face was cold/had cold towels on [...] Rate Temperature Temperature Source 12/28/21 1709 12/28/21 1710 12/28/21 17112/28/21 17112/28/211709 114/56 93 19 98.2 F (36.8 C) [...] of drug use. Family History: Cousin had DC Review of patient's family history indicates: Problem: [...] Goetz MD Internal Medicine, PGY-1 Personal Pager: [phone] Team 9 Pager [phone] documented in this [id number] Consult note* Davon Ha MD - 12/29/2021 10:00 AM EDTAssociated Order(s): IP GASTROENTEROLOGY CONSULT Images from the original note were not included. Department of Gastroenterology and Hepatology Consult H&P Note GI Attending Physician: Dr. Davon Ha MD ([id number]) Patient: Morena CHANDRA Location: ACUTE Reason for Consult: coffee ground emesis, iron [...] Viviane Goetz MD, 500 mg at 12/29/21 3249 Current Outpatient Medications: ondansetron (Zofran ODT) 4 [...] stomach 3. Normal remnant stomach Colonoscopy 2009 [facility] (report not available) Colonoscopy 2002 Colon noted [...] with GI attending, Dr. Davon Ha MD ([id number]). Primary team updated. Please don't hesitate to reach out with questions or concerns. We will continue to follow with you. Personal Pager [phone] GI Consult Pager (nights and weekends) [phone] Mary Ellen Miller MD Gastroenterology Fellow Division of Gastroenterology & Hepatology [facility] 12/29/21 ATTENDING NOTE The patient was [...] Ha MD Department of Gastroenterology & Hepatology [facility] Work Phone: 1([phone]) 599-533905-30-2022 Consult note* Davon Ha MD - 12/29/2021 10:00 AM EDTAssociated Order(s): IP GASTROENTEROLOGY CONSULT Images from the original note were not included. Department of Gastroenterology and Hepatology Consult H&P Note GI Attending Physician: Dr. Davon Ha MD ([id number]) Patient: Morena CHANDRA Location: Reason for Consult: [...] stomach 3. Normal remnant stomach Colonoscopy 2009 [facility] (report not available) Colonoscopy 2002 Colon noted [...] with GI attending, Dr. Davon Ha MD ([id number]). Primary team updated. Please don't hesitate to reach out with questions or concerns. We will continue to follow with you. Personal Pager [phone] GI Consult Pager (nights and weekends) [phone] Mary Ellen Miller MD Gastroenterology Fellow Division of Gastroenterology & Hepatology [facility] 12/29/21 ATTENDING NOTE The patient was [...] Ha MD Department of Gastroenterology & Hepatology [facility] documented in this [id number] Emergency department Note* Mayra Leong - 12/29/2021 8:15 AM EDT Pts cnadido fully changed. [id number] Emergency department Note* Mayra Leong - 12/29/2021 8:15 AM EDT Pts candido fully changed. * Wayne Benton MD - 12/28/2021 7:46 PM EDT ED Attending Note 61 year old female hx PUD with GIB in 2019 at [facility] today had 1 drink and says family [...] patient is accepted. Harshad Emery DO PGY2 [id number] * Wayne Benton MD - 12/28/2021 5:05 PM EDT EMERGENCY DEPARTMENT - VISIT NOTE HISTORY OF PRESENT ILLNESS Chief Complaint Patient presents with Fainting Per ems, family states patient passed out, +etoh and marijuana HIPAA: Verbal permission granted from patient to discuss case, including protected health information, in front of family / friends in room at the time of the evaluation. Assistant Corporation Counsel: not needed - patient preferred language is Ukrainian. The history is provided by the Patient. Morena Chandra is a 61 year old female Cj-en-y Gastric bypass (1999), Reported history of PUD (likely marginal), HTN, Iron Deficiency Anemia, Depression, PTSD, GERD, EtOH abuse, chronic low backpain, and osteoarthritis presenting to the ED for reported syncope. Patient states that she was at a [facility] with her family. She was sitting down [...] Per family, the patient was at the [employer] and had two drinks. In the afternoon, she dropped her cup and fell back. Family saw her fall back in her chair. Said that her eyes were rolling in her head but no significant shaking or seizure like activity, no loss of bladder function. 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 Plan: [facility] after labs result. IMPRESSION AND DISPOSITION [...] 202912/28/21 Dr. Wayne Benton documented in this [id number] Note* Care Plan Note - Luis Daniel [...] as per the GI consult team A/P: Morenarama Chandra is a 61 year old female [...] Code Dispo: Inpatient Rest of plan per geotechnical intern note. To be discussed with attending physician in the morning. Plan is preliminary until finalized by the attending physician. Luis Daniel Ahumada Internal Medicine, PGY-2 Pager: [phone] [facility] Work Phone: 1([phone]) 446-881405-29-2022 History and physical note* Viviane Goetz MD - 12/28/2021 8:54 PM EDT Images from the original note were not included. INTERNAL MEDICINE TEAM 9 HISTORY AND PHYSICAL Patient: Morena Chandar : 1960 Sex: female Room: [place] [address] Admit Date: 12/28/2021 Today's Date: 12/28/2021 Length [...] and doesn't remember anything after that - [place] her face was cold/had cold towels on [...] Temperature Source 12/28/21 1709 12/28/21 17112/28/21 17112/28/21 17112/28/211709 114/56 93 19 98.2 F (36.8 C) [...] of drug use. Family History: Cousin had DC Review of patient's family history indicates: Problem: [...] Goetz MD Internal Medicine, PGY-1 Personal Pager: [phone] Team 9 Pager [phone] [id number] Physician Emergency department Note* Wayne Benton MD - 12/28/2021 7:46 PM EDT ED Attending Note 61 year old female hx PUD with GIB in 2019 at [facility] today had 1 drink and says family [...] to stay in hospital Wayne Benton MD [facility] Work Phone: 1(266) [phone] Physician Emergency department Note* Harshad Emery DO [...] patient is accepted. Harshad Emery DO PGY2 [id number] [facility] Work Phone: 1(740) 411-948005-29-2022 Physician Emergency department Note* Wayne Benton MD [...] at the time of the evaluation. Assistant Corporation Counsel: not needed - patient preferred language is Ukrainian. The history is provided by the Patient. Morena Chandra is a 61 year old female Cj-en-y Gastric bypass (1999), Reported history of PUD (likely marginal), HTN, Iron Deficiency Anemia, Depression, PTSD, GERD, EtOH abuse, chronic low backpain, and osteoarthritis presenting to the ED for reported syncope. Patient states that she was at a [place] with her family. She was sitting down [...] Per family, the patient was at the [employer] and had two drinks. In the afternoon, she dropped her cup and fell back. Family saw her fall back in her chair. Said that her eyes were rolling in her head but no significant shaking or seizure like activity, no loss of bladder function. 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 Plan: Admit to [facility] after labs result. IMPRESSION AND DISPOSITION Clinical Impression Diagnosis Comment Syncope and collapse [R55] Disposition: Admitted to Floor: Night Float Team 1. Case discussed with resident and care turned over to team at appx .2030 12/28/2021 Patient Condition: stable The patient has received [...] the opportunity to ask questions. Dwaine Badillo, ED Attending Note see separate progress note [...] note No data available for this section [facility] Evaluation note* Diagnosis Gastrointestinal hemorrhage, unspecified gastrointestinal [...] in [facility] noteNo assessment information availableW[facility] Work Phone: Evaluation note* Diagnosis Onset Date Resolution Status Closed head injury acute Fall acute Syncope acute [facility] Work Phone: Evaluation note* Diagnosis Onset Date Resolution Status Anxiety and depression acute Closed head injury acute Fall acute Syncope acute Hypertension chronic Insomnia chronic [facility] Work Phone: Evaluation note* Diagnosis Routine adult [...] Iron deficiency anemia following bariatric surgery resolved [facility] Work Phone: Evaluation note* Diagnosis Anastomotic ulcer [...] myelopathy- Primary documented in this encounter [facility] Work Phone: Hospital Discharge instructions Additional Instructions Take Tylenol 1000 mg every 6 hours as needed and follow-up with your doctor next week if symptoms are persistent.[facility] Work Phone: Hospital Discharge instructions Additional Instructions Patient's evaluation at [facility] was unremarkable. Blood counts are stable. Electrolytes are unremarkable. Potassium is elevated due to hemolysis. Chest x- ray, EKG and CAT scan of the brain were unremarkable. We had planned to admit her for a syncopal event. Family believes that she has a recent work-up done at [facility] that showed valvular heart disease and they would prefer to go there for further evaluation.[facility] Work Phone: Hospital Discharge instructions Additional Instructions Cardiac workup negative. D-dimer negative. Chest x-ray negative. Hemoglobin 11.5. White count 5.3. Creatinine 1.04. Follow-up as an outpatient as given to further testing. If you have recurrent symptoms, return to the ED for reevaluation.[facility] Work Phone: Hospital Discharge instructions No data available for this section [facility] Progress note No data available for this section [facility] Reason for referral (narrative)* Tests/Procedures (Routine) - Pending Review Specialty Diagnoses / Procedures Referred By Contact Referred To Contact Cardiovascular Testing Diagnoses Hilton Solano MD [facility] [employer] [place] [id number] [facility] CARD NON INVASIVE [address] [facility] CenterInteractive Motion TechnologiesDaniel [place] [id number] Referral ID Status Reason Start Date Expiration Date V isits Requested Visits Authorized [id number] Pending Review 03/09/2023 03/09/2024 1 1 Scheduling [...] call the [facility] at [phone] ([phone]) if you are unable to keep [...] menstrual period 08/27/2002. Room/bed info not found @[facility]@ * Service Level Authorization (Routine) - Pending Review Specialty Diagnoses / Procedures Referred By Contac t Referred To Contact Cardiology Diagnoses Hilton Solano MD [address] [facility] [place] [address] [facility] CARDIOLOGY [facility] [address] [place], [place] [id number] Referral ID Status Reason Start Date Expiration Date V isits Requested Visits Authorized [id number] Pending Review 03/09/2023 03/09/2024 3 3 Scheduling Instructions Please call the [facility] at [phone] to schedule an appointment if one was not made for you today. Question Answer What is the primary reason for consult? Dizziness [10] At what location would you like the patient to be seen? [facility] Summary Purpose Family History No Family History [...] No March 05 10:27am Living Will No July 07 12:21pm Power of Patient Care Coordinator No July 07, 2022 12:21pm Advance Directive Response Recorded Date/ Time Advance Directives No March 05 10:27am Living Will No October 09, 2022 5:35pm Power of Patient Care Coordinator No October 09 5:35pm Advance Directive Response Recorded Date/ Time Advance Directives No March 05 11:27am Living Will No October 22, 2022 11:50am Power of Patient Care Coordinator No October 22 11:50am Advance Directive Response Recorded Date/ Time Advance Directives No March 05 11:27am Living Will No February 13, 2023 7:26pm Power of Patient Care Coordinator No February 13 7:26pm Advance Directive Response Recorded Date/ Time Advance Directives No March 05 021 11:27am Living Will No February 13, 2023 10:30pm Power of Patient Care Coordinator No February 13 3 10:30pm Latest Code Status on File Code [...] Date/ Time Advance Directives No March 05 021 11:27am Living Will No March 23 4:25pm Power of Patient Care Coordinator No March 23 023 4:25pm Advance Directive Response Recorded Date/ Time Advance Directives No March 05 021 11:27am Living Will No November 16, 2023 2:13pm Power of Patient Care Coordinator No November 15 2:13pm Date Activated Date [...] Referral Specialty Diagnoses / Procedures Referred By Contac t Referred To Contact Gastroenterology Diagnoses Gastrointestinal hemorrhage, unspecified gastrointestinal hemorrhage type Chronic iron deficiency anemia Orestes Gaspar MD [address] [place] [address] [facility] [address] [place] [address] Referral ID Status Reason Start Date Expiration Date V isits Requested Visits Authorized [id number] Pending Review 12/31/2021 12/31/2022 3 3 Scheduling [...] Referred To Contact Cardiovascular Testing Emergency Medicine [address] [place] [address] [facility] CARD NON INVASIVE [address] [place] [address] Referral ID Status Reason Start Date Expiration Date V isits Requested Visits Authorized [id number] Authorized 12/28/2021 12/28/2022 1 1 Scheduling Instructions [...] call the [facility] at [phone] (BEAT) if you are unable to keep [...] last menstrual period 08/27/2002, SpO2 99 %. ACUTE44/44 Peptic ulcer, site unspecified, unspecified as acute or chronic, without h* @PROBHOSP@ Specialty Diagnoses / Procedures Referred By Contac t Referred To Contact Diagnoses Cervical spondylosis without myelopathy Drew Rosenbaum, DO [address] [place] [address] [facility] [place] [facility] [place] [address] Referral ID Status Reason Start Date Expiration Date Visits Requested Visits Authorized [id number] Authorized [facility] 01/06/2024 01/05/2025 1 1 Scheduling Instructions You have been referred to the [facility]. You will be contacted to schedule your appointment within 24 - 48 hours. If you are not contacted within this time frame please call the [facility] at [phone] to schedule your appointment. Question Answer Reason [...] section and content) DATE CREATED AUTHOR 07/08/2019 [facility] ([place]) DATE CREATED AUTHOR AUTHOR'S ORGANIZ ATION 02/21/2024 [facility] DATE CREATED AUTHOR AUTHOR'S ORGANIZ ATION 06/11/2024 [facility] DATE CREATED AUTHOR AUTHOR'S ORGANIZ ATION 11/23/2024 [facility] DATE CREATED AUTHOR AUTHOR'S ORGANIZ ATION 04/20/2025 [facility] Reason for Visit (unrecogniz ed section and content) Reason Comments Fainting Per ems, family stat es patient passed out, +etoh and marijuana Specialty Diagnoses / Procedures Referred By Rosalinda quinn Referred To Contact Emergency Medicine Diagnoses Peptic ulcer, site unspecified, unspecified as acute or chronic, without hemorrhage or perforation Procedures . [facility] [place] [address] Phone: [phone] [facility] [place] [address] Phone: [phone] Referral ID Status Reason Start Date Expiration Date Visits Re quested Visits Authorized [id number] 3 3 Reason Onset Date Comments Left [...] EVERY 4 HOURS RT, First dose on Wed12/29/21 at 0400, Until Discontinued 0000 (Automatically Held - Provider: Nano Silver RT)0400 (Automatically Held - Provider: Nano Silver, RT)0800 (Automatically Held - Provider: Nano Silver, RT)1200 (Automatically Held - Provider: Nano Silver RT)1600 (Automatically Held - Provider: Nano Silver RT)2000 (Automatically Held - Provider: Nano Silver, RT) 0000 (Automatically Held - Provider: Nano Silver RT)0400 (Automatically Held - Provider: Nano Silver RT)0800 (Automatically Held - Provider: Nano Silver RT)1200 (Automatically Held - Provider: Nano Silver, RT)1600 (Automatically Held - Provider: Nano Silver, RT)2000 (Automatically Held - Provider: Nano Silver, RT) 0000 (Automatically Held - Provider: Nano Silver, RT)0400 (Automatically Held - Provider: Nano Silver, RT)0800 (Automatically Held - Provider: Nano Silver, RT)1200 (Automatically Held - Provider: Nano Silver, RT)1600 (Automatically Held - Provider: Nano Silver, RT)2000 (Automatically Held - Provider: Nano Silver, RT) diphenhydrAMINE (BENADRYL) 50 mg in sodium [...] Until Discontinued 1745 (Given - Provider: Catalina Hyde RN)203 (Given - Provider: Clara Lewis RN)2200 (Mistaken Entry - Provider: Clara Lewis RN) 0400 (Hold/Not Given - Provider: Clara Lewis RN - Reason: Patient sleeping)1000 (Hold/Not Given - Provider: Catalina Hyde RN - Reason: Patient refused) esomeprazole (NEXIUM) 40 MG injection 40 mg, Intravenous Push, 2 TIMES DAILY, First dose on Wed12/29/21 at 0900, Until Discontinued 0938 (Given - Provider: Catalina Hyde RN)2128 (Given - Provider: Clara Lewis RN) 0959 (Given - Provider: Catalina Hyde RN)204 (Given - Provider: Lucero Brewer RN) 0900 (Hold/Not Given - Provider: Catalina Hyde RN - Reason: Route unavailable)2100 (Due) ferrous sulfate tablet TABS (CANCELED) 325 mg, Oral, EVERY OTHER DAY, First dose on Wed12/30/21 at 1400, Until Discontinued 1547 (Given - Provider: Catalina Hyde, RN) iron sucrose (VENOFER) 200 mg in sodium chloride 0.9 % 100 mL ivpb (COMPLETED) 200 mg, Intravenous, ONCE, 1 dose, On Wed12/31/21 at 1100 1950 (IV New Bag - Provider: Catalina Hyde, RN - Comment: needed benadryl prior to [...] ONCE, 1 dose, On Wed12/30/21 at 2030 2038 (Given - Provider: Clara Lewis RN) trazodone (DESYREL) tablet (COMPLETED) 50 mg, Oral, [...] Intra-op 1021 (Given - Provider: Angela Carter, RN)1023 (Given - Provider: Angela Carter, RN)1030 (Given - Provider: Angela Carter, RN) midazolam (VERSED) 2 MG/2ML injection (CANCELED) PRN, Starting on Wed12/30/21 at 1021, Until Wed12/30/21 at 1112, Intra-op 1021 (Given - Provider: Angela Carter, RN)1023 (Given - Provider: Angela Carter, RN)1030 (Given - Provider: Angela Carter RN) Care Teams (unrecognized sec tion and content) Storeroom Attendant Relationship Specialty Start Date End Date Prateek Moscoso LISW [address] [place] [id number] [employer] Social Work 05/07/20 Storeroom Attendant Relationship Specialty Start Date End Date Prateek Moscoso LISW [address] [place] [address] [employer] Social Work 05/07/20 Team Status: Active Member [...] Dr. Drew Solis MD Other Provider Active Storeroom Attendant Relationship Specialty Start Date End Date Prateek Moscoso LISW [address] [address] [employer] Social Work 05/07/20 Storeroom Attendant Relationship Specialty Start Date End Date Prateek Moscoso LISW [address] [place] [address] [employer] Social Work 05/07/20 Storeroom Attendant Relationship Specialty Start Date End Date Prateek Moscoso LISW [address] [address] [employer] Social Work 05/07/20 Storeroom Attendant Relationship Specialty Start Date End Date Prateek Moscoso LISW [address] [place] [address] [employer] Social Work 05/07/20 Storeroom Attendant Relationship Specialty Start Date End Date Hilton Johnson MD [address] [place] [address] PCP - General Family Medicine 03/15/23 Prateek Moscoso LISW [address] [place] [id number] [employer] Social Work 05/07/20 Team Status: Active Member Role Status Dates No Primary Care Physician Primary Care Provider Active Dr. Virginie Aguillon MD Attending Provider, Referring Pr ovider Active Storeroom Attendant Relationship Specialty Start Date End Date Hilton Johnson MD [address] [place] [id number] PCP - General Family Medicine 03/15/23 Prateek Moscoso LISW [address] [place] [address] [employer] Social Work 05/07/20 Storeroom Attendant Relationship Specialty Start Date End Date Hilton Johnson MD [address] [place] [id number] PCP - General Family Medicine 03/15/23 Prateek Moscoso LISW [address] [place] [address] [employer] Social Work 05/07/20 Team Status: Inactive Member Role Status Dates No Primary Care Physician Primary Care Provider Active Dr. Charly Almonte , DO Emergency Provider Active Storeroom Attendant Relationship Specialty Start Date End Date Hilton Johnson MD [address] [place] [id number] PCP - General Family Medicine 03/15/23 Prateek Moscoso LSW [address] [place] [id number] [employer]er Social Work 05/07/20 Storeroom Attendant Relationship Specialty Start Date End Date Hilton Johnson MD [address] [place] [id number] PCP - General Family Medicine 03/15/23 Prateek Moscoso LSW [address] [place] [address] [employer]er Social Work 05/07/20 Storeroom Attendant Relationship Specialty Start Date End Date Hilton Johnson MD [address] [place] [phone] PCP - General Family Medicine 03/15/23 Prateek Moscoso LSW [address] [place] [address] [employer]er Social Work 05/07/20 Storeroom Attendant Relationship Specialty Start Date End Date Hilton Johnson MD [address] [place] [id number] PCP - General Family Medicine 03/15/23 Prateek Moscoso LSW [address] [facility] [place] [address] Tar [employer]er Social Work 05/07/20 Goals (unrecognized section and [...] BE BASED ON THE PRIMARY CLINICAL RECORDS. [facility] [employer] [facility]. provides no warranty or guarantee of the accuracy or completeness of information in this document.
--- NOTE | 2025-04-26 13:28 | STRESSREP ---
Stress Test Report Pharmacologic myocardial perfusion stress test. 65-year-old lady with a history of chest. Resting EKG demonstrates normal sinus rhythm with a rate of 88 bpm. Resting blood pressure is 118/70 mmHg. 0.4 mg of regadenoson was infused per usual protocol followed by rapid intravenous saline flush injection. Continuous EKG monitoring was performed. The maximum heart rate was 100 bpm which was 64% of max impacted heart rate the maximum workload was 1 metabolic equivalent. At rest there were no ST or T wave changes noted to suggest ischemia and at peak infusion nonspecific ST changes were noted which did not meet the criteria for ischemia. No clinical angina is noted. The final blood pressure was 112/64 mmHg. Myocardial perfusion protocol. 11.8 mCi of technetium 99m sestamibi was injected at rest. 0.4 mg of regadenoson was infused per usual protocol. At peak infusion 34 point mCi of technetium 99m sestamibi was injected stress images were obtained stress and rest images were reconstructed and compared in the short axis vertical long and horizontal long axis. Gated images were also obtained. Perfusion SPECT analysis: Review of the stress images demonstrate normal uptake of tracer noted in all areas of the myocardium. The resting images similar demonstrated normal uptake of tracer noted in all areas of the myocardium. No areas of reversibility are noted to suggest ischemia and no previous infarct is noted. Gated SPECT analysis: The gated ejection fraction is 74%. Conclusion: Normal pharmacologic myocardial perfusion stress test. Preserved ejection fraction.
== END | disposition home or self-care (01) ==
LOC: CVS 06:33
PROVIDERS: Referring Provider Internal Medicine Cardiovascular Disease; Visit Provider Internal Medicine Cardiovascular Disease
DX: R06.09 Other forms of dyspnea (principal); R07.9 Chest pain, unspecified; I10 Essential (primary) hypertension; E78.5 Hyperlipidemia, unspecified
CPT/HCPCS: 78452; 93017; 93306; A9500; A4216; J2785

== ENCOUNTER 2025-07-08 16:27 | Inpatient (IN) | payer MEDICARE, MEDICAID, SELFPAY ==
[2025-07-08] VITALS (11 sets, daily range): BP systolic 96–132; BP diastolic 61–87; PULSE 78–99; RESP 14–24; TEMP 36.4–36.9; O2SAT 97–100; BMI 23.8; BMI 23.6
--- NOTE | 2025-07-08 16:41 | RAD_ITS ---
PROCEDURE: CHEST 1 VIEW (PORTABLE) 07/08/2025 REASON FOR EXAM: SYNCOPE TECHNIQUE: Frontal view of the chest. COMPARISON: 01/25/2025 chest x-ray FINDINGS: Hardware: None Heart: Cardiac and mediastinal contours are stable. Lungs: The lungs are clear. Bones: The bones are unremarkable. RAD/Chest 1 View (Portable) IMPRESSION: No Acute Findings. Reading Location: [facility]
--- NOTE | 2025-07-08 16:42 | EKG12_ITS ---
Test Reason : SYNCOPE Blood Pressure : */* mmHG Vent. Rate : 86 BPM Atrial Rate : 86 BPM P-R Int : 142 ms QRS Dur : 78 ms QT Int : 402 ms P-R-T Axes : 74 27 64 degrees QTcB Int : 481 ms Normal sinus rhythm Normal ECG Confirmed by Drew Deluna ([id number]), editorial assistant ENZO STANFORD ([id number]) on 07/10/2025 8:33:08 AM Referred By: RU Confirmed By: Drew Deluna
--- NOTE | 2025-07-08 16:43 | EX.ED.DYSGE1 ---
HPI History of Present Illness Chief Complaint: Syncope Detail of Chief Complaint: Syncope Informant: patient Narrative Narrative: Patient presents with syncopal episode this afternoon. Patient states that she had gone into the bathroom to have a bowel movement when she started feeling lightheaded and feeling like she was in a pass out. She tried come out of the bathroom and then passed out. She does have history of syncope. She complains of abdominal pain that she has had for more than a year but she feels like is getting worse. She denies recent illnesses or fever. She denies cough. She denies chest pain or palpitations. She denies urinary symptoms. [facility] Medical History Abdominal pain Iron deficiency anemia due to chronic blood loss Depression Anxiety Smoker Migraines TIA (transient ischemic attack) Chronic kidney disease (CKD), stage III (moderate) Vitamin D deficiency Hyperlipidemia GERD (gastroesophageal reflux disease) PTSD (post-traumatic stress disorder) Tobacco use ETOH abuse Iron (Fe) deficiency anemia History of GI bleed Chest pain Iron deficiency Insomnia Anxiety and depression Obesity (BMI 30-39.9) TMJ (temporomandibular joint syndrome) Chronic pain Hypertension ADHD (attention deficit hyperactivity disorder) Postsurgical malabsorption, not elsewhere classified B12 deficiency Anemia PUD (peptic ulcer disease) Home Medications ?Medication ?Instructions ?Recorded ?Last Taken ?Type rollator walker with seat #1 ea 10/09/20 Unknown Rx syringe with needle 1 mL 25 gauge #100 ea 03/05/21 Unknown History x 1 valacyclovir 500 mg tablet 500 mg PO DAILY Herpes Flare #90 10/28/21 01/23/25 Rx (Valtrex) tabs cyclobenzaprine 10 mg tablet 10 mg PO TID 07/24/24 07/08/25 History albuterol sulfate 90 mcg/actuation 2 puff inhalation Q4H PRN SOB, 01/25/25 01/23/25 History aerosol inhaler wheezing ferrous gluconate 324 mg (38 mg 324 mg PO DAILY 03/27/25 Unknown History iron) tablet escitalopram oxalate 10 mg tablet 10 mg PO QDAY #30 tabs 05/31/25 Unknown Rx dicyclomine 10 mg capsule 10 mg PO BID #30 caps 06/21/25 07/08/25 Rx cholecalciferol (vitamin D3) 25 25 mcg PO DAILY 07/08/25 Unknown History mcg (1,000 unit) tablet dextroamphetamine-amphetamine ER 5 1 cap PO DAILY 07/08/25 Unknown History mg 24hr capsule,extend release omeprazole 20 mg tablet,delayed 20 mg PO DAILY PRN GERD 07/08/25 07/08/25 History release Allergy/AdvReac Type Severity Reaction Status Date / Time buprenorphine (From [place]) Allergy Rash Verified 07/08/25 16:35 NSAIDS (Non-Steroidal AdvReac Nausea Verified 07/08/25 16:35 Anti-Inflamma Family History Father Myocardial infarction Alcohol abuse Heart disease CAD (coronary artery disease) Mother CVA (cerebral vascular accident) Hypertension Thrombosis Alcohol abuse Sister Lupus Surgical History History of cataract surgery Status post gastric bypass for obesity Hx of bariatric surgery S/P H/O gastric bypass (~1999) Social History household members: other details: grandson housing: house current occupational status: retired and disabled history of recent travel: No sexually active: No Smoking Status: Former smoker Smokeless tobacco user: other alcohol intake: current alcohol intake frequency: 3 or more drinks per day details: Patient reports history of at 2-tall boys daily at least. substance use type: marijuana what type of physical activity do you participate in: none and walking seatbelt use: always do you feel safe at home: Yes additional social history: single ROS ROS ED Review of Systems ROS Unobtainable: other Constitutional Constitutional ED: Reports lethargy; Denies chills, fever(s), sweats or weight loss Eyes Eyes: Denies blurry vision, change in vision or diplopia ENT ENT ED: Denies rhinorrhea or sore throat Cardiovascular Cardiovascular: Denies chest pain, orthopnea or racing heartbeat Respiratory/Chest Respiratory/Chest: Denies cough, dyspnea, dyspnea on exertion, orthopnea or sputum Gastrointestinal Gastrointestinal: Reports abdominal pain and nausea; Denies diarrhea or vomiting Genitourinary Genitourinary ED: Denies dysuria, hematuria or urinary frequency Musculoskeletal Musculoskeletal: Denies arthralgias, back pain, myalgias or neck pain Integumentary Denies abscess, Abrasions or rash Neurologic Neurologic: Reports other Details: Syncope ; Denies headache(s) or weakness Psychiatric Psychiatric: Denies anxiety, depression or suicidal thoughts Endocrine Endocrinology: Denies polydipsia, polyphagia or polyuria Hematologic/Lymphatic Hematologic/Lymphatic: Denies easy bleeding, easy bruising or lymphadenopathy Allergic/Immunologic Allergic/Immunologic ED: Denies mouth swelling, tongue swelling or urticaria EXAM Physical Exam Const Vital Signs: 07/08/25 16:29 07/08/25 16:35 07/08/25 17:41 Temperature 98.1 F Temperature Source Oral Pulse Rate 88 91 Respiratory Rate 20 H 24 H Respiratory Effort Normal Non-Labored Respiratory Pattern Normal Blood Pressure 96/61 127/76 H Blood Pressure Mean 72 93 Blood Pressure Source Blood Pressure Position Blood Pressure Location Pulse Ox 100 100 Oxygen Delivery Method Room Air Room Air 07/08/25 18:21 07/08/25 18:56 07/08/25 19:51 Temperature 98 F 98 F Temperature Source Oral Oral Pulse Rate 89 87 88 Respiratory Rate 18 16 18 Respiratory Effort Respiratory Pattern Blood Pressure 127/84 H 127/84 H 123/76 H Blood Pressure Mean 98 98 91 Blood Pressure Source Monitor Blood Pressure Position Semi-Fowlers Blood Pressure Location Left Arm Pulse Ox 100 100 100 Oxygen Delivery Method Room Air Room Air Room Air Positive well nourished and well developed General Appearance ED: well developed and NAD HEENT Reports TM's clear and moist mucous membranes normocephalic and atraumatic; Negative for trauma or tenderness Tympanic Membrane ED: Yes TM's clear Eyes PERRL and EOMs intact bilaterally General Eye ED: Negative for pale conjunctiva or scleral icterus Neck no lymphadenopathy, supple and no JVD General: Negative for tenderness Chest Wall inspection of chest normal and palpation of chest normal Chest: Negative for tenderness Resp normal respiratory effort and clear to auscultation bilaterally Effort and Inspection: Negative for respiratory distress or pain with movement Auscultation: Negative for rhonchi, wheezes or diminished lung sounds Cardio regular rate, regular rhythm, S1 normal heart sound, S2 normal heart sound and no murmurs Peripheral Pulses: pulses 2+ throughout GI normal to inspection, nondistended, normoactive bowel sounds, soft to palpation, non-distended and no masses GI Narrative: Tenderness palpation over left lower quadrant with some guarding. There is no rebound or rigidity. No mass palpated. She has old vertical surgical scar related to prior gastric bypass surgery. Rectal exam performed showed brown stool that was Hemoccult positive. No masses palpated in the rectal vault. Did not appreciate any hemorrhoids or fissures. Back/Spine no CVA tenderness and no thoracic nor lumbar tenderness Extremity normal to inspection General Extremety ED: Negative for edema General Extremity: Negative for edema Neuro oriented x3, CN's II-XII intact bilaterally, no sensory deficits noted and gait normal Sensorium / Orientation: awake, alert, oriented to person, oriented to place and oriented to time Motor Exam: strength 5/5 throughout and strength abnormal Psych mental status grossly normal Skin no rashes or lesions noted and no wounds MDM MDM MDM Narrative Medical decision making narrative: Patient presents to the emergency department syncopal episode while in the bathroom today. She is also complaining of abdominal pain. She is been having belly pain for over a year. She does describe intermittent blood in her stool. She denies chest pain or palpitations. IV established on arrival. She was placed on a site monitor. EKG obtained showed a sinus rhythm with ventricular rate of 86 bpm with no acute ST segment changes. CBC with differential obtained showed a white count of 7.1 with hemoglobin 6.6 and platelet count of 357. Chemistries unremarkable. BUN 9 and creat 1.08. First troponin was 13 and delta was 11. Alcohol was less than 10. Patient was typed and crossed for 1 unit packed red cells. Patient had a CT scan of the abdomen pelvis that showed no acute abnormalities. 1 view chest x-ray was unremarkable. Patient case will be discussed with hospitalist to evaluate patient for admission for syncope and anemia. Lab Data Attestation: I reviewed the patient's lab results. Labs: Laboratory Results - last 24 hr 07/08/25 07/08/25 07/08/25 17:14 18:15 19:01 WBC 7.1 RBC 3.20 L Hgb 6.6 L Hct 22.4 L MCV 70.0 L MCH 20.6 L MCHC 29.5 L RDW Std Deviation 46.5 H RDW Coeff of Adelia 19.4 H Plt Count 357 MPV 9.2 Immature Gran % (Auto) 0.400 Neut % (Auto) 56.5 Lymph % (Auto) 33.6 Rogers % (Auto) 7.6 Eos % (Auto) 1.6 Baso % (Auto) 0.3 Absolute Neuts (auto) 4.0 Absolute Lymphs (auto) 2.38 Nucleated RBC % 0.7 Sodium 135 Potassium 3.8 Chloride 102 Carbon Dioxide 21.0 Anion Gap 12 BUN 19 Creatinine 1.08 Estim Creat Clear Calc 48.62 L Est GFR (MDRD) Non-Af 57 L BUN/Creatinine Ratio 17.5 Glucose 118 H Calcium 9.8 Total Bilirubin 0.24 AST 17 ALT 10 Alkaline Phosphatase 66 Troponin T High Sens 13 Troponin T Hi Sens 2 Hr 11 Total Protein 6.5 Albumin 3.9 Globulin 2.6 Albumin/Globulin Ratio 1.5 Lipase 35 Ethyl Alcohol < 10.1 Blood Type A POSITIVE Antibody Screen NEGATIVE Crossmatch See Detail Radiography Diagnostic Testing: Clinical Impression(s) from Imaging Studies Chest X-Ray 07/08/25 16:41 IMPRESSION: No Acute Findings. Reading Location: [facility] Abdomen/Pelvis CT 07/08/25 18:42 IMPRESSION: No acute intra-abdominal abnormality. Hepatic steatosis. Reading Location: [facility] 1 view chest x-ray obtained interpreted by myself as no evidence of infiltrate or pneumothorax or acute disease process. Radiology in agreement. EKG Initial EKG: Attestation: I personally reviewed and interpreted this EKG as follows: Comments: Sinus rhythm with ventricular rate of 86 bpm with no acute ST segment change Discharge Plan Dx/Rx/DC Orders Clinical Impression: Syncope, Anemia, GI bleed Disposition Disposition: Acute Care Hospital [facility]
--- OUTSIDE RECORDS SUMMARY | 2025-07-08 17:11 | XMS RPT_ITS | CCD ---
Author Organization [facility] Care Team Providers Care Aircraft Engine Specialist Name Role Phone Prateek Lockhart Unavailable Care Physician, No Primary Primary Care Provider Unavailable Dr. Albert Carbone Emergency Provider Dr. Jeniffer Campos Admit Provider Dr. Jeniffer Campos Other Provider Dr. Drew Solis Attending Provider Unavailable Dr. Drew Solis Other Provider Unavailable Dr. Margarette Christensen Attending Provider Dr. Virginie Aguillon Attending Provider Dr. Virginie Aguillon Other Provider Prateek Lockhart Unavailable Hilton Johnson MD Primary Care Provider Prateek Galarza Unavailable PROVIDER, UNKNOWN Admitting Unavailable PROVIDER, UNKNOWN Attending Unavailable BUNNY YO MD Attending Unavailable BUNNY YO MD Primary Care Unavailable Unavailable Primary Care Provider UnavailJEANA Jimenez Primary Care Unavailable Care Physician, No Primary Referring Unava ilable Care Physician, No Primary Primary Care Unava ilable Angie Judd Attending Unavail able Peggy PRESCHOOL EDUCATION DIRECTOR, [place] Attending Unavailable Care Physician, No Primary Primary Care Unava ilable Peggy PRESCHOOL EDUCATION DIRECTOR, [place] Referring Unavailable Virginie Aguillon Consulting Unavailable Virginie Aguillon Admitting Unavailable Care Physician, No Primary Primary Care Unava ilable Lam Espinal Attending Unavailable Gila Reeves Referring Unavailable Lam Espinal Consulting Unavailable Care Physician, No Primary Primary Care Unava ilable Machelle Muñoz Attending Unavailable Tristan, Stoney Chi Primary Care Unavailable Tristan, Stoney Chi Referring Unavailable Lindsay, [place] Attending Unavailable Tristan, Stoney Chi Primary Care Unavailable Keesha Muñozon Attending Unavailable Tristan, Stoney Chi Primary Care Unavailable Muñoz, Machelle Attending Unavailable Tristan, Stoney Chi Primary Care Unavailable Muñoz, Machelle Attending Unavailable Care Physician, No Primary Primary Care Unava ilable Jose Rachel Attending Unavailable Care Physician, No Primary Referring Unava ilable Tristan, Stoney Chi Referring Unavailable Care Physician, No Primary Primary Care Unava ilable Angie Judd Attending Unavail able Care Physician, No Primary Primary Care Unava ilable Lindsay, Ta Attending Unavailable Lucero Aguillonge Attending Unavailable Care Physician, No Primary Primary Care Unava ilable Gila Reeves Referring Unavailable Care Physician, No Primary Primary Care Unava ilable Angie Judd Consulting Unavail able Lindsay, [place] Referring Unavailable Lindsay, Ta Attending Unavailable Tristan, Stoney Chi Attending Unavailable Tristan, Stoney Chi Primary Care Unavailable Tristan, Stoney Chi Attending Unavailable Tristan, Stoney Chi Primary Care Unavailable Tristan, Stoney Chi Primary Care Unavailable Duglas Ariza Attending Unavailable Care Physician, No Primary Primary Care Unava ilable Virginie Aguillon Consulting Unavailable Virginie Aguillon Admitting Unavailable Gila Reeves Referring Unavailable Lam Espinal Attending Unavailable Allergies Allergy Classification Reported Allergen(s) Allergy Type Date of Onset Reaction(s) Facility (19 sources) NSAIDs; Translations: [NSAIDS] Propensity to adverse reactions to drug 4 Nausea [facility] Work Phone: (8 sources) Buprenorphine; Translations: [buprenorphine] Drug Allergy 2 Rash [facility] (7 sources) Nonsteroidal Anti-inflammatory Compounds Propensity to adverse reactions 2 Nausea [facility] (1 source) Iron and iron compound; Translations: [iron containing compounds] Drug allergy [facility] (1 source) NSAIDs; Translations: [NSAIDS (NON-STEROIDAL ANTI-INFLAMMATORY DRUG)] Propensity to adverse reactions to drug (disorder) 4 [facility] (1 source) Buprenorphine Drug Allergy 5 [facility] (1 source) NSAIDs Drug allergy (disorder) 5 [facility] Medications Current Medications Medication Drug Class(es) [...] week vitamin D2 ergocalciferol (DRISDOL) 1.25 MG (03915 UT) capsule Take 1 Capsule by mouth once weekly. 12 Capsule 3 03/09/2023 03/08/2024 Active Start: 11-26-2021 take 19627 [IU] by m outh every other week Ergocalciferol (Vitamin D2) Active 14787 UNIT PO every 2 weeks November 26, 2021 4:30pm Start: 11-26-2021 End: 11-26-2021 take 00136 [IU] by mouth every week Ergocalciferol (Vitamin D2) Discontinued 03605 UNIT PO EVERY WEEK 12 90 November 26, 2021 2:13pm November 26, 2021 4:30pm Start: 06-06-2020 End: 11-26-2021 take 54194 [IU] by mouth two times weekly Ergocalciferol (Vitamin D2) Discontinued 36140 UNIT PO TWICE A WEEK 60 90 June 10, 2021 6:28pm November 26, 2021 2:13pm Start: 07-12-2019 End: 06-06-2020 take 88528 [IU] by mouth every week Ergocalciferol (Vitamin D2) Discontinued 21034 UNIT PO Q7D July 12, 2019 1:00am [...] ued 1 CAP PO DAILY 90 March 03 2021 8:32am February 16, 2023 10:50am lidocaine [...] With N eedle Active 0 .ROUTE .MEDSUPPLY 100 March 05, 2021 12:00am As directed Start: [...] by mouth every six hours Hydrocodone-Acetami nophen ([place]) 7.5-325 mg tablet Discontinued 1 TABLET PO EVERY 6 HOURS June 05, 2020 9:34am August 01, 2020 3:19pm Dr Ortega Start: 05-14-2018 [place] 325- 7.5 mg oral tablet 325-7.5, Oral, [...] Start: 01-15-2022 take 1 capsule by mo ut once daily 30 minutes before breakfast, then [...] 16, 2023 10:51am Start: 10-16-2020 medical adrian iraheta Active PO October 16, 2020 12:00am [...] September 25, 2020 12:44pm polyethylene glycol 3350 33159 mg powder for oral solution (1 source) [...] [Attention-deficit hyperactivity disorder, unspecified type] 06-05-2020 Chronic Attention-deficit, conduct, and disruptive behavior disorders (1 source) Attention-deficit hyperactivity disorder, unspecified type; Translations: [Attention-deficit hyperactivity disorder, unspecified type] Onset: Chronic Biliary tract disease (2 sources) Cholelithiasis [...] vomiting, unspecified] 07-01-2021 Episodic Nonspecific chest pain (16 sources) Chest wall pain; Translations: [Other chest [...] unspecified] 07-15-2022 Episodic Other lower respiratory disease (1 source) Other forms of dyspnea; Translations: [Other forms of dyspnea] Onset: 5 Episodic Other nervous system disorders (7 sources) [...] 05-27-2001 Chronic Unclassified (1 source) Breast feeding () (observable entity) 03-24-2018 Comment on above: System added from do cumentation. Breast feeding Status documented as Yes on Admission Unclassified (1 source) Cough, unspecified; Translations: [Cough, unspecified] Onset: 5 Past or Other Problems Problem Classification Problem Date Documented Da te Episodic/Chronic Abdominal pain (5 sources) Generalized abdominal pain; Translations: [Generalized abdominal pain] Onset: 5 03-09-2023 Episodic Complication of device; implant or [...] Test Name Value Interpretation Reference Range Facility MR/BMS.BPon 05-31-2025 MR/BMS.BP [facility] [address], [address] [place] [address] OFFICE VISIT Date of Service: 05/31/25 MR#: [id number] Acct: [id number] Name: MORENA PATTON Rep #: [id number] : 1960 Provider: KATIE dewey Age/Sex: 65/F Location[place] [facility] [place] Status: Signed Intake Vital Signs 03/27/25 11:23 05/31/25 09:49 Height 5 ft 6 in 5 ft 6 in Weight: 155 lb 151 lb BMI 25.0 24.3 BP 130/85 H 106/71 Blood Pressure Location Lt brachial Lt brachial Position Sitting Sitting Respiration 18 16 Pulse 87 69 Pulse Source Monitor Monitor BP Intake Visit Reasons: Follow up Accompanied by: Self Allergies buprenorphine (From [place]) Allergy (Verified 05/31/25 09:54) Rash NSAIDS (Non-Steroidal Anti-Inflamma Adverse Reaction (Verified 05/31/25 09:54) Nausea Medications ???Medication ???Instructions ???Recorded ???Confirmed ???Type rollator walker with seat #1 ea 10/09/20 05/31/25 Rx syringe with needle 1 mL 25 gauge #100 ea 03/05/21 05/31/25 History x 1 valacyclovir 500 mg tablet 500 mg PO DAILY Herpes Flare #90 0 10/28/21 05/31/25 Rx (Valtrex) tabs triamterene 37.5 1 cap PO DAILY 30 days #90 caps 05/31/25 Rx mg-hydrochlorothiazide 25 mg capsule cholecalciferol (vitamin D3) 25 25 mcg PO DAILY 07/24/24 05/31/25 History mcg (1,000 unit) capsule cyclobenzaprine 10 mg tablet 10 mg PO TID 07/24/24 05/31/25 His tory mirtazapine 7.5 mg tablet 7.5 mg PO QHS #30 tabs 10/10/24 Rx albuterol sulfate 90 mcg/actuation 2 puff inhalation Q4H PRN SOB, 0 01/25/25 05/31/25 History aerosol inhaler wheezing pantoprazole 40 mg tablet,delayed 40 mg PO BID 03/05/25 05/31/25 Hi story release ferrous gluconate 324 mg (38 mg mg PO 03/27/25 05/31/25 History iron) tablet dextroamphetamine-amphetam ine ER 5 5 mg PO QAM 30 days #30 caps 05/31/25 Rx mg 24hr capsule,extend release (Adderall XR) escitalopram oxalate 10 mg tablet 10 mg PO QDAY #30 tabs 05/31/25 1 Rx Have you fallen in the past year?: No PFSH Medical History (Updated 06/01/25 @ 06:55 by KATIE Willingham) Iron deficiency anemia due to chronic blood [...] PUD (peptic ulcer disease) Surgical History (Updated 05/31/25 @ 09:57 by Janee Friedman) History of cataract surgery Status post gastric bypass for obesity Hx [...] Illness History provided by: patient Chief complaint: Depression/Anxiety/Inatten tion HPI: Morena Patton is a 65 year old female patient presenting today for a follow up evaluation. Reports she has been feeling more depressed since last appointment. Has not been taking venlafaxine since last appointment. Reports she took venlafaxine for a few months and stopped. Reports a lack of energy, a lack of motivation, procrastinating more, isolating, and not wanting to be around others. Reports she has been having frequent mood swings. Admits to frequent feelings of sadness. Denies SI/HI. Reports she is frequently feeling irritable. Report she is having concerns with focus and van (more content not included)... Normal [facility] Echo Completeon 04-26-2025 Echo Complete [facility] [address] [place] [address] Echo Complete 04/26/25 0947 MR#: [id number] Acct: [id number] Name: MORENA PATTON Rep #: [id number] : 1960 65 From: Ta Montoya MD Attending Dr: Dr. Ta Montoya MD Status: MACY PHIPPS Ordering Dr: Angie Sandoval Date: 04/03 12/24 Location: [facility] Sex: F AA Admitted: Reason For Study Reason For Study: Dyspnea/SOB Procedure This was a 2D Doppler, Color Flow transthoracic echocardiogram. Exam performed in department. Left Ventricle Normal LV size. The left ventricular ejection fraction is 65 %. Stage 1 diastolic dysfunction. No regional wall motion abnormalities noted. Right Ventricle Normal RV size. Normal systolic function. Atria Normal left atrium. Normal right atrium. Mitral Valve Normal mitral valve. Trivial eccentric mitral valve insufficiency. Tricuspid Valve Normal tricuspid valve. Mild (1+) tricuspid valve insufficiency. Pulmonary artery systolic pressure is 20 mmHg. Aortic Valve Trisinus/trileaflet aortic valve. Mild (1+) aortic valve insufficiency. Pulmonic Valve Normal pulmonic valve. Great Vessels Normal aortic root. The pulmonary artery is normal size. Inferior vena cava collapse with respiration. Pericardium/Pleural No pericardial effusion. MMode/2D Measurements Calculations LVIDd: 4.1 cm IVSd: 0.93 cm Ao root diam: 3.7 cm LVIDs: 2.5 cm LVPWd: 0.93 cm RVDd: 2.9 cm FS: 37.9 % LAV(MOD-bp): 50.0 ml LVAd ap4: 24.2 cm2 SV(MOD-sp4): 42.3 ml LAV(MOD-bp) Indexed: 27.9 ml/m2 LVLd ap4: 7.1 cm SI(MOD-sp4): 23.6 ml/m2 LAV(MOD-sp2): 47.4 ml EDV(MOD-sp4): 66.5 ml LAV(MOD-sp4): 50.1 ml EDV(sp4-el): 70.0 ml LVAs ap4: 13.0 cm2 LVLs ap4: 5.9 cm ESV(MOD-sp4): 24.3 ml ESV(sp4-el): 24.3 ml EF(MOD-sp4): 63.5 % EF(sp4-el): 65.2 % SV(sp4-el): 45.7 ml LA A4 area: 18.0 cm2 LA dimension(2D): 3.0 cm RA A4 area: 10.7 cm2 TAPSE: 1.9 cm Time Measurements MV dec time: 0.26 sec Doppler Measurements Calculations MV E max hussein: 60.7 cm/sec Lat Peak E' Hussein: 7.4 cm/sec Med Peak E' Hussein: 7.9 cm/sec MV A max hussein: 88.4 cm/sec E/E' lat: 8.2 E/E' med: 7.7 MV E/A: 0.69 MV V2 max: 105.8 cm/sec MV P1/2t max hussein: 74.7 cm/sec Ao V2 max: 203.9 cm/sec MV max P.5 mmHg MV P1/2t: 85.0 msec Ao max P.6 mmHg MV V2 mean: 51.5 cm/sec Ao V2 mean: 123.6 cm/sec MV mean P.3 mmHg MV dec slope: 257.6 cm/sec2 Ao mean P.4 mmHg MV V2 VTI: 22.2 cm MVA(P1/2t): 2.6 cm2 Ao V2 VTI: 39.6 cm AV (velocity ratio): 0.77 AI max hussein: 532.9 cm/sec LV V1 max: 158.3 cm/sec MR max hussein: 519.6 cm/sec AI max P.7 mmHg LV V1 max P.0 mmHg MR max P.0 mmHg LV V1 mean P.3 mmHg AI dec slope: 359.9 cm/sec2 LV V1 mean: 108.9 cm/sec AI P1/2t: 433.7 msec LV V1 VTI: 30.4 cm PA V2 max: 103.9 cm/sec TR max hussein: 207.3 cm/sec TR max P.3 mmHg ECHO/Echo Complete Interpretation Summary The left ventricular ejection fraction is 65 %. Normal LV size. Stage 1 diastolic dysfunction. Trivial eccentric mitral valve insufficiency. Mild (1+) tricuspid valve insufficiency. Mild (1+) aortic valve insufficiency. Ordering Physician: Angie Sandoval Referring Physician: Ta Montoya Performed By: Juan Carlos Cramer RCS 04/26/25 1239 Date Ta Montoya MD CC: Dr. Ta Montoya MD; MANUELA Middleton; No Primary Care Physician Date Dictated: 04/26/2547 Date Transcribed: 04/26/25 1239 Cdl Driver: Signed Normal [facility] Stress Reporton 04-26-2025 Stress Report [facility] [address] [place] [address] MR#: [id number] Acct: [id number] Name: MORENA PATTON Rep #: [id number] : 1960 65 From: Ta Montoya MD Primary Care: Care Physician,No Primary Status: REG CLI Referring Dr: Ta Montoya MD Sex: F AA Stress Test Report Pharmacologic myocardial perfusion stress test. 65-year-old lady with a history of chest. Resting EKG demonstrates normal sinus rhythm with a rate of 88 bpm. Resting blood pressure is 118/70 mmHg. 0.4 mg of regadenoson was infused per usual protocol followed by rapid intravenous saline flush injection. Continuous EKG monitoring was performed. The maximum heart rate was 100 bpm which was 64% of max impacted heart rate the maximum workload was 1 metabolic equivalent. At rest there were no ST or T wave changes noted to suggest ischemia and at peak infusion nonspecific ST changes were noted which did not meet the criteria for ischemia. No clinical angina is noted. The final blood pressure was 112/64 mmHg. Myocardial perfusion protocol. 11.8 mCi of technetium 99m sestamibi was injected at rest. 0.4 mg of regadenoson was infused per usual protocol. At peak infusion 34 point mCi of technetium 99m sestamibi was injected stress images were obtained stress and rest images were reconstructed and compared in the short axis vertical long and horizontal long axis. Gated images were also obtained. Perfusion SPECT analysis: Review of the stress images demonstrate normal uptake of tracer noted in all areas of the myocardium. The resting images similar demonstrated normal uptake of tracer noted in all areas of the myocardium. No areas of reversibility are noted to suggest ischemia and no previous infarct is noted. Gated SPECT analysis: The gated ejection fraction is 74%. Conclusion: Normal pharmacologic myocardial perfusion stress test. Preserved ejection fraction. 04/26/25 1330 Date Ta Montoya MD CC: Dr. Ta Montoya MD; MANUELA Middleton; No Primary Care Physician Date Dictated: 04/26/251327 Date Transcribed: 04/26/251327 Cdl Driver: [place] Signed Normal [facility] Cardiology Visit Reporton Cardiology Visit Report [facility] [address] [place] [address] OFFICE VISIT Date of Service: 03/27/25 MR#: [id number] Acct: [id number] Name: MORENA PATTON Rep #: [id number] : 1960 Provider: MANUELA Tsang Age/Sex: 65/F Location[place] [facility] [place] Status: Signed HPI HPI History of Present [...] Source Monitor Intake Visit Reasons: 7 M FU Tipple Mechanic Required: No Accompanied by: Daughter In Law Is patient in pain?: No Allergies buprenorphine (From [place]rans) Allergy (Verified 03/27/25 11:15) Rash NSAIDS (Non-Steroidal [...] with activity (more content not included)... Normal [facility] CBC W/Diff, Automatedon 08- Anisocytosis Ql (Bld) 2+ Normal [facility] Comment on above: Performed By: #### L 100.0100, L500.4050, L503.6550, L503.6030 #### [facility] [address] [place], [address] PLT EST A Normal ADEQ [facility] Comment on above: Performed By: #### L 100.0100, L500.4050, L503.6550, L503.6030 #### [facility] [address] [place], [address] TARGET CELLS 2+ Normal [facility] Comment on above: Performed By: #### L 100.0100, L500.4050, L503.6550, L503.6030 #### [facility] [address] [place], [address] Comprehensive Metabolic Prof ilon 03-05-2025 Albumin [Mass/Vol] 4.2 g/dL Normal 3.4-4.8 [facility] Comment on above: Performed By: #### L 100.0100, L500.4050, L503.6550, L503.6030 #### [facility] [address] [place], [address] Albumin/Globulin [Mass ratio] 1.6 {ratio} Normal 0.9-2.4 [facility] Comment on above: Performed By: #### L 100.0100, L500.4050, L503.6550, L503.6030 #### [facility] [address] [place], [address] ALK PHOS 98 U/L Normal 35-104 [facility] Comment on above: Performed By: #### L 100.0100, L500.4050, L503.6550, L503.6030 #### [facility] [address] [place], [address] ALT [Catalytic activity/Vol] 12 U/L Normal <=34 [facility] Comment on above: Performed By: #### L 100.0100, L500.4050, L503.6550, L503.6030 #### [facility] [address] [place], [address] AST [Catalytic activity/Vol] 26 U/L Normal <=31 [facility] Comment on above: Performed By: #### L 100.0100, L500.4050, L503.6550, L503.6030 #### [facility] [address] [place], [address] Bilirubin [Mass/Vol] 0.23 mg/dL Normal 0.00-1.30 [facility] Comment on above: Performed By: #### L 100.0100, L500.4050, L503.6550, L503.6030 #### [facility] [address] [place], [address] BUN/CRE 12.9 RATIO Normal 10-20 [facility] Comment on above: Performed By: #### L 100.0100, L500.4050, L503.6550, L503.6030 #### [facility] [address] [place], [address] Calcium [Mass/Vol] 9.6 mg/dL Normal 7.6-11.0 [facility] Comment on above: Performed By: #### L 100.0100, L500.4050, L503.6550, L503.6030 #### [facility] [address] [place], [address] Chloride [Moles/Vol] 107 mmol/L Normal 98-108 [facility] Comment on above: Performed By: #### L 100.0100, L500.4050, L503.6550, L503.6030 #### [facility] [address] [place], [address] CO2 [Moles/Vol] 21.1 mmol/L Normal 21.0-32.0 [facility] Comment on above: Performed By: #### L 100.0100, L500.4050, L503.6550, L503.6030 #### [facility] [address] [place], [address] Creatinine [Mass/Vol] 0.87 mg/dL Normal 0.70-1.20 [facility] Comment on above: Performed By: #### L 100.0100, L500.4050, L503.6550, L503.6030 #### [facility] [address] [place], [address] GAP 12 Normal 5-15 [facility] Comment on above: Performed By: #### L 100.0100, L500.4050, L503.6550, L503.6030 #### [facility] [address] [place], [address] GFR/1.73 sq M.predicted among non-blacks MDRD (S/P/Bld) [Vol rate/Area] 74 mL/min/{1.73_m2} Normal >60 [facility] Comment on above: Result Comment: mL/m in/1.73m2 CKD-EPI Creatinine Equation (2020) Performed By: #### L 100.0100, L500.4050, L503.6550, L503.6030 #### [facility] [address] [place], [address] Globulin (S) [Mass/Vol] 2.7 g/dL Normal 2.2-4.2 [facility] Comment on above: Performed By: #### L 100.0100, L500.4050, L503.6550, L503.6030 #### [facility] [address] [place], [address] Glucose [Mass/Vol] 108 mg/dL High 70-99 [facility] Comment on above: Performed By: #### L 100.0100, L500.4050, L503.6550, L503.6030 #### [facility] [address] [place], [address] Potassium [Moles/Vol] 4.3 mmol/L Normal 3.3-5.1 [facility] Comment on above: Performed By: #### L 100.0100, L500.4050, L503.6550, L503.6030 #### [facility] [address] [place], [address] Sodium [Moles/Vol] 140 mmol/L Normal 133-145 [facility] Comment on above: Performed By: #### L 100.0100, L500.4050, L503.6550, L503.6030 #### [facility] [address] [place], [address] T PROT 6.9 g/dL Normal 5.9-8.4 [facility] Comment on above: Performed By: #### L 100.0100, L500.4050, L503.6550, L503.6030 #### [facility] [address] [place], [address] Urea nitrogen [Mass/Vol] 11 mg/dL Normal 4-19 [facility] Comment on above: Performed By: #### L 100.0100, L500.4050, L503.6550, L503.6030 #### [facility] [address] [place], [address] Ferritinon 03-05-2025 Ferritin [Mass/Vol] 36 ng/mL Normal 22-378 [facility] Comment on above: Performed By: #### L 100.0100, L500.4050, L503.6550, L503.6030 #### [facility] [address] [place], [address] Iron+Iron Binding Capacityon 03-05-2025 Iron [Mass/Vol] 42 ug/dL Low 50-170 [facility] Comment on above: Performed By: #### L 100.0100, L500.4050, L503.6550, L503.6030 #### [facility] [address] [place], [address] IRON SATURATION 11.0 Low 13-59 [facility] Comment on above: Performed By: #### L 100.0100, L500.4050, L503.6550, L503.6030 #### [facility] [address] [place], [address] TIBC 382 ug/dL Normal 250-450 [facility] Comment on above: Performed By: #### L 100.0100, L500.4050, L503.6550, L503.6030 #### [facility] [address] [place], [address] UIBC 340 ug/dL Normal 228-428 [facility] Comment on above: Performed By: #### L 100.0100, L500.4050, L503.6550, L503.6030 #### [facility] [address] [place], [address] Oncology Visit Reporton Oncology Visit Report [facility] [address] [place] [address] OFFICE VISIT Date of Service: 03/05/25 1152 MR#: [id number] Acct: [id number] Name: MORENA PATTON Rep #: [id number] : 1960 From: Jose Rachel MD Age/Sex: 65/F Location[place] [facility] [place] Status: Signed HPI Subjective Date of Service [...] transfer of her hematology care to myself. [facility] Medical History (Updated 03/05/25 @ 12:10 by [...] 100 Oxygen Delivery Method room air Intake Tipple Mechanic Required: No Accompanied by: Grandson Is patient in pain?: Yes (headache) Pain scale (1-10): 5 Allergies buprenorphine (From [place]rans) Allergy (Verified 03/05/25 11:55) Rash NSAIDS (Non-Steroidal Anti-Inflamma Adverse Reaction (Verified 03/05/25 11:5 (more content not included)... Normal [facility] Vitamin B12on 03-05-2025 Cobalamin (Vitamin B12) [Mass/Vol] 442 pg/mL Normal 180-914 [facility] Comment on above: Order Comment: ADD O N Performed By: #### L 503.0106 #### [facility] [address] 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 Could not absorb oral iron) Disposition Disposition (needs filled in before D/C Order can be placed): Home, Self Care 01/27/25 1151 Lam Espinal MD CC: Dr. Virginie Aguillon MD; No Primary Care Physician Signed Normal [facility] Basic Metabolic Profile (BMP )on 01-26-2025 BUN/CRE 13.3 RATIO Normal 10-20 [facility] Comment on above: Performed By: #### L 503.0106 #### [facility] [address] [place], [address] Calcium [Mass/Vol] 9.0 mg/dL Normal 7.6-11.0 [facility] Comment on above: Performed By: #### L 503.0106 #### [facility] [address] [place], [address] Chloride [Moles/Vol] 107 mmol/L Normal 98-108 [facility] Comment on above: Performed By: #### L 503.0106 #### [facility] [address] [place], [address] CO2 [Moles/Vol] 18.7 mmol/L Low 21.0-32.0 [facility] Comment on above: Performed By: #### L 503.0106 #### [facility] [address] [place], [address] Creatinine [Mass/Vol] 0.92 mg/dL Normal 0.70-1.20 [facility] Comment on above: Performed By: #### L 503.0106 #### [facility] [address] [place], [address] ECRCL 57.83 ml/min Normal 50-250 [facility] Comment on above: Performed By: #### L 503.0106 #### [facility] [address] [place], [address] GAP 11 Normal 5-15 [facility] Comment on above: Performed By: #### L 503.0106 #### [facility] [address] [place], [address] GFR/1.73 sq M.predicted among non-blacks MDRD (S/P/Bld) [Vol rate/Area] 70 mL/min/{1.73_m2} Normal >60 [facility] Comment on above: Result Comment: mL/m in/1.73m2 CKD-EPI Creatinine Equation (2020) Performed By: #### L 503.0106 #### [facility] [address] [place], [address] Glucose [Mass/Vol] 90 mg/dL Normal 70-99 [facility] Comment on above: Performed By: #### L 503.0106 #### [facility] [address] [place], [address] Potassium [Moles/Vol] 3.8 mmol/L Normal 3.3-5.1 [facility] Comment on above: Performed By: #### L 503.0106 #### [facility] [address] [place], [address] Sodium [Moles/Vol] 136 mmol/L Normal 133-145 [facility] Comment on above: Performed By: #### L 503.0106 #### [facility] [address] [place], [address] Urea nitrogen [Mass/Vol] 12 mg/dL Normal 4-19 [facility] Comment on above: Performed By: #### L 503.0106 #### [facility] [address] [place], [address] CBC W/Diff, Automatedon -2 TEAR DROP 1+ Normal [facility] Comment on above: Performed By: #### L 100.0100, L501.9520, L500.2500 #### [facility] [address] [place], [address] SCHISTOCYTES 1+ Normal [facility] Comment on above: Performed By: #### L 100.0100, L501.9520, L500.2500 #### [facility] [address] [place], [address] TARGET CELLS 1+ Normal [facility] Comment on above: Performed By: #### L 100.0100, L501.9520, L500.2500 #### [facility] [address] [place], [address] Anisocytosis Ql (Bld) 1+ Normal [facility] Comment on above: Performed By: #### L 100.0100, L501.9520, L500.2500 #### [facility] [address] [place], [address] MACROCYTOSIS 1+ Normal [facility] Comment on above: Performed By: #### L 100.0100, L501.9520, L500.2500 #### [facility] [address] [place], [address] POLYCHROMASIA 1+ Normal [facility] Comment on above: Performed By: #### L 100.0100, L501.9520, L500.2500 #### [facility] [address] [place], [address] Gastric Emptying Studyon Gastric Emptying Study [facility] Imaging Services [address] [place] [address] Gastric Emptying Study MR#: [id number] Acct: [id number] Name: MORENA PATTON Rep #: [id number] : 1960 F 64 From: Drew Santiago PCP: Care Physician,No Primary Status: ADM CYRIL Study: Gastric Emptying Study Date of Exam: 01/26/25 Exam# [id number] Ordering Dr: Virginie Aguillon MD PROCEDURE: GASTRIC [...] geometric mean was used to calculate a zeyo-fetgbcts-yzqjd. Medications taken in the past 24 hours [...] semi solid phase gastric emptying Reading Location: [place] [address] CC: Dr. Gila Reeves DO; Dr. Virginie Aguillon MD; Dr. Lam Espinal MD; No Primary Care Physician Cdl Driver: Signed Normal [facility] Iron+Iron Binding Capacityon 01-26-2025 TIBC 501 ug/dL High 250-450 [facility] Comment on above: Performed By: #### L 503.0106 #### [facility] [address] [facility] [place], [address] Thyroid Stim Hormone (TSH)on 01-26-2025 TSH 2.830 uIU/mL Normal 0.300-4.20 0 [facility] Comment on above: Performed By: #### L 503.0106 #### [facility] [address] [facility] [place], [address] Abdomen/Pelvis W IV Cont ONL Yon 01-25-2025 Abdomen/Pelvis W IV Cont ONLY [facility] Imaging Services [address] [facility] [place] [address] Abdomen/Pelvis W IV Cont ONLY MR#: [id number] Acct: [id number] Name: MORENA PATTON Rep #: [id number] : 1960 F 64 From: Javad juarez MD PCP: Care Physician,No Primary Status: REG ER Study: Abdomen/Pelvis W IV Cont ONLY Date of Exam: Exam# [id number] Ordering Dr: Gila Reeves DO PROCEDURE: ABDOMEN/PELVIS [...] No acute abnormality is seen. Reading Location: [id number] CC: Dr. Gila Reeves DO; No Primary Care Physician Cdl Driver: Signed Normal [facility] CBC W/Diff, Automatedon 01-01 PLT EST ADEQUATE Normal ADEQ [facility] Comment on above: Performed By: #### L 500.4050, L501.2450, L100.0100 #### [facility] [address] [facility] [place], [address] CTA Chest W/WO Contraston CTA Chest W/WO Contrast [facility] Imaging Services [address] [place], [place] [address] CTA Chest W/WO Contrast MR#: [id number] Acct: [id number] Name: MORENA PATTON Rep #: [id number] : 1960 F 64 From: Javad juarez MD PCP: Care Physician,No Primary Status: REG ER Study: CTA Chest W/WO Contrast Date of Exam: 01/25/25 Exam# [id number] Ordering Dr: Gila Reeves DO PROCEDURE: CTA [...] No evidence of pulmonary embolism. Reading Location: [facility] CC: Dr. Gila Reeves DO; No Primary Care Physician Cdl Driver: Signed Normal [facility] Chest PA and Lateralon 01-25 Chest PA and Lateral [facility] Imaging Services [address] [place], [place] [id number] Chest PA and Lateral MR#: [id number] Acct: [id number] Name: MORENA PATTON Rep #: [id number] : 1960 F 64 From: Drew Santiago PCP: Care Physician,No Primary Status: REG ER Study: Chest PA and Lateral Date of Exam: 01/25/25 Exam# [id number] Ordering Dr: Gila Reeves DO PROCEDURE: CHEST [...] interval osseous change is seen. Reading Location: [place] [address] CC: Dr. Gila Reeves DO; No Primary Care Physician Cdl Driver: Signed Normal [facility] Comprehensive Metabolic Prof ilon 01-25-2025 Albumin [Mass/Vol] 4.3 g/dL Normal 3.4-4.8 [facility] Comment on above: Performed By: #### L 500.4050, L501.2450, L100.0100 #### [facility] [address] [place], [address] Albumin/Globulin [Mass ratio] 1.4 {ratio} Normal 0.9-2.4 [facility] Comment on above: Performed By: #### L 500.4050, L501.2450, L100.0100 #### [facility] [address] [place], [address] ALK PHOS 104 U/L Normal 35-104 [facility] Comment on above: Performed By: #### L 500.4050, L501.2450, L100.0100 #### [facility] [address] [place], [address] ALT [Catalytic activity/Vol] 15 U/L Normal <=34 [facility] Comment on above: Performed By: #### L 500.4050, L501.2450, L100.0100 #### [facility] [address] [place], [address] AST [Catalytic activity/Vol] 30 U/L Normal <=31 [facility] Comment on above: Result Comment: Hemo lysis present, Results??could be affected. ?? Performed By: #### L 500.4050, L501.2450, L100.0100 #### [facility] [address] [place], [address] Bilirubin [Mass/Vol] 0.24 mg/dL Normal 0.00-1.30 [facility] Comment on above: Performed By: #### L 500.4050, L501.2450, L100.0100 #### [facility] [address] [place], [address] BUN/CRE 16.0 RATIO Normal 10-20 [facility] Comment on above: Performed By: #### L 500.4050, L501.2450, L100.0100 #### [facility] [address] [place], [address] Calcium [Mass/Vol] 9.6 mg/dL Normal 7.6-11.0 [facility] Comment on above: Performed By: #### L 500.4050, L501.2450, L100.0100 #### [facility] [address] [place], [address] Chloride [Moles/Vol] 102 mmol/L Normal 98-108 [facility] Comment on above: Performed By: #### L 500.4050, L501.2450, L100.0100 #### [facility] [address] [place], [address] CO2 [Moles/Vol] 19.7 mmol/L Low 21.0-32.0 [facility] Comment on above: Performed By: #### L 500.4050, L501.2450, L100.0100 #### [facility] [address] [place], [address] Creatinine [Mass/Vol] 1.09 mg/dL Normal 0.70-1.20 [facility] Comment on above: Performed By: #### L 500.4050, L501.2450, L100.0100 #### [facility] [address] [place], [address] ECRCL 48.81 ml/min Low 50-250 [facility] Comment on above: Performed By: #### L 500.4050, L501.2450, L100.0100 #### [facility] [address] [place], [address] GAP 13 Normal 5-15 [facility] Comment on above: Performed By: #### L 500.4050, L501.2450, L100.0100 #### [facility] [address] [place], [address] GFR/1.73 sq M.predicted among non-blacks MDRD (S/P/Bld) [Vol rate/Area] 57 mL/min/{1.73_m2} Low >60 [facility] Comment on above: Result Comment: mL/m in/1.73m2 CKD-EPI Creatinine Equation (2020) Performed By: #### L 500.4050, L501.2450, L100.0100 #### [facility] [address] [place], [address] Globulin (S) [Mass/Vol] 3.1 g/dL Normal 2.2-4.2 [facility] Comment on above: Performed By: #### L 500.4050, L501.2450, L100.0100 #### [facility] [address] [place], [address] Glucose [Mass/Vol] 101 mg/dL High 70-99 [facility] Comment on above: Performed By: #### L 500.4050, L501.2450, L100.0100 #### [facility] [address] [place], [address] Potassium [Moles/Vol] 4.2 mmol/L Normal 3.3-5.1 [facility] Comment on above: Result Comment: Hemo lysis present, Results??could be affected. ?? Performed By: #### L 500.4050, L501.2450, L100.0100 #### [facility] [address] [place], [address] Sodium [Moles/Vol] 135 mmol/L Normal 133-145 [facility] Comment on above: Performed By: #### L 500.4050, L501.2450, L100.0100 #### [facility] [address] [place], [address] T PROT 7.4 g/dL Normal 5.9-8.4 [facility] Comment on above: Performed By: #### L 500.4050, L501.2450, L100.0100 #### [facility] [address] [place], [address] Urea nitrogen [Mass/Vol] 17 mg/dL Normal 4-19 [facility] Comment on above: Performed By: #### L 500.4050, L501.2450, L100.0100 #### [facility] [address] [place], [address] Emergency Department Summary on 01-25-2025 Emergency Department Summary [facility] Medical Records Department [address] [place] [address] Emergency Department Summary 01/25/25 MR#: [id number] Acct: [id number] Name: MORENA PATTON Rep #: [id number] : 1960 64 From: Gila Reeves DO PCP: Care Physician,No Primary Status:ADM CYRIL Location: MS3 EQ055-5 HPI History of Present Illness Chief Complaint: Dizziness [...] She came in for further evaluation with [facility] Medical History (Updated 01/26/25 @ 00:17 by [...] Reaction Status Date / Time buprenorphine (From [facility]) Allergy Rash Verified 01/25/25 19:32 NSAIDS (Non-Steroidal [...] weakness Psychi (more content not included)... Normal [facility] Ferritinon 01-25-2025 Ferritin [Mass/Vol] 13 ng/mL Low 22-378 [facility] Comment on above: Performed By: #### L 503.0106 #### [facility] [address] [place], [address] H AND P Exam - Hospitaliston 01-25-2025 H&P Exam - Hospitalist [facility] Medical Records Department [address] [place] [address] H P Exam - Hospitalist 01/25/25 1855 MR#: [id number] Acct: [id number] Name: MORENA PATTON Rep #: [id number] : 1960 64 From: Virginie Aguillon MD PCP: Care Physician,No Primary Status:REG ER Location: ED HPI - General General Date of Admission: 01/25/25 Date of Service: 01/25/25 Chief Complaint: Abdominal pain, weakness HPI Narrative MORENA PATTON, is a 64-year-old female history of GERD, PTSD, PUD, hypertension, depression presented to [facility] ED 01/25/2025 with left upper quadrant pain, [...] fevers., No other new or acute complaints [facility] Medical History (Updated 01/25/25 @ 19:41 by [...] you par (more content not included)... Normal [facility] L503.7505on 01-25-2025 Natriuretic peptide B (Bld) [Mass/Vol] 95 pg/mL Normal <=900 [facility] Comment on above: Result Comment: Hear t Failure Unlikely: < 300 pg/mL Heart Failure Likely < 50 Years: > 450 pg/mL 50-75 Years: > 900 pg/mL >75 Years: > 1800 pg/mL Performed By: #### L 500.4050, L501.2450, L100.0100 #### [facility] [address] [place], [address] Lipaseon 01-25-2025 Lipase [Catalytic activity/Vol] 44 U/L Normal 13-75 [facility] Comment on above: Result Comment: Quinten gruber note: LIPASE revised reference range effective 22. New Lipase methodology. Expected to produce lower values than the previous assay method. NEW Reference Range: 13 - 75 U/L Performed By: #### L 500.4050, L501.2450, L100.0100 #### [facility] [address] [place], [address] Retic Panelon 01-25-2025 IM RET FRACTION 39.90 High 3.00-15.90 [facility] Comment on above: Performed By: #### L 503.0106 #### [facility] [address] [place], [address] RET-HE 24.7 pg Low 30-35 [facility] Comment on above: Performed By: #### L 503.0106 #### [facility] [address] [place], [address] Retic Count 1.43 Normal 0.5-1.5 [facility] Comment on above: Performed By: #### L 503.0106 #### [facility] [address] [place], [address] Stool Occult Blood iFOBon STOB Negative Normal [facility] Comment on above: Performed By: #### M 100.7900 #### [facility] [address] [place], [address] Urinalysis, Completeon 01-25 EPI,SQUAMOUS 0-5 SEEN Normal 5-10 [facility] Comment on above: Order Comment: ADD O N Performed By: #### L 503.0106 #### [facility] [address] [place], [address] RBC 0-5 SEEN Normal 0-5 [facility] Comment on above: Order Comment: ADD O N Performed By: #### L 503.0106 #### [facility] [address] [place], [place], [address] WBC 0-5 SEEN Normal 0-5 [facility] Comment on above: Order Comment: ADD O N Performed By: #### L 503.0106 #### [facility] [address] [place], [address] BACTERIA 0 SEEN Normal None Seen [facility] Comment on above: Order Comment: ADD O N Performed By: #### L 503.0106 #### [facility] [address] [place], [place], [address] Mucus Ql (Urine sed) 0 SEEN Normal [facility] Comment on above: Order Comment: ADD O N Performed By: #### L 503.0106 #### [facility] [address] [place], [place], [address] MR/BMS.BPon 12-15-2024 MR/BMS.[address], [address] [place] [address] OFFICE VISIT Date of Service: 12/15/24 MR#: [id number] Acct: [id number] Name: MORENA PATTON Rep #: [id number] : 1960 Provider: KATIE dewey Age/Sex: 64/F Location: [facility].BP Status: Signed Intake Vital Signs 10/10/24 08:10 [...] Appetite is (more content not included)... Normal [facility] MR/BMS.BPon 10-10-2024 MR/BMS.BP [address], [address] [place] [address] OFFICE VISIT Date of Service: 10/10/24 MR#: [id number] Acct: [id number] Name: MORENA PATTON Rep #: [id number] : 1960 Provider: KATIE dewey Age/Sex: 64/F Location: [facility] Status: Signed Intake Vital Signs 08/22/24 07:39 [...] 7wfu Accompanied by: Self Allergies buprenorphine (From [place]) Allergy (Verified 10/10/24 08:39) Rash NSAIDS (Non-Steroidal [...] 31-40 years (more content not included)... Normal [facility] Culture, Blood (WB)on 2024 CUB Blood cultures x2, f rom two different sites No growth in 5 days. Normal [facility] Comment on above: Performed By: #### L 500.4050, L501.2450, L100.0100 #### [facility] [address] [place] [place], [address] 12 Lead EKG performed by [facility] on 08-30-2024 12 Lead EKG performed by [facility] [address] [place] [place] [address] 12 Lead EKG performed by [facility] 08/30/24 0935 MR#: [id number] Acct: [id number] Name: MORENA PATTON Rep #: [id number] : 1960 64 From: Ta Montoya MD Attending Dr: Dr. Ta Montoya MD Status: DEP A TOYA Ordering Dr: Ta Montoya MD Date: 08/30/24 Location: [facility] Sex: F AA Admitted: [facility]/12 Lead EKG performed by [facility] ECG Report Interpretation Sinus Rhythm -Left atrial enlargement. BORDERLINEElectronically signed on 08/30/2024 at 15:15 by Ta Montoya [employer] Version 8610 08/30/24 2707 Date Ta Montoya MD CC: Dr. Stoney Hudson MD Date Dictated: 08/30/24934 Date Transcribed: 08/30/24934 Cdl Driver: CO Signed Normal [facility] Cardiology Visit Reporton Cardiology Visit Report [facility] [address] [place] [address] OFFICE VISIT Date of Service: 08/30/24 MR#: [id number] Acct: [id number] Name: MORENA PATTON Rep #: [id number] : 1960 Provider: Dr. 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 Normal [facility] Urine Cultureon 08-28-2024 URC Mixed Gram Positive Organisms Purdin Count 11,000-25,000 MIXC Mixed contaminants. Submit a new specimen if indicated. Normal [facility] Comment on above: Performed By: #### L 500.4050, L501.2450, L100.0100 #### [facility] [address] [place], [address] 12 Lead EKGon 08-26-2024 12 Lead EKG [facility] [address] [place] [address] 12 Lead EKG 08/26/24 1710 MR#: [id number] Acct: [id number] Name: ALEKMORENA Rep #: [id number] : 1960 64 From: London Dupont MD [...] Borderline ECG Confirmed by TERRANCE WOO, JULIO ([id number]), editor city ENZO STANFORD ([id number]) on 08/29/2024 6:13:58 AM Referred By: Confirmed By: JULIO DUPONT MD 08/29/24612 Date London Dupont MD CC: Dr. Stoney Hudson MD; Dr. Duglas Ariza DO Signed Normal [facility] CBC W/Diff, Automatedon 08-03 Absolute Lymph 1.30 X10 3/uL Normal 0.83-4.51 [facility] Comment on above: Performed By: #### L 500.4050, L501.2450, L100.0100 #### [facility] [address] [place], [address] Absolute Neut 1.8 X10 3/uL Low 2.0-7.7 [facility] Comment on above: Performed By: #### L 500.4050, L501.2450, L100.0100 #### [facility] [address] [place], [address] Basophils/100 WBC (Bld) 0.6 % Normal 0-1 [facility] Comment on above: Performed By: #### L 500.4050, L501.2450, L100.0100 #### [facility] [address] [place], [address] Eosinophils/100 WBC (Bld) 0.0 % Normal 0-5 [facility] Comment on above: Performed By: #### L 500.4050, L501.2450, L100.0100 #### [facility] [address] [place], [address] Erythrocyte distribution width (RBC) [Ratio] 16.7 % High 11.6-14.6 [facility] Comment on above: Performed By: #### L 500.4050, L501.2450, L100.0100 #### [facility] [address] [place], [address] Hematocrit (Bld) [Volume fraction] 35.4 % Low 37-47 [facility] Comment on above: Performed By: #### L 500.4050, L501.2450, L100.0100 #### [facility] [address] [place], [address] Hemoglobin (Bld) [Mass/Vol] 11.4 g/dL Low 12.0-15.0 [facility] Comment on above: Performed By: #### L 500.4050, L501.2450, L100.0100 #### [facility] [address] [place], [address] IG% 0.300 Normal 0.0-0.9 [facility] Comment on above: Result Comment: IG% - Immature Granulocytes (promyelocytes, myelocytes and metamyelocytes) > 1% indicates that a LEFT SHIFT is Present. Performed By: #### L 500.4050, L501.2450, L100.0100 #### [facility] [address] [place], [address] Lymphocytes/100 WBC (Bld) 37.7 % Normal 19-41 [facility] Comment on above: Performed By: #### L 500.4050, L501.2450, L100.0100 #### [facility] [address] [place], [address] MCH (RBC) [Entitic mass] 23.9 pg Low 27.0-32.0 [facility] Comment on above: Performed By: #### L 500.4050, L501.2450, L100.0100 #### [facility] [address] [place], [address] MCHC (RBC) [Mass/Vol] 32.2 g/dL Normal 32-36 [facility] Comment on above: Performed By: #### L 500.4050, L501.2450, L100.0100 #### [facility] [address] [place], [address] MCV (RBC) [Entitic vol] 74.2 fL Low 81-99 [facility] Comment on above: Performed By: #### L 500.4050, L501.2450, L100.0100 #### [facility] [address] [place], [address] Monocytes/100 WBC (Bld) 10.1 % High 0-10 [facility] Comment on above: Performed By: #### L 500.4050, L501.2450, L100.0100 #### [facility] [address] [place], [address] Neutrophils/100 WBC (Bld) 51.3 % Normal 47-70 [facility] Comment on above: Performed By: #### L 500.4050, L501.2450, L100.0100 #### [facility] [address] [place], [address] Nucleated RBC (Bld) [#/Vol] 0 10*3/uL Normal 0-5 [facility] Comment on above: Performed By: #### L 500.4050, L501.2450, L100.0100 #### [facility] [address] [place], [address] Platelet mean volume (Bld) [Entitic vol] 10.0 fL Normal 6.2-12.0 [facility] Comment on above: Performed By: #### L 500.4050, L501.2450, L100.0100 #### [facility] [address] [place], [address] Platelets (Bld) [#/Vol] 253 10*3/uL Normal 150-450 [facility] Comment on above: Performed By: #### L 500.4050, L501.2450, L100.0100 #### [facility] [address] [place], [address] RBC (Bld) [#/Vol] 4.77 10*6/uL Normal 4.2-5.4 [facility] Comment on above: Performed By: #### L 500.4050, L501.2450, L100.0100 #### [facility] [address] [place], [address] RDW SD 44.5 fl High 35.1-43.9 [facility] Comment on above: Performed By: #### L 500.4050, L501.2450, L100.0100 #### [facility] [address] [place], [address] WBC (Bld) [#/Vol] 3.5 10*3/uL Low 4.4-11.0 [facility] Comment on above: Performed By: #### L 500.4050, L501.2450, L100.0100 #### [facility] [address] [place], [address] Chest 1 View (Portable)on Chest 1 View (Portable) [facility] Imaging Services [address] [place] [address] Chest 1 View (Portable) MR#: [id number] Acct: [id number] Name: MORENA PATTON Rep #: [id number] : 1960 F 64 From: Ronenll jackman MD PCP: Dr. Stoney Hudson MD Status: REG ER Study: Chest 1 View (Portable) Date of Exam: 08/26/24 Exam# [id number] Ordering Dr: Duglas Ariza DO [id number] INDICATION: SOB EXAMINATION/TECHNIQUE: X-RAY - XR Chest 1 View COMPARISON: 04/01/2024. FINDINGS: The lungs are clear. Tortuous and calcified thoracic aorta. The heart is not enlarged. No pleural effusion or pneumothorax. No acute osseous abnormalities. RAD/Chest 1 View (Portable) IMPRESSION: No acute radiographic abnormalities. Electronically Signed: Ronnell Dan MD at 20:10 EST , CC: Dr. Stoney Hudson MD; Dr. Duglas Ariza DO Cdl Driver: Signed Normal [facility] Comprehensive Metabolic Prof ilon 08-26-2024 Albumin [Mass/Vol] 3.4 g/dL Normal 3.2-5.0 [facility] Comment on above: Performed By: #### L 500.4050, L501.2450, L100.0100 #### [facility] [address] [place], [address] Albumin/Globulin [Mass ratio] 0.8 {ratio} Low 0.9-2.4 [facility] Comment on above: Performed By: #### L 500.4050, L501.2450, L100.0100 #### [facility] [address] [place], [address] ALK P 100 U/L Normal 45-117 [facility] Comment on above: Performed By: #### L 500.4050, L501.2450, L100.0100 #### [facility] [address] [place], [address] ALT [Catalytic activity/Vol] 20 U/L Normal 13-56 [facility] Comment on above: Performed By: #### L 500.4050, L501.2450, L100.0100 #### [facility] [address] [place], [address] AST [Catalytic activity/Vol] 37 U/L Normal 15-37 [facility] Comment on above: Performed By: #### L 500.4050, L501.2450, L100.0100 #### [facility] [address] [place], [address] Bilirubin [Mass/Vol] 0.30 mg/dL Normal 0.20-1.00 [facility] Comment on above: Result Comment: For patients on eltrombopag therapy, use of Dimension [place] TBIL is not recommended. Performed By: #### L 500.4050, L501.2450, L100.0100 #### [facility] [address] [place], [address] BUN/CRE 12.5 RATIO Normal 10-20 [facility] Comment on above: Performed By: #### L 500.4050, L501.2450, L100.0100 #### [facility] [address] [place], [address] CA,Total 9.3 mg/dL Normal 8.5-10.1 [facility] Comment on above: Performed By: #### L 500.4050, L501.2450, L100.0100 #### [facility] [address] [place], [address] Chloride [Moles/Vol] 102 mmol/L Normal 98-107 [facility] Comment on above: Performed By: #### L 500.4050, L501.2450, L100.0100 #### [facility] [address] [place], [address] CO2 [Moles/Vol] 23.0 mmol/L Normal 21.0-32.0 [facility] Comment on above: Performed By: #### L 500.4050, L501.2450, L100.0100 #### [facility] [address] [place], [address] Creatinine [Mass/Vol] 1.28 mg/dL High 0.55-1.02 [facility] Comment on above: Result Comment: The validity of the calculated GFR GFRAA in patients over 70 years has not been determined. Clinical correlation is essential. Performed By: #### L 500.4050, L501.2450, L100.0100 #### [facility] [address] [place], [address] EST GFR - AA 54 mL/min Low >60 [facility] Comment on above: Result Comment: Afri can Norwegian GFR Calc Performed By: #### L 500.4050, L501.2450, L100.0100 #### [facility] [address] [place], [address] GAP 9 Normal 5-15 [facility] Comment on above: Performed By: #### L 500.4050, L501.2450, L100.0100 #### [facility] [address] [place], [address] GFR/1.73 sq M.predicted among non-blacks MDRD (S/P/Bld) [Vol rate/Area] 45 mL/min/{1.73_m2} Low >60 [facility] Comment on above: Result Comment: Non- GFR Calc Performed By: #### L 500.4050, L501.2450, L100.0100 #### [facility] [address] [place], [address] Globulin (S) [Mass/Vol] 4.0 g/dL Normal 2.2-4.2 [facility] Comment on above: Performed By: #### L 500.4050, L501.2450, L100.0100 #### [facility] [address] [place], [address] Glucose [Mass/Vol] 103 mg/dL Normal 74-106 [facility] Comment on above: Result Comment: Fast ing Glucose result from 100 to 125 mg/dL suggests IMPAIRED HOMEOSTASIS per A.D.A. criteria. Performed By: #### L 500.4050, L501.2450, L100.0100 #### [facility] [address] [place], [address] Potassium [Moles/Vol] 3.8 mmol/L Normal 3.5-5.1 [facility] Comment on above: Performed By: #### L 500.4050, L501.2450, L100.0100 #### [facility] [address] [place], [address] Sodium [Moles/Vol] 134 mmol/L Low 136-145 [facility] Comment on above: Performed By: #### L 500.4050, L501.2450, L100.0100 #### [facility] [address] [place], [address] T PROT 7.4 g/dL Normal 6.4-8.2 [facility] Comment on above: Performed By: #### L 500.4050, L501.2450, L100.0100 #### [facility] [address] [place], [address] Urea nitrogen [Mass/Vol] 16 mg/dL Normal 7-18 [facility] Comment on above: Performed By: #### L 500.4050, L501.2450, L100.0100 #### [facility] [address] [place], [address] Emergency Department Summary on 08-26-2024 Emergency Department Summary [facility] Records Department [address] [place] [address] Emergency Department Summary 08/26/24 MR#: [id number] Acct: [id number] Name: MORENA PATTON Rep #: [id number] : 1960 64 From: Duglas Ariza DO PCP: Dr. Stoney Hudson MD Status:REG ER Location: ED HPI History of Present Illness Chief Complaint: General Illness [facility] Medical History (Updated 08/26/24 @ 19:53 by [...] Social History (Updated 04/11/24 @ 14:34 by Betet Mcwilliams) household members: other details: grandson housing: [...] No murmur (more content not included)... Normal [facility] Lactic Acidon 08-26-2024 Lactate [Moles/Vol] 1.3 mmol/L Normal 0.4-1.9 [facility] Comment on above: Order Comment: Y Performed By: #### L 500.4050, L501.2450, L100.0100 #### [facility] [address] [place], [address] M100.678on 08-26-2024 SARS-CoV-2 (COVID-19) Ab IA Ql FLUABV+SARS-CoV-2+RSV Pnl Resp BISI+probe Copy of report sent to Infection Control Printer [id number] 08/26/24 1810 PRATIK. FLUABV+SARS-CoV-2+RSV Pnl Resp BISI+probe RESULTS CALLED TO A. SELF 08/26/24 1810 Sunita Magdaleno. REPORT READ BACK BY . SAME SARS-CoV-2 (COVID 19) Negative INFLUENZA A A Positive A INFLUENZA B Negative RSV PCR Negative INFLUENZAE A Normal [facility] Comment on above: Performed By: #### L 500.4050, L501.2450, L100.0100 #### [facility] [address] [place], [address] Partial Thromboplast Timeon 08-26-2024 aPTT Coag (Bld) [Time] 27.5 s Normal 24.1-36.2 [facility] Comment on above: Performed By: #### L 500.4050, L501.2450, L100.0100 #### [facility] [address] [place], [address] Prothrombin Time w/INRon INR Coag (PPP) [Relative time] 0.9 {INR} Normal [facility] Comment on above: Performed By: #### L 500.4050, L501.2450, L100.0100 #### [facility] [address] [place], [address] PT Coag (PPP) [Time] 11.8 s Normal 11.7-14.9 [facility] Comment on above: Performed By: #### L 500.4050, L501.2450, L100.0100 #### [facility] [address] [place], [address] Urinalysis, Completeon 08-26 BACTERIA RARE Normal None Seen [facility] Comment on above: Order Comment: COLLE CTOR TO SPECIFY Performed By: #### L 500.4050, L501.2450, L100.0100 #### [facility] [address] [place], [address] EPI,SQUAMOUS 0-5 SEEN Normal 5-10 [facility] Comment on above: Order Comment: COLLE CTOR TO SPECIFY Performed By: #### L 500.4050, L501.2450, L100.0100 #### [facility] [address] [place], [address] RBC 0-5 SEEN Normal 0-5 [facility] Comment on above: Order Comment: COLLE CTOR TO SPECIFY Performed By: #### L 500.4050, L501.2450, L100.0100 #### [facility] [address] [place], [address] Mucus Ql (Urine sed) 0 SEEN Normal [facility] Comment on above: Order Comment: COLLE CTOR TO SPECIFY Performed By: #### L 500.4050, L501.2450, L100.0100 #### [facility] [address] [place], [address] WBC 0 SEEN Normal 0-5 [facility] Comment on above: Order Comment: DANIEL CTOR TO SPECIFY Performed By: #### L 500.4050, L501.2450, L100.0100 #### [facility] [address] [place], [address] MR/BMS.BPon 08-22-2024 MR/BMS.BP [address], [address] [place] [address] OFFICE VISIT Date of Service: 08/22/24 MR#: [id number] Acct: [id number] Name: MORENA PATTON Rep #: [id number] : 1960 Provider: KATIE dewey Age/Sex: 64/F Location[place] [facility] Status: Signed Intake Vital Signs 04/11/24 14:35 [...] making careless (more content not included)... Normal [facility] Ferritinon 07-20-2024 Ferritin [Mass/Vol] 8 ng/mL Normal 8-252 [facility] Comment on above: Order Comment: ADD O N Performed By: #### L 503.0106 #### [facility] [address] [place], [address] Folates, (Folic Acid)on 07-02 FOLATES 8.20 ng/mL Normal 3.1-55.4 [facility] Comment on above: Order Comment: N Performed By: #### L 500.4050, L501.2450, L100.0100 #### [facility] [address] [place], [address] Iron+Iron Binding Capacityon 07-20-2024 Iron [Mass/Vol] 19 ug/dL Low 50-170 [facility] Comment on above: Order Comment: ADD O N Performed By: #### L 503.0106 #### [facility] [address] [place], [address] IRON SATURATION 4.7 Low 15.0-55.0 [facility] Comment on above: Order Comment: ADD O N Performed By: #### L 503.0106 #### [facility] [address] [place], [address] TIBC 402 ug/dL Normal 250-450 [facility] Comment on above: Order Comment: ADD O N Performed By: #### L 503.0106 #### [facility] [address] [place], [address] Retic Panelon 07-20-2024 IM RET FRACTION 19.60 High 3.00-15.90 [facility] Comment on above: Performed By: #### L 503.0106 #### [facility] [address] [place], [address] RET-HE 23.5 pg Low 30-35 [facility] Comment on above: Performed By: #### L 503.0106 #### [facility] [address] [place], [address] Retic Count 1.38 Normal 0.5-1.5 [facility] Comment on above: Performed By: #### L 503.0106 #### [facility] [address] [place], [address] Vitamin B12on 07-20-2024 Cobalamin (Vitamin B12) [Mass/Vol] 671 pg/mL Normal 211-911 [facility] Comment on above: Performed By: #### L 503.0106 #### [facility] [address] [place], [address] CBC W/Diff, Automatedon 07-02 Absolute Lymph 1.98 X10 3/uL Normal 0.83-4.51 [facility] Comment on above: Performed By: #### L 500.4050, L501.2450, L100.0100 #### [facility] [address] [place], [address] Absolute Neut 1.1 X10 3/uL Low 2.0-7.7 [facility] Comment on above: Performed By: #### L 500.4050, L501.2450, L100.0100 #### [facility] [address] [place], [address] Basophils/100 WBC (Bld) 0.9 % Normal 0-1 [facility] Comment on above: Performed By: #### L 500.4050, L501.2450, L100.0100 #### [facility] [address] [place], [address] Eosinophils/100 WBC (Bld) 2.3 % Normal 0-5 [facility] Comment on above: Performed By: #### L 500.4050, L501.2450, L100.0100 #### [facility] [address] [place], [address] Erythrocyte distribution width (RBC) [Ratio] 15.9 % High 11.6-14.6 [facility] Comment on above: Performed By: #### L 500.4050, L501.2450, L100.0100 #### [facility] [address] [place], [address] Hematocrit (Bld) [Volume fraction] 30.8 % Low 37-47 [facility] Comment on above: Performed By: #### L 500.4050, L501.2450, L100.0100 #### [facility] [address] [place], [address] Hemoglobin (Bld) [Mass/Vol] 9.9 g/dL Low 12.0-15.0 [facility] Comment on above: Performed By: #### L 500.4050, L501.2450, L100.0100 #### [facility] [address] [place], [address] IG% 0.000 Normal 0.0-0.9 [facility] Comment on above: Result Comment: IG% - Immature Granulocytes (promyelocytes, myelocytes and metamyelocytes) > 1% indicates that a LEFT SHIFT is Present. Performed By: #### L 500.4050, L501.2450, L100.0100 #### [facility] [address] [place], [address] Lymphocytes/100 WBC (Bld) 57.4 % High 19-41 [facility] Comment on above: Performed By: #### L 500.4050, L501.2450, L100.0100 #### [facility] [address] [place], [address] MCH (RBC) [Entitic mass] 26.5 pg Low 27.0-32.0 [facility] Comment on above: Performed By: #### L 500.4050, L501.2450, L100.0100 #### [facility] [address] [place], [address] MCHC (RBC) [Mass/Vol] 32.1 g/dL Normal 32-36 [facility] Comment on above: Performed By: #### L 500.4050, L501.2450, L100.0100 #### [facility] [address] [place], [address] MCV (RBC) [Entitic vol] 82.4 fL Normal 81-99 [facility] Comment on above: Performed By: #### L 500.4050, L501.2450, L100.0100 #### [facility] [address] [place], [address] Monocytes/100 WBC (Bld) 7.2 % Normal 0-10 [facility] Comment on above: Performed By: #### L 500.4050, L501.2450, L100.0100 #### [facility] [address] [place], [address] Neutrophils/100 WBC (Bld) 32.2 % Low 47-70 [facility] Comment on above: Performed By: #### L 500.4050, L501.2450, L100.0100 #### [facility] [address] [place], [address] Nucleated RBC (Bld) [#/Vol] 0 10*3/uL Normal 0-5 [facility] Comment on above: Performed By: #### L 500.4050, L501.2450, L100.0100 #### [facility] [address] [place], [address] Platelet mean volume (Bld) [Entitic vol] 9.0 fL Normal 6.2-12.0 [facility] Comment on above: Performed By: #### L 500.4050, L501.2450, L100.0100 #### [facility] [address] [place], [address] Platelets (Bld) [#/Vol] 325 10*3/uL Normal 150-450 [facility] Comment on above: Performed By: #### L 500.4050, L501.2450, L100.0100 #### [facility] [address] [place], [address] RBC (Bld) [#/Vol] 3.74 10*6/uL Low 4.2-5.4 [facility] Comment on above: Performed By: #### L 500.4050, L501.2450, L100.0100 #### [facility] [address] [place], [address] RDW SD 47.5 fl High 35.1-43.9 [facility] Comment on above: Performed By: #### L 500.4050, L501.2450, L100.0100 #### [facility] [address] [place], [address] WBC (Bld) [#/Vol] 3.5 10*3/uL Low 4.4-11.0 [facility] Comment on above: Performed By: #### L 500.4050, L501.2450, L100.0100 #### [facility] [address] [place], [address] Comprehensive Metabolic [facility] 07-19-2024 Albumin [Mass/Vol] 3.2 g/dL Normal 3.2-5.0 [facility] Comment on above: Performed By: #### L 500.4050, L501.2450, L100.0100 #### [facility] [address] [place], [address] Albumin/Globulin [Mass ratio] 0.9 {ratio} Normal 0.9-2.4 [facility] Comment on above: Performed By: #### L 500.4050, L501.2450, L100.0100 #### [facility] [address] [place], [address] ALK P 95 U/L Normal 45-117 [facility] Comment on above: Performed By: #### L 500.4050, L501.2450, L100.0100 #### [facility] [address] [place], [address] ALT [Catalytic activity/Vol] 20 U/L Normal 13-56 [facility] Comment on above: Performed By: #### L 500.4050, L501.2450, L100.0100 #### [facility] [address] [place], [address] AST [Catalytic activity/Vol] 21 U/L Normal 15-37 [facility] Comment on above: Performed By: #### L 500.4050, L501.2450, L100.0100 #### [facility] [address] [place], [address] Bilirubin [Mass/Vol] 0.30 mg/dL Normal 0.20-1.00 [facility] Comment on above: Result Comment: For patients on eltrombopag therapy, use of Dimension [place] TBIL is not recommended. Performed By: #### L 500.4050, L501.2450, L100.0100 #### [facility] [address] [place], [address] BUN/CRE 10.8 RATIO Normal 10-20 [facility] Comment on above: Performed By: #### L 500.4050, L501.2450, L100.0100 #### [facility] [address] [place], [address] CA,Total 9.0 mg/dL Normal 8.5-10.1 [facility] Comment on above: Performed By: #### L 500.4050, L501.2450, L100.0100 #### [facility] [address] [place], [address] Chloride [Moles/Vol] 110 mmol/L High 98-107 [facility] Comment on above: Performed By: #### L 500.4050, L501.2450, L100.0100 #### [facility] [address] [place], [address] CO2 [Moles/Vol] 25.0 mmol/L Normal 21.0-32.0 [facility] Comment on above: Performed By: #### L 500.4050, L501.2450, L100.0100 #### [facility] [address] [place], [address] Creatinine [Mass/Vol] 0.93 mg/dL Normal 0.55-1.02 [facility] Comment on above: Result Comment: The validity of the calculated GFR GFRAA in patients over 70 years has not been determined. Clinical correlation is essential. Performed By: #### L 500.4050, L501.2450, L100.0100 #### [facility] [address] [place], [address] EST GFR - AA 78 mL/min Normal >60 [facility] Comment on above: Result Comment: Afri can Norwegian GFR Calc Performed By: #### L 500.4050, L501.2450, L100.0100 #### [facility] [address] [place], [address] GAP 3 Low 5-15 [facility] Comment on above: Performed By: #### L 500.4050, L501.2450, L100.0100 #### [facility] [address] [place], [address] GFR/1.73 sq M.predicted among non-blacks MDRD (S/P/Bld) [Vol rate/Area] 65 mL/min/{1.73_m2} Normal >60 [facility] Comment on above: Result Comment: Non- GFR Calc Performed By: #### L 500.4050, L501.2450, L100.0100 #### [facility] [address] [place], [address] Globulin (S) [Mass/Vol] 3.4 g/dL Normal 2.2-4.2 [facility] Comment on above: Performed By: #### L 500.4050, L501.2450, L100.0100 #### [facility] [address] [place], [address] Glucose [Mass/Vol] 100 mg/dL Normal 74-106 [facility] Comment on above: Result Comment: Fast ing Glucose result from 100 to 125 mg/dL suggests IMPAIRED HOMEOSTASIS per A.D.A. criteria. Performed By: #### L 500.4050, L501.2450, L100.0100 #### [facility] [address] [place], [address] Potassium [Moles/Vol] 4.0 mmol/L Normal 3.5-5.1 [facility] Comment on above: Performed By: #### L 500.4050, L501.2450, L100.0100 #### [facility] [address] [place], [address] Sodium [Moles/Vol] 138 mmol/L Normal 136-145 [facility] Comment on above: Performed By: #### L 500.4050, L501.2450, L100.0100 #### [facility] [address] [place], [address] T PROT 6.6 g/dL Normal 6.4-8.2 [facility] Comment on above: Performed By: #### L 500.4050, L501.2450, L100.0100 #### [facility] [address] [place], [address] Urea nitrogen [Mass/Vol] 10 mg/dL Normal 7-18 [facility] Comment on above: Performed By: #### L 500.4050, L501.2450, L100.0100 #### [facility] [address] [place], [address] Lipid Profileon 07-19-2024 Cholesterol [Mass/Vol] 210 mg/dL High 200 [facility] Comment on above: Result Comment: <200 mg/dL Desirable 200-240 mg/dL Borderline >240 mg/dL High Risk Performed By: #### L 500.4050, L501.2450, L100.0100 #### [facility] [address] [place], [address] Cholesterol in HDL [Mass/Vol] 114 mg/dL Normal [facility] Comment on above: Result Comment: The drugs N-Acetylcysteine and Metamizole may falsely depress this assay. Reference Range HDL <40 mg/dL Low HDL Cholesterol HDL >or= 60 mg/dL High HDL Cholesterol Performed By: #### L 500.4050, L501.2450, L100.0100 #### [facility] [address] [place], [address] Cholesterol in LDL [Mass/Vol] 71 mg/dL Normal 0-130 [facility] Comment on above: Performed By: #### L 500.4050, L501.2450, L100.0100 #### [facility] [address] [place], [address] Cholesterol in VLDL [Mass/Vol] 25 mg/dL Normal 5-40 [facility] Comment on above: Performed By: #### L 500.4050, L501.2450, L100.0100 #### [facility] [address] [place], [address] Triglyceride [Mass/Vol] 124 mg/dL Normal [facility] Comment on above: Result Comment: The drugs N-Acetylcysteine and Metamizole may falsely depress this assay. Serum Triglycerides Reference Interval Normal <150 mg/dL Borderline high 150 - 199 mg/dL High 200 - 499 mg/dL Very High > or = 500 mg/dL Performed By: #### L 500.4050, L501.2450, L100.0100 #### [facility] [address] [place], [address] Thyroid Stim Hormone (TSH)on 07-19-2024 TSH 1.170 uIU/mL Normal 0.358-3.74 0 [facility] Comment on above: Performed By: #### L 500.4050, L501.2450, L100.0100 #### [facility] [place], [address] MRA HEAD W/O CONTRASTon -0 MRA HEAD W/O CONTRAST ORIGINAL EXAMINATION: MRA OF THE HEAD WITHOUT CONTRAST 06/08/2024 9:50 am TECHNIQUE: MRA of the head was performed utilizing fsbc-wc-svwzag imaging with MIP images. No intravenous contrast [...] Date: 06/08/2024 10:06:50 AM Ordering Provider: BUNNY YO [facility] MRA NECK W/O CONTRASTon MRA NECK [...] Date: 06/08/2024 10:07:33 AM Ordering Provider: BUNNY YO [facility] MRI BRAIN W/ + W/O CONTRASTo [...] 9:05:45 AM Ordering Provider: BUNNY YO Normal [facility] Telephone Encounteron 2023 Journal Entry Audit Clerk Authentication Interface Message Text Called patient, 3 identifiers obtained. Patient was unable to talk at this time. Instructed patient to call [employer] at [phone]. Asked patient to reference #[phone] when calling back to our office. Ok to relay message below from Anamaria Guerrero RN. Normal [facility] [employer] Telephone Encounteron 2023 Journal Entry Audit Clerk Authentication Interface Message Text Unable to leave a message, voicemail is full. If patient calls back please ask the need for syringes, please encourage patient to keep 02/24/24 appt. Thank you. Normal [facility] [employer] Telephone Encounteron 2023 Journal Entry Audit Clerk Authentication Interface Message Text Patient was identified [...] (Arrive by 12:50 PM) Randall Hodgson MD [facility] Normal [facility] [employer] Telephone Encounteron 2023 Journal Entry Audit Clerk Authentication Interface Message Text OARRS reviewed. This is the last prescription that I will refill on behalf of this patietn Normal [facility] [employer] [facility] CBC W Auto Differential pane l (Bld)on 12-01-2023 Basophils (Bld) [#/Vol] 10*3/uL Normal <0.11 [facility] Comment on above: Order Comment: Speci men Type: BLOOD SPECIMENOrdering Facility: [facility] Address: [address] [place] [address] Performed By: #### 5 7021-8 ####[facility] [id number] [place] [address] [place] Basophils/100 WBC (Bld) 0.4 % Normal [facility] Comment on above: Order Comment: Speci men Type: BLOOD SPECIMENOrdering Facility: [facility] Address: [address] [place] [address] Performed By: #### 5 7021-8 ####[facility] [id number] [place] [address] [place] Differential cell count method Nom (Bld) Auto Normal [facility] Comment on above: Order Comment: Speci men Type: BLOOD SPECIMENOrdering Facility: [facility] Address: [address] [place] [address] Performed By: #### 5 7021-8 ####[facility] [id number] [place] [address] [place] Eosinophils (Bld) [#/Vol] 0.07 10*3/uL Normal <0.46 [facility] Comment on above: Order Comment: Speci men Type: BLOOD SPECIMENOrdering Facility: [facility] Address: [address] [place] [address] Performed By: #### 5 7021-8 ####[facility] [id number] [place] [address] [place] Eosinophils/100 WBC (Bld) 1.3 % Normal [facility] Comment on above: Order Comment: Speci men Type: BLOOD SPECIMENOrdering Facility: [facility] Address: [address] [place] [address] Performed By: #### 5 7021-8 ####[facility] [id number] [place] [address] [place] Erythrocyte distribution width (RBC) [Ratio] 18.6 % High 11.5-15.0 [facility] Comment on above: Order Comment: Speci men Type: BLOOD SPECIMENOrdering Facility: [facility] Address: [address] [place] [address] Performed By: #### 5 7021-8 ####[facility] [id number] [place] [address] [place] Hematocrit (Bld) [Volume fraction] 35.9 % Low 36.0-46.0 [facility] Comment on above: Order Comment: Speci men Type: BLOOD SPECIMENOrdering Facility: [facility] Address: [address] [place] [address] Performed By: #### 5 7021-8 ####[facility] [id number] [place] [address] [place] Hemoglobin (Bld) [Mass/Vol] 11.4 g/dL Low 11.5-15.5 [facility] Comment on above: Order Comment: Speci men Type: BLOOD SPECIMENOrdering Facility: [facility] Address: [address] [place] [address] Performed By: #### 5 7021-8 ####[facility] [id number] [place] [address] [place] Immature granulocytes (Bld) [#/Vol] 10*3/uL Normal <0.10 [facility] Comment on above: Order Comment: Speci men Type: BLOOD SPECIMENOrdering Facility: [facility] Address: [address] [place] [address] Performed By: #### 5 7021-8 ####[facility] [id number] [place] [address] [place] Immature granulocytes/100 WBC (Bld) 0.2 % Normal [facility] Comment on above: Order Comment: Speci men Type: BLOOD SPECIMENOrdering Facility: [facility] Address: [address] [place] [address] Performed By: #### 5 7021-8 ####[facility] [id number] [place] [address] [place] Lymphocytes (Bld) [#/Vol] 2.50 10*3/uL Normal 1.00-4.00 [facility] Comment on above: Order Comment: Speci men Type: BLOOD SPECIMENOrdering Facility: [facility] Address: [address] [place] [address] Performed By: #### 5 7021-8 ####[facility] [id number] [place] [address] [place] Lymphocytes/100 WBC (Bld) 47.8 % Normal [facility] Comment on above: Order Comment: Speci men Type: BLOOD SPECIMENOrdering Facility: [facility] Address: [address] [place] [address] Performed By: #### 5 7021-8 ####[facility] [id number] [place] [address] [place] MCH (RBC) [Entitic mass] 23.4 pg Low 26.0-34.0 [facility] Comment on above: Order Comment: Speci men Type: BLOOD SPECIMENOrdering Facility: [facility] Address: [address] [place] [address] Performed By: #### 5 7021-8 ####[facility] [id number] [place] [address] [place] MCHC (RBC) [Mass/Vol] 31.8 g/dL Normal 30.5-36.0 [facility] Comment on above: Order Comment: Speci men Type: BLOOD SPECIMENOrdering Facility: [facility] Address: [address] [place] [address] Performed By: #### 5 7021-8 ####[facility] [id number] [place] [address] [place] MCV (RBC) [Entitic vol] 73.6 fL Low 80.0-100.0 [facility] Comment on above: Order Comment: Speci men Type: BLOOD SPECIMENOrdering Facility: [facility] Address: [address] [place] [address] Performed By: #### 5 7021-8 ####[facility] [id number] [place] [address] [place] Monocytes (Bld) [#/Vol] 0.39 10*3/uL Normal <0.87 [facility] Comment on above: Order Comment: Speci men Type: BLOOD SPECIMENOrdering Facility: [facility] Address: [address] [place] [address] Performed By: #### 5 7021-8 ####[facility] [id number] [place] [address] [place] Monocytes/100 WBC (Bld) 7.5 % Normal [facility] Comment on above: Order Comment: Speci men Type: BLOOD SPECIMENOrdering Facility: [facility] Address: [address] [place] [address] Performed By: #### 5 7021-8 ####[facility] [id number] [place] [address] [place] Neutrophils (Bld) [#/Vol] 2.24 10*3/uL Normal 1.45-7.50 [facility] Comment on above: Order Comment: Speci men Type: BLOOD SPECIMENOrdering Facility: [facility] Address: [address] [place] [address] Performed By: #### 5 7021-8 ####[facility] [id number] [place] [address] [place] Neutrophils/100 WBC (Bld) 42.8 % Normal [facility] Comment on above: Order Comment: Speci men Type: BLOOD SPECIMENOrdering Facility: [facility] Address: [address] [place] [address] Performed By: #### 5 7021-8 ####[facility] [id number] [place] [address] [place] Nucleated RBC (Bld) [#/Vol] 0.02 10*3/uL High <0.01 [facility] Comment on above: Order Comment: Speci men Type: BLOOD SPECIMENOrdering Facility: [facility] Address: [address] [place] [address] Performed By: #### 5 7021-8 ####[facility] [id number] [place] [address] [place] Nucleated RBC/100 WBC (Bld) [Ratio] 0.4 /100 WBC Normal [facility] Comment on above: Order Comment: Speci men Type: BLOOD SPECIMENOrdering Facility: [facility] Address: [address] [place] [address] Performed By: #### 5 7021-8 ####[facility] [id number] [address] [address] [place] Platelet mean volume (Bld) [Entitic vol] 9.0 fL Normal 9.0-12.7 [facility] Comment on above: Order Comment: Speci men Type: BLOOD SPECIMENOrdering Facility: [facility] Address: [address] [place] [address] Performed By: #### 5 7021-8 ####[facility] [id number] [place] [address] [place] Platelets (Bld) [#/Vol] 383 10*3/uL Normal 150-400 [facility] Comment on above: Order Comment: Speci men Type: BLOOD SPECIMENOrdering Facility: [facility] Address: [address] [place] [address] Performed By: #### 5 7021-8 ####[facility] [id number] [place] [address] [place] RBC (Bld) [#/Vol] 4.88 10*6/uL Normal 3.90-5.20 [facility] Comment on above: Order Comment: Speci men Type: BLOOD SPECIMENOrdering Facility: [facility] Address: [address] [place] [address] Performed By: #### 5 7021-8 ####[facility] [id number] [place] [address] [place] WBC (Bld) [#/Vol] 5.23 10*3/uL Normal 3.70-11.00 [facility] Comment on above: Order Comment: Speci men Type: BLOOD SPECIMENOrdering Facility: [facility] Address: [address] [place] [address] Performed By: #### 5 7021-8 ####[facility] [id number] [place] [id number] [place] Comprehensive metabolic 2000 panelon 12-01-2023 Albumin [Mass/Vol] 4.0 g/dL Normal 3.9-4.9 [facility] Comment on above: Order Comment: Speci men Type: BLOOD SPECIMENOrdering Facility: [facility] Address: [address] [place], [place] [address] Performed By: #### 2 4323-8, 56568-0, 47390-4, 3016-3 ####[facility] [id number] [place] [address] [place] ALP [Catalytic activity/Vol] 105 U/L Normal 34-123 [facility] Comment on above: Order Comment: Speci men Type: BLOOD SPECIMENOrdering Facility: [facility] Address: [address] [place] [address] Performed By: #### 2 4323-8, 36261-3, 56194-7, 3016-3 ####[facility] [id number] [place] [address] [place] ALT [Catalytic activity/Vol] 10 U/L Normal 7-38 [facility] Comment on above: Order Comment: Speci men Type: BLOOD SPECIMENOrdering Facility: [facility] Address: [address] [place] [address] Performed By: #### 2 4323-8, 30594-5, 59688-7, 3016-3 ####[facility] [id number] [place] [id number] [place] Anion gap [Moles/Vol] 13 mmol/L Normal 9-18 [facility] Comment on above: Order Comment: Speci men Type: BLOOD SPECIMENOrdering Facility: [facility] Address: [address] [place] [address] Performed By: #### 2 4323-8, 09707-1, 16210-1, 3016-3 ####[facility] [id number] [place] [id number] [place] AST [Catalytic activity/Vol] 20 U/L Normal 13-35 [facility] Comment on above: Order Comment: Speci men Type: BLOOD SPECIMENOrdering Facility: [facility] Address: [address] [place] [address] Performed By: #### 2 4323-8, 73444-6, 06701-2, 3016-3 ####[facility] [id number] [place] [address] [place] Bilirubin [Mass/Vol] 0.2 mg/dL Normal 0.2-1.3 [facility] Comment on above: Order Comment: Speci men Type: BLOOD SPECIMENOrdering Facility: [facility] Address: [address] [place] [address] Performed By: #### 2 4323-8, 00643-9, 51699-8, 3016-3 ####[facility] [id number] [place] [address] [place] Calcium [Mass/Vol] 9.6 mg/dL Normal 8.5-10.2 [facility] Comment on above: Order Comment: Speci men Type: BLOOD SPECIMENOrdering Facility: [facility] Address: [address] [place] [address] Performed By: #### 2 4323-8, 62992-7, 29910-0, 3016-3 ####[facility] [id number] [place] [address] [place] Chloride [Moles/Vol] 102 mmol/L Normal 97-105 [facility] Comment on above: Order Comment: Speci men Type: BLOOD SPECIMENOrdering Facility: [facility] Address: [address] [place] [address] Performed By: #### 2 4323-8, 94720-8, 13033-9, 3016-3 ####[facility] [id number] [place] [address] [place] CO2 [Moles/Vol] 21 mmol/L Low 22-30 [facility] Comment on above: Order Comment: Speci men Type: BLOOD SPECIMENOrdering Facility: [facility] Address: [address] [place] [address] Performed By: #### 2 4323-8, 30631-3, 51292-8, 3016-3 ####[facility] [id number] [place] [address] [place] Creatinine [Mass/Vol] 0.94 mg/dL Normal 0.58-0.96 [facility] Comment on above: Order Comment: Speci men Type: BLOOD SPECIMENOrdering Facility: [facility] Address: [address] [place] [address] Performed By: #### 2 4323-8, 76251-1, 87335-7, 3016-3 ####[facility] [id number] [place] [address] [place] Creatinine and Glomerular filtration rate.predicted panel (S/P/Bld) 68 mL/min/1.73m??? Normal >=60 [facility] Comment on above: Order Comment: Speci men Type: BLOOD SPECIMENOrdering Facility: [facility] Address: [address] [place] [address] Result Comment: Kelley mated Glomerular Filtration Rate [...] actual GFR. Performed By: #### 2 4323-8, 26653-3, 85764-0, 3016-3 ####[facility] [id number] [place] [id number] [place] Glucose [Mass/Vol] 111 mg/dL High 74-99 [facility] Comment on above: Order Comment: Speci men Type: BLOOD SPECIMENOrdering Facility: [facility] Address: [address] [place] [address] Result Comment: The [place] Diabetes Association (ADA) provides guidance for cutoff [...] Standards of Medical Care in Diabetes 2016, [place] [employer]. Diabetes Care. 2016.39(Suppl 1). Performed By: #### 2 4323-8, 96914-9, 44124-8, 3016-3 ####[facility] [id number] [place] [address] [place] Potassium [Moles/Vol] 3.6 mmol/L Low 3.7-5.1 [facility] Comment on above: Order Comment: Winniei krish Type: BLOOD SPECIMENOrdering Facility: [facility] Address: [address] [place] [address] Performed By: #### 2 4323-8, 84149-5, 30969-9, 3016-3 ####[facility] [id number] [place] [id number] [place] Protein [Mass/Vol] 7.0 g/dL Normal 6.3-8.0 [facility] Comment on above: Order Comment: Winniei men Type: BLOOD SPECIMENOrdering Facility: [facility] Address: [address] [place] [address] Performed By: #### 2 4323-8, 90906-0, 11954-2, 3016-3 ####[facility] [id number] [place] [id number] [place] Sodium [Moles/Vol] 136 mmol/L Normal 136-144 [facility] Comment on above: Order Comment: Speci men Type: BLOOD SPECIMENOrdering Facility: [facility] Address: [address] [place], [place] [address] Performed By: #### 2 4323-8, 38035-1, 46246-8, 3016-3 ####[facility] [id number] [place] [id number] [place] Urea nitrogen [Mass/Vol] 9 mg/dL Normal 7-21 [facility] Comment on above: Order Comment: Speci men Type: BLOOD SPECIMENOrdering Facility: [facility] Address: [address] [place], [place] [address] Performed By: #### 2 4323-8, 31236-6, 98869-9, 3016-3 ####[facility] [id number] [place] [id number] [place] ED NOTEon 12-01-2023 ED NOTE HNO ID: [id number] Author: GRAY HECK RN Service: Emergency Medicine Author Type: Registered Nurse Type: ED Notes Filed: 12/01/2023 15:16 Note Text: Pt with 2 weeks of feeling faint, light headedness, cp, RAMIREZ, gradually becoming worse. Normal [facility] ED Triage Noteon 12-01-2023 ED Triage Note HNO ID: [id number] Author: RONNELL SERVIN MD Service: Emergency Medicine [...] needs to drive home before dark in [place]. Review results thus far, no severe abnormalities. Encouraged RTED at any time to continue her workup here, or closer to home at [facility] facilities such as [place] or [facility]. Clinical Impressions as of 12/01/23 1649 Chest pain, unspecified type SOB (shortness of breath) Tobacco use Primary hypertension Iron deficiency anemia, unspecified iron deficiency anemia type Thank you, Ronnell Servin MD [facility] [place] SIGNATURE: Ronnell Servin MD UPDATE for patient choosing to leave prior to being roomed and performance of a complete evaluation. Normal [facility] HIGH SENSITIVITY TROPONIN T (INITIAL)on 12-01-2023 Troponin T.cardiac High sensitivity method [Mass/Vol] 10 ng/L Normal <12 [facility] Comment on above: Order Comment: Edelmira rutherford Type: BLOOD SPECIMENOrdering Facility: [facility] Address: [address] [place] [address] Result Comment: When assessing risk for acute [...] 30 day MACE. Performed By: #### L [id number] ####[facility] [id number] [place] [address] [place] Magnesium SerPl-mCncon 11-30 Magnesium [Mass/Vol] 1.9 mg/dL Normal 1.7-2.3 [facility] Comment on above: Order Comment: Speci men Type: BLOOD SPECIMENOrdering Facility: [facility] Address: [address] [place] [address] Performed By: #### 2 4323-8, 40827-5, 31487-6, 3016-3 ####[facility] [id number] [place] [id number] [place] NT-proBNP SerPl-mCncon 11-30 Natriuretic peptide.B prohormone N-Terminal [Mass/Vol] 90 pg/mL Normal <125 [facility] Comment on above: Order Comment: Speci men Type: BLOOD SPECIMENOrdering Facility: [facility] Address: [address] [place] [address] Performed By: #### 2 4323-8, 48616-2, 29396-5, 3016-3 ####[facility] [id number] [place] [address] [place] TSH SerPl-aCncon 12-01-2023 TSH Qn 1.080 m[IU]/L Normal 0.270-4.20 0 [facility] Comment on above: Order Comment: Speci men Type: BLOOD SPECIMENOrdering Facility: [facility] Address: [address] [place] [address] Performed By: #### 2 4323-8, 90447-2, 80229-0, 3016-3 ####[facility] [id number] [place] [address] [place] XR CHEST 2V [...] Degenerative changes. IMPRESSION: No acute radiographic abnormality. Cdl Driver: NAIDA Transcribe Date/Time: Dec 01 2023 3:46P Dictated by : JOVANI ESCUDERO MD This examination was interpreted and the report reviewed and electronically signed by: ORESTES LI MD on Dec 01 2023 3:54PM EST [id number] Normal [facility] Absolute lymphocyte countOrd ered By: Charly Almonte on 11-16-2023 Lymphocytes Auto (Unsp spec) [#/Vol] 3.06 10*3/uL 0.83-4.51 [facility] Automated lymphocyte count a s percentage of total leukocytesOrdered By: Charly Almonte on 11-16-2023 Lymphocytes/100 WBC Auto (Unsp spec) 57.5 % 19-41 [facility] Basophil percentageOrdered B y: Charly Almonte on 11-16-2023 Basophils/100 WBC (Bld) 0.4 % 0-1 [facility] Chloride [Moles/Vol] 110 mmol/L 98-107 [facility] Eosinophils/100 WBC (Bld) 1.7 % 0-5 [facility] Glucose [Mass/Vol] 113 mg/dL 74-106 [facility] Comment on above: Fasting Glucose resu lt from 100 to 125 mg/dL suggests IMPAIRED HOMEOSTASIS per A.D.A. criteria. Hemoglobin (Bld) [Mass/Vol] 11.5 g/dL 12.0-15.0 [facility] Monocytes/100 WBC (Bld) 6.8 % 0-10 [facility] Neutrophils (Bld) [#/Vol] 1.8 10*3/uL 2.0-7.7 [facility] Neutrophils/100 WBC (Bld) 33.4 % 47-70 [facility] Potassium [Moles/Vol] 3.7 mmol/L 3.5-5.1 [facility] Sodium [Moles/Vol] 140 mmol/L 136-145 [facility] WBC (Bld) [#/Vol] 5.3 10*3/uL 4.4-11.0 [facility] Determination of erythrocyte mean corpuscular volume (MCV)Ordered By: Charly Almonte on 11-16-2023 MCV (RBC) [Entitic vol] 74.5 fL 81-99 [facility] Erythrocyte distribution wid th ratioOrdered By: Charly Almonte on 11-16-2023 Erythrocyte distribution width (RBC) [Ratio] 18.6 % 11.6-14.6 [facility] Erythrocyte distribution wid th standard deviationOrdered By: Charly Almonte on 11-16-2023 Erythrocyte distribution width (RBC) [Entitic vol] 49.6 fL 35.1-43.9 [facility] Hematocrit Auto (Bld) [Volum e fraction]Ordered By: Charly Almonte on 11-16-2023 Hematocrit (Bld) [Volume fraction] 37.1 % 37-47 [facility] Immature granulocytes/100 WB C Auto (Bld)Ordered By: Charly Almonte on 11-16-2023 Immature granulocytes/100 WBC (Bld) 0.200 % 0.0-0.9 [facility] Comment on above: IG% - Immature Granu locytes (promyelocytes, myelocytes and metamyelocytes) > 1% indicates that a LEFT SHIFT is Present. Laboratory - Chemistry and C hemistry - challengeOrdered By: Charly Almonte on 11-16-2023 CO2 [Moles/Vol] 25.0 mmol/L 21.0-32.0 [facility] Urea nitrogen/Creatinine [Mass ratio] 14.4 mg/mg 10-20 [facility] - Hematology and Cell countsOrdered By: Charly Almonte on 11-16-2023 MCH (RBC) [Entitic mass] 23.1 pg 27.0-32.0 [facility] MCHC (RBC) [Mass/Vol] 31.0 g/dL 32-36 [facility] Nucleated RBC/100 WBC (Bld) [Ratio] 0 % 0-5 [facility] Platelet mean volume (Bld) [Entitic vol] 9.2 fL 6.2-12.0 [facility] Platelets (Bld) [#/Vol] 396 10*3/uL 150-450 [facility] - Microbiology an d Antimicrobial susceptibilityOrdered By: Charly Almonte on 11-16-2023 SARS-CoV-2 (COVID-19) RNA BISI+probe Ql (Unsp spec) [facility] No Panel InformationOrdered By: Charly Almonte on 11-16-2023 Troponin I High Sensitivity 28 pg/mL 3.0-54.0 [facility] Comment on above: Please Note: New Sary t Units and Gender Specific Reference Ranges. For more information see Policy Stat Procedure [place] High Sensitivity Troponin (TNIH) and attachments. D-Dimer Quantitative (PE/DVT) 0.37 FEU/ug/m 0.27-0.49 [facility] Comment on above: NORMAL D-Dimer level (<0.50) indicates no DVT or PE. Estimated Creatinine Clearance Calc 51.83 ml/min [facility] Estimated GFR (MDRD) Amer 69 mL/min >60 [facility] Comment on above: GFR Calc Estimated GFR (MDRD) Non-Af Amer 57 mL/min >60 [facility] Comment on above: Non- GFR Calc RBC Auto (Bld) [#/Vol]Ordere d By: Charly Almonte on 11-16-2023 RBC (Bld) [#/Vol] 4.98 10*6/uL 4.2-5.4 [facility] Serum or plasma calcium angela urement (mass/volume)Ordered By: Charly Almonte on 11-16-2023 Calcium [Mass/Vol] 9.3 mg/dL 8.5-10.1 [facility] Serum or plasma creatinine m easurement (mass/volume)Ordered By: Charly Almonte on 11-16-2023 Creatinine [Mass/Vol] 1.04 mg/dL 0.55-1.02 [facility] Comment on above: The validity of the calculated GFR & GFRAA in patients over 70 years has not been determined. Clinical correlation is essential. Serum or plasma urea nitroge n measurement (mass/volume)Ordered By: Charly Almonte on 11-16-2023 Urea nitrogen [Mass/Vol] 15 mg/dL 7-18 [facility] Thin prep Papanicolaou smear with manual screeningOrdered By: Charly Almonte on 11-16-2023 Thin prep Papanicolaou smear with manual screening 5 5-15 [facility] Telephone Encounteron 2023 Journal Entry Audit Clerk Authentication Interface Message Text OARRS reviewed Normal [facility] Telephone Encounteron 2023 Journal Entry Audit Clerk Authentication Interface Message Text Patient must schedule, and keep, follow up appointments to continue to receive this medication. Normal [facility] Telephone Encounteron 2022 Journal Entry Audit Clerk Authentication Interface Message Text OARRS reviewed Normal [facility] En[facility] 2022 Journal Entry Audit Clerk Authentication Interface Message Text Care Gaps Scheduling Health Maintenence Due: Medicare AWV/PCP Visit: deferred Eye Exam: not due Foot Exam: not due Annual Bloodwork: active orders YOKO: not due Normal [facility] Absolute lymphocyte countOrd ered By: Blaise Tom on 03-23-2023 Lymphocytes Auto (Unsp spec) [#/Vol] 2.35 10*3/uL 0.83-4.51 [facility] Amorphous sediment detection in urine sediment by light microscopyOrdered By: Blaise Tom on 03-23-2023 Amorphous sediment LM Ql (Urine sed) 1+ URATE [facility] Basophil percentageOrdered B y: Blaise Tom on 03-23-2023 Basophil percentage 0-5 SEEN /hpf 0-5 [facility] Basophils/100 WBC (Bld) 0.4 % 0-1 [facility] Bilirubin [Mass/Vol] 0.20 mg/dL 0.20-1.00 [facility] Comment on above: For patients on eltr ombopag therapy, use of Dimension [place] TBIL is not recommended. Chloride [Moles/Vol] 109 mmol/L 98-107 [facility] Eosinophils/100 WBC (Bld) 2.0 % 0-5 [facility] Glucose [Mass/Vol] 85 mg/dL 74-106 [facility] Neutrophils (Bld) [#/Vol] 1.8 10*3/uL 2.0-7.7 [facility] Neutrophils/100 WBC (Bld) 37.9 % 47-70 [facility] Potassium [Moles/Vol] 4.0 mmol/L 3.5-5.1 [facility] Protein [Mass/Vol] 6.7 g/dL 6.4-8.2 [facility] Sodium [Moles/Vol] 140 mmol/L 136-145 [facility] WBC (Bld) [#/Vol] 4.6 10*3/uL 4.4-11.0 [facility] Bilirubin Test strip Ql (U)O rdered By: Blaise Tom on 03-23-2023 Bilirubin Ql (U) Negative Negative [facility] Blood erythrocytes count (nu mber/volume)Ordered By: Blaise Tom on 03-23-2023 RBC (Bld) [#/Vol] 4.77 10*6/uL 4.2-5.4 [facility] Blood hemoglobin measurement (mass/volume)Ordered By: Blaise Tom on 03-23-2023 Hemoglobin (Bld) [Mass/Vol] 11.5 g/dL 12.0-15.0 [facility] Blood lymphocytes/100 leukoc ytesOrdered By: Blaise Tom on 03-23-2023 Lymphocytes/100 WBC (Bld) 51.0 % 19-41 [facility] Blood manual differential co mment interpretation (narrative result)Ordered By: Blaise Tom on 03-23-2023 Manual differential comment Ryan (Bld) [Interp] See comment [facility] Comment on above: 1+ ANISOCYTOSIS Blood monocytes/100 leukocyt esOrdered By: Blaise Tom on 03-23-2023 Monocytes/100 WBC (Bld) 8.7 % 0-10 [facility] Blood platelet mean volumeOr dered By: Blaise Tom on 03-23-2023 Platelet mean volume (Bld) [Entitic vol] 9.1 fL 6.2-12.0 [facility] Determination of erythrocyte mean corpuscular volume (MCV)Ordered By: Blaise Tom on 03-23-2023 MCV (RBC) [Entitic vol] 77.8 fL 81-99 [facility] Hematocrit Auto (Bld) [Volum e fraction]Ordered By: Blaise Tom on 03-23-2023 Hematocrit (Bld) [Volume fraction] 37.1 % 37-47 [facility] Ketones Test strip Ql (U)Ord ered By: Blaise Tom on 03-23-2023 Ketones Ql (U) 15 mg/dl Negative [facility] Laboratory - Chemistry and C hemistry - challengeOrdered By: Blaise Tom on 03-23-2023 ALP [Catalytic activity/Vol] 92 U/L 45-117 [facility] ALT [Catalytic activity/Vol] 22 U/L 13-56 [facility] CO2 [Moles/Vol] 24.0 mmol/L 21.0-32.0 [facility] Globulin (S) [Mass/Vol] 3.5 g/dL 2.2-4.2 [facility] Lipase [Catalytic activity/Vol] 38 U/L 13-75 [facility] Comment on above: Please note:LIPASE r evised reference range effective 22. New Lipase methodology. Expected to produce lower values than the previous assay method. NEW Reference Range: 13 - 75 U/L Urea nitrogen/Creatinine [Mass ratio] 17.0 mg/mg 10-20 [facility] Laboratory - Hematology and Cell countsOrdered By: Blaise Tom on 03-23-2023 Erythrocyte distribution width (RBC) [Entitic vol] 56.7 fL 35.1-43.9 [facility] Erythrocyte distribution width (RBC) [Ratio] 20.6 % 11.6-14.6 [facility] Immature granulocytes/100 WBC (Bld) 0.000 % 0.0-0.9 [facility] Comment on above: IG% - Immature Granu locytes (promyelocytes, myelocytes and metamyelocytes) > 1% indicates that a LEFT SHIFT is Present. MCH (RBC) [Entitic mass] 24.1 pg 27.0-32.0 [facility] Nucleated RBC/100 WBC (Bld) [Ratio] 0 % 0-5 [facility] MCHC Auto (RBC) [Mass/Vol]Or dered By: Blaise Tom on 03-23-2023 MCHC (RBC) [Mass/Vol] 31.0 g/dL 32-36 [facility] Mucus LM Ql (Urine sed)Order ed By: Blaise Tom on 03-23-2023 Mucus Ql (Urine sed) 0 SEEN /hpf [facility] Nitrite Test strip Ql (U)Ord ered By: Blaise Tom on 03-23-2023 Nitrite Ql (U) Negative Negative [facility] No Panel InformationOrdered By: Blaise Tom on 03-23-2023 Estimated Creatinine Clearance Calc 50.85 ml/min [facility] Estimated GFR (MDRD) Amer 67 mL/min >60 [facility] Comment on above: GFR Calc Estimated GFR (MDRD) Non-Af Amer 56 mL/min >60 [facility] Comment on above: Non- GFR Calc Platelets bldOrdered By: Darwin Tom on 03-23-2023 Platelets (Bld) [#/Vol] 225 10*3/uL 150-450 [facility] Protein Test strip Ql (U)Ord ered By: Blaise Tom on 03-23-2023 Protein Ql (U) 30 mg/dl Negative [facility] Serum or plasma albumin angela urement (mass/volume)Ordered By: Blaise Tom on 03-23-2023 Albumin [Mass/Vol] 3.2 g/dL 3.2-5.0 [facility] Serum or plasma albumin/glob ulin mass ratioOrdered By: Blaise Tom on 03-23-2023 Albumin/Globulin [Mass ratio] 0.9 {ratio} 0.9-2.4 [facility] Serum or plasma calcium angela urement (mass/volume)Ordered By: Blaise Tom on 03-23-2023 Calcium [Mass/Vol] 9.1 mg/dL 8.5-10.1 [facility] Serum or plasma creatinine m easurement (mass/volume)Ordered By: Blaise Tom on 03-23-2023 Creatinine [Mass/Vol] 1.06 mg/dL 0.55-1.02 [facility] Comment on above: The validity of the calculated GFR & GFRAA in patients over 70 years has not been determined. Clinical correlation is essential. Serum or plasma urea nitroge n measurement (mass/volume)Ordered By: Blaise Tom on 03-23-2023 Urea nitrogen [Mass/Vol] 18 mg/dL 7-18 [facility] Squamous epithelial cells de tection in urine sediment by light microscopyOrdered By: Blaise Tom on 03-23-2023 Epithelial cells.squamous LM Ql (Urine sed) 0-5 SEEN /hpf 5-10 [facility] Thin prep Papanicolaou smear with manual screeningOrdered By: Blaise Tom on 03-23-2023 Thin prep Papanicolaou smear with manual screening 17 U/L 15-37 [facility] Thin prep Papanicolaou smear with manual screening 7 5-15 [facility] Urine blood detectionOrdered By: Blaise Tom on 03-23-2023 RBC Ql (U) 10 /ul Negative [facility] RBC Ql (U) 0-5 SEEN /hpf 0-5 [facility] Urine clarityOrdered By: Darwin Tom on 03-23-2023 Clarity (U) Clear Clear [facility] Urine color determinationOrd ered By: Blaise Tom on 03-23-2023 Color (U) Yellow Yellow [facility] Urine glucose detectionOrder ed By: Blaise Tom on 03-23-2023 Glucose Ql (U) Normal mg/dl Normal [facility] Urine leukocyte esterase det ection by dipstickOrdered By: Blaise Tom on 03-23-2023 Leukocyte esterase Test strip Ql (U) 25 /ul Negative [facility] Urine pHOrdered By: Blaise ordaz on 03-23-2023 pH (U) 6.0 [pH] 5.0 - 8.0 [facility] Urine sediment bacteria coun t by microscopy (number/high power field)Ordered By: Blaise Tom on 03-23-2023 Bacteria LM.HPF (Urine sed) [#/Area] 0 /[HPF] None Seen [facility] Urine specific gravity measu rementOrdered By: Blaise Tom on 03-23-2023 Specific gravity (U) [Rel density] 1.020 1.002-1.03 0 [facility] Urobilinogen Auto test strip Ql (U)Ordered By: Blaise Tom on 03-23-2023 Urobilinogen Ql (U) 1 mg/dl Normal [facility] Telephone Encounteron 2022 Journal Entry Audit Clerk Authentication Interface Message Text Order pended for provider review AND signature. Requested Prescriptions Pending Prescriptions Disp Refills Syringe 23G X 1 3 ML MISC 12 Each 0 Si Syringe once a month. vitamin B-12 (CYANOCOBALAMIN) 1000 MCG/ML injection 12 Each 0 Sig: Inject 1 mL into the muscle once a month. Normal [facility] Diagnose[employer]me Authentication Interface Message Text Pharmacy requesting medication substitution. Medication not available to order: Cyanocobalamin 1000 MCG/ML KIT Recommended alternative medications: Pharmacy is requesting two separate prescriptions, one for the vitamin B injection solution and the other for the syringe to inject it. Prescribing provider's name: Hilton Johnson MD Pharmacy Name: [facility] Normal [facility] Telephone Encounteron 2022 Journal Entry Audit Clerk Authentication Interface Message Text Patient was identified [...] understanding with no further questions. Normal [facility] Journal Entry Audit Clerk Authentication Interface Message Text Prescribing a statin in response to the elevated cholesterol and total nonHDL cholesterol identified on her lipid panel realizing that the HDL is quite elevated and might indicate some degree of protection against CVD. Normal [facility] Addendum Noteon 03-09-2023 Journal Entry Audit Clerk Authentication Interface Message Text Addended by: NICHELLE HILLS on: 03/09/2023 02:14 PM Modules accepted: Orders Normal [facility] BASIC METABOLIC PANELon 08- Anion gap [Moles/Vol] 12 mmol/L Normal 10-20 [facility] Comment on above: Performed By: #### V ITB12, HDL, CH8, LUCIAN ####[facility] [id number] [place], [place], Calcium [Mass/Vol] 9.5 mg/dL Normal 8.4-10.4 [facility] Comment on above: Performed By: #### V ITB12, HDL, CH8, LUCIAN ####[facility] [id number] [place], Chloride [Moles/Vol] 108 mmol/L Normal 97-111 [facility] Comment on above: Performed By: #### V ITB12, HDL, CH8, LUCIAN ####[facility] [id number] [place], CO2 [Moles/Vol] 25 mmol/L Normal 21-30 [facility] Comment on above: Performed By: #### V ITB12, HDL, CH8, LUCIAN ####[facility] PATH[facility] [id number] [place], Creatinine [Mass/Vol] 1.05 mg/dL Normal 0.50-1.10 [facility] Comment on above: Performed By: #### V ITB12, HDL, CH8, LUCIAN ####[facility] [id number] [place], ESTIMATED GFR (CKD-EPI) 60 mL/min/1.73sqm Normal >=60 [facility] Comment on above: Result Comment: 2020 [...] Inclusion of Race in Diagnosing Kidney Disease. [place] Journal of Kidney Diseases 202;79(2):268-88.e1. 2. N Engl J Med 1 Vol. 385 Issue 19 Pages 8421-4619 Performed By: #### V ITB12, HDL, CH8, LUCIAN ####[facility] [id number] [place], Glucose [Mass/Vol] 85 mg/dL Normal 80-116 [facility] Comment on above: Performed By: #### V ITB12, HDL, CH8, LUCIAN ####[facility] [id number] [place], Potassium [Moles/Vol] 4.1 mmol/L Normal 3.3-5.3 [facility] Comment on above: Performed By: #### V ITB12, HDL, CH8, LUCIAN ####[facility] [id number] [place], Sodium [Moles/Vol] 141 mmol/L Normal 135-148 [facility] Comment on above: Performed By: #### V ITB12, HDL, CH8, LUCIAN ####[facility] [id number] [place], Urea nitrogen [Mass/Vol] 16 mg/dL Normal 8-22 [facility] Comment on above: Performed By: #### V ITB12, HDL, CH8, LUCIAN ####[facility] PATH[facility] [id number] [place], Basic metabolic 2000 panelon 03-09-2023 Anion [...] MDRD (S/P/Bld) [Vol rate/Area] 60 mL/min/{1.73_m2} - [facility] Comment on above: 2020 CKD EPI Equatio [...] Inclusion of Race in Diagnosing Kidney Disease. [place] Journal of Kidney Diseases 202;79(2):268-88.e1. 2. N Engl J Med 2020 Vol. 385 Issue 19 Pages 0085-6863 Glucose [Mass/Vol] 85 mg/dL 80 - 116 [...] [#/Vol] 229 10*3/uL 150 - 400 K/uL [facility] RBC (Bld) [#/Vol] 4.87 10*6/uL [facility] WBC (Bld) [#/Vol] 4.2 10*3/uL Low 4.5 - 11.5 K/uL [facility] CBC WITH DIFFERENTIALon 08-0 Basophils (Bld) [#/Vol] 0.03 10*3/uL Normal 0.00-0.20 [facility] Comment on above: Performed By: ###KERI VILLATORO ####[facility] PATHOLOGY [id number] [place], Basophils/100 WBC (Bld) 0.8 % Normal <=1.9 [facility] Comment on above: Performed By: ###KERI VILLATORO ####[facility] [id number] [place], Eosinophils (Bld) [#/Vol] 0.08 10*3/uL Normal 0.00-0.70 [facility] Comment on above: Performed By: #### KERI BEASLYE ####[facility] [id number] [place], Eosinophils/100 WBC (Bld) 2.0 % Normal 0.1-4.0 [facility] Comment on above: Performed By: #### KERI BEASLEY ####[facility] [id number] [place], Erythrocyte distribution width (RBC) [Ratio] 20.3 % High 11.5-14.5 [facility] Comment on above: Performed By: #### KERI BEASLEY ####S PATHOLOGY [id number] [place], Hematocrit (Bld) [Volume fraction] 37.7 % Normal 36.0-46.0 [facility] Comment on above: Performed By: ###KERI VILLATORO ####S PATHOLOGY [id number] [place], Hemoglobin (Bld) [Mass/Vol] 11.9 g/dL Low 12.0-15.0 [facility] Comment on above: Performed By: ###KERI VILLATORO ####[facility] [id number] [place], Lymphocytes (Bld) [#/Vol] 2.22 10*3/uL Normal 1.00-4.80 [facility] Comment on above: Performed By: #### KERI BEASLEY ####[facility] PATH[facility] [id number] [place] [address], Lymphocytes/100 WBC (Bld) 53.0 % High 24.0-44.0 [facility] Comment on above: Performed By: ###KERI VILLATORO ####[facility] PATHOLOGY [id number] [place] [address], MCH (RBC) [Entitic mass] 24.5 pg Low 26.0-34.0 [facility] Comment on above: Performed By: ###KERI VILLATORO ####[facility] PATH[facility]Y [id number] [place] [address], MCHC (RBC) [Mass/Vol] 31.6 g/dL Low 32.0-35.9 [facility] Comment on above: Performed By: ###KERI VILLATORO ####[facility] [id number] [place] [address], MCV (RBC) [Entitic vol] 78 fL Low 80-100 [facility] Comment on above: Performed By: ###KERI VILLATORO ####[facility] [id number] [place] [address], MONOCYTE DISTRIBUTION WIDTH Normal [facility] Comment on above: Performed By: ###KERI VILLATORO ####[facility] [id number] [place], Monocytes (Bld) [#/Vol] 0.29 10*3/uL Normal 0.20-1.00 [facility] Comment on above: Performed By: ###KERI VILLATORO ####[facility] PATH[facility] [id number] [place] [address], [place], Monocytes/100 WBC (Bld) 7.0 % Normal 2.0-11.0 [facility] Comment on above: Performed By: ###KERI VILLATORO ####[facility] [id number] [place], Neutrophils (Bld) [#/Vol] 1.56 10*3/uL Normal 1.50-8.00 [facility] Comment on above: Performed By: #### KERI BEASLEY ####[facility] [id number] [place], Neutrophils/100 WBC (Bld) 37.3 % Normal 31.0-76.0 [facility] Comment on above: Performed By: ###KERI VILLATORO ####[facility] [id number] [place] [address], Platelet mean volume (Bld) [Entitic vol] 8.0 fL Normal 7.5-11.2 [facility] Comment on above: Performed By: ###KERI VILLATORO ####[facility] [id number] [place], Platelets (Bld) [#/Vol] 229 10*3/uL Normal 150-400 [facility] Comment on above: Performed By: #### KERI BEASLEY ####[facility] [id number] [place], RBC (Bld) [#/Vol] 4.87 10*6/uL Normal 4.00-5.20 [facility] Comment on above: Performed By: ###KERI VILLATORO ####[facility] PATHOLOG[facility] [id number] [place], WBC (Bld) [#/Vol] 4.2 10*3/uL Low 4.5-11.5 [facility] Comment on above: Performed By: ###KERI VILLATORO ####S PATHOLOGY [id number] [place], DARK BLUE TOP TUBE, BLOODon 08-08-2023 Extra Tube Done [facility] FERRITINon 03-09-2023 Ferritin [Mass/Vol] 12.2 ng/mL 10.3 - 219.0 ng/mL [facility] Interpretation and review of laboratory results Normal [facility] LUCIAN 12.2 ng/mL Normal 10.3-219.0 [facility] Comment on above: Performed By: #### V ITB12, HDL, CH8, LUCIAN ####[facility] PATH[facility] [id number] [place], FULL LIPID PROFILEon 023 Cholesterol [Mass/Vol] 256 mg/dL High <200 Th e [facility] Comment on above: Performed By: #### V ITB12, HDL, CH8, LUCIAN ####[facility] PATHOLOG[facility] [id number] [place] [address], Cholesterol in LDL [Mass/Vol] 175 mg/dL High <111 [facility] Comment on above: Performed By: #### V ITB12, HDL, CH8, LUCIAN ####[facility] PATH[facility] [id number] [place] [address], Cholesterol.total/Chol esterol in HDL [Mass ratio] 3.66 {ratio} Normal <5.00 [facility] Comment on above: Performed By: #### V ITB12, HDL, CH8, LUCIAN ####[facility] PATHOLOG[facility] [id number] [place] [address], HDL CHOL 70 mg/dL Normal >54 [facility] Comment on above: Performed By: #### V ITB12, HDL, CH8, LUCIAN ####[facility] [id number] [place], LDL/HDL 2.50 Normal <3.57 [facility] Comment on above: Performed By: #### V ITB12, HDL, CH8, LUCIAN ####[facility] [id number] [place], NON-HDL CHOLESTEROL 186 mg/dL High <130 [facility] Comment on above: Performed By: #### V ITB12, HDL, CH8, LUCIAN ####[facility] [id number] [place], [phone] Triglyceride [Mass/Vol] 86 mg/dL Normal <151 [facility] Comment on above: Performed By: #### V ITB12, HDL, CH8, LUCIAN ####[facility] PATH[facility] [id number] [place], [address] HEMOGLOBIN A1Con 03-09-2023 Glucose [Mass/Vol] 123 mg/dL Normal [facility] Comment on above: Performed By: #### H B A1C #### S [facility] [address] [place], [address] HbA1c (Bld) [Mass fraction] 5.9 % High 4.0-5.6 [facility] Comment on above: Performed By: #### H B A1C #### [facility] [address] [place], [address] Lipid 1996 panelon 3 Cholesterol [Mass/Vol] 256 [...] 151 mg/dL [facility] MANUAL DIFF AND MORPHon -0 Cells Counted Total (Bld) [#] [facility] Microcytes Ql (Bld) Slight [facility] Ovalocytes LM Ql (Bld) Few [facility] RBC.hypochromic/100 RBC Auto (Bld) Slight [facility] Schistocytes LM Ql (Bld) Few [facility] Spherocytes LM Ql (Bld) Few [facility] CELLS COUNTED TOTAL # IN BLOOD Normal [facility] Comment on above: Performed By: #### KERI BEASLEY ####[facility] [id number] [place], FRAGMENTED RBC Few Normal [facility] Comment on above: Performed By: #### KERI BEASLEY ####[facility] [id number] [place], HYPOCHROMASIA Slight Normal [facility] Comment on above: Performed By: #### KERI BEASLEY ####[facility] [id number] [place], MICROCYTOSIS Slight Normal [facility] Comment on above: Performed By: #### KERI BEASLEY ####[facility] [id number] [place], OVALOCYTES Few Normal [facility] Comment on above: Performed By: #### KERI BEASLEY ####[facility] [id number] [place], SPHEROCYTES Few Normal [facility] Comment on above: Performed By: #### KERI BEASLEY ####S PATHOLOGY [id number] [place], No Panel Informationon 03-09 [facility] Progress Noteson 03-09-2023 Journal Entry Audit Clerk Authentication Interface Message Text Patient identified by name and date of . Blood obtained from arm. Normal [facility] Journal Entry Audit Clerk Authentication Interface Message Text Date: 03/09/23 Morena Patton 63 year old, female [id number] CHIEF COMPLAINT: Chief Complaint Patient presents with [...] about a week ago. She lives in [place] but came here today because viktoriya really knows me. She ran out of most of her medications and has not been taking them. She passed out last week and picked up some medications at that time. She is now on a heart monitor. She is due to see a accountant cost when she turns in her monitor. She was in the ED on January 30 for abdominal pain. She was discharged on Carafate. She started taking it on 02/24. She was in pain the entire time up until starting to take it. Her pain is now improved but not resolved. She states that she needs to see a campaign specialist and Neurologist and accountant cost. ED Morena Patton is a 62 year [...] with use of omeprazole, lidocaine patches, and [id number] mg tylenol which she has been taking [...] BARIATRIC SURGERY CPG 1999 ESOPHAGOGASTRODUODENOSCOPY (06/14/2019) Procedure: ESOPHAGOGASTRODUODENOSCOPY ; Surgeon: Abdullahi David MD; Location: [facility]; Service: Gastroenterology COLONOSCOPY AND ESOPHAGOGASTRODUODENOSCOPY (12/30/2021) Procedure: ESOPHAGOGASTRODUODENOSCOPY AND COLONOSCOPY; Surgeon: Davon Ha MD; Location: [facility]; Service: Gastroenterology Outpatient Medications Marked as Taking for the 03/09/23 encounter (Office Visit) with Tc (more content not included)... Normal [facility] Journal Entry Audit Clerk Authentication Interface Message Text Identification was verified [...] on above: Order Comment: <152 pg/mL - [id number] - 300 pg/mL- Insufficient>300 pg/mL - Sufficient Performed By: #### V ITB12, HDL, CH8, LUCIAN ####[facility] [id number] [place], [address] VITAMIN D, 25-HYDROXYon 25-hydroxyvitamin D IA [Mass/Vol] 62 ng/mL 30 - 100 ng/mL [facility] Interpretation and review of laboratory results Normal [facility] Deficient : <20.0 ng /mL Insufficient : 20.0-29.9 ng/mL Sufficient : 30.0 - 100.0 ng/mL Potential Toxicity : >100.0 ng/mL [facility] Telephone Encounteron 2022 Journal Entry Audit Clerk Authentication Interface Message Text Patient is calling [...] as a plan of action. Normal [facility] Absolute lymphocyte countOrd ered By: Virginie Aguillon on 02-16-2023 Lymphocytes Auto (Unsp spec) [#/Vol] 2.12 10*3/uL 0.83-4.51 [facility] Basophil percentageOrdered B y: Virginie Aguillon on 02-16-2023 Basophils/100 WBC (Bld) 0.8 % 0-1 [facility] Chloride [Moles/Vol] 108 mmol/L 98-107 [facility] Eosinophils/100 WBC (Bld) 4.0 % 0-5 [facility] Glucose [Mass/Vol] 91 mg/dL 74-106 [facility] Neutrophils (Bld) [#/Vol] 0.9 10*3/uL 2.0-7.7 [facility] Neutrophils/100 WBC (Bld) 26.0 % 47-70 [facility] Potassium [Moles/Vol] 4.0 mmol/L 3.5-5.1 [facility] Sodium [Moles/Vol] 138 mmol/L 136-145 [facility] WBC (Bld) [#/Vol] 3.5 10*3/uL 4.4-11.0 [facility] Blood erythrocytes count (nu mber/volume)Ordered By: Virginie Aguillon on 02-16-2023 RBC (Bld) [#/Vol] 4.45 10*6/uL 4.2-5.4 [facility] Blood hemoglobin measurement (mass/volume)Ordered By: Virginie Aguillon on 02-16-2023 Hemoglobin (Bld) [Mass/Vol] 10.5 g/dL 12.0-15.0 [facility] Blood lymphocytes/100 leukoc ytesOrdered By: Virginie Aguillon on 02-16-2023 Lymphocytes/100 WBC (Bld) 60.1 % 19-41 [facility] Blood manual differential co mment interpretation (narrative result)Ordered By: Virginie Aguillon on 02-16-2023 Manual differential comment Ryan (Bld) [Interp] SCANNED [facility] Comment on above: NEUTROPENIA Blood monocytes/100 leukocyt esOrdered By: Virginie Aguillon on 02-16-2023 Monocytes/100 WBC (Bld) 8.8 % 0-10 [facility] Blood platelet mean volumeOr dered By: Virginie Aguillon on 02-16-2023 Platelet mean volume (Bld) [Entitic vol] 10.1 fL 6.2-12.0 [facility] Determination of erythrocyte mean corpuscular volume (MCV)Ordered By: Virginie Aguillon on 02-16-2023 MCV (RBC) [Entitic vol] 79.1 fL 81-99 [facility] Hematocrit Auto (Bld) [Volum e fraction]Ordered By: Virginie Aguillon on 02-16-2023 Hematocrit (Bld) [Volume fraction] 35.2 % 37-47 [facility] Laboratory - Chemistry and C hemistry - challengeOrdered By: Virginie Aguillon on 02-16-2023 CO2 [Moles/Vol] 25.0 mmol/L 21.0-32.0 [facility] Urea nitrogen/Creatinine [Mass ratio] 8.9 mg/mg 10-20 [facility] Laboratory - Hematology and Cell countsOrdered By: Virginie Aguillon on 02-16-2023 Erythrocyte distribution width (RBC) [Entitic vol] 52.3 fL 35.1-43.9 [facility] Erythrocyte distribution width (RBC) [Ratio] 18.6 % 11.6-14.6 [facility] Immature granulocytes/100 WBC (Bld) 0.300 % 0.0-0.9 [facility] Comment on above: IG% - Immature Granu locytes (promyelocytes, myelocytes and metamyelocytes) > 1% indicates that a LEFT SHIFT is Present. MCH (RBC) [Entitic mass] 23.6 pg 27.0-32.0 [facility] Nucleated RBC/100 WBC (Bld) [Ratio] 0 % 0-5 [facility] MCHC Auto (RBC) [Mass/Vol]Or dered By: Virginie Aguillon on 02-16-2023 MCHC (RBC) [Mass/Vol] 29.8 g/dL 32-36 [facility] Comment on above: Delta: 31.7 on 02/15-0600 No Panel InformationOrdered By: Virginie Aguillon on 02-16-2023 Estimated Creatinine Clearance Calc 48.13 ml/min [facility] Estimated GFR (MDRD) Amer 63 mL/min >60 [facility] Comment on above: GFR Calc Estimated GFR (MDRD) Non-Af Amer 52 mL/min >60 [facility] Comment on above: Non- GFR Calc Platelets bldOrdered By: Lucero Aguillon on 02-16-2023 Platelets (Bld) [#/Vol] 206 10*3/uL 150-450 [facility] Serum or plasma calcium angela urement (mass/volume)Ordered By: Virginie Aguillon on 02-16-2023 Calcium [Mass/Vol] 9.1 mg/dL 8.5-10.1 [facility] Serum or plasma creatinine m easurement (mass/volume)Ordered By: Virginie Aguillon on 02-16-2023 Creatinine [Mass/Vol] 1.12 mg/dL 0.55-1.02 [facility] Comment on above: The validity of the calculated GFR & GFRAA in patients over 70 years has not been determined. Clinical correlation is essential. Serum or plasma urea nitroge n measurement (mass/volume)Ordered By: Virginie Aguillon on 02-16-2023 Urea nitrogen [Mass/Vol] 10 mg/dL 02-16 [facility] Thin prep Papanicolaou smear with manual screeningOrdered By: Virginie Aguillon on 02-16-2023 Thin prep Papanicolaou smear with manual screening 5 5- [facility] Basophil percentageOrdered B y: Drew Solis on 02-15-2023 Basophil percentage 3.6 mg/dL 2.5-4.9 [facility] Bilirubin [Mass/Vol] 0.20 mg/dL 0.20-1.00 [facility] Comment on above: For patients on eltr ombopag therapy, use of Dimension [place] TBIL is not recommended. Cholesterol [Mass/Vol] 196 mg/dL <200 [facility] Comment on above: <200 mg/dL Desirable 200-240 mg/dL Borderline >240 mg/dL High Risk Protein [Mass/Vol] 6.1 g/dL 6.4-8.2 [facility] Triglyceride [Mass/Vol] 141 mg/dL <199 [facility] Comment on above: The drugs N-Acetylcy steine and Metamizole may falsely depress this assay.Serum Triglycerides Reference Interval Normal <150 mg/dL Borderline high 150 - 199 mg/dL High 200 - 499 mg/dL Very High > or = 500 mg/dL Laboratory - Chemistry and C hemistry - challengeOrdered By: Drew Solis on 02-15-2023 ALP [Catalytic activity/Vol] 81 U/L 45-117 [facility] ALT [Catalytic activity/Vol] 15 U/L 13-56 [facility] Globulin (S) [Mass/Vol] 3.4 g/dL 2.2-4.2 [facility] Magnesium [Mass/Vol] 2.3 mg/dL 1.6-2.6 [facility] No Panel InformationOrdered By: Drew Solis on 02-15-2023 Thyroid Stimulating Hormone (TSH) 1.25 uIU/mL 0.358-3.74 [facility] Serum or plasma albumin angela urement (mass/volume)Ordered By: Drew Solis on 02-15-2023 Albumin [Mass/Vol] 2.7 g/dL 3.2-5.0 [facility] Serum or plasma albumin/glob ulin mass ratioOrdered By: Drew Solis on 02-15-2023 Albumin/Globulin [Mass ratio] 0.8 {ratio} 0.9-2.4 [facility] Serum or plasma cholesterol in HDL measurement (mass/volume)Ordered By: Drew Solis on 02-15-2023 Cholesterol in HDL [Mass/Vol] 92 mg/dL >40 [facility] Comment on above: The drugs N-Acetylcy steine and Metamizole may falsely depress this assay. Reference Range HDL <40 mg/dL Low HDL Cholesterol HDL >or= 60 mg/dL High HDL Cholesterol Serum or plasma cholesterol in VLDL measurement (mass/volume)Ordered By: Drew Solis on 02-15-2023 Cholesterol in VLDL [Mass/Vol] 28 mg/dL 5-40 [facility] Serum or plasma low density lipoprotein (LDL) cholesterol measurement (mass/volume)Ordered By: Drew Solis on 02-15-2023 Cholesterol in LDL [Mass/Vol] 76 mg/dL 0-130 [facility] Thin prep Papanicolaou smear with manual screeningOrdered By: Drew Solis on 02-15-2023 Thin prep Papanicolaou smear with manual screening 19 U/L 15-37 [facility] Iron measurement (mass/mass) Ordered By: Drew Solis on 02-14-2023 Iron (Unsp spec) [Mass/Mass] 23 ug/dL 50-170 [facility] Laboratory - Chemistry and C hemistry - challengeOrdered By: Jeniffer Campos on 02-14-2023 Cobalamin (Vitamin B12) [Mass/Vol] 199 pg/mL 211-911 [facility] No Panel InformationOrdered By: Drew Solis on 02-14-2023 Total Iron Binding Capacity 375 ug/dL 250-450 [facility] No Panel InformationOrdered By: Jeniffer Campos on 02-14-2023 Troponin I High Sensitivity 27 pg/mL 3.0-54.0 [facility] Comment on above: Please Note: New Sary t Units and Gender Specific Reference Ranges. For more information see Policy Stat Procedure [place] High Sensitivity Troponin (TNIH) and attachments. Serum or plasma ferritin cortney surement (mass/volume)Ordered By: Drew Solis on 02-14-2023 Ferritin [Mass/Vol] 9 ng/mL 8-252 [facility] Serum or plasma folate measu rement (mass/volume)Ordered By: Jeniffer Campos on 02-14-2023 Folate [Mass/Vol] 7.40 ng/mL 3.1-55.4 [facility] Serum or plasma iron saturat ion measurement (mass fraction)Ordered By: Drew Solis on 02-14-2023 Iron saturation [Mass fraction] 6.1 % 15.0-55.0 [facility] Absolute lymphocyte countOrd ered By: Albert Carbone on 02-13-2023 Lymphocytes Auto (Unsp spec) [#/Vol] 1.92 10*3/uL 0.83-4.51 [facility] Basophil percentageOrdered B y: Albert Carbone on 02-13-2023 Potassium [Moles/Vol] 4.1 mmol/L 3.5-5.1 [facility] Basophils/100 WBC (Bld) 0.7 % 0-1 [facility] Chloride [Moles/Vol] 106 mmol/L 98-107 [facility] Eosinophils/100 WBC (Bld) 1.9 % 0-5 [facility] Glucose [Mass/Vol] 99 mg/dL 74-106 [facility] Neutrophils (Bld) [#/Vol] 1.7 10*3/uL 2.0-7.7 [facility] Neutrophils/100 WBC (Bld) 39.8 % 47-70 [facility] Sodium [Moles/Vol] 136 mmol/L 136-145 [facility] WBC (Bld) [#/Vol] 4.2 10*3/uL 4.4-11.0 [facility] Blood erythrocytes count (nu mber/volume)Ordered By: Albert Carbone on 02-13-2023 RBC (Bld) [#/Vol] 5.13 10*6/uL 4.2-5.4 [facility] Blood hemoglobin measurement (mass/volume)Ordered By: Albert Carbone on 02-13-2023 Hemoglobin (Bld) [Mass/Vol] 12.2 g/dL 12.0-15.0 [facility] Blood lymphocytes/100 leukoc ytesOrdered By: Albert Carbone on 02-13-2023 Lymphocytes/100 WBC (Bld) 46.3 % 19-41 [facility] Blood monocytes/100 leukocyt esOrdered By: Albert Carbone on 02-13-2023 Monocytes/100 WBC (Bld) 10.8 % 0-10 [facility] Blood platelet mean volumeOr dered By: Albert Carbone on 02-13-2023 Platelet mean volume (Bld) [Entitic vol] 9.8 fL 6.2-12.0 [facility] Determination of erythrocyte mean corpuscular volume (MCV)Ordered By: Albert Carbone on 02-13-2023 MCV (RBC) [Entitic vol] 75.8 fL 81-99 [facility] Hematocrit Auto (Bld) [Volum e fraction]Ordered By: Albert Carbone on 02-13-2023 Hematocrit (Bld) [Volume fraction] 38.9 % 37-47 [facility] Laboratory - Chemistry and C hemistry - challengeOrdered By: Jeniffer Campos on 02-13-2023 Magnesium [Mass/Vol] 2.0 mg/dL 1.6-2.6 [facility] Laboratory - Chemistry and C hemistry - challengeOrdered By: Albert Carbone on 02-13-2023 CO2 [Moles/Vol] 23.0 mmol/L 21.0-32.0 [facility] Urea nitrogen/Creatinine [Mass ratio] 11.3 mg/mg 10-20 [facility] Laboratory - Drug toxicology Ordered By: Jeniffer Campos on 02-13-2023 Amphetamines Ql (U) Negative <1000 ng/mL [facility] Benzodiazepines Ql (U) Negative < 200 ng/mL [facility] Cannabinoids Screen Ql (U) Positive < 50 ng/mL [facility] Cocaine Ql (U) Negative < 300 ng/mL [facility] Opiates Ql (U) Negative < 300 ng/mL [facility] Laboratory - Hematology and Cell countsOrdered By: Albert Carbone on 02-13-2023 Erythrocyte distribution width (RBC) [Entitic vol] 47.8 fL 35.1-43.9 [facility] Erythrocyte distribution width (RBC) [Ratio] 18.0 % 11.6-14.6 [facility] Immature granulocytes/100 WBC (Bld) 0.500 % 0.0-0.9 [facility] Comment on above: IG% - Immature Granu locytes (promyelocytes, myelocytes and metamyelocytes) > 1% indicates that a LEFT SHIFT is Present. MCH (RBC) [Entitic mass] 23.8 pg 27.0-32.0 [facility] Nucleated RBC/100 WBC (Bld) [Ratio] 0 % 0-5 [facility] MCHC Auto (RBC) [Mass/Vol]Or dered By: Albert Carbone on 02-13-2023 MCHC (RBC) [Mass/Vol] 31.4 g/dL 32-36 [facility] No Panel InformationOrdered By: Jeniffer Campos on 02-13-2023 Ethyl Alcohol Level < 3.0 mg/dL [facility] Comment on above: The serum:whole bloo d ethanol ratio is approximately 1.14and varies slightly with hematocrit. Medical Alcohol reference interval and critical value innon-tolerant individuals; 50 - 100 Impairment 100 Intoxication 100 - 250 Severe Poisoning 250 - 400 Deep/possible fatal coma MDMA (Ecstasy) Screen Negative < 500 ng/mL [facility] Urine Barbiturates Screen Negative < 200 ng/mL [facility] Urine Drug Screen Comment [facility] Comment on above: CONFIRMATORY TESTING FOR ALL [...] Urine Methadone Screen Negative < 300 ng/mL [facility] No Panel InformationOrdered By: Albert Carbone on 02-13-2023 Estimated Creatinine Clearance Calc 50.85 ml/min [facility] Estimated GFR (MDRD) Amer 67 mL/min >60 [facility] Comment on above: GFR Calc Estimated GFR (MDRD) Non-Af Amer 56 mL/min >60 [facility] Comment on above: Non- GFR Calc Troponin I High Sensitivity 26 pg/mL 3.0-54.0 [facility] Comment on above: Please Note: New Sary t Units and Gender Specific Reference Ranges. For more information see Policy Stat Procedure [place] High Sensitivity Troponin (TNIH) and attachments. Platelets bldOrdered By: Didier Carbone on 02-13-2023 Platelets (Bld) [#/Vol] 237 10*3/uL 150-450 [facility] Serum or plasma calcium angela urement (mass/volume)Ordered By: Albert Carbone on 02-13-2023 Calcium [Mass/Vol] 9.3 mg/dL 8.5-10.1 [facility] Serum or plasma creatinine m easurement (mass/volume)Ordered By: Albert Carbone on 02-13-2023 Creatinine [Mass/Vol] 1.06 mg/dL 0.55-1.02 [facility] Comment on above: The validity of the calculated GFR & GFRAA in patients over 70 years has not been determined. Clinical correlation is essential. Serum or plasma urea nitroge n measurement (mass/volume)Ordered By: Albert Carbone on 02-13-2023 Urea nitrogen [Mass/Vol] 12 mg/dL 02-16 [facility] Thin prep Papanicolaou smear with manual screeningOrdered By: Albert Carbone on 02-13-2023 Thin prep Papanicolaou smear with manual screening 12-14 [facility] Urine phencyclidine (PCP) de tectionOrdered By: Jeniffer Campos on 02-13-2023 Phencyclidine Ql (U) Negative < 25 ng/mL [facility] Absolute lymphocyte countOrd ered By: Dr. Tom on 10-22-2022 Lymphocytes Auto (Unsp spec) [#/Vol] 2.07 10*3/uL 0.83-4.51 [facility] Basophil percentageOrdered B y: Dr. Tom on 10-22-2022 Basophil percentage 0-5 SEEN /hpf 0-5 [facility] Basophils/100 WBC (Bld) 0.6 % 0-1 [facility] Bilirubin [Mass/Vol] 0.30 mg/dL 0.20-1.00 [facility] Comment on above: For patients on eltr ombopag therapy, use of Dimension [place] TBIL is not recommended. Chloride [Moles/Vol] 109 mmol/L 98-107 [facility] Eosinophils/100 WBC (Bld) 2.5 % 0-5 [facility] Glucose [Mass/Vol] 106 mg/dL 74-106 [facility] Comment on above: Fasting Glucose resu lt from 100 to 125 mg/dL suggests IMPAIRED HOMEOSTASIS per A.D.A. criteria. Neutrophils (Bld) [#/Vol] 2.2 10*3/uL 2.0-7.7 [facility] Neutrophils/100 WBC (Bld) 45.8 % 47-70 [facility] Potassium [Moles/Vol] 3.8 mmol/L 3.5-5.1 [facility] Protein [Mass/Vol] 7.0 g/dL 6.4-8.2 [facility] Sodium [Moles/Vol] 139 mmol/L 136-145 [facility] WBC (Bld) [#/Vol] 4.8 10*3/uL 4.4-11.0 [facility] Bilirubin Test strip Ql (U)O rdered By: Dr. Tom on 10-22-2022 Bilirubin Ql (U) Negative Negative [facility] Blood erythrocytes count (nu mber/volume)Ordered By: Dr. Tom on 10-22-2022 RBC (Bld) [#/Vol] 4.84 10*6/uL 4.2-5.4 [facility] Blood hemoglobin measurement (mass/volume)Ordered By: Dr. Tom on 10-22-2022 Hemoglobin (Bld) [Mass/Vol] 12.2 g/dL 12.0-15.0 [facility] Blood lymphocytes/100 leukoc ytesOrdered By: Dr. Tom on 10-22-2022 Lymphocytes/100 WBC (Bld) 43.4 % 19-41 [facility] Blood monocytes/100 leukocyt esOrdered By: Dr. Tom on 10-22-2022 Monocytes/100 WBC (Bld) 7.5 % 0-10 [facility] Blood platelet mean volumeOr dered By: Dr. Tom on 10-22-2022 Platelet mean volume (Bld) [Entitic vol] 9.1 fL 6.2-12.0 [facility] Determination of erythrocyte mean corpuscular volume (MCV)Ordered By: Dr. Tom on 10-22-2022 MCV (RBC) [Entitic vol] 77.9 fL 81-99 [facility] Hematocrit Auto (Bld) [Volum e fraction]Ordered By: Dr. Tom on 10-22-2022 Hematocrit (Bld) [Volume fraction] 37.7 % 37-47 [facility] Ketones Test strip Ql (U)Ord ered By: Dr. Tom on 10-22-2022 Ketones Ql (U) Negative Negative [facility] Laboratory - Chemistry and C hemistry - challengeOrdered By: Dr. Tom on 10-22-2022 ALP [Catalytic activity/Vol] 95 U/L 45-117 [facility] ALT [Catalytic activity/Vol] 15 U/L 13-56 [facility] CO2 [Moles/Vol] 22.0 mmol/L 21.0-32.0 [facility] Globulin (S) [Mass/Vol] 3.4 g/dL 2.2-4.2 [facility] Lipase [Catalytic activity/Vol] 182 U/L 73-393 [facility] Urea nitrogen/Creatinine [Mass ratio] 15.2 mg/mg 10-20 [facility] Laboratory - Hematology and Cell countsOrdered By: Dr. Tom on 10-22-2022 Erythrocyte distribution width (RBC) [Entitic vol] 47.2 fL 35.1-43.9 [facility] Erythrocyte distribution width (RBC) [Ratio] 17.1 % 11.6-14.6 [facility] Immature granulocytes/100 WBC (Bld) 0.200 % 0.0-0.9 [facility] Comment on above: IG% - Immature Granu locytes (promyelocytes, myelocytes and metamyelocytes) > 1% indicates that a LEFT SHIFT is Present. MCH (RBC) [Entitic mass] 25.2 pg 27.0-32.0 [facility] Nucleated RBC/100 WBC (Bld) [Ratio] 0 % 0-5 [facility] MCHC Auto (RBC) [Mass/Vol]Or dered By: Dr. Tom on 10-22-2022 MCHC (RBC) [Mass/Vol] 32.4 g/dL 32-36 [facility] Mucus LM Ql (Urine sed)Order ed By: Dr. Tom on 10-22-2022 Mucus Ql (Urine sed) 0 SEEN /hpf [facility] Nitrite Test strip Ql (U)Ord ered By: Dr. Tom on 10-22-2022 Nitrite Ql (U) Negative Negative [facility] No Panel InformationOrdered By: Dr. Tom on 10-22-2022 Estimated Creatinine Clearance Calc 55.16 ml/min [facility] Estimated GFR (MDRD) Amer 73 mL/min >60 [facility] Comment on above: GFR Calc Estimated GFR (MDRD) Non-Af Amer 61 mL/min >60 [facility] Comment on above: Non- GFR Calc Troponin I High Sensitivity 27 pg/mL 3.0-54.0 [facility] Comment on above: Please Note: New Sary t Units and Gender Specific Reference Ranges. For more information see Policy Stat Procedure [place] High Sensitivity Troponin (TNIH) and attachments. Platelets bldOrdered By: Dr. Tom on 10-22-2022 Platelets (Bld) [#/Vol] 276 10*3/uL 150-450 [facility] Protein Test strip Ql (U)Ord ered By: Dr. Tom on 10-22-2022 Protein Ql (U) 30 mg/dl Negative [facility] Serum or plasma albumin angela urement (mass/volume)Ordered By: Dr. Tom on 10-22-2022 Albumin [Mass/Vol] 3.6 g/dL 3.2-5.0 [facility] Serum or plasma albumin/glob ulin mass ratioOrdered By: Dr. Tom on 10-22-2022 Albumin/Globulin [Mass ratio] 1.1 {ratio} 0.9-2.4 [facility] Serum or plasma calcium angela urement (mass/volume)Ordered By: Dr. Tom on 10-22-2022 Calcium [Mass/Vol] 9.3 mg/dL 8.5-10.1 [facility] Serum or plasma creatinine m easurement (mass/volume)Ordered By: Dr. Tom on 10-22-2022 Creatinine [Mass/Vol] 0.99 mg/dL 0.55-1.02 [facility] Comment on above: The validity of the calculated GFR & GFRAA in patients over 70 years has not been determined. Clinical correlation is essential. Serum or plasma urea nitroge n measurement (mass/volume)Ordered By: Dr. Tom on 10-22-2022 Urea nitrogen [Mass/Vol] 15 mg/dL 7-18 [facility] Squamous epithelial cells de tection in urine sediment by light microscopyOrdered By: Dr. Tom on 10-22-2022 Epithelial cells.squamous LM Ql (Urine sed) 0-5 SEEN /hpf 5-10 [facility] Thin prep Papanicolaou smear with manual screeningOrdered By: Dr. Tom on 10-22-2022 Thin prep Papanicolaou smear with manual screening 16 U/L 15-37 [facility] Thin prep Papanicolaou smear with manual screening 8 5-15 [facility] Urine blood detectionOrdered By: Dr. Tom on 10-22-2022 RBC Ql (U) 150 /ul Negative [facility] RBC Ql (U) 0 SEEN /hpf 0-5 [facility] Urine clarityOrdered By: Dr. Tom on 10-22-2022 Clarity (U) Clear Clear [facility] Urine color determinationOrd ered By: Dr. Tom on 10-22-2022 Color (U) YELLOW Yellow [facility] Urine glucose detectionOrder ed By: Dr. Tom on 10-22-2022 Glucose Ql (U) Normal mg/dl Normal [facility] Urine leukocyte esterase det ection by dipstickOrdered By: Dr. Tom on 10-22-2022 Leukocyte esterase Test strip Ql (U) 500 /ul Negative [facility] Urine pHOrdered By: Dr. Porfirio li on 10-22-2022 pH (U) 7.0 [pH] 5.0 - 8.0 [facility] Urine sediment bacteria coun t by microscopy (number/high power field)Ordered By: Dr. Tom on 10-22-2022 Bacteria LM.HPF (Urine sed) [#/Area] 0 /[HPF] None Seen [facility] Urine specific gravity measu rementOrdered By: Dr. Tom on 10-22-2022 Specific gravity (U) [Rel density] 1.015 1.002-1.03 0 [facility] Urobilinogen Auto test strip Ql (U)Ordered By: Dr. Tom on 10-22-2022 Urobilinogen Ql (U) Normal mg/dl Normal [facility] Absolute lymphocyte countOrd ered By: Dr. Houston on 07-07-2022 Lymphocytes Auto (Unsp spec) [#/Vol] 2.12 10*3/uL 0.83-4.51 [facility] Basophil percentageOrdered B y: Dr. Houston on 07-07-2022 Basophils/100 WBC (Bld) 0.6 % 0-1 [facility] Bilirubin [Mass/Vol] 0.40 mg/dL 0.20-1.00 [facility] Comment on above: For patients on eltr ombopag therapy, use of Dimension [place] TBIL is not recommended. Chloride [Moles/Vol] 101 mmol/L 98-107 [facility] Eosinophils/100 WBC (Bld) 1.5 % 0-5 [facility] Glucose [Mass/Vol] 100 mg/dL 74-106 [facility] Comment on above: Fasting Glucose resu lt from 100 to 125 mg/dL suggests IMPAIRED HOMEOSTASIS per A.D.A. criteria. Neutrophils (Bld) [#/Vol] 2.2 10*3/uL 2.0-7.7 [facility] Neutrophils/100 WBC (Bld) 45.8 % 47-70 [facility] Potassium [Moles/Vol] 3.9 mmol/L 3.5-5.1 [facility] Protein [Mass/Vol] 7.0 g/dL 6.4-8.2 [facility] Sodium [Moles/Vol] 134 mmol/L 136-145 [facility] WBC (Bld) [#/Vol] 4.7 10*3/uL 4.4-11.0 [facility] Blood erythrocytes count (nu mber/volume)Ordered By: Dr. Houston on 07-07-2022 RBC (Bld) [#/Vol] 4.94 10*6/uL 4.2-5.4 [facility] Blood hemoglobin measurement (mass/volume)Ordered By: Dr. Houston on 07-07-2022 Hemoglobin (Bld) [Mass/Vol] 13.1 g/dL 12.0-15.0 [facility] Blood lymphocytes/100 leukoc ytesOrdered By: Dr. Houston on 07-07-2022 Lymphocytes/100 WBC (Bld) 44.9 % 19-41 [facility] Blood monocytes/100 leukocyt esOrdered By: Dr. Houston on 07-07-2022 Monocytes/100 WBC (Bld) 7.0 % 0-10 [facility] Blood platelet mean volumeOr dered By: Dr. Houston on 07-07-2022 Platelet mean volume (Bld) [Entitic vol] 8.9 fL 6.2-12.0 [facility] Determination of erythrocyte mean corpuscular volume (MCV)Ordered By: Dr. Houston on 07-07-2022 MCV (RBC) [Entitic vol] 80.8 fL 81-99 [facility] Hematocrit Auto (Bld) [Volum e fraction]Ordered By: Dr. Houston on 07-07-2022 Hematocrit (Bld) [Volume fraction] 39.9 % 37-47 [facility] Laboratory - Chemistry and C hemistry - challengeOrdered By: Dr. Houston on 07-07-2022 ALP [Catalytic activity/Vol] 92 U/L 45-117 [facility] ALT [Catalytic activity/Vol] 16 U/L 13-56 [facility] CO2 [Moles/Vol] 24.0 mmol/L 21.0-32.0 [facility] Globulin (S) [Mass/Vol] 3.7 g/dL 2.2-4.2 [facility] Urea nitrogen/Creatinine [Mass ratio] 15.9 mg/mg 10-20 [facility] Laboratory - Hematology and Cell countsOrdered By: Dr. Houston on 07-07-2022 Erythrocyte distribution width (RBC) [Entitic vol] 50.6 fL 35.1-43.9 [facility] Erythrocyte distribution width (RBC) [Ratio] 17.2 % 11.6-14.6 [facility] Immature granulocytes/100 WBC (Bld) 0.200 % 0.0-0.9 [facility] Comment on above: IG% - Immature Granu locytes (promyelocytes, myelocytes and metamyelocytes) > 1% indicates that a LEFT SHIFT is Present. MCH (RBC) [Entitic mass] 26.5 pg 27.0-32.0 [facility] Nucleated RBC/100 WBC (Bld) [Ratio] 0 % 0-5 [facility] MCHC Auto (RBC) [Mass/Vol]Or dered By: Dr. Houston on 07-07-2022 MCHC (RBC) [Mass/Vol] 32.8 g/dL 32-36 [facility] No Panel InformationOrdered By: Dr. Houston on 07-07-2022 Estimated Creatinine Clearance Calc 48.32 ml/min [facility] Estimated GFR (MDRD) Amer 63 mL/min >60 [facility] Comment on above: GFR Calc Estimated GFR (MDRD) Non-Af Amer 52 mL/min >60 [facility] Comment on above: Non- GFR Calc Troponin I High Sensitivity 29 pg/mL 3.0-54.0 [facility] Comment on above: Please Note: New Sary t Units and Gender Specific Reference Ranges. For more information see Policy Stat Procedure [place] High Sensitivity Troponin (TNIH) and attachments. Platelets bldOrdered By: Dr. Houston on 07-07-2022 Platelets (Bld) [#/Vol] 282 10*3/uL 150-450 [facility] Serum or plasma albumin angela urement (mass/volume)Ordered By: Dr. Houston on 07-07-2022 Albumin [Mass/Vol] 3.3 g/dL 3.2-5.0 [facility] Serum or plasma albumin/glob ulin mass ratioOrdered By: Dr. Houston on 07-07-2022 Albumin/Globulin [Mass ratio] 0.9 {ratio} 0.9-2.4 [facility] Serum or plasma calcium angela urement (mass/volume)Ordered By: Dr. Houston on 07-07-2022 Calcium [Mass/Vol] 9.5 mg/dL 8.5-10.1 [facility] Serum or plasma creatinine m easurement (mass/volume)Ordered By: Dr. Houston on 07-07-2022 Creatinine [Mass/Vol] 1.13 mg/dL 0.55-1.02 [facility] Comment on above: The validity of the calculated GFR & GFRAA in patients over 70 years has not been determined. Clinical correlation is essential. Serum or plasma urea nitroge n measurement (mass/volume)Ordered By: Dr. Houston on 07-07-2022 Urea nitrogen [Mass/Vol] 18 mg/dL 7-18 [facility] Thin prep Papanicolaou smear with manual screeningOrdered By: Dr. Houston on 07-07-2022 Thin prep Papanicolaou smear with manual screening 17 U/L 15-37 [facility] Thin prep Papanicolaou smear with manual screening 9 5-15 [facility] Basic metabolic 2000 panelon 01-01-2022 Anion gap [Moles/Vol] 10 mmol/L [facility] Calcium [Mass/Vol] 8.9 mg/dL 8.4 - 10. [...] clinical presentation. Reference: 1. Chas Brito, Vic M, Anastasia MIN, et al.. A Unifying Approach for GFR Estimation: Recommendations of the NKF-ASN Task Force on Reassessing the Inclusion of Race in Diagnosing Kidney Disease. [place] Journal of Kidney Diseases 202;79(2):268-88.e1. 2. N Engl J Med 1 Vol. 385 Issue 19 Pages 9886-4825 Glucose [Mass/Vol] 98 mg/dL 80 - 116 [...] 12-31-2021 Anion gap [Moles/Vol] 12 mmol/L [facility] Calcium [Mass/Vol] 9.3 mg/dL 8.4 [...] Inclusion of Race in Diagnosing Kidney Disease. [place] Journal of Kidney Diseases 202;79(2):268-88.e1. 2. N Engl J Med 2020 Vol. 385 Issue 19 Pages 7837-3671 Glucose [Mass/Vol] 115 mg/dL 80 - 116 [...] mg/dL [facility] MANUAL DIFF AND MORPHon 06-0 Cells Counted Total (Bld) [#] [facility] Microcytes Ql (Bld) Slight [facility] Ovalocytes LM Ql (Bld) Few [facility] RBC.hypochromic/100 RBC Auto (Bld) Slight [facility] Schistocytes LM Ql (Bld) Few [facility] Target cells LM Ql (Bld) Few [facility] No Panel InformationOrdered By: Анна Kwan on 12-31-2021 [facility] Basic metabolic 2000 panelon 12-30-2021 Anion gap [Moles/Vol] 14 mmol/L [facility] Calcium [Mass/Vol] 9.5 mg/dL 8.4 - 10. [...] clinical presentation. Reference: 1. Chas Brito, Vic M, Anastasia MIN, et al.. A Unifying Approach for GFR Estimation: Recommendations of the NKF-ASN Task Force on Reassessing the Inclusion of Race in Diagnosing Kidney Disease. [place] Journal of Kidney Diseases 2021;79(2):268-88.e1. 2. N Engl J Med 2020 Vol. 385 Issue 19 Pages 4778-6912 Glucose [Mass/Vol] 100 mg/dL 80 - 116 mg/dL [facility] Interpretation and review of laboratory results Abnormal [facility] Potassium [Moles/Vol] 3.8 mmol/L 3.3 - 5.3 mmol/L [facility] Sodium [Moles/Vol] 138 mmol/L 135 - 148 mmol/L [facility] Urea nitrogen [Mass/Vol] 5 mg/dL Low 8 - 22 mg/dL [facility] CBC WITH DIFFERENTIALOrdered By: Shannon Locktet on 12-30-2021 Basophils (Bld) [#/Vol] 0.03 10*3/uL [...] YUMIKO LUGO ([id number]) on 12/30/2021 7:42:32 PM [facility] P wave [facility] by EKG 95 BPM [facility] P wave axis 58 degrees [facility] P-R Interval 142 ms [facility] Q-T interval 372 ms [facility] Q-T interval corrected 467 ms [facility] QRS axis -2 degrees [facility] QRS duration 70 ms [facility] T wave axis 56 degrees [facility] MAGNESIUMon 12-30-2021 Interpretation and review of laboratory [...] Interpretation and review of laboratory results [facility] IRON AND TIBCon 12-29-2021 Interpretation and [...] panelon 12-28-2021 Anion gap [Moles/Vol] 17 mmol/L [facility] Calcium [Mass/Vol] 9.3 mg/dL 8.4 - 10. [...] clinical presentation. Reference: 1. Chas Brito, Vic M, Anastasia MIN, et al.. A Unifying Approach for GFR Estimation: Recommendations of the NKF-ASN Task Force on Reassessing the Inclusion of Race in Diagnosing Kidney Disease. [place] Journal of Kidney Diseases 2021;79(2):268-88.e1. 2. N Engl J Med 2020 Vol. 385 Issue 19 Pages 8998-7727 Glucose [Mass/Vol] 112 mg/dL 80 - 116 [...] SST TUBE, BLOODon 12-28-2021 Extra Tube Done [facility] HEPATIC FUNCTION PANELon Albumin [Mass/Vol] 3.3 [...] [Mass/Vol] 5.7 g/dL 5.7 - 8.1 g/dL [facility] LIPASEon 12-28-2021 Interpretation and review of laboratory results Normal [facility] Lipase [Catalytic activity/Vol] 23 U/L <128 IU/L [facility] POTASSIUM, WHOLE BLOODOrdere d By: Razia De Anda on 12-28-2021 Interpretation and review of laboratory results Normal [facility] Potassium [Moles/Vol] 3.7 mmol/L 3.3 - 5.3 mmol/L [facility] TROPONIN Ion 12-28-2021 Interpretation and review of laboratory results Normal [facility] Troponin I.cardiac DL <= 0.01 ng/mL [Mass/Vol] ng/mL <0.120 ng/mL [facility] Comment on above: Range <=0.04 ng/mL: [...] injury. Interpretation: Clinical and laboratory correlation recommended. [facility] DRUGUon 07-05-2019 Drug Screen Urine Positive [facility]) Comment on above: Performed By: #### D RUGU #### [address] [address] Drug Screen Urine Interp Positive [facility]) Comment on above: Performed By: #### D RUGU #### [address] [address] U pH Drug Scrn 6.0 Normal 5.0-8.0 [facility] ([place]) Comment on above: Performed By: #### D RUGU #### [address] [address] U Specific [place] Drg Scrn 1.030 Normal 1.005-1.03 0 [facility] ([place]) Comment on above: Performed By: #### D RUGU #### [address] [address] Urine Drugs screened: See Below Normal [facility] ([place]) Comment on above: Result Comment: This drug [...] ONLY. Performed By: #### D MARTY #### [place] [address] .Auto Diffon 06-13-2019 Ammonia (P) [Mass/Vol] 0.30 10 3/mcL Normal 0.15-1.00 [facility] ([place]) Comment on above: Performed By: #### WILL CARRINGTON ANEU #### [address] [address] Basophils (Bld) [#/Vol] 0.00 10 3/mcL Normal 0.00-0.19 [facility] ([place]) Comment on above: Performed By: ###WILL NO ANEU #### [address] [address] Basophils/100 WBC (Bld) 0.8 % Normal 0.0-2.5 [facility] ([place]) Comment on above: Performed By: #### WILL CARRINGTON ANEU #### [address] [address] Eosinophils (Bld) [#/Vol] 0.10 10 3/mcL Normal 0.00-0.40 [facility] ([place]) Comment on above: Performed By: #### WILL CARRINGTON ANEU #### [address] [address] Eosinophils/100 WBC (Bld) 3.4 % Normal 0.0-7.0 [facility] ([place]) Comment on above: Performed By: #### WILL CARRINGTON ANEU #### [address] [address] Lymphocytes (Bld) [#/Vol] 1.60 10 3/mcL Normal 0.77-3.85 [facility] ([place]) Comment on above: Performed By: #### WILL CARRINGTON, ANEU #### [address] [address] Lymphocytes/100 WBC (Bld) 37.7 % Normal 10.0-50.0 [facility] ([place]) Comment on above: Performed By: #### C WILL MCLAUGHLIN, ANEU #### [address] [address] Monocytes/100 WBC (Bld) 8.0 % Normal 1.7-13.0 [facility] ([place]) Comment on above: Performed By: #### WILL CARRINGTON, ANEU #### [address] [address] Neutrophils/100 WBC (Bld) 50.1 % Normal 37.0-80.0 [facility] ([place]) Comment on above: Performed By: #### C WILL MCLAUGHLIN, ANEU #### [address] [address] .NEUABSon 06-13-2019 Neutrophils (Bld) [#/Vol] 2.10 10 3/mcL Low 2.85-6.16 [facility] ([place]) Comment on above: Performed By: #### C WILL MCLAUGHLIN, ANEU #### [address] [address] CBCon 06-13-2019 Erythrocyte distribution width (RBC) [Ratio] 20.2 % High 11.5-14.5 [facility] ([place]) Comment on above: Performed By: #### WILL CARRINGTON, ANEU #### [address] [address] Hematocrit (Bld) [Volume fraction] 33.7 % Low 37.0-47.0 [facility] ([place]) Comment on above: Performed By: #### WILL CARRINGTON, ANEU #### [place] [id number] Hemoglobin (Bld) [Mass/Vol] 10.7 G/dL Low 12.0-16.0 [facility] ([place]) Comment on above: Performed By: #### C WILL MCLAUGHLIN, ANEU #### [address] [address] MCH (RBC) [Entitic mass] 24.6 pg Low 27.0-31.2 [facility] ([place]) Comment on above: Performed By: #### C WILL MCLAUGHLIN, ANEU #### [address] [address] MCHC (RBC) [Mass/Vol] 31.8 G/dL Low 33.0-37.0 [facility] ([place]) Comment on above: Performed By: #### WILL CARRINGTON, ANEU #### [address] [address] MCV (RBC) [Entitic vol] 77.3 fL Low 80.0-94.0 [facility] ([place]) Comment on above: Performed By: #### WILL CARRINGTON, ANEU #### [address] [address] Platelet mean volume (Bld) [Entitic vol] 7.1 fL Low 7.4-10.4 [facility] ([place]) Comment on above: Performed By: #### WILL CARRINGTON, ANEU #### [address] [address] Platelets (Bld) [#/Vol] 316 10 3/mcL Normal 130-400 [facility] ([place]) Comment on above: Performed By: #### C WILL MCLAUGHLIN, ANEU #### [address] [address] RBC (Bld) [#/Vol] 4.35 10 6/mcL Normal 4.20-5.40 [facility] [place] Comment on above: Performed By: #### WILL CARRINGTON, ANEU #### [address] [address] WBC (Bld) [#/Vol] 4.20 10 3/mcL Low 4.60-10.80 [facility] [place] Comment on above: Performed By: #### C WILL MCLAUGHLIN ANEU #### [place] [address] [address] Vital Signs Date Time Vital Sign Value Performing Clinician Facility 11-16-2023 18:19-0400 Body temperature 97.8 [degF] [facility] 11-16-2023 18:19-0400 Diastolic blood pressure 75 mm[Hg] [facility] 11-16-2023 18:19-0400 Heart rate 81 /min [facility] 11-16-2023 18:19-0400 Respiratory rate 16 /min [facility] 11-16-2023 18:19-0400 SaO2% (BldA) [Mass fraction] 96 % [facility] 11-16-2023 18:19-0400 Systolic blood pressure 117 mm[Hg] [facility] 11-16-2023 13:37-0400 Body height 167.64 cm [facility] 11-16-2023 13:37-0400 Body mass index (BMI) [Ratio] 24.2 kg/m2 [facility] 11-16-2023 13:37-0400 Body weight 68.03 kg [facility] 03-23-2023 21:05-0400 Diastolic blood pressure 87 mm[Hg] No Primary Care Physician [facility] 03-23-2023 21:05-0400 Heart rate 70 /min No Primary Care Physician [facility] 03-23-2023 21:05-0400 Respiratory rate 16 /min No Primary Care Physician [facility] 03-23-2023 21:05-0400 SaO2% (BldA) [Mass fraction] 100 % No Primary Care Physician [facility] 03-23-2023 21:05-0400 Systolic blood pressure 133 mm[Hg] No Primary Care Physician [facility] 03-23-2023 18:25-0400 Body temperature 98.1 [degF] No Primary Care Physician [facility] 03-23-2023 16:26-0400 Body height 167.64 cm No Primary Care Physician [facility] 03-23-2023 16:26-0400 Body mass index (BMI) [Ratio] 26 kg/m2 No Primary Care Physician [facility] 03-23-2023 16:26-0400 Body weight 73.2 kg No Primary Care Physician [facility] 03-09-2023 09:07-0400 Body height 167.6 cm Hilton Johnson MD Work Phone: [facility] 03-09-2023 09:07-0400 Body mass index (BMI) [Ratio] 26.47 kg/m2 Hilton Johnson MD Work Phone: [facility] 03-09-2023 09:07-0400 Body temperature 97.9 [degF] Hilton Johnson MD Work Phone: [facility] 03-09-2023 09:07-0400 Body weight 74.39 kg Hilton Johnson MD Work Phone: [facility] 03-09-2023 09:07-0400 Diastolic blood pressure 66 mm[Hg] Hilton Johnson MD Work Phone: [facility] 03-09-2023 09:07-0400 Heart rate 76 /min Hilton Johnson MD Work Phone: [facility] 03-09-2023 09:07-0400 Systolic blood pressure 116 mm[Hg] Hilton Johnson MD Work Phone: [facility] 02-16-2023 09:23-0400 Body temperature 97.9 [degF] No Primary Care Physician [facility] 02-16-2023 09:23-0400 Diastolic blood pressure 73 mm[Hg] No Primary Care Physician [facility] 02-16-2023 09:23-0400 Heart rate 73 /min No Primary Care Physician [facility] 02-16-2023 09:23-0400 Respiratory rate 16 /min No Primary Care Physician [facility] 02-16-2023 09:23-0400 SaO2% (BldA) [Mass fraction] 100 % No Primary Care Physician [facility] 02-16-2023 09:23-0400 Systolic blood pressure 119 mm[Hg] No Primary Care Physician [facility] 02-16-2023 03:22-0400 Body mass index (BMI) [Ratio] 27.7 kg/m2 No Primary Care Physician [facility] 02-16-2023 03:22-0400 Body weight 77.9 kg No Primary Care Physician [facility] 02-14-2023 10:27-0400 Body height 167.64 cm No Primary Care Physician [facility] 02-13-2023 20:55-0400 Body temperature 96.8 [degF] [facility] 02-13-2023 20:55-0400 Diastolic blood pressure 80 mm[Hg] [facility] 02-13-2023 20:55-0400 Heart rate 82 /min [facility] 02-13-2023 20:55-0400 Respiratory rate 18 /min [facility] 02-13-2023 20:55-0400 SaO2% (BldA) [Mass fraction] 98 % [facility] 02-13-2023 20:55-0400 Systolic blood pressure 122 mm[Hg] [facility] 02-13-2023 19:21-0400 Body height 167.64 cm [facility] 02-13-2023 19:21-0400 Body mass index (BMI) [Ratio] 27.6 kg/m2 [facility] 02-13-2023 19:21-0400 Body weight 77.6 kg [facility] 10-22-2022 13:13-0400 Diastolic blood pressure 84 mm[Hg] [facility] 10-22-2022 13:13-0400 Heart rate 88 /min [facility] 10-22-2022 13:13-0400 Respiratory rate 16 /min [facility] 10-22-2022 13:13-0400 SaO2% (BldA) [Mass fraction] 100 % [facility] 10-22-2022 13:13-0400 Systolic blood pressure 126 mm[Hg] [facility] 10-22-2022 11:50-0400 Body mass index (BMI) [Ratio] 27.4 kg/m2 [facility] 10-22-2022 11:50-0400 Body weight 77.1 kg [facility] 10-22-2022 10:07-0400 Body height 167.64 cm [facility] 10-22-2022 10:07-0400 Body temperature 97.9 [degF] [facility] 10-09-2022 17:22-0500 Body height 167.64 cm [facility] 10-09-2022 17:22-0500 Body mass index (BMI) [Ratio] 28.2 kg/m2 [facility] 10-09-2022 17:22-0500 Body temperature 98.6 [degF] [facility] 10-09-2022 17:22-0500 Body weight 79.37 kg [facility] 10-09-2022 17:22-0500 Diastolic blood pressure 79 mm[Hg] [facility] 10-09-2022 17:22-0500 Heart rate 110 /min [facility] 10-09-2022 17:22-0500 Respiratory rate 18 /min [facility] 10-09-2022 17:22-0500 SaO2% (BldA) [Mass fraction] 99 % [facility] 10-09-2022 17:22-0500 Systolic blood pressure 110 mm[Hg] [facility] 07-07-2022 15:21-0500 Body temperature 98 [degF] [facility] 07-07-2022 15:21-0500 Diastolic blood pressure 87 mm[Hg] [facility] 07-07-2022 15:21-0500 Heart rate 85 /min [facility] 07-07-2022 15:21-0500 Respiratory rate 16 /min [facility] 07-07-2022 15:21-0500 SaO2% (BldA) [Mass fraction] 100 % [facility] 07-07-2022 15:21-0500 Systolic blood pressure 114 mm[Hg] [facility] 07-07-2022 12:17-0500 Body height 167.64 cm [facility] Work Phone: 07-07-2022 12:17-0500 Body mass index (BMI) [Ratio] 28.4 kg/m2 [facility] 07-07-2022 12:17-0500 Body weight 79.83 kg [facility] 01-01-2022 06:00-0400 Body temperature 97.59 [degF] Wayne Benton MD Work Phone: [employer] 01-01-2022 06:00-0400 Diastolic blood pressure 84 mm[Hg] Wayne Benton MD Work Phone: [employer] 01-01-2022 06:00-0400 Heart rate 76 /min Wayne Benton MD Work Phone: [employer] 01-01-2022 06:00-0400 Respiratory rate 18 /min Wayne Benton MD Work Phone: [employer] 01-01-2022 06:00-0400 SaO2% (BldA) [Mass fraction] 100 % Wayne Benton MD Work Phone: [employer] 01-01-2022 06:00-0400 Systolic blood pressure 137 mm[Hg] Wayne Benton MD Work Phone: [employer] 12-30-2021 20:07-0400 Heart rate 95 /min Wayne Benton MD Work Phone: [employer] 12-29-2021 17:59-0400 Body height 167.6 cm Wayne Benton MD Work Phone: [employer] 12-29-2021 17:59-0400 Body mass index (BMI) [Ratio] 31.05 kg/m2 Wayne Benton MD Work Phone: [employer] 12-29-2021 17:59-0400 Body weight 87.27 kg Wayne Benton MD Work Phone: [employer] Encounters Encounter Date Encounter Type Care Provider Facility Start: 06-13-2025 ambulatory No Primary Car e Physician Facility:[facility] Start: 05-31-2025 End: 05-31-2025 ambulatory No Primary Care Physician Facility:[facility] Start: 04-26-2025 ambulatory No Primary Car e Physician Facility:[facility] Start: 04-26-2025 End: 04-26-2025 ambulatory No Primary Care Physician Facility:[facility] Start: 03-27-2025 End: 03-27-2025 ambulatory Stoney Chi Tristan Facility:[facility] Start: 03-05-2025 End: 03-05-2025 ambulatory No Primary Care Physician Facility:[facility] Start: 03-05-2025 End: 03-05-2025 ambulatory Azalea Peggy [employer] Facility:[facility] Start: 01-26-2025 ambulatory Virginie Aguillon [facility] Start: 01-26-2025 End: 01-27-2025 Evaluation and management of inpatient No Primary Care Physician Facility:[facility] Start: 01-25-2025 ambulatory Virginie Aguillon [facility] Start: 12-15-2024 End: 12-15-2024 ambulatory Stoney Chi Tristan Facility:[facility] Start: 10-10-2024 End: 10-10-2024 ambulatory Stoney Chi Tristan Facility:[facility] Start: 08-30-2024 End: 08-30-2024 ambulatory Stoney Chi Tristan Facility:[facility] Start: 08-26-2024 End: 08-26-2024 Emergency department patient visit Stoney Chi Tristan Facility:[facility] Start: 08-22-2024 End: 08-22-2024 ambulatory Stoney Chi Tristan Facility:[facility] Start: 07-20-2024 End: 07-20-2024 ambulatory Stoney Chi Tristan Facility:[facility] Start: 07-19-2024 End: 07-19-2024 ambulatory Stoney Chi Tristan Facility:[facility] Start: 06-08-2024 End: 06-08-2024 ambulatory BUNNY YO MD Facility:[facility] Start: 06-08-2024 End: 06-08-2024 Patient encounter procedure BUNNY YO MD [facility] Start: 02-08-2024 End: 02-18-2024 Refill Hilton Johnson MD Work Phone: [facility] Comment on above: Refill Refill; Reference 99 Start: 01-21-2024 End: 01-21-2024 Telephone encounter To Be Assigned [facility] Physicia n Referral Service Comment on above: Update Start: 01-05-2024 End: 01-06-2024 Refill Hilton Johnson MD Work Phone: [facility] Comment on above: Refill Start: 12-21-2023 End: 12-23-2023 Refill Hilton Johnson MD Work Phone: [facility] Comment on above: Refill Start: 12-01-2023 Emergency department patient visit JEANA QUINTANA Facility:[facility] Start: 11-24-2023 Refill Hilton Johnson MD Work Phone: [facility] Comment on above: Refill Start: 11-16-2023 End: 11-16-2023 Emergency department patient visit [facility]Emergency [facility] Work Phone: Start: 11-12-2023 Letter encounter Patrizia SMALL [facility] Cardiology Start: 10-25-2023 Refill Hilton Johnson MD Other Phone: [facility] Comment on above: Refill Start: 05-28-2023 Telephone encounter Hilton smiley MD Work Phone: [facility] Comment on above: Medical Record Revie w Start: 03-23-2023 End: 03-23-2023 Emergency department patient visit No Primary Care Physician [facility]Emergency [facility] Work Phone: Start: 03-15-2023 Telephone encounter Hilton smiley MD Work Phone: [facility] Comment on above: Med Change Request Start: 03-10-2023 Telephone encounter Hilton smiley MD Work Phone: [facility] Start: 03-09-2023 End: 03-09-2023 Initial preventive medicine new patient 40-64yrs Hilton Johnson MD Work Phone: [facility] Comment on above: Routine adult [...] encounter status Hilton Johnson MD Work Phone: [facility] Start: 03-09-2023 End: 03-09-2023 ambulatory UNKNOWN PROVIDER Facility:[facility] Start: 03-02-2023 Emergency department patient visit Rock Sharpe MD Work Phone: [facility] Emergency Medicine Comment on above: Refill Start: 03-01-2023 Registered Referred No Primary Care Physician [facility]Cardiovascul ar Services Work Phone: Start: 02-24-2023 Telephone encounter Rock anthony MD Work Phone: [facility] Emergency Triage, Treat and Transport Comment on above: Requesting Medicatio ns Start: 02-16-2023 Non-patient / Non-visit No [facility] Physician [facility] Work Phone: Start: 02-15-2023 Non-patient / Non-visit No [facility] Physician [facility] Work Phone: Start: 02-15-2023 Non-patient / Non-visit No [facility] Start: 02-14-2023 Non-patient / Non-visit No [facility] Work Phone: Start: 02-13-2023 End: 02-16-2023 Evaluation and management of inpatient [facility]-Progressive Care Unit Work Phone: Start: 02-13-2023 End: 02-16-2023 observation encounter No Primary Care Physician [facility] Work Phone: Start: 10-22-2022 End: 10-22-2022 Emergency department patient visit [facility]Emergency Department Start: 10-09-2022 End: 10-09-2022 Emergency department patient visit [facility]Emergency Department Start: 07-07-2022 End: 07-07-2022 Emergency department patient visit [facility]Emergency Department Start: 02-26-2022 Telephone encounter To Be Assigned M [facility] Physician Referral Service Comment on above: Left Message To Call Back Start: 12-28-2021 End: 01-01-2022 Evaluation and management of inpatient Wayne Benton MD Work Phone: Inpatient [phone] Comment on above: Gastrointestinal hem orrhage, unspecified gastrointestinal hemorrhage type (Primary Dx); Syncope and collapse; Peptic ulcer; 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-en-Y gastric bypass; Anastomotic ulcer; Chronic iron deficiency anemia Start: 03-05-2021 Patient encounter status [facility] Procedures Date Procedure Procedure Detail Performing Clinician [...] Phone: Start: 01-01-2022 Assay of magnesium Lacey Gibbs DO Work Phone: Start: 12-31-2021 Assay of [...] Start: 05-02-2024 Influenza vaccination Influenza Vaccine (#1) [facility] Start: 03-23-2024 Creatinine measurement Basic Metabolic Panel [facility] Start: 03-09-2024 Creatinine measurement Basic Metabolic Panel [facility] Start: 03-09-2024 Hemoglobin A1c measurement Hemoglobin A1C [facility] Start: 02-24-2024 End: 02-24-2024 Patient encounter procedure 02/24/2024 1:00 PM EDT Office Visit [place] [id number] Randall Hodgson MD [address] [place] [address] [facility] Start: 01-31-2024 Creatinine measurement Basic Metabolic Panel [facility] Start: 11-16-2023 [facility] Start: 07-05-2023 End: 07-05-2023 Patient encounter procedure 07/05/2023 11:00 AM EST Office Visit [place] [id number] Gabriel Ugarte MD [address] [place], [place] [id number] [facility] Start: 05-02-2023 Influenza vaccination Influenza Vaccine (#1) [facility] Start: 05-02-2023 End: 07-10-2023 Lipid 1996 panel - Serum or Plasma FULL LIPID PROFILE Lab Routine Hyperlipidemia, unspecified hyperlipidemia type Expected: 05/02/2023, Expires: 07/10/2023 [facility] Work Phone: Comment on above: Expected: 05/02/2023, Expires: Start: 04-02-2023 COVID-19 Vaccine () COVID-19 Vaccine () [facility] Start: 04-02-2023 Influenza vaccination Influenza Vaccine (#1) [facility] Start: 03-09-2023 End: 03-09-2023 Patient encounter procedure 03/09/2023 9:20 [place] [address] Hilton Johnson MD [address] [place] [address] [facility] Start: 02-16-2023 Patient discharge [facility] Start: 02-14-2023 End: 02-15-2023 [facility] Start: 02-13-2023 Following clinical pathway protocol [facility] Start: 02-13-2023 Assessment of risk of venous thromboembolism [facility] Start: 02-13-2023 Cardiac monitoring [facility] Start: 02-13-2023 Fall prevention [facility] Start: 02-13-2023 Inhalation therapy procedure [facility] Start: 02-13-2023 Insertion of catheter into peripheral vein [facility] Start: 02-13-2023 Introduction of urinary catheter [facility] Start: 02-13-2023 Measuring intake and output [facility] Start: 02-13-2023 Oxygen therapy [facility] Start: 02-13-2023 Providing care according to standard [facility] Start: 02-13-2023 Provision of activity privileges [facility] Start: 02-13-2023 Referral to service [facility] Start: 02-13-2023 Tobacco use cessation education [facility] Start: 02-13-2023 End: 02-13-2023 [facility] Start: 02-13-2023 Verification routine [facility] Start: 02-13-2023 Admission procedure [facility] Start: 02-13-2023 [facility] Start: 02-13-2023 Patient referral to dietitian [facility] Start: 01-01-2023 Basic metabolic 2000 panel - Serum or Plasma Basic Metabolic [facility] Start: 09-16-2022 Shingles (RZV) Vaccine (2 of 2) Shingles (RZV) Vaccine (2 of 2) [facility] Start: 07-07-2022 [facility] Start: 06-22-2022 Hemoglobin A1c [facility] Start: 05-02-2022 Influenza vaccination Influenza Vaccine (#1) [facility] Start: 02-19-2022 End: 02-19-2022 Patient encounter procedure 02/19/2022 Office Visit Gastroenterology Mary Ellen Miller MD [address] [place] [address] [facility] Start: 01-14-2022 End: 01-14-2022 Patient encounter procedure 01/14/2022 Office Visit Internal Medicine Macy Smith DO [address] [place] [address] [facility] [employer] Start: 04-05-2021 COVID-19 Vaccine (3 - Booster for Pfizer series) COVID-19 Vaccine (3 - Booster for Pfizer series) [facility] Start: 12-29-2020 COVID-19 Vaccine (3 - Booster for Pfizer series) COVID-19 Vaccine (3 - Booster for Pfizer series) [facility] Start: 12-29-2020 COVID-19 Vaccine (3 - Pfizer [...] (2 of 2 - [facility] 2-dose series) [facility] Start: 11-02-2018 Cholesterol [Mass/volume] in Serum or Plasma Cholesterol [facility] Start: 07-17-2016 Screening for malignant neoplasm of [...] Pneumococcal vaccination Pneumococcal Vaccine(s) (1 - PCV) [facility] 25 hydroxy includes fractions if performed VITAMIN D, 25-HYDROXY Lab Routine Postoperative malabsorption Ordered: 03/09/2023 [facility] Comment on above: Ordered: 03/09/2023 Amphetamine [Mass/volume] in Urine [facility] Assay of ferritin FERRITIN Lab R outine Postoperative malabsorption Ordered: 03/09/2023 [facility] Work Phone: Comment on above: Ordered: 03/09/2023 Assay of magnesium MAGNESIUM Lab STAT Daily until discontinued starting 12/30/2021, 3 completed [facility] Comment on above: Daily until discontinued starting 2021, 3 completed Basic metabolic 2000 panel - Serum or Plasma BASIC METABOLIC PANEL Lab STAT Daily until discontinued starting 12/30/2021, 3 completed [facility] Work Phone: Comment on above: Daily until discontinued starting 2021, 3 completed Basic metabolic 2000 panel - Serum or Plasma BASIC METABOLIC PANEL Lab Routine Postoperative malabsorption Ordered: 03/09/2023 [facility] Comment on above: Ordered: 03/09/2023 Benzodiazepine measurement, urine [facility] Bilirubin measuremen t, urine [facility] Blood count complete auto&auto difrntl wbc CBC WITH DIFFERENTIAL Lab Only Routine Postoperative malabsorption 03/09/2023 10:26 AM EDT [facility] Cardiac event recording [facility] CBC W Auto Different ial panel - Blood COMPLETE BLOOD COUNT W/DIFF Lab Routine Postoperative malabsorption 03/09/2023 10:26 AM EDT [facility] Cocaine measurement, urine [facility] Cyanocobalamin vitam in b-12 VITAMIN B12 (CYANOCOBALAMIN) Lab Routine Postoperative malabsorption Ordered: 03/09/2023 [facility] Comment on above: Ordered: 03/09/2023 DARK BLUE [...] (BMI) 26.0-26.9, adult 03/09/2023 2:14 PM EDT [facility] Diabetes tracking panel HEMOGLOB IN A1C Lab Routine Prediabetes 03/09/2023 10:26 AM EDT [facility] Ethanol [Mass/volume ] in Serum or Plasma [facility] End: 12-28-2021 EXTRA TUBE EXTRA TUBE Lab Only Routine One time for 1 Occurrences starting 12/28/2021 until 12/28/2021 [facility] [employer] Work Phone: Comment on above: One [...] (BMI) 26.0-26.9, adult 03/09/2023 2:14 PM EDT [facility] Hemoglobin [Presence ] in Urine [facility] Lipid 1996 panel - Serum or Plasma FULL LIPID PROFILE Lab Routine Lipid screening Ordered: 03/09/2023 [facility] Comment on above: Ordered: 03/09/2023 Measurement of 3,4-methylenedioxymetha mphetamine in urine [facility] Measurement of keton es in urine using dipstick [facility] Methadone measuremen t, urine [facility] Microscopic urinalysis [facility] Patient Education [facility] Work Phone: Patient referral [facility] Work Phone: pH of Urine [facility] pH of Urine [facility] Phencyclidine [Presence] in Urine [facility] Specific gravity of Urine [facility] Urinalysis, blood, qualitative [facility] Urine barbiturate measurement [facility] Urine cannabinoid measurement [facility] Urine dipstick for glucose [facility] Urine dipstick for leukocyte esterase [facility] Urine dipstick for nitrite [facility] Urine dipstick for protein [facility] Urine examination [facility] Urine microscopy: epithelial cells [facility] Urine Microscopy: wh ite cells [facility] Urine opiate measurement [facility] Urobilinogen [Presen ce] in Urine [facility] Immunizations Immunization Date Immunization Notes Care Provider Fa carrier clinicty 03-09-2023 Hemoglobin A1C Hilton Cartwright i, MD Work Phone: [facility] 07-22-2022 zoster vaccine recombinant Rock Sharpe MD Work Phone: [facility] 06-22-2021 Hemoglobin A1C Wayne Benton MD Work Phone: [facility] 11-03-2020 Pfizer SARS-COV-2 (COVID-19) vaccine, age 12+ yrs, mRNA, spike protein, LNP, preservative free, 30 mcg/0.3mL dose (APO=557) Wayne Benton MD Work Phone: [facility] 10-12-2020 Pfizer SARS-COV-2 (COVID-19) vaccine, age 12+ yrs, mRNA, spike protein, LNP, preservative free, 30 mcg/0.3mL dose (WWS=333) Wayne Benton MD Work Phone: [facility] 05-16-2019 hepatitis A vaccine, adult dosage Wayne Benton MD Work Phone: [facility] 09-28-2017 tetanus toxoid, reduced diphtheria toxoid, and acellular pertussis vaccine, adsorbed Wayne Benton MD Work Phone: [facility] 07-19-2015 tuberculin skin test ; purified protein derivative solution, intradermal Wayne Benton MD Work Phone: [facility] 04-19-2015 Hemoglobin A1C Hilton Cartwright i, MD Work Phone: [facility] 09-14-2013 influenza, seasonal, injectable Wayne Benton MD Work Phone: [facility] 09-14-2013 influenza virus vaccine, unspecified formulation To Assigned [facility] 11-12-2011 tetanus toxoid, reduced diphtheria toxoid, and acellular pertussis vaccine, adsorbed Wayne Benton MD Work Phone: [facility] 01-24-2003 tuberculin skin test ; purified protein derivative solution, intradermal Hilton Johnson MD Work Phone: [facility] Work Phone: 07-11-2002 influenza virus vaccine, unspecified formulation Hilton Johnson MD Work Phone: [facility] Work Phone: Payers Date Payer Category Payer Unknown [id number] 2024 Self-pay [id number] 2021 Medicare [id number] 2021 Private Health Insurance [id number] 2014 Medicaid [id number] 2014 Medicaid [id number] 2014 Unknown [id number] 1995 Worker's Compensation 1.2.84 [id number] 1960 Unknown [id number] 1960 Unknown [id number] 2..[id number] Medicare [id number] Medicare [id number] Medicare MEDICARE PART A B [id number] Private Health Insurance [facility] [id number] Unknown [id number] Unknown [id number] 2.840.1.955811.3.579.2.462 Unknown [id number] 2.840.1.104744.3.579.2.462 Unknown [id number] 2.840.1.493132.3.579.2.462 Unknown [id number] 2.840.1.799213.3.579.2.462 Unknown [id number] 2.840.1.823016.3.579.2.462 Unknown [id number] 2.840.1.222812.3.579.2.462 Unknown [id number] 2.840.1.878206.3.579.2.462 Unknown [id number] 2.840.1.948617.3.579.2.462 Unknown [id number] 2.840.1.840196.3.579.2.462 Unknown [id number] 2.840.1.727849.3.579.2.462 Unknown [id number] 2.16840.1.450779.3.579.2.462 Unknown [id number] 2.16.840.1.147383.3.579.2.462 Unknown [id number] 2.16.840.1.715456.3.579.2.462 Unknown [id number] 2.16840.1.252438.3.579.2.462 Unknown [id number] 2.16840.1.826311.3.579.2.462 Unknown [id number] 2.16840.1.575270.3.579.2.462 Unknown [id number] 2.840.1.635242.3.579.2.462 Social History Date Type Detail Facility Start: 11-24-2013 Tobacco smoking stat [facility] Occasional tobacco smoker [facility] History of tobacco [...] smoking status NHIS Unknown if ever smoked [facility] Start: 1960 Sex Assigned At Female [facility] Start: 03-09-2023 Gender identity Not on file [facility] Start: 03-09-2023 Tobacco smoking stat [facility] Ex-smoker [facility] History of tobacco use Current smoker [facility] Tobacco smoking status Smokes to bacco daily (finding) [facility] Goals Date Patient Goal Desired Activity /State Personal health goal Functional Status Date Assessment Result Facility 02-16-2023 Functional status [place] [facility] Work Phone: Mental Status Date Assessment Result Facility 11-16-2023 Cognitive function Voice/Name [facility] Work Phone: 02-16-2023 Cognitive function Voice/Name [facility] Work Phone: 02-13-2023 Cognitive function Level Of Cons ciousness Awake;Alert;Appropriate;Follow s Commands [facility] Work Phone: Clinical Notes 12-28-2021 to 01-27-2025 Telephone Encounter - Orin Garcia - 02/18/2024 10:08 AM EDTTelephone Encounter - Orin Garcia - 02/18/2024 10:08 AM EDTTelephone Encounter - Yanelis Guerrero RN - 02/10/2024 3:37 PM EDT Note Date & Type Note Facility 01-27-2025 Note [facility] Medical Records Department [address] [place] [address] Discharge Summary 01/27/25 1151 MR#: [id number] Acct: [id number] Name: MORENA PATTON Rep #: [id number] : 1960 64 From: Lam Espinal MD PCP: Care Physician,No Primary Status:ADM IN Location: [place] [address] Providers Date of Admission: 01/26/25 Date of [...] Carotid Bruits Chest (more content not included)... [facility] 11-21-2024 Note HNO ID: [id number] Author: JESSENIA EVANS RN Service: ? Author [...] Evans RN November 21, 2024 12:03 PM [facility] 11-21-2024 Note Patient Outreach (AM [facility]) MORENA PATTON ([id number]) 1960 F Date Time Provider Department 11/21/24 JESSENIA EVANS AMBG During your visit today, we recorded [...] RN - Fully Assessed Reason for Visit: Glove Former - Other [3607] Prescriptions as of 11/21/2024 - omeprazole (PRILOSEC) [...] Encounter Status:Closed by JESSENIA EVANS on 11/21/24 [facility] 09-04-2024 Note HNO ID: [id number] Author: LISA MOTA MA Service: ? Author Type: Health Tech Type: Progress Notes Filed: 09/04/2024 11:09 Note [...] Mota MA September 04, 2024 11:02 AM [facility] 09-04-2024 Note Patient Outreach (NE TNAV) MORENA PATTON ([id number]) 1960 F Date Time Provider Department 09/04/24 LISA MOTA NETANNMARIEV During your visit today, we recorded the [...] Encounter Status:Closed by LISA MOTA on 09/04/24 [facility] 06-09-2024 Note HNO ID: [id number] Author: RUTH RAYMUNDO MA Service: ? Author Type: Health Tech Type: Progress Notes Filed: 06/09/2024 15:33 Note Text: POPULATION HEALTH NAVIGATION OUTREACH Action/FYI Patient returning my call Medication Adherence Discuss/Due for: Questionable Attribution Routed to moreno team to confirm outside care Outcome: 1st attempt - Spoke to patient Patient hung up the phone prior to discussing Attribution /PCP - called patient back, left a message informing Navigator was not a city attorney Reason for Outreach Med Adherence Patient Contacted: Unable or unnecessary to reach patient: Left message Navigation Signature: Ruth Raymundo MA June 09, 2024 3:30 PM [facility] 06-09-2024 Note HNO ID: [id number] Author: RUTH RAYMUNDO MA Service: ? Author Type: Health Tech Type: Progress Notes Filed: 06/09/2024 14:59 Note Text: POPULATION HEALTH NAVIGATION OUTREACH Action/FYI Medication Adherence Discuss/Due for: Questionable Attribution Routed to moreno team to confirm outside care Outcome: 1st attempt - Left Message 2nd attempt - No MyChart Reason for Outreach Med Adherence Patient Contacted: Unable or unnecessary to reach patient: Left message Navigation Signature: Ruth Raymundo MA June 09, 2024 2:41 PM [facility] 06-09-2024 Note HNO ID: [id number] Author: ?, ?, ? Service: ? Author Type: ? Type: Progress Notes Filed: 06/09/2024 14:59 Note Text: Morena Patton is identified through a medication adherence outreach initiative based on pharmacy claims data from [employer] (insurer) for Statin medication(s). Patient is reviewed [...] team to confirm outside care Talia Fine (Archivist Political History) [facility] 06-09-2024 Note Patient Outreach ([facility]) ALEKMORENA LAKHANI ([id number]) 1960 F Date Time Provider Department 06/09/24 NO PCP PHPOHE During your visit today, we recorded the following information about you: Babatunde (Pillars[employer]LifeTalia Delacruz 06/09/2024 2:59 PM Signed Morena Patton is identified through a medication adherence outreach initiative based on pharmacy claims data from [employer] (insurer) for Statin medication(s). Patient is reviewed [...] team to confirm outside care Talia Fine (Archivist Political History) Ruth Raymundo MA 06/09/2024 2:59 PM Signed [...] a message informing Navigator was not a city attorney Reason for Outreach Med Adherence Patient Contacted: [...] Encounter Status:Closed by RUTH RAYMUNDO on 06/09/24 [facility] 06-08-2024 Note ORIGINAL EXAMINATION: MRI OF [...] Sign Date: 06/08/2024 9:05:45 AM Ordering Provider: [facility] 06-08-2024 Note ORIGINAL EXAMINATION: MRA OF THE [...] Sign Date: 06/08/2024 10:07:33 AM Ordering Provider: [facility] 06-08-2024 Note ORIGINAL EXAMINATION: MRA OF THE HEAD WITHOUT CONTRAST 06/08/2024 9:50 am TECHNIQUE: MRA of the head was performed utilizing eseo-bu-pvhftx imaging with MIP images. No intravenous contrast [...] Sign Date: 06/08/2024 10:06:50 AM Ordering Provider: [facility] 02-28-2024 Note HNO ID: [id number] Author: KERVIN BROWN RN Service: ? Author Type: Registered Nurse Type: Progress Notes Filed: 03/22/2024 18:33 Note Text: [facility] NURSE - CHART REVIEW Provider [facility] Action 03/23/2023 presented to non [facility] ED with complaint of abdominal pain. Documentation of encounter indicates pt reported pain has been present for years. Patient declined participation in further assessment. Pt identified by name and . Reason for Review: Payor request Patient Attributed To: QAE Payer: AEDIAN Chart Review For: Utilization: Avoidable ED Total Patient High CostTotal Patient High Cost {HIGH COST:810583) Quality measure review Payor request for assistance Action Taken: Data submitted to payor Kervin Brown RN February 28, 2024 7:14 AM [facility] 02-28-2024 Note Patient Outreach ([facility] MORENA PATTON ([id number]) 1960 F Date Time Provider Department 02/28/24 KERVIN BROWN [facility] During your visit today, we recorded the following information about you: Kervin Brown RN 03/22/2024 6:33 PM Signed [facility] NURSE - CHART REVIEW Provider [facility] Action 03/23/2023 presented to non [facility] ED with complaint of abdominal pain. Documentation of encounter indicates pt reported pain has been present for years. Patient declined participation in further assessment. Pt identified by name and . Reason for Review: Payor request Patient Attributed To: FEROZ Payer: MIKEY Chart Review For: Utilization: Avoidable ED Total Patient High CostTotal Patient High Cost {HIGH COST:412651) Quality measure review Payor request for assistance Action Taken: Data submitted to payor Kervin Brown RN February 28, 2024 7:14 AM Allergies As of Date: 02/28/2024 Noted Allergy Reaction NSAIDS (NON-STEROIDAL ANTI-INFLAM*11/20/2013 14 - Other: See Comments Comments: Bleeding ulcer Date Reviewed: 12/01/2023 Reviewed by: Gray Heck, CHINEDU - Fully Assessed Prescriptions as of 03/22/2024 [...] Encounter Status:Closed by KERVIN BROWN on 03/22/24 [facility] 02-18-2024 Telephone encounter Note Called patient, 3 identifiers obtained. Patient was unable to talk at this time. Instructed patient to call [employer] [facility] at [phone]. Asked patient to reference #[phone] when calling back to our office. Ok to relay message below from Anamaria Guerrero RN. [employer] 02-18-2024 Miscellaneous Notes Called patient, 3 identifiers obtained. Patient was unable to talk at this time. Instructed patient to call [employer] at [phone]. Asked patient to reference #[phone] when calling back to our office. Ok to relay message below from Anamaria Guerrero RN. Unable to leave a message, voicemail is full. If patient calls back please ask the need for syringes, please encourage patient to keep 02/24/24 appt. Thank you. [facility] this encounter [facility] Telephone encounter Note Unable to leave a message, voicemail is full. If patient calls back please ask the need for syringes, please encourage patient to keep 02/24/24 appt. Thank you. [facility] 01-21-2024 Note Outreach Team ([phone]) Contact Details: Outbound call. Scheduling declined. Care Gaps Scheduling Medicare AWV / PCP Visit: AWV declined Eye Exam: Not due Mammogram: Due; needs order. [employer] 01-21-2024 Telephone encounter Note Outreach Team ([phone]) Contact Details: Outbound call. Scheduling declined. Care Gaps Scheduling Medicare AWV / PCP Visit: AWV declined Eye Exam: Not due Mammogram: Due; needs order. [facility] 01-21-2024 Miscellaneous Notes Outreach Team ([phone]) Contact Details: Outbound call. Scheduling declined. Care Gaps Scheduling Medicare AWV / PCP Visit: AWV declined Eye Exam: Not due Mammogram: Due; needs order. documented in this encounter [facility] 01-06-2024 Telephone encounter Note Images from [...] (Arrive by 12:50 PM) Randall Hodgson MD [facility] 01-06-2024 Miscellaneous Notes Images from the [...] (Arrive by 12:50 PM) Randall Hodgson MD [facility] documented in this encounter [facility] 12-23-2023 Telephone encounter Note OARRS reviewed. This is the last prescription that I will refill on behalf of this patietn [facility] 12-23-2023 Miscellaneous Notes OARRS reviewed. This is the last prescription that I will refill on behalf of this patietn documented in this encounter [facility] 11-16-2023 Discharge summary Note Date/Time November 16, 2023 2:15pm [facility] Medical Records Department [address] [place] [address] Emergency Department Summary 11/16/23 MR#: [id number] Acct: [id number] Name: MORENA PATTON Rep #:[id number] : 1960 63 From: Charly Nichols PCP: [...] approximate 4 months ago was admitted to [facility] for syncope. She had a Holter monitor [...] clinician: N/A This note was generated with [employer] dictation software. It may contain incorrectwords, spelling, [...] 33.4 L Lymph % (Auto) 57.5 H [place] % (Auto) 6.8 Eos % (Auto) 1.7 [...] Referrals: Alyson Gao MD [Med Staff - Museum Or Zoo Director] - 3-5 Days Care Physician,No Primary [Primary [...] your Primary Care Provider. Call [facility] ([phone]) or report to the closest Emergency Room. Call 911 if necessary. 11/16/231811 <Electronically signed by Charly Nichols> Cosigner Signature (if applicable): CC: No Primary Care Physician ~ Signed [facility] Work Phone: [phone]) 231-605010-27-2023 Telephone encounter Note* Telephone Encounter - Nayana Muir - 05/28/2023 2:21 PM EDT Care Gaps Scheduling Health Maintenence Due: Medicare AWV/PCP Visit: deferred Eye Exam: not due Foot Exam: not due Annual Bloodwork: active orders YOKO: not due [id number] Miscellaneous Notes* Telephone Encounter - Nayana Muir - 05/28/2023 2:21 PM EDT Care Gaps Scheduling Health Maintenence Due: Medicare AWV/PCP Visit: deferred Eye Exam: not due Foot Exam: not due Annual Bloodwork: active orders YOKO: not due documented in this [id number] Discharge summary Author Blaise Tom [facility] March 23, 2023 9:12pm Note Date/Time March 23, 2023 5: 11pm [facility] Medical Records Department [address] [place] [address] Emergency Department Summary 03/23/23 MR#: [id number] Acct: [id number] Name: MORENA PATTON Rep #:[id number] : 1960 63 From: Blaise Tom DO [...] open her hand. She apparently was at [facility] and her symptoms worsened. Patient states I cannot take it anymore. States she was recently admitted to the hospital for this and never followed up with anybody as an outpatient. She said her last PCP was at [facility]. Denies fever or chills. Denies constipation [...] Time buprenorphine [From Mel] Allergy Rash Verified 03/23/23 16:26 NSAIDS (Non-Steroidal [...] it got worse when she was at [facility] today and she presents while drinking [...] 37.9 L Lymph % (Auto) 51.0 H Fillmore % (Auto) 8.7 Eos % (Auto) 2.0 [...] Clarity Clear Urine pH 6.0 Ur Specific [place] 1.020 Urine Protein 30 H Urine Glucose [...] Staff - Active Staff] - 3-5 Days FriendSamiDO [Med Staff - Active Staff] - As soon as possible Care Physician,No Primary [Primary Care Provider] - Disposition Disposition: Home, Self Care What to do if you have Problems For any increased pain, shortness of breath, bleeding, nausea or vomiting, chestpain, or any unexpected problems, contact your Primary Care Provider. Call [facility] ([phone]) or report to the closest Emergency Room. Call 911 if necessary. 03/23/232111 <Electronically signed by Blaise Tom DO> Cosigner Signature (if applicable): CC: No Primary Care Physician ~ Signed [facility] Work Phone: 1(789) 738-800308-14-2023 Telephone encounter Note* Telephone Encounter - Sarita Moscoso RN - 03/15/2023 1:13 PM EDT Order pended for provider review & signature. Requested Prescriptions Pending Prescriptions Disp Refills Syringe 23G X 1 3 ML MISC 12 Each 0 Si Syringe once a month. vitamin B-12 (CYANOCOBALAMIN) 1000 MCG/ML injection 12 Each 0 Sig: Inject 1 mL into the muscle once a month. [id number] Miscellaneous Notes* Telephone Encounter - Sarita Moscoso [...] provider's name: Hilton Johnson MD Pharmacy Name: [facility] documented in this [id number] Telephone encounter Note* Telephone Encounter - Heather Mariscal - 03/15/2023 10:53 AM EDT Pharmacy requesting medication substitution. Medication not available to order: Cyanocobalamin 1000 MCG/ML KIT Recommended alternative medications: Pharmacy is requesting two separate prescriptions, one for thevitamin B injection solution and the other for the syringe to inject it. Prescribing provider's name: Hilton Johnson MD Pharmacy Name: [facility] [id number] Telephone encounter Note* Telephone Encounter - Lisa [...] Patient verbalized understanding with no further questions. [id number] Miscellaneous Notes* Telephone Encounter - Lisa Ballesteros [...] of protection against CVD. documented in this [id number] Telephone encounter Note* Telephone Encounter - Hilton Johnson MD - 03/10/2023 7:57 AM EDT Prescribing a statin in response to the elevated cholesterol and total nonHDL cholesterol identified on her lipid panel realizing that the HDL is quite elevated and might indicate some degree of protection against CVD. [id number] Note* Addendum Note - Nichelle Hills - 03/09/2023 2:14 PM EDTAddended by: NICHELLE HILLS on: 03/09/2023 02:14 PM Modules accepted: Orders [id number] Note* Addendum Note - Nichelle Hills - 03/09/2023 2:14 PM EDTAddended by: NICHELLE HILLS on: 03/09/2023 02:14 PM Modules accepted: Orders [id number] Miscellaneous Notes* Addendum Note - Nichelle Hills - 03/09/2023 2:14 PM EDTAddended by: NICHELLE HILLS on: 03/09/2023 02:14 PM Modules accepted: Orders documented in this [id number] History of Present illness Narrative* Orin Garcia - 03/09/2023 10:40 AM EDT Patient identified by name and date of . Blood obtained from arm. * Hilton Johnson MD - 03/09/2023 9:30 AM EDT Date: 03/09/23 Morena Patton 63 year old, female [id number] CHIEF COMPLAINT: Chief Complaint Patient presents with [...] about a week ago. She lives in [place] but came here today because viktoriya really knows me. She ran out of most of her medications and has not been taking them. She passed out last week and picked up some medications at that time. She is now on a heart monitor. She is due to see a accountant cost when she turns in her monitor. She was in the ED on January 30 for abdominal pain. She was discharged on Carafate. She started taking it on 02/24. She was in pain the entire time up until starting to take it. Her pain is now improved but not resolved. She states that she needs to see a campaign specialist and Neurologist and accountant cost. 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 Tobacco Use Smoking status: Former Packs/day: 0.33 [...] Social History Narrative Used to work for [employer] - retired in 1999 due to her [...] presents for a comprehensive physical and to [facility]. Diagnoses and all orders for this visit: [...] - vitamin D2 ergocalciferol (DRISDOL) 1.25 MG (27214 UT) capsule; Take 1 Capsule by mouth [...] during her most recent ED visit to [facility] On . Generalized abdominal pain This was the reason that she presented to the ED at [facility] on Dizziness - CARDIOLOGY SERVICE REQUEST - ECHOCARDIOGRAM, ADULT SERVICE REQUEST Patient states that she is always dizzy and weak and is currently wearing a Holter monitor and was told that she needs to see a Meteorology Instructor to assess her problem. Prediabetes - HEMOGLOBIN [...] at follow up visits. She lives in [place], and I encouraged her to have care established there as she is likely to be admitted to that local hospital if/when she might become acutely ill. She wants to continue care here at [facility] and we will therefore provide herthe referral to Cardiology. She might also benefit from a GI assessment, though I suspect her abdominal pain has multiple possible etiologies behind it (and given that she does not tolerate milk, it could be food intolerance/allergies), perhaps due to adhesions or PUD. Follow up in 3-4 months Hilton Johsnon MD, * Nakita Marrero - 03/09/2023 9:07 AM EDT Identification was verified by patient verbalizing her name and date of . Patient at risk for falls:No Falls Risk protocol implemented: No documented in this [id number] Telephone encounter Note* Telephone Encounter - Janae [...] as well as a plan of action. [id number] Miscellaneous Notes* Telephone Encounter - Janae Hemphill [...] a plan of action. documented in this [id number] Discharge summary Author Virginie Aguillon [facility] February 16, 2023 10:56am Note Date/Time February 16, 2023 10:5 7am [facility] Medical Records Department [address] [place] [address] Instructions for Home/Discharge Instructions 02/16/23 1056 MR#: [id number] Acct: [id number] Name: MORENA PATTON Rep #:[id number] : 1960 63 From: Virginie Aguillon MD [...] Physician,No Primary Consulting Providers: Jeniffer Campos; Drew Soils Instructions Patient Instructions: ED Fall Prevention Additional [...] your pharmacy, this can also be obtained kftf-tqg-rvynagj at a pharmacy as you were low [...] Recorder Preventi (Urgent) Timeframe: 1 Day Facility: [facility] - Location: Cardiovascular Services Ordered By: Dr. [...] MD; No Primary Care Physician ~ Signed [facility] Work Phone: 1(832) 723-500907-17-2023 Progress note Author Virginie Aguillon [facility] February 15, 2023 2:30pm Note Date/Time February 15, 2023 2:30 pm [facility] Medical Records Department [address] [place] [address] Progress Note - Hospitalist 02/15/23 1422 MR#: [id number] Acct: [id number] Name: MORENA PATTON Rep #:[id number] : 1960 63 From: Virginie Aguillon MD PCP: Care Physician,No Primary Status :ADM CYRIL Location: [place] [address] Reason for Visit Reason for Visit: Diagnoses [...] 23.7 L, Lymph % (Auto) 61.1 H, Fillmore % (Auto) 11.0 H, Eos % (Auto) [...] however so came to ED -Was in [facility] twice in January and hat CTA c/abd/pelv [...] documentation, 52minutes Charges/Coding Visit Charges Inpatient E&M: 84515 Subs Hosp L3 02/15/23 1430 <Electronically signed by Virginie Aguillon MD> Cosigner Signature (if applicable): CC: ~ Signed [facility] Work Phone: 1(812) 164-767707-16-2023 Progress note Author Drew Solis [facility] February 14, 2023 9:50am Note Date/Time February 14, 2023 7:38 am [facility] Medical Records Department [address] [place] [address] Progress Note - Hospitalist 02/14/23 0736 MR#: [id number] Acct: [id number] Name: MORENA PATTON Rep #:[id number] : 1960 63 From: Drew Solis MD PCP: Care Physician,No Primary Status :ADM CYRIL Location: [place] [address] Reason for Visit Reason for Visit: Diagnoses Syncope and collapse (07/15/23) Subjective Subjective Patient is a 63-year-old female [...] (Auto) 39.8 L, Lymph % (Auto) 46.3H, Fillmore % (Auto) 10.8 H, Eos % (Auto) [...] 37.1 L, Lymph % (Auto) 47.8 H, Fillmore % (Auto) 12.3 H, Eos % (Auto) [...] hemorrhage or mass effect. Electronically Signed: Rakesh ChadKailey Ruperto, at 20:57 EDT , Chest X-Ray 02/13/23 19:55 IMPRESSION: Stable, nonacute portable x-ray examination of the chest. Electronically Signed: Rakesh StaleyJayme Hickey, at 20:32 EDT , Rhythm Strip Rhythm [...] documentation, 50Minutes Charges/Coding Visit Charges Inpatient E&M: 67686 Subs Hosp L3 02/14/23 0950 <Electronically signed by Drew Solis MD> Cosigner Signature (if applicable): CC: ~ Signed [facility] Work Phone: 1(591) 206-952607-16-2023 History and physical note Author Jeniffer Campos [facility] February 13, 2023 10:41pm Note Date/Time February 13, 2023 8:47 pm [facility] Medical Records Department [address] [place] [address] [place] [address] H&P Exam - Hospitalist 02/13/232044 MR#: [id number] Acct: [id number] Name: MORENA PATTON Rep #:[id number] : 1960 63 From: Jeniffer Campos MD PCP: Care Physician,No Primary Status :ADM CYRIL Location: [address] HPI - General General Date of Admission: [...] no prodrome. She was recently seenin the [employer] system in January twice from records noted [...] am unable tosee these records in the [employer] system. There was recent CTA evaluation/lab work-up [...] (Auto) 39.8 L, Lymph % (Auto) 46.3H, Fillmore % (Auto) 10.8 H, Eos % (Auto) [...] 20:32 EDT Reading Location ID and State: [facility] / [place] , Service support , Assessment & Plan Assessment/Plan (1) Syncope: [...] with history of peptic ulcer disease: Admission dpytozqvte47.2, baseline prior has been 12-13 but there [...] 75 minutes. Charges/Coding Visit Charges Inpatient E&M: 97439 Init Hosp L3 02/13/23 2241 <Electronically signed by Jeniffer Campos MD> Cosigner Signature (if applicable): CC: Dr. Jeniffer Campos MD; No Primary Care Physician~ Signed [facility] Work Phone: 1(254) 657-966307-16-2023 Discharge summary Author Albert Carbone [facility] February 13, 2023 10:07pm Note Date/Time February 13, 2023 7:43 pm [facility] Medical Records Department [address] [place] [address] Emergency Department Summary 02/13/23 MR#: [id number] Acct: [id number] Name: MORENA PATTON Rep #:[id number] : 1960 63 From: Albert Carbone MD PCP: Care Physician,No Primary Status :ADM CYRIL Location: [place] [address] Albert Carbone MD on [...] son is arrived. He said at a [facility] which I believe was [facility] they found that she had valvular heart disease. He thinks that may be the causeof her syncopal episodes. He preferred that she go to [place]. I explained to him that that may not be a possibility tonight. He wants to sign out and take her to [facility] emergency department himself. 02/13/232199<Electronically signed [...] Status Date / Time buprenorphine [From [facility]] Allergy Rash Verified 10/22/22 10:10 NSAIDS (Non-Steroidal [...] girdle intact. Moving all 4 extremities. Normal insurance administrative assistant strength. Normal dorsi plantarflexion. Neurologically. She is [...] 39.8 L Lymph % (Auto) 46.3 H Fillmore % (Auto) 10.8 H Eos % (Auto) [...] 20:32 EDT Reading Location ID and State: [address] [place] [address] , Service support , Chest x-ray, portable, single view showed no acute abnormality. Normal cardiac silhouette. Normal mediastinum. Normal lung ferrer. Rhythm Strip Rhythm Strip: Sinus Rhythm Rate: 78 Ectopy: None EKG Initial EKG: Attestation: I personally reviewed and interpreted this EKG as follows: Interpretation: No Acute Injury Pattern Comments: Normal sinus rhythm rate of 78. No acute signs of MD nor ischemia nor dysrhythmia. Unremarkable EKG. Discharge Plan Dx/Rx/DC Orders Clinical Impression: Closed head injury, Syncope, Fall Disposition Disposition: Acute Care [facility] What to do if you have Problems For any increased pain, shortness of breath, bleeding, nausea or vomiting, chestpain, or any unexpected problems, contact your Primary Care Provider. Call [facility] ([phone]) or report to the closest Emergency Room. Call 911 if necessary. 02/13/232104 <Electronically signed by Albert Carbone MD> Cosigner Signature (if applicable): CC: No Primary Care Physician ~ Signed [facility] Work Phone: [phone]) 889-616307-15-2023 Discharge summary Author Albert Carbone [facility] February 13, 2023 10:07pm Note Date/Time February 13, 2023 7:43 pm [facility] Medical Records Department [address] [place] [address] Emergency Department Summary 02/13/23 MR#: [id number] Acct: [id number] Name: MORENA PATTON Rep #:[id number] : 1960 63 From: Albert Carbone MD PCP: Care Physician,No Primary Status :ADM CYRIL Location: [place] [address] Albert Carbone MD on [...] son is arrived. He [facility] she had valvular heart disease. He thinks that may be the causeof her syncopal episodes. He preferred that she go to [place]. I explained to him that that may not be a possibility tonight. He wants to sign out and take her to [facility] emergency department himself. 02/13/232199<Electronically signed [...] Prior similar symptoms: Yes Recent Illness/Hospitalization: No [facility] Medical History (Updated 02/13/23 @ 20:47 [...] girdle intact. Moving all 4 extremities. Normal insurance administrative assistant strength. Normal dorsi plantarflexion. Neurologically. She is [...] 39.8 L Lymph % (Auto) 46.3 H Fill[place] % (Auto) 10.8 H Eos % (Auto) [...] 20:32 EDT Reading Location ID and State: [facility] / [place] , Service support , Chest x-ray, portable, single view showed no acute abnormality. Normal cardiac silhouette. Normal mediastinum. Normal lung ferrer. Rhythm Strip Rhythm Strip: Sinus Rhythm Rate: 78 Ectopy: None EKG Initial EKG: Attestation: I personally reviewed and interpreted this EKG as follows: Interpretation: No Acute Injury Pattern Comments: Normal sinus rhythm rate of 78. No acute signs of MD nor ischemia nor dysrhythmia. Unremarkable EKG. Discharge Plan Dx/Rx/DC Orders Clinical Impression: Closed head injury, Syncope, Fall Disposition Disposition: Acute Care [facility] What to do if you have Problems For any increased pain, shortness of breath, bleeding, nausea or vomiting, chestpain, or any unexpected problems, contact your Primary Care Provider. Call [facility] ([phone]) or report to the closest Emergency Room. Call 911 if necessary. 02/13/23 3132 <Electronically signed by Albert Carbone MD> Cosigner Signature (if applicable): CC: No Primary Care Physician ~ Signed [facility] Work Phone: [phone]) 842-710603-23-[address] Tom [facility] October 22, 2022 2:51pm Note Date/Time October 22, 2022 10: 39am [facility] Medical Records Department [address] [place] [address] Emergency Department Summary 10/22/22 MR#: [id number] Acct: [id number] Name: MORENA PATTON Rep #:[id number] : 1960 62 From: Blaise Tom DO [...] couple of falls at home this week. [facility] Medical History ADHD (attention deficit hyperactivity disorder) [...] Status Date / Time buprenorphine [From [facility]] Allergy Rash Verified 10/22/22 10:10 NSAIDS (Non-Steroidal [...] 45.8 L Lymph % (Auto) 43.4 H Fillmore % (Auto) 7.5 Eos % (Auto) 2.5 [...] Clarity Clear Urine pH 7.0 Ur Specific [place] 1.015 Urine Protein 30 H Urine Glucose [...] Tom Dx/Rx/DC Orders Prescriptions: No [employer] mariyina PO (DME) syringe with needle 1 mL [...] your Primary Care Provider. Call [facility] ([phone]) or report to the closest Emergency Room. Call 911 if necessary. 10/22/22 1451 <Electronically signed by Blaise Tom DO> Cosigner Signature (if applicable): CC: No Primary Care Physician ~ Signed [facility] Work Phone: [phone]) 214-341603-10-[address] Rutledge [facility] October 09, 2022 5:57pm Note Date/Time October 09, 2022 5:4 1pm [facility] Medical Records Department [address] [place] [address] Emergency Department Summary 10/09/22 MR#: [id number] Acct: [id number] Name: MORENA PATTON Rep #:[id number] : 1960 62 From: Lisa ROY PCP: [...] has been taking Excedrin for the headaches. [facility] <MANUELA Hickman - Last Filed: 10/09/22 17:50> [facility] Medical History ADHD (attention deficit hyperactivity [...] Status Date / Time buprenorphine [From [facility]] Allergy Rash Verified 10/09/22 17:24 NSAIDS (Non-Steroidal [...] <MANUELA Hickman - Last Filed: 10/09/22 17:50> [facility] Narrative Medical decision making [...] CT scan. She was advised to take mrjf-fff-pyxsvxi pain relievers and follow-up with her doctor next week. She was given return precautions and discharged in stable condition. Differential: Concussion, intracranial bleed, skull fracture Test considered but not ordered: Cording to Indonesian CT head rule no indication for head imaging. Prescriptions considered but I think she can take yqvd-wtr-uubykeh Tylenol or Motrin. <Dr. Anthony Rutledge MD - Last Filed: 10/09/22 17:57> [facility] Narrative Medical decision making [...] CT scan. She was advised to take spkm-qjd-jrohbyo pain relievers and follow-up with her doctor next week. She was given return precautions and discharged in stable condition. Differential: Concussion, intracranial bleed, skull fracture Test considered but not ordered: Cording to Indonesian CT head rule no indication for head imaging. Prescriptions considered but I think she can take hevm-dxe-kakmuwh Tylenol or Motrin. I have personally performed [...] neurologic exam Medical Decision Making per the Indonesian CT head rule and [place] rule imaging is not required. Per [employer] [...] your Primary Care Provider. Call [facility] ([phone]) or report to the closest Emergency Room. Call 911 if necessary. 10/09/221749 <Electronically signed by Lisa ROY> Cosigner Signature (if applicable): 10/09/221756 <Electronically signed by Teo WOO> CC: No Primary Care Physician ~ Signed [facility] Work Phone: 1(268) 366-230907-28-2022 Telephone encounter Note* Telephone Encounter - Joey Mcnamara - 02/26/2022 10:10 AM EDT Care Gaps Scheduling Contact Details: Called, left message Health Maintenance Due: Medicare AWV / PCP Visit: Due Eye Exam: Not due Foot Exam: Not due Annual Blood Work: Due Mammogram: Due, but pt has no order in Active Requests FIT: Not due [id number] Miscellaneous Notes* Telephone Encounter - Joey Mcnamara - 02/26/2022 10:10 AM EDT Care Gaps Scheduling Contact Details: Called, left message Health Maintenance Due: Medicare AWV / PCP Visit: Due Eye Exam: Not due Foot Exam: Not due Annual Blood Work: Due Mammogram: Due, but pt has no order in Active Requests FIT: Not due documented in this [id number] Hospital course Narrative* Berkley Jaramillo MD - 01/01/2022 7:31 AM EDT DISCHARGE SUMMARY [address] [address] Morena Patton Date of : 1960 61 [...] Referral Type: Service Level Authorization Referral Location: [facility] Number of Visits Requested: 3 Expiration Date: 12/31/22 Future Appointments Date Time Provider Department Center 01/14/2022 10:45 AM Macy Smith DO [facility] 02/19/2022 10:30 AM Mary Ellen Miller MD [facility] Condition at Discharge Improved Activity No restrictions Diet No restrictions Disposition Home Functional Status Ambulatory Reason for Hospitalization Upper Gastrointestinal Hemorrhage Significant Findings EGD and colonoscopy 12/30/21 IMPRESSION: 1. Two clean based (Potter Class III) ulcers noted at the anastomosis [...] underwent EGD and colonoscopy. Two clean based (Potter Class III) ulcers were noted at the [...] Associated Diagnoses: COPD (chronic obstructive pulmonary disease) ([facility]) ammonium lactate (LAC-HYDRIN) 12 % lotion Apply 80 mL topically 2 times daily. Qty: 500 g, Refills: 3 Associated Diagnoses: Dry skin !! beclomethasone (QVAR) 40 MCG/ACT inhaler Inhale 1 Puff 2 times daily. Qty: 7.3 g, Refills: 3 Associated Diagnoses: COPD (chronic obstructive pulmonary disease) ([facility]) methocarbamol (ROBAXIN-750) 750 MG tablet Take [...] MD Internal Medicine, PGY-1 documented in this [id number] History of Present illness Narrative* Carlos Katz - 12/31/2021 5:03 PM EDT [facility] Spiritual Care Services Services provided for: Patient Services initiated by: Staff Biomedical Manager Reason for services: Initial visit Assessment/Narrative: Patient just lost a first cousin apparently in good health last week Bahai/Spirituality: Non Gnosticism Spiritual Concerns: Grief/Loss Coping: Role of restoration/spirituality Family: Support and Dynamics Interventions: Rapport building and prayer Outcome: Expressed appreciation Plan of Care: On-going Visits Carlos Katz Pager: [phone] Extension: [phone] * Orestes Gaspar MD - 12/31/2021 3:42 [...] Ca Mg PO4 12/31/21 0728 1.9 12/31/21 07 138 3.9 110 20 12 115 3 [...] 98 29 93 % Nasal cannula 5 05/31/22 1052 96/68 -- -- 96 17 93 [...] Hemolysis present 12/28/21 172 23 EGD: Two Potter Class III ulcers at anastomosis site of [...] Concerns No PCP VERIFIED No ADMISSION INSURANCE [employer];Medicare Medicare HMO (comment) Transportation to and/or [...] plans as warranted. Adonay CHOPRA, RN Inpatient [employer] Assistant * Berkley Jaramillo MD - 12/30/2021 7:24 AM EDT Images from the original note were not included. INTERNAL MEDICINE TEAM 9 DAILY PROGRESS NOTE Patient: Morena Patton : 1960 Sex: female Room: [place] [address] Admit Date: 12/28/2021 Today's Date: 12/30/2021 Length [...] of days: 1 CURRENT MEDICATIONS: Scheduled Meds [SEP Hold] albuterol 2.5 mg Q4H RT esomeprazole [...] Morena CHANDRA : 1960 Sex: female Room: [place] [address] Admit Date: 12/28/2021 Today's Date: 12/29/2021 Length [...] Goetz MD Internal Medicine, PGY-1 Personal Pager: [phone] Team 9 Pager: [phone] documented in this [id number] Hospital Discharge instructions* Discharge Instructions* Berkley Jaramillo [...] be in 10 years. documented in this [id number] Note* Care Plan Note - Catalina Hyde [...] adult patient will be met Outcome: Progressing [id number] Miscellaneous Notes* Care Plan Note - Catalina [...] - 12/30/2021 10:03 AM EDT Morena Patton [id number] 12/30/2021 HISTORY & PHYSICAL: Patient's history with [...] Ortiz MD 12/30/21 10:03 AM Morena Patton [id number] 12/30/2021 CELL INSPECTOR: Todd Ortiz MD ATTENDING:Davon Ha MD ([id number]) Procedure(s): ESOPHAGOGASTRODUODENOSCOPY AND COLONOSCOPY INSTRUMENT: Scope #[id number] COLONOSCOPE #3006 SEDATION: Moderate: Oxygen 2L via [...] normal GASTROJEJUNAL ANASTOMOSIS: Two clean based ulcers (Potter Class III) with surrounding erythematous mucosa noted [...] transillumination of right lower quadrant. Prep was [place] Bowel Prep Right Colon: Minor amount of residual staining, small fragments of stool and/or opaque liquid, [place] Bowel Prep Transverse Colon: Entire colon seen well, [place] Bowel Prep Left Colon:Minor amount of residual [...] and collapse (Primary Diagnosis) [780.2.ICD-9-CM] Peptic ulcer [385791] Gastrointestinal hemorrhage, unspecified gastrointestinal hemorrhage type [0405547] 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-en-Y gastric bypass [651740] Anastomotic ulcer [002668] Chronic iron deficiency anemia [3273695] JANIE PATH SPECIMEN SENT: no SPECIMEN: None PHOTOGRAPH TAKEN:yes COMPLICATIONS DURING PROCEDURE: none EBL (estimated blood loss): none IMPRESSION: 1. Two clean based (Potter Class III) ulcers noted at the anastomosis [...] per the GI consult team A/P: Morena PattonNerisRadha is a 61 year old female with [...] Code Dispo: Inpatient Rest of plan per corporate communications intern note. To be discussed with attending physician in the morning. Plan is preliminary until finalized by the attending physician. Luis Daniel Ahumada Internal Medicine, PGY-2 Pager: [phone] documented in this [id number] Note* OP Note - Davon Ha MD - 12/30/2021 10:03 AM EDT Morena Patton [id number] 12/30/2021 HISTORY & PHYSICAL: Patient's history with [...] Ortiz MD 12/30/21 10:03 AM Morena Patton [id number] 12/30/2021 CELL INSPECTOR: Todd Ortiz MD ATTENDING:Davon Ha MD ([id number]) Procedure(s): ESOPHAGOGASTRODUODENOSCOPY AND COLONOSCOPY INSTRUMENT: Scope #[id number] COLONOSCOPE #3006 SEDATION: Moderate: Oxygen 2L via [...] normal GASTROJEJUNAL ANASTOMOSIS: Two clean based ulcers (Potter Class III) with surrounding erythematous mucosa noted [...] transillumination of right lower quadrant. Prep was [place] Bowel Prep Right Colon: Minor amount of residual staining, small fragments of stool and/or opaque liquid, [place] Bowel Prep Transverse Colon: Entire colon seen well, [place] Bowel Prep Left Colon:Minor amount of residual [...] and collapse (Primary Diagnosis) [780.2.ICD-9-CM] Peptic ulcer [509853] Gastrointestinal hemorrhage, unspecified gastrointestinal hemorrhage type [1996359] 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-en-Y gastric bypass [907223] Anastomotic ulcer [157189] Chronic iron deficiency anemia [4292357] JANIE PATH SPECIMEN SENT: no SPECIMEN: None PHOTOGRAPH TAKEN:yes COMPLICATIONS DURING PROCEDURE: none EBL (estimated blood loss): none IMPRESSION: 1. Two clean based (Potter Class III) ulcers noted at the anastomosis [...] Ha MD Department of Gastroenterology & Hepatology [id number] Note* Care Plan Note - Kimi Amezcua [...] adult patient will be met Outcome: Progressing [id number] History and physical note* Orestes Gaspar MD - 12/29/2021 2:16 PM EDT Images from the original note were not included. Attending/Teaching Physician Note: I saw and evaluated Morena PATTONNerisRADHA. I personally obtained the bates and critical [...] 3. Continue usual meds Orestes Gaspar MD [id number] History and physical note* Orestes Gaspar MD [...] Morena Chandra : 1960 Sex: female Room: [place] [address] Admit Date: 12/28/2021 Today's Date: 12/28/2021 Length [...] and doesn't remember anything after that - [place] her face was cold/had cold towels on [...] 1.13 [SP] ED Course User Index [SP] Aby, Dwaine, DO ED Triage Vitals BP Heart [...] Surgical History: Procedure Laterality Date [place] [facility] [place] Lost child COLONOSCOPY 3-03 [...] of drug use. Family History: Cousin had MD Review of patient's family history indicates: Problem: [...] Goetz MD Internal Medicine, PGY-1 Personal Pager: [phone] Team 9 Pager [phone] documented in this [id number] Consult note* Davon Ha MD - 12/29/2021 10:00 AM EDTAssociated Order(s): IP GASTROENTEROLOGY CONSULT Images from the original note were not included. Department of Gastroenterology and Hepatology Consult H&P Note GI Attending Physician: Dr. Davon Ha MD ([id number]) Patient: Morena CHANDRA Location: [facility] Reason for Consult: coffee ground emesis, iron [...] stomach 3. Normal remnant stomach Colonoscopy 2009 [facility] (report not available) Colonoscopy 2002 [...] with GI attending, Dr. Davon Ha MD ([id number]). Primary team updated. Please don't hesitate to reach out with questions or concerns. We will continue to follow with you. Personal Pager [phone] GI Consult Pager (nights and weekends) [phone] Mary Ellen Miller MD Gastroenterology Fellow Division [...] Department of Gastroenterology & Hepatology [facility] Work Phone: 1(266) 953-529505-30-2022 Consult note* Davon Ha MD - 12/29/2021 10:00 AM EDTAssociated Order(s): IP GASTROENTEROLOGY CONSULT Images from the original note were not included. Department of Gastroenterology and Hepatology Consult H&P Note GI Attending Physician: Dr. Davon Ha MD ([id number]) Patient: Morena CHANDRA Location: Reason for Consult: [...] stomach 3. Normal remnant stomach Colonoscopy 2009 [facility] (report not available) Colonoscopy 2002 [...] with GI attending, Dr. Davon Ha MD ([id number]). Primary team updated. Please don't hesitate to reach out with questions or concerns. We will continue to follow with you. Personal Pager [phone] GI Consult Pager (nights and weekends) [phone] Mary Ellen Miller MD Gastroenterology Fellow Division [...] & Hepatology [facility] documented in this [id number] Emergency department Note* Mayra Leong - 12/29/2021 8:15 AM EDT Pts candido fully changed. [id number] Emergency department Note* Mayra Leong - 12/29/2021 8:15 AM EDT Pts liliana and andrew fully changed. * Wayne Benton MD - 12/28/2021 7:46 PM EDT ED Attending Note 61 year old female hx PUD with GIB in 2019 at [employer] today had 1 drink and says family [...] patient is accepted. Harshad Emery DO PGY2 [id number] * Wayne Benton MD - 12/28/2021 5:05 PM EDT EMERGENCY DEPARTMENT - VISIT NOTE HISTORY OF PRESENT ILLNESS Chief Complaint Patient presents with Fainting Per ems, family states patient passed out, +etoh and marijuana HIPAA: Verbal permission granted from patient to discuss case, including protected health information, in front of family / friends in room at the time of the evaluation. Tipple Mechanic: not needed - patient preferred language is Mozambican. The history is provided by the Patient. Morena Chandra is a 61 year old female Cj-en-y Gastric bypass (1999), Reported history of PUD (likely marginal), HTN, Iron Deficiency Anemia, Depression, PTSD, GERD, EtOH abuse, chronic low backpain, and osteoarthritis presenting to the ED for reported syncope. Patient states that she was at a [employer] with her family. She was sitting down [...] Per family, the patient was at the [employer] and had two drinks. In the afternoon, she dropped her cup and fell back. Family saw her fall back in her chair. Said that her eyes were rolling in her head but no significant shaking or seizure like activity, no loss of bladder function. 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 Tobacco Use Smoking status: Current Some Day [...] while in the ED. Plan: Admit to [facility] after labs result. IMPRESSION AND DISPOSITION Clinical [...] given the opportunity to ask questions. Dwaine Badillo DO ED Attending Note see separate progress [...] 202912/28/21 Dr. Wayne Benton documented in this [id number] Note* Care Plan Note - Luis Daniel [...] Code Dispo: Inpatient Rest of plan per corporate communications intern note. To be discussed with attending physician in the morning. Plan is preliminary until finalized by the attending physician. Luis Daniel Ahumada Internal Medicine, PGY-2 Pager: [phone] [employer] Work Phone: 1(724) 282-975005-29-2022 History and physical note* Viviane Goetz MD - 12/28/2021 8:54 PM EDT Images from the original note were not included. INTERNAL MEDICINE TEAM 9 HISTORY AND PHYSICAL Patient: Morena Chandra : 1960 Sex: female Room: [place] [address] Admit Date: 12/28/2021 Today's Date: 12/28/2021 Length [...] and doesn't remember anything after that - [place] her face was cold/had cold towels on [...] Course User Index [SP] Dwaine Badillo DO ED Triage Vitals BP Heart Rate [...] <150CM 05/26/00 Shira LAPAROSCOPY 1979 ovarian cystectomy Social History: Quit smoking 2 [...] of drug use. Family History: Cousin had MD Review of patient's family history indicates: Problem: [...] Goetz MD Internal Medicine, PGY-1 Personal Pager: [phone] Team 9 Pager [phone] [id number] Physician Emergency department Note* Wayne Benton MD - 12/28/2021 7:46 PM EDT ED Attending Note 61 year old female hx PUD with GIB in [place] today had 1 drink and says family [...] to stay in hospital Wayne Benton MD [facility] Work Phone: 1(842) [phone] Physician Emergency department Note* Harshad Emery DO [...] patient is accepted. Harshad Emery DO PGY2 [id number] [employer] Work Phone: 1(279) 379-604805-29-2022 Physician Emergency department Note* Wayne Benton MD [...] room at the time of the evaluation. Tipple Mechanic: not needed - patient preferred language is Mozambican. The history is provided by the Patient. Morena Chandra is a 61 year old female Cj-en-y Gastric bypass (1999), Reported history of PUD (likely marginal), HTN, Iron Deficiency Anemia, Depression, PTSD, GERD, EtOH abuse, chronic low backpain, and osteoarthritis presenting to the ED for reported syncope. Patient states that she was at a [employer] with her family. She was sitting down [...] Per family, the patient was at the [place] and had two drinks. In the afternoon, she dropped her cup and fell back. Family saw her fall back in her chair. Said that her eyes were rolling in her head but no significant shaking or seizure like activity, no loss of bladder function. 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 Plan: Admit to [facility] after labs result. IMPRESSION AND DISPOSITION Clinical [...] given the opportunity to ask questions. Dwaine Badillo DO ED Attending Note see separate progress [...] note No data available for this section [facility] Evaluation note* Diagnosis Gastrointestinal hemorrhage, [...] [facility] Work Phone: Evaluation note* Diagnosis Onset Date Resolution Status Closed head injury acute Fall acute Syncope acute [facility] Work Phone: Evaluation note* Diagnosis Onset Date Resolution Status Anxiety and depression acute Closed head injury acute Fall acute Syncope acute Hypertension chronic Insomnia chronic [facility] Work Phone: Evaluation note* Diagnosis Routine adult [...] Iron deficiency anemia following bariatric surgery resolved [facility] Work Phone: Evaluation note* Diagnosis Anastomotic ulcer [...] myelopathy- Primary documented in this encounter [employer] Work Phone: Hospital Discharge instructions Additional Instructions Take Tylenol 1000 mg every 6 hours as needed and follow-up with your doctor next week if symptoms are persistent.[facility] Work Phone: Hospital Discharge instructions Additional Instructions Patient's evaluation at [facility] was unremarkable. Blood counts are stable. Electrolytes are unremarkable. Potassium is elevated due to hemolysis. Chest x- ray, EKG and CAT scan of the brain were unremarkable. We had planned to admit her for a syncopal event. Family believes that she has a recent work-up done at [facility] that showed valvular heart disease and they would prefer to go there for further evaluation.[facility] Work Phone: Hospital Discharge instructions Additional Instructions Cardiac workup negative. D-dimer negative. Chest x-ray negative. Hemoglobin 11.5. White count 5.3. Creatinine 1.04. Follow-up as an outpatient as given to further testing. If you have recurrent symptoms, return to the ED for reevaluation.[facility] Work Phone: Hospital Discharge instructions No data available for this section [facility] Progress note No data available for this section [facility] Reason for referral (narrative)* Tests/Procedures (Routine) - Pending Review Specialty Diagnoses / Procedures Referred By Contact Referred To Contact Cardiovascular Testing Diagnoses Dizziness Hilton Johnson MD [address] [place] [address] [facility] CARD NON INVASIVE [address] [phone] Referral ID Status Reason Start Date Expiration Date V isits Requested Visits Authorized [id number] Pending Review 03/09/2023 03/09/2024 1 1 Scheduling [...] call the [facility] at [phone] (BEAT) if you are unable to keep [...] menstrual period 08/27/2002. [email or web address] * Service Level Authorization (Routine) - Pending Review Specialty Diagnoses / Procedures Referred By Contac t Referred To Contact Cardiology Diagnoses Dizziness [place] [address] [facility] CARDIOLOG[facility] [address] [place] [address] Referral ID Status Reason Start Date Expiration Date V isits Requested Visits Authorized [id number] Pending Review 03/09/2023 03/09/2024 3 3 Scheduling Instructions Please call the [facility] Center at [phone] to schedule an appointment if one was not made for you today. Question Answer What is the primary reason for consult? Dizziness [10] At what location would you like the patient to be seen? [facility] Summary Purpose Family History No Family [...] Will No July 07 12:21pm Power of Signal Operator No July 07, 2022 12:21pm Advance Directive Response Recorded Date/ Time Advance Directives No March 05 10:27am Living Will No October 09, 2022 5:35pm Power of Signal Operator No October 09 5:35pm Advance Directive Response Recorded Date/ Time Advance Directives No March 05 11:27am Living Will No October 22, 2022 11:50am Power of Signal Operator No October 22 11:50am Advance Directive Response Recorded Date/ Time Advance Directives No March 05 11:27am Living Will No February 13, 2023 7:26pm Power of Signal Operator No February 13 7:26pm Advance Directive Response Recorded Date/ Time Advance Directives No March 05 11:27am Living Will No February 13, 2023 10:30pm Power of Signal Operator No February 13 10:30pm Latest Code Status [...] Will No March 23 4:25pm Power of Signal Operator No March 23, 023 4:25pm Advance Directive Response Recorded Date/ Time Advance Directives No March 05, 021 11:27am Living Will No November 16, 2023 2:13pm Power of Signal Operator No November 15 2:13pm Date Activated Date [...] Chronic iron deficiency anemia Orestes Gaspar MD [address] [place] [address] S GASTROENTEROLOGY [address] [place] [address] Referral ID Status Reason Start Date Expiration Date V isits Requested Visits Authorized [id number] Pending Review 12/31/2021 12/31/2022 3 3 Scheduling [...] Referred To Contact Cardiovascular Testing Emergency Medicine [address] [place] [address] [facility] CARD NON INVASIVE [address] [phone] Referral ID Status Reason Start Date Expiration Date V isits Requested Visits Authorized [id number] Authorized 12/28/2021 12/28/2022 1 1 Scheduling Instructions [...] call the [facility] and V[facility] Center at [phone] (BEAT) if you are unable to keep [...] spondylosis without myelopathy Drew Rosenbaum, DO [address] [place] [address] [facility] [place] [address] Referral ID Status Reason Start Date Expiration Date Visits Requested Visits Authorized [id number] [facility]ized [facility] 01/06/2024 01/05/2025 1 1 Scheduling Instructions You have been referred to the [facility] Center. You will be contacted to schedule your appointment within 24 - 48 hours. If you are not contacted within this time frame please call the Pain and Healing Center at [phone] to schedule your appointment. Question Answer Reason [...] section and content) DATE CREATED AUTHOR 07/08/[address] [facility] ([place]) DATE CREATED AUTHOR AUTHOR'S ORGANIZ ATION 02/21/2024 [employer] DATE CREATED AUTHOR AUTHOR'S ORGANIZ ATION 06/11/2024 [facility] DATE CREATED AUTHOR AUTHOR'S ORGANIZ ATION 11/23/2024 [facility] DATE CREATED AUTHOR AUTHOR'S ORGANIZ ATION 06/14/2025 [facility] Reason for Visit (unrecogniz ed section and content) Reason Comments Fainting Per ems, family stat es patient passed out, +etoh and marijuana Specialty Diagnoses / Procedures Referred By Contac t Referred To Contact Emergency Medicine Diagnoses Peptic ulcer, site unspecified, unspecified as acute or chronic, without hemorrhage or perforation Procedures . [facility] [employer] [facility] [place] [address] Phone: [phone] [employer] [place] [address] Phone: [phone] Referral ID Status Reason Start Date Expiration Date Visits Re quested Visits Authorized [id number] 3 3 Reason Onset Date Comments Left [...] Discontinued 0000 (Automatically Held - Provider: Nano Silver, [...] Discontinued 1745 (Given - Provider: Catalina Hyde RN)2037 (Given - Provider: Clara Lewis RN)2200 (Mistaken Entry - Provider: Clara Lewis RN) 0400 (Hold/Not Given - Provider: Clara Lewis RN - Reason: Patient sleeping)1000 (Hold/Not Given - Provider: Catalina Hyde RN - Reason: Patient refused) esomeprazole (NEXIUM) 40 MG injection 40 mg, Intravenous Push, 2 TIMES DAILY, First dose on Wed12/29/21 at 0900, Until Discontinued 0938 (Given - Provider: Catalina Hyde RN)2127 (Given - Provider: Clara Lewis RN) 0959 [...] (IV New Bag - Provider: Catalina Hyde, CHINEDU - Comment: needed benadryl prior to infusion) [...] at 2030 2037 (Given - Provider: Clara Lewis RN) trazodone (DESYREL) tablet (COMPLETED) 50 mg, Oral, ONCE, 1 dose, On Wed12/31/21 at 0100 0050 (Given - Provider: lCara Lewis RN) PRN Medication Order 12/30/2021 12/31/2021 01/01/2022 acetaminophen (TYLENOL) tablet 500 mg, Oral, EVERY 4 HOURS PRN, Starting on Wed12/28/21 at 2302, Until Discontinued, Mild Pain (pain score 1,2,3), Moderate Pain (pain score 4,5,6), Severe Pain (pain score 7,8,9,10) 1547 (Given - Provider: Catalina Hyde RN) albuterol (PROVENTIL) (2.5 MG/3ML) 0.083% nebulizer solution 2.5 mg, Nebulization, EVERY 4 HOURS PRN, Starting on Wed12/29/21 at 0204, Until Discontinued, Shortness of Breath, or not indicated meperidine (DEMEROL) 50 MG/ML injection (CANCELED) PRN, Starting on Wed12/30/21 at 1021, Until Wed12/30/21 at 1112, Intra-op 1021 (Given - Provider: Angela Carter RN)1023 (Given - Provider: Angela Carter RN)1030 (Given - Provider: Angela Carter RN) midazolam (VERSED) 2 MG/2ML injection (CANCELED) PRN, Starting on Wed12/30/21 at 1021, Until Wed12/30/21 at 1112, Intra-op 1021 (Given - Provider: Angela Carter RN)1023 (Given - Provider: Angela Carter RN)1030 (Given - Provider: Angela Carter RN) Care Teams (unrecognized sec tion and content) Aircraft Engine Specialist Relationship Specialty Start Date End Date Prateek Moscoso LISW [address] [place] [id number] Mergers And Acquisitions Manager Social Work 05/07/20 Aircraft Engine Specialist Relationship Specialty Start Date End Date Prateek Moscoso LISW [address] [address] Mergers And Acquisitions Manager Social Work 05/07/20 Team Status: Active Member Role Status Dates No Primary Care Physician Family Provider Active No Primary Care Physician Primary Care Provider Active Team Status: Inactive Member Role Status Dates Dr. Jose Brodnax , DO Attending Provider, Emergency P rovider Active No Primary Care Physician Primary Care [...] Primary Care Provider Active Dr. Blaise Tom , Emergency Provider Active Team Status: Inactive Member Role Status Dates No Primary Care Physician Primary Care Provider Active Dr. Blaise Tom , DO Attending Provider, Emergency Provider Active Team [...] Dr. Drew Solis MD Other Provider Active Aircraft Engine Specialist Relationship Specialty Start Date End Date Prateek Moscoso LISW [address] [place] [address] Mergers And Acquisitions Manager Social Work 05/07/20 Aircraft Engine Specialist Relationship Specialty Start Date End Date Prateek Moscoso LISW [address] [place] [address] Mergers And Acquisitions Manager Social Work 05/07/20 Aircraft Engine Specialist Relationship Specialty Start Date End Date Prateek Moscoso LISW [address] [place] [address] Mergers And Acquisitions Manager Social Work 05/07/20 Aircraft Engine Specialist Relationship Specialty Start Date End Date Prateek Moscoso LISW [address] [place] [address] Mergers And Acquisitions Manager Social Work 05/07/20 Aircraft Engine Specialist Relationship Specialty Start Date End Date Hilton Johnson MD [address] [place] [address] PCP - General Family Medicine 03/15/23 Prateek Moscoso LISW [address] [place] [address] Mergers And Acquisitions Manager Social Work 05/07/20 Team Status: Active Member Role Status Dates No Primary Care Physician Primary Care Provider Active Dr. Virginie Aguillon MD Attending Provider, Referring Pr ovider Active Aircraft Engine Specialist Relationship Specialty Start Date End Date Hilton Johnson MD [address] [place] [address] PCP - General Family Medicine 03/15/23 Prateek Moscoso LISW [address] [place] [address] Mergers And Acquisitions Manager Social Work 05/07/20 Aircraft Engine Specialist Relationship Specialty Start Date End Date Hilton Johnson MD [address] [place] [address] PCP - General Family Medicine 03/15/23 Prateek Moscoso LISW [address] [place] [address] Mergers And Acquisitions Manager Social Work 05/07/20 Team Status: Inactive Member Role Status Dates No Primary Care Physician Primary Care Provider Active Dr. Charly Almonte DO Emergency Provider Active Aircraft Engine Specialist Relationship Specialty Start Date End Date Hilton Johnson MD [address] [place] [address] PCP - General Family Medicine 03/15/23 Prateek Moscoso LSW [address] [place], [place] [id number] Mergers And Acquisitions Manager Social Work 05/07/20 Aircraft Engine Specialist Relationship Specialty Start Date End Date Hilton Johnson MD [address] [place] [id number] PCP - General Family Medicine 03/15/23 Prateek Moscoso LSW [id number] [place], [place] [id number] Mergers And Acquisitions Manager Social Work 05/07/20 Aircraft Engine Specialist Relationship Specialty Start Date End Date Hilton Johnson MD [address] [place] [id number] PCP - General Family Medicine 03/15/23 Prateek Moscoso LSW [address] [place] [address] Mergers And Acquisitions Manager Social Work 05/07/20 Aircraft Engine Specialist Relationship Specialty Start Date End Date Hilton Johnson MD [address] [place] [id number] PCP - General Family Medicine 03/15/23 Prateek Moscoso LSW [address] [place] [address] Mergers And Acquisitions Manager Social Work 05/07/20 Goals (unrecognized section and [...] BE BASED ON THE PRIMARY CLINICAL RECORDS. [employer] [facility]. provides no warranty or guarantee of the accuracy or completeness of information in this document.
[2025-07-08 17:21] LABS: Hematocrit 22.4 % (37-47); Hemoglobin 6.6 g/dL (12.0-15.0); Immature Granulocytes Count 0.030 X10^3/uL (0.0-0.0); Mean Corp Hgb Conc 29.5 g/dL (32-36); Mean Corpuscular Volume 70.0 fL (81-99); Mean Platelet Vol. 9.2 fl (6.2-12.0); NRBC Flagged by Analyzer 0.7 % (0-5); Platelet Count 357 K/mm3 (150-450); RBC Distribution Width CV 19.4 % (11.6-14.6); RBC Distribution Width SD 46.5 fl (35.1-43.9); Red Blood Count 3.20 M/mm3 (4.2-5.4); White Blood Count 7.1 K/mm3 (4.4-11.0)
[2025-07-08] MEDS: 0.9% Normal Saline (1000mL) 1,000 ML 1000 ML IV (17:40)
[2025-07-08 17:42] LABS: Lipase 35 U/L (13-75)
[2025-07-08 17:45] LABS: Alcohol, Blood (Medical)-Serum < 10.1 mg/dL (<=10.0)
[2025-07-08 17:51] LABS: AST(SGOT) 17 U/L (<=31); Alanine Aminotransfer ALT/SGPT 10 U/L (<=34); Albumin, Serum 3.9 g/dL (3.4-4.8); Alkaline Phosphatase 66 U/L (35-104); Anion Gap 12 (5-15); BUN 19 mg/dL (4-19); BUN/Creat Ratio 17.5 RATIO (10-20); Calcium,Total 9.8 mg/dL (7.6-11.0); Carbon Dioxide 21.0 mmol/L (21.0-32.0); Chloride 102 mmol/L (98-108); Estimated Creatinine Clearance 48.62 ml/min (50-250); Globulin 2.6 g/dL (2.2-4.2); Glucose 118 mg/dL (70-99); Potassium 3.8 mmol/L (3.3-5.1)
[2025-07-08 18:08] LABS: Troponin T High Sensitivity 13 ng/L (<=14)
--- NOTE | 2025-07-08 18:42 | CT_ITS ---
PROCEDURE: ABDOMEN/PELVIS W IV CONT ONLY 07/08/2025 REASON FOR EXAM: ABDOMINAL PAIN TECHNIQUE: Procedure Code: [id number] Modality: CT Procedure: ABDOMEN/PELVIS W IV CONT ONLY Coronal and Sagittal reconstruction series were provided. CONTRAST: Isovue 370 VOLUME: 100 mL One or more dose reduction techniques were used (e.g., Automated exposure control, adjustment of the mA and/or kV according to patient size, use of iterative reconstruction technique. RADIATION DOSE SUMMARY: CTDlvol: 28.99 mGy DLP: 609.24 mGycm COMPARISON: 01/25/2025 CT abdomen pelvis FINDINGS: Lung bases: Unremarkable. Liver: Normal size. No mass. Hepatic steatosis. Gallbladder: Normal. Spleen: Normal size. Pancreas: Normal size without evidence of mass surrounding inflammation or ductal dilation. Adrenals: Normal. Kidneys: Normal renal sizes. No hydronephrosis. Bladder: Normal. Reproductive Organs: Normal uterine size and contour. Ovaries are unremarkable. Bowel: No bowel obstruction. Postsurgical changes of Dillon-en-Y bypass. Appendix: The appendix is not identified. There is no inflammatory process identified in the right lower quadrant to suggest appendicitis. Lymph nodes: Unremarkable. Vasculature: The abdominal aorta and IVC are normal. Peritoneum / Retroperitoneum: No free fluid or free air. Bones: No acute osseous abnormality. CT/Abdomen/Pelvis W IV Cont ONLY IMPRESSION: No acute intra-abdominal abnormality. Hepatic steatosis. Reading Location: [facility]
[2025-07-08 19:24] LABS: Troponin T High Sens 2 HR 11 ng/L (<=14)
--- NOTE | 2025-07-08 20:02 | PCM.HP.STD ---
HPI - General General Date of Admission: 07/08/25 Date of Service: 07/08/25 Chief Complaint: Syncope, left upper quadrant abdominal pain black tarry stool. HPI Narrative NORY GASTON, is a 65 F was brought to ED by EMS after she fainted/passed out. She is shown recovered laying on the floor in the hallway near the bathroom. As per the patient, she was feeling dizzy and lightheaded for last 3 days and while trying to go to her room her dizziness worsened and then she fell down on the carpet and passed out in the bathroom. Her grandson, her caregiver came to help. She has a history of chronic iron-deficiency anemia and gets iron infusion weekly. She complained of left upper quadrant abdominal pain for 2 to 3 weeks but got worsened in the last 2 days, sharp stabbing in quality, 10/10 intensity with radiation to left shoulder. She further said that she has loss of appetite and not eating much. She had gastric bypass surgery about 25 years ago. EMS vitals shows her BP was low 96/60, 88/60, RR 25/min, heart rate 90/min. In ED also her BP was low 96/61, heart rate 88 but improved to 123/76 after resuscitation. She also had vomiting yesterday and has not see the content of vomiting. She had 1-2 times black tarry stool in the last few days. No fever or vertigo-like symptoms. History of chronic alcohol use In ED and hemoglobin and hematocrit was found 6.6/22.4% and 1 unit of PRBC ordered and further admitted. COUNT INCLUDES THE [facility] Medical History Abdominal pain Iron deficiency anemia due to chronic blood loss Depression Anxiety Smoker Migraines TIA (transient ischemic attack) Chronic kidney disease (CKD), stage III (moderate) Vitamin D deficiency Hyperlipidemia GERD (gastroesophageal reflux disease) PTSD (post-traumatic stress disorder) Tobacco use ETOH abuse Iron (Fe) deficiency anemia History of GI bleed Chest pain Iron deficiency Insomnia Anxiety and depression Obesity (BMI 30-39.9) TMJ (temporomandibular joint syndrome) Chronic pain Hypertension ADHD (attention deficit hyperactivity disorder) Postsurgical malabsorption, not elsewhere classified B12 deficiency Anemia PUD (peptic ulcer disease) Home Medications ?Medication ?Instructions ?Recorded ?Last Taken ?Type rollator walker with seat #1 ea 10/09/20 Unknown Rx syringe with needle 1 mL 25 gauge #100 ea 03/05/21 Unknown History x 1 valacyclovir 500 mg tablet 500 mg PO DAILY Herpes Flare #90 10/28/21 01/23/25 Rx (Valtrex) tabs cyclobenzaprine 10 mg tablet 10 mg PO TID 07/24/24 07/08/25 History albuterol sulfate 90 mcg/actuation 2 puff inhalation Q4H PRN SOB, 01/25/25 01/23/25 History aerosol inhaler wheezing ferrous gluconate 324 mg (38 mg 324 mg PO DAILY 03/27/25 Unknown History iron) tablet escitalopram oxalate 10 mg tablet 10 mg PO QDAY #30 tabs 05/31/25 Unknown Rx dicyclomine 10 mg capsule 10 mg PO BID #30 caps 06/21/25 07/08/25 Rx cholecalciferol (vitamin D3) 25 25 mcg PO DAILY 07/08/25 Unknown History mcg (1,000 unit) tablet dextroamphetamine-amphetamine ER 5 1 cap PO DAILY 07/08/25 Unknown History mg 24hr capsule,extend release omeprazole 20 mg tablet,delayed 20 mg PO DAILY PRN GERD 07/08/25 07/08/25 History release Allergy/AdvReac Type Severity Reaction Status Date / Time buprenorphine (From [facility]) Allergy Rash Verified 07/08/25 16:35 NSAIDS (Non-Steroidal AdvReac Nausea Verified 07/08/25 16:35 Anti-Inflamma Family History Father Myocardial infarction Alcohol abuse Heart disease CAD (coronary artery disease) Mother CVA (cerebral vascular accident) Hypertension Thrombosis Alcohol abuse Sister Lupus Surgical History History of cataract surgery Status post gastric bypass for obesity Hx of bariatric surgery S/P H/O gastric bypass (~1999) Social History household members: other details: grandson housing: house current occupational status: retired and disabled history of recent travel: No sexually active: No Smoking Status: Former smoker Smokeless tobacco user: other alcohol intake: current alcohol intake frequency: 3 or more drinks per day details: Patient reports history of at 2-tall boys daily at least. substance use type: marijuana what type of physical activity do you participate in: none and walking seatbelt use: always do you feel safe at home: Yes additional social history: single ROS ROS Narrative Constitutional: Reports fatigue and weakness. No fever. Fatigue. HEENT: Reports systems reviewed and no addt'l complaints, except as documented Respiratory/Chest: No acute shortness of breath or respiratory distress or wheezing. CVS: No chest pain or tightness Gastrointestinal: As described in HPI history of gastric bypass surgery. Genitourinary: Denies burning urination or new urinary tract symptoms Musculoskeletal: Denies acute joint pain or limited range of motion. No acute injury Neurologic: Denies seizure-like symptoms. skin: No ulcer. No rash Endocrinology: Reports systems reviewed and no addt'l complaints, except as documented Hematologic/Lymphatic: Reports systems reviewed and no addt'l complaints, except as documented Rest 14 ROS are negative except as mentioned in HPI Vital Signs Vital Signs Vital Signs: 07/08/25 16:29 07/08/25 16:35 07/08/25 17:41 Temperature 98.1 F Temperature Source Oral Pulse Rate 88 91 Respiratory Rate 20 H 24 H Respiratory Effort Normal Non-Labored Respiratory Pattern Normal Blood Pressure 96/61 127/76 H Blood Pressure Mean 72 93 Blood Pressure Source Blood Pressure Position Blood Pressure Location Pulse Ox 100 100 Oxygen Delivery Method Room Air Room Air 07/08/25 18:21 07/08/25 18:56 07/08/25 19:51 Temperature 98 F 98 F Temperature Source Oral Oral Pulse Rate 89 87 88 Respiratory Rate 18 16 18 Respiratory Effort Respiratory Pattern Blood Pressure 127/84 H 127/84 H 123/76 H Blood Pressure Mean 98 98 91 Blood Pressure Source Monitor Blood Pressure Position Semi-Fowlers Blood Pressure Location Left Arm Pulse Ox 100 100 100 Oxygen Delivery Method Room Air Room Air Room Air 07/08/25 19:57 Temperature 98 F Temperature Source Pulse Rate 88 Respiratory Rate 18 Respiratory Effort Respiratory Pattern Blood Pressure 123/76 H Blood Pressure Mean 91 Blood Pressure Source Blood Pressure Position Blood Pressure Location Pulse Ox 100 Oxygen Delivery Method Weight Weight: 147 lb 14.883 oz Body Mass Index (BMI) 23.8 Physical Exam Narrative General: Alert, Oriented x3, Cooperative. BMI 23.9 kg/m? HEENT: Atraumatic, PERRLA, EOMI, Normocephalic. Oral: Edentulous. No Gingival or Mucosal Lesions/ Ulcerations Neck: Supple, No JVD, Negative Carotid Bruits Chest wall/Lungs: Air entry diminished in bilateral lung bases. No crepitation/rhonchi Cardiovascular: Regular rate and rhythm, Normal S1,S2, loud S2, early diastolic murmur/systolic murmur over right second/LUSB Abdomen: Bowel Sounds Present, Soft, tenderness present over left upper quadrant/left subcostal region. Nondistended. : No dysuria. No renal angle tenderness. No suprapubic tenderness. Extremities: No edema, Capillary Refill Less than 3 Seconds Skin: No rashes, No breakdown Musculoskeletal: No Tenderness to Palpation of Joints or Extremities Neurological: Cranial nerves II-XII grossly intact, DTR 2+/4. No acute focal neurological deficit. Psych/Mental Status: Flat affect. Mild anxiety Results Lab / Micro Data 07/08/25 17:14 07/08/25 17:14 Labs: Laboratory Results - last 24 hr 07/08/25 17:14: WBC 7.1, RBC 3.20 L, Hgb 6.6 L, Hct 22.4 L, MCV 70.0 L, MCH 20.6 L, MCHC 29.5 L, RDW Std Deviation 46.5 H, RDW Coeff of [place]elia 19.4 H, Plt Count 357, MPV 9.2, Immature Gran % (Auto) 0.400, Neut % (Auto) 56.5, Lymph % (Auto) 33.6, [place] % (Auto) 7.6, Eos % (Auto) 1.6, Baso % (Auto) 0.3, Absolute Neuts (auto) 4.0, Absolute Lymphs (auto) 2.38, Nucleated RBC % 0.7, Sodium 135, Potassium 3.8, Chloride 102, Carbon Dioxide 21.0, Anion Gap 12, BUN 19, Creatinine 1.08, Estim Creat Clear Calc 48.62 L, Est GFR (MDRD) Non-Af 57 L, BUN/Creatinine Ratio 17.5, Glucose 118 H, Calcium 9.8, Total Bilirubin 0.24, AST 17, ALT 10, Alkaline Phosphatase 66, Troponin T High Sens 13, Total Protein 6.5, Albumin 3.9, Globulin 2.6, Albumin/Globulin Ratio 1.5, Lipase 35, Ethyl Alcohol < 10.1 07/08/25 18:15: Blood Type A POSITIVE, Antibody Screen NEGATIVE, Crossmatch See Detail 07/08/25 19:01: Troponin T Hi Sens 2 Hr 11 Micro: Microbiology 07/08/25 17:45 Stool Stool Occult Blood (YULISSA) - Final Occult Blood Positive Imaging Radiology Impression Chest X-Ray 07/08/25 16:41 IMPRESSION: No Acute Findings. Reading Location: [facility] Abdomen/Pelvis CT 07/08/25 18:42 IMPRESSION: No acute intra-abdominal abnormality. Hepatic steatosis. Reading Location: [facility] Assessment & Plan Assessment/Plan (1) GI bleed: (2) Anemia: (3) Syncope: PLAN: Plan This is a 65-year-old female being admitted for syncope secondary to severe anemia from upper GI bleed 1. Syncope probably secondary to severe anemia: Patient is being admitted in PCU. She passed out and fell down but recovered quickly. IV fluid resuscitation. Most recent BP 98/82, heart rate 83/min no hypoxia. 2. Acute severe anemia on chronic iron Significant most likely due to upper GI bleed: H&H 6.6/22.4%. Platelet count 357K. MCV, MCH and MCHC all low with RDW 19.4 high suggestive of chronic iron deficiency anemia probably due to GI bleed. History of gastric bypass surgery. GI consulted. IV PPI every 12 hourly. Clear liquid diet with plan for EGD tomorrow 3. Left upper quadrant abdominal pain: CT abdomen/pelvis showed no acute finding but chronic hepatic steatosis and postsurgical changes of Dillon-en-Y gastric bypass. She was also last admitted in December 2024 for abdominal pain due to GI bleed, similar condition 4. Chronic alcohol use disorder: Patient drinks alcohol about 2-3 tall boys. Monitor CIWA for first 24 hours 5. Anxiety, depression/PTSD: Home medications continued 6. Hypertension, currently blood pressure in the low/mild hypotension: Hold antihypertensive medication 7. Chronic HFpEF: Echo in 1925 shows EF 5%, stage I diastolic dysfunction. Mild TR, trivial eccentric MR. Mild AI. 8. DVT prophylaxis: Pharmacological prophylaxis contraindicated. Bilateral SCDs. Living will/advanced directive/end of life care: Patient does not have living will or advanced directive. She does not have power of deputy prosecuting attorney for health. Her grandson is next of kin after discussion of benefits/risks procedures involved with full code, DNR CC arrest and DNR CC, the patient opted for full code. Patient does want artificial life support including intubation, tube feed, ventilator and/chest compression, central venous catheter, vasopressor and DC shock if needed Total time spent in [id number] encounter in discussion of advanced directive 17 minutes. Clinical Impression(s) from Imaging Studies Chest X-Ray 07/08/25 16:41 IMPRESSION: No Acute Findings. Reading Location: [facility] Abdomen/Pelvis CT 07/08/25 18:42 IMPRESSION: No acute intra-abdominal abnormality. Hepatic steatosis. Reading Location: [facility] 07/08/25 17:45 Stool Stool Occult Blood (YULISSA) - Final Occult Blood Positive Laboratory Results 07/08/25 17:14: WBC 7.1, RBC 3.20 L, Hgb 6.6 L, Hct 22.4 L, MCV 70.0 L, MCH 20.6 L, MCHC 29.5 L, RDW Std Deviation 46.5 H, RDW Coeff of [place] 19.4 H, Plt Count 357, MPV 9.2, Immature Gran % (Auto) 0.400, Neut % (Auto) 56.5, Lymph % (Auto) 33.6, [place] % (Auto) 7.6, Eos % (Auto) 1.6, Baso % (Auto) 0.3, Absolute Neuts (auto) 4.0, Absolute Lymphs (auto) 2.38, Nucleated RBC % 0.7, Sodium 135, Potassium 3.8, Chloride 102, Carbon Dioxide 21.0, Anion Gap 12, BUN 19, Creatinine 1.08, Estim Creat Clear Calc 48.62 L, Est GFR (MDRD) Non-Af 57 L, BUN/Creatinine Ratio 17.5, Glucose 118 H, Calcium 9.8, Total Bilirubin 0.24, AST 17, ALT 10, Alkaline Phosphatase 66, Troponin T High Sens 13, Total Protein 6.5, Albumin 3.9, Globulin 2.6, Albumin/Globulin Ratio 1.5, Lipase 35, Ethyl Alcohol < 10.1 07/08/25 18:15: Blood Type A POSITIVE, Antibody Screen NEGATIVE, Crossmatch See Detail 07/08/25 19:01: Troponin T Hi Sens 2 Hr 11
--- NOTE | 2025-07-08 20:24 | CM.ED ---
Social Work Date of referral: 07/08/25 Reason for referral: No Primary Care Physician (PCP) on file Referred by: Social Work Identification Patient provided consent to social work visit. Patient stated she just changed PCP's and has her first scheduled appointment with Dr. Hall in August. Automotive Service Writer was not able to find this provider so it is uncertain at this time who PCP is. Patient requested lights be turned off so she could sleep so social media job titles left at that time without additional inquiry. Ruth oCnteh, PEST CONTROL SERVICE REPRESENTATIVE, STEEL RULE DIE MAKER APPRENTICE
--- OUTSIDE RECORDS SUMMARY | 2025-07-08 20:37 | XMS RPT_ITS | CCD ---
Author Organization [facility] ion [facility] Care Team Providers Care Assistant Director Of Financial Aid Name Role Phone Prateek Lockhart Unavailable Care Physician, No Primary Primary Care Provider Unavailable Dr. Albert Carbone Emergency Provider Dr. Jeniffer Campos Admit Provider [phone] Jeniffer Campos Other Provider Dr. Drew Solis Attending Provider Unavailable Dr. Drew Solis Other Provider Unavailable Dr. Margarette Christensen Attending Provider Dr. Virginie Aguillon Attending Provider [phone] Dr. Virginie Aguillon Other Provider Prateek [...] ilable Angie Judd Attending Unavail able Peggy MANAGER BUSINESS PLANNING, [place]a Attending Unavailable Care Physician, No Primary Primary Care Unava ilable Peggy MANAGER BUSINESS PLANNING, [place]alea Referring Unavailable Virginie Aguillon Consulting Unavailable Virginie Aguillon Admitting Unavailable Care Physician, No Primary Primary Care Unava ilable Lam Espinal Attending Unavailable Gila Reeves Referring Unavailable Lam Espinal Consulting Unavailable Care Physician, No Primary Primary Care Unava ilable Machelle Muñoz Attending Unavailable Tristan, Stoney Chi Primary Care Unavailable Tristan, Stoney Chi Referring Unavailable Lindsay, Goshen Attending Unavailable Tristan, Stoney Chi Primary Care [...] ilable Angie Judd Consulting Unavail able Lindsay, [place] Referring Unavailable Lindsay, Ta Attending Unavailable Tristan, [...] to adverse reactions to drug 4 Nausea [facility] Work Phone: (8 sources) Buprenorphine; Translations: [buprenorphine] Drug Allergy 2 Rash [facility] (7 sources) Nonsteroidal Anti-inflammatory Compounds Propensity to adverse reactions 2 Nausea [facility] (1 source) Iron and iron compound; Translations: [iron containing compounds] Drug allergy [facility] (1 source) NSAIDs; Translations: [NSAIDS (NON-STEROIDAL ANTI-INFLAMMATORY DRUG)] Propensity to adverse reactions to drug (disorder) 4 [facility] (1 source) Buprenorphine Drug Allergy 5 [facility] (1 source) NSAIDs Drug allergy (disorder) 5 [facility] Repository Medications Current Medications Medication [...] week vitamin D2 ergocalciferol (DRISDOL) 1.25 MG (15234 UT) capsule Take 1 Capsule by mouth once weekly. 12 Capsule 3 03/09/2023 03/08/2024 Active Start: 11-26-2021 take 95801 [IU] by m outh every other week Ergocalciferol (Vitamin D2) Active 04440 UNIT PO every 2 weeks November 26, 2021 4:30pm Start: 11-26-2021 End: 11-26-2021 take 36134 [IU] by mouth every week Ergocalciferol (Vitamin D2) Discontinued 24486 UNIT PO EVERY WEEK 12 90 November 26, 2021 2:13pm November 26, 2021 4:30pm Start: 06-06-2020 End: 11-26-2021 take 40482 [IU] by mouth two times weekly Ergocalciferol (Vitamin D2) Discontinued 24367 UNIT PO TWICE A WEEK 60 90 June 10, 2021 6:28pm November 26, 2021 2:13pm Start: 07-12-2019 End: 06-06-2020 take 30316 [IU] by mouth every week Ergocalciferol (Vitamin D2) Discontinued 31535 UNIT PO Q7D July 12, 2019 1:00am [...] by mouth every six hours Hydrocodone-Acetami nophen (Charenton) 7.5-325 mg tablet Discontinued 1 TABLET PO EVERY 6 HOURS June 05, 2020 9:34am August 01, 2020 3:19pm Dr Ortega Start: 05-14-2018 Charenton 325- 7.5 mg oral tablet 325-7.5, Oral, [...] September 25, 2020 12:44pm polyethylene glycol 3350 44782 mg powder for oral solution (1 source) [...] Interpretation Reference Range Facility MR/BMS.BPon 05-31-2025 MR/BMS.BP [facility] [address], [address] [place] [address] OFFICE VISIT Date of Service: 05/31/25 MR#: [id number] Acct: [id number] Name: MORENA PATTON Rep #: [id number] : 1960 Provider: KATIE dewey Age/Sex: 65/F Location[place] [facility] [place] Status: Signed Intake Vital Signs 03/27/25 11:23 05/31/25 09:49 Height 5 ft 6 in 5 ft 6 in Weight: 155 lb 151 lb BMI 25.0 24.3 BP 130/85 H 106/71 Blood Pressure Location Lt brachial Lt brachial Position Sitting Sitting Respiration 18 16 Pulse 87 69 Pulse Source Monitor Monitor BP Intake Visit Reasons: Follow up Accompanied by: Self Allergies buprenorphine (From mSnap) Allergy (Verified 05/31/25 09:54) Rash NSAIDS (Non-Steroidal [...] and van (more content not included)... Normal [facility] Echo Completeon 04-26-2025 Echo Complete [facility] [address] [place] [address] Echo Complete 04/26/25 0947 MR#: [id number] Acct: [id number] Name: MORENA PATTON Rep #: [id number] : 1960 65 From: Ta Montoya MD Attending Dr: Dr. Ta Montoya MD Status: MACY PHIPPS Ordering Dr: Angie Sandoval Date: 04/03 12/24 [facility] Sex[facility] F AA Admitted: Reason For [...] Juan Carlos Cramer RCS 04/26/25 1239 Date aT Montoya MD CC: Dr. Ta Montoya MD; MANUELA Middleton; No Primary Care Physician Date Dictated: 04/26/2547 Date Transcribed: 04/26/25 1239 Optical Glass Wet Inspector: Signed Normal [facility] Stress Reporton 04-26-2025 Stress Report [facility] [address] [place] [address] MR#: [id number] Acct: [id number] Name: MORENA PATTON Rep #: [id number] : 1960 65 From: Ta Montoya MD [...] Physician Date Dictated: 04/26/251327 Date Transcribed: 04/26/251327 Optical Glass Wet Inspector: [place] Signed Normal [facility] Cardiology Visit Reporton Cardiology Visit Report [facility] [address] [place] [address] OFFICE VISIT Date of Service: 03/27/25 MR#: [id number] Acct: [id number] Name: MORENA PATTON Rep #: [id number] : 1960 Provider: MANUELA Tsang Age/Sex: 65/F [place] [facility] [place] Status: Signed HPI HPI History of Present [...] Monitor Intake Visit Reasons: 7 M FU Mail Order Clerk Required: No Accompanied by: Daughter In Law [...] with activity (more content not included)... Normal [facility] CBC W/Diff, Automatedon 08- Anisocytosis Ql (Bld) 2+ Normal [facility] Comment on above: Performed By: #### L 100.0100, L500.4050, L503.6550, L503.6030 #### [facility] Laboratory [address] [place], [address] PLT EST A Normal ADEQ [facility] Comment on above: Performed By: #### L 100.0100, L500.4050, L503.6550, L503.6030 #### [facility] [address] [place], [address] TARGET CELLS 2+ Normal [facility] Comment on above: Performed By: #### L 100.0100, L500.4050, L503.6550, L503.6030 #### [facility] [address] [place], [address] Comprehensive Metabolic Prof ilon 03-05-2025 Albumin [Mass/Vol] 4.2 g/dL Normal 3.4-4.8 [facility] Comment on above: Performed By: #### L 100.0100, L500.4050, L503.6550, L503.6030 #### [facility] [address] [place], [address] Albumin/Globulin [Mass ratio] 1.6 {ratio} Normal 0.9-2.4 [facility] Comment on above: Performed By: #### L 100.0100, L500.4050, L503.6550, L503.6030 #### [facility] [address] [place], [address] ALK PHOS 98 U/L Normal 35-104 [facility] Comment on above: Performed By: #### L 100.0100, L500.4050, L503.6550, L503.6030 #### [facility] [address] [place], [address] ALT [Catalytic activity/Vol] 12 U/L Normal <=34 [facility] Comment on above: Performed By: #### L 100.0100, L500.4050, L503.6550, L503.6030 #### [facility] [address] [place], [address] AST [Catalytic activity/Vol] 26 U/L Normal <=31 [facility] Comment on above: Performed By: #### L 100.0100, L500.4050, L503.6550, L503.6030 #### [facility] [address] [place], [address] Bilirubin [Mass/Vol] 0.23 mg/dL Normal 0.00-1.30 [facility] Comment on above: Performed By: #### L 100.0100, L500.4050, L503.6550, L503.6030 #### [facility] [address] [place], [address] BUN/CRE 12.9 RATIO Normal 10-20 [facility] Comment on above: Performed By: #### L 100.0100, L500.4050, L503.6550, L503.6030 #### [facility] [address] [place], [address] Calcium [Mass/Vol] 9.6 mg/dL Normal 7.6-11.0 [facility] Comment on above: Performed By: #### L 100.0100, L500.4050, L503.6550, L503.6030 #### [facility] [address] [place], [address] Chloride [Moles/Vol] 107 mmol/L Normal 98-108 [facility] Comment on above: Performed By: #### L 100.0100, L500.4050, L503.6550, L503.6030 #### [facility] [address] [place], [address] CO2 [Moles/Vol] 21.1 mmol/L Normal 21.0-32.0 [facility] Comment on above: Performed By: #### L 100.0100, L500.4050, L503.6550, L503.6030 #### [facility] [address] [place], [address] Creatinine [Mass/Vol] 0.87 mg/dL Normal 0.70-1.20 [facility] Comment on above: Performed By: #### L 100.0100, L500.4050, L503.6550, L503.6030 #### [facility] [address] [place], [address] GAP 12 Normal 5-15 [facility] Comment on above: Performed By: #### L 100.0100, L500.4050, L503.6550, L503.6030 #### [facility] [address] [place], [address] GFR/1.73 sq M.predicted among non-blacks MDRD (S/P/Bld) [Vol rate/Area] 74 mL/min/{1.73_m2} Normal >60 [facility] Comment on above: Result Comment: mL/m in/1.73m2 CKD-EPI Creatinine Equation (2020) Performed By: #### L 100.0100, L500.4050, L503.6550, L503.6030 #### [facility] [address] [place], [address] Globulin (S) [Mass/Vol] 2.7 g/dL Normal 2.2-4.2 [facility] Comment on above: Performed By: #### L 100.0100, L500.4050, L503.6550, L503.6030 #### [facility] [address] [place], [address] Glucose [Mass/Vol] 108 mg/dL High 70-99 [facility] Comment on above: Performed By: #### L 100.0100, L500.4050, L503.6550, L503.6030 #### [facility] [address] [place], [address] Potassium [Moles/Vol] 4.3 mmol/L Normal 3.3-5.1 [facility] Comment on above: Performed By: #### L 100.0100, L500.4050, L503.6550, L503.6030 #### [facility] [address] [place], [address] Sodium [Moles/Vol] 140 mmol/L Normal 133-145 [facility] Comment on above: Performed By: #### L 100.0100, L500.4050, L503.6550, L503.6030 #### [facility] [address] [place], [address] T PROT 6.9 g/dL Normal 5.9-8.4 [facility] Comment on above: Performed By: #### L 100.0100, L500.4050, L503.6550, L503.6030 #### [facility] [address] [place], [address] Urea nitrogen [Mass/Vol] 11 mg/dL Normal 4-19 [facility] Comment on above: Performed By: #### L 100.0100, L500.4050, L503.6550, L503.6030 #### [facility] [address] [place], [address] Ferritinon 03-05-2025 Ferritin [Mass/Vol] 36 ng/mL Normal 22-378 [facility] Comment on above: Performed By: #### L 100.0100, L500.4050, L503.6550, L503.6030 #### [facility] [address] [place], [address] Iron+Iron Binding Capacityon 03-05-2025 Iron [Mass/Vol] 42 ug/dL Low 50-170 [facility] Comment on above: Performed By: #### L 100.0100, L500.4050, L503.6550, L503.6030 #### [facility] [address] [place], [address] IRON SATURATION 11.0 Low 13-59 [facility] Comment on above: Performed By: #### L 100.0100, L500.4050, L503.6550, L503.6030 #### [facility] [address] [place], [address] TIBC 382 ug/dL Normal 250-450 [facility] Comment on above: Performed By: #### L 100.0100, L500.4050, L503.6550, L503.6030 #### [facility] [address] [place], [address] UIBC 340 ug/dL Normal 228-428 [facility] Comment on above: Performed By: #### L 100.0100, L500.4050, L503.6550, L503.6030 #### [facility] [address] [place], [address] Oncology Visit Reporton Oncology Visit Report [facility] [place] [facility] [address] [place] [address] OFFICE VISIT Date of Service: 03/05/25 1152 MR#: [id number] Acct: [id number] Name: MORENA PATTON Rep #: [id number] : 1960 From: Jose Rachel MD Age/Sex: 65/F [place] [facility] [place] Status: Signed HPI Subjective Date of Service [...] of her hematology care to myself. [facility] Medical History (Updated 03/05/25 @ 12:10 by [...] 100 Oxygen Delivery Method room air Intake Mail Order Clerk Required: No Accompanied by: Grandson Is patient in pain?: Yes (headache) Pain scale (1-10): 5 Allergies buprenorphine (From Butrans) Allergy (Verified 03/05/25 11:55) Rash NSAIDS (Non-Steroidal Anti-Inflamma Adverse Reaction (Verified 03/05/25 11:5 (more content not included)... Normal [facility] Vitamin B12on 03-05-2025 Cobalamin (Vitamin B12) [Mass/Vol] 442 pg/mL Normal 180-914 [facility] Comment on above: Order Comment: ADD O N Performed By: #### L 503.0106 #### [facility] Laboratory [address] 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 Could not absorb oral iron) Disposition Disposition (needs filled in before D/C Order can be placed): Home, Self Care 01/27/25 1151 Lam Espinal MD CC: Dr. Virginie Aguillon MD; No Primary Care Physician Signed Normal [facility] Basic Metabolic Profile (BMP )on 01-26-2025 BUN/CRE 13.3 RATIO Normal 10-20 [facility] Comment on above: Performed By: #### L 503.0106 #### [facility] [address] [place], [address] Calcium [Mass/Vol] 9.0 mg/dL Normal 7.6-11.0 [facility] Comment on above: Performed By: #### L 503.0106 #### [facility] [address] [place], [address] Chloride [Moles/Vol] 107 mmol/L Normal 98-108 [facility] Comment on above: Performed By: #### L 503.0106 #### [facility] [address] [place], [address] CO2 [Moles/Vol] 18.7 mmol/L Low 21.0-32.0 [facility] Comment on above: Performed By: #### L 503.0106 #### [facility] [address] [place], [address] Creatinine [Mass/Vol] 0.92 mg/dL Normal 0.70-1.20 [facility] Comment on above: Performed By: #### L 503.0106 #### [facility] [address] [place], [address] ECRCL 57.83 ml/min Normal 50-250 [facility] Comment on above: Performed By: #### L 503.0106 #### [facility] [address] [place], [address] GAP 11 Normal 5-15 [facility] Comment on above: Performed By: #### L 503.0106 #### [facility] [address] [place], [address] GFR/1.73 sq M.predicted among non-blacks MDRD (S/P/Bld) [Vol rate/Area] 70 mL/min/{1.73_m2} Normal >60 [facility] Comment on above: Result Comment: mL/m in/1.73m2 CKD-EPI Creatinine Equation (2020) Performed By: #### L 503.0106 #### [facility] [address] [place], [address] Glucose [Mass/Vol] 90 mg/dL Normal 70-99 [facility] Comment on above: Performed By: #### L 503.0106 #### [facility] [address] [place], [address] Potassium [Moles/Vol] 3.8 mmol/L Normal 3.3-5.1 [facility] Comment on above: Performed By: #### L 503.0106 #### [facility] [address] [place], [address] Sodium [Moles/Vol] 136 mmol/L Normal 133-145 [facility] Comment on above: Performed By: #### L 503.0106 #### [facility] [address] [place], [address] Urea nitrogen [Mass/Vol] 12 mg/dL Normal 4-19 [facility] Comment on above: Performed By: #### L 503.0106 #### [facility] [address] [place], [address] CBC W/Diff, Automatedon -2 TEAR DROP 1+ Normal [facility] Comment on above: Performed By: #### L 100.0100, L501.9520, L500.2500 #### [facility] [address] [place], [address] SCHISTOCYTES 1+ Normal [facility] Comment on above: Performed By: #### L 100.0100, L501.9520, L500.2500 #### [facility] [address] [place], [address] TARGET CELLS 1+ Normal [facility] Comment on above: Performed By: #### L 100.0100, L501.9520, L500.2500 #### [facility] [address] [place], [address] Anisocytosis Ql (Bld) 1+ Normal [facility] Comment on above: Performed By: #### L 100.0100, L501.9520, L500.2500 #### [facility] [address] [place], [address] MACROCYTOSIS 1+ Normal [facility] Comment on above: Performed By: #### L 100.0100, L501.9520, L500.2500 #### [facility] [address] [place], [address] POLYCHROMASIA 1+ Normal [facility] Comment on above: Performed By: #### L 100.0100, L501.9520, L500.2500 #### [facility] [address] [place], [address] Gastric Emptying Studyon Gastric Emptying Study [facility] Imaging Services [address] [place] [address] Gastric Emptying Study MR#: [id number] Acct: [id number] Name: MORENA PATTON Rep #: [id number] : 1960 F 64 From: Drew Santiago PCP: Care Physician,No Primary Status: ADM CYRIL Study: Gastric Emptying Study Date of Exam: 01/26/25 Exam# [id number] Ordering Dr: Virginie Aguillon MD PROCEDURE: GASTRIC [...] geometric mean was used to calculate a bufa-agmjgbka-kwryj. Medications taken in the past 24 hours [...] semi solid phase gastric emptying Reading Location: [place] [address] CC: Dr. Gila Reeves DO; Dr. Virginie Aguillon MD; Dr. Lam Espinal MD; No Primary Care Physician Optical Glass Wet Inspector: Signed Normal [facility] Iron+Iron Binding Capacityon 01-26-2025 TIBC 501 ug/dL High 250-450 [facility] Comment on above: Performed By: #### L 503.0106 #### [facility] Laboratory [address] [place], [address] Thyroid Stim Hormone (TSH)on 01-26-2025 TSH 2.830 uIU/mL Normal 0.300-4.20 0 [facility] Comment on above: Performed By: #### L 503.0106 #### [facility] Laboratory [address] [place], [address] Abdomen/Pelvis W IV Cont ONL Yon 01-25-2025 Abdomen/Pelvis W IV Cont ONLY [facility] Imaging Services [address] [place] [address] Abdomen/Pelvis W IV Cont ONLY MR#: [id number] Acct: [id number] Name: MORENA PATTON Rep #: [id number] : 1960 F 64 From: Javad juarez MD PCP: Care Physician,No Primary Status: REG ER Study: Abdomen/Pelvis W IV Cont ONLY Date of Exam: Exam# [id number] Ordering Dr: Gila Reeves DO PROCEDURE: ABDOMEN/PELVIS [...] No acute abnormality is seen. Reading Location: [id number] CC: Dr. Gila Reeves DO; No Primary Care Physician Optical Glass Wet Inspector: Signed Normal [facility] CBC W/Diff, Automatedon 01-01 PLT EST ADEQUATE Normal ADEQ [facility] Comment on above: Performed By: #### L 500.4050, L501.2450, L100.0100 #### [facility] Laboratory [address] [facility] [place], [address] CTA Chest W/WO Contraston CTA Chest W/WO Contrast [facility] Imaging Services [address] [place], [place] [address] CTA Chest W/WO Contrast MR#: [id number] Acct: [id number] Name: MORENA PATTON Rep #: [id number] : 1960 F 64 From: Javad juarez MD PCP: Care Physician,No Primary Status: REG ER Study: CTA Chest W/WO Contrast Date of Exam: 01/25/25 Exam# [id number] Ordering Dr: Gila Reeves DO PROCEDURE: CTA [...] No evidence of pulmonary embolism. Reading Location: [facility] CC: Dr. Gila Reeves DO; No Primary Care Physician Optical Glass Wet Inspector: Signed Normal [facility] Chest PA and Lateralon 01-25 Chest PA and Lateral [facility] Imaging Services [address] [place], [place] [id number] Chest PA and Lateral MR#: [id number] Acct: [id number] Name: MORENA PATTON Rep #: [id number] : 1960 F 64 From: Drew Santiago PCP: Care Physician,No Primary Status: REG ER Study: Chest PA and Lateral Date of Exam: 01/25/25 Exam# [id number] Ordering Dr: Gila Reeves DO PROCEDURE: CHEST [...] interval osseous change is seen. Reading Location: [place] [address] CC: Dr. Gila Reeves DO; No Primary Care Physician Optical Glass Wet Inspector: Signed Normal [facility] Comprehensive Metabolic Prof ilon 01-25-2025 Albumin [Mass/Vol] 4.3 g/dL Normal 3.4-4.8 [facility] Comment on above: Performed By: #### L 500.4050, L501.2450, L100.0100 #### [facility] [address] [place], [address] Albumin/Globulin [Mass ratio] 1.4 {ratio} Normal 0.9-2.4 [facility] Comment on above: Performed By: #### L 500.4050, L501.2450, L100.0100 #### [facility] [address] [place], [address] ALK PHOS 104 U/L Normal 35-104 [facility] Comment on above: Performed By: #### L 500.4050, L501.2450, L100.0100 #### [facility] [address] [place], [address] ALT [Catalytic activity/Vol] 15 U/L Normal <=34 [facility] Comment on above: Performed By: #### L 500.4050, L501.2450, L100.0100 #### [facility] [address] [place], [address] AST [Catalytic activity/Vol] 30 U/L Normal <=31 [facility] Comment on above: Result Comment: Hemo lysis present, Results??could be affected. ?? Performed By: #### L 500.4050, L501.2450, L100.0100 #### [facility] [address] [place], [address] Bilirubin [Mass/Vol] 0.24 mg/dL Normal 0.00-1.30 [facility] Comment on above: Performed By: #### L 500.4050, L501.2450, L100.0100 #### [facility] [address] [place], [address] BUN/CRE 16.0 RATIO Normal 10-20 [facility] Comment on above: Performed By: #### L 500.4050, L501.2450, L100.0100 #### [facility] [address] [place], [address] Calcium [Mass/Vol] 9.6 mg/dL Normal 7.6-11.0 [facility] Comment on above: Performed By: #### L 500.4050, L501.2450, L100.0100 #### [facility] [address] [place], [address] Chloride [Moles/Vol] 102 mmol/L Normal 98-108 [facility] Comment on above: Performed By: #### L 500.4050, L501.2450, L100.0100 #### [facility] [address] [place], [address] CO2 [Moles/Vol] 19.7 mmol/L Low 21.0-32.0 [facility] Comment on above: Performed By: #### L 500.4050, L501.2450, L100.0100 #### [facility] [address] [place], [address] Creatinine [Mass/Vol] 1.09 mg/dL Normal 0.70-1.20 [facility] Comment on above: Performed By: #### L 500.4050, L501.2450, L100.0100 #### [facility] [address] [place], [address] ECRCL 48.81 ml/min Low 50-250 [facility] Comment on above: Performed By: #### L 500.4050, L501.2450, L100.0100 #### [facility] [address] [place], [address] GAP 13 Normal 5-15 [facility] Comment on above: Performed By: #### L 500.4050, L501.2450, L100.0100 #### [facility] [address] [place], [address] GFR/1.73 sq M.predicted among non-blacks MDRD (S/P/Bld) [Vol rate/Area] 57 mL/min/{1.73_m2} Low >60 [facility] Comment on above: Result Comment: mL/m in/1.73m2 CKD-EPI Creatinine Equation (2020) Performed By: #### L 500.4050, L501.2450, L100.0100 #### [facility] [address] [place], [address] Globulin (S) [Mass/Vol] 3.1 g/dL Normal 2.2-4.2 [facility] Comment on above: Performed By: #### L 500.4050, L501.2450, L100.0100 #### [facility] [address] [place], [address] Glucose [Mass/Vol] 101 mg/dL High 70-99 [facility] Comment on above: Performed By: #### L 500.4050, L501.2450, L100.0100 #### [facility] [address] [place], [address] Potassium [Moles/Vol] 4.2 mmol/L Normal 3.3-5.1 [facility] Comment on above: Result Comment: Hemo lysis present, Results??could be affected. ?? Performed By: #### L 500.4050, L501.2450, L100.0100 #### [facility] [address] [place], [address] Sodium [Moles/Vol] 135 mmol/L Normal 133-145 [facility] Comment on above: Performed By: #### L 500.4050, L501.2450, L100.0100 #### [facility] [address] [place], [address] T PROT 7.4 g/dL Normal 5.9-8.4 [facility] Comment on above: Performed By: #### L 500.4050, L501.2450, L100.0100 #### [facility] [address] [place], [address] Urea nitrogen [Mass/Vol] 17 mg/dL Normal 4-19 [facility] Comment on above: Performed By: #### L 500.4050, L501.2450, L100.0100 #### [facility] [address] [place], [address] Emergency Department Summary on 01-25-2025 Emergency Department Summary [facility] Medical Records Department [address] [place] [address] Emergency Department Summary 01/25/25 MR#: [id number] Acct: [id number] Name: MORENA PATTON Rep #: [id number] : 1960 64 From: Gila Reeves DO PCP: Care Physician,No Primary Status:ADM CYRIL Location: MS3 [id number] HPI History of Present Illness Chief Complaint: [...] She came in for further evaluation with [facility] Medical History (Updated 01/26/25 @ 00:17 by [...] Reaction Status Date / Time buprenorphine (From [facility]) Allergy Rash Verified 01/25/25 19:32 NSAIDS (Non-Steroidal [...] weakness Psychi (more content not included)... Normal [facility] Ferritinon 01-25-2025 Ferritin [Mass/Vol] 13 ng/mL Low 22-378 [facility] Comment on above: Performed By: #### L 503.0106 #### [facility] [address] [place], [address] H AND P Exam - Hospitaliston 01-25-2025 H&P Exam - Hospitalist [facility] Medical Records Department [address] [place] [address] H P Exam - Hospitalist 01/25/25 1855 MR#: [id number] Acct: [id number] Name: MORENA PATTON Rep #: [id number] : 1960 64 From: Virginie Aguillon MD PCP: Care Physician,No Primary Status:REG ER Location: ED HPI - General General Date of Admission: 01/25/25 Date of Service: 01/25/25 Chief Complaint: Abdominal pain, weakness HPI Narrative MORENA PATTON, is a 64-year-old female history of GERD, PTSD, PUD, hypertension, depression presented to [facility] ED 01/25/2025 with left upper quadrant pain, [...] No other new or acute complaints [facility] Medical History (Updated 01/25/25 @ 19:41 by [...] you par (more content not included)... Normal [facility] L503.7505on 01-25-2025 Natriuretic peptide B (Bld) [Mass/Vol] 95 pg/mL Normal <=900 [facility] Comment on above: Result Comment: Hear t Failure Unlikely: < 300 pg/mL Heart Failure Likely < 50 Years: > 450 pg/mL 50-75 Years: > 900 pg/mL >75 Years: > 1800 pg/mL Performed By: #### L 500.4050, L501.2450, L100.0100 #### [facility] [address] [place], [address] Lipaseon 01-25-2025 Lipase [Catalytic activity/Vol] 44 U/L Normal 13-75 [facility] Comment on above: Result Comment: Quinten gruber note: LIPASE revised reference range effective 22. New Lipase methodology. Expected to produce lower values than the previous assay method. NEW Reference Range: 13 - 75 U/L Performed By: #### L 500.4050, L501.2450, L100.0100 #### [facility] [address] [place], [address] Retic Panelon 01-25-2025 IM RET FRACTION 39.90 High 3.00-15.90 [facility] Comment on above: Performed By: #### L 503.0106 #### [facility] [address] [place], [address] RET-HE 24.7 pg Low 30-35 [facility] Comment on above: Performed By: #### L 503.0106 #### [facility] [address] [place], [address] Retic Count 1.43 Normal 0.5-1.5 [facility] Comment on above: Performed By: #### L 503.0106 #### [facility] [address] [place], [address] Stool Occult Blood iFOBon STOB Negative Normal [facility] Comment on above: Performed By: #### M 100.7900 #### [facility] [address] [place], [address] Urinalysis, Completeon 01-25 EPI,SQUAMOUS 0-5 SEEN Normal 5-10 [facility] Comment on above: Order Comment: ADD O N Performed By: #### L 503.0106 #### [facility] [address] [place], [address] RBC 0-5 SEEN Normal 0-5 [facility] Comment on above: Order Comment: ADD O N Performed By: #### L 503.0106 #### [facility] [address] [place], [place], [address] WBC 0-5 SEEN Normal 0-5 [facility] Comment on above: Order Comment: ADD O N Performed By: #### L 503.0106 #### [facility] [address] [place], [address] BACTERIA 0 SEEN Normal None Seen [facility] Comment on above: Order Comment: ADD O N Performed By: #### L 503.0106 #### [facility] [address] [place], [place], [address] Mucus Ql (Urine sed) [address] [facility] Comment on above: Order Comment: ADD O N Performed By: #### L 503.0106 #### [facility] [address] [place], [place], [address] MR/BMS.BPon 12-15-2024 MR/BMS.[address], [address] [place] [address] OFFICE VISIT Date of Service: 12/15/24 MR#: [id number] Acct: [id number] Name: MORENA PATTON Rep #: [id number] : 1960 Provider: KATIE dewey Age/Sex: 64/F Location: [facility] Status: Signed Intake Vital Signs 10/10/24 08:10 [...] Appetite is (more content not included)... Normal [facility] MR/BMS.BPon 10-10-2024 MR/BMS.BP [address], [address] [place] [address] OFFICE VISIT Date of Service: 10/10/24 MR#: [id number] Acct: [id number] Name: MORENA PATTON Rep #: [id number] : 1960 Provider: KATIE dewey Age/Sex: 64/F Location: [facility] Status: Signed Intake Vital Signs 08/22/24 07:39 [...] 7wfu Accompanied by: Self Allergies buprenorphine (From [employer]) Allergy (Verified 10/10/24 08:39) Rash NSAIDS (Non-Steroidal [...] 31-40 years (more content not included)... Normal [facility] Culture, Blood (WB)on 2024 CUB Blood cultures x2, f rom two different sites No growth in 5 days. Normal [facility] Comment on above: Performed By: #### L 500.4050, L501.2450, L100.0100 #### [facility] [address] [place], [address] 12 Lead EKG performed by [facility] on 08-30-2024 12 Lead EKG performed by [facility] [address] [place] [address] 12 Lead EKG performed by [facility] 08/30/24 0935 MR#: [id number] Acct: [id number] Name: MORENA PATTON Rep #: [id number] : 1960 64 From: aT Montoya MD Attending Dr: Dr. Ta Montoya MD Status: DEP A TOYA Ordering Dr: Ta Montoya MD Date: 08/30/24 Location: [facility] Sex: F AA Admitted: [facility]/12 Lead EKG performed by [facility] ECG Report Interpretation Sinus Rhythm -Left atrial enlargement. BORDERLINEElectronically signed on 08/30/2024 at 15:15 by Ta Montoya [email or web address] Version 8610 08/30/24 6240 Date Ta Montoya MD CC: Dr. Stoney Hudson MD Date Dictated: 08/30/24934 Date Transcribed: 08/30/24934 Optical Glass Wet Inspector: [place] Signed Normal [facility] Cardiology Visit Reporton Cardiology Visit Report [facility] [address] [place] [address] OFFICE VISIT Date of Service: 08/30/24 MR#: [id number] Acct: [id number] Name: MORENA PATTON Rep #: [id number] : 1960 Provider: Dr. Ta Montoya MD Age/Sex: 64/F Location: [facility] Status: Signed HPI HPI History of Present [...] Monitor Intake Visit Reasons: Chest Pain (Tristan) Mail Order Clerk Required: No Accompanied by: Self Is patient [...] at home: (more content not included)... Normal [facility] Urine Cultureon 08-28-2024 URC Mixed Gram Positive Organisms [place] Count 11,000-25,000 MIXC Mixed contaminants. Submit a new specimen if indicated. Normal [facility] Comment on above: Performed By: #### L 500.4050, L501.2450, L100.0100 #### [facility] [address] [place], [address] 12 Lead EKGon 08-26-2024 12 Lead EKG [facility] [address] [place] [address] 12 Lead EKG 08/26/24 1710 MR#: [id number] Acct: [id number] Name: ALEKMORENA Rep #: [id number] : 1960 64 From: London Dupont MD [...] Borderline ECG Confirmed by TERRANCE WOO, JULIO ([id number]), newspaper or periodical editor ENZO STANFORD ([id number]) on 08/29/2024 6:13:58 AM Referred By: Confirmed By: JULIO DUPONT MD 08/29/24612 Date London Dupont MD CC: Dr. Stoney Hudson MD; Dr. Duglas Ariza DO Signed Normal [facility] CBC W/Diff, Automatedon 08-03 Absolute Lymph 1.30 X10 3/uL Normal 0.83-4.51 [facility] Comment on above: Performed By: #### L 500.4050, L501.2450, L100.0100 #### [facility] [address] [place], [address] Absolute Neut 1.8 X10 3/uL Low 2.0-7.7 [facility] Comment on above: Performed By: #### L 500.4050, L501.2450, L100.0100 #### [facility] [address] [place], [address] Basophils/100 WBC (Bld) 0.6 % Normal 0-1 [facility] Comment on above: Performed By: #### L 500.4050, L501.2450, L100.0100 #### [facility] [address] [place], [address] Eosinophils/100 WBC (Bld) 0.0 % Normal 0-5 [facility] Comment on above: Performed By: #### L 500.4050, L501.2450, L100.0100 #### [facility] [address] [place], [address] Erythrocyte distribution width (RBC) [Ratio] 16.7 % High 11.6-14.6 [facility] Comment on above: Performed By: #### L 500.4050, L501.2450, L100.0100 #### [facility] [address] [place], [address] Hematocrit (Bld) [Volume fraction] 35.4 % Low 37-47 [facility] Comment on above: Performed By: #### L 500.4050, L501.2450, L100.0100 #### [facility] [address] [place], [address] Hemoglobin (Bld) [Mass/Vol] 11.4 g/dL Low 12.0-15.0 [facility] Comment on above: Performed By: #### L 500.4050, L501.2450, L100.0100 #### [facility] [address] [place], [address] IG% 0.300 Normal 0.0-0.9 [facility] Comment on above: Result Comment: IG% - Immature Granulocytes (promyelocytes, myelocytes and metamyelocytes) > 1% indicates that a LEFT SHIFT is Present. Performed By: #### L 500.4050, L501.2450, L100.0100 #### [facility] [address] [place], [address] Lymphocytes/100 WBC (Bld) 37.7 % Normal 19-41 [facility] Comment on above: Performed By: #### L 500.4050, L501.2450, L100.0100 #### [facility] [address] [place], [address] MCH (RBC) [Entitic mass] 23.9 pg Low 27.0-32.0 [facility] Comment on above: Performed By: #### L 500.4050, L501.2450, L100.0100 #### [facility] [address] [place], [address] MCHC (RBC) [Mass/Vol] 32.2 g/dL Normal 32-36 [facility] Comment on above: Performed By: #### L 500.4050, L501.2450, L100.0100 #### [facility] [address] [place], [address] MCV (RBC) [Entitic vol] 74.2 fL Low 81-99 [facility] Comment on above: Performed By: #### L 500.4050, L501.2450, L100.0100 #### [facility] [address] [place], [address] Monocytes/100 WBC (Bld) 10.1 % High 0-10 [facility] Comment on above: Performed By: #### L 500.4050, L501.2450, L100.0100 #### [facility] [address] [place], [address] Neutrophils/100 WBC (Bld) 51.3 % Normal 47-70 [facility] Comment on above: Performed By: #### L 500.4050, L501.2450, L100.0100 #### [facility] [address] [place], [address] Nucleated RBC (Bld) [#/Vol] 0 10*3/uL Normal 0-5 [facility] Comment on above: Performed By: #### L 500.4050, L501.2450, L100.0100 #### [facility] [address] [place], [address] Platelet mean volume (Bld) [Entitic vol] 10.0 fL Normal 6.2-12.0 [facility] Comment on above: Performed By: #### L 500.4050, L501.2450, L100.0100 #### [facility] [address] [place], [address] Platelets (Bld) [#/Vol] 253 10*3/uL Normal 150-450 [facility] Comment on above: Performed By: #### L 500.4050, L501.2450, L100.0100 #### [facility] [address] [place], [address] RBC (Bld) [#/Vol] 4.77 10*6/uL Normal 4.2-5.4 [facility] Comment on above: Performed By: #### L 500.4050, L501.2450, L100.0100 #### [facility] [address] [place], [address] RDW SD 44.5 fl High 35.1-43.9 [facility] Comment on above: Performed By: #### L 500.4050, L501.2450, L100.0100 #### [facility] [address] [place], [address] WBC (Bld) [#/Vol] 3.5 10*3/uL Low 4.4-11.0 [facility] Comment on above: Performed By: #### L 500.4050, L501.2450, L100.0100 #### [facility] [address] [place], [address] Chest 1 View (Portable)on Chest 1 View (Portable) [facility] Imaging Services [address] [place] [address] Chest 1 View (Portable) MR#: [id number] Acct: [id number] Name: MORENA PATTON Rep #: [id number] : 1960 F 64 From: Ronnell jackman MD PCP: Dr. Stoney Hudson MD Status: REG ER Study: Chest 1 View (Portable) Date of Exam: 08/26/24 Exam# [id number] Ordering Dr: Duglas Ariza DO [id number] INDICATION: SOB EXAMINATION/TECHNIQUE: X-RAY - XR Chest 1 View COMPARISON: 04/01/2024. FINDINGS: The lungs are clear. Tortuous and calcified thoracic aorta. The heart is not enlarged. No pleural effusion or pneumothorax. No acute osseous abnormalities. RAD/Chest 1 View (Portable) IMPRESSION: No acute radiographic abnormalities. Electronically Signed: Ronnell Dan MD at 20:10 EST , CC: Dr. Stoney Hudson MD; Dr. Duglas Ariza DO Optical Glass Wet Inspector: Signed Normal [facility] Comprehensive Metabolic Prof ilon 08-26-2024 Albumin [Mass/Vol] 3.4 g/dL Normal 3.2-5.0 [facility] Comment on above: Performed By: #### L 500.4050, L501.2450, L100.0100 #### [facility] [address] [place], [address] Albumin/Globulin [Mass ratio] 0.8 {ratio} Low 0.9-2.4 [facility] Comment on above: Performed By: #### L 500.4050, L501.2450, L100.0100 #### [facility] [address] [place], [address] ALK P 100 U/L Normal 45-117 [facility] Comment on above: Performed By: #### L 500.4050, L501.2450, L100.0100 #### [facility] [address] [place], [address] ALT [Catalytic activity/Vol] 20 U/L Normal 13-56 [facility] Comment on above: Performed By: #### L 500.4050, L501.2450, L100.0100 #### [facility] [address] [place], [address] AST [Catalytic activity/Vol] 37 U/L Normal 15-37 [facility] Comment on above: Performed By: #### L 500.4050, L501.2450, L100.0100 #### [facility] [address] [place], [address] Bilirubin [Mass/Vol] 0.30 mg/dL Normal 0.20-1.00 [facility] Comment on above: Result Comment: For patients on eltrombopag therapy, use of Dimension Purcell TBIL is not recommended. Performed By: #### L 500.4050, L501.2450, L100.0100 #### [facility] [address] [place], [address] BUN/CRE 12.5 RATIO Normal 10-20 [facility] Comment on above: Performed By: #### L 500.4050, L501.2450, L100.0100 #### [facility] [address] [place], [address] CA,Total 9.3 mg/dL Normal 8.5-10.1 [facility] Comment on above: Performed By: #### L 500.4050, L501.2450, L100.0100 #### [facility] [address] [place], [address] Chloride [Moles/Vol] 102 mmol/L Normal 98-107 [facility] Comment on above: Performed By: #### L 500.4050, L501.2450, L100.0100 #### [facility] [address] [place], [address] CO2 [Moles/Vol] 23.0 mmol/L Normal 21.0-32.0 [facility] Comment on above: Performed By: #### L 500.4050, L501.2450, L100.0100 #### [facility] [address] [place], [address] Creatinine [Mass/Vol] 1.28 mg/dL High 0.55-1.02 [facility] [facility] Comment on above: Result Comment: The validity of the calculated GFR GFRAA in patients over 70 years has not been determined. Clinical correlation is essential. Performed By: #### L 500.4050, L501.2450, L100.0100 #### [facility] [address] [place], [address] EST GFR - AA 54 mL/min Low >60 [facility] Comment on above: Result Comment: Afri can [place] GFR Calc Performed By: #### L 500.4050, L501.2450, L100.0100 #### [facility] [address] [place], [address] GAP 9 Normal 5-15 [facility] Comment on above: Performed By: #### L 500.4050, L501.2450, L100.0100 #### [facility] [address] [place], [address] GFR/1.73 sq M.predicted among non-blacks MDRD (S/P/Bld) [Vol rate/Area] 45 mL/min/{1.73_m2} Low >60 [facility] Comment on above: Result Comment: Non- GFR Calc Performed By: #### L 500.4050, L501.2450, L100.0100 #### [facility] [address] [place], [address] Globulin (S) [Mass/Vol] 4.0 g/dL Normal 2.2-4.2 [facility] Comment on above: Performed By: #### L 500.4050, L501.2450, L100.0100 #### [facility] [address] [place], [address] Glucose [Mass/Vol] 103 mg/dL Normal 74-106 [facility] Comment on above: Result Comment: Fast ing Glucose result from 100 to 125 mg/dL suggests IMPAIRED HOMEOSTASIS per A.D.A. criteria. Performed By: #### L 500.4050, L501.2450, L100.0100 #### [facility] [address] [place], [address] Potassium [Moles/Vol] 3.8 mmol/L Normal 3.5-5.1 [facility] Comment on above: Performed By: #### L 500.4050, L501.2450, L100.0100 #### [facility] [address] [place], [address] Sodium [Moles/Vol] 134 mmol/L Low 136-145 [facility] Comment on above: Performed By: #### L 500.4050, L501.2450, L100.0100 #### [facility] [address] [place], [address] T PROT 7.4 g/dL Normal 6.4-8.2 [facility] Comment on above: Performed By: #### L 500.4050, L501.2450, L100.0100 #### [facility] [address] [place], [address] Urea nitrogen [Mass/Vol] 16 mg/dL Normal 7-18 [facility] Comment on above: Performed By: #### L 500.4050, L501.2450, L100.0100 #### [facility] [address] [place], [address] Emergency Department Summary on 08-26-2024 Emergency Department Summary [facility] Medical Records Department [address] [address] Emergency Department Summary 08/26/24 MR#: [id number] Acct: [id number] Name: MORENA PATTON Rep #: [id number] : 1960 64 From: Duglas Ariza DO PCP: Dr. Stoney Hudson MD Status:REG ER Location: ED HPI History of Present Illness Chief Complaint: General Illness [facility] Medical History (Updated 08/26/24 @ 19:53 by [...] No murmur (more content not included)... Normal [facility] Lactic Acidon 08-26-2024 Lactate [Moles/Vol] 1.3 mmol/L Normal 0.4-1.9 [facility] Comment on above: Order Comment: Y Performed By: #### L 500.4050, L501.2450, L100.0100 #### [facility] [address] [place] [place], [address] M100.678on 08-26-2024 SARS-CoV-2 (COVID-19) Ab IA Ql FLUABV+SARS-CoV-2+RSV Pnl Resp BISI+probe Copy of report sent to Infection Control Printer [id number] 08/26/24 1810 PRATIK. FLUABV+SARS-CoV-2+RSV Pnl Resp BISI+probe RESULTS CALLED TO A. SELF 08/26/24 1810 [place] Magdaleno. REPORT READ BACK BY . SAME SARS-CoV-2 (COVID 19) Negative INFLUENZA A A Positive A INFLUENZA B Negative RSV PCR Negative INFLUENZAE A Normal [facility] Comment on above: Performed By: #### L 500.4050, L501.2450, L100.0100 #### [facility] [address] [place] [place], [address] Partial Thromboplast Timeon 08-26-2024 aPTT Coag (Bld) [Time] 27.5 s Normal 24.1-36.2 [facility] Comment on above: Performed By: #### L 500.4050, L501.2450, L100.0100 #### [facility] [address] [place], [address] Prothrombin Time w/INRon INR Coag (PPP) [Relative time] 0.9 {INR} Normal [facility] Comment on above: Performed By: #### L 500.4050, L501.2450, L100.0100 #### [facility] [address] [place], [address] PT Coag (PPP) [Time] 11.8 s Normal 11.7-14.9 [facility] Comment on above: Performed By: #### L 500.4050, L501.2450, L100.0100 #### [facility] [address] [place], [address] Urinalysis, Completeon 08-26 BACTERIA RARE Normal None Seen [facility] Comment on above: Order Comment: COLLE CTOR TO SPECIFY Performed By: #### L 500.4050, L501.2450, L100.0100 #### [facility] [address] [place], [address] EPI,SQUAMOUS 0-5 SEEN Normal 5-10 [facility] Comment on above: Order Comment: COLLE CTOR TO SPECIFY Performed By: #### L 500.4050, L501.2450, L100.0100 #### [facility] [address] [place], [address] RBC 0-5 SEEN Normal 0-5 [facility] Comment on above: Order Comment: COLLE CTOR TO SPECIFY Performed By: #### L 500.4050, L501.2450, L100.0100 #### [facility] [address] [place], [address] Mucus Ql (Urine sed) [address] [facility] Comment on above: Order Comment: COLLE CTOR TO SPECIFY Performed By: #### L 500.4050, L501.2450, L100.0100 #### [facility] [address] [place], [address] WBC 0 SEEN Normal 0-5 [facility] Comment on above: Order Comment: DANIEL CTOR TO SPECIFY Performed By: #### L 500.4050, L501.2450, L100.0100 #### [facility] [address] [place], [address] MR/BMS.BPon 08-22-2024 MR/BMS.BP [address], [address] [place] [address] OFFICE VISIT Date of Service: 08/22/24 MR#: [id number] Acct: [id number] Name: MORENA PATTON Rep #: [id number] : 1960 Provider: KATIE dewey Age/Sex: 64/F Location: [facility] Status: Signed Intake Vital Signs 04/11/24 14:35 [...] making careless (more content not included)... Normal [facility] Ferritinon 07-20-2024 Ferritin [Mass/Vol] 8 ng/mL Normal 8-252 [facility] Comment on above: Order Comment: ADD O N Performed By: #### L 503.0106 #### [facility] [address] [place], [address] Folates, (Folic Acid)on 07-02 FOLATES 8.20 ng/mL Normal 3.1-55.4 [facility] Comment on above: Order Comment: N Performed By: #### L 500.4050, L501.2450, L100.0100 #### [facility] [address], [address] Iron+Iron Binding Capacityon 07-20-2024 Iron [Mass/Vol] 19 ug/dL Low 50-170 [facility] Comment on above: Order Comment: ADD O N Performed By: #### L 503.0106 #### [facility] [address] [place], [address] IRON SATURATION 4.7 Low 15.0-55.0 [facility] Comment on above: Order Comment: ADD O N Performed By: #### L 503.0106 #### [facility] [address] [place], [address] TIBC 402 ug/dL Normal 250-450 [facility] Comment on above: Order Comment: ADD O N Performed By: #### L 503.0106 #### [facility] [address] [place], [address] Retic Panelon 07-20-2024 IM RET FRACTION 19.60 High 3.00-15.90 [facility] Comment on above: Performed By: #### L 503.0106 #### [facility] [address] [place], [address] RET-HE 23.5 pg Low 30-35 [facility] Comment on above: Performed By: #### L 503.0106 #### [facility] [address] [place], [address] Retic Count 1.38 Normal 0.5-1.5 [facility] Comment on above: Performed By: #### L 503.0106 #### [facility] [address] [place], [address] Vitamin B12on 07-20-2024 Cobalamin (Vitamin B12) [Mass/Vol] 671 pg/mL Normal 211-911 [facility] Comment on above: Performed By: #### L 503.0106 #### [facility] [address] [place], [address] CBC W/Diff, Automatedon 07-02 Absolute Lymph 1.98 X10 3/uL Normal 0.83-4.51 [facility] Comment on above: Performed By: #### L 500.4050, L501.2450, L100.0100 #### [facility] [address] [place], [address] Absolute Neut 1.1 X10 3/uL Low 2.0-7.7 [facility] Comment on above: Performed By: #### L 500.4050, L501.2450, L100.0100 #### [facility] [address] [place], [address] Basophils/100 WBC (Bld) 0.9 % Normal 0-1 [facility] Comment on above: Performed By: #### L 500.4050, L501.2450, L100.0100 #### [facility] [address] [place], [address] Eosinophils/100 WBC (Bld) 2.3 % Normal 0-5 [facility] Comment on above: Performed By: #### L 500.4050, L501.2450, L100.0100 #### [facility] [address] [place], [address] Erythrocyte distribution width (RBC) [Ratio] 15.9 % High 11.6-14.6 [facility] Comment on above: Performed By: #### L 500.4050, L501.2450, L100.0100 #### [facility] [address] [place], [address] Hematocrit (Bld) [Volume fraction] 30.8 % Low 37-47 [facility] Comment on above: Performed By: #### L 500.4050, L501.2450, L100.0100 #### [facility] [address] [place], [address] Hemoglobin (Bld) [Mass/Vol] 9.9 g/dL Low 12.0-15.0 [facility] Comment on above: Performed By: #### L 500.4050, L501.2450, L100.0100 #### [facility] [address] [place], [address] IG% 0.000 Normal 0.0-0.9 [facility] Comment on above: Result Comment: IG% - Immature Granulocytes (promyelocytes, myelocytes and metamyelocytes) > 1% indicates that a LEFT SHIFT is Present. Performed By: #### L 500.4050, L501.2450, L100.0100 #### [facility] [address] [place], [address] Lymphocytes/100 WBC (Bld) 57.4 % High 19-41 [facility] Comment on above: Performed By: #### L 500.4050, L501.2450, L100.0100 #### [facility] [address] [place], [address] MCH (RBC) [Entitic mass] 26.5 pg Low 27.0-32.0 [facility] Comment on above: Performed By: #### L 500.4050, L501.2450, L100.0100 #### [facility] [address] [place], [address] MCHC (RBC) [Mass/Vol] 32.1 g/dL Normal 32-36 [facility] Comment on above: Performed By: #### L 500.4050, L501.2450, L100.0100 #### [facility] [address] [place], [address] MCV (RBC) [Entitic vol] 82.4 fL Normal 81-99 [facility] Comment on above: Performed By: #### L 500.4050, L501.2450, L100.0100 #### [facility] [address] [place], [address] Monocytes/100 WBC (Bld) 7.2 % Normal 0-10 [facility] Comment on above: Performed By: #### L 500.4050, L501.2450, L100.0100 #### [facility] [address] [place], [address] Neutrophils/100 WBC (Bld) 32.2 % Low 47-70 [facility] Comment on above: Performed By: #### L 500.4050, L501.2450, L100.0100 #### [facility] [address] [place], [address] Nucleated RBC (Bld) [#/Vol] 0 10*3/uL Normal 0-5 [facility] Comment on above: Performed By: #### L 500.4050, L501.2450, L100.0100 #### [facility] [address] [place], [address] Platelet mean volume (Bld) [Entitic vol] 9.0 fL Normal 6.2-12.0 [facility] Comment on above: Performed By: #### L 500.4050, L501.2450, L100.0100 #### [facility] [address] [place], [address] Platelets (Bld) [#/Vol] 325 10*3/uL Normal 150-450 [facility] Comment on above: Performed By: #### L 500.4050, L501.2450, L100.0100 #### [facility] [address] [place], [address] RBC (Bld) [#/Vol] 3.74 10*6/uL Low 4.2-5.4 [facility] Comment on above: Performed By: #### L 500.4050, L501.2450, L100.0100 #### [facility] [address] [place], [address] RDW SD 47.5 fl High 35.1-43.9 [facility] Comment on above: Performed By: #### L 500.4050, L501.2450, L100.0100 #### [facility] [address] [place], [address] WBC (Bld) [#/Vol] 3.5 10*3/uL Low 4.4-11.0 [facility] Comment on above: Performed By: #### L 500.4050, L501.2450, L100.0100 #### [facility] [address] [place], [address] Comprehensive Metabolic [facility] 07-19-2024 Albumin [Mass/Vol] 3.2 g/dL Normal 3.2-5.0 [facility] Comment on above: Performed By: #### L 500.4050, L501.2450, L100.0100 #### [facility] [address] [place], [address] Albumin/Globulin [Mass ratio] 0.9 {ratio} Normal 0.9-2.4 [facility] Comment on above: Performed By: #### L 500.4050, L501.2450, L100.0100 #### [facility] [address] [place], [address] ALK P 95 U/L Normal 45-117 [facility] Comment on above: Performed By: #### L 500.4050, L501.2450, L100.0100 #### [facility] [address] [place], [address] ALT [Catalytic activity/Vol] 20 U/L Normal 13-56 [facility] Comment on above: Performed By: #### L 500.4050, L501.2450, L100.0100 #### [facility] [address] [place], [address] AST [Catalytic activity/Vol] 21 U/L Normal 15-37 [facility] Comment on above: Performed By: #### L 500.4050, L501.2450, L100.0100 #### [facility] [address] [place], [address] Bilirubin [Mass/Vol] 0.30 mg/dL Normal 0.20-1.00 [facility] Comment on above: Result Comment: For patients on eltrombopag therapy, use of Dimension Purcell TBIL is not recommended. Performed By: #### L 500.4050, L501.2450, L100.0100 #### [facility] [address] [place], [address] BUN/CRE 10.8 RATIO Normal 10-20 [facility] Comment on above: Performed By: #### L 500.4050, L501.2450, L100.0100 #### [facility] [address] [place], [address] CA,Total 9.0 mg/dL Normal 8.5-10.1 [facility] Comment on above: Performed By: #### L 500.4050, L501.2450, L100.0100 #### [facility] [address] [place], [address] Chloride [Moles/Vol] 110 mmol/L High 98-107 [facility] Comment on above: Performed By: #### L 500.4050, L501.2450, L100.0100 #### [facility] [address] [place], [address] CO2 [Moles/Vol] 25.0 mmol/L Normal 21.0-32.0 [facility] Comment on above: Performed By: #### L 500.4050, L501.2450, L100.0100 #### [facility] [address] [place], [address] Creatinine [Mass/Vol] 0.93 mg/dL Normal 0.55-1.02 [facility] Comment on above: Result Comment: The validity of the calculated GFR GFRAA in patients over 70 years has not been determined. Clinical correlation is essential. Performed By: #### L 500.4050, L501.2450, L100.0100 #### [facility] [address] [place], [address] EST GFR - AA 78 mL/min Normal >60 [facility] Comment on above: Result Comment: Afri can [place] GFR Calc Performed By: #### L 500.4050, L501.2450, L100.0100 #### [facility] [address] [place], [address] GAP 3 Low 5-15 [facility] Comment on above: Performed By: #### L 500.4050, L501.2450, L100.0100 #### [facility] [address] [place], [address] GFR/1.73 sq M.predicted among non-blacks MDRD (S/P/Bld) [Vol rate/Area] 65 mL/min/{1.73_m2} Normal >60 [facility] Comment on above: Result Comment: Non- GFR Calc Performed By: #### L 500.4050, L501.2450, L100.0100 #### [facility] [address] [place], [address] Globulin (S) [Mass/Vol] 3.4 g/dL Normal 2.2-4.2 [facility] Comment on above: Performed By: #### L 500.4050, L501.2450, L100.0100 #### [facility] [address] [place], [address] Glucose [Mass/Vol] 100 mg/dL Normal 74-106 [facility] Comment on above: Result Comment: Fast ing Glucose result from 100 to 125 mg/dL suggests IMPAIRED HOMEOSTASIS per A.D.A. criteria. Performed By: #### L 500.4050, L501.2450, L100.0100 #### [facility] [address] [place], [address] Potassium [Moles/Vol] 4.0 mmol/L Normal 3.5-5.1 [facility] Comment on above: Performed By: #### L 500.4050, L501.2450, L100.0100 #### [facility] [address] [place], [address] Sodium [Moles/Vol] 138 mmol/L Normal 136-145 [facility] Comment on above: Performed By: #### L 500.4050, L501.2450, L100.0100 #### [facility] [address] [place], [address] T PROT 6.6 g/dL Normal 6.4-8.2 [facility] Comment on above: Performed By: #### L 500.4050, L501.2450, L100.0100 #### [facility] [address] [place], [address] Urea nitrogen [Mass/Vol] 10 mg/dL Normal 7-18 [facility] Comment on above: Performed By: #### L 500.4050, L501.2450, L100.0100 #### [facility] [address] [place], [address] Lipid Profileon 07-19-2024 Cholesterol [Mass/Vol] 210 mg/dL High 200 [facility] Comment on above: Result Comment: <200 mg/dL Desirable 200-240 mg/dL Borderline >240 mg/dL High Risk Performed By: #### L 500.4050, L501.2450, L100.0100 #### [facility] [address] [place], [address] Cholesterol in HDL [Mass/Vol] 114 mg/dL Normal [facility] Comment on above: Result Comment: The drugs N-Acetylcysteine and Metamizole may falsely depress this assay. Reference Range HDL <40 mg/dL Low HDL Cholesterol HDL >or= 60 mg/dL High HDL Cholesterol Performed By: #### L 500.4050, L501.2450, L100.0100 #### [facility] [address] [place], [address] Cholesterol in LDL [Mass/Vol] 71 mg/dL Normal 0-130 [facility] Comment on above: Performed By: #### L 500.4050, L501.2450, L100.0100 #### [facility] [address] [place], [address] Cholesterol in VLDL [Mass/Vol] 25 mg/dL Normal 5-40 [facility] Comment on above: Performed By: #### L 500.4050, L501.2450, L100.0100 #### [facility] [address] [place], [address] Triglyceride [Mass/Vol] 124 mg/dL Normal [facility] Comment on above: Result Comment: The drugs N-Acetylcysteine and Metamizole may falsely depress this assay. Serum Triglycerides Reference Interval Normal <150 mg/dL Borderline high 150 - 199 mg/dL High 200 - 499 mg/dL Very High > or = 500 mg/dL Performed By: #### L 500.4050, L501.2450, L100.0100 #### [facility] [address] [place], [address] Thyroid Stim Hormone (TSH)on 07-19-2024 TSH 1.170 uIU/mL Normal 0.358-3.74 0 [facility] Comment on above: Performed By: #### L 500.4050, L501.2450, L100.0100 #### [facility] [address], [address] MRA HEAD W/O CONTRASTon -0 MRA HEAD W/O CONTRAST ORIGINAL EXAMINATION: MRA OF THE HEAD WITHOUT CONTRAST 06/08/2024 9:50 am TECHNIQUE: MRA of the head was performed utilizing [id number] imaging with MIP images. No intravenous contrast [...] 06/08/2024 10:06:50 AM Ordering Provider: BUNNY YO [facility] MRA NECK W/O CONTRASTon MRA NECK [...] 06/08/2024 10:07:33 AM Ordering Provider: BUNNY YO [facility] MRI BRAIN W/ + W/O CONTRASTo [...] 9:05:45 AM Ordering Provider: BUNNY YO Normal [facility] Telephone Encounteron 2023 Diamond Sander Authentication Interface Message Text Called patient, 3 identifiers obtained. Patient was unable to talk at this time. Instructed patient to call [facility] at [phone]. Asked patient to reference #[phone] when calling back to our office. Ok to relay message below from Anamaria Guerrero RN. Normal [facility] Telephone Encounteron 2023 Diamond Sander Authentication Interface Message Text Unable to leave a message, voicemail is full. If patient calls back please ask the need for syringes, please encourage patient to keep 02/24/24 appt. Thank you. Normal [facility] Telephone Encounteron 2023 Diamond Sander Authentication Interface Message Text Patient was identified [...] (Arrive by 12:50 PM) Randall Hodgson MD [facility] Normal [facility] Telephone Encounteron 2023 Diamond Sander Authentication Interface Message Text OARRS reviewed. This is the last prescription that I will refill on behalf of this patietn Normal [facility] CBC W Auto Differential pane l (Bld)on 12-01-2023 Basophils (Bld) [#/Vol] 10*3/uL Normal <0.11 [facility] Comment on above: Order Comment: Speci men Type: BLOOD SPECIMENOrdering Facility: [facility] Address: [address] [place] [address] Performed By: #### 5 7021-8 ####[facility] LABIA [id number] [place] [address] [place] Basophils/100 WBC (Bld) 0.4 % Normal [facility] Comment on above: Order Comment: Speci men Type: BLOOD SPECIMENOrdering Facility: [facility] Address: [address] [place] [address] Performed By: #### 5 7021-8 ####[facility] LABCLIA [id number] [place] [address] [place] Differential cell count method Nom (Bld) Auto Normal [facility] Comment on above: Order Comment: Speci men Type: BLOOD SPECIMENOrdering Facility: [facility] Address: [address] [place] [address] Performed By: #### 5 7021-8 ####[facility] LABCLIA [id number] [place] [address] [place] Eosinophils (Bld) [#/Vol] 0.07 10*3/uL Normal <0.46 [facility] Comment on above: Order Comment: Speci men Type: BLOOD SPECIMENOrdering Facility: [facility] Address: [address] [place] [address] Performed By: #### 5 7021-8 ####[facility] LABCLIA [id number] [place] [address] [place] Eosinophils/100 WBC (Bld) 1.3 % Normal [facility] Comment on above: Order Comment: Speci men Type: BLOOD SPECIMENOrdering Facility: [facility] Address: [address] [place] [address] Performed By: #### 5 7021-8 ####[facility] LABCLIA [id number] [place] [address] [place] Erythrocyte distribution width (RBC) [Ratio] 18.6 % High 11.5-15.0 [facility] Comment on above: Order Comment: Speci men Type: BLOOD SPECIMENOrdering Facility: [facility] Address: [address] [place] [address] Performed By: #### 5 7021-8 ####[facility] LABCLIA [id number] [place] [address] [place] Hematocrit (Bld) [Volume fraction] 35.9 % Low 36.0-46.0 [facility] Comment on above: Order Comment: Speci men Type: BLOOD SPECIMENOrdering Facility: [facility] Address: [address] [place] [address] Performed By: #### 5 7021-8 ####[facility] LABCLIA [id number] [place] [address] [place] Hemoglobin (Bld) [Mass/Vol] 11.4 g/dL Low 11.5-15.5 [facility] Comment on above: Order Comment: Speci men Type: BLOOD SPECIMENOrdering Facility: [facility] Address: [address] [place] [address] Performed By: #### 5 7021-8 ####[facility] LABCLIA [id number] [place] [address] [place] Immature granulocytes (Bld) [#/Vol] 10*3/uL Normal <0.10 [facility] Comment on above: Order Comment: Speci men Type: BLOOD SPECIMENOrdering Facility: [facility] Address: [address] [place] [address] Performed By: #### 5 7021-8 ####[facility] LABCLIA [id number] [place] [address] [place] Immature granulocytes/100 WBC (Bld) 0.2 % Normal [facility] Comment on above: Order Comment: Speci men Type: BLOOD SPECIMENOrdering Facility: [facility] Address: [address] [place] [address] Performed By: #### 5 7021-8 ####[facility] LABCLIA [id number] [place] [address] [place] Lymphocytes (Bld) [#/Vol] 2.50 10*3/uL Normal 1.00-4.00 [facility] Comment on above: Order Comment: Speci men Type: BLOOD SPECIMENOrdering Facility: [facility] Address: [address] [place] [address] Performed By: #### 5 7021-8 ####[facility] LABCLIA [id number] [place] [address] [place] Lymphocytes/100 WBC (Bld) 47.8 % Normal [facility] Comment on above: Order Comment: Speci men Type: BLOOD SPECIMENOrdering Facility: [facility] Address: [address] [place] [address] Performed By: #### 5 7021-8 ####[facility] LABCLIA [id number] [place] [address] [place] MCH (RBC) [Entitic mass] 23.4 pg Low 26.0-34.0 [facility] Comment on above: Order Comment: Speci men Type: BLOOD SPECIMENOrdering Facility: [facility] Address: [address] [place] [address] Performed By: #### 5 7021-8 ####[facility] LABIA [id number] [place] [address] [place] MCHC (RBC) [Mass/Vol] 31.8 g/dL Normal 30.5-36.0 [facility] Comment on above: Order Comment: Speci men Type: BLOOD SPECIMENOrdering Facility: [facility] Address: [address] [place] [address] Performed By: #### 5 7021-8 ####[facility] LABIA [id number] [place] [address] [place] MCV (RBC) [Entitic vol] 73.6 fL Low 80.0-100.0 [facility] Comment on above: Order Comment: Speci men Type: BLOOD SPECIMENOrdering Facility: [facility] Address: [address] [place] [address] Performed By: #### 5 7021-8 ####[facility] [id number] [place] [address] [place] Monocytes (Bld) [#/Vol] 0.39 10*3/uL Normal <0.87 [facility] Comment on above: Order Comment: Speci men Type: BLOOD SPECIMENOrdering Facility: [facility] Address: [address] [place] [address] Performed By: #### 5 7021-8 ####[facility] LABIA [id number] [place] [address] [place] Monocytes/100 WBC (Bld) 7.5 % Normal [facility] Comment on above: Order Comment: Speci men Type: BLOOD SPECIMENOrdering Facility: [facility] Address: [address] [place] [address] Performed By: #### 5 7021-8 ####[facility] LABCLIA [id number] [place] [address] [place] Neutrophils (Bld) [#/Vol] 2.24 10*3/uL Normal 1.45-7.50 [facility] Comment on above: Order Comment: Speci men Type: BLOOD SPECIMENOrdering Facility: [facility] Address: [address] [place] [address] Performed By: #### 5 7021-8 ####[facility] LABCLIA [id number] [place] [address] [place] Neutrophils/100 WBC (Bld) 42.8 % Normal [facility] Comment on above: Order Comment: Speci men Type: BLOOD SPECIMENOrdering Facility: [facility] Address: [address] [place] [address] Performed By: #### 5 7021-8 ####[facility] LABCLIA [id number] [place] [address] [place] Nucleated RBC (Bld) [#/Vol] 0.02 10*3/uL High <0.01 [facility] Comment on above: Order Comment: Speci men Type: BLOOD SPECIMENOrdering Facility: [facility] Address: [address] [place] [address] Performed By: #### 5 7021-8 ####[facility] LABCLIA [id number] [place] [address] [place] Nucleated RBC/100 WBC (Bld) [Ratio] 0.4 /100 WBC Normal [facility] Comment on above: Order Comment: Speci men Type: BLOOD SPECIMENOrdering Facility: [facility] Address: [address] [place] [address] Performed By: #### 5 7021-8 ####[facility] LABCLIA [id number] [address] [address] [place] Platelet mean volume (Bld) [Entitic vol] 9.0 fL Normal 9.0-12.7 [facility] Comment on above: Order Comment: Speci men Type: BLOOD SPECIMENOrdering Facility: [facility] Address: [address] [place] [address] Performed By: #### 5 7021-8 ####[facility] LABCLIA [id number] [place] [address] [place] Platelets (Bld) [#/Vol] 383 10*3/uL Normal 150-400 [facility] Comment on above: Order Comment: Speci men Type: BLOOD SPECIMENOrdering Facility: [facility] Address: [address] [place] [address] Performed By: #### 5 7021-8 ####[facility] LABCLIA [id number] [place] [address] [place] RBC (Bld) [#/Vol] 4.88 10*6/uL Normal 3.90-5.20 [facility] Comment on above: Order Comment: Speci men Type: BLOOD SPECIMENOrdering Facility: [facility] Address: [address] [place] [address] Performed By: #### 5 7021-8 ####[facility] LABIA [id number] [place] [address] [place] WBC (Bld) [#/Vol] 5.23 10*3/uL Normal 3.70-11.00 [facility] Comment on above: Order Comment: Speci men Type: BLOOD SPECIMENOrdering Facility: [facility] Address: [address] [place] [address] Performed By: #### 5 7021-8 ####[facility] LABIA [id number] [place] [id number] [place] Comprehensive metabolic 2000 panelon 12-01-2023 Albumin [Mass/Vol] 4.0 g/dL Normal 3.9-4.9 [facility] Comment on above: Order Comment: Speci men Type: BLOOD SPECIMENOrdering Facility: [facility] Address: [address] [place], [place] [address] Performed By: #### 2 4323-8, 66800-7, 66705-6, 3016-3 ####[facility] LABCLIA [id number] [place] [address] [place] ALP [Catalytic activity/Vol] 105 U/L Normal 34-123 [facility] Comment on above: Order Comment: Speci men Type: BLOOD SPECIMENOrdering Facility: [facility] Address: [address] [place] [address] Performed By: #### 2 4323-8, 70925-9, 50150-5, 3016-3 ####[facility] LABCLIA [id number] [place] [address] [place] ALT [Catalytic activity/Vol] 10 U/L Normal 7-38 [facility] Comment on above: Order Comment: Speci men Type: BLOOD SPECIMENOrdering Facility: [facility] Address: [address] [place] [address] Performed By: #### 2 4323-8, 79623-8, 88413-6, 3016-3 ####[facility] LABCLIA [id number] [place] [id number] [place] Anion gap [Moles/Vol] 13 mmol/L Normal 9-18 [facility] Comment on above: Order Comment: Speci men Type: BLOOD SPECIMENOrdering Facility: [facility] Address: [address] [place] [address] Performed By: #### 2 4323-8, 52189-7, 55973-2, 3016-3 ####[facility] LABCLIA [id number] [place] [id number] [place] AST [Catalytic activity/Vol] 20 U/L Normal 13-35 [facility] Comment on above: Order Comment: Speci men Type: BLOOD SPECIMENOrdering Facility: [facility] Address: [address] [place] [address] Performed By: #### 2 4323-8, 78020-3, 79403-7, 3016-3 ####[facility] LABCLIA [id number] [place] [address] [place] Bilirubin [Mass/Vol] 0.2 mg/dL Normal 0.2-1.3 [facility] Comment on above: Order Comment: Speci men Type: BLOOD SPECIMENOrdering Facility: [facility] Address: [address] [place] [address] Performed By: #### 2 4323-8, 92123-4, 65256-5, 3016-3 ####[facility] LABCLIA [id number] [place] [address] [place] Calcium [Mass/Vol] 9.6 mg/dL Normal 8.5-10.2 [facility] Comment on above: Order Comment: Speci men Type: BLOOD SPECIMENOrdering Facility: [facility] Address: [address] [place] [address] Performed By: #### 2 4323-8, 76519-2, 91215-2, 3016-3 ####[facility] LABCLIA [id number] [place] [address] [place] Chloride [Moles/Vol] 102 mmol/L Normal 97-105 [facility] Comment on above: Order Comment: Speci men Type: BLOOD SPECIMENOrdering Facility: [facility] Address: [address] [place] [address] Performed By: #### 2 4323-8, 13315-5, 05267-1, 3016-3 ####[facility] LABCLIA [id number] [place] [address] [place] CO2 [Moles/Vol] 21 mmol/L Low 22-30 [facility] Comment on above: Order Comment: Speci men Type: BLOOD SPECIMENOrdering Facility: [facility] Address: [address] [place] [address] Performed By: #### 2 4323-8, 70669-2, 54320-1, 3016-3 ####[facility] LABCLIA [id number] [place] [address] [place] Creatinine [Mass/Vol] 0.94 mg/dL Normal 0.58-0.96 [facility] Comment on above: Order Comment: Speci men Type: BLOOD SPECIMENOrdering Facility: [facility] Address: [address] [place] [address] Performed By: #### 2 4323-8, 41855-1, 96953-0, 3016-3 ####[facility] LABIA [id number] [place] [address] [place] Creatinine and Glomerular filtration rate.predicted panel (S/P/Bld) 68 mL/min/1.73m??? Normal >=60 [facility] Comment on above: Order Comment: Speci men Type: BLOOD SPECIMENOrdering Facility: [facility] Address: [address] [place] [address] Result Comment: Kelley mated Glomerular Filtration Rate [...] actual GFR. Performed By: #### 2 4323-8, 53867-1, 77900-3, 3016-3 ####[facility] LABCLIA [id number] [place] [id number] [place] Glucose [Mass/Vol] 111 mg/dL High 74-99 [facility] Comment on above: Order Comment: Speci men Type: BLOOD SPECIMENOrdering Facility: [facility] Address: [address] [place] [address] Result Comment: The [place] Diabetes Association (ADA) provides guidance for cutoff [...] Standards of Medical Care in Diabetes 2016, [place] [employer]. Diabetes Care. 2016.39(Suppl 1). Performed By: #### 2 4323-8, 16654-4, 79349-0, 3016-3 ####[facility] LABCLIA [id number] [place] [address] [place] Potassium [Moles/Vol] 3.6 mmol/L Low 3.7-5.1 [facility] Comment on above: Order Comment: Winniei krish Type: BLOOD SPECIMENOrdering Facility: [facility] Address: [address] [place] [address] Performed By: #### 2 4323-8, 98571-3, 30940-0, 3016-3 ####[facility] LABCLIA [id number] [place] [id number] [place] Protein [Mass/Vol] 7.0 g/dL Normal 6.3-8.0 [facility] Comment on above: Order Comment: Winniei men Type: BLOOD SPECIMENOrdering Facility: [facility] Address: [address] [place] [address] Performed By: #### 2 4323-8, 50133-6, 67511-5, 3016-3 ####[facility] LABCLIA [id number] [place] [id number] [place] Sodium [Moles/Vol] 136 mmol/L Normal 136-144 [facility] Comment on above: Order Comment: Speci men Type: BLOOD SPECIMENOrdering Facility: [facility] Address: [address] [place], [place] [address] Performed By: #### 2 4323-8, 84009-9, 80078-1, 3016-3 ####[facility] LABCLIA [id number] [place] [id number] [place] Urea nitrogen [Mass/Vol] 9 mg/dL Normal 7-21 [facility] Comment on above: Order Comment: Speci men Type: BLOOD SPECIMENOrdering Facility: [facility] Address: [address] [place], [place] [address] Performed By: #### 2 4323-8, 85271-3, 67774-8, 3016-3 ####[facility] LABCLIA [id number] [place] [id number] [place] ED NOTEon 12-01-2023 ED NOTE HNO ID: [id number] Author: GRAY HECK RN Service: Emergency Medicine Author Type: Registered Nurse Type: ED Notes Filed: 12/01/2023 15:16 Note Text: Pt with 2 weeks of feeling faint, light headedness, cp, RAMIREZ, gradually becoming worse. Normal [facility] ED Triage Noteon 12-01-2023 ED Triage Note HNO ID: [id number] Author: RONNELL SERVIN MD Service: Emergency Medicine [...] needs to drive home before dark in [place]. Review results thus far, no severe abnormalities. Encouraged RTED at any time to continue her workup here, or closer to home at [facility] facilities such as [place] or [facility]. Clinical Impressions as of 12/01/23 1649 Chest pain, unspecified type SOB (shortness of breath) Tobacco use Primary hypertension Iron deficiency anemia, unspecified iron deficiency anemia type Thank you, Ronnell Servin MD [facility] [place] SIGNATURE: Ronnell Servin MD UPDATE for patient choosing to leave prior to being roomed and performance of a complete evaluation. Normal [facility] HIGH SENSITIVITY TROPONIN T (INITIAL)on 12-01-2023 Troponin T.cardiac High sensitivity method [Mass/Vol] 10 ng/L Normal <12 [facility] Comment on above: Order Comment: Edelmira ruthefrord Type: BLOOD SPECIMENOrdering Facility: [facility] Address: [address] [place] [address] Result Comment: When assessing risk for acute [...] 30 day MACE. Performed By: #### L [id number] ####[facility] LABCLIA [id number] [place] [address] [place] Magnesium SerPl-mCncon 11-30 Magnesium [Mass/Vol] 1.9 mg/dL Normal 1.7-2.3 [facility] Comment on above: Order Comment: Speci men Type: BLOOD SPECIMENOrdering Facility: [facility] Address: [address] [place] [address] Performed By: #### 2 4323-8, 40776-2, 15447-5, 3016-3 ####[facility] LABCLIA [id number] [place] [id number] [place] NT-proBNP SerPl-mCncon 11-30 Natriuretic peptide.B prohormone N-Terminal [Mass/Vol] 90 pg/mL Normal <125 [facility] Comment on above: Order Comment: Speci men Type: BLOOD SPECIMENOrdering Facility: [facility] Address: [address] [place] [address] Performed By: #### 2 4323-8, 78410-1, 88237-9, 3016-3 ####[facility] LABCLIA [id number] [place] [address] [place] TSH SerPl-aCncon 12-01-2023 TSH Qn 1.080 m[IU]/L Normal 0.270-4.20 0 [facility] Comment on above: Order Comment: Speci men Type: BLOOD SPECIMENOrdering Facility: [facility] Address: [address] [place] [address] Performed By: #### 2 4323-8, 13420-0, 63579-6, 3016-3 ####[facility] LABIA [id number] [place] [address] [place] XR CHEST 2V [...] Degenerative changes. IMPRESSION: No acute radiographic abnormality. Optical Glass Wet Inspector: NAIDA Transcribe Date/Time: Dec 01 2023 3:46P Dictated by : JOVANI ESCUDERO MD This examination was interpreted and the report reviewed and electronically signed by: ORESTES LI MD on Dec 01 2023 3:54PM EST [id number] Normal [facility] Absolute lymphocyte countOrd ered By: Charly Almonte on 11-16-2023 Lymphocytes Auto (Unsp spec) [#/Vol] 3.06 10*3/uL 0.83-4.51 [facility] Automated lymphocyte count a s percentage of total leukocytesOrdered By: Charly Almonte on 11-16-2023 Lymphocytes/100 WBC Auto (Unsp spec) 57.5 % 19-41 [facility] Basophil percentageOrdered B y: Charly Almonte on 11-16-2023 Basophils/100 WBC (Bld) 0.4 % 0-1 [facility] Chloride [Moles/Vol] 110 mmol/L 98-107 [facility] Eosinophils/100 WBC (Bld) 1.7 % 0-5 [facility] Glucose [Mass/Vol] 113 mg/dL 74-106 [facility] Comment on above: Fasting Glucose resu lt from 100 to 125 mg/dL suggests IMPAIRED HOMEOSTASIS per A.D.A. criteria. Hemoglobin (Bld) [Mass/Vol] 11.5 g/dL 12.0-15.0 [facility] Monocytes/100 WBC (Bld) 6.8 % 0-10 [facility] Neutrophils (Bld) [#/Vol] 1.8 10*3/uL 2.0-7.7 [facility] Neutrophils/100 WBC (Bld) 33.4 % 47-70 [facility] Potassium [Moles/Vol] 3.7 mmol/L 3.5-5.1 [facility] Sodium [Moles/Vol] 140 mmol/L 136-145 [facility] WBC (Bld) [#/Vol] 5.3 10*3/uL 4.4-11.0 [facility] Determination of erythrocyte mean corpuscular volume (MCV)Ordered By: Charly Almonte on 11-16-2023 MCV (RBC) [Entitic vol] 74.5 fL 81-99 [facility] Erythrocyte distribution wid th ratioOrdered By: Charly Almonte on 11-16-2023 Erythrocyte distribution width (RBC) [Ratio] 18.6 % 11.6-14.6 [facility] Erythrocyte distribution wid th standard deviationOrdered By: Charly Almonte on 11-16-2023 Erythrocyte distribution width (RBC) [Entitic vol] 49.6 fL 35.1-43.9 [facility] Hematocrit Auto (Bld) [Volum e fraction]Ordered By: Charly Almonte on 11-16-2023 Hematocrit (Bld) [Volume fraction] 37.1 % 37-47 [facility] Immature granulocytes/100 WB C Auto (Bld)Ordered By: Charly Almonte on 11-16-2023 Immature granulocytes/100 WBC (Bld) 0.200 % 0.0-0.9 [facility] Comment on above: IG% - Immature Granu locytes (promyelocytes, myelocytes and metamyelocytes) > 1% indicates that a LEFT SHIFT is Present. Laboratory - Chemistry and C hemistry - challengeOrdered By: Charly Almonte on 11-16-2023 CO2 [Moles/Vol] 25.0 mmol/L 21.0-32.0 [facility] Urea nitrogen/Creatinine [Mass ratio] 14.4 mg/mg 10-20 [facility] Laboratory - Hematology and Cell countsOrdered By: Charly Almonte on 11-16-2023 MCH (RBC) [Entitic mass] 23.1 pg 27.0-32.0 [facility] MCHC (RBC) [Mass/Vol] 31.0 g/dL 32-36 [facility] Nucleated RBC/100 WBC (Bld) [Ratio] 0 % 0-5 [facility] Platelet mean volume (Bld) [Entitic vol] 9.2 fL 6.2-12.0 [facility] Platelets (Bld) [#/Vol] 396 10*3/uL 150-450 [facility] Laboratory - Microbiology an d Antimicrobial susceptibilityOrdered By: Charly Almonte on 11-16-2023 SARS-CoV-2 (COVID-19) RNA BISI+probe Ql (Unsp spec) [facility] No Panel InformationOrdered By: Charly Almonte on 11-16-2023 Troponin I High Sensitivity 28 pg/mL 3.0-54.0 [facility] Comment on above: Please Note: New Sary t Units and Gender Specific Reference Ranges. For more information see Policy Stat Procedure [facility] High Sensitivity Troponin (TNIH) and attachments. D-Dimer Quantitative (PE/DVT) 0.37 FEU/ug/m 0.27-0.49 [facility] Comment on above: NORMAL D-Dimer level (<0.50) indicates no DVT or PE. Estimated Creatinine Clearance Calc 51.83 ml/min [facility] Estimated GFR (MDRD) Amer 69 mL/min >60 [facility] Comment on above: GFR Calc Estimated GFR (MDRD) Non-Af Amer 57 mL/min >60 [facility] Comment on above: Non- GFR Calc RBC Auto (Bld) [#/Vol]Ordere d By: Charly Almonte on 11-16-2023 RBC (Bld) [#/Vol] 4.98 10*6/uL 4.2-5.4 [facility] Serum or plasma calcium angela urement (mass/volume)Ordered By: Charly Almonte on 11-16-2023 Calcium [Mass/Vol] 9.3 mg/dL 8.5-10.1 [facility] Serum or plasma creatinine m easurement (mass/volume)Ordered By: Charly Almonte on 11-16-2023 Creatinine [Mass/Vol] 1.04 mg/dL 0.55-1.02 [facility] Comment on above: The validity of the calculated GFR & GFRAA in patients over 70 years has not been determined. Clinical correlation is essential. 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 Normal [facility] Telephone Encounteron 2022 Diamond Sander Authentication Interface Message Text OARRS reviewed Normal [facility] Telephone Encounteron 2022 Diamond Sander Authentication Interface Message Text Care Gaps Scheduling Health Maintenence Due: Medicare AWV/PCP Visit: deferred Eye Exam: not due Foot Exam: not due Annual Bloodwork: active orders YOKO: not due Normal [facility] Absolute lymphocyte countOrd ered By: Blaise Tom on 03-23-2023 Lymphocytes Auto (Unsp spec) [#/Vol] 2.35 10*3/uL 0.83-4.51 [facility] Amorphous sediment detection in urine sediment by light microscopyOrdered By: Blaise Tom on 03-23-2023 Amorphous sediment LM Ql (Urine sed) 1+ URATE [facility] Basophil percentageOrdered B y: Blaise Tom on 03-23-2023 Basophil percentage 0-5 SEEN /hpf 0-5 [facility] Basophils/100 WBC (Bld) 0.4 % 0-1 [facility] Bilirubin [Mass/Vol] 0.20 mg/dL 0.20-1.00 [facility] Comment on above: For patients on eltr ombopag therapy, use of Dimension Purcell TBIL is not recommended. Chloride [Moles/Vol] 109 mmol/L 98-107 [facility] Eosinophils/100 WBC (Bld) 2.0 % 0-5 [facility] Glucose [Mass/Vol] 85 mg/dL 74-106 [facility] Neutrophils (Bld) [#/Vol] 1.8 10*3/uL 2.0-7.7 [facility] Neutrophils/100 WBC (Bld) 37.9 % 47-70 [facility] Potassium [Moles/Vol] 4.0 mmol/L 3.5-5.1 [facility] Protein [Mass/Vol] 6.7 g/dL 6.4-8.2 [facility] Sodium [Moles/Vol] 140 mmol/L 136-145 [facility] WBC (Bld) [#/Vol] 4.6 10*3/uL 4.4-11.0 [facility] Bilirubin Test strip Ql (U)O rdered By: Blaise Tom on 03-23-2023 Bilirubin Ql (U) Negative Negative [facility] Blood erythrocytes count (nu mber/volume)Ordered By: Blaise Tom on 03-23-2023 RBC (Bld) [#/Vol] 4.77 10*6/uL 4.2-5.4 [facility] Blood hemoglobin measurement (mass/volume)Ordered By: Blaise Tom on 03-23-2023 Hemoglobin (Bld) [Mass/Vol] 11.5 g/dL 12.0-15.0 [facility] Blood lymphocytes/100 leukoc ytesOrdered By: Blaise Tom on 03-23-2023 Lymphocytes/100 WBC (Bld) 51.0 % 19-41 [facility] Blood manual differential co mment interpretation (narrative result)Ordered By: Blaise Tom on 03-23-2023 Manual differential comment Ryan (Bld) [Interp] See comment [facility] Comment on above: 1+ ANISOCYTOSIS Blood monocytes/100 leukocyt esOrdered By: Blaise Tom on 03-23-2023 Monocytes/100 WBC (Bld) 8.7 % 0-10 [facility] Blood platelet mean volumeOr dered By: Blaise Tom on 03-23-2023 Platelet mean volume (Bld) [Entitic vol] 9.1 fL 6.2-12.0 [facility] Determination of erythrocyte mean corpuscular volume (MCV)Ordered By: Blaise Tom on 03-23-2023 MCV (RBC) [Entitic vol] 77.8 fL 81-99 [facility] Hematocrit Auto (Bld) [Volum e fraction]Ordered By: Blaise Tom on 03-23-2023 Hematocrit (Bld) [Volume fraction] 37.1 % 37-47 [facility] Ketones Test strip Ql (U)Ord ered By: Blaise Tom on 03-23-2023 Ketones Ql (U) 15 mg/dl Negative [facility] Laboratory - Chemistry and C hemistry - challengeOrdered By: Blaise Tom on 03-23-2023 ALP [Catalytic activity/Vol] 92 U/L 45-117 [facility] ALT [Catalytic activity/Vol] 22 U/L 13-56 [facility] CO2 [Moles/Vol] 24.0 mmol/L 21.0-32.0 [facility] Globulin (S) [Mass/Vol] 3.5 g/dL 2.2-4.2 [facility] Lipase [Catalytic activity/Vol] 38 U/L 13-75 [facility] Comment on above: Please note:LIPASE r evised reference range effective 22. New Lipase methodology. Expected to produce lower values than the previous assay method. NEW Reference Range: 13 - 75 U/L Urea nitrogen/Creatinine [Mass ratio] 17.0 mg/mg 10-20 [facility] Laboratory - Hematology and Cell countsOrdered By: Blaise Tom on 03-23-2023 Erythrocyte distribution width (RBC) [Entitic vol] 56.7 fL 35.1-43.9 [facility] Erythrocyte distribution width (RBC) [Ratio] 20.6 % 11.6-14.6 [facility] Immature granulocytes/100 WBC (Bld) 0.000 % 0.0-0.9 [facility] Comment on above: IG% - Immature Granu locytes (promyelocytes, myelocytes and metamyelocytes) > 1% indicates that a LEFT SHIFT is Present. MCH (RBC) [Entitic mass] 24.1 pg 27.0-32.0 [facility] Nucleated RBC/100 WBC (Bld) [Ratio] 0 % 0-5 [facility] MCHC Auto (RBC) [Mass/Vol]Or dered By: Blaise Tom on 03-23-2023 MCHC (RBC) [Mass/Vol] 31.0 g/dL 32-36 [facility] Mucus LM Ql (Urine sed)Order ed By: Blaise Tom on 03-23-2023 Mucus Ql (Urine sed) 0 SEEN /hpf [facility] Nitrite Test strip Ql (U)Ord ered By: Blaise Tom on 03-23-2023 Nitrite Ql (U) Negative Negative [facility] No Panel InformationOrdered By: Blaise Tom on 03-23-2023 Estimated Creatinine Clearance Calc 50.85 ml/min [facility] Estimated GFR (MDRD) Amer 67 mL/min >60 [facility] Comment on above: GFR Calc Estimated GFR (MDRD) Non-Af Amer 56 mL/min >60 [facility] Comment on above: Non- GFR Calc Platelets bldOrdered By: Darwin Tom on 03-23-2023 Platelets (Bld) [#/Vol] 225 10*3/uL 150-450 [facility] Protein Test strip Ql (U)Ord ered By: Blaise Tom on 03-23-2023 Protein Ql (U) 30 mg/dl Negative [facility] Serum or plasma albumin angela urement (mass/volume)Ordered By: Blaise Tom on 03-23-2023 Albumin [Mass/Vol] 3.2 g/dL 3.2-5.0 [facility] Serum or plasma albumin/glob ulin mass ratioOrdered By: Blaise Tom on 03-23-2023 Albumin/Globulin [Mass ratio] 0.9 {ratio} 0.9-2.4 [facility] Serum or plasma calcium angela urement (mass/volume)Ordered By: Blaise Tom on 03-23-2023 Calcium [Mass/Vol] 9.1 mg/dL 8.5-10.1 [facility] Serum or plasma creatinine m easurement (mass/volume)Ordered By: Blaise Tom on 03-23-2023 Creatinine [Mass/Vol] 1.06 mg/dL 0.55-1.02 [facility] Comment on above: The validity of the calculated GFR & GFRAA in patients over 70 years has not been determined. Clinical correlation is essential. Serum or plasma urea nitroge n measurement (mass/volume)Ordered By: Blaise Tom on 03-23-2023 Urea nitrogen [Mass/Vol] 18 mg/dL 7-18 [facility] Squamous epithelial cells de tection in urine sediment by light microscopyOrdered By: Blaise Tom on 03-23-2023 Epithelial cells.squamous LM Ql (Urine sed) 0-5 SEEN /hpf 5-10 [facility] Thin prep Papanicolaou smear with manual screeningOrdered By: Blaise Tom on 03-23-2023 Thin prep Papanicolaou smear with manual screening 17 U/L 15-37 [facility] Thin prep Papanicolaou smear with manual screening 7 5-15 [facility] Urine blood detectionOrdered By: Blaise Tom on 03-23-2023 RBC Ql (U) 10 /ul Negative [facility] RBC Ql (U) 0-5 SEEN /hpf 0-5 [facility] Urine clarityOrdered By: Darwin Tom on 03-23-2023 Clarity (U) Clear Clear [facility] Urine color determinationOrd ered By: Blaise Tom on 03-23-2023 Color (U) Yellow Yellow [facility] Urine glucose detectionOrder ed By: Blaise Tom on 03-23-2023 Glucose Ql (U) Normal mg/dl Normal [facility] Urine leukocyte esterase det ection by dipstickOrdered By: Blaise Tom on 03-23-2023 Leukocyte esterase Test strip Ql (U) 25 /ul Negative [facility] Urine pHOrdered By: Blaise ordaz on 03-23-2023 pH (U) 6.0 [pH] 5.0 - 8.0 [facility] Urine sediment bacteria coun t by microscopy (number/high power field)Ordered By: Blaise Tom on 03-23-2023 Bacteria LM.HPF (Urine sed) [#/Area] 0 /[HPF] None Seen [facility] Urine specific gravity measu rementOrdered By: Blaise Tom on 03-23-2023 Specific gravity (U) [Rel density] 1.020 1.002-1.03 0 [facility] Urobilinogen Auto test strip Ql (U)Ordered By: Blaise Tom on 03-23-2023 Urobilinogen Ql (U) 1 mg/dl Normal [facility] Telephone Encounteron 2022 Diamond Sander Authentication Interface Message Text Order pended for provider review AND signature. Requested Prescriptions Pending Prescriptions Disp Refills Syringe 23G X 1 3 ML MISC 12 Each 0 Si Syringe once a month. vitamin B-12 (CYANOCOBALAMIN) 1000 MCG/ML injection 12 Each 0 Sig: Inject 1 mL into the muscle once a month. Normal [facility] [employer] Authentication Interface Message Text Pharmacy requesting medication substitution. Medication not available to order: Cyanocobalamin 1000 MCG/ML KIT Recommended alternative medications: Pharmacy is requesting two separate prescriptions, one for the vitamin B injection solution and the other for the syringe to inject it. Prescribing provider's name: Hilton Johnson MD Pharmacy Name: [facility] Normal [facility] Telephone Encounteron 2022 Diamond Sander Authentication Interface Message Text Patient was identified [...] understanding with no further questions. Normal [facility] Diamond Sander Authentication Interface Message Text Prescribing a statin in response to the elevated cholesterol and total nonHDL cholesterol identified on her lipid panel realizing that the HDL is quite elevated and might indicate some degree of protection against CVD. Normal [facility] Addendum Noteon 03-09-2023 Diamond Sander Authentication Interface Message Text Addended by: NICHELLE HILLS on: 03/09/2023 02:14 PM Modules accepted: Orders Normal [facility] BASIC METABOLIC PANELon 08- Anion gap [Moles/Vol] 12 mmol/L Normal 10-20 [facility] Comment on above: Performed By: #### V ITB12, HDL, CH8, LUCIAN ####[facility] [id number] [place], [place], Calcium [Mass/Vol] 9.5 mg/dL Normal 8.4-10.4 [facility] Comment on above: Performed By: #### V ITB12, HDL, CH8, LUCIAN ####[facility] [id number] [place], [place], Chloride [Moles/Vol] 108 mmol/L Normal 97-111 [facility] Comment on above: Performed By: #### V ITB12, HDL, CH8, LUCIAN ####[facility] [id number] [place], CO2 [Moles/Vol] 25 mmol/L Normal 21-30 [facility] Comment on above: Performed By: #### V ITB12, HDL, CH8, LUCIAN ####[facility] [id number] [place], Creatinine [Mass/Vol] 1.05 mg/dL Normal 0.50-1.10 [facility] Comment on above: Performed By: #### V ITB12, HDL, CH8, LUCIAN ####[facility] [id number] [place], ESTIMATED GFR (CKD-EPI) 60 mL/min/1.73sqm Normal >=60 [facility] Comment on above: Result Comment: 2020 [...] Inclusion of Race in Diagnosing Kidney Disease. [place] Journal of Kidney Diseases 202;79(2):268-88.e1. 2. N Engl J Med 1 Vol. 385 Issue 19 Pages [phone] Performed By: #### V ITB12, HDL, CH8, LUCIAN ####[facility] [id number] [place], Glucose [Mass/Vol] 85 mg/dL Normal 80-116 [facility] Comment on above: Performed By: #### V ITB12, HDL, CH8, LUCIAN ####[facility] [id number] [place], Potassium [Moles/Vol] 4.1 mmol/L Normal 3.3-5.3 [facility] Comment on above: Performed By: #### V ITB12, HDL, CH8, LUCIAN ####[facility] [id number] [place], Sodium [Moles/Vol] 141 mmol/L Normal 135-148 [facility] Comment on above: Performed By: #### V ITB12, HDL, CH8, LUCIAN ####[facility] [id number] [place], Urea nitrogen [Mass/Vol] 16 mg/dL Normal 8-22 [facility] Comment on above: Performed By: #### V ITB12, HDL, CH8, LUCIAN ####[facility] [id number] [place], Basic metabolic 2000 panelon 03-09-2023 Anion [...] MDRD (S/P/Bld) [Vol rate/Area] 60 mL/min/{1.73_m2} - [facility] Comment on above: 2020 CKD EPI [...] Inclusion of Race in Diagnosing Kidney Disease. [place] Journal of Kidney Diseases 202;79(2):268-88.e1. 2. N Engl J Med 2020 Vol. 385 Issue 19 Pages [phone] Glucose [Mass/Vol] 85 mg/dL 80 - 116 [...] [#/Vol] 229 10*3/uL 150 - 400 K/uL [facility] RBC (Bld) [#/Vol] 4.87 10*6/uL [facility] WBC (Bld) [#/Vol] 4.2 10*3/uL Low 4.5 - 11.5 K/uL [facility] CBC WITH DIFFERENTIALon 08-0 Basophils (Bld) [#/Vol] 0.03 10*3/uL Normal 0.00-0.20 [facility] Comment on above: Performed By: ###KERI VILLATORO ####[facility] PATHOLOG[facility] [id number] [place], Basophils/100 WBC (Bld) 0.8 % Normal <=1.9 [facility] Comment on above: Performed By: ###KERI VILLATORO ####[facility] [id number] [place], Eosinophils (Bld) [#/Vol] 0.08 10*3/uL Normal 0.00-0.70 [facility] Comment on above: Performed By: #### KERI BEASLEY ####[facility] [id number] [place], Eosinophils/100 WBC (Bld) 2.0 % Normal 0.1-4.0 [facility] Comment on above: Performed By: #### KERI BEASLEY ####[facility] [id number] [place], Erythrocyte distribution width (RBC) [Ratio] 20.3 % High 11.5-14.5 [facility] Comment on above: Performed By: #### KERI BEASLEY ####[facility] PATH[facility] [id number] [place], Hematocrit (Bld) [Volume fraction] 37.7 % Normal 36.0-46.0 [facility] Comment on above: Performed By: ###KERI VILLATORO ####[facility] PATH[facility] [id number] [place], Hemoglobin (Bld) [Mass/Vol] 11.9 g/dL Low 12.0-15.0 [facility] Comment on above: Performed By: ###KERI VILLATORO ####[facility] [id number] [place], Lymphocytes (Bld) [#/Vol] 2.22 10*3/uL Normal 1.00-4.80 [facility] Comment on above: Performed By: #### KERI BEASLEY ####[facility] [id number] [place] [address], Lymphocytes/100 WBC (Bld) 53.0 % High 24.0-44.0 [facility] Comment on above: Performed By: ###KERI VILLATORO ####[facility] [id number] [place] [address], MCH (RBC) [Entitic mass] 24.5 pg Low 26.0-34.0 [facility] Comment on above: Performed By: ###KERI VILLATORO ####[facility] [id number] [place] [address], MCHC (RBC) [Mass/Vol] 31.6 g/dL Low 32.0-35.9 [facility] Comment on above: Performed By: ###KERI VILLATORO ####[facility] [id number] [place] [address], MCV (RBC) [Entitic vol] 78 fL Low 80-100 [facility] Comment on above: Performed By: ###KERI VILLATORO ####[facility] [id number] [place] [address], MONOCYTE DISTRIBUTION WIDTH Normal [facility] Comment on above: Performed By: ###KERI VILLATORO ####[facility] [id number] [place], Monocytes (Bld) [#/Vol] 0.29 10*3/uL Normal 0.20-1.00 [facility] Comment on above: Performed By: ###KERI VILLATORO ####[facility] [id number] [place] [address], [place], Monocytes/100 WBC (Bld) 7.0 % Normal 2.0-11.0 [facility] Comment on above: Performed By: ###KERI VILLATORO ####[facility] [id number] [place], Neutrophils (Bld) [#/Vol] 1.56 10*3/uL Normal 1.50-8.00 [facility] Comment on above: Performed By: #### KERI BEASLEY ####[facility] [id number] [place], Neutrophils/100 WBC (Bld) 37.3 % Normal 31.0-76.0 [facility] Comment on above: Performed By: ###KERI VILLATORO ####[facility] [id number] [place] [address], Platelet mean volume (Bld) [Entitic vol] 8.0 fL Normal 7.5-11.2 [facility] Comment on above: Performed By: ###KERI VILLATORO ####[facility] [id number] [place], Platelets (Bld) [#/Vol] 229 10*3/uL Normal 150-400 [facility] Comment on above: Performed By: #### KERI BEASLEY ####[facility] [id number] [place], RBC (Bld) [#/Vol] 4.87 10*6/uL Normal 4.00-5.20 [facility] Comment on above: Performed By: ###KERI VILLATORO ####[facility] [id number] [place], WBC (Bld) [#/Vol] 4.2 10*3/uL Low 4.5-11.5 [facility] Comment on above: Performed By: ###KERI VILLATORO ####[facility] [id number] [place], DARK BLUE TOP TUBE, BLOODon 08-08-2023 Extra Tube Done [facility] FERRITINon 03-09-2023 Ferritin [Mass/Vol] 12.2 ng/mL 10.3 - 219.0 ng/mL [facility] Interpretation and review of laboratory results Normal [facility] LUCIAN 12.2 ng/mL Normal 10.3-219.0 [facility] Comment on above: Performed By: #### V ITB12, HDL, CH8, LUCIAN ####[facility] [id number] [place], FULL LIPID PROFILEon 023 Cholesterol [Mass/Vol] 256 mg/dL High <200 Th e [facility] Comment on above: Performed By: #### V ITB12, HDL, CH8, LUCIAN ####[facility] [id number] [place] [address], Cholesterol in LDL [Mass/Vol] 175 mg/dL High <111 [facility] Comment on above: Performed By: #### V ITB12, HDL, CH8, LUCIAN ####[facility] [id number] [place] [address], Cholesterol.total/Chol esterol in HDL [Mass ratio] 3.66 {ratio} Normal <5.00 [facility] Comment on above: Performed By: #### V ITB12, HDL, CH8, LUCIAN ####[facility] [id number] [place] [address], HDL CHOL 70 mg/dL Normal >54 [facility] Comment on above: Performed By: #### V ITB12, HDL, CH8, LUCIAN ####[facility] [id number] [place], LDL/HDL 2.50 Normal <3.57 [facility] Comment on above: Performed By: #### V ITB12, HDL, CH8, LUCIAN ####[facility] [id number] [place], NON-HDL CHOLESTEROL 186 mg/dL High <130 [facility] Comment on above: Performed By: #### V ITB12, HDL, CH8, LUCIAN ####[facility] [id number] [place], [address] Triglyceride [Mass/Vol] 86 mg/dL Normal <151 [facility] Comment on above: Performed By: #### V ITB12, HDL, CH8, LUCIAN ####[facility] [id number] [place], [address] HEMOGLOBIN A1Con 03-09-2023 Glucose [Mass/Vol] 123 mg/dL Normal [facility] Comment on above: Performed By: #### H B A1C #### [facility] [address] [place], [address] HbA1c (Bld) [Mass fraction] 5.9 % High 4.0-5.6 [facility] Comment on above: Performed By: #### H B A1C #### [facility] [address] [place], [address] Lipid 1996 panelon 3 Cholesterol [Mass/Vol] 256 [...] Performed By: #### KERI BEASLEY ####[facility] [id number] [place], FRAGMENTED RBC Few Normal [facility] Comment on above: Performed By: #### KERI BEASLEY ####[facility] [id number] [place], HYPOCHROMASIA Slight Normal [facility] Comment on above: Performed By: #### KERI BEASLEY ####[facility] [id number] [place], MICROCYTOSIS Slight Normal [facility] Comment on above: Performed By: #### KERI BEASLEY ####[facility] [id number] [place], OVALOCYTES Few Normal [facility] Comment on above: Performed By: #### KERI BEASLEY ####[facility] [id number] [place], SPHEROCYTES Few Normal [facility] Comment on above: Performed By: #### KERI BEASLEY ####S PATHOLOG[facility] [id number] [place], No Panel Informationon 03-09 [facility] Progress Noteson 03-09-2023 Diamond Sander Authentication Interface Message Text Patient identified by name and date of . Blood obtained from arm. Normal [facility] Diamond [employer]ander Authentication Interface Message Text Date: 03/09/23 Morena Patton 63 year old, female [id number] CHIEF COMPLAINT: Chief Complaint Patient presents with [...] of breath. She recently developed a aspen macei taste in her mouth. Patient states that [...] about a week ago. She lives in [place] but came here today because viktoriya really knows me. She ran out of most of her medications and has not been taking them. She passed out last week and picked up some medications at that time. She is now on a heart monitor. She is due to see a coning machine operator when she turns in her monitor. She was in the ED on January 30 for abdominal pain. She was discharged on Carafate. She started taking it on 02/24. She was in pain the entire time up until starting to take it. Her pain is now improved but not resolved. She states that she needs to see a crown ironer operator and Neurologist and coning machine operator. ED Morena Patton is a 62 year [...] with use of omeprazole, lidocaine patches, and [id number] mg tylenol which she has been taking [...] content not included)... Normal [facility] Diamond Sander Authentication Interface Message Text Identification was verified [...] on above: Order Comment: <152 pg/mL - [id number] - 300 pg/mL- Insufficient>300 pg/mL - Sufficient Performed By: #### V ITB12, HDL, CH8, LUCIAN ####[facility] [id number] [place], [id number] VITAMIN D, 25-HYDROXYon 25-hydroxyvitamin D IA [Mass/Vol] 62 ng/mL 30 - 100 ng/mL [facility] Interpretation and review of laboratory results Normal [facility] Deficient : <20.0 ng /mL Insufficient : 20.0-29.9 ng/mL Sufficient : 30.0 - 100.0 ng/mL Potential Toxicity : >100.0 ng/mL [facility] Telephone Encounteron 2022 Diamond Sander Authentication Interface Message Text Patient is calling [...] Auto (Unsp spec) [#/Vol] 2.12 10*3/uL 0.83-4.51 [facility] Basophil percentageOrdered B y: Virginie Aguillon on 02-16-2023 Basophils/100 WBC (Bld) 0.8 % 0-1 [facility] Chloride [Moles/Vol] 108 mmol/L 98-107 [facility] Eosinophils/100 WBC (Bld) 4.0 % 0-5 [facility] Glucose [Mass/Vol] 91 mg/dL 74-106 [facility] Neutrophils (Bld) [#/Vol] 0.9 10*3/uL 2.0-7.7 [facility] Neutrophils/100 WBC (Bld) 26.0 % 47-70 [facility] Potassium [Moles/Vol] 4.0 mmol/L 3.5-5.1 [facility] Sodium [Moles/Vol] 138 mmol/L 136-145 [facility] WBC (Bld) [#/Vol] 3.5 10*3/uL 4.4-11.0 [facility] Blood erythrocytes count (nu mber/volume)Ordered By: Virginie Aguillon on 02-16-2023 RBC (Bld) [#/Vol] 4.45 10*6/uL 4.2-5.4 [facility] Blood hemoglobin measurement (mass/volume)Ordered By: Virginie Aguillon on 02-16-2023 Hemoglobin (Bld) [Mass/Vol] 10.5 g/dL 12.0-15.0 [facility] Blood lymphocytes/100 leukoc ytesOrdered By: Virginie Aguillon on 02-16-2023 Lymphocytes/100 WBC (Bld) 60.1 % 19-41 [facility] Blood manual differential co mment interpretation (narrative result)Ordered By: Virginie Aguillon on 02-16-2023 Manual differential comment Ryan (Bld) [Interp] SCANNED [facility] Comment on above: NEUTROPENIA Blood monocytes/100 leukocyt esOrdered By: Virginie Aguillon on 02-16-2023 Monocytes/100 WBC (Bld) 8.8 % 0-10 [facility] Blood platelet mean volumeOr dered By: Virginie Aguillon on 02-16-2023 Platelet mean volume (Bld) [Entitic vol] 10.1 fL 6.2-12.0 [facility] Determination of erythrocyte mean corpuscular volume (MCV)Ordered By: Virginie Aguillon on 02-16-2023 MCV (RBC) [Entitic vol] 79.1 fL 81-99 [facility] Hematocrit Auto (Bld) [Volum e fraction]Ordered By: Virginie Aguillon on 02-16-2023 Hematocrit (Bld) [Volume fraction] 35.2 % 37-47 [facility] Laboratory - Chemistry and C hemistry - challengeOrdered By: Virginie Aguillon on 02-16-2023 CO2 [Moles/Vol] 25.0 mmol/L 21.0-32.0 [facility] Urea nitrogen/Creatinine [Mass ratio] 8.9 mg/mg 10-20 [facility] Laboratory - Hematology and Cell countsOrdered By: Virginie Aguillon on 02-16-2023 Erythrocyte distribution width (RBC) [Entitic vol] 52.3 fL 35.1-43.9 [facility] Erythrocyte distribution width (RBC) [Ratio] 18.6 % 11.6-14.6 [facility] Immature granulocytes/100 WBC (Bld) 0.300 % 0.0-0.9 [facility] Comment on above: IG% - Immature Granu locytes (promyelocytes, myelocytes and metamyelocytes) > 1% indicates that a LEFT SHIFT is Present. MCH (RBC) [Entitic mass] 23.6 pg 27.0-32.0 [facility] Nucleated RBC/100 WBC (Bld) [Ratio] 0 % 0-5 [facility] MCHC Auto (RBC) [Mass/Vol]Or dered By: Virginie Aguillon on 02-16-2023 MCHC (RBC) [Mass/Vol] 29.8 g/dL 32-36 [facility] Comment on above: Delta: 31.7 on 02/15-0600 No Panel InformationOrdered By: Virginie Aguillon on 02-16-2023 Estimated Creatinine Clearance Calc 48.13 ml/min [facility] Estimated GFR (MDRD) Amer 63 mL/min >60 [facility] Comment on above: GFR Calc Estimated GFR (MDRD) Non-Af Amer 52 mL/min >60 [facility] Comment on above: Non- GFR Calc Platelets bldOrdered By: Lucero Aguillon on 02-16-2023 Platelets (Bld) [#/Vol] 206 10*3/uL 150-450 [facility] Serum or plasma calcium angela urement (mass/volume)Ordered By: Virginie Aguillon on 02-16-2023 Calcium [Mass/Vol] 9.1 mg/dL 8.5-10.1 [facility] Serum or plasma creatinine m easurement (mass/volume)Ordered By: Virginie Aguillon on 02-16-2023 Creatinine [Mass/Vol] 1.12 mg/dL 0.55-1.02 [facility] Comment on above: The validity of the calculated GFR & GFRAA in patients over 70 years has not been determined. Clinical correlation is essential. Serum or plasma urea nitroge n measurement (mass/volume)Ordered By: Virginie Aguillon on 02-16-2023 Urea nitrogen [Mass/Vol] 10 mg/dL 02-16 [facility] Thin prep Papanicolaou smear with manual screeningOrdered By: Virginie Aguillon on 02-16-2023 Thin prep Papanicolaou smear with manual screening 5 5- [facility] Basophil percentageOrdered B y: Drew Solis on 02-15-2023 Basophil percentage 3.6 mg/dL 2.5-4.9 [facility] Bilirubin [Mass/Vol] 0.20 mg/dL 0.20-1.00 [facility] Comment on above: For patients on eltr ombopag therapy, use of Dimension Purcell TBIL is not recommended. Cholesterol [Mass/Vol] 196 mg/dL <200 [facility] Comment on above: <200 mg/dL Desirable 200-240 mg/dL Borderline >240 mg/dL High Risk Protein [Mass/Vol] 6.1 g/dL 6.4-8.2 [facility] Triglyceride [Mass/Vol] 141 mg/dL <199 [facility] Comment on above: The drugs N-Acetylcy steine and Metamizole may falsely depress this assay.Serum Triglycerides Reference Interval Normal <150 mg/dL Borderline high 150 - 199 mg/dL High 200 - 499 mg/dL Very High > or = 500 mg/dL Laboratory - Chemistry and C hemistry - challengeOrdered By: Drew Solis on 02-15-2023 ALP [Catalytic activity/Vol] 81 U/L 45-117 [facility] ALT [Catalytic activity/Vol] 15 U/L 13-56 [facility] Globulin (S) [Mass/Vol] 3.4 g/dL 2.2-4.2 [facility] Magnesium [Mass/Vol] 2.3 mg/dL 1.6-2.6 [facility] No Panel InformationOrdered By: Drew Solis on 02-15-2023 Thyroid Stimulating Hormone (TSH) 1.25 uIU/mL 0.358-3.74 [facility] Serum or plasma albumin angela urement (mass/volume)Ordered By: Drew Solis on 02-15-2023 Albumin [Mass/Vol] 2.7 g/dL 3.2-5.0 [facility] Serum or plasma albumin/glob ulin mass ratioOrdered By: Drew Solis on 02-15-2023 Albumin/Globulin [Mass ratio] 0.8 {ratio} 0.9-2.4 [facility] Serum or plasma cholesterol in HDL measurement (mass/volume)Ordered By: Drew Solis on 02-15-2023 Cholesterol in HDL [Mass/Vol] 92 mg/dL >40 [facility] Comment on above: The drugs N-Acetylcy steine and Metamizole may falsely depress this assay. Reference Range HDL <40 mg/dL Low HDL Cholesterol HDL >or= 60 mg/dL High HDL Cholesterol Serum or plasma cholesterol in VLDL measurement (mass/volume)Ordered By: Drew Solis on 02-15-2023 Cholesterol in VLDL [Mass/Vol] 28 mg/dL 5-40 [facility] Serum or plasma low density lipoprotein (LDL) cholesterol measurement (mass/volume)Ordered By: Drew Solis on 02-15-2023 Cholesterol in LDL [Mass/Vol] 76 mg/dL 0-130 [facility] Thin prep Papanicolaou smear with manual screeningOrdered By: Drew Solis on 02-15-2023 Thin prep Papanicolaou smear with manual screening 19 U/L 15-37 [facility] Iron measurement (mass/mass) Ordered By: Drew Solis on 02-14-2023 Iron (Unsp spec) [Mass/Mass] 23 ug/dL 50-170 [facility] Laboratory - Chemistry and C hemistry - challengeOrdered By: Jeniffer Campos on 02-14-2023 Cobalamin (Vitamin B12) [Mass/Vol] 199 pg/mL 211-911 [facility] No Panel InformationOrdered By: Drew Solis on 02-14-2023 Total Iron Binding Capacity 375 ug/dL 250-450 [facility] No Panel InformationOrdered By: Jeniffer Campos on 02-14-2023 Troponin I High Sensitivity 27 pg/mL 3.0-54.0 [facility] Comment on above: Please Note: New Sary t Units and Gender Specific Reference Ranges. For more information see Policy Stat Procedure Purcell High Sensitivity Troponin (TNIH) and attachments. Serum or plasma ferritin cortney surement (mass/volume)Ordered By: Drew Solis on 02-14-2023 Ferritin [Mass/Vol] 9 ng/mL 8-252 [facility] Serum or plasma folate measu rement (mass/volume)Ordered By: Jeniffer Campos on 02-14-2023 Folate [Mass/Vol] 7.40 ng/mL 3.1-55.4 [facility] Serum or plasma iron saturat ion measurement (mass fraction)Ordered By: Drew Solis on 02-14-2023 Iron saturation [Mass fraction] 6.1 % 15.0-55.0 [facility] Absolute lymphocyte countOrd ered By: Albert Carbone on 02-13-2023 Lymphocytes Auto (Unsp spec) [#/Vol] 1.92 10*3/uL 0.83-4.51 [facility] Basophil percentageOrdered B y: Albert Carbone on 02-13-2023 Potassium [Moles/Vol] 4.1 mmol/L 3.5-5.1 [facility] Basophils/100 WBC (Bld) 0.7 % 0-1 [facility] Chloride [Moles/Vol] 106 mmol/L 98-107 [facility] Eosinophils/100 WBC (Bld) 1.9 % 0-5 [facility] Glucose [Mass/Vol] 99 mg/dL 74-106 [facility] Neutrophils (Bld) [#/Vol] 1.7 10*3/uL 2.0-7.7 [facility] Neutrophils/100 WBC (Bld) 39.8 % 47-70 [facility] Sodium [Moles/Vol] 136 mmol/L 136-145 [facility] WBC (Bld) [#/Vol] 4.2 10*3/uL 4.4-11.0 [facility] Blood erythrocytes count (nu mber/volume)Ordered By: Albert Carbone on 02-13-2023 RBC (Bld) [#/Vol] 5.13 10*6/uL 4.2-5.4 [facility] Blood hemoglobin measurement (mass/volume)Ordered By: Albert Carbone on 02-13-2023 Hemoglobin (Bld) [Mass/Vol] 12.2 g/dL 12.0-15.0 [facility] Blood lymphocytes/100 leukoc ytesOrdered By: Albert Carbone on 02-13-2023 Lymphocytes/100 WBC (Bld) 46.3 % 19-41 [facility] Blood monocytes/100 leukocyt esOrdered By: Albert Carbone on 02-13-2023 Monocytes/100 WBC (Bld) 10.8 % 0-10 [facility] Blood platelet mean volumeOr dered By: Albert Carbone on 02-13-2023 Platelet mean volume (Bld) [Entitic vol] 9.8 fL 6.2-12.0 [facility] Determination of erythrocyte mean corpuscular volume (MCV)Ordered By: Albert Carbone on 02-13-2023 MCV (RBC) [Entitic vol] 75.8 fL 81-99 [facility] Hematocrit Auto (Bld) [Volum e fraction]Ordered By: Albert Carbone on 02-13-2023 Hematocrit (Bld) [Volume fraction] 38.9 % 37-47 [facility] Laboratory - Chemistry and C hemistry - challengeOrdered By: Jeniffer Campos on 02-13-2023 Magnesium [Mass/Vol] 2.0 mg/dL 1.6-2.6 [facility] Laboratory - Chemistry and C hemistry - challengeOrdered By: Albert Carbone on 02-13-2023 CO2 [Moles/Vol] 23.0 mmol/L 21.0-32.0 [facility] Urea nitrogen/Creatinine [Mass ratio] 11.3 mg/mg 10-20 [facility] Laboratory - Drug toxicology Ordered By: Jeniffer Campos on 02-13-2023 Amphetamines Ql (U) Negative <1000 ng/mL [facility] Benzodiazepines Ql (U) Negative < 200 ng/mL [facility] Cannabinoids Screen Ql (U) Positive < 50 ng/mL [facility] Cocaine Ql (U) Negative < 300 ng/mL [facility] Opiates Ql (U) Negative < 300 ng/mL [facility] Laboratory - Hematology and Cell countsOrdered By: Albert Carbone on 02-13-2023 Erythrocyte distribution width (RBC) [Entitic vol] 47.8 fL 35.1-43.9 [facility] Erythrocyte distribution width (RBC) [Ratio] 18.0 % 11.6-14.6 [facility] Immature granulocytes/100 WBC (Bld) 0.500 % 0.0-0.9 [facility] Comment on above: IG% - Immature Granu locytes (promyelocytes, myelocytes and metamyelocytes) > 1% indicates that a LEFT SHIFT is Present. MCH (RBC) [Entitic mass] 23.8 pg 27.0-32.0 [facility] Nucleated RBC/100 WBC (Bld) [Ratio] 0 % 0-5 [facility] MCHC Auto (RBC) [Mass/Vol]Or dered By: Albert Carbone on 02-13-2023 MCHC (RBC) [Mass/Vol] 31.4 g/dL 32-36 [facility] No Panel InformationOrdered By: Jeniffer Campos on 02-13-2023 Ethyl Alcohol Level < 3.0 mg/dL [facility] Comment on above: The serum:whole bloo d ethanol ratio is approximately 1.14and varies slightly with hematocrit. Medical Alcohol reference interval and critical value innon-tolerant individuals; 50 - 100 Impairment 100 Intoxication 100 - 250 Severe Poisoning 250 - 400 Deep/possible fatal coma MDMA (Ecstasy) Screen Negative < 500 ng/mL [facility] Urine Barbiturates Screen Negative < 200 ng/mL [facility] Urine Drug Screen Comment [facility] Comment on above: CONFIRMATORY TESTING [...] Urine Methadone Screen Negative < 300 ng/mL [facility] No Panel InformationOrdered By: Albert Carbone on 02-13-2023 Estimated Creatinine Clearance Calc 50.85 ml/min [facility] Estimated GFR (MDRD) Amer 67 mL/min >60 [facility] Comment on above: GFR Calc Estimated GFR (MDRD) Non-Af Amer 56 mL/min >60 [facility] Comment on above: Non- GFR Calc Troponin I High Sensitivity 26 pg/mL 3.0-54.0 [facility] Comment on above: Please Note: New Sary t Units and Gender Specific Reference Ranges. For more information see Policy Stat Procedure Purcell High Sensitivity Troponin (TNIH) and attachments. Platelets bldOrdered By: Didier Carbone on 02-13-2023 Platelets (Bld) [#/Vol] 237 10*3/uL 150-450 [facility] Serum or plasma calcium angela urement (mass/volume)Ordered By: Albert Carbone on 02-13-2023 Calcium [Mass/Vol] 9.3 mg/dL 8.5-10.1 [facility] Serum or plasma creatinine m easurement (mass/volume)Ordered By: Albert Carbone on 02-13-2023 Creatinine [Mass/Vol] 1.06 mg/dL 0.55-1.02 [facility] Comment on above: The validity of the calculated GFR & GFRAA in patients over 70 years has not been determined. Clinical correlation is essential. Serum or plasma urea nitroge n measurement (mass/volume)Ordered By: Albert Carbone on 02-13-2023 Urea nitrogen [Mass/Vol] 12 mg/dL 02-16 [facility] Thin prep Papanicolaou smear with manual screeningOrdered By: Albert Carbone on 02-13-2023 Thin prep Papanicolaou smear with manual screening 12-14 [facility] Urine phencyclidine (PCP) de tectionOrdered By: Jeniffer Campos on 02-13-2023 Phencyclidine Ql (U) Negative < 25 ng/mL [facility] Absolute lymphocyte countOrd ered By: Dr. Tom on 10-22-2022 Lymphocytes Auto (Unsp spec) [#/Vol] 2.07 10*3/uL 0.83-4.51 [facility] Basophil percentageOrdered B y: Dr. Tom on 10-22-2022 Basophil percentage 0-5 SEEN /hpf 0-5 [facility] Basophils/100 WBC (Bld) 0.6 % 0-1 [facility] Bilirubin [Mass/Vol] 0.30 mg/dL 0.20-1.00 [facility] Comment on above: For patients on eltr ombopag therapy, use of Dimension Purcell TBIL is not recommended. Chloride [Moles/Vol] 109 mmol/L 98-107 [facility] Eosinophils/100 WBC (Bld) 2.5 % 0-5 [facility] Glucose [Mass/Vol] 106 mg/dL 74-106 [facility] Comment on above: Fasting Glucose resu lt from 100 to 125 mg/dL suggests IMPAIRED HOMEOSTASIS per A.D.A. criteria. Neutrophils (Bld) [#/Vol] 2.2 10*3/uL 2.0-7.7 [facility] Neutrophils/100 WBC (Bld) 45.8 % 47-70 [facility] Potassium [Moles/Vol] 3.8 mmol/L 3.5-5.1 [facility] Protein [Mass/Vol] 7.0 g/dL 6.4-8.2 [facility] Sodium [Moles/Vol] 139 mmol/L 136-145 [facility] WBC (Bld) [#/Vol] 4.8 10*3/uL 4.4-11.0 [facility] Bilirubin Test strip Ql (U)O rdered By: Dr. Tom on 10-22-2022 Bilirubin Ql (U) Negative Negative [facility] Blood erythrocytes count (nu mber/volume)Ordered By: Dr. Tom on 10-22-2022 RBC (Bld) [#/Vol] 4.84 10*6/uL 4.2-5.4 [facility] Blood hemoglobin measurement (mass/volume)Ordered By: Dr. Tom on 10-22-2022 Hemoglobin (Bld) [Mass/Vol] 12.2 g/dL 12.0-15.0 [facility] Blood lymphocytes/100 leukoc ytesOrdered By: Dr. Tom on 10-22-2022 Lymphocytes/100 WBC (Bld) 43.4 % 19-41 [facility] Blood monocytes/100 leukocyt esOrdered By: Dr. Tom on 10-22-2022 Monocytes/100 WBC (Bld) 7.5 % 0-10 [facility] Blood platelet mean volumeOr dered By: Dr. Tom on 10-22-2022 Platelet mean volume (Bld) [Entitic vol] 9.1 fL 6.2-12.0 [facility] Determination of erythrocyte mean corpuscular volume (MCV)Ordered By: Dr. Tom on 10-22-2022 MCV (RBC) [Entitic vol] 77.9 fL 81-99 [facility] Hematocrit Auto (Bld) [Volum e fraction]Ordered By: Dr. Tom on 10-22-2022 Hematocrit (Bld) [Volume fraction] 37.7 % 37-47 [facility] Ketones Test strip Ql (U)Ord ered By: Dr. Tom on 10-22-2022 Ketones Ql (U) Negative Negative [facility] Laboratory - Chemistry and C hemistry - challengeOrdered By: Dr. Tom on 10-22-2022 ALP [Catalytic activity/Vol] 95 U/L 45-117 [facility] ALT [Catalytic activity/Vol] 15 U/L 13-56 [facility] CO2 [Moles/Vol] 22.0 mmol/L 21.0-32.0 [facility] Globulin (S) [Mass/Vol] 3.4 g/dL 2.2-4.2 [facility] Lipase [Catalytic activity/Vol] 182 U/L 73-393 [facility] Urea nitrogen/Creatinine [Mass ratio] 15.2 mg/mg 10-20 [facility] Laboratory - Hematology and Cell countsOrdered By: Dr. Tom on 10-22-2022 Erythrocyte distribution width (RBC) [Entitic vol] 47.2 fL 35.1-43.9 [facility] Erythrocyte distribution width (RBC) [Ratio] 17.1 % 11.6-14.6 [facility] Immature granulocytes/100 WBC (Bld) 0.200 % 0.0-0.9 [facility] Comment on above: IG% - Immature Granu locytes (promyelocytes, myelocytes and metamyelocytes) > 1% indicates that a LEFT SHIFT is Present. MCH (RBC) [Entitic mass] 25.2 pg 27.0-32.0 [facility] Nucleated RBC/100 WBC (Bld) [Ratio] 0 % 0-5 [facility] MCHC Auto (RBC) [Mass/Vol]Or dered By: Dr. Tom on 10-22-2022 MCHC (RBC) [Mass/Vol] 32.4 g/dL 32-36 [facility] Mucus LM Ql (Urine sed)Order ed By: Dr. Tom on 10-22-2022 Mucus Ql (Urine sed) 0 SEEN /hpf [facility] Nitrite Test strip Ql (U)Ord ered By: Dr. Tom on 10-22-2022 Nitrite Ql (U) Negative Negative [facility] No Panel InformationOrdered By: Dr. Tom on 10-22-2022 Estimated Creatinine Clearance Calc 55.16 ml/min [facility] Estimated GFR (MDRD) Amer 73 mL/min >60 [facility] Comment on above: GFR Calc Estimated GFR (MDRD) Non-Af Amer 61 mL/min >60 [facility] Comment on above: Non- GFR Calc Troponin I High Sensitivity 27 pg/mL 3.0-54.0 [facility] Comment on above: Please Note: New Sary t Units and Gender Specific Reference Ranges. For more information see Policy Stat Procedure Purcell High Sensitivity Troponin (TNIH) and attachments. Platelets bldOrdered By: Dr. Tom on 10-22-2022 Platelets (Bld) [#/Vol] 276 10*3/uL 150-450 [facility] Protein Test strip Ql (U)Ord ered By: Dr. Tom on 10-22-2022 Protein Ql (U) 30 mg/dl Negative [facility] Serum or plasma albumin angela urement (mass/volume)Ordered By: Dr. Tom on 10-22-2022 Albumin [Mass/Vol] 3.6 g/dL 3.2-5.0 [facility] Serum or plasma albumin/glob ulin mass ratioOrdered By: Dr. Tom on 10-22-2022 Albumin/Globulin [Mass ratio] 1.1 {ratio} 0.9-2.4 [facility] Serum or plasma calcium angela urement (mass/volume)Ordered By: Dr. Tom on 10-22-2022 Calcium [Mass/Vol] 9.3 mg/dL 8.5-10.1 [facility] Serum or plasma creatinine m easurement (mass/volume)Ordered By: Dr. Tom on 10-22-2022 Creatinine [Mass/Vol] 0.99 mg/dL 0.55-1.02 [facility] Comment on above: The validity of the calculated GFR & GFRAA in patients over 70 years has not been determined. Clinical correlation is essential. Serum or plasma urea nitroge n measurement (mass/volume)Ordered By: Dr. Tom on 10-22-2022 Urea nitrogen [Mass/Vol] 15 mg/dL 7-18 [facility] Squamous epithelial cells de tection in urine sediment by light microscopyOrdered By: Dr. Tom on 10-22-2022 Epithelial cells.squamous LM Ql (Urine sed) 0-5 SEEN /hpf 5-10 [facility] Thin prep Papanicolaou smear with manual screeningOrdered By: Dr. Tom on 10-22-2022 Thin prep Papanicolaou smear with manual screening 16 U/L 15-37 [facility] Thin prep Papanicolaou smear with manual screening 8 5-15 [facility] Urine blood detectionOrdered By: Dr. Tom on 10-22-2022 RBC Ql (U) 150 /ul Negative [facility] RBC Ql (U) 0 SEEN /hpf 0-5 [facility] Urine clarityOrdered By: Dr. Tom on 10-22-2022 Clarity (U) Clear Clear [facility] Urine color determinationOrd ered By: Dr. Tom on 10-22-2022 Color (U) YELLOW Yellow [facility] Urine glucose detectionOrder ed By: Dr. Tom on 10-22-2022 Glucose Ql (U) Normal mg/dl Normal [facility] Urine leukocyte esterase det ection by dipstickOrdered By: Dr. Tom on 10-22-2022 Leukocyte esterase Test strip Ql (U) 500 /ul Negative [facility] Urine pHOrdered By: Dr. Porfirio li on 10-22-2022 pH (U) 7.0 [pH] 5.0 - 8.0 [facility] Urine sediment bacteria coun t by microscopy (number/high power field)Ordered By: Dr. Tom on 10-22-2022 Bacteria LM.HPF (Urine sed) [#/Area] 0 /[HPF] None Seen [facility] Urine specific gravity measu rementOrdered By: Dr. Tom on 10-22-2022 Specific gravity (U) [Rel density] 1.015 1.002-1.03 0 [facility] Urobilinogen Auto test strip Ql (U)Ordered By: Dr. Tom on 10-22-2022 Urobilinogen Ql (U) Normal mg/dl Normal [facility] Absolute lymphocyte countOrd ered By: Dr. Houston on 07-07-2022 Lymphocytes Auto (Unsp spec) [#/Vol] 2.12 10*3/uL 0.83-4.51 [facility] Basophil percentageOrdered B y: Dr. Houston on 07-07-2022 Basophils/100 WBC (Bld) 0.6 % 0-1 [facility] Bilirubin [Mass/Vol] 0.40 mg/dL 0.20-1.00 [facility] Comment on above: For patients on eltr ombopag therapy, use of Dimension Purcell TBIL is not recommended. Chloride [Moles/Vol] 101 mmol/L 98-107 [facility] Eosinophils/100 WBC (Bld) 1.5 % 0-5 [facility] Glucose [Mass/Vol] 100 mg/dL 74-106 [facility] Comment on above: Fasting Glucose resu lt from 100 to 125 mg/dL suggests IMPAIRED HOMEOSTASIS per A.D.A. criteria. Neutrophils (Bld) [#/Vol] 2.2 10*3/uL 2.0-7.7 [facility] Neutrophils/100 WBC (Bld) 45.8 % 47-70 [facility] Potassium [Moles/Vol] 3.9 mmol/L 3.5-5.1 [facility] Protein [Mass/Vol] 7.0 g/dL 6.4-8.2 [facility] Sodium [Moles/Vol] 134 mmol/L 136-145 [facility] WBC (Bld) [#/Vol] 4.7 10*3/uL 4.4-11.0 [facility] Blood erythrocytes count (nu mber/volume)Ordered By: Dr. Houston on 07-07-2022 RBC (Bld) [#/Vol] 4.94 10*6/uL 4.2-5.4 [facility] Blood hemoglobin measurement (mass/volume)Ordered By: Dr. Houston on 07-07-2022 Hemoglobin (Bld) [Mass/Vol] 13.1 g/dL 12.0-15.0 [facility] Blood lymphocytes/100 leukoc ytesOrdered By: Dr. Houston on 07-07-2022 Lymphocytes/100 WBC (Bld) 44.9 % 19-41 [facility] Blood monocytes/100 leukocyt esOrdered By: Dr. Houston on 07-07-2022 Monocytes/100 WBC (Bld) 7.0 % 0-10 [facility] Blood platelet mean volumeOr dered By: Dr. Houston on 07-07-2022 Platelet mean volume (Bld) [Entitic vol] 8.9 fL 6.2-12.0 [facility] Determination of erythrocyte mean corpuscular volume (MCV)Ordered By: Dr. Houston on 07-07-2022 MCV (RBC) [Entitic vol] 80.8 fL 81-99 [facility] Hematocrit Auto (Bld) [Volum e fraction]Ordered By: Dr. Houston on 07-07-2022 Hematocrit (Bld) [Volume fraction] 39.9 % 37-47 [facility] Laboratory - Chemistry and C hemistry - challengeOrdered By: Dr. Houston on 07-07-2022 ALP [Catalytic activity/Vol] 92 U/L 45-117 [facility] ALT [Catalytic activity/Vol] 16 U/L 13-56 [facility] CO2 [Moles/Vol] 24.0 mmol/L 21.0-32.0 [facility] Globulin (S) [Mass/Vol] 3.7 g/dL 2.2-4.2 [facility] Urea nitrogen/Creatinine [Mass ratio] 15.9 mg/mg 10-20 [facility] Laboratory - Hematology and Cell countsOrdered By: Dr. Houston on 07-07-2022 Erythrocyte distribution width (RBC) [Entitic vol] 50.6 fL 35.1-43.9 [facility] Erythrocyte distribution width (RBC) [Ratio] 17.2 % 11.6-14.6 [facility] Immature granulocytes/100 WBC (Bld) 0.200 % 0.0-0.9 [facility] Comment on above: IG% - Immature Granu locytes (promyelocytes, myelocytes and metamyelocytes) > 1% indicates that a LEFT SHIFT is Present. MCH (RBC) [Entitic mass] 26.5 pg 27.0-32.0 [facility] Nucleated RBC/100 WBC (Bld) [Ratio] 0 % 0-5 [facility] MCHC Auto (RBC) [Mass/Vol]Or dered By: Dr. Houston on 07-07-2022 MCHC (RBC) [Mass/Vol] 32.8 g/dL 32-36 [facility] No Panel InformationOrdered By: Dr. Houston on 07-07-2022 Estimated Creatinine Clearance Calc 48.32 ml/min [facility] Estimated GFR (MDRD) Amer 63 mL/min >60 [facility] Comment on above: GFR Calc Estimated GFR (MDRD) Non-Af Amer 52 mL/min >60 [facility] Comment on above: Non- GFR Calc Troponin I High Sensitivity 29 pg/mL 3.0-54.0 [facility] Comment on above: Please Note: New Sary t Units and Gender Specific Reference Ranges. For more information see Policy Stat Procedure Purcell High Sensitivity Troponin (TNIH) and attachments. Platelets bldOrdered By: Dr. Houston on 07-07-2022 Platelets (Bld) [#/Vol] 282 10*3/uL 150-450 [facility] Serum or plasma albumin angela urement (mass/volume)Ordered By: Dr. Houston on 07-07-2022 Albumin [Mass/Vol] 3.3 g/dL 3.2-5.0 [facility] Serum or plasma albumin/glob ulin mass ratioOrdered By: Dr. Houston on 07-07-2022 Albumin/Globulin [Mass ratio] 0.9 {ratio} 0.9-2.4 [facility] Serum or plasma calcium angela urement (mass/volume)Ordered By: Dr. Houston on 07-07-2022 Calcium [Mass/Vol] 9.5 mg/dL 8.5-10.1 [facility] Serum or plasma creatinine m easurement (mass/volume)Ordered By: Dr. Houston on 07-07-2022 Creatinine [Mass/Vol] 1.13 mg/dL 0.55-1.02 [facility] Comment on above: The validity of the calculated GFR & GFRAA in patients over 70 years has not been determined. Clinical correlation is essential. Serum or plasma urea nitroge n measurement (mass/volume)Ordered By: Dr. Houston on 07-07-2022 Urea nitrogen [Mass/Vol] 18 mg/dL 7-18 [facility] Thin prep Papanicolaou smear with manual screeningOrdered By: Dr. Houston on 07-07-2022 Thin prep Papanicolaou smear with manual screening 17 U/L 15-37 [facility] Thin prep Papanicolaou smear with manual screening 9 5-15 [facility] Basic metabolic 2000 panelon 01-01-2022 Anion gap [Moles/Vol] 10 mmol/L [facility] Calcium [Mass/Vol] 8.9 mg/dL 8.4 [...] Inclusion of Race in Diagnosing Kidney Disease. [place] Journal of Kidney Diseases 202;79(2):268-88.e1. 2. N Engl J Med 1 Vol. 385 Issue 19 Pages 2353-2146 Glucose [Mass/Vol] 98 mg/dL 80 - 116 [...] 12-31-2021 Anion gap [Moles/Vol] 12 mmol/L Met [facility] Calcium [Mass/Vol] 9.3 mg/dL 8.4 [...] Inclusion of Race in Diagnosing Kidney Disease. [place] Journal of Kidney Diseases 202;79(2):268-88.e1. 2. N Engl J Med 2020 Vol. 385 Issue 19 Pages 4572-3847 Glucose [Mass/Vol] 115 mg/dL 80 - 116 [...] 12-30-2021 Anion gap [Moles/Vol] 14 mmol/L [facility] Calcium [Mass/Vol] 9.5 mg/dL 8.4 [...] Inclusion of Race in Diagnosing Kidney Disease. [place] Journal of Kidney Diseases 2021;79(2):268-88.e1. 2. N Engl J Med 2020 Vol. 385 Issue 19 Pages [phone] Glucose [Mass/Vol] 100 mg/dL 80 - 116 [...] YUMIKO LUGO ([id number]) on 12/30/2021 7:42:32 PM [facility] P wave [facility] by EKG 95 BPM [facility] P wave axis 58 degrees [facility] P-R Interval 142 ms [facility] Q-T interval 372 ms [facility] Q-T interval corrected 467 ms [facility] QRS axis -2 degrees [facility] QRS duration 70 ms [facility] T wave axis 56 degrees [facility] MAGNESIUMon 12-30-2021 Interpretation and review of [...] Interpretation and review of laboratory results [facility] IRON AND TIBCon 12-29-2021 Interpretation [...] panelon 12-28-2021 Anion gap [Moles/Vol] 17 mmol/L [facility] Calcium [Mass/Vol] 9.3 mg/dL 8.4 - [...] Inclusion of Race in Diagnosing Kidney Disease. [place] Journal of Kidney Diseases 2021;79(2):268-88.e1. 2. N Engl J Med 2020 Vol. 385 Issue 19 Pages [phone] Glucose [Mass/Vol] 112 mg/dL 80 - 116 [...] SST TUBE, BLOODon 12-28-2021 Extra Tube Done [facility] HEPATIC FUNCTION PANELon Albumin [Mass/Vol] 3.3 [...] [Mass/Vol] 5.7 g/dL 5.7 - 8.1 g/dL [facility] LIPASEon 12-28-2021 Interpretation and review of laboratory results Normal [facility] Lipase [Catalytic activity/Vol] 23 U/L <128 IU/L [facility] POTASSIUM, WHOLE BLOODOrdere d By: Razia De Anda on 12-28-2021 Interpretation and review of laboratory results Normal [facility] Potassium [Moles/Vol] 3.7 mmol/L 3.3 - 5.3 mmol/L [facility] TROPONIN Ion 12-28-2021 Interpretation and review of laboratory results Normal [facility] Troponin I.cardiac DL <= 0.01 ng/mL [Mass/Vol] ng/mL <0.120 ng/mL [facility] Comment on above: Range <=0.04 ng/mL: [...] injury. Interpretation: Clinical and laboratory correlation recommended. [facility] DRUGUon 07-05-2019 Drug Screen Urine Positive Replaced by [facility]) Comment on above: Performed By: #### D RUGU #### [address] [address] Drug Screen Urine Interp Positive Replaced by [facility]) Comment on above: Performed By: #### D RUGU #### [address] [address] U pH Drug Scrn 6.0 Normal 5.0-8.0 [facility] ([place]) Comment on above: Performed By: #### D RUGU #### [address] [address] U Specific [place] Drg Scrn 1.030 Normal 1.005-1.03 0 [facility] ([place]) Comment on above: Performed By: #### D RUGU #### [address] [address] Urine Drugs screened: See Below Normal [facility] ([place]) Comment on above: Result Comment: This drug [...] ONLY. Performed By: #### D MARTY #### [place] [address] .Auto Diffon 06-13-2019 Ammonia (P) [Mass/Vol] 0.30 10 3/mcL Normal 0.15-1.00 [facility] ([place]) Comment on above: Performed By: #### WILL CARRINGTON ANEU #### [address] [address] Basophils (Bld) [#/Vol] 0.00 10 3/mcL Normal 0.00-0.19 [facility] ([place]) Comment on above: Performed By: ###WILL NO ANEU #### [address] [address] Basophils/100 WBC (Bld) 0.8 % Normal 0.0-2.5 [facility] ([place]) Comment on above: Performed By: #### WILL CARRINGTON ANEU #### [address] [address] Eosinophils (Bld) [#/Vol] 0.10 10 3/mcL Normal 0.00-0.40 [facility] ([place]) Comment on above: Performed By: #### WILL CARRINGTON ANEU #### [address] [address] Eosinophils/100 WBC (Bld) 3.4 % Normal 0.0-7.0 [facility] ([place]) Comment on above: Performed By: #### WILL CARRINGTON ANEU #### [address] [address] Lymphocytes (Bld) [#/Vol] 1.60 10 3/mcL Normal 0.77-3.85 [facility] ([place]) Comment on above: Performed By: #### WILL CARRINGTON, ANEU #### [address] [address] Lymphocytes/100 WBC (Bld) 37.7 % Normal 10.0-50.0 [facility] ([place]) Comment on above: Performed By: #### C WILL MCLAUGHLIN, ANEU #### [address] [address] Monocytes/100 WBC (Bld) 8.0 % Normal 1.7-13.0 [facility] ([place]) Comment on above: Performed By: #### WILL CARRINGTON, ANEU #### [address] [address] Neutrophils/100 WBC (Bld) 50.1 % Normal 37.0-80.0 [facility] ([place]) Comment on above: Performed By: #### C WILL MCLAUGHLIN, ANEU #### [address] [address] .NEUABSon 06-13-2019 Neutrophils (Bld) [#/Vol] 2.10 10 3/mcL Low 2.85-6.16 [facility] ([place]) Comment on above: Performed By: #### C WILL MCLAUGHLIN, ANEU #### [address] [address] CBCon 06-13-2019 Erythrocyte distribution width (RBC) [Ratio] 20.2 % High 11.5-14.5 [facility] ([place]) Comment on above: Performed By: #### WILL CARRINGTON, ANEU #### [address] [address] Hematocrit (Bld) [Volume fraction] 33.7 % Low 37.0-47.0 [facility] ([place]) Comment on above: Performed By: #### WILL CARRINGTON, ANEU #### [place] [id number] Hemoglobin (Bld) [Mass/Vol] 10.7 G/dL Low 12.0-16.0 [facility] ([place]) Comment on above: Performed By: #### C WILL MCLAUGHLIN, ANEU #### [address] [address] MCH (RBC) [Entitic mass] 24.6 pg Low 27.0-31.2 [facility] ([place]) Comment on above: Performed By: #### C WILL MCLAUGHLIN, ANEU #### [address] [address] MCHC (RBC) [Mass/Vol] 31.8 G/dL Low 33.0-37.0 [facility] ([place]) Comment on above: Performed By: #### WILL CARRINGTON, ANEU #### [address] [address] MCV (RBC) [Entitic vol] 77.3 fL Low 80.0-94.0 [facility] ([place]) Comment on above: Performed By: #### WILL CARRINGTON, ANEU #### [address] [address] Platelet mean volume (Bld) [Entitic vol] 7.1 fL Low 7.4-10.4 [facility] ([place]) Comment on above: Performed By: #### WILL CARRINGTON, ANEU #### [address] [address] Platelets (Bld) [#/Vol] 316 10 3/mcL Normal 130-400 [facility] ([place]) Comment on above: Performed By: #### C WILL MCLAUGHLIN, ANEU #### [address] [address] RBC (Bld) [#/Vol] 4.35 10 6/mcL Normal 4.20-5.40 [facility] ([place]) Comment on above: Performed By: #### WILL CARRINGTON, ANEU #### [address] [address] WBC (Bld) [#/Vol] 4.20 10 3/mcL Low 4.60-10.80 [facility] ([place]) Comment on above: Performed By: #### C WILL MCLAUGHLIN ANEU #### [place] [address] [address] Vital Signs Date Time Vital Sign Value Performing Clinician Facility 11-16-2023 18:19-0400 Body temperature 97.8 [degF] [facility] 11-16-2023 18:19-0400 Diastolic blood pressure 75 mm[Hg] [facility] 11-16-2023 18:19-0400 Heart rate 81 /min [facility] 11-16-2023 18:19-0400 Respiratory rate 16 /min [facility] 11-16-2023 18:19-0400 SaO2% (BldA) [Mass fraction] 96 % [facility] 11-16-2023 18:19-0400 Systolic blood pressure 117 mm[Hg] [facility] 11-16-2023 13:37-0400 Body height 167.64 cm [facility] 11-16-2023 13:37-0400 Body mass index (BMI) [Ratio] 24.2 kg/m2 [facility] 11-16-2023 13:37-0400 Body weight 68.03 kg [facility] 03-23-2023 21:05-0400 Diastolic blood pressure 87 mm[Hg] No Primary Care Physician [facility] 03-23-2023 21:05-0400 Heart rate 70 /min No Primary Care Physician [facility] 03-23-2023 21:05-0400 Respiratory rate 16 /min No Primary Care Physician [facility] 03-23-2023 21:05-0400 SaO2% (BldA) [Mass fraction] 100 % No Primary Care Physician [facility] 03-23-2023 21:05-0400 Systolic blood pressure 133 mm[Hg] No Primary Care Physician [facility] 03-23-2023 18:25-0400 Body temperature 98.1 [degF] No Primary Care Physician [facility] 03-23-2023 16:26-0400 Body height 167.64 cm No Primary Care Physician [facility] 03-23-2023 16:26-0400 Body mass index (BMI) [Ratio] 26 kg/m2 No Primary Care Physician [facility] 03-23-2023 16:26-0400 Body weight 73.2 kg No Primary Care Physician [facility] 03-09-2023 09:07-0400 Body height 167.6 cm Hilton Johnson MD Work Phone: [facility] 03-09-2023 09:07-0400 Body mass index (BMI) [Ratio] 26.47 kg/m2 Hilton Johnson MD Work Phone: [facility] 03-09-2023 09:07-0400 Body temperature 97.9 [degF] Hilton Johnson MD Work Phone: [facility] 03-09-2023 09:07-0400 Body weight 74.39 kg Hilton Johnson MD Work Phone: [facility] 03-09-2023 09:07-0400 Diastolic blood pressure 66 mm[Hg] Hilton Johnson MD Work Phone: [facility] 03-09-2023 09:07-0400 Heart rate 76 /min Hilton Johnson MD Work Phone: [facility] 03-09-2023 09:07-0400 Systolic blood pressure 116 mm[Hg] Hilton Johnson MD Work Phone: [facility] 02-16-2023 09:23-0400 Body temperature 97.9 [degF] No Primary Care Physician [facility] 02-16-2023 09:23-0400 Diastolic blood pressure 73 mm[Hg] No Primary Care Physician [facility] 02-16-2023 09:23-0400 Heart rate 73 /min No Primary Care Physician [facility] 02-16-2023 09:23-0400 Respiratory rate 16 /min No Primary Care Physician [facility] 02-16-2023 09:23-0400 SaO2% (BldA) [Mass fraction] 100 % No Primary Care Physician [facility] 02-16-2023 09:23-0400 Systolic blood pressure 119 mm[Hg] No Primary Care Physician [facility] 02-16-2023 03:22-0400 Body mass index (BMI) [Ratio] 27.7 kg/m2 No Primary Care Physician [facility] 02-16-2023 03:22-0400 Body weight 77.9 kg No Primary Care Physician [facility] 02-14-2023 10:27-0400 Body height 167.64 cm No Primary Care Physician [facility] 02-13-2023 20:55-0400 Body temperature 96.8 [degF] [facility] 02-13-2023 20:55-0400 Diastolic blood pressure 80 mm[Hg] [facility] 02-13-2023 20:55-0400 Heart rate 82 /min [facility] 02-13-2023 20:55-0400 Respiratory rate 18 /min [facility] 02-13-2023 20:55-0400 SaO2% (BldA) [Mass fraction] 98 % [facility] 02-13-2023 20:55-0400 Systolic blood pressure 122 mm[Hg] [facility] 02-13-2023 19:21-0400 Body height 167.64 cm [facility] 02-13-2023 19:21-0400 Body mass index (BMI) [Ratio] 27.6 kg/m2 [facility] 02-13-2023 19:21-0400 Body weight 77.6 kg [facility] 10-22-2022 13:13-0400 Diastolic blood pressure 84 mm[Hg] [facility] 10-22-2022 13:13-0400 Heart rate 88 /min [facility] 10-22-2022 13:13-0400 Respiratory rate 16 /min [facility] 10-22-2022 13:13-0400 SaO2% (BldA) [Mass fraction] 100 % [facility] 10-22-2022 13:13-0400 Systolic blood pressure 126 mm[Hg] [facility] 10-22-2022 11:50-0400 Body mass index (BMI) [Ratio] 27.4 kg/m2 [facility] 10-22-2022 11:50-0400 Body weight 77.1 kg [facility] 10-22-2022 10:07-0400 Body height 167.64 cm [facility] 10-22-2022 10:07-0400 Body temperature 97.9 [degF] [facility] 10-09-2022 17:22-0500 Body height 167.64 cm [facility] 10-09-2022 17:22-0500 Body mass index (BMI) [Ratio] 28.2 kg/m2 [facility] 10-09-2022 17:22-0500 Body temperature 98.6 [degF] [facility] 10-09-2022 17:22-0500 Body weight 79.37 kg [facility] 10-09-2022 17:22-0500 Diastolic blood pressure 79 mm[Hg] [facility] 10-09-2022 17:22-0500 Heart rate 110 /min [facility] 10-09-2022 17:22-0500 Respiratory rate 18 /min [facility] 10-09-2022 17:22-0500 SaO2% (BldA) [Mass fraction] 99 % [facility] 10-09-2022 17:22-0500 Systolic blood pressure 110 mm[Hg] [facility] 07-07-2022 15:21-0500 Body temperature 98 [degF] [facility] 07-07-2022 15:21-0500 Diastolic blood pressure 87 mm[Hg] [facility] 07-07-2022 15:21-0500 Heart rate 85 /min [facility] 07-07-2022 15:21-0500 Respiratory rate 16 /min [facility] 07-07-2022 15:21-0500 SaO2% (BldA) [Mass fraction] 100 % [facility] 07-07-2022 15:21-0500 Systolic blood pressure 114 mm[Hg] [facility] 07-07-2022 12:17-0500 Body height 167.64 cm [facility] Work Phone: 07-07-2022 12:17-0500 Body mass index (BMI) [Ratio] 28.4 kg/m2 [facility] 07-07-2022 12:17-0500 Body weight 79.83 kg [facility] 01-01-2022 06:00-0400 Body temperature 97.59 [degF] Wayne Benton MD Work Phone: [facility] 01-01-2022 06:00-0400 Diastolic blood pressure 84 mm[Hg] Wayne Benton MD Work Phone: [facility] 01-01-2022 06:00-0400 Heart rate 76 /min Wayne Benton MD Work Phone: [facility] 01-01-2022 06:00-0400 Respiratory rate 18 /min Wayne Benton MD Work Phone: [facility] 01-01-2022 06:00-0400 SaO2% (BldA) [Mass fraction] 100 % Wayne Benton MD Work Phone: [facility] 01-01-2022 06:00-0400 Systolic blood pressure 137 mm[Hg] Wayne Benton MD Work Phone: [employer] 12-30-2021 20:07-0400 Heart rate 95 /min Wayne Benton MD Work Phone: [facility] 12-29-2021 17:59-0400 Body height 167.6 cm Wayne Benton MD Work Phone: [facility] 12-29-2021 17:59-0400 Body mass index (BMI) [Ratio] 31.05 kg/m2 Wayne Benton MD Work Phone: [facility] 12-29-2021 17:59-0400 Body weight 87.27 kg Wayne Benton MD Work Phone: [employer] Encounters Encounter Date Encounter Type Care Provider Facility Start: 06-13-2025 ambulatory No Primary Car e Physician Facility:[facility] Start: 05-31-2025 End: 05-31-2025 ambulatory No Primary Care Physician Facility:[facility] Start: 04-26-2025 ambulatory No Primary Car e Physician Facility:[facility] Start: 04-26-2025 End: 04-26-2025 ambulatory No Primary Care Physician Facility:[facility] Start: 03-27-2025 End: 03-27-2025 ambulatory Stoney Chi Tristan Facility:[facility] Start: 03-05-2025 End: 03-05-2025 ambulatory No Primary Care Physician Facility:[facility] Start: 03-05-2025 End: 03-05-2025 ambulatory Azalea Peggy [employer] Facility:[facility] Start: 01-26-2025 ambulatory Virginie Aguillon Facility:[facility] Start: 01-26-2025 End: 01-27-2025 Evaluation and management of inpatient No Primary Care Physician Facility:[facility] Start: 01-25-2025 ambulatory Virginie Aguillon Facility:[facility] Start: 12-15-2024 End: 12-15-2024 ambulatory Stoney Chi Tristan Facility:[facility] Start: 10-10-2024 End: 10-10-2024 ambulatory Stoney Chi Tristan Facility:[facility] Start: 08-30-2024 End: 08-30-2024 ambulatory Stoney Chi Tristan [facility] Start: 08-26-2024 End: 08-26-2024 Emergency department patient visit Stoney Chi Tristan Facility:[facility] Start: 08-22-2024 End: 08-22-2024 ambulatory Stoney Chi Tristan [facility] Start: 07-20-2024 End: 07-20-2024 ambulatory Stoney Chi Tristan Facility:[facility] Start: 07-19-2024 End: 07-19-2024 ambulatory Stoney Chi Tristan Facility:[facility] Start: 06-08-2024 End: 06-08-2024 ambulatory BUNNY YO MD Facility:[facility] Start: 06-08-2024 End: 06-08-2024 Patient encounter procedure BUNNY YO MD [facility] Start: 02-08-2024 End: 02-18-2024 Refill Hilton Johnson MD Work Phone: [facility] Comment on above: Refill Refill; Reference 99 Start: 01-21-2024 End: 01-21-2024 Telephone encounter To Be Assigned [facility] Physicia n Referral Service Comment on above: Update Start: 01-05-2024 End: 01-06-2024 Refill Hilton Johnson MD Work Phone: [facility] Comment on above: Refill Start: 12-21-2023 End: 12-23-2023 Refill Hilton Johnson MD Work Phone: [facility] Comment on above: Refill Start: 12-01-2023 Emergency department patient visit JEANA QUINTANA Facility:[facility] Start: 11-24-2023 Refill Hilton Johnson MD Work Phone: [facility] Comment on above: Refill Start: 11-16-2023 End: 11-16-2023 Emergency department patient visit [facility]-Emergency Department Work Phone: Start: 11-12-2023 Letter encounter Patrizia SMALL [facility] Cardiology Start: 10-25-2023 Refill Hilton Johnson MD Other Phone: [facility] Comment on above: Refill Start: 05-28-2023 Telephone encounter Hilton smiley MD Work Phone: [facility] Comment on above: Medical Record Revie w Start: 03-23-2023 End: 03-23-2023 Emergency department patient visit No Primary Care Physician [facility]-Emergency Department Work Phone: Start: 03-15-2023 Telephone encounter Hilton smiley MD Work Phone: [facility] Comment on above: Med Change Request Start: 03-10-2023 Telephone encounter Hilton smiley MD Work Phone: [facility] Start: 03-09-2023 End: 03-09-2023 Initial preventive medicine new patient 40-64yrs Hilton Johnson MD Work Phone: [facility] Comment on above: Routine adult health maintenance (Primary Dx); Lipid screening; 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-en-Y gastric bypass; Postoperative malabsorption; Cervical spondylosis without myelopathy; Primary osteoarthritis of right knee; Anastomotic ulcer S/P gastric bypass; Calculus of gallbladder without cholecystitis without obstruction; Generalized abdominal pain; Dizziness; Prediabetes; Body mass index (BMI) 26.0-26.9, adult Start: 03-09-2023 End: 03-09-2023 Patient encounter status Hilton Johnson MD Work Phone: [facility] Start: 03-09-2023 End: 03-09-2023 ambulatory UNKNOWN PROVIDER Facility:[facility] Start: 03-02-2023 Emergency department patient visit Rock Sharpe MD Work Phone: [facility] Emergency Medicine Comment on above: Refill Start: 03-01-2023 Registered Referred No Primary Care Physician [facility]-Cardiovascul ar Services Work Phone: Start: 02-24-2023 Telephone encounter Rock anthony MD Work Phone: [facility] Emergency Triage, Treat and Transport Comment on above: Requesting Medicatio ns Start: 02-16-2023 Non-patient / Non-visit No [facility] Physician [facility] Work Phone: Start: 02-15-2023 Non-patient / Non-visit No [facility] Physician [facility] Work Phone: Start: 02-15-2023 Non-patient / Non-visit No [facility] Start: 02-14-2023 Non-patient / Non-visit No [facility] Work Phone: Start: 02-13-2023 End: 02-16-2023 Evaluation and management of inpatient [facility]-Progressive Care Unit Work Phone: Start: 02-13-2023 End: 02-16-2023 observation encounter No Primary Care Physician [facility] Work Phone: Start: 10-22-2022 End: 10-22-2022 Emergency department patient visit [facility]-Emergency Department Start: 10-09-2022 End: 10-09-2022 Emergency department patient visit [facility]-Emergency Department Start: 07-07-2022 End: 07-07-2022 Emergency department patient visit [facility]-Emergency Department Start: 02-26-2022 Telephone encounter To Be Assigned [facility] Physician Referral Service Comment on above: Left Message To Call Back Start: 12-28-2021 End: 01-01-2022 Evaluation and management of inpatient Wayne Benton MD Work Phone: Inpatient [phone] Comment on above: Gastrointestinal hem orrhage, unspecified gastrointestinal hemorrhage type (Primary Dx); Syncope and collapse; Peptic ulcer; 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-en-Y gastric bypass; Anastomotic ulcer; Chronic iron deficiency anemia Start: 03-05-2021 Patient encounter status [facility] Procedures Date Procedure Procedure Detail [...] Start: 05-02-2024 Influenza vaccination Influenza Vaccine (#[facility]) [facility] Start: 03-23-2024 Creatinine measurement Basic Metabolic Panel [facility] Start: 03-09-2024 Creatinine measurement Basic Metabolic Panel [facility] Start: 03-09-2024 Hemoglobin A1c measurement Hemoglobin A1C [facility] Start: 02-24-2024 End: 02-24-2024 Patient encounter procedure 02/24/2024 1:00 PM EDT Office Visit [place] [id number] Randall Hodgson MD [address] [place] [address] [facility] Start: 01-31-2024 Creatinine measurement Basic Metabolic Panel [facility] Start: 11-16-2023 [facility] Start: 07-05-2023 End: 07-05-2023 Patient encounter procedure 07/05/2023 11:00 AM EST Office Visit [place] [id number] Gabriel Ugarte MD [address] [place], [place] [id number] [facility] Start: 05-02-2023 Influenza vaccination Influenza Vaccine (#1) [facility] Start: 05-02-2023 End: 07-10-2023 Lipid 1996 panel - Serum or Plasma FULL LIPID PROFILE Lab Routine Hyperlipidemia, unspecified hyperlipidemia type Expected: 05/02/2023, Expires: 07/10/2023 [facility] Work Phone: Comment on above: Expected: 05/02/2023, Expires: Start: 04-02-2023 COVID-19 Vaccine () COVID-19 Vaccine () [facility] Start: 04-02-2023 Influenza vaccination Influenza Vaccine (#1) [facility] Start: 03-09-2023 End: 03-09-2023 Patient encounter procedure 03/09/2023 9:20 [place] [address] Hilton Johnson MD [address] [place] [address] [facility] Start: 02-16-2023 Patient discharge [facility] Start: 02-14-2023 End: 02-15-2023 [facility] Start: 02-13-2023 Following clinical pathway protocol [facility] Start: 02-13-2023 Assessment of risk of venous thromboembolism [facility] Start: 02-13-2023 Cardiac monitoring [facility] Start: 02-13-2023 Fall prevention [facility] Start: 02-13-2023 Inhalation therapy procedure [facility] Start: 02-13-2023 Insertion of catheter into peripheral vein [facility] Start: 02-13-2023 Introduction of urinary catheter [facility] Start: 02-13-2023 Measuring intake and output [facility] Start: 02-13-2023 Oxygen therapy [facility] Start: 02-13-2023 Providing care according to standard [facility] Start: 02-13-2023 Provision of activity privileges [facility] Start: 02-13-2023 Referral to service [facility] Start: 02-13-2023 Tobacco use cessation education [facility] Start: 02-13-2023 End: 02-13-2023 [facility] Start: 02-13-2023 Verification routine [facility] Start: 02-13-2023 Admission procedure [facility] Start: 02-13-2023 [facility] Start: 02-13-2023 Patient referral to dietitian [facility] Start: 01-01-2023 Basic metabolic 2000 panel - Serum or Plasma [facility] Start: 09-16-2022 Shingles (RZV) Vaccine (2 of 2) Shingles (RZV) Vaccine (2 of 2) [facility] Start: 07-07-2022 [facility] Start: 06-22-2022 Hemoglobin A[facility]c [facility] Start: 05-02-2022 Influenza vaccination Influenza Vaccine (#1) [facility] Start: 02-19-2022 End: 02-19-2022 Patient encounter procedure 02/19/2022 Office Visit Gastroenterology Mary Ellen Miller MD [address] [facility] [address] [facility] Gastro[facility] Start: 01-14-2022 End: 01-14-2022 Patient encounter procedure 01/14/2022 Office Visit Internal Medicine Macy Smith DO [address] [place] [address] [facility] [employer] Start: 04-05-2021 COVID-19 Vaccine (3 - Booster for Pfizer series) COVID-19 Vaccine (3 - Booster for Pfizer series) [facility] Start: 12-29-2020 COVID-19 Vaccine (3 - Booster for Pfizer series) COVID-19 Vaccine (3 - Booster for Pfizer series) [facility] Start: 12-29-2020 COVID-19 Vaccine (3 - [...] (2 of 2 - [facility]-dose series[facility] Start: 11-02-2018 Cholesterol [Mass/volume] in Serum or Plasma Cholesterol [facility] Start: 07-17-2016 Screening for malignant neoplasm [...] Pneumococcal vaccination Pneumococcal Vaccine(s) (1 - PCV) [facility] 25 hydroxy includes fractions if performed VITAMIN D, 25-HYDROXY Lab Routine Postoperative malabsorption Ordered: 03/09/2023 [facility] Comment on above: Ordered: 03/09/2023 Amphetamine [Mass/volume] in Urine [facility] Assay of ferritin FERRITIN Lab R outine Postoperative malabsorption Ordered: 03/09/2023 [facility] Work Phone: Comment on above: Ordered: 03/09/2023 Assay of magnesium MAGNESIUM Lab STAT Daily until discontinued starting 12/30/2021, 3 completed [facility] Comment on above: Daily until discontinued starting 2021, 3 completed Basic metabolic 2000 panel - Serum or Plasma BASIC METABOLIC PANEL Lab STAT Daily until discontinued starting 12/30/2021, 3 completed [employer] Work Phone: Comment on above: Daily until discontinued starting 2021, 3 completed Basic metabolic 2000 panel - Serum or Plasma BASIC METABOLIC PANEL Lab Routine Postoperative malabsorption Ordered: 03/09/2023 [facility] Comment on above: Ordered: 03/09/2023 Benzodiazepine measurement, urine [facility] Bilirubin measuremen t, urine [facility] Blood count complete auto&auto difrntl wbc CBC WITH DIFFERENTIAL Lab Only Routine Postoperative malabsorption 03/09/2023 10:26 AM EDT [facility] Cardiac event recording [facility] CBC W Auto Different ial panel - Blood COMPLETE BLOOD COUNT W/DIFF Lab Routine Postoperative malabsorption 03/09/2023 10:26 AM EDT [facility] Cocaine measurement, urine [facility] Cyanocobalamin vitam in b-12 VITAMIN B12 (CYANOCOBALAMIN) Lab Routine Postoperative malabsorption Ordered: 03/09/2023 [facility] Comment on above: Ordered: 03/09/2023 DARK [...] (BMI) 26.0-26.9, adult 03/09/2023 2:14 PM EDT [facility] Diabetes tracking panel HEMOGLOB IN A1C Lab Routine Prediabetes 03/09/2023 10:26 AM EDT [facility] Ethanol [Mass/volume ] in Serum or Plasma [facility] End: 12-28-2021 EXTRA TUBE EXTRA TUBE Lab Only Routine One time for 1 Occurrences starting 12/28/2021 until 12/28/2021 [employer] Work Phone: Comment on above: One [...] (BMI) 26.0-26.9, adult 03/09/2023 2:14 PM EDT [facility] Hemoglobin [Presence ] in Urine [facility] Lipid 1996 panel - Serum or Plasma FULL LIPID PROFILE Lab Routine Lipid screening Ordered: 03/09/2023 [facility] Comment on above: Ordered: 03/09/2023 Measurement of 3,4-methylenedioxymetha mphetamine in urine [facility] Measurement of keton es in urine using dipstick [facility] Methadone measuremen t, urine [facility] Microscopic urinalysis [facility] Patient Education [facility] Work Phone: Patient referral [facility] Work Phone: pH of Urine [facility] pH of Urine [facility] Phencyclidine [Presence] in Urine [facility] Specific gravity of Urine [facility] Urinalysis, blood, qualitative [facility] Urine barbiturate measurement [facility] Urine cannabinoid measurement [facility] Urine dipstick for glucose [facility] Urine dipstick for leukocyte esterase [facility] Urine dipstick for nitrite [facility] Urine dipstick for protein [facility] Urine examination [facility] Urine microscopy: epithelial cells [facility] Urine Microscopy: wh ite cells [facility] Urine opiate measurement [facility] Urobilinogen [Presen ce] in Urine [facility] Immunizations Immunization Date Immunization Notes [facility]23 Hemoglobin A1C Hilton Cartwright i, MD Work Phone: [facility] 07-22-2022 zoster vaccine recombinant Rock Sharpe MD Work Phone: [facility] 06-22-2021 Hemoglobin A1C Wayne Benton MD Work Phone: [facility] 11-03-2020 Pfizer SARS-COV-2 (COVID-19) vaccine, age 12+ yrs, mRNA, spike protein, LNP, preservative free, 30 mcg/0.3mL dose (POU=437) Wayne Benton MD Work Phone: [facility] 10-12-2020 Pfizer SARS-COV-2 (COVID-19) vaccine, age 12+ yrs, mRNA, spike protein, LNP, preservative free, 30 mcg/0.3mL dose (LDO=961) Wayne Benton MD Work Phone: [facility] 05-16-2019 hepatitis A vaccine, adult dosage Wayne Benton MD Work Phone: [facility] 09-28-2017 tetanus toxoid, reduced diphtheria toxoid, and acellular pertussis vaccine, adsorbed Wayne Benton MD Work Phone: [facility] 07-19-2015 tuberculin skin test ; purified protein derivative solution, intradermal Wayne Benton MD Work Phone: [facility] 04-19-2015 Hemoglobin A1C Hilton Cartwright i, MD Work Phone: [facility] 09-14-2013 influenza, seasonal, injectable Wayne Benton MD Work Phone: [facility] 09-14-2013 influenza virus vaccine, unspecified formulation To Assigned [facility] 11-12-2011 tetanus toxoid, reduced diphtheria toxoid, and acellular pertussis vaccine, adsorbed Wayne Benton MD Work Phone: [facility] 01-24-2003 tuberculin skin test ; purified protein derivative solution, intradermal Hilton Johnson MD Work Phone: [facility] Work Phone: 07-11-2002 influenza virus vaccine, unspecified formulation Hilton Johnson MD Work Phone: [facility] Work Phone: Payers Date Payer Category Payer Unknown [id number] 2024 Self-pay [id number] 2021 Medicare [id number] 2021 Private Health Insurance [id number] 2014 Medicaid [id number] 2014 Medicaid [id number] 2014 Unknown [id number] 1995 Worker's Compensation [id number] [id number] 1960 Unknown [id number] 1960 Unknown [id number] 2..[id number] Medicare [id number] Medicare [id number] Medicare MEDICARE PART A B [id number] Private Health Insurance [facility] [id number] Unknown [id number] Unknown [id number] 2.840.1.686731.3.579.2.462 Unknown [id number] 2.840.1.093076.3.579.2.462 Unknown [id number] 2.840.1.064423.3.579.2.462 Unknown [id number] 2.840.1.126286.3.579.2.462 Unknown [id number] 2.840.1.884415.3.579.2.462 Unknown [id number] 2.840.1.270985.3.579.2.462 Unknown [id number] 2.840.1.311733.3.579.2.462 Unknown [id number] 2.840.1.137088.3.579.2.462 Unknown [id number] 2.840.1.803169.3.579.2.462 Unknown [id number] 2.840.1.345856.3.579.2.462 Unknown [id number] 2.16840.1.433654.3.579.2.462 Unknown [id number] 2.16.840.1.575657.3.579.2.462 Unknown [id number] 2.16.840.1.206750.3.579.2.462 Unknown [id number] [id number] Unknown [id number] 2.16840.1.983488.3.579.2.462 Unknown [id number] 2.16840.1.566514.3.579.2.462 Unknown [id number] 2.840.1.861802.3.579.2.462 Social History Date Type Detail Facility Start: 11-24-2013 Tobacco smoking stat [facility] Occasional tobacco smoker [facility] History of tobacco [...] smoking status NHIS Unknown if ever smoked [facility] Start: 1960 Sex Assigned At Female [facility] Start: 03-09-2023 Gender identity Not on file [facility] Start: 03-09-2023 Tobacco smoking stat [facility] Ex-smoker [facility] History of tobacco use Current smoker [facility] Tobacco smoking status Smokes to bacco daily (finding) [facility] Goals Date Patient Goal Desired Activity /State Personal health goal Functional Status Date Assessment Result Facility 02-16-2023 Functional status [place] [facility] Work Phone: Mental Status Date Assessment Result Facility 11-16-2023 Cognitive function Voice/Name [facility] Work Phone: 02-16-2023 Cognitive function Voice/Name [facility] Work Phone: 02-13-2023 Cognitive function Level Of Cons ciousness Awake;Alert;Appropriate;Follow s Commands [facility] Work Phone: Clinical Notes 12-28-2021 to 01-27-2025 Telephone Encounter - Orin Garcia - 02/18/2024 10:08 AM EDTTelephone Encounter - Orin Garcia - 02/18/2024 10:08 AM EDTTelephone Encounter - Yanelis Guerrero RN - 02/10/2024 3:37 PM EDT Note Date & Type Note Facility 01-27-2025 Note [facility] Medical Records Department [address] [place] [address] Discharge Summary 01/27/25 1151 MR#: [id number] Acct: [id number] Name: MORENA PATTON Rep #: [id number] : 1960 64 From: Lam Espinal MD PCP: Care Physician,No Primary Status:ADM IN Location: [place] [address] Providers Date of Admission: 01/26/25 Date of [...] and gets 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 She cannot absorb oral iron. [...] Carotid Bruits Chest (more content not included)... [facility] 11-21-2024 Note HNO ID: [id number] Author: JESSENIA EVANS RN Service: ? 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 Author Type: Daycare Worker Type: Progress Notes Filed: 09/04/2024 11:09 Note [...] Mota MA September 04, 2024 11:02 AM [facility] 09-04-2024 Note Patient Outreach (NE TNAV) MORENA PATOTN ([id number]) 1960 F Date Time Provider Department 09/04/24 [...] Encounter Status:Closed by LISA MOTA on 09/04/24 [facility] 06-09-2024 Note HNO ID: [id number] Author: RUTH RAYMUNDO MA Service: ? Author Type: Daycare Worker Type: Progress Notes Filed: 06/09/2024 15:33 Note Text: POPULATION HEALTH NAVIGATION OUTREACH Action/FYI Patient returning my call Medication Adherence Discuss/Due for: Questionable Attribution Routed to moreno team to confirm outside care Outcome: 1st attempt - Spoke to patient Patient hung up the phone prior to discussing Attribution /PCP - called patient back, left a message informing Navigator was not a forging dies final finisher Reason for Outreach Med Adherence Patient Contacted: Unable or unnecessary to reach patient: Left message Navigation Signature: Ruth Raymundo MA June 09, 2024 3:30 PM [facility] 06-09-2024 Note HNO ID: [id number] Author: RUTH RAYMUNDO MA Service: ? Author Type: Daycare Worker Type: Progress Notes Filed: 06/09/2024 14:59 Note Text: POPULATION HEALTH NAVIGATION OUTREACH Action/FYI Medication Adherence Discuss/Due for: Questionable Attribution Routed to moreno team to confirm outside care Outcome: 1st attempt - Left Message 2nd attempt - No MyChart Reason for Outreach Med Adherence Patient Contacted: Unable or unnecessary to reach patient: Left message Navigation Signature: Ruth Raymundo MA June 09, 2024 2:41 PM [facility] 06-09-2024 Note HNO ID: [id number] Author: ?, ?, ? Service: ? Author Type: ? Type: Progress Notes Filed: 06/09/2024 14:59 Note Text: Morena Patton is identified through a medication adherence outreach initiative based on pharmacy claims data from [employer] (insurer) for Statin medication(s). Patient is reviewed [...] team to confirm outside care Talia Fine (Pulpwood Cutter) [facility] 06-09-2024 Note Patient Outreach ([facility]) ALEKMORENA LAKHANI ([id number]) 1960 F Date Time Provider Department 06/09/24 NO PCP PHPOHE During your visit today, we recorded the following information about you: Babatunde (EducanonTalia Delacruz 06/09/2024 2:59 PM Signed Morena Patton is identified through a medication adherence outreach initiative based on pharmacy claims data from [employer] (insurer) for Statin medication(s). Patient is reviewed [...] team to confirm outside care Talia Fine (Pulpwood Cutter) Ruth Raymundo MA 06/09/2024 2:59 PM Signed [...] a message informing Navigator was not a forging dies final finisher Reason for Outreach Med Adherence Patient Contacted: [...] Encounter Status:Closed by RUTH RAYMUNDO on 06/09/24 [facility] 06-08-2024 Note ORIGINAL EXAMINATION: MRI OF [...] Sign Date: 06/08/2024 9:05:45 AM Ordering Provider: [facility] 06-08-2024 Note ORIGINAL EXAMINATION: MRA OF THE [...] Sign Date: 06/08/2024 10:07:33 AM Ordering Provider: [facility] 06-08-2024 Note ORIGINAL EXAMINATION: MRA OF THE HEAD WITHOUT CONTRAST 06/08/2024 9:50 am TECHNIQUE: MRA of the head was performed utilizing ddtx-xu-cnzsrw imaging with MIP images. No intravenous contrast [...] Sign Date: 06/08/2024 10:06:50 AM Ordering Provider: [facility] 02-28-2024 Note HNO ID: [id number] Author: KERVIN BROWN RN Service: ? Author [...] Patient High CostTotal Patient High Cost {HIGH COST:964220) Quality measure review Payor request for assistance Action Taken: Data submitted to payor Kervin Brown RN February 28, 2024 7:14 AM [facility] 02-28-2024 Note Patient Outreach [place] [place] MORENA PATTON ([id number]) 1960 F Date Time Provider Department 02/28/24 [...] Patient High CostTotal Patient High Cost {HIGH COST:960697) Quality measure review Payor request for assistance [...] Encounter Status:Closed by KERVIN BROWN on 03/22/24 [facility] 02-18-2024 Telephone encounter Note Called patient, 3 identifiers obtained. Patient was unable to talk at this time. Instructed patient to call [employer] [facility] at [phone]. Asked patient to reference #[phone] when calling back to our office. Ok to relay message below from Anamaria Guerrero RN. [employer] 02-18-2024 Miscellaneous Notes Called patient, 3 identifiers obtained. Patient was unable to talk at this time. Instructed patient to call [employer] [facility] at [phone]. Asked patient to reference #99 when calling back to our office. Ok to relay message below from Anamaria Guerrero RN. Unable to leave a message, voicemail is full. If patient calls back please ask the need for syringes, please encourage patient to keep 02/24/24 appt. Thank you. [facility] Telephone encounter Note Unable to leave a message, voicemail is full. If patient calls back please ask the need for syringes, please encourage patient to keep 02/24/24 appt. Thank you. [facility] 01-21-2024 Note Outreach Team ([phone]) Contact Details: Outbound call. Scheduling declined. Care Gaps Scheduling Medicare AWV / PCP Visit: AWV declined Eye Exam: Not due Mammogram: Due; needs order. [facility] [employer] [facility] 01-21-2024 Telephone encounter Note Outreach Team ([phone]) Contact Details: Outbound call. Scheduling declined. Care Gaps Scheduling Medicare AWV / PCP Visit: AWV declined Eye Exam: Not due Mammogram: Due; needs order. [facility] 01-21-2024 Miscellaneous Notes Outreach Team ([phone]) Contact Details: Outbound call. Scheduling declined. Care Gaps Scheduling Medicare AWV / PCP Visit: AWV declined Eye Exam: Not due Mammogram: Due; needs order. documented in this encounter [facility] 01-06-2024 Telephone encounter Note Images from [...] (Arrive by 12:50 PM) Randall Hodgson MD [facility] 01-06-2024 Miscellaneous Notes Images from the [...] (Arrive by 12:50 PM) Randall Hodgson MD [facility] documented in this encounter [facility] 12-23-2023 Telephone encounter Note OARRS reviewed. This is the last prescription that I will refill on behalf of this patietn [facility] 12-23-2023 Miscellaneous Notes OARRS reviewed. This is the last prescription that I will refill on behalf of this patietn documented in this encounter [facility] 11-16-2023 Discharge summary Note Date/Time November 16, 2023 2:15pm [facility] Medical Records Department [address] [place] [address] Emergency Department Summary 11/16/23 MR#: [id number] Acct: [id number] Name: MORENA PATTON Rep #:[id number] : 1960 63 From: Charly Nichols PCP: [...] approximate 4 months ago was admitted to [facility] for syncope. She had a Holter [...] clinician: N/A This note was generated with [employer] dictation software. It may contain incorrectwords, spelling, [...] 33.4 L Lymph % (Auto) 57.5 H Roseau % (Auto) 6.8 Eos % (Auto) 1.7 [...] Referrals: Alyson Gao MD [Med Staff - Handkerchief Sample Clerk] - 3-5 Days Care Physician,No Primary [Primary [...] your Primary Care Provider. Call [facility] ([phone]) or report to the closest Emergency Room. Call 911 if necessary. 11/16/231811 <Electronically signed by Charly Nichols> Cosigner Signature (if applicable): CC: No Primary Care Physician ~ Signed [facility] Work Phone: 1(325) 464-506210-27-2023 Telephone encounter Note* Telephone Encounter - Nayana Muir - 05/28/2023 2:21 PM EDT Care Gaps Scheduling Health Maintenence Due: Medicare AWV/PCP Visit: deferred Eye Exam: not due Foot Exam: not due Annual Bloodwork: active orders YOKO: not due [id number] Miscellaneous Notes* Telephone Encounter - Nayana Muir - 05/28/2023 2:21 PM EDT Care Gaps Scheduling Health Maintenence Due: Medicare AWV/PCP Visit: deferred Eye Exam: not due Foot Exam: not due Annual Bloodwork: active orders YOKO: not due documented in this [id number] Discharge summary Author Blaise Tom [facility] March 23, 2023 9:12pm Note Date/Time March 23, 2023 5: 11pm [facility] Medical Records Department [address] [place] [address] Emergency Department Summary 03/23/23 MR#: [id number] Acct: [id number] Name: MORENA PATTON Rep #:[id number] : 1960 63 From: Blaise Tom DO [...] open her hand. She apparently was at [facility] and her symptoms worsened. Patient states I cannot take it anymore. States she was recently admitted to the hospital for this and never followed up with anybody as an outpatient. She said her last PCP was at [facility]. Denies fever or chills. Denies constipation [...] it got worse when she was at [facility] today and she presents while drinking [...] 37.9 L Lymph % (Auto) 51.0 H Roseau % (Auto) 8.7 Eos % (Auto) 2.0 [...] Clarity Clear Urine pH 6.0 Ur Specific [place]pp[place] 1.020 Urine Protein 30 H Urine Glucose [...] your Primary Care Provider. Call [facility] ([phone]) or report to the closest Emergency Room. Call 911 if necessary. 03/23/232111 <Electronically signed by Blaise Tom DO> Cosigner Signature (if applicable): CC: No Primary Care Physician ~ Signed [facility] Work Phone: 1(718) 821-320008-14-2023 Telephone encounter Note* Telephone Encounter - Sarita Moscoso RN - 03/15/2023 1:13 PM EDT Order pended for provider review & signature. Requested Prescriptions Pending Prescriptions Disp Refills Syringe 23G X 1 3 ML MISC 12 Each 0 Si Syringe once a month. vitamin B-12 (CYANOCOBALAMIN) 1000 MCG/ML injection 12 Each 0 Sig: Inject 1 mL into the muscle once a month. [id number] Miscellaneous Notes* Telephone Encounter - Sarita Moscoso [...] provider's name: Hilton Johnson MD Pharmacy Name: [facility] documented in this [id number] Telephone encounter Note* Telephone Encounter - Heather Mariscal - 03/15/2023 10:53 AM EDT Pharmacy requesting medication substitution. Medication not available to order: Cyanocobalamin 1000 MCG/ML KIT Recommended alternative medications: Pharmacy is requesting two separate prescriptions, one for thevitamin B injection solution and the other for the syringe to inject it. Prescribing provider's name: Hilton Johnson MD Pharmacy Name: [facility] [id number] Telephone encounter Note* Telephone Encounter - Lisa [...] Patient verbalized understanding with no further questions. [id number] Miscellaneous Notes* Telephone Encounter - Lisa Ballesteros [...] of protection against CVD. documented in this [id number] Telephone encounter Note* Telephone Encounter - Hilton Johnson MD - 03/10/2023 7:57 AM EDT Prescribing a statin in response to the elevated cholesterol and total nonHDL cholesterol identified on her lipid panel realizing that the HDL is quite elevated and might indicate some degree of protection against CVD. [id number] Note* Addendum Note - Nichelle Hills - 03/09/2023 2:14 PM EDTAddended by: NICHELLE HILLS on: 03/09/2023 02:14 PM Modules accepted: Orders [id number] Note* Addendum Note - Nichelle Hills - 03/09/2023 2:14 PM EDTAddended by: NICHELLE HILLS on: 03/09/2023 02:14 PM Modules accepted: Orders [id number] Miscellaneous Notes* Addendum Note - Nichelle Hills - 03/09/2023 2:14 PM EDTAddended by: NICHELLE HILLS on: 03/09/2023 02:14 PM Modules accepted: Orders documented in this [id number] History of Present illness Narrative* Orin Garcia - 03/09/2023 10:40 AM EDT Patient identified by name and date of . Blood obtained from arm. * Hilton Johnson MD - 03/09/2023 9:30 AM EDT Date: 03/09/23 Morena Patton 63 year old, female [id number] CHIEF COMPLAINT: Chief Complaint Patient presents with [...] about a week ago. She lives in [place] but came here today because viktoriya really knows me. She ran out of most of her medications and has not been taking them. She passed out last week and picked up some medications at that time. She is now on a heart monitor. She is due to see a coning machine operator when she turns in her monitor. She was in the ED on January 30 for abdominal pain. She was discharged on Carafate. She started taking it on 02/24. She was in pain the entire time up until starting to take it. Her pain is now improved but not resolved. She states that she needs to see a crown ironer operator and Neurologist and coning machine operator. 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 Diagnoses and all orders for this [...] - vitamin D2 ergocalciferol (DRISDOL) 1.25 MG (26019 UT) capsule; Take 1 Capsule by mouth [...] during her most recent ED visit to [facility] On . Generalized abdominal pain This was the reason that she presented to the ED at [facility] on Dizziness - CARDIOLOGY SERVICE REQUEST - ECHOCARDIOGRAM, ADULT SERVICE REQUEST Patient states that she is always dizzy and weak and is currently wearing a Holter monitor and was told that she needs to see a Dust Mixer to assess her problem. Prediabetes - HEMOGLOBIN [...] at follow up visits. She lives in [place], and I encouraged her to have care established there as she is likely to be admitted to that local hospital if/when she might become acutely ill. She wants to continue care here at [facility] and we will therefore provide herthe [...] Risk protocol implemented: No documented in this [id number] Telephone encounter Note* Telephone Encounter - Janae [...] as well as a plan of action. [id number] Miscellaneous Notes* Telephone Encounter - Janae Hemphill [...] a plan of action. documented in this [id number] Discharge summary Author Virginie Aguillon [facility] February 16, 2023 10:56am Note Date/Time February 16, 2023 10:5 7am [facility] Medical Records Department [address] [place] [address] Instructions for Home/Discharge Instructions 02/16/23 1056 MR#: [id number] Acct: [id number] Name: MORENA PATTON Rep #:[id number] : 1960 63 From: Virginie Aguillon MD [...] your pharmacy, this can also be obtained fsow-xoy-hblgimp at a pharmacy as you were low [...] Recorder Preventi (Urgent) Timeframe: 1 Day Facility: [facility] - Location: Cardiovascular Services Ordered [...] MD; No Primary Care Physician ~ Signed [facility] Work Phone: 1(891) 777-220207-17-2023 Progress note Author Virginie Aguillon [facility] February 15, 2023 2:30pm Note Date/Time February 15, 2023 2:30 pm [facility] Medical Records Department [address] [place] [address] Progress Note - Hospitalist 02/15/23 1422 MR#: [id number] Acct: [id number] Name: MORENA PATTON Rep #:[id number] : 1960 63 From: Virginie Aguillon MD PCP: Care Physician,No Primary Status :ADM CYRIL Location: [place] [address] Reason for Visit Reason for Visit: Diagnoses [...] 23.7 L, Lymph % (Auto) 61.1 H, Roseau % (Auto) 11.0 H, Eos % (Auto) [...] however so came to ED -Was in [facility] twice in January and hat CTA c/abd/pelv [...] documentation, 52minutes Charges/Coding Visit Charges Inpatient E&M: 05979 Subs Hosp L3 02/15/23 1430 <Electronically signed by Virginie Aguillon MD> Cosigner Signature (if applicable): CC: ~ Signed [facility] Work Phone: 1(984) 523-364007-16-2023 Progress note Author Drew Solis [facility] February 14, 2023 9:50am Note Date/Time February 14, 2023 7:38 am [facility] Medical Records Department [address] [place] [address] Progress Note - Hospitalist 02/14/23 0736 MR#: [id number] Acct: [id number] Name: MORENA PATTON Rep #:[id number] : 1960 63 From: Drew Solis MD PCP: Care Physician,No Primary Status :ADM CYRIL Location: [place] [address] Reason for Visit Reason for Visit: Diagnoses [...] (Auto) 39.8 L, Lymph % (Auto) 46.3H, Roseau % (Auto) 10.8 H, Eos % (Auto) [...] 37.1 L, Lymph % (Auto) 47.8 H, Roseau % (Auto) 12.3 H, Eos % (Auto) [...] documentation, 50Minutes Charges/Coding Visit Charges Inpatient E&M: 58087 Subs Hosp L3 02/14/23 0950 <Electronically signed by Drew Solis MD> Cosigner Signature (if applicable): CC: ~ Signed [facility] Work Phone: 1(593) 711-621807-16-2023 History and physical note Author Jeniffer Campos [facility] February 13, 2023 10:41pm Note Date/Time February 13, 2023 8:47 pm [facility] Medical Records Department [address] [place] [address] [place] [address] H&P Exam - Hospitalist 02/13/232044 MR#: [id number] Acct: [id number] Name: MORENA PATTON Rep #:[id number] : 1960 63 From: Jeniffer Campos MD PCP: Care Physician,No Primary Status :ADM CYRIL Location: [address] HPI - General General Date [...] for pain control) who presents to the [facility] ED on 02/13/23 with history of [...] no prodrome. She was recently seenin the [employer] system in January twice from records noted [...] am unable tosee these records in the [employer] system. There was recent CTA evaluation/lab work-up [...] (Auto) 39.8 L, Lymph % (Auto) 46.3H, Roseau % (Auto) 10.8 H, Eos % (Auto) [...] 20:32 EDT Reading Location ID and State: [facility] / [place] , Service support , Assessment [...] for pain control) who presents to the [facility] ED on 02/13/23 with history of [...] with history of peptic ulcer disease: Admission ovrcurrxjo54.2, baseline prior has been 12-13 but there [...] 75 minutes. Charges/Coding Visit Charges Inpatient E&M: 42168 Init Hosp L3 02/13/23 2241 <Electronically signed by Jeniffer Campos MD> Cosigner Signature (if applicable): CC: Dr. Jeniffer Capmos MD; No Primary Care Physician~ Signed [facility] Work Phone: [phone]) 540-739207-16-2023 Discharge summary Author Albert Carbone [facility] February 13, 2023 10:07pm Note Date/Time February 13, 2023 7:43 pm [facility] Medical Records Department [address] [place] [address] Emergency Department Summary 02/13/23 MR#: [id number] Acct: [id number] Name: MORENA PATTON Rep #:[id number] : 1960 63 From: Albert Carbone MD PCP: Care Physician,No Primary Status :ADM CYRIL Location: [place] [address] Albert Carbone MD on [...] son is arrived. He said at a [facility] which I believe was [facility] they found that she had valvular heart disease. He thinks that may be the causeof her syncopal episodes. He preferred that she go to [place]. I explained to him that that may not be a possibility tonight. He wants to sign out and take her to [facility] emergency department himself. 02/13/232199<Electronically signed by [...] Reaction Status Date / Time buprenorphine [From [facility]] Allergy Rash Verified 10/22/22 10:10 NSAIDS (Non-Steroidal [...] girdle intact. Moving all 4 extremities. Normal regional economist strength. Normal dorsi plantarflexion. Neurologically. She is [...] 39.8 L Lymph % (Auto) 46.3 H Roseau % (Auto) 10.8 H Eos % (Auto) [...] 20:32 EDT Reading Location ID and State: [address] [place] [address] , Service support , Chest x-ray, portable, single view showed no acute abnormality. Normal cardiac silhouette. Normal mediastinum. Normal lung ferrer. Rhythm Strip Rhythm Strip: Sinus Rhythm Rate: 78 Ectopy: None EKG Initial EKG: Attestation: I personally reviewed and interpreted this EKG as follows: Interpretation: No Acute Injury Pattern Comments: Normal sinus rhythm rate of 78. No acute signs of MN nor ischemia nor dysrhythmia. Unremarkable EKG. Discharge Plan Dx/Rx/DC Orders Clinical Impression: Closed head injury, Syncope, Fall Disposition Disposition: Acute Care [facility] What to do if you have Problems For any increased pain, shortness of breath, bleeding, nausea or vomiting, chestpain, or any unexpected problems, contact your Primary Care Provider. Call [facility] ([phone]) or report to the closest Emergency Room. Call 911 if necessary. 02/13/232104 <Electronically signed by Albert Carbone MD> Cosigner Signature (if applicable): CC: No Primary Care Physician ~ Signed [facility] Work Phone: 1(171) 103-971907-15-2023 Discharge summary Author Albert Carbone [facility] February 13, 2023 10:07pm Note Date/Time February 13, 2023 7:43 pm [facility] Medical Records Department [address] [place] [address] Emergency Department Summary 02/13/23 MR#: [id number] Acct: [id number] Name: MORENA PATTON Rep #:[id number] : 1960 63 From: Albert Carbone MD PCP: Care Physician,No Primary Status :ADM CYRIL Location: [place] [address] Albert Carbone MD on [...] son is arrived. He said [facility] that she had valvular heart disease. He thinks that may be the causeof her syncopal episodes. He preferred that she go to [place]. I explained to him that that may not be a possibility tonight. He wants to sign out and take her to [facility] emergency department himself. 02/13/232199<Electronically signed by [...] Prior similar symptoms: Yes Recent Illness/[facility] Medical History (Updated 02/13/23 @ 20:47 by [...] girdle intact. Moving all 4 extremities. Normal regional economist strength. Normal dorsi plantarflexion. Neurologically. She is [...] 39.8 L Lymph % (Auto) 46.3 H Roseau % (Auto) 10.8 H Eos % (Auto) [...] 20:32 EDT Reading Location ID and State: [facility] / [place] , Service support , Chest x-ray, portable, single view showed no acute abnormality. Normal cardiac silhouette. Normal mediastinum. Normal lung ferrer. Rhythm Strip Rhythm Strip: Sinus Rhythm Rate: 78 Ectopy: None EKG Initial EKG: Attestation: I personally reviewed and interpreted this EKG as follows: Interpretation: No Acute Injury Pattern Comments: Normal sinus rhythm rate of 78. No acute signs of MN nor ischemia nor dysrhythmia. Unremarkable EKG. Discharge Plan Dx/Rx/DC Orders Clinical Impression: Closed head injury, Syncope, Fall Disposition Disposition: Acute Care Hospital [facility] What to do if you have Problems For any increased pain, shortness of breath, bleeding, nausea or vomiting, chestpain, or any unexpected problems, contact your Primary Care Provider. Call [employer] [facility] ([phone]) or report to the closest Emergency Room. Call 911 if necessary. 02/13/23 4947 <Electronically signed by Albert Carbone MD> Cosigner Signature (if applicable): CC: No Primary Care Physician ~ Signed [facility] Work Phone: 1(626) 101-777003-23-[address] Tom [facility] October 22, 2022 2:51pm Note Date/Time October 22, 2022 10: 39am [facility] Medical Records Department [address] [place] [address] Emergency Department Summary 10/22/22 MR#: [id number] Acct: [id number] Name: MORENA PATTON Rep #:[id number] : 1960 62 From: Blaise Tom DO [...] couple of falls at home this week. [facility] Medical History ADHD (attention deficit hyperactivity [...] Reaction Status Date / Time buprenorphine [From [facility]] Allergy Rash Verified 10/22/22 10:10 NSAIDS (Non-Steroidal [...] 45.8 L Lymph % (Auto) 43.4 H Roseau % (Auto) 7.5 Eos % (Auto) 2.5 [...] Clarity Clear Urine pH 7.0 Ur Specific [place] 1.015 Urine Protein 30 H Urine Glucose [...] your Primary Care Provider. Call [facility] ([phone]) or report to the closest Emergency Room. Call 911 if necessary. 10/22/22 1451 <Electronically signed by Blaise Tom DO> Cosigner Signature (if applicable): CC: No Primary Care Physician ~ Signed [facility] Work Phone: 1(906) 379-302603-10-[address] Rutledge [facility] October 09, 2022 5:57pm Note Date/Time October 09, 2022 5:4 1pm [facility] Medical Records Department [address] [place] [address] Emergency Department Summary 10/09/22 MR#: [id number] Acct: [id number] Name: MORENA PATTON Rep #:[id number] : 1960 62 From: Lisa ROY PCP: [...] been taking Excedrin for the headaches. [facility] <MANUELA Hickman - Last Filed: 10/09/22 17:50> [facility] Medical History ADHD (attention deficit hyperactivity disorder) [...] Reaction Status Date / Time buprenorphine [From [facility]] Allergy Rash Verified 10/09/22 17:24 NSAIDS (Non-Steroidal [...] <MANUELA Hickman - Last Filed: 10/09/22 17:50> [facility] Narrative Medical decision making narrative: Patient had [...] CT scan. She was advised to take jurk-hbp-vocvkhj pain relievers and follow-up with her doctor next week. She was given return precautions and discharged in stable condition. Differential: Concussion, intracranial bleed, skull fracture Test considered but not ordered: Cording to Polish CT head rule no indication for head imaging. Prescriptions considered but I think she can take iqrb-pgo-dvbnfuz Tylenol or Motrin. <Dr. Anthony Rutledge MD - Last Filed: 10/09/22 17:57> [facility] Narrative Medical decision making narrative: Patient had [...] CT scan. She was advised to take njhr-sxr-xuzjhku pain relievers and follow-up with her doctor next week. She was given return precautions and discharged in stable condition. Differential: Concussion, intracranial bleed, skull fracture Test considered but not ordered: Cording to Polish CT head rule no indication for head imaging. Prescriptions considered but I think she can take angu-gme-kauxaqd Tylenol or Motrin. I have personally performed [...] neurologic exam Medical Decision Making per the Polish CT head rule and [place] rule imaging is not required. Per [employer] [...] your Primary Care Provider. Call [facility] ([phone]) or report to the closest Emergency Room. Call 911 if necessary. 10/09/221749 <Electronically signed by Lisa ROY> Cosigner Signature (if applicable): 10/09/221756 <Electronically signed by Teo WOO> CC: No Primary Care Physician ~ Signed [facility] Work Phone: 1(334) 880-133207-28-2022 Telephone encounter Note* Telephone Encounter - Joey Mcnamara - 02/26/2022 10:10 AM EDT Care Gaps Scheduling Contact Details: Called, left message Health Maintenance Due: Medicare AWV / PCP Visit: Due Eye Exam: Not due Foot Exam: Not due Annual Blood Work: Due Mammogram: Due, but pt has no order in Active Requests FIT: Not due [id number] Miscellaneous Notes* Telephone Encounter - Joey Mcnamara - 02/26/2022 10:10 AM EDT Care Gaps Scheduling Contact Details: Called, left message Health Maintenance Due: Medicare AWV / PCP Visit: Due Eye Exam: Not due Foot Exam: Not due Annual Blood Work: Due Mammogram: Due, but pt has no order in Active Requests FIT: Not due documented in this [id number] Hospital course Narrative* Berkley Jaramillo MD - 01/01/2022 7:31 AM EDT DISCHARGE SUMMARY [address] [address] Morena Patton Date of : 1960 61 [...] Referral Type: Service Level Authorization Referral Location: [facility] Number of Visits Requested: 3 Expiration Date: 12/31/22 Future Appointments Date Time Provider Department Center 01/14/2022 10:45 AM Macy Smith DO [facility] 02/19/2022 10:30 AM Mary Ellen Miller MD [facility] Condition at Discharge Improved Activity No restrictions Diet No restrictions Disposition Home Functional Status Ambulatory Reason for Hospitalization Upper Gastrointestinal Hemorrhage Significant Findings EGD and colonoscopy 12/30/21 IMPRESSION: 1. Two clean based ([place] Class III) ulcers noted at the anastomosis [...] underwent EGD and colonoscopy. Two clean based ([place]ue[place] Class III) ulcers were noted at the [...] Associated Diagnoses: COPD (chronic obstructive pulmonary disease) ([facility]) ammonium lactate (LAC-HYDRIN) 12 % lotion Apply 80 mL topically 2 times daily. Qty: 500 g, Refills: 3 Associated Diagnoses: Dry skin !! beclomethasone (QVAR) 40 MCG/ACT inhaler Inhale 1 Puff 2 times daily. Qty: 7.3 g, Refills: 3 Associated Diagnoses: COPD (chronic obstructive pulmonary disease) ([facility]) methocarbamol (ROBAXIN-750) 750 MG tablet Take 1 [...] MD Internal Medicine, PGY-1 documented in this [id number] History of Present illness Narrative* Carlos Katz - 12/31/2021 5:03 PM EDT [facility] Spiritual Care Services Services provided for: Patient Services initiated by: Staff Business Development Engineer Reason for services: Initial visit Assessment/Narrative: Patient just lost a first cousin apparently in good health last week Jainism/Spirituality: Non Rastafarian Spiritual Concerns: Grief/Loss Coping: Role of adventism/spirituality Family: Support and Dynamics Interventions: Rapport building and prayer Outcome: Expressed appreciation Plan of Care: On-going Visits Carlos Katz Pager: [phone] Extension: [phone] * Orestes Gaspar MD - 12/31/2021 3:42 [...] Hemolysis present 12/28/21 172 23 EGD: Two [place] Class III ulcers at anastomosis site of [...] Concerns No PCP VERIFIED No ADMISSION INSURANCE [employer];Medicare Medicare HMO (comment) Transportation to and/or [...] plans as warranted. Adonay CHOPRA, RN Inpatient Box Builder * Berkley Jaramillo MD - 12/30/2021 7:24 AM EDT Images from the original note were not included. INTERNAL MEDICINE TEAM 9 DAILY PROGRESS NOTE Patient: Morena Patton : 1960 Sex: female Room: [place] [address] Admit Date: 12/28/2021 Today's Date: 12/30/2021 Length [...] Morena CHANDRA : 1960 Sex: female Room: [place] [address] Admit Date: 12/28/2021 Today's Date: 12/29/2021 Length [...] Goetz MD Internal Medicine, PGY-1 Personal Pager: [phone] Team 9 Pager: [phone] documented in this [id number] Hospital Discharge instructions* Discharge Instructions* Berkley Jaramillo [...] be in 10 years. documented in this [id number] Note* Care Plan Note - Catalina Hyde [...] adult patient will be met Outcome: Progressing [id number] Miscellaneous Notes* Care Plan Note - Catalina [...] - 12/30/2021 10:03 AM EDT Morena Patton [id number] 12/30/2021 HISTORY & PHYSICAL: Patient's history with [...] Ortiz MD 12/30/21 10:03 AM Morena Patton [id number] 12/30/2021 OFFAL BALER: Todd Ortiz MD ATTENDING:Davon Ha MD ([id number]) Procedure(s): ESOPHAGOGASTRODUODENOSCOPY AND COLONOSCOPY INSTRUMENT: Scope #[id number] COLONOSCOPE #3006 SEDATION: Moderate: Oxygen 2L via [...] normal GASTROJEJUNAL ANASTOMOSIS: Two clean based ulcers ([place] Class III) with surrounding erythematous mucosa noted [...] transillumination of right lower quadrant. Prep was [place] Bowel Prep Right Colon: Minor amount of residual staining, small fragments of stool and/or opaque liquid, [place] Bowel Prep Transverse Colon: Entire colon seen well, [place] Bowel Prep Left Colon:Minor amount of residual [...] and collapse (Primary Diagnosis) [780.2.ICD-9-CM] Peptic ulcer [485921] Gastrointestinal hemorrhage, unspecified gastrointestinal hemorrhage type [7422686] 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-en-Y gastric bypass [668288] Anastomotic ulcer [368418] Chronic iron deficiency anemia [8596106] JANIE PATH SPECIMEN SENT: no SPECIMEN: None PHOTOGRAPH TAKEN:yes COMPLICATIONS DURING PROCEDURE: none EBL (estimated blood loss): none IMPRESSION: 1. 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 To be discussed with attending physician in the morning. Plan is preliminary until finalized by the attending physician. Luis Daniel Ahumada Internal Medicine, PGY-2 Pager: [phone] documented in this [id number] Note* OP Note - Davon Ha MD - 12/30/2021 10:03 AM EDT Morena Patton [id number] 12/30/2021 HISTORY & PHYSICAL: Patient's history with [...] Ortiz MD 12/30/21 10:03 AM Morena Patton [id number] 12/30/2021 OFFAL BALER: Todd Ortiz MD ATTENDING:Davon Ha MD ([id number]) Procedure(s): ESOPHAGOGASTRODUODENOSCOPY AND COLONOSCOPY INSTRUMENT: Scope #[id number] COLONOSCOPE #3006 SEDATION: Moderate: Oxygen 2L via [...] normal GASTROJEJUNAL ANASTOMOSIS: Two clean based ulcers ([place] Class III) with surrounding erythematous mucosa noted [...] transillumination of right lower quadrant. Prep was [place] Bowel Prep Right Colon: Minor amount of residual staining, small fragments of stool and/or opaque liquid, [place] Bowel Prep Transverse Colon: Entire colon seen well, [place] Bowel Prep Left Colon:Minor amount of residual [...] and collapse (Primary Diagnosis) [780.2.ICD-9-CM] Peptic ulcer [671645] Gastrointestinal hemorrhage, unspecified gastrointestinal hemorrhage type [3960140] 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-en-Y gastric bypass [825024] Anastomotic ulcer [037901] Chronic iron deficiency anemia [3631924] JANIE PATH SPECIMEN SENT: no SPECIMEN: None PHOTOGRAPH TAKEN:yes COMPLICATIONS DURING PROCEDURE: none EBL (estimated blood loss): none IMPRESSION: 1. Two clean based ([place] Class III) ulcers noted at the anastomosis [...] Ha MD Department of Gastroenterology & Hepatology [id number] Note* Care Plan Note - Kimi Amezcua [...] adult patient will be met Outcome: Progressing [id number] History and physical note* Orestes Gaspar MD [...] 3. Continue usual meds Orestes Gaspar MD [id number] History and physical note* Orestes Gaspar MD [...] Morena Chandra : 1960 Sex: female Room: [place] [address] Admit Date: 12/28/2021 Today's Date: 12/28/2021 Length [...] and doesn't remember anything after that - [place] her face was cold/had cold towels on [...] Surgical History: Procedure Laterality Date BARIATRIC SURG[place] [facility] [place] 1978 Lost child COLONOSCOPY 3-03 [...] of drug use. Family History: Cousin had [place] Review of patient's family history indicates: Problem: [...] Goetz MD Internal Medicine, PGY-1 Personal Pager: [phone] Team 9 Pager [phone] documented in this [id number] Consult note* Davon Ha MD - 12/29/2021 10:00 AM EDTAssociated Order(s): IP GASTROENTEROLOGY CONSULT Images from the original note were not included. Department of Gastroenterology and Hepatology Consult H&P Note GI Attending Physician: Dr. Davon Ha MD ([id number]) Patient: Morena CHANDRA Location: [facility] Reason for Consult: coffee ground emesis, [...] stomach 3. Normal remnant stomach Colonoscopy 2009 [facility] (report not available) Colonoscopy 2002 Colon [...] with GI attending, Dr. Davon Ha MD ([id number]). Primary team updated. Please don't hesitate to reach out with questions or concerns. We will continue to follow with you. Personal Pager [phone] GI Consult Pager (nights and weekends) [phone] Mary Ellen Miller MD Gastroenterology Fellow Division of Gastroenterology & Hepatology [facility] 12/29/21 ATTENDING NOTE The patient was [...] Ha MD Department of Gastroenterology & Hepatology [facility] Work Phone: 1(338) 220-679805-30-2022 Consult note* Davon Ha MD - 12/29/2021 10:00 AM EDTAssociated Order(s): IP GASTROENTEROLOGY CONSULT Images from the original note were not included. Department of Gastroenterology and Hepatology Consult H&P Note GI Attending Physician: Dr. Davon Ha MD ([id number]) Patient: Morena CHANDRA Location: Reason for Consult: [...] stomach 3. Normal remnant stomach Colonoscopy 2009 [facility] (report not available) Colonoscopy 2002 Colon [...] with GI attending, Dr. Davon Ha MD ([id number]). Primary team updated. Please don't hesitate to reach out with questions or concerns. We will continue to follow with you. Personal Pager [phone] GI Consult Pager (nights and weekends) [phone] Mary Ellen Miller MD Gastroenterology Fellow Division of Gastroenterology & Hepatology [facility] 12/29/21 ATTENDING NOTE The patient was [...] Ha MD Department of Gastroenterology & Hepatology [facility] documented in this [id number] Emergency department Note* Mayra Leong - 12/29/2021 8:15 AM EDT Pts candido fully changed. [id number] Emergency department Note* Mayra Leong - 12/29/2021 8:15 AM EDT Pts liliana and andrew fully changed. * Wayne Benton MD - 12/28/2021 7:46 PM EDT ED Attending Note 61 year old female hx PUD with GIB in 2019 at green party today had 1 drink and says family [...] patient is accepted. Harshad Emery DO PGY2 [id number] * Wayne Benton MD - 12/28/2021 5:05 PM EDT EMERGENCY DEPARTMENT - VISIT NOTE HISTORY OF PRESENT ILLNESS Chief Complaint Patient presents with Fainting Per ems, family states patient passed out, +etoh and marijuana HIPAA: Verbal permission granted from patient to discuss case, including protected health information, in front of family / friends in room at the time of the evaluation. Mail Order Clerk: not needed - patient preferred language is Slovak. The history is provided by the Patient. Morena Chandra is a 61 year old female Cj-en-y Gastric bypass (1999), Reported history of PUD (likely marginal), HTN, Iron Deficiency Anemia, Depression, PTSD, GERD, EtOH abuse, chronic low backpain, and osteoarthritis presenting to the ED for reported syncope. Patient states that she was at a green party with her family. She was sitting down [...] Per family, the patient was at the green party and had two drinks. In the afternoon, she dropped her cup and fell back. Family saw her fall back in her chair. Said that her eyes were rolling in her head but no significant shaking or seizure like activity, no loss of bladder function. 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 [facility]. IMPRESSION AND DISPOSITION [...] 202912/28/21 Dr. Wayne Benton documented in this [id number] Note* Care Plan Note - Luis Daniel [...] Code Dispo: Inpatient Rest of plan per internal medicine nurse note. To be discussed with attending physician in the morning. Plan is preliminary until finalized by the attending physician. Luis Daniel Ahumada Internal Medicine, PGY-2 Pager: [phone] [employer] Work Phone: 1(799) 472-886805-29-2022 History and physical note* Viviane Goetz MD - 12/28/2021 8:54 PM EDT Images from the original note were not included. INTERNAL MEDICINE TEAM 9 HISTORY AND PHYSICAL Patient: Morena Chandra : 1960 Sex: female Room: [place] [address] Admit Date: 12/28/2021 Today's Date: 12/28/2021 Length [...] and doesn't remember anything after that - [place] her face was cold/had cold towels on [...] of drug use. Family History: Cousin had [place] Review of patient's family history indicates: Problem: [...] Goetz MD Internal Medicine, PGY-1 Personal Pager: [phone] Team 9 Pager [phone] [id number] Physician Emergency department Note* Wayne Benton MD - 12/28/2021 7:46 PM EDT ED Attending Note 61 year old female hx PUD with GIB in 2019 at green party today had 1 drink and says family [...] to stay in hospital Wayne Benton MD [facility] Work Phone: 1(818) 948-576305-29-2022 Physician Emergency department Note* Harshad Emery DO [...] patient is accepted. Harshad Emery DO PGY2 [id number] [employer] Work Phone: [phone] Physician Emergency department Note* Wayne Benton MD [...] room at the time of the evaluation. Mail Order Clerk: not needed - patient preferred language is Slovak. The history is provided by the Patient. Morena Chandra is a 61 year old female Cj-en-y Gastric bypass (1999), Reported history of PUD (likely marginal), HTN, Iron Deficiency Anemia, Depression, PTSD, GERD, EtOH abuse, chronic low backpain, and osteoarthritis presenting to the ED for reported syncope. Patient states that she was at a green party with her family. She was sitting down [...] Per family, the patient was at the green party and had two drinks. In the afternoon, she dropped her cup and fell back. Family saw her fall back in her chair. Said that her eyes were rolling in her head but no significant shaking or seizure like activity, no loss of bladder function. 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 Plan[facility] result. IMPRESSION AND DISPOSITION [...] note No data available for this section [facility] Evaluation note* Diagnosis Gastrointestinal hemorrhage, unspecified [...] in [facility] Work Phone: Evaluation note* Diagnosis Onset Date Resolution Status Closed head injury acute Fall acute Syncope acute [facility] Work Phone: Evaluation note* Diagnosis Onset Date Resolution Status Anxiety and depression acute Closed head injury acute Fall acute Syncope acute Hypertension chronic Insomnia chronic [facility] Work Phone: Evaluation note* Diagnosis [...] Iron deficiency anemia following bariatric surgery resolved [facility] Work Phone: Evaluation note* Diagnosis [...] myelopathy- Primary documented in this encounter [employer] Work Phone: Hospital Discharge instructions Additional Instructions Take Tylenol 1000 mg every 6 hours as needed and follow-up with your doctor next week if symptoms are persistent.[facility] Work Phone: Hospital Discharge instructions Additional Instructions Patient's evaluation at [facility] was unremarkable. Blood counts are stable. Electrolytes are unremarkable. Potassium is elevated due to hemolysis. Chest x- ray, EKG and CAT scan of the brain were unremarkable. We had planned to admit her for a syncopal event. Family believes that she has a recent work-up done at [facility] that showed valvular heart disease and they would prefer to go there for further evaluation.[facility] Work Phone: Hospital Discharge instructions Additional Instructions Cardiac workup negative. D-dimer negative. Chest x-ray negative. Hemoglobin 11.5. White count 5.3. Creatinine 1.04. Follow-up as an outpatient as given to further testing. If you have recurrent symptoms, return to the ED for reevaluation.[facility] Work Phone: Hospital Discharge instructions No data available for this section [facility] Progress note No data available for this section [facility] Reason for referral (narrative)* Tests/Procedures (Routine) - Pending Review Specialty Diagnoses / Procedures Referred By Contact Referred To Contact Cardiovascular Testing Diagnoses Dizziness Hilton Johnson MD [address] [place] [address] [facility] CARD NON INVASIVE [address] [id number] Referral ID Status Reason Start Date Expiration Date V isits Requested Visits Authorized [id number] Pending Review 03/09/2023 03/09/2024 1 1 Scheduling [...] call the [facility] and V[facility] Center at [phone] (BEAT) if you are unable to keep [...] menstrual period 08/27/2002. [facility] * Service Level Authorization (Routine) - Pending Review Specialty Diagnoses / Procedures Referred By Contac t Referred To Contact Cardiology Diagnoses Dizziness Hilton [place] [address] [facility] [address] [place] [address] Referral ID Status Reason Start Date Expiration Date V isits Requested Visits Authorized [id number] Pending Review 03/09/2023 03/09/2024 3 3 Scheduling Instructions Please call the [facility] Center at [phone] to schedule an appointment if one was not made for you today. Question Answer What is the primary reason for consult? Dizziness [10] At what location would you like the patient to be seen? [facility] Summary Purpose Family History No Family [...] Will No July 07 12:21pm Power of Oceanographer Geological No July 07, 2022 12:21pm Advance Directive Response Recorded Date/ Time Advance Directives No March 05 10:27am Living Will No October 09, 2022 5:35pm Power of Oceanographer Geological No October 09 5:35pm Advance Directive Response Recorded Date/ Time Advance Directives No March 05 11:27am Living Will No October 22, 2022 11:50am Power of Oceanographer Geological No October 22 11:50am Advance Directive Response Recorded Date/ Time Advance Directives No March 05 11:27am Living Will No February 13, 2023 7:26pm Power of Oceanographer Geological No February 13 7:26pm Advance Directive Response Recorded Date/ Time Advance Directives No March 05 11:27am Living Will No February 13, 2023 10:30pm Power of Oceanographer Geological No February 13 10:30pm Latest Code Status [...] Will No March 23 4:25pm Power of Oceanographer Geological No March 23, 023 4:25pm Advance Directive Response Recorded Date/ Time Advance Directives No March 05, 021 11:27am Living Will No November 16, 2023 2:13pm Power of Oceanographer Geological No November 15 2:13pm Date Activated Date [...] Chronic iron deficiency anemia Orestes Gaspar MD [address] [place] [address] S GASTROENTEROLOGY [address] [place] [address] Referral ID Status Reason Start Date Expiration Date V isits Requested Visits Authorized [id number] Pending Review 12/31/2021 12/31/2022 3 3 Scheduling [...] To Contact Cardiovascular Testing Emergency Medicine [address] [place] [address] [facility] CARD NON INVASIVE [address] [id number] Referral ID Status Reason Start Date Expiration Date V isits Requested Visits Authorized [id number] Authorized 12/28/2021 12/28/2022 1 1 Scheduling Instructions [...] call the [facility] and Vascular Center at [phone] (BEAT) if you are unable to keep [...] spondylosis without myelopathy Drew Rosenbaum, DO [address] [place] [address] [facility] [place] [address] Referral ID Status Reason Start Date Expiration Date Visits Requested Visits Authorized [id number] [facility] 01/06/2024 01/05/2025 1 1 Scheduling Instructions You have been referred to the [facility]aling Center. You will be contacted to schedule your appointment within 24 - 48 hours. If you are not contacted within this time frame please call the Pain and Healing Center at [phone] to schedule your appointment. Question Answer Reason [...] section and content) DATE CREATED AUTHOR 07/08/2019 [facility] ([place]) DATE CREATED AUTHOR AUTHOR'S ORGANIZ ATION 02/21/2024 [employer] [facility] DATE CREATED AUTHOR AUTHOR'S ORGANIZ ATION 06/11/2024 [facility] DATE CREATED AUTHOR AUTHOR'S ORGANIZ ATION 11/23/2024 [facility] DATE CREATED AUTHOR AUTHOR'S ORGANIZ ATION 06/14/2025 [facility] Reason for Visit (unrecogniz ed section and content) Reason Comments Fainting Per ems, family stat es patient passed out, +etoh and marijuana Specialty Diagnoses / Procedures Referred By Contac t Referred To Contact Emergency Medicine Diagnoses Peptic ulcer, site unspecified, unspecified as acute or chronic, without hemorrhage or perforation Procedures . [email or web address] [facility] [place] [place] [address] Phone: [phone] [employer] [place] [address] Phone: [phone] Referral ID Status Reason Start Date Expiration Date Visits Re quested Visits Authorized [id number] 3 3 Reason Onset Date Comments Left [...] Care Teams (unrecognized sec tion and content) Assistant Director Of Financial Aid Relationship Specialty Start Date End Date Prateek Moscoso LISW [address] [place] [id number] Oil Pipeline Operator Social Work 05/07/20 Assistant Director Of Financial Aid Relationship Specialty Start Date End Date Prateek Moscoso LISW [address] [place] [address] Oil Pipeline Operator Social Work 05/07/20 Team Status: Active Member Role Status Dates No Primary Care Physician Family Provider Active No Primary Care Physician Primary Care Provider Active Team Status: Inactive Member Role Status Dates Dr. Jose Teton , DO Attending Provider, Emergency P rovider [...] Dr. Drew Solis MD Other Provider Active Assistant Director Of Financial Aid Relationship Specialty Start Date End Date Prateek Moscoso LISW [address] [place] [address] Oil Pipeline Operator Social Work 05/07/20 Assistant Director Of Financial Aid Relationship Specialty Start Date End Date Prateek Moscoso LISW [address] [place] [address] Oil Pipeline Operator Social Work 05/07/20 Assistant Director Of Financial Aid Relationship Specialty Start Date End Date Prateek Moscoso LISW [address] [place] [address] Oil Pipeline Operator Social Work 05/07/20 Assistant Director Of Financial Aid Relationship Specialty Start Date End Date Prateek Moscoso LISW [address] [place] [address] Oil Pipeline Operator Social Work 05/07/20 Assistant Director Of Financial Aid Relationship Specialty Start Date End Date Hilton Johnson MD [address] [place] [id number] PCP - General Family Medicine 03/15/23 Prateek Moscoso LISW [address] [place] [address] Oil Pipeline Operator Social Work 05/07/20 Team Status: Active Member Role Status Dates No Primary Care Physician Primary Care Provider Active Dr. Virginie Aguillon MD Attending Provider, Referring Pr ovider Active Assistant Director Of Financial Aid Relationship Specialty Start Date End Date Hilton Johnson MD [address] [place] [id number] PCP - General Family Medicine 03/15/23 Prateek Moscoso LISW [address] [place] [address] Oil Pipeline Operator Social Work 05/07/20 Assistant Director Of Financial Aid Relationship Specialty Start Date End Date Hilton Johnson MD [address] [place] [id number] PCP - General Family Medicine 03/15/23 Prateek Moscoso LISW [address] [place] [address] Oil Pipeline Operator Social Work 05/07/20 Team Status: Inactive Member Role Status Dates No Primary Care Physician Primary Care Provider Active Dr. Charly Almonte DO Emergency Provider Active Assistant Director Of Financial Aid Relationship Specialty Start Date End Date Hilton Johnson MD [address] [place] [address] PCP - General Family Medicine 03/15/23 Prateek Moscoso LSW [address] [place], [place] [id number] Oil Pipeline Operator Social Work 05/07/20 Assistant Director Of Financial Aid Relationship Specialty Start Date End Date Hilton Johnson MD [address] [place] [id number] PCP - General Family Medicine 03/15/23 Prateek Moscoso LSW [address] [place], [place] [id number] Oil Pipeline Operator Social Work 05/07/20 Assistant Director Of Financial Aid Relationship Specialty Start Date End Date Hilton Johnson MD [address] [place] [id number] PCP - General Family Medicine 03/15/23 Prateek Moscoso LSW [address] [place] [address] Oil Pipeline Operator Social Work 05/07/20 Assistant Director Of Financial Aid Relationship Specialty Start Date End Date Hilton Johnson MD [address] [place] [id number] PCP - General Family Medicine 03/15/23 Prateek Moscoso LSW [address] [place] [address] Oil Pipeline Operator Social Work 05/07/20 Goals (unrecognized section and [...] BE BASED ON THE PRIMARY CLINICAL RECORDS. [email or web address] [facility]. provides no warranty or guarantee of the accuracy or completeness of information in this document.
[2025-07-08 20:47] LABS: Prothrombin Time (Protime)PT. 13.1 SECONDS (11.7-14.9)
[2025-07-08 20:52] LABS: Magnesium 1.8 mg/dL (1.5-2.2)
[2025-07-08] MEDS: Pantoprazole Sodium 40 MG in 0.9% Normal Saline (100mL MB+) 100 ML 300 MG IV (21:48)
[2025-07-08] MEDS: Lactated Ringers 1,000 ML 100 ML IV (21:49)
[2025-07-08] MEDS: 0.9% Saline Lock 10 ML Syringe IV (21:49)
[2025-07-08 22:08] LABS: Mucous, Urine 0 SEEN /hpf (<or=2+); Red Blood Cells-Urine 0 SEEN /hpf (0-5)
[2025-07-08 22:10] LABS: Color, Urine Yellow (Yellow); Glucose, Dipstick Normal (Normal); Ketone-Dipstick 5 mg/dl (Negative); Leukocyte Esterase-Dipstick Negative /ul (Negative); Nitrite-Dipstick Negative (Negative); Occult Blood-Urine 10 /ul (Negative); Protein-Dipstick 15 mg/dl (Negative); Specific Gravity, Urine 1.010 (1.002-1.030); Urine Bilirubin Dipstick Negative (Negative)
[2025-07-08 22:33] LABS: Squamous Epithelial Cells - UA 10-25 SEEN /hpf (5-10)
[2025-07-08 23:03] LABS: Hematocrit 25.3 % (37-47); Hemoglobin 7.8 g/dL (12.0-15.0)
[2025-07-08 23:18] LABS: Troponin T High Sens 4 HR 11 ng/L (<=14)
[2025-07-09] VITALS (7 sets, daily range): BP systolic 92–142; BP diastolic 63–85; PULSE 78–85; RESP 16; TEMP 36.2–36.9; O2SAT 96–100; BMI 24.0
[2025-07-09 04:10] LABS: Hematocrit 24.4 % (37-47); Hemoglobin 7.5 g/dL (12.0-15.0); Immature Granulocytes Count 0.040 X10^3/uL (0.0-0.0); Mean Corp Hgb Conc 30.7 g/dL (32-36); Mean Corpuscular Volume 74.8 fL (81-99); Mean Platelet Vol. 9.7 fl (6.2-12.0); NRBC Flagged by Analyzer 0.5 % (0-5); POSITIVE MORPHOLOGY YES; Platelet Count 311 K/mm3 (150-450); RBC Distribution Width CV 23.1 % (11.6-14.6); RBC Distribution Width SD 58.4 fl (35.1-43.9); Red Blood Count 3.26 M/mm3 (4.2-5.4); White Blood Count 8.1 K/mm3 (4.4-11.0)
[2025-07-09 04:20] LABS: Prothrombin Time (Protime)PT. 14.3 SECONDS (11.7-14.9)
[2025-07-09 04:21] LABS: Differential Indicated SCAN CRITERIA MET; Partial Thromboplast Time 26.7 Seconds (24.1-36.2)
[2025-07-09 04:35] LABS: Anion Gap 9 (5-15); BUN 15 mg/dL (4-19); BUN/Creat Ratio 15.2 RATIO (10-20); Calcium,Total 8.9 mg/dL (7.6-11.0); Carbon Dioxide 20.2 mmol/L (21.0-32.0); Chloride 103 mmol/L (98-108); Estimated Creatinine Clearance 53.58 ml/min (50-250); Glucose 115 mg/dL (70-99); Potassium 4.1 mmol/L (3.3-5.1)
[2025-07-09 04:58] LABS: Anisocytosis 2+
[2025-07-09] MEDS: Lactated Ringers 1,000 ML 100 ML IV (08:11)
--- NOTE | 2025-07-09 09:01 | PCM.PN.HOSP ---
Reason for Visit Chief Complaint: Syncope, left upper quadrant abdominal pain black tarry stool. Subjective Subjective Had been feeling dizzy and lightheaded for several days prior to presentation. Denies hematochezia/melena. Objective Data Objective Data Vital Signs: Vital Signs Temp Pulse Resp BP Pulse Ox O2 Del Method 36.2 C L 84 16 92/63 97 Room Air 07/09/25 03:30 07/09/25 03:30 07/09/25 03:30 07/09/25 03:30 07/09/25 03:30 07/09/25 03:30 Oxygen Delivery Method Room Air Weight: 67.4 kg Body Mass Index (BMI) 24.0 Intake & Output: Intake and Output for Last 24 Hours 07/07/25 07/08/25 07/09/25 23:59 23:59 23:59 Intake Total 1503.33 / 1503.33 988.33 / 988.33 Output Total 500 / 500 Balance 1503.33 / 1003.33 488.33 / 488.33 Lab / Micro Data 07/09/25 03:28 07/09/25 03:28 Labs: Laboratory Results - last 24 hr 07/08/25 17:14: WBC 7.1, RBC 3.20 L, Hgb 6.6 L, Hct 22.4 L, MCV 70.0 L, MCH 20.6 L, MCHC 29.5 L, RDW Std Deviation 46.5 H, RDW Coeff of Adelia 19.4 H, Plt Count 357, MPV 9.2, Immature Gran % (Auto) 0.400, Neut % (Auto) 56.5, Lymph % (Auto) 33.6, Nolan % (Auto) 7.6, Eos % (Auto) 1.6, Baso % (Auto) 0.3, Absolute Neuts (auto) 4.0, Absolute Lymphs (auto) 2.38, Nucleated RBC % 0.7, PT 13.1, INR 1.0, Sodium 135, Potassium 3.8, Chloride 102, Carbon Dioxide 21.0, Anion Gap 12, BUN 19, Creatinine 1.08, Estim Creat Clear Calc 48.62 L, Est GFR (MDRD) Non-Af 57 L, BUN/Creatinine Ratio 17.5, Glucose 118 H, Calcium 9.8, Total Bilirubin 0.24, AST 17, ALT 10, Alkaline Phosphatase 66, Troponin T High Sens 13, Total Protein 6.5, Albumin 3.9, Globulin 2.6, Albumin/Globulin Ratio 1.5, Lipase 35, Ethyl Alcohol < 10.1 07/08/25 18:15: Blood Type A POSITIVE, Antibody Screen NEGATIVE, Crossmatch See Detail 07/08/25 19:01: Magnesium 1.8, Troponin T Hi Sens 2 Hr 11 07/08/25 22:00: Urine Color Yellow, Urine Clarity Clear, Urine pH 6.5, Ur Specific [place] 1.010, Urine Protein 15 H, Urine Glucose (UA) Normal, Urine Ketones 5 H, Urine Occult Blood 10 H, Urine Nitrite Negative, Urine Bilirubin Negative, Urine Urobilinogen Normal, Ur Leukocyte Esterase Negative, Urine RBC 0 SEEN, Urine WBC 5-10 SEEN, Ur Squamous Epith Cells 10-25 SEEN, Urine Bacteria 1+, Urine Mucus 0 SEEN 07/08/25 22:53: Hgb 7.8 L, Hct 25.3 L, Troponin T Hi Sens 4Hr 11 07/09/25 03:28: WBC 8.1, RBC 3.26 L, Hgb 7.5 L, Hct 24.4 L, MCV 74.8 L D, MCH 23.0 L, MCHC 30.7 L, RDW Std Deviation 58.4 H, RDW Coeff of Adelia 23.1 H, Plt Count 311, MPV 9.7, Immature Gran % (Auto) 0.500, Neut % (Auto) 66.3, Lymph % (Auto) 24.6, Nolan % (Auto) 7.3, Eos % (Auto) 0.9, Baso % (Auto) 0.4, Absolute Neuts (auto) 5.4, Absolute Lymphs (auto) 1.98, Nucleated RBC % 0.5, Anisocytosis 2+, PT 14.3, INR 1.1, APTT 26.7, Sodium 132 L, Potassium 4.1, Chloride 103, Carbon Dioxide 20.2 L, Anion Gap 9, BUN 15, Creatinine 0.98, Estim Creat Clear Calc 53.58, Est GFR (MDRD) Non-Af 64, BUN/Creatinine Ratio 15.2, Glucose 115 H, Calcium 8.9 Micro: Microbiology 07/08/25 17:45 Stool Stool Occult Blood (YULISSA) - Final Occult Blood Positive Radiography Diagnostic Testing: Radiology Impression Chest X-Ray 07/08/25 16:41 IMPRESSION: No Acute Findings. Reading Location: [facility] Abdomen/Pelvis CT 07/08/25 18:42 IMPRESSION: No acute intra-abdominal abnormality. Hepatic steatosis. Reading Location: [facility] Physical Exam Const alert and no apparent distress HEENT head/scalp atraumatic and moist oral mucous membranes Resp normal respiratory effort, no retractions, no use of accessory muscles and clear to auscultation bilaterally Cardio regular rate, regular rhythm, S1 normal heart sound and S2 normal heart sound GI normal to inspection, nondistended, normoactive bowel sounds, soft to palpation, non-tender and non-distended Neuro Sensorium / Orientation: awake and alert Assessment & Plan Assessment/Plan (1) GI bleed: (2) Anemia: (3) Syncope: PLAN: Plan Syncope probably secondary to severe anemia She passed out and fell down but recovered quickly. IV fluid resuscitation. Most recent BP 98/82, heart rate 83/min no hypoxia. Acute severe anemia on chronic iron Significant most likely due to upper GI bleed: H&H 6.6/22.4%. Platelet count 357K. MCV, MCH and MCHC all low with RDW 19.4 high suggestive of chronic iron deficiency anemia probably due to GI bleed. History of gastric bypass surgery. GI consulted. IV PPI every 12 hourly. Clear liquid diet Endoscopy for 07/10. Heme positive stools. Left upper quadrant abdominal pain: CT abdomen/pelvis showed no acute finding but chronic hepatic steatosis and postsurgical changes of Dillon-en-Y gastric bypass. She was also last admitted in December 2024 for abdominal pain due to GI bleed, similar condition Chronic alcohol use disorder: Patient drinks alcohol about 2-3 tall boys. Monitor CIWA for first 24 hours Chronic conditions: Anxiety, depression/PTSD: Home medications continued Hypertension, currently blood pressure in the low/mild hypotension: Hold antihypertensive medication Chronic HFpEF: Echo in 192 shows EF 5%, stage I diastolic dysfunction. Mild TR, trivial eccentric MR. Mild AI. DVT prophylaxis: Pharmacological prophylaxis contraindicated. Bilateral SCDs. Living will/advanced directive/end of life care: Patient does not have living will or advanced directive. She does not have power of patent attorney for health. Her grandson is next of kin after discussion of benefits/risks procedures involved with full code, DNR CC arrest and DNR CC, the patient opted for full code. Patient does want artificial life support including intubation, tube feed, ventilator and/chest compression, central venous catheter, vasopressor and DC shock if needed Total time spent in [id number] encounter in discussion of advanced directive 17 minutes. Charges/Coding Visit Charges Inpatient E&M: 34256 Subs Hosp L2
[2025-07-09] MEDS: Pantoprazole Sodium 40 MG in 0.9% Normal Saline (100mL MB+) 100 ML 300 MG IV ×2 (10:10→21:03)
[2025-07-09] MEDS: Cholecalciferol (VIT D3) 25 MCG TABLET (1,000 UNITS) PO (10:10)
--- NOTE | 2025-07-09 10:10 | CASEMGMT ---
CHINEDU ARZOLA Face to Face with patient for initial transition planning/care coordination assessment. RN CM introduced self and role at [facility]. Patient lying in bed, alert and oriented. Patient willing to participate in assessment and is able to answer all questions appropriately. Care providers, pharmacy, and demographics verified. Strata: 3 PCP: Adriana Specialists: Wilson, company laundry worker; Lindsay, health and physical education professor; Friend, GI Preferred Pharmacy: [facility], [facility] Retail at discharge. Insurance: [facility] Dual, [employer] Prescription Benefit: yes Living Will/HPOA: none LNOK: Friend Living Arrangements: Patient lives with roommate and 13yo grandson in a 2 story home with bed and bath on first floor, 3 steps and railing to enter the home. Patient states she is independent at home. Transportation: self, friend DME/HHC: Patient has shower chair, grab bars, cane, walker at home. No previous HHC or SNF. Patient wishes to discharge home, denies need for home health at this time. Patient states she has no further needs or concerns at this time. CM to follow for discharge planning needs that may arise. Disposition Plan: Patient to discharge home with family support and follow-up plans in place. Sunita CHOPRA, RN, CM
--- NOTE | 2025-07-09 17:27 | CON.PCM.GI_ITS ---
HPI Consult Data Date of Consult: 07/09/25 HPI Narrative Reason for Consultation: GI bleed and anemia HPI Narrative: The patient is a 65-year-old female with a history of chronic iron-deficiency anemia (on weekly iron infusions), recurrent GI bleeding secondary to anastomotic ulcers from a prior gastrojejunostomy (25 years ago), and chronic alcohol use. She was brought to the ED by EMS after a syncopal episode. The patient reports feeling dizzy and lightheaded for the last 3 days. While attempting to walk to her room, her dizziness worsened, leading her to fall on the carpet and pass out near the bathroom. Her grandson, who is her caregiver, came to assist her to the emergency room.. She also complains of left upper quadrant (LUQ) abdominal pain for 2-3 weeks, which worsened over the last 2 days. The pain is described as sharp, stabbing, 10/10 in intensity, and radiates to her left shoulder. She reports a loss of appetite and decreased oral intake. She experienced vomiting once yesterday but did not see the contents. She notes passing 1-2 times black tarry stools in the last few days. She denies fever or true vertigo. * EMS Vitals:?BP 96/60, 88/60; RR 25/min; HR 90/min. * ED Vitals (initial):?BP 96/61; HR 88/min. * ED Vitals (after resuscitation):?BP 123/76; HR 88/min (Note: HR value after resuscitation appears inconsistent in provided text, using 88 for consistency with reported stabilization). Physical Exam: Patient recovered from syncopal episode, lying on the floor in the hallway near the bathroom upon initial presentation description. No further physical exam details provided in the prompt. Labs & Diagnostics: * Hemoglobin (Hgb): 6.6 * Hematocrit (Hct): 22.4%] [facility] Medical History Abdominal pain Iron deficiency anemia due to chronic blood loss Depression Anxiety Smoker Migraines TIA (transient ischemic attack) Chronic kidney disease (CKD), stage III (moderate) Vitamin D deficiency Hyperlipidemia GERD (gastroesophageal reflux disease) PTSD (post-traumatic stress disorder) Tobacco use ETOH abuse Iron (Fe) deficiency anemia History of GI bleed Chest pain Iron deficiency Insomnia Anxiety and depression Obesity (BMI 30-39.9) TMJ (temporomandibular joint syndrome) Chronic pain Hypertension ADHD (attention deficit hyperactivity disorder) Postsurgical malabsorption, not elsewhere classified B12 deficiency Anemia PUD (peptic ulcer disease) Home Medications ?Medication ?Instructions ?Recorded ?Last Taken ?Type rollator walker with seat #1 ea 10/09/20 Unknown Rx syringe with needle 1 mL 25 gauge #100 ea 03/05/21 Unk nown History x 1 valacyclovir 500 mg tablet 500 mg PO DAILY Herpes Flar e #90 10/28/21 01/23/25 Rx (Valtrex) tabs cyclobenzaprine 10 mg tablet 10 mg PO TID 07/24/2402/23 History albuterol sulfate 90 mcg/actuation 2 puff inhalation Q 4H PRN SOB, 01/25/25 01/23/25 History aerosol inhaler wheezing ferrous gluconate 324 mg (38 mg 324 mg PO DAILY Unknown History iron) tablet escitalopram oxalate 10 mg tablet 10 mg PO QDAY #30 ta bs 05/31/25 Unknown Rx dicyclomine 10 mg capsule 10 mg PO BID #30 caps 07/08/25 Rx cholecalciferol (vitamin D3) 25 25 mcg PO DAILY Unknown History mcg (1,000 unit) tablet dextroamphetamine-amphetamine ER 5 1 cap PO DAILY 02/23 Unknown History mg 24hr capsule,extend release omeprazole 20 mg tablet,delayed 20 mg PO DAILY PRN LUISA D 07/08/25 07/08/25 History release Allergy/AdvReac Type Severity Reaction Status Date / Time buprenorphine (From [facility]) Allergy Rash Verified 07/08/25 16:35 NSAIDS (Non-Steroidal AdvReac Nausea Verified 07/08/25 16:35 Anti-Inflamma Family History Father Myocardial infarction Alcohol abuse Heart disease CAD (coronary artery disease) Mother CVA (cerebral vascular accident) Hypertension Thrombosis Alcohol abuse Sister Lupus Surgical History History of cataract surgery Status post gastric bypass for obesity Hx of bariatric surgery S/P H/O gastric bypass (~1999) Social History household members: other details: grandson housing: house current occupational status: retired and disabled history of recent travel: No sexually active: No Smoking Status: Former smoker Smokeless tobacco user: other alcohol intake: current alcohol intake frequency: 3 or more drinks per day details: Patient reports history of at 2-tall boys daily at least. substance use type: marijuana what type of physical activity do you participate in: none and walking seatbelt use: always do you feel safe at home: Yes additional social history: single ROS Constitutional Constitutional: Denies fatigue, fever(s), poor appetite, weight gain or weight loss Gastrointestinal Gastrointestinal: Denies belching, bloating, change in bowel habits, change in stool character, chewing difficulty, coffee ground emesis, constipation, cramping, diarrhea, dyspepsia, dysphagia, early satiety, excessive flatus, fecal incontinence, heartburn, hematemesis, hematochezia, hemorrhoids, loose stools, melena, nausea, odynophagia, rectal bleeding, tenesmus, vomiting or weight changes Physical Exam Const alert, oriented x3, no apparent distress and healthy appearing General Appearance: cooperative GI normal to inspection, nondistended, normoactive bowel sounds, soft to palpation, non-tender and non-distended Percussion: normal to percussion Rectal Exam: deferred Lab / Micro Data 07/09/25 03:28 07/09/25 03:28 Labs: Laboratory Results - last 24 hr 07/08/25 17:14: PT 13.1, INR 1.0, Sodium 135, Potassium 3.8, Chloride 102, Carbon Dioxide 21.0, Anion Gap 12, BUN 19, Creatinine 1.08, Estim Creat Clear Calc 48.62 L, Est GFR (MDRD) Non-Af 57 L, BUN/Creatinine Ratio 17.5, Glucose 118 H, Calcium 9.8, Total Bilirubin 0.24, AST 17, ALT 10, Alkaline Phosphatase 66, Troponin T High Sens 13, Total Protein 6.5, Albumin 3.9, Globulin 2.6, Albumin/Globulin Ratio 1.5, Lipase 35, Ethyl Alcohol < 10.1 07/08/25 18:15: Blood Type A POSITIVE, Antibody Screen NEGATIVE, Crossmatch See Detail 07/08/25 19:01: Magnesium 1.8, Troponin T Hi Sens 2 Hr 11 07/08/25 22:00: Urine Color Yellow, Urine Clarity Clear, Urine pH 6.5, Ur Specific [place] 1.010, Urine Protein 15 H, Urine Glucose (UA) Normal, Urine Ketones 5 H, Urine Occult Blood 10 H, Urine Nitrite Negative, Urine Bilirubin Negative, Urine Urobilinogen Normal, Ur Leukocyte Esterase Negative, Urine RBC 0 SEEN, Urine WBC 5-10 SEEN, Ur Squamous Epith Cells 10-25 SEEN, Urine Bacteria 1+, Urine Mucus 0 SEEN 07/08/25 22:53: Hgb 7.8 L, Hct 25.3 L, Troponin T Hi Sens 4Hr 11 07/09/25 03:28: WBC 8.1, RBC 3.26 L, Hgb 7.5 L, Hct 24.4 L, MCV 74.8 L D, MCH 23.0 L, MCHC 30.7 L, RDW Std Deviation 58.4 H, RDW Coeff of Adelia 23.1 H, Plt Count 311, MPV 9.7, Immature Gran % (Auto) 0.500, Neut % (Auto) 66.3, Lymph % (Auto) 24.6, [place] % (Auto) 7.3, Eos % (Auto) 0.9, Baso % (Auto) 0.4, Absolute Neuts (auto) 5.4, Absolute Lymphs (auto) 1.98, Nucleated RBC % 0.5, Anisocytosis 2+, PT 14.3, INR 1.1, APTT 26.7, Sodium 132 L, Potassium 4.1, Chloride 103, C arbon Dioxide 20.2 L, Anion Gap 9, BUN 15, Creatinine 0.98, Estim Creat Clear Calc 53.58, Est GFR (MDRD) Non-Af 64, BUN/Creatinine Ratio 15.2, Glucose 115 H, Calcium 8.9 Micro: Microbiology 07/08/25 17:45 Stool Stool Occult Blood (YULISSA) - Final Occult Blood Positive Imaging Radiology Impression Chest X-Ray 07/08/25 16:41 IMPRESSION: No Acute Findings. Reading Location: [facility] Abdomen/Pelvis CT 07/08/25 18:42 IMPRESSION: No acute intra-abdominal abnormality. Hepatic steatosis. Reading Location: [facility] Assessment & Plan Assessment/Plan (1) GI bleed: (2) Anemia: (3) Syncope: (4) LFTs abnormal: PLAN: Assessment The patient presents with acute blood loss anemia and hemodynamic instability (hypotension) likely secondary to a significant upper gastrointestinal bleed (UGIB). Diagnoses: * Syncopal episode:?Likely due to hypovolemia and orthostatic hypotension secondary to severe anemia/acute blood loss. * Severe Iron-Deficiency Anemia/Acute GI Bleed:?Evidenced by Hgb of 6.6, black tarry stools (melena), recent vomiting (content unknown), LUQ pain, and history of recurrent GI bleeds from anastomotic ulcers. The pain radiating to the left shoulder could potentially indicate diaphragmatic irritation (Kehr's sign), possibly due to splenic involvement (less likely given Hx) or irritation from the GI process. * Left Upper Quadrant Abdominal Pain:?Etiology likely related to known anastomotic ulceration/perforation given quality, severity, and radiation in the context of GI bleed signs. * History of Gastric Bypass and Chronic Alcohol Use:?Contributing risk factors for ulcer development and GI distress. P - Plan Treatment/Management: * Resuscitation:?Patient volume resuscitated in ED with improvement in BP (from 96/61 to 123/76). * Transfusion:?Ordered 1 unit of packed red blood cells (PRBC). * Consults:?Gastroenterology (GI) consult ordered to manage acute GI bleeding, likely requiring urgent esophagogastroduodenoscopy (EGD). * Monitoring:?Continuous hemodynamic monitoring. * Further Workup:?Stool guaiac test (already suggested by reported melena), serial Hgb/Hct checks, type and crossmatch for further transfusion needs. * Medications:?Initiate proton pump inhibitor (PPI) therapy for ulcer management. Charges/Coding Visit Charges Inpatient E&M: 93321 Init Hosp L3
[2025-07-09] MEDS: 0.9% Saline Lock 10 ML Syringe IV (20:57)
[2025-07-10] VITALS (13 sets, daily range): BP systolic 103–132; BP diastolic 70–82; PULSE 72–95; RESP 12–17; TEMP 36.3–37.1; O2SAT 98–100; BMI 24.3
[2025-07-10 05:21] LABS: Hematocrit 23.5 % (37-47); Hemoglobin 7.3 g/dL (12.0-15.0); Immature Granulocytes Count 0.030 X10^3/uL (0.0-0.0); Mean Corp Hgb Conc 31.1 g/dL (32-36); Mean Corpuscular Volume 74.6 fL (81-99); Mean Platelet Vol. 9.4 fl (6.2-12.0); NRBC Flagged by Analyzer 0 % (0-5); POSITIVE MORPHOLOGY YES; Platelet Count 294 K/mm3 (150-450); RBC Distribution Width CV 24.3 % (11.6-14.6); RBC Distribution Width SD 58.9 fl (35.1-43.9); Red Blood Count 3.15 M/mm3 (4.2-5.4); White Blood Count 5.4 K/mm3 (4.4-11.0)
[2025-07-10 05:46] LABS: Anion Gap 10 (5-15); BUN 8 mg/dL (4-19); BUN/Creat Ratio 9.5 RATIO (10-20); Calcium,Total 9.0 mg/dL (7.6-11.0); Carbon Dioxide 22.9 mmol/L (21.0-32.0); Chloride 103 mmol/L (98-108); Estimated Creatinine Clearance 64.03 ml/min (50-250); Glucose 105 mg/dL (70-99); Potassium 3.9 mmol/L (3.3-5.1)
[2025-07-10 05:48] LABS: Differential Indicated SCAN CRITERIA MET
[2025-07-10 06:03] LABS: Anisocytosis 2+
[2025-07-10 06:04] LABS: Differential Comment SCANNED
[2025-07-10] MEDS: Cholecalciferol (VIT D3) 25 MCG TABLET (1,000 UNITS) PO (08:39)
[2025-07-10] MEDS: Pantoprazole Sodium 40 MG in 0.9% Normal Saline (100mL MB+) 100 ML 300 MG IV ×2 (08:39→21:57)
[2025-07-10] MEDS: 0.9% Saline Lock 10 ML Syringe IV ×2 (08:40→21:58)
--- NOTE | 2025-07-10 08:56 | PN.HOSP_ITS ---
Reason for Visit Chief Complaint: Syncope, left upper quadrant abdominal pain black tarry stool. Subjective Subjective Still with abdominal discomfort Objective Data Objective Data Vital Signs: Vital Signs Temp Pulse Resp BP Pulse Ox O2 Del Method 37.1 C 83 16 123/79 H 100 Room Air 07/10/25 08:35 07/10/25 08:35 07/10/25 08:35 07/10/25 08:35 07/10/25 08:35 07/10/25 08:35 Oxygen Delivery Method Room Air Weight: 68.2 kg Body Mass Index (BMI) 24.3 Intake & Output: Intake and Output for Last 24 Hours 07/08/25 07/09/25 07/10/25 23:59 23:59 23:59 Intake Total 1503.33 / 1503.33 2188.33 / 2188.33 Output Total 500 / 500 Balance 1503.33 / 1003.33 1688.33 / 1688.33 Lab / Micro Data 07/10/25 04:55 07/10/25 04:55 Labs: Laboratory Results - last 24 hr 07/10/25 04:55: WBC 5.4, RBC 3.15 L, Hgb 7.3 L, Hct 23.5 L, MCV 74.6 L, MCH 23.2 L, MCHC 31.1 L, RDW Std Deviation 58.9 H, RDW Coeff of Adelia 24.3 H, Plt Count 294, MPV 9.4, Immature Gran % (Auto) 0.600, Neut % (Auto) 56.3, Lymph % (Auto) 31.3, [place] % (Auto) 8.8, Eos % (Auto) 2.6, Baso % (Auto) 0.4, Absolute Neuts (auto) 3.1, Absolute Lymphs (auto) 1.70, Nucleated RBC % 0, Differential Comment SCANNED, Anisocytosis 2+, Sodium 135, Potassium 3.9, Chloride 103, Carbon Dioxide 22.9, Anion Gap 10, BUN 8, Creatinine 0.82, Estim Creat Clear Calc 64.03, Est GFR (MDRD) Non-Af 79, BUN/Creatinine Ratio 9.5 L, Glucose 105 H, Calcium 9.0 Micro: Microbiology 07/08/25 17:45 Stool Stool Occult Blood (YULISSA) - Final Occult Blood Positive Physical Exam Const alert and no apparent distress HEENT head/scalp atraumatic and moist oral mucous membranes Resp normal respiratory effort, no retractions and no use of accessory muscles Cardio regular rate, regular rhythm, S1 normal heart sound and S2 normal heart sound Cardio Narrative: 2 out of 6 stock ejection murmur at the right upper sternal border GI normal to inspection, nondistended, normoactive bowel sounds, soft to palpation, non-tender and non-distended Extremity normal to inspection and full ROM Assessment & Plan Assessment/Plan (1) GI bleed: (2) Anemia: PLAN: Plan Syncope * probably secondary to severe anemia * She passed out and fell down but recovered quickly. IV fluid resuscitation. Most recent BP 98/82, heart rate 83/min no hypoxia. Acute severe anemia on chronic iron * Significant most likely due to upper GI bleed: H&H 6.6/22.4%. Platelet count 357K. MCV, MCH and MCHC all low with RDW 19.4 high suggestive of chronic iron deficiency anemia probably due to GI bleed. History of gastric bypass surgery. GI consulted. IV PPI every 12 hourly. Clear liquid diet * Endoscopy for 07/10. * Heme positive stools. Left upper quadrant abdominal pain: * CT abdomen/pelvis showed no acute finding but chronic hepatic steatosis and postsurgical changes of Dillon-en-Y gastric bypass. She was also last admitted in December 2024 for abdominal pain due to GI bleed, similar condition Chronic alcohol use disorder: Patient drinks alcohol about 2-3 tall boys. Chronic conditions: * Anxiety, depression/PTSD: Home medications continued * Hypertension, currently blood pressure in the low/mild hypotension: Hold antihypertensive medication * Chronic HFpEF: Echo in 1925 shows EF 5%, stage I diastolic dysfunction. Mild TR, trivial eccentric MR. Mild AI. DVT prophylaxis: Pharmacological prophylaxis contraindicated. Bilateral SCDs. Charges/Coding Visit Charges Inpatient E&M: 53684 Subs Hosp L2
--- NOTE | 2025-07-10 15:00 | EGD_PTH ---
PATIENT: NORY GASTON LOC: [facility] U#:[id number] AGE/SX: 65/F ROOM: [facility] RE07/08/[address]: Dr. Randall Dubon DO : 1960 BED: 1 DIS: 07/11/2025 SPEC #: [id number] RECD: 07/11/25 08:02 STATUS: TOBI REQ #: [id number] GERARD: 07/10/25 15:[address]: Sami Hansen DEPT: SURGICAL PATHOLOGY RECD BY: Jose Beckford ENTERED: 07/11/25 10:25 SP TYPE: EGD BIOPSY OT DR: MD Dr. Randall March DO Dr. Prakash Chand, MD Heather Evans CORPORATE HEALTH CONSULTANT-C TALIA DoeC MANUELA Craven Tissues: A - COLON BIOPSY Procedures: Surgery Specimen Level IV HEADER OPERATION: EGD with biopsy PRE-OP DIAGNOSIS: GI bleed, anemia, anastomotic ulcer TISSUE SUBMITTED: A- Anastomotic ulcer biopsy MICROSCOPIC DIAGNOSIS A. Anastomosis, site unspecified, biopsy: - Fragments of small intestinal mucosa consistent with duodenum demonstrating Nidia gland hyperplasia, gastric mucin cell metaplasia, active chronic inflammation with paneth cell metaplasia, and focal erosion/ulceration. - No malignant change is seen in these sections. MICROSCOPIC DESCRIPTION Slides are reviewed. GROSS DESCRIPTION A. Received in fixative is one container labeled with the patient's name and designated Anastomotic ulcer biopsy. The specimen consists of multiple irregular fragments of mina tissue that in aggregate measure 1.1 x 0.5 x 0.1 cm. The specimen is totally submitted in one cassette. IA 07/11/2025 CPT:62114
[2025-07-10] MEDS: Lactated Ringers 1,000 ML 15 ML IV (16:15)
--- NOTE | 2025-07-10 17:14 | PRE.ANES_ITS ---
ASA Classification* ASA Classification ASA Classification: 3 and E Assessment & Plan Anesthesia* Anesthesia Assessment Anesthesia Assessment: Discussed sedation and/or anesthesia options, risks, benefits, and alternatives with patient/parents/legal guardian/POA. Questions invited. The patient/parents/legal guardian/POA seems to understand and agrees to proceed with anesthesia plan. Reviewed the physical assessment, medical history, allergy history and patient home medications list prior to surgery/procedure/anesthetic and documented any changes. Performed airway and anesthesia risk assessments. Anesthesia Type Anesthesia Type: MAC History Source History Obtained from:: Patient and Chart Anesthesia Focused Assessment* Temperature: 98.4 F Pulse Rate: 72 Blood Pressure: 129/74 Respiratory Rate: 16 Pulse Ox: 100 Oxygen Delivery Method: Room Air Airway Assessment Mouth opens: >3 cm Mallampati Score: II Teeth Condition: Dentures (Edentulous) Neck Range of motion (ROM): Full ROM Labs Anesthesia Preop lab: CBC WBC, (4.4-11.0) 5.4 K/mm3 Today, 04:55 RBC, (4.2-5.4) 3.15 M/mm3 L Today, 04:55 Hgb, (12.0-15.0) 7.3 g/dL L Today, 04:55 Hct, (37-47) 23.5 % L Today, 04:55 Plt Count, (150-450) 294 K/mm3 Today, 04:55 CHEMISTRY Potassium, (3.3-5.1) 3.9 mmol/L Today, 04:55 Sodium, (133-145) 135 mmol/L Today, 04:55 Magnesium, (1.5-2.2) 1.8 mg/dL 07/08/25, 19:01 Phosphorus, (2.5-4.9) 3.2 mg/dL 02/16/24, 08:20 BUN, (4-19) 8 mg/dL Today, 04:55 Creatinine, (0.70-1.20) 0.82 mg/dL Today, 04:55 Glucose, (70-99) 105 mg/dL H Today, 04:55 POC Glucose, (74-106) 126 mg/dL H 04/01/24, 11:04 TSH, (0.300-4.200) 2.830 uIU/mL 01/26/25, 05:41 COAG PT, (11.7-14.9) 14.3 SECONDS 07/09/25, 03:28 Pre-Assessment Diagnosis/Proposed Procedure Planned Operative Procedure(s): EGD Anesthesia History 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 When Was Last Pacemaker Check QUESTION #4 FULL TEXT: You/Your Family Experience fever (hyperthermia) with Anesthesia Last Oral Intake Last Oral intake: Last Oral Intake NPO since 01:00 07/10/25 07:00 Meds taken in AM with sips of No 07/10/25 06:25 water? Meds patient instructed to take am of surgery PONV PONV - business ethics professor: PONV - business ethics professor Female HX of Motion Sickness HX of N/V After Surgery Non-Smoker Duration of Surgery greater than 60 minutes Number of Risk Factors PONV Score Height & Weight Height & Weight: Anesthesia: Height & Weight Height 5 ft 6 in 07/10/25 06:25 Weight: 68.2 kg 07/10/25 07:00 Body Mass Index (BMI) 24.3 07/10/25 06:25 Respiratory Assessment Respiratory Assessment - business ethics professor: Respiratory Tract Infection Hx - business ethics professor Hx Respiratory Tract Infection No 07/10/25 05:27 STOP Sleep Apnea STOP Sleep Apnea - business ethics professor: STOP Sleep Apnea - business ethics professor Hx Hypertension Yes 07/09/25 13:22 Hx Sleep Apnea No 07/08/25 20:51 CPAP No 07/08/25 20:51 BIPAP No 07/08/25 20:51 Do you snore loudly (louder No 07/08/25 20:51 than talking or can be heard Do you often feel tired/ No 07/08/25 20:51 fatigued/ sleepy during daytime? Has anyone observed you stop No 07/08/25 20:51 breathing during sleep? STOP Results Negative 07/08/25 20:51 QUESTION #5 FULL TEXT : Do you snore loudly (louder than talking or can be heard through closed doors)? 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 Specify any problems Hx of Preganancy in last 3 No 07/08/25 20:51 Months Nurse Filling Out Transfusion RWALKER 07/08/25 20:51 & Questions: Date: 07/08/25 07/08/25 20:51 Time: 21:04 07/08/25 20:51 Patient unable to answer at this time (ie. confused, unrespo /Reproduction History /Reproductive History - business ethics professor: /Reproductive Hx- business ethics professor Hx Now No 07/10/25 05:27 Gestational Age (in weeks): EDC: Hx Hx Para Hx Section SAB No 07/10/25 05:27 Does the father of the baby or his family experience fever w Father of the baby Malignant Hypertension history comment Active Medications Active Medications: Current Medications Generic Name Dose Route Start Last Admin Trade Name Freq PRN Reason Stop Dose Admin Acetaminophen 1,000 mg 07/08/25 20:50 07/09/25 01:22 Acetaminophen 500 Mg Tablet PO 1,000 mg Q8H PRN PRN Administration pain 1-10 Albuterol Sulfate 2.5 mg 07/09/25 00:40 Albuterol 2.5 Mg/3 Ml Vial.Neb. INHALATION Q4H PRN PRN SOB, wheezing Cholecalciferol 25 mcg 07/09/25 10:00 07/10/25 08:39 Cholecalciferol (Vit D3) 25 Mcg Tablet (1,000 Units) PO 25 mcg DAILY MU Administration Cyclobenzaprine HCl 5 mg 07/09/25 00:40 Cyclobenzaprine Hcl 5 Mg Tablet PO TID PRN PRN MUSCLE SPASM Dicyclomine HCl 10 mg 07/09/25 10:00 07/10/25 08:39 Dicyclomine 10 Mg Capsule PO 10 mg BID MU Administration Escitalopram Oxalate 10 mg 07/09/25 10:00 07/10/25 08:39 Escitalopram Oxalate 10 Mg Tablet PO 10 mg DAILY MU Administration Pantoprazole Sodium 40 mg/ 100 mls @ 300 mls/hr 07/08/25 20:50 07/10/25 08:59 Sodium Chloride IV Infused Q12 MU Infusion Sodium Chloride 500 mls @ 15 mls/hr 07/08/25 20:56 IV PRN PRN Blood Transfusion Sodium Chloride 250 mls @ 15 mls/hr 07/08/25 20:56 IV .[id number] PRN Saline Flush Sodium Chloride 250 mls @ 15 mls/hr 07/08/25 20:56 IV .[id number] PRN Additional IVPB Infusion Lactated Ringer's 1,000 mls @ 15 mls/hr 07/10/25 16:15 07/10/25 16:15 IV 15 mls/hr .Q48H MU Administration Lorazepam 2 mg 07/08/25 20:50 Lorazepam 2 Mg/Ml Syringe IV UD PRN CIWA score >/=15. Protocol Lorazepam 2 mg 07/08/25 20:50 Lorazepam 2 Mg/Ml Syringe IV Q2H PRN PRN CIWA score > 8 but <15 Protocol Lorazepam 2 mg 07/08/25 20:50 Lorazepam 1 Mg Tablet PO UD PRN CIWA score >/=15. Protocol Lorazepam 2 mg 07/08/25 20:50 Lorazepam 1 Mg Tablet PO Q2H PRN PRN CIWA score > 8 but <15 Protocol Nitroglycerin 0.4 mg 07/08/25 20:50 Nitroglycerin (Inpatient Use) 0.4 Mg Tab.Subl SL Q5M PRN CARDIAC/CHEST PAIN Oxycodone HCl 2.5 - 5 mg 07/08/25 20:50 07/10/25 08:39 Oxycodone 5 Mg Tablet PO 5 mg Q4H PRN PRN Administration Pain Score 4-10 Senna/Docusate Sodium 2 tablet 07/08/25 20:50 Senna/Docusate Sodium 1 Tablet PO BID PRN PRN Constipation Sodium Chloride 10 - 40 ml 07/08/25 20:56 07/10/25 08:40 0.9% Saline Lock 10 Ml Syringe IV 10 ml UD PRN Administration SALINE FLUSH PFSH Medical History Abdominal pain Iron deficiency anemia due to chronic blood loss Depression Anxiety Smoker Migraines TIA (transient ischemic attack) Chronic kidney disease (CKD), stage III (moderate) Vitamin D deficiency Hyperlipidemia GERD (gastroesophageal reflux disease) PTSD (post-traumatic stress disorder) Tobacco use ETOH abuse Iron (Fe) deficiency anemia History of GI bleed Chest pain Iron deficiency Insomnia Anxiety and depression Obesity (BMI 30-39.9) TMJ (temporomandibular joint syndrome) Chronic pain Hypertension ADHD (attention deficit hyperactivity disorder) Postsurgical malabsorption, not elsewhere classified B12 deficiency Anemia PUD (peptic ulcer disease) Home Medications ?Medication ?Instructions ?Recorded ?Last Taken ?Type rollator walker with seat #1 ea 10/09/20 Unknown Rx syringe with needle 1 mL 25 gauge #100 ea 03/05/21 Unk nown History x 1 valacyclovir 500 mg tablet 500 mg PO DAILY Herpes Flar e #90 10/28/21 01/23/25 Rx (Valtrex) tabs cyclobenzaprine 10 mg tablet 10 mg PO TID 07/24/2402/23 History albuterol sulfate 90 mcg/actuation 2 puff inhalation Q 4H PRN SOB, 01/25/25 01/23/25 History aerosol inhaler wheezing ferrous gluconate 324 mg (38 mg 324 mg PO DAILY Unknown History iron) tablet escitalopram oxalate 10 mg tablet 10 mg PO QDAY #30 ta bs 05/31/25 Unknown Rx dicyclomine 10 mg capsule 10 mg PO BID #30 caps 07/08/25 Rx cholecalciferol (vitamin D3) 25 25 mcg PO DAILY Unknown History mcg (1,000 unit) tablet dextroamphetamine-amphetamine ER 5 1 cap PO DAILY 02/23 Unknown History mg 24hr capsule,extend release omeprazole 20 mg tablet,delayed 20 mg PO DAILY PRN LUISA D 07/08/25 07/08/25 History release Allergy/AdvReac Type Severity Reaction Status Date / Time buprenorphine (From [place]) Allergy Rash Verified 07/08/25 16:35 NSAIDS (Non-Steroidal AdvReac Nausea Verified 07/08/25 16:35 Anti-Inflamma Family History Father Myocardial infarction Alcohol abuse Heart disease CAD (coronary artery disease) Mother CVA (cerebral vascular accident) Hypertension Thrombosis Alcohol abuse Sister Lupus Surgical History History of cataract surgery Status post gastric bypass for obesity Hx of bariatric surgery S/P H/O gastric bypass (~1999) Social History household members: other details: grandson housing: house current occupational status: retired and disabled history of recent travel: No sexually active: No Smoking Status: Former smoker Smokeless tobacco user: other alcohol intake: current alcohol intake frequency: 3 or more drinks per day details: Patient reports history of at 2-tall boys daily at least. substance use type: marijuana what type of physical activity do you participate in: none and walking seatbelt use: always do you feel safe at home: Yes additional social history: single Review of Systems (Anesthesia) ROS Narrative System reviewed and no additional complaints, except as documented.
[2025-07-10] MEDS: Lactated Ringers 500 ML IV (17:52)
--- NOTE | 2025-07-10 18:04 | OP.PROVAT_ITS ---
07/10/2025 Elyssa [facility] Md Re : Upper GI endoscopy procedure for Morena Patton Dear Adriana This procedure was performed on Thursday, July 10, 2025. My impressions and recommendations are as follows: Impressions : - Normal esophagus. - Normal stomach. - Gastric bypass with a normal-sized pouch and intact staple line. Gastrojejunal anastomosis characterized by ulceration. Biopsied. - Normal examined jejunum. Recommendations : - [facility]. - Advance diet as tolerated. - The patient is not currently taking aspirin or NSAID medications. - Await pathology results. - Repeat upper endoscopy in 3 months for surveillance. -Misoprostol 200 mg p.o. 4 times daily x 3 months - Protonix 40 mg p.o. twice daily - No aspirin, ibuprofen, naproxen, or other non-steroidal anti-inflammatory drugs for 12 weeks. My findings are described in the full procedure note, which is enclosed. If I can be of further assistance, please feel free to contact me at . Sincerely, Sami Hansen, 07/10/2025 6:03:51 PM This report has been signed electronically.
--- NOTE | 2025-07-10 18:04 | OP.EGD_ITS ---
Patient Name: Morena Patton Procedure Date: 07/10/2025 5:48 PM Date of : 1960 Age: 65 Procedure: Upper GI endoscopy Indications: Epigastric abdominal pain Providers: Sami Hansen DO Medicines: Monitored Anesthesia Care Patient Profile: This is a 65 year old female. Refer to note in patient chart for documentation of history and physical. Patient has symptoms of acute epigastric abdominal pain. Complications: No immediate complications. Procedure: Pre-Anesthesia Assessment: - Prior to the procedure, a History and Physical was performed, and patient medications and allergies were reviewed. The patient is competent. The risks and benefits of the procedure and the sedation options and risks were discussed with the patient. All questions were answered and informed consent was obtained. Patient identification and proposed procedure were verified by the physician in the pre-procedure area. Mental Status Examination: alert and oriented. Airway Examination: normal oropharyngeal airway and neck mobility. Respiratory Examination: clear to auscultation. CV Examination: normal. Prophylactic Antibiotics: The patient does not require prophylactic antibiotics. Prior Anticoagulants: The patient has taken no anticoagulant or antiplatelet agents except for NSAID medication. ASA Grade Assessment: II - A patient with mild systemic disease. After reviewing the risks and benefits, the patient was deemed in satisfactory condition to undergo the procedure. The anesthesia plan was to use monitored anesthesia care (MAC). Immediately prior to administration of medications, the patient was re-assessed for adequacy to receive sedatives. The heart rate, respiratory rate, oxygen saturations, blood pressure, adequacy of pulmonary ventilation, and response to care were monitored throughout the procedure. The physical status of the patient was re-assessed after the procedure. After obtaining informed consent, the endoscope was passed under direct vision. Throughout the procedure, the patient's blood pressure, pulse, and oxygen saturations were monitored continuously. The Endoscope was introduced through the mouth, and advanced to the jejunum. Small bowel enteroscopy was deemed necessary. The upper GI endoscopy was accomplished without difficulty. The patient tolerated the procedure well. Scope In: 5:57:24 PM Scope Out: 6:00:13 PM Total Procedure Duration Time 0 hours 2 minutes 49 seconds Findings: The examined esophagus was normal. The entire examined stomach was normal. Evidence of a gastric bypass was found. A gastric pouch with a normal size was found containing ulceration. The staple line appeared intact. The gastrojejunal anastomosis was characterized by ulceration. This was traversed. The vzmda-ls-qgrgsbx limb was characterized by ulceration. The jejunojejunal anastomosis was characterized by healthy appearing mucosa. The qctdwhyy-pw-goyngpb limb was not examined as it could not be found. The excluded stomach was not examined as it could not be found. Biopsies were taken with a cold forceps for histology. Verification of patient identification for the specimen was done. Estimated blood loss was minimal. The examined jejunum was normal. Impression: - Normal esophagus. - Normal stomach. - Gastric bypass with a normal-sized pouch and intact staple line. Gastrojejunal anastomosis characterized by ulceration. Biopsied. - Normal examined jejunum. Recommendation: - [facility]. - Advance diet as tolerated. - The patient is not currently taking aspirin or NSAID medications. - Await pathology results. - Repeat upper endoscopy in 3 months for surveillance. -Misoprostol 200 mg p.o. 4 times daily x 3 months - Protonix 40 mg p.o. twice daily - No aspirin, ibuprofen, naproxen, or other non-steroidal anti-inflammatory drugs for 12 weeks. Procedure Code(s): --- Professional --- 24156, Small intestinal endoscopy, enteroscopy beyond second portion of duodenum, not including ileum; with biopsy, single or multiple CPT copyright 2021 [employer]. All rights reserved. The codes documented in this report are preliminary and upon armature rewinder review may be revised to meet current compliance requirements. Sami Hansen DO 07/10/2025 6:03:51 PM This report has been signed electronically. Number of Addenda: 0 Note Initiated On: 07/10/2025 5:48 PM
--- NOTE | 2025-07-10 18:07 | PCM.POST.ANE ---
Anesthesia: Postop Eval I Current Vital Signs Temperature: 97.4 F Pulse Rate: 93 Blood Pressure: 132/72 Respiratory Rate: 12 Pulse Ox: 98 Oxygen Delivery Method: Room Air Assessment Airway patent: Yes Spontaneous unlabored respirations: Yes Mental status: Asleep nausea: No Vomiting: No Anesthesia Complication: No Fluid Hydration Crystalloid volume administer (ml): 500 Total IV fluid infused: 500 Progress Note Anesthesia document: Postop Eval 1 completed: Yes
--- NOTE | 2025-07-10 18:11 | POSTOPAN2_ITS ---
Anesthesia Postop Eval I Sum Postop Eval Completion status Anesthesia document: Postop Eval 1 completed: Yes Anesthesia Postop Eval I Summary Anesthesia Postop Eval I Summary: Anesthesia Postop Eval I: Assessment Summary Airway patent Yes 07/10/25 18:08 DATABASE SOFTWARE [email or web address] Spontaneous unlabored Yes 07/10/25 18:08 DATABASE SOFTWARE [email or web address] respirations Mental status Asleep 07/10/25 18:08 DATABASE SOFTWARE [email or web address] nausea No 07/10/25 18:08 DATABASE SOFTWARE TECHNICIAN.SHOF Vomiting No 07/10/25 18:08 DATABASE SOFTWARE TECHNICIAN.SHOF Anesthesia Postop Eval I: Fluid Summary Crystalloid volume administer 500 07/10/25 18:08 DATABASE SOFTWARE TECHNICIAN.SHOF (ml) Colloids volume administered ( ml) Blood Product volume administered (ml) Total IV fluid infused 500 07/10/25 18:08 DATABASE SOFTWARE TECHNICIAN.SHOF Anesthesia Postop Eval I: Summary Notes Anesthesia Complication No 07/10/25 18:08 DATABASE SOFTWARE TECHNICIAN.SHOF Anesthesia Complication Comment: Post-operative progress note Anesthesia: Postop Eval II Evaluation Mental status: Awake and Calm Pain Level: 1 nausea: No Vomiting: No Complications Anesthesia Complication: No
--- NOTE | 2025-07-10 18:11 | PCM.POSTANE2 ---
Anesthesia Postop Eval I Sum Postop Eval Completion status Anesthesia document: Postop Eval 1 completed: Yes Anesthesia Postop Eval I Summary Anesthesia Postop Eval I Summary: Anesthesia Postop Eval I: Assessment Summary Airway patent Yes 07/10/25 18:08 HYDRO EXCAVATION OPERATOR.SHOF Spontaneous unlabored Yes 07/10/25 18:08 HYDRO EXCAVATION OPERATOR.SHOF respirations Mental status Asleep 07/10/25 18:08 HYDRO EXCAVATION OPERATOR.SHOF nausea No 07/10/25 18:08 HYDRO EXCAVATION OPERATOR.SHOF Vomiting No 07/10/25 18:08 HYDRO EXCAVATION OPERATOR.SHOF Anesthesia Postop Eval I: Fluid Summary Crystalloid volume administer 500 07/10/25 18:08 HYDRO EXCAVATION OPERATOR.SHOF (ml) Colloids volume administered ( ml) Blood Product volume administered (ml) Total IV fluid infused 500 07/10/25 18:08 HYDRO EXCAVATION OPERATOR.SHOF Anesthesia Postop Eval I: Summary Notes Anesthesia Complication No 07/10/25 18:08 HYDRO EXCAVATION OPERATOR.SHOF Anesthesia Complication Comment: Post-operative progress note Anesthesia: Postop Eval II Evaluation Mental status: Awake and Calm Pain Level: 1 nausea: No Vomiting: No Complications Anesthesia Complication: No
[2025-07-11 03:00] VITALS: PULSE 74
[2025-07-11 03:47] VITALS: BP 133/73; PULSE 84; RESP 17; TEMP 36.9; O2SAT 100
[2025-07-11] MEDS: 0.9% Saline Lock 10 ML Syringe IV ×2 (03:51→10:04)
[2025-07-11 05:56] LABS: Hematocrit 24.7 % (37-47); Hemoglobin 7.5 g/dL (12.0-15.0); Immature Granulocytes Count 0.020 X10^3/uL (0.0-0.0); Mean Corp Hgb Conc 30.4 g/dL (32-36); Mean Corpuscular Volume 76.2 fL (81-99); Mean Platelet Vol. 9.5 fl (6.2-12.0); NRBC Flagged by Analyzer 0 % (0-5); POSITIVE MORPHOLOGY YES; Platelet Count 291 K/mm3 (150-450); RBC Distribution Width CV 25.4 % (11.6-14.6); RBC Distribution Width SD 60.9 fl (35.1-43.9); Red Blood Count 3.24 M/mm3 (4.2-5.4); White Blood Count 4.8 K/mm3 (4.4-11.0)
[2025-07-11 06:00] VITALS: BMI 25.4
[2025-07-11 06:03] LABS: Differential Indicated SCAN CRITERIA MET
[2025-07-11 06:26] LABS: Anion Gap 9 (5-15); BUN 9 mg/dL (4-19); BUN/Creat Ratio 11.8 RATIO (10-20); Calcium,Total 8.6 mg/dL (7.6-11.0); Carbon Dioxide 21.7 mmol/L (21.0-32.0); Chloride 104 mmol/L (98-108); Estimated Creatinine Clearance 65.63 ml/min (50-250); Glucose 97 mg/dL (70-99); Potassium 3.8 mmol/L (3.3-5.1)
[2025-07-11 07:07] LABS: Anisocytosis 2+
--- NOTE | 2025-07-11 08:59 | PN.HOSP_ITS ---
Reason for Visit Chief Complaint: Syncope, left upper quadrant abdominal pain black tarry stool. Subjective Subjective Still having severe abdominal pain intermittently. States that it has been going on for years. Objective Data Objective Data Vital Signs: Vital Signs Temp Pulse Resp BP Pulse Ox O2 Del Method 36.9 C 84 17 133/73 H 100 Room Air 07/11/25 03:47 07/11/25 03:47 07/11/25 03:47 07/11/25 03:47 07/11/25 03:47 07/11/25 03:47 Oxygen Delivery Method Room Air Weight: 71.6 kg Body Mass Index (BMI) 25.4 Intake & Output: Intake and Output for Last 24 Hours 07/09/25 07/10/25 07/11/25 23:59 23:59 23:59 Intake Total 2188.33 / 2188.33 200 / 200 235 / 235 Output Total 500 / 500 450 / 450 Balance 1688.33 / 1688.33 -250 / -250 235 / 235 Lab / Micro Data 07/11/25 05:41 07/11/25 05:41 Labs: Laboratory Results - last 24 hr 07/11/25 05:41: WBC 4.8, RBC 3.24 L, Hgb 7.5 L, Hct 24.7 L, MCV 76.2 L, MCH 23.1 L, MCHC 30.4 L, RDW Std Deviation 60.9 H, RDW Coeff of Adelia 25.4 H, Plt Count 291, MPV 9.5, Immature Gran % (Auto) 0.400, Neut % (Auto) 52.1, Lymph % (Auto) 31.5, Avery % (Auto) 12.7 H, Eos % (Auto) 2.7, Baso % (Auto) 0.6, Absolute Neuts (auto) 2.5, Absolute Lymphs (auto) 1.51, Nucleated RBC % 0, Anisocytosis 2+, Sodium 134, Potassium 3.8, Chloride 104, Carbon Dioxide 21.7, Anion Gap 9, BUN 9, Creatinine 0.79, Estim Creat Clear Calc 65.63, Est GFR (MDRD) Non-Af 82, BUN/Creatinine Ratio 11.8, Glucose 97, Calcium 8.6 Micro: Microbiology 07/08/25 17:45 Stool Stool Occult Blood (YULISSA) - Final Occult Blood Positive Physical Exam Const alert Constitutional Narrative: anxious. sits up on her own several times during encounter. HEENT head/scalp atraumatic and moist oral mucous membranes Assessment & Plan Assessment/Plan (1) GI bleed: (2) Anemia: PLAN: Plan Syncope * probably secondary to severe anemia * She passed out and fell down but recovered quickly. IV fluid resuscitation. Most recent BP 98/82, heart rate 83/min no hypoxia. Acute severe anemia on chronic iron * Significant most likely due to upper GI bleed: H&H 6.6/22.4%. Platelet count 357K. MCV, MCH and MCHC all low with RDW 19.4 high suggestive of chronic iron deficiency anemia probably due to GI bleed. History of gastric bypass surgery. GI consulted. IV PPI every 12 hourly. Clear liquid diet * 2/2 GI bleed. GI bleed * EGD 07/10 showed gastrojejunal anastomosis with ulceration. * GI recommending: misoprostol 200 QID for 3 months, pantoprazole 40 BID, no NSAIDs for 12 months. Abdominal pain * CT negative. EGD results as above. States this has been ongoing for years. Reviewed her OARRS, she had been receiving gabapentin through a Dr. Rosenbaum at [facility] until January 2024 for some time. She cannot recall why she was on gabapentin. * Will discharge with bentyl. Chronic alcohol use disorder: Patient drinks alcohol about 2-3 tall boys. Chronic conditions: * Anxiety, depression/PTSD: Home medications continued * Hypertension, currently blood pressure in the low/mild hypotension: Hold antihypertensive medication * Chronic HFpEF: Echo in 192 shows EF 5%, stage I diastolic dysfunction. Mild TR, trivial eccentric MR. Mild AI. DVT prophylaxis: Pharmacological prophylaxis contraindicated. Bilateral SCDs.
[2025-07-11] MEDS: Cholecalciferol (VIT D3) 25 MCG TABLET (1,000 UNITS) PO (09:57)
[2025-07-11 10:00] VITALS: BP 117/68; PULSE 83; RESP 18; TEMP 36.7; O2SAT 100
[2025-07-11] MEDS: Pantoprazole Sodium 40 MG in 0.9% Normal Saline (100mL MB+) 100 ML 300 MG IV (10:08)
--- NOTE | 2025-07-11 11:41 | DS.PCM_ITS ---
Providers Date of Admission: 07/08/25 Primary Care Physician: Dr. Elyssa Wright MD Consultations 07/08/25 20:50 Consult: Gastroenterology Routine Consulting Provider: [facility] Reason for Consult: GI bleed EMERGENT Consult: No MD Notified: Yes Date Notified: 07/08/25 Time Notified: 20:33 Method of Notification: Text Reason For Visit: UPPER GI BLEED, SYNCOPE, SEVERE ANEMIA Diagnosis Discharge Diagnosis (1) GI bleed: Status: Acute Code(s): K92.2 - Gastrointestinal hemorrhage, unspecified (2) Anemia: Status: Acute Code(s): D64.9 - Anemia, unspecified Plan Syncope * probably secondary to severe anemia * She passed out and fell down but recovered quickly. IV fluid resuscitation. Most recent BP 98/82, heart rate 83/min no hypoxia. Acute severe anemia on chronic iron * Significant most likely due to upper GI bleed: H&H 6.6/22.4%. Platelet count 357K. MCV, MCH and MCHC all low with RDW 19.4 high suggestive of chronic iron deficiency anemia probably due to GI bleed. History of gastric bypass surgery. GI consulted. IV PPI every 12 hourly. Clear liquid diet * 2/2 GI bleed. GI bleed * EGD 07/10 showed gastrojejunal anastomosis with ulceration. * GI recommending: misoprostol 200 QID for 3 months, pantoprazole 40 BID, no NSAIDs for 12 months. Abdominal pain * CT negative. EGD results as above. States this has been ongoing for years. Reviewed her OARRS, she had been receiving gabapentin through a Dr. Rosenbaum at [facility] until January 2024 for some time. She cannot recall why she was on gabapentin. * Will discharge with bentyl. Chronic alcohol use disorder: Patient drinks alcohol about 2-3 tall boys. Chronic conditions: * Anxiety, depression/PTSD: Home medications continued * Hypertension, currently blood pressure in the low/mild hypotension: Hold antihypertensive medication * Chronic HFpEF: Echo in 1924 shows EF 5%, stage I diastolic dysfunction. Mild TR, trivial eccentric MR. Mild AI. DVT prophylaxis: Pharmacological prophylaxis contraindicated. Bilateral SCDs. Medications at Discharge Home Medications rollator walker with seat #1 ea 10/09/20 syringe with needle 1 mL 25 gauge x 1 #100 ea 08/04/21 valacyclovir 500 mg tablet (Valtrex) 500 mg PO DAILY Herpes Flare #90 tabs 10/28/21 cyclobenzaprine 10 mg tablet 10 mg PO TID 07/24/24 albuterol sulfate 90 mcg/actuation aerosol inhaler 2 puff inhalation Q4H PRN SOB, wheezing 01/25/25 ferrous gluconate 324 mg (38 mg iron) tablet 324 mg PO DAILY 03/27/25 escitalopram oxalate 10 mg tablet 10 mg PO QDAY #30 tabs 05/31/25 dicyclomine 10 mg capsule 10 mg PO BID #30 caps 06/21/25 cholecalciferol (vitamin D3) 25 mcg (1,000 unit) tablet 25 mcg PO DAILY 07/08/25 dextroamphetamine-amphetamine ER 5 mg 24hr capsule,extend release 1 cap PO DAILY 07/08/25 acetaminophen 500 mg tablet 1,000 mg (2 x 500 mg) PO Q8H PRN PRN pain 1-10 #0 tabs 07/11/25 dicyclomine 10 mg capsule 10 mg PO Q6H PRN PRN abdominal cramp #30 caps 07/11/25 misoprostol 200 mcg tablet 200 mcg PO 4X/DAY #120 tabs 07/11/25 pantoprazole 40 mg tablet,delayed release 40 mg PO BID #60 tabs 07/11/25 Hospital Course Operations None Procedures EGD Summary of Care Provided Hospital Course: Current 30 minutes spent on discharge. Patient presents with near syncope. Patient's hemoglobin 6.6. Patient was transfused hemoglobin remained stable. Patient underwent EGD that showed an ulceration that was not bleeding at anastomosis from her prior [place]. Patient will continue with misoprostol and pantoprazole. Patient complaining of severe abdominal pain. She did have a CT of her abdomen pelvis that was unremarkable. Lipase was normal. Patient complaining of severe abdominal pain but she be able to sit up on her own accord without any difficulty. And had been witnessed eating regular food without any difficulty. We did review her OARRS that showed she had been receiving gabapentin through Dr. Rosenbaum. Asked patient while she was on gabapentin she was not able to specify but states that her abdominal pains been going on for years. No objective findings to support her severe abdominal pain and also her clincial presentation was not consistent with the severity of her symptoms. Weight / BMI Weight Weight: 71.6 kg Body Mass Index (BMI) 25.4 ABG / Lab / Microbiology Data 07/11/25 05:41 07/11/25 05:41 Laboratory: Laboratory Results - last 24 hr 07/11/25 05:41: WBC 4.8, RBC 3.24 L, Hgb 7.5 L, Hct 24.7 L, MCV 76.2 L, MCH 23.1 L, MCHC 30.4 L, RDW Std Deviation 60.9 H, RDW Coeff of Adelia 25.4 H, Plt Count 291, MPV 9.5, Immature Gran % (Auto) 0.400, Neut % (Auto) 52.1, Lymph % (Auto) 31.5, [place] % (Auto) 12.7 H, Eos % (Auto) 2.7, Baso % (Auto) 0.6, Absolute Neuts (auto) 2.5, Absolute Lymphs (auto) 1.51, Nucleated RBC % 0, Anisocytosis 2+, Sodium 134, Potassium 3.8, Chloride 104, Carbon Dioxide 21.7, Anion Gap 9, BUN 9, Creatinine 0.79, Estim Creat Clear Calc 65.63, Est GFR (MDRD) Non-Af 82, BUN/Creatinine Ratio 11.8, Glucose 97, Calcium 8.6 Microbiology: Microbiology 07/08/25 17:45 Stool Stool Occult Blood (YULISSA) - Final Occult Blood Positive D/C Instructions DC O2, CPAP, BIPAP Needs Home O2 Discharge instructions: No Meaningful Use Info Meaningful Use Meaningful Use Diagnoses (Choose all that apply): None applicable Discharge Plan Admission Admit Date/Time: 07/08/25 20:30 Primary Reason for Your Visit: Gi bleed. anemia. ulceration. Attending Provider: Randall Dubon Primary Care Provider: Elyssa Wright Consulting Providers: Lam Espinal; Sami Hansen; Eli Powell; Ruth Gaston; Evie Corrales Instructions Additional Instructions / Restrictions: No NSAIDs (medications such as naprosyn, ibuprofen, aspirin) for 1 year. Discharge Orders/Prescriptions Prescriptions: New acetaminophen 500 mg Tablet 1,000 mg PO Q8H PRN PRN (Reason: pain 1-10) Qty: 0 0RF misoprostol 200 mcg Tablet 200 mcg PO 4X/DAY Qty: 120 2RF pantoprazole 40 mg tablet,delayed release (DR/EC) 40 mg PO BID Qty: 60 2RF dicyclomine 10 mg capsule 10 mg PO Q6H PRN PRN (Reason: abdominal cramp) Qty: 30 0RF Continued (DME) syringe with needle 1 mL 25 gauge x 1 syringe See Rx Instructions .ROUTE .MEDSUPPLY Qty: 100 Rx Instructions: As directed ferrous gluconate 324 mg (38 mg iron) tablet 324 mg PO DAILY escitalopram oxalate 10 mg tablet 10 mg PO QDAY Qty: 30 1RF Rx Instructions: Take 0.5mg daily for 14 days then take 1 tablet daily thereafter dicyclomine 10 mg capsule 10 mg PO BID Qty: 30 2RF cyclobenzaprine 10 mg tablet 10 mg PO TID Patient Comments: leg spasm dextroamphetamine-amphetamine 5 mg capsule,extended release 24hr 1 cap PO DAILY cholecalciferol (vitamin D3) 25 mcg (1,000 unit) tablet 25 mcg PO DAILY albuterol sulfate 90 mcg/actuation HFA aerosol inhaler 2 puff INHALATION Q4H PRN (Reason: SOB, wheezing) Patient Comments: BREATHING (DME) rollator walker with seat See Rx Instructions .Route .MEDSUPPLY Qty: 1 0RF Rx Instructions: As directed valacyclovir [Valtrex] 500 mg tablet 500 mg PO DAILY Qty: 90 1RF Discontinued omeprazole 20 mg tablet,delayed release (DR/EC) 20 mg PO DAILY PRN (Reason: GERD) Referrals / Follow Up: Elyssa Wright MD [Primary Care Provider, Internal Medicine] - Within 2 Weeks Sami Hansen DO [Med Staff - Active Staff, Gastroenterology] - Within 3 Months Care Physician,No Primary [Non-Staff, Medical] Disposition Disposition (needs filled in before D/C Order can be placed): Home, Self Care Charges/Coding Visit Charges Inpatient E&M: 89308 Disch Hosp >30min
--- NOTE | 2025-07-11 12:25 | CASEMGMT ---
Patient has order for discharge. RN CM in to discuss needs at discharge. Patient denies needs or help at dishcarge. Patient states that she feels she is discharging to soon as her pain is not under control and her hemoglobin in 7.5. RN CM advised patient that she will update her nurse. Patient had no further questions or concerns. RN CM updated patient's nurse regarding pain and 7.5 hemoglobin.
== END 2025-07-11 13:23 | disposition home or self-care (01) | DRG 378 ==
LOC: ED 20:06 → PCU 20:34
PROVIDERS: Anesthesiology; Internal Medicine Gastroenterology; Admitting Provider Internal Medicine; Emergency Provider Emergency Medicine; PCP Internal Medicine
PROC: 0DJ08ZZ Inspection of Upper Intestinal Tract, Via Natural or Artificial Opening Endoscopic (ICD-10-PCS; CPT 43235; principal; 2025-07-10 14:55)
DX: K28.4 Chronic or unspecified gastrojejunal ulcer with hemorrhage (principal); I50.32 Chronic diastolic (congestive) heart failure; I13.0 Hypertensive heart and chronic kidney disease with heart failure and stage 1 through stage 4 chronic kidney disease, or unspecified chronic kidney disease; D62 Acute posthemorrhagic anemia; D13.2 Benign neoplasm of duodenum; N18.30 Chronic kidney disease, stage 3 unspecified; F32.A Depression, unspecified; F10.10 Alcohol abuse, uncomplicated; E53.8 Deficiency of other specified B group vitamins; E78.5 Hyperlipidemia, unspecified; I95.1 Orthostatic hypotension; F41.9 Anxiety disorder, unspecified; K31.A19 Gastric intestinal metaplasia without dysplasia, unspecified site; Y90.0 Blood alcohol level of less than 20 mg/100 ml; F43.10 Post-traumatic stress disorder, unspecified; R10.12 Left upper quadrant pain; Z98.84 Bariatric surgery status; Z79.899 Other long term (current) drug therapy; Z87.891 Personal history of nicotine dependence
CPT/HCPCS: 36415; 71045; 74177; 80048; 80053; 81001; 82077; 82274; 83690; 83735; 84484; 85014; 85018; 85025; 85610; 85730; 86850; 86900; 86901; 88305; 93005; 96365; 96366; 96375; 97162; 97166; 97802; 99285; P9016; Q9967; A4216; J2405; J2916

== ENCOUNTER 2025-07-20 13:24 | Emergency (ER) | payer MEDICARE, MEDICAID, SELFPAY ==
[2025-07-20 13:25] VITALS: BP 160/94; PULSE 84; RESP 18; TEMP 37.1; O2SAT 100
[2025-07-20 13:29] VITALS: BMI 25.5
--- NOTE | 2025-07-20 14:09 | EX.ED.DYSGE1 ---
HPI History of Present Illness Chief Complaint: Abd Pain Informant: patient Onset/Context/Timing Onset: Yesterday Context: Sudden Onset Timing: Continuous Quality: Sharp Location: Left upper abdomen Worsened by: Nothing Relieved by: Nothing Narrative Narrative: Patient presents with abdominal pain that began yesterday. Patient states it began rather suddenly. Patient states it is mainly over the left upper abdomen. Patient states it radiates into her left shoulder and neck. Patient describes it as sharp. Patient states it has been constant. Patient states nothing makes it better. Patient states nothing makes it worse. Patient denies any fevers or chills. Patient denies any chest pain or shortness of breath. Patient denies any dysuria, frequency, or hematuria. [facility] Medical History Wears hearing aid Wears dentures Wears glasses Post-menopausal Walker as ambulation aid Arthritis Easy bruising Back pain Loss of consciousness Gastric reflux Shortness of breath on exertion History of pain when walking History of echocardiogram History of stress test Cardiology follow-up encounter History of normal Holter exam Iron deficiency anemia due to chronic blood loss Abdominal pain Depression Anxiety Smoker Migraines TIA (transient ischemic attack) Chronic kidney disease (CKD), stage III (moderate) Vitamin D deficiency Hyperlipidemia GERD (gastroesophageal reflux disease) PTSD (post-traumatic stress disorder) Tobacco use ETOH abuse Iron (Fe) deficiency anemia History of GI bleed Chest pain Iron deficiency Insomnia Anxiety and depression Obesity (BMI 30-39.9) TMJ (temporomandibular joint syndrome) Chronic pain Hypertension ADHD (attention deficit hyperactivity disorder) Postsurgical malabsorption, not elsewhere classified B12 deficiency Anemia PUD (peptic ulcer disease) Home Medications ?Medication ?Instructions ?Recorded ?Last Taken ?Type rollator walker with seat #1 ea 10/09/20 Unknown Rx syringe with needle 1 mL 25 gauge #100 ea 03/05/21 Unknown History x 1 valacyclovir 500 mg tablet 500 mg PO DAILY Herpes Flare #90 10/28/21 01/23/25 Rx (Valtrex) tabs cyclobenzaprine 10 mg tablet 10 mg PO TID muscle spams 07/24/24 07/08/25 History albuterol sulfate 90 mcg/actuation 2 puff inhalation Q4H PRN SOB, 01/25/25 01/23/25 History aerosol inhaler wheezing ferrous gluconate 324 mg (38 mg 324 mg PO DAILY supplement 03/27/25 07/17/25 History iron) tablet dicyclomine 10 mg capsule 10 mg PO BID irritable bowel #30 06/21/25 07/08/25 Rx caps cholecalciferol (vitamin D3) 25 25 mcg PO DAILY vitamin 07/08/25 Unknown History mcg (1,000 unit) tablet acetaminophen 500 mg tablet 1,000 mg (2 x 500 mg) PO Q8H PRN 07/11/25 Unknown Rx PRN pain 1-10 #0 tabs dicyclomine 10 mg capsule 10 mg PO Q6H PRN PRN abdominal 07/11/25 Unknown Rx cramp #30 caps misoprostol 200 mcg tablet 200 mcg PO 4X/DAY #120 tabs 07/11/25 Unknown Rx pantoprazole 40 mg tablet,delayed 40 mg PO BID #60 tabs 07/11/25 Unknown Rx release dextroamphetamine-amphetamine ER 5 1 cap PO DAILY 30 days #30 caps 07/12/25 Unknown Rx mg 24hr capsule,extend release escitalopram oxalate 10 mg tablet 10 mg PO QDAY mental health #30 07/12/25 Unknown Rx tabs hyoscyamine sulfate 0.125 mg tablet 0.125 mg PO Q4H PRN PRN dyspepsia 07/13/25 Unknown Rx #180 tabs bisacodyl 5 mg tablet,delayed See Rx Instructions .Route 07/17/25 Unknown Rx release (Dulcolax (bisacodyl)) .COMPLEX #4 tabs polyethylene glycol 3350 17 See Rx Instructions .Route 07/17/25 Unknown Rx gram/dose oral powder (Miralax) .COMPLEX #238 grams triamterene 37.5 1 cap PO DAILY 07/18/25 Unknown History mg-hydrochlorothiazide 25 mg capsule peg 3350-electrolytes 236 240 ml PO Q10M #4,000 mL 07/19/25 Unknown Rx gram-22.74 gram-6.74 gram-5.86 gram solution (Golytely) Allergy/AdvReac Type Severity Reaction Status Date / Time buprenorphine (From [place]) Allergy Rash Verified 07/20/25 13:25 NSAIDS (Non-Steroidal AdvReac Nausea Verified 07/20/25 13:25 Anti-Inflamma Family History Father Myocardial infarction Alcohol abuse Heart disease CAD (coronary artery disease) Mother CVA (cerebral vascular accident) Hypertension Thrombosis Alcohol abuse Sister Lupus Surgical History History of esophagogastroduodenoscopy (EGD) History of esophagogastroduodenoscopy (EGD) History of cataract surgery Status post gastric bypass for obesity Hx of bariatric surgery S/P H/O gastric bypass (~1999) Social History household members: other details: grandson housing: house current occupational status: retired and disabled history of recent travel: No sexually active: No Smoking Status: Current some day smoker tobacco type: cigarettes and cigars Smokeless tobacco user: other alcohol intake: current alcohol intake frequency: 3 or more drinks per day details: Patient reports history of at 2-tall boys daily at least. substance use type: marijuana what type of physical activity do you participate in: none and walking seatbelt use: always do you feel safe at home: Yes additional social history: single ROS ROS ED Constitutional Constitutional ED: Denies chills or fever(s) Eyes Eyes: Denies blurry vision or change in vision ENT ENT ED: Denies rhinorrhea or sore throat Cardiovascular Cardiovascular: Denies chest pain or palpitations Respiratory/Chest Respiratory/Chest: Denies cough or dyspnea Gastrointestinal Gastrointestinal: Reports abdominal pain, melena and nausea; Denies vomiting Genitourinary Genitourinary ED: Denies dysuria or hematuria Musculoskeletal Musculoskeletal: Reports neck pain; Denies back pain Integumentary Denies abscess or rash Neurologic Neurologic: Denies headache(s) or weakness Allergic/Immunologic Allergic/Immunologic ED: Denies mouth swelling or urticaria EXAM Physical Exam Const Vital Signs: 07/20/25 13:25 07/20/25 15:25 Temperature 98.8 F Temperature Source Oral Pulse Rate 84 78 Respiratory Rate 18 12 Blood Pressure 160/94 H 155/92 H Blood Pressure Mean 116 113 Pulse Ox 100 98 Oxygen Delivery Method Room Air Positive well nourished and well developed General Appearance ED: well developed and NAD HEENT Reports moist mucous membranes Neck supple and no JVD Resp normal respiratory effort and clear to auscultation bilaterally Cardio regular rate and regular rhythm GI non-distended Palpation: soft and tender epigastric and LUQ; Negative for guarding or rebound tenderness present Extremity normal to inspection General Extremety ED: Negative for edema or tenderness General Extremity: Negative for edema Neuro oriented x3, CN's II-XII intact bilaterally and no sensory deficits noted Sensorium / Orientation: alert Motor Exam: strength 5/5 throughout Psych mental status grossly normal MDM MDM MDM Narrative Medical decision making narrative: Differential diagnosis includes but is not limited to bowel obstruction, perforation, abnormality, dehydration, anemia, pancreatitis, gastrointestinal bleeding, urinary tract infection, and viral illness. CBC will be obtained to assess for leukocytosis and anemia. Comprehensive metabolic profile will be obtained to assess for hepatic function, renal function, and electrolyte abnormality. Lipase will be obtained to assess for pancreatitis. Urinalysis will be obtained secondary to urinary tract infection and hematuria. Lab Data Attestation: I reviewed the patient's lab results. Lab results narrative: CBC was reviewed. There is a mild anemia with a hemoglobin of 9.3 and hematocrit 30.0. These are improved from previous results. Platelets were slightly elevated at 536. Comprehensive metabolic profile was reviewed. Creatinine was slightly elevated 1.23. The remainder was within normal limits. Lipase was reviewed and was normal at 33. Urinalysis was reviewed. There is no evidence of urinary tract infection or hematuria. Labs: Laboratory Results - last 24 hr 07/20/25 07/20/25 07/20/25 14:05 14:37 15:46 WBC 5.2 RBC 3.95 L Hgb 9.3 L Hct 30.0 L MCV 75.9 L MCH 23.5 L MCHC 31.0 L RDW Std Deviation 68.5 H RDW Coeff of Adelia 26.1 H Plt Count 536 H MPV 9.1 Immature Gran % (Auto) 0.200 Neut % (Auto) 50.2 Lymph % (Auto) 39.8 [place] % (Auto) 7.3 Eos % (Auto) 1.7 Baso % (Auto) 0.8 Absolute Neuts (auto) 2.6 Absolute Lymphs (auto) 2.07 Nucleated RBC % 0 Differential Comment SCANNED Platelet Estimate MOD INC Polychromasia 1+ Hypochromasia 1+ Anisocytosis 2+ Target Cells RARE Acanthocytes (Spur) 1+ Schistocytes 1+ Sodium 134 Potassium 3.8 Chloride 100 Carbon Dioxide 23.1 Anion Gap 10 BUN 14 Creatinine 1.23 H Estim Creat Clear Calc 46.32 L Est GFR (MDRD) Non-Af 49 L BUN/Creatinine Ratio 11.3 Glucose 104 H Lactic Acid < 1.0 Calcium 9.4 Total Bilirubin 0.24 AST 30 ALT 9 Alkaline Phosphatase 80 Total Protein 6.6 Albumin 3.9 Globulin 2.7 Albumin/Globulin Ratio 1.4 Lipase 33 Urine Color Yellow Urine Clarity Clear Urine pH 6.0 Ur Specific [place] 1.010 Urine Protein Negative Urine Glucose (UA) Normal Urine Ketones Negative Urine Occult Blood Negative Urine Nitrite Negative Urine Bilirubin Negative Urine Urobilinogen Normal Ur Leukocyte Esterase Negative Urine RBC 0-5 SEEN Urine WBC 0-5 SEEN Ur Squamous Epith Cells 0 SEEN Urine Bacteria 0 SEEN Urine Mucus 0 SEEN Treatment and Re-Evaluation :: Patient was given a IV fluids, morphine, and Zofran. Patient was feeling better on reevaluation. Patient was advised of her findings. Patient was instructed to follow-up with her primary care physician in 5 to 7 days. Patient was instructed to return if worse in any way. Patient understood and was agreeable with the plan. All questions were answered. Discharge Plan Triage Chief Complaint: Abd Pain ED Provider: Randall Cheng Dx/Rx/DC Orders Clinical Impression: Abdominal pain, Iron deficiency, Anemia Instructions: ED Abdominal Pain Unkn Cause Fem Prescriptions: No Action (DME) syringe with needle 1 mL 25 gauge x 1 syringe See Rx Instructions .ROUTE .MEDSUPPLY Qty: 100 Rx Instructions: As directed ferrous gluconate 324 mg (38 mg iron) tablet 324 mg PO DAILY dicyclomine 10 mg capsule 10 mg PO BID Qty: 30 2RF cyclobenzaprine 10 mg tablet 10 mg PO TID Patient Comments: leg spasm cholecalciferol (vitamin D3) 25 mcg (1,000 unit) tablet 25 mcg PO DAILY acetaminophen 500 mg Tablet 1,000 mg PO Q8H PRN PRN (Reason: pain 1-10) Qty: 0 0RF misoprostol 200 mcg Tablet 200 mcg PO 4X/DAY Qty: 120 2RF pantoprazole 40 mg tablet,delayed release (DR/EC) 40 mg PO BID Qty: 60 2RF dicyclomine 10 mg capsule 10 mg PO Q6H PRN PRN (Reason: abdominal cramp) Qty: 30 0RF albuterol sulfate 90 mcg/actuation HFA aerosol inhaler 2 puff INHALATION Q4H PRN (Reason: SOB, wheezing) Patient Comments: BREATHING triamterene-hydrochlorothiazid 37.5-25 mg capsule 1 cap PO DAILY (DME) rollator walker with seat See Rx Instructions .Route .MEDSUPPLY Qty: 1 0RF Rx Instructions: As directed valacyclovir [Valtrex] 500 mg tablet 500 mg PO DAILY Qty: 90 1RF dextroamphetamine-amphetamine 5 mg capsule,extended release 24hr 1 cap PO DAILY 30 Days Qty: 30 0RF escitalopram oxalate 10 mg tablet 10 mg PO QDAY Qty: 30 0RF hyoscyamine sulfate 0.125 mg tablet 0.125 mg PO Q4H PRN PRN (Reason: dyspepsia) Qty: 180 0RF bisacodyl [Dulcolax (bisacodyl)] 5 mg tablet,delayed release (DR/EC) See Rx Instructions .ROUTE .COMPLEX Qty: 4 0RF Rx Instructions: Take 4 tablets at once for colonoscopy prep polyethylene glycol 3350 [Miralax] 17 gram/dose powder See Rx Instructions .ROUTE .COMPLEX Qty: 238 0RF Rx Instructions: Mix entire bottle into 64oz clear liquid for colonoscopy peg 3350-electrolytes [Golytely] 236-22.74-6.74 -5.86 gram recon soln 240 ml PO Q10M Qty: 4000 0RF Rx Instructions: until fecal effluent is clear Primary Care Provider: Elyssa Wright Referrals: Elyssa Wright MD [Primary Care Provider, Internal Medicine] - 3-5 Days Print Language: Syriac Disposition Disposition: Home, Self Care
[2025-07-20] MEDS: 0.9% Normal Saline (1000mL) 1,000 ML 999 ML IV (14:15)
[2025-07-20 14:39] LABS: Hematocrit 30.0 % (37-47); Hemoglobin 9.3 g/dL (12.0-15.0); Immature Granulocytes Count 0.010 X10^3/uL (0.0-0.0); Mean Corp Hgb Conc 31.0 g/dL (32-36); Mean Corpuscular Volume 75.9 fL (81-99); Mean Platelet Vol. 9.1 fl (6.2-12.0); NRBC Flagged by Analyzer 0 % (0-5); POSITIVE MORPHOLOGY YES; Platelet Count 536 K/mm3 (150-450); RBC Distribution Width CV 26.1 % (11.6-14.6); RBC Distribution Width SD 68.5 fl (35.1-43.9); Red Blood Count 3.95 M/mm3 (4.2-5.4); White Blood Count 5.2 K/mm3 (4.4-11.0)
[2025-07-20 14:46] LABS: Differential Indicated SCAN CRITERIA MET
[2025-07-20 15:00] LABS: Lipase 33 U/L (13-75)
[2025-07-20 15:08] LABS: AST(SGOT) 30 U/L (<=31); Alanine Aminotransfer ALT/SGPT 9 U/L (<=34); Albumin, Serum 3.9 g/dL (3.4-4.8); Alkaline Phosphatase 80 U/L (35-104); Anion Gap 10 (5-15); BUN 14 mg/dL (4-19); BUN/Creat Ratio 11.3 RATIO (10-20); Calcium,Total 9.4 mg/dL (7.6-11.0); Carbon Dioxide 23.1 mmol/L (21.0-32.0); Chloride 100 mmol/L (98-108); Estimated Creatinine Clearance 46.32 ml/min (50-250); Globulin 2.7 g/dL (2.2-4.2); Glucose 104 mg/dL (70-99); Potassium 3.8 mmol/L (3.3-5.1)
[2025-07-20 15:25] VITALS: BP 155/92; PULSE 78; RESP 12; O2SAT 98
[2025-07-20 15:34] LABS: Differential Comment SCANNED
[2025-07-20 15:36] LABS: Anisocytosis 2+
[2025-07-20 15:38] LABS: Hypochromasia 1+; Polychromasia 1+
[2025-07-20 15:40] LABS: Acanthocytes 1+; Schistocytes 1+
[2025-07-20 15:41] LABS: Target Cells RARE
[2025-07-20 15:52] LABS: Mucous, Urine 0 SEEN /hpf (<or=2+); Squamous Epithelial Cells - UA 0 SEEN /hpf (5-10)
[2025-07-20 16:08] LABS: Color, Urine Yellow (Yellow); Glucose, Dipstick Normal (Normal); Ketone-Dipstick Negative (Negative); Leukocyte Esterase-Dipstick Negative /ul (Negative); Nitrite-Dipstick Negative (Negative); Occult Blood-Urine Negative /ul (Negative); Protein-Dipstick Negative (Negative); Specific Gravity, Urine 1.010 (1.002-1.030); Urine Bilirubin Dipstick Negative (Negative)
[2025-07-20 16:22] LABS: Red Blood Cells-Urine 0-5 SEEN /hpf (0-5)
[2025-07-20 16:35] VITALS: BP 155/92; PULSE 80; RESP 18; TEMP 36.6; O2SAT 99
== END 2025-07-20 16:45 | disposition home or self-care (01) ==
PROVIDERS: Emergency Provider Emergency Medicine; PCP Internal Medicine; Visit Provider Emergency Medicine
DX: R10.12 Left upper quadrant pain (principal); N18.30 Chronic kidney disease, stage 3 unspecified; R11.0 Nausea; D50.9 Iron deficiency anemia, unspecified; K21.9 Gastro-esophageal reflux disease without esophagitis; E55.9 Vitamin D deficiency, unspecified; E66.9 Obesity, unspecified; F41.9 Anxiety disorder, unspecified; F32.A Depression, unspecified; F43.10 Post-traumatic stress disorder, unspecified; F90.9 Attention-deficit hyperactivity disorder, unspecified type; I12.9 Hypertensive chronic kidney disease with stage 1 through stage 4 chronic kidney disease, or unspecified chronic kidney disease; G89.29 Other chronic pain; F17.290 Nicotine dependence, other tobacco product, uncomplicated; F17.210 Nicotine dependence, cigarettes, uncomplicated; Z98.84 Bariatric surgery status; Z87.11 Personal history of peptic ulcer disease; Z87.19 Personal history of other diseases of the digestive system; Z86.73 Personal history of transient ischemic attack (TIA), and cerebral infarction without residual deficits; Z79.899 Other long term (current) drug therapy
CPT/HCPCS: 80053; 81001; 83605; 83690; 85025; 96361; 96374; 96375; 99284; A4216; J2405

== ENCOUNTER 2025-07-24 03:15 | Emergency (ER) | payer MEDICARE, MEDICAID, SELFPAY ==
[2025-07-24 03:16] VITALS: BP 143/86; PULSE 94; RESP 18; TEMP 36.6; O2SAT 100; BMI 22.9
--- NOTE | 2025-07-24 03:33 | EDS_ITS ---
HPI HPI - GI History of Present Illness Chief Complaint: Abd Pain Informant: patient Narrative Narrative: Patient is a 65-year-old female presenting with worsening abdominal and shoulder pain. - Reports abdominal and shoulder pain for a year or more, with significant worsening over the past week. Pain is described as severe tonight, waking her up from sleep, stating, It's bad, I can't take it. - Recently visited the ED for the same issue. She does not know what was seen on testing; limited informant. - Pain is exacerbated by eating, described as uncomfortable. - Denies emesis, but notes lack of appetite. - Reports occasional chronic hematochezia but nothing tonight or earlier this past day; scheduled for a colonoscopy on the due to this and recurrent abdominal pain. - Denies diarrhea, dysuria, cough, or fevers. PFSH [facility] Medical History Wears hearing aid Wears dentures Wears glasses Post-menopausal Walker as ambulation aid Arthritis Easy bruising Back pain Loss of consciousness Gastric reflux Shortness of breath on exertion History of pain when walking History of echocardiogram History of stress test Cardiology follow-up encounter History of normal Holter exam Iron deficiency anemia due to chronic blood loss Abdominal pain Depression Anxiety Smoker Migraines TIA (transient ischemic attack) Chronic kidney disease (CKD), stage III (moderate) Vitamin D deficiency Hyperlipidemia GERD (gastroesophageal reflux disease) PTSD (post-traumatic stress disorder) Tobacco use ETOH abuse Iron (Fe) deficiency anemia History of GI bleed Chest pain Iron deficiency Insomnia Anxiety and depression Obesity (BMI 30-39.9) TMJ (temporomandibular joint syndrome) Chronic pain Hypertension ADHD (attention deficit hyperactivity disorder) Postsurgical malabsorption, not elsewhere classified B12 deficiency Anemia PUD (peptic ulcer disease) Home Medications ?Medication ?Instructions ?Recorded ?Last Taken ?Type rollator walker with seat #1 ea 10/09/20 Unknown Rx syringe with needle 1 mL 25 gauge #100 ea 03/05/21 Unk nown History x 1 valacyclovir 500 mg tablet 500 mg PO DAILY Herpes Flar e #90 10/28/21 01/23/25 Rx (Valtrex) tabs cyclobenzaprine 10 mg tablet 10 mg PO TID muscle spams 07/24/24 07/08/25 History albuterol sulfate 90 mcg/actuation 2 puff inhalation Q 4H PRN SOB, 01/25/25 01/23/25 History aerosol inhaler wheezing ferrous gluconate 324 mg (38 mg 324 mg PO DAILY supple ment 03/27/25 07/17/25 History iron) tablet cholecalciferol (vitamin D3) 25 25 mcg PO DAILY vitami n 07/08/25 Unknown History mcg (1,000 unit) tablet acetaminophen 500 mg tablet 1,000 mg (2 x 500 mg) PO Q 8H PRN 07/11/25 Unknown Rx PRN pain 1-10 #0 tabs dicyclomine 10 mg capsule 10 mg PO Q6H PRN PRN abdomin al 07/11/25 Unknown Rx cramp #30 caps misoprostol 200 mcg tablet 200 mcg PO 4X/DAY #120 tabs 07/11/25 Unknown Rx pantoprazole 40 mg tablet,delayed 40 mg PO BID #60 tab s 07/11/25 Unknown Rx release dextroamphetamine-amphetamine ER 5 1 cap PO DAILY 30 d ays #30 caps 07/12/25 Unknown Rx mg 24hr capsule,extend release escitalopram oxalate 10 mg tablet 10 mg PO QDAY mental health #30 07/12/25 Unknown Rx tabs hyoscyamine sulfate 0.125 mg tablet 0.125 mg PO Q4H MA N PRN dyspepsia 07/13/25 Unknown Rx #180 tabs bisacodyl 5 mg tablet,delayed See Rx Instructions .Rou te 07/17/25 Unknown Rx release (Dulcolax (bisacodyl)) .COMPLEX #4 tabs polyethylene glycol 3350 17 See Rx Instructions .Route 07/17/25 Unknown Rx gram/dose oral powder (Miralax) .COMPLEX #238 grams triamterene 37.5 1 cap PO DAILY 07/18/25 Unkn own History mg-hydrochlorothiazide 25 mg capsule peg 3350-electrolytes 236 240 ml PO Q10M #4,000 mL Unknown Rx gram-22.74 gram-6.74 gram-5.86 gram solution (Golytely) ondansetron 8 mg disintegrating 8 mg PO Q8H PRN nausea and 07/24/25 Unknown Rx tablet vomiting #10 tabs sucralfate 1 gram tablet (Carafate) 1 g PO TID 4 days #12 tabs 07/24/25 Unknown Rx Allergy/AdvReac Type Severity Reaction Status Date / Time buprenorphine (From [place]) Allergy Rash Verified 07/24/25 03:19 NSAIDS (Non-Steroidal AdvReac Nausea Verified 07/24/25 03:19 Anti-Inflamma Family History Father Myocardial infarction Alcohol abuse Heart disease CAD (coronary artery disease) Mother CVA (cerebral vascular accident) Hypertension Thrombosis Alcohol abuse Sister Lupus Surgical History History of esophagogastroduodenoscopy (EGD) History of esophagogastroduodenoscopy (EGD) History of cataract surgery Status post gastric bypass for obesity Hx of bariatric surgery S/P H/O gastric bypass (~1999) Social History household members: other details: grandson housing: house current occupational status: retired and disabled history of recent travel: No sexually active: No Smoking Status: Current some day smoker tobacco type: cigarettes and cigars Smokeless tobacco user: other alcohol intake: current alcohol intake frequency: 3 or more drinks per day details: Patient reports history of at 2-tall boys daily at least. substance use type: marijuana what type of physical activity do you participate in: none and walking seatbelt use: always do you feel safe at home: Yes additional social history: single ROS ROS ED Constitutional Constitutional ED: Denies chills or fever(s) Eyes Eyes: Denies change in vision or diplopia ENT ENT ED: Denies rhinorrhea or sore throat Cardiovascular Cardiovascular: Denies chest pain or palpitations Respiratory/Chest Respiratory/Chest: Denies cough or dyspnea Gastrointestinal Gastrointestinal: Reports abdominal pain and nausea; Denies diarrhea, melena or vomiting Genitourinary Genitourinary ED: Denies dysuria or hematuria Musculoskeletal Musculoskeletal: Denies back pain or neck pain Integumentary Denies abscess or rash Neurologic Neurologic: Denies headache(s), paresthesias or weakness Psychiatric Psychiatric: Reports anxiety; Denies suicidal thoughts EXAM Physical Exam Const Vital Signs: 07/24/25 03:16 Temperature 97.8 F Temperature Source Temporal Pulse Rate 94 Respiratory Rate 18 Blood Pressure 143/86 H Blood Pressure Mean 105 Pulse Ox 100 Positive well nourished and well developed Constitutional Narrative: Hunched over while sitting in bed, in mild painful distress and anxious. Able to follow commands and lay back temporarily. General Appearance ED: well developed HEENT Reports moist mucous membranes normocephalic and atraumatic Eyes PERRL and EOMs intact bilaterally Neck full ROM and supple Resp normal respiratory effort and clear to auscultation bilaterally Cardio regular rate, regular rhythm and no murmurs GI non-distended GI Narrative: Very tender in the left upper quadrant with voluntary guarding, less tender in epigastrium otherwise benign abdomen nontender normal bowel sounds nondistended. Auscultation: normoactive bowel sounds Palpation: soft Back/Spine no CVA tenderness General Back: other FROM Extremity normal to inspection General Extremety ED: Negative for edema, pulses abnormal or tenderness General Extremity: Negative for edema or pulses abnormal Neuro oriented x3, CN's II-XII intact bilaterally and no sensory deficits noted Sensorium / Orientation: awake and alert Motor Exam: strength 5/5 throughout Psych Attitude: agitated Mood & Affect: anxious Skin no rashes or lesions noted and no wounds MDM MDM MDM Narrative Medical decision making narrative: Assessment: The patient is a 65-year-old female with history of Dillon-en-Y gastric bypass and chronic alcohol use presenting for worsening left upper quadrant abdominal pain radiating to the left shoulder, associated with nausea but no vomiting. She was hospitalized two weeks ago for similar symptoms; EGD at that time showed ulcerations at the gastrojejunostomy junction thought to be alcohol related. Today?s labs show Hgb 8.9 (stable anemia), bicarbonate 18.4, WBC 5.8 without left shift, normal liver enzymes, and normal lipase, arguing against acute infection, pancreatitis, or biliary obstruction. Pain improved markedly after IV fluids, morphine, ondansetron, and a GI cocktail. Given prior EGD findings and current improvement with acid suppression and mucosal protection, gastric ulcerations at the GJ junction remain the most likely etiology of her pain. Plan: - IV fluids, morphine, ondansetron, and GI cocktail administered in ED with good symptom relief - Prescribed sucralfate for 3 days - Reinforced strict alcohol cessation; advised continuation of pantoprazole and misoprostol - Discharge home with instructions to follow up with GI as already scheduled Diagnostics: - Labs: CBC?Hgb 8.9 g/dL, WBC 5.8 K/?L; CMP?bicarbonate 18.4 mmol/L, normal liver enzymes; Lipase normal Reevaluations: - Patient reports ?much, much better? pain control after ED medications; abdominal tenderness markedly improved; tolerating oral fluids Portions of this note were generated using voice recognition software ([employer] Dictation). I have reviewed the contents and every effort has been made to ensure accuracy; however, inadvertent errors in grammar, spelling, punctuation, or word choice may occur, that were not noted before signing the document and should not alter the intended clinical meaning. History & Record Review Additional record(s) reviewed:: Prior inpatient record Lab Data Attestation: I reviewed the patient's lab results. Labs: Laboratory Results - last 24 hr 07/24/25 07/24/25 03:30 04:13 WBC 5.8 RBC 3.88 L Hgb 8.9 L Hct 28.6 L MCV 73.7 L MCH 22.9 L MCHC 31.1 L RDW Std Deviation 66.9 H RDW Coeff of [place] 26.3 H Plt Count 511 H MPV 8.6 Immature Gran % (Auto) 0.500 Neut % (Auto) 44.5 L Lymph % (Auto) 44.9 H [place] % (Auto) 7.8 Eos % (Auto) 1.6 Baso % (Auto) 0.7 Absolute Neuts (auto) 2.6 Absolute Lymphs (auto) 2.59 Nucleated RBC % 0 Anisocytosis 2+ Sodium Cancelled 136 Potassium Cancelled 4.2 Chloride Cancelled 104 Carbon Dioxide Cancelled 18.4 L Anion Gap Cancelled 13 BUN Cancelled 14 Creatinine Cancelled 1.10 Estim Creat Clear Calc 47.73 L Est GFR (MDRD) Non-Af Cancelled 56 L BUN/Creatinine Ratio Cancelled 12.8 Glucose Cancelled 91 Calcium Cancelled 9.1 Total Bilirubin Cancelled < 0.15 AST Cancelled 26 ALT Cancelled 12 Alkaline Phosphatase Cancelled 68 Total Protein Cancelled 6.2 Albumin Cancelled 3.6 Globulin Cancelled 2.5 Albumin/Globulin Ratio Cancelled 1.4 Lipase 39 Discharge Plan Triage Chief Complaint: Abd Pain ED Provider: Varun Lockhart Dx/Rx/DC Orders Clinical Impression: Acute LUQ pain, Nausea, Iron deficiency anemia, Alcohol use Instructions: ED Gastritis (Adult) Prescriptions: New sucralfate [Carafate] 1 gram tablet 1 g PO TID 4 Days Qty: 12 0RF ondansetron 8 mg tablet,disintegrating 8 mg PO Q8H PRN (Reason: nausea and vomiting) Qty: 10 0RF Continued (DME) syringe with needle 1 mL 25 gauge x 1 syringe See Rx Instructions .ROUTE .MEDSUPPLY Qty: 100 Rx Instructions: As directed ferrous gluconate 324 mg (38 mg iron) tablet 324 mg PO DAILY cyclobenzaprine 10 mg tablet 10 mg PO TID Patient Comments: leg spasm cholecalciferol (vitamin D3) 25 mcg (1,000 unit) tablet 25 mcg PO DAILY acetaminophen 500 mg Tablet 1,000 mg PO Q8H PRN PRN (Reason: pain 1-10) Qty: 0 0RF misoprostol 200 mcg Tablet 200 mcg PO 4X/DAY Qty: 120 2RF pantoprazole 40 mg tablet,delayed release (DR/EC) 40 mg PO BID Qty: 60 2RF dicyclomine 10 mg capsule 10 mg PO Q6H PRN PRN (Reason: abdominal cramp) Qty: 30 0RF albuterol sulfate 90 mcg/actuation HFA aerosol inhaler 2 puff INHALATION Q4H PRN (Reason: SOB, wheezing) Patient Comments: BREATHING triamterene-hydrochlorothiazid 37.5-25 mg capsule 1 cap PO DAILY (DME) rollator walker with seat See Rx Instructions .Route .MEDSUPPLY Qty: 1 0RF Rx Instructions: As directed valacyclovir [Valtrex] 500 mg tablet 500 mg PO DAILY Qty: 90 1RF dextroamphetamine-amphetamine 5 mg capsule,extended release 24hr 1 cap PO DAILY 30 Days Qty: 30 0RF escitalopram oxalate 10 mg tablet 10 mg PO QDAY Qty: 30 0RF hyoscyamine sulfate 0.125 mg tablet 0.125 mg PO Q4H PRN PRN (Reason: dyspepsia) Qty: 180 0RF bisacodyl [Dulcolax (bisacodyl)] 5 mg tablet,delayed release (DR/EC) See Rx Instructions .ROUTE .COMPLEX Qty: 4 0RF Rx Instructions: Take 4 tablets at once for colonoscopy prep polyethylene glycol 3350 [Miralax] 17 gram/dose powder See Rx Instructions .ROUTE .COMPLEX Qty: 238 0RF Rx Instructions: Mix entire bottle into 64oz clear liquid for colonoscopy peg 3350-electrolytes [Golytely] 236-22.74-6.74 -5.86 gram recon soln 240 ml PO Q10M Qty: 4000 0RF Rx Instructions: until fecal effluent is clear Discontinued dicyclomine 10 mg capsule 10 mg PO BID Qty: 30 2RF Primary Care Provider: Elyssa Wright Referrals: Elyssa Wright MD [Primary Care Provider, Internal Medicine] - 3-5 Days if not improving Referral Note: or Dr. Hansen Activity Restrictions/Additional Instructions: - Start sucralfate as prescribed for the next few days. - Continue pantoprazole twice daily. - Continue your misoprostol as before. - Avoid all alcohol. - Follow up with your GI specialist as scheduled (colonoscopy on the ). Print Language: [place] Disposition Disposition: Home, Self Care
[2025-07-24 03:39] LABS: Hematocrit 28.6 % (37-47); Hemoglobin 8.9 g/dL (12.0-15.0); Immature Granulocytes Count 0.030 X10^3/uL (0.0-0.0); Mean Corp Hgb Conc 31.1 g/dL (32-36); Mean Corpuscular Volume 73.7 fL (81-99); Mean Platelet Vol. 8.6 fl (6.2-12.0); NRBC Flagged by Analyzer 0 % (0-5); POSITIVE MORPHOLOGY YES; Platelet Count 511 K/mm3 (150-450); RBC Distribution Width CV 26.3 % (11.6-14.6); RBC Distribution Width SD 66.9 fl (35.1-43.9); Red Blood Count 3.88 M/mm3 (4.2-5.4); White Blood Count 5.8 K/mm3 (4.4-11.0)
[2025-07-24] MEDS: 0.9% Normal Saline (500mL Bag) 500 ML 999 ML IV (03:41)
[2025-07-24 03:42] LABS: Differential Indicated SCAN CRITERIA MET
[2025-07-24 04:03] LABS: Lipase 39 U/L (13-75)
[2025-07-24 04:14] LABS: Anisocytosis 2+
--- OUTSIDE RECORDS SUMMARY | 2025-07-24 04:18 | XMS RPT_ITS | CCD ---
Author Organization [facility] ion [facility] Care Team Providers Care Education Supervisor Name Role Phone Prateek Lockhart Unavailable Care Physician, No Primary Primary Care Provider Unavailable Dr. Albert Carbone Emergency Provider Dr. Jeniffer Campos Admit Provider Dr. Jeniffer Campos Other Provider [phone] Drew Solis Attending Provider Unavailable [...] ilable Angie Judd Attending Unavail able Peggy DOWNSTAIRS MAID, [place] Attending Unavailable Care Physician, No Primary Primary Care Unava ilable Peggy DOWNSTAIRS MAID, [place] Referring Unavailable Virginie Aguillon Consulting Unavailable Virginie Aguillon Admitting Unavailable Care Physician, No Primary Primary Care Unava ilable Lam Espinal Attending Unavailable Gila Reeves Referring Unavailable Lam Espinal Consulting Unavailable Care Physician, No Primary Primary Care Unava ilable Machelle Muñoz Attending Unavailable Tristan, Stoney Chi Primary Care Unavailable Tristan, Stoney Chi Referring Unavailable Lindsay, Ta Attending Unavailable Tristan, Stoney Chi Primary Care Unavailable Keesha Mñuozon Attending Unavailable Tristan, Stoney Chi Primary Care [...] Unavail able Lindsay, Ta Referring Unavailable Lindsay, Burgin Attending Unavailable Tristan, Stoney Chi Attending Unavailable [...] to adverse reactions to drug 4 Nausea [facility] Work Phone: (8 sources) Buprenorphine; Translations: [buprenorphine] Drug Allergy 2 Rash [facility] (7 sources) Nonsteroidal Anti-inflammatory Compounds Propensity to adverse reactions 2 Nausea [facility] (1 source) Iron and iron compound; Translations: [iron containing compounds] Drug allergy [facility] (1 source) NSAIDs; Translations: [NSAIDS (NON-STEROIDAL ANTI-INFLAMMATORY DRUG)] Propensity to adverse reactions to drug (disorder) 4 [facility] (1 source) Buprenorphine Drug Allergy 5 [facility] (1 source) NSAIDs Drug allergy (disorder) 5 [facility] Repository Medications Current Medications Medication Drug Class(es) [...] week vitamin D2 ergocalciferol (DRISDOL) 1.25 MG (20421 UT) capsule Take 1 Capsule by mouth once weekly. 12 Capsule 3 03/09/2023 03/08/2024 Active Start: 11-26-2021 take 71188 [IU] by m outh every other week Ergocalciferol (Vitamin D2) Active 28454 UNIT PO every 2 weeks November 26, 2021 4:30pm Start: 11-26-2021 End: 11-26-2021 take 23042 [IU] by mouth every week Ergocalciferol (Vitamin D2) Discontinued 00881 UNIT PO EVERY WEEK 12 90 November 26, 2021 2:13pm November 26, 2021 4:30pm Start: 06-06-2020 End: 11-26-2021 take 58542 [IU] by mouth two times weekly Ergocalciferol (Vitamin D2) Discontinued 80321 UNIT PO TWICE A WEEK 60 90 June 10, 2021 6:28pm November 26, 2021 2:13pm Start: 07-12-2019 End: 06-06-2020 take 92843 [IU] by mouth every week Ergocalciferol (Vitamin D2) Discontinued 86329 UNIT PO Q7D July 12, 2019 1:00am [...] by mouth every six hours Hydrocodone-Acetami nophen (Wingate) 7.5-325 mg tablet Discontinued 1 TABLET PO EVERY 6 HOURS June 05, 2020 9:34am August 01, 2020 3:19pm Dr Ortega Start: 05-14-2018 Wingate 325- 7.5 mg oral tablet 325-7.5, Oral, [...] September 25, 2020 12:44pm polyethylene glycol 3350 09942 mg powder for oral solution (1 source) [...] Interpretation Reference Range Facility MR/BMS.BPon 05-31-2025 MR/BMS.BP [facility] [address], [address] [place] [address] OFFICE VISIT Date of Service: 05/31/25 MR#: [id number] Acct: [id number] Name: MORENA PATTON Rep #: [id number] : 1960 Provider: KATIE dewey Age/Sex: 65/F Location[place] [facility] Status: Signed Intake Vital Signs 03/27/25 11:23 05/31/25 09:49 Height 5 ft 6 in 5 ft 6 in Weight: 155 lb 151 lb BMI 25.0 24.3 BP 130/85 H 106/71 Blood Pressure Location Lt brachial Lt brachial Position Sitting Sitting Respiration 18 16 Pulse 87 69 Pulse Source Monitor Monitor BP Intake Visit Reasons: Follow up Accompanied by: Self Allergies buprenorphine (From [employer]) Allergy (Verified 05/31/25 09:54) Rash NSAIDS (Non-Steroidal [...] and van (more content not included)... Normal [facility] Echo Completeon 04-26-2025 Echo Complete [facility] [address] [place] [address] Echo Complete 04/26/25 0947 MR#: [id number] Acct: [id number] Name: MORENA PATTON Rep #: [id number] : 1960 65 From: Ta Montoya MD Attending Dr: Dr. Ta Montoya MD Status: MACY PHIPPS Ordering Dr: Angie Sandoval Date: 04/03 12/24 Location: [facility] Sex: F AA Admitted: Reason [...] Date Ta Montoya MD CC: Dr. Ta Mnotoya MD; MANUELA Middleton; No Primary Care Physician Date Dictated: 04/26/2547 Date Transcribed: 04/26/25 1239 Paperboard Box Maker: Signed Normal [facility] Stress Reporton 04-26-2025 Stress Report [facility] [address] [place] [address] MR#: [id number] Acct: [id number] Name: MORENA PATTON Rep #: [id number] : 1960 65 From: Ta Montoya MD [...] Physician Date Dictated: 04/26/251327 Date Transcribed: 04/26/251327 Paperboard Box Maker: CO Signed Normal [facility] Cardiology Visit Reporton Cardiology Visit Report [facility] [address] [place] [address] OFFICE VISIT Date of Service: 03/27/25 MR#: [id number] Acct: [id number] Name: MORENA PATTON Rep #: [id number] : 1960 Provider: MANUELA Tsang Age/Sex: 65/F Location[place] [facility] Status: Signed HPI HPI History of [...] Monitor Intake Visit Reasons: 7 M FU Decoration Checker Required: No Accompanied by: Daughter In Law [...] with activity (more content not included)... Normal [facility] CBC W/Diff, Automatedon 08- Anisocytosis Ql (Bld) 2+ Normal [facility] Comment on above: Performed By: #### L 100.0100, L500.4050, L503.6550, L503.6030 #### [facility] [address] [place], [address] PLT EST A Normal ADEQ [facility] Comment on above: Performed By: #### L 100.0100, L500.4050, L503.6550, L503.6030 #### [facility] [address] [place], [address] TARGET CELLS 2+ Normal [facility] Comment on above: Performed By: #### L 100.0100, L500.4050, L503.6550, L503.6030 #### [facility] [address] [place], [address] Comprehensive Metabolic Prof ilon 03-05-2025 Albumin [Mass/Vol] 4.2 g/dL Normal 3.4-4.8 [facility] Comment on above: Performed By: #### L 100.0100, L500.4050, L503.6550, L503.6030 #### [facility] [address] [place], [address] Albumin/Globulin [Mass ratio] 1.6 {ratio} Normal 0.9-2.4 [facility] Comment on above: Performed By: #### L 100.0100, L500.4050, L503.6550, L503.6030 #### [facility] [address] [place], [address] ALK PHOS 98 U/L Normal 35-104 [facility] Comment on above: Performed By: #### L 100.0100, L500.4050, L503.6550, L503.6030 #### [facility] [address] [place], [address] ALT [Catalytic activity/Vol] 12 U/L Normal <=34 [facility] Comment on above: Performed By: #### L 100.0100, L500.4050, L503.6550, L503.6030 #### [facility] [address] [place], [address] AST [Catalytic activity/Vol] 26 U/L Normal <=31 [facility] Comment on above: Performed By: #### L 100.0100, L500.4050, L503.6550, L503.6030 #### [facility] [address] [place], [address] Bilirubin [Mass/Vol] 0.23 mg/dL Normal 0.00-1.30 [facility] Comment on above: Performed By: #### L 100.0100, L500.4050, L503.6550, L503.6030 #### [facility] [address] [place], [address] BUN/CRE 12.9 RATIO Normal 10-20 [facility] Comment on above: Performed By: #### L 100.0100, L500.4050, L503.6550, L503.6030 #### [facility] [address] [place], [address] Calcium [Mass/Vol] 9.6 mg/dL Normal 7.6-11.0 [facility] Comment on above: Performed By: #### L 100.0100, L500.4050, L503.6550, L503.6030 #### [facility] [address] [place], [address] Chloride [Moles/Vol] 107 mmol/L Normal 98-108 [facility] Comment on above: Performed By: #### L 100.0100, L500.4050, L503.6550, L503.6030 #### [facility] [address] [place], [address] CO2 [Moles/Vol] 21.1 mmol/L Normal 21.0-32.0 [facility] Comment on above: Performed By: #### L 100.0100, L500.4050, L503.6550, L503.6030 #### [facility] [address] [place], [address] Creatinine [Mass/Vol] 0.87 mg/dL Normal 0.70-1.20 [facility] Comment on above: Performed By: #### L 100.0100, L500.4050, L503.6550, L503.6030 #### [facility] [address] [place], [address] GAP 12 Normal 5-15 [facility] Comment on above: Performed By: #### L 100.0100, L500.4050, L503.6550, L503.6030 #### [facility] [address] [place], [address] GFR/1.73 sq M.predicted among non-blacks MDRD (S/P/Bld) [Vol rate/Area] 74 mL/min/{1.73_m2} Normal >60 [facility] Comment on above: Result Comment: mL/m in/1.73m2 CKD-EPI Creatinine Equation (2020) Performed By: #### L 100.0100, L500.4050, L503.6550, L503.6030 #### [facility] [address] [place], [address] Globulin (S) [Mass/Vol] 2.7 g/dL Normal 2.2-4.2 [facility] Comment on above: Performed By: #### L 100.0100, L500.4050, L503.6550, L503.6030 #### [facility] [address] [place], [address] Glucose [Mass/Vol] 108 mg/dL High 70-99 [facility] Comment on above: Performed By: #### L 100.0100, L500.4050, L503.6550, L503.6030 #### [facility] [address] [place], [address] Potassium [Moles/Vol] 4.3 mmol/L Normal 3.3-5.1 [facility] Comment on above: Performed By: #### L 100.0100, L500.4050, L503.6550, L503.6030 #### [facility] [address] [place], [address] Sodium [Moles/Vol] 140 mmol/L Normal 133-145 [facility] Comment on above: Performed By: #### L 100.0100, L500.4050, L503.6550, L503.6030 #### [facility] [address] [place], [address] T PROT 6.9 g/dL Normal 5.9-8.4 [facility] Comment on above: Performed By: #### L 100.0100, L500.4050, L503.6550, L503.6030 #### [facility] [address] [place], [address] Urea nitrogen [Mass/Vol] 11 mg/dL Normal 4-19 [facility] Comment on above: Performed By: #### L 100.0100, L500.4050, L503.6550, L503.6030 #### [facility] [address] [place], [address] Ferritinon 03-05-2025 Ferritin [Mass/Vol] 36 ng/mL Normal 22-378 [facility] Comment on above: Performed By: #### L 100.0100, L500.4050, L503.6550, L503.6030 #### [facility] [address] [place], [address] Iron+Iron Binding Capacityon 03-05-2025 Iron [Mass/Vol] 42 ug/dL Low 50-170 [facility] Comment on above: Performed By: #### L 100.0100, L500.4050, L503.6550, L503.6030 #### [facility] [address] [place], [address] IRON SATURATION 11.0 Low 13-59 [facility] Comment on above: Performed By: #### L 100.0100, L500.4050, L503.6550, L503.6030 #### [facility] [address] [place], [address] TIBC 382 ug/dL Normal 250-450 [facility] Comment on above: Performed By: #### L 100.0100, L500.4050, L503.6550, L503.6030 #### [facility] [address] [place], [address] UIBC 340 ug/dL Normal 228-428 [facility] Comment on above: Performed By: #### L 100.0100, L500.4050, L503.6550, L503.6030 #### [facility] [address] [place], [address] Oncology Visit Reporton Oncology Visit Report [facility] [place] [facility] [address] [place] [address] OFFICE VISIT Date of Service: 03/05/25 1152 MR#: [id number] Acct: [id number] Name: MORENA PATTON Rep #: [id number] : 1960 From: Jose Rachel MD Age/Sex: 65/F Location[place] [facility] Status: Signed HPI Subjective Date of [...] transfer of her hematology care to myself. [facility] Medical History (Updated 03/05/25 @ 12:10 by [...] 100 Oxygen Delivery Method room air Intake Decoration Checker Required: No Accompanied by: Grandson Is patient in pain?: Yes (headache) Pain scale (1-10): 5 Allergies buprenorphine (From [employer]) Allergy (Verified 03/05/25 11:55) Rash NSAIDS (Non-Steroidal Anti-Inflamma Adverse Reaction (Verified 03/05/25 11:5 (more content not included)... Normal [facility] Vitamin B12on 03-05-2025 Cobalamin (Vitamin B12) [Mass/Vol] 442 pg/mL Normal 180-914 [facility] Comment on above: Order Comment: ADD O N Performed By: #### L 503.0106 #### [facility] [address] 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 Could not absorb oral iron) Disposition Disposition (needs filled in before D/C Order can be placed): Home, Self Care 01/27/25 1151 Lam Espinal MD CC: Dr. Virginie Aguillon MD; No Primary Care Physician Signed Normal [facility] Basic Metabolic Profile (BMP )on 01-26-2025 BUN/CRE 13.3 RATIO Normal 10-20 [facility] Comment on above: Performed By: #### L 503.0106 #### [facility] [address] [place], [address] Calcium [Mass/Vol] 9.0 mg/dL Normal 7.6-11.0 [facility] Comment on above: Performed By: #### L 503.0106 #### [facility] [address] [place], [address] Chloride [Moles/Vol] 107 mmol/L Normal 98-108 [facility] Comment on above: Performed By: #### L 503.0106 #### [facility] [address] [place], [address] CO2 [Moles/Vol] 18.7 mmol/L Low 21.0-32.0 [facility] Comment on above: Performed By: #### L 503.0106 #### [facility] [address] [place], [address] Creatinine [Mass/Vol] 0.92 mg/dL Normal 0.70-1.20 [facility] Comment on above: Performed By: #### L 503.0106 #### [facility] [address] [place], [address] ECRCL 57.83 ml/min Normal 50-250 [facility] Comment on above: Performed By: #### L 503.0106 #### [facility] [address] [place], [address] GAP 11 Normal 5-15 [facility] Comment on above: Performed By: #### L 503.0106 #### [facility] [address] [place], [address] GFR/1.73 sq M.predicted among non-blacks MDRD (S/P/Bld) [Vol rate/Area] 70 mL/min/{1.73_m2} Normal >60 [facility] Comment on above: Result Comment: mL/m in/1.73m2 CKD-EPI Creatinine Equation (2020) Performed By: #### L 503.0106 #### [facility] [address] [place], [address] Glucose [Mass/Vol] 90 mg/dL Normal 70-99 [facility] Comment on above: Performed By: #### L 503.0106 #### [facility] [address] [place], [address] Potassium [Moles/Vol] 3.8 mmol/L Normal 3.3-5.1 [facility] Comment on above: Performed By: #### L 503.0106 #### [facility] [address] [place], [address] Sodium [Moles/Vol] 136 mmol/L Normal 133-145 [facility] Comment on above: Performed By: #### L 503.0106 #### [facility] [address] [place], [address] Urea nitrogen [Mass/Vol] 12 mg/dL Normal 4-19 [facility] Comment on above: Performed By: #### L 503.0106 #### [facility] [address] [place], [address] CBC W/Diff, Automatedon -2 TEAR DROP 1+ Normal [facility] Comment on above: Performed By: #### L 100.0100, L501.9520, L500.2500 #### [facility] [address] [place], [address] SCHISTOCYTES 1+ Normal [facility] Comment on above: Performed By: #### L 100.0100, L501.9520, L500.2500 #### [facility] [address] [place], [address] TARGET CELLS 1+ Normal [facility] Comment on above: Performed By: #### L 100.0100, L501.9520, L500.2500 #### [facility] [address] [place], [address] Anisocytosis Ql (Bld) 1+ Normal [facility] Comment on above: Performed By: #### L 100.0100, L501.9520, L500.2500 #### [facility] [address] [place], [address] MACROCYTOSIS 1+ Normal [facility] Comment on above: Performed By: #### L 100.0100, L501.9520, L500.2500 #### [facility] [address] [place], [address] POLYCHROMASIA 1+ Normal [facility] Comment on above: Performed By: #### L 100.0100, L501.9520, L500.2500 #### [facility] [address] [place], [address] Gastric Emptying Studyon Gastric Emptying Study [facility] Imaging Services [address] [place] [address] Gastric Emptying Study MR#: [id number] Acct: [id number] Name: MORENA PATTON Rep #: [id number] : 1960 F 64 From: Drew Santiago PCP: Care Physician,No Primary Status: ADM CYRIL Study: Gastric Emptying Study Date of Exam: 01/26/25 Exam# [id number] Ordering Dr: Virginie Aguillon MD PROCEDURE: GASTRIC [...] geometric mean was used to calculate a vygi-gdjsqcih-xjymt. Medications taken in the past 24 hours [...] semi solid phase gastric emptying Reading Location: [place] [address] CC: Dr. Gila Reeves DO; Dr. Virginie Aguillon MD; Dr. Lam Espinal MD; No Primary Care Physician Paperboard Box Maker: Signed Normal [facility] Iron+Iron Binding Capacityon 01-26-2025 TIBC 501 ug/dL High 250-450 [facility] Comment on above: Performed By: #### L 503.0106 #### [facility] [address] [place], [address] Thyroid Stim Hormone (TSH)on 01-26-2025 TSH 2.830 uIU/mL Normal 0.300-4.20 0 [facility] Comment on above: Performed By: #### L 503.0106 #### [facility] [address] [place], [address] Abdomen/Pelvis W IV Cont ONL Yon 01-25-2025 Abdomen/Pelvis W IV Cont ONLY [facility] Imaging Services [address] [place] [address] Abdomen/Pelvis W IV Cont ONLY MR#: [id number] Acct: [id number] Name: MORENA PATTON Rep #: [id number] : 1960 F 64 From: Javad juarez MD PCP: Care Physician,No Primary Status: REG ER Study: Abdomen/Pelvis W IV Cont ONLY Date of Exam: Exam# [id number] Ordering Dr: Gila Reeves DO PROCEDURE: ABDOMEN/PELVIS [...] No acute abnormality is seen. Reading Location: [id number] CC: Dr. Gila Reeves DO; No Primary Care Physician Paperboard Box Maker: Signed Normal [facility] CBC W/Diff, Automatedon 01-01 PLT EST ADEQUATE Normal ADEQ [facility] Comment on above: Performed By: #### L 500.4050, L501.2450, L100.0100 #### [facility] [address] [facility] [place], [address] CTA Chest W/WO Contraston CTA Chest W/WO Contrast [facility] Imaging Services [address] [place], [place] [address] CTA Chest W/WO Contrast MR#: [id number] Acct: [id number] Name: MORENA PATTON Rep #: [id number] : 1960 F 64 From: Javad juarez MD PCP: Care Physician,No Primary Status: REG ER Study: CTA Chest W/WO Contrast Date of Exam: 01/25/25 Exam# [id number] Ordering Dr: Gila Reeves DO PROCEDURE: CTA [...] No evidence of pulmonary embolism. Reading Location: [facility] CC: Dr. Gila Reeves DO; No Primary Care Physician Paperboard Box Maker: Signed Normal [facility] Chest PA and Lateralon 01-25 Chest PA and Lateral [facility] Imaging Services [address] [place], [place] [id number] Chest PA and Lateral MR#: [id number] Acct: [id number] Name: MORENA PATTON Rep #: [id number] : 1960 F 64 From: Drew Santiago PCP: Care Physician,No Primary Status: REG ER Study: Chest PA and Lateral Date of Exam: 01/25/25 Exam# [id number] Ordering Dr: Gila Reeves DO PROCEDURE: CHEST [...] interval osseous change is seen. Reading Location: [place] [address] CC: Dr. Gila Reeves DO; No Primary Care Physician Paperboard Box Maker: Signed Normal [facility] Comprehensive Metabolic Prof ilon 01-25-2025 Albumin [Mass/Vol] 4.3 g/dL Normal 3.4-4.8 [facility] Comment on above: Performed By: #### L 500.4050, L501.2450, L100.0100 #### [facility] [address] [place], [address] Albumin/Globulin [Mass ratio] 1.4 {ratio} Normal 0.9-2.4 [facility] Comment on above: Performed By: #### L 500.4050, L501.2450, L100.0100 #### [facility] [address] [place], [address] ALK PHOS 104 U/L Normal 35-104 [facility] Comment on above: Performed By: #### L 500.4050, L501.2450, L100.0100 #### [facility] [address] [place], [address] ALT [Catalytic activity/Vol] 15 U/L Normal <=34 [facility] Comment on above: Performed By: #### L 500.4050, L501.2450, L100.0100 #### [facility] [address] [place], [address] AST [Catalytic activity/Vol] 30 U/L Normal <=31 [facility] Comment on above: Result Comment: Hemo lysis present, Results??could be affected. ?? Performed By: #### L 500.4050, L501.2450, L100.0100 #### [facility] [address] [place], [address] Bilirubin [Mass/Vol] 0.24 mg/dL Normal 0.00-1.30 [facility] Comment on above: Performed By: #### L 500.4050, L501.2450, L100.0100 #### [facility] [address] [place], [address] BUN/CRE 16.0 RATIO Normal 10-20 [facility] Comment on above: Performed By: #### L 500.4050, L501.2450, L100.0100 #### [facility] [address] [place], [address] Calcium [Mass/Vol] 9.6 mg/dL Normal 7.6-11.0 [facility] Comment on above: Performed By: #### L 500.4050, L501.2450, L100.0100 #### [facility] [address] [place], [address] Chloride [Moles/Vol] 102 mmol/L Normal 98-108 [facility] Comment on above: Performed By: #### L 500.4050, L501.2450, L100.0100 #### [facility] [address] [place], [address] CO2 [Moles/Vol] 19.7 mmol/L Low 21.0-32.0 [facility] Comment on above: Performed By: #### L 500.4050, L501.2450, L100.0100 #### [facility] [address] [place], [address] Creatinine [Mass/Vol] 1.09 mg/dL Normal 0.70-1.20 [facility] Comment on above: Performed By: #### L 500.4050, L501.2450, L100.0100 #### [facility] [address] [place], [address] ECRCL 48.81 ml/min Low 50-250 [facility] Comment on above: Performed By: #### L 500.4050, L501.2450, L100.0100 #### [facility] [address] [place], [address] GAP 13 Normal 5-15 [facility] Comment on above: Performed By: #### L 500.4050, L501.2450, L100.0100 #### [facility] [address] [place], [address] GFR/1.73 sq M.predicted among non-blacks MDRD (S/P/Bld) [Vol rate/Area] 57 mL/min/{1.73_m2} Low >60 [facility] Comment on above: Result Comment: mL/m in/1.73m2 CKD-EPI Creatinine Equation (2020) Performed By: #### L 500.4050, L501.2450, L100.0100 #### [facility] [address] [place], [address] Globulin (S) [Mass/Vol] 3.1 g/dL Normal 2.2-4.2 [facility] Comment on above: Performed By: #### L 500.4050, L501.2450, L100.0100 #### [facility] [address] [place], [address] Glucose [Mass/Vol] 101 mg/dL High 70-99 [facility] Comment on above: Performed By: #### L 500.4050, L501.2450, L100.0100 #### [facility] [address] [place], [address] Potassium [Moles/Vol] 4.2 mmol/L Normal 3.3-5.1 [facility] Comment on above: Result Comment: Hemo lysis present, Results??could be affected. ?? Performed By: #### L 500.4050, L501.2450, L100.0100 #### [facility] [address] [place], [address] Sodium [Moles/Vol] 135 mmol/L Normal 133-145 [facility] Comment on above: Performed By: #### L 500.4050, L501.2450, L100.0100 #### [facility] [address] [place], [address] T PROT 7.4 g/dL Normal 5.9-8.4 [facility] Comment on above: Performed By: #### L 500.4050, L501.2450, L100.0100 #### [facility] [address] [place], [address] Urea nitrogen [Mass/Vol] 17 mg/dL Normal 4-19 [facility] Comment on above: Performed By: #### L 500.4050, L501.2450, L100.0100 #### [facility] [address] [place], [address] Emergency Department Summary on 01-25-2025 Emergency Department Summary [facility] Medical Records Department [address] [place] [address] Emergency Department Summary 01/25/25 MR#: [id number] Acct: [id number] Name: MORENA PATTON Rep #: [id number] : 1960 64 From: Gila Reeves DO PCP: Care Physician,No Primary Status:ADM CYRIL Location: MS3 PI349-4 HPI History of Present Illness Chief Complaint: [...] She came in for further evaluation with [facility] Medical History (Updated 01/26/25 @ 00:17 [...] Reaction Status Date / Time buprenorphine (From [facility]) Allergy Rash Verified 01/25/25 19:32 NSAIDS (Non-Steroidal [...] weakness Psychi (more content not included)... Normal [facility] Ferritinon 01-25-2025 Ferritin [Mass/Vol] 13 ng/mL Low 22-378 [facility] Comment on above: Performed By: #### L 503.0106 #### [facility] [address] [place], [address] H AND P Exam - Hospitaliston 01-25-2025 H&P Exam - Hospitalist [facility] Medical Records Department [address] [place] [address] H P Exam - Hospitalist 01/25/25 1855 MR#: [id number] Acct: [id number] Name: MORENA PATTON Rep #: [id number] : 1960 64 From: Virginie Aguillon MD PCP: Care Physician,No Primary Status:REG ER Location: ED HPI - General General Date of Admission: 01/25/25 Date of Service: 01/25/25 Chief Complaint: Abdominal pain, weakness HPI Narrative MORENA PATTON, is a 64-year-old female history of GERD, PTSD, PUD, hypertension, depression presented to [facility] ED 01/25/2025 with left upper quadrant pain, [...] fevers., No other new or acute complaints [facility] Medical History (Updated 01/25/25 @ 19:41 by [...] you par (more content not included)... Normal [facility] L503.7505on 01-25-2025 Natriuretic peptide B (Bld) [Mass/Vol] 95 pg/mL Normal <=900 [facility] Comment on above: Result Comment: Hear t Failure Unlikely: < 300 pg/mL Heart Failure Likely < 50 Years: > 450 pg/mL 50-75 Years: > 900 pg/mL >75 Years: > 1800 pg/mL Performed By: #### L 500.4050, L501.2450, L100.0100 #### [facility] [address] [place], [address] Lipaseon 01-25-2025 Lipase [Catalytic activity/Vol] 44 U/L Normal 13-75 [facility] Comment on above: Result Comment: Quinten gruber note: LIPASE revised reference range effective 22. New Lipase methodology. Expected to produce lower values than the previous assay method. NEW Reference Range: 13 - 75 U/L Performed By: #### L 500.4050, L501.2450, L100.0100 #### [facility] [address] [place], [address] Retic Panelon 01-25-2025 IM RET FRACTION 39.90 High 3.00-15.90 [facility] Comment on above: Performed By: #### L 503.0106 #### [facility] [address] [place], [address] RET-HE 24.7 pg Low 30-35 [facility] Comment on above: Performed By: #### L 503.0106 #### [facility] [address] [place], [address] Retic Count 1.43 Normal 0.5-1.5 [facility] Comment on above: Performed By: #### L 503.0106 #### [facility] [address] [place], [address] Stool Occult Blood iFOBon STOB Negative Normal [facility] Comment on above: Performed By: #### M 100.7900 #### [facility] [address] [place], [address] Urinalysis, Completeon 01-25 EPI,SQUAMOUS 0-5 SEEN Normal 5-10 [facility] Comment on above: Order Comment: ADD O N Performed By: #### L 503.0106 #### [facility] [address] [place], [address] RBC 0-5 SEEN Normal 0-5 [facility] Comment on above: Order Comment: ADD O N Performed By: #### L 503.0106 #### [facility] [address] [place], [place], [address] WBC 0-5 SEEN Normal 0-5 [facility] Comment on above: Order Comment: ADD O N Performed By: #### L 503.0106 #### [facility] [address] [place], [address] BACTERIA 0 SEEN Normal None Seen [facility] Comment on above: Order Comment: ADD O N Performed By: #### L 503.0106 #### [facility] [address] [place], [place], [address] Mucus Ql (Urine sed) 0 SEEN Normal [facility] Comment on above: Order Comment: ADD O N Performed By: #### L 503.0106 #### [facility] [address] [place], [place], [address] MR/BMS.BPon 12-15-2024 MR/BMS.[address], [address] [place] [address] OFFICE VISIT Date of Service: 12/15/24 MR#: [id number] Acct: [id number] Name: MORENA PATTON Rep #: [id number] : 1960 Provider: KATIE dewey Age/Sex: 64/F Location: [facility] Status: Signed Intake Vital Signs 10/10/24 08:10 [...] Appetite is (more content not included)... Normal [facility] MR/BMS.BPon 10-10-2024 MR/BMS.BP [address], [address] [place] [address] OFFICE VISIT Date of Service: 10/10/24 MR#: [id number] Acct: [id number] Name: MORENA PATTON Rep #: [id number] : 1960 Provider: KATIE dewey Age/Sex: 64/F Location: [facility] Status: Signed Intake Vital Signs 08/22/24 07:39 [...] 7wfu Accompanied by: Self Allergies buprenorphine (From [employer]) Allergy (Verified 10/10/24 08:39) Rash NSAIDS (Non-Steroidal [...] 31-40 years (more content not included)... Normal [facility] Culture, Blood (WB)on 2024 CUB Blood cultures x2, f rom two different sites No growth in 5 days. Normal [facility] Comment on above: Performed By: #### L 500.4050, L501.2450, L100.0100 #### [facility] [address] [facility] [place], [address] 12 Lead EKG performed by [facility] on 08-30-2024 12 Lead EKG performed by [facility] [address] [facility] [place] [address] 12 Lead EKG performed by [facility] 08/30/24 0935 MR#: [id number] Acct: [id number] Name: MORENA PATTON Rep #: [id number] : 1960 64 From: Ta Montoya MD Attending Dr: Dr. Ta Montoya MD Status: DEP A TOYA Ordering Dr: Ta Montoya MD Date: 08/30/24 Location: [facility] Sex: F AA Admitted: [facility]/12 Lead EKG performed by [facility] ECG Report Interpretation Sinus Rhythm -Left atrial enlargement. BORDERLINEElectronically signed on 08/30/2024 at 15:15 by Ta Montoya [employer] Version 8610 08/30/24 2998 Date Ta Montoya MD CC: Dr. Stoney Hudson MD Date Dictated: 08/30/24934 Date Transcribed: 08/30/24934 Paperboard Box Maker: [place] Signed Normal [facility] Cardiology Visit Reporton Cardiology Visit Report [facility] [address] [place] [address] OFFICE VISIT Date of Service: 08/30/24 MR#: [id number] Acct: [id number] Name: MORENA PATTON Rep #: [id number] : 1960 Provider: Dr. Ta Montoya MD Age/Sex: 64/F Location: [facility] Status: Signed HPI HPI History of [...] Monitor Intake Visit Reasons: Chest Pain (Tristan) Decoration Checker Required: No Accompanied by: Self Is patient [...] at home: (more content not included)... Normal [facility] Urine Cultureon 08-28-2024 [facility] Mixed Gram Positive Organisms [place] Count 11,000-25,000 MIXC Mixed contaminants. Submit a new specimen if indicated. Normal [facility] Comment on above: Performed By: #### L 500.4050, L501.2450, L100.0100 #### [facility] [address] [facility] [place], [address] 12 Lead EKGon 08-26-2024 12 Lead EKG [facility] Cardiovascular Services [address] [place] [address] 12 Lead EKG 08/26/24 1710 MR#: [id number] Acct: [id number] Name: ALEKMORENA Rep #: [id number] : 1960 64 From: London Dupont MD [...] Borderline ECG Confirmed by TERRANCE WOO, JULIO ([id number]), website/blog editor ENZO STANFORD ([id number]) on 08/29/2024 6:13:58 AM Referred By: Confirmed By: JULIO DUPONT MD 08/29/24612 Date London Dupont MD CC: Dr. Stoney Hudson MD; Dr. Duglas Ariza DO Signed Normal [facility] CBC W/Diff, Automatedon 08-03 Absolute Lymph 1.30 X10 3/uL Normal 0.83-4.51 [facility] Comment on above: Performed By: #### L 500.4050, L501.2450, L100.0100 #### [facility] [address] [place], [address] Absolute Neut 1.8 X10 3/uL Low 2.0-7.7 [facility] Comment on above: Performed By: #### L 500.4050, L501.2450, L100.0100 #### [facility] [address] [place], [address] Basophils/100 WBC (Bld) 0.6 % Normal 0-1 [facility] Comment on above: Performed By: #### L 500.4050, L501.2450, L100.0100 #### [facility] [address] [place], [address] Eosinophils/100 WBC (Bld) 0.0 % Normal 0-5 [facility] Comment on above: Performed By: #### L 500.4050, L501.2450, L100.0100 #### [facility] [address] [place], [address] Erythrocyte distribution width (RBC) [Ratio] 16.7 % High 11.6-14.6 [facility] Comment on above: Performed By: #### L 500.4050, L501.2450, L100.0100 #### [facility] [address] [place], [address] Hematocrit (Bld) [Volume fraction] 35.4 % Low 37-47 [facility] Comment on above: Performed By: #### L 500.4050, L501.2450, L100.0100 #### [facility] [address] [place], [address] Hemoglobin (Bld) [Mass/Vol] 11.4 g/dL Low 12.0-15.0 [facility] Comment on above: Performed By: #### L 500.4050, L501.2450, L100.0100 #### [facility] [address] [place], [address] IG% 0.300 Normal 0.0-0.9 [facility] Comment on above: Result Comment: IG% - Immature Granulocytes (promyelocytes, myelocytes and metamyelocytes) > 1% indicates that a LEFT SHIFT is Present. Performed By: #### L 500.4050, L501.2450, L100.0100 #### [facility] [address] [place], [address] Lymphocytes/100 WBC (Bld) 37.7 % Normal 19-41 [facility] Comment on above: Performed By: #### L 500.4050, L501.2450, L100.0100 #### [facility] [address] [place], [address] MCH (RBC) [Entitic mass] 23.9 pg Low 27.0-32.0 [facility] Comment on above: Performed By: #### L 500.4050, L501.2450, L100.0100 #### [facility] [address] [place], [address] MCHC (RBC) [Mass/Vol] 32.2 g/dL Normal 32-36 [facility] Comment on above: Performed By: #### L 500.4050, L501.2450, L100.0100 #### [facility] [address] [place], [address] MCV (RBC) [Entitic vol] 74.2 fL Low 81-99 [facility] Comment on above: Performed By: #### L 500.4050, L501.2450, L100.0100 #### [facility] [address] [place], [address] Monocytes/100 WBC (Bld) 10.1 % High 0-10 [facility] Comment on above: Performed By: #### L 500.4050, L501.2450, L100.0100 #### [facility] [address] [place], [address] Neutrophils/100 WBC (Bld) 51.3 % Normal 47-70 [facility] Comment on above: Performed By: #### L 500.4050, L501.2450, L100.0100 #### [facility] [address] [place], [address] Nucleated RBC (Bld) [#/Vol] 0 10*3/uL Normal 0-5 [facility] Comment on above: Performed By: #### L 500.4050, L501.2450, L100.0100 #### [facility] [address] [place], [address] Platelet mean volume (Bld) [Entitic vol] 10.0 fL Normal 6.2-12.0 [facility] Comment on above: Performed By: #### L 500.4050, L501.2450, L100.0100 #### [facility] [address] [place], [address] Platelets (Bld) [#/Vol] 253 10*3/uL Normal 150-450 [facility] Comment on above: Performed By: #### L 500.4050, L501.2450, L100.0100 #### [facility] [address] [place], [address] RBC (Bld) [#/Vol] 4.77 10*6/uL Normal 4.2-5.4 [facility] Comment on above: Performed By: #### L 500.4050, L501.2450, L100.0100 #### [facility] [address] [place], [address] RDW SD 44.5 fl High 35.1-43.9 [facility] Comment on above: Performed By: #### L 500.4050, L501.2450, L100.0100 #### [facility] [address] [place], [address] WBC (Bld) [#/Vol] 3.5 10*3/uL Low 4.4-11.0 [facility] Comment on above: Performed By: #### L 500.4050, L501.2450, L100.0100 #### [facility] [address] [place], [address] Chest 1 View (Portable)on Chest 1 View (Portable) [facility] Imaging Services [address] [place] [address] Chest 1 View (Portable) MR#: [id number] Acct: [id number] Name: MORENA PATTON Rep #: [id number] : 1960 F 64 From: Ronnell jackman MD PCP: Dr. Stoney Hudson MD Status: REG ER Study: Chest 1 View (Portable) Date of Exam: 08/26/24 Exam# [id number] Ordering Dr: Duglas Ariza DO [id number] INDICATION: SOB EXAMINATION/TECHNIQUE: X-RAY - XR Chest 1 View COMPARISON: 04/01/2024. FINDINGS: The lungs are clear. Tortuous and calcified thoracic aorta. The heart is not enlarged. No pleural effusion or pneumothorax. No acute osseous abnormalities. RAD/Chest 1 View (Portable) IMPRESSION: No acute radiographic abnormalities. Electronically Signed: Ronnell Dan MD at 20:10 EST , CC: Dr. Stoney Hudson MD; Dr. Duglas Ariza DO Paperboard Box Maker: Signed Normal [facility] Comprehensive Metabolic Prof ilon 08-26-2024 Albumin [Mass/Vol] 3.4 g/dL Normal 3.2-5.0 [facility] Comment on above: Performed By: #### L 500.4050, L501.2450, L100.0100 #### [facility] [address] [place], [address] Albumin/Globulin [Mass ratio] 0.8 {ratio} Low 0.9-2.4 [facility] Comment on above: Performed By: #### L 500.4050, L501.2450, L100.0100 #### [facility] [address] [place], [address] ALK P 100 U/L Normal 45-117 [facility] Comment on above: Performed By: #### L 500.4050, L501.2450, L100.0100 #### [facility] [address] [place], [address] ALT [Catalytic activity/Vol] 20 U/L Normal 13-56 [facility] Comment on above: Performed By: #### L 500.4050, L501.2450, L100.0100 #### [facility] [address] [place], [address] AST [Catalytic activity/Vol] 37 U/L Normal 15-37 [facility] Comment on above: Performed By: #### L 500.4050, L501.2450, L100.0100 #### [facility] [address] [place], [address] Bilirubin [Mass/Vol] 0.30 mg/dL Normal 0.20-1.00 [facility] Comment on above: Result Comment: For patients on eltrombopag therapy, use of Dimension [place] TBIL is not recommended. Performed By: #### L 500.4050, L501.2450, L100.0100 #### [facility] [address] [place], [address] BUN/CRE 12.5 RATIO Normal 10-20 [facility] Comment on above: Performed By: #### L 500.4050, L501.2450, L100.0100 #### [facility] [address] [place], [address] CA,Total 9.3 mg/dL Normal 8.5-10.1 [facility] Comment on above: Performed By: #### L 500.4050, L501.2450, L100.0100 #### [facility] [address] [place], [address] Chloride [Moles/Vol] 102 mmol/L Normal 98-107 [facility] Comment on above: Performed By: #### L 500.4050, L501.2450, L100.0100 #### [facility] [address] [place], [address] CO2 [Moles/Vol] 23.0 mmol/L Normal 21.0-32.0 [facility] Comment on above: Performed By: #### L 500.4050, L501.2450, L100.0100 #### [facility] [address] [place], [address] Creatinine [Mass/Vol] 1.28 mg/dL High 0.55-1.02 [facility] Comment on above: Result Comment: The validity of the calculated GFR GFRAA in patients over 70 years has not been determined. Clinical correlation is essential. Performed By: #### L 500.4050, L501.2450, L100.0100 #### [facility] [address] [place], [address] EST GFR - AA 54 mL/min Low >60 [facility] Comment on above: Result Comment: Afri can [place] GFR Calc Performed By: #### L 500.4050, L501.2450, L100.0100 #### [facility] [address] [place], [address] GAP 9 Normal 5-15 [facility] Comment on above: Performed By: #### L 500.4050, L501.2450, L100.0100 #### [facility] [address] [place], [address] GFR/1.73 sq M.predicted among non-blacks MDRD (S/P/Bld) [Vol rate/Area] 45 mL/min/{1.73_m2} Low >60 [facility] Comment on above: Result Comment: Non- GFR Calc Performed By: #### L 500.4050, L501.2450, L100.0100 #### [facility] [address] [place], [address] Globulin (S) [Mass/Vol] 4.0 g/dL Normal 2.2-4.2 [facility] Comment on above: Performed By: #### L 500.4050, L501.2450, L100.0100 #### [facility] [address] [place], [address] Glucose [Mass/Vol] 103 mg/dL Normal 74-106 [facility] Comment on above: Result Comment: Fast ing Glucose result from 100 to 125 mg/dL suggests IMPAIRED HOMEOSTASIS per A.D.A. criteria. Performed By: #### L 500.4050, L501.2450, L100.0100 #### [facility] [address] [place], [address] Potassium [Moles/Vol] 3.8 mmol/L Normal 3.5-5.1 [facility] Comment on above: Performed By: #### L 500.4050, L501.2450, L100.0100 #### [facility] [address] [place], [address] Sodium [Moles/Vol] 134 mmol/L Low 136-145 [facility] Comment on above: Performed By: #### L 500.4050, L501.2450, L100.0100 #### [facility] [address] [place], [address] T PROT 7.4 g/dL Normal 6.4-8.2 [facility] Comment on above: Performed By: #### L 500.4050, L501.2450, L100.0100 #### [facility] [address] [place], [address] Urea nitrogen [Mass/Vol] 16 mg/dL Normal 7-18 [facility] Comment on above: Performed By: #### L 500.4050, L501.2450, L100.0100 #### [facility] [address] [place], [address] Emergency Department Summary on 08-26-2024 Emergency Department Summary [facility] Medical Records Department [address] [place] [address] Emergency Department Summary 08/26/24 MR#: [id number] Acct: [id number] Name: MORENA PATTON Rep #: [id number] : 1960 64 From: Duglas Ariza DO PCP: Dr. Stoney Hudson MD Status:REG ER Location: ED HPI History of Present Illness Chief Complaint: [facility] Medical History (Updated 08/26/24 @ 19:53 by [...] No murmur (more content not included)... Normal [facility] Lactic Acidon 08-26-2024 Lactate [Moles/Vol] 1.3 mmol/L Normal 0.4-1.9 [facility] Comment on above: Order Comment: Y Performed By: #### L 500.4050, L501.2450, L100.0100 #### [facility] [address] [place], [address] M100.678on 08-26-2024 SARS-CoV-2 (COVID-19) Ab IA Ql FLUABV+SARS-CoV-2+RSV Pnl Resp BISI+probe Copy of report sent to Infection Control Printer [id number] 08/26/24 1810 PRATIK. FLUABV+SARS-CoV-2+RSV Pnl Resp BISI+probe RESULTS CALLED TO A. SELF 08/26/24 1810 Sunita Magdaleno. REPORT READ BACK BY . SAME SARS-CoV-2 (COVID 19) Negative INFLUENZA A A Positive A INFLUENZA B Negative RSV PCR Negative INFLUENZAE A Normal [facility] Comment on above: Performed By: #### L 500.4050, L501.2450, L100.0100 #### [facility] [address] [place], [address] Partial Thromboplast Timeon 08-26-2024 aPTT Coag (Bld) [Time] 27.5 s Normal 24.1-36.2 [facility] Comment on above: Performed By: #### L 500.4050, L501.2450, L100.0100 #### [facility] [address] [place], [address] Prothrombin Time w/INRon INR Coag (PPP) [Relative time] 0.9 {INR} Normal [facility] Comment on above: Performed By: #### L 500.4050, L501.2450, L100.0100 #### [facility] [address] [place], [address] PT Coag (PPP) [Time] 11.8 s Normal 11.7-14.9 [facility] Comment on above: Performed By: #### L 500.4050, L501.2450, L100.0100 #### [facility] [address] [place], [address] Urinalysis, Completeon 08-26 BACTERIA RARE Normal None Seen [facility] Comment on above: Order Comment: COLLE CTOR TO SPECIFY Performed By: #### L 500.4050, L501.2450, L100.0100 #### [facility] [address] [place], [address] EPI,SQUAMOUS 0-5 SEEN Normal 5-10 [facility] Comment on above: Order Comment: COLLE CTOR TO SPECIFY Performed By: #### L 500.4050, L501.2450, L100.0100 #### [facility] [address] [place], [address] RBC 0-5 SEEN Normal 0-5 [facility] Comment on above: Order Comment: COLLE CTOR TO SPECIFY Performed By: #### L 500.4050, L501.2450, L100.0100 #### [facility] [address] [place], [address] Mucus Ql (Urine sed) 0 SEEN Normal [facility] Comment on above: Order Comment: COLLE CTOR TO SPECIFY Performed By: #### L 500.4050, L501.2450, L100.0100 #### [facility] [address] [place], [address] WBC 0 SEEN Normal 0-5 [facility] Comment on above: Order Comment: DANIEL CTOR TO SPECIFY Performed By: #### L 500.4050, L501.2450, L100.0100 #### [facility] [address] [place], [address] MR/BMS.BPon 08-22-2024 MR/BMS.BP [address], [address] [place] [address] OFFICE VISIT Date of Service: 08/22/24 MR#: [id number] Acct: [id number] Name: MORENA PATTON Rep #: [id number] : 1960 Provider: KATIE dewey Age/Sex: 64/F Location[place] [facility] Status: Signed Intake Vital Signs 04/11/24 14:35 [...] making careless (more content not included)... Normal [facility] Ferritinon 07-20-2024 Ferritin [Mass/Vol] 8 ng/mL Normal 8-252 [facility] Comment on above: Order Comment: ADD O N Performed By: #### L 503.0106 #### [facility] [address] [place], [address] Folates, (Folic Acid)on 07-02 FOLATES 8.20 ng/mL Normal 3.1-55.4 [facility] Comment on above: Order Comment: N Performed By: #### L 500.4050, L501.2450, L100.0100 #### [facility] [address] [place], [address] Iron+Iron Binding Capacityon 07-20-2024 Iron [Mass/Vol] 19 ug/dL Low 50-170 [facility] Comment on above: Order Comment: ADD O N Performed By: #### L 503.0106 #### [facility] [address] [place], [address] IRON SATURATION 4.7 Low 15.0-55.0 [facility] Comment on above: Order Comment: ADD O N Performed By: #### L 503.0106 #### [facility] [address] [place], [address] TIBC 402 ug/dL Normal 250-450 [facility] Comment on above: Order Comment: ADD O N Performed By: #### L 503.0106 #### [facility] [address] [place], [address] Retic Panelon 07-20-2024 IM RET FRACTION 19.60 High 3.00-15.90 [facility] Comment on above: Performed By: #### L 503.0106 #### [facility] [address] [place], [address] RET-HE 23.5 pg Low 30-35 [facility] Comment on above: Performed By: #### L 503.0106 #### [facility] [address] [place], [address] Retic Count 1.38 Normal 0.5-1.5 [facility] Comment on above: Performed By: #### L 503.0106 #### [facility] [address] [place], [address] Vitamin B12on 07-20-2024 Cobalamin (Vitamin B12) [Mass/Vol] 671 pg/mL Normal 211-911 [facility] Comment on above: Performed By: #### L 503.0106 #### [facility] [address] [place], [address] CBC W/Diff, Automatedon 07-02 Absolute Lymph 1.98 X10 3/uL Normal 0.83-4.51 [facility] Comment on above: Performed By: #### L 500.4050, L501.2450, L100.0100 #### [facility] [address] [place], [address] Absolute Neut 1.1 X10 3/uL Low 2.0-7.7 [facility] Comment on above: Performed By: #### L 500.4050, L501.2450, L100.0100 #### [facility] [address] [place], [address] Basophils/100 WBC (Bld) 0.9 % Normal 0-1 [facility] Comment on above: Performed By: #### L 500.4050, L501.2450, L100.0100 #### [facility] [address] [place], [address] Eosinophils/100 WBC (Bld) 2.3 % Normal 0-5 [facility] Comment on above: Performed By: #### L 500.4050, L501.2450, L100.0100 #### [facility] [address] [place], [address] Erythrocyte distribution width (RBC) [Ratio] 15.9 % High 11.6-14.6 [facility] Comment on above: Performed By: #### L 500.4050, L501.2450, L100.0100 #### [facility] [address] [place], [address] Hematocrit (Bld) [Volume fraction] 30.8 % Low 37-47 [facility] Comment on above: Performed By: #### L 500.4050, L501.2450, L100.0100 #### [facility] [address] [place], [address] Hemoglobin (Bld) [Mass/Vol] 9.9 g/dL Low 12.0-15.0 [facility] Comment on above: Performed By: #### L 500.4050, L501.2450, L100.0100 #### [facility] [address] [place], [address] IG% 0.000 Normal 0.0-0.9 [facility] Comment on above: Result Comment: IG% - Immature Granulocytes (promyelocytes, myelocytes and metamyelocytes) > 1% indicates that a LEFT SHIFT is Present. Performed By: #### L 500.4050, L501.2450, L100.0100 #### [facility] [address] [place], [address] Lymphocytes/100 WBC (Bld) 57.4 % High 19-41 [facility] Comment on above: Performed By: #### L 500.4050, L501.2450, L100.0100 #### [facility] [address] [place], [address] MCH (RBC) [Entitic mass] 26.5 pg Low 27.0-32.0 [facility] Comment on above: Performed By: #### L 500.4050, L501.2450, L100.0100 #### [facility] [address] [place], [address] MCHC (RBC) [Mass/Vol] 32.1 g/dL Normal 32-36 [facility] Comment on above: Performed By: #### L 500.4050, L501.2450, L100.0100 #### [facility] [address] [place], [address] MCV (RBC) [Entitic vol] 82.4 fL Normal 81-99 [facility] Comment on above: Performed By: #### L 500.4050, L501.2450, L100.0100 #### [facility] [address] [place], [address] Monocytes/100 WBC (Bld) 7.2 % Normal 0-10 [facility] Comment on above: Performed By: #### L 500.4050, L501.2450, L100.0100 #### [facility] [address] [place], [address] Neutrophils/100 WBC (Bld) 32.2 % Low 47-70 [facility] Comment on above: Performed By: #### L 500.4050, L501.2450, L100.0100 #### [facility] [address] [place], [address] Nucleated RBC (Bld) [#/Vol] 0 10*3/uL Normal 0-5 [facility] Comment on above: Performed By: #### L 500.4050, L501.2450, L100.0100 #### [facility] [address] [place], [address] Platelet mean volume (Bld) [Entitic vol] 9.0 fL Normal 6.2-12.0 [facility] Comment on above: Performed By: #### L 500.4050, L501.2450, L100.0100 #### [facility] [address] [place], [address] Platelets (Bld) [#/Vol] 325 10*3/uL Normal 150-450 [facility] Comment on above: Performed By: #### L 500.4050, L501.2450, L100.0100 #### [facility] [address] [place], [address] RBC (Bld) [#/Vol] 3.74 10*6/uL Low 4.2-5.4 [facility] Comment on above: Performed By: #### L 500.4050, L501.2450, L100.0100 #### [facility] [address] [place], [address] RDW SD 47.5 fl High 35.1-43.9 [facility] Comment on above: Performed By: #### L 500.4050, L501.2450, L100.0100 #### [facility] [address] [place], [address] WBC (Bld) [#/Vol] 3.5 10*3/uL Low 4.4-11.0 [facility] Comment on above: Performed By: #### L 500.4050, L501.2450, L100.0100 #### [facility] [address] [place], [address] [facility] 07-19-2024 Albumin [Mass/Vol] 3.2 g/dL Normal 3.2-5.0 [facility] Comment on above: Performed By: #### L 500.4050, L501.2450, L100.0100 #### [facility] [address] [place], [address] Albumin/Globulin [Mass ratio] 0.9 {ratio} Normal 0.9-2.4 [facility] Comment on above: Performed By: #### L 500.4050, L501.2450, L100.0100 #### [facility] [address] [place], [address] ALK P 95 U/L Normal 45-117 [facility] Comment on above: Performed By: #### L 500.4050, L501.2450, L100.0100 #### [facility] [address] [place], [address] ALT [Catalytic activity/Vol] 20 U/L Normal 13-56 [facility] Comment on above: Performed By: #### L 500.4050, L501.2450, L100.0100 #### [facility] [address] [place], [address] AST [Catalytic activity/Vol] 21 U/L Normal 15-37 [facility] Comment on above: Performed By: #### L 500.4050, L501.2450, L100.0100 #### [facility] [address] [place], [address] Bilirubin [Mass/Vol] 0.30 mg/dL Normal 0.20-1.00 [facility] Comment on above: Result Comment: For patients on eltrombopag therapy, use of Dimension [place] TBIL is not recommended. Performed By: #### L 500.4050, L501.2450, L100.0100 #### [facility] [address] [place], [address] BUN/CRE 10.8 RATIO Normal 10-20 [facility] Comment on above: Performed By: #### L 500.4050, L501.2450, L100.0100 #### [facility] [address] [place], [address] CA,Total 9.0 mg/dL Normal 8.5-10.1 [facility] Comment on above: Performed By: #### L 500.4050, L501.2450, L100.0100 #### [facility] [address] [place], [address] Chloride [Moles/Vol] 110 mmol/L High 98-107 [facility] Comment on above: Performed By: #### L 500.4050, L501.2450, L100.0100 #### [facility] [address] [place], [address] CO2 [Moles/Vol] 25.0 mmol/L Normal 21.0-32.0 [facility] Comment on above: Performed By: #### L 500.4050, L501.2450, L100.0100 #### [facility] [address] [place], [address] Creatinine [Mass/Vol] 0.93 mg/dL Normal 0.55-1.02 [facility] Comment on above: Result Comment: The validity of the calculated GFR GFRAA in patients over 70 years has not been determined. Clinical correlation is essential. Performed By: #### L 500.4050, L501.2450, L100.0100 #### [facility] [address] [place], [address] EST GFR - AA 78 mL/min Normal >60 [facility] Comment on above: Result Comment: Afri can [place] GFR Calc Performed By: #### L 500.4050, L501.2450, L100.0100 #### [facility] [address] [place], [address] GAP 3 Low 5-15 [facility] Comment on above: Performed By: #### L 500.4050, L501.2450, L100.0100 #### [facility] [address] [place], [address] GFR/1.73 sq M.predicted among non-blacks MDRD (S/P/Bld) [Vol rate/Area] 65 mL/min/{1.73_m2} Normal >60 [facility] Comment on above: Result Comment: Non- GFR Calc Performed By: #### L 500.4050, L501.2450, L100.0100 #### [facility] [address] [place], [address] Globulin (S) [Mass/Vol] 3.4 g/dL Normal 2.2-4.2 [facility] Comment on above: Performed By: #### L 500.4050, L501.2450, L100.0100 #### [facility] [address] [place], [address] Glucose [Mass/Vol] 100 mg/dL Normal 74-106 [facility] Comment on above: Result Comment: Fast ing Glucose result from 100 to 125 mg/dL suggests IMPAIRED HOMEOSTASIS per A.D.A. criteria. Performed By: #### L 500.4050, L501.2450, L100.0100 #### [facility] [address] [place], [address] Potassium [Moles/Vol] 4.0 mmol/L Normal 3.5-5.1 [facility] Comment on above: Performed By: #### L 500.4050, L501.2450, L100.0100 #### [facility] [address] [place], [address] Sodium [Moles/Vol] 138 mmol/L Normal 136-145 [facility] Comment on above: Performed By: #### L 500.4050, L501.2450, L100.0100 #### [facility] [address] [place], [address] T PROT 6.6 g/dL Normal 6.4-8.2 [facility] Comment on above: Performed By: #### L 500.4050, L501.2450, L100.0100 #### [facility] [address] [place], [address] Urea nitrogen [Mass/Vol] 10 mg/dL Normal 7-18 [facility] Comment on above: Performed By: #### L 500.4050, L501.2450, L100.0100 #### [facility] [address] [place], [address] Lipid Profileon 07-19-2024 Cholesterol [Mass/Vol] 210 mg/dL High 200 [facility] Comment on above: Result Comment: <200 mg/dL Desirable 200-240 mg/dL Borderline >240 mg/dL High Risk Performed By: #### L 500.4050, L501.2450, L100.0100 #### [facility] [address] [place], [address] Cholesterol in HDL [Mass/Vol] 114 mg/dL Normal [facility] Comment on above: Result Comment: The drugs N-Acetylcysteine and Metamizole may falsely depress this assay. Reference Range HDL <40 mg/dL Low HDL Cholesterol HDL >or= 60 mg/dL High HDL Cholesterol Performed By: #### L 500.4050, L501.2450, L100.0100 #### [facility] [address] [place], [address] Cholesterol in LDL [Mass/Vol] 71 mg/dL Normal 0-130 [facility] Comment on above: Performed By: #### L 500.4050, L501.2450, L100.0100 #### [facility] [address] [place], [address] Cholesterol in VLDL [Mass/Vol] 25 mg/dL Normal 5-40 [facility] Comment on above: Performed By: #### L 500.4050, L501.2450, L100.0100 #### [facility] [address] [place], [address] Triglyceride [Mass/Vol] 124 mg/dL Normal [facility] Comment on above: Result Comment: The drugs N-Acetylcysteine and Metamizole may falsely depress this assay. Serum Triglycerides Reference Interval Normal <150 mg/dL Borderline high 150 - 199 mg/dL High 200 - 499 mg/dL Very High > or = 500 mg/dL Performed By: #### L 500.4050, L501.2450, L100.0100 #### [facility] [address] [place], [address] Thyroid Stim Hormone (TSH)on 07-19-2024 TSH 1.170 uIU/mL Normal 0.358-3.74 0 [facility] Comment on above: Performed By: #### L 500.4050, L501.2450, L100.0100 #### [facility] [place], [address] MRA HEAD W/O CONTRASTon -0 MRA HEAD W/O CONTRAST ORIGINAL EXAMINATION: MRA OF THE HEAD WITHOUT CONTRAST 06/08/2024 9:50 am TECHNIQUE: MRA of the head was performed utilizing [id number] imaging with MIP images. No intravenous contrast [...] 10:06:50 AM Ordering Provider: BUNNY YO [facility] MRA NECK W/O CONTRASTon MRA [...] 10:07:33 AM Ordering Provider: BUNNY YO [facility] MRI BRAIN W/ + W/O [...] 9:05:45 AM Ordering Provider: BUNNY YO Normal [facility] Telephone Encounteron 2023 [employer] Authentication Interface Message Text Called patient, 3 identifiers obtained. Patient was unable to talk at this time. Instructed patient to call Employee Benefit Plans at [phone]. Asked patient to reference #[phone] when calling back to our office. Ok to relay message below from Anamaria Guerrero RN. Normal [employer] Telephone Encounteron 2023 [employer] Authentication Interface Message Text Unable to leave a message, voicemail is full. If patient calls back please ask the need for syringes, please encourage patient to keep 02/24/24 appt. Thank you. Normal [employer] Telephone Encounteron 2023 [employer] Authentication Interface Message Text Patient was identified [...] (Arrive by 12:50 PM) Randall Hodgson MD [facility] Normal [facility] Telephone Encounteron 2023 [employer] Authentication Interface Message Text OARRS reviewed. This is the last prescription that I will refill on behalf of this patietn Normal [facility] CBC W Auto Differential pane l (Bld)on 12-01-2023 Basophils (Bld) [#/Vol] 10*3/uL Normal <0.11 [facility] Comment on above: Order Comment: Speci men Type: BLOOD SPECIMENOrdering Facility: [facility] Address: [address] [place] [address] Performed By: #### 5 7021-8 ####[facility] LABIA [id number] [place] [address] [place] Basophils/100 WBC (Bld) 0.4 % Normal [facility] Comment on above: Order Comment: Speci men Type: BLOOD SPECIMENOrdering Facility: [facility] Address: [address] [place] [address] Performed By: #### 5 7021-8 ####[facility] LABCLIA [id number] [place] [address] [place] Differential cell count method Nom (Bld) Auto Normal [facility] Comment on above: Order Comment: Speci men Type: BLOOD SPECIMENOrdering Facility: [facility] Address: [address] [place] [address] Performed By: #### 5 7021-8 ####[facility] LABCLIA [id number] [place] [address] [place] Eosinophils (Bld) [#/Vol] 0.07 10*3/uL Normal <0.46 [facility] Comment on above: Order Comment: Speci men Type: BLOOD SPECIMENOrdering Facility: [facility] Address: [address] [place] [address] Performed By: #### 5 7021-8 ####[facility] LABCLIA [id number] [place] [address] [place] Eosinophils/100 WBC (Bld) 1.3 % Normal [facility] Comment on above: Order Comment: Speci men Type: BLOOD SPECIMENOrdering Facility: [facility] Address: [address] [place] [address] Performed By: #### 5 7021-8 ####[facility] LABCLIA [id number] [place] [address] [place] Erythrocyte distribution width (RBC) [Ratio] 18.6 % High 11.5-15.0 [facility] Comment on above: Order Comment: Speci men Type: BLOOD SPECIMENOrdering Facility: [facility] Address: [address] [place] [address] Performed By: #### 5 7021-8 ####[facility] LABCLIA [id number] [place] [address] [place] Hematocrit (Bld) [Volume fraction] 35.9 % Low 36.0-46.0 [facility] Comment on above: Order Comment: Speci men Type: BLOOD SPECIMENOrdering Facility: [facility] Address: [address] [place] [address] Performed By: #### 5 7021-8 ####[facility] LABCLIA [id number] [place] [address] [place] Hemoglobin (Bld) [Mass/Vol] 11.4 g/dL Low 11.5-15.5 [facility] Comment on above: Order Comment: Speci men Type: BLOOD SPECIMENOrdering Facility: [facility] Address: [address] [place] [address] Performed By: #### 5 7021-8 ####[facility] LABCLIA [id number] [place] [address] [place] Immature granulocytes (Bld) [#/Vol] 10*3/uL Normal <0.10 [facility] Comment on above: Order Comment: Speci men Type: BLOOD SPECIMENOrdering Facility: [facility] Address: [address] [place] [address] Performed By: #### 5 7021-8 ####[facility] LABCLIA [id number] [place] [address] [place] Immature granulocytes/100 WBC (Bld) 0.2 % Normal [facility] Comment on above: Order Comment: Speci men Type: BLOOD SPECIMENOrdering Facility: [facility] Address: [address] [place] [address] Performed By: #### 5 7021-8 ####[facility] LABCLIA [id number] [place] [address] [place] Lymphocytes (Bld) [#/Vol] 2.50 10*3/uL Normal 1.00-4.00 [facility] Comment on above: Order Comment: Speci men Type: BLOOD SPECIMENOrdering Facility: [facility] Address: [address] [place] [address] Performed By: #### 5 7021-8 ####[facility] LABCLIA [id number] [place] [address] [place] Lymphocytes/100 WBC (Bld) 47.8 % Normal [facility] Comment on above: Order Comment: Speci men Type: BLOOD SPECIMENOrdering Facility: [facility] Address: [address] [place] [address] Performed By: #### 5 7021-8 ####[facility] LABCLIA [id number] [place] [address] [place] MCH (RBC) [Entitic mass] 23.4 pg Low 26.0-34.0 [facility] Comment on above: Order Comment: Speci men Type: BLOOD SPECIMENOrdering Facility: [facility] Address: [address] [place] [address] Performed By: #### 5 7021-8 ####[facility]IA [id number] [place] [address] [place] MCHC (RBC) [Mass/Vol] 31.8 g/dL Normal 30.5-36.0 [facility] Comment on above: Order Comment: Speci men Type: BLOOD SPECIMENOrdering Facility: [facility] Address: [address] [place] [address] Performed By: #### 5 7021-8 ####[facility] LABIA [id number] [place] [address] [place] MCV (RBC) [Entitic vol] 73.6 fL Low 80.0-100.0 [facility] Comment on above: Order Comment: Speci men Type: BLOOD SPECIMENOrdering Facility: [facility] Address: [address] [place] [address] Performed By: #### 5 7021-8 ####[facility] [id number] [place] [address] [place] Monocytes (Bld) [#/Vol] 0.39 10*3/uL Normal <0.87 [facility] Comment on above: Order Comment: Speci men Type: BLOOD SPECIMENOrdering Facility: [facility] Address: [address] [place] [address] Performed By: #### 5 7021-8 ####[facility] LABIA [id number] [place] [address] [place] Monocytes/100 WBC (Bld) 7.5 % Normal [facility] Comment on above: Order Comment: Speci men Type: BLOOD SPECIMENOrdering Facility: [facility] Address: [address] [place] [address] Performed By: #### 5 7021-8 ####[facility] LABCLIA [id number] [place] [address] [place] Neutrophils (Bld) [#/Vol] 2.24 10*3/uL Normal 1.45-7.50 [facility] Comment on above: Order Comment: Speci men Type: BLOOD SPECIMENOrdering Facility: [facility] Address: [address] [place] [address] Performed By: #### 5 7021-8 ####[facility] LABCLIA [id number] [place] [address] [place] Neutrophils/100 WBC (Bld) 42.8 % Normal [facility] Comment on above: Order Comment: Speci men Type: BLOOD SPECIMENOrdering Facility: [facility] Address: [address] [place] [address] Performed By: #### 5 7021-8 ####[facility] LABCLIA [id number] [place] [address] [place] Nucleated RBC (Bld) [#/Vol] 0.02 10*3/uL High <0.01 [facility] Comment on above: Order Comment: Speci men Type: BLOOD SPECIMENOrdering Facility: [facility] Address: [address] [place] [address] Performed By: #### 5 7021-8 ####[facility] LABCLIA [id number] [place] [address] [place] Nucleated RBC/100 WBC (Bld) [Ratio] 0.4 /100 WBC Normal [facility] Comment on above: Order Comment: Speci men Type: BLOOD SPECIMENOrdering Facility: [facility] Address: [address] [place] [address] Performed By: #### 5 7021-8 ####[facility] LABCLIA [id number] [address] [address] [place] Platelet mean volume (Bld) [Entitic vol] 9.0 fL Normal 9.0-12.7 [facility] Comment on above: Order Comment: Speci men Type: BLOOD SPECIMENOrdering Facility: [facility] Address: [address] [place] [address] Performed By: #### 5 7021-8 ####[facility] LABCLIA [id number] [place] [address] [place] Platelets (Bld) [#/Vol] 383 10*3/uL Normal 150-400 [facility] Comment on above: Order Comment: Speci men Type: BLOOD SPECIMENOrdering Facility: [facility] Address: [address] [place] [address] Performed By: #### 5 7021-8 ####[facility] LABCLIA [id number] [place] [address] [place] RBC (Bld) [#/Vol] 4.88 10*6/uL Normal 3.90-5.20 [facility] Comment on above: Order Comment: Speci men Type: BLOOD SPECIMENOrdering Facility: [facility] Address: [address] [place] [address] Performed By: #### 5 7021-8 ####[facility] LABIA [id number] [place] [address] [place] WBC (Bld) [#/Vol] 5.23 10*3/uL Normal 3.70-11.00 [facility] Comment on above: Order Comment: Speci men Type: BLOOD SPECIMENOrdering Facility: [facility] Address: [address] [place] [address] Performed By: #### 5 7021-8 ####[facility] LABIA [id number] [place] [id number] [place] Comprehensive metabolic 2000 panelon 12-01-2023 Albumin [Mass/Vol] 4.0 g/dL Normal 3.9-4.9 [facility] Comment on above: Order Comment: Speci men Type: BLOOD SPECIMENOrdering Facility: [facility] Address: [address] [place], [place] [address] Performed By: #### 2 4323-8, 65110-3, 80238-9, 3016-3 ####[facility] LABCLIA [id number] [place] [address] [place] ALP [Catalytic activity/Vol] 105 U/L Normal 34-123 [facility] Comment on above: Order Comment: Speci men Type: BLOOD SPECIMENOrdering Facility: [facility] Address: [address] [place] [address] Performed By: #### 2 4323-8, 67943-1, 94812-7, 3016-3 ####[facility] LABCLIA [id number] [place] [address] [place] ALT [Catalytic activity/Vol] 10 U/L Normal 7-38 [facility] Comment on above: Order Comment: Speci men Type: BLOOD SPECIMENOrdering Facility: [facility] Address: [address] [place] [address] Performed By: #### 2 4323-8, 84271-9, 27631-8, 3016-3 ####[facility] LABCLIA [id number] [place] [id number] [place] Anion gap [Moles/Vol] 13 mmol/L Normal 9-18 [facility] Comment on above: Order Comment: Speci men Type: BLOOD SPECIMENOrdering Facility: [facility] Address: [address] [place] [address] Performed By: #### 2 4323-8, 91352-8, 66644-6, 3016-3 ####[facility] LABCLIA [id number] [place] [id number] [place] AST [Catalytic activity/Vol] 20 U/L Normal 13-35 [facility] Comment on above: Order Comment: Speci men Type: BLOOD SPECIMENOrdering Facility: [facility] Address: [address] [place] [address] Performed By: #### 2 4323-8, 32013-3, 43565-5, 3016-3 ####[facility] LABCLIA [id number] [place] [address] [place] Bilirubin [Mass/Vol] 0.2 mg/dL Normal 0.2-1.3 [facility] Comment on above: Order Comment: Speci men Type: BLOOD SPECIMENOrdering Facility: [facility] Address: [address] [place] [address] Performed By: #### 2 4323-8, 91919-9, 85347-3, 3016-3 ####[facility] LABCLIA [id number] [place] [address] [place] Calcium [Mass/Vol] 9.6 mg/dL Normal 8.5-10.2 [facility] Comment on above: Order Comment: Speci men Type: BLOOD SPECIMENOrdering Facility: [facility] Address: [address] [place] [address] Performed By: #### 2 4323-8, 49389-1, 21184-5, 3016-3 ####[facility] LABCLIA [id number] [place] [address] [place] Chloride [Moles/Vol] 102 mmol/L Normal 97-105 [facility] Comment on above: Order Comment: Speci men Type: BLOOD SPECIMENOrdering Facility: [facility] Address: [address] [place] [address] Performed By: #### 2 4323-8, 69240-6, 22388-5, 3016-3 ####[facility] LABCLIA [id number] [place] [address] [place] CO2 [Moles/Vol] 21 mmol/L Low 22-30 [facility] Comment on above: Order Comment: Speci men Type: BLOOD SPECIMENOrdering Facility: [facility] Address: [address] [place] [address] Performed By: #### 2 4323-8, 67798-0, 04654-1, 3016-3 ####[facility] LABCLIA [id number] [place] [address] [place] Creatinine [Mass/Vol] 0.94 mg/dL Normal 0.58-0.96 [facility] Comment on above: Order Comment: Speci men Type: BLOOD SPECIMENOrdering Facility: [facility] Address: [address] [place] [address] Performed By: #### 2 4323-8, 99670-4, 91241-7, 3016-3 ####[facility] LABIA [id number] [place] [address] [place] Creatinine and Glomerular filtration rate.predicted panel (S/P/Bld) 68 mL/min/1.73m??? Normal >=60 [facility] Comment on above: Order Comment: Speci men Type: BLOOD SPECIMENOrdering Facility: [facility] Address: [address] [place] [address] Result Comment: Kelley mated Glomerular Filtration Rate [...] actual GFR. Performed By: #### 2 4323-8, 27447-7, 11644-8, 3016-3 ####[facility] LABCLIA [id number] [place] [id number] [place] Glucose [Mass/Vol] 111 mg/dL High 74-99 [facility] Comment on above: Order Comment: Speci men Type: BLOOD SPECIMENOrdering Facility: [facility] Address: [address] [place] [address] Result Comment: The [place] [employer] (ADA) provides guidance for cutoff [...] Standards of Medical Care in Diabetes 2016, [place] [employer]. Diabetes Care. 2016.39(Suppl 1). Performed By: #### 2 4323-8, 95452-2, 81997-3, 3016-3 ####[facility] LABCLIA [id number] [place] [address] [place] Potassium [Moles/Vol] 3.6 mmol/L Low 3.7-5.1 [facility] Comment on above: Order Comment: Winniei krish Type: BLOOD SPECIMENOrdering Facility: [facility] Address: [address] [place] [address] Performed By: #### 2 4323-8, 98379-6, 55048-1, 3016-3 ####[facility] LABCLIA [id number] [place] [id number] [place] Protein [Mass/Vol] 7.0 g/dL Normal 6.3-8.0 [facility] Comment on above: Order Comment: Winniei men Type: BLOOD SPECIMENOrdering Facility: [facility] Address: [address] [place] [address] Performed By: #### 2 4323-8, 08557-2, 84089-9, 3016-3 ####[facility] LABCLIA [id number] [place] [id number] [place] Sodium [Moles/Vol] 136 mmol/L Normal 136-144 [facility] Comment on above: Order Comment: Speci men Type: BLOOD SPECIMENOrdering Facility: [facility] Address: [address] [place], [place] [address] Performed By: #### 2 4323-8, 83284-8, 44207-1, 3016-3 ####[facility] LABCLIA [id number] [place] [id number] [place] Urea nitrogen [Mass/Vol] 9 mg/dL Normal 7-21 [facility] Comment on above: Order Comment: Speci men Type: BLOOD SPECIMENOrdering Facility: [facility] Address: [address] [place], [place] [address] Performed By: #### 2 4323-8, 74758-9, 20218-8, 3016-3 ####[facility] LABCLIA [id number] [place] [id number] [place] ED NOTEon 12-01-2023 ED NOTE HNO ID: [id number] Author: GRAY HECK RN Service: Emergency Medicine Author Type: Registered Nurse Type: ED Notes Filed: 12/01/2023 15:16 Note Text: Pt with 2 weeks of feeling faint, light headedness, cp, RAMIREZ, gradually becoming worse. Normal [facility] ED Triage Noteon 12-01-2023 ED Triage Note HNO ID: [id number] Author: RONNELL SERVIN MD Service: Emergency Medicine [...] needs to drive home before dark in [place]. Review results thus far, no severe abnormalities. Encouraged RTED at any time to continue her workup here, or closer to home at [facility] facilities such as [place] or [facility]. Clinical Impressions as of 12/01/23 1649 Chest pain, unspecified type SOB (shortness of breath) Tobacco use Primary hypertension Iron deficiency anemia, unspecified iron deficiency anemia type Thank you, Ronnell Servin MD [facility] [place] SIGNATURE: Ronnell Servin MD UPDATE for patient choosing to leave prior to being roomed and performance of a complete evaluation. Normal [facility] HIGH SENSITIVITY TROPONIN T (INITIAL)on 12-01-2023 Troponin T.cardiac High sensitivity method [Mass/Vol] 10 ng/L Normal <12 [facility] Comment on above: Order Comment: Edelmira rutherford Type: BLOOD SPECIMENOrdering Facility: [facility] Address: [address] [place] [address] Result Comment: When assessing risk for acute [...] 30 day MACE. Performed By: #### L [id number] ####[facility] LABCLIA [id number] [place] [address] [place] Magnesium SerPl-mCncon 11-30 Magnesium [Mass/Vol] 1.9 mg/dL Normal 1.7-2.3 [facility] Comment on above: Order Comment: Speci men Type: BLOOD SPECIMENOrdering Facility: [facility] Address: [address] [place] [address] Performed By: #### 2 4323-8, 99105-5, 35054-0, 3016-3 ####[facility] LABCLIA [id number] [place] [id number] [place] NT-proBNP SerPl-mCncon 11-30 Natriuretic peptide.B prohormone N-Terminal [Mass/Vol] 90 pg/mL Normal <125 [facility] Comment on above: Order Comment: Speci men Type: BLOOD SPECIMENOrdering Facility: [facility] Address: [address] [place] [address] Performed By: #### 2 4323-8, 14088-3, 51202-0, 3016-3 ####[facility] LABCLIA [id number] [place] [address] [place] TSH SerPl-aCncon 12-01-2023 TSH Qn 1.080 m[IU]/L Normal 0.270-4.20 0 [facility] Comment on above: Order Comment: Speci men Type: BLOOD SPECIMENOrdering Facility: [facility] Address: [address] [place] [address] Performed By: #### 2 4323-8, 41268-5, 46039-8, 3016-3 ####[facility] LABIA [id number] [place] [address] [place] XR CHEST 2V [...] Degenerative changes. IMPRESSION: No acute radiographic abnormality. Paperboard Box Maker: NAIDA Transcribe Date/Time: Dec 01 2023 3:46P Dictated by : JOVANI ESCUDERO MD This examination was interpreted and the report reviewed and electronically signed by: ORESTES LI MD on Dec 01 2023 3:54PM EST [id number] Normal [facility] Absolute lymphocyte countOrd ered By: Charly Almonte on 11-16-2023 Lymphocytes Auto (Unsp spec) [#/Vol] 3.06 10*3/uL 0.83-4.51 [facility] Automated lymphocyte count a s percentage of total leukocytesOrdered By: Charly Almonte on 11-16-2023 Lymphocytes/100 WBC Auto (Unsp spec) 57.5 % 19-41 [facility] Basophil percentageOrdered B y: Charly Almonte on 11-16-2023 Basophils/100 WBC (Bld) 0.4 % 0-1 [facility] Chloride [Moles/Vol] 110 mmol/L 98-107 [facility] Eosinophils/100 WBC (Bld) 1.7 % 0-5 [facility] Glucose [Mass/Vol] 113 mg/dL 74-106 [facility] Comment on above: Fasting Glucose resu lt from 100 to 125 mg/dL suggests IMPAIRED HOMEOSTASIS per A.D.A. criteria. Hemoglobin (Bld) [Mass/Vol] 11.5 g/dL 12.0-15.0 [facility] Monocytes/100 WBC (Bld) 6.8 % 0-10 [facility] Neutrophils (Bld) [#/Vol] 1.8 10*3/uL 2.0-7.7 [facility] Neutrophils/100 WBC (Bld) 33.4 % 47-70 [facility] Potassium [Moles/Vol] 3.7 mmol/L 3.5-5.1 [facility] Sodium [Moles/Vol] 140 mmol/L 136-145 [facility] WBC (Bld) [#/Vol] 5.3 10*3/uL 4.4-11.0 [facility] Determination of erythrocyte mean corpuscular volume (MCV)Ordered By: Charly Almonte on 11-16-2023 MCV (RBC) [Entitic vol] 74.5 fL 81-99 [facility] Erythrocyte distribution wid th ratioOrdered By: Charly Almonte on 11-16-2023 Erythrocyte distribution width (RBC) [Ratio] 18.6 % 11.6-14.6 [facility] Erythrocyte distribution wid th standard deviationOrdered By: Charly Almonte on 11-16-2023 Erythrocyte distribution width (RBC) [Entitic vol] 49.6 fL 35.1-43.9 [facility] Hematocrit Auto (Bld) [Volum e fraction]Ordered By: Charly Almonte on 11-16-2023 Hematocrit (Bld) [Volume fraction] 37.1 % 37-47 [facility] Immature granulocytes/100 WB C Auto (Bld)Ordered By: Charly Almonte on 11-16-2023 Immature granulocytes/100 WBC (Bld) 0.200 % 0.0-0.9 [facility] Comment on above: IG% - Immature Granu locytes (promyelocytes, myelocytes and metamyelocytes) > 1% indicates that a LEFT SHIFT is Present. Laboratory - Chemistry and C hemistry - challengeOrdered By: Charly Almonte on 11-16-2023 CO2 [Moles/Vol] 25.0 mmol/L 21.0-32.0 [facility] Urea nitrogen/Creatinine [Mass ratio] 14.4 mg/mg 10-20 [facility] Laboratory - Hematology and Cell countsOrdered By: Charly Almonte on 11-16-2023 MCH (RBC) [Entitic mass] 23.1 pg 27.0-32.0 [facility] MCHC (RBC) [Mass/Vol] 31.0 g/dL 32-36 [facility] Nucleated RBC/100 WBC (Bld) [Ratio] 0 % 0-5 [facility] Platelet mean volume (Bld) [Entitic vol] 9.2 fL 6.2-12.0 [facility] Platelets (Bld) [#/Vol] 396 10*3/uL 150-450 [facility] Laboratory - Microbiology an d Antimicrobial susceptibilityOrdered By: Charly Almonte on 11-16-2023 SARS-CoV-2 (COVID-19) RNA BISI+probe Ql (Unsp spec) [facility] No Panel InformationOrdered By: Charly Almonte on 11-16-2023 Troponin I High Sensitivity 28 pg/mL 3.0-54.0 [facility] Comment on above: Please Note: New Sary t Units and Gender Specific Reference Ranges. For more information see Policy Stat Procedure [place] High Sensitivity Troponin (TNIH) and attachments. D-Dimer Quantitative (PE/DVT) 0.37 FEU/ug/m 0.27-0.49 [facility] Comment on above: NORMAL D-Dimer level (<0.50) indicates no DVT or PE. Estimated Creatinine Clearance Calc 51.83 ml/min [facility] Estimated GFR (MDRD) Amer 69 mL/min >60 [facility] Comment on above: GFR Calc Estimated GFR (MDRD) Non-Af Amer 57 mL/min >60 [facility] Comment on above: Non- GFR Calc RBC Auto (Bld) [#/Vol]Ordere d By: Charly Almonte on 11-16-2023 RBC (Bld) [#/Vol] 4.98 10*6/uL 4.2-5.4 [facility] Serum or plasma calcium angela urement (mass/volume)Ordered By: Charly Almonte on 11-16-2023 Calcium [Mass/Vol] 9.3 mg/dL 8.5-10.1 [facility] Serum or plasma creatinine m easurement (mass/volume)Ordered By: Charly Almonte on 11-16-2023 Creatinine [Mass/Vol] 1.04 mg/dL 0.55-1.02 [facility] Comment on above: The validity of the calculated GFR & GFRAA in patients over 70 years has not been determined. Clinical correlation is essential. Serum or plasma urea nitroge n measurement (mass/volume)Ordered By: Charly Almonte on 11-16-2023 Urea nitrogen [Mass/Vol] 15 mg/dL 7-18 [facility] Thin prep Papanicolaou smear with manual screeningOrdered By: Charly Almonte on 11-16-2023 Thin prep Papanicolaou smear with manual screening 5 5-15 [facility] Telephone Encounteron 2023 Dress Cap Maker Authentication Interface Message Text OARRS reviewed Normal [facility] Telephone Encounteron 2023 Dress Cap Maker Authentication Interface Message Text Patient must schedule, and keep, follow up appointments to continue to receive this medication. 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 Authentication Interface Message Text Care Gaps Scheduling Health Maintenence Due: Medicare AWV/PCP Visit: deferred Eye Exam: not due Foot Exam: not due Annual Bloodwork: active orders YOKO: not due Normal [facility] Absolute lymphocyte countOrd ered By: Blaise Tom on 03-23-2023 Lymphocytes Auto (Unsp spec) [#/Vol] 2.35 10*3/uL 0.83-4.51 [facility] Amorphous sediment detection in urine sediment by light microscopyOrdered By: Blaise Tom on 03-23-2023 Amorphous sediment LM Ql (Urine sed) 1+ URATE [facility] Basophil percentageOrdered B y: Blaise Tom on 03-23-2023 Basophil percentage 0-5 SEEN /hpf 0-5 [facility] Basophils/100 WBC (Bld) 0.4 % 0-1 [facility] Bilirubin [Mass/Vol] 0.20 mg/dL 0.20-1.00 [facility] Comment on above: For patients on eltr ombopag therapy, use of Dimension [place] TBIL is not recommended. Chloride [Moles/Vol] 109 mmol/L 98-107 [facility] Eosinophils/100 WBC (Bld) 2.0 % 0-5 [facility] Glucose [Mass/Vol] 85 mg/dL 74-106 [facility] Neutrophils (Bld) [#/Vol] 1.8 10*3/uL 2.0-7.7 [facility] Neutrophils/100 WBC (Bld) 37.9 % 47-70 [facility] Potassium [Moles/Vol] 4.0 mmol/L 3.5-5.1 [facility] Protein [Mass/Vol] 6.7 g/dL 6.4-8.2 [facility] Sodium [Moles/Vol] 140 mmol/L 136-145 [facility] WBC (Bld) [#/Vol] 4.6 10*3/uL 4.4-11.0 [facility] Bilirubin Test strip Ql (U)O rdered By: Blaise Tom on 03-23-2023 Bilirubin Ql (U) Negative Negative [facility] Blood erythrocytes count (nu mber/volume)Ordered By: Blaise Tom on 03-23-2023 RBC (Bld) [#/Vol] 4.77 10*6/uL 4.2-5.4 [facility] Blood hemoglobin measurement (mass/volume)Ordered By: Blaise Tom on 03-23-2023 Hemoglobin (Bld) [Mass/Vol] 11.5 g/dL 12.0-15.0 [facility] Blood lymphocytes/100 leukoc ytesOrdered By: Blaise Tom on 03-23-2023 Lymphocytes/100 WBC (Bld) 51.0 % 19-41 [facility] Blood manual differential co mment interpretation (narrative result)Ordered By: Blaise Tom on 03-23-2023 Manual differential comment Ryan (Bld) [Interp] See comment [facility] Comment on above: 1+ ANISOCYTOSIS Blood monocytes/100 leukocyt esOrdered By: Blaise Tom on 03-23-2023 Monocytes/100 WBC (Bld) 8.7 % 0-10 [facility] Blood platelet mean volumeOr dered By: Blaise Tom on 03-23-2023 Platelet mean volume (Bld) [Entitic vol] 9.1 fL 6.2-12.0 [facility] Determination of erythrocyte mean corpuscular volume (MCV)Ordered By: Blaise Tom on 03-23-2023 MCV (RBC) [Entitic vol] 77.8 fL 81-99 [facility] Hematocrit Auto (Bld) [Volum e fraction]Ordered By: Blaise Tom on 03-23-2023 Hematocrit (Bld) [Volume fraction] 37.1 % 37-47 [facility] Ketones Test strip Ql (U)Ord ered By: Blaise Tom on 03-23-2023 Ketones Ql (U) 15 mg/dl Negative [facility] Laboratory - Chemistry and C hemistry - challengeOrdered By: Blaise Tom on 03-23-2023 ALP [Catalytic activity/Vol] 92 U/L 45-117 [facility] ALT [Catalytic activity/Vol] 22 U/L 13-56 [facility] CO2 [Moles/Vol] 24.0 mmol/L 21.0-32.0 [facility] Globulin (S) [Mass/Vol] 3.5 g/dL 2.2-4.2 [facility] Lipase [Catalytic activity/Vol] 38 U/L 13-75 [facility] Comment on above: Please note:LIPASE r evised reference range effective 22. New Lipase methodology. Expected to produce lower values than the previous assay method. NEW Reference Range: 13 - 75 U/L Urea nitrogen/Creatinine [Mass ratio] 17.0 mg/mg 10-20 [facility] Laboratory - Hematology and Cell countsOrdered By: Blaise Tom on 03-23-2023 Erythrocyte distribution width (RBC) [Entitic vol] 56.7 fL 35.1-43.9 [facility] Erythrocyte distribution width (RBC) [Ratio] 20.6 % 11.6-14.6 [facility] Immature granulocytes/100 WBC (Bld) 0.000 % 0.0-0.9 [facility] Comment on above: IG% - Immature Granu locytes (promyelocytes, myelocytes and metamyelocytes) > 1% indicates that a LEFT SHIFT is Present. MCH (RBC) [Entitic mass] 24.1 pg 27.0-32.0 [facility] Nucleated RBC/100 WBC (Bld) [Ratio] 0 % 0-5 [facility] MCHC Auto (RBC) [Mass/Vol]Or dered By: Blaise Tom on 03-23-2023 MCHC (RBC) [Mass/Vol] 31.0 g/dL 32-36 [facility] Mucus LM Ql (Urine sed)Order ed By: Blaise Tom on 03-23-2023 Mucus Ql (Urine sed) 0 SEEN /hpf [facility] Nitrite Test strip Ql (U)Ord ered By: Blaise Tom on 03-23-2023 Nitrite Ql (U) Negative Negative [facility] No Panel InformationOrdered By: Blaise Tom on 03-23-2023 Estimated Creatinine Clearance Calc 50.85 ml/min [facility] Estimated GFR (MDRD) Amer 67 mL/min >60 [facility] Comment on above: GFR Calc Estimated GFR (MDRD) Non-Af Amer 56 mL/min >60 [facility] Comment on above: Non- GFR Calc Platelets bldOrdered By: Darwin Tom on 03-23-2023 Platelets (Bld) [#/Vol] 225 10*3/uL 150-450 [facility] Protein Test strip Ql (U)Ord ered By: Blaise Tom on 03-23-2023 Protein Ql (U) 30 mg/dl Negative [facility] Serum or plasma albumin angela urement (mass/volume)Ordered By: Blaise Tom on 03-23-2023 Albumin [Mass/Vol] 3.2 g/dL 3.2-5.0 [facility] Serum or plasma albumin/glob ulin mass ratioOrdered By: Blaise Tom on 03-23-2023 Albumin/Globulin [Mass ratio] 0.9 {ratio} 0.9-2.4 [facility] Serum or plasma calcium angela urement (mass/volume)Ordered By: Blaise Tom on 03-23-2023 Calcium [Mass/Vol] 9.1 mg/dL 8.5-10.1 [facility] Serum or plasma creatinine m easurement (mass/volume)Ordered By: Balise Tom on 03-23-2023 Creatinine [Mass/Vol] 1.06 mg/dL 0.55-1.02 [facility] Comment on above: The validity of the calculated GFR & GFRAA in patients over 70 years has not been determined. Clinical correlation is essential. Serum or plasma urea nitroge n measurement (mass/volume)Ordered By: Blaise Tom on 03-23-2023 Urea nitrogen [Mass/Vol] 18 mg/dL 7-18 [facility] Squamous epithelial cells de tection in urine sediment by light microscopyOrdered By: Blaise Tom on 03-23-2023 Epithelial cells.squamous LM Ql (Urine sed) 0-5 SEEN /hpf 5-10 [facility] Thin prep Papanicolaou smear with manual screeningOrdered By: Blaise Tom on 03-23-2023 Thin prep Papanicolaou smear with manual screening 17 U/L 15-37 [facility] Thin prep Papanicolaou smear with manual screening 7 5-15 [facility] Urine blood detectionOrdered By: Blaise Tom on 03-23-2023 RBC Ql (U) 10 /ul Negative [facility] RBC Ql (U) 0-5 SEEN /hpf 0-5 [facility] Urine clarityOrdered By: Darwin Tom on 03-23-2023 Clarity (U) Clear Clear [facility] Urine color determinationOrd ered By: Blaise Tom on 03-23-2023 Color (U) Yellow Yellow [facility] Urine glucose detectionOrder ed By: Blaise Tom on 03-23-2023 Glucose Ql (U) Normal mg/dl Normal [facility] Urine leukocyte esterase det ection by dipstickOrdered By: Blaise Tom on 03-23-2023 Leukocyte esterase Test strip Ql (U) 25 /ul Negative [facility] Urine pHOrdered By: Blaise ordaz on 03-23-2023 pH (U) 6.0 [pH] 5.0 - 8.0 [facility] Urine sediment bacteria coun t by microscopy (number/high power field)Ordered By: Blaise Tom on 03-23-2023 Bacteria LM.HPF (Urine sed) [#/Area] 0 /[HPF] None Seen [facility] Urine specific gravity measu rementOrdered By: Blaise Tom on 03-23-2023 Specific gravity (U) [Rel density] 1.020 1.002-1.03 0 [facility] Urobilinogen Auto test strip Ql (U)Ordered By: Blaise Tom on 03-23-2023 Urobilinogen Ql (U) 1 mg/dl Normal [facility] Telephone Encounteron 2022 [employer] Authentication Interface Message Text Order pended for provider review AND signature. Requested Prescriptions Pending Prescriptions Disp Refills Syringe 23G X 1 3 ML MISC 12 Each 0 Si Syringe once a month. vitamin B-12 (CYANOCOBALAMIN) 1000 MCG/ML injection 12 Each 0 Sig: Inject 1 mL into the muscle once a month. Normal [facility] [employer] Authentication Interface Message Text Pharmacy requesting medication substitution. Medication not available to order: Cyanocobalamin 1000 MCG/ML KIT Recommended alternative medications: Pharmacy is requesting two separate prescriptions, one for the vitamin B injection solution and the other for the syringe to inject it. Prescribing provider's name: Hilton Johnson MD Pharmacy Name: [facility] Normal [facility] Telephone Encounteron 2022 [employer] Authentication Interface Message Text Patient was identified [...] understanding with no further questions. Normal [facility] [employer] Authentication Interface Message Text Prescribing a statin in response to the elevated cholesterol and total nonHDL cholesterol identified on her lipid panel realizing that the HDL is quite elevated and might indicate some degree of protection against CVD. Normal [facility] Addendum Noteon 03-09-2023 [employer] Authentication Interface Message Text Addended by: NICHELLE HILLS on: 03/09/2023 02:14 PM Modules accepted: Orders Normal [facility] BASIC METABOLIC PANELon 08- Anion gap [Moles/Vol] 12 mmol/L Normal 10-20 [facility] Comment on above: Performed By: #### V ITB12, HDL, CH8, LUCIAN ####[facility] [id number] [place], [place], Calcium [Mass/Vol] 9.5 mg/dL Normal 8.4-10.4 [facility] Comment on above: Performed By: #### V ITB12, HDL, CH8, LUCIAN ####[facility] [id number] [place], [place], Chloride [Moles/Vol] 108 mmol/L Normal 97-111 [facility] Comment on above: Performed By: #### V ITB12, HDL, CH8, LUCIAN ####[facility] [id number] [place], CO2 [Moles/Vol] 25 mmol/L Normal 21-30 [facility] Comment on above: Performed By: #### V ITB12, HDL, CH8, LUCIAN ####S PATHOLOGY [id number] [place], Creatinine [Mass/Vol] 1.05 mg/dL Normal 0.50-1.10 [facility] Comment on above: Performed By: #### V ITB12, HDL, CH8, LUCIAN ####[facility] [id number] [place], ESTIMATED GFR (CKD-EPI) 60 mL/min/1.73sqm Normal >=60 [facility] Comment on above: Result Comment: 2020 [...] Inclusion of Race in Diagnosing Kidney Disease. [place] Journal of Kidney Diseases 202;79(2):268-88.e1. 2. N Engl J Med 1 Vol. 385 Issue 19 Pages 2271-3672 Performed By: #### V ITB12, HDL, CH8, LUCIAN ####[facility] [id number] [place], Glucose [Mass/Vol] 85 mg/dL Normal 80-116 [facility] Comment on above: Performed By: #### V ITB12, HDL, CH8, LUCIAN ####S PATHOLOGY [id number] [place], Potassium [Moles/Vol] 4.1 mmol/L Normal 3.3-5.3 [facility] Comment on above: Performed By: #### V ITB12, HDL, CH8, LUCIAN ####[facility] [id number] [place], Sodium [Moles/Vol] 141 mmol/L Normal 135-148 [facility] Comment on above: Performed By: #### V ITB12, HDL, CH8, LUCIAN ####[facility] PATHOLOG[facility] [id number] [place], Urea nitrogen [Mass/Vol] 16 mg/dL Normal 8-22 [facility] Comment on above: Performed By: #### V ITB12, HDL, CH8, LUCIAN ####[facility] PATHOLOGY YEIMORPELW7005 [place], [place], Basic metabolic 2000 panelon 03-09-2023 Anion [...] MDRD (S/P/Bld) [Vol rate/Area] 60 mL/min/{1.73_m2} [facility] Comment on above: 2020 CKD EPI Equatio [...] Inclusion of Race in Diagnosing Kidney Disease. [place] Journal of Kidney Diseases 202;79(2):268-88.e1. 2. N Engl J Med 2020 Vol. 385 Issue 19 Pages 4006-7905 Glucose [Mass/Vol] 85 mg/dL 80 - 116 [...] [#/Vol] 229 10*3/uL 150 - 400 K/uL [facility] RBC (Bld) [#/Vol] 4.87 10*6/uL [facility] WBC (Bld) [#/Vol] 4.2 10*3/uL Low 4.5 - 11.5 K/uL [facility] CBC WITH DIFFERENTIALon 08-0 Basophils (Bld) [#/Vol] 0.03 10*3/uL Normal 0.00-0.20 [facility] Comment on above: Performed By: ###KERI VILLATORO ####S PATHOLOGY [id number] [place], Basophils/100 WBC (Bld) 0.8 % Normal <=1.9 [facility] Comment on above: Performed By: ###KERI VILLATORO ####[facility] [id number] [place], Eosinophils (Bld) [#/Vol] 0.08 10*3/uL Normal 0.00-0.70 [facility] Comment on above: Performed By: #### KERI BEASLEY ####[facility] [id number] [place], Eosinophils/100 WBC (Bld) 2.0 % Normal 0.1-4.0 [facility] Comment on above: Performed By: #### KERI BEASLEY ####[facility] [id number] [place], [place], Erythrocyte distribution width (RBC) [Ratio] 20.3 % High 11.5-14.5 [facility] Comment on above: Performed By: #### KERI BEASLEY ####S PATHOLOGY [id number] [place], [place], Hematocrit (Bld) [Volume fraction] 37.7 % Normal 36.0-46.0 [facility] Comment on above: Performed By: ###KERI VILLATORO ####S PATHOLOGY [id number] [place], Hemoglobin (Bld) [Mass/Vol] 11.9 g/dL Low 12.0-15.0 [facility] Comment on above: Performed By: ###KERI VILLATORO ####[facility] [id number] [place], Lymphocytes (Bld) [#/Vol] 2.22 10*3/uL Normal 1.00-4.80 [facility] Comment on above: Performed By: #### KERI BEASLEY ####[facility] [id number] [place] [address], Lymphocytes/100 WBC (Bld) 53.0 % High 24.0-44.0 [facility] Comment on above: Performed By: ###KERI VILLATORO ####[facility] [id number] [place] [address], MCH (RBC) [Entitic mass] 24.5 pg Low 26.0-34.0 [facility] Comment on above: Performed By: ###KERI VILLATORO ####[facility] [id number] [place] [address], MCHC (RBC) [Mass/Vol] 31.6 g/dL Low 32.0-35.9 [facility] Comment on above: Performed By: ###KERI VILLATORO ####[facility] [id number] [place] [address], MCV (RBC) [Entitic vol] 78 fL Low 80-100 [facility] Comment on above: Performed By: ###KERI VILLATORO ####[facility] [id number] [place] [address], MONOCYTE DISTRIBUTION WIDTH Normal [facility] Comment on above: Performed By: ###KERI VILLATORO ####[facility] [id number] [place], Monocytes (Bld) [#/Vol] 0.29 10*3/uL Normal 0.20-1.00 [facility] Comment on above: Performed By: ###KERI VILLATORO ####[facility] [id number] [place] [address], [place], Monocytes/100 WBC (Bld) 7.0 % Normal 2.0-11.0 [facility] Comment on above: Performed By: ###KERI VILLATORO ####[facility] [id number] [place], Neutrophils (Bld) [#/Vol] 1.56 10*3/uL Normal 1.50-8.00 [facility] Comment on above: Performed By: #### KERI BEASLEY ####[facility] [id number] [place], Neutrophils/100 WBC (Bld) 37.3 % Normal 31.0-76.0 [facility] Comment on above: Performed By: ###KERI VILLATORO ####[facility] [id number] [place] [address], Platelet mean volume (Bld) [Entitic vol] 8.0 fL Normal 7.5-11.2 [facility] Comment on above: Performed By: ###KERI VILLATORO ####[facility] [id number] [place], Platelets (Bld) [#/Vol] 229 10*3/uL Normal 150-400 [facility] Comment on above: Performed By: #### KERI BEASLEY ####[facility] [id number] [place], RBC (Bld) [#/Vol] 4.87 10*6/uL Normal 4.00-5.20 [facility] Comment on above: Performed By: ###KERI VILLATORO ####S PATHOLOGY [id number] [place], WBC (Bld) [#/Vol] 4.2 10*3/uL Low 4.5-11.5 [facility] Comment on above: Performed By: ###KERI VILLATORO ####S PATHOLOG[facility] [id number] [place], [place], DARK BLUE TOP TUBE, BLOODon 08-08-2023 Extra Tube Done [facility] FERRITINon 03-09-2023 Ferritin [Mass/Vol] 12.2 ng/mL 10.3 - 219.0 ng/mL [facility] Interpretation and review of laboratory results Normal [facility] LUCIAN 12.2 ng/mL Normal 10.3-219.0 [facility] Comment on above: Performed By: #### V ITB12, HDL, CH8, LUCIAN ####[facility] [id number] [place], [place], FULL LIPID PROFILEon 023 Cholesterol [Mass/Vol] 256 mg/dL High <200 Th e [facility] Comment on above: Performed By: #### V ITB12, HDL, CH8, LUCIAN ####[facility] [id number] [place] [address], Cholesterol in LDL [Mass/Vol] 175 mg/dL High <111 [facility] Comment on above: Performed By: #### V ITB12, HDL, CH8, LUCIAN ####[facility] [id number] [place] [address], Cholesterol.total/Chol esterol in HDL [Mass ratio] 3.66 {ratio} Normal <5.00 [facility] Comment on above: Performed By: #### V ITB12, HDL, CH8, LUCIAN ####[facility] [id number] [place] [address], HDL CHOL 70 mg/dL Normal >54 [facility] Comment on above: Performed By: #### V ITB12, HDL, CH8, LUCIAN ####[facility] [id number] [place], LDL/HDL 2.50 Normal <3.57 [facility] Comment on above: Performed By: #### V ITB12, HDL, CH8, LUCIAN ####[facility] [id number] [place], NON-HDL CHOLESTEROL 186 mg/dL High <130 [facility] Comment on above: Performed By: #### V ITB12, HDL, CH8, LUCIAN ####[facility] [id number] [place], [address] Triglyceride [Mass/Vol] 86 mg/dL Normal <151 [facility] Comment on above: Performed By: #### V ITB12, HDL, CH8, LUCIAN ####[facility] [id number] [place], [address] HEMOGLOBIN A1Con 03-09-2023 Glucose [Mass/Vol] 123 mg/dL Normal [facility] Comment on above: Performed By: #### H B A1C #### S [facility] [address] [place], [address] HbA1c (Bld) [Mass fraction] 5.9 % High 4.0-5.6 [facility] Comment on above: Performed By: #### H B A1C #### [facility] [address] [place], [address] Lipid 1996 panelon 3 Cholesterol [Mass/Vol] 256 [...] Performed By: #### KERI BEASLEY ####[facility] [id number] [place], [place], FRAGMENTED RBC Few Normal [facility] Comment on above: Performed By: #### KERI BEASLEY ####[facility] [id number] [place], HYPOCHROMASIA Slight Normal [facility] Comment on above: Performed By: #### KERI BEASLEY ####[facility] [id number] [place], MICROCYTOSIS Slight Normal [facility] Comment on above: Performed By: #### KERI BEASLEY ####[facility] [id number] [place], OVALOCYTES Few Normal [facility] Comment on above: Performed By: #### KERI BEASLEY ####[facility] [id number] [place], SPHEROCYTES Few Normal [facility] Comment on above: Performed By: #### KERI BEASLEY ####S PATHOLOGY [id number] [place], [place], No Panel Informationon 03-09 [facility] Progress Noteson 03-09-2023 [employer] Authentication Interface Message Text Patient identified by name and date of . Blood obtained from arm. Normal [facility] [employer] Authentication Interface Message Text Date: 03/09/23 Morena Patton 63 year old, female [id number] CHIEF COMPLAINT: Chief Complaint Patient presents with [...] about a week ago. She lives in [place] but came here today because viktoriya really knows me. She ran out of most of her medications and has not been taking them. She passed out last week and picked up some medications at that time. She is now on a heart monitor. She is due to see a dynamometer tester when she turns in her monitor. She was in the ED on January 30 for abdominal pain. She was discharged on Carafate. She started taking it on 02/24. She was in pain the entire time up until starting to take it. Her pain is now improved but not resolved. She states that she needs to see a synthetic resin operator and Neurologist and dynamometer tester. ED Morena Patton is a 62 year [...] with use of omeprazole, lidocaine patches, and 6253-2521 mg tylenol which she has been taking [...] content not included)... Normal [facility] [employer] Authentication Interface Message Text Identification was verified [...] on above: Order Comment: <152 pg/mL - [id number] - 300 pg/mL- Insufficient>300 pg/mL - Sufficient Performed By: #### V ITB12, HDL, CH8, LUCIAN ####[facility] [id number] [place], [address] VITAMIN D, 25-HYDROXYon 25-hydroxyvitamin D IA [Mass/Vol] 62 ng/mL 30 - 100 ng/mL [facility] Interpretation and review of laboratory results Normal [facility] Deficient : <20.0 ng /mL Insufficient : 20.0-29.9 ng/mL Sufficient : 30.0 - 100.0 ng/mL Potential Toxicity : >100.0 ng/mL [facility] Telephone Encounteron 2022 [employer] Authentication Interface Message Text Patient is calling [...] Auto (Unsp spec) [#/Vol] 2.12 10*3/uL 0.83-4.51 [facility] Basophil percentageOrdered B y: Virginie Aguillon on 02-16-2023 Basophils/100 WBC (Bld) 0.8 % 0-1 [facility] Chloride [Moles/Vol] 108 mmol/L 98-107 [facility] Eosinophils/100 WBC (Bld) 4.0 % 0-5 [facility] Glucose [Mass/Vol] 91 mg/dL 74-106 [facility] Neutrophils (Bld) [#/Vol] 0.9 10*3/uL 2.0-7.7 [facility] Neutrophils/100 WBC (Bld) 26.0 % 47-70 [facility] Potassium [Moles/Vol] 4.0 mmol/L 3.5-5.1 [facility] Sodium [Moles/Vol] 138 mmol/L 136-145 [facility] WBC (Bld) [#/Vol] 3.5 10*3/uL 4.4-11.0 [facility] Blood erythrocytes count (nu mber/volume)Ordered By: Virginie Aguillon on 02-16-2023 RBC (Bld) [#/Vol] 4.45 10*6/uL 4.2-5.4 [facility] Blood hemoglobin measurement (mass/volume)Ordered By: Virginie Aguillon on 02-16-2023 Hemoglobin (Bld) [Mass/Vol] 10.5 g/dL 12.0-15.0 [facility] Blood lymphocytes/100 leukoc ytesOrdered By: Virginie Aguillon on 02-16-2023 Lymphocytes/100 WBC (Bld) 60.1 % 19-41 [facility] Blood manual differential co mment interpretation (narrative result)Ordered By: Virginie Aguillon on 02-16-2023 Manual differential comment Ryan (Bld) [Interp] SCANNED [facility] Comment on above: NEUTROPENIA Blood monocytes/100 leukocyt esOrdered By: Virginie Aguillon on 02-16-2023 Monocytes/100 WBC (Bld) 8.8 % 0-10 [facility] Blood platelet mean volumeOr dered By: Virginie Aguillon on 02-16-2023 Platelet mean volume (Bld) [Entitic vol] 10.1 fL 6.2-12.0 [facility] Determination of erythrocyte mean corpuscular volume (MCV)Ordered By: Virginie Aguillon on 02-16-2023 MCV (RBC) [Entitic vol] 79.1 fL 81-99 [facility] Hematocrit Auto (Bld) [Volum e fraction]Ordered By: Virginie Aguillon on 02-16-2023 Hematocrit (Bld) [Volume fraction] 35.2 % 37-47 [facility] Laboratory - Chemistry and C hemistry - challengeOrdered By: Virginie Aguillon on 02-16-2023 CO2 [Moles/Vol] 25.0 mmol/L 21.0-32.0 [facility] Urea nitrogen/Creatinine [Mass ratio] 8.9 mg/mg 10-20 [facility] Laboratory - Hematology and Cell countsOrdered By: Virginie Aguillon on 02-16-2023 Erythrocyte distribution width (RBC) [Entitic vol] 52.3 fL 35.1-43.9 [facility] Erythrocyte distribution width (RBC) [Ratio] 18.6 % 11.6-14.6 [facility] Immature granulocytes/100 WBC (Bld) 0.300 % 0.0-0.9 [facility] Comment on above: IG% - Immature Granu locytes (promyelocytes, myelocytes and metamyelocytes) > 1% indicates that a LEFT SHIFT is Present. MCH (RBC) [Entitic mass] 23.6 pg 27.0-32.0 [facility] Nucleated RBC/100 WBC (Bld) [Ratio] 0 % 0-5 [facility] MCHC Auto (RBC) [Mass/Vol]Or dered By: Virginie Aguillon on 02-16-2023 MCHC (RBC) [Mass/Vol] 29.8 g/dL 32-36 [facility] Comment on above: Delta: 31.7 on 02/15-0600 No Panel InformationOrdered By: Virginie Aguillon on 02-16-2023 Estimated Creatinine Clearance Calc 48.13 ml/min [facility] Estimated GFR (MDRD) Amer 63 mL/min >60 [facility] Comment on above: GFR Calc Estimated GFR (MDRD) Non-Af Amer 52 mL/min >60 [facility] Comment on above: Non- GFR Calc Platelets bldOrdered By: Lucero Aguillon on 02-16-2023 Platelets (Bld) [#/Vol] 206 10*3/uL 150-450 [facility] Serum or plasma calcium angela urement (mass/volume)Ordered By: Virginie Aguillon on 02-16-2023 Calcium [Mass/Vol] 9.1 mg/dL 8.5-10.1 [facility] Serum or plasma creatinine m easurement (mass/volume)Ordered By: Virginie Aguillon on 02-16-2023 Creatinine [Mass/Vol] 1.12 mg/dL 0.55-1.02 [facility] Comment on above: The validity of the calculated GFR & GFRAA in patients over 70 years has not been determined. Clinical correlation is essential. Serum or plasma urea nitroge n measurement (mass/volume)Ordered By: Virginie Aguillon on 02-16-2023 Urea nitrogen [Mass/Vol] 10 mg/dL 02-16 [facility] Thin prep Papanicolaou smear with manual screeningOrdered By: Virginie Aguillon on 02-16-2023 Thin prep Papanicolaou smear with manual screening 5 5- [facility] Basophil percentageOrdered B y: Drew Solis on 02-15-2023 Basophil percentage 3.6 mg/dL 2.5-4.9 [facility] Bilirubin [Mass/Vol] 0.20 mg/dL 0.20-1.00 [facility] Comment on above: For patients on eltr ombopag therapy, use of Dimension [place] TBIL is not recommended. Cholesterol [Mass/Vol] 196 mg/dL <200 [facility] Comment on above: <200 mg/dL Desirable 200-240 mg/dL Borderline >240 mg/dL High Risk Protein [Mass/Vol] 6.1 g/dL 6.4-8.2 [facility] Triglyceride [Mass/Vol] 141 mg/dL <199 [facility] Comment on above: The drugs N-Acetylcy steine and Metamizole may falsely depress this assay.Serum Triglycerides Reference Interval Normal <150 mg/dL Borderline high 150 - 199 mg/dL High 200 - 499 mg/dL Very High > or = 500 mg/dL Laboratory - Chemistry and C hemistry - challengeOrdered By: Drew Solis on 02-15-2023 ALP [Catalytic activity/Vol] 81 U/L 45-117 [facility] ALT [Catalytic activity/Vol] 15 U/L 13-56 [facility] Globulin (S) [Mass/Vol] 3.4 g/dL 2.2-4.2 [facility] Magnesium [Mass/Vol] 2.3 mg/dL 1.6-2.6 [facility] [facility] No Panel InformationOrdered By: Drew Solis on 02-15-2023 Thyroid Stimulating Hormone (TSH) 1.25 uIU/mL 0.358-3.74 [facility] Serum or plasma albumin angela urement (mass/volume)Ordered By: Drew Solis on 02-15-2023 Albumin [Mass/Vol] 2.7 g/dL 3.2-5.0 [facility] [place] Serum or plasma albumin/glob ulin mass ratioOrdered By: Drew Solis on 02-15-2023 Albumin/Globulin [Mass ratio] 0.8 {ratio} 0.9-2.4 [facility] Serum or plasma cholesterol in HDL measurement (mass/volume)Ordered By: Drew Solis on 02-15-2023 Cholesterol in HDL [Mass/Vol] 92 mg/dL >40 [facility] Comment on above: The drugs N-Acetylcy steine and Metamizole may falsely depress this assay. Reference Range HDL <40 mg/dL Low HDL Cholesterol HDL >or= 60 mg/dL High HDL Cholesterol Serum or plasma cholesterol in VLDL measurement (mass/volume)Ordered By: Drew Solis on 02-15-2023 Cholesterol in VLDL [Mass/Vol] 28 mg/dL 5-40 [facility] Serum or plasma low density lipoprotein (LDL) cholesterol measurement (mass/volume)Ordered By: Drew Solis on 02-15-2023 Cholesterol in LDL [Mass/Vol] 76 mg/dL 0-130 [facility] Thin prep Papanicolaou smear with manual screeningOrdered By: Drew Solis on 02-15-2023 Thin prep Papanicolaou smear with manual screening 19 U/L 15-37 [facility] Iron measurement (mass/mass) Ordered By: Drew Solis on 02-14-2023 Iron (Unsp spec) [Mass/Mass] 23 ug/dL 50-170 [facility] Laboratory - Chemistry and C hemistry - challengeOrdered By: Jeniffer Campos on 02-14-2023 Cobalamin (Vitamin B12) [Mass/Vol] 199 pg/mL 211-911 [facility] No Panel InformationOrdered By: Drew Solis on 02-14-2023 Total Iron Binding Capacity 375 ug/dL 250-450 [facility] No Panel InformationOrdered By: Jeniffer Campos on 02-14-2023 Troponin I High Sensitivity 27 pg/mL 3.0-54.0 [facility] Comment on above: Please Note: New Sary t Units and Gender Specific Reference Ranges. For more information see Policy Stat Procedure [facility] High Sensitivity Troponin (TNIH) and attachments. Serum or plasma ferritin cortney surement (mass/volume)Ordered By: Derw Solis on 02-14-2023 Ferritin [Mass/Vol] 9 ng/mL 8-252 [facility] Serum or plasma folate measu rement (mass/volume)Ordered By: Jeniffer Campos on 02-14-2023 Folate [Mass/Vol] 7.40 ng/mL 3.1-55.4 [facility] Serum or plasma iron saturat ion measurement (mass fraction)Ordered By: Drew Solis on 02-14-2023 Iron saturation [Mass fraction] 6.1 % 15.0-55.0 [facility] Absolute lymphocyte countOrd ered By: Albert Carbone on 02-13-2023 Lymphocytes Auto (Unsp spec) [#/Vol] 1.92 10*3/uL 0.83-4.51 [facility] Basophil percentageOrdered B y: Albert Carbone on 02-13-2023 Potassium [Moles/Vol] 4.1 mmol/L 3.5-5.1 [facility] Basophils/100 WBC (Bld) 0.7 % 0-1 [facility] Chloride [Moles/Vol] 106 mmol/L 98-107 [facility] Eosinophils/100 WBC (Bld) 1.9 % 0-5 [facility] Glucose [Mass/Vol] 99 mg/dL 74-106 [facility] [place] Neutrophils (Bld) [#/Vol] 1.7 10*3/uL 2.0-7.7 [facility] Neutrophils/100 WBC (Bld) 39.8 % 47-70 [facility] Sodium [Moles/Vol] 136 mmol/L 136-145 [facility] [place] WBC (Bld) [#/Vol] 4.2 10*3/uL 4.4-11.0 [facility] [place] Blood erythrocytes count (nu mber/volume)Ordered By: Albert Carbone on 02-13-2023 RBC (Bld) [#/Vol] 5.13 10*6/uL 4.2-5.4 [facility] Blood hemoglobin measurement (mass/volume)Ordered By: Albert Carbone on 02-13-2023 Hemoglobin (Bld) [Mass/Vol] 12.2 g/dL 12.0-15.0 [facility] Blood lymphocytes/100 leukoc ytesOrdered By: Albert Carbone on 02-13-2023 Lymphocytes/100 WBC (Bld) 46.3 % 19-41 [facility] Blood monocytes/100 leukocyt esOrdered By: Albert Carbone on 02-13-2023 Monocytes/100 WBC (Bld) 10.8 % 0-10 [facility] Blood platelet mean volumeOr dered By: Albert Carbone on 02-13-2023 Platelet mean volume (Bld) [Entitic vol] 9.8 fL 6.2-12.0 [facility] Determination of erythrocyte mean corpuscular volume (MCV)Ordered By: Albert Carbone on 02-13-2023 MCV (RBC) [Entitic vol] 75.8 fL 81-99 [facility] Hematocrit Auto (Bld) [Volum e fraction]Ordered By: Albert Carbone on 02-13-2023 Hematocrit (Bld) [Volume fraction] 38.9 % 37-47 [facility] Laboratory - Chemistry and C hemistry - challengeOrdered By: Jeniffer Campos on 02-13-2023 Magnesium [Mass/Vol] 2.0 mg/dL 1.6-2.6 [facility] Laboratory - Chemistry and C hemistry - challengeOrdered By: Albert Carbone on 02-13-2023 CO2 [Moles/Vol] 23.0 mmol/L 21.0-32.0 [facility] Urea nitrogen/Creatinine [Mass ratio] 11.3 mg/mg 10-20 [facility] Laboratory - Drug toxicology Ordered By: Jeniffer Campos on 02-13-2023 Amphetamines Ql (U) Negative <1000 ng/mL [facility] Benzodiazepines Ql (U) Negative < 200 ng/mL [facility] Cannabinoids Screen Ql (U) Positive < 50 ng/mL [facility] Cocaine Ql (U) Negative < 300 ng/mL [facility] Opiates Ql (U) Negative < 300 ng/mL [facility] Laboratory - Hematology and Cell countsOrdered By: Albert Carbone on 02-13-2023 Erythrocyte distribution width (RBC) [Entitic vol] 47.8 fL 35.1-43.9 [facility] Erythrocyte distribution width (RBC) [Ratio] 18.0 % 11.6-14.6 [facility] Immature granulocytes/100 WBC (Bld) 0.500 % 0.0-0.9 [facility] Comment on above: IG% - Immature Granu locytes (promyelocytes, myelocytes and metamyelocytes) > 1% indicates that a LEFT SHIFT is Present. MCH (RBC) [Entitic mass] 23.8 pg 27.0-32.0 [facility] Nucleated RBC/100 WBC (Bld) [Ratio] 0 % 0-5 [facility] MCHC Auto (RBC) [Mass/Vol]Or dered By: Albert Carbone on 02-13-2023 MCHC (RBC) [Mass/Vol] 31.4 g/dL 32-36 [facility] No Panel InformationOrdered By: Jeniffer Campos on 02-13-2023 Ethyl Alcohol Level < 3.0 mg/dL [facility] Comment on above: The serum:whole bloo d ethanol ratio is approximately 1.14and varies slightly with hematocrit. Medical Alcohol reference interval and critical value innon-tolerant individuals; 50 - 100 Impairment 100 Intoxication 100 - 250 Severe Poisoning 250 - 400 Deep/possible fatal coma MDMA (Ecstasy) Screen Negative < 500 ng/mL [facility] Urine Barbiturates Screen Negative < 200 ng/mL [facility] Urine Drug Screen Comment [facility] Comment on above: CONFIRMATORY TESTING FOR ALL [...] Urine Methadone Screen Negative < 300 ng/mL [facility] No Panel InformationOrdered By: Albert Carbone on 02-13-2023 Estimated Creatinine Clearance Calc 50.85 ml/min [facility] Estimated GFR (MDRD) Amer 67 mL/min >60 [facility] Comment on above: GFR Calc Estimated GFR (MDRD) Non-Af Amer 56 mL/min >60 [facility] Comment on above: Non- GFR Calc Troponin I High Sensitivity 26 pg/mL 3.0-54.0 [facility] Comment on above: Please Note: New Sary t Units and Gender Specific Reference Ranges. For more information see Policy Stat Procedure [facility] High Sensitivity Troponin (TNIH) and attachments. Platelets bldOrdered By: Didier Carbone on 02-13-2023 Platelets (Bld) [#/Vol] 237 10*3/uL 150-450 [facility] Serum or plasma calcium angela urement (mass/volume)Ordered By: Albert Carbone on 02-13-2023 Calcium [Mass/Vol] 9.3 mg/dL 8.5-10.1 [facility] [place] Serum or plasma creatinine m easurement (mass/volume)Ordered By: Albert Carbone on 02-13-2023 Creatinine [Mass/Vol] 1.06 mg/dL 0.55-1.02 [facility] Comment on above: The validity of the calculated GFR & GFRAA in patients over 70 years has not been determined. Clinical correlation is essential. Serum or plasma urea nitroge n measurement (mass/volume)Ordered By: Albert Carbone on 02-13-2023 Urea nitrogen [Mass/Vol] 12 mg/dL 02-16 [facility] Thin prep Papanicolaou smear with manual screeningOrdered By: Albert Carbone on 02-13-2023 Thin prep Papanicolaou smear with manual screening 12-14 [facility] Urine phencyclidine (PCP) de tectionOrdered By: Jeniffer Campos on 02-13-2023 Phencyclidine Ql (U) Negative < 25 ng/mL [facility] Absolute lymphocyte countOrd ered By: Dr. Tom on 10-22-2022 Lymphocytes Auto (Unsp spec) [#/Vol] 2.07 10*3/uL 0.83-4.51 [facility] Basophil percentageOrdered B y: Dr. Tom on 10-22-2022 Basophil percentage 0-5 SEEN /hpf 0-5 [facility] Basophils/100 WBC (Bld) 0.6 % 0-1 [facility] Bilirubin [Mass/Vol] 0.30 mg/dL 0.20-1.00 [facility] Comment on above: For patients on eltr ombopag therapy, use of Dimension [facility] TBIL is not recommended. Chloride [Moles/Vol] 109 mmol/L 98-107 [facility] Eosinophils/100 WBC (Bld) 2.5 % 0-5 [facility] Glucose [Mass/Vol] 106 mg/dL 74-106 [facility] [place] Comment on above: Fasting Glucose resu lt from 100 to 125 mg/dL suggests IMPAIRED HOMEOSTASIS per A.D.A. criteria. Neutrophils (Bld) [#/Vol] 2.2 10*3/uL 2.0-7.7 [facility] Neutrophils/100 WBC (Bld) 45.8 % 47-70 [facility] Potassium [Moles/Vol] 3.8 mmol/L 3.5-5.1 [facility] Protein [Mass/Vol] 7.0 g/dL 6.4-8.2 [facility] [place] Sodium [Moles/Vol] 139 mmol/L 136-145 [facility] [place] WBC (Bld) [#/Vol] 4.8 10*3/uL 4.4-11.0 [facility] [place] Bilirubin Test strip Ql (U)O rdered By: Dr. Tom on 10-22-2022 Bilirubin Ql (U) Negative Negative [facility] Blood erythrocytes count (nu mber/volume)Ordered By: Dr. Tom on 10-22-2022 RBC (Bld) [#/Vol] 4.84 10*6/uL 4.2-5.4 [facility] Blood hemoglobin measurement (mass/volume)Ordered By: Dr. Tom on 10-22-2022 Hemoglobin (Bld) [Mass/Vol] 12.2 g/dL 12.0-15.0 [facility] Blood lymphocytes/100 leukoc ytesOrdered By: Dr. Tom on 10-22-2022 Lymphocytes/100 WBC (Bld) 43.4 % 19-41 [facility] Blood monocytes/100 leukocyt esOrdered By: Dr. Tom on 10-22-2022 Monocytes/100 WBC (Bld) 7.5 % 0-10 [facility] Blood platelet mean volumeOr dered By: Dr. Tom on 10-22-2022 Platelet mean volume (Bld) [Entitic vol] 9.1 fL 6.2-12.0 [facility] Determination of erythrocyte mean corpuscular volume (MCV)Ordered By: Dr. Tom on 10-22-2022 MCV (RBC) [Entitic vol] 77.9 fL 81-99 [facility] Hematocrit Auto (Bld) [Volum e fraction]Ordered By: Dr. Tom on 10-22-2022 Hematocrit (Bld) [Volume fraction] 37.7 % 37-47 [facility] Ketones Test strip Ql (U)Ord ered By: Dr. Tom on 10-22-2022 Ketones Ql (U) Negative Negative [facility] Laboratory - Chemistry and C hemistry - challengeOrdered By: Dr. Tom on 10-22-2022 ALP [Catalytic activity/Vol] 95 U/L 45-117 [facility] ALT [Catalytic activity/Vol] 15 U/L 13-56 [facility] CO2 [Moles/Vol] 22.0 mmol/L 21.0-32.0 [facility] Globulin (S) [Mass/Vol] 3.4 g/dL 2.2-4.2 [facility] Lipase [Catalytic activity/Vol] 182 U/L 73-393 [facility] Urea nitrogen/Creatinine [Mass ratio] 15.2 mg/mg 10-20 [facility] Laboratory - Hematology and Cell countsOrdered By: Dr. Tom on 10-22-2022 Erythrocyte distribution width (RBC) [Entitic vol] 47.2 fL 35.1-43.9 [facility] Erythrocyte distribution width (RBC) [Ratio] 17.1 % 11.6-14.6 [facility] Immature granulocytes/100 WBC (Bld) 0.200 % 0.0-0.9 [facility] Comment on above: IG% - Immature Granu locytes (promyelocytes, myelocytes and metamyelocytes) > 1% indicates that a LEFT SHIFT is Present. MCH (RBC) [Entitic mass] 25.2 pg 27.0-32.0 [facility] Nucleated RBC/100 WBC (Bld) [Ratio] 0 % 0-5 [facility] MCHC Auto (RBC) [Mass/Vol]Or dered By: Dr. Tom on 10-22-2022 MCHC (RBC) [Mass/Vol] 32.4 g/dL 32-36 [facility] Mucus LM Ql (Urine sed)Order ed By: Dr. Tom on 10-22-2022 Mucus Ql (Urine sed) 0 SEEN /hpf [facility] Nitrite Test strip Ql (U)Ord ered By: Dr. Tom on 10-22-2022 Nitrite Ql (U) Negative Negative [facility] No Panel InformationOrdered By: Dr. Tom on 10-22-2022 Estimated Creatinine Clearance Calc 55.16 ml/min [facility] Estimated GFR (MDRD) Amer 73 mL/min >60 [facility] Comment on above: GFR Calc Estimated GFR (MDRD) Non-Af Amer 61 mL/min >60 [facility] Comment on above: Non- GFR Calc Troponin I High Sensitivity 27 pg/mL 3.0-54.0 [facility] Comment on above: Please Note: New Sary t Units and Gender Specific Reference Ranges. For more information see Policy Stat Procedure [facility] High Sensitivity Troponin (TNIH) and attachments. Platelets bldOrdered By: Dr. Tom on 10-22-2022 Platelets (Bld) [#/Vol] 276 10*3/uL 150-450 [facility] Protein Test strip Ql (U)Ord ered By: Dr. Tom on 10-22-2022 Protein Ql (U) 30 mg/dl Negative [facility] Serum or plasma albumin angela urement (mass/volume)Ordered By: Dr. Tom on 10-22-2022 Albumin [Mass/Vol] 3.6 g/dL 3.2-5.0 [facility] [place] Serum or plasma albumin/glob ulin mass ratioOrdered By: Dr. Tom on 10-22-2022 Albumin/Globulin [Mass ratio] 1.1 {ratio} 0.9-2.4 [facility] Serum or plasma calcium angela urement (mass/volume)Ordered By: Dr. Tom on 10-22-2022 Calcium [Mass/Vol] 9.3 mg/dL 8.5-10.1 [facility] [place] Serum or plasma creatinine m easurement (mass/volume)Ordered By: Dr. Tom on 10-22-2022 Creatinine [Mass/Vol] 0.99 mg/dL 0.55-1.02 [facility] Comment on above: The validity of the calculated GFR & GFRAA in patients over 70 years has not been determined. Clinical correlation is essential. Serum or plasma urea nitroge n measurement (mass/volume)Ordered By: Dr. Tom on 10-22-2022 Urea nitrogen [Mass/Vol] 15 mg/dL 7-18 [facility] Squamous epithelial cells de tection in urine sediment by light microscopyOrdered By: Dr. Tom on 10-22-2022 Epithelial cells.squamous LM Ql (Urine sed) 0-5 SEEN /hpf 5-10 [facility] Thin prep Papanicolaou smear with manual screeningOrdered By: Dr. Tom on 10-22-2022 Thin prep Papanicolaou smear with manual screening 16 U/L 15-37 [facility] Thin prep Papanicolaou smear with manual screening 8 5-15 [facility] Urine blood detectionOrdered By: Dr. Tom on 10-22-2022 RBC Ql (U) 150 /ul Negative [facility] RBC Ql (U) 0 SEEN /hpf 0-5 [facility] Urine clarityOrdered By: Dr. Tom on 10-22-2022 Clarity (U) Clear Clear [facility] Urine color determinationOrd ered By: Dr. Tom on 10-22-2022 Color (U) YELLOW Yellow [facility] Urine glucose detectionOrder ed By: Dr. Tom on 10-22-2022 Glucose Ql (U) Normal mg/dl Normal [facility] Urine leukocyte esterase det ection by dipstickOrdered By: Dr. Tom on 10-22-2022 Leukocyte esterase Test strip Ql (U) 500 /ul Negative [facility] Urine pHOrdered By: Dr. Porfirio li on 10-22-2022 pH (U) 7.0 [pH] 5.0 - 8.0 [facility] Urine sediment bacteria coun t by microscopy (number/high power field)Ordered By: Dr. Tom on 10-22-2022 Bacteria LM.HPF (Urine sed) [#/Area] 0 /[HPF] None Seen [facility] Urine specific gravity measu rementOrdered By: Dr. Tom on 10-22-2022 Specific gravity (U) [Rel density] 1.015 1.002-1.03 0 [facility] Urobilinogen Auto test strip Ql (U)Ordered By: Dr. Tom on 10-22-2022 Urobilinogen Ql (U) Normal mg/dl Normal [facility] Absolute lymphocyte countOrd ered By: Dr. Houston on 07-07-2022 Lymphocytes Auto (Unsp spec) [#/Vol] 2.12 10*3/uL 0.83-4.51 [facility] Basophil percentageOrdered B y: Dr. Houston on 07-07-2022 Basophils/100 WBC (Bld) 0.6 % 0-1 [facility] Bilirubin [Mass/Vol] 0.40 mg/dL 0.20-1.00 [facility] Comment on above: For patients on eltr ombopag therapy, use of Dimension [facility] TBIL is not recommended. Chloride [Moles/Vol] 101 mmol/L 98-107 [facility] Eosinophils/100 WBC (Bld) 1.5 % 0-5 [facility] Glucose [Mass/Vol] 100 mg/dL 74-106 [facility] [place] Comment on above: Fasting Glucose resu lt from 100 to 125 mg/dL suggests IMPAIRED HOMEOSTASIS per A.D.A. criteria. Neutrophils (Bld) [#/Vol] 2.2 10*3/uL 2.0-7.7 [facility] Neutrophils/100 WBC (Bld) 45.8 % 47-70 [facility] Potassium [Moles/Vol] 3.9 mmol/L 3.5-5.1 [facility] Protein [Mass/Vol] 7.0 g/dL 6.4-8.2 [facility] [place] Sodium [Moles/Vol] 134 mmol/L 136-145 [facility] [place] WBC (Bld) [#/Vol] 4.7 10*3/uL 4.4-11.0 [facility] [place] Blood erythrocytes count (nu mber/volume)Ordered By: Dr. Houston on 07-07-2022 RBC (Bld) [#/Vol] 4.94 10*6/uL 4.2-5.4 [facility] Blood hemoglobin measurement (mass/volume)Ordered By: Dr. Houston on 07-07-2022 Hemoglobin (Bld) [Mass/Vol] 13.1 g/dL 12.0-15.0 [facility] Blood lymphocytes/100 leukoc ytesOrdered By: Dr. Houston on 07-07-2022 Lymphocytes/100 WBC (Bld) 44.9 % 19-41 [facility] Blood monocytes/100 leukocyt esOrdered By: Dr. Houston on 07-07-2022 Monocytes/100 WBC (Bld) 7.0 % 0-10 [facility] Blood platelet mean volumeOr dered By: Dr. Houston on 07-07-2022 Platelet mean volume (Bld) [Entitic vol] 8.9 fL 6.2-12.0 [facility] Determination of erythrocyte mean corpuscular volume (MCV)Ordered By: Dr. Houston on 07-07-2022 MCV (RBC) [Entitic vol] 80.8 fL 81-99 [facility] Hematocrit Auto (Bld) [Volum e fraction]Ordered By: Dr. Houston on 07-07-2022 Hematocrit (Bld) [Volume fraction] 39.9 % 37-47 [facility] Laboratory - Chemistry and C hemistry - challengeOrdered By: Dr. Houston on 07-07-2022 ALP [Catalytic activity/Vol] 92 U/L 45-117 [facility] ALT [Catalytic activity/Vol] 16 U/L 13-56 [facility] CO2 [Moles/Vol] 24.0 mmol/L 21.0-32.0 [facility] Globulin (S) [Mass/Vol] 3.7 g/dL 2.2-4.2 [facility] Urea nitrogen/Creatinine [Mass ratio] 15.9 mg/mg 10-20 [facility] Laboratory - Hematology and Cell countsOrdered By: Dr. Houston on 07-07-2022 Erythrocyte distribution width (RBC) [Entitic vol] 50.6 fL 35.1-43.9 [facility] Erythrocyte distribution width (RBC) [Ratio] 17.2 % 11.6-14.6 [facility] Immature granulocytes/100 WBC (Bld) 0.200 % 0.0-0.9 [facility] Comment on above: IG% - Immature Granu locytes (promyelocytes, myelocytes and metamyelocytes) > 1% indicates that a LEFT SHIFT is Present. MCH (RBC) [Entitic mass] 26.5 pg 27.0-32.0 [facility] Nucleated RBC/100 WBC (Bld) [Ratio] 0 % 0-5 [facility] MCHC Auto (RBC) [Mass/Vol]Or dered By: Dr. Houston on 07-07-2022 MCHC (RBC) [Mass/Vol] 32.8 g/dL 32-36 [facility] No Panel InformationOrdered By: Dr. Houston on 07-07-2022 Estimated Creatinine Clearance Calc 48.32 ml/min [facility] Estimated GFR (MDRD) Amer 63 mL/min >60 [facility] Comment on above: GFR Calc Estimated GFR (MDRD) Non-Af Amer 52 mL/min >60 [facility] Comment on above: Non- GFR Calc Troponin I High Sensitivity 29 pg/mL 3.0-54.0 [facility] Comment on above: Please Note: New Sary t Units and Gender Specific Reference Ranges. For more information see Policy Stat Procedure [facility] High Sensitivity Troponin (TNIH) and attachments. Platelets bldOrdered By: Dr. Houston on 07-07-2022 Platelets (Bld) [#/Vol] 282 10*3/uL 150-450 [facility] Serum or plasma albumin angela urement (mass/volume)Ordered By: Dr. Houston on 07-07-2022 Albumin [Mass/Vol] 3.3 g/dL 3.2-5.0 [facility] [place] Serum or plasma albumin/glob ulin mass ratioOrdered By: Dr. Houston on 07-07-2022 Albumin/Globulin [Mass ratio] 0.9 {ratio} 0.9-2.4 [facility] Serum or plasma calcium angela urement (mass/volume)Ordered By: Dr. Houston on 07-07-2022 Calcium [Mass/Vol] 9.5 mg/dL 8.5-10.1 [facility] [place] Serum or plasma creatinine m easurement (mass/volume)Ordered By: Dr. Houston on 07-07-2022 Creatinine [Mass/Vol] 1.13 mg/dL 0.55-1.02 [facility] Comment on above: The validity of the calculated GFR & GFRAA in patients over 70 years has not been determined. Clinical correlation is essential. Serum or plasma urea nitroge n measurement (mass/volume)Ordered By: Dr. Houston on 07-07-2022 Urea nitrogen [Mass/Vol] 18 mg/dL 7-18 [facility] Thin prep Papanicolaou smear with manual screeningOrdered By: Dr. Houston on 07-07-2022 Thin prep Papanicolaou smear with manual screening 17 U/L 15-37 [facility] Thin prep Papanicolaou smear with manual screening 9 5-15 [facility] Basic metabolic 2000 panelon 01-01-2022 Anion gap [Moles/Vol] 10 mmol/L [facility] Calcium [Mass/Vol] 8.9 mg/dL 8.4 - [...] Inclusion of Race in Diagnosing Kidney Disease. [place] Journal of Kidney Diseases 202;79(2):268-88.e1. 2. N Engl J Med 1 Vol. 385 Issue 19 Pages 2358-4641 Glucose [Mass/Vol] 98 mg/dL 80 - 116 [...] 12-31-2021 Anion gap [Moles/Vol] 12 mmol/L [facility] Calcium [Mass/Vol] 9.3 mg/dL 8.4 - [...] Inclusion of Race in Diagnosing Kidney Disease. [place] Journal of Kidney Diseases 202;79(2):268-88.e1. 2. N Engl J Med 2020 Vol. 385 Issue 19 Pages [id number] Glucose [Mass/Vol] 115 mg/dL 80 - 116 [...] 12-30-2021 Anion gap [Moles/Vol] 14 mmol/L [facility] Calcium [Mass/Vol] 9.5 mg/dL 8.4 - [...] Inclusion of Race in Diagnosing Kidney Disease. [place] Journal of Kidney Diseases 2021;79(2):268-88.e1. 2. N Engl J Med 2020 Vol. 385 Issue 19 Pages 4157-4952 Glucose [Mass/Vol] 100 mg/dL 80 - 116 [...] YUMIKO LUGO ([id number]) on 12/30/2021 7:42:32 PM [facility] P wave [facility] by EKG 95 BPM [facility] P wave axis 58 degrees [facility] P-R Interval 142 ms [facility] Q-T interval 372 ms [facility] Q-T interval corrected 467 ms [facility] [facility] QRS axis -2 degrees [facility] QRS duration 70 ms [facility] T wave axis 56 degrees [facility] MAGNESIUMon 12-30-2021 Interpretation and review of laboratory [...] Interpretation and review of laboratory results [facility] IRON AND TIBCon 12-29-2021 Interpretation and [...] panelon 12-28-2021 Anion gap [Moles/Vol] 17 mmol/L [facility] Calcium [Mass/Vol] 9.3 mg/dL 8.4 - [...] Inclusion of Race in Diagnosing Kidney Disease. [place] Journal of Kidney Diseases 2021;79(2):268-88.e1. 2. N Engl J Med 2020 Vol. 385 Issue 19 Pages [phone] Glucose [Mass/Vol] 112 mg/dL 80 - 116 [...] SST TUBE, BLOODon 12-28-2021 Extra Tube Done [facility] HEPATIC FUNCTION PANELon Albumin [Mass/Vol] 3.3 g/dL [...] [Mass/Vol] 5.7 g/dL 5.7 - 8.1 g/dL [facility] LIPASEon 12-28-2021 Interpretation and review of laboratory results Normal [facility] Lipase [Catalytic activity/Vol] 23 U/L <128 IU/L [facility] POTASSIUM, WHOLE BLOODOrdere d By: Razia De Anda on 12-28-2021 Interpretation and review of laboratory results Normal [facility] Potassium [Moles/Vol] 3.7 mmol/L 3.3 - 5.3 mmol/L [facility] TROPONIN Ion 12-28-2021 Interpretation and review of laboratory results Normal [facility] Troponin I.cardiac DL <= 0.01 ng/mL [Mass/Vol] ng/mL <0.120 ng/mL [facility] Comment on above: Range <=0.04 ng/mL: Negative [...] injury. Interpretation: Clinical and laboratory correlation recommended. [facility] DRUGUon 07-05-2019 Drug Screen Urine Positive [facility]) Comment on above: Performed By: #### D RUGU #### [address] [address] Drug Screen Urine Interp Positive [facility]) Comment on above: Performed By: #### D RUGU #### [address] [address] U pH Drug Scrn 6.0 Normal 5.0-8.0 [facility] [place] Comment on above: Performed By: #### D RUGU #### [address] [address] U Specific [place] Drg Scrn 1.030 Normal 1.005-1.03 0 [facility] ([place] Comment on above: Performed By: #### D RUGU #### [address] [address] Urine Drugs screened: See Below Normal [facility] ([place]) Comment on above: Result Comment: This drug [...] ONLY. Performed By: #### D MARTY #### [place] [address] .Auto Diffon 06-13-2019 Ammonia (P) [Mass/Vol] 0.30 10 3/mcL Normal 0.15-1.00 [facility] ([place] Comment on above: Performed By: #### WILL CARRINGTON ANEU #### [address] [address] Basophils (Bld) [#/Vol] 0.00 10 3/mcL Normal 0.00-0.19 [facility] [place] Comment on above: Performed By: ###WILL NO ANEU #### [address] [address] Basophils/100 WBC (Bld) 0.8 % Normal 0.0-2.5 [facility] ([place] Comment on above: Performed By: #### WILL CARRINGTON ANEU #### [address] [address] Eosinophils (Bld) [#/Vol] 0.10 10 3/mcL Normal 0.00-0.40 [facility] ([place] Comment on above: Performed By: #### WILL CARRINGTON ANEU #### [address] [address] Eosinophils/100 WBC (Bld) 3.4 % Normal 0.0-7.0 [facility] ([place] Comment on above: Performed By: #### WILL CARRINGTON ANEU #### [address] [address] Lymphocytes (Bld) [#/Vol] 1.60 10 3/mcL Normal 0.77-3.85 [facility] ([place]) Comment on above: Performed By: #### WILL CARRINGTON, ANEU #### [address] [address] Lymphocytes/100 WBC (Bld) 37.7 % Normal 10.0-50.0 [facility] ([place]) Comment on above: Performed By: #### C WILL MCLAUGHLIN, ANEU #### [address] [address] Monocytes/100 WBC (Bld) 8.0 % Normal 1.7-13.0 [facility] ([place] Comment on above: Performed By: #### WILL CARRINGTON, ANEU #### [address] [address] Neutrophils/100 WBC (Bld) 50.1 % Normal 37.0-80.0 [facility] ([place] Comment on above: Performed By: #### C WILL MCLAUGHLIN, ANEU #### [address] [address] .NEUABSon 06-13-2019 Neutrophils (Bld) [#/Vol] 2.10 10 3/mcL Low 2.85-6.16 [facility] ([place]) Comment on above: Performed By: #### C WILL MCLAUGHLIN, ANEU #### [address] [address] CBCon 06-13-2019 Erythrocyte distribution width (RBC) [Ratio] 20.2 % High 11.5-14.5 [facility] ([place]) Comment on above: Performed By: #### WILL CARRINGTON, ANEU #### [address] [address] Hematocrit (Bld) [Volume fraction] 33.7 % Low 37.0-47.0 [facility] ([place] Comment on above: Performed By: #### WILL CARRINGTON, ANEU #### [place] [id number] Hemoglobin (Bld) [Mass/Vol] 10.7 G/dL Low 12.0-16.0 [facility] [place] Comment on above: Performed By: #### C WILL MCLAUGHLIN, ANEU #### [address] [address] MCH (RBC) [Entitic mass] 24.6 pg Low 27.0-31.2 [facility] ([place] Comment on above: Performed By: #### C WILL MCLAUGHLIN, ANEU #### [address] [address] MCHC (RBC) [Mass/Vol] 31.8 G/dL Low 33.0-37.0 [facility] ([place] Comment on above: Performed By: #### WILL CARRINGTON, ANEU #### [address] [address] MCV (RBC) [Entitic vol] 77.3 fL Low 80.0-94.0 [facility] ([place] Comment on above: Performed By: #### WILL CARRINGTON, ANEU #### [address] [address] Platelet mean volume (Bld) [Entitic vol] 7.1 fL Low 7.4-10.4 [facility] ([place] Comment on above: Performed By: #### WILL CARRINGTON, ANEU #### [address] [address] Platelets (Bld) [#/Vol] 316 10 3/mcL Normal 130-400 [facility] ([place] Comment on above: Performed By: #### C WILL MCLAUGHLIN, ANEU #### [address] [address] RBC (Bld) [#/Vol] 4.35 10 6/mcL Normal 4.20-5.40 [facility] ([place]) Comment on above: Performed By: #### WILL CARRINGTON, ANEU #### [address] [address] WBC (Bld) [#/Vol] 4.20 10 3/mcL Low 4.60-10.80 [facility] ([place] Comment on above: Performed By: #### C WILL MCLAUGHLIN ANEU #### [place] [address] [address] Vital Signs Date Time Vital Sign Value Performing Clinician Facility 11-16-2023 18:19-0400 Body temperature 97.8 [degF] [facility] 11-16-2023 18:19-0400 Diastolic blood pressure 75 mm[Hg] [facility] 11-16-2023 18:19-0400 Heart rate 81 /min [facility] 11-16-2023 18:19-0400 Respiratory rate 16 /min [facility] 11-16-2023 18:19-0400 SaO2% (BldA) [Mass fraction] 96 % [facility] 11-16-2023 18:19-0400 Systolic blood pressure 117 mm[Hg] [facility] 11-16-2023 13:37-0400 Body height 167.64 cm [facility] 11-16-2023 13:37-0400 Body mass index (BMI) [Ratio] 24.2 kg/m2 [facility] 11-16-2023 13:37-0400 Body weight 68.03 kg [facility] 03-23-2023 21:05-0400 Diastolic blood pressure 87 mm[Hg] No Primary Care Physician [facility] 03-23-2023 21:05-0400 Heart rate 70 /min No Primary Care Physician [facility] 03-23-2023 21:05-0400 Respiratory rate 16 /min No Primary Care Physician [facility] 03-23-2023 21:05-0400 SaO2% (BldA) [Mass fraction] 100 % No Primary Care Physician [facility] 03-23-2023 21:05-0400 Systolic blood pressure 133 mm[Hg] No Primary Care Physician [facility] 03-23-2023 18:25-0400 Body temperature 98.1 [degF] No Primary Care Physician [facility] 03-23-2023 16:26-0400 Body height 167.64 cm No Primary Care Physician [facility] 03-23-2023 16:26-0400 Body mass index (BMI) [Ratio] 26 kg/m2 No Primary Care Physician [facility] 03-23-2023 16:26-0400 Body weight 73.2 kg No Primary Care Physician [facility] 03-09-2023 09:07-0400 Body height 167.6 cm Hilton Johnson MD Work Phone: [facility] 03-09-2023 09:07-0400 Body mass index (BMI) [Ratio] 26.47 kg/m2 Hilton Johnson MD Work Phone: [facility] 03-09-2023 09:07-0400 Body temperature 97.9 [degF] Hilton Johnson MD Work Phone: [facility] 03-09-2023 09:07-0400 Body weight 74.39 kg Hilton Johnson MD Work Phone: [facility] 03-09-2023 09:07-0400 Diastolic blood pressure 66 mm[Hg] Hilton Johnson MD Work Phone: [facility] 03-09-2023 09:07-0400 Heart rate 76 /min Hilton Johnson MD Work Phone: [facility] 03-09-2023 09:07-0400 Systolic blood pressure 116 mm[Hg] Hilton Johnson MD Work Phone: [facility] 02-16-2023 09:23-0400 Body temperature 97.9 [degF] No Primary Care Physician [facility] 02-16-2023 09:23-0400 Diastolic blood pressure 73 mm[Hg] No Primary Care Physician [facility] 02-16-2023 09:23-0400 Heart rate 73 /min No Primary Care Physician [facility] 02-16-2023 09:23-0400 Respiratory rate 16 /min No Primary Care Physician [facility] 02-16-2023 09:23-0400 SaO2% (BldA) [Mass fraction] 100 % No Primary Care Physician [facility] 02-16-2023 09:23-0400 Systolic blood pressure 119 mm[Hg] No Primary Care Physician [facility] 02-16-2023 03:22-0400 Body mass index (BMI) [Ratio] 27.7 kg/m2 No Primary Care Physician [facility] 02-16-2023 03:22-0400 Body weight 77.9 kg No Primary Care Physician [facility] 02-14-2023 10:27-0400 Body height 167.64 cm No Primary Care Physician [facility] 02-13-2023 20:55-0400 Body temperature 96.8 [degF] [facility] 02-13-2023 20:55-0400 Diastolic blood pressure 80 mm[Hg] [facility] 02-13-2023 20:55-0400 Heart rate 82 /min [facility] 02-13-2023 20:55-0400 Respiratory rate 18 /min [facility] 02-13-2023 20:55-0400 SaO2% (BldA) [Mass fraction] 98 % [facility] 02-13-2023 20:55-0400 Systolic blood pressure 122 mm[Hg] [facility] 02-13-2023 19:21-0400 Body height 167.64 cm [facility] 02-13-2023 19:21-0400 Body mass index (BMI) [Ratio] 27.6 kg/m2 [facility] 02-13-2023 19:21-0400 Body weight 77.6 kg [facility] 10-22-2022 13:13-0400 Diastolic blood pressure 84 mm[Hg] [facility] 10-22-2022 13:13-0400 Heart rate 88 /min [facility] 10-22-2022 13:13-0400 Respiratory rate 16 /min [facility] 10-22-2022 13:13-0400 SaO2% (BldA) [Mass fraction] 100 % [facility] 10-22-2022 13:13-0400 Systolic blood pressure 126 mm[Hg] [facility] 10-22-2022 11:50-0400 Body mass index (BMI) [Ratio] 27.4 kg/m2 [facility] 10-22-2022 11:50-0400 Body weight 77.1 kg [facility] 10-22-2022 10:07-0400 Body height 167.64 cm [facility] 10-22-2022 10:07-0400 Body temperature 97.9 [degF] [facility] 10-09-2022 17:22-0500 Body height 167.64 cm [facility] 10-09-2022 17:22-0500 Body mass index (BMI) [Ratio] 28.2 kg/m2 [facility] 10-09-2022 17:22-0500 Body temperature 98.6 [degF] [facility] 10-09-2022 17:22-0500 Body weight 79.37 kg [facility] 10-09-2022 17:22-0500 Diastolic blood pressure 79 mm[Hg] [facility] 10-09-2022 17:22-0500 Heart rate 110 /min [facility] 10-09-2022 17:22-0500 Respiratory rate 18 /min [facility] 10-09-2022 17:22-0500 SaO2% (BldA) [Mass fraction] 99 % [facility] 10-09-2022 17:22-0500 Systolic blood pressure 110 mm[Hg] [facility] 07-07-2022 15:21-0500 Body temperature 98 [degF] [facility] 07-07-2022 15:21-0500 Diastolic blood pressure 87 mm[Hg] [facility] 07-07-2022 15:21-0500 Heart rate 85 /min [facility] 07-07-2022 15:21-0500 Respiratory rate 16 /min [facility] 07-07-2022 15:21-0500 SaO2% (BldA) [Mass fraction] 100 % [facility] 07-07-2022 15:21-0500 Systolic blood pressure 114 mm[Hg] [facility] 07-07-2022 12:17-0500 Body height 167.64 cm [facility] Work Phone: 07-07-2022 12:17-0500 Body mass index (BMI) [Ratio] 28.4 kg/m2 [facility] 07-07-2022 12:17-0500 Body weight 79.83 kg [facility] 01-01-2022 06:00-0400 Body temperature 97.59 [degF] Wayne Benton MD Work Phone: [employer] 01-01-2022 06:00-0400 Diastolic blood pressure 84 mm[Hg] Wayne Benton MD Work Phone: [employer] 01-01-2022 06:00-0400 Heart rate 76 /min Wayne Benton MD Work Phone: [employer] 01-01-2022 06:00-0400 Respiratory rate 18 /min Wayne Benton MD Work Phone: [employer] 01-01-2022 06:00-0400 SaO2% (BldA) [Mass fraction] 100 % Wayne Benton MD Work Phone: [employer] 01-01-2022 06:00-0400 Systolic blood pressure 137 mm[Hg] Wayne Benton MD Work Phone: [facility] 12-30-2021 20:07-0400 Heart rate 95 /min Wayne Benton MD Work Phone: [employer] 12-29-2021 17:59-0400 Body height 167.6 cm Wayne Benton MD Work Phone: [employer] 12-29-2021 17:59-0400 Body mass index (BMI) [Ratio] 31.05 kg/m2 Wayne Benton MD Work Phone: [employer] 12-29-2021 17:59-0400 Body weight 87.27 kg Wayen Benton MD Work Phone: [facility] Encounters Encounter Date Encounter Type Care Provider Facility Start: 06-13-2025 ambulatory No Primary Car e Physician Facility:[facility] Start: 05-31-2025 End: 05-31-2025 ambulatory No Primary Care Physician Facility:[facility] Start: 04-26-2025 ambulatory No Primary Car e Physician Facility:[facility] Start: 04-26-2025 End: 04-26-2025 ambulatory No Primary Care Physician Facility:[facility] Start: 03-27-2025 End: 03-27-2025 ambulatory Stoney Chi Tristan Facility:[facility] Start: 03-05-2025 End: 03-05-2025 ambulatory No Primary Care Physician Facility:[facility] Start: 03-05-2025 End: 03-05-2025 ambulatory Azalea Peggy [facility] Facility:[facility] Start: 01-26-2025 ambulatory Virginie Aguillon [facility] Start: 01-26-2025 End: 01-27-2025 Evaluation and management of inpatient No Primary Care Physician Facility:[facility] Start: 01-25-2025 ambulatory Virginie Aguillon [facility] Start: 12-15-2024 End: 12-15-2024 ambulatory Stoney Chi Tristan Facility:[facility] Start: 10-10-2024 End: 10-10-2024 ambulatory Tsoney Chi Tristan Facility:[facility] Start: 08-30-2024 End: 08-30-2024 ambulatory Stoney Chi Tristan Facility:[facility] Start: 08-26-2024 End: 08-26-2024 Emergency department patient visit Stoney Chi Tristan Facility:[facility] Start: 08-22-2024 End: 08-22-2024 ambulatory Stoney Chi Tristan Facility:[facility] Start: 07-20-2024 End: 07-20-2024 ambulatory Stoney Chi Tristan Facility:[facility] Start: 07-19-2024 End: 07-19-2024 ambulatory Stoney Chi Tristan Facility:[facility] Start: 06-08-2024 End: 06-08-2024 ambulatory BUNNY YO MD Facility:[facility] Start: 06-08-2024 End: 06-08-2024 Patient encounter procedure BUNNY YO MD [facility] Start: 02-08-2024 End: 02-18-2024 Refill Hilton Johnson MD Work Phone: [facility] Comment on above: Refill Refill; Reference 99 Start: 01-21-2024 End: 01-21-2024 Telephone encounter To Be Assigned [facility] Physicia n Referral Service Comment on above: Update Start: 01-05-2024 End: 01-06-2024 Refill Hilton Johnson MD Work Phone: [facility] Comment on above: Refill Start: 12-21-2023 End: 12-23-2023 Refill Hilton Johnson MD Work Phone: [facility] Comment on above: Refill Start: 12-01-2023 Emergency department patient visit JEANA QUINTANA Facility:[facility] Start: 11-24-2023 Refill Hilton Johnson MD Work Phone: [facility] Comment on above: Refill Start: 11-16-2023 End: 11-16-2023 Emergency department patient visit [facility] Work Phone: Start: 11-12-2023 Letter encounter Patrizia SMALL [facility] Start: 10-25-2023 Refill Hilton Johnson MD Other Phone: [facility] Comment on above: Refill Start: 05-28-2023 Telephone encounter Hilton smiley MD Work Phone: [facility] Comment on above: Medical Record Revie w Start: 03-23-2023 End: 03-23-2023 Emergency department patient visit No Primary Care Physician [facility] Work Phone: Start: 03-15-2023 Telephone encounter Hilton smiley MD Work Phone: [facility] Comment on above: Med Change Request Start: 03-10-2023 Telephone encounter Hilton smiley MD Work Phone: [facility] Start: 03-09-2023 End: 03-09-2023 Initial preventive medicine new patient 40-64yrs Hilton Johnson MD Work Phone: [facility] Comment on above: Routine adult health maintenance (Primary Dx); Lipid screening; 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-en-Y gastric bypass; Postoperative malabsorption; Cervical spondylosis without myelopathy; Primary osteoarthritis of right knee; Anastomotic ulcer S/P gastric bypass; Calculus of gallbladder without cholecystitis without obstruction; Generalized abdominal pain; Dizziness; Prediabetes; Body mass index (BMI) 26.0-26.9, adult Start: 03-09-2023 End: 03-09-2023 Patient encounter status Hilton Johnson MD Work Phone: [facility] Start: 03-09-2023 End: 03-09-2023 ambulatory UNKNOWN PROVIDER Facility:[facility] Start: 03-02-2023 Emergency department patient visit Rock Sharpe MD Work Phone: [facility] Emergency Medicine Comment on above: Refill Start: 03-01-2023 Registered Referred No Primary Care Physician [facility]Cardi[facility] Services Work Phone: Start: 02-24-2023 Telephone encounter Rock anthony MD Work Phone: [facility] Emergency Triage, Treat and Transport Comment on above: Requesting Medicatio ns Start: 02-16-2023 Non-patient / Non-visit No [facility] Physician [facility] Work Phone: Start: 02-15-2023 Non-patient / Non-visit No [facility] Physician [facility] Work Phone: Start: 02-15-2023 Non-patient / Non-visit No [facility] Start: 02-14-2023 Non-patient / Non-visit No [facility] Work Phone: Start: 02-13-2023 End: 02-16-2023 Evaluation and management of inpatient [facility]-Progressive Care Unit Work Phone: Start: 02-13-2023 End: 02-16-2023 observation encounter No Primary Care Physician [facility] Work Phone: Start: 10-22-2022 End: 10-22-2022 Emergency department patient visit [facility]Emer[facility] Start: 10-09-2022 End: 10-09-2022 Emergency department patient visit [facility] Start: 07-07-2022 End: 07-07-2022 Emergency department patient visit [facility] Start: 02-26-2022 Telephone encounter To Be Assigned [facility] Physician Referral Service Comment on above: Left Message To Call Back Start: 12-28-2021 End: 01-01-2022 Evaluation and management of inpatient Wayne Benton MD Work Phone: Inpatient [phone] Comment on above: Gastrointestinal hem orrhage, unspecified gastrointestinal hemorrhage type (Primary Dx); Syncope and collapse; Peptic ulcer; 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-en-Y gastric bypass; Anastomotic ulcer; Chronic iron deficiency anemia Start: 03-05-2021 Patient encounter status [facility] Procedures Date Procedure Procedure Detail Performing Clinician [...] Start: 05-02-2024 Influenza vaccination Influenza Vaccine (#1) [facility] Start: 03-23-2024 Creatinine measurement Basic Metabolic Panel [facility] Start: 03-09-2024 Creatinine measurement Basic Metabolic Panel [facility] Start: 03-09-2024 Hemoglobin A1c measurement Hemoglobin A1C [facility] Start: 02-24-2024 End: 02-24-2024 Patient encounter procedure 02/24/2024 1:00 PM EDT Office Visit [place] [id number] Randall Hodgson MD [address] [place] [address] [facility] Start: 01-31-2024 Creatinine measurement Basic Metabolic Panel [facility] Start: 11-16-2023 [facility] Start: 07-05-2023 End: 07-05-2023 Patient encounter procedure 07/05/2023 11:00 AM EST Office Visit [place] [id number] Gabriel Ugarte MD [address] [place], [place] [id number] [facility] Start: 05-02-2023 Influenza vaccination Influenza Vaccine (#1) [facility] Start: 05-02-2023 End: 07-10-2023 Lipid 1996 panel - Serum or Plasma FULL LIPID PROFILE Lab Routine Hyperlipidemia, unspecified hyperlipidemia type Expected: 05/02/2023, Expires: 07/10/2023 [facility] Work Phone: Comment on above: Expected: 05/02/2023, Expires: Start: 04-02-2023 COVID-19 Vaccine () COVID-19 Vaccine () [facility] Start: 04-02-2023 Influenza vaccination Influenza Vaccine (#1) [facility] Start: 03-09-2023 End: 03-09-2023 Patient encounter procedure 03/09/2023 9:20 [place] [address] Hilton Johnson MD [address] [place] [address] [facility] Start: 02-16-2023 Patient discharge [facility] Start: 02-14-2023 End: 02-15-2023 [facility] Start: 02-13-2023 Following clinical pathway protocol [facility] Start: 02-13-2023 Assessment of risk of venous thromboembolism [facility] Start: 02-13-2023 Cardiac monitoring [facility] Start: 02-13-2023 Fall prevention [facility] Start: 02-13-2023 Inhalation therapy procedure [facility] Start: 02-13-2023 Insertion of catheter into peripheral vein [facility] Start: 02-13-2023 Introduction of urinary catheter [facility] Start: 02-13-2023 Measuring intake and output [facility] Start: 02-13-2023 Oxygen therapy [facility] Start: 02-13-2023 Providing care according to standard [facility] Start: 02-13-2023 Provision of activity privileges [facility] Start: 02-13-2023 Referral to service [facility] Start: 02-13-2023 Tobacco use cessation education [facility] Start: 02-13-2023 End: 02-13-2023 [facility] Start: 02-13-2023 Verification routine [facility] Start: 02-13-2023 Admission procedure [facility] Start: 02-13-2023 [facility] Start: 02-13-2023 Patient referral to dietitian [facility] Start: 01-01-2023 Basic metabolic 2000 panel - Serum or Plasma [facility] Start: 09-16-2022 Shingles (RZV) Vaccine (2 of 2) Shingles (RZV) Vaccine (2 of 2) [facility] Start: 07-07-2022 [facility] Start: 06-22-2022 Hemoglobin A1c measurement [facility] Start: 05-02-2022 Influenza vaccination Influenza Vaccine (#1) [facility] Start: 02-19-2022 End: 02-19-2022 Patient encounter procedure 02/19/2022 Office Visit Gastroenterology Mary Ellen Miller MD [address] [facility] [place] [address] [facility] Start: 01-14-2022 End: 01-14-2022 Patient encounter procedure 01/14/2022 Office Visit Internal Medicine Macy Smith DO [address] [place] [address] [facility] Start: 04-05-2021 COVID-19 Vaccine (3 - Booster for Pfizer series) COVID-19 Vaccine (3 - Booster for Pfizer series) [facility] Start: 12-29-2020 COVID-19 Vaccine (3 - Booster for Pfizer series) COVID-19 Vaccine (3 - Booster for Pfizer series) [facility] Start: 12-29-2020 COVID-19 Vaccine (3 - Pfizer [...] (2 of 2 - [facility]-dose series[facility] Start: 11-02-2018 Cholesterol [Mass/volume] in Serum or Plasma Cholesterol [facility] Start: 07-17-2016 Screening for malignant neoplasm of [...] Pneumococcal vaccination Pneumococcal Vaccine(s) (1 - PCV) [facility] 25 hydroxy includes fractions if performed VITAMIN D, 25-HYDROXY Lab Routine Postoperative malabsorption Ordered: 03/09/2023 [facility] Comment on above: Ordered: 03/09/2023 Amphetamine [Mass/volume] in Urine [facility] Assay of ferritin FERRITIN Lab R outine Postoperative malabsorption Ordered: 03/09/2023 [facility] Work Phone: Comment on above: Ordered: 03/09/2023 Assay of magnesium MAGNESIUM Lab STAT Daily until discontinued starting 12/30/2021, 3 completed [facility] Comment on above: Daily until discontinued starting 2021, 3 completed Basic metabolic 2000 panel - Serum or Plasma BASIC METABOLIC PANEL Lab STAT Daily until discontinued starting 12/30/2021, 3 completed [facility] Work Phone: Comment on above: Daily until discontinued starting 2021, 3 completed Basic metabolic 2000 panel - Serum or Plasma BASIC METABOLIC PANEL Lab Routine Postoperative malabsorption Ordered: 03/09/2023 [facility] Comment on above: Ordered: 03/09/2023 Benzodiazepine measurement, urine [facility] Bilirubin measuremen t, urine [facility] Blood count complete auto&auto difrntl wbc CBC WITH DIFFERENTIAL Lab Only Routine Postoperative malabsorption 03/09/2023 10:26 AM EDT [facility] Cardiac event recording [facility] CBC W Auto Different ial panel - Blood COMPLETE BLOOD COUNT W/DIFF Lab Routine Postoperative malabsorption 03/09/2023 10:26 AM EDT [facility] Cocaine measurement, urine [facility] Cyanocobalamin vitam in b-12 VITAMIN B12 (CYANOCOBALAMIN) Lab Routine Postoperative malabsorption Ordered: 03/09/2023 [facility] Comment on above: Ordered: 03/09/2023 DARK BLUE [...] (BMI) 26.0-26.9, adult 03/09/2023 2:14 PM EDT [facility] Diabetes tracking panel HEMOGLOB IN A1C Lab Routine Prediabetes 03/09/2023 10:26 AM EDT [facility] Ethanol [Mass/volume ] in Serum or Plasma [facility] End: 12-28-2021 EXTRA TUBE EXTRA TUBE Lab Only Routine One time for 1 Occurrences starting 12/28/2021 until 12/28/2021 [facility] [employer] [facility] Work Phone: Comment on above: One [...] (BMI) 26.0-26.9, adult 03/09/2023 2:14 PM EDT [facility] Hemoglobin [Presence ] in Urine [facility] Lipid 1996 panel - Serum or Plasma FULL LIPID PROFILE Lab Routine Lipid screening Ordered: 03/09/2023 [facility] Comment on above: Ordered: 03/09/2023 Measurement of 3,4-methylenedioxymetha mphetamine in urine [facility] Measurement of keton es in urine using dipstick [facility] Methadone measuremen t, urine [facility] Microscopic urinalysis [facility] Patient Education [facility] Work Phone: Patient referral [facility] Work Phone: pH of Urine [facility] pH of Urine [facility] Phencyclidine [Presence] in Urine [facility] Specific gravity of Urine [facility] Urinalysis, blood, qualitative [facility] Urine barbiturate measurement [facility] Urine cannabinoid measurement [facility] Urine dipstick for glucose [facility] Urine dipstick for leukocyte esterase [facility] Urine dipstick for nitrite [facility] Urine dipstick for protein [facility] Urine examination [facility] Urine microscopy: epithelial cells [facility] Urine Microscopy: wh ite cells [facility] Urine opiate measurement [facility] Urobilinogen [Presen ce] in Urine [facility] Immunizations Immunization Date Immunization Notes [facility]23 Hemoglobin A1C Hilton Cartwright i, MD Work Phone: [facility] 07-22-2022 zoster vaccine recombinant Rock Sharpe MD Work Phone: [facility] 06-22-2021 Hemoglobin A1C Wayne Benton MD Work Phone: [facility] 11-03-2020 Pfizer SARS-COV-2 (COVID-19) vaccine, age 12+ yrs, mRNA, spike protein, LNP, preservative free, 30 mcg/0.3mL dose (UUF=277) Wayne Benton MD Work Phone: [facility] 10-12-2020 Pfizer SARS-COV-2 (COVID-19) vaccine, age 12+ yrs, mRNA, spike protein, LNP, preservative free, 30 mcg/0.3mL dose ([id number]=264) Wayne Benton MD Work Phone: [facility] 05-16-2019 hepatitis A vaccine, adult dosage Wayne Benton MD Work Phone: [facility] 09-28-2017 tetanus toxoid, reduced diphtheria toxoid, and acellular pertussis vaccine, adsorbed Wayne Benton MD Work Phone: [facility] 07-19-2015 tuberculin skin test ; purified protein derivative solution, intradermal Wayne Benton MD Work Phone: [facility] 04-19-2015 Hemoglobin A1C Hilton Cartwright i, MD Work Phone: [facility] 09-14-2013 influenza, seasonal, injectable Wayne Benton MD Work Phone: [facility] 09-14-2013 influenza virus vaccine, unspecified formulation To Assigned [facility] 11-12-2011 tetanus toxoid, reduced diphtheria toxoid, and acellular pertussis vaccine, adsorbed Wayne Benton MD Work Phone: [facility] 01-24-2003 tuberculin skin test ; purified protein derivative solution, intradermal Hilton Johnson MD Work Phone: [facility] Work Phone: 07-11-2002 influenza virus vaccine, unspecified formulation Hilton Johnson MD Work Phone: [facility] Work Phone: Payers Date Payer Category Payer Unknown [id number] 2024 Self-pay [id number] 2021 Medicare [id number] 2021 Private Health Insurance [id number] 2014 Medicaid [id number] 2014 Medicaid [id number] 2014 Unknown [id number] 1995 Worker's Compensation 1.2.84 [id number] 1960 Unknown [id number]..[id number] 1960 Unknown [id number] 2..840.1.766347.3.579.2.732 Medicare [id number] Medicare [id number] Medicare MEDICARE PART A B [id number] Private Health Insurance [facility] [id number] Unknown [id number] [id number] Unknown [id number] 2.840.1.912450.3.579.2.462 Unknown [id number] 2.840.1.107225.3.579.2.462 Unknown [id number] 2.840.1.426104.3.579.2.462 Unknown [id number] 2.840.1.256384.3.579.2.462 Unknown [id number] 2.840.1.078606.3.579.2.462 Unknown [id number] 2.840.1.192063.3.579.2.462 Unknown [id number] 2.840.1.781227.3.579.2.462 Unknown [id number] 2.840.1.920027.3.579.2.462 Unknown [id number] 2.840.1.192525.3.579.2.462 Unknown [id number] 2.840.1.570352.3.579.2.462 Unknown [id number] 2.16840.1.423307.3.579.2.462 Unknown [id number] 2.16.840.1.887403.3.579.2.462 Unknown [id number] 2.16.840.1.977261.3.579.2.462 Unknown [id number] 2.16840.1.004595.3.579.2.462 Unknown [id number] 2.16840.1.984933.3.579.2.462 Unknown [id number] 2.16840.1.790327.3.579.2.462 Unknown [id number] 2.840.1.903468.3.579.2.462 Social History Date Type Detail Facility Start: 11-24-2013 Tobacco smoking stat [facility] Occasional tobacco smoker [facility] History of tobacco [...] smoking status NHIS Unknown if ever smoked [facility] Start: 1960 Sex Assigned At Female [facility] Start: 03-09-2023 Gender identity Not on file [facility] Start: 03-09-2023 Tobacco smoking stat [facility] History of tobacco use Current smoker [facility] Tobacco smoking status Smokes to bacco daily (finding) [facility] Goals Date Patient Goal Desired Activity /State Personal health goal Functional Status Date Assessment Result Facility 02-16-2023 Functional status [place] [facility] Work Phone: Mental Status Date Assessment Result Facility 11-16-2023 Cognitive function Voice/Name [facility] Work Phone: 02-16-2023 Cognitive function Voice/Name [facility] Work Phone: 02-13-2023 Cognitive function Level Of Cons ciousness Awake;Alert;Appropriate;Follow s Commands [facility] Work Phone: Clinical Notes 12-28-2021 to 01-27-2025 Telephone Encounter - Orin Garcia - 02/18/2024 10:08 AM EDTTelephone Encounter - Orin Garcia - 02/18/2024 10:08 AM EDTTelephone Encounter - Yanelis Guerrero RN - 02/10/2024 3:37 PM EDT Note Date & Type Note Facility 01-27-2025 Note [facility] Medical Records Department [address] [place] [address] Discharge Summary 01/27/25 1151 MR#: [id number] Acct: [id number] Name: MORENA PATTON Rep #: [id number] : 1960 64 From: Lam Espinal MD PCP: Care Physician,No Primary Status:ADM IN Location: [place] [address] Providers Date of Admission: 01/26/25 Date of [...] Carotid Bruits Chest (more content not included)... [facility] 11-21-2024 Note HNO ID: [id number] Author: JESSENIA EVANS RN Service: ? 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 Author Type: Speech Pathology Teacher Type: Progress Notes Filed: 09/04/2024 11:09 Note [...] Mota MA September 04, 2024 11:02 AM [facility] 09-04-2024 Note Patient Outreach (NE TNAV) MORENA PATTON ([id number]) 1960 F Date Time Provider Department 09/04/24 [...] Encounter Status:Closed by LISA MOTA on 09/04/24 [facility] 06-09-2024 Note HNO ID: [id number] Author: RUTH RAYMUNDO MA Service: ? 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 Author Type: Speech Pathology Teacher Type: Progress Notes Filed: 06/09/2024 14:59 Note Text: POPULATION HEALTH NAVIGATION OUTREACH Action/FYI Medication Adherence Discuss/Due for: Questionable Attribution Routed to moreno team to confirm outside care Outcome: 1st attempt - Left Message 2nd attempt - No MyChart Reason for Outreach Med Adherence Patient Contacted: Unable or unnecessary to reach patient: Left message Navigation Signature: Ruth Raymundo MA June 09, 2024 2:41 PM [facility] 06-09-2024 Note HNO ID: [id number] Author: ?, ?, ? Service: ? Author Type: ? Type: Progress Notes Filed: 06/09/2024 14:59 Note Text: Morena Patton is identified through a medication adherence outreach initiative based on pharmacy claims data from [employer] (insurer) for Statin medication(s). Patient is reviewed [...] team to confirm outside care Talia Fine (Supervisor Heat Treating) [facility] 06-09-2024 Note Patient Outreach ([facility]) ALEKMORENA LAKHANI ([id number]) 1960 F Date Time Provider Department 06/09/24 NO PCP PHPOHE During your visit today, we recorded the following information about you: Babatunde (Diamond MindTalia Delacruz 06/09/2024 2:59 PM Signed Morena Patton is identified through a medication adherence outreach initiative based on pharmacy claims data from [employer] (insurer) for Statin medication(s). 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 No intravenous contrast [...] Date: 06/08/2024 10:06:50 AM Ordering Provider: [facility] 02-28-2024 Note HNO ID: [id number] Author: KERVIN BROWN RN Service: ? Author [...] Patient High CostTotal Patient High Cost {HIGH COST:450427) Quality measure review Payor request for assistance Action Taken: Data submitted to payor Kervin Brown RN February 28, 2024 7:14 AM [facility] 02-28-2024 Note Patient Outreach ([facility]) MORENA PATTON ([id number]) 1960 F Date Time Provider Department 02/28/24 KERVNI BROWN [facility] During your visit today, we [...] Patient High CostTotal Patient High Cost {HIGH COST:484931) Quality measure review Payor request for assistance [...] Encounter Status:Closed by KERVIN BROWN on 03/22/24 [facility] 02-18-2024 Telephone encounter Note Called patient, 3 identifiers obtained. Patient was unable to talk at this time. Instructed patient to call [facility] at [phone]. Asked patient to reference #[phone] when calling back to our office. Ok to relay message below from Anamaria Guerrero RN. [facility] 02-18-2024 Miscellaneous Notes Called patient, 3 identifiers obtained. Patient was unable to talk at this time. Instructed patient to call [facility] at [phone]. Asked patient to reference #[phone] when calling back to our office. Ok to relay message below from Anamaria Guerrero RN. Unable to leave a message, voicemail is full. If patient calls back please ask the need for syringes, please encourage patient to keep 02/24/24 appt. Thank you. documented [facility] encounter [facility]-10[facility] Telephone encounter Note Unable to leave a message, voicemail is full. If patient calls back please ask the need for syringes, please encourage patient to keep 02/24/24 appt. Thank you. [facility] 01-21-2024 Note Outreach Team ) Contact Details: Outbound call. Scheduling declined. Care Gaps Scheduling Medicare AWV / PCP Visit: AWV declined Eye Exam: Not due Mammogram: Due; needs order. [facility] 01-21-2024 Telephone encounter Note Outreach Team ([phone]) Contact Details: Outbound call. Scheduling declined. Care Gaps Scheduling Medicare AWV / PCP Visit: AWV declined Eye Exam: Not due Mammogram: Due; needs order. [facility] 01-21-2024 Miscellaneous Notes Outreach Team ([phone]) Contact Details: Outbound call. Scheduling declined. Care Gaps Scheduling Medicare AWV / PCP Visit: AWV declined Eye Exam: Not due Mammogram: Due; needs order. documented in this encounter [facility] 01-06-2024 Telephone encounter Note Images from the [...] (Arrive by 12:50 PM) Randall Hodgson MD [facility] 01-06-2024 Miscellaneous Notes Images from the original [...] (Arrive by 12:50 PM) Randall Hodgson MD [facility] documented in this encounter [facility] 12-23-2023 Telephone encounter Note OARRS reviewed. This is the last prescription that I will refill on behalf of this patietn [facility] 12-23-2023 Miscellaneous Notes OARRS reviewed. This is the last prescription that I will refill on behalf of this patietn documented in this encounter [facility] 11-16-2023 Discharge summary Note Date/Time November 16, 2023 2:15pm [facility] Medical Records Department [address] [place] [address] Emergency Department Summary 11/16/23 MR#: [id number] Acct: [id number] Name: MORENA PATTON Rep #:[id number] : 1960 63 From: Charly Nichols PCP: [...] approximate 4 months ago was admitted to [facility] for syncope. She had a Holter monitor [...] clinician: N/A This note was generated with [employer] dictation software. It may contain incorrectwords, spelling, [...] 33.4 L Lymph % (Auto) 57.5 H Hartley % (Auto) 6.8 Eos % (Auto) 1.7 [...] Referrals: Alyson Gao MD [Med Staff - Military Police Officer] - 3-5 Days Care Physician,No Primary [Primary [...] your Primary Care Provider. Call [facility] ([phone]) or report to the closest Emergency Room. Call 911 if necessary. 11/16/231811 <Electronically signed by Charly Nichols> Cosigner Signature (if applicable): CC: No Primary Care Physician ~ Signed [facility] Work Phone: [phone]) 858-192010-27-2023 Telephone encounter Note* Telephone Encounter - Nayana Muir - 05/28/2023 2:21 PM EDT Care Gaps Scheduling Health Maintenence Due: Medicare AWV/PCP Visit: deferred Eye Exam: not due Foot Exam: not due Annual Bloodwork: active orders YOKO: not due [id number] Miscellaneous Notes* Telephone Encounter - Nayana Muir - 05/28/2023 2:21 PM EDT Care Gaps Scheduling Health Maintenence Due: Medicare AWV/PCP Visit: deferred Eye Exam: not due Foot Exam: not due Annual Bloodwork: active orders YOKO: not due documented in this [id number] Discharge summary Author Blaise Tom [facility] March 23, 2023 9:12pm Note Date/Time March 23, 2023 5: 11pm [facility] Medical Records Department [address] [place] [address] Emergency Department Summary 03/23/23 MR#: [id number] Acct: [id number] Name: MORENA PATTON Rep #:[id number] : 1960 63 From: Blaise Tom DO [...] open her hand. She apparently was at [facility] and her symptoms worsened. Patient states I cannot take it anymore. States she was recently admitted to the hospital for this and never followed up with anybody as an outpatient. She said her last PCP was at [facility]. Denies fever or chills. Denies constipation or [...] it got worse when she was at [facility] today and she presents while drinking [...] 37.9 L Lymph % (Auto) 51.0 H Hartley % (Auto) 8.7 Eos % (Auto) 2.0 [...] Clarity Clear Urine pH 6.0 Ur Specific [place] 1.020 Urine Protein 30 H Urine Glucose [...] your Primary Care Provider. Call [facility] ([phone]) or report to the closest Emergency Room. Call 911 if necessary. 03/23/232111 <Electronically signed by Blaise Tom DO> Cosigner Signature (if applicable): CC: No Primary Care Physician ~ Signed [facility] Work Phone: 1(942) 202-688308-14-2023 Telephone encounter Note* Telephone Encounter - Sarita Moscoso RN - 03/15/2023 1:13 PM EDT Order pended for provider review & signature. Requested Prescriptions Pending Prescriptions Disp Refills Syringe 23G X 1 3 ML MISC 12 Each 0 Si Syringe once a month. vitamin B-12 (CYANOCOBALAMIN) 1000 MCG/ML injection 12 Each 0 Sig: Inject 1 mL into the muscle once a month. [id number] Miscellaneous Notes* Telephone Encounter - Sarita Moscoso [...] provider's name: Hilton Johnson MD Pharmacy Name: [facility] documented in this [id number] Telephone encounter Note* Telephone Encounter - Heather Mariscal - 03/15/2023 10:53 AM EDT Pharmacy requesting medication substitution. Medication not available to order: Cyanocobalamin 1000 MCG/ML KIT Recommended alternative medications: Pharmacy is requesting two separate prescriptions, one for thevitamin B injection solution and the other for the syringe to inject it. Prescribing provider's name: Hilton Johnson MD Pharmacy Name: [facility] [id number] Telephone encounter Note* Telephone Encounter - Lisa [...] Patient verbalized understanding with no further questions. [id number] Miscellaneous Notes* Telephone Encounter - Lisa Ballesteros [...] of protection against CVD. documented in this [id number] Telephone encounter Note* Telephone Encounter - Hilton Johnson MD - 03/10/2023 7:57 AM EDT Prescribing a statin in response to the elevated cholesterol and total nonHDL cholesterol identified on her lipid panel realizing that the HDL is quite elevated and might indicate some degree of protection against CVD. [id number] Note* Addendum Note - Nichelle Hills - 03/09/2023 2:14 PM EDTAddended by: NICHELLE HILLS on: 03/09/2023 02:14 PM Modules accepted: Orders [id number] Note* Addendum Note - Nichelle Hills - 03/09/2023 2:14 PM EDTAddended by: NICHELLE HILLS on: 03/09/2023 02:14 PM Modules accepted: Orders [id number] Miscellaneous Notes* Addendum Note - Nichelle Hills - 03/09/2023 2:14 PM EDTAddended by: NICHELLE HILLS on: 03/09/2023 02:14 PM Modules accepted: Orders documented in this [id number] History of Present illness Narrative* rOin Garcia - 03/09/2023 10:40 AM EDT Patient identified by name and date of . Blood obtained from arm. * Hilton Johnson MD - 03/09/2023 9:30 AM EDT Date: 03/09/23 Morena Patton 63 year old, female [id number] CHIEF COMPLAINT: Chief Complaint Patient presents with [...] about a week ago. She lives in [place] but came here today because viktoriya really knows me. She ran out of most of her medications and has not been taking them. She passed out last week and picked up some medications at that time. She is now on a heart monitor. She is due to see a dynamometer tester when she turns in her monitor. She was in the ED on January 30 for abdominal pain. She was discharged on Carafate. She started taking it on 02/24. She was in pain the entire time up until starting to take it. Her pain is now improved but not resolved. She states that she needs to see a synthetic resin operator and Neurologist and dynamometer tester. 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 Diagnoses and all orders for this [...] - vitamin D2 ergocalciferol (DRISDOL) 1.25 MG (40195 UT) capsule; Take 1 Capsule by mouth [...] during her most recent ED visit to [facility] On . Generalized abdominal pain This was the reason that she presented to the ED at [facility] on Dizziness - CARDIOLOGY SERVICE REQUEST - ECHOCARDIOGRAM, ADULT SERVICE REQUEST Patient states that she is always dizzy and weak and is currently wearing a Holter monitor and was told that she needs to see a Erecting Engineer to assess her problem. Prediabetes - HEMOGLOBIN [...] at follow up visits. She lives in [place], and I encouraged her to have care established there as she is likely to be admitted to that local hospital if/when she might become acutely ill. She wants to continue care here at [facility] and we will therefore provide herthe referral [...] Risk protocol implemented: No documented in this [id number] Telephone encounter Note* Telephone Encounter - Janae [...] as well as a plan of action. [id number] Miscellaneous Notes* Telephone Encounter - Janae Hemphill [...] a plan of action. documented in this [id number] Discharge summary Author Virginie Aguillon [facility] February 16, 2023 10:56am Note Date/Time February 16, 2023 10:5 7am [facility] Medical Records Department [address] [place] [address] Instructions for Home/Discharge Instructions 02/16/23 1056 MR#: [id number] Acct: [id number] Name: MORENA PATTON Rep #:[id number] : 1960 63 From: Virginie Aguillon MD [...] your pharmacy, this can also be obtained oozn-ipl-udxerbi at a pharmacy as you were low [...] Recorder Preventi (Urgent) Timeframe: 1 Day Facility: [facility] - Location: Cardiovascular Services Ordered By: Dr. [...] MD; No Primary Care Physician ~ Signed [facility] Work Phone: 1(818) 122-259907-17-2023 Progress note Author Virginie Aguillon [facility] February 15, 2023 2:30pm Note Date/Time February 15, 2023 2:30 pm [facility] Medical Records Department [address] [place] [address] Progress Note - Hospitalist 02/15/23 1422 MR#: [id number] Acct: [id number] Name: MORENA PATTON Rep #:[id number] : 1960 63 From: Virginie Aguillon MD PCP: Care Physician,No Primary Status :ADM CYRIL Location: [place] [address] Reason for Visit Reason for Visit: Diagnoses [...] 23.7 L, Lymph % (Auto) 61.1 H, Hartley % (Auto) 11.0 H, Eos % (Auto) [...] however so came to ED -Was in [facility] twice in January and hat CTA [...] documentation, 52minutes Charges/Coding Visit Charges Inpatient E&M: 66593 Subs Hosp L3 02/15/23 1430 <Electronically signed by Virginie Aguillon MD> Cosigner Signature (if applicable): CC: ~ Signed [facility] Work Phone: 1(966) 449-335607-16-2023 Progress note Author Drew Solis [facility] February 14, 2023 9:50am Note Date/Time February 14, 2023 7:38 am [facility] Medical Records Department [address] [place] [address] Progress Note - Hospitalist 02/14/23 0736 MR#: [id number] Acct: [id number] Name: MORENA PATTON Rep #:[id number] : 1960 63 From: Drew Solis MD PCP: Care Physician,No Primary Status :ADM CYRIL Location: [place] [address] Reason for Visit Reason for Visit: Diagnoses [...] (Auto) 39.8 L, Lymph % (Auto) 46.3H, Hartley % (Auto) 10.8 H, Eos % (Auto) [...] 37.1 L, Lymph % (Auto) 47.8 H, Hartley % (Auto) 12.3 H, Eos % (Auto) [...] documentation, 50Minutes Charges/Coding Visit Charges Inpatient E&M: 18846 Subs Hosp L3 02/14/23 0950 <Electronically signed by Drew Solis MD> Cosigner Signature (if applicable): CC: ~ Signed [facility] Work Phone: 1(243) 619-323607-16-2023 History and physical note Author Jeniffer Campos [facility] February 13, 2023 10:41pm Note Date/Time February 13, 2023 8:47 pm [facility] System Medical Records Department [address] [place] [address] [place] [address] H&P Exam - Hospitalist 02/13/232044 MR#: [id number] Acct: [id number] Name: MORENA PATTON Rep #:[id number] : 1960 63 From: Jeniffer Campos MD PCP: Care Physician,No Primary Status :ADM CYRIL Location: [address] HPI - General General Date [...] for pain control) who presents to the [facility] ED on 02/13/23 with history of [...] no prodrome. She was recently seenin the [employer] system in January twice from records noted [...] am unable tosee these records in the [employer] system. There was recent CTA evaluation/lab work-up [...] (Auto) 39.8 L, Lymph % (Auto) 46.3H, Hartley % (Auto) 10.8 H, Eos % (Auto) [...] 20:32 EDT Reading Location ID and State: [facility] / [place] , Service support , Assessment [...] for pain control) who presents to the [facility] ED on 02/13/23 with history of [...] with history of peptic ulcer disease: Admission wseyqzbjra06.2, baseline prior has been 12-13 but there [...] 75 minutes. Charges/Coding Visit Charges Inpatient E&M: 27573 Init Hosp L3 02/13/23 2241 <Electronically signed by Jeniffer Campos MD> Cosigner Signature (if applicable): CC: Dr. Jeniffer Campos MD; No Primary Care Physician~ Signed [facility] Work Phone: 1(583) 807-508907-16-2023 Discharge summary Author Albert Carbone [facility] February 13, 2023 10:07pm Note Date/Time February 13, 2023 7:43 pm [facility] Medical Records Department [address] [place] [address] Emergency Department Summary 02/13/23 MR#: [id number] Acct: [id number] Name: MORENA PATTON Rep #:[id number] : 1960 63 From: Albert Carbone MD PCP: Care Physician,No Primary Status :ADM CYRIL Location: [place] [address] Albert Carbone MD on [...] son is arrived. He said at a [facility] which I believe was [facility] they found that she had valvular heart disease. He thinks that may be the causeof her syncopal episodes. He preferred that she go to [place]. I explained to him that that may not be a possibility tonight. He wants to sign out and take her to [facility] emergency department himself. 02/13/232199<Electronically signed [...] Reaction Status Date / Time buprenorphine [From [facility]] Allergy Rash Verified 10/22/22 10:10 NSAIDS (Non-Steroidal [...] girdle intact. Moving all 4 extremities. Normal occupational therapy department chair strength. Normal dorsi plantarflexion. Neurologically. She is [...] 39.8 L Lymph % (Auto) 46.3 H Hartley % (Auto) 10.8 H Eos % (Auto) [...] 20:32 EDT Reading Location ID and State: [address] [place] [address] , Service support , Chest x-ray, portable, single view showed no acute abnormality. Normal cardiac silhouette. Normal mediastinum. Normal lung ferrer. Rhythm Strip Rhythm Strip: Sinus Rhythm Rate: 78 Ectopy: None EKG Initial EKG: Attestation: I personally reviewed and interpreted this EKG as follows: Interpretation: No Acute Injury Pattern Comments: Normal sinus rhythm rate of 78. No acute signs of DE nor ischemia nor dysrhythmia. Unremarkable EKG. Discharge Plan Dx/Rx/DC Orders Clinical Impression: Closed head injury, Syncope, Fall Disposition Disposition: Acute Care [facility] What to do if you have Problems For any increased pain, shortness of breath, bleeding, nausea or vomiting, chestpain, or any unexpected problems, contact your Primary Care Provider. Call Doctors Registry ([phone]) or report to the closest Emergency Room. Call 911 if necessary. 02/13/232104 <Electronically signed by Albert Carbone MD> Cosigner Signature (if applicable): CC: No Primary Care Physician ~ Signed [facility] Work Phone: 1(817) 918-175007-15-2023 Discharge summary Author Albert Carbone [facility] February 13, 2023 10:07pm Note Date/Time February 13, 2023 7:43 pm [facility] Medical Records Department [address] [place] [address] Emergency Department Summary 02/13/23 MR#: [id number] Acct: [id number] Name: MORENA PATTON Rep #:[id number] : 1960 63 From: Albert Carbone MD PCP: Care Physician,No Primary Status :ADM CYRIL Location: [place] [address] Albert Carbone MD on 02/13/23 at 2206 Family is had multiple discussions. Some of them have been heated between them. At this moment the patient is going to be admitted here for syncope. 02/13/232205<Electronically signed by Alebrt Carbone MD> Cosigner Signature (if applicable): cc: No Primary Care Physician ~* Signed ADDENDUM by Dr. Albert Carbone MD on 02/13/23 at 2200 Mild 1 and discussed all the test with the patient and get her admitted the son is arrived. He said [facility] found that she had valvular heart disease. He thinks that may be the causeof her syncopal episodes. He preferred that she go to [place]. I explained to him that that may not be a possibility tonight. He wants to sign out and take her to [facility] emergency department himself. 02/13/232199<Electronically signed [...] Prior similar symptoms: Yes Recent Illness/[facility]ospital[facility] Medical History (Updated 02/13/23 @ 20:47 by [...] girdle intact. Moving all 4 extremities. Normal occupational therapy department chair strength. Normal dorsi plantarflexion. Neurologically. She is [...] 39.8 L Lymph % (Auto) 46.3 H Hartley % (Auto) 10.8 H Eos % (Auto) [...] 20:32 EDT Reading Location ID and State: [facility] / [place] , Service support , Chest x-ray, portable, single view showed no acute abnormality. Normal cardiac silhouette. Normal mediastinum. Normal lung ferrer. Rhythm Strip Rhythm Strip: Sinus Rhythm Rate: 78 Ectopy: None EKG Initial EKG: Attestation: I personally reviewed and interpreted this EKG as follows: Interpretation: No Acute Injury Pattern Comments: Normal sinus rhythm rate of 78. No acute signs of DE nor ischemia nor dysrhythmia. Unremarkable EKG. Discharge Plan Dx/Rx/DC Orders Clinical Impression: Closed head injury, Syncope, Fall Disposition Disposition: Acute Care Hospital [facility] What to do if you have Problems For any increased pain, shortness of breath, bleeding, nausea or vomiting, chestpain, or any unexpected problems, contact your Primary Care Provider. Call Insurance Business Applications Registry ([phone]) or report to the closest Emergency Room. Call 911 if necessary. 02/13/23 6333 <Electronically signed by Albert Carbone MD> Cosigner Signature (if applicable): CC: No Primary Care Physician ~ Signed [facility] Work Phone: [phone]) 239-239903-23-[address] Tom [facility] October 22, 2022 2:51pm Note Date/Time October 22, 2022 10: 39am [facility] Medical Records Department [address] [place] [address] Emergency Department Summary 10/22/22 MR#: [id number] Acct: [id number] Name: MORENA PATTON Rep #:[id number] : 1960 62 From: Blaise Tom DO [...] couple of falls at home this week. [facility] Medical History ADHD (attention deficit hyperactivity [...] Reaction Status Date / Time buprenorphine [From [facility]] Allergy Rash Verified 10/22/22 10:10 NSAIDS (Non-Steroidal [...] 45.8 L Lymph % (Auto) 43.4 H Hartley % (Auto) 7.5 Eos % (Auto) 2.5 [...] Clarity Clear Urine pH 7.0 Ur Specific [place] 1.015 Urine Protein 30 H Urine Glucose [...] your Primary Care Provider. Call [facility] Registry ([phone]) or report to the closest Emergency Room. Call 911 if necessary. 10/22/22 1451 <Electronically signed by Blaise Tom DO> Cosigner Signature (if applicable): CC: No Primary Care Physician ~ Signed [facility] Work Phone: 1(910) 604-750203-10-[address] Rutledge [facility] October 09, 2022 5:57pm Note Date/Time October 09, 2022 5:4 1pm [facility] Medical Records Department [address] [place] [address] Emergency Department Summary 10/09/22 MR#: [id number] Acct: [id number] Name: MORENA PATTON Rep #:[id number] : 1960 62 From: Lisa ROY PCP: [...] has been taking Excedrin for the headaches. [facility] <MANUELA Hickman - Last Filed: 10/09/22 17:50> [facility] Medical History ADHD (attention deficit hyperactivity disorder) [...] Reaction Status Date / Time buprenorphine [From [facility]] Allergy Rash Verified 10/09/22 17:24 NSAIDS (Non-Steroidal [...] <MANUELA Hickman - Last Filed: 10/09/22 17:50> [facility] Narrative Medical decision making narrative: [...] CT scan. She was advised to take bhke-vpg-hublmfi pain relievers and follow-up with her doctor next week. She was given return precautions and discharged in stable condition. Differential: Concussion, intracranial bleed, skull fracture Test considered but not ordered: Cording to Syrian CT head rule no indication for head imaging. Prescriptions considered but I think she can take cfqp-jmx-wlprpyz Tylenol or Motrin. <Dr. Anthony Rutledge MD - Last Filed: 10/09/22 17:57> [facility] Narrative Medical decision making narrative: [...] CT scan. She was advised to take arvx-gto-pawtzwl pain relievers and follow-up with her doctor next week. She was given return precautions and discharged in stable condition. Differential: Concussion, intracranial bleed, skull fracture Test considered but not ordered: Cording to Syrian CT head rule no indication for head imaging. Prescriptions considered but I think she can take kgaw-oka-wqrhhmx Tylenol or Motrin. I have personally performed [...] neurologic exam Medical Decision Making per the Syrian CT head rule and [place] rule imaging is not required. Per [employer] [...] your Primary Care Provider. Call [facility] Registry ([phone]) or report to the closest Emergency Room. Call 911 if necessary. 10/09/221749 <Electronically signed by Lisa ROY> Cosigner Signature (if applicable): 10/09/221756 <Electronically signed by Teo WOO> CC: No Primary Care Physician ~ Signed [facility] Work Phone: 1(443) 127-499607-28-2022 Telephone encounter Note* Telephone Encounter - Joey Mcnamara - 02/26/2022 10:10 AM EDT Care Gaps Scheduling Contact Details: Called, left message Health Maintenance Due: Medicare AWV / PCP Visit: Due Eye Exam: Not due Foot Exam: Not due Annual Blood Work: Due Mammogram: Due, but pt has no order in Active Requests FIT: Not due [id number] Miscellaneous Notes* Telephone Encounter - Joey Mcnamara - 02/26/2022 10:10 AM EDT Care Gaps Scheduling Contact Details: Called, left message Health Maintenance Due: Medicare AWV / PCP Visit: Due Eye Exam: Not due Foot Exam: Not due Annual Blood Work: Due Mammogram: Due, but pt has no order in Active Requests FIT: Not due documented in this [id number] Hospital course Narrative* Berkley Jaramillo MD - 01/01/2022 7:31 AM EDT DISCHARGE SUMMARY [address] [address] Morena Patton Date of : 1960 61 [...] Type: Service Level Authorization Referral Location: [facility] Number of Visits Requested: 3 Expiration Date: 12/31/22 Future Appointments Date Time Provider Department Center 01/14/2022 10:45 AM Macy Smiht DO [facility] 02/19/2022 10:30 AM Mary Ellen Miller MD [facility] Condition at Discharge Improved Activity No restrictions Diet No restrictions Disposition Home Functional Status Ambulatory Reason for Hospitalization Upper Gastrointestinal Hemorrhage Significant Findings EGD and colonoscopy 12/30/21 IMPRESSION: 1. Two clean based (Frazee Class III) ulcers noted at the anastomosis [...] underwent EGD and colonoscopy. Two clean based (Frazee Class III) ulcers were noted at the [...] Associated Diagnoses: COPD (chronic obstructive pulmonary disease) ([facility]) ammonium lactate (LAC-HYDRIN) 12 % lotion Apply 80 mL topically 2 times daily. Qty: 500 g, Refills: 3 Associated Diagnoses: Dry skin !! beclomethasone (QVAR) 40 MCG/ACT inhaler Inhale 1 Puff 2 times daily. Qty: 7.3 g, Refills: 3 Associated Diagnoses: COPD (chronic obstructive pulmonary disease) ([facility]) methocarbamol (ROBAXIN-750) 750 MG tablet [...] MD Internal Medicine, PGY-1 documented in this [id number] History of Present illness Narrative* Carlos Katz - 12/31/2021 5:03 PM EDT [facility] Spiritual Care Services Services provided for: Patient Services initiated by: Staff Pipe Turner Reason for services: Initial visit Assessment/Narrative: Patient just lost a first cousin apparently in good health last week Adventist/Spirituality: Non Scientology Spiritual Concerns: Grief/Loss Coping: Role of buddhist/spirituality Family: Support and Dynamics Interventions: Rapport building and prayer Outcome: Expressed appreciation Plan of Care: On-going Visits Carlos Katz Pager: [phone] Extension: [phone] * Orestes Gaspar MD - 12/31/2021 3:42 [...] Hemolysis present 12/28/21 172 23 EGD: Two Frazee Class III ulcers at anastomosis site of [...] Concerns No PCP VERIFIED No ADMISSION INSURANCE [employer];Medicare Medicare HMO (comment) Transportation to and/or [...] plans as warranted. Adonay CHOPRA, RN Inpatient Abattoir Manager * Berkley Jaramillo MD - 12/30/2021 7:24 AM EDT Images from the original note were not included. INTERNAL MEDICINE TEAM 9 DAILY PROGRESS NOTE Patient: Morena Patton : 1960 Sex: female Room: [place] [address] Admit Date: 12/28/2021 Today's Date: 12/30/2021 Length [...] Morena CHANDRA : 1960 Sex: female Room: [place] [address] Admit Date: 12/28/2021 Today's Date: 12/29/2021 Length [...] Goetz MD Internal Medicine, PGY-1 Personal Pager: [phone] Team [phone] Pager: [phone] documented in this [id number] Hospital Discharge instructions* Discharge Instructions* Berkley Jaramillo [...] be in 10 years. documented in this [id number] Note* Care Plan Note - Catalina Hyde [...] adult patient will be met Outcome: Progressing [id number] Miscellaneous Notes* Care Plan Note - Catalina [...] - 12/30/2021 10:03 AM EDT Morena Patton [id number] 12/30/2021 HISTORY & PHYSICAL: Patient's history with [...] Ortiz MD 12/30/21 10:03 AM Morena Patton [id number] 12/30/2021 PRECISION ASSEMBLY INSPECTOR: Todd Ortiz MD ATTENDING:Davon Ha MD ([id number]) Procedure(s): ESOPHAGOGASTRODUODENOSCOPY AND COLONOSCOPY INSTRUMENT: Scope #[id number] #[id number] COLONOSCOPE #3006 SEDATION: Moderate: Oxygen 2L via [...] normal GASTROJEJUNAL ANASTOMOSIS: Two clean based ulcers (Frazee Class III) with surrounding erythematous mucosa noted [...] transillumination of right lower quadrant. Prep was Reading Bowel Prep Right Colon: Minor amount of residual staining, small fragments of stool and/or opaque liquid, Reading Bowel Prep Transverse Colon: Entire colon seen well, Reading Bowel Prep Left Colon:Minor amount of residual [...] and collapse (Primary Diagnosis) [780.2.ICD-9-CM] Peptic ulcer [053258] Gastrointestinal hemorrhage, unspecified gastrointestinal hemorrhage type [7145824] 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-en-Y gastric bypass [885790] Anastomotic ulcer [703965] Chronic iron deficiency anemia [6056478] JANIE PATH SPECIMEN SENT: no SPECIMEN: None PHOTOGRAPH TAKEN:yes COMPLICATIONS DURING PROCEDURE: none EBL (estimated blood loss): none IMPRESSION: 1. Two clean based (Frazee Class III) ulcers noted at the anastomosis [...] Code Dispo: Inpatient Rest of plan per internet programmer note. To be discussed with attending physician in the morning. Plan is preliminary until finalized by the attending physician. Luis Daniel Ahumada Internal Medicine, PGY-2 Pager: [phone] documented in this [id number] Note* OP Note - Davon Ha MD - 12/30/2021 10:03 AM EDT Morena Patton [id number] 12/30/2021 HISTORY & PHYSICAL: Patient's history with [...] Ortiz MD 12/30/21 10:03 AM Morena Patton [id number] 12/30/2021 PRECISION ASSEMBLY INSPECTOR: Todd Ortiz MD ATTENDING:Davon Ha MD ([id number]) Procedure(s): ESOPHAGOGASTRODUODENOSCOPY AND COLONOSCOPY INSTRUMENT: Scope #[id number] #[id number] COLONOSCOPE #3006 SEDATION: Moderate: Oxygen 2L via [...] normal GASTROJEJUNAL ANASTOMOSIS: Two clean based ulcers (Frazee Class III) with surrounding erythematous mucosa noted [...] transillumination of right lower quadrant. Prep was Reading Bowel Prep Right Colon: Minor amount of residual staining, small fragments of stool and/or opaque liquid, Reading Bowel Prep Transverse Colon: Entire colon seen well, Reading Bowel Prep Left Colon:Minor amount of residual [...] and collapse (Primary Diagnosis) [780.2.ICD-9-CM] Peptic ulcer [255541] Gastrointestinal hemorrhage, unspecified gastrointestinal hemorrhage type [5183624] 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-en-Y gastric bypass [980358] Anastomotic ulcer [726915] Chronic iron deficiency anemia [9191560] JANIE PATH SPECIMEN SENT: no SPECIMEN: None PHOTOGRAPH TAKEN:yes COMPLICATIONS DURING PROCEDURE: none EBL (estimated blood loss): none IMPRESSION: 1. Two clean based (Frazee Class III) ulcers noted at the anastomosis [...] Ha MD Department of Gastroenterology & Hepatology [id number] Note* Care Plan Note - Kimi Amezcua [...] adult patient will be met Outcome: Progressing [id number] History and physical note* Orestes Gaspar MD [...] 3. Continue usual meds Orestes Gaspar MD [id number] History and physical note* Orestes Gaspar MD [...] Morena Chandra : 1960 Sex: female Room: [place] [address] Admit Date: 12/28/2021 Today's Date: 12/28/2021 Length [...] and doesn't remember anything after that - Agenda her face was cold/had cold towels on [...] Surgical History: Procedure Laterality Date BARIATRIC SURGERY [facility] 1999 SECTION 1978 Lost child COLONOSCOPY 3-03 [...] of drug use. Family History: Cousin had [place] Review of patient's family history indicates: Problem: [...] Goetz MD Internal Medicine, PGY-1 Personal Pager: [phone] Team [phone] Pager [phone] documented in this [id number] Consult note* Davon Ha MD - 12/29/2021 10:00 AM EDTAssociated Order(s): IP GASTROENTEROLOGY CONSULT Images from the original note were not included. Department of Gastroenterology and Hepatology Consult H&P Note GI Attending Physician: Dr. Davon Ha MD ([id number]) Patient: Morena CHANDRA Location: [facility] Reason for Consult: coffee ground emesis, [...] Gastroenterology GASTRIC RESTRICTVE PX, W/GASTRIC BYPASS/SHORT LIMB JC-EN-Y GASTROENTEROSTMY, <150CM 05/26/00 Shira LAPAROSCOPY 1978 ovarian [...] stomach 3. Normal remnant stomach Colonoscopy 2009 [facility] (report not available) Colonoscopy 2002 Colon noted [...] with GI attending, Dr. Davon Ha MD ([id number]). Primary team updated. Please don't hesitate to reach out with questions or concerns. We will continue to follow with you. Personal Pager [phone] GI Consult Pager (nights and weekends) [phone] Mary Ellen Miller MD Gastroenterology Fellow Division of Gastroenterology & Hepatology [facility] 12/29/21 ATTENDING NOTE The patient [...] Ha MD Department of Gastroenterology & Hepatology [facility] Work Phone: 1(837) 726-363605-30-2022 Consult note* Davon Ha MD - 12/29/2021 10:00 AM EDTAssociated Order(s): IP GASTROENTEROLOGY CONSULT Images from the original note were not included. Department of Gastroenterology and Hepatology Consult H&P Note GI Attending Physician: Dr. Davon Ha MD ([id number]) Patient: Morena CHANDRA Location: Reason for Consult: [...] ESOPHAGOGASTRODUODENOSCOPY N/A 06/14/2019 Procedure: ESOPHAGOGASTRODUODENOSCOPY; Surgeon: Abdullahi Daivd MD; Location: [facility]; Service: Gastroenterology [...] stomach 3. Normal remnant stomach Colonoscopy 2009 [facility] (report not available) Colonoscopy 2002 Colon noted [...] with GI attending, Dr. Davon Ha MD ([id number]). Primary team updated. Please don't hesitate to reach out with questions or concerns. We will continue to follow with you. Personal Pager [phone] GI Consult Pager (nights and weekends) [phone] Mary Ellen Miller MD Gastroenterology Fellow Division of Gastroenterology & Hepatology [facility] 12/29/21 ATTENDING NOTE The patient [...] Ha MD Department of Gastroenterology & Hepatology [facility] documented in this [id number] Emergency department Note* Mayra Leong - 12/29/2021 8:15 AM EDT Pts candido fully changed. [id number] Emergency department Note* Mayra Leong - 12/29/2021 [...] patient is accepted. Harshad Emery DO PGY2 [id number] * Wayne Benton MD - 12/28/2021 5:05 PM EDT EMERGENCY DEPARTMENT - VISIT NOTE HISTORY OF PRESENT ILLNESS Chief Complaint Patient presents with Fainting Per ems, family states patient passed out, +etoh and marijuana HIPAA: Verbal permission granted from patient to discuss case, including protected health information, in front of family / friends in room at the time of the evaluation. Decoration Checker: not needed - patient preferred language is Ghanaian. The history is provided by the Patient. 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 Plan: Admit to [facility] after labs result. IMPRESSION AND DISPOSITION [...] 202912/28/21 Dr. Wayne Benton documented in this [id number] Note* Care Plan Note - Luis Daniel [...] Code Dispo: Inpatient Rest of plan per internet programmer note. To be discussed with attending physician in the morning. Plan is preliminary until finalized by the attending physician. Luis Daniel Ahumada Internal Medicine, PGY-2 Pager: [phone] [facility] Work Phone: 1(548) 647-809605-29-2022 History and physical note* Viviane Goetz MD - 12/28/2021 8:54 PM EDT Images from the original note were not included. INTERNAL MEDICINE TEAM 9 HISTORY AND PHYSICAL Patient: Morena Chandra : 1960 Sex: female Room: [place] [address] Admit Date: 12/28/2021 Today's Date: 12/28/2021 Length [...] and doesn't remember anything after that - Agenda her face was cold/had cold towels on [...] of drug use. Family History: Cousin had [place] Review of patient's family history indicates: Problem: [...] Goetz MD Internal Medicine, PGY-1 Personal Pager: [phone] Team 9 Pager [phone] [id number] Physician Emergency department Note* Wayne Benton MD [...] to stay in hospital Wayne Benton MD [facility] Work Phone: 1(850) 768-911105-29-2022 Physician Emergency department Note* Harshad Emery DO [...] patient is accepted. Harshad Emery DO PGY2 [id number] [facility] Work Phone: 1(391) [phone] Physician Emergency department Note* Wayne Benton MD [...] room at the time of the evaluation. Decoration Checker: not needed - patient preferred language is Ghanaian. The history is provided by the Patient. 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 Plan: Admit to [facility] after labs result. IMPRESSION AND DISPOSITION [...] note No data available for this section [facility] Evaluation note* Diagnosis Gastrointestinal hemorrhage, unspecified [...] [facility]: Evaluation note* Diagnosis Onset Date Resolution Status Closed head injury acute Fall acute Syncope acute [facility] Work Phone: Evaluation note* Diagnosis Onset Date Resolution Status Anxiety and depression acute Closed head injury acute Fall acute Syncope acute Hypertension chronic Insomnia chronic [facility] Work Phone: Evaluation note* Diagnosis Routine adult [...] Iron deficiency anemia following bariatric surgery resolved [facility] Work Phone: Evaluation note* Diagnosis Anastomotic ulcer [...] myelopathy- Primary documented in this encounter [facility] [employer] [facility] Work Phone: Hospital Discharge instructions Additional Instructions Take Tylenol 1000 mg every 6 hours as needed and follow-up with your doctor next week if symptoms are persistent.[facility] Work Phone: Hospital Discharge instructions Additional Instructions Patient's evaluation at [facility] was unremarkable. Blood counts are stable. Electrolytes are unremarkable. Potassium is elevated due to hemolysis. Chest x- ray, EKG and CAT scan of the brain were unremarkable. We had planned to admit her for a syncopal event. Family believes that she has a recent work-up done at [facility] that showed valvular heart disease and they would prefer to go there for further evaluation.[facility] Work Phone: Hospital Discharge instructions Additional Instructions Cardiac workup negative. D-dimer negative. Chest x-ray negative. Hemoglobin 11.5. White count 5.3. Creatinine 1.04. Follow-up as an outpatient as given to further testing. If you have recurrent symptoms, return to the ED for reevaluation.[facility] Work Phone: Hospital Discharge instructions No data available for this section [facility] Progress note No data available for this section [facility] Reason for referral (narrative)* Tests/Procedures (Routine) - Pending Review Specialty Diagnoses / Procedures Referred By Contact Referred To Contact Cardiovascular Testing Diagnoses Dizziness Hilton Johnson MD [address] [place] [address] [facility] CARD NON INVASIVE [address] [phone] Referral ID Status Reason Start Date Expiration Date V isits Requested Visits Authorized [id number] Pending Review 03/09/2023 03/09/2024 1 1 Scheduling [...] call the [facility] at [phone] (BEAT) if you are unable to keep [...] menstrual period 08/27/2002. [email or web address] * Service Level Authorization (Routine) - Pending Review Specialty Diagnoses / Procedures Referred By Contac t Referred To Contact Cardiology Diagnoses Dizziness [place] [address] [facility] [address] [place] [address] Referral ID Status Reason Start Date Expiration Date V isits Requested Visits Authorized [id number] Pending Review 03/09/2023 03/09/2024 3 3 Scheduling Instructions Please call the [facility] at [phone] to schedule an appointment if one was not made for you today. Question Answer What is the primary reason for consult? Dizziness [10] At what location would you like the patient to be seen? [facility] Summary Purpose Family History No Family History [...] Will No July 07 12:21pm Power of Bias Cutter No July 07, 2022 12:21pm Advance Directive Response Recorded Date/ Time Advance Directives No March 05 10:27am Living Will No October 09, 2022 5:35pm Power of Bias Cutter No October 09 5:35pm Advance Directive Response Recorded Date/ Time Advance Directives No March 05 11:27am Living Will No October 22, 2022 11:50am Power of Bias Cutter No October 22 11:50am Advance Directive Response Recorded Date/ Time Advance Directives No March 05 11:27am Living Will No February 13, 2023 7:26pm Power of Bias Cutter No February 13 7:26pm Advance Directive Response Recorded Date/ Time Advance Directives No March 05 11:27am Living Will No February 13, 2023 10:30pm Power of Bias Cutter No February 13 10:30pm Latest Code Status [...] Will No March 23 4:25pm Power of Bias Cutter No March 23, 023 4:25pm Advance Directive Response Recorded Date/ Time Advance Directives No March 05, 021 11:27am Living Will No November 16, 2023 2:13pm Power of Bias Cutter No November 15 2:13pm Date Activated Date [...] iron deficiency anemia Orestes Gaspar MD [address] [place] [address] [facility] [address] [place] [address] Referral ID Status Reason Start Date Expiration Date V isits Requested Visits Authorized [id number] Pending Review 12/31/2021 12/31/2022 3 3 Scheduling [...] To Contact Cardiovascular Testing Emergency Medicine [address] [place] [address] [facility] CARD NON INVASIVE [address] [phone] Referral ID Status Reason Start Date Expiration Date V isits Requested Visits Authorized [id number] Authorized 12/28/2021 12/28/2022 1 1 Scheduling Instructions [...] call the [facility] at [phone] (BEAT) if you are unable to keep [...] spondylosis without myelopathy Drew Rosenbaum, DO [address] [place] [address] [facility] [place] [address] Referral ID Status Reason Start Date Expiration Date Visits Requested Visits Authorized [id number] [facility] 01/06/2024 01/05/2025 1 1 Scheduling Instructions You have been referred to the [facility]. You will be contacted to schedule your appointment within 24 - 48 hours. If you are not contacted within this time frame please call the [facility] at [phone] to schedule your appointment. Question Answer Reason [...] CREATED AUTHOR AUTHOR'S ORGANIZ ATION 02/21/2024 [facility] DATE CREATED AUTHOR AUTHOR'S ORGANIZ ATION 06/11/2024 [facility] DATE CREATED AUTHOR AUTHOR'S ORGANIZ ATION 11/23/2024 [facility] DATE CREATED AUTHOR AUTHOR'S ORGANIZ ATION 06/14/2025 [facility] Reason for Visit (unrecogniz ed section and content) Reason Comments Fainting Per ems, family stat es patient passed out, +etoh and marijuana Specialty Diagnoses / Procedures Referred By Contac t Referred To Contact Emergency Medicine Diagnoses Peptic ulcer, site unspecified, unspecified as acute or chronic, without hemorrhage or perforation Procedures . [facility] [employer] [facility] [place] [address] Phone: [phone] [facility] [employer] [facility] [place] [address] Phone: [phone] Referral ID Status Reason Start Date Expiration Date Visits Re quested Visits Authorized [id number] 3 3 Reason Onset Date Comments Left [...] 1112, Intra-op 1021 (Given - Provider: Angela Caretr RN)1023 (Given - Provider: Angela Carter RN)1030 (Given - Provider: Angela Carter RN) midazolam (VERSED) 2 MG/2ML injection (CANCELED) PRN, Starting on Wed12/30/21 at 1021, Until Wed12/30/21 at 1112, Intra-op 1021 (Given - Provider: Angela Carter RN)1023 (Given - Provider: Angela Carter RN)1030 (Given - Provider: Angela Carter RN) Care Teams (unrecognized sec tion and content) Education Supervisor Relationship Specialty Start Date End Date Prateek Moscoso LISW [address] [place] [id number] Short Order [employer] Social Work 05/07/20 Education Supervisor Relationship Specialty Start Date End Date Prateek Moscoso LISW [address] [place] [address] Short Order [employer] Social Work 05/07/20 Team Status: Active Member Role Status Dates No Primary Care Physician Family Provider Active No Primary Care Physician Primary Care Provider Active Team Status: Inactive Member Role Status Dates Dr. Jose Champlin , DO Attending Provider, Emergency P rovider [...] Dr. Drew Solis MD Other Provider Active Education Supervisor Relationship Specialty Start Date End Date Prateek Moscoso LISW [address] [place] [address] Short Order [employer] Social Work 05/07/20 Education Supervisor Relationship Specialty Start Date End Date Prateek Moscoso LISW [address] [place] [address] Short Order [employer] Social Work 05/07/20 Education Supervisor Relationship Specialty Start Date End Date Prateek Moscoso LISW [address] [place] [address] Short Order [employer] Social Work 05/07/20 Education Supervisor Relationship Specialty Start Date End Date Prateek Moscoso LISW [address] [place] [address] Short Order [employer] Social Work 05/07/20 Education Supervisor Relationship Specialty Start Date End Date Hilton Johnson MD [address] [place] [address] PCP - General Family Medicine 03/15/23 Prateek Moscoso LISW [address] [place] [address] Short Order [employer] Social Work 05/07/20 Team Status: Active Member Role Status Dates No Primary Care Physician Primary Care Provider Active Dr. Virginie Aguillon MD Attending Provider, Referring Pr ovider Active Education Supervisor Relationship Specialty Start Date End Date Hilton Johnson MD [address] [place] [address] PCP - General Family Medicine 03/15/23 Prateek Moscoso LISW [address] [place] [address] Short Order [employer] Social Work 05/07/20 Education Supervisor Relationship Specialty Start Date End Date Hilton Johnson MD [address] [place] [address] PCP - General Family Medicine 03/15/23 Prateek Moscoso LISW [address] [place] [address] Short Order [employer] Social Work 05/07/20 Team Status: Inactive Member Role Status Dates No Primary Care Physician Primary Care Provider Active Dr. Charly Almonte DO Emergency Provider Active Education Supervisor Relationship Specialty Start Date End Date Hilton Johnson MD [address] [place] [address] PCP - General Family Medicine 03/15/23 Prateek Moscoso LSW [address] [place], [place] [id number] Short Order [employer] Social Work 05/07/20 Education Supervisor Relationship Specialty Start Date End Date Hilton Johnson MD [address] [place] [address] PCP - General Family Medicine 03/15/23 Prateek Moscoso LSW [address] [place], [place] [id number] Short Order [employer] Social Work 05/07/20 Education Supervisor Relationship Specialty Start Date End Date Hilton Johnson MD [address] [place] [address] PCP - General Family Medicine 03/15/23 Prateek Moscoso LSW [address] [place] [address] Short Order [employer] Social Work 05/07/20 Education Supervisor Relationship Specialty Start Date End Date Hilton Johnson MD [address] [place] [address] PCP - General Family Medicine 03/15/23 Prateek Moscoso LSW [address] [place] [address] Short Order Fry [employer] Social Work 05/07/20 Goals (unrecognized section and [...] BE BASED ON THE PRIMARY CLINICAL RECORDS. [employer] [facility]. provides no warranty or guarantee of the accuracy or completeness of information in this document.
[2025-07-24] MEDS: Lidocaine 2% Viscous15 ML UDC 15 ML PO (04:30)
[2025-07-24] MEDS: Mag /Aluminum/Simeth WCH UDC 30 ML ORAL.SUSP PO (04:31)
[2025-07-24 04:39] LABS: AST(SGOT) 26 U/L (<=31); Alanine Aminotransfer ALT/SGPT 12 U/L (<=34); Albumin, Serum 3.6 g/dL (3.4-4.8); Alkaline Phosphatase 68 U/L (35-104); Anion Gap 13 (7-18); BUN 14 mg/dL (4-19); BUN/Creat Ratio 12.8 RATIO (10-20); Calcium,Total 9.1 mg/dL (7.6-11.0); Carbon Dioxide 18.4 mmol/L (20.0-29.0); Chloride 104 mmol/L (96-106); Estimated Creatinine Clearance 47.73 ml/min (50-250); Globulin 2.5 g/dL (2.2-4.2); Glucose 91 mg/dL (70-99); Potassium 4.2 mmol/L (3.5-5.1)
[2025-07-24 05:08] VITALS: BP 143/86; PULSE 94; RESP 18; TEMP 36.6; O2SAT 100
== END 2025-07-24 05:15 | disposition home or self-care (01) ==
PROVIDERS: Emergency Provider Emergency Medicine; PCP Internal Medicine; Visit Provider Emergency Medicine
DX: R10.12 Left upper quadrant pain (principal); D50.9 Iron deficiency anemia, unspecified; F10.10 Alcohol abuse, uncomplicated; Y90.9 Presence of alcohol in blood, level not specified; F17.210 Nicotine dependence, cigarettes, uncomplicated; F17.290 Nicotine dependence, other tobacco product, uncomplicated; Z98.84 Bariatric surgery status
CPT/HCPCS: 80053; 83690; 85025; 96361; 96374; 96375; 99282; A4216; J2405

== ENCOUNTER 2025-07-25 07:10 | Emergency (ER) | payer MEDICARE, MEDICAID, SELFPAY ==
[2025-07-25 07:11] VITALS: BP 122/88; PULSE 101; RESP 24; TEMP 36; O2SAT 100
--- NOTE | 2025-07-25 07:29 | EKG12_ITS ---
Test Reason : Blood Pressure : */* mmHG Vent. Rate : 68 BPM Atrial Rate : 68 BPM P-R Int : 144 ms QRS Dur : 78 ms QT Int : 410 ms P-R-T Axes : 66 18 64 degrees QTcB Int : 435 ms Normal sinus rhythm with sinus arrhythmia Possible Left atrial enlargement Borderline ECG Confirmed by Rich Koehler ([id number]), newspaper editor ENZO STANFORD ([id number]) on 07/27/2025 8:05:26 AM Referred By: Confirmed By: Rich Koehler
--- NOTE | 2025-07-25 07:32 | CT_ITS ---
PROCEDURE: CT CHEST, ABD, PELVIS WO CONT 07/25/2025 REASON FOR EXAM: Clinical history of left-sided pain TECHNIQUE: Chest, abdomen and pelvis CT without intravenous contrast. Coronal and Sagittal reconstruction series were provided. One or more dose reduction techniques were used (e.g., Automated exposure control, adjustment of the mA and/or kV according to patient size, use of iterative reconstruction technique. RADIATION DOSE SUMMARY: DLP: 663.66 mGycm COMPARISON: CT abdomen/pelvis 07/08/2025, CTA chest 01/25/2025 FINDINGS: CT CHEST: Pulmonary parenchyma: No focal lung consolidation. Bibasilar dependent atelectasis. Airways: The central airways are patent. Pleural space: No pneumothorax or pleural effusion. Heart and pericardium: The heart is normal in size. No pericardial effusion. Coronary artery calcifications. Mediastinum and lucía: Unremarkable. Thoracic vessels: Dilatation of the ascending thoracic aorta measuring up to 4.1 cm. The main pulmonary artery is normal in caliber. Atherosclerotic calcification of the thoracic aorta. Osseous structures: No aggressive osseous lesion. CT ABDOMEN / PELVIS: Noncontrast technique limits evaluation of the abdominal and pelvic viscera. Liver: Normal in size. Incompletely characterized hypoattenuating right hepatic lobe lesion measuring 1.4 x 1.0 cm which may reflect a hepatic cyst (series 3, image 22). Gallbladder: Unremarkable. No biliary ductal dilatation. Spleen: Unremarkable. Pancreas: Unremarkable. Adrenals: Unremarkable. Kidneys: Normal in size. No hydroureteronephrosis or nephroureterolithiasis. Urinary bladder: Unremarkable. Bowel: Prior gastric bypass. The small and large bowel are normal in caliber. No evidence of small bowel obstruction. Redemonstrated anastomotic sutures in the mid lower small bowel. Appendix: Not definitively visualized. Lymph nodes: No lymphadenopathy. Vasculature: No abdominal aortic aneurysm. Atherosclerotic calcification of the abdominal aorta and common iliac arteries. Peritoneum / Retroperitoneum: No abdominopelvic ascites. Reproductive Organs: Limited evaluation on CT. The uterus is present and appears unremarkable. No adnexal mass. Bones: No aggressive osseous lesions. Degenerative changes of the lumbar spine. Grade 1 L4-L5 and L5-S1 anterolisthesis. CT/CT Chest, Abd, Pelvis WO Cont IMPRESSION: 1. No acute pathology in the chest, abdomen, or pelvis on noncontrast CT. 2. Dilated ascending thoracic aorta measuring up to 4.1 cm. 3. Gastric bypass surgery. 4. Additional findings as discussed in the body of the report. Reading Location: [id number]
--- NOTE | 2025-07-25 07:33 | EDS_ITS ---
HPI History of Present Illness Chief Complaint: Abd Pain Informant: patient and family Narrative Narrative: Patient is 65-year-old female with history of prior gastric bypass, GERD, iron deficiency anemia from GI bleeding and malabsorption, PTSD, ADHD, hypertension presenting with worsening left-sided abdominal and back pain. She also reports 2 episodes of syncope. Patient states she has chronic pain on her left abdomen and shoulder but it has been worsening. She states that she was seen and evaluated for the same complaint yesterday but she cannot take the pain anymore. She denies any falls. She states she is taking everything for the pain but has a hard time listing when she is actually taking. States that something with a D for abdominal cramps and I suspect is dicyclomine which has been prescribed to her. She also tells me that over the past week she has passed out twice. Once when she was at the hospital and another time at home in her bedroom. She cannot tell me if she injured herself with this or actually fell. Denies any vomiting but does have nausea. States she intermittently does have dark stool but states been a couple days since her last bowel movement. Where she is not eating or drinking much. Denies any urinary symptoms. Chart review shows the patient was seen in our ER on 07/24 for the same complaint. No mention of the syncope at that time. She also recently had an admission from 07/08 to 07/11. Underwent EGD because of syncope likely secondary to severe anemia. EGD on 07/10 showed gastrojejunal anastomosis with ulceration. Recommended misoprostol and pantoprazole with no NSAIDs for 12 months. Was di scharged on Bentyl. [facility] Medical History Wears hearing aid Wears dentures Wears glasses Post-menopausal Walker as ambulation aid Arthritis Easy bruising Back pain Loss of consciousness Gastric reflux Shortness of breath on exertion History of pain when walking History of echocardiogram History of stress test Cardiology follow-up encounter History of normal Holter exam Iron deficiency anemia due to chronic blood loss Abdominal pain Depression Anxiety Smoker Migraines TIA (transient ischemic attack) Chronic kidney disease (CKD), stage III (moderate) Vitamin D deficiency Hyperlipidemia GERD (gastroesophageal reflux disease) PTSD (post-traumatic stress disorder) Tobacco use ETOH abuse Iron (Fe) deficiency anemia History of GI bleed Chest pain Iron deficiency Insomnia Anxiety and depression Obesity (BMI 30-39.9) TMJ (temporomandibular joint syndrome) Chronic pain Hypertension ADHD (attention deficit hyperactivity disorder) Postsurgical malabsorption, not elsewhere classified B12 deficiency Anemia PUD (peptic ulcer disease) Home Medications ?Medication ?Instructions ?Recorded ?Last Taken ?Type rollator walker with seat #1 ea 10/09/20 Unknown Rx syringe with needle 1 mL 25 gauge #100 ea 03/05/21 Unk nown History x 1 valacyclovir 500 mg tablet 500 mg PO DAILY Herpes Flar e #90 10/28/21 01/23/25 Rx (Valtrex) tabs cyclobenzaprine 10 mg tablet 10 mg PO TID muscle spams 07/24/24 07/08/25 History albuterol sulfate 90 mcg/actuation 2 puff inhalation Q 4H PRN SOB, 01/25/25 01/23/25 History aerosol inhaler wheezing ferrous gluconate 324 mg (38 mg 324 mg PO DAILY supple ment 03/27/25 07/17/25 History iron) tablet cholecalciferol (vitamin D3) 25 25 mcg PO DAILY vitami n 07/08/25 Unknown History mcg (1,000 unit) tablet acetaminophen 500 mg tablet 1,000 mg (2 x 500 mg) PO Q 8H PRN 07/11/25 Unknown Rx PRN pain 1-10 #0 tabs dicyclomine 10 mg capsule 10 mg PO Q6H PRN PRN abdomin al 07/11/25 Unknown Rx cramp #30 caps misoprostol 200 mcg tablet 200 mcg PO 4X/DAY #120 tabs 07/11/25 Unknown Rx pantoprazole 40 mg tablet,delayed 40 mg PO BID #60 tab s 07/11/25 Unknown Rx release hyoscyamine sulfate 0.125 mg tablet 0.125 mg PO Q4H ND N PRN dyspepsia 07/13/25 Unknown Rx #180 tabs bisacodyl 5 mg tablet,delayed See Rx Instructions .Rou te 07/17/25 Unknown Rx release (Dulcolax (bisacodyl)) .COMPLEX #4 tabs polyethylene glycol 3350 17 See Rx Instructions .Route 07/17/25 Unknown Rx gram/dose oral powder (Miralax) .COMPLEX #238 grams triamterene 37.5 1 cap PO DAILY 07/18/25 Unkn own History mg-hydrochlorothiazide 25 mg capsule peg 3350-electrolytes 236 240 ml PO Q10M #4,000 mL Unknown Rx gram-22.74 gram-6.74 gram-5.86 gram solution (Golytely) dextroamphetamine-amphetamine 5 mg 5 mg PO BID 30 days #60 tabs 07/24/25 Unknown Rx tablet dextroamphetamine-amphetamine 5 mg 5 mg PO BID 30 days #60 tabs 07/24/25 Unknown Rx tablet escitalopram oxalate 10 mg tablet 10 mg PO QDAY mental health #90 07/24/25 Unknown Rx tabs ondansetron 8 mg disintegrating 8 mg PO Q8H PRN nausea and 07/24/25 Unknown Rx tablet vomiting #10 tabs sucralfate 1 gram tablet (Carafate) 1 g PO TID #90 tab s 07/25/25 Unknown Rx Allergy/AdvReac Type Severity Reaction Status Date / Time buprenorphine (From [employer]) Allergy Rash Verified 07/25/25 07:11 NSAIDS (Non-Steroidal AdvReac Nausea Verified 07/25/25 07:11 Anti-Inflamma Family History Father Myocardial infarction Alcohol abuse Heart disease CAD (coronary artery disease) Mother CVA (cerebral vascular accident) Hypertension Thrombosis Alcohol abuse Sister Lupus Surgical History History of esophagogastroduodenoscopy (EGD) History of esophagogastroduodenoscopy (EGD) History of cataract surgery Status post gastric bypass for obesity Hx of bariatric surgery S/P H/O gastric bypass (~1999) Social History household members: other details: grandson housing: house current occupational status: retired and disabled history of recent travel: No sexually active: No Smoking Status: Current some day smoker tobacco type: cigarettes and cigars Smokeless tobacco user: other alcohol intake: current alcohol intake frequency: 3 or more drinks per day details: Patient reports history of at 2-tall boys daily at least. substance use type: marijuana what type of physical activity do you participate in: none and walking seatbelt use: always do you feel safe at home: Yes additional social history: single ROS [facility] ED Constitutional Constitutional ED: Reports other Details: Lightheaded intermittently, reports episodes of syncope in the last week ; Denies fever(s) Cardiovascular Cardiovascular: Denies chest pain Respiratory/Chest Respiratory/Chest: Denies cough or dyspnea Gastrointestinal Gastrointestinal: Reports abdominal pain and nausea; Denies diarrhea, melena or vomiting Genitourinary Genitourinary ED: Denies dysuria Musculoskeletal Musculoskeletal: Reports back pain Integumentary Denies rash Neurologic Neurologic: Denies weakness Psychiatric Psychiatric: Reports anxiety Hematologic/Lymphatic Hematologic/Lymphatic: Denies easy bleeding or easy bruising EXAM Physical Exam Const Vital Signs: 07/25/25 07:11 07/25/25 09:10 07/25/25 10:28 Temperature 96.8 F L Temperature Source Temporal Pulse Rate 101 H 89 Pulse Rate [Lying] 64 Pulse Rate [Sitting (for 1 minute prior to obtaining)] 69 Pulse Rate [Standing (for 1 minute prior to obtaining)] 76 Respiratory Rate 24 H 18 Blood Pressure 122/88 H 138/82 H Blood Pressure [Lying] 131/81 H Blood Pressure [Sitting (for 1 minute prior to obtaining)] 146/86 H Blood Pressure [Standing (for 1 minute prior to obtaining)] 127/95 H Blood Pressure Mean 99 100 Blood Pressure Mean [Lying] 97 Blood Pressure Mean [Sitting (for 1 minute prior to obtaining)] 106 Blood Pressure Mean [Standing (for 1 minute prior to obtaining)] 105 Pulse Ox 100 97 Oxygen Delivery Method Room Air 07/25/25 11:00 07/25/25 12:27 Temperature 98 F Temperature Source Pulse Rate 88 88 Pulse Rate [Lying] Pulse Rate [Sitting (for 1 minute prior to obtaining)] Pulse Rate [Standing (for 1 minute prior to obtaining)] Respiratory Rate 18 18 Blood Pressure 140/80 H 148/68 H Blood Pressure [Lying] Blood Pressure [Sitting (for 1 minute prior to obtaining)] Blood Pressure [Standing (for 1 minute prior to obtaining)] Blood Pressure Mean 100 94 Blood Pressure Mean [Lying] Blood Pressure Mean [Sitting (for 1 minute prior to obtaining)] Blood Pressure Mean [Standing (for 1 minute prior to obtaining)] Pulse Ox 98 96 Oxygen Delivery Method Constitutional Narrative: Nontoxic-appearing. Patient hunched over on her left side tearful on initial evaluation HEENT Reports moist mucous membranes Negative for trauma Eyes PERRL General Eye ED: Negative for scleral icterus Neck supple Chest Wall inspection of chest normal and palpation of chest normal Resp normal respiratory effort and clear to auscultation bilaterally Cardio regular rate, regular rhythm and no murmurs GI GI Narrative: No rebound tenderness Auscultation: normoactive bowel sounds Palpation: soft and tender LUQ (Voluntary guarding present) Back/Spine no CVA tenderness Back/Spine Narrative: Patient points to her left lower thoracic back as area of pain. There is no midline tenderness. No reproducibility with palpation. She has normal range of motion of her back and is moving around without movements causing increased pain Extremity normal to inspection Extremity Narrative: Mild diffuse pain to the left shoulder. Not acutely reproducible. No deformity or obvious injury to the shoulder Neuro oriented x3 Sensorium / Orientation: alert Motor Exam: general weakness Psych Mood & Affect: anxious and tearful Skin no rashes or lesions noted MDM MDM MDM Narrative Medical decision making narrative: Patient is evaluated for recurrent abdominal pain that radiates to her left flank and shoulder. Chart review shows that she has had 3 visits in the last week for the same complaint. She is previously been seen by GI and had a recent EGD as well which did show ulceration at her anastomosis site. Differential includes chronic pain, bleeding ulcer, acute on chronic anemia, intra-abdominal infection/abscess, FADIA, pancreatitis and electrolyte derangements. Patient initially was given IV morphine, Zofran and Protonix for symptoms. Repeat evaluation she is starting to feel improved but her pain does return. Is given GI cocktail and she looks a lot more comfortable when she first came in but says she still having pain. Her CT and lab work is largely unremarkable does not show any acute process to explain her severe pain. Her lactate is normal so the low suspicion for an acute ischemic process or vascular process. In addition she is neuro vastly stable in the emergency room. EKG does not show any acute ischemic changes or high-sensitivity troponin is normal. Given this I do not think she requires further trending and low suspicion for ACS as the cause. I did discuss the case with Dr. Hansen who is really with the patient. He wants to stress that the patient is still taking her Carafate and misoprostol. He questions her compliance. Patient is insistent that she is taking it but she was just started on the Carafate yesterday. She is only had a couple doses. Chart review shows that she was given a 3-day supply and will be given further supply. As patient does have a history of alcohol dependency And seems to have more chronic pain Dr. Friend does not feel comfortable sending the patient home with opioids. I am in agreement with this. I did discuss that patient could be admitted for pain control I will if her pain is this severe. Patient states that she does not want to be admitted at this time. Counseled the importance of close adherence to her medications as well as abstaining from alcohol use. Discharged home in stable condition. Ambulates out of the emergency room with a steady gait. Lab Data Attestation: I reviewed the patient's lab results. Labs: Laboratory Results - last 24 hr 07/25/25 07/25/25 07/25/25 08:17 08:50 10:08 WBC 4.7 RBC 4.07 L Hgb 9.3 L Hct 30.3 L MCV 74.4 L MCH 22.9 L MCHC 30.7 L RDW Std Deviation 69.4 H RDW Coeff of Adelia 26.8 H Plt Count 514 H MPV 8.4 Immature Gran % (Auto) 0.200 Neut % (Auto) 58.0 Lymph % (Auto) 31.5 [place] % (Auto) 8.2 Eos % (Auto) 1.5 Baso % (Auto) 0.6 Absolute Neuts (auto) 2.7 Absolute Lymphs (auto) 1.47 Nucleated RBC % 0 Anisocytosis 2+ Sodium 136 Potassium 4.5 Chloride 101 Carbon Dioxide 20.4 Anion Gap 15 BUN 11 Creatinine 1.10 Est GFR (MDRD) Non-Af 56 L BUN/Creatinine Ratio 9.9 L Glucose 104 H Lactic Acid < 1.0 Calcium 10.0 Total Bilirubin 0.34 AST 26 ALT 12 Alkaline Phosphatase 92 Troponin T High Sens 13 Total Protein 7.3 Albumin 4.2 Globulin 3.1 Albumin/Globulin Ratio 1.4 Lipase 31 Urine Color Yellow Urine Clarity Clear Urine pH 8.0 Ur Specific [place] 1.015 Urine Protein Negative Urine Glucose (UA) Normal Urine Ketones Negative Urine Occult Blood 25 H Urine Nitrite Negative Urine Bilirubin Negative Urine Urobilinogen Normal Ur Leukocyte Esterase Negative Urine RBC 0 SEEN Urine WBC 0 SEEN Ur Squamous Epith Cells 0-5 SEEN Urine Bacteria 0 SEEN Urine Mucus 0 SEEN Ethyl Alcohol < 10.1 Radiography Diagnostic Testing: Clinical Impression(s) from Imaging Studies Chest/Abdomen/Pelvis CT 07/25/25 07:32 IMPRESSION: 1. No acute pathology in the chest, abdomen, or pelvis on noncontrast CT. 2. Dilated ascending thoracic aorta measuring up to 4.1 cm. 3. Gastric bypass surgery. 4. Additional findings as discussed in the body of the report. Reading Location: [facility] Rhythm Strip Rhythm Strip: Sinus Rhythm Rate: 68 Ectopy: None EKG Initial EKG: Attestation: I personally reviewed and interpreted this EKG as follows: Interpretation: Sinus Rhythm Comments: Normal sinus rhythm at a rate of 68 bpm with sinus arrhythmia Normal axis Normal intervals Normal ST segment Management Discussion w/another healthcare provider: C D Still Operator Discharge Plan Triage Chief Complaint: Abd Pain ED Provider: Gila Reeves Dx/Rx/DC Orders Clinical Impression: Chronic left flank pain, Anemia, Status post gastric bypass for obesity, GERD (gastroesophageal reflux disease) Instructions: ED Gastritis Ulcer No Abx Prescriptions: Continued sucralfate [Carafate] 1 gram tablet 1 g PO TID Qty: 90 0RF No Action (DME) syringe with needle 1 mL 25 gauge x 1 syringe See Rx Instructions .ROUTE .MEDSUPPLY Qty: 100 Rx Instructions: As directed ferrous gluconate 324 mg (38 mg iron) tablet 324 mg PO DAILY dextroamphetamine-amphetamine 5 mg tablet 5 mg PO BID 30 Days Qty: 60 0RF Rx Instructions: administer doses at least 4-6 hours apart dextroamphetamine-amphetamine 5 mg tablet 5 mg PO BID 30 Days Qty: 60 0RF Rx Instructions: administer doses at least 4-6 hours apart escitalopram oxalate 10 mg tablet 10 mg PO QDAY Qty: 90 0RF cyclobenzaprine 10 mg tablet 10 mg PO TID Patient Comments: leg spasm cholecalciferol (vitamin D3) 25 mcg (1,000 unit) tablet 25 mcg PO DAILY acetaminophen 500 mg Tablet 1,000 mg PO Q8H PRN PRN (Reason: pain 1-10) Qty: 0 0RF misoprostol 200 mcg Tablet 200 mcg PO 4X/DAY Qty: 120 2RF pantoprazole 40 mg tablet,delayed release (DR/EC) 40 mg PO BID Qty: 60 2RF dicyclomine 10 mg capsule 10 mg PO Q6H PRN PRN (Reason: abdominal cramp) Qty: 30 0RF ondansetron 8 mg tablet,disintegrating 8 mg PO Q8H PRN (Reason: nausea and vomiting) Qty: 10 0RF albuterol sulfate 90 mcg/actuation HFA aerosol inhaler 2 puff INHALATION Q4H PRN (Reason: SOB, wheezing) Patient Comments: BREATHING triamterene-hydrochlorothiazid 37.5-25 mg capsule 1 cap PO DAILY (DME) rollator walker with seat See Rx Instructions .Route .MEDSUPPLY Qty: 1 0RF Rx Instructions: As directed valacyclovir [Valtrex] 500 mg tablet 500 mg PO DAILY Qty: 90 1RF hyoscyamine sulfate 0.125 mg tablet 0.125 mg PO Q4H PRN PRN (Reason: dyspepsia) Qty: 180 0RF bisacodyl [Dulcolax (bisacodyl)] 5 mg tablet,delayed release (DR/EC) See Rx Instructions .ROUTE .COMPLEX Qty: 4 0RF Rx Instructions: Take 4 tablets at once for colonoscopy prep polyethylene glycol 3350 [Miralax] 17 gram/dose powder See Rx Instructions .ROUTE .COMPLEX Qty: 238 0RF Rx Instructions: Mix entire bottle into 64oz clear liquid for colonoscopy peg 3350-electrolytes [Golytely] 236-22.74-6.74 -5.86 gram recon soln 240 ml PO Q10M Qty: 4000 0RF Rx Instructions: until fecal effluent is clear Primary Care Provider: Elyssa Wright Referrals: Elyssa Wright MD [Primary Care Provider, Internal Medicine] Activity Restrictions/Additional Instructions: Your lab work is all grossly normal. Your lab work is actually improving. CT did not show any acute abnormalities of your chest abdomen and pelvis. I suspect you have inflammation of your stomach that was found on your endoscopy earlier this month that is causing your pain. I spoke with the GI specialist who stressed the importance of continue to take your misoprostol, Carafate, pantoprazole and other prescribed medications to help this heal. It is importantly abstain from any alcohol or high acidic foods as well. We did discuss admission for pain control but at this time you would like to go home. Print Language: American Disposition Disposition: Home, Self Care Discharge Date/Time: 07/25/25 12:28
--- OUTSIDE RECORDS SUMMARY | 2025-07-25 07:34 | XMS RPT_ITS | CCD ---
Author Organization [facility] ion [facility] Care Team Providers Care Die Maker Electronic Name Role Phone Prateek Lockhart Unavailable Care Physician, No Primary Primary Care Provider Unavailable Dr. Albert Carbone Emergency Provider Dr. Jeniffer Campos Admit Provider [phone] Jeniffer Campos Other Provider Dr. Drew Solis Attending Provider Unavailable Dr. Drew Solis Other Provider Unavailable Dr. Margarette Christensen Attending Provider Dr. Virginie Aguillon Attending Provider Dr. Virginie Aguillon Other Provider Prateek Lockhart Unavailable Hilton Johnson MD Primary Care Provider [phone] Prateek Galarza Unavailable PROVIDER, UNKNOWN Admitting Unavailable PROVIDER, UNKNOWN Attending Unavailable BUNNY YO MD Attending Unavailable BUNNY YO MD Primary Care Unavailable Unavailable Primary Care Provider UnavailJEANA Jimenez Primary Care Unavailable Care Physician, No Primary Referring Unava ilable Care Physician, No Primary Primary Care Unava ilable Angie Judd Attending Unavail able Peggy GENERAL 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, Azalea Attending Unavailable Care Physician, No Primary Primary Care Unava ilable Peggy GENERAL 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, Azalea Referring Unavailable Virginie Aguillon Consulting Unavailable [...] Unavail able Lindsay, Ta Referring Unavailable Lindsay, Thelma Attending Unavailable Tristan, Stoney Chi Attending Unavailable [...] to adverse reactions to drug 4 Nausea [facility] Work Phone: (8 sources) Buprenorphine; Translations: [buprenorphine] Drug Allergy 2 [facility] (7 sources) Nonsteroidal Anti-inflammatory Compounds Propensity to adverse reactions 2 N[facility] (1 source) Iron and iron compound; Translations: [iron containing compounds] Drug allergy [facility] (1 source) NSAIDs; Translations: [NSAIDS (NON-STEROIDAL ANTI-INFLAMMATORY DRUG)] Propensity to adverse reactions to drug (disorder) 4 [facility] (1 source) Buprenorphine Drug Allergy 5 [facility] (1 source) NSAIDs Drug allergy (disorder) 5 [facility] Medications Current Medications Medication Drug [...] week vitamin D2 ergocalciferol (DRISDOL) 1.25 MG (66365 UT) capsule Take 1 Capsule by mouth once weekly. 12 Capsule 3 03/09/2023 03/08/2024 Active Start: 11-26-2021 take 48240 [IU] by m outh every other week Ergocalciferol (Vitamin D2) Active 89917 UNIT PO every 2 weeks November 26, 2021 4:30pm Start: 11-26-2021 End: 11-26-2021 take 77529 [IU] by mouth every week Ergocalciferol (Vitamin D2) Discontinued 08442 UNIT PO EVERY WEEK 12 90 November 26, 2021 2:13pm November 26, 2021 4:30pm Start: 06-06-2020 End: 11-26-2021 take 10243 [IU] by mouth two times weekly Ergocalciferol (Vitamin D2) Discontinued 16756 UNIT PO TWICE A WEEK 60 90 June 10, 2021 6:28pm November 26, 2021 2:13pm Start: 07-12-2019 End: 06-06-2020 take 27738 [IU] by mouth every week Ergocalciferol (Vitamin D2) Discontinued 38092 UNIT PO Q7D July 12, 2019 1:00am [...] by mouth every six hours Hydrocodone-Acetami nophen ([place]) 7.5-325 mg tablet Discontinued 1 TABLET PO EVERY 6 HOURS June 05, 2020 9:34am August 01, 2020 3:19pm Dr Ortega Start: 05-14-2018 [place] 325- 7.5 mg oral tablet 325-7.5, Oral, [...] September 25, 2020 12:44pm polyethylene glycol 3350 14856 mg powder for oral solution (1 source) [...] Interpretation Reference Range Facility MR/BMS.BPon 05-31-2025 MR/BMS.BP [facility] [address], [address] [place] [address] OFFICE VISIT Date of Service: 05/31/25 MR#: [id number] Acct: [id number] Name: MORENA PATTON Rep #: [id number] : 1960 Provider: KATIE dewey Age/Sex: 65/F Location: [facility] Status: Signed Intake Vital Signs 03/27/25 11:23 05/31/25 09:49 Height 5 ft 6 in 5 ft 6 in Weight: 155 lb 151 lb BMI 25.0 24.3 BP 130/85 H 106/71 Blood Pressure Location Lt brachial Lt brachial Position Sitting Sitting Respiration 18 16 Pulse 87 69 Pulse Source Monitor Monitor BP Intake Visit Reasons: Follow up Accompanied by: Self Allergies buprenorphine (From [facility]) Allergy (Verified 05/31/25 09:54) Rash NSAIDS (Non-Steroidal [...] Surgical History (Updated 05/31/25 @ 09:57 by Jaene Friedman) History of cataract surgery Status post [...] and van (more content not included)... [facility] Echo Completeon 04-26-2025 Echo Complete [facility] [address] [place] [address] Echo Complete 04/26/25 0947 MR#: [id number] Acct: [id number] Name: MORENA PATTON Rep #: [id number] : 1960 65 From: Ta Montoya MD Attending Dr: Dr. Ta Montoya MD Status: MACY PHIPPS Ordering Dr: Angie Sandoval Date: 04/03 12/24 Location: [facility] Sex: F AA Admitted: Reason For Study [...] Date Dictated: 04/26/2547 Date Transcribed: 04/26/25 1239 Stroke Program Coordinator: Signed [facility] Stress Reporton 04-26-2025 Stress Report [facility] [address] [place] [address] MR#: [id number] Acct: [id number] Name: MORENA PATTON Rep #: [id number] : 1960 65 From: Ta Montoya MD [...] Physician Date Dictated: 04/26/251327 Date Transcribed: 04/26/251327 Stroke Program Coordinator: [place] Signed [facility] Cardiology Visit Reporton Cardiology Visit Report [facility] [address] [place] [address] OFFICE VISIT Date of Service: 03/27/25 MR#: [id number] Acct: [id number] Name: MORENA PATTON Rep #: [id number] : 1960 Provider: MANUELA Tsang Age/Sex: 65/F Location: [facility] Status: Signed HPI HPI [...] Monitor Intake Visit Reasons: 7 M FU Wastewater Treatment Operator Required: No Accompanied by: Daughter In Law [...] with activity (more content not included)... [facility] CBC W/Diff, Automatedon 08- Anisocytosis Ql (Bld) 2+ [facility] Comment on above: Performed By: #### L 100.0100, L500.4050, L503.6550, L503.6030 #### [facility] [address] [place], [address] PLT EST A Normal [facility] Comment on above: Performed By: #### L 100.0100, L500.4050, L503.6550, L503.6030 #### [facility] [address] [place], [address] TARGET CELLS 2+ [facility] Comment on above: Performed By: #### L 100.0100, L500.4050, L503.6550, L503.6030 #### [facility] [address] [place], [address] Comprehensive Metabolic Prof ilon 03-05-2025 Albumin [Mass/Vol] 4.2 g/dL Normal 3.4-4.8 [facility] Comment on above: Performed By: #### L 100.0100, L500.4050, L503.6550, L503.6030 #### [facility] [address] [place], [address] Albumin/Globulin [Mass ratio] 1.6 {ratio} Normal 0.9-2.4 [facility] Comment on above: Performed By: #### L 100.0100, L500.4050, L503.6550, L503.6030 #### [facility] [address] [place], [address] ALK PHOS 98 U/L Normal 35-104 [facility] Comment on above: Performed By: #### L 100.0100, L500.4050, L503.6550, L503.6030 #### [facility] [address] [place], [address] ALT [Catalytic activity/Vol] 12 U/L Normal <=34 [facility] Comment on above: Performed By: #### L 100.0100, L500.4050, L503.6550, L503.6030 #### [facility] [address] [place], [address] AST [Catalytic activity/Vol] 26 U/L Normal <=31 [facility] Comment on above: Performed By: #### L 100.0100, L500.4050, L503.6550, L503.6030 #### [facility] [address] [place], [address] Bilirubin [Mass/Vol] 0.23 mg/dL Normal 0.00-1.30 [facility] Comment on above: Performed By: #### L 100.0100, L500.4050, L503.6550, L503.6030 #### [facility] [address] [place], [address] BUN/CRE 12.9 RATIO Normal 10-20 [facility] Comment on above: Performed By: #### L 100.0100, L500.4050, L503.6550, L503.6030 #### [facility] [address] [place], [address] Calcium [Mass/Vol] 9.6 mg/dL Normal 7.6-11.0 [facility] Comment on above: Performed By: #### L 100.0100, L500.4050, L503.6550, L503.6030 #### [facility] [address] [place], [address] Chloride [Moles/Vol] 107 mmol/L Normal 98-108 [facility] Comment on above: Performed By: #### L 100.0100, L500.4050, L503.6550, L503.6030 #### [facility] [address] [place], [address] CO2 [Moles/Vol] 21.1 mmol/L Normal 21.0-32.0 [facility] Comment on above: Performed By: #### L 100.0100, L500.4050, L503.6550, L503.6030 #### [facility] [address] [place], [address] Creatinine [Mass/Vol] 0.87 mg/dL Normal 0.70-1.20 [facility] Comment on above: Performed By: #### L 100.0100, L500.4050, L503.6550, L503.6030 #### [facility] [address] [place], [address] GAP 12 Normal 5-15 [facility] Comment on above: Performed By: #### L 100.0100, L500.4050, L503.6550, L503.6030 #### [facility] [address] [place], [address] GFR/1.73 sq M.predicted among non-blacks MDRD (S/P/Bld) [Vol rate/Area] 74 mL/min/{1.73_m2} Normal >60 [facility] Comment on above: Result Comment: mL/m in/1.73m2 CKD-EPI Creatinine Equation (2020) Performed By: #### L 100.0100, L500.4050, L503.6550, L503.6030 #### [facility] [address] [place], [address] Globulin (S) [Mass/Vol] 2.7 g/dL Normal 2.2-4.2 [facility] Comment on above: Performed By: #### L 100.0100, L500.4050, L503.6550, L503.6030 #### [facility] [address] [place], [address] Glucose [Mass/Vol] 108 mg/dL High 70-99 [facility] Comment on above: Performed By: #### L 100.0100, L500.4050, L503.6550, L503.6030 #### [facility] [address] [place], [address] Potassium [Moles/Vol] 4.3 mmol/L Normal 3.3-5.1 [facility] Comment on above: Performed By: #### L 100.0100, L500.4050, L503.6550, L503.6030 #### [facility] [address] [place], [address] Sodium [Moles/Vol] 140 mmol/L Normal 133-145 [facility] Comment on above: Performed By: #### L 100.0100, L500.4050, L503.6550, L503.6030 #### [facility] [address] [place], [address] T PROT 6.9 g/dL Normal 5.9-8.4 [facility] Comment on above: Performed By: #### L 100.0100, L500.4050, L503.6550, L503.6030 #### [facility] [address] [place], [address] Urea nitrogen [Mass/Vol] 11 mg/dL Normal 4-19 [facility] Comment on above: Performed By: #### L 100.0100, L500.4050, L503.6550, L503.6030 #### [facility] [address] [place], [address] Ferritinon 03-05-2025 Ferritin [Mass/Vol] 36 ng/mL Normal 22-378 [facility] Comment on above: Performed By: #### L 100.0100, L500.4050, L503.6550, L503.6030 #### [facility] [address] [place], [address] Iron+Iron Binding Capacityon 03-05-2025 Iron [Mass/Vol] 42 ug/dL Low 50-170 [facility] Comment on above: Performed By: #### L 100.0100, L500.4050, L503.6550, L503.6030 #### [facility] [address] [place], [address] IRON SATURATION 11.0 Low 13-59 [facility] Comment on above: Performed By: #### L 100.0100, L500.4050, L503.6550, L503.6030 #### [facility] [address] [place], [address] TIBC 382 ug/dL Normal 250-450 [facility] Comment on above: Performed By: #### L 100.0100, L500.4050, L503.6550, L503.6030 #### [facility] [address] [place], [address] UIBC 340 ug/dL Normal 228-428 [facility] Comment on above: Performed By: #### L 100.0100, L500.4050, L503.6550, L503.6030 #### [facility] [address] [place], [address] Oncology Visit Reporton Oncology Visit Report [facility] [place] [facility] [address] [place] [address] OFFICE VISIT Date of Service: 03/05/25 1152 MR#: [id number] Acct: [id number] Name: MORENA PATTON Rep #: [id number] : 1960 From: Jose Rachel MD Age/Sex: 65/F Location: [facility] Status: Signed HPI Subjective Date of [...] transfer of her hematology care to myself. [facility] Medical History (Updated 03/05/25 @ 12:10 by [...] 100 Oxygen Delivery Method room air Intake Wastewater Treatment Operator Required: No Accompanied by: Grandson Is patient in pain?: Yes (headache) Pain scale (1-10): 5 Allergies buprenorphine (From [facility]) Allergy (Verified 03/05/25 11:55) Rash NSAIDS (Non-Steroidal Anti-Inflamma Adverse Reaction (Verified 03/05/25 11:5 (more content not included)... [facility] Vitamin B12on 03-05-2025 Cobalamin (Vitamin B12) [Mass/Vol] 442 pg/mL Normal 180-914 [facility] Comment on above: Order Comment: ADD O N Performed By: #### L 503.0106 #### [facility] [address] 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 Could not absorb oral iron) Disposition Disposition (needs filled in before D/C Order can be placed): Home, Self Care 01/27/25 1151 Lam Espinal MD CC: Dr. Virginie Aguillon MD; No Primary Care Physician Signed [facility] Basic Metabolic Profile (BMP )on 01-26-2025 BUN/CRE 13.3 RATIO Normal 10-20 [facility] Comment on above: Performed By: #### L 503.0106 #### [facility] [address] [place], [address] Calcium [Mass/Vol] 9.0 mg/dL Normal 7.6-11.0 [facility] Comment on above: Performed By: #### L 503.0106 #### [facility] [address] [place], [address] Chloride [Moles/Vol] 107 mmol/L Normal 98-108 [facility] Comment on above: Performed By: #### L 503.0106 #### [facility] [address] [place], [address] CO2 [Moles/Vol] 18.7 mmol/L Low 21.0-32.0 [facility] Comment on above: Performed By: #### L 503.0106 #### [facility] [address] [place], [address] Creatinine [Mass/Vol] 0.92 mg/dL Normal 0.70-1.20 [facility] Comment on above: Performed By: #### L 503.0106 #### [facility] [address] [place], [address] ECRCL 57.83 ml/min Normal 50-250 [facility] Comment on above: Performed By: #### L 503.0106 #### [facility] [address] [place], [address] GAP 11 Normal 5-15 [facility] Comment on above: Performed By: #### L 503.0106 #### [facility] [address] [place], [address] GFR/1.73 sq M.predicted among non-blacks MDRD (S/P/Bld) [Vol rate/Area] 70 mL/min/{1.73_m2} Normal >60 [facility] Comment on above: Result Comment: mL/m in/1.73m2 CKD-EPI Creatinine Equation (2020) Performed By: #### L 503.0106 #### [facility] [address] [place], [address] Glucose [Mass/Vol] 90 mg/dL Normal 70-99 [facility] Comment on above: Performed By: #### L 503.0106 #### [facility] [address] [place], [address] Potassium [Moles/Vol] 3.8 mmol/L Normal 3.3-5.1 [facility] Comment on above: Performed By: #### L 503.0106 #### [facility] [address] [place], [address] Sodium [Moles/Vol] 136 mmol/L Normal 133-145 [facility] Comment on above: Performed By: #### L 503.0106 #### [facility] [address] [place], [address] Urea nitrogen [Mass/Vol] 12 mg/dL Normal 4-19 [facility] Comment on above: Performed By: #### L 503.0106 #### [facility] [address] [place], [address] CBC W/Diff, Automatedon -2 TEAR DROP 1+ [facility] Comment on above: Performed By: #### L 100.0100, L501.9520, L500.2500 #### [facility] [address] [place], [address] SCHISTOCYTES 1+ [facility] Comment on above: Performed By: #### L 100.0100, L501.9520, L500.2500 #### [facility] [address] [place], [address] TARGET CELLS 1+ [facility] Comment on above: Performed By: #### L 100.0100, L501.9520, L500.2500 #### [facility] [address] [place], [address] Anisocytosis Ql (Bld) 1+ [facility] Comment on above: Performed By: #### L 100.0100, L501.9520, L500.2500 #### [facility] [address] [place], [address] MACROCYTOSIS 1+ [facility] Comment on above: Performed By: #### L 100.0100, L501.9520, L500.2500 #### [facility] [address] [place], [address] POLYCHROMASIA 1+ [facility] Comment on above: Performed By: #### L 100.0100, L501.9520, L500.2500 #### [facility] [address] [place], [address] Gastric Emptying Studyon Gastric Emptying Study [facility] Imaging Services [address] [place] [address] Gastric Emptying Study MR#: [id number] Acct: [id number] Name: MORENA PATTON Rep #: [id number] : 1960 F 64 From: Drew Santiago PCP: Care Physician,No Primary Status: ADM CYRIL Study: Gastric Emptying Study Date of Exam: 01/26/25 Exam# [id number] Ordering Dr: Virginie Aguillon MD PROCEDURE: GASTRIC [...] geometric mean was used to calculate a pqon-ydebynjl-hwubo. Medications taken in the past 24 hours [...] semi solid phase gastric emptying Reading Location: [place] [address] CC: Dr. Gila Reeves DO; Dr. Virginie Aguillon MD; Dr. Lam Espinal MD; No Primary Care Physician Stroke Program Coordinator: Signed [facility] Iron+Iron Binding Capacityon 01-26-2025 TIBC 501 ug/dL High 250-450 [facility] Comment on above: Performed By: #### L 503.0106 #### [facility] [address] [place], [address] Thyroid Stim Hormone (TSH)on 01-26-2025 TSH 2.830 uIU/mL Normal 0.300-4.20 0 [facility] Comment on above: Performed By: #### L 503.0106 #### [facility] [address] [place], [address] Abdomen/Pelvis W IV Cont ONL Yon 01-25-2025 Abdomen/Pelvis W IV Cont ONLY [facility] Imaging Services [address] [address] Abdomen/Pelvis W IV Cont ONLY MR#: [id number] Acct: [id number] Name: MORENA PATTON Rep #: [id number] : 1960 F 64 From: Javad juarez MD PCP: Care Physician,No Primary Status: REG ER Study: Abdomen/Pelvis W IV Cont ONLY Date of Exam: Exam# [id number] Ordering Dr: Gila Reeves DO PROCEDURE: ABDOMEN/PELVIS [...] No acute abnormality is seen. Reading Location: [id number] CC: Dr. Gila Reeves DO; No Primary Care Physician Stroke Program Coordinator: Signed [facility] CBC W/Diff, Automatedon 01-01 PLT EST ADEQUATE Normal [facility] Comment on above: Performed By: #### L 500.4050, L501.2450, L100.0100 #### [facility] [address] [facility] [place], [address] CTA Chest W/WO Contraston CTA Chest W/WO Contrast [facility] Imaging Services [address] [place], [place] [address] CTA Chest W/WO Contrast MR#: [id number] Acct: [id number] Name: MORENA PATTON Rep #: [id number] : 1960 F 64 From: Javad juarez MD PCP: Care Physician,No Primary Status: REG ER Study: CTA Chest W/WO Contrast Date of Exam: 01/25/25 Exam# [id number] Ordering Dr: Gila Reeves DO PROCEDURE: CTA [...] No evidence of pulmonary embolism. Reading Location: [facility] CC: Dr. Gila Reeves DO; No Primary Care Physician Stroke Program Coordinator: Signed [facility] Chest PA and Lateralon 01-25 Chest PA and Lateral [facility] Imaging Services [address] [place], [place] [id number] Chest PA and Lateral MR#: [id number] Acct: [id number] Name: MORENA PATTON Rep #: [id number] : 1960 F 64 From: Drew Santiago PCP: Care Physician,No Primary Status: REG ER Study: Chest PA and Lateral Date of Exam: 01/25/25 Exam# [id number] Ordering Dr: Gila Reeves DO PROCEDURE: CHEST [...] interval osseous change is seen. Reading Location: [place] [address] CC: Dr. Gila Reeves DO; No Primary Care Physician Stroke Program Coordinator: Signed [facility] Comprehensive Metabolic Prof ilon 01-25-2025 Albumin [Mass/Vol] 4.3 g/dL Normal 3.4-4.8 [facility] Comment on above: Performed By: #### L 500.4050, L501.2450, L100.0100 #### [facility] [address] [place], [address] Albumin/Globulin [Mass ratio] 1.4 {ratio} Normal 0.9-2.4 [facility] Comment on above: Performed By: #### L 500.4050, L501.2450, L100.0100 #### [facility] [address] [place], [address] ALK PHOS 104 U/L Normal 35-104 [facility] Comment on above: Performed By: #### L 500.4050, L501.2450, L100.0100 #### [facility] [address] [place], [address] ALT [Catalytic activity/Vol] 15 U/L Normal <=34 [facility] Comment on above: Performed By: #### L 500.4050, L501.2450, L100.0100 #### [facility] [address] [place], [address] AST [Catalytic activity/Vol] 30 U/L Normal <=31 [facility] Comment on above: Result Comment: Hemo lysis present, Results??could be affected. ?? Performed By: #### L 500.4050, L501.2450, L100.0100 #### [facility] [address] [place], [address] Bilirubin [Mass/Vol] 0.24 mg/dL Normal 0.00-1.30 [facility] Comment on above: Performed By: #### L 500.4050, L501.2450, L100.0100 #### [facility] [address] [place], [address] BUN/CRE 16.0 RATIO Normal 10-20 [facility] Comment on above: Performed By: #### L 500.4050, L501.2450, L100.0100 #### [facility] [address] [place], [address] Calcium [Mass/Vol] 9.6 mg/dL Normal 7.6-11.0 [facility] Comment on above: Performed By: #### L 500.4050, L501.2450, L100.0100 #### [facility] [address] [place], [address] Chloride [Moles/Vol] 102 mmol/L Normal 98-108 [facility] Comment on above: Performed By: #### L 500.4050, L501.2450, L100.0100 #### [facility] [address] [place], [address] CO2 [Moles/Vol] 19.7 mmol/L Low 21.0-32.0 [facility] Comment on above: Performed By: #### L 500.4050, L501.2450, L100.0100 #### [facility] [address] [place], [address] Creatinine [Mass/Vol] 1.09 mg/dL Normal 0.70-1.20 [facility] Comment on above: Performed By: #### L 500.4050, L501.2450, L100.0100 #### [facility] [address] [place], [address] ECRCL 48.81 ml/min Low 50-250 [facility] Comment on above: Performed By: #### L 500.4050, L501.2450, L100.0100 #### [facility] [address] [place], [address] GAP 13 Normal 5-15 [facility] Comment on above: Performed By: #### L 500.4050, L501.2450, L100.0100 #### [facility] [address] [place], [address] GFR/1.73 sq M.predicted among non-blacks MDRD (S/P/Bld) [Vol rate/Area] 57 mL/min/{1.73_m2} Low >60 [facility] Comment on above: Result Comment: mL/m in/1.73m2 CKD-EPI Creatinine Equation (2020) Performed By: #### L 500.4050, L501.2450, L100.0100 #### [facility] [address] [place], [address] Globulin (S) [Mass/Vol] 3.1 g/dL Normal 2.2-4.2 [facility] Comment on above: Performed By: #### L 500.4050, L501.2450, L100.0100 #### [facility] [address] [place], [address] Glucose [Mass/Vol] 101 mg/dL High 70-99 [facility] Comment on above: Performed By: #### L 500.4050, L501.2450, L100.0100 #### [facility] [address] [place], [address] Potassium [Moles/Vol] 4.2 mmol/L Normal 3.3-5.1 [facility] Comment on above: Result Comment: Hemo lysis present, Results??could be affected. ?? Performed By: #### L 500.4050, L501.2450, L100.0100 #### [facility] [address] [place], [address] Sodium [Moles/Vol] 135 mmol/L Normal 133-145 [facility] Comment on above: Performed By: #### L 500.4050, L501.2450, L100.0100 #### [facility] [address] [place], [address] T PROT 7.4 g/dL Normal 5.9-8.4 [facility] Comment on above: Performed By: #### L 500.4050, L501.2450, L100.0100 #### [facility] [address] [place], [address] Urea nitrogen [Mass/Vol] 17 mg/dL Normal 4-19 [facility] Comment on above: Performed By: #### L 500.4050, L501.2450, L100.0100 #### [facility] [address] [place], [address] Emergency Department Summary on 01-25-2025 Emergency Department Summary [facility] Medical Records Department [address] [place] [address] Emergency Department Summary 01/25/25 MR#: [id number] Acct: [id number] Name: MORENA PATTON Rep #: [id number] : 1960 64 From: Gila Reeves DO PCP: Care Physician,No Primary Status:ADM CYRIL Location: MS3 [id number] HPI History of Present Illness Chief Complaint: [...] She came in for further evaluation with [facility] Medical History (Updated 01/26/25 @ 00:17 [...] Reaction Status Date / Time buprenorphine (From [facility]) Allergy Rash Verified 01/25/25 19:32 NSAIDS (Non-Steroidal [...] weakness Psychi (more content not included)... [facility] Ferritinon 01-25-2025 Ferritin [Mass/Vol] 13 ng/mL Low 22-378 [facility] Comment on above: Performed By: #### L 503.0106 #### [facility] [address] [place], [address] H AND P Exam - Hospitaliston 01-25-2025 H&P Exam - Hospitalist [facility] Medical Records Department [address] [place] [address] H P Exam - Hospitalist 01/25/25 1855 MR#: [id number] Acct: [id number] Name: MORENA PATTON Rep #: [id number] : 1960 64 From: Virginie Aguillon MD PCP: Care Physician,No Primary Status:REG ER Location: ED HPI - General General Date of Admission: 01/25/25 Date of Service: 01/25/25 Chief Complaint: Abdominal pain, weakness HPI Narrative MORENA PATTON, is a 64-year-old female history of GERD, PTSD, PUD, hypertension, depression [facility] 01/25/2025 with left upper quadrant [...] fevers., No other new or acute complaints [facility] Medical History (Updated 01/25/25 @ 19:41 by [...] you par (more content not included)... [facility] L503.7505on 01-25-2025 Natriuretic peptide B (Bld) [Mass/Vol] 95 pg/mL Normal <=900 [facility] Comment on above: Result Comment: Hear t Failure Unlikely: < 300 pg/mL Heart Failure Likely < 50 Years: > 450 pg/mL 50-75 Years: > 900 pg/mL >75 Years: > 1800 pg/mL Performed By: #### L 500.4050, L501.2450, L100.0100 #### [facility] [address] [place], [address] Lipaseon 01-25-2025 Lipase [Catalytic activity/Vol] 44 U/L Normal 13-75 [facility] Comment on above: Result Comment: Quinten gruber note: LIPASE revised reference range effective 22. New Lipase methodology. Expected to produce lower values than the previous assay method. NEW Reference Range: 13 - 75 U/L Performed By: #### L 500.4050, L501.2450, L100.0100 #### [facility] [address] [place], [address] Retic Panelon 01-25-2025 IM RET FRACTION 39.90 High 3.00-15.90 [facility] Comment on above: Performed By: #### L 503.0106 #### [facility] [address] [place], [address] RET-HE 24.7 pg Low 30-35 [facility] Comment on above: Performed By: #### L 503.0106 #### [facility] [address] [place], [address] Retic Count 1.43 Normal 0.5-1.5 [facility] Comment on above: Performed By: #### L 503.0106 #### [facility] [address] [place], [address] Stool Occult Blood iFOBon STOB Negative [facility] Comment on above: Performed By: #### M 100.7900 #### [facility] [address] [place], [address] Urinalysis, Completeon 01-25 EPI,SQUAMOUS 0-5 SEEN Normal 5-10 [facility] Comment on above: Order Comment: ADD O N Performed By: #### L 503.0106 #### [facility] [address] [place], [address] RBC 0-5 SEEN Normal 0-5 [facility] Comment on above: Order Comment: ADD O N Performed By: #### L 503.0106 #### [facility] [address] [place], [place], [address] WBC 0-5 SEEN Normal 0-5 [facility] Comment on above: Order Comment: ADD O N Performed By: #### L 503.0106 #### [facility] [address] [place], [address] BACTERIA 0 SEEN Normal None Seen [facility] Comment on above: Order Comment: ADD O N Performed By: #### L 503.0106 #### [facility] [address] [place], [place], [address] Mucus Ql (Urine sed) 0 SEEN Normal [facility] Comment on above: Order Comment: ADD O N Performed By: #### L 503.0106 #### [facility] [address] [place], [place], [address] MR/BMS.BPon 12-15-2024 MR/BMS.[address], [address] [place] [address] OFFICE VISIT Date of Service: 12/15/24 MR#: [id number] Acct: [id number] Name: MORENA PATTON Rep #: [id number] : 1960 Provider: KATIE dewey Age/Sex: 64/F Location: [facility].BP Status: Signed Intake Vital Signs 10/10/24 08:10 [...] Appetite is (more content not included)... [facility] MR/BMS.BPon 10-10-2024 MR/BMS.BP [address], [address] [place] [address] OFFICE VISIT Date of Service: 10/10/24 MR#: [id number] Acct: [id number] Name: MORENA PATTON Rep #: [id number] : 1960 Provider: KATIE dewey Age/Sex: 64/F Location: [facility].BP Status: Signed Intake Vital Signs 08/22/24 07:39 [...] 7wfu Accompanied by: Self Allergies buprenorphine (From [facility]) Allergy (Verified 10/10/24 08:39) Rash NSAIDS (Non-Steroidal [...] 31-40 years (more content not included)... [facility] Culture, Blood (WB)on 2024 CUB Blood cultures x2, f rom two different sites No growth in 5 days. [facility] Comment on above: Performed By: #### L 500.4050, L501.2450, L100.0100 #### [facility] [address] [facility] [place], [address] 12 Lead EKG performed by [facility] on 08-30-2024 12 Lead EKG performed by [facility] [address] [facility] [place] [address] 12 Lead EKG performed by [facility] 08/30/24 0935 MR#: [id number] Acct: [id number] Name: MORENA PATTON Rep #: [id number] : 1960 64 From: Ta Montoya MD Attending Dr: Dr. Ta Montoya MD Status: DEP A TOYA Ordering Dr: Ta Montoya MD Date: 08/30/24 Location: [facility] Sex: F AA Admitted: [facility]/12 Lead EKG performed by [facility] ECG Report Interpretation Sinus Rhythm -Left atrial enlargement. BORDERLINEElectronically signed on 08/30/2024 at 15:15 by Ta Montoya [employer] Version 8610 08/30/24 9466 Date Ta Montoya MD CC: Dr. Stoney Hudson MD Date Dictated: 08/30/24934 Date Transcribed: 08/30/24934 Stroke Program Coordinator: [place] Signed [facility] Cardiology Visit Reporton Cardiology Visit Report [facility] [address] [place] [address] OFFICE VISIT Date of Service: 08/30/24 MR#: [id number] Acct: [id number] Name: MORENA PATTON Rep #: [id number] : 1960 Provider: Dr. 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 [facility] Urine Cultureon 08-28-2024 URC Mixed Gram Positive Organisms Bonham Count 11,000-25,000 MIXC Mixed contaminants. Submit a new specimen if indicated. [facility] Comment on above: Performed By: #### L 500.4050, L501.2450, L100.0100 #### [facility] [address] [facility] [place], [address] 12 Lead EKGon 08-26-2024 12 Lead EKG [facility] Cardiovascular Services [address] [place] [address] 12 Lead EKG 08/26/24 1710 MR#: [id number] Acct: [id number] Name: ALEKMORENA Rep #: [id number] : 1960 64 From: London Dupont MD [...] Borderline ECG Confirmed by TERRANCE WOO, JULIO ([id number]), editor continuity and script ENZO STANFORD ([id number]) on 08/29/2024 6:13:58 AM Referred By: Confirmed By: JULIO DUPONT MD 08/29/24612 Date London Dupont MD CC: Dr. Stoney Hudson MD; Dr. Duglas Ariza DO Signed [facility] CBC W/Diff, Automatedon 08-03 Absolute Lymph 1.30 X10 3/uL Normal 0.83-4.51 [facility] Comment on above: Performed By: #### L 500.4050, L501.2450, L100.0100 #### [facility] [address] [place], [address] Absolute Neut 1.8 X10 3/uL Low 2.0-7.7 [facility] Comment on above: Performed By: #### L 500.4050, L501.2450, L100.0100 #### [facility] [address] [place], [address] Basophils/100 WBC (Bld) 0.6 % Normal 0-1 [facility] Comment on above: Performed By: #### L 500.4050, L501.2450, L100.0100 #### [facility] [address] [place], [address] Eosinophils/100 WBC (Bld) 0.0 % Normal 0-5 [facility] Comment on above: Performed By: #### L 500.4050, L501.2450, L100.0100 #### [facility] [address] [place], [address] Erythrocyte distribution width (RBC) [Ratio] 16.7 % High 11.6-14.6 [facility] Comment on above: Performed By: #### L 500.4050, L501.2450, L100.0100 #### [facility] [address] [place], [address] Hematocrit (Bld) [Volume fraction] 35.4 % Low 37-47 [facility] Comment on above: Performed By: #### L 500.4050, L501.2450, L100.0100 #### [facility] [address] [place], [address] Hemoglobin (Bld) [Mass/Vol] 11.4 g/dL Low 12.0-15.0 [facility] Comment on above: Performed By: #### L 500.4050, L501.2450, L100.0100 #### [facility] [address] [place], [address] IG% 0.300 Normal 0.0-0.9 [facility] Comment on above: Result Comment: IG% - Immature Granulocytes (promyelocytes, myelocytes and metamyelocytes) > 1% indicates that a LEFT SHIFT is Present. Performed By: #### L 500.4050, L501.2450, L100.0100 #### [facility] [address] [place], [address] Lymphocytes/100 WBC (Bld) 37.7 % Normal 19-41 [facility] Comment on above: Performed By: #### L 500.4050, L501.2450, L100.0100 #### [facility] [address] [place], [address] MCH (RBC) [Entitic mass] 23.9 pg Low 27.0-32.0 [facility] Comment on above: Performed By: #### L 500.4050, L501.2450, L100.0100 #### [facility] [address] [place], [address] MCHC (RBC) [Mass/Vol] 32.2 g/dL Normal 32-36 [facility] Comment on above: Performed By: #### L 500.4050, L501.2450, L100.0100 #### [facility] [address] [place], [address] MCV (RBC) [Entitic vol] 74.2 fL Low 81-99 [facility] Comment on above: Performed By: #### L 500.4050, L501.2450, L100.0100 #### [facility] [address] [place], [address] Monocytes/100 WBC (Bld) 10.1 % High 0-10 [facility] Comment on above: Performed By: #### L 500.4050, L501.2450, L100.0100 #### [facility] [address] [place], [address] Neutrophils/100 WBC (Bld) 51.3 % Normal 47-70 [facility] Comment on above: Performed By: #### L 500.4050, L501.2450, L100.0100 #### [facility] [address] [place], [address] Nucleated RBC (Bld) [#/Vol] 0 10*3/uL Normal 0-5 [facility] Comment on above: Performed By: #### L 500.4050, L501.2450, L100.0100 #### [facility] [address] [place], [address] Platelet mean volume (Bld) [Entitic vol] 10.0 fL Normal 6.2-12.0 [facility] Comment on above: Performed By: #### L 500.4050, L501.2450, L100.0100 #### [facility] [address] [place], [address] Platelets (Bld) [#/Vol] 253 10*3/uL Normal 150-450 [facility] Comment on above: Performed By: #### L 500.4050, L501.2450, L100.0100 #### [facility] [address] [place], [address] RBC (Bld) [#/Vol] 4.77 10*6/uL Normal 4.2-5.4 [facility] Comment on above: Performed By: #### L 500.4050, L501.2450, L100.0100 #### [facility] [address] [place], [address] RDW SD 44.5 fl High 35.1-43.9 [facility] Comment on above: Performed By: #### L 500.4050, L501.2450, L100.0100 #### [facility] [address] [place], [address] WBC (Bld) [#/Vol] 3.5 10*3/uL Low 4.4-11.0 [facility] Comment on above: Performed By: #### L 500.4050, L501.2450, L100.0100 #### [facility] [address] [place], [address] Chest 1 View (Portable)on Chest 1 View (Portable) [facility] Imaging Services [address] [place] [address] Chest 1 View (Portable) MR#: [id number] Acct: [id number] Name: MORENA PATTON Rep #: [id number] : 1960 F 64 From: Ronnell jackman MD PCP: Dr. Stoney Hudson MD Status: REG ER Study: Chest 1 View (Portable) Date of Exam: 08/26/24 Exam# [id number] Ordering Dr: Duglas Ariza DO [id number] INDICATION: SOB EXAMINATION/TECHNIQUE: X-RAY - XR Chest 1 View COMPARISON: 04/01/2024. FINDINGS: The lungs are clear. Tortuous and calcified thoracic aorta. The heart is not enlarged. No pleural effusion or pneumothorax. No acute osseous abnormalities. RAD/Chest 1 View (Portable) IMPRESSION: No acute radiographic abnormalities. Electronically Signed: Ronnell Dan MD at 20:10 EST , CC: Dr. Stoney Hudson MD; Dr. Duglas Ariza DO Stroke Program Coordinator: Signed [facility] Comprehensive Metabolic Prof ilon 08-26-2024 Albumin [Mass/Vol] 3.4 g/dL Normal 3.2-5.0 [facility] Comment on above: Performed By: #### L 500.4050, L501.2450, L100.0100 #### [facility] [address] [place], [address] Albumin/Globulin [Mass ratio] 0.8 {ratio} Low 0.9-2.4 [facility] Comment on above: Performed By: #### L 500.4050, L501.2450, L100.0100 #### [facility] [address] [place], [address] ALK P 100 U/L Normal 45-117 [facility] Comment on above: Performed By: #### L 500.4050, L501.2450, L100.0100 #### [facility] [address] [place], [address] ALT [Catalytic activity/Vol] 20 U/L Normal 13-56 [facility] Comment on above: Performed By: #### L 500.4050, L501.2450, L100.0100 #### [facility] [address] [place], [address] AST [Catalytic activity/Vol] 37 U/L Normal 15-37 [facility] Comment on above: Performed By: #### L 500.4050, L501.2450, L100.0100 #### [facility] [address] [place], [address] Bilirubin [Mass/Vol] 0.30 mg/dL Normal 0.20-1.00 [facility] Comment on above: Result Comment: For patients on eltrombopag therapy, use of Dimension [place] TBIL is not recommended. Performed By: #### L 500.4050, L501.2450, L100.0100 #### [facility] [address] [place], [address] BUN/CRE 12.5 RATIO Normal 10-20 [facility] Comment on above: Performed By: #### L 500.4050, L501.2450, L100.0100 #### [facility] [address] [place], [address] CA,Total 9.3 mg/dL Normal 8.5-10.1 [facility] Comment on above: Performed By: #### L 500.4050, L501.2450, L100.0100 #### [facility] [address] [place], [address] Chloride [Moles/Vol] 102 mmol/L Normal 98-107 [facility] Comment on above: Performed By: #### L 500.4050, L501.2450, L100.0100 #### [facility] [address] [place], [address] CO2 [Moles/Vol] 23.0 mmol/L Normal 21.0-32.0 [facility] Comment on above: Performed By: #### L 500.4050, L501.2450, L100.0100 #### [facility] [address] [place], [address] Creatinine [Mass/Vol] 1.28 mg/dL High 0.55-1.02 [facility] Comment on above: Result Comment: The validity of the calculated GFR GFRAA in patients over 70 years has not been determined. Clinical correlation is essential. Performed By: #### L 500.4050, L501.2450, L100.0100 #### [facility] [address] [place], [address] EST GFR - AA 54 mL/min Low >60 [facility] Comment on above: Result Comment: Afri can Mozambican GFR Calc Performed By: #### L 500.4050, L501.2450, L100.0100 #### [facility] [address] [place], [address] GAP 9 Normal 5-15 [facility] Comment on above: Performed By: #### L 500.4050, L501.2450, L100.0100 #### [facility] [address] [place], [address] GFR/1.73 sq M.predicted among non-blacks MDRD (S/P/Bld) [Vol rate/Area] 45 mL/min/{1.73_m2} Low >60 [facility] Comment on above: Result Comment: Non- GFR Calc Performed By: #### L 500.4050, L501.2450, L100.0100 #### [facility] [address] [place], [address] Globulin (S) [Mass/Vol] 4.0 g/dL Normal 2.2-4.2 [facility] Comment on above: Performed By: #### L 500.4050, L501.2450, L100.0100 #### [facility] [address] [place], [address] Glucose [Mass/Vol] 103 mg/dL Normal 74-106 [facility] Comment on above: Result Comment: Fast ing Glucose result from 100 to 125 mg/dL suggests IMPAIRED HOMEOSTASIS per A.D.A. criteria. Performed By: #### L 500.4050, L501.2450, L100.0100 #### [facility] [address] [place], [address] Potassium [Moles/Vol] 3.8 mmol/L Normal 3.5-5.1 [facility] Comment on above: Performed By: #### L 500.4050, L501.2450, L100.0100 #### [facility] [address] [place], [address] Sodium [Moles/Vol] 134 mmol/L Low 136-145 [facility] Comment on above: Performed By: #### L 500.4050, L501.2450, L100.0100 #### [facility] [address] [place], [address] T PROT 7.4 g/dL Normal 6.4-8.2 [facility] Comment on above: Performed By: #### L 500.4050, L501.2450, L100.0100 #### [facility] [address] [place], [address] Urea nitrogen [Mass/Vol] 16 mg/dL Normal 7-18 [facility] Comment on above: Performed By: #### L 500.4050, L501.2450, L100.0100 #### [facility] [address] [place], [address] Emergency Department Summary on 08-26-2024 Emergency Department Summary [facility] Medical Records Department [address] [place] [address] Emergency Department Summary 08/26/24 MR#: [id number] Acct: [id number] Name: MORENA PATTON Rep #: [id number] : 1960 64 From: Duglas Ariza DO PCP: Dr. Stoney [place] MD Status:REG ER Location: ED HPI History of Present Illness Chief Complaint: [facility] Medical History (Updated 08/26/24 @ 19:53 by [...] No murmur (more content not included)... [facility] Lactic Acidon 08-26-2024 Lactate [Moles/Vol] 1.3 mmol/L Normal 0.4-1.9 [facility] Comment on above: Order Comment: Y Performed By: #### L 500.4050, L501.2450, L100.0100 #### [facility] [address] [place], [address] M100.678on 08-26-2024 SARS-CoV-2 (COVID-19) Ab IA Ql FLUABV+SARS-CoV-2+RSV Pnl Resp BISI+probe Copy of report sent to Infection Control Printer [id number] 08/26/24 1810 PRATIK. FLUABV+SARS-CoV-2+RSV Pnl Resp BISI+probe RESULTS CALLED TO A. SELF 08/26/24 1810 Sunita Magdaleno. REPORT READ BACK BY . SAME SARS-CoV-2 (COVID 19) Negative INFLUENZA A A Positive A INFLUENZA B Negative RSV PCR Negative INFLUENZAE A [facility] Comment on above: Performed By: #### L 500.4050, L501.2450, L100.0100 #### [facility] [address] [place], [address] Partial Thromboplast Timeon 08-26-2024 aPTT Coag (Bld) [Time] 27.5 s Normal 24.1-36.2 [facility] Comment on above: Performed By: #### L 500.4050, L501.2450, L100.0100 #### [facility] [address] [place], [address] Prothrombin Time w/INRon INR Coag (PPP) [Relative time] 0.9 {INR} [facility] Comment on above: Performed By: #### L 500.4050, L501.2450, L100.0100 #### [facility] [address] [place], [address] PT Coag (PPP) [Time] 11.8 s Normal 11.7-14.9 [facility] Comment on above: Performed By: #### L 500.4050, L501.2450, L100.0100 #### [facility] [address] [place], [address] Urinalysis, Completeon 08-26 BACTERIA RARE Normal None Seen [facility] Comment on above: Order Comment: COLLE CTOR TO SPECIFY Performed By: #### L 500.4050, L501.2450, L100.0100 #### [facility] [address] [place], [address] EPI,SQUAMOUS 0-5 SEEN Normal 5-10 [facility] Comment on above: Order Comment: COLLE CTOR TO SPECIFY Performed By: #### L 500.4050, L501.2450, L100.0100 #### [facility] [address] [place], [address] RBC 0-5 SEEN Normal 0-5 [facility] Comment on above: Order Comment: COLLE CTOR TO SPECIFY Performed By: #### L 500.4050, L501.2450, L100.0100 #### [facility] [address] [place], [address] Mucus Ql (Urine sed) 0 SEEN Normal [facility] Comment on above: Order Comment: COLLE CTOR TO SPECIFY Performed By: #### L 500.4050, L501.2450, L100.0100 #### [facility] [address] [place], [address] WBC 0 SEEN Normal 0-5 [facility] Comment on above: Order Comment: DANIEL CTOR TO SPECIFY Performed By: #### L 500.4050, L501.2450, L100.0100 #### [facility] [address] [place], [address] MR/BMS.BPon 08-22-2024 MR/BMS.BP [address], [address] [place] [address] OFFICE VISIT Date of Service: 08/22/24 MR#: [id number] Acct: [id number] Name: MORENA PATTON Rep #: [id number] : 1960 Provider: KATIE dewey Age/Sex: 64/F Location: [facility]BP Status: Signed Intake Vital Signs 04/11/24 14:35 [...] making careless (more content not included)... [facility] Ferritinon 07-20-2024 Ferritin [Mass/Vol] 8 ng/mL Normal 8-252 [facility] Comment on above: Order Comment: ADD O N Performed By: #### L 503.0106 #### [facility] [address] [place], [address] Folates, (Folic Acid)on 07-02 FOLATES 8.20 ng/mL Normal 3.1-55.4 [facility] Comment on above: Order Comment: N Performed By: #### L 500.4050, L501.2450, L100.0100 #### [facility] [address] [place], [address] Iron+Iron Binding Capacityon 07-20-2024 Iron [Mass/Vol] 19 ug/dL Low 50-170 [facility] Comment on above: Order Comment: ADD O N Performed By: #### L 503.0106 #### [facility] [address] [place], [address] IRON SATURATION 4.7 Low 15.0-55.0 [facility] Comment on above: Order Comment: ADD O N Performed By: #### L 503.0106 #### [facility] [address] [place], [address] TIBC 402 ug/dL Normal 250-450 [facility] Comment on above: Order Comment: ADD O N Performed By: #### L 503.0106 #### [facility] [address] [place], [address] Retic Panelon 07-20-2024 IM RET FRACTION 19.60 High 3.00-15.90 [facility] Comment on above: Performed By: #### L 503.0106 #### [facility] [address] [place], [address] RET-HE 23.5 pg Low 30-35 [facility] Comment on above: Performed By: #### L 503.0106 #### [facility] [address] [place], [address] Retic Count 1.38 Normal 0.5-1.5 [facility] Comment on above: Performed By: #### L 503.0106 #### [facility] [address] [place], [address] Vitamin B12on 07-20-2024 Cobalamin (Vitamin B12) [Mass/Vol] 671 pg/mL Normal 211-911 [facility] Comment on above: Performed By: #### L 503.0106 #### [facility] [address] [place], [address] CBC W/Diff, Automatedon 07-02 Absolute Lymph 1.98 X10 3/uL Normal 0.83-4.51 [facility] Comment on above: Performed By: #### L 500.4050, L501.2450, L100.0100 #### [facility] [address] [place], [address] Absolute Neut 1.1 X10 3/uL Low 2.0-7.7 [facility] Comment on above: Performed By: #### L 500.4050, L501.2450, L100.0100 #### [facility] [address] [place], [address] Basophils/100 WBC (Bld) 0.9 % Normal 0-1 [facility] Comment on above: Performed By: #### L 500.4050, L501.2450, L100.0100 #### [facility] [address] [place], [address] Eosinophils/100 WBC (Bld) 2.3 % Normal 0-5 [facility] Comment on above: Performed By: #### L 500.4050, L501.2450, L100.0100 #### [facility] [address] [place], [address] Erythrocyte distribution width (RBC) [Ratio] 15.9 % High 11.6-14.6 [facility] Comment on above: Performed By: #### L 500.4050, L501.2450, L100.0100 #### [facility] [address] [place], [address] Hematocrit (Bld) [Volume fraction] 30.8 % Low 37-47 [facility] Comment on above: Performed By: #### L 500.4050, L501.2450, L100.0100 #### [facility] [address] [place], [address] Hemoglobin (Bld) [Mass/Vol] 9.9 g/dL Low 12.0-15.0 [facility] Comment on above: Performed By: #### L 500.4050, L501.2450, L100.0100 #### [facility] [address] [place], [address] IG% 0.000 Normal 0.0-0.9 [facility] Comment on above: Result Comment: IG% - Immature Granulocytes (promyelocytes, myelocytes and metamyelocytes) > 1% indicates that a LEFT SHIFT is Present. Performed By: #### L 500.4050, L501.2450, L100.0100 #### [facility] [address] [place], [address] Lymphocytes/100 WBC (Bld) 57.4 % High 19-41 [facility] Comment on above: Performed By: #### L 500.4050, L501.2450, L100.0100 #### [facility] [address] [place], [address] MCH (RBC) [Entitic mass] 26.5 pg Low 27.0-32.0 [facility] Comment on above: Performed By: #### L 500.4050, L501.2450, L100.0100 #### [facility] [address] [place], [address] MCHC (RBC) [Mass/Vol] 32.1 g/dL Normal 32-36 [facility] Comment on above: Performed By: #### L 500.4050, L501.2450, L100.0100 #### [facility] [address] [place], [address] MCV (RBC) [Entitic vol] 82.4 fL Normal 81-99 [facility] Comment on above: Performed By: #### L 500.4050, L501.2450, L100.0100 #### [facility] [address] [place], [address] Monocytes/100 WBC (Bld) 7.2 % Normal 0-10 [facility] Comment on above: Performed By: #### L 500.4050, L501.2450, L100.0100 #### [facility] [address] [place], [address] Neutrophils/100 WBC (Bld) 32.2 % Low 47-70 [facility] Comment on above: Performed By: #### L 500.4050, L501.2450, L100.0100 #### [facility] [address] [place], [address] Nucleated RBC (Bld) [#/Vol] 0 10*3/uL Normal 0-5 [facility] Comment on above: Performed By: #### L 500.4050, L501.2450, L100.0100 #### [facility] [address] [place], [address] Platelet mean volume (Bld) [Entitic vol] 9.0 fL Normal 6.2-12.0 [facility] Comment on above: Performed By: #### L 500.4050, L501.2450, L100.0100 #### [facility] [address] [place], [address] Platelets (Bld) [#/Vol] 325 10*3/uL Normal 150-450 [facility] Comment on above: Performed By: #### L 500.4050, L501.2450, L100.0100 #### [facility] [address] [place], [address] RBC (Bld) [#/Vol] 3.74 10*6/uL Low 4.2-5.4 [facility] Comment on above: Performed By: #### L 500.4050, L501.2450, L100.0100 #### [facility] [address] [place], [address] RDW SD 47.5 fl High 35.1-43.9 [facility] Comment on above: Performed By: #### L 500.4050, L501.2450, L100.0100 #### [facility] [address] [place], [address] WBC (Bld) [#/Vol] 3.5 10*3/uL Low 4.4-11.0 [facility] Comment on above: Performed By: #### L 500.4050, L501.2450, L100.0100 #### [facility] [address] [place], [address] Comprehensive Metabolic [facility] 07-19-2024 Albumin [Mass/Vol] 3.2 g/dL Normal 3.2-5.0 [facility] Comment on above: Performed By: #### L 500.4050, L501.2450, L100.0100 #### [facility] [address] [place], [address] Albumin/Globulin [Mass ratio] 0.9 {ratio} Normal 0.9-2.4 [facility] Comment on above: Performed By: #### L 500.4050, L501.2450, L100.0100 #### [facility] [address] [place], [address] ALK P 95 U/L Normal 45-117 [facility] Comment on above: Performed By: #### L 500.4050, L501.2450, L100.0100 #### [facility] [address] [place], [address] ALT [Catalytic activity/Vol] 20 U/L Normal 13-56 [facility] Comment on above: Performed By: #### L 500.4050, L501.2450, L100.0100 #### [facility] [address] [place], [address] AST [Catalytic activity/Vol] 21 U/L Normal 15-37 [facility] Comment on above: Performed By: #### L 500.4050, L501.2450, L100.0100 #### [facility] [address] [place], [address] Bilirubin [Mass/Vol] 0.30 mg/dL Normal 0.20-1.00 [facility] Comment on above: Result Comment: For patients on eltrombopag therapy, use of Dimension [place] TBIL is not recommended. Performed By: #### L 500.4050, L501.2450, L100.0100 #### [facility] [address] [place], [address] BUN/CRE 10.8 RATIO Normal 10-20 [facility] Comment on above: Performed By: #### L 500.4050, L501.2450, L100.0100 #### [facility] [address] [place], [address] CA,Total 9.0 mg/dL Normal 8.5-10.1 [facility] Comment on above: Performed By: #### L 500.4050, L501.2450, L100.0100 #### [facility] [address] [place], [address] Chloride [Moles/Vol] 110 mmol/L High 98-107 [facility] Comment on above: Performed By: #### L 500.4050, L501.2450, L100.0100 #### [facility] [address] [place], [address] CO2 [Moles/Vol] 25.0 mmol/L Normal 21.0-32.0 [facility] Comment on above: Performed By: #### L 500.4050, L501.2450, L100.0100 #### [facility] [address] [place], [address] Creatinine [Mass/Vol] 0.93 mg/dL Normal 0.55-1.02 [facility] Comment on above: Result Comment: The validity of the calculated GFR GFRAA in patients over 70 years has not been determined. Clinical correlation is essential. Performed By: #### L 500.4050, L501.2450, L100.0100 #### [facility] [address] [place], [address] EST GFR - AA 78 mL/min Normal >60 [facility] Comment on above: Result Comment: Afri can [place] GFR Calc Performed By: #### L 500.4050, L501.2450, L100.0100 #### [facility] [address] [place], [address] GAP 3 Low 5-15 [facility] Comment on above: Performed By: #### L 500.4050, L501.2450, L100.0100 #### [facility] [address] [place], [address] GFR/1.73 sq M.predicted among non-blacks MDRD (S/P/Bld) [Vol rate/Area] 65 mL/min/{1.73_m2} Normal >60 [facility] Comment on above: Result Comment: Non- GFR Calc Performed By: #### L 500.4050, L501.2450, L100.0100 #### [facility] [address] [place], [address] Globulin (S) [Mass/Vol] 3.4 g/dL Normal 2.2-4.2 [facility] Comment on above: Performed By: #### L 500.4050, L501.2450, L100.0100 #### [facility] [address] [place], [address] Glucose [Mass/Vol] 100 mg/dL Normal 74-106 [facility] Comment on above: Result Comment: Fast ing Glucose result from 100 to 125 mg/dL suggests IMPAIRED HOMEOSTASIS per A.D.A. criteria. Performed By: #### L 500.4050, L501.2450, L100.0100 #### [facility] [address] [place], [address] Potassium [Moles/Vol] 4.0 mmol/L Normal 3.5-5.1 [facility] Comment on above: Performed By: #### L 500.4050, L501.2450, L100.0100 #### [facility] [address] [place], [address] Sodium [Moles/Vol] 138 mmol/L Normal 136-145 [facility] Comment on above: Performed By: #### L 500.4050, L501.2450, L100.0100 #### [facility] [address] [place], [address] T PROT 6.6 g/dL Normal 6.4-8.2 [facility] Comment on above: Performed By: #### L 500.4050, L501.2450, L100.0100 #### [facility] [address] [place], [address] Urea nitrogen [Mass/Vol] 10 mg/dL Normal 7-18 [facility] Comment on above: Performed By: #### L 500.4050, L501.2450, L100.0100 #### [facility] [address] [place], [address] Lipid Profileon 07-19-2024 Cholesterol [Mass/Vol] 210 mg/dL High 200 [facility] Comment on above: Result Comment: <200 mg/dL Desirable 200-240 mg/dL Borderline >240 mg/dL High Risk Performed By: #### L 500.4050, L501.2450, L100.0100 #### [facility] [address] [place], [address] Cholesterol in HDL [Mass/Vol] 114 mg/dL Normal [facility] Comment on above: Result Comment: The drugs N-Acetylcysteine and Metamizole may falsely depress this assay. Reference Range HDL <40 mg/dL Low HDL Cholesterol HDL >or= 60 mg/dL High HDL Cholesterol Performed By: #### L 500.4050, L501.2450, L100.0100 #### [facility] [address] [place], [address] Cholesterol in LDL [Mass/Vol] 71 mg/dL Normal 0-130 [facility] Comment on above: Performed By: #### L 500.4050, L501.2450, L100.0100 #### [facility] [address] [place], [address] Cholesterol in VLDL [Mass/Vol] 25 mg/dL Normal 5-40 [facility] Comment on above: Performed By: #### L 500.4050, L501.2450, L100.0100 #### [facility] [address] [place], [address] Triglyceride [Mass/Vol] 124 mg/dL Normal [facility] Comment on above: Result Comment: The drugs N-Acetylcysteine and Metamizole may falsely depress this assay. Serum Triglycerides Reference Interval Normal <150 mg/dL Borderline high 150 - 199 mg/dL High 200 - 499 mg/dL Very High > or = 500 mg/dL Performed By: #### L 500.4050, L501.2450, L100.0100 #### [facility] [address] [place], [address] Thyroid Stim Hormone (TSH)on 07-19-2024 TSH 1.170 uIU/mL Normal 0.358-3.74 0 [facility] Comment on above: Performed By: #### L 500.4050, L501.2450, L100.0100 #### [facility] [place], [address] MRA HEAD W/O CONTRASTon -0 MRA HEAD W/O CONTRAST ORIGINAL EXAMINATION: MRA OF THE HEAD WITHOUT CONTRAST 06/08/2024 9:50 am TECHNIQUE: MRA of the head was performed utilizing [id number] imaging with MIP images. No intravenous contrast [...] 06/08/2024 10:06:50 AM Ordering Provider: BUNNY YO [facility] MRA NECK W/O CONTRASTon MRA NECK [...] 06/08/2024 10:07:33 AM Ordering Provider: BUNNY YO [facility] MRI BRAIN W/ + W/O CONTRASTo [...] Ordering Provider: BUNNY YO Normal [facility] Telephone Encounteron 2023 High Man Authentication Interface Message Text Called patient, 3 identifiers obtained. Patient was unable to talk at this time. Instructed patient to call [facility] at [phone]. Asked patient to reference #[phone] when calling back to our office. Ok to relay message below from Anamaria Guerrero RN. Normal [facility] Telephone Encounteron 2023 High Man Authentication Interface Message Text Unable to leave a message, voicemail is full. If patient calls back please ask the need for syringes, please encourage patient to keep 02/24/24 appt. Thank you. Normal [facility] Telephone Encounteron 2023 High Man Authentication Interface Message Text Patient was identified [...] 12:50 PM) Randall Hodgson MD [facility] Normal [facility] Telephone Encounteron 2023 High Man Authentication Interface Message Text OARRS reviewed. This is the last prescription that I will refill on behalf of this patietn Normal [facility] CBC W Auto Differential pane l (Bld)on 12-01-2023 Basophils (Bld) [#/Vol] 10*3/uL Normal <0.11 [facility] Comment on above: Order Comment: Speci men Type: BLOOD SPECIMENOrdering Facility: [facility] Address: [address] [place] [address] Performed By: #### 5 7021-8 ####[facility] LABIA [id number] [place] [address] [place] Basophils/100 WBC (Bld) 0.4 % Normal [facility] Comment on above: Order Comment: Speci men Type: BLOOD SPECIMENOrdering Facility: [facility] Address: [address] [place] [address] Performed By: #### 5 7021-8 ####[facility] LABCLIA [id number] [place] [address] [place] Differential cell count method Nom (Bld) Auto Normal [facility] Comment on above: Order Comment: Speci men Type: BLOOD SPECIMENOrdering Facility: [facility] Address: [address] [place] [address] Performed By: #### 5 7021-8 ####[facility] LABCLIA [id number] [place] [address] [place] Eosinophils (Bld) [#/Vol] 0.07 10*3/uL Normal <0.46 [facility] Comment on above: Order Comment: Speci men Type: BLOOD SPECIMENOrdering Facility: [facility] Address: [address] [place] [address] Performed By: #### 5 7021-8 ####[facility] LABCLIA [id number] [place] [address] [place] Eosinophils/100 WBC (Bld) 1.3 % Normal [facility] Comment on above: Order Comment: Speci men Type: BLOOD SPECIMENOrdering Facility: [facility] Address: [address] [place] [address] Performed By: #### 5 7021-8 ####[facility] LABCLIA [id number] [place] [address] [place] Erythrocyte distribution width (RBC) [Ratio] 18.6 % High 11.5-15.0 [facility] Comment on above: Order Comment: Speci men Type: BLOOD SPECIMENOrdering Facility: [facility] Address: [address] [place] [address] Performed By: #### 5 7021-8 ####[facility] LABCLIA [id number] [place] [address] [place] Hematocrit (Bld) [Volume fraction] 35.9 % Low 36.0-46.0 [facility] Comment on above: Order Comment: Speci men Type: BLOOD SPECIMENOrdering Facility: [facility] Address: [address] [place] [address] Performed By: #### 5 7021-8 ####[facility] LABCLIA [id number] [place] [address] [place] Hemoglobin (Bld) [Mass/Vol] 11.4 g/dL Low 11.5-15.5 [facility] Comment on above: Order Comment: Speci men Type: BLOOD SPECIMENOrdering Facility: [facility] Address: [address] [place] [address] Performed By: #### 5 7021-8 ####[facility] LABCLIA [id number] [place] [address] [place] Immature granulocytes (Bld) [#/Vol] 10*3/uL Normal <0.10 [facility] Comment on above: Order Comment: Speci men Type: BLOOD SPECIMENOrdering Facility: [facility] Address: [address] [place] [address] Performed By: #### 5 7021-8 ####[facility] LABCLIA [id number] [place] [address] [place] Immature granulocytes/100 WBC (Bld) 0.2 % Normal [facility] Comment on above: Order Comment: Speci men Type: BLOOD SPECIMENOrdering Facility: [facility] Address: [address] [place] [address] Performed By: #### 5 7021-8 ####[facility] LABCLIA [id number] [place] [address] [place] Lymphocytes (Bld) [#/Vol] 2.50 10*3/uL Normal 1.00-4.00 [facility] Comment on above: Order Comment: Speci men Type: BLOOD SPECIMENOrdering Facility: [facility] Address: [address] [place] [address] Performed By: #### 5 7021-8 ####[facility] LABCLIA [id number] [place] [address] [place] Lymphocytes/100 WBC (Bld) 47.8 % Normal [facility] Comment on above: Order Comment: Speci men Type: BLOOD SPECIMENOrdering Facility: [facility] Address: [address] [place] [address] Performed By: #### 5 7021-8 ####[facility] LABCLIA [id number] [place] [address] [place] MCH (RBC) [Entitic mass] 23.4 pg Low 26.0-34.0 [facility] Comment on above: Order Comment: Speci men Type: BLOOD SPECIMENOrdering Facility: [facility] Address: [address] [place] [address] Performed By: #### 5 7021-8 ####[facility] LABIA [id number] [place] [address] [place] MCHC (RBC) [Mass/Vol] 31.8 g/dL Normal 30.5-36.0 [facility] Comment on above: Order Comment: Speci men Type: BLOOD SPECIMENOrdering Facility: [facility] Address: [address] [place] [address] Performed By: #### 5 7021-8 ####[facility] LABIA [id number] [place] [address] [place] MCV (RBC) [Entitic vol] 73.6 fL Low 80.0-100.0 [facility] Comment on above: Order Comment: Speci men Type: BLOOD SPECIMENOrdering Facility: [facility] Address: [address] [place] [address] Performed By: #### 5 7021-8 ####[facility] [id number] [place] [address] [place] Monocytes (Bld) [#/Vol] 0.39 10*3/uL Normal <0.87 [facility] Comment on above: Order Comment: Speci men Type: BLOOD SPECIMENOrdering Facility: [facility] Address: [address] [place] [address] Performed By: #### 5 7021-8 ####[facility] LABIA [id number] [place] [address] [place] Monocytes/100 WBC (Bld) 7.5 % Normal [facility] Comment on above: Order Comment: Speci men Type: BLOOD SPECIMENOrdering Facility: [facility] Address: [address] [place] [address] Performed By: #### 5 7021-8 ####[facility] LABCLIA [id number] [place] [address] [place] Neutrophils (Bld) [#/Vol] 2.24 10*3/uL Normal 1.45-7.50 [facility] Comment on above: Order Comment: Speci men Type: BLOOD SPECIMENOrdering Facility: [facility] Address: [address] [place] [address] Performed By: #### 5 7021-8 ####[facility] LABCLIA [id number] [place] [address] [place] Neutrophils/100 WBC (Bld) 42.8 % Normal [facility] Comment on above: Order Comment: Speci men Type: BLOOD SPECIMENOrdering Facility: [facility] Address: [address] [place] [address] Performed By: #### 5 7021-8 ####[facility] LABCLIA [id number] [place] [address] [place] Nucleated RBC (Bld) [#/Vol] 0.02 10*3/uL High <0.01 [facility] Comment on above: Order Comment: Speci men Type: BLOOD SPECIMENOrdering Facility: [facility] Address: [address] [place] [address] Performed By: #### 5 7021-8 ####[facility] LABCLIA [id number] [place] [address] [place] Nucleated RBC/100 WBC (Bld) [Ratio] 0.4 /100 WBC Normal [facility] Comment on above: Order Comment: Speci men Type: BLOOD SPECIMENOrdering Facility: [facility] Address: [address] [place] [address] Performed By: #### 5 7021-8 ####[facility] LABCLIA [id number] [address] [address] [place] Platelet mean volume (Bld) [Entitic vol] 9.0 fL Normal 9.0-12.7 [facility] Comment on above: Order Comment: Speci men Type: BLOOD SPECIMENOrdering Facility: [facility] Address: [address] [place] [address] Performed By: #### 5 7021-8 ####[facility] LABCLIA [id number] [place] [address] [place] Platelets (Bld) [#/Vol] 383 10*3/uL Normal 150-400 [facility] Comment on above: Order Comment: Speci men Type: BLOOD SPECIMENOrdering Facility: [facility] Address: [address] [place] [address] Performed By: #### 5 7021-8 ####[facility] LABCLIA [id number] [place] [address] [place] RBC (Bld) [#/Vol] 4.88 10*6/uL Normal 3.90-5.20 [facility] Comment on above: Order Comment: Speci men Type: BLOOD SPECIMENOrdering Facility: [facility] Address: [address] [place] [address] Performed By: #### 5 7021-8 ####[facility] LABIA [id number] [place] [address] [place] WBC (Bld) [#/Vol] 5.23 10*3/uL Normal 3.70-11.00 [facility] Comment on above: Order Comment: Speci men Type: BLOOD SPECIMENOrdering Facility: [facility] Address: [address] [place] [address] Performed By: #### 5 7021-8 ####[facility] LABIA [id number] [place] [address] [place] Comprehensive metabolic 2000 panelon 12-01-2023 Albumin [Mass/Vol] 4.0 g/dL Normal 3.9-4.9 [facility] Comment on above: Order Comment: Speci men Type: BLOOD SPECIMENOrdering Facility: [facility] Address: [address] [place], [place] [address] Performed By: #### 2 4323-8, 00031-7, 81328-1, 3016-3 ####[facility] LABCLIA [id number] [place] [address] [place] ALP [Catalytic activity/Vol] 105 U/L Normal 34-123 [facility] Comment on above: Order Comment: Speci men Type: BLOOD SPECIMENOrdering Facility: [facility] Address: [address] [place] [address] Performed By: #### 2 4323-8, 11944-1, 19505-1, 3016-3 ####[facility] LABCLIA [id number] [place] [address] [place] ALT [Catalytic activity/Vol] 10 U/L Normal 7-38 [facility] Comment on above: Order Comment: Speci men Type: BLOOD SPECIMENOrdering Facility: [facility] Address: [address] [place] [address] Performed By: #### 2 4323-8, 45964-9, 25003-9, 3016-3 ####[facility] LABCLIA [id number] [place] [address] [place] Anion gap [Moles/Vol] 13 mmol/L Normal 9-18 [facility] Comment on above: Order Comment: Speci men Type: BLOOD SPECIMENOrdering Facility: [facility] Address: [address] [place] [address] Performed By: #### 2 4323-8, 16011-3, 17083-9, 3016-3 ####[facility] LABCLIA [id number] [place] [address] [place] AST [Catalytic activity/Vol] 20 U/L Normal 13-35 [facility] Comment on above: Order Comment: Speci men Type: BLOOD SPECIMENOrdering Facility: [facility] Address: [address] [place] [address] Performed By: #### 2 4323-8, 62521-9, 12317-0, 3016-3 ####[facility] LABCLIA [id number] [place] [address] [place] Bilirubin [Mass/Vol] 0.2 mg/dL Normal 0.2-1.3 [facility] Comment on above: Order Comment: Speci men Type: BLOOD SPECIMENOrdering Facility: [facility] Address: [address] [place] [address] Performed By: #### 2 4323-8, 55487-3, 05706-1, 3016-3 ####[facility] LABCLIA [id number] [place] [address] [place] Calcium [Mass/Vol] 9.6 mg/dL Normal 8.5-10.2 [facility] Comment on above: Order Comment: Speci men Type: BLOOD SPECIMENOrdering Facility: [facility] Address: [address] [place] [address] Performed By: #### 2 4323-8, 34846-4, 07179-6, 3016-3 ####[facility] LABCLIA [id number] [place] [address] [place] Chloride [Moles/Vol] 102 mmol/L Normal 97-105 [facility] Comment on above: Order Comment: Speci men Type: BLOOD SPECIMENOrdering Facility: [facility] Address: [address] [place] [address] Performed By: #### 2 4323-8, 12401-6, 33979-5, 3016-3 ####[facility] LABCLIA [id number] [place] [address] [place] CO2 [Moles/Vol] 21 mmol/L Low 22-30 [facility] Comment on above: Order Comment: Speci men Type: BLOOD SPECIMENOrdering Facility: [facility] Address: [address] [place] [address] Performed By: #### 2 4323-8, 85023-6, 97199-2, 3016-3 ####[facility] LABCLIA [id number] [place] [address] [place] Creatinine [Mass/Vol] 0.94 mg/dL Normal 0.58-0.96 [facility] [place] Comment on above: Order Comment: Speci men Type: BLOOD SPECIMENOrdering Facility: [facility] Address: [address] [place] [address] Performed By: #### 2 4323-8, 62324-8, 26109-2, 3016-3 ####[facility] LABIA [id number] [place] [address] [place] Creatinine and Glomerular filtration rate.predicted panel (S/P/Bld) 68 mL/min/1.73m??? Normal >=60 [facility] Comment on above: Order Comment: Speci men Type: BLOOD SPECIMENOrdering Facility: [facility] Address: [address] [place] [address] Result Comment: Kelley mated Glomerular Filtration Rate [...] actual GFR. Performed By: #### 2 4323-8, 98959-0, 79976-5, 3016-3 ####[facility] LABCLIA [id number] [place] [id number] [place] Glucose [Mass/Vol] 111 mg/dL High 74-99 [facility] Comment on above: Order Comment: Speci men Type: BLOOD SPECIMENOrdering Facility: [facility] Address: [address] [place] [address] Result Comment: The [place] Diabetes Association (ADA) provides guidance for cutoff [...] Standards of Medical Care in Diabetes 2016, [place] Diabetes Association. Diabetes Care. 2016.39(Suppl 1). Performed By: #### 2 4323-8, 22788-5, 14755-7, 3016-3 ####[facility] LABCLIA [id number] [place] [address] [place] Potassium [Moles/Vol] 3.6 mmol/L Low 3.7-5.1 [facility] [place] Comment on above: Order Comment: Winniei krish Type: BLOOD SPECIMENOrdering Facility: [facility] Address: [address] [place] [address] Performed By: #### 2 4323-8, 36012-9, 56127-3, 3016-3 ####[facility] LABCLIA [id number] [place] [id number] [place] Protein [Mass/Vol] 7.0 g/dL Normal 6.3-8.0 [facility] Comment on above: Order Comment: Winniei men Type: BLOOD SPECIMENOrdering Facility: [facility] Address: [address] [place] [address] Performed By: #### 2 4323-8, 70520-8, 65869-4, 3016-3 ####[facility] LABCLIA [id number] [place] [id number] [place] Sodium [Moles/Vol] 136 mmol/L Normal 136-144 [facility] Comment on above: Order Comment: Speci men Type: BLOOD SPECIMENOrdering Facility: [facility] Address: [address] [place], [place] [address] Performed By: #### 2 4323-8, 98953-3, 13333-6, 3016-3 ####[facility] LABCLIA [id number] [place] [id number] [place] Urea nitrogen [Mass/Vol] 9 mg/dL Normal 7-21 [facility] Comment on above: Order Comment: Speci men Type: BLOOD SPECIMENOrdering Facility: [facility] Address: [address] [place], [place] [address] Performed By: #### 2 4323-8, 55560-5, 65253-3, 3016-3 ####[facility] LABCLIA [id number] [place] [id number] [place] ED NOTEon 12-01-2023 ED NOTE HNO ID: [id number] Author: GRAY HECK RN Service: Emergency Medicine Author Type: Registered Nurse Type: ED Notes Filed: 12/01/2023 15:16 Note Text: Pt with 2 weeks of feeling faint, light headedness, cp, RAMIREZ, gradually becoming worse. Normal [facility] ED Triage Noteon 12-01-2023 ED Triage Note HNO ID: [id number] Author: RONNELL SERVIN MD Service: Emergency Medicine [...] to home at [facility] facilities such as [place] or [facility]. Clinical Impressions as of 12/01/23 1649 Chest pain, unspecified type SOB (shortness of breath) Tobacco use Primary hypertension Iron deficiency anemia, unspecified iron deficiency anemia type Thank you, Ronnell Servin MD [facility] [place] SIGNATURE: Ronnell Servin MD UPDATE for patient choosing to leave prior to being roomed and performance of a complete evaluation. Normal [facility] HIGH SENSITIVITY TROPONIN T (INITIAL)on 12-01-2023 Troponin T.cardiac High sensitivity method [Mass/Vol] 10 ng/L Normal <12 [facility] Comment on above: Order Comment: Edelmira rutherford Type: BLOOD SPECIMENOrdering Facility: [facility] Address: [address] [place] [address] Result Comment: When assessing risk for acute [...] 30 day MACE. Performed By: #### L [id number] ####[facility] LABCLIA [id number] [place] [address] [place] Magnesium SerPl-mCncon 11-30 Magnesium [Mass/Vol] 1.9 mg/dL Normal 1.7-2.3 [facility] Comment on above: Order Comment: Speci men Type: BLOOD SPECIMENOrdering Facility: [facility] Address: [address] [place] [address] Performed By: #### 2 4323-8, 13658-9, 39599-5, 3016-3 ####[facility] LABCLIA [id number] [place] [id number] [place] NT-proBNP SerPl-mCncon 11-30 Natriuretic peptide.B prohormone N-Terminal [Mass/Vol] 90 pg/mL Normal <125 [facility] Comment on above: Order Comment: Speci men Type: BLOOD SPECIMENOrdering Facility: [facility] Address: [address] [place] [address] Performed By: #### 2 4323-8, 82486-4, 60732-8, 3016-3 ####[facility] LABCLIA [id number] [place] [address] [place] TSH SerPl-aCncon 12-01-2023 TSH Qn 1.080 m[IU]/L Normal 0.270-4.20 0 [facility] Comment on above: Order Comment: Speci men Type: BLOOD SPECIMENOrdering Facility: [facility] Address: [address] [place] [address] Performed By: #### 2 4323-8, 01143-4, 17335-5, 3016-3 ####[facility] LABIA [id number] [place] [address] [place] XR CHEST 2V [...] Degenerative changes. IMPRESSION: No acute radiographic abnormality. Stroke Program Coordinator: NAIDA Transcribe Date/Time: Dec 01 2023 3:46P Dictated by : JOVANI ESCUDERO MD This examination was interpreted and the report reviewed and electronically signed by: ORESTES LI MD on Dec 01 2023 3:54PM EST [id number] Normal [facility] Absolute lymphocyte countOrd ered By: Charly Almonte on 11-16-2023 Lymphocytes Auto (Unsp spec) [#/Vol] 3.06 10*3/uL 0.83-4.51 [facility] Automated lymphocyte count a s percentage of total leukocytesOrdered By: Charly Almonte on 11-16-2023 Lymphocytes/100 WBC Auto (Unsp spec) 57.5 % 19-41 [facility] Basophil percentageOrdered B y: Charly Almonte on 11-16-2023 Basophils/100 WBC (Bld) 0.4 % 0-1 [facility] Chloride [Moles/Vol] 110 mmol/L 98-107 [facility] Eosinophils/100 WBC (Bld) 1.7 % 0-5 [facility] Glucose [Mass/Vol] 113 mg/dL 74-106 [facility] Comment on above: Fasting Glucose resu lt from 100 to 125 mg/dL suggests IMPAIRED HOMEOSTASIS per A.D.A. criteria. Hemoglobin (Bld) [Mass/Vol] 11.5 g/dL 12.0-15.0 [facility] Monocytes/100 WBC (Bld) 6.8 % 0-10 [facility] Neutrophils (Bld) [#/Vol] 1.8 10*3/uL 2.0-7.7 [facility] Neutrophils/100 WBC (Bld) 33.4 % 47-70 [facility] Potassium [Moles/Vol] 3.7 mmol/L 3.5-5.1 [facility] Sodium [Moles/Vol] 140 mmol/L 136-145 [facility] WBC (Bld) [#/Vol] 5.3 10*3/uL 4.4-11.0 [facility] Determination of erythrocyte mean corpuscular volume (MCV)Ordered By: Charly Almonte on 11-16-2023 MCV (RBC) [Entitic vol] 74.5 fL 81-99 [facility] Erythrocyte distribution wid th ratioOrdered By: Charly Almonte on 11-16-2023 Erythrocyte distribution width (RBC) [Ratio] 18.6 % 11.6-14.6 [facility] Erythrocyte distribution wid th standard deviationOrdered By: Charly Almonte on 11-16-2023 Erythrocyte distribution width (RBC) [Entitic vol] 49.6 fL 35.1-43.9 [facility] Hematocrit Auto (Bld) [Volum e fraction]Ordered By: Charly Almonte on 11-16-2023 Hematocrit (Bld) [Volume fraction] 37.1 % 37-47 [facility] Immature granulocytes/100 WB C Auto (Bld)Ordered By: Charly Almonte on 11-16-2023 Immature granulocytes/100 WBC (Bld) 0.200 % 0.0-0.9 [facility] Comment on above: IG% - Immature Granu locytes (promyelocytes, myelocytes and metamyelocytes) > 1% indicates that a LEFT SHIFT is Present. Laboratory - Chemistry and C hemistry - challengeOrdered By: Charly Almonte on 11-16-2023 CO2 [Moles/Vol] 25.0 mmol/L 21.0-32.0 [facility] Urea nitrogen/Creatinine [Mass ratio] 14.4 mg/mg 10-20 [facility] Laboratory - Hematology and Cell countsOrdered By: Charly Almonte on 11-16-2023 MCH (RBC) [Entitic mass] 23.1 pg 27.0-32.0 [facility] MCHC (RBC) [Mass/Vol] 31.0 g/dL 32-36 [facility] Nucleated RBC/100 WBC (Bld) [Ratio] 0 % 0-5 [facility] Platelet mean volume (Bld) [Entitic vol] 9.2 fL 6.2-12.0 [facility] Platelets (Bld) [#/Vol] 396 10*3/uL 150-450 [facility] Laboratory - Microbiology an d Antimicrobial susceptibilityOrdered By: Charly Almonte on 11-16-2023 SARS-CoV-2 (COVID-19) RNA BISI+probe Ql (Unsp spec) [facility] No Panel InformationOrdered By: Charly Almonte on 11-16-2023 Troponin I High Sensitivity 28 pg/mL 3.0-54.0 [facility] Comment on above: Please Note: New Sary t Units and Gender Specific Reference Ranges. For more information see Policy Stat Procedure [place] High Sensitivity Troponin (TNIH) and attachments. D-Dimer Quantitative (PE/DVT) 0.37 FEU/ug/m 0.27-0.49 [facility] Comment on above: NORMAL D-Dimer level (<0.50) indicates no DVT or PE. Estimated Creatinine Clearance Calc 51.83 ml/min [facility] Estimated GFR (MDRD) Amer 69 mL/min >60 [facility] Comment on above: GFR Calc Estimated GFR (MDRD) Non-Af Amer 57 mL/min >60 [facility] Comment on above: Non- GFR Calc RBC Auto (Bld) [#/Vol]Ordere d By: Charly Almonte on 11-16-2023 RBC (Bld) [#/Vol] 4.98 10*6/uL 4.2-5.4 [facility] Serum or plasma calcium angela urement (mass/volume)Ordered By: Charly Almonte on 11-16-2023 Calcium [Mass/Vol] 9.3 mg/dL 8.5-10.1 [facility] Serum or plasma creatinine m easurement (mass/volume)Ordered By: Charly Almonte on 11-16-2023 Creatinine [Mass/Vol] 1.04 mg/dL 0.55-1.02 [facility] Comment on above: The validity of the calculated GFR & GFRAA in patients over 70 years has not been determined. Clinical correlation is essential. Serum or plasma urea nitroge n measurement (mass/volume)Ordered By: Charly Almonte on 11-16-2023 Urea nitrogen [Mass/Vol] 15 mg/dL 7-18 [facility] Thin prep Papanicolaou smear with manual screeningOrdered By: Charly Almonte on 11-16-2023 Thin prep Papanicolaou smear with manual screening 5 5-15 [facility] Telephone Encounteron 2023 High Man Authentication Interface Message Text OARRS reviewed Normal [facility] Telephone Encounteron 2023 High Man Authentication Interface Message Text Patient must schedule, and keep, follow up appointments to continue to receive this medication. Normal [facility] Telephone Encounteron 2022 High Man Authentication Interface Message Text OARRS reviewed Normal [facility] Tele[facility] En[facility] 2022 High Man Authentication Interface Message Text Care Gaps Scheduling Health Maintenence Due: Medicare AWV/PCP Visit: deferred Eye Exam: not due Foot Exam: not due Annual Bloodwork: active orders YOKO: not due Normal [facility] Absolute lymphocyte countOrd ered By: Blaise Tom on 03-23-2023 Lymphocytes Auto (Unsp spec) [#/Vol] 2.35 10*3/uL 0.83-4.51 [facility] Amorphous sediment detection in urine sediment by light microscopyOrdered By: Blaise Tom on 03-23-2023 Amorphous sediment LM Ql (Urine sed) 1+ URATE [facility] Basophil percentageOrdered B y: Blaise Tom on 03-23-2023 Basophil percentage 0-5 SEEN /hpf 0-5 [facility] Basophils/100 WBC (Bld) 0.4 % 0-1 [facility] Bilirubin [Mass/Vol] 0.20 mg/dL 0.20-1.00 [facility] Comment on above: For patients on eltr ombopag therapy, use of Dimension [place] TBIL is not recommended. Chloride [Moles/Vol] 109 mmol/L 98-107 [facility] Eosinophils/100 WBC (Bld) 2.0 % 0-5 [facility] Glucose [Mass/Vol] 85 mg/dL 74-106 [facility] Neutrophils (Bld) [#/Vol] 1.8 10*3/uL 2.0-7.7 [facility] Neutrophils/100 WBC (Bld) 37.9 % 47-70 [facility] Potassium [Moles/Vol] 4.0 mmol/L 3.5-5.1 [facility] Protein [Mass/Vol] 6.7 g/dL 6.4-8.2 [facility] Sodium [Moles/Vol] 140 mmol/L 136-145 [facility] WBC (Bld) [#/Vol] 4.6 10*3/uL 4.4-11.0 [facility] Bilirubin Test strip Ql (U)O rdered By: Blaise Tom on 03-23-2023 Bilirubin Ql (U) Negative Negative [facility] Blood erythrocytes count (nu mber/volume)Ordered By: Blaise Tom on 03-23-2023 RBC (Bld) [#/Vol] 4.77 10*6/uL 4.2-5.4 [facility] Blood hemoglobin measurement (mass/volume)Ordered By: Blaise Tom on 03-23-2023 Hemoglobin (Bld) [Mass/Vol] 11.5 g/dL 12.0-15.0 [facility] Blood lymphocytes/100 leukoc ytesOrdered By: Blaise Tom on 03-23-2023 Lymphocytes/100 WBC (Bld) 51.0 % 19-41 [facility] Blood manual differential co mment interpretation (narrative result)Ordered By: Blaise Tom on 03-23-2023 Manual differential comment Ryan (Bld) [Interp] See comment [facility] Comment on above: 1+ ANISOCYTOSIS Blood monocytes/100 leukocyt esOrdered By: Blaise Tom on 03-23-2023 Monocytes/100 WBC (Bld) 8.7 % 0-10 [facility] Blood platelet mean volumeOr dered By: Blaise Tom on 03-23-2023 Platelet mean volume (Bld) [Entitic vol] 9.1 fL 6.2-12.0 [facility] Determination of erythrocyte mean corpuscular volume (MCV)Ordered By: Blaise Tom on 03-23-2023 MCV (RBC) [Entitic vol] 77.8 fL 81-99 [facility] Hematocrit Auto (Bld) [Volum e fraction]Ordered By: Blaise oTm on 03-23-2023 Hematocrit (Bld) [Volume fraction] 37.1 % 37-47 [facility] Ketones Test strip Ql (U)Ord ered By: Blaise Tom on 03-23-2023 Ketones Ql (U) 15 mg/dl Negative [facility] Laboratory - Chemistry and C hemistry - challengeOrdered By: Blaise Tom on 03-23-2023 ALP [Catalytic activity/Vol] 92 U/L 45-117 [facility] ALT [Catalytic activity/Vol] 22 U/L 13-56 [facility] CO2 [Moles/Vol] 24.0 mmol/L 21.0-32.0 [facility] Globulin (S) [Mass/Vol] 3.5 g/dL 2.2-4.2 [facility] Lipase [Catalytic activity/Vol] 38 U/L 13-75 [facility] Comment on above: Please note:LIPASE r evised reference range effective 22. New Lipase methodology. Expected to produce lower values than the previous assay method. NEW Reference Range: 13 - 75 U/L Urea nitrogen/Creatinine [Mass ratio] 17.0 mg/mg 10-20 [facility] Laboratory - Hematology and Cell countsOrdered By: Blaise Tom on 03-23-2023 Erythrocyte distribution width (RBC) [Entitic vol] 56.7 fL 35.1-43.9 [facility] Erythrocyte distribution width (RBC) [Ratio] 20.6 % 11.6-14.6 [facility] Immature granulocytes/100 WBC (Bld) 0.000 % 0.0-0.9 [facility] Comment on above: IG% - Immature Granu locytes (promyelocytes, myelocytes and metamyelocytes) > 1% indicates that a LEFT SHIFT is Present. MCH (RBC) [Entitic mass] 24.1 pg 27.0-32.0 [facility] Nucleated RBC/100 WBC (Bld) [Ratio] 0 % 0-5 [facility] MCHC Auto (RBC) [Mass/Vol]Or dered By: Blaise Tom on 03-23-2023 MCHC (RBC) [Mass/Vol] 31.0 g/dL 32-36 [facility] Mucus LM Ql (Urine sed)Order ed By: Blaise Tom on 03-23-2023 Mucus Ql (Urine sed) 0 SEEN /hpf [facility] Nitrite Test strip Ql (U)Ord ered By: Blaise Tom on 03-23-2023 Nitrite Ql (U) Negative Negative [facility] No Panel InformationOrdered By: Blaise Tom on 03-23-2023 Estimated Creatinine Clearance Calc 50.85 ml/min [facility] Estimated GFR (MDRD) Amer 67 mL/min >60 [facility] Comment on above: GFR Calc Estimated GFR (MDRD) Non-Af Amer 56 mL/min >60 [facility] Comment on above: Non- GFR Calc Platelets bldOrdered By: Darwin Tom on 03-23-2023 Platelets (Bld) [#/Vol] 225 10*3/uL 150-450 [facility] Protein Test strip Ql (U)Ord ered By: Blaise Tom on 03-23-2023 Protein Ql (U) 30 mg/dl Negative [facility] Serum or plasma albumin angela urement (mass/volume)Ordered By: Blaise Tom on 03-23-2023 Albumin [Mass/Vol] 3.2 g/dL 3.2-5.0 [facility] Serum or plasma albumin/glob ulin mass ratioOrdered By: Blaise Tom on 03-23-2023 Albumin/Globulin [Mass ratio] 0.9 {ratio} 0.9-2.4 [facility] Serum or plasma calcium angela urement (mass/volume)Ordered By: Blaise Tom on 03-23-2023 Calcium [Mass/Vol] 9.1 mg/dL 8.5-10.1 [facility] Serum or plasma creatinine m easurement (mass/volume)Ordered By: Blaise Tom on 03-23-2023 Creatinine [Mass/Vol] 1.06 mg/dL 0.55-1.02 [facility] Comment on above: The validity of the calculated GFR & GFRAA in patients over 70 years has not been determined. Clinical correlation is essential. Serum or plasma urea nitroge n measurement (mass/volume)Ordered By: Blaise Tom on 03-23-2023 Urea nitrogen [Mass/Vol] 18 mg/dL 7-18 [facility] Squamous epithelial cells de tection in urine sediment by light microscopyOrdered By: Blaise Tom on 03-23-2023 Epithelial cells.squamous LM Ql (Urine sed) 0-5 SEEN /hpf 5-10 [facility] Thin prep Papanicolaou smear with manual screeningOrdered By: Blaise Tom on 03-23-2023 Thin prep Papanicolaou smear with manual screening 17 U/L 15-37 [facility] Thin prep Papanicolaou smear with manual screening 7 5-15 [facility] Urine blood detectionOrdered By: Blaise Tom on 03-23-2023 RBC Ql (U) 10 /ul Negative [facility] RBC Ql (U) 0-5 SEEN /hpf 0-5 [facility] Urine clarityOrdered By: Darwin Tom on 03-23-2023 Clarity (U) Clear Clear [facility] Urine color determinationOrd ered By: Blaise Tom on 03-23-2023 Color (U) Yellow Yellow [facility] Urine glucose detectionOrder ed By: Blaise Tom on 03-23-2023 Glucose Ql (U) Normal mg/dl Normal [facility] Urine leukocyte esterase det ection by dipstickOrdered By: Blaise Tom on 03-23-2023 Leukocyte esterase Test strip Ql (U) 25 /ul Negative [facility] Urine pHOrdered By: Blaise ordaz on 03-23-2023 pH (U) 6.0 [pH] 5.0 - 8.0 [facility] Urine sediment bacteria coun t by microscopy (number/high power field)Ordered By: Blaise Tom on 03-23-2023 Bacteria LM.HPF (Urine sed) [#/Area] 0 /[HPF] None Seen [facility] Urine specific gravity measu rementOrdered By: Blaise Tom on 03-23-2023 Specific gravity (U) [Rel density] 1.020 1.002-1.03 0 [facility] Urobilinogen Auto test strip Ql (U)Ordered By: Blaise Tom on 03-23-2023 Urobilinogen Ql (U) 1 mg/dl Normal [facility] Telephone Encounteron 2022 High Man Authentication Interface Message Text Order pended for provider review AND signature. Requested Prescriptions Pending Prescriptions Disp Refills Syringe 23G X 1 3 ML MISC 12 Each 0 Si Syringe once a month. vitamin B-12 (CYANOCOBALAMIN) 1000 MCG/ML injection 12 Each 0 Sig: Inject 1 mL into the muscle once a month. Normal [facility] [employer] Authentication Interface Message Text Pharmacy requesting medication substitution. Medication not available to order: Cyanocobalamin 1000 MCG/ML KIT Recommended alternative medications: Pharmacy is requesting two separate prescriptions, one for the vitamin B injection solution and the other for the syringe to inject it. Prescribing provider's name: Hilton Johnson MD Pharmacy Name: [facility] Normal [facility] Telephone Encounteron 2022 High Man Authentication Interface Message Text Patient was identified [...] understanding with no further questions. Normal [facility] High Man Authentication Interface Message Text Prescribing a statin in response to the elevated cholesterol and total nonHDL cholesterol identified on her lipid panel realizing that the HDL is quite elevated and might indicate some degree of protection against CVD. Normal [facility] Addendum Noteon 03-09-2023 High Man Authentication Interface Message Text Addended by: NICHELLE HILLS on: 03/09/2023 02:14 PM Modules accepted: Orders Normal [facility] BASIC METABOLIC PANELon 08- Anion gap [Moles/Vol] 12 mmol/L Normal 10-20 [facility] Comment on above: Performed By: #### V ITB12, HDL, CH8, LUCIAN ####[facility] [id number] [place], [place], Calcium [Mass/Vol] 9.5 mg/dL Normal 8.4-10.4 [facility] Comment on above: Performed By: #### V ITB12, HDL, CH8, LUCIAN ####[facility] [id number] [place], [place], Chloride [Moles/Vol] 108 mmol/L Normal 97-111 [facility] Comment on above: Performed By: #### V ITB12, HDL, CH8, LUCIAN ####[facility] [id number] [place], CO2 [Moles/Vol] 25 mmol/L Normal 21-30 [facility] Comment on above: Performed By: #### V ITB12, HDL, CH8, LUCIAN ####S [facility] [id number] [place], Creatinine [Mass/Vol] 1.05 mg/dL Normal 0.50-1.10 [facility] Comment on above: Performed By: #### V ITB12, HDL, CH8, LUCIAN ####[facility] [id number] [place], ESTIMATED GFR (CKD-EPI) 60 mL/min/1.73sqm Normal >=60 [facility] Comment on above: Result Comment: 2020 [...] Inclusion of Race in Diagnosing Kidney Disease. [place] Journal of Kidney Diseases 202;79(2):268-88.e1. 2. N Engl J Med 1 Vol. 385 Issue 19 Pages [phone] Performed By: #### V ITB12, HDL, CH8, LUCIAN ####[facility] [id number] [place], [place], Glucose [Mass/Vol] 85 mg/dL Normal 80-116 [facility] Comment on above: Performed By: #### V ITB12, HDL, CH8, LUCIAN ####[facility] PATH[facility] [id number] [place], [place], Potassium [Moles/Vol] 4.1 mmol/L Normal 3.3-5.3 [facility] Comment on above: Performed By: #### V ITB12, HDL, CH8, LUCIAN ####[facility] [id number] [place], Sodium [Moles/Vol] 141 mmol/L Normal 135-148 [facility] Comment on above: Performed By: #### V ITB12, HDL, CH8, LUCIAN ####S PATH[facility] [id number] [place], Urea nitrogen [Mass/Vol] 16 mg/dL Normal 8-22 [facility] Comment on above: Performed By: #### V ITB12, HDL, CH8, LUCIAN ####[facility] PATH[facility] [id number] [place], [place], Basic metabolic 2000 panelon 03-09-2023 Anion [...] MDRD (S/P/Bld) [Vol rate/Area] 60 mL/min/{1.73_m2} [facility] Comment on above: 2020 CKD EPI [...] Inclusion of Race in Diagnosing Kidney Disease. [place] Journal of Kidney Diseases 202;79(2):268-88.e1. 2. N Engl J Med 2020 Vol. 385 Issue 19 Pages 5860-5943 Glucose [Mass/Vol] 85 mg/dL 80 - 116 [...] 229 10*3/uL 150 - 400 K/uL [facility] RBC (Bld) [#/Vol] 4.87 10*6/uL [facility] WBC (Bld) [#/Vol] 4.2 10*3/uL Low 4.5 - 11.5 K/uL [facility] CBC WITH DIFFERENTIALon 08-0 Basophils (Bld) [#/Vol] 0.03 10*3/uL Normal 0.00-0.20 [facility] Comment on above: Performed By: ###KERI VILLATORO ####S PATHOLOGY [id number] [place], [place], Basophils/100 WBC (Bld) 0.8 % Normal <=1.9 [facility] Comment on above: Performed By: ###KERI VILLATORO ####[facility] [id number] [place], [place], Eosinophils (Bld) [#/Vol] 0.08 10*3/uL Normal 0.00-0.70 [facility] Comment on above: Performed By: #### KERI BEASLEY ####[facility] [id number] [place], [place], Eosinophils/100 WBC (Bld) 2.0 % Normal 0.1-4.0 [facility] Comment on above: Performed By: #### KERI BEASLEY ####[facility] PATHOLOGY [id number] [place], [place], Erythrocyte distribution width (RBC) [Ratio] 20.3 % High 11.5-14.5 [facility] Comment on above: Performed By: #### KERI BEASLEY ####S PATHOLOGY [id number] [place], [place], Hematocrit (Bld) [Volume fraction] 37.7 % Normal 36.0-46.0 [facility] Comment on above: Performed By: ###KERI VILLATORO ####S PATHOLOGY [id number] [place], [place], Hemoglobin (Bld) [Mass/Vol] 11.9 g/dL Low 12.0-15.0 [facility] Comment on above: Performed By: ###KERI VILLATORO ####[facility] PATH[facility]Y [id number] [place], Lymphocytes (Bld) [#/Vol] 2.22 10*3/uL Normal 1.00-4.80 [facility] Comment on above: Performed By: #### KERI BEASLEY ####[facility] PATHOLOGY [id number] [place] [address], Lymphocytes/100 WBC (Bld) 53.0 % High 24.0-44.0 [facility] Comment on above: Performed By: ###KERI VILLATORO ####[facility] PATHOLOGY [id number] [place] [address], MCH (RBC) [Entitic mass] 24.5 pg Low 26.0-34.0 [facility] Comment on above: Performed By: ###KERI VILLATORO ####[facility] PATHOLOGY [id number] [place] [address], MCHC (RBC) [Mass/Vol] 31.6 g/dL Low 32.0-35.9 [facility] Comment on above: Performed By: ###KERI VILLATORO ####[facility] PATHOLOGY [id number] [place] [address], MCV (RBC) [Entitic vol] 78 fL Low 80-100 [facility] Comment on above: Performed By: ###KERI VILLATORO ####[facility] PATHOLOG[facility] [id number] [place] [address], MONOCYTE DISTRIBUTION WIDTH Normal [facility] Comment on above: Performed By: ###KERI VILLATORO ####[facility] PATH[facility] [id number] [place], Monocytes (Bld) [#/Vol] 0.29 10*3/uL Normal 0.20-1.00 [facility] Comment on above: Performed By: ###KERI VILLATORO ####[facility] PATHOLOG[facility] [id number] [place] [address], [place], Monocytes/100 WBC (Bld) 7.0 % Normal 2.0-11.0 [facility] Comment on above: Performed By: ###KERI VILLATORO ####[facility] [id number] [place], Neutrophils (Bld) [#/Vol] 1.56 10*3/uL Normal 1.50-8.00 [facility] Comment on above: Performed By: #### KERI BEASLEY ####[facility] [id number] [place], Neutrophils/100 WBC (Bld) 37.3 % Normal 31.0-76.0 [facility] Comment on above: Performed By: ###KERI VILLATORO ####[facility] [id number] [place] [address], Platelet mean volume (Bld) [Entitic vol] 8.0 fL Normal 7.5-11.2 [facility] Comment on above: Performed By: ###KERI VILLATORO ####[facility] [id number] [place], Platelets (Bld) [#/Vol] 229 10*3/uL Normal 150-400 [facility] Comment on above: Performed By: #### KERI BEASLEY ####[facility] [id number] [place], RBC (Bld) [#/Vol] 4.87 10*6/uL Normal 4.00-5.20 [facility] Comment on above: Performed By: ###KERI VILLATORO ####S PATHOLOGY [id number] [place], WBC (Bld) [#/Vol] 4.2 10*3/uL Low 4.5-11.5 [facility] Comment on above: Performed By: ###KERI VILLATORO ####S PATHOLOGY [id number] [place], DARK BLUE TOP TUBE, BLOODon 08-08-2023 Extra Tube Done [facility] FERRITINon 03-09-2023 Ferritin [Mass/Vol] 12.2 ng/mL 10.3 - 219.0 ng/mL [facility] Interpretation and review of laboratory results Normal [facility] LUCIAN 12.2 ng/mL Normal 10.3-219.0 [facility] Comment on above: Performed By: #### V ITB12, HDL, CH8, LUCIAN ####[facility] [id number] [place], FULL LIPID PROFILEon 023 Cholesterol [Mass/Vol] 256 mg/dL High <200 Th e [facility] Comment on above: Performed By: #### V ITB12, HDL, CH8, LUCIAN ####[facility] PATH[facility] [id number] [place] [address], Cholesterol in LDL [Mass/Vol] 175 mg/dL High <111 [facility] Comment on above: Performed By: #### V ITB12, HDL, CH8, LUCIAN ####[facility] PATH[facility] [id number] [place] [address], Cholesterol.total/Chol esterol in HDL [Mass ratio] 3.66 {ratio} Normal <5.00 [facility] Comment on above: Performed By: #### V ITB12, HDL, CH8, LUCIAN ####[facility] PATH[facility] [id number] [place] [address], HDL CHOL 70 mg/dL Normal >54 [facility] Comment on above: Performed By: #### V ITB12, HDL, CH8, LUCIAN ####[facility] [id number] [place], LDL/HDL 2.50 Normal <3.57 [facility] Comment on above: Performed By: #### V ITB12, HDL, CH8, LUCIAN ####[facility] [id number] [place], NON-HDL CHOLESTEROL 186 mg/dL High <130 [facility] Comment on above: Performed By: #### V ITB12, HDL, CH8, LUCIAN ####[facility] PATH[facility] [id number] [place], [address] Triglyceride [Mass/Vol] 86 mg/dL Normal <151 [facility] Comment on above: Performed By: #### V ITB12, HDL, CH8, LUCIAN ####[facility] PATH[facility] [id number] [place], [address] HEMOGLOBIN A1Con 03-09-2023 Glucose [Mass/Vol] 123 mg/dL Normal [facility] Comment on above: Performed By: #### H B A1C #### [facility] [address] [place], [address] HbA1c (Bld) [Mass fraction] 5.9 % High 4.0-5.6 [facility] Comment on above: Performed By: #### H B A1C #### [facility] [address] [place], [address] Lipid 1996 panelon 3 Cholesterol [Mass/Vol] 256 [...] Performed By: #### KERI BEASLEY ####[facility] [id number] [place], FRAGMENTED RBC Few Normal [facility] Comment on above: Performed By: #### KERI BEASLEY ####[facility] [id number] [place], HYPOCHROMASIA Slight Normal [facility] Comment on above: Performed By: #### KERI BEASLEY ####[facility] [id number] [place], MICROCYTOSIS Slight Normal [facility] Comment on above: Performed By: #### KERI BEASLEY ####[facility] [id number] [place], OVALOCYTES Few Normal [facility] Comment on above: Performed By: #### KERI BEASLEY ####[facility] [id number] [place], SPHEROCYTES Few Normal [facility] Comment on above: Performed By: #### KERI BEASLEY ####S PATHOLOGY [id number] [place], No Panel Informationon 03-09 [facility] Progress Noteson 03-09-2023 High Man Authentication Interface Message Text Patient identified by name and date of . Blood obtained from arm. Normal [facility] High Man Authentication Interface Message Text Date: 03/09/23 Morena Patton 63 year old, female [id number] CHIEF COMPLAINT: Chief Complaint Patient presents with [...] about a week ago. She lives in [place] but came here today because viktoriya really knows me. She ran out of most of her medications and has not been taking them. She passed out last week and picked up some medications at that time. She is now on a heart monitor. She is due to see a gas fitter apprentice when she turns in her monitor. She was in the ED on January 30 for abdominal pain. She was discharged on Carafate. She started taking it on 02/24. She was in pain the entire time up until starting to take it. Her pain is now improved but not resolved. She states that she needs to see a livestock auctioneer and Neurologist and gas fitter apprentice. ED Morena Patton is a 62 year [...] with use of omeprazole, lidocaine patches, and [id number] mg tylenol which she has been taking [...] content not included)... Normal [facility] High Man Authentication Interface Message Text Identification was verified [...] on above: Order Comment: <152 pg/mL - [id number] - 300 pg/mL- Insufficient>300 pg/mL - Sufficient Performed By: #### V ITB12, HDL, CH8, LUCIAN ####[facility] [id number] [place], [address] VITAMIN D, 25-HYDROXYon 25-hydroxyvitamin D IA [Mass/Vol] 62 ng/mL 30 - 100 ng/mL [facility] Interpretation and review of laboratory results Normal [facility] Deficient : <20.0 ng /mL Insufficient : 20.0-29.9 ng/mL Sufficient : 30.0 - 100.0 ng/mL Potential Toxicity : >100.0 ng/mL [facility] Telephone Encounteron 2022 High Man Authentication Interface Message Text Patient is calling [...] Auto (Unsp spec) [#/Vol] 2.12 10*3/uL 0.83-4.51 [facility] Basophil percentageOrdered B y: Virginie Aguillon on 02-16-2023 Basophils/100 WBC (Bld) 0.8 % 0-1 [facility] Chloride [Moles/Vol] 108 mmol/L 98-107 [facility] Eosinophils/100 WBC (Bld) 4.0 % 0-5 [facility] Glucose [Mass/Vol] 91 mg/dL 74-106 [facility] Neutrophils (Bld) [#/Vol] 0.9 10*3/uL 2.0-7.7 [facility] Neutrophils/100 WBC (Bld) 26.0 % 47-70 [facility] Potassium [Moles/Vol] 4.0 mmol/L 3.5-5.1 [facility] Sodium [Moles/Vol] 138 mmol/L 136-145 [facility] WBC (Bld) [#/Vol] 3.5 10*3/uL 4.4-11.0 [facility] Blood erythrocytes count (nu mber/volume)Ordered By: Virginie Aguillon on 02-16-2023 RBC (Bld) [#/Vol] 4.45 10*6/uL 4.2-5.4 [facility] Blood hemoglobin measurement (mass/volume)Ordered By: Virginie Aguillon on 02-16-2023 Hemoglobin (Bld) [Mass/Vol] 10.5 g/dL 12.0-15.0 [facility] Blood lymphocytes/100 leukoc ytesOrdered By: Virginie Aguillon on 02-16-2023 Lymphocytes/100 WBC (Bld) 60.1 % 19-41 [facility] Blood manual differential co mment interpretation (narrative result)Ordered By: Virginie Aguillon on 02-16-2023 Manual differential comment Ryan (Bld) [Interp] SCANNED [facility] Comment on above: NEUTROPENIA Blood monocytes/100 leukocyt esOrdered By: Virginie Aguillon on 02-16-2023 Monocytes/100 WBC (Bld) 8.8 % 0-10 [facility] Blood platelet mean volumeOr dered By: Virginie Aguillon on 02-16-2023 Platelet mean volume (Bld) [Entitic vol] 10.1 fL 6.2-12.0 [facility] Determination of erythrocyte mean corpuscular volume (MCV)Ordered By: Virginie Aguillon on 02-16-2023 MCV (RBC) [Entitic vol] 79.1 fL 81-99 [facility] Hematocrit Auto (Bld) [Volum e fraction]Ordered By: Virginie Aguillon on 02-16-2023 Hematocrit (Bld) [Volume fraction] 35.2 % 37-47 [facility] Laboratory - Chemistry and C hemistry - challengeOrdered By: Virginie Aguillon on 02-16-2023 CO2 [Moles/Vol] 25.0 mmol/L 21.0-32.0 [facility] Urea nitrogen/Creatinine [Mass ratio] 8.9 mg/mg 10-20 [facility] - Hematology and Cell countsOrdered By: Virginie Aguillon on 02-16-2023 Erythrocyte distribution width (RBC) [Entitic vol] 52.3 fL 35.1-43.9 [facility] Erythrocyte distribution width (RBC) [Ratio] 18.6 % 11.6-14.6 [facility] Immature granulocytes/100 WBC (Bld) 0.300 % 0.0-0.9 [facility] Comment on above: IG% - Immature Granu locytes (promyelocytes, myelocytes and metamyelocytes) > 1% indicates that a LEFT SHIFT is Present. MCH (RBC) [Entitic mass] 23.6 pg 27.0-32.0 [facility] Nucleated RBC/100 WBC (Bld) [Ratio] 0 % 0-5 [facility] MCHC Auto (RBC) [Mass/Vol]Or dered By: Virginie Aguillon on 02-16-2023 MCHC (RBC) [Mass/Vol] 29.8 g/dL 32-36 [facility] Comment on above: Delta: 31.7 on 02/15-0600 No Panel InformationOrdered By: Virginie Aguillon on 02-16-2023 Estimated Creatinine Clearance Calc 48.13 ml/min [facility] Estimated GFR (MDRD) Amer 63 mL/min >60 [facility] Comment on above: GFR Calc Estimated GFR (MDRD) Non-Af Amer 52 mL/min >60 [facility] Comment on above: Non- GFR Calc Platelets bldOrdered By: Lucero Aguillon on 02-16-2023 Platelets (Bld) [#/Vol] 206 10*3/uL 150-450 [facility] Serum or plasma calcium angela urement (mass/volume)Ordered By: Virginie Aguillon on 02-16-2023 Calcium [Mass/Vol] 9.1 mg/dL 8.5-10.1 [facility] Serum or plasma creatinine m easurement (mass/volume)Ordered By: Virginie Aguillon on 02-16-2023 Creatinine [Mass/Vol] 1.12 mg/dL 0.55-1.02 [facility] Comment on above: The validity of the calculated GFR & GFRAA in patients over 70 years has not been determined. Clinical correlation is essential. Serum or plasma urea nitroge n measurement (mass/volume)Ordered By: Virginie Aguillon on 02-16-2023 Urea nitrogen [Mass/Vol] 10 mg/dL 02-16 [facility] Thin prep Papanicolaou smear with manual screeningOrdered By: Virginie Aguillon on 02-16-2023 Thin prep Papanicolaou smear with manual screening 5 5- [facility] Basophil percentageOrdered B y: Drew Solis on 02-15-2023 Basophil percentage 3.6 mg/dL 2.5-4.9 [facility] Bilirubin [Mass/Vol] 0.20 mg/dL 0.20-1.00 [facility] Comment on above: For patients on eltr ombopag therapy, use of Dimension [place] TBIL is not recommended. Cholesterol [Mass/Vol] 196 mg/dL <200 [facility] Comment on above: <200 mg/dL Desirable 200-240 mg/dL Borderline >240 mg/dL High Risk Protein [Mass/Vol] 6.1 g/dL 6.4-8.2 [facility] Triglyceride [Mass/Vol] 141 mg/dL <199 [facility] Comment on above: The drugs N-Acetylcy steine and Metamizole may falsely depress this assay.Serum Triglycerides Reference Interval Normal <150 mg/dL Borderline high 150 - 199 mg/dL High 200 - 499 mg/dL Very High > or = 500 mg/dL Laboratory - Chemistry and C hemistry - challengeOrdered By: Drew Solis on 02-15-2023 ALP [Catalytic activity/Vol] 81 U/L 45-117 [facility] ALT [Catalytic activity/Vol] 15 U/L 13-56 [facility] Globulin (S) [Mass/Vol] 3.4 g/dL 2.2-4.2 [facility] Magnesium [Mass/Vol] 2.3 mg/dL 1.6-2.6 [facility] No Panel InformationOrdered By: Drew Solis on 02-15-2023 Thyroid Stimulating Hormone (TSH) 1.25 uIU/mL 0.358-3.74 [facility] Serum or plasma albumin angela urement (mass/volume)Ordered By: Drew Solis on 02-15-2023 Albumin [Mass/Vol] 2.7 g/dL 3.2-5.0 [facility] Serum or plasma albumin/glob ulin mass ratioOrdered By: Drew Solis on 02-15-2023 Albumin/Globulin [Mass ratio] 0.8 {ratio} 0.9-2.4 [facility] Serum or plasma cholesterol in HDL measurement (mass/volume)Ordered By: Drew Solis on 02-15-2023 Cholesterol in HDL [Mass/Vol] 92 mg/dL >40 [facility] Comment on above: The drugs N-Acetylcy steine and Metamizole may falsely depress this assay. Reference Range HDL <40 mg/dL Low HDL Cholesterol HDL >or= 60 mg/dL High HDL Cholesterol Serum or plasma cholesterol in VLDL measurement (mass/volume)Ordered By: Drew Solis on 02-15-2023 Cholesterol in VLDL [Mass/Vol] 28 mg/dL 5-40 [facility] Serum or plasma low density lipoprotein (LDL) cholesterol measurement (mass/volume)Ordered By: Drew Solis on 02-15-2023 Cholesterol in LDL [Mass/Vol] 76 mg/dL 0-130 [facility] Thin prep Papanicolaou smear with manual screeningOrdered By: Drew Solis on 02-15-2023 Thin prep Papanicolaou smear with manual screening 19 U/L 15-37 [facility] Iron measurement (mass/mass) Ordered By: Drew Solis on 02-14-2023 Iron (Unsp spec) [Mass/Mass] 23 ug/dL 50-170 [facility] Laboratory - Chemistry and C hemistry - challengeOrdered By: Jeniffer Campos on 02-14-2023 Cobalamin (Vitamin B12) [Mass/Vol] 199 pg/mL 211-911 [facility] No Panel InformationOrdered By: Drew Solis on 02-14-2023 Total Iron Binding Capacity 375 ug/dL 250-450 [facility] No Panel InformationOrdered By: Jeniffer Campos on 02-14-2023 Troponin I High Sensitivity 27 pg/mL 3.0-54.0 [facility] Comment on above: Please Note: New Sary t Units and Gender Specific Reference Ranges. For more information see Policy Stat Procedure [place] High Sensitivity Troponin (TNIH) and attachments. Serum or plasma ferritin cortney surement (mass/volume)Ordered By: Drew Solis on 02-14-2023 Ferritin [Mass/Vol] 9 ng/mL 8-252 [facility] Serum or plasma folate measu rement (mass/volume)Ordered By: Jeniffer Campos on 02-14-2023 Folate [Mass/Vol] 7.40 ng/mL 3.1-55.4 [facility] Serum or plasma iron saturat ion measurement (mass fraction)Ordered By: Drew Solis on 02-14-2023 Iron saturation [Mass fraction] 6.1 % 15.0-55.0 [facility] Absolute lymphocyte countOrd ered By: Albert Carbone on 02-13-2023 Lymphocytes Auto (Unsp spec) [#/Vol] 1.92 10*3/uL 0.83-4.51 [facility] Basophil percentageOrdered B y: Albert Carbone on 02-13-2023 Potassium [Moles/Vol] 4.1 mmol/L 3.5-5.1 [facility] Basophils/100 WBC (Bld) 0.7 % 0-1 [facility] Chloride [Moles/Vol] 106 mmol/L 98-107 [facility] Eosinophils/100 WBC (Bld) 1.9 % 0-5 [facility] Glucose [Mass/Vol] 99 mg/dL 74-106 [facility] Neutrophils (Bld) [#/Vol] 1.7 10*3/uL 2.0-7.7 [facility] Neutrophils/100 WBC (Bld) 39.8 % 47-70 [facility] Sodium [Moles/Vol] 136 mmol/L 136-145 [facility] WBC (Bld) [#/Vol] 4.2 10*3/uL 4.4-11.0 [facility] Blood erythrocytes count (nu mber/volume)Ordered By: Albert Carbone on 02-13-2023 RBC (Bld) [#/Vol] 5.13 10*6/uL 4.2-5.4 [facility] Blood hemoglobin measurement (mass/volume)Ordered By: Albert Carbone on 02-13-2023 Hemoglobin (Bld) [Mass/Vol] 12.2 g/dL 12.0-15.0 [facility] Blood lymphocytes/100 leukoc ytesOrdered By: Albert Carbone on 02-13-2023 Lymphocytes/100 WBC (Bld) 46.3 % 19-41 [facility] Blood monocytes/100 leukocyt esOrdered By: Albert Carbone on 02-13-2023 Monocytes/100 WBC (Bld) 10.8 % 0-10 [facility] Blood platelet mean volumeOr dered By: Albert Carbone on 02-13-2023 Platelet mean volume (Bld) [Entitic vol] 9.8 fL 6.2-12.0 [facility] Determination of erythrocyte mean corpuscular volume (MCV)Ordered By: Albert Carbone on 02-13-2023 MCV (RBC) [Entitic vol] 75.8 fL 81-99 [facility] Hematocrit Auto (Bld) [Volum e fraction]Ordered By: Albert Carbone on 02-13-2023 Hematocrit (Bld) [Volume fraction] 38.9 % 37-47 [facility] Laboratory - Chemistry and C hemistry - challengeOrdered By: Jeniffer Campos on 02-13-2023 Magnesium [Mass/Vol] 2.0 mg/dL 1.6-2.6 [facility] - Chemistry and C hemistry - challengeOrdered By: Albert Carbone on 02-13-2023 CO2 [Moles/Vol] 23.0 mmol/L 21.0-32.0 [facility] Urea nitrogen/Creatinine [Mass ratio] 11.3 mg/mg 10-20 [facility] - Drug toxicology Ordered By: Jeniffer Campos on 02-13-2023 Amphetamines Ql (U) Negative <1000 ng/mL [facility] Benzodiazepines Ql (U) Negative < 200 ng/mL [facility] Cannabinoids Screen Ql (U) Positive < 50 ng/mL [facility] Cocaine Ql (U) Negative < 300 ng/mL [facility] Opiates Ql (U) Negative < 300 ng/mL [facility] Laboratory - Hematology and Cell countsOrdered By: Albert Carbone on 02-13-2023 Erythrocyte distribution width (RBC) [Entitic vol] 47.8 fL 35.1-43.9 [facility] Erythrocyte distribution width (RBC) [Ratio] 18.0 % 11.6-14.6 [facility] Immature granulocytes/100 WBC (Bld) 0.500 % 0.0-0.9 [facility] Comment on above: IG% - Immature Granu locytes (promyelocytes, myelocytes and metamyelocytes) > 1% indicates that a LEFT SHIFT is Present. MCH (RBC) [Entitic mass] 23.8 pg 27.0-32.0 [facility] Nucleated RBC/100 WBC (Bld) [Ratio] 0 % 0-5 [facility] MCHC Auto (RBC) [Mass/Vol]Or dered By: Albert Carbone on 02-13-2023 MCHC (RBC) [Mass/Vol] 31.4 g/dL 32-36 [facility] No Panel InformationOrdered By: Jeniffer Campos on 02-13-2023 Ethyl Alcohol Level < 3.0 mg/dL [facility] Comment on above: The serum:whole bloo d ethanol ratio is approximately 1.14and varies slightly with hematocrit. Medical Alcohol reference interval and critical value innon-tolerant individuals; 50 - 100 Impairment 100 Intoxication 100 - 250 Severe Poisoning 250 - 400 Deep/possible fatal coma MDMA (Ecstasy) Screen Negative < 500 ng/mL [facility] Urine Barbiturates Screen Negative < 200 ng/mL [facility] Urine Drug Screen Comment [facility] Comment on above: CONFIRMATORY TESTING FOR [...] Urine Methadone Screen Negative < 300 ng/mL [facility] No Panel InformationOrdered By: Albert Carbone on 02-13-2023 Estimated Creatinine Clearance Calc 50.85 ml/min [facility] Estimated GFR (MDRD) Amer 67 mL/min >60 [facility] Comment on above: GFR Calc Estimated GFR (MDRD) Non-Af Amer 56 mL/min >60 [facility] Comment on above: Non- GFR Calc Troponin I High Sensitivity 26 pg/mL 3.0-54.0 [facility] Comment on above: Please Note: New Sary t Units and Gender Specific Reference Ranges. For more information see Policy Stat Procedure [place] High Sensitivity Troponin (TNIH) and attachments. Platelets bldOrdered By: Didier Carbone on 02-13-2023 Platelets (Bld) [#/Vol] 237 10*3/uL 150-450 [facility] Serum or plasma calcium angela urement (mass/volume)Ordered By: Albert Carbone on 02-13-2023 Calcium [Mass/Vol] 9.3 mg/dL 8.5-10.1 [facility] Serum or plasma creatinine m easurement (mass/volume)Ordered By: Albert Carbone on 02-13-2023 Creatinine [Mass/Vol] 1.06 mg/dL 0.55-1.02 [facility] Comment on above: The validity of the calculated GFR & GFRAA in patients over 70 years has not been determined. Clinical correlation is essential. Serum or plasma urea nitroge n measurement (mass/volume)Ordered By: Albert Carbone on 02-13-2023 Urea nitrogen [Mass/Vol] 12 mg/dL 02-16 [facility] Thin prep Papanicolaou smear with manual screeningOrdered By: Albert Carbone on 02-13-2023 Thin prep Papanicolaou smear with manual screening 12-14 [facility] Urine phencyclidine (PCP) de tectionOrdered By: Jeniffer Campos on 02-13-2023 Phencyclidine Ql (U) Negative < 25 ng/mL [facility] Absolute lymphocyte countOrd ered By: Dr. Tom on 10-22-2022 Lymphocytes Auto (Unsp spec) [#/Vol] 2.07 10*3/uL 0.83-4.51 [facility] Basophil percentageOrdered B y: Dr. Tom on 10-22-2022 Basophil percentage 0-5 SEEN /hpf 0-5 [facility] Basophils/100 WBC (Bld) 0.6 % 0-1 [facility] Bilirubin [Mass/Vol] 0.30 mg/dL 0.20-1.00 [facility] Comment on above: For patients on eltr ombopag therapy, use of Dimension [place] TBIL is not recommended. Chloride [Moles/Vol] 109 mmol/L 98-107 [facility] Eosinophils/100 WBC (Bld) 2.5 % 0-5 [facility] Glucose [Mass/Vol] 106 mg/dL 74-106 [facility] Comment on above: Fasting Glucose resu lt from 100 to 125 mg/dL suggests IMPAIRED HOMEOSTASIS per A.D.A. criteria. Neutrophils (Bld) [#/Vol] 2.2 10*3/uL 2.0-7.7 [facility] Neutrophils/100 WBC (Bld) 45.8 % 47-70 [facility] Potassium [Moles/Vol] 3.8 mmol/L 3.5-5.1 [facility] Protein [Mass/Vol] 7.0 g/dL 6.4-8.2 [facility] Sodium [Moles/Vol] 139 mmol/L 136-145 [facility] WBC (Bld) [#/Vol] 4.8 10*3/uL 4.4-11.0 [facility] Bilirubin Test strip Ql (U)O rdered By: Dr. Tom on 10-22-2022 Bilirubin Ql (U) Negative Negative [facility] Blood erythrocytes count (nu mber/volume)Ordered By: Dr. Tom on 10-22-2022 RBC (Bld) [#/Vol] 4.84 10*6/uL 4.2-5.4 [facility] Blood hemoglobin measurement (mass/volume)Ordered By: Dr. Tom on 10-22-2022 Hemoglobin (Bld) [Mass/Vol] 12.2 g/dL 12.0-15.0 [facility] Blood lymphocytes/100 leukoc ytesOrdered By: Dr. Tom on 10-22-2022 Lymphocytes/100 WBC (Bld) 43.4 % 19-41 [facility] Blood monocytes/100 leukocyt esOrdered By: Dr. Tom on 10-22-2022 Monocytes/100 WBC (Bld) 7.5 % 0-10 [facility] Blood platelet mean volumeOr dered By: Dr. Tom on 10-22-2022 Platelet mean volume (Bld) [Entitic vol] 9.1 fL 6.2-12.0 [facility] Determination of erythrocyte mean corpuscular volume (MCV)Ordered By: Dr. Tom on 10-22-2022 MCV (RBC) [Entitic vol] 77.9 fL 81-99 [facility] Hematocrit Auto (Bld) [Volum e fraction]Ordered By: Dr. Tom on 10-22-2022 Hematocrit (Bld) [Volume fraction] 37.7 % 37-47 [facility] Ketones Test strip Ql (U)Ord ered By: Dr. Tom on 10-22-2022 Ketones Ql (U) Negative Negative [facility] Laboratory - Chemistry and C hemistry - challengeOrdered By: Dr. Tom on 10-22-2022 ALP [Catalytic activity/Vol] 95 U/L 45-117 [facility] ALT [Catalytic activity/Vol] 15 U/L 13-56 [facility] CO2 [Moles/Vol] 22.0 mmol/L 21.0-32.0 [facility] Globulin (S) [Mass/Vol] 3.4 g/dL 2.2-4.2 [facility] Lipase [Catalytic activity/Vol] 182 U/L 73-393 [facility] Urea nitrogen/Creatinine [Mass ratio] 15.2 mg/mg 10-20 [facility] Laboratory - Hematology and Cell countsOrdered By: Dr. Tom on 10-22-2022 Erythrocyte distribution width (RBC) [Entitic vol] 47.2 fL 35.1-43.9 [facility] Erythrocyte distribution width (RBC) [Ratio] 17.1 % 11.6-14.6 [facility] Immature granulocytes/100 WBC (Bld) 0.200 % 0.0-0.9 [facility] Comment on above: IG% - Immature Granu locytes (promyelocytes, myelocytes and metamyelocytes) > 1% indicates that a LEFT SHIFT is Present. MCH (RBC) [Entitic mass] 25.2 pg 27.0-32.0 [facility] Nucleated RBC/100 WBC (Bld) [Ratio] 0 % 0-5 [facility] MCHC Auto (RBC) [Mass/Vol]Or dered By: Dr. Tom on 10-22-2022 MCHC (RBC) [Mass/Vol] 32.4 g/dL 32-36 [facility] Mucus LM Ql (Urine sed)Order ed By: Dr. Tom on 10-22-2022 Mucus Ql (Urine sed) 0 SEEN /hpf [facility] Nitrite Test strip Ql (U)Ord ered By: Dr. Tom on 10-22-2022 Nitrite Ql (U) Negative Negative [facility] No Panel InformationOrdered By: Dr. Tom on 10-22-2022 Estimated Creatinine Clearance Calc 55.16 ml/min [facility] Estimated GFR (MDRD) Amer 73 mL/min >60 [facility] Comment on above: GFR Calc Estimated GFR (MDRD) Non-Af Amer 61 mL/min >60 [facility] Comment on above: Non- GFR Calc Troponin I High Sensitivity 27 pg/mL 3.0-54.0 [facility] Comment on above: Please Note: New Sary t Units and Gender Specific Reference Ranges. For more information see Policy Stat Procedure [place] High Sensitivity Troponin (TNIH) and attachments. Platelets bldOrdered By: Dr. Tom on 10-22-2022 Platelets (Bld) [#/Vol] 276 10*3/uL 150-450 [facility] Protein Test strip Ql (U)Ord ered By: Dr. Tom on 10-22-2022 Protein Ql (U) 30 mg/dl Negative [facility] Serum or plasma albumin angela urement (mass/volume)Ordered By: Dr. Tom on 10-22-2022 Albumin [Mass/Vol] 3.6 g/dL 3.2-5.0 [facility] Serum or plasma albumin/glob ulin mass ratioOrdered By: Dr. Tom on 10-22-2022 Albumin/Globulin [Mass ratio] 1.1 {ratio} 0.9-2.4 [facility] Serum or plasma calcium angela urement (mass/volume)Ordered By: Dr. Tom on 10-22-2022 Calcium [Mass/Vol] 9.3 mg/dL 8.5-10.1 [facility] Serum or plasma creatinine m easurement (mass/volume)Ordered By: Dr. Tom on 10-22-2022 Creatinine [Mass/Vol] 0.99 mg/dL 0.55-1.02 [facility] Comment on above: The validity of the calculated GFR & GFRAA in patients over 70 years has not been determined. Clinical correlation is essential. Serum or plasma urea nitroge n measurement (mass/volume)Ordered By: Dr. Tom on 10-22-2022 Urea nitrogen [Mass/Vol] 15 mg/dL 7-18 [facility] Squamous epithelial cells de tection in urine sediment by light microscopyOrdered By: Dr. Tom on 10-22-2022 Epithelial cells.squamous LM Ql (Urine sed) 0-5 SEEN /hpf 5-10 [facility] Thin prep Papanicolaou smear with manual screeningOrdered By: Dr. Tom on 10-22-2022 Thin prep Papanicolaou smear with manual screening 16 U/L 15-37 [facility] Thin prep Papanicolaou smear with manual screening 8 5-15 [facility] Urine blood detectionOrdered By: Dr. Tom on 10-22-2022 RBC Ql (U) 150 /ul Negative [facility] RBC Ql (U) 0 SEEN /hpf 0-5 [facility] Urine clarityOrdered By: Dr. Tom on 10-22-2022 Clarity (U) Clear Clear [facility] Urine color determinationOrd ered By: Dr. Tom on 10-22-2022 Color (U) YELLOW Yellow [facility] Urine glucose detectionOrder ed By: Dr. Tom on 10-22-2022 Glucose Ql (U) Normal mg/dl Normal [facility] Urine leukocyte esterase det ection by dipstickOrdered By: Dr. Tom on 10-22-2022 Leukocyte esterase Test strip Ql (U) 500 /ul Negative [facility] Urine pHOrdered By: Dr. Porfirio li on 10-22-2022 pH (U) 7.0 [pH] 5.0 - 8.0 [facility] Urine sediment bacteria coun t by microscopy (number/high power field)Ordered By: Dr. Tom on 10-22-2022 Bacteria LM.HPF (Urine sed) [#/Area] 0 /[HPF] None Seen [facility] Urine specific gravity measu rementOrdered By: Dr. Tom on 10-22-2022 Specific gravity (U) [Rel density] 1.015 1.002-1.03 0 [facility] Urobilinogen Auto test strip Ql (U)Ordered By: Dr. Tom on 10-22-2022 Urobilinogen Ql (U) Normal mg/dl Normal [facility] Absolute lymphocyte countOrd ered By: Dr. Houston on 07-07-2022 Lymphocytes Auto (Unsp spec) [#/Vol] 2.12 10*3/uL 0.83-4.51 [facility] Basophil percentageOrdered B y: Dr. Houston on 07-07-2022 Basophils/100 WBC (Bld) 0.6 % 0-1 [facility] Bilirubin [Mass/Vol] 0.40 mg/dL 0.20-1.00 [facility] Comment on above: For patients on eltr ombopag therapy, use of Dimension [place] TBIL is not recommended. Chloride [Moles/Vol] 101 mmol/L 98-107 [facility] Eosinophils/100 WBC (Bld) 1.5 % 0-5 [facility] Glucose [Mass/Vol] 100 mg/dL 74-106 [facility] Comment on above: Fasting Glucose resu lt from 100 to 125 mg/dL suggests IMPAIRED HOMEOSTASIS per A.D.A. criteria. Neutrophils (Bld) [#/Vol] 2.2 10*3/uL 2.0-7.7 [facility] Neutrophils/100 WBC (Bld) 45.8 % 47-70 [facility] Potassium [Moles/Vol] 3.9 mmol/L 3.5-5.1 [facility] Protein [Mass/Vol] 7.0 g/dL 6.4-8.2 [facility] Sodium [Moles/Vol] 134 mmol/L 136-145 [facility] WBC (Bld) [#/Vol] 4.7 10*3/uL 4.4-11.0 [facility] Blood erythrocytes count (nu mber/volume)Ordered By: Dr. Houston on 07-07-2022 RBC (Bld) [#/Vol] 4.94 10*6/uL 4.2-5.4 [facility] Blood hemoglobin measurement (mass/volume)Ordered By: Dr. Houston on 07-07-2022 Hemoglobin (Bld) [Mass/Vol] 13.1 g/dL 12.0-15.0 [facility] Blood lymphocytes/100 leukoc ytesOrdered By: Dr. Houston on 07-07-2022 Lymphocytes/100 WBC (Bld) 44.9 % 19-41 [facility] Blood monocytes/100 leukocyt esOrdered By: Dr. Houston on 07-07-2022 Monocytes/100 WBC (Bld) 7.0 % 0-10 [facility] Blood platelet mean volumeOr dered By: Dr. Houston on 07-07-2022 Platelet mean volume (Bld) [Entitic vol] 8.9 fL 6.2-12.0 [facility] Determination of erythrocyte mean corpuscular volume (MCV)Ordered By: Dr. Houston on 07-07-2022 MCV (RBC) [Entitic vol] 80.8 fL 81-99 [facility] Hematocrit Auto (Bld) [Volum e fraction]Ordered By: Dr. Houston on 07-07-2022 Hematocrit (Bld) [Volume fraction] 39.9 % 37-47 [facility] - Chemistry and C hemistry - challengeOrdered By: Dr. Houston on 07-07-2022 ALP [Catalytic activity/Vol] 92 U/L 45-117 [facility] ALT [Catalytic activity/Vol] 16 U/L 13-56 [facility] CO2 [Moles/Vol] 24.0 mmol/L 21.0-32.0 [facility] Globulin (S) [Mass/Vol] 3.7 g/dL 2.2-4.2 [facility] Urea nitrogen/Creatinine [Mass ratio] 15.9 mg/mg 10-20 [facility] - Hematology and Cell countsOrdered By: Dr. Houston on 07-07-2022 Erythrocyte distribution width (RBC) [Entitic vol] 50.6 fL 35.1-43.9 [facility] Erythrocyte distribution width (RBC) [Ratio] 17.2 % 11.6-14.6 [facility] Immature granulocytes/100 WBC (Bld) 0.200 % 0.0-0.9 [facility] Comment on above: IG% - Immature Granu locytes (promyelocytes, myelocytes and metamyelocytes) > 1% indicates that a LEFT SHIFT is Present. MCH (RBC) [Entitic mass] 26.5 pg 27.0-32.0 [facility] Nucleated RBC/100 WBC (Bld) [Ratio] 0 % 0-5 [facility] MCHC Auto (RBC) [Mass/Vol]Or dered By: Dr. Houston on 07-07-2022 MCHC (RBC) [Mass/Vol] 32.8 g/dL 32-36 [facility] No Panel InformationOrdered By: Dr. Houston on 07-07-2022 Estimated Creatinine Clearance Calc 48.32 ml/min [facility] Estimated GFR (MDRD) Amer 63 mL/min >60 [facility] Comment on above: GFR Calc Estimated GFR (MDRD) Non-Af Amer 52 mL/min >60 [facility] Comment on above: Non- GFR Calc Troponin I High Sensitivity 29 pg/mL 3.0-54.0 [facility] Comment on above: Please Note: New Sary t Units and Gender Specific Reference Ranges. For more information see Policy Stat Procedure [place] High Sensitivity Troponin (TNIH) and attachments. Platelets bldOrdered By: Dr. Houston on 07-07-2022 Platelets (Bld) [#/Vol] 282 10*3/uL 150-450 [facility] Serum or plasma albumin angela urement (mass/volume)Ordered By: Dr. Houston on 07-07-2022 Albumin [Mass/Vol] 3.3 g/dL 3.2-5.0 [facility] Serum or plasma albumin/glob ulin mass ratioOrdered By: Dr. Houston on 07-07-2022 Albumin/Globulin [Mass ratio] 0.9 {ratio} 0.9-2.4 [facility] Serum or plasma calcium angela urement (mass/volume)Ordered By: Dr. Houston on 07-07-2022 Calcium [Mass/Vol] 9.5 mg/dL 8.5-10.1 [facility] Serum or plasma creatinine m easurement (mass/volume)Ordered By: Dr. Houston on 07-07-2022 Creatinine [Mass/Vol] 1.13 mg/dL 0.55-1.02 [facility] Comment on above: The validity of the calculated GFR & GFRAA in patients over 70 years has not been determined. Clinical correlation is essential. Serum or plasma urea nitroge n measurement (mass/volume)Ordered By: Dr. Houston on 07-07-2022 Urea nitrogen [Mass/Vol] 18 mg/dL 7-18 [facility] Thin prep Papanicolaou smear with manual screeningOrdered By: Dr. Houston on 07-07-2022 Thin prep Papanicolaou smear with manual screening 17 U/L 15-37 [facility] Thin prep Papanicolaou smear with manual screening 9 5-15 [facility] Basic metabolic 2000 panelon 01-01-2022 Anion gap [Moles/Vol] 10 mmol/L Met [facility] Calcium [Mass/Vol] 8.9 mg/dL 8.4 - [...] Inclusion of Race in Diagnosing Kidney Disease. [place] Journal of Kidney Diseases 202;79(2):268-88.e1. 2. N Engl J Med 1 Vol. 385 Issue 19 Pages [phone] Glucose [Mass/Vol] 98 mg/dL 80 - 116 [...] 12-31-2021 Anion gap [Moles/Vol] 12 mmol/L Met [facility] Calcium [Mass/Vol] 9.3 mg/dL 8.4 - [...] Inclusion of Race in Diagnosing Kidney Disease. [place] Journal of Kidney Diseases 202;79(2):268-88.e1. 2. N Engl J Med 2020 Vol. 385 Issue 19 Pages [phone] Glucose [Mass/Vol] 115 mg/dL 80 - 116 [...] 12-30-2021 Anion gap [Moles/Vol] 14 mmol/L Met [facility] Calcium [Mass/Vol] 9.5 mg/dL 8.4 - [...] Inclusion of Race in Diagnosing Kidney Disease. [place] Journal of Kidney Diseases 2021;79(2):268-88.e1. 2. N Engl J Med 2020 Vol. 385 Issue 19 Pages [phone] Glucose [Mass/Vol] 100 mg/dL 80 - 116 [...] YUMIKO LUGO ([id number]) on 12/30/2021 7:42:32 PM [facility] P wave [facility] by EKG 95 BPM [facility] P wave axis 58 degrees [facility] P-R Interval 142 ms [facility] Q-T interval 372 ms [facility] Q-T interval corrected 467 ms [facility] QRS axis -2 degrees [facility] QRS duration 70 ms [facility] T wave axis 56 degrees [facility] MAGNESIUMon 12-30-2021 Interpretation and review of [...] Interpretation and review of laboratory results [facility] IRON AND TIBCon 12-29-2021 Interpretation [...] Anion gap [Moles/Vol] 17 mmol/L [facility] Calcium [Mass/Vol] 9.3 mg/dL 8.4 - [...] Inclusion of Race in Diagnosing Kidney Disease. [place] Journal of Kidney Diseases 2021;79(2):268-88.e1. 2. N Engl J Med 2020 Vol. 385 Issue 19 Pages 3036-7829 Glucose [Mass/Vol] 112 mg/dL 80 - 116 [...] SST TUBE, BLOODon 12-28-2021 Extra Tube Done [facility] HEPATIC FUNCTION PANELon Albumin [Mass/Vol] 3.3 [...] [Mass/Vol] 5.7 g/dL 5.7 - 8.1 g/dL [facility] LIPASEon 12-28-2021 Interpretation and review of laboratory results Normal [facility] Lipase [Catalytic activity/Vol] 23 U/L <128 IU/L [facility] POTASSIUM, WHOLE BLOODOrdere d By: Rzaia De Anda on 12-28-2021 Interpretation and review of laboratory results Normal [facility] Potassium [Moles/Vol] 3.7 mmol/L 3.3 - 5.3 mmol/L [facility] TROPONIN Ion 12-28-2021 Interpretation and review of laboratory results Normal [facility] Troponin I.cardiac DL <= 0.01 ng/mL [Mass/Vol] ng/mL <0.120 ng/mL [facility] Comment on above: Range <=0.04 ng/mL: Negative [...] injury. Interpretation: Clinical and laboratory correlation recommended. [facility] DRUGUon 07-05-2019 Drug Screen Urine Positive [facility]) Comment on above: Performed By: #### D RUGU #### [address] [address] Drug Screen Urine Interp Positive [facility]) Comment on above: Performed By: #### D RUGU #### [address] [address] U pH Drug Scrn 6.0 Normal 5.0-8.0 [facility] ([place]) Comment on above: Performed By: #### D RUGU #### [address] [address] U Specific [place] Drg Scrn 1.030 Normal 1.005-1.03 0 [facility] ([place]) Comment on above: Performed By: #### D RUGU #### [address] [address] Urine Drugs screened: See Below Normal [facility] ([place]) Comment on above: Result Comment: This drug [...] ONLY. Performed By: #### D MARTY #### [place] [address] .Auto Diffon 06-13-2019 Ammonia (P) [Mass/Vol] 0.30 10 3/mcL Normal 0.15-1.00 [facility] ([place]) Comment on above: Performed By: #### WILL CARRINGTON ANEU #### [address] [address] Basophils (Bld) [#/Vol] 0.00 10 3/mcL Normal 0.00-0.19 [facility] ([place]) Comment on above: Performed By: ###WILL NO ANEU #### [address] [address] Basophils/100 WBC (Bld) 0.8 % Normal 0.0-2.5 [facility] ([place]) Comment on above: Performed By: #### WILL CARRINGTON ANEU #### [address] [address] Eosinophils (Bld) [#/Vol] 0.10 10 3/mcL Normal 0.00-0.40 [facility] ([place]) Comment on above: Performed By: #### WILL CARRINGTON ANEU #### [address] [address] Eosinophils/100 WBC (Bld) 3.4 % Normal 0.0-7.0 [facility] ([place]) Comment on above: Performed By: #### WILL CARRINGTON ANEU #### [address] [address] Lymphocytes (Bld) [#/Vol] 1.60 10 3/mcL Normal 0.77-3.85 [facility] ([place]) Comment on above: Performed By: #### WILL CARRINGTON, ANEU #### [address] [address] Lymphocytes/100 WBC (Bld) 37.7 % Normal 10.0-50.0 [facility] ([place]) Comment on above: Performed By: #### C WILL MCLAUGHLIN, ANEU #### [address] [address] Monocytes/100 WBC (Bld) 8.0 % Normal 1.7-13.0 [facility] ([place]) Comment on above: Performed By: #### WILL CARRINGTON, ANEU #### [address] [address] Neutrophils/100 WBC (Bld) 50.1 % Normal 37.0-80.0 [facility] ([place]) Comment on above: Performed By: #### C WILL MCLAUGHLIN, ANEU #### [address] [address] .NEUABSon 06-13-2019 Neutrophils (Bld) [#/Vol] 2.10 10 3/mcL Low 2.85-6.16 [facility] ([place]) Comment on above: Performed By: #### C WILL MCLAUGHLIN, ANEU #### [address] [address] CBCon 06-13-2019 Erythrocyte distribution width (RBC) [Ratio] 20.2 % High 11.5-14.5 [facility] ([place]) Comment on above: Performed By: #### WILL CARRINGTON, ANEU #### [address] [address] Hematocrit (Bld) [Volume fraction] 33.7 % Low 37.0-47.0 [facility] ([place]) Comment on above: Performed By: #### WILL CARRINGTON, ANEU #### [place] [id number] Hemoglobin (Bld) [Mass/Vol] 10.7 G/dL Low 12.0-16.0 [facility] ([place]) Comment on above: Performed By: #### C WILL MCLAUGHLIN, ANEU #### [address] [address] MCH (RBC) [Entitic mass] 24.6 pg Low 27.0-31.2 [facility] ([place]) Comment on above: Performed By: #### C WILL MCLAUGHLIN, ANEU #### [address] [address] MCHC (RBC) [Mass/Vol] 31.8 G/dL Low 33.0-37.0 [facility] ([place]) Comment on above: Performed By: #### WILL CARRINGTON, ANEU #### [address] [address] MCV (RBC) [Entitic vol] 77.3 fL Low 80.0-94.0 [facility] ([place]) Comment on above: Performed By: #### WILL CARRINGTON, ANEU #### [address] [address] Platelet mean volume (Bld) [Entitic vol] 7.1 fL Low 7.4-10.4 [facility] ([place]) Comment on above: Performed By: #### WILL CARRINGTON, ANEU #### [address] [address] Platelets (Bld) [#/Vol] 316 10 3/mcL Normal 130-400 [facility] ([place]) Comment on above: Performed By: #### C WILL MCLAUGHLIN, ANEU #### [address] [address] RBC (Bld) [#/Vol] 4.35 10 6/mcL Normal 4.20-5.40 [facility] ([place]) Comment on above: Performed By: #### WILL CARRINGTON, ANEU #### [address] [address] WBC (Bld) [#/Vol] 4.20 10 3/mcL Low 4.60-10.80 [facility] ([place]) Comment on above: Performed By: #### C WILL MCLAUGHLIN ANEU #### [place] [address] [address] Vital Signs Date Time Vital Sign Value Performing Clinician Facility 11-16-2023 18:19-0400 Body temperature 97.8 [degF] [facility] 11-16-2023 18:19-0400 Diastolic blood pressure 75 mm[Hg] [facility] 11-16-2023 18:19-0400 Heart rate 81 /min [facility] 11-16-2023 18:19-0400 Respiratory rate 16 /min [facility] 11-16-2023 18:19-0400 SaO2% (BldA) [Mass fraction] 96 % [facility] 11-16-2023 18:19-0400 Systolic blood pressure 117 mm[Hg] [facility] 11-16-2023 13:37-0400 Body height 167.64 cm [facility] 11-16-2023 13:37-0400 Body mass index (BMI) [Ratio] 24.2 kg/m2 [facility] 11-16-2023 13:37-0400 Body weight 68.03 kg [facility] 03-23-2023 21:05-0400 Diastolic blood pressure 87 mm[Hg] No Primary Care Physician [facility] 03-23-2023 21:05-0400 Heart rate 70 /min No Primary Care Physician [facility] 03-23-2023 21:05-0400 Respiratory rate 16 /min No Primary Care Physician [facility] 03-23-2023 21:05-0400 SaO2% (BldA) [Mass fraction] 100 % No Primary Care Physician [facility] 03-23-2023 21:05-0400 Systolic blood pressure 133 mm[Hg] No Primary Care Physician [facility] 03-23-2023 18:25-0400 Body temperature 98.1 [degF] No Primary Care Physician [facility] 03-23-2023 16:26-0400 Body height 167.64 cm No [facility] Care Phys[facility] 03-23-2023 16:26-0400 Body mass index (BMI) [Ratio] 26 kg/m2 No Primary Care Physician [facility] 03-23-2023 16:26-0400 Body weight 73.2 kg No Primary Care Physician [facility] 03-09-2023 09:07-0400 Body height 167.6 cm Hilton Johnson MD Work Phone: [facility] 03-09-2023 09:07-0400 Body mass index (BMI) [Ratio] 26.47 kg/m2 Hilton Johnson MD Work Phone: [facility] 03-09-2023 09:07-0400 Body temperature 97.9 [degF] Hilton Johnson MD Work Phone: [facility] 03-09-2023 09:07-0400 Body weight 74.39 kg Hilton Johnson MD Work Phone: [facility] 03-09-2023 09:07-0400 Diastolic blood pressure 66 mm[Hg] Hilton Johnson MD Work Phone: [facility] 03-09-2023 09:07-0400 Heart rate 76 /min Hilton Johnson MD Work Phone: [facility] 03-09-2023 09:07-0400 Systolic blood pressure 116 mm[Hg] Hilton Johnson MD Work Phone: [facility] 02-16-2023 09:23-0400 Body temperature 97.9 [degF] No [facility] Phys[facility] 02-16-2023 09:23-0400 Diastolic blood pressure 73 mm[Hg] No [facility] Care Phys[facility] 02-16-2023 09:23-0400 Heart rate 73 /min No [facility] Phys[facility] 02-16-2023 09:23-0400 Respiratory rate 16 /min No [facility] Phys[facility] 02-16-2023 09:23-0400 SaO2% (BldA) [Mass fraction] 100 % No [facility] Care Phys[facility] 02-16-2023 09:23-0400 Systolic blood pressure 119 mm[Hg] No Primary Care Physician [facility] 02-16-2023 03:22-0400 Body mass index (BMI) [Ratio] 27.7 kg/m2 No [facility] Care Phys[facility] 02-16-2023 03:22-0400 Body weight 77.9 kg No [facility] Care Phys[facility] 02-14-2023 10:27-0400 Body height 167.64 cm No [facility] Phys[facility] 02-13-2023 20:55-0400 Body temperature 96.8 [degF] [facility] 02-13-2023 20:55-0400 Diastolic blood pressure 80 mm[Hg] [facility] 02-13-2023 20:55-0400 Heart rate 82 /min [facility] 02-13-2023 20:55-0400 Respiratory rate 18 /min [facility] 02-13-2023 20:55-0400 SaO2% (BldA) [Mass fraction] 98 % [facility] 02-13-2023 20:55-0400 Systolic blood pressure 122 mm[Hg] [facility] 02-13-2023 19:21-0400 Body height 167.64 cm [facility] 02-13-2023 19:21-0400 Body mass index (BMI) [Ratio] 27.6 kg/m2 [facility] 02-13-2023 19:21-0400 Body weight 77.6 kg [facility] 10-22-2022 13:13-0400 Diastolic blood pressure 84 mm[Hg] [facility] 10-22-2022 13:13-0400 Heart rate 88 /min [facility] 10-22-2022 13:13-0400 Respiratory rate 16 /min [facility] 10-22-2022 13:13-0400 SaO2% (BldA) [Mass fraction] 100 % [facility] 10-22-2022 13:13-0400 Systolic blood pressure 126 mm[Hg] [facility] 10-22-2022 11:50-0400 Body mass index (BMI) [Ratio] 27.4 kg/m2 [facility] 10-22-2022 11:50-0400 Body weight 77.1 kg [facility] 10-22-2022 10:07-0400 Body height 167.64 cm [facility] 10-22-2022 10:07-0400 Body temperature 97.9 [degF] [facility] 10-09-2022 17:22-0500 Body height 167.64 cm [facility] 10-09-2022 17:22-0500 Body mass index (BMI) [Ratio] 28.2 kg/m2 [facility] 10-09-2022 17:22-0500 Body temperature 98.6 [degF] [facility] 10-09-2022 17:22-0500 Body weight 79.37 kg [facility] 10-09-2022 17:22-0500 Diastolic blood pressure 79 mm[Hg] [facility] 10-09-2022 17:22-0500 Heart rate 110 /min [facility] 10-09-2022 17:22-0500 Respiratory rate 18 /min [facility] 10-09-2022 17:22-0500 SaO2% (BldA) [Mass fraction] 99 % [facility] 10-09-2022 17:22-0500 Systolic blood pressure 110 mm[Hg] [facility] 07-07-2022 15:21-0500 Body temperature 98 [degF] [facility] 07-07-2022 15:21-0500 Diastolic blood pressure 87 mm[Hg] [facility] 07-07-2022 15:21-0500 Heart rate 85 /min [facility] 07-07-2022 15:21-0500 Respiratory rate 16 /min [facility] 07-07-2022 15:21-0500 SaO2% (BldA) [Mass fraction] 100 % [facility] 07-07-2022 15:21-0500 Systolic blood pressure 114 mm[Hg] [facility] 07-07-2022 12:17-0500 Body height 167.64 cm [facility] Work Phone: 07-07-2022 12:17-0500 Body mass index (BMI) [Ratio] 28.4 kg/m2 [facility] 07-07-2022 12:17-0500 Body weight 79.83 kg [facility] 01-01-2022 06:00-0400 Body temperature 97.59 [degF] Wayne Benton MD Work Phone: [employer] 01-01-2022 06:00-0400 Diastolic blood pressure 84 mm[Hg] Wayne Benton MD Work Phone: [employer] 01-01-2022 06:00-0400 Heart rate 76 /min Wayne Benton MD Work Phone: [employer] 01-01-2022 06:00-0400 Respiratory rate 18 /min Wayne Benton MD Work Phone: [employer] 01-01-2022 06:00-0400 SaO2% (BldA) [Mass fraction] 100 % Wayne Benton MD Work Phone: [employer] 01-01-2022 06:00-0400 Systolic blood pressure 137 mm[Hg] Wayne Benton MD Work Phone: [employer] 12-30-2021 20:07-0400 Heart rate 95 /min Wayne Benton MD Work Phone: [employer] 12-29-2021 17:59-0400 Body height 167.6 cm Wayne Benton MD Work Phone: [employer] 12-29-2021 17:59-0400 Body mass index (BMI) [Ratio] 31.05 kg/m2 Wayne Benton MD Work Phone: [employer] 12-29-2021 17:59-0400 Body weight 87.27 kg Wayne Benton MD Work Phone: [employer] Encounters Encounter Date Encounter Type Care Provider Facility Start: 06-13-2025 ambulatory No Primary Car e Physician Facility:[facility] Start: 05-31-2025 End: 05-31-2025 ambulatory No Primary Care Physician Facility:[facility] Start: 04-26-2025 ambulatory No Primary Car e Physician Facility:[facility] Start: 04-26-2025 End: 04-26-2025 ambulatory No Primary Care Phys[facility] Start: 03-27-2025 End: 03-27-2025 ambulatory Stoney Chi Tristan Facility:[facility] Start: 03-05-2025 End: 03-05-2025 ambulatory No Primary Care Physician Facility:[facility] Start: 03-05-2025 End: 03-05-2025 ambulatory Azalea Peggy GENERAL 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 [facility] Start: 01-26-2025 ambulatory Virginie Aguillon [facility] Start: 01-26-2025 End: 01-27-2025 Evaluation and management of inpatient No Primary Care Physician [facility] Start: 01-25-2025 ambulatory Virginie Aguillon Facility:[facility] Start: 12-15-2024 End: 12-15-2024 ambulatory Stoney Chi Tristan Facility:[facility] Start: 10-10-2024 End: 10-10-2024 ambulatory Stoney Chi Tristan Facility:[facility] Start: 08-30-2024 End: 08-30-2024 ambulatory Stoney Chi Tristan Facility:[facility] Start: 08-26-2024 End: 08-26-2024 Emergency department patient visit Stoney Chi Tristan [facility] Start: 08-22-2024 End: 08-22-2024 ambulatory Stoney Chi Tristan Facility:[facility] Start: 07-20-2024 End: 07-20-2024 ambulatory Stoney Chi Tristan [facility] Start: 07-19-2024 End: 07-19-2024 ambulatory Stoney Chi Tristan [facility] Start: 06-08-2024 End: 06-08-2024 ambulatory BUNNY YO MD Facility:[facility] Start: 06-08-2024 End: 06-08-2024 Patient encounter procedure BUNNY YO MD [facility] Start: 02-08-2024 End: 02-18-2024 Refill Hilton Johnson MD Work Phone: [facility] Comment on above: Refill Refill; Reference 99 Start: 01-21-2024 End: 01-21-2024 Telephone encounter To Be Assigned [facility] Physicia n Referral Service Comment on above: Update Start: 01-05-2024 End: 01-06-2024 Refill Hilton Johnson MD Work Phone: [facility] Comment on above: Refill Start: 12-21-2023 End: 12-23-2023 Refill Hilton Johnson MD Work Phone: [facility] Comment on above: Refill Start: 12-01-2023 Emergency department patient visit JEANA QUINTANA Facility:[facility] Start: 11-24-2023 Refill Hilton Johnson MD Work Phone: [facility] Comment on above: Refill Start: 11-16-2023 End: 11-16-2023 Emergency department [facility] Work Phone: Start: 11-12-2023 Letter encounter Patrizia [facility] Start: 10-25-2023 Refill Hilton Johnson MD Other Phone: [facility] Comment on above: Refill Start: 05-28-2023 Telephone encounter Hilton smiley MD Work Phone: [facility] Comment on above: Medical Record Revie w Start: 03-23-2023 End: 03-23-2023 Emergency department patient visit No Primary Care Physician [facility] Work Phone: Start: 03-15-2023 Telephone encounter Hilton smiley MD Work Phone: [facility] Comment on above: Med Change Request Start: 03-10-2023 Telephone encounter Hilton smiley MD Work Phone: [facility] Start: 03-09-2023 End: 03-09-2023 Initial preventive medicine new patient 40-64yrs Hilton Johnson MD Work Phone: [facility] Comment on above: Routine adult health maintenance (Primary Dx); Lipid screening; 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-en-Y gastric bypass; Postoperative malabsorption; Cervical spondylosis without myelopathy; Primary osteoarthritis of right knee; Anastomotic ulcer S/P gastric bypass; Calculus of gallbladder without cholecystitis without obstruction; Generalized abdominal pain; Dizziness; Prediabetes; Body mass index (BMI) 26.0-26.9, adult Start: 03-09-2023 End: 03-09-2023 Patient encounter status Hilton Johnson MD Work Phone: [facility] Start: 03-09-2023 End: 03-09-2023 ambulatory UNKNOWN PROVIDER Facility:[facility] Start: 03-02-2023 Emergency department patient visit Rock Sharpe MD Work Phone: [facility] Emergency Medicine Comment on above: Refill Start: 03-01-2023 Registered Referred No Primary Care Physician [facility] Work Phone: Start: 02-24-2023 Telephone encounter Rock anthony MD Work Phone: [facility] Emergency Triage, Treat and Transport Comment on above: Requesting Medicatio ns Start: 02-16-2023 Non-patient / Non-visit No [facility] Physician [facility] Work Phone: Start: 02-15-2023 Non-patient / Non-visit No [facility] Physician [facility] Work Phone: Start: 02-15-2023 Non-patient / Non-visit No [facility] Start: 02-14-2023 Non-patient / Non-visit No [facility] Work Phone: Start: 02-13-2023 End: 02-16-2023 Evaluation and management of inpatient [facility] Work Phone: Start: 02-13-2023 End: 02-16-2023 observation encounter No Primary Care Physician [facility] Work Phone: Start: 10-22-2022 End: 10-22-2022 Emergency department patient visit [facility] Start: 10-09-2022 End: 10-09-2022 Emergency department patient visit [facility] Start: 07-07-2022 End: 07-07-2022 Emergency department patient visit [facility] Start: 02-26-2022 Telephone encounter To Be Assigned M [facility] Physician Referral Service Comment on above: Left Message To Call Back Start: 12-28-2021 End: 01-01-2022 Evaluation and management of inpatient Wayne Benton MD Work Phone: [phone] Comment on above: Gastrointestinal hem orrhage, unspecified gastrointestinal hemorrhage type (Primary Dx); Syncope and collapse; Peptic ulcer; 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-en-Y gastric bypass; Anastomotic ulcer; Chronic iron deficiency anemia Start: 03-05-2021 Patient encounter status [facility] Procedures Date Procedure Procedure Detail Performing [...] Work Phone: Start: 12-28-2021 Assay of ferritin Viivane Goetz MD Work Phone: Start: 12-28-2021 Potassium [...] Start: 05-02-2024 Influenza vaccination Influenza Vaccine (#1) [facility] Start: 03-23-2024 Creatinine measurement Basic Metabolic Panel [facility] Start: 03-09-2024 Creatinine measurement Basic Metabolic Panel [facility] Start: 03-09-2024 Hemoglobin A1c measurement Hemoglobin A1C [facility] Start: 02-24-2024 End: 02-24-2024 Patient encounter procedure 02/24/2024 1:00 PM EDT Office Visit [place] [id number] Randall Hodgson MD [address] [place] [address] [facility] Start: 01-31-2024 Creatinine measurement Basic Metabolic Panel [facility] Start: 11-16-2023 [facility] Start: 07-05-2023 End: 07-05-2023 Patient encounter procedure 07/05/2023 11:00 AM EST Office Visit [place] [id number] Gabriel Ugarte MD [address] [place], [place] [id number] [facility] Start: 05-02-2023 Influenza vaccination Influenza Vaccine (#1) [facility] Start: 05-02-2023 End: 07-10-2023 Lipid 1996 panel - Serum or Plasma FULL LIPID PROFILE Lab Routine Hyperlipidemia, unspecified hyperlipidemia type Expected: 05/02/2023, Expires: 07/10/2023 [facility] Work Phone: Comment on above: Expected: 05/02/2023, Expires: Start: 04-02-2023 COVID-19 Vaccine () COVID-19 Vaccine () [facility] Start: 04-02-2023 Influenza vaccination Influenza Vaccine (#1) [facility] Start: 03-09-2023 End: 03-09-2023 Patient encounter procedure 03/09/2023 9:20 [place] [address] Hilton Johnson MD [address] [place] [address] [facility] Start: 02-16-2023 Patient discharge [facility] Start: 02-14-2023 End: 02-15-2023 [facility] Start: 02-13-2023 Following clinical pathway protocol [facility] Start: 02-13-2023 Assessment of risk of venous thromboembolism [facility] Start: 02-13-2023 Cardiac monitoring [facility] Start: 02-13-2023 Fall prevention [facility] Start: 02-13-2023 Inhalation therapy procedure [facility] Start: 02-13-2023 Insertion of catheter into peripheral vein [facility] Start: 02-13-2023 Introduction of urinary catheter [facility] Start: 02-13-2023 Measuring intake and output [facility] Start: 02-13-2023 Oxygen therapy [facility] Start: 02-13-2023 Providing care according to standard [facility] Start: 02-13-2023 Provision of activity privileges [facility] Start: 02-13-2023 Referral to service [facility] Start: 02-13-2023 Tobacco use cessation education [facility] Start: 02-13-2023 End: 02-13-2023 [facility] Start: 02-13-2023 Verification routine [facility] Start: 02-13-2023 Admission procedure [facility] Start: 02-13-2023 [facility] Start: 02-13-2023 Patient referral to dietitian [facility] Start: 01-01-2023 Basic metabolic 2000 panel - Serum or Plasma [facility] Start: 09-16-2022 Shingles (RZV) Vaccine (2 of 2) Shingles (RZV) Vaccine (2 of 2) [facility] Start: 07-07-2022 [facility] Start: 06-22-2022 Hemoglobin A1c [facility] Start: 05-02-2022 Influenza vaccination Influenza Vaccine (#1) [facility] Start: 02-19-2022 End: 02-19-2022 Patient encounter procedure 02/19/2022 Office Visit Gastroenterology Mary Ellen Miller MD [address] [facility] [place] [address] [facility] Gastroenterology Start: 01-14-2022 End: 01-14-2022 Patient encounter procedure 01/14/2022 Office Visit Internal Medicine Macy Smith DO [address] [place] [address] [facility] [employer] Start: 04-05-2021 COVID-19 Vaccine (3 - Booster for Pfizer series) COVID-19 Vaccine (3 - Booster for Pfizer series) [facility] Start: 12-29-2020 COVID-19 Vaccine (3 - Booster for Pfizer series) COVID-19 Vaccine (3 - Booster for Pfizer series) [facility] Start: 12-29-2020 COVID-19 Vaccine (3 - [...] (2 of 2 - Risk 2-dose series) [facility] Start: 11-02-2018 Cholesterol [Mass/volume] in Serum or Plasma Cholesterol [facility] Start: 07-17-2016 Screening for malignant neoplasm [...] Pneumococcal vaccination Pneumococcal Vaccine(s) (1 - PCV) [facility] 25 hydroxy includes fractions if performed VITAMIN D, 25-HYDROXY Lab Routine Postoperative malabsorption Ordered: 03/09/2023 [facility] Comment on above: Ordered: 03/09/2023 Amphetamine [Mass/volume] in Urine [facility] Assay of ferritin FERRITIN Lab R outine Postoperative malabsorption Ordered: 03/09/2023 [facility] Work Phone: Comment on above: Ordered: 03/09/2023 Assay of magnesium MAGNESIUM Lab STAT Daily until discontinued starting 12/30/2021, 3 completed [facility] Comment on above: Daily until discontinued starting 2021, 3 completed Basic metabolic 2000 panel - Serum or Plasma BASIC METABOLIC PANEL Lab STAT Daily until discontinued starting 12/30/2021, 3 completed [employer] Work Phone: Comment on above: Daily until discontinued starting 2021, 3 completed Basic metabolic 2000 panel - Serum or Plasma BASIC METABOLIC PANEL Lab Routine Postoperative malabsorption Ordered: 03/09/2023 [facility] Comment on above: Ordered: 03/09/2023 Benzodiazepine measurement, urine [facility] Bilirubin measuremen t, urine [facility] Blood count complete auto&auto difrntl wbc CBC WITH DIFFERENTIAL Lab Only Routine Postoperative malabsorption 03/09/2023 10:26 AM EDT [facility] Cardiac event recording [facility] CBC W Auto Different ial panel - Blood COMPLETE BLOOD COUNT W/DIFF Lab Routine Postoperative malabsorption 03/09/2023 10:26 AM EDT [facility] Cocaine measurement, urine [facility] Cyanocobalamin vitam in b-12 VITAMIN B12 (CYANOCOBALAMIN) Lab Routine Postoperative malabsorption Ordered: 03/09/2023 [facility] Comment on above: Ordered: 03/09/2023 DARK [...] (BMI) 26.0-26.9, adult 03/09/2023 2:14 PM EDT [facility] Diabetes tracking panel HEMOGLOB IN A1C Lab Routine Prediabetes 03/09/2023 10:26 AM EDT [facility] Ethanol [Mass/volume ] in Serum or Plasma [facility] End: 12-28-2021 EXTRA TUBE EXTRA TUBE Lab Only Routine One time for 1 Occurrences starting 12/28/2021 until 12/28/2021 [employer] Work Phone: Comment on above: One [...] (BMI) 26.0-26.9, adult 03/09/2023 2:14 PM EDT [facility] Hemoglobin [Presence ] in Urine [facility] Lipid 1996 panel - Serum or Plasma FULL LIPID PROFILE Lab Routine Lipid screening Ordered: 03/09/2023 [facility] Comment on above: Ordered: 03/09/2023 Measurement of 3,4-methylenedioxymetha mphetamine in urine [facility] Measurement of keton es in urine using dipstick [facility] Methadone measuremen t, urine [facility] Microscopic urinalysis [facility] Patient Education [facility] Work Phone: Patient referral [facility] Work Phone: pH of Urine [facility] pH of Urine [facility] Phencyclidine [Presence] in Urine [facility] Specific gravity of Urine [facility] Urinalysis, blood, qualitative [facility] Urine barbiturate measurement [facility] Urine cannabinoid measurement [facility] Urine dipstick for glucose [facility] Urine dipstick for leukocyte esterase [facility] Urine dipstick for nitrite [facility] Urine dipstick for protein [facility] Urine examination [facility] Urine microscopy: epithelial cells [facility] Urine Microscopy: wh ite cells [facility] Urine opiate measurement [facility] Urobilinogen [Presen ce] in Urine [facility] Immunizations Immunization Date Immunization Notes [facility] Hemoglobin A1C Hilton Cartwright i, MD Work Phone: [facility] 07-22-2022 zoster vaccine recombinant Rock Sharpe MD Work Phone: [facility] 06-22-2021 Hemoglobin A1C Wayne Benton MD Work Phone: [facility] 11-03-2020 Pfizer SARS-COV-2 (COVID-19) vaccine, age 12+ yrs, mRNA, spike protein, LNP, preservative free, 30 mcg/0.3mL dose (FKL=611) Wayne Benton MD Work Phone: [facility] 10-12-2020 Pfizer SARS-COV-2 (COVID-19) vaccine, age 12+ yrs, mRNA, spike protein, LNP, preservative free, 30 mcg/0.3mL dose (UHL=550) Wayne Benton MD Work Phone: [facility] 05-16-2019 hepatitis A vaccine, adult dosage Wayne Benton MD Work Phone: [facility] 09-28-2017 tetanus toxoid, reduced diphtheria toxoid, and acellular pertussis vaccine, adsorbed Wayne Benton MD Work Phone: [facility] 07-19-2015 tuberculin skin test ; purified protein derivative solution, intradermal Wayne Benton MD Work Phone: [facility] 04-19-2015 Hemoglobin A1C Hilton Cartwright i, MD Work Phone: [facility] 09-14-2013 influenza, seasonal, injectable Wayne Benton MD Work Phone: [facility] 09-14-2013 influenza virus vaccine, unspecified formulation To Assigned [facility] 11-12-2011 tetanus toxoid, reduced diphtheria toxoid, and acellular pertussis vaccine, adsorbed Wayne Benton MD Work Phone: [facility] 01-24-2003 tuberculin skin test ; purified protein derivative solution, intradermal Hilton Johnson MD Work Phone: [facility] Work Phone: 07-11-2002 influenza virus vaccine, unspecified formulation Hilton Johnson MD Work Phone: [facility] Work Phone: Payers Date Payer Category Payer Unknown [id number] 2024 Self-pay [id number] 2021 Medicare [id number] 2021 Private Health Insurance 101 [id number] 2014 Medicaid [id number] 2014 Medicaid [id number] 2014 Unknown [id number] 1995 Worker's Compensation [id number] 1960 Unknown [id number] 1960 Unknown [id number] [id number] Medicare [id number] Medicare [id number] Medicare MEDICARE PART A B [id number] Private Health Insurance [facility] [id number] Unknown [id number] Unknown [id number] 2.840.1.650626.3.579.2.462 Unknown [id number] 2.840.1.433128.3.579.2.462 Unknown [id number] 2.840.1.366155.3.579.2.462 Unknown [id number] 2.840.1.623981.3.579.2.462 Unknown [id number] 2.840.1.564017.3.579.2.462 Unknown [id number] 2.840.1.143305.3.579.2.462 Unknown [id number] 2.840.1.152853.3.579.2.462 Unknown [id number] 2.840.1.060067.3.579.2.462 Unknown [id number] 2.840.1.335107.3.579.2.462 Unknown [id number] 2.840.1.667603.3.579.2.462 Unknown [id number] 2.16840.1.671083.3.579.2.462 Unknown [id number] 2.16.840.1.863209.3.579.2.462 Unknown [id number] 2.16.840.1.638063.3.579.2.462 Unknown [id number] 2.16840.1.032593.3.579.2.462 Unknown [id number] 2.16840.1.443375.3.579.2.462 Unknown [id number] 2.16840.1.842414.3.579.2.462 Unknown [id number] 2.840.1.199373.3.579.2.462 Social History Date Type Detail Facility Start: 11-24-2013 Tobacco smoking stat [facility] Occasional tobacco smoker [facility] History of [...] smoking status NHIS Unknown if ever smoked [facility] Start: 1960 Sex Assigned At Female [facility] Start: 03-09-2023 Gender identity Not on file [facility] Start: 03-09-2023 Tobacco smoking stat [facility] Ex-smoker [facility] History of tobacco use Current smoker [facility] Tobacco smoking status Smokes to bacco daily (finding) [facility] Goals Date Patient Goal Desired Activity /State Personal health goal Functional Status Date Assessment Result Facility 02-16-2023 Functional status [place] [facility] Work Phone: Mental Status Date Assessment Result Facility 11-16-2023 Cognitive function Voice/Name [facility] Work Phone: 02-16-2023 Cognitive function Voice/Name [facility] Work Phone: 02-13-2023 Cognitive function Level Of Cons ciousness Awake;Alert;Appropriate;Follow s Commands [facility] Work Phone: Clinical Notes 12-28-2021 to 01-27-2025 Telephone Encounter - Orin Garcia - 02/18/2024 10:08 AM EDTTelephone Encounter - Orin Garcia - 02/18/2024 10:08 AM EDTTelephone Encounter - Yanelis Guerrero RN - 02/10/2024 3:37 PM EDT Note Date & Type Note Facility 01-27-2025 Note [facility] Medical Records Department [address] [place] [address] Discharge Summary 01/27/25 1151 MR#: [id number] Acct: [id number] Name: MORENA PATTON Rep #: [id number] : 1960 64 From: Lam sEpinal MD PCP: Care Physician,No Primary Status:ADM IN Location: [place] [address] Providers Date of Admission: 01/26/25 Date of [...] Carotid Bruits Chest (more content not included)... [facility] 11-21-2024 Note HNO ID: [id number] Author: JESSENIA EVANS RN Service: ? 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 Author Type: Software Quality Specialist Type: Progress Notes Filed: 09/04/2024 11:09 Note [...] Mota MA September 04, 2024 11:02 AM [facility] 09-04-2024 Note Patient Outreach (NE TNAV) MORENA PATTON ([id number]) 1960 F Date Time Provider Department 09/04/24 [...] Encounter Status:Closed by LISA MOTA on 09/04/24 [facility] 06-09-2024 Note HNO ID: [id number] Author: RUTH RAYMUNDO MA Service: ? Author Type: Software Quality Specialist Type: Progress Notes Filed: 06/09/2024 15:33 Note Text: POPULATION HEALTH NAVIGATION OUTREACH Action/FYI Patient returning my call Medication Adherence Discuss/Due for: Questionable Attribution Routed to moreno team to confirm outside care Outcome: 1st attempt - Spoke to patient Patient hung up the phone prior to discussing Attribution /PCP - called patient back, left a message informing Navigator was not a process engineering manager Reason for Outreach Med Adherence Patient Contacted: Unable or unnecessary to reach patient: Left message Navigation Signature: Ruth Raymundo MA June 09, 2024 3:30 PM [facility] 06-09-2024 Note HNO ID: [id number] Author: RUTH RAYMUNDO MA Service: ? Author Type: Software Quality Specialist Type: Progress Notes Filed: 06/09/2024 14:59 Note Text: POPULATION HEALTH NAVIGATION OUTREACH Action/FYI Medication Adherence Discuss/Due for: Questionable Attribution Routed to moreno team to confirm outside care Outcome: 1st attempt - Left Message 2nd attempt - No MyChart Reason for Outreach Med Adherence Patient Contacted: Unable or unnecessary to reach patient: Left message Navigation Signature: Ruth Raymundo MA June 09, 2024 2:41 PM [facility] 06-09-2024 Note HNO ID: [id number] Author: ?, ?, ? Service: ? Author Type: ? Type: Progress Notes Filed: 06/09/2024 14:59 Note Text: Morena Patton is identified through a medication adherence outreach initiative based on pharmacy claims data from [employer] (insurer) for Statin medication(s). Patient is reviewed [...] team to confirm outside care Talia Fine (Nail Galvanizer) [facility] 06-09-2024 Note Patient Outreach ([employer]) ALEKMORENA LAKHANI ([id number]) 1960 F Date Time Provider Department 06/09/24 NO PCP PHPOHE During your visit today, we recorded the following information about you: Babatunde (EasydiagnosisTalia Delacruz 06/09/2024 2:59 PM Signed Morena Patton is identified through a medication adherence outreach initiative based on pharmacy claims data from [employer] (insurer) for Statin medication(s). Patient is reviewed [...] team to confirm outside care Talia Fine (Nail Galvanizer) Ruth Raymundo MA 06/09/2024 2:59 PM Signed [...] a message informing Navigator was not a process engineering manager Reason for Outreach Med Adherence Patient Contacted: [...] Encounter Status:Closed by RUTH RAYMUNDO on 06/09/24 [facility] 06-08-2024 Note ORIGINAL EXAMINATION: MRI OF THE [...] Sign Date: 06/08/2024 9:05:45 AM Ordering Provider: [facility] 06-08-2024 Note ORIGINAL EXAMINATION: MRA OF [...] Sign Date: 06/08/2024 10:07:33 AM Ordering Provider: [facility] 06-08-2024 Note ORIGINAL EXAMINATION: MRA OF THE HEAD WITHOUT CONTRAST 06/08/2024 9:50 am TECHNIQUE: MRA of the head was performed utilizing [id number] imaging with MIP images. No intravenous contrast [...] Sign Date: 06/08/2024 10:06:50 AM Ordering Provider: [facility] 02-28-2024 Note HNO ID: [id number] Author: KERVIN BROWN RN Service: ? Author [...] Patient High CostTotal Patient High Cost {HIGH COST:189227) Quality measure review Payor request for assistance Action Taken: Data submitted to payor Kervin Brown RN February 28, 2024 7:14 AM [facility] 02-28-2024 Note [place] Out[place] [facility] [place] MORENA PATTON ([id number]) 1960 F Date Time Provider Department 02/28/24 KERVIN BROWN [facility] During your visit today, we recorded the following information about you: Kervin rBown RN 03/22/2024 6:33 PM Signed CC [facility] [...] Patient High CostTotal Patient High Cost {HIGH COST:059543) Quality measure review Payor request for assistance [...] Encounter Status:Closed by KERVIN BROWN on 03/22/24 [facility] 02-18-2024 Telephone encounter Note Called patient, 3 identifiers obtained. Patient was unable to talk at this time. Instructed patient to call [employer] at [phone]. Asked patient to reference #[phone] when calling back to our office. Ok to relay message below from Anamaria Guerrero RN. [employer] 02-18-2024 Miscellaneous Notes Called patient, 3 identifiers obtained. Patient was unable to talk at this time. Instructed patient to call [employer] at [phone]. Asked patient to reference #99 when calling back to our office. Ok to relay message below from Anamaria Guerrero RN. Unable to leave a message, voicemail is full. If patient calls back please ask the need for syringes, please encourage patient to keep 02/24/24 appt. Thank you. [facility] Telephone encounter Note Unable to leave a message, voicemail is full. If patient calls back please ask the need for syringes, please encourage patient to keep 02/24/24 appt. Thank you. [facility] 01-21-2024 Note Outreach Team ([phone]) Contact Details: Outbound call. Scheduling declined. Care Gaps Scheduling Medicare AWV / PCP Visit: AWV declined Eye Exam: Not due Mammogram: Due; needs order. [facility] [employer] 01-21-2024 Telephone encounter Note Outreach Team ([phone]) Contact Details: Outbound call. Scheduling declined. Care Gaps Scheduling Medicare AWV / PCP Visit: AWV declined Eye Exam: Not due Mammogram: Due; needs order. [facility] 01-21-2024 Miscellaneous Notes Outreach Team ([phone]) Contact Details: Outbound call. Scheduling declined. Care Gaps Scheduling Medicare AWV / PCP Visit: AWV declined Eye Exam: Not due Mammogram: Due; needs order. documented in this encounter [facility] 01-06-2024 Telephone encounter Note Images from the [...] 12:50 PM) Randall Hodgson MD [facility] 01-06-2024 Miscellaneous Notes Images from the original [...] 12:50 PM) Randall Hodgson MD [facility] documented in this encounter [facility] 12-23-2023 Telephone encounter Note OARRS reviewed. This is the last prescription that I will refill on behalf of this patietn [facility] 12-23-2023 Miscellaneous Notes OARRS reviewed. This is the last prescription that I will refill on behalf of this patietn documented in this encounter [facility] 11-16-2023 Discharge summary Note Date/Time November 16, 2023 2:15pm [facility] Medical Records Department [address] [place] [address] Emergency Department Summary 11/16/23 MR#: [id number] Acct: [id number] Name: MORENA PATTON Rep #:[id number] : 1960 63 From: Charly Nichols PCP: [...] approximate 4 months ago was admitted to [facility] for syncope. She had a Holter monitor [...] clinician: N/A This note was generated with Paice dictation software. It may contain incorrectwords, spelling, [...] 33.4 L Lymph % (Auto) 57.5 H Grimes % (Auto) 6.8 Eos % (Auto) 1.7 [...] Referrals: Alyson Gao MD [Med Staff - Window And Door Installer] - 3-5 Days Care Physician,No Primary [Primary [...] your Primary Care Provider. Call [facility] ([phone]) or report to the closest Emergency Room. Call 911 if necessary. 11/16/231811 <Electronically signed by Charly Nichols> Cosigner Signature (if applicable): CC: No Primary Care Physician ~ [facility]igned [facility] Work Phone: 1(565) 836-477110-27-2023 Telephone encounter Note* Telephone Encounter - Nayana Muir - 05/28/2023 2:21 PM EDT Care Gaps Scheduling Health Maintenence Due: Medicare AWV/PCP Visit: deferred Eye Exam: not due Foot Exam: not due Annual Bloodwork: active orders YOKO: not due [id number] Miscellaneous Notes* Telephone Encounter - Nayana Muir - 05/28/2023 2:21 PM EDT Care Gaps Scheduling Health Maintenence Due: Medicare AWV/PCP Visit: deferred Eye Exam: not due Foot Exam: not due Annual Bloodwork: active orders YOKO: not due documented in this [id number] Discharge summary Author Blaise Tom [facility] March 23, 2023 9:12pm Note Date/Time March 23, 2023 5: 11pm [facility] Medical Records Department [address] [place] [address] Emergency Department Summary 03/23/23 MR#: [id number] Acct: [id number] Name: MORENA PATTON Rep #:[id number] : 1960 63 From: Blaise Tom DO [...] open her hand. [facility] and her symptoms worsened. Patient states I cannot take it anymore. States she was recently admitted to the hospital for this and never followed up with anybody as an outpatient. She said her last PCP was at [facility]. Denies fever or chills. Denies constipation or [...] it got worse when she was at [facility] today and she presents while drinking a [...] 37.9 L Lymph % (Auto) 51.0 H Grimes % (Auto) 8.7 Eos % (Auto) 2.0 [...] Clarity Clear Urine pH 6.0 Ur Specific [place] 1.020 Urine Protein 30 H Urine Glucose [...] your Primary Care Provider. Call [facility] ([phone]) or report to the closest Emergency Room. Call 911 if necessary. 03/23/232111 <Electronically signed by Blaise Tom DO> Cosigner Signature (if applicable): CC: No Primary Care Physician ~ [facility]igned [facility] Work Phone: 1(358) 600-140008-14-2023 Telephone encounter Note* Telephone Encounter - Sarita Moscoso RN - 03/15/2023 1:13 PM EDT Order pended for provider review & signature. Requested Prescriptions Pending Prescriptions Disp Refills Syringe 23G X 1 3 ML MISC 12 Each 0 Si Syringe once a month. vitamin B-12 (CYANOCOBALAMIN) 1000 MCG/ML injection 12 Each 0 Sig: Inject 1 mL into the muscle once a month. [id number] Miscellaneous Notes* Telephone Encounter - Sarita Moscoso [...] provider's name: Hilton Johnson MD Pharmacy Name: [facility] documented in this [id number] Telephone encounter Note* Telephone Encounter - Heather Mariscal - 03/15/2023 10:53 AM EDT Pharmacy requesting medication substitution. Medication not available to order: Cyanocobalamin 1000 MCG/ML KIT Recommended alternative medications: Pharmacy is requesting two separate prescriptions, one for thevitamin B injection solution and the other for the syringe to inject it. Prescribing provider's name: Hilton Johnson MD Pharmacy Name: [facility] [id number] Telephone encounter Note* Telephone Encounter - Lisa [...] Patient verbalized understanding with no further questions. [id number] Miscellaneous Notes* Telephone Encounter - Lisa Ballesteros [...] of protection against CVD. documented in this [id number] Telephone encounter Note* Telephone Encounter - Hilton Johnson MD - 03/10/2023 7:57 AM EDT Prescribing a statin in response to the elevated cholesterol and total nonHDL cholesterol identified on her lipid panel realizing that the HDL is quite elevated and might indicate some degree of protection against CVD. [id number] Note* Addendum Note - Nichelle Hills - 03/09/2023 2:14 PM EDTAddended by: NICHELLE HILLS on: 03/09/2023 02:14 PM Modules accepted: Orders [id number] Note* Addendum Note - Nichelle Hills - 03/09/2023 2:14 PM EDTAddended by: NICHELLE HILLS on: 03/09/2023 02:14 PM Modules accepted: Orders [id number] Miscellaneous Notes* Addendum Note - Nichelle Hills - 03/09/2023 2:14 PM EDTAddended by: NICHELLE HILLS on: 03/09/2023 02:14 PM Modules accepted: Orders documented in this [id number] History of Present illness Narrative* Orin Garcia - 03/09/2023 10:40 AM EDT Patient identified by name and date of . Blood obtained from arm. * Hilton Johnson MD - 03/09/2023 9:30 AM EDT Date: 03/09/23 Morena Patton 63 year old, female [id number] CHIEF COMPLAINT: Chief Complaint Patient presents with [...] about a week ago. She lives in [place] but came here today because viktoriya really knows me. She ran out of most of her medications and has not been taking them. She passed out last week and picked up some medications at that time. She is now on a heart monitor. She is due to see a gas fitter apprentice when she turns in her monitor. She was in the ED on January 30 for abdominal pain. She was discharged on Carafate. She started taking it on 02/24. She was in pain the entire time up until starting to take it. Her pain is now improved but not resolved. She states that she needs to see a livestock auctioneer and Neurologist and gas fitter apprentice. 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 Diagnoses and all orders for this [...] - vitamin D2 ergocalciferol (DRISDOL) 1.25 MG (69859 UT) capsule; Take 1 Capsule by mouth [...] during her most recent ED visit to [facility] On . Generalized abdominal pain This was the reason that she presented to the ED at [facility] on Dizziness - CARDIOLOGY SERVICE REQUEST - ECHOCARDIOGRAM, ADULT SERVICE REQUEST Patient states that she is always dizzy and weak and is currently wearing a Holter monitor and was told that she needs to see a Pantomimist to assess her problem. Prediabetes - HEMOGLOBIN A1C Cervical spondylosis without myelopathy - gabapentin (NEURONTIN) 300 MG capsule; 1-2 tablets three times daily Primary osteoarthritis of right knee Ms. Ptaton requested other medications during the visit to [...] at follow up visits. She lives in [place], and I encouraged her to have care established there as she is likely to be admitted to that local hospital if/when she might become acutely ill. She wants to continue care here at [facility] and we will therefore provide herthe referral [...] Risk protocol implemented: No documented in this [id number] Telephone encounter Note* Telephone Encounter - Janae [...] as well as a plan of action. [id number] Miscellaneous Notes* Telephone Encounter - Janae Hemphill [...] a plan of action. documented in this [id number] Discharge summary Author Virginie Aguillon [facility] February 16, 2023 10:56am Note Date/Time February 16, 2023 10:5 7am [facility] Medical Records Department [address] [place] [address] Instructions for Home/Discharge Instructions 02/16/23 1056 MR#: [id number] Acct: [id number] Name: MORENA PATTON Rep #:[id number] : 1960 63 From: Virginie Aguillon MD [...] your pharmacy, this can also be obtained bfkl-ggz-ncudcup at a pharmacy as you were low [...] Recorder Preventi (Urgent) Timeframe: 1 Day Facility: [facility] - Location: Cardiovascular Services Ordered By: [...] MD; No Primary Care Physician ~ Signed [facility] Work Phone: 1(466) 353-940407-17-2023 Progress note Author Virginie Aguillon [facility] February 15, 2023 2:30pm Note Date/Time February 15, 2023 2:30 pm [facility] Medical Records Department [address] [place] [address] Progress Note - Hospitalist 02/15/23 1422 MR#: [id number] Acct: [id number] Name: MORENA PATTON Rep #:[id number] : 1960 63 From: Virginie Aguillon MD PCP: Care Physician,No Primary Status :ADM CYRIL Location: [place] [address] Reason for Visit Reason for Visit: Diagnoses [...] 23.7 L, Lymph % (Auto) 61.1 H, Grimes % (Auto) 11.0 H, Eos % (Auto) [...] however so came to ED -Was in [facility] twice in January and hat CTA [...] documentation, 52minutes Charges/Coding Visit Charges Inpatient E&M: 00619 Subs Hosp L3 02/15/23 1430 <Electronically signed by Virginie Aguillon MD> Cosigner Signature (if applicable): CC: ~ Signed [facility] Work Phone: 1(129) 531-362007-16-2023 Progress note Author Drew Solis [facility] February 14, 2023 9:50am Note Date/Time February 14, 2023 7:38 am [facility] Medical Records Department [address] [place] [address] Progress Note - Hospitalist 02/14/23 0736 MR#: [id number] Acct: [id number] Name: MORENA PATTON Rep #:[id number] : 1960 63 From: Drew Solis MD PCP: Care Physician,No Primary Status :ADM CYRIL Location: [place] [address] Reason for Visit Reason for Visit: Diagnoses [...] (Auto) 39.8 L, Lymph % (Auto) 46.3H, Grimes % (Auto) 10.8 H, Eos % (Auto) [...] 37.1 L, Lymph % (Auto) 47.8 H, Grimes % (Auto) 12.3 H, Eos % (Auto) [...] documentation, 50Minutes Charges/Coding Visit Charges Inpatient E&M: 93537 Subs Hosp L3 02/14/23 0950 <Electronically signed by Drew Solis MD> Cosigner Signature (if applicable): CC: ~ Signed [facility] Work Phone: 1(476) 806-751107-16-2023 History and physical note Author Jeniffer Campos [facility] February 13, 2023 10:41pm Note Date/Time February 13, 2023 8:47 pm [facility] Medical Records Department [address] [place] [address] [place] [address] H&P Exam - Hospitalist 02/13/232044 MR#: [id number] Acct: [id number] Name: MORENA PATTON Rep #:[id number] : 1960 63 From: Jeniffer Campos MD PCP: Care Physician,No Primary Status :ADM CYRIL Location: [address] HPI - General General Date [...] for pain control) who presents to the [facility] ED on 02/13/23 with history of [...] no prodrome. She was recently seenin the [employer] system in January twice from records noted [...] am unable tosee these records in the [employer] system. There was recent CTA evaluation/lab work-up [...] (Auto) 39.8 L, Lymph % (Auto) 46.3H, Grimes % (Auto) 10.8 H, Eos % (Auto) [...] 20:32 EDT Reading Location ID and State: [facility] / [place] , Service support [...] for pain control) who presents to the [facility] ED on 02/13/23 with history of [...] with history of peptic ulcer disease: Admission ohcvgaerqj64.2, baseline prior has been 12-13 but there [...] 75 minutes. Charges/Coding Visit Charges Inpatient E&M: 39748 Init Hosp L3 02/13/23 2241 <Electronically signed by Jeniffer Campos MD> Cosigner Signature (if applicable): CC: Dr. Jeniffer Campos MD; No Primary Care Physician~ Signed [facility] Work Phone: 1(774) 293-451807-16-2023 Discharge summary Author Albert Carbone [facility] February 13, 2023 10:07pm Note Date/Time February 13, 2023 7:43 pm [facility] Medical Records Department [address] [place] [address] Emergency Department Summary 02/13/23 MR#: [id number] Acct: [id number] Name: MORENA PATTON Rep #:[id number] : 1960 63 From: Albert Carbone MD PCP: Care Physician,No Primary Status :ADM CYRIL Location: [place] [address] Albert Carbone MD on [...] son is arrived. He said at a [facility] which I believe was [facility] they found that she had valvular heart disease. He thinks that may be the causeof her syncopal episodes. He preferred that she go to [place]. I explained to him that that may not be a possibility tonight. He wants to sign out and take her to [facility] emergency department himself. 02/13/232199<Electronically signed by [...] Reaction Status Date / Time buprenorphine [From [facility]] Allergy Rash Verified 10/22/22 10:10 NSAIDS (Non-Steroidal [...] girdle intact. Moving all 4 extremities. Normal concreter strength. Normal dorsi plantarflexion. Neurologically. She is [...] 39.8 L Lymph % (Auto) 46.3 H Grimes % (Auto) 10.8 H Eos % (Auto) [...] 20:32 EDT Reading Location ID and State: [address] [place] [address] , Service support , Chest x-ray, portable, single view showed no acute abnormality. Normal cardiac silhouette. Normal mediastinum. Normal lung ferrer. Rhythm Strip Rhythm Strip: Sinus Rhythm Rate: 78 Ectopy: None EKG Initial EKG: Attestation: I personally reviewed and interpreted this EKG as follows: Interpretation: No Acute Injury Pattern Comments: Normal sinus rhythm rate of 78. No acute signs of NM nor ischemia nor dysrhythmia. Unremarkable EKG. Discharge Plan Dx/Rx/DC Orders Clinical Impression: Closed head injury, Syncope, Fall Disposition Disposition: Acute Care [facility] What to do if you have Problems For any increased pain, shortness of breath, bleeding, nausea or vomiting, chestpain, or any unexpected problems, contact your Primary Care Provider. Call [facility] ([phone]) or report to the closest Emergency Room. Call 911 if necessary. 02/13/232104 <Electronically signed by Albert Carbone MD> Cosigner Signature (if applicable): CC: No Primary Care Physician ~ Signed [facility] Work Phone: 1(238) 259-416707-15-2023 Discharge summary Author Albert Carbone [facility] February 13, 2023 10:07pm Note Date/Time February 13, 2023 7:43 pm [facility] Medical Records Department [address] [place] [address] Emergency Department Summary 02/13/23 MR#: [id number] Acct: [id number] Name: MORENA PATTON Rep #:[id number] : 1960 63 From: Albert Carbone MD PCP: Care Physician,No Primary Status :ADM CYRIL Location: [place] [address] Albert Carbone MD on [...] son is arrived. He said at [facility] found that she had valvular heart disease. He thinks that may be the causeof her syncopal episodes. He preferred that she go to [place]. I explained to him that that may not be a possibility tonight. He wants to sign out and take her to [facility] emergency department himself. 02/13/232199<Electronically signed by [...] Prior similar symptoms: Yes Recent Ill[facility] Medical History (Updated 02/13/23 @ 20:47 by [...] girdle intact. Moving all 4 extremities. Normal concreter strength. Normal dorsi plantarflexion. Neurologically. She is [...] 39.8 L Lymph % (Auto) 46.3 H Grimes % (Auto) 10.8 H Eos % (Auto) [...] 20:32 EDT Reading Location ID and State: [facility] / [place] , Service support , Chest x-ray, portable, single view showed no acute abnormality. Normal cardiac silhouette. Normal mediastinum. Normal lung ferrer. Rhythm Strip Rhythm Strip: Sinus Rhythm Rate: 78 Ectopy: None EKG Initial EKG: Attestation: I personally reviewed and interpreted this EKG as follows: Interpretation: No Acute Injury Pattern Comments: Normal sinus rhythm rate of 78. No acute signs of NM nor ischemia nor dysrhythmia. Unremarkable EKG. Discharge Plan Dx/Rx/DC Orders Clinical Impression: Closed head injury, Syncope, Fall Disposition Disposition: Acute Care Hospital [facility] What to do if you have Problems For any increased pain, shortness of breath, bleeding, nausea or vomiting, chestpain, or any unexpected problems, contact your Primary Care Provider. Call [facility] ([phone]) or report to the closest Emergency Room. Call 911 if necessary. 02/13/23 2433 <Electronically signed by Albert Carbone MD> Cosigner Signature (if applicable): CC: No Primary Care Physician ~ Signed [facility] Work Phone: 1(996) 857-779203-23-[address] Tom [facility] October 22, 2022 2:51pm Note Date/Time October 22, 2022 10: 39am [facility] Medical Records Department [address] [place] [address] Emergency Department Summary 10/22/22 MR#: [id number] Acct: [id number] Name: MORENA PATTON Rep #:[id number] : 1960 62 From: Blaise Tom DO [...] couple of falls at home this week. [facility] Medical History ADHD (attention deficit hyperactivity [...] Reaction Status Date / Time buprenorphine [From [facility]] Allergy Rash Verified 10/22/22 10:10 NSAIDS (Non-Steroidal [...] 45.8 L Lymph % (Auto) 43.4 H Grimes % (Auto) 7.5 Eos % (Auto) 2.5 [...] Clarity Clear Urine pH 7.0 Ur Specific [place] 1.015 Urine Protein 30 H Urine Glucose [...] your Primary Care Provider. Call [facility] ([phone]) or report to the closest Emergency Room. Call 911 if necessary. 10/22/22 1451 <Electronically signed by Blaise Tom DO> Cosigner Signature (if applicable): CC: No Primary Care Physician ~ Signed [facility] Work Phone: 1(462) 438-748203-10-[address] Rutledge [facility] October 09, 2022 5:57pm Note Date/Time October 09, 2022 5:4 1pm [facility] Medical Records Department [address] [place] [address] Emergency Department Summary 10/09/22 MR#: [id number] Acct: [id number] Name: MORENA PATTON Rep #:[id number] : 1960 62 From: Lisa ROY PCP: [...] has been taking Excedrin for the headaches. [facility] <MANUELA [place] - Last Filed: 10/09/22 17:50> [facility] Medical History ADHD (attention deficit hyperactivity disorder) [...] Reaction Status Date / Time buprenorphine [From [facility]] Allergy Rash Verified 10/09/22 17:24 NSAIDS (Non-Steroidal [...] <MANUELA [place] - Last Filed: 10/09/22 17:50> [facility] Narrative Medical decision making narrative: Patient had [...] CT scan. She was advised to take zrrt-ysm-drrhifz pain relievers and follow-up with her doctor next week. She was given return precautions and discharged in stable condition. Differential: Concussion, intracranial bleed, skull fracture Test considered but not ordered: Cording to [place] CT head rule no indication for head imaging. Prescriptions considered but I think she can take qwgh-ygk-evekfsb Tylenol or Motrin. <Dr. Anthony Rutledge MD - Last Filed: 10/09/22 17:57> [facility] Narrative Medical decision making narrative: Patient had [...] CT scan. She was advised to take bcwq-bez-uenhakq pain relievers and follow-up with her doctor next week. She was given return precautions and discharged in stable condition. Differential: Concussion, intracranial bleed, skull fracture Test considered but not ordered: Cording to [place] CT head rule no indication for head imaging. Prescriptions considered but I think she can take zfze-upc-twevjxj Tylenol or Motrin. I have personally performed [...] neurologic exam Medical Decision Making per the [place] CT head rule and [place] rule imaging is not required. Per [employer] [...] your Primary Care Provider. Call [facility] ([phone]) or report to the closest Emergency Room. Call 911 if necessary. 10/09/221749 <Electronically signed by Lisa ROY> Cosigner Signature (if applicable): 10/09/221756 <Electronically signed by Teo WOO> CC: No Primary Care Physician ~ Signed [facility] Work Phone: 1(264) 143-683107-28-2022 Telephone encounter Note* Telephone Encounter - Joey Mcnamara - 02/26/2022 10:10 AM EDT Care Gaps Scheduling Contact Details: Called, left message Health Maintenance Due: Medicare AWV / PCP Visit: Due Eye Exam: Not due Foot Exam: Not due Annual Blood Work: Due Mammogram: Due, but pt has no order in Active Requests FIT: Not due [id number] Miscellaneous Notes* Telephone Encounter - Joey Mcnamara - 02/26/2022 10:10 AM EDT Care Gaps Scheduling Contact Details: Called, left message Health Maintenance Due: Medicare AWV / PCP Visit: Due Eye Exam: Not due Foot Exam: Not due Annual Blood Work: Due Mammogram: Due, but pt has no order in Active Requests FIT: Not due documented in this [id number] Hospital course Narrative* Berkley Jaramillo MD - 01/01/2022 7:31 AM EDT DISCHARGE SUMMARY [address] [address] Morena Patton Date of : 1960 61 [...] Referral Type: Service Level Authorization Referral Location: [facility] GASTR[facility] Number of Visits Requested: 3 Expiration Date: 12/31/22 Future Appointments Date Time Provider Department Center 01/14/2022 10:45 AM Macy Smith DO [facility] 02/19/2022 10:30 AM [facility] Condition at Discharge Improved Activity No restrictions Diet No restrictions Disposition Home Functional Status Ambulatory Reason for Hospitalization Upper Gastrointestinal Hemorrhage Significant Findings EGD and colonoscopy 12/30/21 IMPRESSION: 1. Two clean based (Medicine Bow Class III) ulcers noted at the anastomosis [...] underwent EGD and colonoscopy. Two clean based (Medicine Bow Class III) ulcers were noted at the [...] Associated Diagnoses: COPD (chronic obstructive pulmonary disease) ([facility]) ammonium lactate (LAC-HYDRIN) 12 % lotion Apply 80 mL topically 2 times daily. Qty: 500 g, Refills: 3 Associated Diagnoses: Dry skin !! beclomethasone (QVAR) 40 MCG/ACT inhaler Inhale 1 Puff 2 times daily. Qty: 7.3 g, Refills: 3 Associated Diagnoses: COPD (chronic obstructive pulmonary disease) ([facility]) methocarbamol (ROBAXIN-750) 750 MG tablet [...] MD Internal Medicine, PGY-1 documented in this [id number] History of Present illness Narrative* Carlos Katz - 12/31/2021 5:03 PM EDT [facility] Spiritual Care Services Services provided for: Patient Services initiated by: Staff Insert Molding Operator Reason for services: Initial visit Assessment/Narrative: Patient just lost a first cousin apparently in good health last week Anabaptism/Spirituality: Non Uatsdin Spiritual Concerns: Grief/Loss Coping: Role of jehovah's witness/spirituality Family: Support and Dynamics Interventions: Rapport building and prayer Outcome: Expressed appreciation Plan of Care: On-going Visits Carlos Katz Pager: [phone] Extension: [phone] * Orestes Gaspar MD - 12/31/2021 3:42 [...] Hemolysis present 12/28/21 172 23 EGD: Two Medicine Bow Class III ulcers at anastomosis site of [...] Concerns No PCP VERIFIED No ADMISSION INSURANCE [employer];Medicare Medicare HMO (comment) Transportation to and/or [...] and update the plans as warranted. Adonay CHORPA, RN Inpatient Sap Portal Developer * Berkley Jaramillo MD - 12/30/2021 7:24 AM EDT Images from the original note were not included. INTERNAL MEDICINE TEAM 9 DAILY PROGRESS NOTE Patient: Morena Patton : 1960 Sex: female Room: [place] [address] Admit Date: 12/28/2021 Today's Date: 12/30/2021 Length [...] Morena CHANDRA : 1960 Sex: female Room: [place] [address] Admit Date: 12/28/2021 Today's Date: 12/29/2021 Length [...] Goetz MD Internal Medicine, PGY-1 Personal Pager: [phone] Team 9 Pager: [phone] documented in this [id number] Hospital Discharge instructions* Discharge Instructions* Berkley Jaramillo [...] be in 10 years. documented in this [id number] Note* Care Plan Note - Catalina Hyde [...] adult patient will be met Outcome: Progressing [id number] Miscellaneous Notes* Care Plan Note - Catalina [...] - 12/30/2021 10:03 AM EDT Morena Patton [id number] 12/30/2021 HISTORY & PHYSICAL: Patient's history with [...] Ortiz MD 12/30/21 10:03 AM Morena Patton [id number] 12/30/2021 SPARK PLUG ASSEMBLER: Todd Ortiz MD ATTENDING:Davon Ha MD ([id number]) Procedure(s): ESOPHAGOGASTRODUODENOSCOPY AND COLONOSCOPY INSTRUMENT: Scope #[id number] #[id number] COLONOSCOPE #3006 SEDATION: Moderate: Oxygen 2L via [...] normal GASTROJEJUNAL ANASTOMOSIS: Two clean based ulcers (Medicine Bow Class III) with surrounding erythematous mucosa noted [...] transillumination of right lower quadrant. Prep was [place] Bowel Prep Right Colon: Minor amount of residual staining, small fragments of stool and/or opaque liquid, [place] Bowel Prep Transverse Colon: Entire colon seen well, [place] Bowel Prep Left Colon:Minor amount of residual [...] and collapse (Primary Diagnosis) [780.2.ICD-9-CM] Peptic ulcer [138833] Gastrointestinal hemorrhage, unspecified gastrointestinal hemorrhage type [0091235] 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-en-Y gastric bypass [180818] Anastomotic ulcer [110276] Chronic iron deficiency anemia [6081866] JANIE PATH SPECIMEN SENT: no SPECIMEN: None PHOTOGRAPH TAKEN:yes COMPLICATIONS DURING PROCEDURE: none EBL (estimated blood loss): none IMPRESSION: 1. Two clean based (Medicine Bow Class III) ulcers noted at the anastomosis [...] Code Dispo: Inpatient Rest of plan per recruiting intern note. To be discussed with attending physician in the morning. Plan is preliminary until finalized by the attending physician. Luis Daniel Ahumada Internal Medicine, PGY-2 Pager: [phone] documented in this [id number] Note* OP Note - Davon Ha MD - 12/30/2021 10:03 AM EDT Morena Patton [id number] 12/30/2021 HISTORY & PHYSICAL: Patient's history with [...] Ortiz MD 12/30/21 10:03 AM Morena Patton [id number] 12/30/2021 SPARK PLUG ASSEMBLER: Todd Ortiz MD ATTENDING:Davon Ha MD ([id number]) Procedure(s): ESOPHAGOGASTRODUODENOSCOPY AND COLONOSCOPY INSTRUMENT: Scope #[id number] #[id number] COLONOSCOPE #3006 SEDATION: Moderate: Oxygen 2L via [...] normal GASTROJEJUNAL ANASTOMOSIS: Two clean based ulcers (Medicine Bow Class III) with surrounding erythematous mucosa noted [...] transillumination of right lower quadrant. Prep was [place] Bowel Prep Right Colon: Minor amount of residual staining, small fragments of stool and/or opaque liquid, [place] Bowel Prep Transverse Colon: Entire colon seen well, [place] Bowel Prep Left Colon:Minor amount of residual [...] and collapse (Primary Diagnosis) [780.2.ICD-9-CM] Peptic ulcer [129136] Gastrointestinal hemorrhage, unspecified gastrointestinal hemorrhage type [6671801] 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-en-Y gastric bypass [259982] Anastomotic ulcer [800915] Chronic iron deficiency anemia [8764337] JANIE PATH SPECIMEN SENT: no SPECIMEN: None PHOTOGRAPH TAKEN:yes COMPLICATIONS DURING PROCEDURE: none EBL (estimated blood loss): none IMPRESSION: 1. Two clean based (Medicine Bow Class III) ulcers noted at the anastomosis [...] Ha MD Department of Gastroenterology & Hepatology [id number] Note* Care Plan Note - Kimi Amezcua [...] adult patient will be met Outcome: Progressing [id number] History and physical note* Orestes Gaspar MD [...] 3. Continue usual meds Orestes Gaspar MD [id number] History and physical note* Orestes Gaspar MD [...] Morena Chandra : 1960 Sex: female Room: [place] [address] Admit Date: 12/28/2021 Today's Date: 12/28/2021 Length [...] and doesn't remember anything after that - [place] her face was cold/had cold towels on [...] Surgical History: Procedure Laterality Date [place]ATR[place] [facility] [place] 1978 Lost child COLONOSCOPY 3-03 [...] of drug use. Family History: Cousin had [place] Review of patient's family history indicates: Problem: [...] Goetz MD Internal Medicine, PGY-1 Personal Pager: [phone] Team 9 Pager [phone] documented in this [id number] Consult note* Davon Ha MD - 12/29/2021 10:00 AM EDTAssociated Order(s): IP GASTROENTEROLOGY CONSULT Images from the original note were not included. Department of Gastroenterology and Hepatology Consult H&P Note GI Attending Physician: Dr. Davon Ha MD ([id number]) Patient: Morena CHANDRA Location: [facility] Reason for Consult: coffee ground emesis, iron [...] stomach 3. Normal remnant stomach Colonoscopy [address] [facility] (report not available) Colonoscopy 2002 [...] with GI attending, Dr. Davon Ha MD ([id number]). Primary team updated. Please don't hesitate to reach out with questions or concerns. We will continue to follow with you. Personal Pager [phone] GI Consult Pager (nights and weekends) [phone] Mary Ellen Miller MD Gastroenterology Fellow Division of Gastroenterology & Hepatology [facility] 12/29/21 ATTENDING NOTE The patient was [...] Ha MD Department of Gastroenterology & Hepatology [facility] Work Phone: 1(241) 867-968105-30-2022 Consult note* Davon Ha MD - 12/29/2021 10:00 AM EDTAssociated Order(s): IP GASTROENTEROLOGY CONSULT Images from the original note were not included. Department of Gastroenterology and Hepatology Consult H&P Note GI Attending Physician: Dr. Davon Ha MD ([id number]) Patient: Morena CHANDRA Location: Reason for Consult: [...] stomach 3. Normal remnant stomach Colonoscopy [address] [facility] (report not available) Colonoscopy 2002 [...] with GI attending, Dr. Davon Ha MD ([id number]). Primary team updated. Please don't hesitate to reach out with questions or concerns. We will continue to follow with you. Personal Pager [phone] GI Consult Pager (nights and weekends) [phone] Mary Ellen Miller MD Gastroenterology Fellow Division of Gastroenterology & Hepatology [facility] 12/29/21 ATTENDING NOTE The patient was [...] Ha MD Department of Gastroenterology & Hepatology [facility] documented in this [id number] Emergency department Note* Mayra Leong - 12/29/2021 8:15 AM EDT Pts candido fully changed. [id number] Emergency department Note* Mayra Leong - 12/29/2021 [...] patient is accepted. Harshad Emery DO PGY2 [id number] * Wayne Benton MD - 12/28/2021 5:05 PM EDT EMERGENCY DEPARTMENT - VISIT NOTE HISTORY OF PRESENT ILLNESS Chief Complaint Patient presents with Fainting Per ems, family states patient passed out, +etoh and marijuana HIPAA: Verbal permission granted from patient to discuss case, including protected health information, in front of family / friends in room at the time of the evaluation. Wastewater Treatment Operator: not needed - patient preferred language is Senegalese. The history is provided by the Patient. 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 Plan: Admit to [facility] after labs result. IMPRESSION AND DISPOSITION [...] 202912/28/21 Dr. Wayne Benton documented in this [id number] Note* Care Plan Note - Luis Daniel Ahumada MD - 12/28/2021 9:42 PM EDT Images from the original note were not included. INTERNAL MEDICINE TEAM 9 SENIOR RESIDENT ADMISSION NOTE Name: Morena Chandra CC: syncope and coffee ground emesis S: Morena Chandra is a 61 year old female with a PMH of RYGB (1999), PUD(marginal ulcer?), HTN, GERD, PROTIA, depression, chronic back pain, OA, LAURENCE (CPAP [...] Code Dispo: Inpatient Rest of plan per recruiting intern note. To be discussed with attending physician in the morning. Plan is preliminary until finalized by the attending physician. Luis Daniel Ahumada Internal Medicine, PGY-2 Pager: [phone] [employer] Work Phone: 1(390) 746-353305-29-2022 History and physical note* Viviane Goetz MD - 12/28/2021 8:54 PM EDT Images from the original note were not included. INTERNAL MEDICINE TEAM 9 HISTORY AND PHYSICAL Patient: Morena Chandra : 1960 Sex: female Room: [place] [address] Admit Date: 12/28/2021 Today's Date: 12/28/2021 Length [...] and doesn't remember anything after that - [place] her face was cold/had cold towels on [...] of drug use. Family History: Cousin had [place] Review of patient's family history indicates: Problem: [...] is preliminary until finalized by Attending. Viviane oGetz MD Internal Medicine, PGY-1 Personal Pager: [phone] Team 9 Pager [phone] [id number] Physician Emergency department Note* Wayne Benton MD [...] to stay in hospital Wayne Benton MD [facility] Work Phone: 1(705) 191-188905-29-2022 Physician Emergency department Note* Harshad Emery DO [...] patient is accepted. Harshad Emery DO PGY2 [id number] [employer] Work Phone: 1(111) 208-492105-29-2022 Physician Emergency department Note* Wayne Benton MD [...] room at the time of the evaluation. Wastewater Treatment Operator: not needed - patient preferred language is Senegalese. The history is provided by the Patient. 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 Plan: Admit to [facility] after labs result. IMPRESSION AND DISPOSITION [...] note No data available for this section [facility] Evaluation note* Diagnosis Gastrointestinal hemorrhage, unspecified gastrointestinal [...] in [facility] Work Phone: Evaluation note* Diagnosis Onset Date Resolution Status Closed head injury acute Fall acute Syncope acute [facility] Work Phone: Evaluation note* Diagnosis Onset Date Resolution Status Anxiety and depression acute Closed head injury acute Fall acute Syncope acute Hypertension chronic Insomnia chronic [facility] Work Phone: Evaluation note* Diagnosis Routine [...] Iron deficiency anemia following bariatric surgery resolved [facility] Work Phone: Evaluation note* Diagnosis Anastomotic [...] myelopathy- Primary documented in this encounter [employer] Work Phone: Hospital Discharge instructions Additional Instructions Take Tylenol 1000 mg every 6 hours as needed and follow-up with your doctor next week if symptoms are persistent.[facility] Work Phone: Hospital Discharge instructions Additional Instructions Patient's evaluation at [facility] was unremarkable. Blood counts are stable. Electrolytes are unremarkable. Potassium is elevated due to hemolysis. Chest x- ray, EKG and CAT scan of the brain were unremarkable. We had planned to admit her for a syncopal event. Family believes that she has a recent work-up done at [facility] that showed valvular heart disease and they would prefer to go there for further evaluation.[facility] Work Phone: Hospital Discharge instructions Additional Instructions Cardiac workup negative. D-dimer negative. Chest x-ray negative. Hemoglobin 11.5. White count 5.3. Creatinine 1.04. Follow-up as an outpatient as given to further testing. If you have recurrent symptoms, return to the ED for reevaluation.[facility] Work Phone: Hospital Discharge instructions No data available for this section [facility] Progress note No data available for this section [facility] Reason for referral (narrative)* Tests/Procedures (Routine) - Pending Review Specialty Diagnoses / Procedures Referred By Contact Referred To Contact Cardiovascular Testing Diagnoses Dizziness Hilton Johnson MD [address] [place] [address] [facility] CARD NON INVASIVE [address] [id number] Referral ID Status Reason Start Date Expiration Date V isits Requested Visits Authorized [id number] Pending Review 03/09/2023 03/09/2024 1 1 Scheduling [...] call the [facility] and [facility] Center at [phone] (BEAT) if you are unable to keep [...] menstrual period 08/27/2002. [email or web address] * Service Level Authorization (Routine) - Pending Review Specialty Diagnoses / Procedures Referred By Contac t Referred To Contact Cardiology Diagnoses Dizziness [place] [address] [facility] CARDIOLOGY [address] [place] [address] Referral ID Status Reason Start Date Expiration Date V isits Requested Visits Authorized [id number] Pending Review 03/09/2023 03/09/2024 3 3 Scheduling Instructions Please call the [facility] at [phone] to schedule an appointment if one was not made for you today. Question Answer What is the primary reason for consult? Dizziness [10] At what location would you like the patient to be seen? [facility] Summary Purpose Family History No Family History [...] Will No July 07 12:21pm Power of Cable Dispatcher No July 07, 2022 12:21pm Advance Directive Response Recorded Date/ Time Advance Directives No March 05 10:27am Living Will No October 09, 2022 5:35pm Power of Cable Dispatcher No October 09 5:35pm Advance Directive Response Recorded Date/ Time Advance Directives No March 05 11:27am Living Will No October 22, 2022 11:50am Power of Cable Dispatcher No October 22 11:50am Advance Directive Response Recorded Date/ Time Advance Directives No March 05 11:27am Living Will No February 13, 2023 7:26pm Power of Cable Dispatcher No February 13 7:26pm Advance Directive Response Recorded Date/ Time Advance Directives No March 05 11:27am Living Will No February 13, 2023 10:30pm Power of Cable Dispatcher No February 13 10:30pm Latest Code Status [...] Will No March 23 4:25pm Power of Cable Dispatcher No March 23, 023 4:25pm Advance Directive Response Recorded Date/ Time Advance Directives No March 05, 021 11:27am Living Will No November 16, 2023 2:13pm Power of Cable Dispatcher No November 15 2:13pm Date Activated Date [...] Chronic iron deficiency anemia Orestes Gaspar MD [address] [place] [address] S GASTROENTEROLOGY [address] [place] [address] Referral ID Status Reason Start Date Expiration Date V isits Requested Visits Authorized [id number] Pending Review 12/31/2021 12/31/2022 3 3 Scheduling [...] To Contact Cardiovascular Testing Emergency Medicine [address] [place] [address] [facility] CARD NON INVASIVE [address] [phone] Referral ID Status Reason Start Date Expiration Date V isits Requested Visits Authorized [id number] Authorized 12/28/2021 12/28/2022 1 1 Scheduling Instructions [...] call the [facility] and V[facility] Center at [phone] (BEAT) if you are unable to keep [...] spondylosis without myelopathy Drew Rosenbaum, DO [address] [place] [address] [facility] [place] [address] Referral ID Status Reason Start Date Expiration Date Visits Requested Visits Authorized [id number] [facility] 01/06/2024 01/05/2025 1 1 Scheduling Instructions You have been referred to the [facility]. You will be contacted to schedule your appointment within 24 - 48 hours. If you are not contacted within this time frame please call the [facility] and Healing Center at [phone] to schedule your appointment. Question Answer Reason [...] section and content) DATE CREATED AUTHOR 07/08/2019 [facility] ([place]) DATE CREATED AUTHOR AUTHOR'S ORGANIZ ATION 02/21/2024 [employer] DATE CREATED AUTHOR AUTHOR'S ORGANIZ ATION 06/11/2024 [facility] DATE CREATED AUTHOR AUTHOR'S ORGANIZ ATION 11/23/2024 [facility] DATE CREATED AUTHOR AUTHOR'S ORGANIZ ATION 06/14/2025 [facility] Reason for Visit (unrecogniz ed section and content) Reason Comments Fainting Per ems, family stat es patient passed out, +etoh and marijuana Specialty Diagnoses / Procedures Referred By Contac t Referred To Contact Emergency Medicine Diagnoses Peptic ulcer, site unspecified, unspecified as acute or chronic, without hemorrhage or perforation Procedures . [employer] [facility] [address] Phone: [phone] [employer] [place] [address] Phone: [phone] Referral ID Status Reason Start Date Expiration Date Visits Re quested Visits Authorized [id number] 3 3 Reason Onset Date Comments Left [...] Silver, RT)0800 (Automatically Held - Provider: Nano iSlver, RT)1200 (Automatically Held - Provider: Nano Silver, [...] Care Teams (unrecognized sec tion and content) Die Maker Electronic Relationship Specialty Start Date End Date Prateek Moscoso LISW [address] [place] [phone] Handbag Finisher Social Work 05/07/20 Die Maker Electronic Relationship Specialty Start Date End Date Prateek Moscoso LISW [address] [place] [address] Handbag Finisher Social Work 05/07/20 Team Status: Active Member Role Status Dates No Primary Care Physician Family Provider Active No Primary Care Physician Primary Care Provider Active Team Status: Inactive Member Role Status Dates Dr. Jose [place] , DO Attending Provider, Emergency P rovider [...] Care Physician Primary Care Provider Active Dr. Albret Carbone MD Emergency Provider Active Dr. Jeniffer Campos MD Admit Provider, Other Provider Active Dr. Virginie Aguillon MD Attending Provider Active Dr. Drew Solis MD Other Provider Active Die Maker Electronic Relationship Specialty Start Date End Date Prateek Moscoso LISW [address] [place] [address] Handbag Finisher Social Work 05/07/20 Die Maker Electronic Relationship Specialty Start Date End Date Prateek Moscoso LISW [address] [place] [address] Handbag Finisher Social Work 05/07/20 Die Maker Electronic Relationship Specialty Start Date End Date Prateek Moscoso LISW [address] [place] [address] Handbag Finisher Social Work 05/07/20 Die Maker Electronic Relationship Specialty Start Date End Date Prateek Moscoso LISW [address] [place] [address] Handbag Finisher Social Work 05/07/20 Die Maker Electronic Relationship Specialty Start Date End Date Hilton Johnson MD [address] [place] [address] PCP - General Family Medicine 03/15/23 Prateek Moscoso LISW [address] [place] [address] Handbag Finisher Social Work 05/07/20 Team Status: Active Member Role Status Dates No Primary Care Physician Primary Care Provider Active Dr. Virginie Aguillon MD Attending Provider, Referring Pr ovider Active Die Maker Electronic Relationship Specialty Start Date End Date Hilton Johnson MD [address] [place] [address] PCP - General Family Medicine 03/15/23 Prateek Moscoso LISW [address] [place] [address] Handbag Finisher Social Work 05/07/20 Die Maker Electronic Relationship Specialty Start Date End Date Hilton Johnson MD [address] [place] [address] PCP - General Family Medicine 03/15/23 Prateek Moscoso LISW [address] [place] [address] Handbag Finisher Social Work 05/07/20 Team Status: Inactive Member Role Status Dates No Primary Care Physician Primary Care Provider Active Dr. Charly Almonte DO Emergency Provider Active Die Maker Electronic Relationship Specialty Start Date End Date Hilton Johnson MD [address] [place] [address] PCP - General Family Medicine 03/15/23 Prateek Mosocso LSW [address] [place], [place] [id number] Handbag Finisher Social Work 05/07/20 Die Maker Electronic Relationship Specialty Start Date End Date Hilton Johnson MD [address] [place] [address] PCP - General Family Medicine 03/15/23 Prateek Moscoso LSW [address] [place], [place] [id number] Handbag Finisher Social Work 05/07/20 Die Maker Electronic Relationship Specialty Start Date End Date Hilton Johnson MD [address] [place] [id number] PCP - General Family Medicine 03/15/23 Prateek Moscoso LSW [address] [place] [address] Handbag Finisher Social Work 05/07/20 Die Maker Electronic Relationship Specialty Start Date End Date Hilton Johnson MD [address] [place] [id number] PCP - General Family Medicine 03/15/23 Prateek Moscoso LSW [address] [place] [address] Handbag Finisher Social Work 05/07/20 Goals (unrecognized section and [...] BE BASED ON THE PRIMARY CLINICAL RECORDS. [employer] [facility]. provides no warranty or guarantee of the accuracy or completeness of information in this document.
--- NOTE | 2025-07-25 08:45 | ED.RN ---
0720: unable to gain IV access. Dr owen. jose changed. rn from interventional radiology to look for access
[2025-07-25 08:46] LABS: Alcohol, Blood (Medical)-Serum < 10.1 mg/dL (<=10.0)
[2025-07-25 08:47] LABS: AST(SGOT) 26 U/L (<=31); Alanine Aminotransfer ALT/SGPT 12 U/L (<=34); Albumin, Serum 4.2 g/dL (3.4-4.8); Alkaline Phosphatase 92 U/L (35-104); Anion Gap 15 (7-18); BUN 11 mg/dL (4-19); BUN/Creat Ratio 9.9 RATIO (10-20); Calcium,Total 10.0 mg/dL (7.6-11.0); Carbon Dioxide 20.4 mmol/L (20.0-29.0); Chloride 101 mmol/L (96-106); Globulin 3.1 g/dL (2.2-4.2); Glucose 104 mg/dL (70-99); Lipase 31 U/L (13-75); Potassium 4.5 mmol/L (3.5-5.1); Troponin T High Sensitivity 13 ng/L (<=14)
[2025-07-25] MEDS: 0.9% Normal Saline (1000mL) 1,000 ML 125 ML IV (09:00)
[2025-07-25] MEDS: Pantoprazole Sodium 40 MG in 0.9% Normal Saline (100mL MB+) 100 ML 300 MG IV (09:00)
[2025-07-25 09:01] LABS: Hematocrit 30.3 % (37-47); Hemoglobin 9.3 g/dL (12.0-15.0); Immature Granulocytes Count 0.010 X10^3/uL (0.0-0.0); Mean Corp Hgb Conc 30.7 g/dL (32-36); Mean Corpuscular Volume 74.4 fL (81-99); Mean Platelet Vol. 8.4 fl (6.2-12.0); NRBC Flagged by Analyzer 0 % (0-5); POSITIVE MORPHOLOGY YES; Platelet Count 514 K/mm3 (150-450); RBC Distribution Width CV 26.8 % (11.6-14.6); RBC Distribution Width SD 69.4 fl (35.1-43.9); Red Blood Count 4.07 M/mm3 (4.2-5.4); White Blood Count 4.7 K/mm3 (4.4-11.0)
[2025-07-25 09:05] LABS: Differential Indicated SCAN CRITERIA MET
[2025-07-25 09:10] VITALS: BP 138/82; PULSE 89; RESP 18; O2SAT 97
[2025-07-25 09:33] LABS: Anisocytosis 2+
[2025-07-25 10:00] VITALS: BMI 26.1
[2025-07-25 10:12] LABS: Mucous, Urine 0 SEEN /hpf (<or=2+); Red Blood Cells-Urine 0 SEEN /hpf (0-5)
[2025-07-25 10:14] LABS: Color, Urine Yellow (Yellow); Glucose, Dipstick Normal (Normal); Ketone-Dipstick Negative (Negative); Leukocyte Esterase-Dipstick Negative /ul (Negative); Nitrite-Dipstick Negative (Negative); Occult Blood-Urine 25 /ul (Negative); Protein-Dipstick Negative (Negative); Specific Gravity, Urine 1.015 (1.002-1.030); Urine Bilirubin Dipstick Negative (Negative)
[2025-07-25 10:23] LABS: Squamous Epithelial Cells - UA 0-5 SEEN /hpf (5-10)
[2025-07-25 10:28] VITALS: BP 127/95; BP 131/81; BP 146/86; PULSE 64; PULSE 69; PULSE 76
[2025-07-25] MEDS: Lidocaine 2% Viscous15 ML UDC 15 ML PO (10:55)
[2025-07-25] MEDS: Mag /Aluminum/Simeth WCH UDC 30 ML ORAL.SUSP PO (10:55)
[2025-07-25 11:00] VITALS: BP 140/80; PULSE 88; RESP 18; O2SAT 98
[2025-07-25 12:27] VITALS: BP 148/68; PULSE 88; RESP 18; TEMP 36.6; O2SAT 96
== END 2025-07-25 12:28 | disposition home or self-care (01) ==
PROVIDERS: Emergency Provider Emergency Medicine; PCP Internal Medicine; Visit Provider Emergency Medicine
DX: R10.A2 Flank pain, left side (principal); F10.20 Alcohol dependence, uncomplicated; Y90.0 Blood alcohol level of less than 20 mg/100 ml; G89.29 Other chronic pain; D64.9 Anemia, unspecified; K21.9 Gastro-esophageal reflux disease without esophagitis; F17.210 Nicotine dependence, cigarettes, uncomplicated; F17.290 Nicotine dependence, other tobacco product, uncomplicated; Z98.84 Bariatric surgery status; Z79.899 Other long term (current) drug therapy
CPT/HCPCS: 36415; 71250; 74176; 80053; 81001; 82077; 83605; 83690; 84484; 85025; 93005; 99283; A4216; J2405